=== PATIENT | female | born 1995 | race Caucasian/White ===

== ENCOUNTER 2023-01-20 20:14 | Outpatient (REF) | payer OTHER, SELFPAY ==
[2023-01-24 09:09] LABS: Age Gdln ACOG Testing Note (.); IGP, rfx Aptima HPV ASCU Note (.)
== END 2023-01-20 20:15 | disposition home or self-care (01) ==
LOC: LAB 20:14
PROVIDERS: PCP Family Medicine; Visit Provider Obstetrics & Gynecology
DX: Z12.4 Encounter for screening for malignant neoplasm of cervix (principal); Z11.51 Encounter for screening for human papillomavirus (HPV)
CPT/HCPCS: G0145

== ENCOUNTER 2023-02-04 13:58 | Outpatient (OUT) | payer OTHER, SELFPAY ==
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
--- NOTE | 2023-02-04 14:04 | US_ITS ---
The [address] [address] Patient Name: KISHAN RAMSEY MRN: [id number] date: 1995 Sex: F Assigned Patient Location: [place] Current Patient Location: [place] Accession/Order Number: [id number] Exam Date: 02/04/2023 14:05 Report Date: 02/04/2023 15:32 At the request of: CLAUDE KHAN Procedure: US abdomen limited EXAM: US abdomen limited HISTORY: Low back pain M54.50, right side lump COMPARISON: None. TECHNIQUE: Real-time right lower back ultrasound. Findings: Within the subcutaneous fat of the right lower back there is a 3.3 x 0.5 x 3.0 cm echogenic and heterogeneous lesion with similar architecture to the adjacent subcutaneous fat. No significant interval blood flow. US/US abdomen limited IMPRESSION: 1. Sonographic findings suggest a possible lipoma. If clinical findings are not consistent with a lipoma or there has been rapid increase in size or new pain in this area, recommend further characterization with MR without and with intravenous contrast. Electronically authenticated by: MANISH LUJAN Date: 02/04/2023 15:32
== END 2023-02-04 13:59 | disposition home or self-care (01) ==
LOC: US 13:58
PROVIDERS: PCP Family Medicine; Visit Provider Nurse Practitioner Family
DX: M54.2 Cervicalgia (principal); M54.50 Low back pain, unspecified
CPT/HCPCS: 72040; 76705

== ENCOUNTER 2023-02-16 12:42 | Outpatient (RCR) | payer OTHER, SELFPAY | END 2023-03-12 15:37 | disposition home or self-care (01) | LOC: PT 12:42 | PROVIDERS: PCP Family Medicine; Visit Provider Nurse Practitioner Family | DX: M54.2 Cervicalgia (principal) | CPT/HCPCS: 97110; 97140; 97161 ==

== ENCOUNTER 2023-12-13 10:41 | Emergency (ER) | payer OTHER, SELFPAY ==
[2023-12-13 10:49] VITALS: BP 118/71; PULSE 90; TEMP 36.8; O2SAT 99; BMI 25.8
--- OUTSIDE RECORDS SUMMARY | 2023-12-13 10:53 | XMS_ITS | CCD ---
Author Organization [facility] Care Team Providers Care Housing Installer Name Role Phone KIM SUTHERLAND Unavailable Unavailable WILLY CONKLIN Unavailable Unavailable HOMAR LEWIS Unavailable Unavailable HOMAR LEWIS Unavailable Unavailable No, Physician Primary Care Provider Unavailabl e FINN, PHYSICIAN Primary Care Unavailable JAMES ALCAZAR Attending Unavailable Unavailable Primary Care Provider Unavailabl e Queta Osorio DO Primary Care Provider Bret Long Unavailable RICE RICE, QUETA QUETA M~[id number] Attending Unavailable RICE RICE, QUETA QUETA M~[id number] Primary Ca re Unavailable RICE RICE, QUETA QUETA M~[id number] Attending Unavailable RICE RICE, QUETA QUETA M~[id number] Primary Ca re Unavailable RICE RICE, QUETA QUETA M~[id number] Attending Unavailable RICE RICE, QUETA QUETA M~[id number] Primary Ca re Unavailable RICE RICE, QUETA QUETA M~[id number] Attending Unavailable RICE RICE, QUETA QUETA M~[id number] Primary Ca re Unavailable RICE RICE, QUETA QUETA M~[id number] Referring Unavailable RICE RICE, QUETA QUETA M~[id number] Primary Ca re Unavailable ITA REYES Admitting Unavailable Marco Campos Consulting Unavailable ITA REYES Attending Unavailable HOY ., DR GRAF Primary Care Unavailable ITA REYES Consulting Unavailable HOY ., DR GRAF Primary Care Unavailable HOY ., DR GARF Admitting Unavailable HOY ., DR GRAF Attending Unavailable HOY ., DR GRAF Primary Care Unavailable HOY ., DR GRAF Admitting Unavailable HOY ., DR GRAF Attending Unavailable HOY ., DR GRAF Consulting Unavailable HOY ., DR GRAF Primary Care Unavailable HOY ., DR GRAF Consulting Unavailable HOY ., DR GRAF Admitting Unavailable HOY ., DR GRAF Attending Unavailable HOY ., DR GRAF Primary Care Unavailable HOY ., DR GRAF Consulting Unavailable HOY ., DR GRAF Admitting Unavailable HOY ., DR GRAF Attending Unavailable HOY ., DR GRAF Primary Care Unavailable HOY ., DR GRAF Admitting Unavailable HOY ., DR GRAF Attending Unavailable HOY ., DR GRAF Consulting Unavailable HOY ., DR GRAF Admitting Unavailable HOY ., DR GRAF Attending Unavailable HOY ., DR GRAF Consulting Unavailable HOY ., DR GRAF Primary Care Unavailable CLAUDE KHAN Primary Care Physician Gary MORRIS Attending Unavailable Alexandr Bourgeois Attending Unavailab Alexandr Ventura Admitting Unavailab Homar Mcgowan Primary Care Unavailable Allergies Allergy Classification Reported Allergen(s) Allergy Type Date of Onset Reaction(s) Facility (1 source) No Known Medication Allergies; Translations: [No Known Medication Allergies] Propensity to adverse reactions (disorder) [facility] Medications Current Medications Medication Drug Class(es) Dates Sig (Normalized) Sig (Original) busPIRone hydrochloride 10 mg oral tablet (5 sources) Start: 12-11-2021 End: 02-09-2022 take 1 tablet by mouth three times daily busPIRone (BUSPAR) 10 mg tablet Indications: Anxiety Take 1 tablet (10 mg total) by mouth 3 (three) times a day. 90 each 1 12/11/2021 Active Start: 11-27-2021 End: 01-26-2022 take 1 tablet by mouth twice daily busPIRone (BUSPAR) 10 mg tablet Indications: Anxiety Take 1 tablet (10 mg total) by mouth 2 (two) times a day. 60 each 1 11/27/2021 01/26/2022 Active dicyclomine hydrochloride 10 mg oral capsule (5 sources) Anticholinergic Start: 02-27-2023 Bentyl 10 mg C ap Refills(s) 0 Start Date: 02/27/23 Status: Ordered Start: 08-10-2021 take 1 tablet by peter th three times daily, then take 1 tablet by mouth three times daily dicyclomine (BENTYL) 20 mg tablet Take 1 tablet by mouth 3 (three) times a day. Take 1 Tablet three times a day for cramping 0 08/10/2021 Active hyoscyamine sulfate 0.125 mg oral tablet (5 sources) Start: 02-27-2023 Levsin 0.125 m g SL Tab Refills(s) 0 Start Date: 02/27/23 Status: Ordered Start: 02-02-2021 hyoscyamine (L EVSIN) 0.[address] 1 tablet under the tongue 4 (four) times a day. 0 02/02/2021 Active take 1 tablet under the tongue four times daily as needed Hyoscyamine Sulfate SL 0.125 MG 1 tablet under the tongue and allow to dissolve as needed Sublingual qid Active ibuprofen 800 mg oral tablet (4 sources) Nonsteroidal Anti-inflammatory Drug Start: 02-19-2017 take 1 tablet by mouth every eight hours ibuprofen (ADVIL,MOTRIN) 800 mg tablet Take 1 tablet by mouth every 8 (eight) hours if needed. 0 02/19/2017 Active Norethindrone (1 source) Start: 11-16-2020 norethindrone (MICRONOR) 0.35 mg tablet ondansetron 4 mg oral tablet (6 sources) Serotonin-3 Receptor Antagonist Start: 02-27-2023 Zofran 4 mg Tab Refills(s) 0 Start Date: 02/27/23 Status: Ordered Start: 12-05-2021 End: 01-19-2022 take 2 tablets by mouth every eight hours for nausea ondansetron ODT (ZOFRAN-ODT) 4 mg dispersible tablet Take 2 tablets (8 mg total) by mouth every 8 (eight) hours if needed for nausea. 20 tablet 0 01/20/2022 Active take 1 tablet by peter th every eight hours as needed Ondansetron 8 MG 1 tablet on the tongue and allow to dissolve Orally q8h prn Active sertraline 25 mg oral tablet (3 sources) Serotonin Reuptake Inhibitor Start: 01-08-2022 End: 03-09-2022 take 1 tablet by mouth once daily sertraline (ZOLOFT) 25 mg tablet Indications: Anxiety Take 1 tablet (25 mg total) by mouth 1 (one) time each day. 30 each 1 01/08/2022 03/09/2022 Active valACYclovir 1000 mg oral tablet (1 source) Herpesvirus Nucleoside Analog DNA Polymerase Inhibitor, Herpes Simplex Virus Nucleoside Analog DNA Polymerase Inhibitor, Herpes Zoster Virus Nucleoside Analog DNA Polymerase Inhibitor Start: 12-05-2020 End: 12-15-2020 take 1 tablet by mouth twice daily valACYclovir (Valtrex) 1000 MG tablet Take 1 (one) tablet (1,000 mg total) by mouth 2 (two) times a day for 10 days . 20 tablet 0 12/05/2020 12/15/2020 Active Problems Active Problems Problem Classification Problem Date Documented Da te Episodic/Chronic Anxiety disorders (5 sources) Anxiety; Translations: [Anxiety disorder, unspecified] Onset: 11-13-2022 Chronic Deficiency and other anemia (1 source) Anemia, unspecified; Translations: [ANEMIA UNSPECIFIED] Onset: 11-13-2022 Episodic Diabetes mellitus without complication (1 source) Other abnormal glucose; Translations: [OTHER ABNORMAL GLUCOSE] Onset: 11-13-2022 Episodic Headache; including migraine (2 sources) Migraine, unspecified, not intractable, without status migrainosus; Translations: [Migraine] Onset: 11-13-2022 02-23-2023 Chronic Malaise and fatigue (1 source) Other fatigue; Translations: [OTHER FATIGUE] Onset: 11-13-2022 Episodic Other and unspecified benign neoplasm (1 source) Lipoma of skin and subcutaneous tissue of trunk; Translations: [Benign lipomatous neoplasm of skin and subcutaneous tissue of trunk] Onset: 02-27-2023 Episodic Other and unspecified benign neoplasm (1 source) Lipoma of lower back 02-27-2023 Episodic Other circulatory disease (1 source) Low blood pressure; Translations: [Hypotension, unspecified] Episodic Other female genital disorders (1 source) Vaginal lesion; Translations: [Other specified noninflammatory disorders of vagina] Episodic Other gastrointestinal disorders (1 source) Irritable bowel syndrome with diarrhea; Translations: [Irritable bowel syndrome with diarrhea] Chronic Other gastrointestinal disorders (1 source) Irritable bowel syndrome with diarrhea Onset: 12-10-2021 Resolved: 12-10-2021 Chronic Other nutritional; endocrine; and metabolic disorders (1 source) Overweight 02-23-2023 Episodic Other nutritional; endocrine; and metabolic disorders (1 source) Overweight in adulthood with body mass index of 25 or more but less than 30 02-27-2023 Episodic Other upper respiratory infections (5 sources) Acute recurrent frontal sinusitis; Translations: [ACUTE RECURRENT FRONTAL SINUSITIS] Onset: 05-28-2022 Episodic Residual codes; unclassified (1 source) Chronic pain 02-23-2023 Episodic Residual codes; unclassified (1 source) Insomnia 02-23-2023 Episodic Spondylosis; intervertebral disc disorders; other back problems (1 source) Neck pain 02-23-2023 Episodic Unclassified (4 sources) CONTACT W/AND (SUSP) EXPOS COVID-19; Translations: [CONTACT W/AND (SUSP) EXPOS COVID-19] Onset: 08-12-2022 Unclassified (3 sources) LOW BACK PAIN, UNSPECIFIED; Translations: [LOW BACK PAIN, UNSPECIFIED] Onset: 05-26-2022 Past or Other Problems Problem Classification Problem Date Documented Da te Episodic/Chronic Abdominal pain (1 source) Epigastric pain Onset: 12-10-2021 Resolved: 12-10-2021 Episodic Nausea and vomiting (1 source) Nausea Onset: 12-10-2021 Resolved: 12-10-2021 Episodic Nonspecific chest pain (1 source) Other chest pain; Translations: [Other chest pain] Onset: 02-19-2017 Episodic Other non-traumatic joint disorders (4 sources) Pain in left knee; Translations: [PAIN IN LEFT KNEE] Onset: 04-24-2022 Episodic Residual codes; unclassified (1 source) Family history of other specified conditions Onset: 12-10-2021 Resolved: 12-10-2021 Episodic Residual codes; unclassified (1 source) Insomnia, unspecified; Translations: [INSOMNIA UNSPECIFIED] Onset: 04-27-2022 Episodic Residual codes; unclassified (1 source) Carrier of cystic fibrosis gene mutation Onset: 12-31-2016 02-23-2023 Episodic Residual codes; unclassified (1 source) History of pre-eclampsia Onset: 08-31-2019 02-23-2023 Episodic Unclassified (1 source) CONTACT W/AND (SUSP) EXPOS COVID-19; Translations: [CONTACT W/AND (SUSP) EXPOS COVID-19] Onset: 08-14-2022 Unclassified (1 source) LOW BACK PAIN, UNSPECIFIED; Translations: [LOW BACK PAIN, UNSPECIFIED] Onset: 05-22-2022 Results Test Name Value Interpretation Reference Range Facility Facesheeton 03-02-2023 Facesheet [id number] CD:127 Normal [facility] Ambulatory Visit Summaryon 0 02-27-2023 Ambulatory Visit Summary LESLIE FORD :1995 Visit Date:02/27/2023 Ambulatory Visit Instructions Your Care Team Attending Physician - ALEXANDRA RANGEL, Gary Howell Primary Care Physician - CLAUDE KHAN CNP This Is Your Medications List Contact prescribing physician if questions or concerns dicyclomine (Bentyl 10 mg Cap) hyoscyamine (Levsin 0.125 mg SL Tab) ondansetron (Zofran 4 mg Tab) Procedures Performed None. Discharge Vitals Heart Rate (Peripheral) 70 Respiratory Rate 16 Blood Pressure 106/66 Height 165.1 cm Height 65 in Weight 75.1 kg Weight 165.22 lb BMI 27.55 Medications What When Instructions Unchanged dicyclomine (Bentyl 10 mg Cap) Contact prescribing physician if questions or concerns Unchanged hyoscyamine (Levsin 0.125 mg SL Tab) Contact prescribing physician if questions or concerns Unchanged ondansetron (Zofran 4 mg Tab) Contact prescribing physician if questions or concerns Allergies No Known Allergies No Known Medication Allergies Problems Ongoing - Any problem that you are currently receiving treatment for. Anxiety BMI 27.0-27.9,adult Carrier of cystic fibrosis gene mutation Cervicalgia Chronic pain History of pre-eclampsia Insomnia Migraines Overweight Normal [facility] RAD - Ultrasound Reporton RAD - Ultrasound Report [id number] D:127 Normal [facility] Physician Referralon 023 Physician Referral [id number] D:127 Normal [facility] INSULINon 11-08-2022 Insulin 7.7 uIU/mL Normal 2.6-24.9 [facility] Comment on above: Performed By: #### V ITAD, IRON #### [facility] [address] [place] [address] Dr. Chucho Jesus CBC AUTO DIFFon 11-07-2022 BASO # 0.0 103/ul Normal 0.0-0.1 [facility] Comment on above: Performed By: #### V ITAD, IRON #### [facility] [address] [place] [address] Dr. Chucho Jesus Basophils/100 WBC (Bld) 0.6 % Normal 0.2-2.0 [facility] Comment on above: Performed By: #### V ITAD, IRON #### [facility] [address] [place] [address] Dr. Chucho Jesus EO # 0.1 103/ul Normal 0.0-0.7 [facility] Comment on above: Performed By: #### V ITAD, IRON #### [facility] [address] [place] [address] Dr. Chucho Jesus Eosinophils/100 WBC (Bld) 1.4 % Normal 0.9-7.0 [facility] Comment on above: Performed By: #### V ITAD, IRON #### [facility] [address] [place] [address] Dr. Chucho Jesus Erythrocyte distribution width (RBC) [Ratio] 13.9 % Normal 11.0-15.0 [facility] Comment on above: Performed By: #### V ITAD, IRON #### [facility] [address] [place] [address] Dr. Chucho Jesus Hematocrit (Bld) [Volume fraction] 45.6 % Normal 36.0-48.0 [facility] Comment on above: Performed By: #### V ITAD, IRON #### [facility] [address] [place] [address] Dr. Chucho Jesus Hemoglobin (Bld) [Mass/Vol] 15.1 g/dL Normal 12.0-16.0 [facility] Comment on above: Performed By: #### V ITAD, IRON #### [facility] [address] [place] [address] Dr. Chucho Jesus IG # 0.01 10e3/ul Normal 0.00-0.03 [facility] Comment on above: Performed By: #### V ITAD, IRON #### [facility] [address] [place] [address] Dr. Chucho Jesus IG % 0.1 % Normal 0.0-0.5 [facility] Comment on above: Performed By: #### V ITAD, IRON #### [facility] [address] [place] [address] Dr. Chucho Jesus LYMPH # 1.9 103/ul Normal 1.2-3.8 [facility] Comment on above: Performed By: #### V ITAD, IRON #### [facility] [address] [place] [address] Dr. Chucho Jesus Lymphocytes/100 WBC (Bld) 26.3 % Normal 20.5-60.0 [facility] Comment on above: Performed By: #### V ITAD, IRON #### [facility] [address] [place] [address] Dr. Chucho Jesus MANUAL DIFF REQ NO Normal [facility] Comment on above: Performed By: #### V ITAD, IRON #### [facility] [address] [place] [address] Dr. Chucho Jesus MCH (RBC) [Entitic mass] 27.9 pg Normal 26.7-34.0 [facility] Comment on above: Performed By: #### V ITAD, IRON #### [facility] [address] [place] [address] Dr. Chucho Jesus MCHC (RBC) [Mass/Vol] 33.1 g/dL Normal 29.9-35.2 [facility] Comment on above: Performed By: #### V ITAD, IRON #### [facility] [address] [place] [address] Dr. Chucho Jesus MCV (RBC) [Entitic vol] 84.1 fL Normal 81.0-99.0 [facility] Comment on above: Performed By: #### V ITAD, IRON #### [facility] [address] [place] [address] Dr. Chucho Jesus MONO # 0.5 103/ul Normal 0.3-0.8 [facility] Comment on above: Performed By: #### V ITAD, IRON #### [facility] [address] [place] [address] Dr. Chucho Jesus Monocytes/100 WBC (Bld) 7.3 % Normal 1.7-12.0 [facility] Comment on above: Performed By: #### V ITAD, IRON #### [facility] [address] [place] [address] Dr. Chucho Jesus NEUT # 4.6 103/ul Normal 1.4-6.5 [facility] Comment on above: Performed By: #### V ITAD, IRON #### [facility] [address] [place] [address] Dr. Chucho Jesus Neutrophils/100 WBC (Bld) 64.3 % Normal 43.0-75.0 [facility] Comment on above: Performed By: #### V ITAD, IRON #### [facility] [address] [place] [address] Dr. Chucho Jesus Platelet mean volume (Bld) [Entitic vol] 10.9 fL Normal 9.5-13.5 [facility] Comment on above: Performed By: #### V ITAD, IRON #### [facility] [address] [place] [address] Dr. Chucho Jesus PLT 226 103/ul Normal 150-450 [facility] Comment on above: Performed By: #### V ITAD, IRON #### [facility] [address] [place] [address] Dr. Chucho Jesus RBC 5.42 106/ul Critically high 4.20-5.40 [facility] Comment on above: Performed By: #### V ITAD, IRON #### [facility] [address] [place] [address] Dr. Chucho eJsus WBC 7.2 103/ul Normal 4.0-11.0 [facility] Comment on above: Performed By: #### V ITAD, IRON #### [facility] [address] [place] [address] Dr. Chucho Jesus FREE THYROXINE INDEX T7on FTI 3.29 Normal 1.30-4.50 [facility] Comment on above: Performed By: #### V ITAD, IRON #### [facility] [address] [address] [address] Chucho Jesus T3U 35.0 % Normal 30.0-39.0 [facility] Comment on above: Performed By: #### V ITAD, IRON #### [facility] [address] [address] [address] Chucho Jesus T4 [Mass/Vol] 9.40 ug/dL Normal 4.80-13.90 [facility] Comment on above: Performed By: #### V ITAD, IRON #### [facility] [address] [address] [address] Chucho Jesus GLYCOHEMOGLOBIN A1Con 2022 ADA RECOMMENDATION SEE BELOW Normal [facility] Comment on above: Result Comment: ADA RECOMMENDED LIMIT 4.0 - 6.0 ADA THERAPEUTIC TARGET < 7.0 ACTION SUGGESTED > 7.0 Performed By: #### A 1C #### [facility] [address] [address] [address] Chucho Jesus Glucose [Mass/Vol] 94 mg/dL Normal [facility] Comment on above: Performed By: #### A 1C #### [facility] [address] [address] [address] Chucho Jesus HbA1c (Bld) [Mass fraction] 4.9 % Normal 4.5-6.2 [facility] Comment on above: Performed By: #### A 1C #### [facility] [address] [address] [address] Chucho Jesus IRONon 11-07-2022 Iron [Mass/Vol] 81.0 ug/dL Normal 50.0-170.0 [facility] Comment on above: Performed By: #### V ITAD, IRON #### [facility] [address] [address] [address] Chucho Jesus LIPID PROFILEon 11-07-2022 CHOL-HDL RATIO NORM SEE BELOW Normal [facility] Comment on above: Result Comment: 3.3 - 4.4 LOW RISK 4.4 - 7.1 AVERAGE RISK 7.1 - 11.0 MODERATE RISK >11.0 HIGH RISK Performed By: #### V ITAD, IRON #### [facility] [address] [address] [address] Chucho Jesus Cholesterol [Mass/Vol] 126 mg/dL Normal <=200 [facility] Comment on above: Performed By: #### V ITAD, IRON #### [facility] [address] [address] [address] Chucho Jesus Cholesterol in HDL [Mass/Vol] 38 mg/dL Critically low 40-60 [facility] Comment on above: Performed By: #### V ITAD, IRON #### [facility] [address] [address] [address] Chucho Jesus Cholesterol in LDL [Mass/Vol] 79.4 mg/dL Normal [facility] Comment on above: Performed By: #### V ITAD, IRON #### [facility] [address] [address] [address] Chucho Jesus Cholesterol.total/C holesterol in HDL [Mass ratio] 3.3 {ratio} Normal [facility] Comment on above: Performed By: #### V ITAD, IRON #### [facility] [address] [address] [address] Chucho Jesus HDL NORMAL > or = 60 mg/dl - LO W CARDIOVASCULAR RISK <40 mg/dl - HIGH CARDIOVASCULAR RISK Normal [facility] Comment on above: Performed By: #### V ITAD, IRON #### [facility] [address] [address] [address] Chucho Jesus LDL CALC NORMAL SEE BELOW Normal [facility] Comment on above: Result Comment: <100 mg/dl OPTIMAL 100 - 129 mg/dl NEAR OR ABOVE OPTIMAL 130 - 159 mg/dl BORDERLINE HIGH 160 - 189 mg/dl HIGH >190 mg/dl VERY HIGH Performed By: #### V ITAD, IRON #### [facility] [address] [address] [address] Chucho Jesus Triglyceride [Mass/Vol] 43 mg/dL Normal <=150 [facility] Comment on above: Performed By: #### V ITAD, IRON #### [facility] [address] [place] [address] Dr. Chucho Jesus VLDL CALC 8.6 mg/dL Normal [facility] Comment on above: Performed By: #### V ITAD, IRON #### [facility] [address] [place] [address] Dr. Chucho Jesus PROF 14(COMP METB)on 023 Albumin [Mass/Vol] 4.2 g/dL Normal 3.4-5.0 [facility] Comment on above: Performed By: #### V ITAD, IRON #### [facility] [address] [place] [address] Dr. Chucho Jesus Albumin/Globulin [Mass ratio] 1.1 {ratio} Normal [facility] Comment on above: Performed By: #### V ITAD, IRON #### [facility] [address] [place] [address] Dr. Chucho Jesus ALP [Catalytic activity/Vol] 93 U/L Normal 46-116 [facility] Comment on above: Performed By: #### V ITAD, IRON #### [facility] [address] [place] [address] Dr. Chucho Jesus ALT [Catalytic activity/Vol] 16 U/L Normal 14-59 [facility] Comment on above: Performed By: #### V ITAD, IRON #### [facility] [address] [place] [address] Dr. Chucho Jesus Anion gap [Moles/Vol] 14.3 mmol/L Normal [facility] Comment on above: Performed By: #### V ITAD, IRON #### [facility] [address] [place] [address] Dr. Chucho Jesus AST [Catalytic activity/Vol] 16 U/L Normal 15-37 [facility] Comment on above: Performed By: #### V ITAD, IRON #### [facility] [address] [place] [address] Dr. Chucho Jesus Bilirubin [Mass/Vol] 1.0 mg/dL Normal 0.2-1.0 [facility] Comment on above: Performed By: #### V ITAD, IRON #### [facility] [address] [place] [address] Dr. Chucho Jesus Calcium [Mass/Vol] 9.4 mg/dL Normal 8.5-10.1 [facility] Comment on above: Performed By: #### V ITAD, IRON #### [facility] [address] [place] [address] Dr. Chucho Jesus Chloride [Moles/Vol] 103 mmol/L Normal 98-107 [facility] Comment on above: Performed By: #### V ITAD, IRON #### [facility] [address] [place] [address] Dr. Chucho Jesus CO2 [Moles/Vol] 24.9 mmol/L Normal 21.0-32.0 [facility] Comment on above: Performed By: #### V ITAD, IRON #### [facility] [address] [place] [address] Dr. Chucho Jesus Creatinine [Mass/Vol] 0.68 mg/dL Normal 0.55-1.02 [facility] Comment on above: Performed By: #### V ITAD, IRON #### [facility] [address] [place] [address] Dr. Chucho Jesus EGFR-AF LIBYAN >60 Normal >=60 [facility] Comment on above: Performed By: #### V ITAD, IRON #### [facility] [address] [place] [address] Dr. Chucho Jesus EGFR-NON AF LIBYAN >60 Normal >=60 [facility] Comment on above: Performed By: #### V ITAD, IRON #### [facility] [address] [place] [address] Dr. Chucho Jesus Globulin (S) [Mass/Vol] 3.9 g/dL Normal [facility] Comment on above: Performed By: #### V ITAD, IRON #### [facility] [address] [place] [address] Dr. Chucho Jesus Glucose [Mass/Vol] 89 mg/dL Normal 74-106 [facility] Comment on above: Performed By: #### V AMAURY, IRON #### [facility] [address] [place] [address] Dr. Chucho Jesus Potassium [Moles/Vol] 4.2 mmol/L Normal 3.5-5.1 [facility] Comment on above: Performed By: #### V ITAD, IRON #### [facility] [address] [place] [address] Dr. Chucho Jesus Protein [Mass/Vol] 8.1 g/dL Normal 6.4-8.2 [facility] Comment on above: Performed By: #### V AMAURY, IRON #### [facility] [address] [place] [address] Dr. Chucho Jesus Sodium [Moles/Vol] 138 mmol/L Normal 136-145 [facility] Comment on above: Performed By: #### V AMAURY, IRON #### [facility] [address] [place] [address] Dr. Chucho Jesus Urea nitrogen [Mass/Vol] 9.0 mg/dL Normal 7.0-18.0 [facility] Comment on above: Performed By: #### V AMAURY, IRON #### [facility] [address] [place] [address] Dr. Chucho Jesus Urea nitrogen/Creatinine [Mass ratio] 13.2 mg/mg Normal [facility] Comment on above: Performed By: #### V AMAURY, IRON #### [facility] [address] [place] [address] Dr. Chucho Jesus TSHon 11-07-2022 TSH 1.668 uIU/mL Normal 0.358-3.740 [facility] Comment on above: Performed By: #### V ITSONIYA, IRON #### [facility] [address] [place] [address] Dr. Chucho Jesus [facility]19 [facility]on SARS-CoV-2 (COVID-19) RNA DMITRY+probe Ql (Unsp spec) Not detected Normal NOT DETECTED [facility] Comment on above: Result Comment: When diagnostic testing is negative, the possibility of a false negative should be considered in the context of a patient's recent exposures and the presence of clinical signs and symptoms consistent with SARS-CoV-2. This test is not yet approved or cleared by the [place] FDA. When there are no FDA-approved or cleared tests available, and other criteria are met, FDA can make tests available under an emergency access mechanism called an Emergency Use Authorization (EUA). The EUA for this test is supported by the [place] of Health and Human Service's declaration that circumstances exist to justify the emergency use of in vitro diagnostics for the detection and/or diagnosis of the virus that causes COVID-19. This EUA will remain in effect for the duration of the COVID-19 declaration justifying emergency of IVDs, unless it is terminated or revoked by the FDA (after which the test may no longer be used). Performed By: #### V ITAD, IRON #### [facility] [address] [place] [address] Dr. Chucho Jesus Covid-19 PCR ([facility])on SARS-CoV-2 (COVID-19) RNA DMITRY+probe Ql (Unsp spec) Not detected Normal NOT DETECTED [facility] Comment on above: Result Comment: When diagnostic testing is negative, the possibility of a false negative should be considered in the context of a patient's recent exposures and the presence of clinical signs and symptoms consistent with SARS-CoV-2. This test is not yet approved or cleared by the [place] FDA. When there are no FDA-approved or cleared tests available, and other criteria are met, FDA can make tests available under an emergency access mechanism called an Emergency Use Authorization (EUA). The EUA for this test is supported by the [place] of Health and Human Service's declaration that circumstances exist to justify the emergency use of in vitro diagnostics for the detection and/or diagnosis of the virus that causes COVID-19. This EUA will remain in effect for the duration of the COVID-19 declaration justifying emergency of IVDs, unless it is terminated or revoked by the FDA (after which the test may no longer be used). Performed By: #### C VDTBH #### [facility] [address] [place] [address] Dr. Chucho Jesus INFLUENZA A AND B AGon 08-11 [facility] SEE BELOW Normal [facility] Comment on above: Result Comment: Nega tive for Flu A protein angiten. Infection due to Flu A cannot be ruled out. Flu A angiten in the sample may be below the detection limit of the test. Performed By: #### I NFLUAB #### [facility] [address] [place] [address] Dr. Chucho Jesus INFLUBNEG SEE BELOW Normal [facility] Comment on above: Result Comment: Nega tive for Flu B protein antigen. Infection due to Flu B cannot be ruled out. Flu B antigen in the sample may be below the detection limit of the test. Performed By: #### I NFLUAB #### [facility] [address] [place] [address] Dr. Chucho Jesus INFLUENZA A AG Negative Normal NEGATIVE SEE COMMENT [facility] Comment on above: Performed By: #### I NFLUAB #### [facility] [address] [place] [address] Dr. Chucho Jesus INFLUENZA B AG Negative Normal NEGATIVE SEE COMMENT [facility] Comment on above: Performed By: #### I NFLUAB #### [facility] [address] [place] [address] Dr. Chucho Jesus Covid-19 PCR ([facility])on 05-07 SARS-CoV-2 (COVID-19) RNA DMITRY+probe Ql (Unsp spec) Not detected Normal NOT DETECTED [facility] Comment on above: Result Comment: When diagnostic testing is negative, the possibility of a false negative should be considered in the context of a patient's recent exposures and the presence of clinical signs and symptoms consistent with SARS-CoV-2. This test is not yet approved or cleared by the [place] FDA. When there are no FDA-approved or cleared tests available, and other criteria are met, FDA can make tests available under an emergency access mechanism called an Emergency Use Authorization (EUA). The EUA for this test is supported by the [employer] of Health and Human Service's declaration that circumstances exist to justify the emergency use of in vitro diagnostics for the detection and/or diagnosis of the virus that causes COVID-19. This EUA will remain in effect for the duration of the COVID-19 declaration justifying emergency of IVDs, unless it is terminated or revoked by the FDA (after which the test may no longer be used). Performed By: #### V ITAD, IRON #### [facility] [address] [place] [address] Dr. Chucho Jesus INFLUENZA A AND B AGon 05-26 INFLUANEGH SEE BELOW Normal [facility] Comment on above: Result Comment: Nega tive for Flu A protein angiten. Infection due to Flu A cannot be ruled out. Flu A angiten in the sample may be below the detection limit of the test. Performed By: #### V ITAD, IRON #### [facility] [address] [place] [address] Dr. Chucho Jesus INFLUBNEGH SEE BELOW Normal [facility] Comment on above: Result Comment: Nega tive for Flu B protein antigen. Infection due to Flu B cannot be ruled out. Flu B antigen in the sample may be below the detection limit of the test. Performed By: #### V ITAD, IRON #### [facility] [address] [place] [address] Dr. Chucho Jesus INFLUENZA A AG Negative Normal NEGATIVE SEE COMMENT [facility] Comment on above: Performed By: #### V ITAD, IRON #### [facility] [address] [place] [address] Dr. Chucho Jesus INFLUENZA B AG Negative Normal NEGATIVE SEE COMMENT [facility] Comment on above: Performed By: #### V ITAD, IRON #### [facility] [address] [place] [address] Dr. Chucho Jesus INTERNAL CONTROLS Within Normal Limits Normal Wi thin Normal Limits [facility] Comment on above: Performed By: #### V ITAD, IRON #### [facility] [address] [place] [address] Dr. Chucho Jesus ER URINE PROFILEon 2 Bilirubin Ql (U) Negative Normal NEGATIVE [facility] Comment on above: Performed By: #### V ITAD, IRON #### [facility] [address] [address] [address] Chucho Jesus Clarity (U) CLEAR Normal CLEAR [facility] Comment on above: Performed By: #### V ITAD, IRON #### [facility] [address] [place] [address] Dr. Chucho Jesus Color (U) YELLOW Normal YELLOW [facility] Comment on above: Performed By: #### V ITAD, IRON #### [facility] [address] [place] [address] Dr. Chucho BAHENA A micrscopic examination will be performed if indicated. Normal [facility] Comment on above: Performed By: #### V ITAD, IRON #### [facility] [address] [place] [address] Dr. Chucho Jesus Glucose Ql (U) Negative Normal NEGATIVE The [facility] Comment on above: Performed By: #### V ITAD, IRON #### [facility] [address] [place] [address] Dr. Chucho Jesus Hemoglobin Ql (U) Negative Normal NEGATIVE [facility] Comment on above: Performed By: #### V ITAD, IRON #### [facility] [address] [place] [address] Dr. Chucho Jesus Ketones Ql (U) >=80 Abnormal NEGATIVE The [facility] Comment on above: Performed By: #### V ITAD, IRON #### [facility] [address] [place] [address] Dr. Chucho Jesus LEUKOCYTES Negative Normal NEGATIVE [facility] Comment on above: Performed By: #### V ITAD, IRON #### [facility] [address] [place] [address] Dr. Chucho Jesus Nitrite Ql (U) Negative Normal NEGATIVE [facility] Comment on above: Performed By: #### V ITAD, IRON #### [facility] [address] [place] [address] Dr. Chucho Jesus pH (U) 6.0 [pH] Normal 5-9 [facility] Comment on above: Performed By: #### V ITAD, IRON #### [facility] [address] [address] [address] Chucho Jesus Protein (U) [Mass/Vol] 100 mg/dL Abnormal NEGATIVE/ TRACE [facility] Comment on above: Performed By: #### V ITAD, IRON #### [facility] [address] [place] [address] Dr. Chucho Jesus SPEC GRAVITY >=1.030 Abnormal 1.005-<=1.025 [facility] Comment on above: Performed By: #### V ITAD, IRON #### [facility] [address] [place] [address] Dr. Chucho Jesus UR MICRO IND INDICATED Normal [facility] Comment on above: Performed By: #### V ITAD, IRON #### [facility] [address] [place] [address] Dr. Chucho Jesus Urobilinogen Qn (U) 0.2 {[place]'U}/dL Normal 0.2 - 1. 0 [facility] Comment on above: Performed By: #### V ITAD, IRON #### [facility] [address] [place] [address] Dr. Chucho Jesus URon 05-22-2022 , QUAL Negative Normal NEGATIVE [facility] Comment on above: Performed By: #### V ITAD, IRON #### [facility] [address] [place] [address] Dr. Chucho Jesus URINE MICROSCOPIC ONLYon BACTERIA NONE SEEN Normal NONE SEEN [facility] Comment on above: Performed By: #### V ITAD, IRON #### [facility] [address] [place] [address] Dr. Chucho Jesus Bacteria identified Cx Nom (U) NOT INDICATED Normal [facility] Comment on above: Performed By: #### V ITAD, IRON #### [facility] [address] [place] [address] Dr. Chucho Jesus CAST NONE SEEN Normal NONE SEEN [facility] Comment on above: Performed By: #### V ITAD, IRON #### [facility] [address] [place] [address] Dr. Chucho Jesus Crystals LM Nom (Urine sed) NONE SEEN Normal NONE SEEN [facility] Comment on above: Performed By: #### V ITAD, IRON #### [facility] [address] [address] [address] Chucho Jesus Epithelial cells LM Ql (Urine sed) FEW Abnormal NONE SEEN /RARE [facility] Comment on above: Performed By: #### V ITAD, IRON #### [facility] [address] [address] [address] Chucho Jesus MUCOUS MODERATE Abnormal NONE SEEN [facility] Comment on above: Performed By: #### V ITAD, IRON #### [facility] [address] [place] [address] Dr. Chucho Jesus RBC NONE SEEN Abnormal 0-2 [facility] Comment on above: Performed By: #### V ITAD, IRON #### [facility] [address] [place] [address] Dr. Chucho Jesus WBC NONE SEEN Normal NONE SEEN [facility] Comment on above: Performed By: #### V ITAD, IRON #### [facility] [address] [place] [address] Dr. Chucho Jesus XR LSPINE 2_3 VIEWSon 2021 XR LSPINE 2_3 VIEWS EXAMINATION: XR LSPI NE 2_3 VIEWS HISTORY: Pain ; acute lumbar spine pain COMPARISON: CT abdomen pelvis 08/05/2021 FINDINGS: BONES: Mild left convex curvature of lumbar spine. No fracture, spondylolisthesis, bone lesion. DISC SPACES: No significant disc height narrowing, subluxation, or endplate abnormality. PARASPINOUS: Negative. No paraspinous abnormality is seen. OTHER: Negative. IMPRESSION: 1. No acute bone abnormality or significant degenerative disc disease. 2. Mild levocurvature of the lumbar spine; similar to prior CT study. Electronically authenticated by: MARCO CAMPOS Date: 2022-05-22 12:28 Normal [facility] INSULINon 04-25-2022 Insulin 10.4 uIU/mL Normal 2.6-24.9 [facility] Comment on above: Performed By: #### V ITAD, IRON #### [facility] [address] [address] [address] Chucho Jesus CBC AUTO DIFFon 04-24-2022 BASO # 0.0 103/ul Normal 0.0-0.1 [facility] Comment on above: Performed By: #### C BC #### [facility] [address] [place] [address] Dr. Chucho Jesus Basophils/100 WBC (Bld) 0.6 % Normal 0.2-2.0 [facility] Comment on above: Performed By: #### C BC #### [facility] [address] [place] [address] Dr. Chucho Jesus EO # 0.1 103/ul Normal 0.0-0.7 [facility] Comment on above: Performed By: #### C BC #### [facility] [address] [place] [address] Dr. Chucho Jesus Eosinophils/100 WBC (Bld) 1.8 % Normal 0.9-7.0 [facility] Comment on above: Performed By: #### C BC #### [facility] [address] [place] [address] Dr. Chucho Jesus Erythrocyte distribution width (RBC) [Ratio] 12.9 % Normal 11.0-15.0 [facility] Comment on above: Performed By: #### C BC #### [facility] [address] [place] [address] Dr. Chucho Jesus Hematocrit (Bld) [Volume fraction] 45.6 % Normal 36.0-48.0 [facility] Comment on above: Performed By: #### C BC #### [facility] [address] [place] [address] Dr. Chucho Jesus Hemoglobin (Bld) [Mass/Vol] 14.7 g/dL Normal 12.0-16.0 [facility] Comment on above: Performed By: #### C BC #### [facility] [address] [place] [address] Dr. Chucho Jesus IG # 0.02 10e3/ul Normal 0.00-0.03 [facility] Comment on above: Performed By: #### C BC #### [facility] [address] [place] [address] Dr. Chucho Jesus IG % 0.3 % Normal 0.0-0.5 [facility] Comment on above: Performed By: #### C BC #### [facility] [address] [place] [address] Dr. Chucho Jesus LYMPH # 1.6 103/ul Normal 1.2-3.8 [facility] Comment on above: Performed By: #### C BC #### [facility] [address] [place] [address] Dr. Chucho Jesus Lymphocytes/100 WBC (Bld) 24.5 % Normal 20.5-60.0 [facility] Comment on above: Performed By: #### C BC #### [facility] [address] [place] [address] Dr. Chucho Jesus MANUAL DIFF REQ NO Normal [facility] Comment on above: Performed By: #### C BC #### [facility] [address] [place] [address] Dr. Chucho Jesus MCH (RBC) [Entitic mass] 28.4 pg Normal 26.7-34.0 [facility] Comment on above: Performed By: #### C BC #### [facility] [address] [place] [address] Dr. Chucho Jesus MCHC (RBC) [Mass/Vol] 32.2 g/dL Normal 29.9-35.2 [facility] Comment on above: Performed By: #### C BC #### [facility] [address] [place] [address] Dr. Chucho Jessu MCV (RBC) [Entitic vol] 88.2 fL Normal 81.0-99.0 [facility] Comment on above: Performed By: #### C BC #### [facility] [address] [place] [address] Dr. Chucho Jesus MONO # 0.5 103/ul Normal 0.3-0.8 [facility] Comment on above: Performed By: #### C BC #### [facility] [address] [place] [address] Dr. Chucho Jesus Monocytes/100 WBC (Bld) 7.4 % Normal 1.7-12.0 [facility] Comment on above: Performed By: #### C BC #### [facility] [address] [place] [address] Dr. Chucho Jesus NEUT # 4.4 103/ul Normal 1.4-6.5 [facility] Comment on above: Performed By: #### C BC #### [facility] [address] [place] [address] Dr. Chucho Jesus Neutrophils/100 WBC (Bld) 65.4 % Normal 43.0-75.0 [facility] Comment on above: Performed By: #### C BC #### [facility] [address] [place] [address] Dr. Chucho Jesus Platelet mean volume (Bld) [Entitic vol] 9.9 fL Normal 9.5-13.5 [facility] Comment on above: Performed By: #### C BC #### [facility] [address] [place] [address] Dr. Chucho Jesus PLT 225 103/ul Normal 150-450 [facility] Comment on above: Performed By: #### C BC #### [facility] [address] [place] [address] Dr. Chucho Jesus RBC 5.17 106/ul Normal 4.20-5.40 [facility] Comment on above: Performed By: #### C BC #### [facility] [address] [place] [address] Dr. Chucho Jesus WBC 6.7 103/ul Normal 4.0-11.0 [facility] Comment on above: Performed By: #### C BC #### [facility] [address] [place] [address] Dr. Chucho Jesus FREE THYROXINE INDEX T7on FTI 3.29 Normal 1.30-4.50 [facility] Comment on above: Performed By: #### T 7, TSH, LIPID, CMP #### [facility] [address] [place] [address] Dr. Chucho Jesus T3U 27.0 % Critically low 30.0-39.0 [facility] Comment on above: Performed By: #### T 7, TSH, LIPID, CMP #### [facility] [address] [address] [address] Chucho Jesus T4 [Mass/Vol] 12.20 ug/dL Normal 4.80-13.90 [facility] Comment on above: Performed By: #### T 7, TSH, LIPID, CMP #### [facility] [address] [address] [address] Chucho Jesus GLYCOHEMOGLOBIN A1Con 2021 ADA RECOMMENDATION SEE BELOW Normal [facility] Comment on above: Result Comment: ADA RECOMMENDED LIMIT 4.0 - 6.0 ADA THERAPEUTIC TARGET < 7.0 ACTION SUGGESTED > 7.0 Performed By: #### A 1C #### [facility] [address] [address] [address] Chucho Jesus Glucose [Mass/Vol] 105 mg/dL Normal [facility] Comment on above: Performed By: #### A 1C #### [facility] [address] [address] [address] Chucho Jesus HbA1c (Bld) [Mass fraction] 5.3 % Normal 4.5-6.2 [facility] Comment on above: Performed By: #### A 1C #### [facility] [address] [address] [address] Chucho Jesus IRONon 04-24-2022 Iron [Mass/Vol] 48.0 ug/dL Critically low 50.0-170.0 [facility] Comment on above: Performed By: #### V ITAD, IRON #### [facility] [address] [address] [address] Chucho Jesus LIPID PROFILEon 04-24-2022 CHOL-HDL RATIO NORM SEE BELOW Normal [facility] Comment on above: Result Comment: 3.3 - 4.4 LOW RISK 4.4 - 7.1 AVERAGE RISK 7.1 - 11.0 MODERATE RISK >11.0 HIGH RISK Performed By: #### V ITAD, IRON #### [facility] [address] [address] [address] Chucho Jesus Cholesterol [Mass/Vol] 184 mg/dL Normal <=200 [facility] Comment on above: Performed By: #### V ITAD, IRON #### [facility] [address] [address] [address] Chucho Jesus Cholesterol in HDL [Mass/Vol] 55 mg/dL Normal 40-60 [facility] Comment on above: Performed By: #### V ITAD, IRON #### [facility] [address] [address] [address] Chucho Jesus Cholesterol in LDL [Mass/Vol] 116.6 mg/dL Normal [facility] Comment on above: Performed By: #### V ITAD, IRON #### [facility] [address] [address] [address] Chucho Jesus Cholesterol.total/C holesterol in HDL [Mass ratio] 3.3 {ratio} Normal [facility] Comment on above: Performed By: #### V ITAD, IRON #### [facility] [address] [address] [address] Chucho Jesus HDL NORMAL > or = 60 mg/dl - LO W CARDIOVASCULAR RISK <40 mg/dl - HIGH CARDIOVASCULAR RISK Normal [facility] Comment on above: Performed By: #### V ITAD, IRON #### [facility] [address] [address] [address] Chucho Jesus LDL CALC NORMAL SEE BELOW Normal [facility] Comment on above: Result Comment: <100 mg/dl OPTIMAL 100 - 129 mg/dl NEAR OR ABOVE OPTIMAL 130 - 159 mg/dl BORDERLINE HIGH 160 - 189 mg/dl HIGH >190 mg/dl VERY HIGH Performed By: #### V ITAD, IRON #### [facility] [address] [address] [address] Chucho Jesus Triglyceride [Mass/Vol] 62 mg/dL Normal <=150 [facility] Comment on above: Performed By: #### V ITAD, IRON #### [facility] [address] [address] [address] Chucho Jesus VLDL CALC 12.4 mg/dL Normal [facility] Comment on above: Performed By: #### V ITAD, IRON #### [facility] [address] [place] [address] Dr. Chucho Jesus PROF 14(COMP METB)on 022 Albumin [Mass/Vol] 3.7 g/dL Normal 3.4-5.0 [facility] Comment on above: Performed By: #### T 7, TSH, LIPID, CMP #### [facility] [address] [place] [address] Dr. Chucho Jesus Albumin/Globulin [Mass ratio] 0.9 {ratio} Normal [facility] Comment on above: Performed By: #### T 7, TSH, LIPID, CMP #### [facility] [address] [place] [address] Dr. Chucho Jesus ALP [Catalytic activity/Vol] 74 U/L Normal 46-116 [facility] Comment on above: Performed By: #### T 7, TSH, LIPID, CMP #### [facility] [address] [place] [address] Dr. Chucho Jesus ALT [Catalytic activity/Vol] 16 U/L Normal 14-59 [facility] Comment on above: Performed By: #### T 7, TSH, LIPID, CMP #### [facility] [address] [place] [address] Dr. Chucho Jseus Anion gap [Moles/Vol] 12.3 mmol/L Normal [facility] Comment on above: Performed By: #### T 7, TSH, LIPID, CMP #### [facility] [address] [place] [address] Dr. Chucho Jesus AST [Catalytic activity/Vol] 13 U/L Critically low 15-37 [facility] Comment on above: Performed By: #### T 7, TSH, LIPID, CMP #### [facility] [address] [place] [address] Dr. Chucho Jesus Bilirubin [Mass/Vol] 0.4 mg/dL Normal 0.2-1.0 [facility] Comment on above: Performed By: #### T 7, TSH, LIPID, CMP #### [facility] [address] [address] [address] Chucho Jesus Calcium [Mass/Vol] 8.9 mg/dL Normal 8.5-10.1 [facility] Comment on above: Performed By: #### T 7, TSH, LIPID, CMP #### [facility] [address] [address] [address] Chucho Jesus Chloride [Moles/Vol] 105 mmol/L Normal 98-107 [facility] Comment on above: Performed By: #### T 7, TSH, LIPID, CMP #### [facility] [address] [address] [address] Chucho Jesus CO2 [Moles/Vol] 26.6 mmol/L Normal 21.0-32.0 [facility] Comment on above: Performed By: #### T 7, TSH, LIPID, CMP #### [facility] [address] [address] [address] Chucho Jesus Creatinine [Mass/Vol] 0.68 mg/dL Normal 0.55-1.02 [facility] Comment on above: Performed By: #### T 7, TSH, LIPID, CMP #### [facility] [address] [place] [address] Dr. Chucho Jesus EGFR-AF LIBYAN >60 Normal >=60 [facility] Comment on above: Performed By: #### T 7, TSH, LIPID, CMP #### [facility] [address] [place] [address] Dr. Chucho Jesus EGFR-NON AF LIBYAN >60 Normal >=60 [facility] Comment on above: Performed By: #### T 7, TSH, LIPID, CMP #### [facility] [address] [address] [address] Chucho Jesus Globulin (S) [Mass/Vol] 4.3 g/dL Normal [facility] Comment on above: Performed By: #### T 7, TSH, LIPID, CMP #### [facility] [address] [place] [address] Dr. Chucho Jesus Glucose [Mass/Vol] 87 mg/dL Normal 74-106 [facility] Comment on above: Performed By: #### T 7, TSH, LIPID, CMP #### [facility] [address] [place] [address] Dr. Chucho Jesus Potassium [Moles/Vol] 3.9 mmol/L Normal 3.5-5.1 [facility] Comment on above: Performed By: #### T 7, TSH, LIPID, CMP #### [facility] [address] [place] [address] Dr. Chucho Jesus Protein [Mass/Vol] 8.0 g/dL Normal 6.4-8.2 [facility] Comment on above: Performed By: #### T 7, TSH, LIPID, CMP #### [facility] [address] [place] [address] Dr. Chucho Jesus Sodium [Moles/Vol] 140 mmol/L Normal 136-145 [facility] Comment on above: Performed By: #### T 7, TSH, LIPID, CMP #### [facility] [address] [place] [address] Dr. Chucho Jesus Urea nitrogen [Mass/Vol] 9.0 mg/dL Normal 7.0-18.0 [facility] Comment on above: Performed By: #### T 7, TSH, LIPID, CMP #### [facility] [address] [place] [address] Dr. Chucho Jesus Urea nitrogen/Creatinine [Mass ratio] 13.2 mg/mg Normal [facility] Comment on above: Performed By: #### T 7, TSH, LIPID, CMP #### [facility] [address] [place] [address] Dr. Chucho Jesus TSHon 04-24-2022 TSH 1.127 uIU/mL Normal 0.358-3.740 [facility] Comment on above: Performed By: #### T 7, TSH, LIPID, CMP #### [facility] [facility] [address] [place] [address] Dr. Chucho Jesus VITAMIN D 25 OHon 04-24-2022 VIT D 25-OH 35.2 ng/mL Normal [facility] Comment on above: Performed By: #### V ITAD, IRON #### [facility] [address] [place], [place] [address] Dr. Chucho Jesus VIT D RANGES SEE BELOW Normal [facility] Comment on above: Result Comment: <20 ng/mL Vit D deficient 20 - <30 ng/mL Vit D insufficient 30 - 100 ng/mL Vit D sufficient >100 ng/mL Potential Toxicity Performed By: #### V ITAD, IRON #### [facility] [address] [place] [address] [address] Chucho Jesus HCG ( test) Ql (U)O rdered By: James Churchill on 12-05-2020 Internal Control Pass [facility] Interpretation and review of laboratory results Normal [facility] POC , UrineOrdered By: James Churchill on 12-05-2020 HCG ( test) Ql (U) Negative Negative [facility] CTA CHEST WITH CONTRASTon CTA CHEST WITH CONTRAST FINAL REPORTEXAM: CTA CHEST WITH CONTRASTHISTORY: Chest pain/pleuritic TECHNIQUE: Spiral multi slice acquisition through the chest during arterial phase of contrast administration. Axial, coronal and sagittal images were reconstructed. Three-dimensional CT angiography images were generated. PRIORS: None.FINDINGS: There is no evidence of pulmonary embolism. The aorta and pulmonary arteries are normal in size. The cardiac chambers are not dilated. There are no signs of aortic aneurysm or dissection.There are no pulmonary masses or infiltrates. There is a 2.8 centimeter diameter emphysematous bulla seen in the right lower lobe. There are no other significant emphysematous changes. Scattered small areas ground-glass appearing density is seen in both lungs which probably relate to hypo inflation and mild atelectasis. There is no pleural thickening or pleural effusion seen. There is no mediastinal adenopathy other mediastinal masses. The visualized upper abdominal contents are unremarkable. IMPRESSION: Impression: Negative study for pulmonary embolism. 2.8 centimeter diameter emphysematous bulla in the right lower lobe. Scattered subsegmental, small areas of interstitial ground-glass appearing infiltrate which probably relate to hypo inflation and atelectasis. Interpreted by:ALLEN Andersonigned by:Ady Tran MD03/25/17Edited Result - FINAL Normal [facility] Basic Metabolic Profon 02-19 (cont.) Normal [facility] Comment on above: Result Comment: Aver age GFR for 20-29 years old: 116 mL/min/1.73sq mChronic Kidney Disease: <60 mL/min/1.73sq mKidney failure: <15 mL/min/1.73sq meGFR calculated using average adult body mass. Additional eGFR calculator available at:http://[email or web address]/multiple_crcl_2012.htm Performed By: #### C DP, BMP, TROPI ####[address] [place] [address] Anion gap 14 mmol/L Normal - [facility] Comment on above: Performed By: #### C DP, BMP, TROPI ####[address] [place] [address] BUN/CRE Ratio 13 Normal - [facility] Comment on above: Performed By: #### C DP, BMP, TROPI ####[address] [place] [address] Calcium 9.2 mg/dL Normal 8.6-10.4 [facility] Comment on above: Performed By: #### C DP, BMP, TROPI ####[address] [place] [address] Chloride 105 mmol/L Normal 98-107 [facility] Comment on above: Performed By: #### C DP, BMP, TROPI ####[address] [place] [address] CO2 23 mmol/L Normal 20-31 [facility] Comment on above: Performed By: #### C DP, BMP, TROPI ####[address] [place] [address] Creatinine 0.55 mg/dL Normal 0.50-0.90 [facility] Comment on above: Performed By: #### C DP, BMP, TROPI ####[address] [place] [address] eGFR (non-black) mL/min/{1.73_m2} Normal >60 [facility] Comment on above: Performed By: #### C DP, BMP, TROPI ####[address] [place] [address] Glucose mass conc 96 mg/dL Normal 70-99 [facility] Comment on above: Performed By: #### C DP, BMP, TROPI ####[address] [place] [address] Potassium molar conc 3.6 mmol/L Low 3.7-5.3 [facility] Comment on above: Performed By: #### C DP, BMP, TROPI ####[address] [place] [address] Sodium 142 mmol/L Normal 135-144 [facility] Comment on above: Performed By: #### C DP, BMP, TROPI ####[address] [place] [address] Staging: Normal [facility] Comment on above: Result Comment: Stag e 1: Some kidney damage normal GFRStage 2: Mild kidney damage GFR 60-89Stage 3: Moderate kidney damage GFR 30-59Stage 4: Severe kidney damage GFR 15-29Stage 5: Severe kidney damage GFR <15ESRD - chronic treatment by dialysis or transplantPerformed at [address] [place] [address] Performed By: #### C DP, BMP, TROPI ####[address] [place] [address] Urea nitrogen 7 mg/dL Normal 6-20 [facility] Comment on above: Performed By: #### C DP, BMP, TROPI ####[address] [place] [address] CBC with Diffon 08-17-2017 Abs. Basophil 0.00 k/uL Normal 0.0-0.2 [facility] Comment on above: Result Comment: Perf ormed at [address] [place] [address] Performed By: #### C DP, BMP, TROPI ####[address] [place] [address] Abs.Neutrophil (Seg) 7.10 k/uL Normal 1.8-8.0 [facility] Comment on above: Performed By: #### C DP, BMP, TROPI ####[address] [place] [address] Basophils/100 WBC Auto (Bld) 0 % Normal [facility] Comment on above: Performed By: #### C DP, BMP, TROPI ####[address] [place] [address] Eosinophils 0.30 10*3/uL Normal 0.0-0.4 [facility] Comment on above: Performed By: #### C DP, BMP, TROPI ####[address] [place] [address] Eosinophils/100 leukocytes 3 % Normal [facility] Comment on above: Performed By: #### C DP, BMP, TROPI ####[address] [place] [address] Erythrocyte distribution width Auto Ratio (RBC) 13.6 % Normal 12.1-15.2 [facility] Comment on above: Performed By: #### C DP, BMP, TROPI ####[address] [place] [address] Erythrocytes (RBC) 5.03 10*6/uL Normal 4.0-5.2 [facility] Comment on above: Performed By: #### C DP, BMP, TROPI ####[address] [place] [address] Hematocrit (HCT) 40.2 % Normal 36-46 [facility] Comment on above: Performed By: #### C DP, BMP, TROPI ####[address] [place] [address] Hemoglobin mass conc (Bld) 13.2 g/dL Normal 12.0-16.0 [facility] Comment on above: Performed By: #### C DP, BMP, TROPI ####[address] [place] [address] Lymphocytes 2.90 10*3/uL Normal 1.2-5.2 [facility] Comment on above: Performed By: #### C DP, BMP, TROPI ####[address] , [facility]83 Lymphocytes/100 leukocytes 27 % Normal [facility] Comment on above: Performed By: #### C DP, BMP, TROPI ####[address] , [place] [address] MCH 26.2 pg Normal 26-34 [facility] Comment on above: Performed By: #### C DP, BMP, TROPI ####[address] [place] [address] MCHC mass conc (RBC) 32.8 g/dL Normal 31-37 [facility] Comment on above: Performed By: #### C DP, BMP, TROPI ####[address] , [facility]83 MCV 79.9 fL Low 80-100 [facility] Comment on above: Performed By: #### C DP, BMP, TROPI ####[address] [place] [address] Monocytes 0.60 10*3/uL Normal 0.0-1.0 [facility] Comment on above: Performed By: #### C DP, BMP, TROPI ####[address] [place] [address] Monocytes/100 leukocytes 5 % Normal [facility] Comment on above: Performed By: #### C DP, BMP, TROPI ####[address] [place] [address] Neutrophil (Seg) 65 % Normal [facility] Comment on above: Performed By: #### C DP, BMP, TROPI ####[address] [place] [address] Platelet mean volume (PMV) 9.6 fL Normal 6.0-12.0 [facility] Comment on above: Performed By: #### C DP, BMP, TROPI ####[address] [place] [address] Platelets 278 10*3/uL Normal 140-450 [facility] Comment on above: Performed By: #### C DP, BMP, TROPI ####[address] [place] [address] WBC (Leukocytes) 10.8 10*3/uL Normal 4.5-13.5 [facility] Comment on above: Performed By: #### C DP, BMP, TROPI ####[address] [place] [address] Auto Diff Performed NOT REPORTED Normal [facility] Comment on above: Performed By: #### C DP, BMP, TROPI ####[address] [place] [address] Erythrocyte morphology NOT REPORTED Normal [facility] Comment on above: Performed By: #### C DP, BMP, TROPI ####[address] [place] [address] Platelets NOT REPORTED Normal [facility] Comment on above: Performed By: #### C DP, BMP, TROPI ####[address] [place] [address] WBC Morphology NOT REPORTED Normal [facility] Comment on above: Performed By: #### C DP, BMP, TROPI ####[address] [place] [address] ED Noteon 02-19-2017 HIM IP Note OR Field Clerk Normal [facility] ED Provider Noteon 7 HIM IP Note OR Field Clerk Normal [facility] Troponinon 02-19-2017 Troponin T.cardiac mass conc ug/L Normal <0.03 [facility] Comment on above: Result Comment: Trop onin T results cannot be compared to Troponin-I results. Performed By: #### C DP, BMP, TROPI ####[address] [place] [address] Troponin I.cardiac mass conc Normal [facility] Comment on above: Result Comment: Refe rence Range: <0.03 Within reference range. 0.03-0.09 Possible myocardial damage.Repeat at appropriate intervals to rule out chronic elevation. >= 0.10 Indicative of myocardial damage.Performed at [address] [place] [address] [phone] Performed By: #### C DP, BMP, TROPI ####[address] [place] [address] Vital Signs Date Time Vital Sign Value Performing Clinician Facility 02-27-2023 14:39-0400 Blood Pressure Location Gary MORRIS [facility] 02-27-2023 14:39-0400 Diastolic blood pressure 66 mm[Hg] Gary MORRIS [facility] 02-27-2023 14:39-0400 Heart rate 70 /min Gary MORRIS [facility] 02-27-2023 14:39-0400 Respiratory rate 16 /min Gary MORRIS [facility] 02-27-2023 14:39-0400 Systolic blood pressure 106 mm[Hg] Gary DANGELOL [facility] [place] 01-08-2022 08:09-0400 Body temperature 98.01 [degF] Queta Rice DO Work Phone: [employer] 01-08-2022 08:09-0400 Body weight 75.75 kg Queta Rice DO Work Phone: [employer] 01-08-2022 08:09-0400 Diastolic blood pressure 71 mm[Hg] Queta Rice DO Work Phone: [employer] 01-08-2022 08:09-0400 Heart rate 98 /min Queta Rice DO Work Phone: [employer] 01-08-2022 08:09-0400 Systolic blood pressure 112 mm[Hg] Queta Rice DO Work Phone: [employer] 12-10-2021 14:45-0400 Body height 166.37 cm Bret Long Other [employer] Other 12-10-2021 14:45-0400 Body mass index (BMI) [Ratio] 26.55 kg/m2 Bret Long Other [employer] Other 12-10-2021 14:45-0400 Body weight 73.48 kg Bret Long Other [employer] Other 12-10-2021 14:45-0400 Diastolic blood pressure 72 mm[Hg] Bret Long Other [employer] Other 12-10-2021 14:45-0400 Systolic blood pressure 103 mm[Hg] Bret Long Other [employer] Other 11-27-2021 14:01-0400 Body temperature 98.4 [degF] Queta Rice DO Work Phone: [facility] 11-27-2021 14:01-0400 Body weight 74.84 kg Queta Rice DO Work Phone: [facility] 11-27-2021 14:01-0400 Diastolic blood pressure 64 mm[Hg] Queta Rice DO Work Phone: [facility] 11-27-2021 14:01-0400 Heart rate 98 /min Queta Rice DO Work Phone: [facility] 11-27-2021 14:01-0400 Systolic blood pressure 121 mm[Hg] Queta Rice DO Work Phone: [facility] 12-05-2020 19:26-0400 Heart rate 106 /min James Breece PA-C Work Phone: [facility] 12-05-2020 19:25-0400 Body temperature 98.29 [degF] James Breece PA-C Work Phone: [facility] 12-05-2020 19:25-0400 Body weight 97.98 kg James Breece PA-C Work Phone: [facility] 12-05-2020 19:25-0400 Diastolic blood pressure 86 mm[Hg] James Breece PA-C Work Phone: [facility] 12-05-2020 19:25-0400 Respiratory rate 16 /min James Breece PA-C Work Phone: [facility] 12-05-2020 19:25-0400 SaO2% (BldA) [Mass fraction] 97 % James Breece PA-C Work Phone: [facility] 12-05-2020 19:25-0400 Systolic blood pressure 126 mm[Hg] James Breece PA-C Work Phone: [facility] Encounters Encounter Date Encounter Type Care Provider Facility Start: 02-27-2023 End: 02-28-2023 ambulatory Gary Howell ALEXANDRA Facility:[facility] Start: 02-27-2023 End: 02-27-2023 Patient encounter procedure Gary Howell ALEXANDRA [facility] Start: 02-23-2023 ambulatory Alexandr Bourgeois Facility:[facility] Start: 02-05-2023 ambulatory Gary MORRIS Facility:[facility] Start: 11-07-2022 End: 11-08-[address] HOMAR LEWIS . Facility:[facility] Start: 08-14-2022 End: 08-14-[address] HOMAR LEWIS . Facility:[facility] Start: 08-11-2022 End: 08-11-[address] HOMAR LEWIS . Facility:[facility] Start: 07-16-[address] HOMAR LEWIS . Facili ty:[facility] Start: 05-26-2022 End: 05-26-[address] HOMAR LEWIS . Facility:[facility] Start: 05-22-2022 End: 05-22-2022 ambulatory ITA REYES Facility:[facility] Start: 04-24-2022 End: 04-25-[address] HOMAR LEWIS . Facility:[facility] Start: 02-18-2022 ambulatory QUETA Huffman~[id number] YVONNE [facility] Start: 02-12-2022 ambulatory QUETA Huffman~[id number] [facility] Start: 02-12-2022 End: 02-12-2022 Telemedicine consultation with patient Queta Huffman Rice DO Work Phone: [facility] Comment on above: Anxiety (Primary Dx) Start: 01-19-2022 Refill Luis Dipalma D O Work Phone: [facility] Start: 01-19-2022 Refill Luis Dipalma D O Work Phone: [facility] Start: 01-08-2022 End: 01-08-2022 ambulatory QUETA Huffman~[id number] [facility] Start: 01-08-2022 End: 01-08-2022 Office outpatient visit 25 minutes Queta Huffman Rice DO Work Phone: [facility] Comment on above: Anxiety (Primary Dx) ; Hypotension, unspecified hypotension type Start: 01-08-2022 End: 01-08-2022 Patient encounter procedure Queta Huffman Rice DO Work Phone: [facility] Start: 12-11-2021 End: 12-11-2021 ambulatory QUETA Huffman~[id number] FRESNO YVONNE [facility] Start: 12-10-2021 End: 12-10-2021 ambulatory Bret Long Other [employer] Other Start: 12-10-2021 Office outpatient ne w 45 minutes Bret Long [facility] Start: 11-27-2021 End: 11-27-2021 ambulatory QUETA JMAA M~[id number] [facility] Start: 11-27-2021 End: 11-27-2021 Office outpatient new 30 minutes Queta Huffman Rice DO Work Phone: [facility] Comment on above: Anxiety (Primary Dx) Start: 11-27-2021 End: 11-27-2021 Patient encounter procedure Queta Huffman Rice DO Work Phone: [facility] Start: 11-25-2021 Telephone encounter Dana Kinsey [facility] Start: 12-05-2020 End: 12-05-2020 ambulatory PHYSICIAN NO [facility] Start: 12-05-2020 End: 12-05-2020 Office outpatient new 20 minutes James Churchill PA-C Work Phone: [facility] [place] Comment on above: Vaginal sore (Primar y Dx) Start: 02-19-2017 End: 02-19-2017 Emergency department patient visit KIM [facility] Procedures Date Procedure Procedure Detail Performing Clinician Start: 11-27-2021 Adult depression scr eening assessment Queta Rice DO Work Phone: Start: 12-05-2020 Urine test visual color cmprsn meths James Meliza Churchill PA-C Work Phone: Start: 02-19-2017 Ct angiography chest w/contrast/noncontrast KIM SUTHERLAND Start: 02-19-2017 SALINE LOCK IV KIM SIBLEY Start: 02-19-2017 TELEMETRY MONITORING MA ZAK SUTHERLAND Start: 02-19-2017 BASIC METABOLIC PANEL M ARK ENA Start: 02-19-2017 CBC WITH AUTO DIFFERENTIAL KIM ENA Start: 02-19-2017 TROPONIN KIM Howell Start: 02-19-2017 EKG 12-LEAD KIM Howell None (qualifier value) Henrik zev MORRIS Plan of Treatment Date Care Activity Detail Author Start: 11-27-2022 Adolescent depressio n screening assessment Depression Screening [facility] Start: 03-06-2022 Influenza vaccination T [facility] Start: 02-07-2022 End: 02-07-2022 Patient encounter procedure 02/07/2022 Office Visit Family Medicine Queta Osorio DO [address] [place] [id number] [facility] Start: 12-19-2021 End: 12-19-2021 Patient encounter procedure 12/19/2021 Office Visit [facility] Medicine Queta Osorio DO [address] [place] [id number] [facility] Start: 12-07-2021 COVID-19 Vaccine (3 - Booster for Moderna series) COVID-19 Vaccine (3 - Booster for Moderna series) [facility] Start: 11-27-2021 End: 11-27-2021 Patient encounter procedure 11/27/2021 Office Visit Family Medicine Queta Osorio, DO [address] [place] [id number] [facility] Start: 11-24-2021 Adolescent depressio n screening assessment Depression Screening [facility] Start: 11-24-2021 Hepatitis C screening Hepatitis C Sc reening [facility] Start: 11-24-2021 HIV screening HIV Screening [facility] Start: 11-24-2021 Social Influencers o f Health Screening Social Influencers of Health Screening [facility] Start: 03-06-2021 Influenza vaccination Sequenti al Influenza Vaccine (Season Ended) [facility] Start: 2017 Screening for malign ant neoplasm of cervix Cervical Cancer Screening: Pap Smear [facility] Start: 2015 DTaP,Tdap,and Td Vac cines (1 - Tdap) DTaP,Tdap,and Td Vaccines (1 - Tdap) [facility] Start: 2014 Hepatitis C screening Hepatitis C Sc [facility] Start: 2011 HIV screening HIV Screening [facility] Start: 2008 COVID-19 Vaccine (1) COVID-19 Vaccin e (1) [facility] Start: 2008 Depression screening using PHQ-9 (Patient Health Questionnaire 9) score Depression Screening (PHQ9) [facility] Start: 2007 HPV Vaccines (1 - 2- dose series) HPV Vaccines (1 - 2-dose series) [facility] Start: 2007 Vaccination for april n papillomavirus HPV Vaccines (1 - 2-dose series) [facility] Start: 2001 COVID-19 Vaccine (1) COVID-19 Vaccin e (1) [facility] Start: 1999 History and physical examination, annual for health maintenance Wellness Visit [facility] Start: 1996 Screening for Chlamy marilee trachomatis Chlamydia Screening [facility] Start: 1996 Screening for malign ant neoplasm of cervix Pap Smear [facility] Start: 1996 Tetanus vaccination Tetanus: Every 1 0yrs [facility] Chlamydia trachomati s rRNA assay Chlamydia/GC/Trichomonas Amplified RNA Microbiology Routine Vaginal sore Ordered: 12/05/2020 [facility] Comment on above: Ordered: 12/05/2020 HSV by PCR Superficial Site HSV by PCR Superficial Site Lab Routine Vaginal sore Ordered: 12/05/2020 [facility] Comment on above: Ordered: 12/05/2020 Neisseria gonorrhoea e nucleic acid detection Chlamydia/Gonorrhoeae Amplified RNA Microbiology Routine Vaginal sore Ordered: 12/05/2020 [facility] Comment on above: Ordered: 12/05/2020 Trichomonas vaginali s Amplified RNA Trichomonas vaginalis Amplified RNA Microbiology Routine Vaginal sore Ordered: 12/05/2020 [facility] Comment on above: Ordered: 12/05/2020 Immunizations Immunization Date Immunization Notes Care Provider Fa cility 07-09-2021 SARS-CoV-2 (COVID-19 ) mRNA-1273 vaccine Gary DANGELOJosafat [facility] [place] 06-08-2021 SARS-CoV-2 (COVID-19 ) mRNA-1273 vaccine Gary MORRIS [facility] [place] Payers Date Payer Category Payer Medicaid [employer] [place] [place] [employer] [place] [id number] 2021-Present [address] [address] [place] [address] [id number] 2020 Medicaid [id number] 2016 Unknown [id number] 2013 Unknown [id number] 1996 Unknown [id number] [id number] 1996 Unknown [id number] 2.16.840.1.794570.3.579.2.114 1996 Unknown [id number] 2.16.840.1.500198.3.579.2.114 1996 Unknown [id number] 2.16.840.1.827925.3.579.2.114 1996 Unknown [id number] 2.16.840.1.920184.3.579.2.1142 1996 Unknown [id number] 2.16.840.1.642704.3.579.2.114 1996 Unknown [id number] 2.16.840.1.338230.3.579.2.593 1996 Unknown [id number] 2.16.840.1.400778.3.579.2.593 1996 Unknown [id number] 2.16.840.1.650693.3.579.2.593 1996 Unknown [id number] 2.16.840.1.495936.3.579.2.593 1996 Unknown [id number] 2.16.840.1.810462.3.579.2.593 1996 Unknown [id number] 2.16.840.1.009543.3.579.2.593 1996 Unknown [id number] 2.16.840.1.606604.3.579.2.593 1996 Unknown [id number] 2.16.840.1.719970.3.579.2.727 1960 Unknown [id number] 2.16.840.1.905037.3.579.2.727 1959 Medicaid [id number] 1959 Self-pay 1959 Unknown [id number] 1959 Unknown [id number] 1959 Unknown [id number] Unknown [id number] [id number] Social History Date Type Detail Facility Start: 12-05-2020 End: 02-27-2023 Tobacco smoking status NHIS Never smoker [facility] Start: 12-05-2020 End: 11-27-2021 Tobacco use and exposure Never used [facility] Start: 12-05-2020 Alcohol intake Current drinke r of alcohol (finding) [facility] Start: 12-05-2020 End: 11-27-2021 History SDOH Alcohol Frequency 1 [facility] Start: 12-05-2020 Alcohol Comment occ [facility] Start: 1996 Sex Assigned At Not on file [facility] Start: 11-17-2021 End: 02-12-2022 Exposure to SARS-CoV-2 (event) Not sure [facility] Tobacco smoking stat [facility] Tobacco smoking consumption unknown [facility] Start: 11-27-2021 End: 02-12-2022 Alcohol intake Lifetime non-drinker (finding) [facility] Start: 1996 Sex Assigned At Female T [facility] Sex Assigned At [facility] Tobacco smoking status Never [facility] [place] Functional Status Date Assessment Result Facility 02-27-2023 Functional Status N/A [facility] Clinical Notes 12-05-2020 to 02-27-2023 Queta Osorio, DO - 02/12/2022 7:30 AM EDTDabrittany Rosario MA - 01/08/2022 8:00 AM Chema Osorio DO - 01/08/2022 8:00 AM EDT Note Date & Type Note Facility 02-27-2023 Note Chief Complaint consultation for back mass HPI Staff 27 year old female presents on consultation from Sabrina Khan for right back mass. Reports she noted nodule several months ago after rubbing over lower back. Believes this may have slightly increased in size since first noted. Reports some discomfort. ABD US completed 02/04 with lipoma favored. History of Present Illness 27 yo female referred for lipoma of right lower back; patient was having some lower back/leg pain and felt this small nodule; US was consistent with lipoma; no skin changes or injury to area; no asa or NSAID use. Review of Systems PHQ Score Initial Depression Screen Score: 0 ROS - Provider Constitutional: no fever, no sweats, no weight loss. Eyes: no glasses, no blurred vision, no visual loss. ENMT: no dentures, no hoarseness, no swallowing difficulties, no hearing loss, no ear infection(s), no nose bleeds. Cardiovascular: normal blood pressure, no chest pain, regular heartbeat, no heart murmur. Respiratory: no shortness of breath, no cough, no asthma, no wheezing. Gastrointestinal: no nausea, no vomiting, no diarrhea, no constipation, no blood in stool, no change in bowel habits, no abdominal pain, no hepatitis. Genitourinary: no kidney stones, no urine infection, no dysuria. Musculoskeletal: no pain, no weakness. Skin: no changing moles, no rash, yes skin lumps. Neurologic: no seizures, no epilepsy, no headache. Psychiatric: no emotional or psychiatric problem. Heme/Lymph: no bleeding problems, no anemia, no blood clots, no transfusions. Allergy/Immunologic: no swollen lymph nodes/glands, no IV drug abuse. Other: Additional ROS info: Except as noted in the above Review of Systems and in the History of Present Illness, all other systems have been reviewed and are negative or noncontributory. Physical Exam Vitals & Measurements HR: 70(Peripheral) RR: 16 BP: 106/66 HT: 65 in HT: 165.1 cm WT: 75.1 kg WT: 165.22 lb BMI: 27.55 skin: right lower back with 1 x 3 cm mobile, soft, subcutaneous nodule, nontender, no skin changes Assessment/Plan 1. Lipoma of lower back (D17.1: Benign lipomatous neoplasm of skin and subcutaneous tissue of trunk) small, asymptomatic; recommend observation for now; if it would increase in size or cause discomfort; or if patient is worried about it, can proceed with excisional biopsy under local anesthesia at [facility]; call with problems/questions. Follow-up No qualifying data available Problem List/Past Medical History Ongoing Anxiety BMI 27.0-27.9,adult Carrier of cystic fibrosis gene mutation Cervicalgia Chronic pain History of pre-eclampsia Insomnia Lipoma of lower back Migraines Overweight Historical No qualifying data Procedure/Surgical History None. Medications Bentyl 10 mg Cap Levsin 0.125 mg SL Tab Zofran 4 mg Tab Allergies No Known Allergies No Known Medication Allergies Social History Alcohol - Denies Alcohol Use, 02/27/2023 Substance Abuse Current, Marijuana, Daily, 02/27/2023 Tobacco Never (less than 100 in lifetime) Tobacco Use:. Never Smokeless Tobacco Use:., 02/27/2023 Family History Diabetes mellitus type 2: Mother. Heart disease: Father. Immunizations Vaccine Date Status SARS-CoV-2 (COVID-19) mRNA-1273 vaccine 07/09/2021 Recorded SARS-CoV-2 (COVID-19) mRNA-1273 vaccine 06/08/2021 [address] [facility] Comment on above: Result Comment: Elec tronically Signed By: ALEXANDRA RANGEL, Gary Jackson\Date and Time Signed: 02/27/23 16:20 EDT 02-12-2022 History of Present illness Narrative Attempted to complete Mchart and patient was not online despite speaking to SEBASTIAN prior to appointment. Attempted to call on phone 3 separate times before noon with no answer. May reschedule at later date. documented in this encounter [facility] 01-08-2022 History of Present illness Narrative bp's have been 94/56 88/52 97/58 86/52 87/49 Subjective Patient ID: Leslie Ford is a 26 y.o. female. Chief Complaint Patient presents with Follow-up Bp is low now, 26 year old female presents for follow up of anxiety. At last visit we increased buspirone to 10mg three times daily. She keeps forgetting the afternoon and evening doses. Feels like it has helped some. BP has been dropping very low. The following portions of the patient's chart were reviewed in this encounter and updated as appropriate: Tobacco Allergies Meds Problems Med Hx Surg Hx Fam Hx Soc Hx Review of Systems Constitutional: Negative for activity change, appetite change, fatigue and fever. HENT: Negative for hearing loss, sore throat and trouble swallowing. Eyes: Negative for visual disturbance. Respiratory: Negative for cough, shortness of breath and wheezing. Cardiovascular: Negative for chest pain, palpitations and leg swelling. Gastrointestinal: Negative for abdominal pain, constipation, diarrhea and nausea. Endocrine: Negative for polydipsia, polyphagia and polyuria. Genitourinary: Negative for difficulty urinating and dysuria. Musculoskeletal: Negative for arthralgias, back pain, joint swelling and neck pain. Skin: Negative for rash and wound. Neurological: Negative for weakness, light-headedness, numbness and headaches. Psychiatric/Behavioral: Negative for dysphoric mood. The patient is nervous/anxious. Objective Physical Exam Vitals and nursing note reviewed. Constitutional: Appearance: Normal appearance. HENT: Head: Normocephalic and atraumatic. Mouth/Throat: Mouth: Mucous membranes are moist. Pharynx: Oropharynx is clear. Eyes: Extraocular Movements: Extraocular movements intact. Conjunctiva/sclera: Conjunctivae normal. Pupils: Pupils are equal, round, and reactive to light. Musculoskeletal: General: Normal range of motion. Cervical back: Normal range of motion. Skin: General: Skin is warm and dry. Neurological: General: No focal deficit present. Mental Status: She is alert and oriented to person, place, and time. Mental status is at baseline. Psychiatric: Mood and Affect: Mood normal. Behavior: Behavior normal. Thought Content: Thought content normal. Judgment: Judgment normal. Assessment/Plan Anxiety (Primary) Comments: Switch from buspirone to sertraline. Follow up in 1 month. Orders: - sertraline (ZOLOFT) 25 mg tablet; Take 1 tablet (25 mg total) by mouth 1 (one) time each day. Dispense: 30 each; Refill: 1 Hypotension, unspecified hypotension type Comments: Will continue to monitor. May be due to buspirone. documented in this encounter [facility] 12-10-2021 Evaluation note Encounter Date Diagnosis Assessment Notes Dec, Irritable bowel syndrome with diarrhea (ICD-10 - K58.0) Continue medications without change Dec, Epigastric pain (ICD-10 - R10.13) Dec, Chronic nausea (ICD-10 - R11.0) Dec, Family history of carcinoma in situ of anal canal (ICD-10 - Z84.89) Dec, Other Continue Zofran prn Pt to call if symptoms worsen [facility] Other 05-25-2022 History of Present illness Narrative* Queta Osorio DO - 11/27/2021 2:00 PM EDT Subjective Patient ID: Leslie Ford is a 26 y.o. female. Chief Complaint Patient presents with [facility] 26 y.o. female presents to [facility]. History of anxiety and depression. Has been a lot worse here lately. Did have trouble with several medicines in the past either with side effects or just did not help with the anxiety. Has tried several SSRIs including citalopram. The following portions of the patient's chart were reviewed in this encounter and updated as appropriate: Tobacco Allergies Meds Problems Med Hx Surg Hx Fam Hx Review of Systems Constitutional: Negative for activity change, appetite change, fatigue and fever. HENT: Negative for hearing loss, sore throat and trouble swallowing. Eyes: Negative for visual disturbance. Respiratory: Negative for cough, shortness of breath and wheezing. Cardiovascular: Negative for chest pain, palpitations and leg swelling. Gastrointestinal: Negative for abdominal pain, constipation, diarrhea and nausea. Endocrine: Negative for polydipsia, polyphagia and polyuria. Genitourinary: Negative for difficulty urinating and dysuria. Musculoskeletal: Negative for arthralgias, back pain, joint swelling and neck pain. Skin: Negative for rash and wound. Neurological: Negative for weakness, light-headedness, numbness and headaches. Psychiatric/Behavioral: Negative for dysphoric mood. The patient is nervous/anxious. Objective Physical Exam Vitals and nursing note reviewed. Constitutional: Appearance: Normal appearance. HENT: Head: Normocephalic and atraumatic. Eyes: Extraocular Movements: Extraocular movements intact. Conjunctiva/sclera: Conjunctivae normal. Cardiovascular: Rate and Rhythm: Normal rate and regular rhythm. Pulmonary: Effort: Pulmonary effort is normal. Breath sounds: Normal breath sounds. Musculoskeletal: General: Normal range of motion. Cervical back: Normal range of motion. Skin: General: Skin is warm and dry. Neurological: General: No focal deficit present. Mental Status: She is alert and oriented to person, place, and time. Mental status is at baseline. Psychiatric: Mood and Affect: Mood normal. Behavior: Behavior normal. Thought Content: Thought content normal. Judgment: Judgment normal. Assessment/Plan Anxiety (Primary) Comments: GeneSight collected today. Trial of buspirone 10 mg twice daily. Orders: - busPIRone (BUSPAR) 10 mg tablet; Take 1 tablet (10 mg total) by mouth 2 (two) times a day. Dispense: 60 each; Refill: 1 * Dana Rosario MA - 11/27/2021 2:00 PM EDT Started when she was in High School Lost her daughter at 24 weeks. Took xanax and than just quit taking it ( July 2017) documented in this [facility]05-23-2022 History of Present illness Narrative* Dana Rosario MA - 11/25/2021 12:19 PM EDT Lvm for pt to come in and be seen * Dana Rosario MA - 11/25/2021 10:02 AM EDT She was supposed to start a new job today and she couldn't get out of her car as her anxity was so bad. She cant get a new pt appointment with us until December 19. [facility] said that she needs a Dr and got her an appointment with another provider but told her that if she saw someone else than she cant see you anymore. What would you like me to do? documented in this [facility]06-02-2021 History of Present illness Narrative* James Churchill PA-C - 12/05/2020 8:22 PM EDT Images from the original note were not included. Patient Name: [facility] Location: [address] [facility] [id number] Date Of : Date Of Visit: 1995 12/05/2020 MRN# Provider: [id number] James Churchill PA-C Chief Complaint Patient presents with Vaginal Pain around vagina, open sores, sometimes painful. x3 days. pt is breastsfeeding Assessment & Plan 1. Vaginal sore POC , Urine HSV by PCR Superficial Site Chlamydia/GC/Trichomonas Amplified RNA No follow-ups on file. Medical Decision Making Lesions highly concerning for genital herpes. HSV culture pending, will tx with Vlatrex in interim. Pt did also recently shave area, however appears more herpetic in nature. Education provided. Partner with h/o oral herpes. Pt to avoid shaving and intercourse until tests resulted. Additional Clinical Comments Discussed over the counter medications for symptomatic management and side effects of medications. Recommended taking all medications with food and to stop medications if they develop any signs of anallergic reaction. Educated patient and/or guardian about signs and symptoms that would warrant further immediate evaluation. Recommended that they should return to urgent care, make an appointment with their family physician, or go to the emergency room if symptoms persist or get acutely worse. Recommended follow upwithin the next week with their PCP or to get established with a PCP soon in order to follow up appropriately. Subjective 25 y.o. female presents with Vaginal Pain (around vagina, open sores, sometimes painful. x3 days. pt is breastsfeeding) Vaginal Pain The patient's primary symptoms include genital lesions and vaginal discharge. The patient's pertinent negatives include no genital itching, genital odor or vaginal bleeding. This is a new problem. The current episode started in the past 7 days. She is not . Pertinent negatives include no abdominal pain, back pain, chills, dysuria, fever, frequency or urgency. She is sexually active. No (partner with h/o oral herpes, no recent outbreaks, does perform oral sex to patient), her partner does not have an STD. She uses oral contraceptives for contraception. There is no history of herpes simplex or an STD. Review Of Systems Review of Systems Constitutional: Negative for chills and fever. Gastrointestinal: Negative for abdominal pain. Genitourinary: Positive for genital sores, vaginal discharge and vaginal pain. Negative for difficulty urinating, dysuria, frequency and urgency. Musculoskeletal: Negative for back pain. Medical History History reviewed. No pertinent past medical history. History reviewed. No pertinent surgical history. There is no problem list on file for this patient. Social History Social History Tobacco Use Smoking status: Never Smoker Smokeless tobacco: Never Used Vaping Use Vaping Use: Never used Substance Use Topics Alcohol use: Yes Comment: occ Drug use: Never Family History Family History Problem Relation Age of Onset Diabetes Mother No Known Problems Father Objective Physical Exam BP 126/86 Pulse (!) 106 Temp 98.3 F (36.8 C) (Infrared) Resp 16 Wt 98 kg (216 lb) SpO2 97% Yes Vision/Hearing Exam:No exam data present Physical Exam Vitals and nursing note reviewed. Constitutional: General: She is not in acute distress. Appearance: Normal appearance. She is not ill-appearing, toxic-appearing or diaphoretic. HENT: Head: Normocephalic and atraumatic. Abdominal: Palpations: Abdomen is soft. Tenderness: There is no abdominal tenderness. Genitourinary: Vagina: Vaginal discharge present. Comments: Female MA present for exam. Thin, white vaginal discharge noted. No FBs, cervical motion,or adnexal tenderness. Few superficial ulcerations along introitus and inner labia minora. Neurological: Mental Status: She is alert. Psychiatric: Mood and Affect: Mood normal. Procedure Notes Procedures Results Recent Results (from the past 168 hour(s)) POC , Urine Collection Time: 12/05/20 7:43 PM Result Value Ref Range POC Preg Test, Ur Negative Negative Internal Control Pass No orders to display Orders Placed This Visit Orders Placed This Encounter Procedures Chlamydia/GC/Trichomonas Amplified RNA Chlamydia/Gonorrhoeae Amplified RNA Trichomonas vaginalis Amplified RNA HSV by PCR Superficial Site POC , Urine Medication List At End Of Visit Current Outpatient Medications Medication Sig Dispense Refill norethindrone (MICRONOR) 0.35 mg tablet valACYclovir (Valtrex) 1000 MG tablet Take 1 (one) tablet (1,000 mg total) by mouth 2 (two) times aday for 10 days . 20 tablet 0 No current facility-administered medications for this visit. Patient Instructions We will call with lab results in ~2-3 days. No shaving or intercourse until tests resulted. Genital Herpes: Care Instructions Your Care Instructions Genital herpes is a sexually transmitted infection (STI). The most common way to get it is through sexual or other physical contact with someone who has herpes. Genital herpes is caused by a virus called herpes simplex. There are two types of this virus. Type 2 is the type that usually causes genital herpes. But type 1 can also cause it. Type 1 is the type that causes cold sores. Some people are surprised to find out that they have herpes or that they gave it to someone else. This is because a lot of people who have it don't know that they have it. They may not get sores or they may have sores that they can't see. There is no cure for herpes. But antiviral medicine can help you feel better and help prevent more outbreaks. This medicine may also lower the chance of spreading the virus. Follow-up care is a watson part of your treatment and safety. Be sure to make and go to all appointments, and call your doctor if you are having problems. It's also a good idea to know your test resultsand keep a list of the medicines you take. How can you care for yourself at home? Be safe with medicines. Take your medicines exactly as directed. Call your doctor if you think you're having a problem with your medicine. You'll get more details on the specific medicines your doctor prescribes. To reduce the pain and itching from herpes sores: ? Take warm sitz baths. ? Keep the sores clean and dry in between baths or showers. You can let the sores air-dry. This mayfeel better than using a towel. ? Wear cotton underwear. Cotton absorbs moisture well. ? Try pouring warm water over the area while urinating. This can help prevent urine from irritatingthe sores. ? Take an jytz-fjy-jvadnbl pain medicine, such as acetaminophen (Tylenol), ibuprofen (Advil, Motrin), or naproxen (Aleve). Read and follow all instructions on the label. Do not take two or more pain medicines at the same time unless the doctor told you to. Many pain medicines have acetaminophen, which is Tylenol. Too much acetaminophen (Tylenol) can be harmful. How can you prevent it? It's easier to prevent an STI than it is to treat one: Limit your sex partners. The safest sex is with one partner who has sex only with you. Talk with your partner or partners about STIs before you have sex. Find out if they are at risk santos STI. Remember that it's possible to have an STI and not know it. Wait to have sex with new partners until you've each been tested. Don't have sex if you have symptoms of an infection or if you are being treated for an STI. Use a condom (a male or female condom) every time you have sex. Condoms are the only form of control that also helps prevent STIs. If you're , be extra careful. Some STIs can be passed to your baby during delivery. Vaccines are available for some STIs, such as HPV. Ask your doctor for more information. When should you call for help? Call your doctor now or seek immediate medical care if: You have a new fever. There is increasing redness or red streaks around herpes sores. Watch closely for changes in your health, and be sure to contact your doctor if: You have herpes and you think you might be . You have an outbreak of herpes sores, and the sores are not healing. You have frequent outbreaks of genital herpes sores. You are unable to pass urine or are constipated. You want to start antiviral medicine. You do not get better as expected. Where can you learn more? Log into your personal health record on [email or web address] and enter E579 in the Education box to learn more about Genital Herpes: Care Instructions. Current as of: August 31, 2019 Content Version: 12.8 [employer]. Care instructions adapted under license by your healthcare professional. If you have questions about a medical condition or this instruction, always ask your healthcare professional. [employer] disclaims any warranty or liability for your use of this information. documented in this [id number] Instructions* Patient Instructions* James Churchill PA-C - 12/05/2020 7:52 PM EDT Images from the original note were not included. We will call with lab results in ~2-3 days. No shaving or intercourse until tests resulted. Genital Herpes: Care Instructions Your Care Instructions Genital herpes is a sexually transmitted infection (STI). The most common way to get it is through sexual or other physical contact with someone who has herpes. Genital herpes is caused by a virus called herpes simplex. There are two types of this virus. Type 2 is the type that usually causes genital herpes. But type 1 can also cause it. Type 1 is the type that causes cold sores. Some people are surprised to find out that they have herpes or that they gave it to someone else. This is because a lot of people who have it don't know that they have it. They may not get sores or they may have sores that they can't see. There is no cure for herpes. But antiviral medicine can help you feel better and help prevent more outbreaks. This medicine may also lower the chance of spreading the virus. Follow-up care is a watson part of your treatment and safety. Be sure to make and go to all appointments, and call your doctor if you are having problems. It's also a good idea to know your test resultsand keep a list of the medicines you take. How can you care for yourself at home? Be safe with medicines. Take your medicines exactly as directed. Call your doctor if you think you're having a problem with your medicine. You'll get more details on the specific medicines your doctor prescribes. To reduce the pain and itching from herpes sores: ? Take warm sitz baths. ? Keep the sores clean and dry in between baths or showers. You can let the sores air-dry. This mayfeel better than using a towel. ? Wear cotton underwear. Cotton absorbs moisture well. ? Try pouring warm water over the area while urinating. This can help prevent urine from irritatingthe sores. ? Take an ghrq-glr-azykwip pain medicine, such as acetaminophen (Tylenol), ibuprofen (Advil, Motrin), or naproxen (Aleve). Read and follow all instructions on the label. Do not take two or more pain medicines at the same time unless the doctor told you to. Many pain medicines have acetaminophen, which is Tylenol. Too much acetaminophen (Tylenol) can be harmful. How can you prevent it? It's easier to prevent an STI than it is to treat one: Limit your sex partners. The safest sex is with one partner who has sex only with you. Talk with your partner or partners about STIs before you have sex. Find out if they are at risk santos STI. Remember that it's possible to have an STI and not know it. Wait to have sex with new partners until you've each been tested. Don't have sex if you have symptoms of an infection or if you are being treated for an STI. Use a condom (a male or female condom) every time you have sex. Condoms are the only form of control that also helps prevent STIs. If you're , be extra careful. Some STIs can be passed to your baby during delivery. Vaccines are available for some STIs, such as HPV. Ask your doctor for more information. When should you call for help? Call your doctor now or seek immediate medical care if: You have a new fever. There is increasing redness or red streaks around herpes sores. Watch closely for changes in your health, and be sure to contact your doctor if: You have herpes and you think you might be . You have an outbreak of herpes sores, and the sores are not healing. You have frequent outbreaks of genital herpes sores. You are unable to pass urine or are constipated. You want to start antiviral medicine. You do not get better as expected. Where can you learn more? Log into your personal health record on [email or web address] and enter E579 in the Education box to learn more about Genital Herpes: Care Instructions. Current as of: August 31, 2019 Content Version: 12.8 [employer]. Care instructions adapted under license by your healthcare professional. If you have questions about a medical condition or this instruction, always ask your healthcare professional. [employer] disclaims any warranty or liability for your use of this information. [facility] No data available for this section General Surgery [place] Evaluation note* Diagnosis Vaginal sore- Primary documented in this encounter [facility] note* Diagnosis Anxiety- Primary Anxiety state, unspecified documented in this encounter [facility] note* Diagnosis Anxiety- Primary Anxiety state, unspecified Hypotension, unspecified hypotension type documented in this encounter [facility] note* Diagnosis Anxiety- Primary Anxiety state, unspecified documented in this encounter [facility] general Narrative - Reported* Type Description Date Medical History IBS [facility] Other Hospital Discharge instructions No data available for this section General Surgery [place] note No data available for this section General Surgery [place] Summary Purpose Family History No Family History Records FoundNo Family History Records FoundNo Family History Records FoundNo Family History Records FoundNo Family History Records FoundNo Family History Records FoundNo Family History Records Found Advance Directives No Advanced Directives Records FoundDocuments on File Type Date Recorded Patient Physician/Ophthalmologist Expl anation Advance Directives and Living Will Documents on File Type Date Recorded Patient Physician/Ophthalmologist Expl anation 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 Additional Source Comments INFORMATION SOURCE (unrecogn ized section and content) DATE CREATED AUTHOR 12/30/2017 [facility] DATE CREATED AUTHOR AUTHOR'S ORGANIZ ATION 12/06/2020 [facility] DATE CREATED AUTHOR AUTHOR'S ORGANIZ ATION 02/16/2022 [facility] DATE CREATED AUTHOR AUTHOR'S ORGANIZ ATION [facility]20[facility] DATE CREATED AUTHOR AUTHOR'S ORGANIZ ATION 11/14/2022 [facility] DATE CREATED AUTHOR AUTHOR'S ORGANIZ ATION 03/02/2023 [facility] DATE CREATED AUTHOR AUTHOR'S ORGANIZ ATION 07/05/2023 [facility] Reason for Visit (unrecogniz ed section and content) Reason Comments Vaginal Pain around vagina, open sores, sometimes painful. x3 days. pt is breastsfeeding Reason Comments Establish Care Reason Comments Follow-up Bp is low now, Reason Onset Date Comments Med Refill 01/19/2022 Reason Comments Follow-up Ordered Prescriptions (unrec ognized section and content) Prescription Sig Dispensed Refills Start Date End Da te busPIRone (BUSPAR) 10 mg tabletIndications:Anxiety Take 1 tablet (10 mg total) by mouth 2 (two) times a day. 60 each 11/27/2021 01/26/2022 Prescription Sig Dispensed Refills Start Date End Da te sertraline (ZOLOFT) 25 mg tabletIndications:Anxiety Take 1 tablet (25 mg total) by mouth 1 (one) time each day. 30 each 1 01/08/2022 03/09/2022 Prescription Sig Dispensed Refills Start Date End Da te ondansetron ODT (ZOFRAN-ODT) 4 mg dispersible tablet Take 2 tablets (8 mg total) by mouth every 8 (eight) hours if needed for nausea. 20 tablet 0 01/20/2022 Care Teams (unrecognized sec tion and content) Housing Installer Relationship Specialty Start Date End Date Queta Osorio, DO [address] [place] [address] [phone] PCP - General Family Medicine 11/27/21 Housing Installer Relationship Specialty Start Date End Date Queta Osorio, DO [address] [place] [address] [phone] PCP - General Family Medicine 11/27/21 Housing Installer Relationship Specialty Start Date End Date Queta Osorio, DO [address] [place] [phone] PCP - General Family Medicine 11/27/21 FOR RECORDS PERTAINING TO PATIENTS WHO ARE OR HAVE BEEN ENROLLED IN A CHEMICAL DEPENDENCY/SUBSTANCEABUSE PROGRAM, SOME INFORMATION MAY BE OMITTED. This clinical summary was aggregated from multiple sources. Caution should be exercised in using it in the provision of clinical care. This summary normalizes information from multiple sources, and as a consequence, information in this document may materially change the coding, format and clinical context of patient data. In addition, data may be omitted in some cases. CLINICAL DECISIONS SHOULD BE BASED ON THE PRIMARY CLINICAL RECORDS. [facility]. provides no warranty or guarantee of the accuracy or completeness of information in this document.
--- NOTE | 2023-12-13 11:22 | ECG_ITS ---
[facility] Test Date: 2023-12-13 Pat Name: KISHAN RAMSEY Department: Room: - Gender: Female Sole Molder: : 1995 Requested By: HOMAR LEWIS Order Number: [id number] Reading MD: HOMAR LEWIS Measurements Intervals [place] Rate: 72 P: 46 ID: [id number] QRS: 56 QRSD: 82 T: 40 QT: 374 QTc: 399 Interpretive Statements 1100 Sinus rhythm 1102 Sinus arrhythmia 8102 Low QRS voltage in chest leads 9120 atypical ECG No previous ECG available for comparison Electronically Signed On 12-14-2023 6:42:56 EDT by HOMAR LEWIS
[2023-12-13 11:30] LABS: Basophils Absolute Auto 0.1 10^3/uL (0.0-0.1); Basophils Percent Auto 0.6 % (0.2-2.0); Eosinophils Absolute Auto 0.3 10^3/uL (0.0-0.7); Eosinophils Percent Auto 4.3 % (0.9-7.0); Hematocrit 37.9 % (36.0-48.0); Hemoglobin 12.2 g/dL (12.0-16.0); Immature Granulocytes Abs Auto 0.02 10^3/uL (0.00-0.03); Immature Granulocytes Pct Auto 0.3 % (0.0-0.5); Lymphocytes Absolute Auto 2.2 10^3/uL (1.2-3.8); Lymphocytes Percent Auto 28.4 % (20.5-60.0); Mean Corpuscular HGB Conc 32.2 g/dL (29.9-35.2); Mean Corpuscular Hemoglobin 27.7 pg (26.7-34.0); Mean Corpuscular Volume 86.1 fL (81.0-99.0); Mean Platelet Volume 10.9 fL (9.5-13.5); Monocytes Absolute Auto 0.7 10^3/uL (0.3-0.8); Monocytes Percent Auto 8.8 % (1.7-12.0); Neutrophils Absolute Auto 4.4 10^3/uL (1.4-6.5); Neutrophils Percent Auto 57.6 % (43.0-75.0); Platelet Count 224 10^3/uL (150-450); Red Cell Distribution Width 14.3 % (11.0-15.0); White Blood Count 7.7 10^3/uL (4.0-11.0)
[2023-12-13 12:07] LABS: Alanine Aminotransferase 20 U/L (14-59); Albumin Globulin Ratio 0.9; Alkaline Phosphatase 82 U/L (46-116); Anion Gap 13.7; Aspartate Amino Transferase 16 U/L (15-37); BUN Creatinine Ratio 10.7; Bilirubin Total 0.4 mg/dL (0.2-1.0); Chloride 107 mmol/L (98-107); Estimated GFR (African America >60 (>=60); Estimated GFR (Non-African Ame >60 (>=60); Globulin 3.5 g/dL; Glucose 87 mg/dL (74-106); HCG Quantitative 10726 mIU/mL; Potassium 3.7 mmol/L (3.5-5.1); Sodium 141 mmol/L (136-145); Total Protein 6.5 g/dL (6.4-8.2)
[2023-12-13] MEDS: 0.9 % SODIUM CHLORIDE 1,000 ML 999 ML IV (12:13)
--- NOTE | 2023-12-13 12:30 | ED.GENADUL1 ---
HPI HPI - General Adult General Chief complaint: Seizure Stated complaint: WEAKNESS POSSIBLE SEIZURE Time Seen by Provider: 12/13/23 10:50 Source: patient Mode of arrival: walk-in Limitations: no limitations History of Present Illness HPI narrative: Patient presents to ED after a possible syncopal versus seizure episode yesterday. Patient was at [place] yesterday and they had just gotten there and she felt like she was going to pass out. She said she did eat and drink that morning and was feeling okay but when they got to the park she was walking around and she felt like she was going to pass out. She was standing in a line and told her significant other that she felt like she was going to pass out so he grabbed her and she did pass out. He laid her to the ground and said her arms were very stiff but once he laid her down she started to come to pretty quickly. She said she had a mild headache yesterday and was tired but no other concerns. She did not have confusion throughout the day or any neurological deficit. She did have a home test that was positive. No lower abdominal pain no back pain no abnormal vaginal bleeding or spotting. This is her fourth she has 2 children at home and had 1 stillborn at 27 weeks. At this time she is alert and oriented in no acute distress no vomiting no chest pain no abdominal pain. Neurologically intact. Vital signs stable. No hypertension. Related Data Allergies Allergy/AdvReac Type Severity Reaction Status Date / Time No Known Drug Allergies Allergy Verified 12/13/23 10:47 Opioid HPI Opioid Management Most Recent Opioid Data: No Data to Display Review of Systems ROS Status of ROS 10 or more systems reviewed and unremarkable except as noted in history and below Exam Narrative Exam Narrative: Time Seen: [] Vital Signs: [Per nurse's notes.] General: [Alert] Skin: [Warm, dry, no rash.] Head: [Normocephalic, atraumatic.] Neck: [Supple, trachea midline.] Eye: [Pupils are equal, round and reactive to light, extraocular movements are intact, normal conjunctiva.] Ears, nose, mouth and throat: oral mucosa moist. Cardiovascular: [Regular rate and rhythm, no murmur.] Respiratory: [Lungs are clear to auscultation, respirations are non-labored, breath sounds are equal.] Chest wall: [No tenderness, no deformity.] Gastrointestinal: [Soft, nontender, non distended, normal bowel sounds.] MSK: 5 out of 5 muscle strength x 4 extremities no calf pain or edema Lymphatics: [No lymphadenopathy.] Psychiatric: [Cooperative, appropriate mood & affect.] Neurological: [Alert and oriented to person, place, time, and situation, no focal neurological deficit observed.] Constitutional Vital Signs, click to edit/add: Last Vital Signs Temp 98.2 F 12/13/23 10:49 Pulse 90 12/13/23 10:49 Resp 18 12/13/23 10:49 BP 118/71 12/13/23 10:49 Pulse Ox 99 12/13/23 10:49 O2 Del Method Room Air 12/13/23 10:49 Course Vital Signs Vital signs: Vital Signs Temperature 98.2 F 12/13/23 10:49 Pulse Rate 90 12/13/23 10:49 Respiratory Rate 18 12/13/23 10:49 Blood Pressure 118/71 12/13/23 10:49 Pulse Oximetry 99 12/13/23 10:49 Oxygen Delivery Method Room Air 12/13/23 10:49 Temperature 98.2 F 12/13/23 10:49 Pulse Rate 90 12/13/23 10:49 Respiratory Rate 18 12/13/23 10:49 Blood Pressure 118/71 12/13/23 10:49 Pulse Oximetry 99 12/13/23 10:49 Oxygen Delivery Method Room Air 12/13/23 10:49 Medical Decision Making MDM Narrative Medical decision making narrative: Patient's labs are nonacute. We did forego CT scan at this time. She has no neurological deficits and no headache. She is and did not want the exposure of radiation. We also did not do a chest x-ray due to . Beta quant came back elevated so she should be about 4 5 weeks which is consistent with her last menstrual period being around November 03. I told patient to please call her doctor on Thursday to make a follow-up appointment. 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 Please refrain from driving or operating machinery until we are sure that she is in the clear from her further outpatient workup. Patient expresses understanding and is comfortable with care plan for home. Please return to the ER if you have an additional episode. Differential Diagnosis Differential Diagnosis: Seizure, syncope, electrolyte abnormality, Medical Records Medical records reviewed: Yes I reviewed the patient's medical records Lab Data Lab results reviewed: Yes I reviewed the patient's lab results Labs: Lab Results 12/13/23 Range/Units 11:00 WBC 7.7 (4.0-11.0) 10^3/uL RBC 4.40 (4.20-5.40) 10^6/uL Hgb 12.2 (12.0-16.0) g/dL Hct 37.9 (36.0-48.0) % MCV 86.1 (81.0-99.0) fL MCH 27.7 (26.7-34.0) pg MCHC 32.2 (29.9-35.2) g/dL RDW 14.3 (11.0-15.0) % Plt Count 224 (150-450) 10^3/uL MPV 10.9 (9.5-13.5) fL Neut % (Auto) 57.6 (43.0-75.0) % Lymph % (Auto) 28.4 (20.5-60.0) % [place] % (Auto) 8.8 (1.7-12.0) % Eos % (Auto) 4.3 (0.9-7.0) % Baso % (Auto) 0.6 (0.2-2.0) % Neut # (Auto) 4.4 (1.4-6.5) 10^3/uL Lymph # (Auto) 2.2 (1.2-3.8) 10^3/uL [place] # (Auto) 0.7 (0.3-0.8) 10^3/uL Eos # (Auto) 0.3 (0.0-0.7) 10^3/uL Baso # (Auto) 0.1 (0.0-0.1) 10^3/uL Abs Immat Gran (auto) 0.02 (0.00-0.03) 10^3/uL Imm/Tot Granulo (auto) 0.3 (0.0-0.5) % Sodium 141 (136-145) mmol/L Potassium 3.7 (3.5-5.1) mmol/L Chloride 107 (98-107) mmol/L Carbon Dioxide 24.0 (21.0-32.0) mmol/L Anion Gap 13.7 BUN 6.0 L (7.0-18.0) mg/dL Creatinine 0.56 (0.55-1.02) mg/dL Est GFR ( Amer) >60 (>=60) Est GFR (Non-Af Amer) >60 (>=60) BUN/Creatinine Ratio 10.7 Glucose 87 (74-106) mg/dL Calcium 8.0 L (8.5-10.1) mg/dL Magnesium 2.0 (1.8-2.4) mg/dL Total Bilirubin 0.4 (0.2-1.0) mg/dL AST 16 (15-37) U/L ALT 20 (14-59) U/L Alkaline Phosphatase 82 (46-116) U/L Total Protein 6.5 (6.4-8.2) g/dL Albumin 3.0 L (3.4-5.0) g/dL Globulin 3.5 g/dL Albumin/Globulin Ratio 0.9 HCG, Quant 18816 mIU/mL ECG Data Interpretation: EKG INTERPRETATION Time: []1219 Rate: []72 Rhythm: _ []Normal sinus rhythm ST segments: _ [] T waves: _ [] Ectopy: _ [] P wave/HI interval: _ [] QRS interval: _ [] QT interval: _ [] Comparison: _ [] Comparison EKG date: [] Performed by: [self]No acute ST elevation or depression Discharge Plan Discharge Stand Alone Forms: Portal Instructions Chief Complaint: Seizure Clinical Impression: Syncope Patient Disposition: Home, Self-Care Time of Disposition Decision: 12:37 Condition: Good Mode of Transportation: Private Vehicle Print Language: Icelandic Instructions: Syncope (ED) Referrals: Tong Beltran MD [Primary Care Provider] - 1 week
== END 2023-12-13 13:16 | disposition home or self-care (01) ==
PROVIDERS: Emergency Provider Emergency Medicine; PCP Family Medicine
DX: O26.891 Other specified pregnancy related conditions, first trimester (principal); R55 Syncope and collapse; Z3A.01 Less than 8 weeks gestation of pregnancy
CPT/HCPCS: 36415; 80053; 80307; 83735; 84702; 85025; 93005; 99284

== ENCOUNTER 2024-01-01 08:58 | Outpatient (OUT) | payer OTHER, SELFPAY ==
--- NOTE | 2024-01-01 09:01 | US_ITS ---
[address] [address] Patient Name: KISHAN RAMSEY MRN: [id number] date: 1995 Sex: F Assigned Patient Location: [facility] Current Patient Location: [facility] Accession/Order Number: [id number] Exam Date: 01/01/2024 09:01 Report Date: 01/01/2024 09:34 At the request of: KATELYN DUVALL Procedure: US OB transvaginal EXAMINATION: US OB transvaginal HISTORY: MISSED MENSES COMPARISON: No relevant comparison available. FINDINGS: Love intrauterine gestation Gestational sac: 3.01 cm, 7 weeks 6 days CRL: 1.7 cm, 20 weeks 3 days Yolk sac: 3.8 mm Heart rate: 174 beats minute Cervix: Closed, 4.5 cm The uterus is normal, anteverted, anteflexed The ovaries are normal Clinical age: 8 weeks 3 days Clinical SANCHO: 08/09/2024 Ultrasound age: 8 weeks 3 days Ultrasound SANCHO: 08/09/2024 US/US OB transvaginal IMPRESSION: Viable love intrauterine gestation measuring 8 weeks 3 days Electronically authenticated by: AKUA MELENDEZ Date: 01/01/2024 09:34
--- OUTSIDE RECORDS SUMMARY | 2024-01-01 09:07 | XMS_ITS | CCD ---
Author Organization [facility] ion [facility] Care Team Providers Care Tube Bender Hand Name Role Phone KIM SUTHERLAND Unavailable Unavailable WILLY CONKLIN Unavailable Unavailable HOMAR LEWIS Unavailable Unavailable HOMAR LEWIS Unavailable Unavailable No, Physician Primary Care Provider Unavailabl e NO, PHYSICIAN Primary Care Unavailable JAMES ALCAZAR Attending Unavailable Unavailable Primary Care Provider Unavailabl e Devon DOQueta Primary Care Provider [phone] Bret Long Unavailable RICE RICE, QUETA QUETA M~[id number] Attending Unavailable RICE RICE, QUETA QUETA M~[id number] Primary Ca re Unavailable RICE RICE, QUETA QUETA M~[id number] Attending Unavailable RICE RICE, QUETA QUETA M~[id number] Primary Ca re Unavailable RICE RICE, QUETA QUETA M~[id number] Attending Unavailable RICE RICE, QUETA QUETA M~[id number] Primary Ca re Unavailable RICE RICE, QUETA QUETA M~[id number] Attending Unavailable RICE RICE, QUETA QUETA M~[id number] Primary Ca re Unavailable RICE RICE, QUETA QUETA M~[id number] Referring Unavailable RICE RICE, QUETA QUETA M~[id number] Primary Ca re Unavailable ITA REYES Admitting Unavailable Marco Campos Consulting Unavailable ITA REYES Attending Unavailable FARAZY ., DR GRAF Primary Care Unavailable ITA REYES Consulting Unavailable FARAZY ., DR GRAF Primary Care Unavailable HOY [...] Admitting Unavailab Homar Mcgowan Primary Care Unavailable LOURDES CHRISTIE Attending Unavailable Allergies Allergy Classification Reported Allergen(s) Allergy Type Date of Onset Reaction(s) Facility (1 source) No Known Medication Allergies; Translations: [No Known Medication Allergies] Propensity to adverse reactions (disorder) [facility] Repository Medications Current Medications Medication Drug [...] Interpretation Reference Range Facility Facesheeton 03-02-2023 Facesheet [id number] CD:127 Normal [facility] Ambulatory Visit Summaryon 0 02-27-2023 Ambulatory [...] History of pre-eclampsia Insomnia Migraines Overweight Normal [facility] RAD - Ultrasound Reporton RAD - Ultrasound Report [id number] D:127 Normal [facility] Physician Referralon 023 Physician Referral [id number] D:127 Normal [facility] INSULINon 11-08-2022 Insulin 7.7 uIU/mL Normal 2.6-24.9 [facility] Comment on above: Performed By: #### V AMAURY IRON #### [facility] [address] [place] [address] Dr. Chucho Jesus CBC AUTO DIFFon 11-07-2022 BASO # 0.0 103/ul Normal 0.0-0.1 [facility] Comment on above: Performed By: #### V ITAD, IRON #### [facility] [address] [place] [address] Dr. Chucho Jesus Basophils/100 WBC (Bld) 0.6 % Normal 0.2-2.0 [facility] Comment on above: Performed By: #### V ITAD, IRON #### [facility] [address] [place] [address] Dr. Chucho Jesus EO # 0.1 103/ul Normal 0.0-0.7 [facility] Comment on above: Performed By: #### V ITAD, IRON #### [facility] [address] [place] [address] Dr. Chucho Jesus Eosinophils/100 WBC (Bld) 1.4 % Normal 0.9-7.0 [facility] Comment on above: Performed By: #### V ITAD, IRON #### [facility] [address] [place] [address] Dr. Chucho Jesus Erythrocyte distribution width (RBC) [Ratio] 13.9 % Normal 11.0-15.0 [facility] Comment on above: Performed By: #### V ITAD, IRON #### [facility] [address] [place] [address] Dr. Chucho Jesus Hematocrit (Bld) [Volume fraction] 45.6 % Normal 36.0-48.0 [facility] Comment on above: Performed By: #### V ITAD, IRON #### [facility] [address] [place] [address] Dr. Chucho Jesus Hemoglobin (Bld) [Mass/Vol] 15.1 g/dL Normal 12.0-16.0 [facility] Comment on above: Performed By: #### V ITAD, IRON #### [facility] [address] [place] [address] Dr. Chucho Jesus IG # 0.01 10e3/ul Normal 0.00-0.03 [facility] Comment on above: Performed By: #### V ITAD, IRON #### [facility] [address] [place] [address] Dr. Chucho Jesus IG % 0.1 % Normal 0.0-0.5 [facility] Comment on above: Performed By: #### V ITAD, IRON #### [facility] [address] [place] [address] Dr. Chucho Jesus LYMPH # 1.9 103/ul Normal 1.2-3.8 [facility] Comment on above: Performed By: #### V ITAD, IRON #### [facility] [address] [place] [address] Dr. Chucho Jesus Lymphocytes/100 WBC (Bld) 26.3 % Normal 20.5-60.0 [facility] Comment on above: Performed By: #### V ITAD, IRON #### [facility] [address] [place] [address] Dr. Chucho Jesus MANUAL DIFF REQ NO Normal [facility] Comment on above: Performed By: #### V ITAD, IRON #### [facility] [address] [place] [address] Dr. Chucho Jesus MCH (RBC) [Entitic mass] 27.9 pg Normal 26.7-34.0 [facility] Comment on above: Performed By: #### V ITAD, IRON #### [facility] [address] [place] [address] Dr. Chucho Jesus MCHC (RBC) [Mass/Vol] 33.1 g/dL Normal 29.9-35.2 [facility] Comment on above: Performed By: #### V ITAD, IRON #### [facility] [address] [place] [address] Dr. Chucho Jesus MCV (RBC) [Entitic vol] 84.1 fL Normal 81.0-99.0 [facility] Comment on above: Performed By: #### V ITAD, IRON #### [facility] [address] [place] [address] Dr. Chucho Jesus MONO # 0.5 103/ul Normal 0.3-0.8 [facility] Comment on above: Performed By: #### V ITAD, IRON #### [facility] [address] [place] [address] Dr. Chucho Jesus Monocytes/100 WBC (Bld) 7.3 % Normal 1.7-12.0 [facility] Comment on above: Performed By: #### V ITAD, IRON #### [facility] [address] [place] [address] Dr. Chucho Jesus NEUT # 4.6 103/ul Normal 1.4-6.5 [facility] Comment on above: Performed By: #### V ITAD, IRON #### [facility] [address] [place] [address] Dr. Chucho Jesus Neutrophils/100 WBC (Bld) 64.3 % Normal 43.0-75.0 [facility] Comment on above: Performed By: #### V ITAD, IRON #### [facility] [address] [place] [address] Dr. Chucho Jesus Platelet mean volume (Bld) [Entitic vol] 10.9 fL Normal 9.5-13.5 [facility] Comment on above: Performed By: #### V ITAD, IRON #### [facility] [address] [place] [address] Dr. Chucho Jesus PLT 226 103/ul Normal 150-450 [facility] Comment on above: Performed By: #### V ITAD, IRON #### [facility] [address] [place] [address] Dr. Chucho Jesus RBC 5.42 106/ul Critically high 4.20-5.40 [facility] Comment on above: Performed By: #### V ITAD, IRON #### [facility] [address] [place] [address] Dr. Chucho Jesus WBC 7.2 103/ul Normal 4.0-11.0 [facility] Comment on above: Performed By: #### V ITAD, IRON #### [facility] [address] [address] [address] Chucho Jesus FREE THYROXINE INDEX T7on FTI 3.29 Normal 1.30-4.50 [facility] Comment on above: Performed By: #### V ITAD, IRON #### [facility] [address] [address] [address] Chucho Jesus T3U 35.0 % Normal 30.0-39.0 [facility] Comment on above: Performed By: #### V ITAD, IRON #### [facility] [address] [address] [address] Chucho Jesus T4 [Mass/Vol] 9.40 ug/dL Normal 4.80-13.90 [facility] Comment on above: Performed By: #### V ITSONIYA, IRON #### [facility] [address] [address] [address] Chucho Jesus GLYCOHEMOGLOBIN A1Con 2022 ADA RECOMMENDATION SEE BELOW Normal [facility] Comment on above: Result Comment: ADA RECOMMENDED LIMIT 4.0 - 6.0 ADA THERAPEUTIC TARGET < 7.0 ACTION SUGGESTED > 7.0 Performed By: #### A 1C #### [facility] [address] [address] [address] Chucho Jesus Glucose [Mass/Vol] 94 mg/dL Normal [facility] Comment on above: Performed By: #### A 1C #### [facility] [address] [address] [address] Chucho Jesus HbA1c (Bld) [Mass fraction] 4.9 % Normal 4.5-6.2 [facility] Comment on above: Performed By: #### A 1C #### [facility] [address] [address] [address] Chucho Jesus IRONon 11-07-2022 Iron [Mass/Vol] 81.0 ug/dL Normal 50.0-170.0 [facility] Comment on above: Performed By: #### V ITAD, IRON #### [facility] [address] [address] [address] Chucho Jesus LIPID PROFILEon 11-07-2022 CHOL-HDL RATIO NORM SEE BELOW Normal [facility] Comment on above: Result Comment: 3.3 - 4.4 LOW RISK 4.4 - 7.1 AVERAGE RISK 7.1 - 11.0 MODERATE RISK >11.0 HIGH RISK Performed By: #### V ITAD, IRON #### [facility] [address] [address] [address] Chucho Jesus Cholesterol [Mass/Vol] 126 mg/dL Normal <=200 [facility] Comment on above: Performed By: #### V ITAD, IRON #### [facility] [address] [address] [address] Chucho Jesus Cholesterol in HDL [Mass/Vol] 38 mg/dL Critically low 40-60 [facility] Comment on above: Performed By: #### V ITAD, IRON #### [facility] [address] [address] [address] Chucho Jesus Cholesterol in LDL [Mass/Vol] 79.4 mg/dL Normal [facility] Comment on above: Performed By: #### V ITAD, IRON #### [facility] [address] [address] [address] Chucho Jesus Cholesterol.total/C holesterol in HDL [Mass ratio] 3.3 {ratio} Normal [facility] Comment on above: Performed By: #### V ITAD, IRON #### [facility] [address] [address] [address] Chucho Jesus HDL NORMAL > or = 60 mg/dl - LO W CARDIOVASCULAR RISK <40 mg/dl - HIGH CARDIOVASCULAR RISK Normal [facility] Comment on above: Performed By: #### V ITAD, IRON #### [facility] [address] [address] [address] Chucho Jesus LDL CALC NORMAL SEE BELOW Normal [facility] Comment on above: Result Comment: <100 mg/dl OPTIMAL 100 - 129 mg/dl NEAR OR ABOVE OPTIMAL 130 - 159 mg/dl BORDERLINE HIGH 160 - 189 mg/dl HIGH >190 mg/dl VERY HIGH Performed By: #### V ITAD, IRON #### [facility] [address] [address] [address] Chucho Jesus Triglyceride [Mass/Vol] 43 mg/dL Normal <=150 [facility] Comment on above: Performed By: #### V ITAD, IRON #### [facility] [address] [place] [address] Dr. Chucho Jesus VLDL CALC 8.6 mg/dL Normal [facility] Comment on above: Performed By: #### V ITAD, IRON #### [facility] [address] [place] [address] Dr. Chucho Jesus PROF 14(COMP METB)on 023 Albumin [Mass/Vol] 4.2 g/dL Normal 3.4-5.0 [facility] Comment on above: Performed By: #### V ITAD, IRON #### [facility] [address] [place] [address] Dr. Chucho Jesus Albumin/Globulin [Mass ratio] 1.1 {ratio} Normal [facility] Comment on above: Performed By: #### V ITAD, IRON #### [facility] [address] [place] [address] Dr. Chucho Jesus ALP [Catalytic activity/Vol] 93 U/L Normal 46-116 [facility] Comment on above: Performed By: #### V ITAD, IRON #### [facility] [address] [place] [address] Dr. Chucho Jesus ALT [Catalytic activity/Vol] 16 U/L Normal 14-59 [facility] Comment on above: Performed By: #### V ITAD, IRON #### [facility] [address] [place] [address] Dr. Chucho Jesus Anion gap [Moles/Vol] 14.3 mmol/L Normal [facility] Comment on above: Performed By: #### V ITAD, IRON #### [facility] [address] [place] [address] Dr. Chucho Jesus AST [Catalytic activity/Vol] 16 U/L Normal 15-37 [facility] Comment on above: Performed By: #### V ITAD, IRON #### [facility] [address] [place] [address] Dr. Chucho Jesus Bilirubin [Mass/Vol] 1.0 mg/dL Normal 0.2-1.0 [facility] Comment on above: Performed By: #### V ITAD, IRON #### [facility] [address] [place] [address] Dr. Chucho Jesus Calcium [Mass/Vol] 9.4 mg/dL Normal 8.5-10.1 [facility] Comment on above: Performed By: #### V ITAD, IRON #### [facility] [address] [place] [address] Dr. Chucho Jesus Chloride [Moles/Vol] 103 mmol/L Normal 98-107 [facility] Comment on above: Performed By: #### V ITAD, IRON #### [facility] [address] [place] [address] Dr. Chucho Jesus CO2 [Moles/Vol] 24.9 mmol/L Normal 21.0-32.0 [facility] Comment on above: Performed By: #### V ITAD, IRON #### [facility] [address] [place] [address] Dr. Chucho Jesus Creatinine [Mass/Vol] 0.68 mg/dL Normal 0.55-1.02 [facility] Comment on above: Performed By: #### V ITAD, IRON #### [facility] [address] [place] [address] Dr. Chucho Jesus EGFR-AF KAZAKH >60 Normal >=60 [facility] Comment on above: Performed By: #### V ITAD, IRON #### [facility] [address] [place] [address] Dr. Chucho Jesus EGFR-NON AF KAZAKH >60 Normal >=60 [facility] Comment on above: Performed By: #### V ITAD, IRON #### [facility] [address] [place] [address] Dr. Chucho Jesus Globulin (S) [Mass/Vol] 3.9 g/dL Normal [facility] Comment on above: Performed By: #### V ITAD, IRON #### [facility] [address] [place] [address] Dr. Chucho Jesus Glucose [Mass/Vol] 89 mg/dL Normal 74-106 [facility] Comment on above: Performed By: #### V AMAURY, IRON #### [facility] [address] [place] [address] Dr. Chucho Jesus Potassium [Moles/Vol] 4.2 mmol/L Normal 3.5-5.1 [facility] Comment on above: Performed By: #### V AMAURY, IRON #### [facility] [address] [place] [address] Dr. Chucho Jesus Protein [Mass/Vol] 8.1 g/dL Normal 6.4-8.2 [facility] Comment on above: Performed By: #### V AMAURY, IRON #### [facility] [address] [place] [address] Dr. Chucho Jesus Sodium [Moles/Vol] 138 mmol/L Normal 136-145 [facility] Comment on above: Performed By: #### V AMAURY, IRON #### [facility] [address] [place] [address] Dr. Chucho Jesus Urea nitrogen [Mass/Vol] 9.0 mg/dL Normal 7.0-18.0 [facility] Comment on above: Performed By: #### V AMAURY, IRON #### [facility] [address] [place] [address] Dr. Chucho Jesus Urea nitrogen/Creatinine [Mass ratio] 13.2 mg/mg Normal [facility] Comment on above: Performed By: #### V AMAURY, IRON #### [facility] [address] [place] [address] Dr. Chucho Jesus TSHon 11-07-2022 TSH 1.668 uIU/mL Normal 0.358-3.740 [facility] Comment on above: Performed By: #### V AMAURY, IRON #### [facility] [address] [place] [address] Dr. Chucho Jesus [facility]on SARS-CoV-2 (COVID-19) RNA DMITRY+probe Ql (Unsp spec) Not detected Normal NOT DETECTED [facility] Comment on above: Result Comment: When diagnostic [...] for this test is supported by the [employer] of Health and Human Service's declaration that [...] longer be used). Performed By: #### V ITSONIYA, IRON #### [facility] [address] [place] [address] Dr. Chucho Jesus Covid-19 PCR ([facility])on SARS-CoV-2 (COVID-19) RNA DMITRY+probe Ql (Unsp spec) Not detected Normal NOT DETECTED [facility] Comment on above: Result Comment: When diagnostic [...] for this test is supported by the [employer] of Health and Human Service's declaration that [...] used). Performed By: #### C VDTBH #### [facility] [address] [place] [address] Dr. Chucho Jesus INFLUENZA A [facility] B AGon 08[facility] SEE BELOW Normal [facility] Comment on above: Result Comment: Nega tive for Flu A protein angiten. Infection due to Flu A cannot be ruled out. Flu A angiten in the sample may be below the detection limit of the test. Performed By: #### I NFLUAB #### [facility] [address] [place] [address] Dr. Chucho Jesus INFLUBNEG SEE BELOW Normal [facility] Comment on above: Result Comment: Nega tive for Flu B protein antigen. Infection due to Flu B cannot be ruled out. Flu B antigen in the sample may be below the detection limit of the test. Performed By: #### I NFLUAB #### [facility] [address] [place] [address] Dr. Chucho Jesus INFLUENZA A AG Negative Normal NEGATIVE SEE COMMENT [facility] Comment on above: Performed By: #### I NFLUAB #### [facility] [address] [place] [address] Dr. Chucho Jesus INFLUENZA B AG Negative Normal NEGATIVE SEE COMMENT [facility] Comment on above: Performed By: #### I NFLUAB #### [facility] [address] [place] [address] Dr. Chucho Jesus Covid-19 PCR ([facility])on 05-07 SARS-CoV-2 (COVID-19) RNA DMITRY+probe Ql (Unsp spec) Not detected Normal NOT DETECTED [facility] Comment on above: Result Comment: When diagnostic [...] for this test is supported by the [place] of Health and Human Service's declaration that [...] Performed By: #### V ITAD, IRON #### [facility] [address] [place] [address] Dr. Chucho Jesus INFLUENZA A AND B AGon 05-26 INFLUANEGH SEE BELOW Normal [facility] Comment on above: Result Comment: Nega tive for Flu A protein angiten. Infection due to Flu A cannot be ruled out. Flu A angiten in the sample may be below the detection limit of the test. Performed By: #### V ITAD, IRON #### [facility] [address] [place] [address] Dr. Chucho Jesus INFLUBNEGH SEE BELOW Normal [facility] Comment on above: Result Comment: Nega tive for Flu B protein antigen. Infection due to Flu B cannot be ruled out. Flu B antigen in the sample may be below the detection limit of the test. Performed By: #### V ITAD, IRON #### [facility] [address] [place] [address] Dr. Chucho Jesus INFLUENZA A AG Negative Normal NEGATIVE SEE COMMENT [facility] Comment on above: Performed By: #### V ITAD, IRON #### [facility] [address] [place] [address] Dr. Chucho Jesus INFLUENZA B AG Negative Normal NEGATIVE SEE COMMENT [facility] Comment on above: Performed By: #### V ITAD, IRON #### [facility] [address] [place] [address] Dr. Chucho Jesus INTERNAL CONTROLS Within Normal Limits Normal Wi thin Normal Limits [facility] Comment on above: Performed By: #### V ITAD, IRON #### [facility] [address] [place] [address] Dr. Chucho Jesus ER URINE PROFILEon 2 Bilirubin Ql (U) Negative Normal NEGATIVE [facility] Comment on above: Performed By: #### V ITAD, IRON #### [facility] [address] [place] [address] Dr. Chucho Jesus Clarity (U) CLEAR Normal CLEAR [facility] Comment on above: Performed By: #### V ITAD, IRON #### [facility] [address] [place] [address] Dr. Chucho Jesus Color (U) YELLOW Normal YELLOW [facility] Comment on above: Performed By: #### V ITAD, IRON #### [facility] [address] [place] [address] Dr. Chucho BAHENA A micrscopic examination will be performed if indicated. Normal [facility] Comment on above: Performed By: #### V ITAD, IRON #### [facility] [address] [place] [address] Dr. Chucho Jesus Glucose Ql (U) Negative Normal NEGATIVE [facility] Comment on above: Performed By: #### V ITAD, IRON #### [facility] [address] [place] [address] Dr. Chucho Jesus Hemoglobin Ql (U) Negative Normal NEGATIVE [facility] Comment on above: Performed By: #### V ITAD, IRON #### [facility] [address] [place] [address] Dr. Chucho Jesus Ketones Ql (U) >=80 Abnormal NEGATIVE [facility] Comment on above: Performed By: #### V ITAD, IRON #### [facility] [address] [place] [address] Dr. Chucho Jesus LEUKOCYTES Negative Normal NEGATIVE [facility] Comment on above: Performed By: #### V ITAD, IRON #### [facility] [address] [place] [address] Dr. Chucho Jesus Nitrite Ql (U) Negative Normal NEGATIVE [facility] Comment on above: Performed By: #### V ITAD, IRON #### [facility] [address] [place] [address] Dr. Chucho Jesus pH (U) 6.0 [pH] Normal 5-9 [facility] Comment on above: Performed By: #### V ITAD, IRON #### [facility] [address] [address] [address] Chucho Jesus Protein (U) [Mass/Vol] 100 mg/dL Abnormal NEGATIVE/ TRACE [facility] Comment on above: Performed By: #### V ITAD, IRON #### [facility] [address] [address] [address] Chucho Jesus SPEC GRAVITY >=1.030 Abnormal 1.005-<=1.025 [facility] Comment on above: Performed By: #### V ITAD, IRON #### [facility] [address] [address] [address] Chucho Jesus UR MICRO IND INDICATED Normal [facility] Comment on above: Performed By: #### V ITAD, IRON #### [facility] [address] [place] [address] Dr. Chucho Jesus Urobilinogen Qn (U) 0.2 {Chelsea'U}/dL Normal 0.2 - 1. 0 [facility] Comment on above: Performed By: #### V ITAD, IRON #### [facility] [address] [place] [address] Dr. Chucho Jesus URon 05-22-2022 , QUAL Negative Normal NEGATIVE [facility] Comment on above: Performed By: #### V ITAD, IRON #### [facility] [address] [place] [address] Dr. Chucho Jesus URINE MICROSCOPIC ONLYon BACTERIA NONE SEEN Normal NONE SEEN [facility] Comment on above: Performed By: #### V ITAD, IRON #### [facility] [address] [place] [address] Dr. Chucho Jesus Bacteria identified Cx Nom (U) NOT INDICATED Normal [facility] Comment on above: Performed By: #### V ITAD, IRON #### [facility] [address] [address] [address] Chucho Jesus CAST NONE SEEN Normal NONE SEEN [facility] Comment on above: Performed By: #### V ITAD, IRON #### [facility] [address] [address] [address] Chucho Jesus Crystals LM Nom (Urine sed) NONE SEEN Normal NONE SEEN [facility] Comment on above: Performed By: #### V ITAD, IRON #### [facility] [address] [address] [address] Chucho Jesus Epithelial cells LM Ql (Urine sed) FEW Abnormal NONE SEEN /RARE [facility] Comment on above: Performed By: #### V ITAD, IRON #### [facility] [address] [address] [address] Chucho Jesus MUCOUS MODERATE Abnormal NONE SEEN [facility] Comment on above: Performed By: #### V ITAD, IRON #### [facility] [address] [place] [address] Dr. Chucho Jesus RBC NONE SEEN Abnormal 0-2 [facility] Comment on above: Performed By: #### V ITAD, IRON #### [facility] [address] [place] [address] Dr. Chucoh Jesus WBC NONE SEEN Normal NONE SEEN [facility] Comment on above: Performed By: #### V ITAD, IRON #### [facility] [address] [place] [address] Dr. Chucho Jesus XR LSPINE 2_3 VIEWSon [...] MARCO CAMPOS Date: 2022-05-22 12:28 Normal [facility] INSULINon 04-25-2022 Insulin 10.4 uIU/mL Normal 2.6-24.9 [facility] Comment on above: Performed By: #### V ITAD, IRON #### [facility] [address] [address] [address] Chucho Jesus CBC AUTO DIFFon 04-24-2022 BASO # 0.0 103/ul Normal 0.0-0.1 [facility] Comment on above: Performed By: #### C BC #### [facility] [address] [address] [address] Chucho Jesus Basophils/100 WBC (Bld) 0.6 % Normal 0.2-2.0 [facility] Comment on above: Performed By: #### C BC #### [facility] [address] [place] [address] Dr. Chucho Jesus EO # 0.1 103/ul Normal 0.0-0.7 [facility] Comment on above: Performed By: #### C BC #### [facility] [address] [place] [address] Dr. Chucho Jesus Eosinophils/100 WBC (Bld) 1.8 % Normal 0.9-7.0 [facility] Comment on above: Performed By: #### C BC #### [facility] [address] [place] [address] Dr. Chucho Jesus Erythrocyte distribution width (RBC) [Ratio] 12.9 % Normal 11.0-15.0 [facility] Comment on above: Performed By: #### C BC #### [facility] [address] [place] [address] Dr. Chucho Jesus Hematocrit (Bld) [Volume fraction] 45.6 % Normal 36.0-48.0 [facility] Comment on above: Performed By: #### C BC #### [facility] [address] [place] [address] Dr. Chucho Jesus Hemoglobin (Bld) [Mass/Vol] 14.7 g/dL Normal 12.0-16.0 [facility] Comment on above: Performed By: #### C BC #### [facility] [address] [place] [address] Dr. Chucho Jesus IG # 0.02 10e3/ul Normal 0.00-0.03 [facility] Comment on above: Performed By: #### C BC #### [facility] [address] [place] [address] Dr. Chucho Jesus IG % 0.3 % Normal 0.0-0.5 [facility] Comment on above: Performed By: #### C BC #### [facility] [address] [place] [address] Dr. Chuhco Jesus LYMPH # 1.6 103/ul Normal 1.2-3.8 [facility] Comment on above: Performed By: #### C BC #### [facility] [address] [place] [address] Dr. Chucho Jesus Lymphocytes/100 WBC (Bld) 24.5 % Normal 20.5-60.0 [facility] Comment on above: Performed By: #### C BC #### [facility] [address] [place] [address] Dr. Chucho Jesus MANUAL DIFF REQ NO Normal [facility] Comment on above: Performed By: #### C BC #### [facility] [address] [place] [address] Dr. Chucho Jesus MCH (RBC) [Entitic mass] 28.4 pg Normal 26.7-34.0 [facility] Comment on above: Performed By: #### C BC #### [facility] [address] [place] [address] Dr. Chucho Jesus MCHC (RBC) [Mass/Vol] 32.2 g/dL Normal 29.9-35.2 [facility] Comment on above: Performed By: #### C BC #### [facility] [address] [place] [address] Dr. Chucho Jesus MCV (RBC) [Entitic vol] 88.2 fL Normal 81.0-99.0 [facility] Comment on above: Performed By: #### C BC #### [facility] [address] [place] [address] Dr. Chucho Jesus MONO # 0.5 103/ul Normal 0.3-0.8 [facility] Comment on above: Performed By: #### C BC #### [facility] [address] [place] [address] Dr. Chucho Jesus Monocytes/100 WBC (Bld) 7.4 % Normal 1.7-12.0 [facility] Comment on above: Performed By: #### C BC #### [facility] [address] [address] [address] Chucho Jesus NEUT # 4.4 103/ul Normal 1.4-6.5 [facility] Comment on above: Performed By: #### C BC #### [facility] [address] [place] [address] Dr. Chucho Jesus Neutrophils/100 WBC (Bld) 65.4 % Normal 43.0-75.0 [facility] Comment on above: Performed By: #### C BC #### [facility] [address] [place] [address] Dr. Chucho Jesus Platelet mean volume (Bld) [Entitic vol] 9.9 fL Normal 9.5-13.5 [facility] Comment on above: Performed By: #### C BC #### [facility] [address] [place] [address] Dr. Chucho Jesus PLT 225 103/ul Normal 150-450 [facility] Comment on above: Performed By: #### C BC #### [facility] [address] [place] [address] Dr. Chucho Jesus RBC 5.17 106/ul Normal 4.20-5.40 [facility] Comment on above: Performed By: #### C BC #### [facility] [address] [place] [address] Dr. Chucho Jesus WBC 6.7 103/ul Normal 4.0-11.0 [facility] Comment on above: Performed By: #### C BC #### [facility] [address] [place] [address] Dr. Chucho Jesus FREE THYROXINE INDEX T7on FTI 3.29 Normal 1.30-4.50 [facility] Comment on above: Performed By: #### T 7, TSH, LIPID, CMP #### [facility] [address] [address] [address] Chucho Jesus T3U 27.0 % Critically low 30.0-39.0 [facility] Comment on above: Performed By: #### T 7, TSH, LIPID, CMP #### [facility] [address] [address] [address] Chucho Jesus T4 [Mass/Vol] 12.20 ug/dL Normal 4.80-13.90 [facility] Comment on above: Performed By: #### T 7, TSH, LIPID, CMP #### [facility] [address] [address] [address] Chucho Jesus GLYCOHEMOGLOBIN A1Con 2021 ADA RECOMMENDATION SEE BELOW Normal [facility] Comment on above: Result Comment: ADA RECOMMENDED LIMIT 4.0 - 6.0 ADA THERAPEUTIC TARGET < 7.0 ACTION SUGGESTED > 7.0 Performed By: #### A 1C #### [facility] [address] [address] [address] Chucho Jesus Glucose [Mass/Vol] 105 mg/dL Normal [facility] Comment on above: Performed By: #### A 1C #### [facility] [address] [address] [address] Chucho Jesus HbA1c (Bld) [Mass fraction] 5.3 % Normal 4.5-6.2 [facility] Comment on above: Performed By: #### A 1C #### [facility] [address] [place] [address] Dr. Chucho Jesus IRONon 04-24-2022 Iron [Mass/Vol] 48.0 ug/dL Critically low 50.0-170.0 [facility] Comment on above: Performed By: #### V ITAD, IRON #### [facility] [address] [place] [address] Dr. Chucho Jesus LIPID PROFILEon 04-24-2022 CHOL-HDL RATIO NORM SEE BELOW Normal [facility] Comment on above: Result Comment: 3.3 - 4.4 LOW RISK 4.4 - 7.1 AVERAGE RISK 7.1 - 11.0 MODERATE RISK >11.0 HIGH RISK Performed By: #### V ITAD, IRON #### [facility] [address] [address] [address] Chucho Jesus Cholesterol [Mass/Vol] 184 mg/dL Normal <=200 [facility] Comment on above: Performed By: #### V ITAD, IRON #### [facility] [address] [address] [address] Chucho Jesus Cholesterol in HDL [Mass/Vol] 55 mg/dL Normal 40-60 [facility] Comment on above: Performed By: #### V ITAD, IRON #### [facility] [address] [address] [address] Chucho Jesus Cholesterol in LDL [Mass/Vol] 116.6 mg/dL Normal [facility] Comment on above: Performed By: #### V ITAD, IRON #### [facility] [address] [place] [address] Dr. Chucho Jesus Cholesterol.total/C holesterol in HDL [Mass ratio] 3.3 {ratio} Normal [facility] Comment on above: Performed By: #### V ITAD, IRON #### [facility] [address] [address] [address] Chucho Jesus HDL NORMAL > or = 60 mg/dl - LO W CARDIOVASCULAR RISK <40 mg/dl - HIGH CARDIOVASCULAR RISK Normal [facility] Comment on above: Performed By: #### V ITAD, IRON #### [facility] [address] [address] [address] Chucho Jesus LDL CALC NORMAL SEE BELOW Normal [facility] Comment on above: Result Comment: <100 mg/dl OPTIMAL 100 - 129 mg/dl NEAR OR ABOVE OPTIMAL 130 - 159 mg/dl BORDERLINE HIGH 160 - 189 mg/dl HIGH >190 mg/dl VERY HIGH Performed By: #### V ITAD, IRON #### [facility] [address] [address] [address] Chucho Jesus Triglyceride [Mass/Vol] 62 mg/dL Normal <=150 [facility] Comment on above: Performed By: #### V ITAD, IRON #### [facility] [address] [address] [address] Chucho Jesus VLDL CALC 12.4 mg/dL Normal [facility] Comment on above: Performed By: #### V ITAD, IRON #### [facility] [address] [address] [address] Chucho Jesus PROF 14(COMP METB)on 022 Albumin [Mass/Vol] 3.7 g/dL Normal 3.4-5.0 [facility] Comment on above: Performed By: #### T 7, TSH, LIPID, CMP #### [facility] [address] [address] [address] Chucho Jesus Albumin/Globulin [Mass ratio] 0.9 {ratio} Normal [facility] Comment on above: Performed By: #### T 7, TSH, LIPID, CMP #### [facility] [address] [place] [address] Dr. Chucho Jesus ALP [Catalytic activity/Vol] 74 U/L Normal 46-116 [facility] Comment on above: Performed By: #### T 7, TSH, LIPID, CMP #### [facility] [address] [address] [address] Chucho Jesus ALT [Catalytic activity/Vol] 16 U/L Normal 14-59 [facility] Comment on above: Performed By: #### T 7, TSH, LIPID, CMP #### [facility] [address] [address] [address] Chucho Jesus Anion gap [Moles/Vol] 12.3 mmol/L Normal [facility] Comment on above: Performed By: #### T 7, TSH, LIPID, CMP #### [facility] [address] [address] [address] Chucho Jesus AST [Catalytic activity/Vol] 13 U/L Critically low 15-37 [facility] Comment on above: Performed By: #### T 7, TSH, LIPID, CMP #### [facility] [address] [address] [address] Chucho Jesus Bilirubin [Mass/Vol] 0.4 mg/dL Normal 0.2-1.0 [facility] Comment on above: Performed By: #### T 7, TSH, LIPID, CMP #### [facility] [address] [address] [address] Chucho Jesus Calcium [Mass/Vol] 8.9 mg/dL Normal 8.5-10.1 [facility] Comment on above: Performed By: #### T 7, TSH, LIPID, CMP #### [facility] [address] [place] [address] Dr. Chucho Jesus Chloride [Moles/Vol] 105 mmol/L Normal 98-107 [facility] Comment on above: Performed By: #### T 7, TSH, LIPID, CMP #### [facility] [address] [place] [address] Dr. Chucho Jesus CO2 [Moles/Vol] 26.6 mmol/L Normal 21.0-32.0 [facility] Comment on above: Performed By: #### T 7, TSH, LIPID, CMP #### [facility] [address] [place] [address] Dr. Chucho Jesus Creatinine [Mass/Vol] 0.68 mg/dL Normal 0.55-1.02 [facility] Comment on above: Performed By: #### T 7, TSH, LIPID, CMP #### [facility] [address] [place] [address] Dr. Chucho Jesus EGFR-AF KAZAKH >60 Normal >=60 [facility] Comment on above: Performed By: #### T 7, TSH, LIPID, CMP #### [facility] [address] [place] [address] Dr. Chucho Jesus EGFR-NON AF KAZAKH >60 Normal >=60 [facility] Comment on above: Performed By: #### T 7, TSH, LIPID, CMP #### [facility] [address] [place] [address] Dr. Chucho Jesus Globulin (S) [Mass/Vol] 4.3 g/dL Normal [facility] Comment on above: Performed By: #### T 7, TSH, LIPID, CMP #### [facility] [address] [place] [address] Dr. Chucho Jesus Glucose [Mass/Vol] 87 mg/dL Normal 74-106 [facility] Comment on above: Performed By: #### T 7, TSH, LIPID, CMP #### [facility] [address] [place] [address] Dr. Chucho Jesus Potassium [Moles/Vol] 3.9 mmol/L Normal 3.5-5.1 [facility] Comment on above: Performed By: #### T 7, TSH, LIPID, CMP #### [facility] [address] [place] [address] Dr. Chucho Jesus Protein [Mass/Vol] 8.0 g/dL Normal 6.4-8.2 [facility] Comment on above: Performed By: #### T 7, TSH, LIPID, CMP #### [facility] [address] [place] [address] Dr. Chucho Jesus Sodium [Moles/Vol] 140 mmol/L Normal 136-145 [facility] Comment on above: Performed By: #### T 7, TSH, LIPID, CMP #### [facility] [address] [place] [address] Dr. Chucho Jesus Urea nitrogen [Mass/Vol] 9.0 mg/dL Normal 7.0-18.0 [facility] Comment on above: Performed By: #### T 7, TSH, LIPID, CMP #### [facility] [address] [place] [address] Dr. Chucho Jesus Urea nitrogen/Creatinine [Mass ratio] 13.2 mg/mg Normal [facility] Comment on above: Performed By: #### T 7, TSH, LIPID, CMP #### [facility] [address] [place] [address] Dr. Chucho Jesus TSHon 04-24-2022 TSH 1.127 uIU/mL Normal 0.358-3.740 [facility] Comment on above: Performed By: #### T 7, TSH, LIPID, CMP #### [facility] [address] [place] [address] Dr. Chucho Jesus VITAMIN D 25 OHon 04-24-2022 VIT D 25-OH 35.2 ng/mL Normal [facility] Comment on above: Performed By: #### V ITAD, IRON #### [facility] [address], [place] [address] Dr. Chucho Jesus VIT D RANGES SEE BELOW Normal [facility] Comment on above: Result Comment: <20 ng/mL Vit D deficient 20 - <30 ng/mL Vit D insufficient 30 - 100 ng/mL Vit D sufficient >100 ng/mL Potential Toxicity Performed By: #### V ITAD, IRON #### [facility] [address], [place] [address] Dr. Chucho Jesus HCG ( test) Ql (U)O rdered By: James Churchill on 12-05-2020 Internal Control Pass [facility] Interpretation and review of laboratory results Normal [facility] POC , UrineOrdered By: James Churchill on 12-05-2020 HCG ( test) Ql (U) Negative Negative [facility] CTA CHEST WITH CONTRASTon CTA CHEST WITH [...] by:Ady Tran MD03/25/17Edited Result - FINAL Normal [facility] Basic Metabolic Profon 02-19 (cont.) Normal [facility] Comment on above: Result Comment: Aver age GFR for 20-29 years old: 116 mL/min/1.73sq mChronic Kidney Disease: <60 mL/min/1.73sq mKidney failure: <15 mL/min/1.73sq meGFR calculated using average adult body mass. Additional eGFR calculator available at:http://[email or web address]/multiple_crcl_2012.htm Performed By: #### C DP, BMP, TROPI ####[address] [place] [address] Anion gap 14 mmol/L Normal 03-[address] [facility] Comment on above: Performed By: #### C DP, BMP, TROPI ####[address] [place] [address] BUN/CRE Ratio 13 Normal - [facility] Comment on above: Performed By: #### C DP, BMP, TROPI ####[address] [place] [address] Calcium 9.2 mg/dL Normal 8.6-10.[address] [facility] Comment on above: Performed By: #### C DP, BMP, TROPI ####[address] [place] [address] Chloride 105 mmol/L Normal 98-[address] [facility] Comment on above: Performed By: #### C DP, BMP, TROPI ####[address] [place] [address] CO2 23 mmol/L Normal 20-[address] [facility] Comment on above: Performed By: #### C DP, BMP, TROPI ####[address] [place] [address] Creatinine 0.55 mg/dL Normal 0.50-0.[address] [facility] Comment on above: Performed By: #### C DP, BMP, TROPI ####[address] [place] [address] eGFR (non-black) mL/min/{1.73_m2} Normal >60 [facility] Comment on above: Performed By: #### C DP, BMP, TROPI ####[address] [place] [address] Glucose mass conc 96 mg/dL Normal 70-99 [facility] Comment on above: Performed By: #### C DP, BMP, TROPI ####[address] [place] [address] Potassium molar conc 3.6 mmol/L Low 3.7-5.[address] [facility] Comment on above: Performed By: #### C DP, BMP, TROPI ####[address] [place] [address] Sodium 142 mmol/L Normal 135-[address] [facility] Comment on above: Performed By: #### C DP, BMP, TROPI ####[address] [place] [address] Staging: Normal [facility] Comment on above: Result Comment: Stag e 1: Some kidney damage normal GFRStage 2: Mild kidney damage GFR 60-89Stage 3: Moderate kidney damage GFR 30-59Stage 4: Severe kidney damage GFR 15-29Stage 5: Severe kidney damage GFR <15ESRD - chronic treatment by dialysis or transplantPerformed at [address] [place] [address] Performed By: #### C DP, BMP, TROPI ####[address] [place] [address] Urea nitrogen 7 mg/dL Normal 6-20 [facility] Comment on above: Performed By: #### C DP, BMP, TROPI ####[address] , [place] [address] CBC with Diffon 02-19-2017 Abs. Basophil 0.00 k/uL Normal 0.0-0.2 [facility] Comment on above: Result Comment: Perf ormed at [address] [place] [address] Performed By: #### C DP, BMP, TROPI ####[address] , [place] [address] Abs.Neutrophil (Seg) 7.10 k/uL Normal 1.8-8.[address] [facility] Comment on above: Performed By: #### C DP, BMP, TROPI ####[address] , [place] [address] Basophils/100 WBC Auto (Bld) 0 % Normal [facility] Comment on above: Performed By: #### C DP, BMP, TROPI ####[address] , [place] [address] Eosinophils 0.30 10*3/uL Normal 0.0-0.4 [facility] Comment on above: Performed By: #### C DP, BMP, TROPI ####[address] [place] [address] Eosinophils/100 leukocytes 3 % Normal [facility] Comment on above: Performed By: #### C DP, BMP, TROPI ####[address] [place] [address] Erythrocyte distribution width Auto Ratio (RBC) 13.6 % Normal 12.1-15.[address] [facility] Comment on above: Performed By: #### C DP, BMP, TROPI ####[address] [place] [address] Erythrocytes (RBC) 5.03 10*6/uL Normal 4.0-5.2 [facility] Comment on above: Performed By: #### C DP, BMP, TROPI ####[address] [place] [address] Hematocrit (HCT) 40.2 % Normal 36-46 [facility] Comment on above: Performed By: #### C DP, BMP, TROPI ####[address] [place] [address] Hemoglobin mass conc (Bld) 13.2 g/dL Normal 12.0-16.[address] [facility] Comment on above: Performed By: #### C DP, BMP, TROPI ####[address] [place] [address] Lymphocytes 2.90 10*3/uL Normal 1.2-5.2 [facility] Comment on above: Performed By: #### C DP, BMP, TROPI ####[address] [place] [address] Lymphocytes/100 leukocytes 27 % Normal [facility] Comment on above: Performed By: #### C DP, BMP, TROPI ####[address] [place] [address] MCH 26.2 pg Normal 26-[address] [facility] Comment on above: Performed By: #### C DP, BMP, TROPI ####[address] [place] [address] MCHC mass conc (RBC) 32.8 g/dL Normal 31-[address] [facility] Comment on above: Performed By: #### C DP, BMP, TROPI ####[address] [place] [address] MCV 79.9 fL Low 80-[address] [facility] Comment on above: Performed By: #### C DP, BMP, TROPI ####[address] [place] [address] Monocytes 0.60 10*3/uL Normal 0.0-1.[address] [facility] Comment on above: Performed By: #### C DP, BMP, TROPI ####[address] [place] [address] Monocytes/100 leukocytes 5 % Normal [facility] Comment on above: Performed By: #### C DP, BMP, TROPI ####[address] [place] [address] Neutrophil (Seg) 65 % Normal [facility] Comment on above: Performed By: #### C DP, BMP, TROPI ####[address] [place] [address] Platelet mean volume (PMV) 9.6 fL Normal 6.0-12.[address] [facility] Comment on above: Performed By: #### C DP, BMP, TROPI ####[address] [place] [address] Platelets 278 10*3/uL Normal 140-[address] [facility] Comment on above: Performed By: #### C DP, BMP, TROPI ####[address] [place] [address] WBC (Leukocytes) 10.8 10*3/uL Normal 4.5-13.[address] [facility] Comment on above: Performed By: #### C DP, BMP, TROPI ####[address] [place] [address] Auto Diff Performed NOT REPORTED Normal [facility] Comment on above: Performed By: #### C DP, BMP, TROPI ####[address] [place] [address] Erythrocyte morphology NOT REPORTED Normal [facility] Comment on above: Performed By: #### C DP, BMP, TROPI ####[address] [place] [address] Platelets NOT REPORTED Normal [facility] Comment on above: Performed By: #### C DP, BMP, TROPI ####[address] [place] [address] WBC Morphology NOT REPORTED Normal [facility] Comment on above: Performed By: #### C DP, BMP, TROPI ####[address] [place] [address] ED Noteon 02-19-2017 HIM IP Note OR Stepdown Nurse Normal [facility] ED Provider Noteon 7 HIM IP Note OR Stepdown Nurse Normal [facility] Troponinon 02-19-2017 Troponin T.cardiac mass conc ug/L Normal <0.[address] [facility] Comment on above: Result Comment: Trop onin T results cannot be compared to Troponin-I results. Performed By: #### C DP, BMP, TROPI ####[address] [place] [address] Troponin I.cardiac mass conc Normal [facility] Comment on above: Result Comment: Refe rence Range: <0.03 Within reference range. 0.03-0.09 Possible myocardial damage.Repeat at appropriate intervals to rule out chronic elevation. >= 0.10 Indicative of myocardial damage.Performed at [address] [place] [address] [phone] Performed By: #### C DP, BMP, TROPI ####[address] [place] [address] Vital Signs Date Time Vital Sign Value Performing Clinician Facility 02-27-2023 14:39-0400 Blood Pressure Location Gary MORRIS [facility] 02-27-2023 14:39-0400 Diastolic blood pressure 66 mm[Hg] Gary MORRIS [facility] 02-27-2023 14:39-0400 Heart rate 70 /min Gary MORRIS [facility] 02-27-2023 14:39-0400 Respiratory rate 16 /min Gary MORRIS [facility] 02-27-2023 14:39-0400 Systolic blood pressure 106 mm[Hg] Gary DANGELOL [facility] [place] 01-08-2022 08:09-0400 Body temperature 98.01 [degF] Queta Rice DO Work Phone: [facility] 01-08-2022 08:09-0400 Body weight 75.75 kg Queta Rice DO Work Phone: [facility] 01-08-2022 08:09-0400 Diastolic blood pressure 71 mm[Hg] Queta Rice DO Work Phone: [facility] 01-08-2022 08:09-0400 Heart rate 98 /min Queta Rice DO Work Phone: [facility] 01-08-2022 08:09-0400 Systolic blood pressure 112 mm[Hg] Queta Rice DO Work Phone: [facility] 12-10-2021 14:45-0400 Body height 166.37 cm Bret Vitalyeverardo Other [facility] Other 12-10-2021 14:45-0400 Body mass index (BMI) [Ratio] 26.55 kg/m2 Bret Long Other [facility] Other 12-10-2021 14:45-0400 Body weight 73.48 kg Bret Long Other [facility] Other 12-10-2021 14:45-0400 Diastolic blood pressure 72 mm[Hg] Bret Long Other [facility] Other 12-10-2021 14:45-0400 Systolic blood pressure 103 mm[Hg] Bret Long Other [facility] Other 11-27-2021 14:01-0400 Body temperature 98.4 [degF] Queta Rice DO Work Phone: [facility] 11-27-2021 14:01-0400 Body weight 74.84 kg Queta Rice DO Work Phone: [facility] 11-27-2021 14:01-0400 Diastolic blood pressure 64 mm[Hg] Queta Rice DO Work Phone: [facility] 11-27-2021 14:01-0400 Heart rate 98 /min Queta Rice DO Work Phone: [facility] 11-27-2021 14:01-0400 Systolic blood pressure 121 mm[Hg] Queta Rice DO Work Phone: [facility] 12-05-2020 19:26-0400 Heart rate 106 /min James Breece PA-C Work Phone: [facility] 12-05-2020 19:25-0400 Body temperature 98.29 [degF] James Breece PA-C Work Phone: [facility] 12-05-2020 19:25-0400 Body weight 97.98 kg James Breece PA-C Work Phone: [facility] 12-05-2020 19:25-0400 Diastolic blood pressure 86 mm[Hg] James Breece PA-C Work Phone: [facility] 12-05-2020 19:25-0400 Respiratory rate 16 /min James Breece PA-C Work Phone: [facility] 12-05-2020 19:25-0400 SaO2% (BldA) [Mass fraction] 97 % James Breece PA-C Work Phone: [facility] 12-05-2020 19:25-0400 Systolic blood pressure 126 mm[Hg] James Breece PA-C Work Phone: [facility] Encounters Encounter Date Encounter Type Care Provider Facility Start: 12-17-2023 End: 12-17-2023 ambulatory LOURDES CHRISTIE Not Available Start: 02-27-2023 End: 02-28-2023 ambulatory Gary MORRIS Facility:[facility] Start: 02-27-2023 End: 02-27-2023 Patient encounter procedure Gary MORRIS [facility] Start: 02-23-2023 ambulatory Alexandr Bourgeois Facility:[facility] Start: 02-05-2023 ambulatory Gary MORRIS Facility:[facility] Start: 11-07-2022 End: 11-08-[address] HOMAR LEWIS . Facility: Start: 08-14-2022 End: 08-14-[address] HOMAR LEWIS . Facility:[facility] Start: 08-11-2022 End: 08-11-[address] HOMAR LEWIS . Facility:[facility] Start: 07-16-[address] HOMAR LEWIS . Facili ty:[facility] Start: 05-26-2022 End: 05-26-[address] HOMAR LEWIS . Facility:[facility] Start: 05-22-2022 End: 05-22-2022 ambulatory ITA REYES Facility: Start: 04-24-2022 End: 04-25-[address] HOMAR LEWIS . Facility: Start: 02-18-2022 ambulatory QUETA Huffman~[id number] DEVON OSORIO [facility] Start: 02-12-2022 ambulatory QUETA Huffman~[id number] DEVON OSORIO [facility] Start: 02-12-2022 End: 02-12-2022 Telemedicine consultation with patient Queta Osorio DO Work Phone: [facility] Comment on above: Anxiety (Primary Dx) Start: 01-19-2022 Refill Luis Dipalma D O Work Phone: [facility] Start: 01-19-2022 Refill Luis Dipalma D O Work Phone: [facility] Start: 01-08-2022 End: 01-08-2022 ambulatory QUETA Huffman~[id number] DEVON OSORIO [facility] Start: 01-08-2022 End: 01-08-2022 Office outpatient visit 25 minutes Queta Huffman Rice DO Work Phone: [facility] Comment on above: Anxiety (Primary Dx) ; Hypotension, unspecified hypotension type Start: 01-08-2022 End: 01-08-2022 Patient encounter procedure Queta Huffman Rice DO Work Phone: [facility] Start: 12-11-2021 End: 12-11-2021 ambulatory QUETA Huffman~[id number] DEVON OSORIO [facility] Start: 12-10-2021 End: 12-10-2021 ambulatory Bret Long Other [facility] Other Start: 12-10-2021 Office outpatient ne w 45 minutes Bret Long [facility] Gastro[facility] Start: 11-27-2021 End: 11-27-2021 ambulatory QUETA Huffman~[id number] DEVON OSORIO [facility] Start: 11-27-2021 End: 11-27-2021 Office outpatient new 30 minutes Queta Huffman Rice DO Work Phone: [facility] Comment on above: Anxiety (Primary Dx) Start: 11-27-2021 End: 11-27-2021 Patient encounter procedure Queta Huffman Rice DO Work Phone: [facility] Start: 11-25-2021 Telephone encounter Dana Kinsey [facility] Start: 12-05-2020 End: 12-05-2020 ambulatory PHYSICIAN NO [facility] Start: 12-05-2020 End: 12-05-2020 Office outpatient new 20 minutes James Churchill PA-C Work Phone: [facility] [place] Comment on above: Vaginal sore (Primar y Dx) Start: 02-19-2017 End: 02-19-2017 Emergency department [facility] Procedures Date Procedure Procedure Detail Performing Clinician Start: 11-27-2021 Adult depression scr eening assessment Queta Osorio DO Work Phone: Start: 12-05-2020 Urine test visual color cmprsn lina Haider Kerline HOYT Work Phone: Start: 02-19-2017 Ct angiography chest w/contrast/noncontrast [facility] SUTHERLAND Start: 02-19-2017 SALINE LOCK IV KIM SIBLEY Start: 02-19-2017 TELEMETRY MONITORING SEBASTIAN SUTHERLAND Start: 02-19-2017 BASIC METABOLIC PANEL M ARK ENA Start: 02-19-2017 CBC WITH AUTO DIFFERENTIAL K[facility] SUTHERLAND Start: 02-19-2017 TROPONIN KIM Howell Start: 02-19-2017 EKG 12-LEAD K[facility] Howell None (qualifier value) Henrik MORRIS Plan of Treatment Date Care Activity Detail Author Start: 11-27-2022 Adolescent depressio n screening assessment Depression Screening [facility] Start: 03-06-2022 Influenza vaccination T [facility] Start: 02-07-2022 End: 02-07-2022 Patient encounter procedure 02/07/2022 Office Visit Family Queta Benton DO [address] [place] [phone] [facility] Start: 12-19-2021 End: 12-19-2021 Patient encounter procedure 12/19/2021 Office Visit Family Queta Benton DO [address] [place] [phone] [facility] Start: 12-07-2021 COVID-19 Vaccine (3 - Booster for Moderna series) COVID-19 Vaccine (3 - Booster for Moderna series) [facility] Start: 11-27-2021 End: 11-27-2021 Patient encounter procedure 11/27/2021 Office Visit Family Queta Benton DO [address] [place] [address] [place] [phone] [facility] Start: 11-24-2021 Adolescent depressio n screening assessment Depression Screening [facility] Start: 11-24-2021 Hepatitis C screening Hepatitis C Sc reening [facility] Start: 11-24-2021 HIV screening HIV Screening [facility] Start: 11-24-2021 Social Influencers o f Health Screening Social Influencers of Health Screening [facility] Start: 03-06-2021 Influenza vaccination Sequenti al Influenza Vaccine (Season Ended) [facility] Start: 2017 Screening for malign ant neoplasm of cervix Cervical Cancer Screening: Pap Smear [facility] Start: 2015 DTaP,Tdap,and Td Vac cines (1 - Tdap) DTaP,Tdap,and Td Vaccines (1 - Tdap) [facility] Start: 2014 Hepatitis C screening Hepatitis C Sc reening [facility] Start: 2011 HIV screening HIV Screening [facility] Start: 2008 COVID-19 Vaccine (1) COVID-19 Vaccin e (1) [facility] Start: 2008 Depression screening using PHQ-9 (Patient Health Questionnaire 9) score Depression Screening (PHQ9) [facility] Start: 2007 HPV Vaccines (1 - 2- dose series) HPV Vaccines (1 - 2-dose series) [facility] Start: 2007 Vaccination for april n papillomavirus HPV Vaccines (1 - 2-dose series) [facility] Start: 2001 COVID-19 Vaccine (1) COVID-19 Vaccin e (1) [facility] Start: 1999 History and physical examination, annual for health maintenance Wellness Visit [facility] Start: 1996 Screening for Chlamy marilee trachomatis Chlamydia Screening [facility] Start: 1996 Screening for malign ant neoplasm of cervix Pap Smear [facility] Start: 1996 Tetanus vaccination Tetanus: Every 1 0yrs [facility] Chlamydia trachomati s rRNA assay Chlamydia/GC/Trichomonas Amplified RNA Microbiology Routine Vaginal sore Ordered: 12/05/2020 [facility] Comment on above: Ordered: 12/05/2020 HSV by PCR Superficial Site HSV by PCR Superficial Site Lab Routine Vaginal sore Ordered: 12/05/2020 [facility] Comment on above: Ordered: 12/05/2020 Neisseria gonorrhoea e nucleic acid detection Chlamydia/Gonorrhoeae Amplified RNA Microbiology Routine Vaginal sore Ordered: 12/05/2020 [facility] Comment on above: Ordered: 12/05/2020 Trichomonas vaginali s Amplified RNA Trichomonas vaginalis Amplified RNA Microbiology Routine Vaginal sore Ordered: 12/05/2020 [facility] Comment on above: Ordered: 12/05/2020 Immunizations Immunization Date Immunization Notes Care Provider Fa cility 07-09-2021 SARS-CoV-2 (COVID-19 ) mRNA-1273 vaccine Gary ALEXANDRA [facility] [place] 06-08-2021 SARS-CoV-2 (COVID-19 ) mRNA-1273 vaccine Gary ALEXANDRA [facility] [place] Payers Date Payer Category Payer Medicaid [employer] [place] [id number] 2021-Present [address] [address] [place] [address] [id number] 2020 Medicaid [id number] 2016 Unknown [id number] 2013 Unknown [id number] 1996 Unknown [id number] 2.16.840.1.151769.3.579.2.903 1996 Unknown [id number] 2.16.840.1.117141.3.579.2.114 1996 Unknown [id number] 2.16.840.1.618855.3.579.2.114 1996 Unknown [id number] 2.16.840.1.194639.3.579.2.114 1996 Unknown [id number] 2.16.840.1.092286.3.579.2.114 1996 Unknown [id number] 2.16.840.1.044295.3.579.2.1143 1996 Unknown [id number] 2.16.840.1.484099.3.579.2.593 1996 Unknown [id number] 2.16.840.1.696448.3.579.2.593 1996 Unknown [id number] 2.16.840.1.465668.3.579.2.593 1996 Unknown [id number] 2.16.840.1.608581.3.579.2.593 1996 Unknown [id number] 2.16.840.1.309855.3.579.2.593 1996 Unknown [id number] 2.16.840.1.429350.3.579.2.593 1996 Unknown [id number] 2.16.840.1.271427.3.579.2.593 1996 Unknown [id number] 2.16.840.1.139875.3.579.2.727 1996 Unknown [id number] 2.16.840.1.342220.3.579.2.1259 1960 Unknown [id number] 2.16.840.1.480486.3.579.2.727 1959 Medicaid [id number] 1959 Self-pay 1959 Unknown [id number] 1959 Unknown [id number] 1959 Unknown [id number] Unknown [id number] 2.16.840.1.274381.3.579.2.531 Social History Date Type Detail Facility Start: 12-05-2020 End: 02-27-2023 Tobacco smoking status RIIS Never smoker [facility] Start: 12-05-2020 End: 11-27-2021 Tobacco use and exposure Never used [facility] Start: 12-05-2020 Alcohol intake Current drinke r of alcohol (finding) [facility] Start: 12-05-2020 End: 11-27-2021 History SDOH Alcohol Frequency 1 [facility] Start: 12-05-2020 Alcohol Comment occ [facility] Start: 1996 Sex Assigned At Not on file [facility] Start: 11-17-2021 End: 02-12-2022 Exposure to SARS-CoV-2 (event) Not sure [facility] Tobacco smoking stat [facility] Tobacco smoking consumption unknown [facility] Start: 11-27-2021 End: 02-12-2022 Alcohol intake Lifetime non-drinker (finding) [facility] Start: 1995 Sex Assigned At Female T [facility] Sex Assigned At [facility] Tobacco smoking status Never [facility] [place] Functional Status Date Assessment Result Facility 02-27-2023 Functional Status N/A [facility] fannie [facility] Clinical Notes 12-05-2020 to 02-27-2023 Queta Osorio DO - 02/12/2022 7:30 AM EDTDana Rosario, SEBASTIAN - 01/08/2022 8:00 AM Chema Osorio DO [...] with excisional biopsy under local anesthesia at [facility]; call with problems/questions. Follow-up No qualifying data [...] Recorded SARS-CoV-2 (COVID-19) mRNA-1273 vaccine 06/08/2021 Recorded [facility] Comment on above: Result Comment: Elec tronically Signed By: ALEXANDRA RANGEL, Gary Jackson\Date and Time Signed: 02/27/23 16:20 EDT 02-12-2022 History of Present illness Narrative Attempted to complete Mchart and patient was not online despite speaking to MA prior to appointment. Attempted to call on phone 3 separate times before noon with no answer. May reschedule at later date. documented in this encounter [facility] 01-08-2022 History of Present illness Narrative bp's [...] due to buspirone. documented in this encounter [facility] 12-10-2021 Evaluation note Encounter Date Diagnosis Assessment Notes Dec, Irritable bowel syndrome with diarrhea (ICD-10 - K58.0) Continue medications without change Dec, Epigastric pain (ICD-10 - R10.13) Dec, Chronic nausea (ICD-10 - R11.0) Dec, Family history of carcinoma in situ of anal canal (ICD-10 - Z84.89) Dec, Other Continue Zofran prn Pt to call if symptoms worsen [facility] Other 05-25-2022 History of Present illness Narrative* Queta Osoroi DO - 11/27/2021 2:00 PM EDT Subjective Patient ID: Leslie Ford is a 26 y.o. female. Chief Complaint Patient presents with [facility] Care 26 y.o. female presents to [facility]. History of anxiety and depression. Has been [...] it ( July 2017) [id number] History of Present illness Narrative* Dana Rosario [...] like me to do? documented in this [facility]06-02-2021 History of Present illness Narrative* James Churchill PA-C - 12/05/2020 8:22 PM EDT Images from the original note were not included. Patient Name: [facility] Location: Leslie Briceño [facility] [address] Date Of : Date Of Visit: 1995 12/05/2020 MRN# Provider: [id number] James Churchill PA-C Chief Complaint Patient presents [...] urine from irritatingthe sores. ? Take an womf-yvr-sxcgaru pain medicine, such as acetaminophen (Tylenol), ibuprofen [...] Log into your personal health record on https://[employer]Vidimax and enter E579 in the Education box to learn more about Genital Herpes: Care Instructions. Current as of: August 31, 2019 Content Version: 12.8 [employer]. Care instructions adapted under license by your healthcare professional. If you have questions about a medical condition or this instruction, always ask your healthcare professional. [employer] disclaims any warranty or liability for your use of this information. documented in this [id number] Instructions* Patient Instructions* James Churchill PA-C - [...] urine from irritatingthe sores. ? Take an jnjj-xrb-gvzqilv pain medicine, such as acetaminophen (Tylenol), ibuprofen [...] Log into your personal health record on https://[employer]im[employer] and enter E579 in the Education box to learn more about Genital Herpes: Care Instructions. Current as of: August 31, 2019 Content Version: 12.8 [employer]. Care instructions adapted under license by your healthcare professional. If you have questions about a medical condition or this instruction, always ask your healthcare professional. [employer] disclaims any warranty or liability for your use of this information. documented in this encounterCaliforniaHealthEvaluation + Plan note No data available for this section [facility] [place] Evaluation note* Diagnosis Vaginal sore- Primary documented in this encounter [facility] note* Diagnosis Anxiety- Primary Anxiety state, unspecified [facility] Diagnosis Anxiety- Primary Anxiety state, unspecified Hypotension, unspecified hypotension type [facility]* Diagnosis Anxiety- Primary Anxiety state, unspecified documented in this encounter [facility] general Narrative - Reported* Type Description Date Medical History [employer] Other Hospital Discharge instructions No data available for this section [facility] [place] Progress note No data available for this section [facility] [place] Summary Purpose Family History No Family History Records FoundNo Family History Records FoundNo Family History Records FoundNo Family History Records FoundNo Family History Records FoundNo Family History Records FoundNo Family History Records FoundNo Family History Records Found Advance Directives No Advanced Directives Records FoundDocuments on File Type Date Recorded Patient Bellman Driver Expl anation Advance Directives and Living Will Documents on File Type Date Recorded Patient Bellman Driver Expl 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 Additional Source Comments INFORMATION SOURCE (unrecogn ized section and content) DATE CREATED AUTHOR 12/30/2017 [facility] DATE CREATED AUTHOR AUTHOR'S ORGANIZ ATION 12/06/2020 [facility] DATE CREATED AUTHOR AUTHOR'S ORGANIZ ATION 02/16/2022 [facility] DATE CREATED AUTHOR AUTHOR'S ORGANIZ ATION 02/27/2022 [facility] DATE CREATED AUTHOR AUTHOR'S ORGANIZ ATION 11/14/2022 [facility] DATE CREATED AUTHOR AUTHOR'S ORGANIZ ATION 03/02/2023 [facility] DATE CREATED AUTHOR AUTHOR'S ORGANIZ ATION 07/05/2023 [facility] DATE CREATED AUTHOR AUTHOR'S ORGANIZ ATION 12/18/2023 [facility] EPIC Reason for Visit (unrecogniz ed section and [...] Care Teams (unrecognized sec tion and content) Tube Bender Hand Relationship Specialty Start Date End Date Queta Osorio, [address] [place] [phone] PCP - General Family Medicine 11/27/21 Tube Bender Hand Relationship Specialty Start Date End Date Queta Osorio, [address] [place] [phone] PCP - General Family Medicine 11/27/21 Tube Bender Hand Relationship Specialty Start Date End Date Queta Osorio DO [address] [place] [phone] PCP - General Family Medicine 11/27/21 FOR [...] BE BASED ON THE PRIMARY CLINICAL RECORDS. [facility] [employer] [facility]. provides no warranty or guarantee of the accuracy or completeness of information in this document.
== END 2024-01-01 08:59 | disposition home or self-care (01) ==
LOC: NOMS 08:58
PROVIDERS: PCP Family Medicine; Visit Provider Obstetrics & Gynecology
DX: Z34.91 Encounter for supervision of normal pregnancy, unspecified, first trimester (principal); Z3A.08 8 weeks gestation of pregnancy; N92.6 Irregular menstruation, unspecified
CPT/HCPCS: 76817

== ENCOUNTER 2024-01-12 08:49 | Outpatient (OUT) | payer OTHER, SELFPAY ==
[2024-01-12 09:18] LABS: Basophils Absolute Auto 0.1 10^3/uL (0.0-0.1); Basophils Percent Auto 0.9 % (0.2-2.0); Eosinophils Absolute Auto 0.2 10^3/uL (0.0-0.7); Eosinophils Percent Auto 2.1 % (0.9-7.0); Hematocrit 38.2 % (36.0-48.0); Immature Granulocytes Abs Auto 0.02 10^3/uL (0.00-0.03); Immature Granulocytes Pct Auto 0.3 % (0.0-0.5); Lymphocytes Absolute Auto 1.7 10^3/uL (1.2-3.8); Lymphocytes Percent Auto 22.3 % (20.5-60.0); Mean Corpuscular Hemoglobin 29.3 pg (26.7-34.0); Mean Corpuscular Volume 86.2 fL (81.0-99.0); Mean Platelet Volume 10.1 fL (9.5-13.5); Monocytes Absolute Auto 0.5 10^3/uL (0.3-0.8); Neutrophils Absolute Auto 5.1 10^3/uL (1.4-6.5); Neutrophils Percent Auto 67.4 % (43.0-75.0); Platelet Count 254 10^3/uL (150-450); Red Blood Count 4.43 10^6/uL (4.20-5.40); Red Cell Distribution Width 13.5 % (11.0-15.0); White Blood Count 7.5 10^3/uL (4.0-11.0)
[2024-01-12 10:02] LABS: Estimated Average Glucose 91 mg/dL; Glycohemoglobin A1C 4.8 % (4.5-6.2)
[2024-01-13 06:09] LABS: HBsAg Screen Negative (Negative); HCV Ab Non Reactive (Non Reactive); HIV Ab/p24 Ag Screen Non Reactive (Non Reactive)
[2024-01-13 13:13] LABS: Rapid Plasma Reagin, Quant Non Reactive titer (NonRea<1:1)
[2024-01-13 15:08] LABS: Rubella Antibodies, IgG <0.90 index (Immune >0.99)
== END 2024-01-12 08:50 | disposition home or self-care (01) ==
LOC: LAB 08:51
PROVIDERS: PCP Family Medicine; Visit Provider Obstetrics & Gynecology
DX: N92.6 Irregular menstruation, unspecified (principal); Z36.0 Encounter for antenatal screening for chromosomal anomalies
CPT/HCPCS: 36415; 83036; 85025; 86592; 86762; 86803; 86850; 86900; 86901; 87086; 87340; 87389

== ENCOUNTER 2024-02-02 19:08 | Emergency (ER) | payer OTHER, SELFPAY ==
[2024-02-02 19:14] VITALS: BP 119/81; PULSE 72; TEMP 36.6; O2SAT 99; BMI 26.6
--- OUTSIDE RECORDS SUMMARY | 2024-02-02 19:18 | XMS_ITS | CCD ---
Author Organization [facility] Care Team Providers Care Table Keeper Name Role Phone KIM SUTHERLAND Unavailable Unavailable WILLY CONKLIN Unavailable Unavailable HOMAR LEWIS Unavailable Unavailable HOMAR LEWIS Unavailable Unavailable No, Physician Primary Care Provider Unavailabl e FINN, PHYSICIAN Primary Care Unavailable JAMES ALCAZAR Attending Unavailable Unavailable Primary Care Provider Unavailabl e Queta Osorio DO Primary Care Provider Bret Long Unavailable RICE RICE, QUETA QUETA M~[id number] Attending Unavailable RICE RICE, QUETA QUETA M~[id number] Primary Ca re Unavailable RICE RICE, QUETA QUETA M~[id number] Attending Unavailable RICE RICE, QUETA QUETA M~[id number] Primary Ca re Unavailable RICE RICE, QUETA QUETA M~[id number] Attending Unavailable RICE RICE, QUETA QUETA M~[id number] Primary Ca re Unavailable RICE RICE, QUETA QUETA M~[id number] Attending Unavailable RICE RICE, QUETA QUETA M~[id number] Primary Ca re Unavailable RICE RICE, QUETA QUETA M~[id number] Referring Unavailable RICE RICE, QUETA QUETA M~[id number] Primary Ca re Unavailable ITA REYES Admitting [...] Primary Care Unavailable LOURDES CHRISTIE Attending Unavailable KATELYN DUVALL Attending Unavailable Allergies Allergy Classification Reported Allergen(s) Allergy Type Date of Onset Reaction(s) Facility (1 source) No Known Medication Allergies; Translations: [No Known Medication Allergies] Propensity to adverse reactions (disorder) [facility] Repository Medications Current Medications Medication Drug [...] mg C ap Refills(s) 0 Start Date: 8/25/23 Status: Ordered Start: 08-10-2021 take 1 tablet [...] Translations: [CONTACT W/AND (SUSP) EXPOS COVID-19] Onset: 02-09-2023 Unclassified (1 source) LOW BACK PAIN, UNSPECIFIED; Translations: [LOW BACK PAIN, UNSPECIFIED] Onset: 05-22-2022 Results Test Name Value Interpretation Reference Range Facility Facesheeton 03-02-2023 Facesheet [id number] CD:127 Normal [facility] Ambulatory Visit Summaryon 0 02-27-2023 Ambulatory [...] History of pre-eclampsia Insomnia Migraines Overweight Normal [facility] RAD - Ultrasound Reporton RAD - Ultrasound Report [id number] D:127 Normal [facility] Physician Referralon 023 Physician Referral [id number] D:127 Normal [facility] INSULINon 11-08-2022 Insulin 7.7 uIU/mL Normal 2.6-24.9 [facility] Comment on above: Performed By: #### V ITAD, IRON #### [facility] [address] [place] [address] Dr. Chucho Jesus CBC AUTO DIFFon 11-07-2022 BASO # 0.0 103/ul Normal 0.0-0.1 [facility] Comment on above: Performed By: #### V ITAD, IRON #### [facility] [address] [place] [address] Dr. Chucho Jesus Basophils/100 WBC (Bld) 0.6 % Normal 0.2-2.0 [facility] Comment on above: Performed By: #### V ITAD, IRON #### [facility] [address] [place] [address] Dr. Chucho Jesus EO # 0.1 103/ul Normal 0.0-0.7 [facility] Comment on above: Performed By: #### V ITAD, IRON #### [facility] [address] [place] [address] Dr. Chucho Jesus Eosinophils/100 WBC (Bld) 1.4 % Normal 0.9-7.0 [facility] Comment on above: Performed By: #### V ITAD, IRON #### [facility] [address] [place] [address] Dr. Chucho Jesus Erythrocyte distribution width (RBC) [Ratio] 13.9 % Normal 11.0-15.0 [facility] Comment on above: Performed By: #### V ITAD, IRON #### [facility] [address] [place] [address] Dr. Chucho Jesus Hematocrit (Bld) [Volume fraction] 45.6 % Normal 36.0-48.0 [facility] Comment on above: Performed By: #### V ITAD, IRON #### [facility] [address] [place] [address] Dr. Chucho Jesus Hemoglobin (Bld) [Mass/Vol] 15.1 g/dL Normal 12.0-16.0 [facility] Comment on above: Performed By: #### V ITAD, IRON #### [facility] [address] [place] [address] Dr. Chucho Jesus IG # 0.01 10e3/ul Normal 0.00-0.03 [facility] Comment on above: Performed By: #### V ITAD, IRON #### [facility] [address] [place] [address] Dr. Chucho Jesus IG % 0.1 % Normal 0.0-0.5 [facility] Comment on above: Performed By: #### V ITAD, IRON #### [facility] [address] [address] [address] Chucho Jesus LYMPH # 1.9 103/ul Normal 1.2-3.8 [facility] Comment on above: Performed By: #### V ITAD, IRON #### [facility] [address] [place] [address] Dr. Chucho Jesus Lymphocytes/100 WBC (Bld) 26.3 % Normal 20.5-60.0 [facility] Comment on above: Performed By: #### V ITAD, IRON #### [facility] [address] [place] [address] Dr. Chucho Jesus MANUAL DIFF REQ NO Normal [facility] Comment on above: Performed By: #### V ITAD, IRON #### [facility] [address] [place] [address] Dr. Chucho Jesus MCH (RBC) [Entitic mass] 27.9 pg Normal 26.7-34.0 [facility] Comment on above: Performed By: #### V ITAD, IRON #### [facility] [address] [place] [address] Dr. Chucho Jesus MCHC (RBC) [Mass/Vol] 33.1 g/dL Normal 29.9-35.2 [facility] Comment on above: Performed By: #### V ITAD, IRON #### [facility] [address] [place] [address] Dr. Chucho Jesus MCV (RBC) [Entitic vol] 84.1 fL Normal 81.0-99.0 [facility] Comment on above: Performed By: #### V ITAD, IRON #### [facility] [address] [address] [address] Chucho Jesus MONO # 0.5 103/ul Normal 0.3-0.[address] [facility] Comment on above: Performed By: #### V ITAD, IRON #### [facility] [address] [place] [address] Dr. Chucho Jesus Monocytes/100 WBC (Bld) 7.3 % Normal 1.7-12.[address] [facility] Comment on above: Performed By: #### V ITAD, IRON #### [facility] [address] [place] [address] Dr. Chucho Jesus NEUT # 4.6 103/ul Normal 1.4-6.[address] [facility] Comment on above: Performed By: #### V ITAD, IRON #### [facility] [address] [place] [address] Dr. Chucho Jesus Neutrophils/100 WBC (Bld) 64.3 % Normal 43.0-75.[address] [facility] Comment on above: Performed By: #### V ITAD, IRON #### [facility] [address] [place] [address] Dr. Chucho Jesus Platelet mean volume (Bld) [Entitic vol] 10.9 fL Normal 9.5-13.[address] [facility] Comment on above: Performed By: #### V ITAD, IRON #### [facility] [address] [place] [address] Dr. Chucho Jesus PLT 226 103/ul Normal 150-[address] [facility] Comment on above: Performed By: #### V ITAD, IRON #### [facility] [address] [place] [address] Dr. Chucho Jesus RBC 5.42 106/ul Critically high 4.20-5.40 [facility] Comment on above: Performed By: #### V ITAD, IRON #### [facility] [address] [place] [address] Dr. Chucho Jesus WBC 7.2 103/ul Normal 4.0-11.[address] [facility] Comment on above: Performed By: #### V ITAD, IRON #### [facility] [address] [address] [address] Chucho Jesus FREE THYROXINE INDEX T7on FTI 3.29 Normal 1.30-4.50 [facility] Comment on above: Performed By: #### V ITAD, IRON #### [facility] [address] [address] [address] Chucho Jesus T3U 35.0 % Normal 30.0-39.0 [facility] Comment on above: Performed By: #### V ITAD, IRON #### [facility] [address] [address] [address] Chucho Jesus T4 [Mass/Vol] 9.40 ug/dL Normal 4.80-13.90 [facility] Comment on above: Performed By: #### V ITAD, IRON #### [facility] [address] [address] [address] Chucho Jesus GLYCOHEMOGLOBIN A1Con 2022 ADA RECOMMENDATION SEE BELOW Normal [facility] Comment on above: Result Comment: ADA RECOMMENDED LIMIT 4.0 - 6.0 ADA THERAPEUTIC TARGET < 7.0 ACTION SUGGESTED > 7.0 Performed By: #### A 1C #### [facility] [address] [address] [address] Chucho Jesus Glucose [Mass/Vol] 94 mg/dL Normal [facility] Comment on above: Performed By: #### A 1C #### [facility] [address] [address] [address] Chucho Jesus HbA1c (Bld) [Mass fraction] 4.9 % Normal 4.5-6.2 [facility] Comment on above: Performed By: #### A 1C #### [facility] [address] [address] [address] Chucho Jesus IRONon 11-07-2022 Iron [Mass/Vol] 81.0 ug/dL Normal 50.0-170.[address] [facility] Comment on above: Performed By: #### V ITAD, IRON #### [facility] [address] [address] [address] Chucho Jesus LIPID PROFILEon 11-07-2022 CHOL-HDL RATIO NORM SEE BELOW Normal [facility] Comment on above: Result Comment: 3.3 - 4.4 LOW RISK 4.4 - 7.1 AVERAGE RISK 7.1 - 11.0 MODERATE RISK >11.0 HIGH RISK Performed By: #### V ITAD, IRON #### [facility] [address] [address] [address] Chucho Jesus Cholesterol [Mass/Vol] 126 mg/dL Normal <=200 [facility] Comment on above: Performed By: #### V ITAD, IRON #### [facility] [address] [address] [address] Chucho Jesus Cholesterol in HDL [Mass/Vol] 38 mg/dL Critically low 40-60 [facility] Comment on above: Performed By: #### V ITAD, IRON #### [facility] [address] [address] [address] Chucho Jesus Cholesterol in LDL [Mass/Vol] 79.4 mg/dL Normal [facility] Comment on above: Performed By: #### V ITAD, IRON #### [facility] [address] [address] [address] Chucho Jesus Cholesterol.total/C holesterol in HDL [Mass ratio] 3.3 {ratio} Normal [facility] Comment on above: Performed By: #### V ITAD, IRON #### [facility] [address] [address] [address] Chucho Jesus HDL NORMAL > or = 60 mg/dl - LO W CARDIOVASCULAR RISK <40 mg/dl - HIGH CARDIOVASCULAR RISK Normal [facility] Comment on above: Performed By: #### V ITAD, IRON #### [facility] [address] [address] [address] Chucho Jesus LDL CALC NORMAL SEE BELOW Normal [facility] Comment on above: Result Comment: <100 mg/dl OPTIMAL 100 - 129 mg/dl NEAR OR ABOVE OPTIMAL 130 - 159 mg/dl BORDERLINE HIGH 160 - 189 mg/dl HIGH >190 mg/dl VERY HIGH Performed By: #### V ITAD, IRON #### [facility] [address] [address] [address] Chucho Jesus Triglyceride [Mass/Vol] 43 mg/dL Normal <=150 [facility] Comment on above: Performed By: #### V ITAD, IRON #### [facility] [address] [place] [address] Dr. Chucho Jesus VLDL CALC 8.6 mg/dL Normal [facility] Comment on above: Performed By: #### V ITAD, IRON #### [facility] [address] [place] [address] Dr. Chucho Jesus PROF 14(COMP METB)on 023 Albumin [Mass/Vol] 4.2 g/dL Normal 3.4-5.0 [facility] Comment on above: Performed By: #### V ITSONIYA, IRON #### [facility] [address] [place] [address] Dr. Chucho Jesus Albumin/Globulin [Mass ratio] 1.1 {ratio} Normal [facility] Comment on above: Performed By: #### V ITAD, IRON #### [facility] [address] [place] [address] Dr. Chucho Jesus ALP [Catalytic activity/Vol] 93 U/L Normal 46-116 [facility] Comment on above: Performed By: #### V ITAD, IRON #### [facility] [address] [place] [address] Dr. Chucho Jesus ALT [Catalytic activity/Vol] 16 U/L Normal 14-59 [facility] Comment on above: Performed By: #### V ITAD, IRON #### [facility] [address] [place] [address] Dr. Chucho Jesus Anion gap [Moles/Vol] 14.3 mmol/L Normal [facility] Comment on above: Performed By: #### V ITAD, IRON #### [facility] [address] [place] [address] Dr. Chucho Jesus AST [Catalytic activity/Vol] 16 U/L Normal 15-37 [facility] Comment on above: Performed By: #### V ITAD, IRON #### [facility] [address] [place] [address] Dr. Chucho Jesus Bilirubin [Mass/Vol] 1.0 mg/dL Normal 0.2-1.0 [facility] Comment on above: Performed By: #### V ITAD, IRON #### [facility] [address] [place] [address] Dr. Chucho Jesus Calcium [Mass/Vol] 9.4 mg/dL Normal 8.5-10.1 [facility] Comment on above: Performed By: #### V ITAD, IRON #### [facility] [address] [place] [address] Dr. Chucho Jesus Chloride [Moles/Vol] 103 mmol/L Normal 98-107 [facility] Comment on above: Performed By: #### V ITAD, IRON #### [facility] [address] [place] [address] Dr. Chucho Jesus CO2 [Moles/Vol] 24.9 mmol/L Normal 21.0-32.0 [facility] Comment on above: Performed By: #### V ITAD, IRON #### [facility] [address] [place] [address] Dr. Chucho Jesus Creatinine [Mass/Vol] 0.68 mg/dL Normal 0.55-1.02 [facility] Comment on above: Performed By: #### V ITAD, IRON #### [facility] [address] [place] [address] Dr. Chucho Jesus EGFR-AF BURUNDIAN >60 Normal >=60 [facility] Comment on above: Performed By: #### V ITAD, IRON #### [facility] [address] [place] [address] Dr. Chucho Jesus EGFR-NON AF BURUNDIAN >60 Normal >=60 [facility] Comment on above: Performed By: #### V ITAD, IRON #### [facility] [address] [place] [address] Dr. Chucho Jesus Globulin (S) [Mass/Vol] 3.9 g/dL Normal [facility] Comment on above: Performed By: #### V ITAD, IRON #### [facility] [address] [place] [address] Dr. Chucho Jesus Glucose [Mass/Vol] 89 mg/dL Normal 74-106 [facility] Comment on above: Performed By: #### V ITSONIYA, IRON #### [facility] [address] [address] [address] Chucho Jesus Potassium [Moles/Vol] 4.2 mmol/L Normal 3.5-5.1 [facility] Comment on above: Performed By: #### V ITAD, IRON #### [facility] [address] [place] [address] Dr. Chucho Jesus Protein [Mass/Vol] 8.1 g/dL Normal 6.4-8.2 [facility] Comment on above: Performed By: #### V AMAURY, IRON #### [facility] [address] [place] [address] Dr. Chucho Jesus Sodium [Moles/Vol] 138 mmol/L Normal 136-145 [facility] Comment on above: Performed By: #### V AMAURY, IRON #### [facility] [address] [place] [address] Dr. Chucho Jesus Urea nitrogen [Mass/Vol] 9.0 mg/dL Normal 7.0-18.0 [facility] Comment on above: Performed By: #### V AMAURY, IRON #### [facility] [address] [place] [address] Dr. Chucho Jesus Urea nitrogen/Creatinine [Mass ratio] 13.2 mg/mg Normal [facility] Comment on above: Performed By: #### V AMAURY, IRON #### [facility] [address] [place] [address] Dr. Chucho Jesus TSHon 11-07-2022 TSH 1.668 uIU/mL Normal 0.358-3.740 [facility] Comment on above: Performed By: #### V ITSONIYA, IRON #### [facility] [address] [place] [address] Dr. Chucho Jesus Covid-19 PCR (CVDTB)on SARS-CoV-2 (COVID-19) RNA DMITRY+probe Ql (Unsp spec) Not detected Normal NOT DETECTED [facility] Comment on above: Result Comment: When diagnostic [...] for this test is supported by the [place] of Health and Human Service's declaration that [...] Performed By: #### V ITAD, IRON #### [facility] [address] [place] [address] Dr. Chucho Jesus Covid-19 PCR (CVDTB)on SARS-CoV-2 (COVID-19) RNA DMITRY+probe Ql (Unsp spec) Not detected Normal NOT DETECTED [facility] Comment on above: Result Comment: When diagnostic [...] for this test is supported by the [employer] [place] of Health and Human Service's declaration that [...] used). Performed By: #### C VDTBH #### [facility] [address] [place] [address] Dr. Chucho Jesus INFLUENZA A AND B AGon 08-11 [facility] SEE BELOW Normal [facility] Comment on above: Result Comment: Nega tive for Flu A protein angiten. Infection due to Flu A cannot be ruled out. Flu A angiten in the sample may be below the detection limit of the test. Performed By: #### I NFLUAB #### [facility] [address] [place] [address] Dr. Chucho Jesus INFLUBNEG SEE BELOW Normal [facility] Comment on above: Result Comment: Nega tive for Flu B protein antigen. Infection due to Flu B cannot be ruled out. Flu B antigen in the sample may be below the detection limit of the test. Performed By: #### I NFLUAB #### [facility] [address] [place] [address] Dr. Chucho Jesus INFLUENZA A AG Negative Normal NEGATIVE SEE COMMENT [facility] Comment on above: Performed By: #### I NFLUAB #### [facility] [address] [place] [address] Dr. Chucho Jesus INFLUENZA B AG Negative Normal NEGATIVE SEE COMMENT [facility] Comment on above: Performed By: #### I NFLUAB #### [facility] [address] [place] [address] Dr. Chucho Jesus [facility]07 SARS-CoV-2 (COVID-19) RNA DMITRY+probe Ql (Unsp spec) Not detected Normal NOT DETECTED [facility] Comment on above: Result Comment: When diagnostic [...] for this test is supported by the [place] of Health and Human Service's declaration that [...] Performed By: #### V ITAD, IRON #### [facility] [address] [place] [address] Dr. Chucho Jesus INFLUENZA A AND B AGon 05-26 [facility] SEE BELOW Normal [facility] Comment on above: Result Comment: Nega tive for Flu A protein angiten. Infection due to Flu A cannot be ruled out. Flu A angiten in the sample may be below the detection limit of the test. Performed By: #### V ITAD, IRON #### [facility] [address] [place] [address] Dr. Chucho Jesus INFLUBNEGH SEE BELOW Normal [facility] Comment on above: Result Comment: Nega tive for Flu B protein antigen. Infection due to Flu B cannot be ruled out. Flu B antigen in the sample may be below the detection limit of the test. Performed By: #### V ITAD, IRON #### [facility] [address] [place] [address] Dr. Chucho Jesus INFLUENZA A AG Negative Normal NEGATIVE SEE COMMENT [facility] Comment on above: Performed By: #### V ITAD, IRON #### [facility] [address] [place] [address] Dr. Chucho Jesus INFLUENZA B AG Negative Normal NEGATIVE SEE COMMENT [facility] Comment on above: Performed By: #### V ITAD, IRON #### [facility] [address] [place] [address] Dr. Chucho Jesus INTERNAL CONTROLS Within Normal Limits Normal Wi thin Normal Limits [facility] Comment on above: Performed By: #### V ITAD, IRON #### [facility] [address] [place] [address] Dr. Chucho Jesus ER URINE PROFILEon 2 Bilirubin Ql (U) Negative Normal NEGATIVE [facility] Comment on above: Performed By: #### V ITAD, IRON #### [facility] [address] [address] [address] Chucho Jesus Clarity (U) CLEAR Normal CLEAR [facility] Comment on above: Performed By: #### V ITAD, IRON #### [facility] [address] [place] [address] Dr. Chucho Jesus Color (U) YELLOW Normal YELLOW [facility] Comment on above: Performed By: #### V ITAD, IRON #### [facility] [address] [place] [address] Dr. Chucho BAHENA A micrscopic examination will be performed if indicated. Normal [facility] Comment on above: Performed By: #### V ITAD, IRON #### [facility] [address] [place] [address] Dr. Chucho Jesus Glucose Ql (U) Negative Normal NEGATIVE [facility] Comment on above: Performed By: #### V ITAD, IRON #### [facility] [address] [place] [address] Dr. Chucho Jesus Hemoglobin Ql (U) Negative Normal NEGATIVE [facility] Comment on above: Performed By: #### V ITAD, IRON #### [facility] [address] [place] [address] Dr. Chucho Jesus Ketones Ql (U) >=80 Abnormal NEGATIVE [facility] Comment on above: Performed By: #### V ITAD, IRON #### [facility] [address] [place] [address] Dr. Chucho Jesus LEUKOCYTES Negative Normal NEGATIVE [facility] Comment on above: Performed By: #### V ITAD, IRON #### [facility] [address] [place] [address] Dr. Chucho Jesus Nitrite Ql (U) Negative Normal NEGATIVE [facility] Comment on above: Performed By: #### V ITAD, IRON #### [facility] [address] [place] [address] Dr. Chucho Jesus pH (U) 6.0 [pH] Normal 5-9 [facility] Comment on above: Performed By: #### V ITAD, IRON #### [facility] [address] [address] [address] Chucho Jesus Protein (U) [Mass/Vol] 100 mg/dL Abnormal NEGATIVE/ TRACE [facility] Comment on above: Performed By: #### V ITAD, IRON #### [facility] [address] [address] [address] Chucho Jesus SPEC GRAVITY >=1.030 Abnormal 1.005-<=1.025 [facility] Comment on above: Performed By: #### V ITAD, IRON #### [facility] [address] [address] [address] Chucho Jesus UR MICRO IND INDICATED Normal [facility] Comment on above: Performed By: #### V ITAD, IRON #### [facility] [address] [address] [address] Chucho Jesus Urobilinogen Qn (U) 0.2 {[place]helsea'U}/dL Normal 0.2 - 1. [address] [facility] Comment on above: Performed By: #### V ITAD, IRON #### [facility] [address] [address] [address] Chucho Jesus URon 05-22-2022 , QUAL Negative Normal NEGATIVE [facility] Comment on above: Performed By: #### V ITAD, IRON #### [facility] [address] [address] [address] Chucho Jesus URINE MICROSCOPIC ONLYon BACTERIA NONE SEEN Normal NONE SEEN [facility] Comment on above: Performed By: #### V ITAD, IRON #### [facility] [address] [address] [address] Chucho Jesus Bacteria identified Cx Nom (U) NOT INDICATED Normal [facility] Comment on above: Performed By: #### V ITAD, IRON #### [facility] [address] [address] [address] Chucho Jesus CAST NONE SEEN Normal NONE SEEN [facility] Comment on above: Performed By: #### V ITAD, IRON #### [facility] [address] [address] [address] Chucho Jesus Crystals LM Nom (Urine sed) NONE SEEN Normal NONE SEEN [facility] Comment on above: Performed By: #### V ITAD, IRON #### [facility] [address] [place] [address] Dr. Cuhcho Jesus Epithelial cells LM Ql (Urine sed) FEW Abnormal NONE SEEN /RARE [facility] Comment on above: Performed By: #### V ITAD, IRON #### [facility] [address] [place] [address] Dr. Chucho Jesus MUCOUS MODERATE Abnormal NONE SEEN [facility] Comment on above: Performed By: #### V ITAD, IRON #### [facility] [address] [place] [address] Dr. Chucho Jesus RBC NONE SEEN Abnormal 0-2 [facility] Comment on above: Performed By: #### V ITAD, IRON #### [facility] [address] [place] [address] Dr. Chucho Jesus WBC NONE SEEN Normal NONE SEEN [facility] [facility] Comment on above: Performed By: #### V ITAD, IRON #### [facility] [address] [place] [address] Dr. Chucho Jesus XR LSPINE 2_3 VIEWSon [...] MARCO CAMPOS Date: 2022-05-22 12:[address] [facility] INSULINon 04-25-2022 Insulin 10.4 uIU/mL Normal 2.6-24.[address] [facility] Comment on above: Performed By: #### V ITAD, IRON #### [facility] [address] [address] [address] Chucho Jesus CBC AUTO DIFFon 04-24-2022 BASO # 0.0 103/ul Normal 0.0-0.1 [facility] Comment on above: Performed By: #### C BC #### [facility] [address] [address] [address] Chucho Jesus Basophils/100 WBC (Bld) 0.6 % Normal 0.2-2.0 [facility] Comment on above: Performed By: #### C BC #### [facility] [address] [address] [address] Chucho Jesus EO # 0.1 103/ul Normal 0.0-0.7 [facility] Comment on above: Performed By: #### C BC #### [facility] [address] [place] [address] Dr. Chucho Jesus Eosinophils/100 WBC (Bld) 1.8 % Normal 0.9-7.0 [facility] Comment on above: Performed By: #### C BC #### [facility] [address] [address] [address] Chucho Jesus Erythrocyte distribution width (RBC) [Ratio] 12.9 % Normal 11.0-15.0 [facility] Comment on above: Performed By: #### C BC #### [facility] [address] [place] [address] Dr. Chucho Jesus Hematocrit (Bld) [Volume fraction] 45.6 % Normal 36.0-48.0 [facility] Comment on above: Performed By: #### C BC #### [facility] [address] [address] [address] Chucho Jesus Hemoglobin (Bld) [Mass/Vol] 14.7 g/dL Normal 12.0-16.0 [facility] Comment on above: Performed By: #### C BC #### [facility] [address] [address] [address] Chucho Jesus IG # 0.02 10e3/ul Normal 0.00-0.[address] [facility] Comment on above: Performed By: #### C BC #### [facility] [address] [place] [address] Dr. Chucho Jesus IG % 0.3 % Normal 0.0-0.5 [facility] Comment on above: Performed By: #### C BC #### [facility] [address] [place] [address] Dr. Chucho Jesus LYMPH # 1.6 103/ul Normal 1.2-3.8 [facility] Comment on above: Performed By: #### C BC #### [facility] [address] [place] [address] Dr. Chucho Jesus Lymphocytes/100 WBC (Bld) 24.5 % Normal 20.5-60.0 [facility] Comment on above: Performed By: #### C BC #### [facility] [address] [place] [address] Dr. Chucho Jesus MANUAL DIFF REQ NO Normal [facility] Comment on above: Performed By: #### C BC #### [facility] [address] [place] [address] Dr. Chucho Jesus MCH (RBC) [Entitic mass] 28.4 pg Normal 26.7-34.0 [facility] Comment on above: Performed By: #### C BC #### [facility] [address] [place] [address] Dr. Chucho Jesus MCHC (RBC) [Mass/Vol] 32.2 g/dL Normal 29.9-35.2 [facility] Comment on above: Performed By: #### C BC #### [facility] [address] [place] [address] Dr. Chucho Jesus MCV (RBC) [Entitic vol] 88.2 fL Normal 81.0-99.[address] [facility] Comment on above: Performed By: #### C BC #### [facility] [address] [place] [address] Dr. Chucho Jesus MONO # 0.5 103/ul Normal 0.3-0.8 [facility] Comment on above: Performed By: #### C BC #### [facility] [address] [place] [address] Dr. Chucho Jesus Monocytes/100 WBC (Bld) 7.4 % Normal 1.7-12.0 [facility] Comment on above: Performed By: #### C BC #### [facility] [address] [place] [address] Dr. Chucho Jesus NEUT # 4.4 103/ul Normal 1.4-6.[address] [facility] Comment on above: Performed By: #### C BC #### [facility] [address] [place] [address] Dr. Chucho Jesus Neutrophils/100 WBC (Bld) 65.4 % Normal 43.0-75.[address] [facility] Comment on above: Performed By: #### C BC #### [facility] [address] [place] [address] Dr. Chucho Jesus Platelet mean volume (Bld) [Entitic vol] 9.9 fL Normal 9.5-13.5 [facility] Comment on above: Performed By: #### C BC #### [facility] [address] [place] [address] Dr. Chucho Jesus PLT 225 103/ul Normal 150-[address] [facility] Comment on above: Performed By: #### C BC #### [facility] [address] [place] [address] Dr. Chucho Jesus RBC 5.17 106/ul Normal 4.20-5.[address] [facility] Comment on above: Performed By: #### C BC #### [facility] [address] [place] [address] Dr. Chucho Jesus WBC 6.7 103/ul Normal 4.0-11.[address] [facility] Comment on above: Performed By: #### C BC #### [facility] [address] [place] [address] Dr. Chucho Jesus FREE THYROXINE INDEX T7on FTI 3.29 Normal 1.30-4.50 [facility] Comment on above: Performed By: #### T 7, TSH, LIPID, CMP #### [facility] [address] [address] [address] Chucho Jesus T3U 27.0 % Critically low 30.0-39.0 [facility] Comment on above: Performed By: #### T 7, TSH, LIPID, CMP #### [facility] [address] [address] [address] Chucho Jesus T4 [Mass/Vol] 12.20 ug/dL Normal 4.80-13.90 [facility] Comment on above: Performed By: #### T 7, TSH, LIPID, CMP #### [facility] [address] [address] [address] Chucho Jesus GLYCOHEMOGLOBIN A1Con 2021 ADA RECOMMENDATION SEE BELOW Normal [facility] Comment on above: Result Comment: ADA RECOMMENDED LIMIT 4.0 - 6.0 ADA THERAPEUTIC TARGET < 7.0 ACTION SUGGESTED > 7.0 Performed By: #### A 1C #### [facility] [address] [place] [address] Dr. Chucho Jesus Glucose [Mass/Vol] 105 mg/dL Normal [facility] Comment on above: Performed By: #### A 1C #### [facility] [address] [address] [address] Chucho Jesus HbA1c (Bld) [Mass fraction] 5.3 % Normal 4.5-6.2 [facility] Comment on above: Performed By: #### A 1C #### [facility] [address] [place] [address] Dr. Chucho Jesus IRONon 04-24-2022 Iron [Mass/Vol] 48.0 ug/dL Critically low 50.0-170.0 [facility] Comment on above: Performed By: #### V ITAD, IRON #### [facility] [address] [place] [address] Dr. Chucho Jesus LIPID PROFILEon 04-24-2022 CHOL-HDL RATIO NORM SEE BELOW Normal [facility] Comment on above: Result Comment: 3.3 - 4.4 LOW RISK 4.4 - 7.1 AVERAGE RISK 7.1 - 11.0 MODERATE RISK >11.0 HIGH RISK Performed By: #### V ITAD, IRON #### [facility] [address] [address] [address] Chucho Jesus Cholesterol [Mass/Vol] 184 mg/dL Normal <=200 [facility] Comment on above: Performed By: #### V ITAD, IRON #### [facility] [address] [address] [address] Chucho Jesus Cholesterol in HDL [Mass/Vol] 55 mg/dL Normal 40-60 [facility] Comment on above: Performed By: #### V ITAD, IRON #### [facility] [address] [address] [address] Chucho Jesus Cholesterol in LDL [Mass/Vol] 116.6 mg/dL Normal [facility] Comment on above: Performed By: #### V ITAD, IRON #### [facility] [address] [place] [address] Dr. Chucho Jesus Cholesterol.total/C holesterol in HDL [Mass ratio] 3.3 {ratio} Normal [facility] Comment on above: Performed By: #### V ITAD, IRON #### [facility] [address] [address] [address] Chucho Jesus HDL NORMAL > or = 60 mg/dl - LO W CARDIOVASCULAR RISK <40 mg/dl - HIGH CARDIOVASCULAR RISK Normal [facility] Comment on above: Performed By: #### V ITAD, IRON #### [facility] [address] [address] [address] Chucho Jesus LDL CALC NORMAL SEE BELOW Normal [facility] Comment on above: Result Comment: <100 mg/dl OPTIMAL 100 - 129 mg/dl NEAR OR ABOVE OPTIMAL 130 - 159 mg/dl BORDERLINE HIGH 160 - 189 mg/dl HIGH >190 mg/dl VERY HIGH Performed By: #### V ITAD, IRON #### [facility] [address] [address] [address] Chucho Jesus Triglyceride [Mass/Vol] 62 mg/dL Normal <=150 [facility] Comment on above: Performed By: #### V ITAD, IRON #### [facility] [address] [address] [address] Chucho Jesus VLDL CALC 12.4 mg/dL Normal [facility] Comment on above: Performed By: #### V ITAD, IRON #### [facility] [address] [address] [address] Chucho Jesus PROF 14(COMP METB)on 04-24- 022 Albumin [Mass/Vol] 3.7 g/dL Normal 3.4-5.0 [facility] Comment on above: Performed By: #### T 7, TSH, LIPID, CMP #### [facility] [address] [address] [address] Chucho Jesus Albumin/Globulin [Mass ratio] 0.9 {ratio} Normal [facility] Comment on above: Performed By: #### T 7, TSH, LIPID, CMP #### [facility] [address] [place] [address] Dr. Chucho Jesus ALP [Catalytic activity/Vol] 74 U/L Normal 46-116 [facility] Comment on above: Performed By: #### T 7, TSH, LIPID, CMP #### [facility] [address] [address] [address] Chucho Jesus ALT [Catalytic activity/Vol] 16 U/L Normal 14-59 [facility] Comment on above: Performed By: #### T 7, TSH, LIPID, CMP #### [facility] [address] [address] [address] Chucho Jesus Anion gap [Moles/Vol] 12.3 mmol/L Normal [facility] Comment on above: Performed By: #### T 7, TSH, LIPID, CMP #### [facility] [address] [address] [address] Chucho Jesus AST [Catalytic activity/Vol] 13 U/L Critically low 15-37 [facility] Comment on above: Performed By: #### T 7, TSH, LIPID, CMP #### [facility] [address] [address] [address] Chucho Jesus Bilirubin [Mass/Vol] 0.4 mg/dL Normal 0.2-1.0 [facility] Comment on above: Performed By: #### T 7, TSH, LIPID, CMP #### [facility] [address] [address] [address] Chucho Jesus Calcium [Mass/Vol] 8.9 mg/dL Normal 8.5-10.1 [facility] Comment on above: Performed By: #### T 7, TSH, LIPID, CMP #### [facility] [address] [place] [address] Dr. Chucho Jesus Chloride [Moles/Vol] 105 mmol/L Normal 98-107 [facility] Comment on above: Performed By: #### T 7, TSH, LIPID, CMP #### [facility] [address] [place] [address] Dr. Chucho Jesus CO2 [Moles/Vol] 26.6 mmol/L Normal 21.0-32.0 [facility] Comment on above: Performed By: #### T 7, TSH, LIPID, CMP #### [facility] [address] [place] [address] Dr. Chucho Jesus Creatinine [Mass/Vol] 0.68 mg/dL Normal 0.55-1.02 [facility] Comment on above: Performed By: #### T 7, TSH, LIPID, CMP #### [facility] [address] [place] [address] Dr. Chucho Jesus EGFR-AF BURUNDIAN >60 Normal >=60 [facility] Comment on above: Performed By: #### T 7, TSH, LIPID, CMP #### [facility] [address] [place] [address] Dr. Chucho Jesus EGFR-NON AF BURUNDIAN >60 Normal >=60 [facility] Comment on above: Performed By: #### T 7, TSH, LIPID, CMP #### [facility] [address] [place] [address] Dr. Chucho Jesus Globulin (S) [Mass/Vol] 4.3 g/dL Normal [facility] Comment on above: Performed By: #### T 7, TSH, LIPID, CMP #### [facility] [address] [place] [address] Dr. Chucho Jesus Glucose [Mass/Vol] 87 mg/dL Normal 74-106 [facility] Comment on above: Performed By: #### T 7, TSH, LIPID, CMP #### [facility] [address] [place] [address] Dr. Chucho Jesus Potassium [Moles/Vol] 3.9 mmol/L Normal 3.5-5.1 [facility] Comment on above: Performed By: #### T 7, TSH, LIPID, CMP #### [facility] [address] [place] [address] Dr. Chucho Jesus Protein [Mass/Vol] 8.0 g/dL Normal 6.4-8.2 [facility] Comment on above: Performed By: #### T 7, TSH, LIPID, CMP #### [facility] [address] [place] [address] Dr. Chucho Jesus Sodium [Moles/Vol] 140 mmol/L Normal 136-145 [facility] Comment on above: Performed By: #### T 7, TSH, LIPID, CMP #### [facility] [address] [place] [address] Dr. Chucho Jesus Urea nitrogen [Mass/Vol] 9.0 mg/dL Normal 7.0-18.0 [facility] Comment on above: Performed By: #### T 7, TSH, LIPID, CMP #### [facility] [address] [place] [address] Dr. Chucho Jesus Urea nitrogen/Creatinine [Mass ratio] 13.2 mg/mg Normal [facility] Comment on above: Performed By: #### T 7, TSH, LIPID, CMP #### [facility] [address] [place] [address] Dr. Chucho Jesus TSHon 04-24-2022 TSH 1.127 uIU/mL Normal 0.358-3.740 [facility] Comment on above: Performed By: #### T 7, TSH, LIPID, CMP #### [facility] [address] [place] [address] Dr. Chucho Jesus VITAMIN D 25 OHon 04-24-2022 VIT D 25-OH 35.2 ng/mL Normal [facility] Comment on above: Performed By: #### V ITAD, IRON #### [facility] [address], [place] [address] Dr. Chucho Jesus VIT D RANGES SEE BELOW Normal [facility] Comment on above: Result Comment: <20 ng/mL Vit D deficient 20 - <30 ng/mL Vit D insufficient 30 - 100 ng/mL Vit D sufficient >100 ng/mL Potential Toxicity Performed By: #### V ITAD, IRON #### [facility] [address], [place] [address] Dr. Chucho Jesus HCG ( test) Ql (U)O rdered By: James Churchill on 12-05-2020 Internal Control Pass [facility] Interpretation and review of laboratory results Normal [facility] POC , UrineOrdered By: James Churchill on 12-05-2020 HCG ( test) Ql (U) Negative Negative [facility] CTA CHEST WITH CONTRASTon CTA CHEST [...] by:Ady Tran MD03/25/17Edited Result - FINAL Normal [facility] Basic Metabolic Profon 02-19 (cont.) Normal [facility] Comment on above: Result Comment: Aver age GFR for 20-29 years old: 116 mL/min/1.73sq mChronic Kidney Disease: <60 mL/min/1.73sq mKidney failure: <15 mL/min/1.73sq meGFR calculated using average adult body mass. Additional eGFR calculator available at:[email or web address] [email or web address]_[email or web address].htm Performed By: #### C DP, BMP, TROPI ####[address] [place] [address] Anion gap 14 mmol/L Normal 03-22 [facility] Comment on above: Performed By: #### C DP, BMP, TROPI ####[address] [place] [address] BUN/CRE Ratio 13 Normal - [facility] Comment on above: Performed By: #### C DP, BMP, TROPI ####[address] [place] [address] Calcium 9.2 mg/dL Normal 8.6-10.4 [facility] Comment on above: Performed By: #### C DP, BMP, TROPI ####[address] [place] [address] Chloride 105 mmol/L Normal 98-107 [facility] Comment on above: Performed By: #### C DP, BMP, TROPI ####[address] [place] [address] CO2 23 mmol/L Normal 20- [facility] Comment on above: Performed By: #### C DP, BMP, TROPI ####[address] [place] [address] Creatinine 0.55 mg/dL Normal 0.50-0.90 [facility] Comment on above: Performed By: #### C DP, BMP, TROPI ####[address] [place] [address] eGFR (non-black) mL/min/{1.73_m2} Normal >60 [facility] Comment on above: Performed By: #### C DP, BMP, TROPI ####[address] [place] [address] Glucose mass conc 96 mg/dL Normal 70-99 [facility] Comment on above: Performed By: #### C DP, BMP, TROPI ####[address] [place] [address] Potassium molar conc 3.6 mmol/L Low 3.7-5.3 [facility] Comment on above: Performed By: #### C DP, BMP, TROPI ####[address] [place] [address] Sodium 142 mmol/L Normal 135-144 [facility] Comment on above: Performed By: #### C DP, BMP, TROPI ####[address] [place] [address] Staging: Normal [facility] Comment on above: Result Comment: Stag e 1: Some kidney damage normal GFRStage 2: Mild kidney damage GFR 60-89Stage 3: Moderate kidney damage GFR 30-59Stage 4: Severe kidney damage GFR 15-29Stage 5: Severe kidney damage GFR <15ESRD - chronic treatment by dialysis or transplantPerformed at [address] [place] [address] Performed By: #### C DP, BMP, TROPI ####[address] [place] [address] Urea nitrogen 7 mg/dL Normal 6-20 [facility] Comment on above: Performed By: #### C DP, BMP, TROPI ####[address] [place] [address] CBC with Diffon 02-19-2017 Abs. Basophil 0.00 k/uL Normal 0.0-0.2 [facility] Comment on above: Result Comment: Perf ormed at [address] [place] [address] Performed By: #### C DP, BMP, TROPI ####[address] [place] [address] Abs.Neutrophil (Seg) 7.10 k/uL Normal 1.8-8.0 [facility] Comment on above: Performed By: #### C DP, BMP, TROPI ####[address] [place] [address] Basophils/100 WBC Auto (Bld) 0 % Normal [facility] Comment on above: Performed By: #### C DP, BMP, TROPI ####[address] [place] [address] Eosinophils 0.30 10*3/uL Normal 0.0-0.4 [facility] Comment on above: Performed By: #### C DP, BMP, TROPI ####[address] [place] [address] Eosinophils/100 leukocytes 3 % Normal [facility] Comment on above: Performed By: #### C DP, BMP, TROPI ####[address] [place] [address] Erythrocyte distribution width Auto Ratio (RBC) 13.6 % Normal 12.1-15.2 [facility] Comment on above: Performed By: #### C DP, BMP, TROPI ####[address] [place] [address] Erythrocytes (RBC) 5.03 10*6/uL Normal 4.0-5.2 [facility] Comment on above: Performed By: #### C DP, BMP, TROPI ####[address] [place] [address] Hematocrit (HCT) 40.2 % Normal 36-46 [facility] Comment on above: Performed By: #### C DP, BMP, TROPI ####[address] [place] [address] Hemoglobin mass conc (Bld) 13.2 g/dL Normal 12.0-16.0 [facility] Comment on above: Performed By: #### C DP, BMP, TROPI ####[address] [place] [address] Lymphocytes 2.90 10*3/uL Normal 1.2-5.2 [facility] Comment on above: Performed By: #### C DP, BMP, TROPI ####[address] [place] [address] Lymphocytes/100 leukocytes 27 % Normal [facility] Comment on above: Performed By: #### C DP, BMP, TROPI ####[address] [place] [address] MCH 26.2 pg Normal 26-34 [facility] Comment on above: Performed By: #### C DP, BMP, TROPI ####[address] [place] [address] MCHC mass conc (RBC) 32.8 g/dL Normal 31-37 [facility] Comment on above: Performed By: #### C DP, BMP, TROPI ####[address] [place] [address] MCV 79.9 fL Low 80-100 [facility] Comment on above: Performed By: #### C DP, BMP, TROPI ####[address] [place] [address] Monocytes 0.60 10*3/uL Normal 0.0-1.0 [facility] Comment on above: Performed By: #### C DP, BMP, TROPI ####[address] [place] [address] Monocytes/100 leukocytes 5 % Normal [facility] Comment on above: Performed By: #### C DP, BMP, TROPI ####[address] [place] [address] Neutrophil (Seg) 65 % Normal [facility] Comment on above: Performed By: #### C DP, BMP, TROPI ####[address] [place] [address] Platelet mean volume (PMV) 9.6 fL Normal 6.0-12.0 [facility] Comment on above: Performed By: #### C DP, BMP, TROPI ####[address] [place] [address] Platelets 278 10*3/uL Normal 140-450 [facility] Comment on above: Performed By: #### C DP, BMP, TROPI ####[address] [place] [address] WBC (Leukocytes) 10.8 10*3/uL Normal 4.5-13.5 [facility] Comment on above: Performed By: #### C DP, BMP, TROPI ####[address] [place] [address] Auto Diff Performed NOT REPORTED Normal [facility] Comment on above: Performed By: #### C DP, BMP, TROPI ####[address] [place] [address] Erythrocyte morphology NOT REPORTED Normal [facility] Comment on above: Performed By: #### C DP, BMP, TROPI ####[address] [place] [address] Platelets NOT REPORTED Normal [facility] Comment on above: Performed By: #### C DP, BMP, TROPI ####[address] , [place] [id number] WBC Morphology NOT REPORTED Normal [facility] Comment on above: Performed By: #### C DP, BMP, TROPI ####[address] [place] [address] ED Noteon 02-19-2017 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 Performed By: #### C DP, BMP, TROPI ####[address] [place] [address] Troponin I.cardiac mass conc Normal [facility] Comment on above: Result Comment: Refe rence Range: <0.03 Within reference range. 0.03-0.09 Possible myocardial damage.Repeat at appropriate intervals to rule out chronic elevation. >= 0.10 Indicative of myocardial damage.Performed at [address] [place] [address] [phone] Performed By: #### C DP, BMP, TROPI ####[address] [place] [address] Vital Signs Date Time Vital Sign Value Performing Clinician Facility 02-27-2023 14:39-0400 Blood Pressure Location Gary [facility] 02-27-2023 14:39-0400 Diastolic blood pressure 66 mm[Hg] Gary MORRIS [facility] 02-27-2023 14:39-0400 Heart rate 70 /min Gary MORR[facility] 02-27-2023 14:39-0400 Respiratory rate 16 /min [facility] 02-27-2023 14:39-0400 Systolic blood pressure 106 mm[Hg] Gary NILL [facility] [place] 01-08-2022 08:09-0400 Body temperature 98.01 [degF] Queta Rice DO Work Phone: [employer] 01-08-2022 08:09-0400 Body weight 75.75 kg Queta Rice DO Work Phone: [facility] 01-08-2022 08:09-0400 Diastolic blood pressure 71 mm[Hg] Queta Rice DO Work Phone: [facility] [employer] 01-08-2022 08:09-0400 Heart rate 98 /min Queta Rice DO Work Phone: [employer] 01-08-2022 08:09-0400 Systolic blood pressure 112 mm[Hg] Queta Rice DO Work Phone: [facility] [employer] 12-10-2021 14:45-0400 Body height 166.37 cm Bret Vitalyeverardo Other [employer] Other 12-10-2021 14:45-0400 Body mass index (BMI) [Ratio] 26.55 kg/m2 Bret Vitalyeverardo Other [employer] Other 12-10-2021 14:45-0400 Body weight 73.48 kg Bret Long Other [employer] Other 12-10-2021 14:45-0400 Diastolic blood pressure 72 mm[Hg] Bret Long Other [employer] Other 12-10-2021 14:45-0400 Systolic blood pressure 103 mm[Hg] Bret Long Other [employer] Other 11-27-2021 14:01-0400 Body temperature 98.4 [degF] Queta Rice DO Work Phone: [facility] 11-27-2021 14:01-0400 Body weight 74.84 kg Queta Rice DO Work Phone: [facility] 11-27-2021 14:01-0400 Diastolic blood pressure 64 mm[Hg] Queta Rice DO Work Phone: [facility] 11-27-2021 14:01-0400 Heart rate 98 /min Queta Rice DO Work Phone: [facility] 11-27-2021 14:01-0400 Systolic blood pressure 121 mm[Hg] Queta Rice DO Work Phone: [facility] 12-05-2020 19:26-0400 Heart rate 106 /min James Breece PA-C Work Phone: [facility] 12-05-2020 19:25-0400 Body temperature 98.29 [degF] James Breece PA-C Work Phone: [facility] 12-05-2020 19:25-0400 Body weight 97.98 kg James Breece PA-C Work Phone: [facility] 12-05-2020 19:25-0400 Diastolic blood pressure 86 mm[Hg] James Breece PA-C Work Phone: [facility] 12-05-2020 19:25-0400 Respiratory rate 16 /min James Breece PA-C Work Phone: [facility] 12-05-2020 19:25-0400 SaO2% (BldA) [Mass fraction] 97 % James Breece PA-C Work Phone: [facility] 12-05-2020 19:25-0400 Systolic blood pressure 126 mm[Hg] James Breece PA-C Work Phone: [facility] Encounters Encounter Date Encounter Type Care Provider Facility Start: 01-20-2024 End: 01-20-2024 ambulatory KATELYN DUVALL Not Available Start: 01-01-2024 End: 01-01-2024 ambulatory LOURDES CHRISTIE Not Available Start: 12-17-2023 End: 12-17-2023 ambulatory LOURDES CHRISTIE Not Available Start: 02-27-2023 End: 02-28-2023 ambulatory Gary Howell LORETOJosafat Facility:[facility] Start: 02-27-2023 End: 02-27-2023 Patient encounter procedure Gary Howell LORETOJosafat General Surgery Nill/Said Pearl Start: 02-23-2023 ambulatory Alexandr Bourgeois Facility:[facility] Start: 02-05-2023 ambulatory Gary MORRIS Facility:[facility] Start: 11-07-2022 End: 11-08-[address] HOMAR [...] LEWIS . Facility:H1 Start: 02-18-2022 ambulatory QUETA Huffman~[id number] [facility] Start: 02-12-2022 ambulatory QUETA JAMA M~[id number] formerly [facility] Start: 02-12-2022 End: 02-12-2022 Telemedicine consultation with patient Queta Osorio DO Work Phone: [facility] Comment on above: Anxiety (Primary Dx) Start: 01-19-2022 Refill Luis Warren O Work Phone: [facility] Start: 01-19-2022 Refill Luis Warren O Work Phone: [facility] Start: 01-08-2022 End: 01-08-2022 ambulatory QUETA Huffman~[id number] DEVON OSORIO [facility] Start: 01-08-2022 End: 01-08-2022 Office outpatient visit 25 minutes Queta Huffman Rice DO Work Phone: [facility] Comment on above: Anxiety (Primary Dx) ; Hypotension, unspecified hypotension type Start: 01-08-2022 End: 01-08-2022 Patient encounter procedure Queta Huffman Rice DO Work Phone: [facility] Start: 12-11-2021 End: 12-11-2021 ambulatory QUETA Huffman~[id number] formerly [facility] Start: 12-10-2021 End: 12-10-2021 ambulatory Bret Long Other [facility] Other Start: 12-10-2021 Office outpatient ne w 45 minutes Bret Long [facility] Start: 11-27-2021 End: 11-27-2021 ambulatory QUETA Huffman~[id number] DEVON OSORIO [facility] Start: 11-27-2021 End: 11-27-2021 Office outpatient new 30 minutes Queta Huffman Rice DO Work Phone: [facility] Comment on above: Anxiety (Primary Dx) Start: 11-27-2021 End: 11-27-2021 Patient encounter procedure Queta Huffman Rice DO Work Phone: [facility] Start: 11-25-2021 Telephone encounter Dana Kinsey [facility] Start: 12-05-2020 End: 12-05-2020 ambulatory PHYSICIAN NO [facility] Start: 12-05-2020 End: 12-05-2020 Office outpatient new 20 minutes James Churchill PA-C Work Phone: [facility] Comment on above: Vaginal sore (Primar y Dx) Start: 02-19-2017 End: 02-19-2017 Emergency department patient visit KIM Hamilton [facility] Procedures Date Procedure Procedure Detail Performing Clinician Start: 11-27-2021 Adult depression scr eening assessment Queta Osorio DO Work Phone: Start: 12-05-2020 Urine test visual color cmprsn meths James Meliza Churchill PA-C Work Phone: Start: 02-19-2017 Ct angiography chest w/contrast/noncontrast KIM SUTHERLAND Start: 02-19-2017 SALINE LOCK IV KIM SIBLEY Start: 02-19-2017 TELEMETRY MONITORING SEBASTIAN SUTHERLAND Start: 02-19-2017 BASIC METABOLIC PANEL Nathanael MURRAYRadha ENA Start: 02-19-2017 CBC WITH AUTO DIFFERENTIAL KIM SUTHERLAND Start: 02-19-2017 TROPONIN KIM Howell Start: 02-19-2017 EKG 12-LEAD KIM Howell None (qualifier value) Henrik MORRIS Plan of Treatment Date Care Activity Detail Author Start: 11-27-2022 Adolescent depressio n screening assessment Depression Screening [facility] Start: 03-06-2022 Influenza vaccination T [facility] Start: 02-07-2022 End: 02-07-2022 Patient encounter procedure 02/07/2022 Office Visit Family Medicine Queta Osorio DO [address] [place] [phone] [facility] Start: 12-19-2021 End: 12-19-2021 Patient encounter procedure 12/19/2021 Office Visit Family Queta Benton DO [address] [place] [phone] [facility] Start: 12-07-2021 COVID-19 Vaccine (3 - Booster for Moderna series) COVID-19 Vaccine (3 - Booster for Moderna series) [facility] Start: 11-27-2021 End: 11-27-2021 Patient encounter procedure 11/27/2021 Office Visit Family Medicine Queta Osorio, DO [address] [place] [address] [facility] Start: 11-24-2021 Adolescent depressio n screening assessment Depression Screening [facility] Start: 11-24-2021 Hepatitis C screening Hepatitis C Sc reening [facility] Start: 11-24-2021 HIV screening HIV Screening [facility] Start: 11-24-2021 Social Influencers o f Health Screening Social Influencers of Health Screening [facility] Start: 03-06-2021 Influenza vaccination Sequenti al Influenza Vaccine (Season Ended) [facility] Start: 2017 Screening for malign ant neoplasm of cervix Cervical Cancer Screening: Pap Smear [facility] Start: 2015 DTaP,Tdap,and Td Vac cines (1 - Tdap) DTaP,Tdap,and Td Vaccines (1 - Tdap) [facility] Start: 2014 Hepatitis C screening Hepatitis C Sc reening [facility] Start: 2011 HIV screening HIV Screening [facility] Start: 2008 COVID-19 Vaccine (1) COVID-19 Vaccin e (1) [facility] Start: 2008 Depression screening using PHQ-9 (Patient Health Questionnaire 9) score Depression Screening (PHQ9) [facility] Start: 2007 HPV Vaccines (1 - 2- dose series) HPV Vaccines (1 - 2-dose series) [facility] Start: 2007 Vaccination for april n papillomavirus HPV Vaccines (1 - 2-dose series) [facility] Start: 2001 COVID-19 Vaccine (1) COVID-19 Vaccin e (1) [facility] Start: 1999 History and physical examination, annual for health maintenance Wellness Visit [facility] Start: 1996 Screening for Chlamy marilee trachomatis Chlamydia Screening [facility] Start: 1996 Screening for malign ant neoplasm of cervix Pap Smear [facility] Start: 1996 Tetanus vaccination Tetanus: Every 1 0yrs [facility] Chlamydia trachomati s rRNA assay Chlamydia/GC/Trichomonas Amplified RNA Microbiology Routine Vaginal sore Ordered: 12/05/2020 [facility] Comment on above: Ordered: 12/05/2020 HSV by PCR Superficial Site HSV by PCR Superficial Site Lab Routine Vaginal sore Ordered: 12/05/2020 [facility] Comment on above: Ordered: 12/05/2020 Neisseria gonorrhoea e nucleic acid detection Chlamydia/Gonorrhoeae Amplified RNA Microbiology Routine Vaginal sore Ordered: 12/05/2020 [facility] Comment on above: Ordered: 12/05/2020 Trichomonas vaginali s Amplified RNA Trichomonas vaginalis Amplified RNA Microbiology Routine Vaginal sore Ordered: 12/05/2020 [facility] Comment on above: Ordered: 12/05/2020 Immunizations Immunization Date Immunization Notes Care Provider Bj mcintosh 07-09-2021 SARS-CoV-2 (COVID-19 ) mRNA-1273 vaccine Gary MORRIS [facility] [place] 06-08-2021 SARS-CoV-2 (COVID-19 ) mRNA-1273 vaccine Gary MORRIS [facility] [place] Payers Date Payer Category Payer Medicaid [employer] [place] [id number] 2021-Present [address] [address] [place] [address] [id number] 2020 Medicaid [id number] 2016 Unknown [id number] 2013 Unknown [id number] 1996 Unknown [id number] 2.16.840.1.333074.3.579.2.903 1996 Unknown [id number] 2.16.840.1.976938.3.579.2.114 1996 Unknown [id number] 2.16.840.1.905160.3.579.2.1142 1996 Unknown [id number] 2.16.840.1.042922.3.579.2.1143 1996 Unknown [id number] 2.16.840.1.866088.3.579.2.1143 1996 Unknown [id number] 2.16.840.1.190309.3.579.2.1143 1996 Unknown [id number] 2.16.840.1.061641.3.579.2.593 1996 Unknown [id number] 2.16.840.1.181908.3.579.2.593 1996 Unknown [id number] 2.16.840.1.739196.3.579.2.593 1996 Unknown [id number] 2.16.840.1.716084.3.579.2.593 1996 Unknown [id number] 2.16.840.1.115450.3.579.2.593 1996 Unknown [id number] 2.16.840.1.532139.3.579.2.593 1996 Unknown [id number] 2.16.840.1.799285.3.579.2.593 1996 Unknown [id number] 2.16.840.1.093586.3.579.2.727 1996 Unknown [id number] 2.16.840.1.403248.3.579.2.1259 1996 Unknown [id number] 2.16.840.1.234919.3.579.2.1259 1996 Unknown [id number] 2.16.840.1.891282.3.579.2.1259 1960 Unknown [id number] 2.16.840.1.177475.3.579.2.727 1959 Medicaid [id number] 1959 Self-pay 1959 Unknown [id number] 1959 Unknown [id number] 1959 Unknown [id number] Unknown [id number] 2.16.840.1.652851.3.579.2.531 Social History Date Type Detail Facility Start: 12-05-2020 End: 02-27-2023 Tobacco smoking status NHIS Never smoker [facility] Start: 12-05-2020 End: 11-27-2021 Tobacco use and exposure Never used [facility] Start: 12-05-2020 Alcohol intake Current drinke r of alcohol (finding) [facility] Start: 12-05-2020 End: 11-27-2021 History SDOH Alcohol Frequency 1 [facility] Start: 12-05-2020 Alcohol Comment occ [facility] Start: [facility] Start: 11-17-2021 End: 02-12-2022 Exposure to SARS-CoV-2 (event) Not sure [facility] Tobacco smoking stat [facility] Tobacco smoking consumption unknown [facility] Start: 11-27-2021 End: 02-12-2022 Alcohol intake Lifetime non-drinker (finding) [facility] Start: 1996 Sex Assigned At Female T [facility] Sex Assigned At [facility] Tobacco smoking status Never [facility] [place] Functional Status Date Assessment Result Facility 02-27-2023 Functional Status N/A [facility] [place] Clinical Notes 12-05-2020 to 02-27-2023 Queta Osorio, - 02/12/2022 7:30 AM EDTDana Rosario MA - 01/08/2022 8:00 AM Chema [...] with excisional biopsy under local anesthesia at [facility]; call with problems/questions. Follow-up No qualifying [...] Recorded SARS-CoV-2 (COVID-19) mRNA-1273 vaccine 06/08/2021 Recorded [facility] Comment on above: Result Comment: Elec [...] at later date. documented in this encounter [facility] 01-08-2022 History of Present illness Narrative bp's [...] due to buspirone. documented in this encounter [facility] 12-10-2021 Evaluation note Encounter Date Diagnosis Assessment Notes Dec, Irritable bowel syndrome with diarrhea (ICD-10 - K58.0) Continue medications without change Dec, Epigastric pain (ICD-10 - R10.13) Dec, Chronic nausea (ICD-10 - R11.0) Dec, Family history of carcinoma in situ of anal canal (ICD-10 - Z84.89) Dec, Other Continue Cari kauffman Pt to call if symptoms worsen [facility] Other 05-25-2022 History of Present illness Narrative* Queta Huffman Devon, DO - 11/27/2021 2:00 PM EDT Subjective Patient ID: Leslie Ford is a 26 y.o. female. Chief Complaint Patient presents with [facility] 26 y.o. female [facility]. History of anxiety and depression. Has been [...] it ( July 2017) documented in [facility] [id number] History of Present illness Narrative* Dana Rosario [...] like me to do? documented in this [facility]06-02-2021 History of Present illness Narrative* James Churchill PA-C - 12/05/2020 8:22 PM EDT Images from the original note were not included. Patient Name: [facility] [id number] Date Of : Date Of Visit: 1995 12/05/2020 MRN# Provider: [id number] James Churchill PA-C Chief Complaint Patient presents [...] urine from irritatingthe sores. ? Take an sdma-pud-fgmajme pain medicine, such as acetaminophen (Tylenol), ibuprofen [...] Log into your personal health record on https://CodeEvalt.Wyst and enter E579 in the Education box to learn more about Genital Herpes: Care Instructions. Current as of: August 31, 2019 Content Version: 12.8 [employer]. Care instructions adapted under license by your healthcare professional. If you have questions about a medical condition or this instruction, always ask your healthcare professional. [employer] disclaims any warranty or liability for your use of this information. documented in this [id number] Instructions* Patient Instructions* James Churchill PA-C - [...] urine from irritatingthe sores. ? Take an sftt-jqk-rlnyixz pain medicine, such as acetaminophen (Tylenol), ibuprofen [...] Log into your personal health record on https://CodeEvalt.Wyst and enter E579 in the Education box to learn more about Genital Herpes: Care Instructions. Current as of: August 31, 2019 Content Version: 12.8 [id number] [employer]. Care instructions adapted under license by your healthcare professional. If you have questions about a medical condition or this instruction, always ask your healthcare professional. [employer] disclaims any warranty or liability for your use of this information. documented in [facility]Health[facility] + Plan note No data available for this section [facility] [place] Evaluation note* Diagnosis Vaginal sore- Primary [facility] Diagnosis Anxiety- Primary Anxiety state, unspecified documented in this encounter [facility] note* Diagnosis Anxiety- Primary Anxiety state, unspecified Hypotension, unspecified hypotension type documented in this encounter [facility] note* Diagnosis Anxiety- Primary Anxiety state, unspecified documented in this encounter [facility] general Narrative - Reported* Type Description Date Medical History IBS [facility] Other Hospital Discharge instructions No data available for this section [facility] [place] Progress note No data available for this section General Surgery [place] Summary Purpose Family History No Family History Records FoundNo Family History Records FoundNo Family History Records FoundNo Family History Records FoundNo Family History Records FoundNo Family History Records FoundNo Family History Records FoundNo Family History Records Found Advance Directives No Advanced Directives Records FoundDocuments on File Type Date Recorded 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 Advance Directives and Living Will Documents on File Type Date 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 Additional Source Comments INFORMATION SOURCE (unrecogn ized section and content) DATE CREATED AUTHOR 12/30/2017 [facility] DATE CREATED AUTHOR AUTHOR'S ORGANIZ ATION 12/06/2020 [facility] DATE CREATED AUTHOR AUTHOR'S ORGANIZ ATION 02/16/2022 [facility] DATE CREATED AUTHOR AUTHOR'S ORGANIZ ATION 02/27/2022 [facility] DATE CREATED AUTHOR AUTHOR'S ORGANIZ ATION 11/14/2022 [facility] DATE CREATED AUTHOR AUTHOR'S ORGANIZ ATION 03/02/2023 [facility] DATE CREATED AUTHOR AUTHOR'S ORGANIZ ATION 07/05/2023 [facility] DATE CREATED AUTHOR AUTHOR'S ORGANIZ ATION 01/24/2024 [facility] EPIC Reason for Visit (unrecogniz ed [...] a day. 60 each 1 11/27/2021 01/26/2022 Prescription Sig Dispensed Refills Start [...] Care Teams (unrecognized sec tion and content) Table Keeper Relationship Specialty Start Date End Date Queta Osorio, [address] [place] [phone] PCP - General Family Medicine 11/27/21 Table Keeper Relationship Specialty Start Date End Date Queta Osorio, [address] [place] [phone] PCP - General Family Medicine 11/27/21 Table Keeper Relationship Specialty Start Date End Date Queta Osorio, [address] [place] [phone] PCP - General Family Medicine 11/27/21 [...] BE BASED ON THE PRIMARY CLINICAL RECORDS. [facility]. provides no warranty or guarantee of the accuracy or completeness of information in this document.
--- NOTE | 2024-02-02 19:30 | ED.GENADUL1 ---
HPI HPI - General Adult General Chief complaint: Nausea/Vomiting/Diarrhea Stated complaint: not eating or drinking 13 weeks Time Seen by Provider: 02/02/24 19:09 Source: patient Mode of arrival: walk-in Limitations: no limitations History of Present Illness HPI narrative: 28-year-old female who is 13 weeks presents for poor appetite. She has not been eating or drinking much. No abdominal pain or vaginal bleeding. No dysuria or fever. She has a Zofran pump which she has had for 2 weeks. Related Data Allergies Allergy/AdvReac Type Severity Reaction Status Date / Time No Known Drug Allergies Allergy Verified 02/02/24 19:17 Opioid HPI Opioid Management Most Recent Opioid Data: No Data to Display Review of Systems ROS Narrative A ten point review of systems is negative except as noted above. Exam Narrative Exam Narrative: Nurses note and vital signs reviewed and patient is not hypoxic. General: The patient appears well and in no apparent distress. Patient is resting comfortably on cart. Skin: Warm, dry, no pallor noted. There is no rash noted. Head: Normocephalic, atraumatic Eye: Normal conjunctiva, no drainage Ears, Nose, Mouth, and Throat: oral mucosa is moist. Nares patent. Cardiovascular: Regular Rate and Rhythm Respiratory: Patient is in no distress, no accessory muscle use, lungs are clear to auscultation, no wheezing, rales or rhonchi Back: non-tender GI: Soft and nontender Musculoskeletal: The patient has no evidence of calf tenderness, no pitting edema, symmetrical pulses noted bilaterally Neurological: A&O, normal speech Psychiatric: Cooperative Constitutional Vital Signs, click to edit/add: Last Vital Signs Temp 97.9 F 02/02/24 19:14 Pulse 72 02/02/24 19:14 Resp 18 02/02/24 19:14 BP 119/81 02/02/24 19:14 Pulse Ox 99 02/02/24 19:14 O2 Del Method Room Air 02/02/24 19:14 Course Vital Signs Vital signs: Vital Signs Temperature 97.9 F 02/02/24 19:14 Pulse Rate 72 02/02/24 19:14 Respiratory Rate 18 02/02/24 19:14 Blood Pressure 119/81 02/02/24 19:14 Pulse Oximetry 99 02/02/24 19:14 Oxygen Delivery Method Room Air 02/02/24 19:14 Temperature 97.9 F 02/02/24 19:14 Pulse Rate 72 02/02/24 19:14 Respiratory Rate 18 02/02/24 19:14 Blood Pressure 119/81 02/02/24 19:14 Pulse Oximetry 99 02/02/24 19:14 Oxygen Delivery Method Room Air 02/02/24 19:14 Medical Decision Making MDM Narrative Medical decision making narrative: Blood work is nonspecific. Greater than 80 ketones in her urine and she was given IV fluids. 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 heart tones were normal. Treatment diagnosis and follow-up were discussed with the patient. Differential Diagnosis Differential Diagnosis: Nausea and vomiting, dehydration Lab Data Lab results reviewed: Yes I reviewed the patient's lab results Labs: Lab Results 02/02/24 02/02/24 Range/Units 19:20 19:21 WBC 10.9 (4.0-11.0) 10^3/uL RBC 4.72 (4.20-5.40) 10^6/uL Hgb 13.5 (12.0-16.0) g/dL Hct 39.8 (36.0-48.0) % MCV 84.3 (81.0-99.0) fL MCH 28.6 (26.7-34.0) pg MCHC 33.9 (29.9-35.2) g/dL RDW 12.6 (11.0-15.0) % Plt Count 261 (150-450) 10^3/uL MPV 9.8 (9.5-13.5) fL Neut % (Auto) 69.7 (43.0-75.0) % Lymph % (Auto) 21.4 (20.5-60.0) % [place] % (Auto) 6.9 (1.7-12.0) % Eos % (Auto) 1.1 (0.9-7.0) % Baso % (Auto) 0.5 (0.2-2.0) % Neut # (Auto) 7.6 H (1.4-6.5) 10^3/uL Lymph # (Auto) 2.3 (1.2-3.8) 10^3/uL [place] # (Auto) 0.8 (0.3-0.8) 10^3/uL Eos # (Auto) 0.1 (0.0-0.7) 10^3/uL Baso # (Auto) 0.1 (0.0-0.1) 10^3/uL Abs Immat Gran (auto) 0.04 H (0.00-0.03) 10^3/uL Imm/Tot Granulo (auto) 0.4 (0.0-0.5) % Sodium 132 L (136-145) mmol/L Potassium 3.6 (3.5-5.1) mmol/L Chloride 100 (98-107) mmol/L Carbon Dioxide 22.4 (21.0-32.0) mmol/L Anion Gap 13.2 BUN 8.0 (7.0-18.0) mg/dL Creatinine 0.53 L (0.55-1.02) mg/dL Est GFR ( Amer) >60 (>=60) Est GFR (Non-Af Amer) >60 (>=60) BUN/Creatinine Ratio 15.1 Glucose 76 (74-106) mg/dL Calcium 9.0 (8.5-10.1) mg/dL Urine Color Yellow (YELLOW) Urine Clarity Clear (CLEAR) Urine pH 6.0 (5.0-9.0) Ur Specific [place] 1.025 (1.005-1.025) Urine Protein Negative (NEG/TRACE) mg/dL Urine Glucose (UA) Negative (NEGATIVE) mg/dL Urine Ketones >=80 A (NEGATIVE) mg/dL Urine Occult Blood Negative (NEGATIVE) Urine Nitrite Negative (NEGATIVE) Urine Bilirubin Negative (NEGATIVE) Urine Urobilinogen 1.0 (0.2-1.0) EU/dL Ur Leukocyte Esterase Negative (NEGATIVE) Urine RBC None seen (0-2) #/HPF Urine WBC 0-2 A (NONE SEEN) #/HPF Ur Squamous Epith Cells Moderate A (NONE/RARE) #/LPF Urine Crystals None seen (None Seen) #/HPF Urine Bacteria None seen (NONE SEEN) #/HPF Urine Casts None seen (NONE SEEN) #/LPF Urine Mucus Moderate A (NONE SEEN) Ur Culture Indicated? No Discharge Plan Discharge Stand Alone Forms: Portal Instructions Chief Complaint: Nausea/Vomiting/Diarrhea Clinical Impression: Nausea Patient Disposition: Home, Self-Care Time of Disposition Decision: 20:57 Condition: Good Mode of Transportation: Private Vehicle Print Language: Mohawk Instructions: Acute Nausea and Vomiting (ED) Referrals: Tong Beltran MD [Primary Care Provider] - 1 week
[2024-02-02 19:36] LABS: Basophils Absolute Auto 0.1 10^3/uL (0.0-0.1); Basophils Percent Auto 0.5 % (0.2-2.0); Eosinophils Absolute Auto 0.1 10^3/uL (0.0-0.7); Eosinophils Percent Auto 1.1 % (0.9-7.0); Hematocrit 39.8 % (36.0-48.0); Hemoglobin 13.5 g/dL (12.0-16.0); Immature Granulocytes Abs Auto 0.04 10^3/uL (0.00-0.03); Immature Granulocytes Pct Auto 0.4 % (0.0-0.5); Lymphocytes Absolute Auto 2.3 10^3/uL (1.2-3.8); Lymphocytes Percent Auto 21.4 % (20.5-60.0); Mean Corpuscular HGB Conc 33.9 g/dL (29.9-35.2); Mean Corpuscular Hemoglobin 28.6 pg (26.7-34.0); Mean Corpuscular Volume 84.3 fL (81.0-99.0); Mean Platelet Volume 9.8 fL (9.5-13.5); Monocytes Absolute Auto 0.8 10^3/uL (0.3-0.8); Monocytes Percent Auto 6.9 % (1.7-12.0); Neutrophils Absolute Auto 7.6 10^3/uL (1.4-6.5); Neutrophils Percent Auto 69.7 % (43.0-75.0); Platelet Count 261 10^3/uL (150-450); Red Blood Count 4.72 10^6/uL (4.20-5.40); Red Cell Distribution Width 12.6 % (11.0-15.0); White Blood Count 10.9 10^3/uL (4.0-11.0)
[2024-02-02 19:37] LABS: Bilirubin Urine NEGATIVE (NEGATIVE); Blood Urine NEGATIVE (NEGATIVE); Clarity Urine CLEAR (CLEAR); Color Urine YELLOW (YELLOW); Glucose Urine UA NEGATIVE (NEGATIVE); Ketones Urine >=80 mg/dL (NEGATIVE); Leukocyte Esterase Urine NEGATIVE (NEGATIVE); Nitrite Urine NEGATIVE (NEGATIVE); Protein Urine NEGATIVE (NEG/TRACE); Specific Gravity Urine 1.025 (1.005-1.025)
[2024-02-02] MEDS: 0.9 % SODIUM CHLORIDE 1,000 ML 1000 ML IV (19:39)
[2024-02-02 19:44] LABS: Bacteria Urine NONE SEEN #/HPF (NONE SEEN); Cast Seen? NONE SEEN #/LPF (NONE SEEN); Crystals Seen? None Seen #/HPF (None Seen); Mucus Urine MODERATE (NONE SEEN); RBC Urine NONE SEEN #/HPF (0-2); Squamous Epithelial Cell Urine MODERATE #/LPF (NONE/RARE); Urine Culture Indicated NO; WBC Urine 0-2 #/HPF (NONE SEEN)
[2024-02-02 19:47] LABS: Anion Gap 13.2; BUN Creatinine Ratio 15.1; Carbon Dioxide 22.4 mmol/L (21.0-32.0); Chloride 100 mmol/L (98-107); Estimated GFR (African America >60 (>=60); Estimated GFR (Non-African Ame >60 (>=60); Glucose 76 mg/dL (74-106); Potassium 3.6 mmol/L (3.5-5.1); Sodium 132 mmol/L (136-145)
[2024-02-02 21:33] VITALS: BP 124/75; PULSE 72; O2SAT 99
== END 2024-02-02 21:33 | disposition home or self-care (01) ==
PROVIDERS: Emergency Provider Emergency Medicine; PCP Family Medicine
DX: O26.891 Other specified pregnancy related conditions, first trimester (principal); R11.0 Nausea; Z3A.13 13 weeks gestation of pregnancy
CPT/HCPCS: 36415; 80048; 81001; 85025; 99284

== ENCOUNTER 2024-02-15 20:44 | Outpatient (REF) | payer OTHER, SELFPAY ==
--- OUTSIDE RECORDS SUMMARY | 2024-02-15 20:48 | XMS_ITS | CCD ---
Author Organization [facility] Care Team Providers Care Major Assembly Inspector Name Role Phone KIM SUTHERLAND Unavailable Unavailable WILLY CONKLIN Unavailable Unavailable HOMAR LEWIS Unavailable Unavailable HOMAR LEWIS Unavailable Unavailable No, Physician Primary Care Provider Unavailabl e FINN, PHYSICIAN Primary Care Unavailable JAMES ALCAZAR Attending Unavailable Unavailable Primary Care Provider Unavailabl e Queta Osorio DO Primary Care Provider Bret Long Unavailable RICE RICE, QUETA QUETA M~[phone] Attending Unavailable RICE RICE, QUETA QUETA M~[phone] Primary Ca re Unavailable RICE RICE, QUETA QUETA M~[id number] Attending Unavailable RICE RICE, QUETA QUETA M~[id number] Primary Ca re Unavailable RICE RICE, QUETA QUETA M~[id number] Attending Unavailable RICE RICE, QUETA QUETA M~[id number] Primary Ca re Unavailable RICE RICE, QUETA QUETA M~[id number] Attending Unavailable RICE RICE, QUETA QUETA M~[id number] Primary Ca re Unavailable RICE RICE, QUETA QUETA M~[id number] Referring Unavailable RICE RICE, QUETA QUETA M~[id number] Primary Ca re Unavailable ITA REYES Admitting [...] Care Unavailable CLAUDE KHAN Primary Care Physician [phone] Gary MORRIS Attending Unavailable Alexandr Bourgeois Attending Unavailab Alexandr Ventura Admitting Unavailab Homar Mcgowan Primary Care Unavailable LOURDES CHRISTIE Attending Unavailable KATELYN DUVALL Attending Unavailable Allergies Allergy Classification Reported Allergen(s) Allergy Type Date of Onset Reaction(s) Facility (1 source) No Known Medication Allergies; Translations: [No Known Medication Allergies] Propensity to adverse reactions (disorder) [facility] Repository Medications Current Medications Medication Drug [...] Interpretation Reference Range Facility Facesheeton 03-02-2023 Facesheet [id number] CD:127 Normal [facility] Ambulatory Visit Summaryon 0 02-27-2023 Ambulatory [...] History of pre-eclampsia Insomnia Migraines Overweight Normal [facility] RAD - Ultrasound Reporton RAD - Ultrasound Report [id number] D:127 Normal [facility] Physician Referralon 023 Physician Referral [id number] D:127 Normal [facility] INSULINon 11-08-2022 Insulin 7.7 uIU/mL Normal 2.6-24.9 [facility] Comment on above: Performed By: #### V ITAD, IRON #### [facility] [address] [place] [address] Dr. Chucho Jesus CBC AUTO DIFFon 11-07-2022 BASO # 0.0 103/ul Normal 0.0-0.1 [facility] Comment on above: Performed By: #### V ITAD, IRON #### [facility] [address] [place] [address] Dr. Chucho Jesus Basophils/100 WBC (Bld) 0.6 % Normal 0.2-2.0 [facility] Comment on above: Performed By: #### V ITAD, IRON #### [facility] [address] [place] [address] Dr. Chucho Jesus EO # 0.1 103/ul Normal 0.0-0.7 [facility] Comment on above: Performed By: #### V ITAD, IRON #### [facility] [address] [place] [address] Dr. Chucho Jesus Eosinophils/100 WBC (Bld) 1.4 % Normal 0.9-7.0 [facility] Comment on above: Performed By: #### V ITAD, IRON #### [facility] [address] [place] [address] Dr. Chucho Jesus Erythrocyte distribution width (RBC) [Ratio] 13.9 % Normal 11.0-15.0 [facility] Comment on above: Performed By: #### V ITAD, IRON #### [facility] [address] [place] [address] Dr. Chucho Jesus Hematocrit (Bld) [Volume fraction] 45.6 % Normal 36.0-48.0 [facility] Comment on above: Performed By: #### V ITAD, IRON #### [facility] [address] [place] [address] Dr. Chucho Jesus Hemoglobin (Bld) [Mass/Vol] 15.1 g/dL Normal 12.0-16.0 [facility] Comment on above: Performed By: #### V ITAD, IRON #### [facility] [address] [place] [address] Dr. Chucho Jesus IG # 0.01 10e3/ul Normal 0.00-0.03 [facility] Comment on above: Performed By: #### V ITAD, IRON #### [facility] [address] [place] [address] Dr. Chucho Jesus IG % 0.1 % Normal 0.0-0.5 [facility] Comment on above: Performed By: #### V ITAD, IRON #### [facility] [address] [address] [address] Chucho Jesus LYMPH # 1.9 103/ul Normal 1.2-3.8 [facility] Comment on above: Performed By: #### V ITAD, IRON #### [facility] [address] [place] [address] Dr. Chucho Jesus Lymphocytes/100 WBC (Bld) 26.3 % Normal 20.5-60.0 [facility] Comment on above: Performed By: #### V ITAD, IRON #### [facility] [address] [place] [address] Dr. Chucho Jesus MANUAL DIFF REQ NO Normal [facility] Comment on above: Performed By: #### V ITAD, IRON #### [facility] [address] [place] [address] Dr. Chucho Jesus MCH (RBC) [Entitic mass] 27.9 pg Normal 26.7-34.0 [facility] Comment on above: Performed By: #### V ITAD, IRON #### [facility] [address] [place] [address] Dr. Chucho Jesus MCHC (RBC) [Mass/Vol] 33.1 g/dL Normal 29.9-35.2 [facility] Comment on above: Performed By: #### V ITAD, IRON #### [facility] [address] [place] [address] Dr. Chucho Jesus MCV (RBC) [Entitic vol] 84.1 fL Normal 81.0-99.0 [facility] Comment on above: Performed By: #### V ITAD, IRON #### [facility] [address] [address] [address] Chucho Jesus MONO # 0.5 103/ul Normal 0.3-0.8 [facility] Comment on above: Performed By: #### V ITAD, IRON #### [facility] [address] [place] [address] Dr. Chucho Jesus Monocytes/100 WBC (Bld) 7.3 % Normal 1.7-12.0 [facility] Comment on above: Performed By: #### V ITAD, IRON #### [facility] [address] [place] [address] Dr. Chucho Jesus NEUT # 4.6 103/ul Normal 1.4-6.5 [facility] Comment on above: Performed By: #### V ITAD, IRON #### [facility] [address] [place] [address] Dr. Chucho Jesus Neutrophils/100 WBC (Bld) 64.3 % Normal 43.0-75.0 [facility] Comment on above: Performed By: #### V ITAD, IRON #### [facility] [address] [place] [address] Dr. Chucho Jesus Platelet mean volume (Bld) [Entitic vol] 10.9 fL Normal 9.5-13.5 [facility] Comment on above: Performed By: #### V ITAD, IRON #### [facility] [address] [place] [address] Dr. Chucho Jesus PLT 226 103/ul Normal 150-450 [facility] Comment on above: Performed By: #### V ITAD, IRON #### [facility] [address] [place] [address] Dr. Chucho Jesus RBC 5.42 106/ul Critically high 4.20-5.40 [facility] Comment on above: Performed By: #### V ITAD, IRON #### [facility] [address] [place] [address] Dr. Chucho Jesus WBC 7.2 103/ul Normal 4.0-11.0 [facility] Comment on above: Performed By: #### V ITAD, IRON #### [facility] [address] [address] [address] Chucho Jesus FREE THYROXINE INDEX T7on FTI 3.29 Normal 1.30-4.50 [facility] Comment on above: Performed By: #### V ITAD, IRON #### [facility] [address] [address] [address] Chucho Jesus T3U 35.0 % Normal 30.0-39.0 [facility] Comment on above: Performed By: #### V ITAD, IRON #### [facility] [address] [address] [address] Chucho Jesus T4 [Mass/Vol] 9.40 ug/dL Normal 4.80-13.90 [facility] Comment on above: Performed By: #### V ITAD, IRON #### [facility] [address] [address] [address] Chucho Jesus GLYCOHEMOGLOBIN A1Con 2022 ADA RECOMMENDATION SEE BELOW Normal [facility] Comment on above: Result Comment: ADA RECOMMENDED LIMIT 4.0 - 6.0 ADA THERAPEUTIC TARGET < 7.0 ACTION SUGGESTED > 7.0 Performed By: #### A 1C #### [facility] [address] [address] [address] Chucho Jesus Glucose [Mass/Vol] 94 mg/dL Normal [facility] Comment on above: Performed By: #### A 1C #### [facility] [address] [address] [address] Chucho Jesus HbA1c (Bld) [Mass fraction] 4.9 % Normal 4.5-6.2 [facility] Comment on above: Performed By: #### A 1C #### [facility] [address] [address] [address] Chucho Jesus IRONon 11-07-2022 Iron [Mass/Vol] 81.0 ug/dL Normal 50.0-170.0 [facility] Comment on above: Performed By: #### V ITAD, IRON #### [facility] [address] [address] [address] Chucho Jesus LIPID PROFILEon 11-07-2022 CHOL-HDL RATIO NORM SEE BELOW Normal [facility] Comment on above: Result Comment: 3.3 - 4.4 LOW RISK 4.4 - 7.1 AVERAGE RISK 7.1 - 11.0 MODERATE RISK >11.0 HIGH RISK Performed By: #### V ITAD, IRON #### [facility] [address] [address] [address] Chucho Jesus Cholesterol [Mass/Vol] 126 mg/dL Normal <=200 [facility] Comment on above: Performed By: #### V ITAD, IRON #### [facility] [address] [address] [address] Chucho Jesus Cholesterol in HDL [Mass/Vol] 38 mg/dL Critically low 40-60 [facility] Comment on above: Performed By: #### V ITAD, IRON #### [facility] [address] [address] [address] Chucho Jesus Cholesterol in LDL [Mass/Vol] 79.4 mg/dL Normal [facility] Comment on above: Performed By: #### V ITAD, IRON #### [facility] [address] [address] [address] Chucho Jesus Cholesterol.total/C holesterol in HDL [Mass ratio] 3.3 {ratio} Normal [facility] Comment on above: Performed By: #### V ITAD, IRON #### [facility] [address] [address] [address] Chucho Jesus HDL NORMAL > or = 60 mg/dl - LO W CARDIOVASCULAR RISK <40 mg/dl - HIGH CARDIOVASCULAR RISK Normal [facility] Comment on above: Performed By: #### V ITAD, IRON #### [facility] [address] [address] [address] Chucho Jesus LDL CALC NORMAL SEE BELOW Normal [facility] Comment on above: Result Comment: <100 mg/dl OPTIMAL 100 - 129 mg/dl NEAR OR ABOVE OPTIMAL 130 - 159 mg/dl BORDERLINE HIGH 160 - 189 mg/dl HIGH >190 mg/dl VERY HIGH Performed By: #### V ITAD, IRON #### [facility] [address] [address] [address] Chucho Jesus Triglyceride [Mass/Vol] 43 mg/dL Normal <=150 [facility] Comment on above: Performed By: #### V ITAD, IRON #### [facility] [address] [place] [address] Dr. Chucho Jesus VLDL CALC 8.6 mg/dL Normal [facility] Comment on above: Performed By: #### V ITAD, IRON #### [facility] [address] [place] [address] Dr. Chucho Jesus PROF 14(COMP METB)on 023 Albumin [Mass/Vol] 4.2 g/dL Normal 3.4-5.0 [facility] Comment on above: Performed By: #### V ITSONIYA, IRON #### [facility] [address] [place] [address] Dr. Chucho Jesus Albumin/Globulin [Mass ratio] 1.1 {ratio} Normal [facility] Comment on above: Performed By: #### V ITAD, IRON #### [facility] [address] [place] [address] Dr. Chucho Jesus ALP [Catalytic activity/Vol] 93 U/L Normal 46-116 [facility] Comment on above: Performed By: #### V ITAD, IRON #### [facility] [address] [place] [address] Dr. Chucho Jesus ALT [Catalytic activity/Vol] 16 U/L Normal 14-59 [facility] Comment on above: Performed By: #### V ITAD, IRON #### [facility] [address] [place] [address] Dr. Chucho Jesus Anion gap [Moles/Vol] 14.3 mmol/L Normal [facility] Comment on above: Performed By: #### V ITAD, IRON #### [facility] [address] [place] [address] Dr. Chucho Jesus AST [Catalytic activity/Vol] 16 U/L Normal 15-37 [facility] Comment on above: Performed By: #### V ITAD, IRON #### [facility] [address] [place] [address] Dr. Chucho Jesus Bilirubin [Mass/Vol] 1.0 mg/dL Normal 0.2-1.0 [facility] Comment on above: Performed By: #### V ITAD, IRON #### [facility] [address] [place] [address] Dr. Chucho Jesus Calcium [Mass/Vol] 9.4 mg/dL Normal 8.5-10.1 [facility] Comment on above: Performed By: #### V ITAD, IRON #### [facility] [address] [place] [address] Dr. Chucho Jesus Chloride [Moles/Vol] 103 mmol/L Normal 98-107 [facility] Comment on above: Performed By: #### V ITAD, IRON #### [facility] [address] [place] [address] Dr. Chucho Jesus CO2 [Moles/Vol] 24.9 mmol/L Normal 21.0-32.0 [facility] Comment on above: Performed By: #### V ITAD, IRON #### [facility] [address] [place] [address] Dr. Chucho Jesus Creatinine [Mass/Vol] 0.68 mg/dL Normal 0.55-1.02 [facility] Comment on above: Performed By: #### V ITAD, IRON #### [facility] [address] [place] [address] Dr. Chucho Jesus EGFR-AF CYPRIOT >60 Normal >=60 [facility] Comment on above: Performed By: #### V ITAD, IRON #### [facility] [address] [place] [address] Dr. Chucho Jesus EGFR-NON AF CYPRIOT >60 Normal >=60 [facility] Comment on above: Performed By: #### V ITAD, IRON #### [facility] [address] [place] [address] Dr. Chucho Jesus Globulin (S) [Mass/Vol] 3.9 g/dL Normal [facility] Comment on above: Performed By: #### V ITAD, IRON #### [facility] [address] [place] [address] Dr. Chucho Jesus Glucose [Mass/Vol] 89 mg/dL Normal 74-106 [facility] Comment on above: Performed By: #### V ITSONIYA, IRON #### [facility] [address] [address] [address] Chucho Jesus Potassium [Moles/Vol] 4.2 mmol/L Normal 3.5-5.1 [facility] Comment on above: Performed By: #### V ITAD, IRON #### [facility] [address] [place] [address] Dr. Chucho Jesus Protein [Mass/Vol] 8.1 g/dL Normal 6.4-8.2 [facility] Comment on above: Performed By: #### V AMAURY, IRON #### [facility] [address] [place] [address] Dr. Chucho Jesus Sodium [Moles/Vol] 138 mmol/L Normal 136-145 [facility] Comment on above: Performed By: #### V AMAURY, IRON #### [facility] [address] [place] [address] Dr. Chucho Jesus Urea nitrogen [Mass/Vol] 9.0 mg/dL Normal 7.0-18.0 [facility] Comment on above: Performed By: #### V AMAURY, IRON #### [facility] [address] [place] [address] Dr. Chucho Jesus Urea nitrogen/Creatinine [Mass ratio] 13.2 mg/mg Normal [facility] Comment on above: Performed By: #### V AMAURY, IRON #### [facility] [address] [place] [address] Dr. Chucho Jesus TSHon 11-07-2022 TSH 1.668 uIU/mL Normal 0.358-3.740 [facility] Comment on above: Performed By: #### V ITSONIYA, IRON #### [facility] [address] [place] [address] Dr. Chucho Jesus Covid-19 PCR (CVDTB)on SARS-CoV-2 (COVID-19) RNA DMITRY+probe Ql (Unsp spec) Not detected Normal NOT DETECTED [facility] Comment on above: Result Comment: When [...] for this test is supported by the [place] of Health and Human Service's declaration that [...] Performed By: #### V ITAD, IRON #### [facility] [address] [place] [address] Dr. Chucho Jesus Covid-19 PCR (CVDTB)on SARS-CoV-2 (COVID-19) RNA DMITRY+probe Ql (Unsp spec) Not detected Normal NOT DETECTED [facility] Comment on above: Result Comment: When [...] for this test is supported by the [place] of Health and Human Service's declaration that [...] used). Performed By: #### C VDTBH #### [facility] [address] [place] [address] Dr. Chucho Jesus INFLUENZA A AND B AGon 08-11 [facility] SEE BELOW Normal [facility] Comment on above: Result Comment: Nega tive for Flu A protein angiten. Infection due to Flu A cannot be ruled out. Flu A angiten in the sample may be below the detection limit of the test. Performed By: #### I NFLUAB #### [facility] [address] [place] [address] Dr. Chucho Jesus INFLUBNEG SEE BELOW Normal [facility] Comment on above: Result Comment: Nega tive for Flu B protein antigen. Infection due to Flu B cannot be ruled out. Flu B antigen in the sample may be below the detection limit of the test. Performed By: #### I NFLUAB #### [facility] [address] [place] [address] Dr. Chucho Jesus INFLUENZA A AG Negative Normal NEGATIVE SEE COMMENT [facility] Comment on above: Performed By: #### I NFLUAB #### [facility] [address] [place] [address] Dr. Chucho Jesus INFLUENZA B AG Negative Normal NEGATIVE SEE COMMENT [facility] Comment on above: Performed By: #### I NFLUAB #### [facility] [address] [place] [address] Dr. Chucho Jesus [facility]07 SARS-CoV-2 (COVID-19) RNA DMITRY+probe Ql (Unsp spec) Not detected Normal NOT DETECTED [facility] Comment on above: Result Comment: When [...] for this test is supported by the [place] of [employer] and Human Service's declaration that [...] Performed By: #### V ITAD, IRON #### [facility] [address] [place] [address] Dr. Chucho Jesus INFLUENZA A AND B AGon 05-26 [facility] SEE BELOW Normal [facility] Comment on above: Result Comment: Nega tive for Flu A protein angiten. Infection due to Flu A cannot be ruled out. Flu A angiten in the sample may be below the detection limit of the test. Performed By: #### V ITAD, IRON #### [facility] [address] [place] [address] Dr. Chucho Jesus INFLUBNEGH SEE BELOW Normal [facility] Comment on above: Result Comment: Nega tive for Flu B protein antigen. Infection due to Flu B cannot be ruled out. Flu B antigen in the sample may be below the detection limit of the test. Performed By: #### V ITAD, IRON #### [facility] [address] [place] [address] Dr. Chucho Jesus INFLUENZA A AG Negative Normal NEGATIVE SEE COMMENT [facility] Comment on above: Performed By: #### V ITAD, IRON #### [facility] [address] [place] [address] Dr. Chucho Jesus INFLUENZA B AG Negative Normal NEGATIVE SEE COMMENT [facility] Comment on above: Performed By: #### V ITAD, IRON #### [facility] [address] [place] [address] Dr. Chucho Jesus INTERNAL CONTROLS Within Normal Limits Normal Wi thin Normal Limits [facility] Comment on above: Performed By: #### V ITAD, IRON #### [facility] [address] [place] [address] Dr. Chucho Jesus ER URINE PROFILEon 2 Bilirubin Ql (U) Negative Normal NEGATIVE [facility] Comment on above: Performed By: #### V ITAD, IRON #### [facility] [address] [address] [address] Chucho Jesus Clarity (U) CLEAR Normal CLEAR [facility] Comment on above: Performed By: #### V ITAD, IRON #### [facility] [address] [place] [address] Dr. Chucho Jesus Color (U) YELLOW Normal YELLOW [facility] Comment on above: Performed By: #### V ITAD, IRON #### [facility] [address] [place] [address] Dr. Chucho BAHENA A micrscopic examination will be performed if indicated. Normal [facility] Comment on above: Performed By: #### V ITAD, IRON #### [facility] [address] [place] [address] Dr. Chucho Jesus Glucose Ql (U) Negative Normal NEGATIVE [facility] Comment on above: Performed By: #### V ITAD, IRON #### [facility] [address] [place] [address] Dr. Chucho Jesus Hemoglobin Ql (U) Negative Normal NEGATIVE [facility] Comment on above: Performed By: #### V ITAD, IRON #### [facility] [address] [place] [address] Dr. Chucho Jesus Ketones Ql (U) >=80 Abnormal NEGATIVE [facility] Comment on above: Performed By: #### V ITAD, IRON #### [facility] [address] [place] [address] Dr. Chucho Jesus LEUKOCYTES Negative Normal NEGATIVE [facility] Comment on above: Performed By: #### V ITAD, IRON #### [facility] [address] [place] [address] Dr. Chucho Jesus Nitrite Ql (U) Negative Normal NEGATIVE [facility] Comment on above: Performed By: #### V ITAD, IRON #### [facility] [address] [place] [address] Dr. Chucho Jesus pH (U) 6.0 [pH] Normal 5-9 [facility] Comment on above: Performed By: #### V ITAD, IRON #### [facility] [address] [address] [address] Chucho Jesus Protein (U) [Mass/Vol] 100 mg/dL Abnormal NEGATIVE/ TRACE [facility] Comment on above: Performed By: #### V ITAD, IRON #### [facility] [address] [address] [address] Chucho Jesus SPEC GRAVITY >=1.030 Abnormal 1.005-<=1.025 [facility] Comment on above: Performed By: #### V ITAD, IRON #### [facility] [address] [address] [address] Chucho Jesus UR MICRO IND INDICATED Normal [facility] Comment on above: Performed By: #### V ITAD, IRON #### [facility] [address] [address] [address] Chucho Jesus Urobilinogen Qn (U) 0.2 {Chelsea'U}/dL Normal 0.2 - 1. 0 [facility] Comment on above: Performed By: #### V ITAD, IRON #### [facility] [address] [address] [address] Chucho Jesus URon 05-22-2022 , QUAL Negative Normal NEGATIVE [facility] Comment on above: Performed By: #### V ITAD, IRON #### [facility] [address] [address] [address] Chucho Jesus URINE MICROSCOPIC ONLYon BACTERIA NONE SEEN Normal NONE SEEN [facility] Comment on above: Performed By: #### V ITAD, IRON #### [facility] [address] [address] [address] Chucho Jesus Bacteria identified Cx Nom (U) NOT INDICATED Normal [facility] Comment on above: Performed By: #### V ITAD, IRON #### [facility] [address] [address] [address] Chucho Jesus CAST NONE SEEN Normal NONE SEEN [facility] Comment on above: Performed By: #### V ITAD, IRON #### [facility] [address] [address] [address] Chucho Jesus Crystals LM Nom (Urine sed) NONE SEEN Normal NONE SEEN [facility] Comment on above: Performed By: #### V ITAD, IRON #### [facility] [address] [place] [address] Dr. Chucho Jesus Epithelial cells LM Ql (Urine sed) FEW Abnormal NONE SEEN /RARE [facility] Comment on above: Performed By: #### V ITAD, IRON #### [facility] [address] [place] [address] Dr. Chucho Jesus MUCOUS MODERATE Abnormal NONE SEEN [facility] Comment on above: Performed By: #### V ITAD, IRON #### [facility] [address] [place] [address] Dr. Chucho Jesus RBC NONE SEEN Abnormal 0-2 [facility] Comment on above: Performed By: #### V ITAD, IRON #### [facility] [address] [place] [address] Dr. Chucho Jesus WBC NONE SEEN Normal NONE SEEN [facility] Comment on above: Performed By: #### V ITAD, IRON #### [facility] [address] [place] [address] Dr. Chucho Jesus XR LSPINE 2_3 VIEWSon [...] MARCO CAMPOS Date: 2022-05-22 12:28 Normal [facility] INSULINon 04-25-2022 Insulin 10.4 uIU/mL Normal 2.6-24.9 [facility] Comment on above: Performed By: #### V ITAD, IRON #### [facility] [address] [address] [address] Chucho Jesus CBC AUTO DIFFon 04-24-2022 BASO # 0.0 103/ul Normal 0.0-0.1 [facility] Comment on above: Performed By: #### C BC #### [facility] [address] [address] [address] Chucho Jesus Basophils/100 WBC (Bld) 0.6 % Normal 0.2-2.0 [facility] Comment on above: Performed By: #### C BC #### [facility] [address] [address] [address] Chucho Jesus EO # 0.1 103/ul Normal 0.0-0.7 [facility] Comment on above: Performed By: #### C BC #### [facility] [address] [place] [address] Dr. Chucho Jesus Eosinophils/100 WBC (Bld) 1.8 % Normal 0.9-7.0 [facility] Comment on above: Performed By: #### C BC #### [facility] [address] [address] [address] Chucho Jesus Erythrocyte distribution width (RBC) [Ratio] 12.9 % Normal 11.0-15.0 [facility] Comment on above: Performed By: #### C BC #### [facility] [address] [place] [address] Dr. Chucho Jesus Hematocrit (Bld) [Volume fraction] 45.6 % Normal 36.0-48.0 [facility] Comment on above: Performed By: #### C BC #### [facility] [address] [address] [address] Chucho Jesus Hemoglobin (Bld) [Mass/Vol] 14.7 g/dL Normal 12.0-16.0 [facility] Comment on above: Performed By: #### C BC #### [facility] [address] [address] [address] Chucho Jesus IG # 0.02 10e3/ul Normal 0.00-0.03 [facility] Comment on above: Performed By: #### C BC #### [facility] [address] [place] [address] Dr. Chucho Jesus IG % 0.3 % Normal 0.0-0.5 [facility] Comment on above: Performed By: #### C BC #### [facility] [address] [place] [address] Dr. Chucho Jesus LYMPH # 1.6 103/ul Normal 1.2-3.8 [facility] Comment on above: Performed By: #### C BC #### [facility] [address] [place] [address] Dr. Chucho Jesus Lymphocytes/100 WBC (Bld) 24.5 % Normal 20.5-60.0 [facility] Comment on above: Performed By: #### C BC #### [facility] [address] [place] [address] Dr. Chucho Jesus MANUAL DIFF REQ NO Normal [facility] Comment on above: Performed By: #### C BC #### [facility] [address] [place] [address] Dr. Chucho Jesus MCH (RBC) [Entitic mass] 28.4 pg Normal 26.7-34.0 [facility] Comment on above: Performed By: #### C BC #### [facility] [address] [place] [address] Dr. Chucho Jesus MCHC (RBC) [Mass/Vol] 32.2 g/dL Normal 29.9-35.2 [facility] Comment on above: Performed By: #### C BC #### [facility] [address] [place] [address] Dr. Chucho Jesus MCV (RBC) [Entitic vol] 88.2 fL Normal 81.0-99.0 [facility] Comment on above: Performed By: #### C BC #### [facility] [address] [place] [address] Dr. Chucho Jesus MONO # 0.5 103/ul Normal 0.3-0.8 [facility] Comment on above: Performed By: #### C BC #### [facility] [address] [place] [address] Dr. Chucho Jesus Monocytes/100 WBC (Bld) 7.4 % Normal 1.7-12.0 [facility] Comment on above: Performed By: #### C BC #### [facility] [address] [place] [address] Dr. Chucho Jesus NEUT # 4.4 103/ul Normal 1.4-6.5 [facility] Comment on above: Performed By: #### C BC #### [facility] [address] [place] [address] Dr. Chucho Jesus Neutrophils/100 WBC (Bld) 65.4 % Normal 43.0-75.0 [facility] Comment on above: Performed By: #### C BC #### [facility] [address] [place] [address] Dr. Chucho Jesus Platelet mean volume (Bld) [Entitic vol] 9.9 fL Normal 9.5-13.5 [facility] Comment on above: Performed By: #### C BC #### [facility] [address] [place] [address] Dr. Chucho Jesus PLT 225 103/ul Normal 150-450 [facility] Comment on above: Performed By: #### C BC #### [facility] [address] [place] [address] Dr. Chucho Jesus RBC 5.17 106/ul Normal 4.20-5.40 [facility] Comment on above: Performed By: #### C BC #### [facility] [address] [place] [address] Dr. Chucho Jesus WBC 6.7 103/ul Normal 4.0-11.0 [facility] Comment on above: Performed By: #### C BC #### [facility] [address] [place] [address] Dr. Chucho Jesus FREE THYROXINE INDEX T7on FTI 3.29 Normal 1.30-4.50 [facility] Comment on above: Performed By: #### T 7, TSH, LIPID, CMP #### [facility] [address] [address] [address] Chucho Jesus T3U 27.0 % Critically low 30.0-39.0 [facility] Comment on above: Performed By: #### T 7, TSH, LIPID, CMP #### [facility] [address] [address] [address] Chucho Jesus T4 [Mass/Vol] 12.20 ug/dL Normal 4.80-13.90 [facility] Comment on above: Performed By: #### T 7, TSH, LIPID, CMP #### [facility] [address] [address] [address] Chucho Jesus GLYCOHEMOGLOBIN A1Con 2021 ADA RECOMMENDATION SEE BELOW Normal [facility] Comment on above: Result Comment: ADA RECOMMENDED LIMIT 4.0 - 6.0 ADA THERAPEUTIC TARGET < 7.0 ACTION SUGGESTED > 7.0 Performed By: #### A 1C #### [facility] [address] [place] [address] Dr. Chucho Jesus Glucose [Mass/Vol] 105 mg/dL Normal [facility] Comment on above: Performed By: #### A 1C #### [facility] [address] [address] [address] Chucho Jesus HbA1c (Bld) [Mass fraction] 5.3 % Normal 4.5-6.2 [facility] Comment on above: Performed By: #### A 1C #### [facility] [address] [place] [address] Dr. Chucho Jesus IRONon 04-24-2022 Iron [Mass/Vol] 48.0 ug/dL Critically low 50.0-170.0 [facility] Comment on above: Performed By: #### V ITAD, IRON #### [facility] [address] [place] [address] Dr. Chucho Jesus LIPID PROFILEon 04-24-2022 CHOL-HDL RATIO NORM SEE BELOW Normal [facility] Comment on above: Result Comment: 3.3 - 4.4 LOW RISK 4.4 - 7.1 AVERAGE RISK 7.1 - 11.0 MODERATE RISK >11.0 HIGH RISK Performed By: #### V ITAD, IRON #### [facility] [address] [address] [address] Chucho Jesus Cholesterol [Mass/Vol] 184 mg/dL Normal <=200 [facility] Comment on above: Performed By: #### V ITAD, IRON #### [facility] [address] [address] [address] Chucho Jesus Cholesterol in HDL [Mass/Vol] 55 mg/dL Normal 40-60 [facility] Comment on above: Performed By: #### V ITAD, IRON #### [facility] [address] [address] [address] Chucho Jesus Cholesterol in LDL [Mass/Vol] 116.6 mg/dL Normal [facility] Comment on above: Performed By: #### V ITAD, IRON #### [facility] [address] [place] [address] Dr. Chucho Jesus Cholesterol.total/C holesterol in HDL [Mass ratio] 3.3 {ratio} Normal [facility] Comment on above: Performed By: #### V ITAD, IRON #### [facility] [address] [address] [address] Chucho Jesus HDL NORMAL > or = 60 mg/dl - LO W CARDIOVASCULAR RISK <40 mg/dl - HIGH CARDIOVASCULAR RISK Normal [facility] Comment on above: Performed By: #### V ITAD, IRON #### [facility] [address] [address] [address] Chucho Jesus LDL CALC NORMAL SEE BELOW Normal [facility] Comment on above: Result Comment: <100 mg/dl OPTIMAL 100 - 129 mg/dl NEAR OR ABOVE OPTIMAL 130 - 159 mg/dl BORDERLINE HIGH 160 - 189 mg/dl HIGH >190 mg/dl VERY HIGH Performed By: #### V ITAD, IRON #### [facility] [address] [address] [address] Chucho Jesus Triglyceride [Mass/Vol] 62 mg/dL Normal <=150 [facility] Comment on above: Performed By: #### V ITAD, IRON #### [facility] [address] [address] [address] Chucho Jesus VLDL CALC 12.4 mg/dL Normal [facility] Comment on above: Performed By: #### V ITAD, IRON #### [facility] [address] [address] [address] Chucho Jesus PROF 14(COMP METB)on 04-24- 022 Albumin [Mass/Vol] 3.7 g/dL Normal 3.4-5.0 [facility] Comment on above: Performed By: #### T 7, TSH, LIPID, CMP #### [facility] [address] [address] [address] Chucho Jesus Albumin/Globulin [Mass ratio] 0.9 {ratio} Normal [facility] Comment on above: Performed By: #### T 7, TSH, LIPID, CMP #### [facility] [address] [place] [address] Dr. Chucho Jesus ALP [Catalytic activity/Vol] 74 U/L Normal 46-116 [facility] Comment on above: Performed By: #### T 7, TSH, LIPID, CMP #### [facility] [address] [address] [address] Cuhcho Jesus ALT [Catalytic activity/Vol] 16 U/L Normal 14-59 [facility] Comment on above: Performed By: #### T 7, TSH, LIPID, CMP #### [facility] [address] [address] [address] Chucho Jesus Anion gap [Moles/Vol] 12.3 mmol/L Normal [facility] Comment on above: Performed By: #### T 7, TSH, LIPID, CMP #### [facility] [address] [address] [address] Chucho Jesus AST [Catalytic activity/Vol] 13 U/L Critically low 15-37 [facility] Comment on above: Performed By: #### T 7, TSH, LIPID, CMP #### [facility] [address] [address] [address] Chucho Jesus Bilirubin [Mass/Vol] 0.4 mg/dL Normal 0.2-1.0 [facility] Comment on above: Performed By: #### T 7, TSH, LIPID, CMP #### [facility] [address] [address] [address] Chucho Jesus Calcium [Mass/Vol] 8.9 mg/dL Normal 8.5-10.1 [facility] Comment on above: Performed By: #### T 7, TSH, LIPID, CMP #### [facility] [address] [place] [address] Dr. Chucho Jesus Chloride [Moles/Vol] 105 mmol/L Normal 98-107 [facility] Comment on above: Performed By: #### T 7, TSH, LIPID, CMP #### [facility] [address] [place] [address] Dr. Chucho Jesus CO2 [Moles/Vol] 26.6 mmol/L Normal 21.0-32.0 [facility] Comment on above: Performed By: #### T 7, TSH, LIPID, CMP #### [facility] [address] [place] [address] Dr. Chucho Jesus Creatinine [Mass/Vol] 0.68 mg/dL Normal 0.55-1.02 [facility] Comment on above: Performed By: #### T 7, TSH, LIPID, CMP #### [facility] [address] [place] [address] Dr. Chucho Jesus EGFR-AF CYPRIOT >60 Normal >=60 [facility] Comment on above: Performed By: #### T 7, TSH, LIPID, CMP #### [facility] [address] [place] [address] Dr. Chucho Jesus EGFR-NON AF CYPRIOT >60 Normal >=60 [facility] Comment on above: Performed By: #### T 7, TSH, LIPID, CMP #### [facility] [address] [place] [address] Dr. Chucho Jesus Globulin (S) [Mass/Vol] 4.3 g/dL Normal [facility] Comment on above: Performed By: #### T 7, TSH, LIPID, CMP #### [facility] [address] [place] [address] Dr. Chucho Jesus Glucose [Mass/Vol] 87 mg/dL Normal 74-106 [facility] Comment on above: Performed By: #### T 7, TSH, LIPID, CMP #### [facility] [address] [place] [address] Dr. Chucho Jesus Potassium [Moles/Vol] 3.9 mmol/L Normal 3.5-5.1 [facility] Comment on above: Performed By: #### T 7, TSH, LIPID, CMP #### [facility] [address] [place] [address] Dr. Chucho Jesus Protein [Mass/Vol] 8.0 g/dL Normal 6.4-8.2 [facility] Comment on above: Performed By: #### T 7, TSH, LIPID, CMP #### [facility] [address] [place] [address] Dr. Chucho Jesus Sodium [Moles/Vol] 140 mmol/L Normal 136-145 [facility] Comment on above: Performed By: #### T 7, TSH, LIPID, CMP #### [facility] [address] [place] [address] Dr. Chucho Jesus Urea nitrogen [Mass/Vol] 9.0 mg/dL Normal 7.0-18.0 [facility] Comment on above: Performed By: #### T 7, TSH, LIPID, CMP #### [facility] [address] [place] [address] Dr. Chucho Jesus Urea nitrogen/Creatinine [Mass ratio] 13.2 mg/mg Normal [facility] Comment on above: Performed By: #### T 7, TSH, LIPID, CMP #### [facility] [address] [place] [address] Dr. Chucho Jesus TSHon 04-24-2022 TSH 1.127 uIU/mL Normal 0.358-3.740 [facility] Comment on above: Performed By: #### T 7, TSH, LIPID, CMP #### [facility] [address] [place] [address] Dr. Chucho Jesus VITAMIN D 25 OHon 04-24-2022 VIT D 25-OH 35.2 ng/mL Normal [facility] Comment on above: Performed By: #### V ITAD, IRON #### [facility] [address] [place], [place] [address] Dr. Chucho Jesus VIT D RANGES SEE BELOW Normal [facility] Comment on above: Result Comment: <20 ng/mL Vit D deficient 20 - <30 ng/mL Vit D insufficient 30 - 100 ng/mL Vit D sufficient >100 ng/mL Potential Toxicity Performed By: #### V ITAD, IRON #### [facility] [address] [place], [place] [address] Dr. Chucho Jesus HCG ( test) Ql (U)O rdered By: James Churchill on 12-05-2020 Internal Control Pass [facility] Interpretation and review of laboratory results Normal [facility] POC , UrineOrdered By: James Churchill on 12-05-2020 HCG ( test) Ql (U) Negative Negative [facility] CTA CHEST WITH CONTRASTon CTA CHEST [...] by:Ady Tran MD03/25/17Edited Result - FINAL Normal [facility] Basic Metabolic Profon 02-19 (cont.) Normal [facility] Comment on above: Result Comment: Aver age GFR for 20-29 years old: 116 mL/min/1.73sq mChronic Kidney Disease: <60 mL/min/1.73sq mKidney failure: <15 mL/min/1.73sq meGFR calculated using average adult body mass. Additional eGFR calculator available at:http://www.[employer]/multiple_crcl_2012.htm Performed By: #### C DP, BMP, TROPI ####[address] [place] [address] Anion gap 14 mmol/L Normal 03-22 [facility] Comment on above: Performed By: #### C DP, BMP, TROPI ####[address] [place] [address] BUN/CRE Ratio 13 Normal - [facility] Comment on above: Performed By: #### C DP, BMP, TROPI ####[address] [place] [address] Calcium 9.2 mg/dL Normal 8.6-10.4 [facility] Comment on above: Performed By: #### C DP, BMP, TROPI ####[address] [place] [address] Chloride 105 mmol/L Normal 98-107 [facility] Comment on above: Performed By: #### C DP, BMP, TROPI ####[address] [place] [address] CO2 23 mmol/L Normal 20- [facility] Comment on above: Performed By: #### C DP, BMP, TROPI ####[address] [place] [address] Creatinine 0.55 mg/dL Normal 0.50-0.90 [facility] Comment on above: Performed By: #### C DP, BMP, TROPI ####[address] [place] [address] eGFR (non-black) mL/min/{1.73_m2} Normal >60 [facility] Comment on above: Performed By: #### C DP, BMP, TROPI ####[address] [place] [address] Glucose mass conc 96 mg/dL Normal 70-99 [facility] Comment on above: Performed By: #### C DP, BMP, TROPI ####[address] [place] [address] Potassium molar conc 3.6 mmol/L Low 3.7-5.3 [facility] Comment on above: Performed By: #### C DP, BMP, TROPI ####[address] [place] [address] Sodium 142 mmol/L Normal 135-144 [facility] Comment on above: Performed By: #### C DP, BMP, TROPI ####[address] [place] [address] Staging: Normal [facility] Comment on above: Result Comment: Stag e 1: Some kidney damage normal GFRStage 2: Mild kidney damage GFR 60-89Stage 3: Moderate kidney damage GFR 30-59Stage 4: Severe kidney damage GFR 15-29Stage 5: Severe kidney damage GFR <15ESRD - chronic treatment by dialysis or transplantPerformed at [address] [place] [address] Performed By: #### C DP, BMP, TROPI ####[address] [place] [address] Urea nitrogen 7 mg/dL Normal 6-20 [facility] Comment on above: Performed By: #### C DP, BMP, TROPI ####[address] [place] [address] CBC with Diffon 02-19-2017 Abs. Basophil 0.00 k/uL Normal 0.0-0.2 [facility] Comment on above: Result Comment: Perf ormed at [address] [place] [address] Performed By: #### C DP, BMP, TROPI ####[address] [place] [address] Abs.Neutrophil (Seg) 7.10 k/uL Normal 1.8-8.0 [facility] Comment on above: Performed By: #### C DP, BMP, TROPI ####[address] [place] [address] Basophils/100 WBC Auto (Bld) 0 % Normal [facility] Comment on above: Performed By: #### C DP, BMP, TROPI ####[address] [place] [address] Eosinophils 0.30 10*3/uL Normal 0.0-0.4 [facility] Comment on above: Performed By: #### C DP, BMP, TROPI ####[address] [place] [address] Eosinophils/100 leukocytes 3 % Normal [facility] Comment on above: Performed By: #### C DP, BMP, TROPI ####[address] [place] [address] Erythrocyte distribution width Auto Ratio (RBC) 13.6 % Normal 12.1-15.2 [facility] Comment on above: Performed By: #### C DP, BMP, TROPI ####[address] [place] [address] Erythrocytes (RBC) 5.03 10*6/uL Normal 4.0-5.2 [facility] Comment on above: Performed By: #### C DP, BMP, TROPI ####[address] [place] [address] Hematocrit (HCT) 40.2 % Normal 36-46 [facility] Comment on above: Performed By: #### C DP, BMP, TROPI ####[address] [place] [address] Hemoglobin mass conc (Bld) 13.2 g/dL Normal 12.0-16.0 [facility] Comment on above: Performed By: #### C DP, BMP, TROPI ####[address] [place] [address] Lymphocytes 2.90 10*3/uL Normal 1.2-5.2 [facility] Comment on above: Performed By: #### C DP, BMP, TROPI ####[address] [place] [address] Lymphocytes/100 leukocytes 27 % Normal [facility] Comment on above: Performed By: #### C DP, BMP, TROPI ####[address] [place] [address] MCH 26.2 pg Normal 26-34 [facility] Comment on above: Performed By: #### C DP, BMP, TROPI ####[address] [place] [address] MCHC mass conc (RBC) 32.8 g/dL Normal 31-37 [facility] Comment on above: Performed By: #### C DP, BMP, TROPI ####[address] [place] [address] MCV 79.9 fL Low 80-100 [facility] Comment on above: Performed By: #### C DP, BMP, TROPI ####[address] [place] [address] Monocytes 0.60 10*3/uL Normal 0.0-1.0 [facility] Comment on above: Performed By: #### C DP, BMP, TROPI ####[address] [place] [address] Monocytes/100 leukocytes 5 % Normal [facility] Comment on above: Performed By: #### C DP, BMP, TROPI ####[address] [place] [address] Neutrophil (Seg) 65 % Normal [facility] Comment on above: Performed By: #### C DP, BMP, TROPI ####[address] [place] [address] Platelet mean volume (PMV) 9.6 fL Normal 6.0-12.0 [facility] Comment on above: Performed By: #### C DP, BMP, TROPI ####[address] [place] [address] Platelets 278 10*3/uL Normal 140-450 [facility] Comment on above: Performed By: #### C DP, BMP, TROPI ####[address] [place] [address] WBC (Leukocytes) 10.8 10*3/uL Normal 4.5-13.5 [facility] Comment on above: Performed By: #### C DP, BMP, TROPI ####[address] [place] [address] Auto Diff Performed NOT REPORTED Normal [facility] Comment on above: Performed By: #### C DP, BMP, TROPI ####[address] [place] [address] Erythrocyte morphology NOT REPORTED Normal [facility] Comment on above: Performed By: #### C DP, BMP, TROPI ####[address] [place] [address] Platelets NOT REPORTED Normal [facility] Comment on above: Performed By: #### C DP, BMP, TROPI ####[address] , [place] [id number] WBC Morphology NOT REPORTED Normal [facility] Comment on above: Performed By: #### C DP, BMP, TROPI ####[address] [place] [address] ED Noteon 02-19-2017 HIM IP Note OR Voltage Regulator Assembler Normal [facility] ED Provider Noteon 7 HIM IP Note OR Voltage Regulator Assembler Normal [facility] Troponinon 02-19-2017 Troponin T.cardiac mass conc ug/L Normal <0.03 [facility] Comment on above: Result Comment: Trop onin T results cannot be compared to Troponin-I results. Performed By: #### C DP, BMP, TROPI ####[address] [place] [address] Troponin I.cardiac mass conc Normal [facility] Comment on above: Result Comment: Refe rence Range: <0.03 Within reference range. 0.03-0.09 Possible myocardial damage.Repeat at appropriate intervals to rule out chronic elevation. >= 0.10 Indicative of myocardial damage.Performed at [address] [place] [address] [phone] Performed By: #### C DP, BMP, TROPI ####[address] [place] [address] Vital Signs Date Time Vital Sign Value Performing Clinician Facility 02-27-2023 14:39-0400 Blood Pressure Location Gary [facility] 02-27-2023 14:39-0400 Diastolic blood pressure 66 mm[Hg] Gary MORR[facility] 02-27-2023 14:39-0400 Heart rate 70 /min Gary [facility]ORR[facility] 02-27-2023 14:39-0400 Respiratory rate 16 /min [facility]-27-2023 14:39-0400 Systolic blood pressure 106 mm[Hg] Gary N[facility] [place] 01-08-2022 08:09-0400 Body temperature 98.01 [degF] Queta Rice DO Work Phone: [employer] 01-08-2022 08:09-0400 Body weight 75.75 kg Queta Rice DO Work Phone: [facility] [employer] 01-08-2022 08:09-0400 Diastolic blood pressure 71 mm[Hg] Queta Rice DO Work Phone: [facility] [employer] 01-08-2022 08:09-0400 Heart rate 98 /min Queta Rice DO Work Phone: [employer] 01-08-2022 08:09-0400 Systolic blood pressure 112 mm[Hg] Queta Rice DO Work Phone: [employer] [employer] 12-10-2021 14:45-0400 Body height 166.37 cm Bret Vitalyeverardo Other [employer] Other 12-10-2021 14:45-0400 Body mass index (BMI) [Ratio] 26.55 kg/m2 Bret Vitalyeverardo Other [employer] Other 12-10-2021 14:45-0400 Body weight 73.48 kg Bret Long Other [employer] Other 12-10-2021 14:45-0400 Diastolic blood pressure 72 mm[Hg] Bret Long Other [employer] Other 12-10-2021 14:45-0400 Systolic blood pressure 103 mm[Hg] Bret Long Other [employer] Other 11-27-2021 14:01-0400 Body temperature 98.4 [degF] Queta Rice DO Work Phone: [facility] 11-27-2021 14:01-0400 Body weight 74.84 kg Queta Rice DO Work Phone: [facility] 11-27-2021 14:01-0400 Diastolic blood pressure 64 mm[Hg] Queta Rice DO Work Phone: [facility] 11-27-2021 14:01-0400 Heart rate 98 /min Queta Rice DO Work Phone: [facility] [facility] 11-27-2021 14:01-0400 Systolic blood pressure 121 mm[Hg] Queta Rice DO Work Phone: [facility] 12-05-2020 19:26-0400 Heart rate 106 /min James Breece PA-C Work Phone: [facility] 12-05-2020 19:25-0400 Body temperature 98.29 [degF] James Breece PA-C Work Phone: [facility] 12-05-2020 19:25-0400 Body weight 97.98 kg James Breece PA-C Work Phone: [facility] 12-05-2020 19:25-0400 Diastolic blood pressure 86 mm[Hg] James Breece PA-C Work Phone: [facility] 12-05-2020 19:25-0400 Respiratory rate 16 /min James Breece PA-C Work Phone: [facility] 12-05-2020 19:25-0400 SaO2% (BldA) [Mass fraction] 97 % James Breece PA-C Work Phone: [facility] 12-05-2020 19:25-0400 Systolic blood pressure 126 mm[Hg] James Breece PA-C Work Phone: [facility] Encounters Encounter Date Encounter Type Care [...] Nill/Said Pearl Start: 02-23-2023 ambulatory Alexandr Bourgeois Facility:[facility] Start: 02-05-2023 ambulatory Gary MORRIS Facility:[facility] [...] LEWIS . Facility:[facility]1 Start: 02-18-2022 ambulatory QUETA Huffman~[id number] [facility] Start: 02-12-2022 ambulatory QUETA JAMA M~[id number] [facility] Start: 02-12-2022 End: 02-12-2022 Telemedicine consultation with patient Queta Osorio DO Work Phone: [facility] Comment on above: Anxiety (Primary Dx) Start: 01-19-2022 Refill Luis Warren O Work Phone: [facility] Start: 01-19-2022 Refill Luis Warren O Work Phone: [facility] Start: 01-08-2022 End: 01-08-2022 ambulatory QUETA Huffman~[id number] DEVON OSORIO [facility] Start: 01-08-2022 End: 01-08-2022 Office outpatient visit 25 minutes uQeta Huffman Rice DO Work Phone: [facility] Comment on above: Anxiety (Primary Dx) ; Hypotension, unspecified hypotension type Start: 01-08-2022 End: 01-08-2022 Patient encounter procedure Queta Huffman Rice DO Work Phone: [facility] Start: 12-11-2021 End: 12-11-2021 ambulatory QUETA Huffman~[id number] [facility] Start: 12-10-2021 End: 12-10-2021 ambulatory Bret Long Other [employer] Other Start: 12-10-2021 Office outpatient ne w 45 minutes Bret Long [facility] Start: 11-27-2021 End: 11-27-2021 ambulatory QUETA Huffman~[id number] DEVON OSORIO [facility] Start: 11-27-2021 End: 11-27-2021 Office outpatient new 30 minutes Queta Huffman Rice DO Work Phone: [facility] Comment on above: Anxiety (Primary Dx) Start: 11-27-2021 End: 11-27-2021 Patient encounter procedure Queta Huffman Rice DO Work Phone: [facility] Start: 11-25-2021 Telephone encounter Dana Kinsey [facility] Start: 12-05-2020 End: 12-05-[address] [facility] Start: 12-05-2020 End: 12-05-2020 Office outpatient new 20 minutes James Churchill PA-C Work Phone: [facility] [place] Comment on above: Vaginal sore (Primar y Dx) Start: 02-19-2017 End: 02-19-2017 Emergency department patient visit [facility] Procedures Date Procedure Procedure Detail Performing [...] Adolescent depressio n screening assessment Depression Screening [facility] Start: 03-06-2022 Influenza vaccination T [facility] [address] Start: 02-07-2022 End: 02-07-2022 Patient encounter procedure 02/07/2022 Office Visit Family Medicine Queta Osorio DO [address] [place] [id number] [facility] Start: 12-19-2021 End: 12-19-2021 Patient encounter procedure 12/19/2021 Office Visit Family Queta Benton DO [address] [place] [id number] [facility] Start: 12-07-2021 COVID-19 Vaccine (3 - Booster for Moderna series) COVID-19 Vaccine (3 - Booster for Moderna series) [facility] Start: 11-27-2021 End: 11-27-2021 Patient encounter procedure 11/27/2021 Office Visit Family Medicine Queta Osorio, DO [address] [place] [address] [facility] [place] [facility] Start: 11-24-2021 Adolescent depressio n screening assessment Depression Screening [facility] Start: 11-24-2021 Hepatitis C screening Hepatitis C Sc reening [facility] Start: 11-24-2021 HIV screening HIV Screening [facility] Start: 11-24-2021 Social Influencers o f Health Screening Social Influencers of Health Screening [facility] Start: 03-06-2021 Influenza vaccination Sequenti al Influenza Vaccine (Season Ended) [facility] Start: 2017 Screening for malign ant neoplasm of cervix Cervical Cancer Screening: Pap Smear [facility] Start: 2015 DTaP,Tdap,and Td Vac cines (1 - Tdap) DTaP,Tdap,and Td Vaccines (1 - Tdap) [facility] Start: 2014 Hepatitis C screening Hepatitis C Sc reening [facility] Start: 2011 HIV screening HIV Screening [facility] Start: 2008 COVID-19 Vaccine (1) COVID-19 Vaccin e (1) [facility] Start: 2008 Depression screening using PHQ-9 (Patient Health Questionnaire 9) score Depression Screening (PHQ9) [facility] Start: 2007 HPV Vaccines (1 - 2- dose series) HPV Vaccines (1 - 2-dose series) [facility] Start: 2007 Vaccination for april n papillomavirus HPV Vaccines (1 - 2-dose series) [facility] Start: 2001 COVID-19 Vaccine (1) COVID-19 Vaccin e (1) [facility] Start: 1999 History and physical examination, annual for health maintenance Wellness Visit [facility] Start: 1996 Screening for Chlamy marilee trachomatis Chlamydia Screening [facility] Start: 1996 Screening for malign ant neoplasm of cervix Pap Smear [facility] Start: 1996 Tetanus vaccination Tetanus: Every 1 0yrs [facility] Chlamydia trachomati s rRNA assay Chlamydia/GC/Trichomonas Amplified RNA Microbiology Routine Vaginal sore Ordered: 12/05/2020 [facility] Comment on above: Ordered: 12/05/2020 HSV by PCR Superficial Site HSV by PCR Superficial Site Lab Routine Vaginal sore Ordered: 12/05/2020 [facility] Comment on above: Ordered: 12/05/2020 Neisseria gonorrhoea e nucleic acid detection Chlamydia/Gonorrhoeae Amplified RNA Microbiology Routine Vaginal sore Ordered: 12/05/2020 [facility] Comment on above: Ordered: 12/05/2020 Trichomonas vaginali s Amplified RNA Trichomonas vaginalis Amplified RNA Microbiology Routine Vaginal sore Ordered: 12/05/2020 [facility] Comment on above: Ordered: 12/05/2020 Immunizations Immunization Date Immunization Notes Care Provider Bj mcintosh 07-09-2021 SARS-CoV-2 (COVID-19 ) mRNA-1273 vaccine Gary MORRIS [facility] 06-08-2021 SARS-CoV-2 (COVID-19 ) mRNA-1273 vaccine Gary MORRIS [facility] Payers Date Payer Category Payer Medicaid [employer] [place] [id number] 2021-Present [address] [address] [place] [address] [id number] 2020 Medicaid [id number] 2016 Unknown [id number] 2013 Unknown [id number] 1996 Unknown [id number] 2.16.840.1.425742.3.579.2.903 1996 Unknown [id number] 2.16.840.1.541610.3.579.2.114 1996 Unknown [id number] 2.16.840.1.722817.3.579.2.1142 1996 Unknown [id number] 2.16.840.1.783842.3.579.2.1143 1996 Unknown [id number] 2.16.840.1.790198.3.579.2.1143 1996 Unknown [id number] 2.16.840.1.281520.3.579.2.1143 1996 Unknown [id number] 2.16.840.1.476456.3.579.2.593 1996 Unknown [id number] 2.16.840.1.807172.3.579.2.593 1996 Unknown [id number] 2.16.840.1.492140.3.579.2.593 1996 Unknown [id number] 2.16.840.1.205640.3.579.2.593 1996 Unknown [id number] 2.16.840.1.054487.3.579.2.593 1996 Unknown [id number] 2.16.840.1.538449.3.579.2.593 1996 Unknown [id number] 2.16.840.1.239837.3.579.2.593 1996 Unknown [id number] 2.16.840.1.152401.3.579.2.727 1996 Unknown [id number] 2.16.840.1.357375.3.579.2.1259 1996 Unknown [id number] 2.16.840.1.584996.3.579.2.1259 1996 Unknown [id number] 2.16.840.1.148521.3.579.2.1259 1960 Unknown [id number] 2.16.840.1.616797.3.579.2.727 1959 Medicaid [id number] 1959 Self-pay 1959 Unknown [id number] 1959 Unknown [id number] 1959 Unknown [id number] Unknown [id number] 2.16.840.1.406084.3.579.2.531 Social History Date Type Detail Facility Start: 12-05-2020 End: 02-27-2023 Tobacco smoking status NHIS Never smoker [facility] Start: 12-05-2020 End: 11-27-2021 Tobacco use and exposure Never used [facility] Start: 12-05-2020 Alcohol intake Current drinke r of alcohol (finding) [facility] Start: 12-05-2020 End: 11-27-2021 History SDOH Alcohol Frequency 1 [facility] Start: 12-05-2020 Alcohol Comment occ [facility] Start: 1996 [facility] Start: 11-17-2021 End: 02-12-2022 Exposure to SARS-CoV-2 (event) Not sure [facility] Tobacco smoking stat [facility] Tobacco smoking consumption unknown [facility] Start: 11-27-2021 End: 02-12-2022 Alcohol intake Lifetime non-drinker (finding) [facility] Start: 1996 Sex Assigned At Female T [facility] [address] Sex Assigned At [facility] Tobacco smoking status Never [facility] [place] Functional Status Date Assessment Result Facility 02-27-2023 Functional Status N/A [facility] [place] Clinical Notes 12-05-2020 to 02-27-2023 Queta Osorio, [...] with excisional biopsy under local anesthesia at [facility]; call with problems/questions. Follow-up No qualifying [...] Recorded SARS-CoV-2 (COVID-19) mRNA-1273 vaccine 06/08/2021 Recorded [facility] Comment on above: Result Comment: Elec [...] at later date. documented in this encounter [facility] 01-08-2022 History of Present illness [...] due to buspirone. documented in this encounter [facility] 12-10-2021 Evaluation note Encounter Date Diagnosis Assessment Notes Dec, Irritable bowel syndrome with diarrhea (ICD-10 - K58.0) Continue medications without change Dec, Epigastric pain (ICD-10 - R10.13) Dec, Chronic nausea (ICD-10 - R11.0) Dec, Family history of carcinoma in situ of anal canal (ICD-10 - Z84.89) Dec, Other Continue Cari kauffman Pt to call if symptoms worsen [employer] Other 05-25-2022 History of Present illness Narrative* Queta Huffman Devon, DO - 11/27/2021 2:00 PM EDT Subjective Patient ID: Leslie Ford is a 26 y.o. female. Chief Complaint Patient presents with [facility] 26 y.o. female presents to [facility]. History of anxiety and depression. Has been [...] it ( July 2017) [id number] History of Present illness Narrative* Dana Rosario [...] like me to do? documented in this [facility]06-02-2021 History of Present illness Narrative* James Churchill PA-C - 12/05/2020 8:22 PM EDT Images from the original note were not included. Patient Name: [facility] [address] Date Of : Date Of Visit: 1995 12/05/2020 MRN# Provider: [id number] James Churchill PA-C Chief Complaint Patient presents [...] urine from irritatingthe sores. ? Take an lloy-vrr-zpugxfo pain medicine, such as acetaminophen (Tylenol), ibuprofen [...] Log into your personal health record on [email or web address] and enter E579 in the Education box to learn more about Genital Herpes: Care Instructions. Current as of: August 31, 2019 Content Version: 12.8 [employer]. Care instructions adapted under license by your healthcare professional. If you have questions about a medical condition or this instruction, always ask your healthcare professional. [employer] disclaims any warranty or liability for your use of this information. documented in this [id number] Instructions* Patient Instructions* James Churchill PA-C - [...] urine from irritatingthe sores. ? Take an fkyr-osi-iieesux pain medicine, such as acetaminophen (Tylenol), ibuprofen [...] Log into your personal health record on [email or web address] and enter E579 in the Education box to learn more about Genital Herpes: Care Instructions. Current as of: August 31, 2019 Content Version: 12.8 [id number] [employer]. Care instructions adapted under license by your healthcare professional. If you have questions about a medical condition or this instruction, always ask your healthcare professional. [employer] disclaims any warranty or liability for your use of this information. documented in this [facility] + [facility] note No data available for this section [facility] [place] Evaluation note* Diagnosis Vaginal sore- Primary [facility] Diagnosis Anxiety- Primary Anxiety state, unspecified documented in this encounter [facility] note* Diagnosis Anxiety- Primary Anxiety state, unspecified Hypotension, unspecified hypotension type documented in this encounter [facility] note* Diagnosis Anxiety- Primary Anxiety state, unspecified documented in this encounter [facility] general Narrative - Reported* Type Description Date Medical History IBS [employer] Other Hospital Discharge instructions No data [...] FoundDocuments on File Type Date Recorded Patient Transcriptionist Expl anation Advance Directives and Living Will Documents on File Type Date Recorded Patient Transcriptionist Expl anation Power of Finishing Supervisor Additional Source Comments INFORMATION SOURCE (unrecogn ized section and content) DATE CREATED AUTHOR 12/30/2017 [facility] DATE CREATED AUTHOR AUTHOR'S ORGANIZ ATION 12/06/2020 [facility] DATE CREATED AUTHOR AUTHOR'S ORGANIZ ATION 02/16/2022 [facility] DATE CREATED AUTHOR AUTHOR'S ORGANIZ ATION 02/27/2022 [facility] DATE CREATED AUTHOR AUTHOR'S ORGANIZ ATION 11/14/2022 [facility] DATE CREATED AUTHOR AUTHOR'S ORGANIZ ATION 03/02/[address] [facility] DATE CREATED AUTHOR AUTHOR'S ORGANIZ ATION 07/05/2023 [facility] DATE CREATED AUTHOR AUTHOR'S ORGANIZ ATION 01/24/2024 [facility] dical Specialists EPIC Reason for Visit (unrecogniz [...] Care Teams (unrecognized sec tion and content) Major Assembly Inspector Relationship Specialty Start Date End Date Queta Osorio, [address] [place] [id number] PCP - General Family Medicine 11/27/21 Major Assembly Inspector Relationship Specialty Start Date End Date Queta Osorio, [address] [place] [id number] PCP - General Family Medicine 11/27/21 Major Assembly Inspector Relationship Specialty Start Date End Date Queta Osorio, [address] [place] [id number] PCP - General Family Medicine 11/27/21 [...] PRIMARY CLINICAL RECORDS. [facility] [employer] [facility]. provides no warranty or guarantee of the accuracy or completeness of information in this document.
== END 2024-02-15 20:45 | disposition home or self-care (01) ==
LOC: LAB 20:44
PROVIDERS: PCP Family Medicine; Visit Provider Physician Assistant
DX: Z01.419 Encounter for gynecological examination (general) (routine) without abnormal findings (principal)
CPT/HCPCS: 88175

== ENCOUNTER 2024-03-10 17:43 | Emergency (ER) | payer OTHER, SELFPAY ==
[2024-03-10 17:52] VITALS: BP 134/81; PULSE 107; TEMP 36.9; O2SAT 99; BMI 26.6
--- NOTE | 2024-03-10 17:56 | US_ITS ---
[address] [address] Patient Name: KISHAN RAMSEY MRN: [id number] date: 1995 Sex: F Assigned Patient Location: ER Current Patient Location: Accession/Order Number: [id number] Exam Date: 03/10/2024 19:10 Report Date: 03/10/2024 21:07 At the request of: RUBEN PRADO Procedure: US OB placenta Limited transabdominal OB AND TRANSVAGINAL CERVICAL ULTRASOUND, 03/10/2024 7:10 PM EDT COMPARISON: OB ultrasound, 01/01/2024 History:vaginal bleeding, 18 weeks Transabdominal OB FINDINGS: There is a single fetus in a cephalic presentation with longitudinal lie with cardiac activity on real-time sonography with a heart rate of 148 beats per minute. The placenta is located anterior with no placenta previa. Heterogeneous hypoechoic area within the placenta abutting the uterine wall measuring 5.1 x 3.5 x 4.9 cm with some internal color Doppler. The amniotic fluid grossly appears normal. Transvaginal cervical findings: The cervix is closed with a length of 3.9 cm. US/US OB placenta IMPRESSION: 1. Single live intrauterine in a cephalic presentation with longitudinal lie. 2. Placenta is located anteriorly with no placenta previa. There is a heterogeneous hypoechogenic area within the placenta abutting the uterine wall measuring 5.1 x 3.5 x 4.9 cm with some internal color Doppler raising possibility of a early placental hemorrhage/hematoma although unclear. Short interval follow-up ultrasound recommended. 3. The cervix is closed with a length of 3.9 cm. Electronically authenticated by: Susanne NEWTON Date: 03/10/2024 21:07
--- NOTE | 2024-03-10 17:56 | US_ITS ---
[address] [address] Patient Name: KISHAN RAMSEY MRN: [id number] date: 1995 Sex: F Assigned Patient Location: ER Current Patient Location: Accession/Order Number: [id number] Exam Date: 03/10/2024 19:10 Report Date: 03/10/2024 21:07 At the request of: RUBEN PRADO Procedure: US OB cervical length Limited transabdominal OB AND TRANSVAGINAL CERVICAL ULTRASOUND, 03/10/2024 7:10 PM EDT COMPARISON: OB ultrasound, 01/01/2024 History:vaginal bleeding, 18 weeks Transabdominal OB FINDINGS: There is a single fetus in a cephalic presentation with longitudinal lie with cardiac activity on real-time sonography with a heart rate of 148 beats per minute. The placenta is located anterior with no placenta previa. Heterogeneous hypoechoic area within the placenta abutting the uterine wall measuring 5.1 x 3.5 x 4.9 cm with some internal color Doppler. The amniotic fluid grossly appears normal. Transvaginal cervical findings: The cervix is closed with a length of 3.9 cm. US/US OB cervical length IMPRESSION: 1. Single live intrauterine in a cephalic presentation with longitudinal lie. 2. Placenta is located anteriorly with no placenta previa. There is a heterogeneous hypoechogenic area within the placenta abutting the uterine wall measuring 5.1 x 3.5 x 4.9 cm with some internal color Doppler raising possibility of a early placental hemorrhage/hematoma although unclear. Short interval follow-up ultrasound recommended. 3. The cervix is closed with a length of 3.9 cm. Electronically authenticated by: Susanne NEWTON Date: 03/10/2024 21:07
--- NOTE | 2024-03-10 17:56 | ED.GENADUL1 ---
HPI HPI - General Adult General Chief complaint: Abdominal Pain Stated complaint: VAGINAL BLEEDING 18 WKS Time Seen by Provider: 03/10/24 17:44 Source: patient and family Mode of arrival: walk-in Limitations: no limitations History of Present Illness HPI narrative: Patient is a 28-year-old female who presents to the emergency department for the evaluation of vaginal bleeding that she noticed with wiping only today. She is 18 weeks . She states she had intercourse with her significant other this morning. She is a A3. She has had no fevers, chills, nausea, vomiting. She has no abdominal pain or fluid leakage. No flank or back pain. No urinary symptoms. heart tones obtained at bedside by nursing on my evaluation initially Related Data Allergies Allergy/AdvReac Type Severity Reaction Status Date / Time No Known Drug Allergies Allergy Verified 03/10/24 18:00 Opioid HPI Opioid Management Most Recent Opioid Data: No Data to Display Review of Systems ROS Constitutional Denies: fever or chills Ears, nose, mouth, and throat Denies: throat pain or nasal congestion Cardiovascular Denies: chest pain Respiratory Denies: shortness of breath Gastrointestinal Denies: abdominal pain, nausea or vomiting Genitourinary Reports: vaginal bleeding; Denies: painful urination, pelvic pain or vaginal discharge Musculoskeletal Denies: back pain Hematologic/Lymphatic Denies: easy bruising or easy bleeding Exam Narrative Exam Narrative: Gen.: Awake, alert, in no distress Head: Normocephalic, atraumatic ENT: Moist mucous membranes Respiratory: No respiratory distress Gastrointestinal: Abdomen is soft, nondistended and nontender to palpation Extremities: Moves extremities equally Psych: Normal mood and affect Neuro: No focal neuro deficit Skin: Warm, dry, intact Constitutional Vital Signs, click to edit/add: Last Vital Signs Temp 98.5 F 03/10/24 17:52 Pulse 107 H 03/10/24 17:52 Resp 18 03/10/24 17:52 BP 134/81 03/10/24 17:52 Pulse Ox 99 03/10/24 17:52 O2 Del Method Room Air 03/10/24 17:52 Course Vital Signs Vital signs: Vital Signs Temperature 98.5 F 03/10/24 17:52 Pulse Rate 107 H 03/10/24 17:52 Respiratory Rate 18 03/10/24 17:52 Blood Pressure 134/81 03/10/24 17:52 Pulse Oximetry 99 03/10/24 17:52 Oxygen Delivery Method Room Air 03/10/24 17:52 Temperature 98.5 F 03/10/24 17:52 Pulse Rate 107 H 03/10/24 17:52 Respiratory Rate 18 03/10/24 17:52 Blood Pressure 134/81 03/10/24 17:52 Pulse Oximetry 99 03/10/24 17:52 Oxygen Delivery Method Room Air 03/10/24 17:52 Medical Decision Making MDM Narrative Medical decision making narrative: Urine specimen is unremarkable, ultrasound of the placenta and cervix shows that cervix is closed, heart rate is 148 and the patient has a 5 cm subchorionic hemorrhage. I discussed this with Dr. Smith and he will follow the patient up next week to discuss further maintenance of the area. Pelvic rest encouraged. Follow-up with BAND INSTRUMENT MAKER and return to the ER if symptoms change or worsen. Patient given education and reassurance. SUPERVISED APC VISIT, PHYSICIAN ATTESTATION: Based on the medical record the care appears appropriate. ? Medical Records Medical records reviewed: Yes I reviewed the patient's medical records Lab Data Labs: Lab Results 03/10/24 Range/Units 18:20 Urine Color Lt. yellow (YELLOW) Urine Clarity Clear (CLEAR) Urine pH 7.0 (5.0-9.0) Ur Specific [place] 1.015 (1.005-1.025) Urine Protein Negative (NEG/TRACE) mg/dL Urine Glucose (UA) Negative (NEGATIVE) mg/dL Urine Ketones Negative (NEGATIVE) mg/dL Urine Occult Blood Negative (NEGATIVE) Urine Nitrite Negative (NEGATIVE) Urine Bilirubin Negative (NEGATIVE) Urine Urobilinogen 0.2 (0.2-1.0) EU/dL Ur Leukocyte Esterase Negative (NEGATIVE) Discharge Plan Discharge Stand Alone Forms: Work/School Release, Portal Instructions Chief Complaint: Abdominal Pain Clinical Impression: Vaginal bleeding in , Subchorionic hemorrhage Patient Disposition: Home, Self-Care Time of Disposition Decision: 20:37 Condition: Good Print Language: Bahamian Instructions: Subchorionic Hemorrhage (ED) Referrals: Berto Smith DO [Physician] - As soon as possible Tong Beltran MD [Primary Care Provider] - 1 week
--- NOTE | 2024-03-10 18:25 | PC.NURSE ---
pt wiped around 1700 and had bright red blood on tissue. has h/o 4 miscarriages and 2 living children. heart tones obtained, 143.
--- OUTSIDE RECORDS SUMMARY | 2024-03-10 18:30 | XMS_ITS | CCD ---
Author Organization [facility] Care Team Providers Care Rock Crusher Name Role Phone KIM SUTHERLAND Unavailable Unavailable WILLY CONKLIN Unavailable Unavailable HOMAR LEWIS Unavailable Unavailable HOMAR LEWIS Unavailable Unavailable No, Physician Primary Care Provider Unavailabl e FINN, PHYSICIAN Primary Care Unavailable JAMES ALCAZAR Attending Unavailable Unavailable Primary Care Provider Unavailabl e Queta Osorio DO Primary Care Provider [phone] Bret Long Unavailable RICE RICE, QUETA QUETA M~[id number] Attending Unavailable RICE RICE, QUETA QUETA M~[id number] Primary Ca re Unavailable RICE RICE, QUETA QUETA M~[id number] Attending Unavailable RICE RICE, QUETA QUETA M~[id number] Primary Ca re Unavailable RICE RICE, QUETA QUETA M~[id number] Attending Unavailable RICE RICE, QUETA QUETA M~[id number] Primary Ca re Unavailable RICE RICE, QUETA QUETA M~[id number] Attending Unavailable RICE RICE, QUETA QUETA M~[id number] Primary Ca re Unavailable RICE RICE, QUETA QUETA M~[id number] Referring Unavailable RICE RICE, QUETA QUETA M~[id number] Primary Ca re Unavailable ITA REYES Admitting [...] CHRISTIE Attending Unavailable KATELYN DUVALL Attending Unavailable LOURDES CHRISTIE Attending Unavailable Allergies Allergy Classification Reported Allergen(s) Allergy Type Date of Onset Reaction(s) Facility (1 source) No Known Medication Allergies; Translations: [No Known Medication Allergies] Propensity to adverse reactions (disorder) [facility] Repository Medications Current Medications Medication Drug Class(es) [...] Interpretation Reference Range Facility Facesheeton 03-02-2023 Facesheet [id number]#1.00 CD:127 Normal [facility] Ambulatory Visit Summaryon 0 02-27-2023 Ambulatory Visit Summary LESLIE FORD :1995 Visit Date:02/27/2023 Ambulatory Visit Instructions Your Care Team Attending Physician - DOMINGO RANGEL, Gary Howell Primary Care Physician - BILL RIGGS, CLAUDE Mar This Is Your Medications List Contact prescribing [...] History of pre-eclampsia Insomnia Migraines Overweight Normal [facility] RAD - Ultrasound Reporton RAD - Ultrasound Report [id number]#[id number] D:127 Normal [facility] Physician Referralon 023 Physician Referral [id number] D:127 Normal [facility] INSULINon 11-08-2022 Insulin 7.7 uIU/mL Normal 2.6-24.9 [facility] Comment on above: Performed By: #### V ITAD, IRON #### [facility] [address] [place] [address] Dr. Chucho Jesus CBC AUTO DIFFon 11-07-2022 BASO # 0.0 103/ul Normal 0.0-0.1 [facility] Comment on above: Performed By: #### V ITAD, IRON #### [facility] [address] [place] [address] Dr. Chucho Jesus Basophils/100 WBC (Bld) 0.6 % Normal 0.2-2.0 [facility] Comment on above: Performed By: #### V ITAD, IRON #### [facility] [address] [place] [address] Dr. Chucho Jesus EO # 0.1 103/ul Normal 0.0-0.7 [facility] Comment on above: Performed By: #### V ITAD, IRON #### [facility] [address] [place] [address] Dr. Chucho Jesus Eosinophils/100 WBC (Bld) 1.4 % Normal 0.9-7.0 [facility] Comment on above: Performed By: #### V ITAD, IRON #### [facility] [address] [place] [address] Dr. Chucho Jesus Erythrocyte distribution width (RBC) [Ratio] 13.9 % Normal 11.0-15.0 [facility] Comment on above: Performed By: #### V ITAD, IRON #### [facility] [address] [place] [address] Dr. Chucho Jesus Hematocrit (Bld) [Volume fraction] 45.6 % Normal 36.0-48.0 [facility] Comment on above: Performed By: #### V ITAD, IRON #### [facility] [address] [place] [address] Dr. Chucho Jesus Hemoglobin (Bld) [Mass/Vol] 15.1 g/dL Normal 12.0-16.0 [facility] Comment on above: Performed By: #### V ITAD, IRON #### [facility] [address] [place] [address] Dr. Chucho Jesus IG # 0.01 10e3/ul Normal 0.00-0.03 [facility] Comment on above: Performed By: #### V ITAD, IRON #### [facility] [address] [place] [address] Dr. Chucho Jesus IG % 0.1 % Normal 0.0-0.5 [facility] Comment on above: Performed By: #### V ITAD, IRON #### [facility] [address] [address] [address] Chucho Jesus LYMPH # 1.9 103/ul Normal 1.2-3.8 [facility] Comment on above: Performed By: #### V ITAD, IRON #### [facility] [address] [place] [address] Dr. Chucho Jesus Lymphocytes/100 WBC (Bld) 26.3 % Normal 20.5-60.0 [facility] Comment on above: Performed By: #### V ITAD, IRON #### [facility] [address] [place] [address] Dr. Chucho Jesus MANUAL DIFF REQ NO Normal [facility] Comment on above: Performed By: #### V ITAD, IRON #### [facility] [address] [place] [address] Dr. Chucho Jesus MCH (RBC) [Entitic mass] 27.9 pg Normal 26.7-34.0 [facility] Comment on above: Performed By: #### V ITAD, IRON #### [facility] [address] [place] [address] Dr. Chucho Jesus MCHC (RBC) [Mass/Vol] 33.1 g/dL Normal 29.9-35.2 [facility] Comment on above: Performed By: #### V ITAD, IRON #### [facility] [address] [place] [address] Dr. Chucho Jesus MCV (RBC) [Entitic vol] 84.1 fL Normal 81.0-99.0 [facility] Comment on above: Performed By: #### V ITAD, IRON #### [facility] [address] [address] [address] Chucho Jesus MONO # 0.5 103/ul Normal 0.3-0.8 [facility] Comment on above: Performed By: #### V ITAD, IRON #### [facility] [address] [place] [address] Dr. Chucho Jesus Monocytes/100 WBC (Bld) 7.3 % Normal 1.7-12.0 [facility] Comment on above: Performed By: #### V ITAD, IRON #### [facility] [address] [place] [address] Dr. Chucho Jesus NEUT # 4.6 103/ul Normal 1.4-6.5 [facility] Comment on above: Performed By: #### V ITAD, IRON #### [facility] [address] [place] [address] Dr. Chucho Jesus Neutrophils/100 WBC (Bld) 64.3 % Normal 43.0-75.0 [facility] Comment on above: Performed By: #### V ITAD, IRON #### [facility] [address] [place] [address] Dr. Chucho Jesus Platelet mean volume (Bld) [Entitic vol] 10.9 fL Normal 9.5-13.5 [facility] Comment on above: Performed By: #### V ITAD, IRON #### [facility] [address] [place] [address] Dr. Chucho Jesus PLT 226 103/ul Normal 150-450 [facility] Comment on above: Performed By: #### V ITAD, IRON #### [facility] [address] [place] [address] Dr. Chucho Jesus RBC 5.42 106/ul Critically high 4.20-5.40 [facility] Comment on above: Performed By: #### V ITAD, IRON #### [facility] [address] [place] [address] Dr. Chucho Jesus WBC 7.2 103/ul Normal 4.0-11.0 [facility] Comment on above: Performed By: #### V ITAD, IRON #### [facility] [address] [place] [address] Dr. Chucho Jesus FREE THYROXINE INDEX T7on FTI 3.29 Normal 1.30-4.50 [facility] Comment on above: Performed By: #### V ITAD, IRON #### [facility] [address] [place] [address] Dr. Chucho Jesus T3U 35.0 % Normal 30.0-39.0 [facility] Comment on above: Performed By: #### V ITAD, IRON #### [facility] [address] [address] [address] Chucho Jesus T4 [Mass/Vol] 9.40 ug/dL Normal 4.80-13.90 [facility] Comment on above: Performed By: #### V ITAD, IRON #### [facility] [address] [place] [address] Dr. Chucho Jesus GLYCOHEMOGLOBIN A1Con 2022 ADA RECOMMENDATION SEE BELOW Normal [facility] Comment on above: Result Comment: ADA RECOMMENDED LIMIT 4.0 - 6.0 ADA THERAPEUTIC TARGET < 7.0 ACTION SUGGESTED > 7.0 Performed By: #### A 1C #### [facility] [address] [place] [address] Dr. Chucho Jesus Glucose [Mass/Vol] 94 mg/dL Normal [facility] Comment on above: Performed By: #### A 1C #### [facility] [address] [place] [address] Dr. Chucho Jesus HbA1c (Bld) [Mass fraction] 4.9 % Normal 4.5-6.2 [facility] Comment on above: Performed By: #### A 1C #### [facility] [address] [place] [address] Dr. Chucho Jesus IRONon 11-07-2022 Iron [Mass/Vol] 81.0 ug/dL Normal 50.0-170.0 [facility] Comment on above: Performed By: #### V ITAD, IRON #### [facility] [address] [place] [address] Dr. Chucho Jesus LIPID PROFILEon 11-07-2022 CHOL-HDL RATIO NORM SEE BELOW Normal [facility] Comment on above: Result Comment: 3.3 - 4.4 LOW RISK 4.4 - 7.1 AVERAGE RISK 7.1 - 11.0 MODERATE RISK >11.0 HIGH RISK Performed By: #### V ITAD, IRON #### [facility] [address] [address] [address] Chucho Jesus Cholesterol [Mass/Vol] 126 mg/dL Normal <=200 [facility] Comment on above: Performed By: #### V ITAD, IRON #### [facility] [address] [address] [address] Chucho Jesus Cholesterol in HDL [Mass/Vol] 38 mg/dL Critically low 40-60 [facility] Comment on above: Performed By: #### V ITAD, IRON #### [facility] [address] [address] [address] Chucho Jesus Cholesterol in LDL [Mass/Vol] 79.4 mg/dL Normal [facility] Comment on above: Performed By: #### V ITAD, IRON #### [facility] [address] [address] [address] Chucho Jesus Cholesterol.total/C holesterol in HDL [Mass ratio] 3.3 {ratio} Normal [facility] Comment on above: Performed By: #### V ITAD, IRON #### [facility] [address] [address] [address] Chucho Jesus HDL NORMAL > or = 60 mg/dl - LO W CARDIOVASCULAR RISK <40 mg/dl - HIGH CARDIOVASCULAR RISK Normal [facility] Comment on above: Performed By: #### V ITAD, IRON #### [facility] [address] [address] [address] Chucho Jesus LDL CALC NORMAL SEE BELOW Normal [facility] Comment on above: Result Comment: <100 mg/dl OPTIMAL 100 - 129 mg/dl NEAR OR ABOVE OPTIMAL 130 - 159 mg/dl BORDERLINE HIGH 160 - 189 mg/dl HIGH >190 mg/dl VERY HIGH Performed By: #### V ITAD, IRON #### [facility] [address] [place] [address] Dr. Chucho Jesus Triglyceride [Mass/Vol] 43 mg/dL Normal <=150 [facility] Comment on above: Performed By: #### V ITAD, IRON #### [facility] [address] [place] [address] Dr. Chucho Jesus VLDL CALC 8.6 mg/dL Normal [facility] Comment on above: Performed By: #### V ITAD, IRON #### [facility] [address] [place] [address] Dr. Chucho Jesus PROF 14(COMP METB)on 023 Albumin [Mass/Vol] 4.2 g/dL Normal 3.4-5.0 [facility] Comment on above: Performed By: #### V ITAD, IRON #### [facility] [address] [place] [address] Dr. Chucho Jesus Albumin/Globulin [Mass ratio] 1.1 {ratio} Normal [facility] Comment on above: Performed By: #### V ITAD, IRON #### [facility] [address] [place] [address] Dr. Chucho Jesus ALP [Catalytic activity/Vol] 93 U/L Normal 46-116 [facility] Comment on above: Performed By: #### V ITAD, IRON #### [facility] [address] [place] [address] Dr. Chucho Jesus ALT [Catalytic activity/Vol] 16 U/L Normal 14-59 [facility] Comment on above: Performed By: #### V ITAD, IRON #### [facility] [address] [place] [address] Dr. Chucho Jesus Anion gap [Moles/Vol] 14.3 mmol/L Normal [facility] Comment on above: Performed By: #### V ITAD, IRON #### [facility] [address] [place] [address] Dr. Chucho Jesus AST [Catalytic activity/Vol] 16 U/L Normal 15-37 [facility] Comment on above: Performed By: #### V ITAD, IRON #### [facility] [address] [address] [address] Chucho Jesus Bilirubin [Mass/Vol] 1.0 mg/dL Normal 0.2-1.0 [facility] Comment on above: Performed By: #### V ITAD, IRON #### [facility] [address] [place] [address] Dr. Chucho Jesus Calcium [Mass/Vol] 9.4 mg/dL Normal 8.5-10.1 [facility] Comment on above: Performed By: #### V ITAD, IRON #### [facility] [address] [place] [address] Dr. Chucho Jesus Chloride [Moles/Vol] 103 mmol/L Normal 98-107 [facility] Comment on above: Performed By: #### V ITAD, IRON #### [facility] [address] [place] [address] Dr. Chucho Jesus CO2 [Moles/Vol] 24.9 mmol/L Normal 21.0-32.0 [facility] Comment on above: Performed By: #### V ITAD, IRON #### [facility] [address] [place] [address] Dr. Chucho Jesus Creatinine [Mass/Vol] 0.68 mg/dL Normal 0.55-1.02 [facility] Comment on above: Performed By: #### V ITAD, IRON #### [facility] [address] [place] [address] Dr. Chucho Jesus EGFR-AF TANZANIAN >60 Normal >=60 [facility] Comment on above: Performed By: #### V ITAD, IRON #### [facility] [address] [place] [address] Dr. Chucho Jesus EGFR-NON AF TANZANIAN >60 Normal >=60 [facility] Comment on above: Performed By: #### V ITAD, IRON #### [facility] [address] [place] [address] Dr. Chucho Jesus Globulin (S) [Mass/Vol] 3.9 g/dL Normal [facility] Comment on above: Performed By: #### V ITAD, IRON #### [facility] [address] [address] [address] Chucho Jesus Glucose [Mass/Vol] 89 mg/dL Normal 74-106 [facility] Comment on above: Performed By: #### V ITAD, IRON #### [facility] [address] [place] [address] Dr. Chucho Jesus Potassium [Moles/Vol] 4.2 mmol/L Normal 3.5-5.1 [facility] Comment on above: Performed By: #### V ITAD, IRON #### [facility] [address] [place] [address] Dr. Chucho Jesus Protein [Mass/Vol] 8.1 g/dL Normal 6.4-8.2 [facility] Comment on above: Performed By: #### V ITAD, IRON #### [facility] [address] [place] [address] Dr. Chucho Jesus Sodium [Moles/Vol] 138 mmol/L Normal 136-145 [facility] Comment on above: Performed By: #### V ITAD, IRON #### [facility] [address] [place] [address] Dr. Chucho Jesus Urea nitrogen [Mass/Vol] 9.0 mg/dL Normal 7.0-18.0 [facility] Comment on above: Performed By: #### V ITAD, IRON #### [facility] [address] [place] [address] Dr. Chucho Jesus Urea nitrogen/Creatinine [Mass ratio] 13.2 mg/mg Normal [facility] Comment on above: Performed By: #### V ITAD, IRON #### [facility] [address] [place] [address] Dr. Chucho Jesus TSHon 11-07-2022 TSH 1.668 uIU/mL Normal 0.358-3.740 [facility] Comment on above: Performed By: #### V ITAD, IRON #### [facility] [address] [place] [address] Dr. Chucho Jesus [facility]on SARS-CoV-2 (COVID-19) RNA DMITRY+probe Ql (Unsp spec) Not detected Normal NOT DETECTED [facility] Comment on above: Result Comment: When [...] for this test is supported by the [place] of Health and Human Service's declaration that [...] Performed By: #### V ITAD, IRON #### [facility] [address] [place] [address] Dr. Chucho Jesus Covid-19 PCR (C[facility])on SARS-CoV-2 (COVID-19) RNA DMITRY+probe Ql (Unsp spec) Not detected Normal NOT DETECTED [facility] Comment on above: Result Comment: When [...] for this test is supported by the [place] of Health and Human Service's declaration that [...] used). Performed By: #### C VDTBH #### [facility] [address] [place] [address] Dr. Chucho Jesus INFLUENZA A AND B AGon 08-11 INFLUANE SEE BELOW Normal [facility] Comment on above: Result Comment: Nega tive for Flu A protein angiten. Infection due to Flu A cannot be ruled out. Flu A angiten in the sample may be below the detection limit of the test. Performed By: #### I NFLUAB #### [facility] [address] [place] [address] Dr. Chucho Jesus INFLUBNEGH SEE BELOW Normal [facility] Comment on above: Result Comment: Nega tive for Flu B protein antigen. Infection due to Flu B cannot be ruled out. Flu B antigen in the sample may be below the detection limit of the test. Performed By: #### I NFLUAB #### [facility] [address] [place] [address] Dr. Chucho Jesus INFLUENZA A AG Negative Normal NEGATIVE SEE COMMENT [facility] Comment on above: Performed By: #### I NFLUAB #### [facility] [address] [place] [address] Dr. Chucho Jesus INFLUENZA B AG Negative Normal NEGATIVE SEE COMMENT [facility] Comment on above: Performed By: #### I NFLUAB #### [facility] [address] [place] [address] Dr. Chucho Jesus [facility]on 05-07 SARS-CoV-2 (COVID-19) RNA DMITRY+probe Ql (Unsp spec) Not detected Normal NOT DETECTED [facility] Comment on above: Result Comment: When [...] for this test is supported by the [place] of Health and Human Service's declaration that [...] Performed By: #### V ITAD, IRON #### [facility] [address] [place] [address] Dr. Chucho Jesus INFLUENZA A AND B [facility] 05-26 INFLUANEGH SEE BELOW Normal [facility] Comment on above: Result Comment: Nega tive for Flu A protein angiten. Infection due to Flu A cannot be ruled out. Flu A angiten in the sample may be below the detection limit of the test. Performed By: #### V ITAD, IRON #### [facility] [address] [place] [address] Dr. Chucho Jesus INFLUBNEGH SEE BELOW Normal [facility] Comment on above: Result Comment: Nega tive for Flu B protein antigen. Infection due to Flu B cannot be ruled out. Flu B antigen in the sample may be below the detection limit of the test. Performed By: #### V ITAD, IRON #### [facility] [address] [place] [address] Dr. Chucho Jesus INFLUENZA A AG Negative Normal NEGATIVE SEE COMMENT [facility] Comment on above: Performed By: #### V ITAD, IRON #### [facility] [address] [place] [address] Dr. Chucho Jesus INFLUENZA B AG Negative Normal NEGATIVE SEE COMMENT [facility] Comment on above: Performed By: #### V ITAD, IRON #### [facility] [address] [place] [address] Dr. Chucho Jesus INTERNAL CONTROLS Within Normal Limits Normal Wi thin Normal Limits [facility] Comment on above: Performed By: #### V ITAD, IRON #### [facility] [address] [place] [address] Dr. Chucho Jesus ER URINE PROFILEon 2 Bilirubin Ql (U) Negative Normal NEGATIVE [facility] Comment on above: Performed By: #### V ITAD, IRON #### [facility] [address] [address] [address] Chucho Jesus Clarity (U) CLEAR Normal CLEAR [facility] Comment on above: Performed By: #### V ITAD, IRON #### [facility] [address] [address] [address] Chucho Jesus Color (U) YELLOW Normal YELLOW [facility] Comment on above: Performed By: #### V ITAD, IRON #### [facility] [address] [address] [address] Chucho BAHENA A micrscopic examination will be performed if indicated. Normal [facility] Comment on above: Performed By: #### V ITAD, IRON #### [facility] [address] [place] [address] Dr. Chucho Jesus Glucose Ql (U) Negative Normal NEGATIVE [facility] Comment on above: Performed By: #### V ITAD, IRON #### [facility] [address] [place] [address] Dr. Chucho Jesus Hemoglobin Ql (U) Negative Normal NEGATIVE [facility] Comment on above: Performed By: #### V ITAD, IRON #### [facility] [address] [place] [address] Dr. Chucho Jesus Ketones Ql (U) >=80 Abnormal NEGATIVE [facility] Comment on above: Performed By: #### V ITAD, IRON #### [facility] [address] [address] [address] Chucho Jesus LEUKOCYTES Negative Normal NEGATIVE [facility] Comment on above: Performed By: #### V ITAD, IRON #### [facility] [address] [address] [address] Chucho Jesus Nitrite Ql (U) Negative Normal NEGATIVE [facility] Comment on above: Performed By: #### V ITAD, IRON #### [facility] [address] [place] [address] Dr. Chucho Jesus pH (U) 6.0 [pH] Normal 5-9 [facility] Comment on above: Performed By: #### V ITAD, IRON #### [facility] [address] [address] [address] Chucho Jesus Protein (U) [Mass/Vol] 100 mg/dL Abnormal NEGATIVE/ TRACE [facility] Comment on above: Performed By: #### V ITAD, IRON #### [facility] [address] [address] [address] Chucho Jesus SPEC GRAVITY >=1.030 Abnormal 1.005-<=1.025 [facility] Comment on above: Performed By: #### V ITAD, IRON #### [facility] [address] [address] [address] Chucho Jesus UR MICRO IND INDICATED Normal [facility] Comment on above: Performed By: #### V ITAD, IRON #### [facility] [address] [place] [address] Dr. Chucho Jesus Urobilinogen Qn (U) 0.2 {Chelsea'U}/dL Normal 0.2 - 1. 0 [facility] Comment on above: Performed By: #### V ITAD, IRON #### [facility] [address] [place] [address] Dr. Chucho Jesus URon 05-22-2022 , QUAL Negative Normal NEGATIVE [facility] Comment on above: Performed By: #### V ITAD, IRON #### [facility] [address] [place] [address] Dr. Chucho Jesus URINE MICROSCOPIC ONLYon BACTERIA NONE SEEN Normal NONE SEEN [facility] Comment on above: Performed By: #### V ITAD, IRON #### [facility] [address] [address] [address] Chucho Jesus Bacteria identified Cx Nom (U) NOT INDICATED Normal [facility] Comment on above: Performed By: #### V ITAD, IRON #### [facility] [address] [address] [address] Chucho Jesus CAST NONE SEEN Normal NONE SEEN [facility] Comment on above: Performed By: #### V ITAD, IRON #### [facility] [address] [address] [address] Chucho Jesus Crystals LM Nom (Urine sed) NONE SEEN Normal NONE SEEN [facility] Comment on above: Performed By: #### V ITAD, IRON #### [facility] [address] [address] [address] Chucho Jesus Epithelial cells LM Ql (Urine sed) FEW Abnormal NONE SEEN /RARE [facility] Comment on above: Performed By: #### V ITAD, IRON #### [facility] [address] [address] [address] Chucho Jesus MUCOUS MODERATE Abnormal NONE SEEN [facility] Comment on above: Performed By: #### V ITAD, IRON #### [facility] [address] [address] [address] Chucho Jesus RBC NONE SEEN Abnormal 0-2 [facility] Comment on above: Performed By: #### V ITAD, IRON #### [facility] [address] [address] [address] Chucho Jesus WBC NONE SEEN Normal NONE SEEN [facility] Comment on above: Performed By: #### V ITAD, IRON #### [facility] [address] [place] [address] Dr. Chucho Jesus XR LSPINE 2_3 VIEWSon [...] MARCO CAMPOS Date: 2022-05-22 12:28 Normal [facility] INSULINon 04-25-2022 Insulin 10.4 uIU/mL Normal 2.6-24.9 [facility] Comment on above: Performed By: #### V ITAD, IRON #### [facility] [address] [address] [address] Chucho Jesus CBC AUTO DIFFon 04-24-2022 BASO # 0.0 103/ul Normal 0.0-0.1 [facility] Comment on above: Performed By: #### C BC #### [facility] [address] [address] [address] Chucho Jesus Basophils/100 WBC (Bld) 0.6 % Normal 0.2-2.0 [facility] Comment on above: Performed By: #### C BC #### [facility] [address] [place] [address] Dr. Chucho Jesus EO # 0.1 103/ul Normal 0.0-0.7 [facility] Comment on above: Performed By: #### C BC #### [facility] [address] [place] [address] Dr. Chucho Jesus Eosinophils/100 WBC (Bld) 1.8 % Normal 0.9-7.0 [facility] Comment on above: Performed By: #### C BC #### [facility] [address] [place] [address] Dr. Chucho Jesus Erythrocyte distribution width (RBC) [Ratio] 12.9 % Normal 11.0-15.0 [facility] Comment on above: Performed By: #### C BC #### [facility] [address] [place] [address] Dr. Chucho Jesus Hematocrit (Bld) [Volume fraction] 45.6 % Normal 36.0-48.0 [facility] Comment on above: Performed By: #### C BC #### [facility] [address] [place] [address] Dr. Chucho Jesus Hemoglobin (Bld) [Mass/Vol] 14.7 g/dL Normal 12.0-16.0 [facility] Comment on above: Performed By: #### C BC #### [facility] [address] [place] [address] Dr. Chucho Jesus IG # 0.02 10e3/ul Normal 0.00-0.03 [facility] Comment on above: Performed By: #### C BC #### [facility] [address] [place] [address] Dr. Chucho Jesus IG % 0.3 % Normal 0.0-0.5 [facility] Comment on above: Performed By: #### C BC #### [facility] [address] [place] [address] Dr. Chucho Jesus LYMPH # 1.6 103/ul Normal 1.2-3.8 [facility] Comment on above: Performed By: #### C BC #### [facility] [address] [place] [address] Dr. Chucho Jesus Lymphocytes/100 WBC (Bld) 24.5 % Normal 20.5-60.0 [facility] Comment on above: Performed By: #### C BC #### [facility] [address] [place] [address] Dr. Chucho Jesus MANUAL DIFF REQ NO Normal [facility] Comment on above: Performed By: #### C BC #### [facility] [address] [place] [address] Dr. Chucho Jesus MCH (RBC) [Entitic mass] 28.4 pg Normal 26.7-34.0 [facility] Comment on above: Performed By: #### C BC #### [facility] [address] [place] [address] Dr. Chucho Jesus MCHC (RBC) [Mass/Vol] 32.2 g/dL Normal 29.9-35.2 [facility] Comment on above: Performed By: #### C BC #### [facility] [address] [place] [address] Dr. Chucho Jesus MCV (RBC) [Entitic vol] 88.2 fL Normal 81.0-99.0 [facility] Comment on above: Performed By: #### C BC #### [facility] [address] [place] [address] Dr. Chucho Jesus MONO # 0.5 103/ul Normal 0.3-0.8 [facility] Comment on above: Performed By: #### C BC #### [facility] [address] [place] [address] Dr. Chucho Jesus Monocytes/100 WBC (Bld) 7.4 % Normal 1.7-12.0 [facility] Comment on above: Performed By: #### C BC #### [facility] [address] [place] [address] Dr. Chucho Jesus NEUT # 4.4 103/ul Normal 1.4-6.5 [facility] Comment on above: Performed By: #### C BC #### [facility] [address] [place] [address] Dr. Chucho Jesus Neutrophils/100 WBC (Bld) 65.4 % Normal 43.0-75.0 [facility] Comment on above: Performed By: #### C BC #### [facility] [address] [place] [address] Dr. Chucho Jesus Platelet mean volume (Bld) [Entitic vol] 9.9 fL Normal 9.5-13.5 [facility] Comment on above: Performed By: #### C BC #### [facility] [address] [place] [address] Dr. Chucho Jesus PLT 225 103/ul Normal 150-450 [facility] Comment on above: Performed By: #### C BC #### [facility] [address] [place] [address] Dr. Chucho Jesus RBC 5.17 106/ul Normal 4.20-5.40 [facility] Comment on above: Performed By: #### C BC #### [facility] [address] [place] [address] Dr. Chucho Jesus WBC 6.7 103/ul Normal 4.0-11.0 [facility] Comment on above: Performed By: #### C BC #### [facility] [address] [place] [address] Dr. Chucho Jesus FREE THYROXINE INDEX T7on FTI 3.29 Normal 1.30-4.50 [facility] Comment on above: Performed By: #### T 7, TSH, LIPID, CMP #### [facility] [address] [address] [address] Chucho Jesus T3U 27.0 % Critically low 30.0-39.0 [facility] Comment on above: Performed By: #### T 7, TSH, LIPID, CMP #### [facility] [address] [address] [address] Chucho Jesus T4 [Mass/Vol] 12.20 ug/dL Normal 4.80-13.90 [facility] Comment on above: Performed By: #### T 7, TSH, LIPID, CMP #### [facility] [address] [address] [address] Chucho Jesus GLYCOHEMOGLOBIN A1Con 2021 ADA RECOMMENDATION SEE BELOW Normal [facility] Comment on above: Result Comment: ADA RECOMMENDED LIMIT 4.0 - 6.0 ADA THERAPEUTIC TARGET < 7.0 ACTION SUGGESTED > 7.0 Performed By: #### A 1C #### [facility] [address] [address] [address] Chucho Jesus Glucose [Mass/Vol] 105 mg/dL Normal [facility] Comment on above: Performed By: #### A 1C #### [facility] [address] [place] [address] Dr. Chucho Jesus HbA1c (Bld) [Mass fraction] 5.3 % Normal 4.5-6.2 [facility] Comment on above: Performed By: #### A 1C #### [facility] [address] [place] [address] Dr. Chucho Jesus IRONon 04-24-2022 Iron [Mass/Vol] 48.0 ug/dL Critically low 50.0-170.0 [facility] Comment on above: Performed By: #### V ITAD, IRON #### [facility] [address] [place] [address] Dr. Chucho Jesus LIPID PROFILEon 04-24-2022 CHOL-HDL RATIO NORM SEE BELOW Normal [facility] Comment on above: Result Comment: 3.3 - 4.4 LOW RISK 4.4 - 7.1 AVERAGE RISK 7.1 - 11.0 MODERATE RISK >11.0 HIGH RISK Performed By: #### V ITAD, IRON #### [facility] [address] [address] [address] Chucho Jesus Cholesterol [Mass/Vol] 184 mg/dL Normal <=200 [facility] Comment on above: Performed By: #### V ITAD, IRON #### [facility] [address] [address] [address] Chucho Jseus Cholesterol in HDL [Mass/Vol] 55 mg/dL Normal 40-60 [facility] Comment on above: Performed By: #### V ITAD, IRON #### [facility] [address] [address] [address] Chucho Jesus Cholesterol in LDL [Mass/Vol] 116.6 mg/dL Normal [facility] Comment on above: Performed By: #### V ITAD, IRON #### [facility] [address] [place] [address] Dr. Chucho Jesus Cholesterol.total/C holesterol in HDL [Mass ratio] 3.3 {ratio} Normal [facility] Comment on above: Performed By: #### V ITAD, IRON #### [facility] [address] [address] [address] Chucho Jesus HDL NORMAL > or = 60 mg/dl - LO W CARDIOVASCULAR RISK <40 mg/dl - HIGH CARDIOVASCULAR RISK Normal [facility] Comment on above: Performed By: #### V ITAD, IRON #### [facility] [address] [address] [address] Chucho Jesus LDL CALC NORMAL SEE BELOW Normal [facility] Comment on above: Result Comment: <100 mg/dl OPTIMAL 100 - 129 mg/dl NEAR OR ABOVE OPTIMAL 130 - 159 mg/dl BORDERLINE HIGH 160 - 189 mg/dl HIGH >190 mg/dl VERY HIGH Performed By: #### V ITAD, IRON #### [facility] [address] [place] [address] Dr. Chucho Jesus Triglyceride [Mass/Vol] 62 mg/dL Normal <=150 [facility] Comment on above: Performed By: #### V ITAD, IRON #### [facility] [address] [address] [address] Chucho Jesus VLDL CALC 12.4 mg/dL Normal [facility] Comment on above: Performed By: #### V ITAD, IRON #### [facility] [address] [address] [address] Chucho Jesus PROF 14(COMP METB)on 04-24- 022 Albumin [Mass/Vol] 3.7 g/dL Normal 3.4-5.0 [facility] Comment on above: Performed By: #### T 7, TSH, LIPID, CMP #### [facility] [address] [address] [address] Chucho Jesus Albumin/Globulin [Mass ratio] 0.9 {ratio} Normal [facility] Comment on above: Performed By: #### T 7, TSH, LIPID, CMP #### [facility] [address] [place] [address] Dr. Chucho Jesus ALP [Catalytic activity/Vol] 74 U/L Normal 46-116 [facility] Comment on above: Performed By: #### T 7, TSH, LIPID, CMP #### [facility] [address] [address] [address] Chucho Jesus ALT [Catalytic activity/Vol] 16 U/L Normal 14-59 [facility] Comment on above: Performed By: #### T 7, TSH, LIPID, CMP #### [facility] [address] [address] [address] Chucho Jesus Anion gap [Moles/Vol] 12.3 mmol/L Normal [facility] Comment on above: Performed By: #### T 7, TSH, LIPID, CMP #### [facility] [address] [place] [address] Dr. Chucho Jeuss AST [Catalytic activity/Vol] 13 U/L Critically low 15-37 [facility] Comment on above: Performed By: #### T 7, TSH, LIPID, CMP #### [facility] [address] [address] [address] Chucho Jesus Bilirubin [Mass/Vol] 0.4 mg/dL Normal 0.2-1.0 [facility] Comment on above: Performed By: #### T 7, TSH, LIPID, CMP #### [facility] [address] [address] [address] Chucho Jesus Calcium [Mass/Vol] 8.9 mg/dL Normal 8.5-10.1 [facility] Comment on above: Performed By: #### T 7, TSH, LIPID, CMP #### [facility] [address] [place] [address] Dr. Chucho Jesus Chloride [Moles/Vol] 105 mmol/L Normal 98-107 [facility] Comment on above: Performed By: #### T 7, TSH, LIPID, CMP #### [facility] [address] [place] [address] Dr. Chucho Jesus CO2 [Moles/Vol] 26.6 mmol/L Normal 21.0-32.0 [facility] Comment on above: Performed By: #### T 7, TSH, LIPID, CMP #### [facility] [address] [place] [address] Dr. Chucho Jesus Creatinine [Mass/Vol] 0.68 mg/dL Normal 0.55-1.02 [facility] Comment on above: Performed By: #### T 7, TSH, LIPID, CMP #### [facility] [address] [place] [address] Dr. Chucho Jesus EGFR-AF TANZANIAN >60 Normal >=60 [facility] Comment on above: Performed By: #### T 7, TSH, LIPID, CMP #### [facility] [address] [place] [address] Dr. Chucho Jesus EGFR-NON AF TANZANIAN >60 Normal >=60 [facility] Comment on above: Performed By: #### T 7, TSH, LIPID, CMP #### [facility] [address] [place] [address] Dr. Chucho Jesus Globulin (S) [Mass/Vol] 4.3 g/dL Normal [facility] Comment on above: Performed By: #### T 7, TSH, LIPID, CMP #### [facility] [address] [place] [address] Dr. Chucho Jesus Glucose [Mass/Vol] 87 mg/dL Normal 74-106 [facility] Comment on above: Performed By: #### T 7, TSH, LIPID, CMP #### [facility] [address] [address] [address] Chucho Jesus Potassium [Moles/Vol] 3.9 mmol/L Normal 3.5-5.1 [facility] Comment on above: Performed By: #### T 7, TSH, LIPID, CMP #### [facility] [address] [address] [address] Chucho Jesus Protein [Mass/Vol] 8.0 g/dL Normal 6.4-8.2 [facility] Comment on above: Performed By: #### T 7, TSH, LIPID, CMP #### [facility] [address] [place] [address] Dr. Chucho Jesus Sodium [Moles/Vol] 140 mmol/L Normal 136-145 [facility] Comment on above: Performed By: #### T 7, TSH, LIPID, CMP #### [facility] [address] [place] [address] Dr. Chucho Jesus Urea nitrogen [Mass/Vol] 9.0 mg/dL Normal 7.0-18.0 [facility] Comment on above: Performed By: #### T 7, TSH, LIPID, CMP #### [facility] [address] [place] [address] Dr. Chucho Jesus Urea nitrogen/Creatinine [Mass ratio] 13.2 mg/mg Normal [facility] Comment on above: Performed By: #### T 7, TSH, LIPID, CMP #### [facility] [address] [place] [address] Dr. Chucho Jesus TSHon 04-24-2022 TSH 1.127 uIU/mL Normal 0.358-3.740 [facility] Comment on above: Performed By: #### T 7, TSH, LIPID, CMP #### [facility] [address] [place] [address] Dr. Chucho Jesus VITAMIN D 25 OHon 04-24-2022 VIT D 25-OH 35.2 ng/mL Normal [facility] Comment on above: Performed By: #### V ITAD, IRON #### [facility] [address], [place] [address] Dr. Chucho Jesus VIT D RANGES SEE BELOW Normal [facility] Comment on above: Result Comment: <20 ng/mL Vit D deficient 20 - <30 ng/mL Vit D insufficient 30 - 100 ng/mL Vit D sufficient >100 ng/mL Potential Toxicity Performed By: #### V ITAD, IRON #### [facility] [address], [place] [address] Dr. Chucho Jesus HCG ( test) Ql (U)O rdered By: James Churchill on 12-05-2020 Internal Control Pass [facility] Interpretation and review of laboratory results Normal [facility] POC , UrineOrdered By: James Churchill on 12-05-2020 HCG ( test) Ql (U) Negative Negative [facility] CTA CHEST WITH CONTRASTon CTA CHEST WITH [...] hypo inflation and atelectasis. Interpreted by:ALLEN Andersonigned by:dAy Tran MD03/25/17Edited Result - FINAL Normal [facility] Basic Metabolic Profon 02-19 (cont.) Normal [facility] Comment on above: Result Comment: Aver age GFR for 20-29 years old: 116 mL/min/1.73sq mChronic Kidney Disease: <60 mL/min/1.73sq mKidney failure: <15 mL/min/1.73sq meGFR calculated using average adult body mass. Additional eGFR calculator available at:http://www.[employer]/multiple_crcl_2012.htm Performed By: #### C DP, BMP, TROPI ####[address] [place] [address] Anion gap 14 mmol/L Normal - [facility] Comment on above: Performed By: #### C DP, BMP, TROPI ####[address] [place] [address] BUN/CRE Ratio 13 Normal - [facility] Comment on above: Performed By: #### C DP, BMP, TROPI ####[address] [place] [address] Calcium 9.2 mg/dL Normal 8.6-10.4 [facility] Comment on above: Performed By: #### C DP, BMP, TROPI ####[address] [place] [address] Chloride 105 mmol/L Normal 98-107 [facility] Comment on above: Performed By: #### C DP, BMP, TROPI ####[address] [place] [address] CO2 23 mmol/L Normal 20-31 [facility] Comment on above: Performed By: #### C DP, BMP, TROPI ####[address] [place] [address] Creatinine 0.55 mg/dL Normal 0.50-0.90 [facility] Comment on above: Performed By: #### C DP, BMP, TROPI ####[address] [place] [address] eGFR (non-black) mL/min/{1.73_m2} Normal >60 [facility] Comment on above: Performed By: #### C DP, BMP, TROPI ####[address] [place] [address] Glucose mass conc 96 mg/dL Normal 70-99 [facility] Comment on above: Performed By: #### C DP, BMP, TROPI ####[address] [place] [address] Potassium molar conc 3.6 mmol/L Low 3.7-5.3 [facility] Comment on above: Performed By: #### C DP, BMP, TROPI ####[address] [place] [address] Sodium 142 mmol/L Normal 135-144 [facility] Comment on above: Performed By: #### C DP, BMP, TROPI ####[address] [place] [address] Staging: Normal [facility] Comment on above: Result Comment: Stag e 1: Some kidney damage normal GFRStage 2: Mild kidney damage GFR 60-89Stage 3: Moderate kidney damage GFR 30-59Stage 4: Severe kidney damage GFR 15-29Stage 5: Severe kidney damage GFR <15ESRD - chronic treatment by dialysis or transplantPerformed at [address] [place] [address] Performed By: #### C DP, BMP, TROPI ####[address] [place] [address] Urea nitrogen 7 mg/dL Normal 6-20 [facility] Comment on above: Performed By: #### C DP, BMP, TROPI ####[address] , [place] [address] CBC with Diffon 02-19-2017 Abs. Basophil 0.00 k/uL Normal 0.0-0.2 [facility] Comment on above: Result Comment: Perf ormed at [address] [place] [address] Performed By: #### C DP, BMP, TROPI ####[address] , [facility]83 Abs.Neutrophil (Seg) 7.10 k/uL Normal 1.8-8.0 [facility] Comment on above: Performed By: #### C DP, BMP, TROPI ####[address] , [facility]83 Basophils/100 WBC Auto (Bld) 0 % Normal [facility] Comment on above: Performed By: #### C DP, BMP, TROPI ####[address] [place] [address] Eosinophils 0.30 10*3/uL Normal 0.0-0.4 [facility] Comment on above: Performed By: #### C DP, BMP, TROPI ####[address] [place] [address] Eosinophils/100 leukocytes 3 % Normal [facility] Comment on above: Performed By: #### C DP, BMP, TROPI ####[address] [place] [address] Erythrocyte distribution width Auto Ratio (RBC) 13.6 % Normal 12.1-15.2 [facility] Comment on above: Performed By: #### C DP, BMP, TROPI ####[address] [place] [address] Erythrocytes (RBC) 5.03 10*6/uL Normal 4.0-5.2 [facility] Comment on above: Performed By: #### C DP, BMP, TROPI ####[address] [place] [address] Hematocrit (HCT) 40.2 % Normal 36-46 [facility] Comment on above: Performed By: #### C DP, BMP, TROPI ####[address] [place] [address] Hemoglobin mass conc (Bld) 13.2 g/dL Normal 12.0-16.0 [facility] Comment on above: Performed By: #### C DP, BMP, TROPI ####[address] [place] [address] Lymphocytes 2.90 10*3/uL Normal 1.2-5.2 [facility] Comment on above: Performed By: #### C DP, BMP, TROPI ####[address] [place] [address] Lymphocytes/100 leukocytes 27 % Normal [facility] Comment on above: Performed By: #### C DP, BMP, TROPI ####[address] [place] [address] MCH 26.2 pg Normal 26-34 [facility] Comment on above: Performed By: #### C DP, BMP, TROPI ####[address] [place] [address] MCHC mass conc (RBC) 32.8 g/dL Normal 31-37 [facility] Comment on above: Performed By: #### C DP, BMP, TROPI ####[address] [place] [address] MCV 79.9 fL Low 80-100 [facility] Comment on above: Performed By: #### C DP, BMP, TROPI ####[address] [place] [address] Monocytes 0.60 10*3/uL Normal 0.0-1.0 [facility] Comment on above: Performed By: #### C DP, BMP, TROPI ####[address] [place] [address] Monocytes/100 leukocytes 5 % Normal [facility] Comment on above: Performed By: #### C DP, BMP, TROPI ####[address] [place] [address] Neutrophil (Seg) 65 % Normal [facility] Comment on above: Performed By: #### C DP, BMP, TROPI ####[address] [place] [address] Platelet mean volume (PMV) 9.6 fL Normal 6.0-12.0 [facility] Comment on above: Performed By: #### C DP, BMP, TROPI ####[address] , [place] [address] Platelets 278 10*3/uL Normal 140-450 [facility] Comment on above: Performed By: #### C DP, BMP, TROPI ####[address] [place] [address] WBC (Leukocytes) 10.8 10*3/uL Normal 4.5-13.5 [facility] Comment on above: Performed By: #### C DP, BMP, TROPI ####[address] [place] [address] Auto Diff Performed NOT REPORTED Normal [facility] Comment on above: Performed By: #### C DP, BMP, TROPI ####[address] [place] [address] Erythrocyte morphology NOT REPORTED Normal [facility] Comment on above: Performed By: #### C DP, BMP, TROPI ####[address] [place] [address] Platelets NOT REPORTED Normal [facility] Comment on above: Performed By: #### C DP, BMP, TROPI ####[address] [place] [address] WBC Morphology NOT REPORTED Normal [facility] Comment on above: Performed By: #### C DP, BMP, TROPI ####[address] [place] [address] ED Noteon 02-19-2017 HIM IP Note OR [employer] Normal [facility] ED Provider Noteon 7 HIM IP Note OR [employer] Normal [facility] Troponinon 02-19-2017 Troponin T.cardiac mass conc ug/L Normal <0.03 [facility] Comment on above: Result Comment: Trop onin T results cannot be compared to Troponin-I results. Performed By: #### C DP, BMP, TROPI ####[address] [place] [address] Troponin I.cardiac mass conc Normal [facility] Comment on above: Result Comment: Refe rence Range: <0.03 Within reference range. 0.03-0.09 Possible myocardial damage.Repeat at appropriate intervals to rule out chronic elevation. >= 0.10 Indicative of myocardial damage.Performed at [address] [place] [address] [phone] Performed By: #### C DP, BMP, TROPI ####[address] [place] [address] Vital Signs Date Time Vital Sign Value Performing Clinician Facility 02-27-2023 14:39-0400 Blood Pressure Location Gary MORRIS [facility] 02-27-2023 14:39-0400 Diastolic blood pressure 66 mm[Hg] Gary MORRIS [facility] 02-27-2023 14:39-0400 Heart rate 70 /min Gary MORRIS [facility] 02-27-2023 14:39-0400 Respiratory rate 16 /min Gary NILL [facility] 02-27-2023 14:39-0400 Systolic blood pressure 106 mm[Hg] Gary MORRIS [facility] 01-08-2022 08:09-0400 Body temperature 98.01 [degF] Queta Rice DO Work Phone: [employer] 01-08-2022 08:09-0400 Body weight 75.75 kg Queta Rice DO Work Phone: [employer] 01-08-2022 08:09-0400 Diastolic blood pressure 71 mm[Hg] Queta Rice DO Work Phone: [employer] 01-08-2022 08:09-0400 Heart rate 98 /min Queta Rice DO Work Phone: [employer] 01-08-2022 08:09-0400 Systolic blood pressure 112 mm[Hg] Queta Rice DO Work Phone: [employer] 12-10-2021 14:45-0400 Body height 166.37 cm Bret Long Other [employer] Other 12-10-2021 14:45-0400 Body mass index (BMI) [Ratio] 26.55 kg/m2 Bret Long Other [employer] Other 12-10-2021 14:45-0400 Body weight 73.48 kg Bret Long Other [employer] Other 12-10-2021 14:45-0400 Diastolic blood pressure 72 mm[Hg] Bret Long Other [employer] Other 12-10-2021 14:45-0400 Systolic blood pressure 103 mm[Hg] Bret Long Other [employer] Other 11-27-2021 14:01-0400 Body temperature 98.4 [degF] Queta Rice DO Work Phone: [facility] 11-27-2021 14:01-0400 Body weight 74.84 kg Queta Rice DO Work Phone: [facility] 11-27-2021 14:01-0400 Diastolic blood pressure 64 mm[Hg] Queta Rice DO Work Phone: [facility] 11-27-2021 14:01-0400 Heart rate 98 /min Queta Rice DO Work Phone: [facility] 11-27-2021 14:01-0400 Systolic blood pressure 121 mm[Hg] Queta Rice DO Work Phone: [facility] 12-05-2020 19:26-0400 Heart rate 106 /min James Breece PA-C Work Phone: [facility] 12-05-2020 19:25-0400 Body temperature 98.29 [degF] James Breece PA-C Work Phone: [facility] 12-05-2020 19:25-0400 Body weight 97.98 kg James Breece PA-C Work Phone: [facility] 12-05-2020 19:25-0400 Diastolic blood pressure 86 mm[Hg] James Breece PA-C Work Phone: [facility] 12-05-2020 19:25-0400 Respiratory rate 16 /min James Breece PA-C Work Phone: [facility] 12-05-2020 19:25-0400 SaO2% (BldA) [Mass fraction] 97 % James Breece PA-C Work Phone: [facility] 12-05-2020 19:25-0400 Systolic blood pressure 126 mm[Hg] James Breece PA-C Work Phone: [facility] Encounters Encounter Date Encounter Type Care Provider Facility Start: 02-15-2024 End: 02-15-2024 ambulatory LOURDES CHRISTIE Not Available Start: 01-20-2024 End: 01-20-2024 ambulatory KATELYN DUVALL Not Available Start: 01-01-2024 End: 01-01-2024 ambulatory LOURDES CHRISTIE Not Available Start: 12-17-2023 End: 12-17-2023 ambulatory LOURDES CHRISTIE Not Available Start: 02-27-2023 End: 02-28-2023 ambulatory Gary MORRIS Facility:[facility] Start: 02-27-2023 End: 02-27-2023 Patient encounter procedure Gary Howell DOMINGO General Surgery Dom[facility] Start: 02-23-2023 ambulatory Alexandr Bourgeois Facility:[facility] Start: 02-05-2023 ambulatory Gary MORRIS Facility:[facility] Start: 11-07-2022 End: 11-08-[address] HOMAR [...] LEWIS . Facility:[facility] Start: 02-18-2022 ambulatory QUETA Huffman~[id number] [facility] Start: 02-12-2022 ambulatory QUETA Huffman~[id number] [facility] Start: 02-12-2022 End: 02-12-2022 Telemedicine consultation with patient Queta Osorio DO Work Phone: [facility] Comment on above: Anxiety (Primary Dx) Start: 01-19-2022 Refill Luis Dipalma D O Work Phone: [facility] Start: 01-19-2022 Refill Luis Dipalma D O Work Phone: [facility] Start: 01-08-2022 End: 01-08-2022 ambulatory QUETA JAMA M~[id number] RICE DEVON [facility] Start: 01-08-2022 End: 01-08-2022 Office outpatient visit 25 minutes Queta M Rice DO Work Phone: [facility] Comment on above: Anxiety (Primary Dx) ; Hypotension, unspecified hypotension type Start: 01-08-2022 End: 01-08-2022 Patient encounter procedure Queta Nathanael Rice DO Work Phone: [facility] Start: 12-11-2021 End: 12-11-2021 ambulatory QUETA JAMA M~[id number] [facility] Start: 12-10-2021 End: 12-10-2021 ambulatory Bret Long Other [employer] Other Start: 12-10-2021 Office outpatient ne w 45 minutes Bret Long [facility] G[facility] Start: 11-27-2021 End: 11-27-2021 ambulatory QUETA JAMA M~[id number] [facility] Start: 11-27-2021 End: 11-27-2021 Office outpatient new 30 minutes Queta Nathanael Rice DO Work Phone: [facility] Comment on above: Anxiety (Primary Dx) Start: 11-27-2021 End: 11-27-2021 Patient encounter procedure Queta M Rice DO Work Phone: [facility] Start: 11-25-2021 Telephone encounter Dana Kinsey [facility] Start: 12-05-2020 End: 12-05-2020 ambulatory PHYSICIAN [facility] Start: 12-05-2020 End: 12-05-2020 Office outpatient new 20 minutes James Churchill PA-C Work Phone: [facility] Comment on above: Vaginal sore (Primar y Dx) Start: 02-19-2017 End: 02-19-2017 Emergency department patient visit KIM SUTHERLAND [facility] Procedures Date Procedure Procedure Detail Performing Clinician Start: 11-27-2021 Adult depression scr eening assessment Queta Osorio DO Work Phone: Start: 12-05-2020 Urine test visual color cmprsn meths James Churchill PA-C Work Phone: Start: 02-19-2017 Ct angiography chest w/contrast/noncontrast KIM SUTHERLAND Start: 02-19-2017 SALINE LOCK IV KIM SIBLEY Start: 02-19-2017 TELEMETRY MONITORING SEBASTIAN SUTHERLAND Start: 02-19-2017 BASIC METABOLIC PANEL Nathanael SUTHERLAND Start: 02-19-2017 CBC WITH AUTO DIFFERENTIAL KIM SUTHERLAND Start: 02-19-2017 TROPONIN KIM Howell Start: 02-19-2017 EKG 12-LEAD KIM Howell None (qualifier value) Henrik brothers DOMINGO Plan of Treatment Date Care Activity Detail Author Start: 11-27-2022 Adolescent depressio n screening assessment Depression Screening [place] [employer] Start: 03-06-2022 Influenza vaccination T [facility] Start: 02-07-2022 End: 02-07-2022 Patient encounter procedure 02/07/2022 Office Visit Family Medicine Queta Osorio DO [address] [place] [phone] [facility] Start: 12-19-2021 End: 12-19-2021 Patient encounter procedure 12/19/2021 Office Visit Family Queta Benton DO [address] [place] [phone] [facility] Start: 12-07-2021 COVID-19 Vaccine (3 - Booster for Moderna series) COVID-19 Vaccine (3 - Booster for Moderna series) [facility] Start: 11-27-2021 End: 11-27-2021 Patient encounter procedure 11/27/2021 Office Visit Family Medicine Queta Osorio DO [address] [place] [address] [facility] Start: 11-24-2021 Adolescent depressio n screening assessment Depression Screening [facility] Start: 11-24-2021 Hepatitis C screening Hepatitis C Sc reening [facility] Start: 11-24-2021 HIV screening HIV Screening [facility] Start: 11-24-2021 Social Influencers o f Health Screening Social Influencers of Health Screening [facility] Start: 03-06-2021 Influenza vaccination Sequenti al Influenza Vaccine (Season Ended) [facility] Start: 2017 Screening for malign ant neoplasm of cervix Cervical Cancer Screening: Pap Smear [facility] Start: 2015 DTaP,Tdap,and Td Vac cines (1 - Tdap) DTaP,Tdap,and Td Vaccines (1 - Tdap) [facility] Start: 2014 Hepatitis C screening Hepatitis C Sc reening [facility] Start: 2011 HIV screening HIV Screening [facility] Start: 2008 COVID-19 Vaccine (1) COVID-19 Vaccin e (1) [facility] Start: 2008 Depression screening using PHQ-9 (Patient Health Questionnaire 9) score Depression Screening (PHQ9) [facility] Start: 2007 HPV Vaccines (1 - 2- dose series) HPV Vaccines (1 - 2-dose series) [facility] Start: 2007 Vaccination for april n papillomavirus HPV Vaccines (1 - 2-dose series) [facility] Start: 2001 COVID-19 Vaccine (1) COVID-19 Vaccin e (1) [facility] Start: 1999 History and physical examination, annual for health maintenance Wellness Visit [facility] Start: 1996 Screening for Chlamy marilee trachomatis Chlamydia Screening [facility] Start: 1996 Screening for malign ant neoplasm of cervix Pap Smear [facility] Start: 1996 Tetanus vaccination Tetanus: Every 1 0yrs [facility] Chlamydia trachomati s rRNA assay Chlamydia/GC/Trichomonas Amplified RNA Microbiology Routine Vaginal sore Ordered: 12/05/2020 [facility] Comment on above: Ordered: 12/05/2020 HSV by PCR Superficial Site HSV by PCR Superficial Site Lab Routine Vaginal sore Ordered: 12/05/2020 [facility] Comment on above: Ordered: 12/05/2020 Neisseria gonorrhoea e nucleic acid detection Chlamydia/Gonorrhoeae Amplified RNA Microbiology Routine Vaginal sore Ordered: 12/05/2020 [facility] Comment on above: Ordered: 12/05/2020 Trichomonas vaginali s Amplified RNA Trichomonas vaginalis Amplified RNA Microbiology Routine Vaginal sore Ordered: 12/05/2020 [facility] Comment on above: Ordered: 12/05/2020 Immunizations Immunization Date Immunization Notes Care Provider Bj kotharity 07-09-2021 SARS-CoV-2 (COVID-19 ) mRNA-1273 vaccine Gary MORRIS [facility] [place] 06-08-2021 SARS-CoV-2 (COVID-19 ) mRNA-1273 vaccine Gary MORRIS [facility] [place] Payers Date Payer Category Payer Medicaid [employer] [place] [id number] 2021-Present [address] [address] [place] [address] [id number] 2020 Medicaid [id number] 2016 Unknown [id number] 2013 Unknown [id number] 1996 Unknown [id number] 2.16.840.1.959695.3.579.2.903 1996 Unknown [id number] 2.16.840.1.865239.3.579.2.1143 1996 Unknown [id number] 2.16.840.1.183692.3.579.2.1143 1996 Unknown [id number] 2.16.840.1.911734.3.579.2.1143 1996 Unknown [id number] 2.16.840.1.441348.3.579.2.1143 1996 Unknown [id number] 2.16.840.1.225940.3.579.2.1143 1996 Unknown [id number] 2.16.840.1.655450.3.579.2.593 1996 Unknown [id number] 2.16.840.1.069589.3.579.2.593 1996 Unknown [id number] 2.16.840.1.450913.3.579.2.593 1996 Unknown [id number] 2.16.840.1.873183.3.579.2.593 1996 Unknown [id number] 2.16.840.1.470503.3.579.2.593 1996 Unknown [id number] 2.16.840.1.947249.3.579.2.593 1996 Unknown [id number] 2.16.840.1.318734.3.579.2.593 1996 Unknown [id number] 2.16.840.1.193893.3.579.2.727 1996 Unknown [id number] 2.16.840.1.430510.3.579.2.1259 1996 Unknown [id number] 2.16.840.1.213958.3.579.2.1259 1996 Unknown [id number] 2.16.840.1.109981.3.579.2.1259 1996 Unknown [id number] 2.16.840.1.644012.3.579.2.1259 1960 Unknown [id number] 2.16.840.1.145472.3.579.2.727 1959 Medicaid [id number] 1959 Self-pay 1959 Unknown [id number] 1959 Unknown [id number] 1959 Unknown [id number] Unknown [id number] 2.16.840.1.007732.3.579.2.531 Social History Date Type Detail Facility Start: 12-05-2020 End: 02-27-2023 Tobacco smoking status NHIS Never smoker [facility] Start: 12-05-2020 End: 11-27-2021 Tobacco use and exposure Never used [facility] Start: 12-05-2020 Alcohol intake Current drinke r of alcohol (finding) [facility] Start: 12-05-2020 End: 11-27-2021 History SDOH Alcohol Frequency 1 [facility] Start: 12-05-2020 Alcohol Comment occ [facility] Start: 1996 [facility] Start: 11-17-2021 End: 02-12-2022 Exposure to SARS-CoV-2 (event) Not sure [facility] Tobacco smoking stat [facility] Tobacco smoking consumption unknown [facility] Start: 11-27-2021 End: 02-12-2022 Alcohol intake Lifetime non-drinker (finding) [facility] Start: 1996 Sex Assigned At Female T [facility] Sex Assigned At [facility] Tobacco smoking status Never Gener al Surgery [place] Functional Status Date Assessment Result Facility 02-27-2023 Functional Status N/A [facility] Clinical Notes 12-05-2020 to 02-27-2023 Queta Osorio DO - 02/12/2022 7:30 AM EDTDana Rosario MA [...] size since first noted. Reports some discomfort. [facility] US completed 02/04 with lipoma favored. History [...] with excisional biopsy under local anesthesia at [facility]; call with problems/questions. Follow-up No qualifying [...] Recorded SARS-CoV-2 (COVID-19) mRNA-1273 vaccine 06/08/2021 Recorded [facility] Comment on above: Result Comment: Elec tronically Signed By: DOMINGO RANGEL, Gary Jackson\Date and Time Signed: 02/27/23 16:20 EDT 02-12-2022 History of Present illness Narrative Attempted to complete Mchart and patient was not online despite speaking to SEBASTIAN prior to appointment. Attempted to call on phone 3 separate times before noon with no answer. May reschedule at later date. documented in this encounter [facility] 01-08-2022 History of Present illness Narrative [...] due to buspirone. documented in this encounter [facility] 12-10-2021 Evaluation note Encounter Date Diagnosis Assessment Notes Dec, Irritable bowel syndrome with diarrhea (ICD-10 - K58.0) Continue medications without change Dec, Epigastric pain (ICD-10 - R10.13) Dec, Chronic nausea (ICD-10 - R11.0) Dec, Family history of carcinoma in situ of anal canal (ICD-10 - Z84.89) Dec, Other Continue Zofran prn Pt to call if symptoms worsen [employer] Other 05-25-2022 History of Present illness Narrative* Queta Nathanael Devon, DO - 11/27/2021 2:00 PM EDT Subjective Patient ID: Leslie Ford is a 26 y.o. female. Chief Complaint Patient presents with [facility] 26 y.o. female presents to [facility]. History of anxiety and depression. Has [...] it ( July 2017) documented in [facility] [id number] History of Present illness Narrative* Dana Rosario [...] like me to do? documented in this encounterEvangelical Community [id number] History of Present illness Narrative* James Churchill PA-C - 12/05/2020 8:22 PM EDT Images from the original note were not included. Patient Name: [facility] Location: [place] Briceño [facility] [id number] Date Of : Date Of Visit: 1995 12/05/2020 MRN# Provider: [id number] James Churchill PA-C Chief Complaint Patient presents [...] urine from irritatingthe sores. ? Take an dadq-fat-fuucyrp pain medicine, such as acetaminophen (Tylenol), ibuprofen [...] Log into your personal health record on [email or web address] and enter E579 in the Education box to learn more about Genital Herpes: Care Instructions. Current as of: August 31, 2019 Content Version: 12.8 [employer]. Care instructions adapted under license by your healthcare professional. If you have questions about a medical condition or this instruction, always ask your healthcare professional. [employer] disclaims any warranty or liability for your use of this information. documented in this [id number] Instructions* Patient Instructions* James Churchill PA-C - [...] urine from irritatingthe sores. ? Take an bajm-vtg-anuiale pain medicine, such as acetaminophen (Tylenol), ibuprofen [...] Log into your personal health record on [email or web address] and enter E579 in the Education box to learn more about Genital Herpes: Care Instructions. Current as of: August 31, 2019 Content Version: 12.8 [employer]. Care instructions adapted under license by your healthcare professional. If you have questions about a medical condition or this instruction, always ask your healthcare professional. [employer] disclaims any warranty or liability for your use of this information. documented in this encounterColoradoHealthEvaluation + Plan note No data available for this section General Surgery [facility] note* Diagnosis Vaginal sore- Primary documented in this encounter [facility] note* Diagnosis Anxiety- Primary Anxiety state, unspecified [facility] Diagnosis Anxiety- Primary Anxiety state, unspecified Hypotension, unspecified hypotension type documented in this encounter [facility] note* Diagnosis Anxiety- Primary Anxiety state, unspecified documented in this encounter [facility] general Narrative - Reported* Type Description Date Medical History IBS [employer] Other Hospital Discharge instructions No data available for this section General Surgery [place] Progress note No data available for this section General Surgery [place] Summary Purpose Family History No Family History Records FoundNo Family History Records FoundNo Family History Records FoundNo Family History Records FoundNo Family History Records FoundNo Family History Records FoundNo Family History Records FoundNo Family History Records Found Advance Directives No Advanced Directives Records FoundDocuments on File Type Date Recorded Patient Stapler Machine Expl anation Advance Directives and Living Will Documents on File Type Date Recorded Patient Stapler Machine Expl anation Power of It Systems Manager Additional Source Comments INFORMATION SOURCE (unrecogn ized section and content) DATE CREATED AUTHOR 12/30/2017 [facility] DATE CREATED AUTHOR AUTHOR'S ORGANIZ ATION 12/06/2020 [facility] DATE CREATED AUTHOR AUTHOR'S ORGANIZ ATION 02/16/2022 [facility] DATE CREATED AUTHOR AUTHOR'S ORGANIZ ATION 02/27/2022 [facility] DATE CREATED AUTHOR AUTHOR'S ORGANIZ ATION 11/14/2022 [facility] DATE CREATED AUTHOR AUTHOR'S ORGANIZ ATION 03/02/2023 [facility] DATE CREATED AUTHOR AUTHOR'S ORGANIZ ATION 07/05/2023 [facility] DATE CREATED AUTHOR AUTHOR'S ORGANIZ ATION 02/17/2024 [facility] dical Specialists EPIC Reason for Visit [...] Care Teams (unrecognized sec tion and content) 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 [address] [address] [place] [id number] PCP - General Family Medicine 11/27/21 [employer] Relationship Specialty Start Date End Date Queta Osorio, [address] [place] [phone] PCP - General Family Medicine 11/27/21 Rock [employer]her Relationship Specialty Start Date End Date Queta Osorio, [address] [place] [phone] PCP - General Family Medicine 11/27/21 FOR [...] BE BASED ON THE PRIMARY CLINICAL RECORDS. [facility] [employer] [facility]. provides no warranty or guarantee of the accuracy or completeness of information in this document.
[2024-03-10 19:06] LABS: Bilirubin Urine NEGATIVE (NEGATIVE); Blood Urine NEGATIVE (NEGATIVE); Clarity Urine CLEAR (CLEAR); Color Urine LT. YELLOW (YELLOW); Glucose Urine UA NEGATIVE (NEGATIVE); Ketones Urine NEGATIVE (NEGATIVE); Leukocyte Esterase Urine NEGATIVE (NEGATIVE); Nitrite Urine NEGATIVE (NEGATIVE); Protein Urine NEGATIVE (NEG/TRACE); Specific Gravity Urine 1.015 (1.005-1.025); Urobilinogen Urine 0.2 EU/dL (0.2-1.0)
[2024-03-10 19:07] LABS: Urine Microscopic Indicated NO
== END 2024-03-10 21:04 | disposition home or self-care (01) ==
PROVIDERS: Physician Assistant; Emergency Provider Student in an Organized Health Care Education/Training Program; PCP Family Medicine
DX: O46.92 Antepartum hemorrhage, unspecified, second trimester (principal); Z3A.18 18 weeks gestation of pregnancy
CPT/HCPCS: 76815; 76817; 81003; 99284

== ENCOUNTER 2024-05-26 11:12 | Outpatient (OUT) | payer OTHER, SELFPAY ==
--- NOTE | 2024-05-26 11:12 | US_ITS ---
[address] [address] Patient Name: KISHAN RAMSEY MRN: [id number] date: 1995 Sex: F Assigned Patient Location: US Current Patient Location: US Accession/Order Number: [id number] Exam Date: 05/26/2024 11:17 Report Date: 05/27/2024 04:58 At the request of: KATELYN DUVALL Procedure: US OB growth EXAMINATION: US OB growth HISTORY: HISTORY OF MISCARRIAGE Z87.59 COMPARISON: Ultrasound OB transvaginal 01/01/2024 FINDINGS: Heart Rate: 143.62 bpm Amniotic Fluid Volume: 18.2 cm; normal range Number: 1 Position: CEPHALIC BIOMETRY: BPD: 7.64 cm; 30 weeks 5 days; 79.70 % HC: 26.36 cm; 28 weeks 5 days; 7.50 % AC: 25.62 cm; 29 weeks 6 days; 59.60 % FL: 5.56 cm; 29 weeks 2 days; 34 % EFW: 1416.71 g; 47.30 % FL/AC: 21.69 FL/BPD: 72.67 HC/AC: 1.03 GESTATIONAL AGE: Age by EDC: 29 weeks 2 days SANCHO by EDC: 2024-08-09 Age by US: 29 weeks 5 days SANCHO by US: 2024-08-06 US/US OB growth IMPRESSION: 1. Single live intrauterine with growth detailed above. Electronically authenticated by: SHAINA SHOEMAKER Date: 05/27/2024 04:58
--- NOTE | 2024-05-26 11:12 | US_ITS ---
[address] [address] Patient Name: KISHAN RAMSEY MRN: [id number] date: 1995 Sex: F Assigned Patient Location: US Current Patient Location: Accession/Order Number: [id number] Exam Date: 05/26/2024 11:17 Report Date: 05/27/2024 04:56 At the request of: KATELYN DUVALL Procedure: US OB BPP w non-stress EXAMINATION: US OB BPP w non-stress HISTORY:HISTORY OF MISCARRIAGE Z87.59 COMPARISON: Ultrasound OB placenta 03/10/2024 TECHNIQUE: Ultrasound biophysical profile was performed in the radiology department. BREATHING MOVEMENTS: 2 GROSS BODY MOVEMENTS: 2 TONE: 2 QUALITATIVE AMNIOTIC FLUID VOLUME: 2 PRESENTATION: CEPHALIC HEART RATE: 143.62 bpm AMNIOTIC FLUID VOLUME: 18.15 cm GESTATIONAL AGE: 29 weeks 2 days US/US OB BPP w non-stress IMPRESSION: Total biophysical profile score: 8 Electronically authenticated by: SHAINA SHOEMAKER Date: 05/27/2024 04:56
--- OUTSIDE RECORDS SUMMARY | 2024-05-26 11:22 | XMS_ITS | CCD ---
Author Organization [facility] Care Team Providers Care Wet Silk Hanger Name Role Phone KIM SUTHERLAND Unavailable Unavailable WILLY CONKLIN Unavailable Unavailable HOMAR BELTRAN Unavailable Unavailable HOMAR BELTRAN Unavailable Unavailable No, Physician Primary Care Provider Unavailsuman e FINN, PHYSICIAN Primary Care Unavailable JAMES ALCAZAR Attending Unavailable Unavailable Primary Care Provider Unavailsuman e Wiley Osorio DO Primary Care Provider Bret Long Unavailable RICE RICE, WIELY WILEY M~[id number] Attending Unavailable RICE RICE, WILEY WILEY M~[id number] Primary Ca re Unavailable RICE RICE, WILEY WILEY M~[id number] Attending Unavailable RICE RICE, WILEY WILEY M~[id number] Primary Ca re Unavailable RICE RICE, WILEY WILEY M~[id number] Attending Unavailable RICE RICE, WILEY WILEY M~[id number] Primary Ca re Unavailable RICE RICE, WILEY WILEY M~[id number] Attending Unavailable RICE RICE, WILEY WILEY M~[id number] Primary Ca re Unavailable RICE RICE, WILEY WILEY M~[id number] Referring Unavailable RICE RICE, WILEY WILEY M~[id number] Primary Ca re Unavailable ITA REYES Admitting Unavailable Shaina Campos Consulting Unavailable ITA REYES Attending Unavailable [...] Admitting Unavailab Homar Mcgowan Primary Care Unavailable BERTO SMITH Referring Unavailable HOMAR BELTRAN Primary Care Unavailable SENAIT MARTIN Attending Unavailable BERTO SMITH Referring Unavailable HOMAR BELTRAN Primary Care Unavailable Homar Beltran MD Primary Care Provider [phone] LITTLE CHRISTIE Attending Unavailable BERTO SMITH Attending Unavailable LITLTE CHRISTIE Attending Unavailable BERTO SMITH Attending Unavailable LITTLE CHRISTIE Attending Unavailable BERTO SMITH Attending Unavailable Allergies Allergy Classification Reported Allergen(s) Allergy Type Date of Onset Reaction(s) Facility (1 source) No Known Medication Allergies; Translations: [No Known Medication Allergies] Propensity to adverse reactions (disorder) [facility] Repository Medications Current Medications Medication Drug Class(es) Dates Sig (Normalized) Sig (Original) aspirin 81 mg delayed release oral tablet (6 sources) Platelet Aggregation Inhibitor, Nonsteroidal Anti-inflammatory Drug Start: 03-23-2024 take 1 tablet by mouth in the morning aspirin 81 MG EC tablet Take 81 mg by mouth in the morning. 03/23/2024 Active busPIRone hydrochloride 10 mg oral tablet (5 [...] Start: 11-16-2020 norethindrone (MICRONOR) 0.35 mg tablet omeprazole 20 mg delayed release oral capsule (7 sources) Proton Pump Inhibitor Start: 12-31-2023 End: 04-29-2024 take 1 capsule by mouth before mealtime omeprazole (PriLOSEC) [address] capsule Indications: Gastroesophageal Reflux Disease , Heartburn Take 1 capsule (20 mg) by mouth in the morning. Take before meals. Do not crush or chew.. 30 capsule 3 12/31/2023 Active ondansetron 4 mg oral tablet (13 sources) Serotonin-3 Receptor Antagonist Start: 02-27-2023 Zofran 4 mg Tab Refills(s) 0 Start Date: 02/27/23 Status: Ordered Start: 01-02-2023 take 1 tablet by peter th every eight hours as needed ondansetron ODT (Zofran-ODT) 4 MG disintegrating tablet Take 4 mg by mouth every 8 (eight) hours if needed. 01/02/2023 Active Start: 12-05-2021 End: 01-19-2022 take 2 tablets [...] allow to dissolve Orally q8h prn Active Vit-Fe Fumarate-FA ( Plus/Iron) 27-1 MG tablet (7 sources) Start: 12-17-2023 End: 12-16-2024 take 1 tablet by mouth once daily Vit-Fe Fumarate-FA ( Plus/Iron) 27-1 MG tablet Indications: care, antepartum Take 1 tablet by mouth Daily 30 tablet 11 12/17/2023 12/16/2024 Active sertraline 25 mg oral tablet (3 [...] blood pressure; Translations: [Hypotension, unspecified] Episodic Other complications of (1 source) Supervision of with other poor reproductive or obstetric history, unspecified trimester; Translations: [Supervision of with other poor reproductive or obstetric history, unspecified trimester] Onset: 03-23-2024 Episodic Other complications of (1 source) Supervision of other high risk pregnancies, unspecified trimester; Translations: [Supervision of other high risk pregnancies, unspecified trimester] Onset: 03-23-2024 Episodic Other female genital disorders (1 source) [...] but less than 30 02-27-2023 Episodic Other and delivery including normal (4 sources) Second trimester ; Translations: [Encounter for supervision of normal , unspecified, second trimester] 04-11-2024 Episodic Other screening for suspected conditions (not mental disorders or infectious disease) (4 sources) Encounter for other specified screening; Translations: [Encounter for screening for cervical length] Onset: 03-23-2024 04-11-2024 Episodic Other upper respiratory infections (5 sources) Acute recurrent frontal sinusitis; Translations: [ACUTE RECURRENT FRONTAL SINUSITIS] Onset: 05-28-2022 Episodic Residual codes; unclassified (1 source) Chronic pain 02-23-2023 Episodic Residual codes; unclassified (1 source) Insomnia 02-23-2023 Episodic Residual codes; unclassified (1 source) 20 weeks gestation of ; Translations: [20 weeks gestation of ] Onset: 03-23-2024 Episodic Residual codes; unclassified (2 sources) Gestation period, 22 weeks; Translations: [22 weeks gestation of ] 04-11-2024 Episodic Residual codes; unclassified (5 sources) Gestation period, 26 weeks; Translations: [26 weeks gestation of ] Onset: 05-09-2024 05-09-2024 Episodic Residual codes; unclassified (5 sources) H/O: miscarriage; Translations: [Personal history of other complications of , childbirth and the puerperium] Onset: 05-09-2024 05-09-2024 Episodic Spondylosis; intervertebral disc disorders; other back problems (1 source) Neck pain 02-23-2023 Episodic Unclassified (4 sources) CONTACT W/AND (SUSP) EXPOS COVID-19; Translations: [CONTACT W/AND (SUSP) EXPOS COVID-19] Onset: 08-12-2022 Unclassified (3 sources) LOW BACK PAIN, UNSPECIFIED; Translations: [LOW BACK PAIN, UNSPECIFIED] Onset: 05-26-2022 Unclassified (1 source) history of stillbirth 27weeks Onset: 03-23-2024 Past or Other Problems Problem Classification Problem [...] Test Name Value Interpretation Reference Range Facility Urinalysis macro (dipstick) panel (U)on 05-09-2024 Bilirubin, UA Positive Negative - 4(70) +++ mg/dL [facility] Comment on above: small Blood, UA Negative Negative - 50 Angel Luis/mcL [facility] Clarity, UA Clear [facility] Color, UA Miryam [facility] Glucose, UA Negative Negative - 1999(110) ++++ mg/dL [facility] Interpretation and review of laboratory results Abnormal [facility] Ketones, UA Positive Negative - 160(16) ++++ mg/dL [facility] Comment on above: trace Leukocytes, UA Negative Negative - 500+++ Drew/mcL [facility] Nitrite, UA Negative Negative - Positive [facility] pH, UA 6 5 - 9 [facility] Protein, UA Positive Negative - 1999(20) ++++ mg/dL [facility] Comment on above: 30 mg Spec Grav, UA 1.03 1 - 1.03 [facility] Urobilinogen, UA 0.2 0.2 - 12 mg/dL [facility] Urinalysis macro (dipstick) panel (U)on 04-11-2024 Bilirubin, UA Negative Negative - 4(70) +++ mg/dL [facility] Blood, UA Negative Negative - 50 Angel Luis/mcL [facility] Clarity, UA Clear [facility] Color, UA Yellow [facility] Glucose, UA Negative Negative - 1999(110) ++++ mg/dL [facility] Interpretation and review of laboratory results Normal [facility] Ketones, UA Negative Negative - 160(16) ++++ mg/dL [facility] Leukocytes, UA Negative Negative - 500+++ Drew/mcL [facility] Nitrite, UA Negative Negative - Positive [facility] pH, UA 6.5 5 - 9 [facility] Protein, UA Negative Negative - 1999(20) ++++ mg/dL [facility] Spec Grav, UA 1.020 1 - 1.03 [facility] Urobilinogen, UA 0.2 0.2 - 12 mg/dL [facility] Facesheeton 03-02-2023 Facesheet [id number] CD:127 Normal [facility] Ambulatory Visit Summaryon 0 02-27-2023 Ambulatory Visit Summary LESLIE FORD :1995 Visit Date:02/27/2023 Ambulatory Visit Instructions Your Care Team Attending Physician - Gary MORRIS MD Primary Care Physician - BILL RIGGS, CLAUDE [...] History of pre-eclampsia Insomnia Migraines Overweight Normal [facility] RAD - Ultrasound Reporton RAD - Ultrasound Report [id number] D:127 Normal [facility] Physician Referralon 023 Physician Referral [id number] D:127 Normal [facility] INSULINon 11-08-2022 Insulin 7.7 uIU/mL Normal 2.6-24.9 [facility] Comment on above: Performed By: #### V ITAD, IRON #### [facility] [address] [place] [address] Dr. Chucho Jesus CBC AUTO DIFFon 11-07-2022 BASO # 0.0 103/ul Normal 0.0-0.1 [facility] Comment on above: Performed By: #### V ITAD, IRON #### [facility] [address] [place] [address] Dr. Chucho Jesus Basophils/100 WBC (Bld) 0.6 % Normal 0.2-2.0 [facility] Comment on above: Performed By: #### V ITAD, IRON #### [facility] [address] [address] [address] Chucho Jesus EO # 0.1 103/ul Normal 0.0-0.7 [facility] Comment on above: Performed By: #### V ITAD, IRON #### [facility] [address] [address] [address] Chucho Jesus Eosinophils/100 WBC (Bld) 1.4 % Normal 0.9-7.0 [facility] Comment on above: Performed By: #### V ITAD, IRON #### [facility] [address] [place] [address] Dr. Chucho Jesus Erythrocyte distribution width (RBC) [Ratio] 13.9 % Normal 11.0-15.0 [facility] Comment on above: Performed By: #### V ITAD, IRON #### [facility] [address] [place] [address] Dr. Chucho Jesus Hematocrit (Bld) [Volume fraction] 45.6 % Normal 36.0-48.0 [facility] Comment on above: Performed By: #### V ITAD, IRON #### [facility] [address] [place] [address] Dr. Chucho Jesus Hemoglobin (Bld) [Mass/Vol] 15.1 g/dL Normal 12.0-16.0 [facility] Comment on above: Performed By: #### V ITAD, IRON #### [facility] [address] [place] [address] Dr. Chucho Jesus IG # 0.01 10e3/ul Normal 0.00-0.03 [facility] Comment on above: Performed By: #### V ITAD, IRON #### [facility] [address] [place] [address] Dr. Chucho Jesus IG % 0.1 % Normal 0.0-0.5 [facility] Comment on above: Performed By: #### V ITAD, IRON #### [facility] [address] [place] [address] Dr. Chucho Jesus LYMPH # 1.9 103/ul Normal 1.2-3.8 [facility] Comment on above: Performed By: #### V ITAD, IRON #### [facility] [address] [place] [address] Dr. Chucho Jesus Lymphocytes/100 WBC (Bld) 26.3 % Normal 20.5-60.0 [facility] Comment on above: Performed By: #### V ITAD, IRON #### [facility] [address] [place] [address] Dr. Chucho Jesus MANUAL DIFF REQ NO Normal [facility] Comment on above: Performed By: #### V ITAD, IRON #### [facility] [address] [place] [address] Dr. Chucho Jesus MCH (RBC) [Entitic mass] 27.9 pg Normal 26.7-34.0 [facility] Comment on above: Performed By: #### V ITAD, IRON #### [facility] [address] [place] [address] Dr. Chucho Jesus MCHC (RBC) [Mass/Vol] 33.1 g/dL Normal 29.9-35.2 [facility] Comment on above: Performed By: #### V ITAD, IRON #### [facility] [address] [place] [address] Dr. Chucho Jesus MCV (RBC) [Entitic vol] 84.1 fL Normal 81.0-99.0 [facility] Comment on above: Performed By: #### V ITAD, IRON #### [facility] [address] [place] [address] Dr. Chucho Jesus MONO # 0.5 103/ul Normal 0.3-0.8 [facility] Comment on above: Performed By: #### V ITAD, IRON #### [facility] [address] [place] [address] Dr. Chucho Jesus Monocytes/100 WBC (Bld) 7.3 % Normal 1.7-12.0 [facility] Comment on above: Performed By: #### V ITAD, IRON #### [facility] [address] [place] [address] Dr. Chucho Jesus NEUT # 4.6 103/ul Normal 1.4-6.5 [facility] Comment on above: Performed By: #### V ITAD, IRON #### [facility] [address] [place] [address] Dr. Chucho Jesus Neutrophils/100 WBC (Bld) 64.3 % Normal 43.0-75.0 [facility] Comment on above: Performed By: #### V ITAD, IRON #### [facility] [address] [place] [address] Dr. Chucho Jesus Platelet mean volume (Bld) [Entitic vol] 10.9 fL Normal 9.5-13.5 [facility] Comment on above: Performed By: #### V ITAD, IRON #### [facility] [address] [address] [address] Chucho Jesus PLT 226 103/ul Normal 150-450 [facility] Comment on above: Performed By: #### V ITAD, IRON #### [facility] [address] [address] [address] Chucho Jesus RBC 5.42 106/ul Critically high 4.20-5.40 [facility] Comment on above: Performed By: #### V ITAD, IRON #### [facility] [address] [address] [address] Chucho Jesus WBC 7.2 103/ul Normal 4.0-11.0 [facility] Comment on above: Performed By: #### V ITAD, IRON #### [facility] [address] [place] [address] Dr. Chucho Jesus FREE THYROXINE INDEX T7on FTI 3.29 Normal 1.30-4.50 [facility] Comment on above: Performed By: #### V ITAD, IRON #### [facility] [address] [place] [address] Dr. Chucho Jesus T3U 35.0 % Normal 30.0-39.0 [facility] Comment on above: Performed By: #### V ITAD, IRON #### [facility] [address] [place] [address] Dr. Chucho Jesus T4 [Mass/Vol] 9.40 ug/dL Normal 4.80-13.90 [facility] Comment on above: Performed By: #### V ITAD, IRON #### [facility] [address] [place] [address] Dr. Chucho Jesus GLYCOHEMOGLOBIN A1Con 2022 ADA RECOMMENDATION SEE BELOW Normal [facility] Comment on above: Result Comment: ADA RECOMMENDED LIMIT 4.0 - 6.0 ADA THERAPEUTIC TARGET < 7.0 ACTION SUGGESTED > 7.0 Performed By: #### A 1C #### [facility] [address] [place] [address] Dr. Chucho Jesus Glucose [Mass/Vol] 94 mg/dL Normal [facility] Comment on above: Performed By: #### A 1C #### [facility] [address] [address] [address] Chucho Jesus HbA1c (Bld) [Mass fraction] 4.9 % Normal 4.5-6.2 [facility] Comment on above: Performed By: #### A 1C #### [facility] [address] [address] [address] Chucho Jesus IRONon 11-07-2022 Iron [Mass/Vol] 81.0 ug/dL Normal 50.0-170.[address] [facility] Comment on above: Performed By: #### V ITAD, IRON #### [facility] [address] [address] [address] Chucho Jesus LIPID PROFILEon 11-07-2022 CHOL-HDL RATIO NORM SEE BELOW Normal [facility] Comment on above: Result Comment: 3.3 - 4.4 LOW RISK 4.4 - 7.1 AVERAGE RISK 7.1 - 11.0 MODERATE RISK >11.0 HIGH RISK Performed By: #### V ITAD, IRON #### [facility] [address] [address] [address] Chucho Jesus Cholesterol [Mass/Vol] 126 mg/dL Normal <=200 [facility] Comment on above: Performed By: #### V ITAD, IRON #### [facility] [address] [address] [address] Chucho Jesus Cholesterol in HDL [Mass/Vol] 38 mg/dL Critically low 40-60 [facility] Comment on above: Performed By: #### V ITAD, IRON #### [facility] [address] [address] [address] Chucho Jesus Cholesterol in LDL [Mass/Vol] 79.4 mg/dL Normal [facility] Comment on above: Performed By: #### V ITAD, IRON #### [facility] [address] [address] [address] Chucho Jesus Cholesterol.total/C holesterol in HDL [Mass ratio] 3.3 {ratio} Normal [facility] Comment on above: Performed By: #### V ITAD, IRON #### [facility] [address] [address] [address] Chucho Jesus HDL NORMAL > or = 60 mg/dl - LO W CARDIOVASCULAR RISK <40 mg/dl - HIGH CARDIOVASCULAR RISK Normal [facility] Comment on above: Performed By: #### V ITAD, IRON #### [facility] [address] [address] [address] Chucho Jesus LDL CALC NORMAL SEE BELOW Normal [facility] Comment on above: Result Comment: <100 mg/dl OPTIMAL 100 - 129 mg/dl NEAR OR ABOVE OPTIMAL 130 - 159 mg/dl BORDERLINE HIGH 160 - 189 mg/dl HIGH >190 mg/dl VERY HIGH Performed By: #### V ITAD, IRON #### [facility] [address] [place] [address] Dr. Chucho Jesus Triglyceride [Mass/Vol] 43 mg/dL Normal <=150 [facility] Comment on above: Performed By: #### V ITAD, IRON #### [facility] [address] [place] [address] Dr. Chucho Jesus VLDL CALC 8.6 mg/dL Normal [facility] Comment on above: Performed By: #### V ITAD, IRON #### [facility] [address] [place] [address] Dr. Chucho Jesus PROF 14(COMP METB)on 023 Albumin [Mass/Vol] 4.2 g/dL Normal 3.4-5.0 [facility] Comment on above: Performed By: #### V ITAD, IRON #### [facility] [address] [place] [address] Dr. Chucho Jesus Albumin/Globulin [Mass ratio] 1.1 {ratio} Normal [facility] Comment on above: Performed By: #### V ITAD, IRON #### [facility] [address] [place] [address] Dr. Chucho Jesus ALP [Catalytic activity/Vol] 93 U/L Normal 46-116 [facility] Comment on above: Performed By: #### V ITAD, IRON #### [facility] [address] [place] [address] Dr. Chucho Jesus ALT [Catalytic activity/Vol] 16 U/L Normal 14-59 [facility] Comment on above: Performed By: #### V ITAD, IRON #### [facility] [address] [place] [address] Dr. Chucho Jesus Anion gap [Moles/Vol] 14.3 mmol/L Normal [facility] Comment on above: Performed By: #### V ITAD, IRON #### [facility] [address] [place] [address] Dr. Chucho Jesus AST [Catalytic activity/Vol] 16 U/L Normal 15-37 [facility] Comment on above: Performed By: #### V ITAD, IRON #### [facility] [address] [place] [address] Dr. Chucho Jesus Bilirubin [Mass/Vol] 1.0 mg/dL Normal 0.2-1.0 [facility] Comment on above: Performed By: #### V ITAD, IRON #### [facility] [address] [place] [address] Dr. Chucho Jesus Calcium [Mass/Vol] 9.4 mg/dL Normal 8.5-10.1 [facility] Comment on above: Performed By: #### V ITAD, IRON #### [facility] [address] [place] [address] Dr. Chucho Jesus Chloride [Moles/Vol] 103 mmol/L Normal 98-107 [facility] Comment on above: Performed By: #### V ITAD, IRON #### [facility] [address] [place] [address] Dr. Chucho Jesus CO2 [Moles/Vol] 24.9 mmol/L Normal 21.0-32.0 [facility] Comment on above: Performed By: #### V ITAD, IRON #### [facility] [address] [place] [address] Dr. Chucho Jesus Creatinine [Mass/Vol] 0.68 mg/dL Normal 0.55-1.02 [facility] Comment on above: Performed By: #### V ITAD, IRON #### [facility] [address] [address] [address] Chucho Jesus EGFR-AF VENEZUELAN >60 Normal >=60 [facility] Comment on above: Performed By: #### V ITAD, IRON #### [facility] [address] [address] [address] Chucho Jesus EGFR-NON AF VENEZUELAN >60 Normal >=60 [facility] Comment on above: Performed By: #### V ITAD, IRON #### [facility] [address] [address] [address] Chucho Jesus Globulin (S) [Mass/Vol] 3.9 g/dL Normal [facility] Comment on above: Performed By: #### V ITAD, IRON #### [facility] [address] [address] [address] Chucho Jesus Glucose [Mass/Vol] 89 mg/dL Normal 74-106 [facility] Comment on above: Performed By: #### V ITAD, IRON #### [facility] [address] [address] [address] Chucho Jesus Potassium [Moles/Vol] 4.2 mmol/L Normal 3.5-5.1 [facility] Comment on above: Performed By: #### V ITAD, IRON #### [facility] [address] [address] [address] Chucho Jesus Protein [Mass/Vol] 8.1 g/dL Normal 6.4-8.2 [facility] Comment on above: Performed By: #### V ITAD, IRON #### [facility] [address] [address] [address] Chucho Jesus Sodium [Moles/Vol] 138 mmol/L Normal 136-145 [facility] Comment on above: Performed By: #### V ITAD, IRON #### [facility] [address] [address] [address] Chucho Jesus Urea nitrogen [Mass/Vol] 9.0 mg/dL Normal 7.0-18.0 [facility] Comment on above: Performed By: #### V ITAD, IRON #### [facility] [address] [address] [address] Chucho Jesus Urea nitrogen/Creatinine [Mass ratio] 13.2 mg/mg Normal [facility] Comment on above: Performed By: #### V ITAD, IRON #### [facility] [address] [place], [place] [address] Dr. Chucho Jesus TSHon 11-07-2022 TSH 1.668 uIU/mL Normal 0.358-3.740 [facility] Comment on above: Performed By: #### V ITAD, IRON #### [facility] [address] [address] [address] Chucho Jesus Covid-19 PCR (CVDTBH)on SARS-CoV-2 (COVID-19) RNA DMITRY+probe Ql (Unsp spec) Not detected Normal NOT DETECTED [facility] Comment on above: Result Comment: When [...] for this test is supported by the Operations Plant Attendant of Health and Human Service's declaration that [...] Performed By: #### V ITAD, IRON #### [facility] [address] [place] [address] Dr. Chucho Jesus Covid-19 PCR (CVDTBH)on SARS-CoV-2 (COVID-19) RNA DMITRY+probe Ql (Unsp spec) Not detected Normal NOT DETECTED [facility] Comment on above: Result Comment: When [...] for this test is supported by the Operations Plant Attendant of Health and Human Service's declaration that [...] longer be used). Performed By: #### C VDTB #### [facility] [address] [place] [address] Dr. Chucho Jesus INFLUENZA A AND B AGon 08-11 [facility] SEE BELOW Normal [facility] Comment on above: Result Comment: Nega tive for Flu A protein angiten. Infection due to Flu A cannot be ruled out. Flu A angiten in the sample may be below the detection limit of the test. Performed By: #### I NFLUAB #### [facility] [address] [place] [address] Dr. Chucho Jesus [facility] SEE BELOW Normal [facility] Comment on above: Result Comment: Nega tive for Flu B protein antigen. Infection due to Flu B cannot be ruled out. Flu B antigen in the sample may be below the detection limit of the test. Performed By: #### I NFLUAB #### [facility] [address] [place] [address] Dr. Chucho Jesus INFLUENZA A AG Negative Normal NEGATIVE SEE COMMENT [facility] Comment on above: Performed By: #### I NFLUAB #### [facility] [address] [place] [address] Dr. Chucho Jesus INFLUENZA B AG Negative Normal NEGATIVE SEE COMMENT [facility] Comment on above: Performed By: #### I NFLUAB #### [facility] [address] [address] [address] Chucho Jesus [facility] SARS-CoV-2 (COVID-19) RNA DMITRY+probe Ql (Unsp spec) Not detected Normal NOT DETECTED [facility] Comment on above: Result Comment: When [...] for this test is supported by the Operations Plant Attendant of Health and Human Service's declaration that [...] Performed By: #### V ITAD, IRON #### [facility] [address] [place] [address] Dr. Chucho Jesus INFLUENZA A AND B AGon 05-26 INFLUANEGH SEE BELOW Normal [facility] Comment on above: Result Comment: Nega tive for Flu A protein angiten. Infection due to Flu A cannot be ruled out. Flu A angiten in the sample may be below the detection limit of the test. Performed By: #### V ITAD, IRON #### [facility] [address] [place] [address] Dr. Chucho Jesus INFLUBNEG SEE BELOW Normal [facility] Comment on above: Result Comment: Nega tive for Flu B protein antigen. Infection due to Flu B cannot be ruled out. Flu B antigen in the sample may be below the detection limit of the test. Performed By: #### V ITAD, IRON #### [facility] [address] [place] [address] Dr. Chucho Jesus INFLUENZA A AG Negative Normal NEGATIVE SEE COMMENT [facility] Comment on above: Performed By: #### V ITAD, IRON #### [facility] [address] [address] [address] Chucho Jesus INFLUENZA B AG Negative Normal NEGATIVE SEE COMMENT [facility] Comment on above: Performed By: #### V ITAD, IRON #### [facility] [address] [address] [address] Chucho Jesus INTERNAL CONTROLS Within Normal Limits Normal Wi thin Normal Limits [facility] Comment on above: Performed By: #### V ITAD, IRON #### [facility] [address] [address] [address] Chucho Jesus ER URINE PROFILEon 2 Bilirubin Ql (U) Negative Normal NEGATIVE [facility] Comment on above: Performed By: #### V ITAD, IRON #### [facility] [address] [place] [address] Dr. Chucho Jesus Clarity (U) CLEAR Normal CLEAR [facility] Comment on above: Performed By: #### V ITAD, IRON #### [facility] [address] [place] [address] Dr. Chucho Jesus Color (U) YELLOW Normal YELLOW [facility] Comment on above: Performed By: #### V ITAD, IRON #### [facility] [address] [place] [address] Dr. Chucho BAHENA A micrscopic examination will be performed if indicated. Normal [facility] Comment on above: Performed By: #### V ITAD, IRON #### [facility] [address] [place] [address] Dr. Chucho Jesus Glucose Ql (U) Negative Normal NEGATIVE [facility] Comment on above: Performed By: #### V ITAD, IRON #### [facility] [address] [place] [address] Dr. Chucho Jesus Hemoglobin Ql (U) Negative Normal NEGATIVE [facility] Comment on above: Performed By: #### V ITAD, IRON #### [facility] [address] [place] [address] Dr. Chucho Jesus Ketones Ql (U) >=80 Abnormal NEGATIVE [facility] Comment on above: Performed By: #### V ITAD, IRON #### [facility] [address] [address] [address] Chucho Jesus LEUKOCYTES Negative Normal NEGATIVE [facility] Comment on above: Performed By: #### V ITAD, IRON #### [facility] [address] [address] [address] Chucho Jesus Nitrite Ql (U) Negative Normal NEGATIVE [facility] Comment on above: Performed By: #### V ITAD, IRON #### [facility] [address] [address] [address] Chucho Jesus pH (U) 6.0 [pH] Normal 5-9 [facility] Comment on above: Performed By: #### V ITAD, IRON #### [facility] [address] [place] [address] Dr. Chucho Jesus Protein (U) [Mass/Vol] 100 mg/dL Abnormal NEGATIVE/ TRACE [facility] Comment on above: Performed By: #### V ITAD, IRON #### [facility] [address] [place] [address] Dr. Chucho Jesus SPEC GRAVITY >=1.030 Abnormal 1.005-<=1.[address] [facility] Comment on above: Performed By: #### V ITAD, IRON #### [facility] [address] [place] [address] Dr. Chucho Jesus UR MICRO IND INDICATED Normal [facility] Comment on above: Performed By: #### V ITAD, IRON #### [facility] [address] [address] [address] Chucho Jesus Urobilinogen Qn (U) 0.2 {Chelsea'U}/dL Normal 0.2 - 1. 0 [facility] Comment on above: Performed By: #### V ITAD, IRON #### [facility] [address] [place] [address] Dr. Chucho Jesus URon 05-22-2022 , QUAL Negative Normal NEGATIVE [facility] Comment on above: Performed By: #### V ITAD, IRON #### [facility] [address] [address] [address] Chucho Jesus URINE MICROSCOPIC ONLYon BACTERIA NONE SEEN Normal NONE SEEN [facility] Comment on above: Performed By: #### V ITAD, IRON #### [facility] [address] [place] [address] Dr. Chucho Jesus Bacteria identified Cx Nom (U) NOT INDICATED Normal [facility] Comment on above: Performed By: #### V ITAD, IRON #### [facility] [address] [place] [address] Dr. Chucho Jesus CAST NONE SEEN Normal NONE SEEN [facility] Comment on above: Performed By: #### V ITAD, IRON #### [facility] [address] [place] [address] Dr. Chucho Jesus Crystals LM Nom (Urine sed) NONE SEEN Normal NONE SEEN [facility] Comment on above: Performed By: #### V ITAD, IRON #### [facility] [address] [place] [address] Dr. Chucho Jesus Epithelial cells LM Ql (Urine sed) FEW Abnormal NONE SEEN /RARE [facility] Comment on above: Performed By: #### V ITAD, IRON #### [facility] [address] [place] [address] Dr. Chucho Jesus MUCOUS MODERATE Abnormal NONE SEEN [facility] Comment on above: Performed By: #### V ITAD, IRON #### [facility] [address] [place] [address] Dr. Chucho Jesus RBC NONE SEEN Abnormal 0-2 [facility] Comment on above: Performed By: #### V ITAD, IRON #### [facility] [address] [place] [address] Dr. Chucho Jesus WBC NONE SEEN Normal NONE SEEN [facility] Comment on above: Performed By: #### V ITAD, IRON #### [facility] [address] [place] [address] Dr. Chucho Jesus XR LSPINE 2_3 VIEWSon [...] to prior CT study. Electronically authenticated by: SHAINA CAMPOS Date: 2022-05-22 12:28 Normal [facility] INSULINon 04-25-2022 Insulin 10.4 uIU/mL Normal 2.6-24.9 [facility] Comment on above: Performed By: #### V ITAD, IRON #### [facility] [address] [place] [address] Dr. Chucho Jesus CBC AUTO DIFFon 04-24-2022 BASO # 0.0 103/ul Normal 0.0-0.1 [facility] Comment on above: Performed By: #### C BC #### [facility] [address] [address] [address] Chucho Jesus Basophils/100 WBC (Bld) 0.6 % Normal 0.2-2.0 [facility] Comment on above: Performed By: #### C BC #### [facility] [address] [address] [address] Chucho Jesus EO # 0.1 103/ul Normal 0.0-0.7 [facility] Comment on above: Performed By: #### C BC #### [facility] [address] [address] [address] Chucho Jesus Eosinophils/100 WBC (Bld) 1.8 % Normal 0.9-7.0 [facility] Comment on above: Performed By: #### C BC #### [facility] [address] [place] [address] Dr. Chucho Jesus Erythrocyte distribution width (RBC) [Ratio] 12.9 % Normal 11.0-15.0 [facility] Comment on above: Performed By: #### C BC #### [facility] [address] [place] [address] Dr. Chucho Jesus Hematocrit (Bld) [Volume fraction] 45.6 % Normal 36.0-48.0 [facility] Comment on above: Performed By: #### C BC #### [facility] [address] [place] [address] Dr. Chucho Jesus Hemoglobin (Bld) [Mass/Vol] 14.7 g/dL Normal 12.0-16.0 [facility] Comment on above: Performed By: #### C BC #### [facility] [address] [place] [address] Dr. Chucho Jesus IG # 0.02 10e3/ul Normal 0.00-0.03 [facility] Comment on above: Performed By: #### C BC #### [facility] [address] [place] [address] Dr. Chucho Jesus IG % 0.3 % Normal 0.0-0.5 [facility] Comment on above: Performed By: #### C BC #### [facility] [address] [place] [address] Dr. Chucho Jesus LYMPH # 1.6 103/ul Normal 1.2-3.8 [facility] Comment on above: Performed By: #### C BC #### [facility] [address] [place] [address] Dr. Chucho Jesus Lymphocytes/100 WBC (Bld) 24.5 % Normal 20.5-60.0 [facility] Comment on above: Performed By: #### C BC #### [facility] [address] [place] [address] Dr. Chucho Jesus MANUAL DIFF REQ NO Normal [facility] Comment on above: Performed By: #### C BC #### [facility] [address] [place] [address] Dr. Chucho Jesus MCH (RBC) [Entitic mass] 28.4 pg Normal 26.7-34.0 [facility] Comment on above: Performed By: #### C BC #### [facility] [address] [address] [address] Chucho Jesus MCHC (RBC) [Mass/Vol] 32.2 g/dL Normal 29.9-35.2 [facility] Comment on above: Performed By: #### C BC #### [facility] [address] [address] [address] Chucho Jesus MCV (RBC) [Entitic vol] 88.2 fL Normal 81.0-99.0 [facility] Comment on above: Performed By: #### C BC #### [facility] [address] [place] [address] Dr. Chucho Jesus MONO # 0.5 103/ul Normal 0.3-0.8 [facility] Comment on above: Performed By: #### C BC #### [facility] [address] [place] [address] Dr. Chucho Jesus Monocytes/100 WBC (Bld) 7.4 % Normal 1.7-12.0 [facility] Comment on above: Performed By: #### C BC #### [facility] [address] [place] [address] Dr. Chucho Jesus NEUT # 4.4 103/ul Normal 1.4-6.5 [facility] Comment on above: Performed By: #### C BC #### [facility] [address] [place] [address] Dr. Chucho Jesus Neutrophils/100 WBC (Bld) 65.4 % Normal 43.0-75.0 [facility] Comment on above: Performed By: #### C BC #### [facility] [address] [place] [address] Dr. Chucho Jesus Platelet mean volume (Bld) [Entitic vol] 9.9 fL Normal 9.5-13.5 [facility] Comment on above: Performed By: #### C BC #### [facility] [address] [place] [address] Dr. Chucho Jesus PLT 225 103/ul Normal 150-450 [facility] Comment on above: Performed By: #### C BC #### [facility] [address] [address] [address] Chucho Jesus RBC 5.17 106/ul Normal 4.20-5.40 [facility] Comment on above: Performed By: #### C BC #### [facility] [address] [place] [address] Dr. Chucho Jesus WBC 6.7 103/ul Normal 4.0-11.0 [facility] Comment on above: Performed By: #### C BC #### [facility] [address] [place] [address] Dr. Chucho Jesus FREE THYROXINE INDEX T7on FTI 3.29 Normal 1.30-4.50 [facility] Comment on above: Performed By: #### T 7, TSH, LIPID, CMP #### [facility] [address] [place] [address] Dr. Chucho Jesus T3U 27.0 % Critically low 30.0-39.0 [facility] Comment on above: Performed By: #### T 7, TSH, LIPID, CMP #### [facility] [address] [place] [address] Dr. Chucho Jesus T4 [Mass/Vol] 12.20 ug/dL Normal 4.80-13.90 [facility] Comment on above: Performed By: #### T 7, TSH, LIPID, CMP #### [facility] [address] [place] [address] Dr. Chucho Jesus GLYCOHEMOGLOBIN A1Con 2021 ADA RECOMMENDATION SEE BELOW Normal [facility] Comment on above: Result Comment: ADA RECOMMENDED LIMIT 4.0 - 6.0 ADA THERAPEUTIC TARGET < 7.0 ACTION SUGGESTED > 7.0 Performed By: #### A 1C #### [facility] [address] [place] [address] Dr. Chucho Jesus Glucose [Mass/Vol] 105 mg/dL Normal [facility] Comment on above: Performed By: #### A 1C #### [facility] [address] [place] [address] Dr. Chucho Jesus HbA1c (Bld) [Mass fraction] 5.3 % Normal 4.5-6.2 [facility] Comment on above: Performed By: #### A 1C #### [facility] [address] [address] [address] Chucho Jesus IRONon 04-24-2022 Iron [Mass/Vol] 48.0 ug/dL Critically low 50.0-170.0 [facility] Comment on above: Performed By: #### V ITAD, IRON #### [facility] [address] [address] [address] Chucho Jesus LIPID PROFILEon 04-24-2022 CHOL-HDL RATIO NORM SEE BELOW Normal [facility] Comment on above: Result Comment: 3.3 - 4.4 LOW RISK 4.4 - 7.1 AVERAGE RISK 7.1 - 11.0 MODERATE RISK >11.0 HIGH RISK Performed By: #### V ITAD, IRON #### [facility] [address] [address] [address] Chucho Jesus Cholesterol [Mass/Vol] 184 mg/dL Normal <=200 [facility] Comment on above: Performed By: #### V ITAD, IRON #### [facility] [address] [address] [address] Chucho Jesus Cholesterol in HDL [Mass/Vol] 55 mg/dL Normal 40-60 [facility] Comment on above: Performed By: #### V ITAD, IRON #### [facility] [address] [address] [address] Chucho Jesus Cholesterol in LDL [Mass/Vol] 116.6 mg/dL Normal [facility] Comment on above: Performed By: #### V ITAD, IRON #### [facility] [address] [address] [address] Chucho Jesus Cholesterol.total/C holesterol in HDL [Mass ratio] 3.3 {ratio} Normal [facility] Comment on above: Performed By: #### V ITAD, IRON #### [facility] [address] [address] [address] Chucho Jesus HDL NORMAL > or = 60 mg/dl - LO W CARDIOVASCULAR RISK <40 mg/dl - HIGH CARDIOVASCULAR RISK Normal [facility] Comment on above: Performed By: #### V ITAD, IRON #### [facility] [address] [address] [address] Chucho Jesus LDL CALC NORMAL SEE BELOW Normal [facility] Comment on above: Result Comment: <100 mg/dl OPTIMAL 100 - 129 mg/dl NEAR OR ABOVE OPTIMAL 130 - 159 mg/dl BORDERLINE HIGH 160 - 189 mg/dl HIGH >190 mg/dl VERY HIGH Performed By: #### V ITAD, IRON #### [facility] [address] [address] [address] Chucho Jesus Triglyceride [Mass/Vol] 62 mg/dL Normal <=150 [facility] Comment on above: Performed By: #### V ITSONIYA, IRON #### [facility] [address] [place] [address] Dr. Chucho Jesus VLDL CALC 12.4 mg/dL Normal [facility] Comment on above: Performed By: #### V ITSONIYA, IRON #### [facility] [address] [address] [address] Chucho Jesus PROF 14(COMP METB)on 04-24- 022 Albumin [Mass/Vol] 3.7 g/dL Normal 3.4-5.0 [facility] Comment on above: Performed By: #### T 7, TSH, LIPID, CMP #### [facility] [address] [place] [address] Dr. Chucho Jesus Albumin/Globulin [Mass ratio] 0.9 {ratio} Normal [facility] Comment on above: Performed By: #### T 7, TSH, LIPID, CMP #### [facility] [address] [address] [address] Chucho Jesus ALP [Catalytic activity/Vol] 74 U/L Normal 46-116 [facility] Comment on above: Performed By: #### T 7, TSH, LIPID, CMP #### [facility] [address] [address] [address] Chucho Jesus ALT [Catalytic activity/Vol] 16 U/L Normal 14-59 [facility] Comment on above: Performed By: #### T 7, TSH, LIPID, CMP #### [facility] [address] [address] [address] Chucho Jesus Anion gap [Moles/Vol] 12.3 mmol/L Normal [facility] Comment on above: Performed By: #### T 7, TSH, LIPID, CMP #### [facility] [address] [address] [address] Chucho Jesus AST [Catalytic activity/Vol] 13 U/L Critically low 15-37 [facility] Comment on above: Performed By: #### T 7, TSH, LIPID, CMP #### [facility] [address] [address] [address] Chucho Jesus Bilirubin [Mass/Vol] 0.4 mg/dL Normal 0.2-1.0 [facility] Comment on above: Performed By: #### T 7, TSH, LIPID, CMP #### [facility] [address] [place] [address] Dr. Chucho Jesus Calcium [Mass/Vol] 8.9 mg/dL Normal 8.5-10.1 [facility] Comment on above: Performed By: #### T 7, TSH, LIPID, CMP #### [facility] [address] [place] [address] Dr. Chucho Jesus Chloride [Moles/Vol] 105 mmol/L Normal 98-107 [facility] Comment on above: Performed By: #### T 7, TSH, LIPID, CMP #### [facility] [address] [address] [address] Chucho Jesus CO2 [Moles/Vol] 26.6 mmol/L Normal 21.0-32.0 [facility] Comment on above: Performed By: #### T 7, TSH, LIPID, CMP #### [facility] [address] [place] [address] Dr. Chucho Jesus Creatinine [Mass/Vol] 0.68 mg/dL Normal 0.55-1.02 [facility] Comment on above: Performed By: #### T 7, TSH, LIPID, CMP #### [facility] [address] [place] [address] Dr. Chucho Jesus EGFR-AF VENEZUELAN >60 Normal >=60 [facility] Comment on above: Performed By: #### T 7, TSH, LIPID, CMP #### [facility] [address] [place] [address] Dr. Chucho Jesus EGFR-NON AF VENEZUELAN >60 Normal >=60 [facility] Comment on above: Performed By: #### T 7, TSH, LIPID, CMP #### [facility] [address] [place] [address] Dr. Chucho Jesus Globulin (S) [Mass/Vol] 4.3 g/dL Normal [facility] Comment on above: Performed By: #### T 7, TSH, LIPID, CMP #### [facility] [address] [place] [address] Dr. Chucho Jesus Glucose [Mass/Vol] 87 mg/dL Normal 74-106 [facility] Comment on above: Performed By: #### T 7, TSH, LIPID, CMP #### [facility] [address] [place] [address] Dr. Chucho Jesus Potassium [Moles/Vol] 3.9 mmol/L Normal 3.5-5.1 [facility] Comment on above: Performed By: #### T 7, TSH, LIPID, CMP #### [facility] [address] [place] [address] Dr. Chucho Jesus Protein [Mass/Vol] 8.0 g/dL Normal 6.4-8.2 [facility] Comment on above: Performed By: #### T 7, TSH, LIPID, CMP #### [facility] [address] [place] [address] Dr. Chucho Jesus Sodium [Moles/Vol] 140 mmol/L Normal 136-145 [facility] Comment on above: Performed By: #### T 7, TSH, LIPID, CMP #### [facility] [address] [place] [address] Dr. Chucho Jesus Urea nitrogen [Mass/Vol] 9.0 mg/dL Normal 7.0-18.0 [facility] Comment on above: Performed By: #### T 7, TSH, LIPID, CMP #### [facility] [address] [address] [address] Chucho Jesus Urea nitrogen/Creatinine [Mass ratio] 13.2 mg/mg Normal [facility] Comment on above: Performed By: #### T 7, TSH, LIPID, CMP #### [facility] [address] [address] [address] Chucho Jesus TSHon 04-24-2022 TSH 1.127 uIU/mL Normal 0.358-3.740 [facility] Comment on above: Performed By: #### T 7, TSH, LIPID, CMP #### [facility] [address] [address] [address] Chucho Jesus VITAMIN D 25 OHon 04-24-2022 VIT D 25-OH 35.2 ng/mL Normal [facility] Comment on above: Performed By: #### V ITAD, IRON #### [facility] [address] [place] [address] Dr. Chucho Jesus VIT D RANGES SEE BELOW Normal [facility] Comment on above: Result Comment: <20 ng/mL Vit D deficient 20 - <30 ng/mL Vit D insufficient 30 - 100 ng/mL Vit D sufficient >100 ng/mL Potential Toxicity Performed By: #### V ITAD, IRON #### [facility] [address] [place] [address] Dr. Chucho Jesus HCG ( test) Ql (U)O rdered By: James Churchill on 12-05-2020 Internal Control Pass [facility] Interpretation and review of laboratory results Normal [facility] POC , UrineOrdered By: James Churchill on 12-05-2020 HCG ( test) Ql (U) Negative Negative [facility] CTA CHEST WITH CONTRASTon CTA CHEST [...] and atelectasis. Interpreted by:ALLEN Andersonigned by:Ady Tran MD/Edited Result - FINAL Normal [facility] Basic Metabolic Profon 02-19 (cont.) Normal [facility] Comment on above: Result Comment: Aver age GFR for 20-29 years old: 116 mL/min/1.73sq mChronic Kidney Disease: <60 mL/min/1.73sq mKidney failure: <15 mL/min/1.73sq meGFR calculated using average adult body mass. Additional eGFR calculator available at:http://[email or web address]_crcl_2012.htm Performed By: #### C DP, BMP, TROPI ####[address] [place] [address] Anion gap 14 mmol/L Normal 03-22 [facility] Comment on above: Performed By: #### C DP, BMP, TROPI ####[address] [place] [address] BUN/CRE Ratio 13 Normal - [facility] Comment on above: Performed By: #### C DP, BMP, TROPI ####[address] [place] [address] Calcium 9.2 mg/dL Normal 8.6-10.4 [facility] Comment on above: Performed By: #### C DP, BMP, TROPI ####[address] [place] [address] Chloride 105 mmol/L Normal 98-107 [facility] Comment on above: Performed By: #### C DP, BMP, TROPI ####[address] [place] [address] CO2 23 mmol/L Normal 20-31 [facility] Comment on above: Performed By: #### C DP, BMP, TROPI ####[address] [place] [address] Creatinine 0.55 mg/dL Normal 0.50-0.90 [facility] Comment on above: Performed By: #### C DP, BMP, TROPI ####[address] [place] [address] eGFR (non-black) mL/min/{1.73_m2} Normal >60 [facility] Comment on above: Performed By: #### C DP, BMP, TROPI ####[address] [place] [address] Glucose mass conc 96 mg/dL Normal 70-99 [facility] Comment on above: Performed By: #### C DP, BMP, TROPI ####[address] [place] [address] Potassium molar conc 3.6 mmol/L Low 3.7-5.3 [facility] Comment on above: Performed By: #### C DP, BMP, TROPI ####[address] [place] [address] Sodium 142 mmol/L Normal 135-144 [facility] Comment on above: Performed By: #### C DP, BMP, TROPI ####[address] [place] [address] Staging: Normal [facility] Comment on above: Result Comment: Stag e 1: Some kidney damage normal GFRStage 2: Mild kidney damage GFR 60-89Stage 3: Moderate kidney damage GFR 30-59Stage 4: Severe kidney damage GFR 15-29Stage 5: Severe kidney damage GFR <15ESRD - chronic treatment by dialysis or transplantPerformed at [address] [place] [address] Performed By: #### C DP, BMP, TROPI ####[address] [place] [address] Urea nitrogen 7 mg/dL Normal 6-20 [facility] Comment on above: Performed By: #### C DEION, BMP, TROPI ####[address] [place] [address] CBC with Diffon 02-19-2017 Abs. Basophil 0.00 k/uL Normal 0.0-0.2 [facility] Comment on above: Result Comment: Perf ormed at [address] [place] [address] Performed By: #### C DEION, BMP, TROPI ####[address] [place] [address] Abs.Neutrophil (Seg) 7.10 k/uL Normal 1.8-8.0 [facility] Comment on above: Performed By: #### C DP, BMP, TROPI ####[address] [place] [address] Basophils/100 WBC Auto (Bld) 0 % Normal [facility] Comment on above: Performed By: #### C DP, BMP, TROPI ####[address] [place] [address] Eosinophils 0.30 10*3/uL Normal 0.0-0.4 [facility] Comment on above: Performed By: #### C DP, BMP, TROPI ####[address] [place] [address] Eosinophils/100 leukocytes 3 % Normal [facility] Comment on above: Performed By: #### C DP, BMP, TROPI ####[address] [place] [address] Erythrocyte distribution width Auto Ratio (RBC) 13.6 % Normal 12.1-15.2 [facility] Comment on above: Performed By: #### C DP, BMP, TROPI ####[address] [place] [address] Erythrocytes (RBC) 5.03 10*6/uL Normal 4.0-5.2 [facility] Comment on above: Performed By: #### C DP, BMP, TROPI ####[address] [place] [address] Hematocrit (HCT) 40.2 % Normal 36-46 [facility] Comment on above: Performed By: #### C DP, BMP, TROPI ####[address] [place] [address] Hemoglobin mass conc (Bld) 13.2 g/dL Normal 12.0-16.0 [facility] Comment on above: Performed By: #### C DP, BMP, TROPI ####[address] [place] [address] Lymphocytes 2.90 10*3/uL Normal 1.2-5.2 [facility] Comment on above: Performed By: #### C DP, BMP, TROPI ####[address] [place] [address] Lymphocytes/100 leukocytes 27 % Normal [facility] Comment on above: Performed By: #### C DP, BMP, TROPI ####[address] [place] [address] MCH 26.2 pg Normal 26-34 [facility] Comment on above: Performed By: #### C DP, BMP, TROPI ####[address] [place] [address] MCHC mass conc (RBC) 32.8 g/dL Normal 31-37 [facility] Comment on above: Performed By: #### C DP, BMP, TROPI ####[address] [place] [address] MCV 79.9 fL Low 80-100 [facility] Comment on above: Performed By: #### C DP, BMP, TROPI ####[address] [place] [address] Monocytes 0.60 10*3/uL Normal 0.0-1.0 [facility] Comment on above: Performed By: #### C DP, BMP, TROPI ####[address] , [place] [address] Monocytes/100 leukocytes 5 % Normal [facility] Comment on above: Performed By: #### C DP, BMP, TROPI ####[address] [place] [address] Neutrophil (Seg) 65 % Normal [facility] Comment on above: Performed By: #### C DP, BMP, TROPI ####[address] [place] [address] Platelet mean volume (PMV) 9.6 fL Normal 6.0-12.0 [facility] Comment on above: Performed By: #### C DP, BMP, TROPI ####[address] [place] [address] Platelets 278 10*3/uL Normal 140-450 [facility] Comment on above: Performed By: #### C DP, BMP, TROPI ####[address] [place] [address] WBC (Leukocytes) 10.8 10*3/uL Normal 4.5-13.5 [facility] Comment on above: Performed By: #### C DP, BMP, TROPI ####[address] [place] [address] Auto Diff Performed NOT REPORTED Normal [facility] Comment on above: Performed By: #### C DP, BMP, TROPI ####[address] [place] [address] Erythrocyte morphology NOT REPORTED Normal [facility] Comment on above: Performed By: #### C DP, BMP, TROPI ####[address] [place] [address] Platelets NOT REPORTED Normal [facility] Comment on above: Performed By: #### C DP, BMP, TROPI ####[address] [place] [address] WBC Morphology NOT REPORTED Normal [facility] Comment on above: Performed By: #### C DP, BMP, TROPI ####[address] [place] [address] ED Noteon 02-19-2017 HIM IP Note OR Biomedical Instrument Technician Normal [facility] ED Provider Noteon 7 HIM IP Note OR Biomedical Instrument Technician Normal [facility] Troponinon 02-19-2017 Troponin T.cardiac mass conc ug/L Normal <0.03 [facility] Comment on above: Result Comment: Trop onin T results cannot be compared to Troponin-I results. Performed By: #### C DP, BMP, TROPI ####[address] [place] [address] Troponin I.cardiac mass conc Normal [facility] Comment on above: Result Comment: Refe rence Range: <0.03 Within reference range. 0.03-0.09 Possible myocardial damage.Repeat at appropriate intervals to rule out chronic elevation. >= 0.10 Indicative of myocardial damage.Performed at [address] [place] [address] Performed By: #### C DP, BMP, TROPI ####Brittani Ni [address] [place] [address] Vital Signs Date Time Vital Sign Value Performing Clinician Facility 05-09-2024 11:44-0500 Body mass index (BMI) [Ratio] 33.28 kg/m2 Berto Luis DO Work Phone: [facility] 05-09-2024 11:44-0500 Body weight 90.72 kg Berto Luis DO Work Phone: [facility] 05-09-2024 11:44-0500 Diastolic blood pressure 64 mm[Hg] Berto Luis DO Work Phone: [facility] 05-09-2024 11:44-0500 Systolic blood pressure 118 mm[Hg] Berto Luis DO Work Phone: [facility] 04-11-2024 10:37-0400 Body mass index (BMI) [Ratio] 31.12 kg/m2 Little Christie PA Work Phone: [facility] 04-11-2024 10:37-0400 Body weight 84.82 kg Little Ezra PA Work Phone: [facility] 04-11-2024 10:37-0400 Diastolic blood pressure 68 mm[Hg] Little Agness PA Work Phone: [facility] 04-11-2024 10:37-0400 Systolic blood pressure 116 mm[Hg] Little Christie PA Work Phone: [facility] 02-27-2023 14:39-0400 Blood Pressure Location Gary MORRIS [facility] 02-27-2023 14:39-0400 Diastolic blood pressure 66 mm[Hg] Gary MORRIS [facility] 02-27-2023 14:39-0400 Heart rate 70 /min Gary MORRIS [facility] 02-27-2023 14:39-0400 Respiratory rate 16 /min Gary MORRIS [facility] 02-27-2023 14:39-0400 Systolic blood pressure 106 mm[Hg] Gary MORRIS [facility] 01-08-2022 08:09-0400 Body temperature 98.01 [degF] Wiley Rice DO Work Phone: [facility] 01-08-2022 08:09-0400 Body weight 75.75 kg Wiley Rice DO Work Phone: [facility] 01-08-2022 08:09-0400 Diastolic blood pressure 71 mm[Hg] Wiley Rice DO Work Phone: [facility] 01-08-2022 08:09-0400 Heart rate 98 /min Wiley Rice DO Work Phone: [facility] 01-08-2022 08:09-0400 Systolic blood pressure 112 mm[Hg] Wiley Rice DO Work Phone: [facility] 12-10-2021 14:45-0400 Body height 166.37 cm Bret Long Other [facility] Other 12-10-2021 14:45-0400 Body mass index (BMI) [Ratio] 26.55 kg/m2 Bret Long Other [facility] Other 12-10-2021 14:45-0400 Body weight 73.48 kg Bret Long Other [facility] Other 12-10-2021 14:45-0400 Diastolic blood pressure 72 mm[Hg] Bret Long Other [facility] Other 12-10-2021 14:45-0400 Systolic blood pressure 103 mm[Hg] Bret Long Other [facility] Other 11-27-2021 14:01-0400 Body temperature 98.4 [degF] Wiley Rice DO Work Phone: [facility] 11-27-2021 14:01-0400 Body weight 74.84 kg Wiley Rice DO Work Phone: [facility] 11-27-2021 14:01-0400 Diastolic blood pressure 64 mm[Hg] Wiley Rice DO Work Phone: [facility] 11-27-2021 14:01-0400 Heart rate 98 /min Wiley Rice DO Work Phone: [facility] 11-27-2021 14:01-0400 Systolic blood pressure 121 mm[Hg] Wiley Rice DO Work Phone: [facility] 12-05-2020 19:26-0400 Heart rate 106 /min James Breece PA-C Work Phone: [facility] 12-05-2020 19:25-0400 Body temperature 98.29 [degF] James Breece PA-C Work Phone: [facility] 12-05-2020 19:25-0400 Body weight 97.98 kg James Breece PA-C Work Phone: [facility] 12-05-2020 19:25-0400 Diastolic blood pressure 86 mm[Hg] James Breece PA-C Work Phone: [facility] 12-05-2020 19:25-0400 Respiratory rate 16 /min James Breece PA-C Work Phone: [facility] 12-05-2020 19:25-0400 SaO2% (BldA) [Mass fraction] 97 % James Breece PA-C Work Phone: [facility] 12-05-2020 19:25-0400 Systolic blood pressure 126 mm[Hg] James Breece PA-C Work Phone: [facility] Encounters Encounter Date Encounter Type Care Provider Facility Start: 05-24-2024 End: 05-24-2024 Bamboo flowsheet Little LOWRY Work Phone: [facility] Start: 05-24-2024 End: 05-24-2024 Bamboo flowsheet Little LOWRY Work Phone: [facility] Start: 05-09-2024 End: 05-09-2024 Bamboo flowsheet Berto Luis DO Work Phone: [facility] Start: 05-09-2024 End: 05-09-2024 Bamboo flowsheet Berto Luis DO Work Phone: [facility] Start: 05-09-2024 End: 05-09-2024 Office outpatient visit 15 minutes Berto Luis DO Work Phone: [facility] Comment on above: Second trimester pre gnancy; 26 weeks gestation of ; History of miscarriage Start: 05-09-2024 End: 05-09-2024 ambulatory BERTO LUIS Not Available Start: 04-11-2024 End: 04-11-2024 Bamboo flowsheet Little LOWRY Work Phone: [facility] Start: 04-11-2024 End: 04-11-2024 Bamboo flowsheet Little LOWRY Work Phone: [facility] Start: 04-11-2024 End: 04-11-2024 Office outpatient visit 15 minutes Little LOWRY Work Phone: [facility] Comment on above: Second trimester pre gnancy; 22 weeks gestation of ; Diabetes mellitus screening Start: 04-11-2024 End: 04-11-2024 ambulatory LITTLE CHRISTIE Not Available Start: 03-23-2024 End: 03-23-2024 ambulatory BERTO R LUIS [facility] Start: 03-14-2024 End: 03-14-2024 ambulatory BERTO LUIS Not Available Start: 02-15-2024 End: 02-15-2024 ambulatory LITTLE CHRISTIE Not Available Start: 01-20-2024 End: 01-20-2024 ambulatory BERTO SMITH Not Available Start: 01-01-2024 End: 01-01-2024 ambulatory LITTLE CHRISTIE Not Available Start: 12-17-2023 End: 12-17-2023 ambulatory LITTLE CHRISTIE Not Available Start: 02-27-2023 End: 02-28-2023 ambulatory Gary Howell ALEXANDRA Facility:[facility] Start: 02-27-2023 End: 02-27-2023 Patient encounter procedure Gary Howell [facility] Start: 02-23-2023 ambulatory Alexandr Bourgeois Facility:[facility] Start: 02-05-2023 ambulatory Gary MORRIS Facility:[facility] Start: 11-07-2022 End: 11-08-[address] HOMAR BELTRAN . Facility:[facility] Start: 08-14-2022 End: 08-14-[address] HOMAR BELTRAN . Facility:[facility] Start: 08-11-2022 End: 08-11-[address] HOMAR BELTRAN . Facility:[facility] Start: 07-16-[address] HOMAR BELTRAN . Facili ty:[facility] Start: 05-26-2022 End: 05-26-[address] HOMAR BELTRAN . Facility:[facility] Start: 05-22-2022 End: 05-22-2022 ambulatory ITA REYES Facility:[facility] Start: 04-24-2022 End: 04-25-[address] HOMAR BELTRAN . Facility:[facility] Start: 02-18-2022 ambulatory WILEY Huffman~[id number] YVONNE RICE [facility] Start: 02-12-2022 ambulatory WILEY Huffman~[id number] [facility] Start: 02-12-2022 End: 02-12-2022 Telemedicine consultation with patient Wiley Osorio DO Work Phone: [facility] Comment on above: Anxiety (Primary Dx) Start: 01-19-2022 Refill Luis Sanabria D O Work Phone: [facility] Start: 01-19-2022 Refill Luis Elly D O Work Phone: [facility] Start: 01-08-2022 End: 01-08-2022 ambulatory WILEY Huffman~[id number] YVONNE OSORIO [facility] Start: 01-08-2022 End: 01-08-2022 Office outpatient visit 25 minutes Wiley Huffman Rice DO Work Phone: [facility] Comment on above: Anxiety (Primary Dx) ; Hypotension, unspecified hypotension type Start: 01-08-2022 End: 01-08-2022 Patient encounter procedure Wiley Huffman Rice DO Work Phone: [facility] Start: 12-11-2021 End: 12-11-2021 ambulatory WILEY Huffman~[id number] [facility] Start: 12-10-2021 End: 12-10-2021 ambulatory Bret Long Other [facility] Other Start: 12-10-2021 Office outpatient ne w 45 minutes Bret Long [facility] Start: 11-27-2021 End: 11-27-2021 ambulatory WILEY Huffman~[id number] YVONNE OSORIO [facility] Start: 11-27-2021 End: 11-27-2021 Office outpatient new 30 minutes Wiley Huffman Rice DO Work Phone: [facility] Comment on above: Anxiety (Primary Dx) Start: 11-27-2021 End: 11-27-2021 Patient encounter procedure Wiley Huffman Rice DO Work Phone: [facility] Start: 11-25-2021 Telephone encounter Dana Kinsey [facility] Start: 12-05-2020 End: 12-05-2020 ambulatory PHYSICIAN NO [facility] Start: 12-05-2020 End: 12-05-2020 Office outpatient new 20 minutes James Churchill PA-C Work Phone: [facility] Comment on above: Vaginal sore (Primar y Dx) Start: 02-19-2017 End: 02-19-2017 Emergency department patient visit KIM SUTHERLAND [facility] Procedures Date Procedure Procedure Detail Performing Clinician Start: 05-09-2024 Urnls dip stick/tabl et rgnt non-auto w/o micrscp Berto Smith DO Work Phone: Start: 04-11-2024 Urnls dip stick/tabl et rgnt non-auto w/o micrscp Little LWORY Work Phone: Start: 11-27-2021 Adult depression scr eening assessment Wileyjuana Osorio DO Work Phone: Start: 12-05-2020 Urine test visual color cmprsn meths James Melizapipe Churchill PA-C Work Phone: Start: 02-19-2017 Ct [...] Treatment Date Care Activity Detail Author Start: 05-24-2024 End: 05-24-2024 Patient encounter procedure 05/24/2024 2:10 PM EST Routine [facility] [address] [place] [place] [address] Little Christie PA [address] [place] [address] Arrived [facility] Comment on above: Arrived Start: 05-23-2024 End: 05-23-2024 Patient encounter procedure 05/23/2024 1:50 PM EST Routine [facility] [address] [place] [phone] Little Christie PA [address] [place] [address] [facility] Start: 05-09-2024 End: 05-09-2025 US biophysical profile w non stress test US biophysical profile w non stress test Imaging Routine Second trimester 26 weeks gestation of History of miscarriage Expected: 05/09/2024 (Approximate), Expires: 05/09/2025 [facility] Work Phone: Comment on above: Expected: 05/09/2024 (Approximate), Expires: 05/09/2025 Start: 05-09-2024 End: 05-09-2025 US for [facility] Comment on above: Expected: 05/09/2024 (Approximate), Expires: 05/09/2025 Start: 05-09-2024 End: 05-09-2024 Patient encounter procedure [facility] Comment on above: Arrived Start: 04-11-2024 End: 04-11-2025 CBC panel - Blood by Automated count CBC Lab Routine Diabetes mellitus screening Expected: 04/11/2024 (Approximate), Expires: 04/11/2025 [facility] Work Phone: Comment on above: Expected: 04/11/2024 (Approximate), Expires: 04/11/2025 Start: 04-11-2024 End: 04-11-2025 Measurement of glucose 1 hour after glucose challenge for glucose tolerance test Glucose tolerance, 1 hour Lab Routine Diabetes mellitus screening Expected: 04/11/2024 (Approximate), Expires: 04/11/2025 [facility] Comment on above: Expected: 04/11/2024 (Approximate), Expires: 04/11/2025 Start: 04-11-2024 End: 04-11-2024 Patient encounter procedure 04/11/2024 10:30 AM EDT Routine [facility] [address] [place] [phone] Little Christie PA [address] [place] [address] Arrived [facility] Comment on above: Arrived Start: 03-06-2024 Influenza vaccination Influenza Vacc ine (#1) [facility] Start: 11-27-2022 Adolescent depressio n screening assessment Depression Screening [facility] Start: 03-06-2022 Influenza vaccination T [facility] Start: 02-07-2022 End: 02-07-2022 Patient encounter procedure 02/07/2022 Office Visit Family Medicine Wiley Osorio, DO [address] [place] [phone] [facility] Start: 12-19-2021 End: 12-19-2021 Patient encounter procedure 12/19/[address] [facility] Wiley Osorio, [address] [place] [phone] [facility] Start: 12-07-2021 COVID-19 Vaccine (3 - Booster for Moderna series) COVID-19 Vaccine (3 - Booster for Moderna series) [facility] Start: 11-27-2021 End: 11-27-2021 Patient encounter procedure 11/27/[address] [facility] Wiley Osorio, DO [address] [place] [phone] [facility] Start: 11-24-2021 Adolescent depressio n screening assessment Depression Screening [facility] Start: 11-24-2021 Hepatitis C screening Hepatitis C Sc reening [facility] Start: 11-24-2021 HIV screening HIV Screening [facility] Start: 11-24-2021 Social Influencers o f Health Screening Social Influencers of Health Screening [facility] Start: 03-06-2021 Influenza vaccination Sequenti al Influenza Vaccine (Season Ended) [facility] Start: 2017 Screening for malign ant neoplasm of cervix Cervical Cancer Screening: Pap Smear [facility] Start: 2015 DTaP,Tdap,and Td Vac cines (1 - Tdap) DTaP,Tdap,and Td Vaccines (1 - Tdap) [facility] Start: 2014 Hepatitis C screening Hepatitis C Sc reening [facility] Start: 2011 HIV screening HIV Screening [facility] Start: 2008 COVID-19 Vaccine (1) COVID-19 Vaccin e (1) [facility] Start: 2008 Depression screening using PHQ-9 (Patient Health Questionnaire 9) score Depression Screening (PHQ9) [facility] Start: 2007 HPV Vaccines (1 - 2- dose series) HPV Vaccines (1 - 2-dose series) [facility] Start: 2007 Vaccination for april n papillomavirus HPV Vaccines (1 - 2-dose series) [facility] Start: 2001 COVID-19 Vaccine (1) COVID-19 Vaccin e (1) [facility] Start: 1999 History and physical examination, annual for health maintenance Wellness Visit [facility] Start: 1996 Screening for Chlamy marilee trachomatis Chlamydia Screening [facility] Start: 1996 Screening for malign ant neoplasm of cervix Pap Smear [facility] Start: 1996 Tetanus vaccination Tetanus: Every 1 0yrs [facility] Chlamydia trachomati s rRNA assay Chlamydia/GC/Trichomon as Amplified RNA Microbiology Routine Vaginal sore Ordered: 12/05/2020 [facility] Comment on above: Ordered: 12/05/2020 HSV by PCR Superfici al Site HSV by PCR Superficial Site Lab Routine Vaginal sore Ordered: 12/05/2020 [facility] Comment on above: Ordered: 12/05/2020 Neisseria gonorrhoea e nucleic acid detection Chlamydia/Gonorrhoeae Amplified RNA Microbiology Routine Vaginal sore Ordered: 12/05/2020 [facility] Comment on above: Ordered: 12/05/2020 Trichomonas vaginali s Amplified RNA Trichomonas vaginalis Amplified RNA Microbiology Routine Vaginal sore Ordered: 12/05/2020 [facility] Comment on above: Ordered: 12/05/2020 Immunizations Immunization Date Immunization Notes Care Provider Bj [email or web address] 07-09-2021 SARS-CoV-2 (COVID-19 ) [id number] vaccine Gary MORRIS [facility] 06-08-2021 SARS-CoV-2 (COVID-19 ) [id number] vaccine Gary MORRIS [facility] 04-10-2011 influenza virus vaccine, unspecified formulation Little LOWRY Work Phone: [facility] Payers Date Payer Category Payer Private Health Insurance [employer] [id number] 2021 Medicaid [id number] 2020 Medicaid [id number]. [id number] 2016 Unknown [id number] 2013 Unknown [id number] 1996 Unknown [id number] 2.16.840.1.328440.3.579.2. 903 1996 Unknown [id number] 2.16.840.1.927207.3.579.2. 1142 1996 Unknown [id number] 2.16.840.1.528017.3.579.2. 114 1996 Unknown [id number] 2.16.840.1.138118.3.579.2. 1142 1996 Unknown [id number] 2.16.840.1.696314.3.579.2. 1142 1996 Unknown [id number] 2.16.840.1.827123.3.579.2. 1143 1996 Unknown [id number] 2.16.840.1.913495.3.579.2. 593 1996 Unknown [id number] 2.16.840.1.978815.3.579.2. 593 1996 Unknown [id number] 2.16.840.1.078178.3.579.2. 593 1996 Unknown [id number] 2.16.840.1.564625.3.579.2. 593 1996 Unknown [id number] 2.16.840.1.060994.3.579.2. 593 1996 Unknown [id number] 2.16.840.1.158494.3.579.2. 593 1996 Unknown [id number] 2.16.840.1.839242.3.579.2. 593 1996 Unknown [id number] 2.16.840.1.963441.3.579.2. 727 1996 Unknown [id number] 2.16.840.1.780914.3.579.2. 1286 1996 Unknown [id number] 2.16.840.1.623102.3.579.2. 1286 1996 Unknown [id number] 2.16.840.1.569993.3.579.2. 1259 1996 Unknown [id number] 2.16.840.1.345673.3.579.2. 1259 1996 Unknown [id number] 2.16.840.1.849956.3.579.2. 1259 1996 Unknown [id number] 2.16.840.1.659633.3.579.2. 1259 1996 Unknown [id number] 2.16.840.1.890395.3.579.2. 1259 1996 Unknown [id number] 2.16.840.1.682966.3.579.2. 1259 1996 Unknown [id number] 2.16.840.1.278288.3.579.2. 1259 1960 Unknown [id number] 2.16.840.1.427327.3.579.2. 727 1959 Medicaid [id number] 1959 Self-pay 1959 Unknown [id number] 1959 Unknown [id number] 1959 Unknown [id number] Unknown [id number] 2.16.840.1.020964.3.579.2. 531 Social History Date Type Detail Facility Start: 12-05-2020 End: 02-27-2023 Tobacco smoking status NHIS Never smoker [facility] Start: 12-05-2020 End: 11-27-2021 Tobacco use and exposure Never used [facility] Start: 12-05-2020 Alcohol intake Current drinke r of alcohol (finding) [facility] Start: 12-05-2020 End: 11-27-2021 History SDOH Alcohol Frequency 1 [facility] Start: 12-05-2020 Alcohol Comment occ [facility] Start: 1996 [facility] Start: 11-17-2021 End: 02-12-2022 Exposure to SARS-CoV-2 (event) Not sure [facility] Tobacco smoking stat [facility] Tobacco smoking consumption unknown [facility] Start: 11-27-2021 End: 05-09-2024 Alcohol intake Lifetime non-drinker (finding) [facility] Start: 1995 Sex Assigned At Female T [facility] Start: 12-17-2023 Sex Assigned At F [facility] Tobacco smoking status Never [facility] Start: 03-28-2023 [facility] History of tobacco use Current smoker [facility] History of tobacco use Cigarette Smoker [facility] Start: 12-17-2023 History of Social function [facility] Start: 11-17-2023 [facility] Start: 01-19-2023 Gender identity Identifies as female gender (finding) [facility] Functional Status Date Assessment Result Facility 02-27-2023 Functional Status N/A General Greco fannie Kang Clinical Notes 12-05-2020 to 05-09-2024 Lucrecia Hein, SEBASTIAN - 05/09/2024 11:30 AM ESSENCE Mahan - 04/11/2024 10:30 AM Chema Osorio DO - 02/12/2022 7:30 AM EDTDana Rosario MA - 01/08/2022 8:00 AM EDT Note Date & Type Note Facility 05-09-2024 History of Present illness Narrative Reason for Appointment: Patient ID: Leslie Ford is a 29 y.o. female who presents for Routine Visit Patient presents today for Return OB appointment. MEDICATIONS Current Outpatient Medications Medication Instructions aspirin 81 mg, Oral, Daily RT omeprazole (PRILOSEC) 20 mg, Oral, Daily before breakfast, Do not crush or chew. ondansetron ODT (ZOFRAN-ODT) 4 mg, Oral, Every 8 hours PRN Vit-Fe Fumarate-FA ( Plus/Iron) 27-1 MG tablet 1 tablet, Oral, Daily ALLERGIES No Known Allergies PROBLEMS Active Ambulatory Problems Diagnosis Date Noted No Active Ambulatory Problems Resolved Ambulatory Problems Diagnosis Date Noted No Resolved Ambulatory Problems Past Medical History: Diagnosis Date Acne ADD (attention deficit disorder) Anxiety and depression (CMS/HCC) ASCUS of cervix with negative high risk HPV BMI 27.0-27.9,adult Cystic fibrosis carrier Dysmenorrhea Encounter for gynecological examination (general) (routine) without abnormal findings Herpes simplex type 1 infection Intrauterine device surveillance Irritable bowel syndrome LGSIL on Pap smear of cervix Menorrhagia HISTORY PAST MEDICAL HISTORY SOCIAL HISTORY Past Medical History: Diagnosis Date Acne ADD (attention deficit disorder) Anxiety and depression (CMS/HCC) ASCUS of cervix with negative high risk HPV BMI 27.0-27.9,adult Cystic fibrosis carrier Dysmenorrhea Encounter for gynecological examination (general) (routine) without abnormal findings Herpes simplex type 1 infection Intrauterine device surveillance Irritable bowel syndrome LGSIL on Pap smear of cervix Menorrhagia Social History Tobacco Use Smoking status: Former Types: Cigarettes Smokeless tobacco: Not on file Substance Use Topics Alcohol use: Never Drug use: Never FAMILY HISTORY Family History Problem Relation Name Age of Onset Hypothyroidism Mother Diabetes Sister Cancer Sister Thyroid Cancer Brother SURGICAL HISTORY History reviewed. No pertinent surgical history. REVIEW OF SYSTEMS Review of Systems: Review of Systems All other systems reviewed and are negative. OBJECTIVE Objective: Physical Exam Constitutional: Appearance: Normal appearance. She is well-developed. Cardiovascular: Rate and Rhythm: Normal rate and regular rhythm. Pulmonary: Effort: Pulmonary effort is normal. Breath sounds: Normal breath sounds. Abdominal: General: Bowel sounds are normal. There is no distension. Palpations: Abdomen is soft. Tenderness: There is no abdominal tenderness. There is no guarding or rebound. Musculoskeletal: General: No swelling. Normal range of motion. Right lower leg: No edema. Left lower leg: No edema. Neurological: Mental Status: She is alert and oriented to person, place, and time. Skin: General: Skin is warm and dry. Psychiatric: Mood and Affect: Mood normal. Behavior: Behavior normal. Vitals and nursing note reviewed. Exam conducted with a biological lab technician present. Vitals: Estimated body mass index is 33.28 kg/m as calculated from the following: Height as of 02/02/23: 5' 5 . Weight as of this encounter: 200 lb. BP: 118/64 Patient's last menstrual period was 11/03/2023. ASSESSMENT & PLAN ICD-10-CM 1. Second trimester Z34.92 POCT urinalysis dipstick manually resulted 2. 26 weeks gestation of Z3A.26 Return OB: Patient presents today for a routine obstetrics appointment. Patient is currently 26w6d . Patient states she is doing well but has complaints of being tired due to current . Patient has verbalizes frequent movement. labor precautions was discussed/given and patient was instructed to perform kick counts three times a day. Pt states she has not done the 1 hour glucose at this time. Order was given on 04/11/2024. Per MFM recommendations patient is to start growth scans every 4 weeks, NST/BILL weekly until 32 weeks, then NST bi-weekly. Orders Placed This Encounter Procedures POCT urinalysis dipstick manually resulted Follow Up: Patient is to return to office in 2 week for routine OB appointment. Documented by Lucrecia Hein MA on behalf of: Berto Smith DO documented in this encounter [facility] 04-11-2024 History of Present illness Narrative Reason for Appointment: Patient ID: Leslie Ford is a 29 y.o. female who presents for Routine Visit Patient presents today for Return OB appointment. MEDICATIONS Current Outpatient Medications Medication Instructions aspirin 81 mg, Oral, Daily RT omeprazole (PRILOSEC) 20 mg, Oral, Daily before breakfast, Do not crush or chew. ondansetron ODT (ZOFRAN-ODT) 4 mg, Oral, Every 8 hours PRN Vit-Fe Fumarate-FA ( Plus/Iron) 27-1 MG tablet 1 tablet, Oral, Daily ALLERGIES No Known Allergies PROBLEMS Active Ambulatory Problems Diagnosis Date Noted No Active Ambulatory Problems Resolved Ambulatory Problems Diagnosis Date Noted No Resolved Ambulatory Problems Past Medical History: Diagnosis Date Acne ADD (attention deficit disorder) Anxiety and depression (CMS/HCC) ASCUS of cervix with negative high risk HPV BMI 27.0-27.9,adult Cystic fibrosis carrier Dysmenorrhea Encounter for gynecological examination (general) (routine) without abnormal findings Herpes simplex type 1 infection Intrauterine device surveillance Irritable bowel syndrome LGSIL on Pap smear of cervix Menorrhagia HISTORY PAST MEDICAL HISTORY SOCIAL HISTORY Past Medical History: Diagnosis Date Acne ADD (attention deficit disorder) Anxiety and depression (CMS/HCC) ASCUS of cervix with negative high risk HPV BMI 27.0-27.9,adult Cystic fibrosis carrier Dysmenorrhea Encounter for gynecological examination (general) (routine) without abnormal findings Herpes simplex type 1 infection Intrauterine device surveillance Irritable bowel syndrome LGSIL on Pap smear of cervix Menorrhagia Social History Tobacco Use Smoking status: Former Types: Cigarettes Smokeless tobacco: Not on file Substance Use Topics Alcohol use: Never Drug use: Never FAMILY HISTORY Family History Problem Relation Name Age of Onset Hypothyroidism Mother Diabetes Sister Cancer Sister Thyroid Cancer Brother SURGICAL HISTORY History reviewed. No pertinent surgical history. REVIEW OF SYSTEMS Review of Systems: Review of Systems Constitutional: Negative. HENT: Negative. Eyes: Negative. Respiratory: Negative. Cardiovascular: Negative. Gastrointestinal: Negative. Genitourinary: Negative. Musculoskeletal: Negative. Skin: Negative. Neurological: Negative. All other systems reviewed and are negative. Hematological: Negative. Endocrine: Negative. Allergic/Immunologic: Negative. OBJECTIVE Objective: Physical Exam Constitutional: Appearance: Normal appearance. She is normal weight. HENT: Head: Normocephalic. Cardiovascular: Rate and Rhythm: Normal rate. Pulses: Normal pulses. Pulmonary: Effort: Pulmonary effort is normal. Breath sounds: Normal breath sounds. Abdominal: Palpations: Abdomen is soft. Musculoskeletal: General: Normal range of motion. Neurological: General: No focal deficit present. Mental Status: She is alert and oriented to person, place, and time. Psychiatric: Mood and Affect: Mood normal. Behavior: Behavior normal. Thought Content: Thought content normal. Judgment: Judgment normal. Vitals and nursing note reviewed. Vitals: Estimated body mass index is 28.62 kg/m as calculated from the following: Height as of 02/02/23: 5' 5 . Weight as of 03/14/24: 172 lb. BP: Patient's last menstrual period was 11/03/2023. ASSESSMENT & PLAN ICD-10-CM 1. Second trimester Z34.92 POCT urinalysis dipstick manually resulted 2. 22 weeks gestation of Z3A.22 POCT urinalysis dipstick manually resulted 3. Diabetes mellitus screening Z13.1 CBC Glucose tolerance, 1 hour Return OB: Patient presents today for a routine obstetrics appointment. Patient is currently 22w6d . Patient states she is doing well but has complaints of being tired due to current . Patient has verbalizes frequent movement. labor precautions was discussed/given and patient was instructed to perform kick counts three times a day. Orders Placed This Encounter Procedures CBC Glucose tolerance, 1 hour POCT urinalysis dipstick manually resulted Follow Up: Patient is to return to office in 2 week for routine OB appointment. Documented by Lucrecia Hein MA on behalf of: ESSENCE Haley documented in this encounter [facility] 02-27-2023 Note Chief Complaint consultation for back [...] with excisional biopsy under local anesthesia at [facility]; call with problems/questions. Follow-up No qualifying [...] Recorded SARS-CoV-2 (COVID-19) mRNA-1273 vaccine 06/08/2021 Recorded [facility] Comment on above: Result Comment: Elec [...] at later date. documented in this encounter [facility] 01-08-2022 History of Present illness Narrative [...] due to buspirone. documented in this encounter [facility] 12-10-2021 Evaluation note Encounter Date Diagnosis Assessment Notes Dec, Irritable bowel syndrome with diarrhea (ICD-10 - K58.0) Continue medications without change Dec, Epigastric pain (ICD-10 - R10.13) Dec, Chronic nausea (ICD-10 - R11.0) Dec, Family history of carcinoma in situ of anal canal (ICD-10 - Z84.89) Dec, Other Continue Cari moralesn Pt to call if symptoms worsen [facility] Other 05-25-2022 History of Present illness Narrative* Wiley M Yvonne, DO - 11/27/2021 2:00 PM EDT Subjective Patient ID: Leslie Ford is a 26 y.o. female. Chief Complaint Patient presents with [facility] 26 y.o. female presents to [...] it ( July 2017) [id number] History of Present illness Narrative* Dana Rosario [...] like me to do? documented in this [facility]06-02-2021 History of Present illness Narrative* James Churchill PA-C - 12/05/2020 8:22 PM EDT Images from the original note were not included. Patient Name: [facility] Location: [facility] [id number] Date Of : Date Of Visit: 1995 12/05/2020 MRN# Provider: [id number] James Churchill PA-C Chief Complaint Patient presents [...] urine from irritatingthe sores. ? Take an tdby-sud-tmfvayl pain medicine, such as acetaminophen (Tylenol), ibuprofen [...] Log into your personal health record on [email or web address] and enter E579 in the Education box to learn more about Genital Herpes: Care Instructions. Current as of: August 31, 2019 Content Version: 12.8 [employer]. Care instructions adapted under license by your healthcare professional. If you have questions about a medical condition or this instruction, always ask your healthcare professional. [employer] disclaims any warranty or liability for your use of this information. documented in this [id number] Instructions* Patient Instructions* James Churchill PA-C - [...] urine from irritatingthe sores. ? Take an xlmd-vff-qjckqzk pain medicine, such as acetaminophen (Tylenol), ibuprofen [...] Log into your personal health record on [email or web address] and enter E579 in the Education box to learn more about Genital Herpes: Care Instructions. Current as of: August 31, 2019 Content Version: 12.8 [employer]. Care instructions adapted under license by your healthcare professional. If you have questions about a medical condition or this instruction, always ask your healthcare professional. [employer] disclaims any warranty or liability for your use of this information. documented in this [facility] note No data available for this section General Surgery [place] Evaluation note* Diagnosis Vaginal sore- Primary [facility] Diagnosis Anxiety- Primary Anxiety state, unspecified [facility] Diagnosis Anxiety- Primary Anxiety state, unspecified Hypotension, unspecified hypotension type [facility] Diagnosis Anxiety- Primary Anxiety state, unspecified [facility]* Diagnosis Second trimester state, incidental 22 weeks gestation of Diabetes mellitus screening Screening for diabetes mellitus documented in this encounter [facility]* Diagnosis Second trimester state, incidental 26 weeks gestation of History of miscarriage Personal history of other genital system and obstetric disorders documented in this encounter [facility] Narrative - Reported* Type Description Date Medical History IBS [facility] Other Hospital Discharge instructions No data available for this section General Surgery [place] Progress note No data available for this section General Surgery [place] Summary Purpose Family History No Family History Records FoundNo Family History Records FoundNo Family History Records FoundNo Family History Records FoundNo Family History Records FoundNo Family History Records FoundNo Family History Records FoundNo Family History Records FoundNo Family History Records Found Advance Directives Documents on File Type Date Recorded Patient Identification Clerk Expl anation Advance Directives and Living Will Documents on File Type Date Recorded Patient Identification Clerk Expl anation Power of Bag Patcher Additional Source Comments INFORMATION SOURCE (unrecogn ized section and content) DATE CREATED AUTHOR 12/30/2017 [facility] DATE CREATED AUTHOR AUTHOR'S ORGANIZ ATION 12/06/2020 [facility] DATE CREATED AUTHOR AUTHOR'S ORGANIZ ATION 02/16/2022 [facility] DATE CREATED AUTHOR AUTHOR'S ORGANIZ ATION 02/27/2022 [facility] DATE CREATED AUTHOR AUTHOR'S ORGANIZ ATION 11/14/2022 [facility] DATE CREATED AUTHOR AUTHOR'S ORGANIZ ATION 03/02/2023 [facility] DATE CREATED AUTHOR AUTHOR'S ORGANIZ ATION 07/05/2023 [facility] DATE CREATED AUTHOR AUTHOR'S ORGANIZ ATION 03/25/2024 [facility] DATE CREATED AUTHOR AUTHOR'S ORGANIZ ATION 05/10/2024 [facility] EPIC Reason for Visit (unrecogniz ed section and content) Reason Comments Vaginal Pain around vagina, open sores, sometimes painful. x3 days. pt is breastsfeeding Reason Comments Establish Care Reason Comments Follow-up Bp is low now, Reason Onset Date Comments Med Refill 01/19/2022 Reason Comments Follow-up Reason Comments Routine Visit Ordered Prescriptions (unrec ognized section and content) [...] Care Teams (unrecognized sec tion and content) Wet Silk Hanger Relationship Specialty Start Date End Date Wiley Osorio DO [address] [place] [phone] PCP - General Family Medicine 11/27/21 Wet Silk Hanger Relationship Specialty Start Date End Date Wiley Osorio, DO [address] [place] [phone] PCP - General Family Medicine 11/27/21 Wet Silk Hanger Relationship Specialty Start Date End Date Wiley Osorio DO [address] [place] [phone] PCP - General Family Medicine 11/27/21 Wet Silk Hanger Relationship Specialty Start Date End Date Homar Beltran MD [address] [place] [phone] PCP - General Family Medicine 01/20/23 Wet Silk Hanger Relationship Specialty Start Date End Date Homar Beltran MD [address] [place] [phone] PCP - General [facility] Medicine 01/20/23 Wet Silk Hanger Relationship Specialty Start Date End Date Homar Beltran MD [address] [facility] [place] [phone] PCP - General [facility] 01/20/23 Wet Silk Hanger Relationship Specialty Start Date End Date Homar Beltran MD [address] [place] [facility] [phone] PCP - General Family Medicine 01/20/23 Wet Silk Hanger Relationship Specialty Start Date End Date Homar Beltran MD [address] [place] [facility] [phone] PCP - General Family Medicine 01/20/23 FOR RECORDS PERTAINING TO PATIENTS WHO ARE [...] BE BASED ON THE PRIMARY CLINICAL RECORDS. [facility] [employer] [facility]. provides no warranty or guarantee of the accuracy or completeness of information in this document.
[2024-05-26 12:14] VITALS: BP 114/71; PULSE 93
== END 2024-05-26 13:20 | disposition home or self-care (01) ==
LOC: US 11:16 → FBC 12:13
PROVIDERS: PCP Family Medicine; Visit Provider Obstetrics & Gynecology
DX: Z34.93 Encounter for supervision of normal pregnancy, unspecified, third trimester (principal); Z87.59 Personal history of other complications of pregnancy, childbirth and the puerperium; Z3A.29 29 weeks gestation of pregnancy
CPT/HCPCS: 76816; 76818

== ENCOUNTER 2024-06-04 07:31 | Outpatient (OUT) | payer OTHER, SELFPAY ==
--- OUTSIDE RECORDS SUMMARY | 2024-06-04 07:33 | XMS_ITS | CCD ---
Author Organization [facility] Care Team Providers Care Teacher Industrial Arts Name Role Phone KIM SUTHERLAND Unavailable Unavailable WILLY CONKLIN Unavailable Unavailable HOMAR BELTRAN Unavailable Unavailable HOMAR BELTRAN Unavailable Unavailable No, Physician Primary Care Provider Unavailabl e FINN, PHYSICIAN Primary Care Unavailable JAMES ALCAZAR Attending Unavailable Unavailable Primary Care Provider Unavailabl e Queta Osorio DO Primary Care Provider Bret Long Unavailable RICE RICE, QUETA QUETA M~[phone] Attending Unavailable RICE RICE, QUETA QUETA M~[id number] Primary Ca re Unavailable RICE RICE, QUETA QUETA M~[id number] Attending Unavailable RICE RICE, QUETA QUETA M~[id number] Primary Ca re Unavailable RICE RICE, QUETA QUETA M~[id number] Attending Unavailable RICE RICE, QUETA QUETA M~[id number] Primary Ca re Unavailable RICE RICE, QUETA QUETA M~[id number] Attending Unavailable RICE RICE, QUETA QUETA M~[id number] Primary Ca re Unavailable RICE RICE, QUETA QUETA M~[id number] Referring Unavailable RICE RICE, QUETA QUETA M~[id number] Primary Ca re Unavailable ITA REYES Admitting [...] Care Unavailable CLAUDE KHAN Primary Care Physician [phone] Gary MORRIS Attending Unavailable Alexandr Bourgeois Attending Unavailab Alexandr Ventura Admitting Unavailab Homar Mcgowan Primary Care Unavailable KATELYN SMITH Referring Unavailable HOMAR BELTRAN Primary Care Unavailable SENAIT MARTIN Attending Unavailable KATELYN SIMTH Referring Unavailable HOMAR BELTRAN Primary Care Unavailable Homar Beltran MD Primary Care Provider [phone] LITTLE CHRISTIE Attending Unavailable KATELYN SMITH Attending Unavailable LITTLE CHRISTIE Attending Unavailable LUIS, KATELYN Attending Unavailable LITTLE CHRISTIE Attending Unavailable KATELYN SMITH Attending Unavailable LITTLE CHRISTIE Attending Unavailable Allergies Allergy Classification Reported Allergen(s) Allergy Type Date of Onset Reaction(s) Facility (1 source) No Known Medication Allergies; Translations: [No Known Medication Allergies] Propensity to adverse reactions (disorder) [facility] Repository Medications Current Medications Medication [...] UA Positive Negative - 4(70) +++ mg/dL [facility] Comment on above: small Blood, UA Negative Negative - 50 Angel Luis/mcL [facility] Clarity, UA Clear [facility] Color, UA Miryam [facility] Glucose, UA Negative Negative - 1999(110) ++++ mg/dL [facility] Interpretation and review of laboratory results Abnormal [facility] Ketones, UA Positive Negative - 160(16) ++++ mg/dL [facility] Comment on above: trace Leukocytes, UA Negative Negative - 500+++ Drew/mcL [facility] Nitrite, UA Negative Negative - Positive [facility] pH, UA 6 5 - 9 [facility] Protein, UA Positive Negative - 1999(20) ++++ mg/dL [facility] Comment on above: 30 mg Spec Grav, UA 1.03 1 - 1.03 [facility] Urobilinogen, UA 0.2 0.2 - 12 mg/dL Critical access hospital Urinalysis macro (dipstick) panel (U)on 04-11-2024 Bilirubin, UA Negative Negative - 4(70) +++ mg/dL [facility] Blood, UA Negative Negative - 50 Angel Luis/mcL [facility] Clarity, UA Clear [facility] Color, UA Yellow [facility] Glucose, UA Negative Negative - 1999(110) ++++ mg/dL [facility] Interpretation and review of laboratory results Normal [facility] Ketones, UA Negative Negative - 160(16) ++++ mg/dL [facility] Leukocytes, UA Negative Negative - 500+++ Drew/mcL [facility] Nitrite, UA Negative Negative - Positive [facility] pH, UA 6.5 5 - 9 [facility] Protein, UA Negative Negative - 1999(20) ++++ mg/dL [facility] Spec Grav, UA 1.020 1 - 1.03 [facility] Urobilinogen, UA 0.2 0.2 - 12 mg/dL Critical [facility] hospital Facesheeton 03-02-2023 Facesheet [id number] CD:127 Normal [facility] Ambulatory Visit Summaryon 0 02-27-2023 Ambulatory Visit Summary LESLIE FORD :1995 Visit Date:02/27/2023 Ambulatory Visit Instructions Your Care Team Attending Physician - Gary MORRIS MD Primary Care Physician - CLAUDE KHAN CNP [...] History of pre-eclampsia Insomnia Migraines Overweight Normal [facility] RAD - Ultrasound Reporton RAD - Ultrasound Report [id number] D:127 Normal [facility] Physician Referralon 023 Physician Referral [id number] D:127 Normal [facility] INSULINon 11-08-2022 Insulin 7.7 uIU/mL Normal 2.6-24.9 [facility] Comment on above: Performed By: #### V ITAD, IRON #### [facility] [address] [place] [address] Dr. Chucho Jesus CBC AUTO DIFFon 11-07-2022 BASO # 0.0 103/ul Normal 0.0-0.1 [facility] Comment on above: Performed By: #### V ITAD, IRON #### [facility] [address] [place] [address] Dr. Chucho Jesus Basophils/100 WBC (Bld) 0.6 % Normal 0.2-2.0 [facility] Comment on above: Performed By: #### V ITAD, IRON #### [facility] [address] [place] [address] Dr. Chucho Jesus EO # 0.1 103/ul Normal 0.0-0.7 [facility] Comment on above: Performed By: #### V ITAD, IRON #### [facility] [address] [place] [address] Dr. Chucho Jesus Eosinophils/100 WBC (Bld) 1.4 % Normal 0.9-7.0 [facility] Comment on above: Performed By: #### V ITAD, IRON #### [facility] [address] [place] [address] Dr. Chucho Jesus Erythrocyte distribution width (RBC) [Ratio] 13.9 % Normal 11.0-15.0 [facility] Comment on above: Performed By: #### V ITAD, IRON #### [facility] [address] [place] [address] Dr. Chucho Jesus Hematocrit (Bld) [Volume fraction] 45.6 % Normal 36.0-48.0 [facility] Comment on above: Performed By: #### V ITAD, IRON #### [facility] [address] [place] [address] Dr. Chucho Jesus Hemoglobin (Bld) [Mass/Vol] 15.1 g/dL Normal 12.0-16.0 [facility] Comment on above: Performed By: #### V ITAD, IRON #### [facility] [address] [place] [address] Dr. Chucho Jesus IG # 0.01 10e3/ul Normal 0.00-0.03 [facility] Comment on above: Performed By: #### V ITAD, IRON #### [facility] [address] [place] [address] Dr. Chucho Jesus IG % 0.1 % Normal 0.0-0.5 [facility] Comment on above: Performed By: #### V ITAD, IRON #### [facility] [address] [place] [address] Dr. Chucho Jesus LYMPH # 1.9 103/ul Normal 1.2-3.8 [facility] Comment on above: Performed By: #### V ITAD, IRON #### [facility] [address] [place] [address] Dr. Chucho Jesus Lymphocytes/100 WBC (Bld) 26.3 % Normal 20.5-60.0 [facility] Comment on above: Performed By: #### V ITAD, IRON #### [facility] [address] [place] [address] Dr. Chucho Jesus MANUAL DIFF REQ NO Normal [facility] Comment on above: Performed By: #### V ITAD, IRON #### [facility] [address] [place] [address] Dr. Chucho Jesus MCH (RBC) [Entitic mass] 27.9 pg Normal 26.7-34.0 [facility] Comment on above: Performed By: #### V ITAD, IRON #### [facility] [address] [place] [address] Dr. Chucho Jesus MCHC (RBC) [Mass/Vol] 33.1 g/dL Normal 29.9-35.2 [facility] Comment on above: Performed By: #### V ITAD, IRON #### [facility] [address] [place] [address] Dr. Chucho Jesus MCV (RBC) [Entitic vol] 84.1 fL Normal 81.0-99.0 [facility] Comment on above: Performed By: #### V ITAD, IRON #### [facility] [address] [place] [address] Dr. Chucho Jesus MONO # 0.5 103/ul Normal 0.3-0.8 [facility] Comment on above: Performed By: #### V ITAD, IRON #### [facility] [address] [place] [address] Dr. Chucho Jesus Monocytes/100 WBC (Bld) 7.3 % Normal 1.7-12.0 [facility] Comment on above: Performed By: #### V ITAD, IRON #### [facility] [address] [place] [address] Dr. Chucho Jesus NEUT # 4.6 103/ul Normal 1.4-6.5 [facility] Comment on above: Performed By: #### V ITAD, IRON #### [facility] [address] [place] [address] Dr. Chucho Jesus Neutrophils/100 WBC (Bld) 64.3 % Normal 43.0-75.0 [facility] Comment on above: Performed By: #### V ITAD, IRON #### [facility] [address] [place] [address] Dr. Chucho Jesus Platelet mean volume (Bld) [Entitic vol] 10.9 fL Normal 9.5-13.5 [facility] Comment on above: Performed By: #### V ITAD, IRON #### [facility] [address] [address] [address] Chucho Jesus PLT 226 103/ul Normal 150-450 [facility] Comment on above: Performed By: #### V ITAD, IRON #### [facility] [address] [address] [address] Chucho Jesus RBC 5.42 106/ul Critically high 4.20-5.40 [facility] Comment on above: Performed By: #### V ITAD, IRON #### [facility] [address] [address] [address] Chucho Jesus WBC 7.2 103/ul Normal 4.0-11.0 [facility] Comment on above: Performed By: #### V ITAD, IRON #### [facility] [address] [place] [address] Dr. Chucho Jesus FREE THYROXINE INDEX T7on FTI 3.29 Normal 1.30-4.50 [facility] Comment on above: Performed By: #### V ITAD, IRON #### [facility] [address] [place] [address] Dr. Chucho Jesus T3U 35.0 % Normal 30.0-39.0 [facility] Comment on above: Performed By: #### V ITAD, IRON #### [facility] [address] [place] [address] Dr. Chucho Jesus T4 [Mass/Vol] 9.40 ug/dL Normal 4.80-13.90 [facility] Comment on above: Performed By: #### V ITAD, IRON #### [facility] [address] [place] [address] Dr. Chucho Jesus GLYCOHEMOGLOBIN A1Con 2022 ADA RECOMMENDATION SEE BELOW Normal [facility] Comment on above: Result Comment: ADA RECOMMENDED LIMIT 4.0 - 6.0 ADA THERAPEUTIC TARGET < 7.0 ACTION SUGGESTED > 7.0 Performed By: #### A 1C #### [facility] [address] [place] [address] Dr. Chucho Jesus Glucose [Mass/Vol] 94 mg/dL Normal [facility] Comment on above: Performed By: #### A 1C #### [facility] [address] [address] [address] Chucho Jesus HbA1c (Bld) [Mass fraction] 4.9 % Normal 4.5-6.2 [facility] Comment on above: Performed By: #### A 1C #### [facility] [address] [address] [address] Chucho Jesus IRONon 11-07-2022 Iron [Mass/Vol] 81.0 ug/dL Normal 50.0-170.0 [facility] Comment on above: Performed By: #### V ITAD, IRON #### [facility] [address] [place] [address] Dr. Chucho Jesus LIPID PROFILEon 11-07-2022 CHOL-HDL RATIO NORM SEE BELOW Normal [facility] Comment on above: Result Comment: 3.3 - 4.4 LOW RISK 4.4 - 7.1 AVERAGE RISK 7.1 - 11.0 MODERATE RISK >11.0 HIGH RISK Performed By: #### V ITAD, IRON #### [facility] [address] [address] [address] Chucho Jesus Cholesterol [Mass/Vol] 126 mg/dL Normal <=200 [facility] Comment on above: Performed By: #### V ITAD, IRON #### [facility] [address] [address] [address] Chucho Jesus Cholesterol in HDL [Mass/Vol] 38 mg/dL Critically low 40-60 [facility] Comment on above: Performed By: #### V ITAD, IRON #### [facility] [address] [address] [address] Chucho Jesus Cholesterol in LDL [Mass/Vol] 79.4 mg/dL Normal [facility] Comment on above: Performed By: #### V ITAD, IRON #### [facility] [address] [place] [address] Dr. Chucho Jesus Cholesterol.total/C holesterol in HDL [Mass ratio] 3.3 {ratio} Normal [facility] Comment on above: Performed By: #### V ITAD, IRON #### [facility] [address] [address] [address] Chucho Jesus HDL NORMAL > or = 60 mg/dl - LO W CARDIOVASCULAR RISK <40 mg/dl - HIGH CARDIOVASCULAR RISK Normal [facility] Comment on above: Performed By: #### V ITAD, IRON #### [facility] [address] [address] [address] Chucho Jesus LDL CALC NORMAL SEE BELOW Normal [facility] Comment on above: Result Comment: <100 mg/dl OPTIMAL 100 - 129 mg/dl NEAR OR ABOVE OPTIMAL 130 - 159 mg/dl BORDERLINE HIGH 160 - 189 mg/dl HIGH >190 mg/dl VERY HIGH Performed By: #### V ITAD, IRON #### [facility] [address] [address] [address] Chucho Jesus Triglyceride [Mass/Vol] 43 mg/dL Normal <=150 [facility] Comment on above: Performed By: #### V ITAD, IRON #### [facility] [address] [address] [address] Chucho Jesus VLDL CALC 8.6 mg/dL Normal [facility] Comment on above: Performed By: #### V ITAD, IRON #### [facility] [address] [address] [address] Chucho Jesus PROF 14(COMP METB)on 023 Albumin [Mass/Vol] 4.2 g/dL Normal 3.4-5.0 [facility] Comment on above: Performed By: #### V ITAD, IRON #### [facility] [address] [address] [address] Chucho Jesus Albumin/Globulin [Mass ratio] 1.1 {ratio} Normal [facility] Comment on above: Performed By: #### V ITAD, IRON #### [facility] [address] [address] [address] Chucho Jesus ALP [Catalytic activity/Vol] 93 U/L Normal 46-116 [facility] Comment on above: Performed By: #### V ITAD, IRON #### [facility] [address] [address] [address] Chucho Jesus ALT [Catalytic activity/Vol] 16 U/L Normal 14-59 [facility] Comment on above: Performed By: #### V ITAD, IRON #### [facility] [address] [address] [address] Chucho Jesus Anion gap [Moles/Vol] 14.3 mmol/L Normal [facility] Comment on above: Performed By: #### V ITAD, IRON #### [facility] [address] [address] [address] Chucho Jesus AST [Catalytic activity/Vol] 16 U/L Normal 15-37 [facility] Comment on above: Performed By: #### V ITAD, IRON #### [facility] [address] [place] [address] Dr. Cuhcho Jesus Bilirubin [Mass/Vol] 1.0 mg/dL Normal 0.2-1.0 [facility] Comment on above: Performed By: #### V ITAD, IRON #### [facility] [address] [place] [address] Dr. Chucho Jesus Calcium [Mass/Vol] 9.4 mg/dL Normal 8.5-10.1 [facility] Comment on above: Performed By: #### V ITAD, IRON #### [facility] [address] [place] [address] Dr. Chucho Jesus Chloride [Moles/Vol] 103 mmol/L Normal 98-107 [facility] Comment on above: Performed By: #### V ITAD, IRON #### [facility] [address] [address] [address] Chucho Jesus CO2 [Moles/Vol] 24.9 mmol/L Normal 21.0-32.0 [facility] Comment on above: Performed By: #### V ITAD, IRON #### [facility] [address] [place] [address] Dr. Chucho Jesus Creatinine [Mass/Vol] 0.68 mg/dL Normal 0.55-1.02 [facility] Comment on above: Performed By: #### V ITAD, IRON #### [facility] [address] [address] [address] Chucho Jesus EGFR-AF MONEGASQUE >60 Normal >=60 [facility] Comment on above: Performed By: #### V ITAD, IRON #### [facility] [address] [address] [address] Chucho Jesus EGFR-NON AF MONEGASQUE >60 Normal >=60 [facility] Comment on above: Performed By: #### V ITAD, IRON #### [facility] [address] [address] [address] Chucho Jesus Globulin (S) [Mass/Vol] 3.9 g/dL Normal [facility] Comment on above: Performed By: #### V ITAD, IRON #### [facility] [address] [address] [address] Chucho Jesus Glucose [Mass/Vol] 89 mg/dL Normal 74-106 [facility] Comment on above: Performed By: #### V ITAD, IRON #### [facility] [address] [address] [address] Chucho Jesus Potassium [Moles/Vol] 4.2 mmol/L Normal 3.5-5.1 [facility] Comment on above: Performed By: #### V ITAD, IRON #### [facility] [address] [address] [address] Chucho Jesus Protein [Mass/Vol] 8.1 g/dL Normal 6.4-8.2 [facility] Comment on above: Performed By: #### V ITAD, IRON #### [facility] [address] [address] [address] Chucho Jesus Sodium [Moles/Vol] 138 mmol/L Normal 136-145 [facility] Comment on above: Performed By: #### V ITAD, IRON #### [facility] [address] [address] [address] Chucho Jesus Urea nitrogen [Mass/Vol] 9.0 mg/dL Normal 7.0-18.0 [facility] Comment on above: Performed By: #### V ITAD, IRON #### [facility] [address] [address] [address] Chucho Jesus Urea nitrogen/Creatinine [Mass ratio] 13.2 mg/mg Normal [facility] Comment on above: Performed By: #### V ITAD, IRON #### [facility] [address] [address] [address] Chucoh Jesus TSHon 11-07-2022 TSH 1.668 uIU/mL Normal 0.358-3.740 [facility] Comment on above: Performed By: #### V ITAD, IRON #### [facility] [address] [address] [address] Chucho Jesus Covid-19 PCR (CVDTB[facility])on SARS-CoV-2 (COVID-19) RNA DMITRY+probe Ql (Unsp spec) Not detected Normal NOT DETECTED [facility] Comment on above: Result Comment: When [...] for this test is supported by the Counter [employer] of Health and Human Service's declaration that [...] Performed By: #### V ITAD, IRON #### [facility] [address] [address] [address] Chucho Jesus Covid-19 PCR (CVD[facility])on SARS-CoV-2 (COVID-19) RNA DMITRY+probe Ql (Unsp spec) Not detected Normal NOT DETECTED [facility] Comment on above: Result Comment: When [...] for this test is supported by the Counter [employer] of Health and Human Service's declaration that [...] used). Performed By: #### C VDTB #### [facility] [address] [place] [address] Dr. Chucho Jesus INFLUENZA A AND B AGon 08-11 [facility] SEE BELOW Normal [facility] Comment on above: Result Comment: Nega tive for Flu A protein angiten. Infection due to Flu A cannot be ruled out. Flu A angiten in the sample may be below the detection limit of the test. Performed By: #### I NFLUAB #### [facility] [address] [place] [address] Dr. Chucho Jesus [facility] Normal [facility] Comment on above: Result Comment: Nega tive for Flu B protein antigen. Infection due to Flu B cannot be ruled out. Flu B antigen in the sample may be below the detection limit of the test. Performed By: #### I NFLUAB #### [facility] [address] [place] [address] Dr. Chucho Jesus INFLUENZA A AG Negative Normal NEGATIVE SEE COMMENT [facility] Comment on above: Performed By: #### I NFLUAB #### [facility] [address] [place] [address] Dr. Chucho Jesus INFLUENZA B AG Negative Normal NEGATIVE SEE COMMENT [facility] Comment on above: Performed By: #### I NFLUAB #### [facility] [address] [address] [address] Chucho Jesus Covid-19 PCR ([facility])on 05-07 SARS-CoV-2 (COVID-19) RNA DMITRY+probe Ql (Unsp spec) Not detected Normal NOT DETECTED [facility] Comment on above: Result Comment: When [...] for this test is supported by the Counter [employer] of Health and Human Service's declaration that [...] Performed By: #### V ITAD, IRON #### [facility] [address] [place] [address] Dr. Chucho Jesus INFLUENZA A AND B AGon 05-26 [facility] SEE BEL[facility] Normal [facility] Comment on above: Result Comment: Nega tive for Flu A protein angiten. Infection due to Flu A cannot be ruled out. Flu A angiten in the sample may be below the detection limit of the test. Performed By: #### V ITAD, IRON #### [facility] [address] [place] [address] Dr. Chucho Jesus [facility] SEE BELOW Normal [facility] Comment on above: Result Comment: Nega tive for Flu B protein antigen. Infection due to Flu B cannot be ruled out. Flu B antigen in the sample may be below the detection limit of the test. Performed By: #### V ITAD, IRON #### [facility] [address] [address] [address] Chucho Jesus INFLUENZA A AG Negative Normal NEGATIVE SEE COMMENT [facility] Comment on above: Performed By: #### V ITAD, IRON #### [facility] [address] [place] [address] Dr. Chucho Jesus INFLUENZA B AG Negative Normal NEGATIVE SEE COMMENT [facility] Comment on above: Performed By: #### V ITAD, IRON #### [facility] [address] [place] [address] Dr. Chucho Jesus INTERNAL CONTROLS Within Normal Limits Normal Wi thin Normal Limits [facility] Comment on above: Performed By: #### V ITAD, IRON #### [facility] [address] [place] [address] Dr. Chucho Jesus ER URINE PROFILEon 2 Bilirubin Ql (U) Negative Normal NEGATIVE [facility] Comment on above: Performed By: #### V ITAD, IRON #### [facility] [address] [place] [address] Dr. Chucho Jesus Clarity (U) CLEAR Normal CLEAR [facility] Comment on above: Performed By: #### V ITAD, IRON #### [facility] [address] [place] [address] Dr. Chucho Jesus Color (U) YELLOW Normal YELLOW [facility] Comment on above: Performed By: #### V ITAD, IRON #### [facility] [address] [place] [address] Dr. Chucho Jesus ERUAHBriana A micrscopic examination will be performed if indicated. Normal [facility] Comment on above: Performed By: #### V ITAD, IRON #### [facility] [address] [place] [address] Dr. Chucho Jesus Glucose Ql (U) Negative Normal NEGATIVE [facility] Comment on above: Performed By: #### V ITAD, IRON #### [facility] [address] [place] [address] Dr. Chucho Jesus Hemoglobin Ql (U) Negative Normal NEGATIVE [facility] Comment on above: Performed By: #### V ITAD, IRON #### [facility] [address] [address] [address] Chucho Jesus Ketones Ql (U) >=80 Abnormal NEGATIVE [facility] Comment on above: Performed By: #### V ITAD, IRON #### [facility] [address] [place] [address] Dr. Chucho eJsus LEUKOCYTES Negative Normal NEGATIVE [facility] Comment on above: Performed By: #### V ITAD, IRON #### [facility] [address] [address] [address] Chucho Jesus Nitrite Ql (U) Negative Normal NEGATIVE [facility] Comment on above: Performed By: #### V ITAD, IRON #### [facility] [address] [place] [address] Dr. Chucho Jesus pH (U) 6.0 [pH] Normal 5-9 [facility] Comment on above: Performed By: #### V ITAD, IRON #### [facility] [address] [place] [address] Dr. Chucho Jesus Protein (U) [Mass/Vol] 100 mg/dL Abnormal NEGATIVE/ TRACE [facility] Comment on above: Performed By: #### V ITAD, IRON #### [facility] [address] [place] [address] Dr. Chucho Jesus SPEC GRAVITY >=1.030 Abnormal 1.005-<=1.025 [facility] Comment on above: Performed By: #### V ITAD, IRON #### [facility] [address] [place] [address] Dr. Chucho Jesus UR MICRO IND INDICATED Normal [facility] Comment on above: Performed By: #### V ITAD, IRON #### [facility] [address] [place] [address] Dr. Chucho Jesus Urobilinogen Qn (U) 0.2 {Chelsea'U}/dL Normal 0.2 - 1. 0 [facility] Comment on above: Performed By: #### V ITAD, IRON #### [facility] [address] [place] [address] Dr. Chucho Jesus URon 11-17-2022 , QUAL Negative Normal NEGATIVE [facility] Comment on above: Performed By: #### V ITAD, IRON #### [facility] [address] [address] [address] Chucho Jesus URINE MICROSCOPIC ONLYon BACTERIA NONE SEEN Normal NONE SEEN The [facility] Comment on above: Performed By: #### V ITAD, IRON #### [facility] [address] [place] [address] Dr. Chucho Jesus Bacteria identified Cx Nom (U) NOT INDICATED Normal [facility] Comment on above: Performed By: #### V ITAD, IRON #### [facility] [address] [place] [address] Dr. Chucho Jesus CAST NONE SEEN Normal NONE SEEN [facility] Comment on above: Performed By: #### V ITAD, IRON #### [facility] [address] [place] [address] Dr. Chucho Jesus Crystals LM Nom (Urine sed) NONE SEEN Normal NONE SEEN The [facility] Comment on above: Performed By: #### V ITAD, IRON #### [facility] [address] [place] [address] Dr. Chucho Jesus Epithelial cells LM Ql (Urine sed) FEW Abnormal NONE SEEN /RARE [facility] Comment on above: Performed By: #### V ITAD, IRON #### [facility] [address] [place] [address] Dr. Chucho Jesus MUCOUS MODERATE Abnormal NONE SEEN The [facility] Comment on above: Performed By: #### V ITAD, IRON #### [facility] [address] [place] [address] Dr. Chucho Jesus RBC NONE SEEN Abnormal 0-2 [facility] Comment on above: Performed By: #### V ITAD, IRON #### [facility] [address] [place] [address] Dr. Chucho Jesus WBC NONE SEEN Normal NONE SEEN The [facility] Comment on above: Performed By: #### V ITAD, IRON #### [facility] [address] [place] [address] Dr. Chucho Jesus XR LSPINE 2_3 VIEWSon [...] MARCO CAMPOS Date: 2022-05-22 12:28 Normal [facility] INSULINon 04-25-2022 Insulin 10.4 uIU/mL Normal 2.6-24.9 [facility] Comment on above: Performed By: #### V ITAD, IRON #### [facility] [address] [place] [address] Dr. Chucho Jesus CBC AUTO DIFFon 04-24-2022 BASO # 0.0 103/ul Normal 0.0-0.1 [facility] Comment on above: Performed By: #### C BC #### [facility] [address] [place] [address] Dr. Chucho Jesus Basophils/100 WBC (Bld) 0.6 % Normal 0.2-2.0 [facility] Comment on above: Performed By: #### C BC #### [facility] [address] [place] [address] Dr. Chucho Jesus EO # 0.1 103/ul Normal 0.0-0.7 [facility] Comment on above: Performed By: #### C BC #### [facility] [address] [address] [address] Chucho Jesus Eosinophils/100 WBC (Bld) 1.8 % Normal 0.9-7.0 [facility] Comment on above: Performed By: #### C BC #### [facility] [address] [place] [address] Dr. Chucho Jesus Erythrocyte distribution width (RBC) [Ratio] 12.9 % Normal 11.0-15.0 [facility] Comment on above: Performed By: #### C BC #### [facility] [address] [place] [address] Dr. Chucho Jesus Hematocrit (Bld) [Volume fraction] 45.6 % Normal 36.0-48.0 [facility] Comment on above: Performed By: #### C BC #### [facility] [address] [place] [address] Dr. Chucho Jesus Hemoglobin (Bld) [Mass/Vol] 14.7 g/dL Normal 12.0-16.0 [facility] Comment on above: Performed By: #### C BC #### [facility] [address] [place] [address] Dr. Chucho Jesus IG # 0.02 10e3/ul Normal 0.00-0.03 [facility] Comment on above: Performed By: #### C BC #### [facility] [address] [place] [address] Dr. Chucho Jesus IG % 0.3 % Normal 0.0-0.5 [facility] Comment on above: Performed By: #### C BC #### [facility] [address] [place] [address] Dr. Chucho Jesus LYMPH # 1.6 103/ul Normal 1.2-3.8 [facility] Comment on above: Performed By: #### C BC #### [facility] [address] [place] [address] Dr. Chucho Jesus Lymphocytes/100 WBC (Bld) 24.5 % Normal 20.5-60.0 [facility] Comment on above: Performed By: #### C BC #### [facility] [address] [place] [address] Dr. Chucho Jesus MANUAL DIFF REQ NO Normal [facility] Comment on above: Performed By: #### C BC #### [facility] [address] [place] [address] Dr. Chucho Jesus MCH (RBC) [Entitic mass] 28.4 pg Normal 26.7-34.0 [facility] Comment on above: Performed By: #### C BC #### [facility] [address] [address] [address] Chucho Jesus MCHC (RBC) [Mass/Vol] 32.2 g/dL Normal 29.9-35.2 [facility] Comment on above: Performed By: #### C BC #### [facility] [address] [address] [address] Chucho Jesus MCV (RBC) [Entitic vol] 88.2 fL Normal 81.0-99.0 [facility] Comment on above: Performed By: #### C BC #### [facility] [address] [place] [address] Dr. Chucho Jesus MONO # 0.5 103/ul Normal 0.3-0.8 [facility] Comment on above: Performed By: #### C BC #### [facility] [address] [place] [address] Dr. Chucho Jesus Monocytes/100 WBC (Bld) 7.4 % Normal 1.7-12.0 [facility] Comment on above: Performed By: #### C BC #### [facility] [address] [place] [address] Dr. Chucho Jesus NEUT # 4.4 103/ul Normal 1.4-6.5 [facility] Comment on above: Performed By: #### C BC #### [facility] [address] [place] [address] Dr. Chucho Jesus Neutrophils/100 WBC (Bld) 65.4 % Normal 43.0-75.0 [facility] Comment on above: Performed By: #### C BC #### [facility] [address] [place] [address] Dr. Chucho Jesus Platelet mean volume (Bld) [Entitic vol] 9.9 fL Normal 9.5-13.5 [facility] Comment on above: Performed By: #### C BC #### [facility] [address] [place] [address] Dr. Chucho Jesus PLT 225 103/ul Normal 150-450 [facility] Comment on above: Performed By: #### C BC #### [facility] [address] [place] [address] Dr. Chucho Jesus RBC 5.17 106/ul Normal 4.20-5.40 [facility] Comment on above: Performed By: #### C BC #### [facility] [address] [address] [address] Chucho Jesus WBC 6.7 103/ul Normal 4.0-11.0 [facility] Comment on above: Performed By: #### C BC #### [facility] [address] [place] [address] Dr. Chucho Jesus FREE THYROXINE INDEX T7on FTI 3.29 Normal 1.30-4.50 [facility] Comment on above: Performed By: #### T 7, TSH, LIPID, CMP #### [facility] [address] [place] [address] Dr. Chucho Jesus T3U 27.0 % Critically low 30.0-39.0 [facility] Comment on above: Performed By: #### T 7, TSH, LIPID, CMP #### [facility] [address] [place] [address] Dr. Chucho Jesus T4 [Mass/Vol] 12.20 ug/dL Normal 4.80-13.90 [facility] Comment on above: Performed By: #### T 7, TSH, LIPID, CMP #### [facility] [address] [place] [address] Dr. Chucho Jesus GLYCOHEMOGLOBIN A1Con 2021 ADA RECOMMENDATION SEE BELOW Normal [facility] Comment on above: Result Comment: ADA RECOMMENDED LIMIT 4.0 - 6.0 ADA THERAPEUTIC TARGET < 7.0 ACTION SUGGESTED > 7.0 Performed By: #### A 1C #### [facility] [address] [place] [address] Dr. Chucho Jesus Glucose [Mass/Vol] 105 mg/dL Normal [facility] Comment on above: Performed By: #### A 1C #### [facility] [address] [place] [address] Dr. Chucho Jesus HbA1c (Bld) [Mass fraction] 5.3 % Normal 4.5-6.2 [facility] Comment on above: Performed By: #### A 1C #### [facility] [address] [address] [address] Chucho Jesus IRONon 04-24-2022 Iron [Mass/Vol] 48.0 ug/dL Critically low 50.0-170.0 [facility] Comment on above: Performed By: #### V ITAD, IRON #### [facility] [address] [address] [address] Chucho Jesus LIPID PROFILEon 04-24-2022 CHOL-HDL RATIO NORM SEE BELOW Normal [facility] Comment on above: Result Comment: 3.3 - 4.4 LOW RISK 4.4 - 7.1 AVERAGE RISK 7.1 - 11.0 MODERATE RISK >11.0 HIGH RISK Performed By: #### V ITAD, IRON #### [facility] [address] [address] [address] Chucho Jesus Cholesterol [Mass/Vol] 184 mg/dL Normal <=200 [facility] Comment on above: Performed By: #### V ITAD, IRON #### [facility] [address] [address] [address] Chucho Jesus Cholesterol in HDL [Mass/Vol] 55 mg/dL Normal 40-60 [facility] Comment on above: Performed By: #### V ITAD, IRON #### [facility] [address] [address] [address] Chucho Jesus Cholesterol in LDL [Mass/Vol] 116.6 mg/dL Normal [facility] Comment on above: Performed By: #### V ITAD, IRON #### [facility] [address] [address] [address] Chucho Jesus Cholesterol.total/C holesterol in HDL [Mass ratio] 3.3 {ratio} Normal [facility] Comment on above: Performed By: #### V ITAD, IRON #### [facility] [address] [address] [address] Chucho Jesus HDL NORMAL > or = 60 mg/dl - LO W CARDIOVASCULAR RISK <40 mg/dl - HIGH CARDIOVASCULAR RISK Normal [facility] Comment on above: Performed By: #### V ITAD, IRON #### [facility] [address] [address] [address] Chucho Jesus LDL CALC NORMAL SEE BELOW Normal [facility] Comment on above: Result Comment: <100 mg/dl OPTIMAL 100 - 129 mg/dl NEAR OR ABOVE OPTIMAL 130 - 159 mg/dl BORDERLINE HIGH 160 - 189 mg/dl HIGH >190 mg/dl VERY HIGH Performed By: #### V ITAD, IRON #### [facility] [address] [address] [address] Chucho Jesus Triglyceride [Mass/Vol] 62 mg/dL Normal <=150 [facility] Comment on above: Performed By: #### V ITSONIYA, IRON #### [facility] [address] [place] [address] Dr. Chucho Jesus VLDL CALC 12.4 mg/dL Normal [facility] Comment on above: Performed By: #### V ITSONIYA, IRON #### [facility] [address] [place] [address] Dr. Chucho Jesus PROF 14(COMP METB)on 04-24- 022 Albumin [Mass/Vol] 3.7 g/dL Normal 3.4-5.0 [facility] Comment on above: Performed By: #### T 7, TSH, LIPID, CMP #### [facility] [address] [place] [address] Dr. Chucho Jesus Albumin/Globulin [Mass ratio] 0.9 {ratio} Normal [facility] Comment on above: Performed By: #### T 7, TSH, LIPID, CMP #### [facility] [address] [place] [address] Dr. Chucho Jesus ALP [Catalytic activity/Vol] 74 U/L Normal 46-116 [facility] Comment on above: Performed By: #### T 7, TSH, LIPID, CMP #### [facility] [address] [place] [address] Dr. Chucho Jesus ALT [Catalytic activity/Vol] 16 U/L Normal 14-59 [facility] Comment on above: Performed By: #### T 7, TSH, LIPID, CMP #### [facility] [address] [address] [address] Chucho Jesus Anion gap [Moles/Vol] 12.3 mmol/L Normal [facility] Comment on above: Performed By: #### T 7, TSH, LIPID, CMP #### [facility] [address] [address] [address] Chucho Jesus AST [Catalytic activity/Vol] 13 U/L Critically low 15-37 [facility] Comment on above: Performed By: #### T 7, TSH, LIPID, CMP #### [facility] [address] [address] [address] Chucho Jesus Bilirubin [Mass/Vol] 0.4 mg/dL Normal 0.2-1.0 [facility] Comment on above: Performed By: #### T 7, TSH, LIPID, CMP #### [facility] [address] [place] [address] Dr. Chucho Jesus Calcium [Mass/Vol] 8.9 mg/dL Normal 8.5-10.1 [facility] Comment on above: Performed By: #### T 7, TSH, LIPID, CMP #### [facility] [address] [place] [address] Dr. Chucho Jesus Chloride [Moles/Vol] 105 mmol/L Normal 98-107 [facility] Comment on above: Performed By: #### T 7, TSH, LIPID, CMP #### [facility] [address] [address] [address] Chucho Jesus CO2 [Moles/Vol] 26.6 mmol/L Normal 21.0-32.0 [facility] Comment on above: Performed By: #### T 7, TSH, LIPID, CMP #### [facility] [address] [place] [address] Dr. Chucho Jesus Creatinine [Mass/Vol] 0.68 mg/dL Normal 0.55-1.02 [facility] Comment on above: Performed By: #### T 7, TSH, LIPID, CMP #### [facility] [address] [place] [address] Dr. Chucho Jesus EGFR-AF MONEGASQUE >60 Normal >=60 [facility] Comment on above: Performed By: #### T 7, TSH, LIPID, CMP #### [facility] [address] [address] [address] Chucho Jesus EGFR-NON AF MONEGASQUE >60 Normal >=60 [facility] Comment on above: Performed By: #### T 7, TSH, LIPID, CMP #### [facility] [address] [address] [address] Chucho Jesus Globulin (S) [Mass/Vol] 4.3 g/dL Normal [facility] Comment on above: Performed By: #### T 7, TSH, LIPID, CMP #### [facility] [address] [place] [address] Dr. Chucho Jesus Glucose [Mass/Vol] 87 mg/dL Normal 74-106 [facility] Comment on above: Performed By: #### T 7, TSH, LIPID, CMP #### [facility] [address] [place] [address] Dr. Chucho Jesus Potassium [Moles/Vol] 3.9 mmol/L Normal 3.5-5.1 [facility] Comment on above: Performed By: #### T 7, TSH, LIPID, CMP #### [facility] [address] [place] [address] Dr. Chucho Jesus Protein [Mass/Vol] 8.0 g/dL Normal 6.4-8.2 [facility] Comment on above: Performed By: #### T 7, TSH, LIPID, CMP #### [facility] [address] [place] [address] Dr. Chucho Jesus Sodium [Moles/Vol] 140 mmol/L Normal 136-145 [facility] Comment on above: Performed By: #### T 7, TSH, LIPID, CMP #### [facility] [address] [place] [address] Dr. Chucho Jesus Urea nitrogen [Mass/Vol] 9.0 mg/dL Normal 7.0-18.0 [facility] Comment on above: Performed By: #### T 7, TSH, LIPID, CMP #### [facility] [address] [address] [address] Chucho Jesus Urea nitrogen/Creatinine [Mass ratio] 13.2 mg/mg Normal [facility] Comment on above: Performed By: #### T 7, TSH, LIPID, CMP #### [facility] [address] [address] [address] Chucho Jesus TSHon 04-24-2022 TSH 1.127 uIU/mL Normal 0.358-3.740 [facility] Comment on above: Performed By: #### T 7, TSH, LIPID, CMP #### [facility] [address] [address] [address] Chucho Jesus VITAMIN D 25 OHon 04-24-2022 VIT D 25-OH 35.2 ng/mL Normal [facility] Comment on above: Performed By: #### V ALDAAD, IRON #### [facility] [address] [place] [address] Dr. Chucho Jesus VIT D RANGES SEE BELOW Normal [facility] Comment on above: Result Comment: <20 ng/mL Vit D deficient 20 - <30 ng/mL Vit D insufficient 30 - 100 ng/mL Vit D sufficient >100 ng/mL Potential Toxicity Performed By: #### V ITAD, IRON #### [facility] [address] [place] [address] Dr. Chucho Jesus HCG ( test) Ql (U)O rdered By: James Churchill on 12-05-2020 Internal Control Pass [facility] Interpretation and review of laboratory results Normal [facility] POC , UrineOrdered By: James Churchill on 12-05-2020 HCG ( test) Ql (U) Negative Negative [facility] CTA CHEST WITH CONTRASTon CTA CHEST [...] by:Ady Tran MD/Edited Result - FINAL Normal [facility] Basic Metabolic Profon 02-19 (cont.) Normal [facility] Comment on above: Result Comment: Aver age GFR for 20-29 years old: 116 mL/min/1.73sq mChronic Kidney Disease: <60 mL/min/1.73sq mKidney failure: <15 mL/min/1.73sq meGFR calculated using average adult body mass. Additional eGFR calculator available at:http://[email or web address].RobArt/multiple_crcl_2012.htm Performed By: #### C DP, BMP, TROPI ####[address] [place] [address] Anion gap 14 mmol/L Normal 03-22 [facility] Comment on above: Performed By: #### C DP, BMP, TROPI ####[address] [place] [address] BUN/CRE Ratio 13 Normal - [facility] Comment on above: Performed By: #### C DP, BMP, TROPI ####[address] [place] [address] Calcium 9.2 mg/dL Normal 8.6-10.4 [facility] Comment on above: Performed By: #### C DP, BMP, TROPI ####[address] [place] [address] Chloride 105 mmol/L Normal 98-107 [facility] Comment on above: Performed By: #### C DP, BMP, TROPI ####[address] [place] [address] CO2 23 mmol/L Normal 20-31 [facility] Comment on above: Performed By: #### C DP, BMP, TROPI ####[address] [place] [address] Creatinine 0.55 mg/dL Normal 0.50-0.90 [facility] Comment on above: Performed By: #### C DP, BMP, TROPI ####[address] , [facility] eGFR (non-black) mL/min/{1.73_m2} Normal >60 [facility] Comment on above: Performed By: #### C DP, BMP, TROPI ####[address] [place] [address] Glucose mass conc 96 mg/dL Normal 70-99 [facility] Comment on above: Performed By: #### C DP, BMP, TROPI ####[address] [place] [address] Potassium molar conc 3.6 mmol/L Low 3.7-5.3 [facility] Comment on above: Performed By: #### C DP, BMP, TROPI ####[address] [place] [address] Sodium 142 mmol/L Normal 135-144 [facility] Comment on above: Performed By: #### C DP, BMP, TROPI ####[address] [place] [address] Staging: Normal [facility] Comment on above: Result Comment: Stag e 1: Some kidney damage normal GFRStage 2: Mild kidney damage GFR 60-89Stage 3: Moderate kidney damage GFR 30-59Stage 4: Severe kidney damage GFR 15-29Stage 5: Severe kidney damage GFR <15ESRD - chronic treatment by dialysis or transplantPerformed at 42 [place] [address] Performed By: #### C DP, BMP, TROPI ####[address] , [place] [address] Urea nitrogen 7 mg/dL Normal 6-20 [facility] Comment on above: Performed By: #### C DP, BMP, TROPI ####[address] [place] [address] CBC with Diffon 02-19-2017 Abs. Basophil 0.00 k/uL Normal 0.0-0.2 [facility] Comment on above: Result Comment: Perf ormed at [address] [place], [place] [address] Performed By: #### C DP, BMP, TROPI ####[address] , [place] [address] Abs.Neutrophil (Seg) 7.10 k/uL Normal 1.8-8.0 [facility] Comment on above: Performed By: #### C DP, BMP, TROPI ####[address] , [place] [address] Basophils/100 WBC Auto (Bld) 0 % Normal [facility] Comment on above: Performed By: #### C DP, BMP, TROPI ####[address] [place] [address] Eosinophils 0.30 10*3/uL Normal 0.0-0.4 [facility] Comment on above: Performed By: #### C DP, BMP, TROPI ####[address] [place] [address] Eosinophils/100 leukocytes 3 % Normal [facility] Comment on above: Performed By: #### C DP, BMP, TROPI ####[address] [place] [address] Erythrocyte distribution width Auto Ratio (RBC) 13.6 % Normal 12.1-15.2 [facility] Comment on above: Performed By: #### C DP, BMP, TROPI ####[address] [place] [address] Erythrocytes (RBC) 5.03 10*6/uL Normal 4.0-5.2 [facility] Comment on above: Performed By: #### C DP, BMP, TROPI ####[address] [place] [address] Hematocrit (HCT) 40.2 % Normal 36-46 [facility] Comment on above: Performed By: #### C DP, BMP, TROPI ####[address] [place] [address] Hemoglobin mass conc (Bld) 13.2 g/dL Normal 12.0-16.0 [facility] Comment on above: Performed By: #### C DP, BMP, TROPI ####[address] [place] [address] Lymphocytes 2.90 10*3/uL Normal 1.2-5.2 [facility] Comment on above: Performed By: #### C DP, BMP, TROPI ####[address] [place] [address] Lymphocytes/100 leukocytes 27 % Normal [facility] Comment on above: Performed By: #### C DP, BMP, TROPI ####[address] [place] [address] MCH 26.2 pg Normal 26-34 [facility] Comment on above: Performed By: #### C DP, BMP, TROPI ####[address] , [place] [address] MCHC mass conc (RBC) 32.8 g/dL Normal 31-37 [facility] Comment on above: Performed By: #### C DP, BMP, TROPI ####[address] , [facility] MCV 79.9 fL Low 80-100 [facility] Comment on above: Performed By: #### C DP, BMP, TROPI ####[address] [place] [address] Monocytes 0.60 10*3/uL Normal 0.0-1.0 [facility] Comment on above: Performed By: #### C DP, BMP, TROPI ####[address] , [place] [address] Monocytes/100 leukocytes 5 % Normal [facility] Comment on above: Performed By: #### C DP, BMP, TROPI ####[address] [place] [address] Neutrophil (Seg) 65 % Normal [facility] Comment on above: Performed By: #### C DP, BMP, TROPI ####[address] [place] [address] Platelet mean volume (PMV) 9.6 fL Normal 6.0-12.0 [facility] Comment on above: Performed By: #### C DP, BMP, TROPI ####[address] [place] [address] Platelets 278 10*3/uL Normal 140-450 [facility] Comment on above: Performed By: #### C DP, BMP, TROPI ####[address] [place] [id number] WBC (Leukocytes) 10.8 10*3/uL Normal 4.5-13.5 [facility] Comment on above: Performed By: #### C DP, BMP, TROPI ####[address] [place] [address] Auto Diff Performed NOT REPORTED Normal [facility] Comment on above: Performed By: #### C DP, BMP, TROPI ####[address] [place] [address] Erythrocyte morphology NOT REPORTED Normal [facility] Comment on above: Performed By: #### C DP, BMP, TROPI ####[address] [place] [address] Platelets NOT REPORTED Normal [facility] Comment on above: Performed By: #### C DP, BMP, TROPI ####[address] [place] [address] WBC Morphology NOT REPORTED Normal [facility] Comment on above: Performed By: #### C DP, BMP, TROPI ####[address] [place] [address] ED Noteon 02-19-2017 HIM IP Note OR Central Supply Clerk Normal [facility] ED Provider Noteon 7 HIM IP Note OR Central Supply Clerk Normal [facility] Troponinon 02-19-2017 Troponin T.cardiac mass conc ug/L Normal <0.03 [facility] Comment on above: Result Comment: Trop onin T results cannot be compared to Troponin-I results. Performed By: #### C DP, BMP, TROPI ####[address] [place] [address] Troponin I.cardiac mass conc Normal [facility] Comment on above: Result Comment: Refe rence Range: <0.03 Within reference range. 0.03-0.09 Possible myocardial damage.Repeat at appropriate intervals to rule out chronic elevation. >= 0.10 Indicative of myocardial damage.Performed at [address] [place] [address] [phone] Performed By: #### C DP, BMP, TROPI ####[address] [place] [address] Vital Signs Date Time Vital Sign Value Performing Clinician Facility 05-09-2024 11:44-0500 Body mass index (BMI) [Ratio] 33.28 kg/m2 Katelyn Luis DO Work Phone: [facility] 05-09-2024 11:44-0500 Body weight 90.72 kg Katelyn Luis DO Work Phone: [facility] 05-09-2024 11:44-0500 Diastolic blood pressure 64 mm[Hg] Katelyn Luis DO Work Phone: [facility] 05-09-2024 11:44-0500 Systolic blood pressure 118 mm[Hg] Katelyn Luis DO Work Phone: [facility] 04-11-2024 10:37-0400 Body mass index (BMI) [Ratio] 31.12 kg/m2 Little LOWRY Work Phone: [facility] 04-11-2024 10:37-0400 Body weight 84.82 kg Little Christie PA Work Phone: [facility] 04-11-2024 10:37-0400 Diastolic blood pressure 68 mm[Hg] Little Christie PA Work Phone: [facility] 04-11-2024 10:37-0400 Systolic blood pressure 116 mm[Hg] Little Christie PA Work Phone: [facility] 02-27-2023 14:39-0400 Blood Pressure Location Gary MORRIS [facility] 02-27-2023 14:39-0400 Diastolic blood pressure 66 mm[Hg] Gary MORRIS [facility] 02-27-2023 14:39-0400 Heart rate 70 /min Gary MORRIS [facility] 02-27-2023 14:39-0400 Respiratory rate 16 /min Gary MORRIS [facility] [place] 02-27-2023 14:39-0400 Systolic blood pressure 106 mm[Hg] Gary MORRIS [facility] [place] 01-08-2022 08:09-0400 Body temperature 98.01 [degF] Queta Rice DO Work Phone: [employer] 01-08-2022 08:09-0400 Body weight 75.75 kg Queta Rice DO Work Phone: [employer] 01-08-2022 08:09-0400 Diastolic blood pressure 71 mm[Hg] Queta Rice DO Work Phone: [employer] 01-08-2022 08:09-0400 Heart rate 98 /min Queta Rice DO Work Phone: [employer] 01-08-2022 08:09-0400 Systolic blood pressure 112 mm[Hg] Queta Rice DO Work Phone: [employer] 12-10-2021 14:45-0400 Body height 166.37 cm Bret Long Other [employer] Other 12-10-2021 14:45-0400 Body mass index (BMI) [Ratio] 26.55 kg/m2 Bret Long Other [employer] Other 12-10-2021 14:45-0400 Body weight 73.48 kg Bret Long Other [employer] Other 12-10-2021 14:45-0400 Diastolic blood pressure 72 mm[Hg] Bret Long Other [employer] Other 12-10-2021 14:45-0400 Systolic blood pressure 103 mm[Hg] Bret Long Other [employer] Other 11-27-2021 14:01-0400 Body temperature 98.4 [degF] Queta Rice DO Work Phone: [facility] 11-27-2021 14:01-0400 Body weight 74.84 kg Queta Rice DO Work Phone: [facility] 11-27-2021 14:01-0400 Diastolic blood pressure 64 mm[Hg] Queta Rice DO Work Phone: [facility] 11-27-2021 14:01-0400 Heart rate 98 /min Queta Rice DO Work Phone: [facility] 11-27-2021 14:01-0400 Systolic blood pressure 121 mm[Hg] Queta Rice DO Work Phone: [facility] 12-05-2020 19:26-0400 Heart rate 106 /min James Breece PA-C Work Phone: [facility] 12-05-2020 19:25-0400 Body temperature 98.29 [degF] James Breece PA-C Work Phone: [facility] 12-05-2020 19:25-0400 Body weight 97.98 kg James Breece PA-C Work Phone: [facility] 12-05-2020 19:25-0400 Diastolic blood pressure 86 mm[Hg] James Breece PA-C Work Phone: [facility] 12-05-2020 19:25-0400 Respiratory rate 16 /min James Breece PA-C Work Phone: [facility] 12-05-2020 19:25-0400 SaO2% (BldA) [Mass fraction] 97 % James Breece PA-C Work Phone: [facility] 12-05-2020 19:25-0400 Systolic blood pressure 126 mm[Hg] James Breece PA-C Work Phone: [facility] Encounters Encounter Date Encounter Type Care Provider Facility Start: 05-24-2024 End: 05-24-2024 ambulatory LITTLE CHRISTIE Not Available Start: 05-24-2024 End: 05-24-2024 Bamboo flowsheet Little LOWRY Work Phone: [facility] Start: 05-24-2024 End: 05-24-2024 Bamboo flowsheet Little LOWRY Work Phone: [facility] Start: 05-09-2024 End: 05-09-2024 Bamboo flowsheet Katelyn Luis DO Work Phone: [facility] Start: 05-09-2024 End: 05-09-2024 Bamboo flowsheet Katelyn Luis DO Work Phone: [facility] Start: 05-09-2024 End: 05-09-2024 Office outpatient visit 15 minutes Katelyn Luis DO Work Phone: [facility] Comment on above: Second trimester pre gnancy; 26 weeks gestation of ; History of miscarriage Start: 05-09-2024 End: 05-09-2024 ambulatory KATELYN LUIS Not Available Start: 04-11-2024 End: 04-11-2024 Bamboo flowsheet Little LOWRY Work Phone: [facility] Start: 04-11-2024 End: 04-11-2024 Bamboo flowsheet Little LOWRY Work Phone: [facility] Start: 04-11-2024 End: 04-11-2024 Office outpatient visit 15 minutes Little LOWRY Work Phone: [facility] Comment on above: Second trimester pre gnancy; 22 weeks gestation of ; Diabetes mellitus screening Start: 04-11-2024 End: 04-11-2024 ambulatory LITTLE CHRISTIE Not Available Start: 03-23-2024 End: 03-23-2024 ambulatory KATELYN R LUIS [facility] Start: 03-14-2024 End: 03-14-2024 ambulatory KATELYN LUIS Not Available Start: 02-15-2024 End: 02-15-2024 ambulatory LITTLE CHRISTIE Not Available Start: 01-20-2024 End: 01-20-2024 ambulatory KATELYN SEGOVIAO Not Available Start: 01-01-2024 End: 01-01-2024 ambulatory LITTLE CHRISTIE Not Available Start: 12-17-2023 End: 12-17-2023 ambulatory LITTLE CHRISTIE Not Available Start: 02-27-2023 End: 02-28-2023 ambulatory Gary MORRIS Facility:[facility] Start: 02-27-2023 End: 02-27-2023 Patient encounter procedure Gary MORRIS [facility] Start: 02-23-2023 ambulatory Alexandr Bourgeois Facility:[facility] Start: 02-05-2023 ambulatory Gary MORRIS Facility:[facility] [...] HOMAR BELTRAN . Facility:[facility] Start: 02-18-2022 ambulatory QUETA Huffman~[id number] [facility] Start: 02-12-2022 ambulatory QUETA Huffman~[id number] [facility] Start: 02-12-2022 End: 02-12-2022 Telemedicine consultation with patient Queta Osorio DO Work Phone: [facility] Comment on above: Anxiety (Primary Dx) Start: 01-19-2022 Refill Luis Dipalma D O Work Phone: [facility] Start: 01-19-2022 Refill Luis Dipalma D O Work Phone: [facility] Start: 01-08-2022 End: 01-08-2022 ambulatory QUETA Huffman~[id number] [facility] Start: 01-08-2022 End: 01-08-2022 Office outpatient visit 25 minutes Queta M Rice DO Work Phone: [facility] Comment on above: Anxiety (Primary Dx) ; Hypotension, unspecified hypotension type Start: 01-08-2022 End: 01-08-2022 Patient encounter procedure Queta Nathanael Rice DO Work Phone: [facility] Start: 12-11-2021 End: 12-11-2021 ambulatory QUETA JAMA M~[id number] [facility] Start: 12-10-2021 End: 12-10-2021 ambulatory Bret Long Other [employer] Other Start: 12-10-2021 Office outpatient ne w 45 minutes Bret Long [facility] Start: 11-27-2021 End: 11-27-2021 ambulatory QUETABETH JAMA M~[id number] [facility] Start: 11-27-2021 End: 11-27-2021 Office outpatient new 30 minutes Queta Nathanael Rice DO Work Phone: [facility] Comment on above: Anxiety (Primary Dx) Start: 11-27-2021 End: 11-27-2021 Patient encounter procedure Queta M Rice DO Work Phone: [facility] Start: 11-25-2021 Telephone encounter Dana Kinsey [facility] Start: 12-05-2020 End: 12-05-2020 ambulatory PHYSICIAN NO [facility] Start: 12-05-2020 End: 12-05-2020 Office outpatient new 20 minutes James Churchill PA-C Work Phone: [facility] [place] Comment on above: Vaginal sore (Primar y Dx) Start: 02-19-2017 End: 02-19-2017 Emergency department patient visit KIM SUTHERLAND [facility] Procedures Date Procedure Procedure Detail Performing Clinician Start: 05-09-2024 Urnls dip stick/tabl et rgnt non-auto w/o micrscp Katelyn Luis DO Work Phone: Start: 04-11-2024 Urnls dip stick/tabl et rgnt non-auto w/o micrscp Little LOWRY Work Phone: Start: 11-27-2021 Adult depression scr eening assessment Quetabeth Osorio DO Work Phone: Start: 12-05-2020 Urine test visual color cmprsn meths James Churchill PA-C Work Phone: Start: 02-19-2017 Ct angiography chest w/contrast/noncontrast KIM SUTHERLAND Start: 02-19-2017 SALINE LOCK IV KIM SIBLEY Start: 02-19-2017 TELEMETRY MONITORING SEBASTIAN SUTHERLAND Start: 02-19-2017 BASIC METABOLIC PANEL M TREVORRadha ENA Start: 02-19-2017 CBC WITH AUTO DIFFERENTIAL KIM ENA Start: 02-19-2017 TROPONIN KIM Howell Start: 02-19-2017 EKG 12-LEAD KIM Howell None (qualifier value) Henrik brothers DOMINGO Plan of Treatment Date Care Activity Detail Author Start: 05-24-2024 End: 05-24-2024 Patient encounter procedure 05/24/2024 2:10 PM EST Routine [facility] [address] [place] [id number] Little Christie PA [address] [place] [address] Arrived [facility] Comment on above: Arrived Start: 05-23-2024 End: 05-23-2024 Patient encounter procedure 05/23/2024 1:50 PM EST Routine [facility] [address] [place] [id number] Little Christie PA [address] [place] [address] [facility] Start: 05-09-2024 End: 05-09-2025 US biophysical profile w non stress test US biophysical profile w non stress test Imaging Routine Second trimester 26 weeks gestation of History of miscarriage Expected: 05/09/2024 (Approximate), Expires: 05/09/2025 [facility] Work Phone: Comment on above: Expected: 05/09/2024 (Approximate), Expires: 05/09/2025 Start: 05-09-2024 End: 05-09-2025 for [facility] Comment on above: Expected: 05/09/2024 (Approximate), Expires: 05/09/2025 Start: 05-09-2024 End: 05-09-2024 Patient encounter procedure [facility] Comment on above: Arrived Start: 04-11-2024 End: 04-11-2025 CBC panel - Blood by Automated count CBC Lab Routine Diabetes mellitus screening Expected: 04/11/2024 (Approximate), Expires: 04/11/2025 [facility] Work Phone: Comment on above: Expected: 04/11/2024 (Approximate), Expires: 04/11/2025 Start: 04-11-2024 End: 04-11-2025 Measurement of glucose 1 hour after glucose challenge for glucose tolerance test Glucose tolerance, 1 hour Lab Routine Diabetes mellitus screening Expected: 04/11/2024 (Approximate), Expires: 04/11/2025 [facility] Comment on above: Expected: 04/11/2024 (Approximate), Expires: 04/11/2025 Start: 04-11-2024 End: 04-11-2024 Patient encounter procedure 04/11/2024 10:30 AM EDT Routine [facility] [address] [place] [id number] Little Christie PA [address] [place] [address] [place] [address] Arrived [facility] Comment on above: Arrived Start: 03-06-2024 Influenza vaccination Influenza Vacc ine (#1) [facility] Start: 11-27-2022 Adolescent depressio n screening assessment Depression Screening [facility] Start: 03-06-2022 Influenza vaccination [facility] Start: 02-07-2022 End: 02-07-2022 Patient encounter procedure 02/07/2022 Office Visit Family Medicine Queta Osorio DO [address] [place] [phone] [facility] Start: 12-19-2021 End: 12-19-2021 Patient encounter procedure 12/19/2021 Office Visit Family Medicine Queta Osorio DO [address] [place] [phone] [facility] Start: 12-07-2021 COVID-19 Vaccine (3 - Booster for Moderna series) COVID-19 Vaccine (3 - Booster for Moderna series) [facility] Start: 11-27-2021 End: 11-27-2021 Patient encounter procedure 11/27/2021 Office Visit Family Medicine Queta Osorio DO [address] [place] [phone] [facility] Start: 11-24-2021 Adolescent depressio n screening assessment Depression Screening [facility] Start: 11-24-2021 Hepatitis C screening Hepatitis C Sc reening [facility] Start: 11-24-2021 HIV screening HIV Screening [facility] Start: 11-24-2021 Social Influencers o f Health Screening Social Influencers of Health Screening [facility] Start: 03-06-2021 Influenza vaccination Sequenti al Influenza Vaccine (Season Ended) [facility] Start: 2017 Screening for malign ant neoplasm of cervix Cervical Cancer Screening: Pap Smear [facility] Start: 2015 DTaP,Tdap,and Td Vac cines (1 - Tdap) DTaP,Tdap,and Td Vaccines (1 - Tdap) [facility] Start: 2014 Hepatitis C screening Hepatitis C Sc reening [facility] Start: 2011 HIV screening HIV Screening [facility] Start: 2008 COVID-19 Vaccine (1) COVID-19 Vaccin e (1) [facility] Start: 2008 Depression screening using PHQ-9 (Patient Health Questionnaire 9) score Depression Screening (PHQ9) [facility] Start: 2007 HPV Vaccines (1 - 2- dose series) HPV Vaccines (1 - 2-dose series) [facility] Start: 2007 Vaccination for april n papillomavirus HPV Vaccines (1 - 2-dose series) [facility] Start: 2001 COVID-19 Vaccine (1) COVID-19 Vaccin e (1) [facility] Start: 1999 History and physical examination, annual for health maintenance Wellness Visit [facility] Start: 1996 Screening for Chlamy marilee trachomatis Chlamydia Screening [facility] Start: 1996 Screening for malign ant neoplasm of cervix Pap Smear [facility] Start: 1996 Tetanus vaccination Tetanus: Every 1 0yrs [facility] Chlamydia trachomati s rRNA assay Chlamydia/GC/Trichomon as Amplified RNA Microbiology Routine Vaginal sore Ordered: 12/05/2020 [facility] Comment on above: Ordered: 12/05/2020 HSV by PCR Superfici al Site HSV by PCR Superficial Site Lab Routine Vaginal sore Ordered: 12/05/2020 [facility] Comment on above: Ordered: 12/05/2020 Neisseria gonorrhoea e nucleic acid detection Chlamydia/Gonorrhoeae Amplified RNA Microbiology Routine Vaginal sore Ordered: 12/05/2020 [facility] Comment on above: Ordered: 12/05/2020 Trichomonas vaginali s Amplified RNA Trichomonas vaginalis Amplified RNA Microbiology Routine Vaginal sore Ordered: 12/05/2020 [facility] Comment on above: Ordered: 12/05/2020 Immunizations Immunization Date Immunization Notes Care Provider Bj [email or web address] 07-09-2021 SARS-CoV-2 (COVID-19 ) mRNA-1273 vaccine Gary MORRIS [facility] [place] 06-08-2021 SARS-CoV-2 (COVID-19 ) mRNA-1273 vaccine Gary MORRIS [facility] [place] 04-10-2011 influenza virus vaccine, unspecified formulation Little Ezra ESSENCE Work Phone: [facility] Payers Date Payer Category Payer Private Health Insurance [employer] Member Subscriber Plan / Payer (Effective 2022-Present) Name: Leslie Ford Relation to Subscriber: Self Name: Leslie Ford Payer ID: Not on file Group ID: Not on file Type: Not on file Address: [place] [id number] 2021 Medicaid [id number] 2020 Medicaid [id number]. [id number] 2016 Unknown [id number] 2013 Unknown [id number] 1996 Unknown [id number] 2.16.840.1.728694.3.579.2. 903 1996 Unknown [id number] 2.16.840.1.831206.3.579.2. 114 1996 Unknown [id number] 2.16.840.1.764139.3.579.2. 1142 1996 Unknown [id number] 2.16.840.1.739453.3.579.2. 114 1996 Unknown [id number] 2.16.840.1.490174.3.579.2. 1143 1996 Unknown [id number] 2.16.840.1.038504.3.579.2. 1143 1996 Unknown [id number] 2.16.840.1.979163.3.579.2. 593 1996 Unknown [id number] 2.16.840.1.082600.3.579.2. 593 1996 Unknown [id number] 2.16.840.1.053297.3.579.2. 593 1996 Unknown [id number] 2.16.840.1.062119.3.579.2. 593 1996 Unknown [id number] 2.16.840.1.447894.3.579.2. 593 1996 Unknown [id number] 2.16.840.1.913732.3.579.2. 593 1996 Unknown [id number] 2.16.840.1.459469.3.579.2. 593 1996 Unknown [id number] 2.16.840.1.119224.3.579.2. 727 1996 Unknown [id number] 2.16.840.1.968121.3.579.2. 1286 1996 Unknown [id number] 2.16.840.1.997394.3.579.2. 1286 1996 Unknown [id number] 2.16.840.1.499954.3.579.2. 1259 1996 Unknown [id number] 2.16.840.1.296410.3.579.2. 1259 1996 Unknown [id number] 2.16.840.1.616144.3.579.2. 1259 1996 Unknown [id number] 2.16.840.1.829906.3.579.2. 1259 1996 Unknown [id number] 2.16.840.1.459922.3.579.2. 1259 1996 Unknown [id number] 2.16.840.1.408928.3.579.2. 1259 1996 Unknown [id number] 2.16.840.1.427184.3.579.2. 1259 1996 Unknown [id number] 2.16.840.1.668177.3.579.2. 1259 1960 Unknown [id number] 2.16.840.1.873153.3.579.2. 727 1959 Medicaid [id number] 1959 Self-pay 1959 Unknown [id number] 1959 Unknown [id number] 1959 Unknown [id number] Unknown [id number] 2.16.840.1.216303.3.579.2. 531 Social History Date Type Detail Facility Start: 12-05-2020 End: 02-27-2023 Tobacco smoking status NHIS Never smoker [facility] Start: 12-05-2020 End: 11-27-2021 Tobacco use and exposure Never used [facility] Start: 12-05-2020 Alcohol intake Current drinke r of alcohol (finding) [facility] Start: 12-05-2020 End: 11-27-2021 History SDOH Alcohol Frequency 1 [facility] Start: 12-05-2020 Alcohol Comment occ [facility] Start: 1996 [facility] Start: 11-17-2021 End: 02-12-2022 Exposure to SARS-CoV-2 (event) Not sure [facility] Tobacco smoking stat [facility] Tobacco smoking consumption unknown [facility] Start: 11-27-2021 End: 05-09-2024 Alcohol intake Lifetime non-drinker (finding) [facility] Start: 1995 Sex Assigned At Female [facility] Start: 12-17-2023 Sex Assigned At F [facility] Tobacco smoking status Never [facility] Start: 03-28-2023 Tobacco smoking stat [facility] Ex-smoker [facility] History of tobacco use Current smoker [facility] History of tobacco use Cigarette Smoker [facility] Start: 12-17-2023 History of Social function [facility] Start: 11-17-2023 [facility] Start: 01-19-2023 Gender identity Identifies as female gender (finding) [facility] Functional Status Date Assessment Result Facility 02-27-2023 Functional Status N/A General Greco fannie Kang Clinical Notes 12-05-2020 to 05-09-2024 Lucrecia Hein, MA - 05/09/2024 11:30 AM [facility] Mahan - 04/11/2024 10:30 AM Chema Osorio DO - 02/12/2022 7:30 AM KATELYNNTDana Rosario MA - 01/08/2022 8:00 AM EDT [...] nursing note reviewed. Exam conducted with a muffler installer present. Vitals: Estimated body mass index is [...] time. Order was given on 04/11/2024. Per [facility] recommendations patient is to start growth scans every 4 weeks, NST/BILL weekly until 32 weeks, then NST bi-weekly. Orders Placed This Encounter Procedures POCT urinalysis dipstick manually resulted Follow Up: Patient is to return to office in 2 week for routine OB appointment. Documented by Lucrecia Hein MA on behalf of: Katelyn Smith DO documented in this encounter [facility] 04-11-2024 History of Present illness Narrative Reason [...] of: ESSENCE Haley documented in this encounter [facility] 02-27-2023 Note Chief Complaint consultation for back [...] with excisional biopsy under local anesthesia at [facility]; call with problems/questions. Follow-up No qualifying data [...] Recorded SARS-CoV-2 (COVID-19) mRNA-1273 vaccine 06/08/2021 Recorded [facility] Comment on above: Result Comment: Elec tronically Signed By: DOMINGO RANGEL, Gary Jackson\Date and Time Signed: 02/27/23 16:20 EDT 02-12-2022 History of Present illness Narrative Attempted to complete ZAPart and patient was not online despite speaking to SEBASTIAN prior to appointment. Attempted to call on phone 3 separate times before noon with no answer. May reschedule at later date. documented in this encounter [facility] 01-08-2022 History of Present illness Narrative [...] due to buspirone. documented in this encounter [facility] 12-10-2021 Evaluation note Encounter Date Diagnosis Assessment Notes Dec, Irritable bowel syndrome with diarrhea (ICD-10 - K58.0) Continue medications without change Dec, Epigastric pain (ICD-10 - R10.13) Dec, Chronic nausea (ICD-10 - R11.0) Dec, Family history of carcinoma in situ of anal canal (ICD-10 - Z84.89) Dec, Other Continue Zofran prn Pt to call if symptoms worsen [facility] Other 05-25-2022 History of Present illness Narrative* Queta Nathanael Devon, DO - 11/27/2021 2:00 PM EDT Subjective Patient ID: Leslie Ford is a 26 y.o. female. Chief Complaint Patient presents with [facility] Care 26 y.o. female presents to [facility]. History of anxiety and depression. [...] it ( July 2017) [id number] History of Present illness Narrative* Dana Rosario [...] like me to do? documented in [facility]Ber[facility] [id number] History of Present illness Narrative* James Churchill PA-C - 12/05/2020 8:22 PM EDT Images from the original note were not included. Patient Name: [facility] Location: [place] Briceño [facility] [id number] Date Of : Date Of Visit: 1995 12/05/2020 MRN# Provider: [id number] James Churchill PA-C Chief Complaint Patient presents [...] urine from irritatingthe sores. ? Take an vnvv-zai-yfybhfk pain medicine, such as acetaminophen (Tylenol), ibuprofen [...] Log into your personal health record on [email or web address] and enter E579 in the Education box to learn more about Genital Herpes: Care Instructions. Current as of: August 31, 2019 Content Version: 12.8 [employer]. Care instructions adapted under license by your healthcare professional. If you have questions about a medical condition or this instruction, always ask your healthcare professional. [employer] disclaims any warranty or liability for your use of this information. documented in this [id number] Instructions* Patient Instructions* James Churchill PA-C - [...] urine from irritatingthe sores. ? Take an vsfo-cun-uldofol pain medicine, such as acetaminophen (Tylenol), ibuprofen [...] Log into your personal health record on [email or web address] and enter E579 in the Education box to learn more about Genital Herpes: Care Instructions. Current as of: August 31, 2019 Content Version: 12.8 [employer]. Care instructions adapted under license by your healthcare professional. If you have questions about a medical condition or this instruction, always ask your healthcare professional. [employer] disclaims any warranty or liability for your use of this information. [facility] No data available for this section General Surgery [facility] note* Diagnosis Vaginal sore- Primary documented in this encounter [facility] note* Diagnosis Anxiety- Primary Anxiety state, unspecified documented in this encounter [facility] note* Diagnosis Anxiety- Primary Anxiety state, unspecified Hypotension, unspecified hypotension type documented in this encounter [facility] note* Diagnosis Anxiety- Primary Anxiety state, unspecified documented in this encounter [facility] note* Diagnosis Second trimester state, incidental 22 weeks gestation of Diabetes mellitus screening Screening for diabetes mellitus documented in this encounter [facility]* Diagnosis Second trimester state, incidental 26 weeks gestation of History of miscarriage Personal history of other genital system and obstetric disorders documented in this encounter [facility] Narrative - Reported* Type Description Date Medical History IBS [facility] Other Hospital Discharge instructions No data available [...] FoundDocuments on File Type Date Recorded Patient Dental Therapist Expl anation Advance Directives and Living Will Documents on File Type Date Recorded Patient Dental Therapist Expl anation Power of Supervisor [employer] Additional Source Comments INFORMATION SOURCE (unrecogn ized section and content) DATE CREATED AUTHOR 12/30/2017 [facility] DATE CREATED AUTHOR AUTHOR'S ORGANIZ ATION 12/06/2020 [facility] DATE CREATED AUTHOR AUTHOR'S ORGANIZ ATION 02/16/2022 [facility] DATE CREATED AUTHOR AUTHOR'S ORGANIZ ATION 02/27/2022 [facility] DATE CREATED AUTHOR AUTHOR'S ORGANIZ ATION 11/14/2022 [facility] DATE CREATED AUTHOR AUTHOR'S ORGANIZ ATION 03/02/2023 Gregorio Champion [facility] DATE CREATED AUTHOR AUTHOR'S ORGANIZ ATION 07/05/2023 [facility] DATE CREATED AUTHOR AUTHOR'S ORGANIZ ATION 03/25/2024 [facility] DATE CREATED AUTHOR AUTHOR'S ORGANIZ ATION 05/27/2024 [facility] dical Specialists EPIC Reason for Visit [...] Care Teams (unrecognized sec tion and content) 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 Start Date End Date Queta Osorio DO [address] [place] [id number] PCP - General Family Medicine 11/27/21 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 Start Date End Date Queta Osorio DO [address] [place] [id number] PCP - General Family Medicine 11/27/21 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 Start Date End Date Queta Osorio DO [address] [place] [address] PCP - General Family Medicine 11/27/21 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 Start Date End Date Homar Beltran MD [address] [place] [address] PCP - General Family Medicine 01/20/23 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 Start Date End Date Homar Beltran MD [address] [place] [address] PCP - General Family Medicine 01/20/23 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 [facility]. provides no warranty or guarantee of the accuracy or completeness of information in this document.
--- NOTE | 2024-06-04 09:30 | US_ITS ---
[address] [address] Patient Name: KISHAN RAMSEY MRN: [id number] date: 1995 Sex: F Assigned Patient Location: [facility] Current Patient Location: [facility] Accession/Order Number: [id number] Exam Date: 06/04/2024 09:45 Report Date: 06/05/2024 06:12 At the request of: KATELYN DUVALL Procedure: US OB BPP w non-stress EXAMINATION: US OB BPP w non-stress HISTORY:History of miscarriage COMPARISON: No relevant comparison available. TECHNIQUE: Ultrasound biophysical profile was performed in the radiology department. BREATHING MOVEMENTS: 2 GROSS BODY MOVEMENTS: 2 TONE: 2 QUALITATIVE AMNIOTIC FLUID VOLUME: 2 PRESENTATION: CEPHALIC HEART RATE: 144.39 bpm AMNIOTIC FLUID VOLUME: 14.71 cm GESTATIONAL AGE: 30 weeks 4 days US/US OB BPP w non-stress IMPRESSION: Total biophysical profile score: 8 Electronically authenticated by: SHAINA SHOEMAKER Date: 06/05/2024 06:12
[2024-06-04 09:38] VITALS: BP 116/67; PULSE 89
== END 2024-06-04 10:08 | disposition home or self-care (01) ==
LOC: FBCO 07:31 → FBC 09:12
PROVIDERS: PCP Family Medicine; Visit Provider Obstetrics & Gynecology
DX: O26.893 Other specified pregnancy related conditions, third trimester (principal); Z3A.30 30 weeks gestation of pregnancy
CPT/HCPCS: 76818

== ENCOUNTER 2024-06-08 06:24 | Outpatient (OUT) | payer OTHER, SELFPAY ==
--- NOTE | 2024-06-08 | US_ITS ---
[address] [address] Patient Name: KISHAN RAMSEY MRN: [id number] date: 1995 Sex: F Assigned Patient Location: [facility] Current Patient Location: [facility] Accession/Order Number: [id number] Exam Date: 06/08/2024 09:01 Report Date: 06/08/2024 09:25 At the request of: KATELYN DUVALL Procedure: US OB BPP w non-stress EXAMINATION: US OB BPP w non-stress HISTORY: History of miscarriage Z87.59 COMPARISON: No relevant comparison available. TECHNIQUE: Ultrasound biophysical profile was performed in the radiology department. non-reactive stress testing was performed by nursing staff in the birthing center. FINDINGS: BREATHING MOVEMENTS: 2 GROSS BODY MOVEMENTS: 2 TONE: 2 QUALITATIVE AMNIOTIC FLUID VOLUME: 2 PRESENTATION: CEPHALIC HEART RATE: 126.76 bpm AMNIOTIC FLUID VOLUME: 15.9 cm GESTATIONAL AGE: 31 weeks 1 day US/US OB BPP w non-stress IMPRESSION: Total biophysical profile score: 8 Electronically authenticated by: AKUA MELENDEZ Date: 06/08/2024 09:25
--- OUTSIDE RECORDS SUMMARY | 2024-06-08 06:27 | XMS_ITS | CCD ---
Author Organization [facility] Care Team Providers Care Triage Nurse Name Role Phone KIM SUTHERLAND Unavailable Unavailable WILYL CONKLIN Unavailable Unavailable HOMAR BELTRAN Unavailable Unavailable HOMAR BELTRAN Unavailable Unavailable No, Physician Primary Care Provider Unavailsuman e FINN, PHYSICIAN Primary Care Unavailable JAMES ALCAZAR Attending Unavailable Unavailable Primary Care Provider Unavailsuman e Queta Osorio DO Primary Care Provider [phone] Bret Long Unavailable RICE RICE, QUETA QUETA M~[id number] Attending Unavailable RICE RICE, QUETA QUETA M~[id number] Primary Ca re Unavailable RICE RICE, QUETA QUETA M~[id number] Attending Unavailable RICE RICE, QUETA QUETA M~[id number] Primary Ca re Unavailable RICE RICE, QUETA QUETA M~[id number] Attending Unavailable RICE RICE, QUETA QUETA M~[id number] Primary Ca re Unavailable RICE RICE, QUETA QUETA M~[id number] Attending Unavailable RICE RICE, QUETA QUETA M~[id number] Primary Ca re Unavailable RICE RICE, QUETA QUETA M~[id number] Referring Unavailable RICE RICE, QUETA QUETA M~[id number] Primary Ca re Unavailable ITA REYES Admitting [...] Care Unavailable SENAIT MARTIN Attending Unavailable KATELYN SMITH Referring Unavailable HOMAR BELTRAN Primary Care Unavailable Homar Beltran MD Primary Care Provider [phone] LITTLE CHRISTIE Attending Unavailable KATELYN SMITH Attending Unavailable LITTLE CHRISTIE Attending Unavailable LUIS, KATELYN Attending Unavailable LITTLE CHRISTIE Attending Unavailable KATELYN SMITH Attending Unavailable LITTLE CHRISTIE Attending Unavailable Allergies Allergy Classification Reported Allergen(s) Allergy Type Date of Onset Reaction(s) Facility (1 source) No Known Medication Allergies; Translations: [No Known Medication Allergies] Propensity to adverse reactions (disorder) [facility] Repository Medications Current Medications Medication Drug Class(es) Dates Sig (Normalized) Sig (Original) aspirin 81 mg delayed release oral tablet (7 sources) Platelet Aggregation Inhibitor, Nonsteroidal Anti-inflammatory Drug Start: 03-23-2024 take 1 tablet by mouth in the morning aspirin 81 MG EC tablet Take 81 mg by mouth in the morning. 03/23/2024 Active azithromycin 250 mg oral tablet (1 source) Macrolide Antimicrobial Start: 05-24-2024 azithromycin (Zithromax Z-Milton) 250 MG tablet Indications: Upper respiratory tract infection, unspecified type As directed 6 tablet 05/24/2024 Active busPIRone hydrochloride 10 mg oral tablet [...] omeprazole 20 mg delayed release oral capsule (8 sources) Proton Pump Inhibitor Start: 12-31-2023 End: 04-29-2024 take 1 capsule by mouth before mealtime omeprazole (PriLOSEC) [address] capsule Indications: Gastroesophageal Reflux Disease , Heartburn Take 1 capsule (20 mg) by mouth in the morning. Take before meals. Do not crush or chew.. 30 capsule 3 12/31/2023 Active ondansetron 4 mg oral tablet (14 sources) Serotonin-3 Receptor Antagonist Start: 02-27-2023 Zofran [...] Vit-Fe Fumarate-FA ( Plus/Iron) 27-1 MG tablet (8 sources) Start: 12-17-2023 End: 12-16-2024 take 1 [...] of ] 04-11-2024 Episodic Residual codes; unclassified (6 sources) Gestation period, 26 weeks; Translations: [26 weeks gestation of ] Onset: 05-09-2024 05-09-2024 Episodic Residual codes; unclassified (6 sources) H/O: miscarriage; Translations: [Personal history of [...] UA Positive Negative - 4(70) +++ mg/dL [facility] Comment on above: small Blood, UA Negative Negative - 50 Angel Luis/mcL [facility] Clarity, UA Clear [facility] Color, UA Miryam [facility] Glucose, UA Negative Negative - 2000(110) ++++ mg/dL [facility] Interpretation and review of laboratory results Abnormal [facility] Ketones, UA Positive Negative - 160(16) ++++ mg/dL [facility] Comment on above: trace Leukocytes, UA Negative Negative - 500+++ Drew/mcL [facility] Nitrite, UA Negative Negative - Positive [facility] pH, UA 6 5 - 9 [facility] Protein, UA Positive Negative - 1999(20) ++++ mg/dL [facility] Comment on above: 30 mg Spec Grav, UA 1.03 1 - 1.03 [facility] Urobilinogen, UA 0.2 0.2 - 12 mg/dL [facility] Urinalysis macro (dipstick) panel (U)on 04-11-2024 Bilirubin, UA Negative Negative - 4(70) +++ mg/dL [facility] Blood, UA Negative Negative - 50 Angel Luis/mcL [facility] Clarity, UA Clear [facility] Color, UA Yellow [facility] Glucose, UA Negative Negative - 1999(110) ++++ mg/dL [facility] Interpretation and review of laboratory results Normal [facility] Ketones, UA Negative Negative - 160(16) ++++ mg/dL [facility] Leukocytes, UA Negative Negative - 500+++ Drew/mcL [facility] Nitrite, UA Negative Negative - Positive [facility] pH, UA 6.5 5 - 9 [facility] Protein, UA Negative Negative - 1999(20) ++++ mg/dL [facility] Spec Grav, UA 1.020 1 - 1.03 [facility] Urobilinogen, UA 0.2 0.2 - 12 mg/dL [facility] Facesheeton 03-02-2023 Facesheet [id number] CD:127 Normal [facility] Ambulatory Visit Summaryon 0 02-27-2023 Ambulatory Visit [...] History of pre-eclampsia Insomnia Migraines Overweight Normal [facility] RAD - Ultrasound Reporton RAD - Ultrasound Report [id number] D:127 Normal [facility] Physician Referralon 023 Physician Referral [id number] D:127 Normal [facility] INSULINon 11-08-2022 Insulin 7.7 uIU/mL Normal 2.6-24.9 [facility] Comment on above: Performed By: #### V ITAD, IRON #### [facility] [address] [address] [address] Chucho Jesus CBC AUTO DIFFon 11-07-2022 BASO # 0.0 103/ul Normal 0.0-0.1 [facility] Comment on above: Performed By: #### V ITAD, IRON #### [facility] [address] [address] [address] Chucho Jesus Basophils/100 WBC (Bld) 0.6 % Normal 0.2-2.0 [facility] Comment on above: Performed By: #### V ITAD, IRON #### [facility] [address] [address] [address] Chucho Jesus EO # 0.1 103/ul Normal 0.0-0.7 [facility] Comment on above: Performed By: #### V ITAD, IRON #### [facility] [address] [address] [address] Chucho Jesus Eosinophils/100 WBC (Bld) 1.4 % Normal 0.9-7.0 [facility] Comment on above: Performed By: #### V ITAD, IRON #### [facility] [address] [place] [address] Dr. Chucho Jesus Erythrocyte distribution width (RBC) [Ratio] 13.9 % Normal 11.0-15.0 [facility] Comment on above: Performed By: #### V ITAD, IRON #### [facility] [address] [place] [address] Dr. Chucho Jesus Hematocrit (Bld) [Volume fraction] 45.6 % Normal 36.0-48.0 [facility] Comment on above: Performed By: #### V ITAD, IRON #### [facility] [address] [place] [address] Dr. Chucho Jesus Hemoglobin (Bld) [Mass/Vol] 15.1 g/dL Normal 12.0-16.0 [facility] Comment on above: Performed By: #### V ITAD, IRON #### [facility] [address] [place] [address] Dr. Chucho Jesus IG # 0.01 10e3/ul Normal 0.00-0.03 [facility] Comment on above: Performed By: #### V ITAD, IRON #### [facility] [address] [place] [address] Dr. Chucho Jesus IG % 0.1 % Normal 0.0-0.5 [facility] Comment on above: Performed By: #### V ITAD, IRON #### [facility] [address] [place] [address] Dr. Chucho Jesus LYMPH # 1.9 103/ul Normal 1.2-3.8 [facility] Comment on above: Performed By: #### V ITAD, IRON #### [facility] [address] [place] [address] Dr. Chucho Jseus Lymphocytes/100 WBC (Bld) 26.3 % Normal 20.5-60.0 [facility] Comment on above: Performed By: #### V ITAD, IRON #### [facility] [address] [place] [address] Dr. Chucho Jesus MANUAL DIFF REQ NO Normal [facility] Comment on above: Performed By: #### V ITAD, IRON #### [facility] [address] [place] [address] Dr. Chucho Jesus MCH (RBC) [Entitic mass] 27.9 pg Normal 26.7-34.0 [facility] Comment on above: Performed By: #### V ITAD, IRON #### [facility] [address] [place] [address] Dr. Chucho Jesus MCHC (RBC) [Mass/Vol] 33.1 g/dL Normal 29.9-35.2 [facility] Comment on above: Performed By: #### V ITAD, IRON #### [facility] [address] [place] [address] Dr. Chucho Jesus MCV (RBC) [Entitic vol] 84.1 fL Normal 81.0-99.0 [facility] Comment on above: Performed By: #### V ITAD, IRON #### [facility] [address] [place] [address] Dr. Chucho Jesus MONO # 0.5 103/ul Normal 0.3-0.8 [facility] Comment on above: Performed By: #### V ITAD, IRON #### [facility] [address] [place] [address] Dr. Chucho Jesus Monocytes/100 WBC (Bld) 7.3 % Normal 1.7-12.0 [facility] Comment on above: Performed By: #### V ITAD, IRON #### [facility] [address] [place] [address] Dr. Chucho Jesus NEUT # 4.6 103/ul Normal 1.4-6.5 [facility] Comment on above: Performed By: #### V ITAD, IRON #### [facility] [address] [place] [address] Dr. Chucho Jesus Neutrophils/100 WBC (Bld) 64.3 % Normal 43.0-75.0 [facility] Comment on above: Performed By: #### V ITAD, IRON #### [facility] [address] [address] [address] Chucho Jesus Platelet mean volume (Bld) [Entitic vol] 10.9 fL Normal 9.5-13.5 [facility] Comment on above: Performed By: #### V ITAD, IRON #### [facility] [address], [place] [address] Dr. Chucho Jesus PLT 226 103/ul Normal 150-450 [facility] Comment on above: Performed By: #### V ITAD, IRON #### [facility] [address] [address] [address] Chucho Jesus RBC 5.42 106/ul Critically high 4.20-5.40 [facility] Comment on above: Performed By: #### V ITSONIYA, IRON #### [facility] [address] [address] [address] Chucho Jesus WBC 7.2 103/ul Normal 4.0-11.0 [facility] Comment on above: Performed By: #### V ITSONIYA, IRON #### [facility] [address] [address] [address] Chucho Jesus FREE THYROXINE INDEX T7on FTI 3.29 Normal 1.30-4.50 [facility] Comment on above: Performed By: #### V ITSONIYA, IRON #### [facility] [address] [address] [address] Chucho Jesus T3U 35.0 % Normal 30.0-39.0 [facility] Comment on above: Performed By: #### V ITAD, IRON #### [facility] [address] [address] [address] Chucho Jesus T4 [Mass/Vol] 9.40 ug/dL Normal 4.80-13.90 [facility] Comment on above: Performed By: #### V ITAD, IRON #### [facility] [address] [address] [address] Chucho Jesus GLYCOHEMOGLOBIN A1Con 2022 ADA RECOMMENDATION SEE BELOW Normal [facility] Comment on above: Result Comment: ADA RECOMMENDED LIMIT 4.0 - 6.0 ADA THERAPEUTIC TARGET < 7.0 ACTION SUGGESTED > 7.0 Performed By: #### A 1C #### [facility] [address] [address] [address] Chucho Jesus Glucose [Mass/Vol] 94 mg/dL Normal [facility] Comment on above: Performed By: #### A 1C #### [facility] [address] [address] [address] Chucho Jesus HbA1c (Bld) [Mass fraction] 4.9 % Normal 4.5-6.2 [facility] Comment on above: Performed By: #### A 1C #### [facility] [address] [address] [address] Chucho Jesus IRONon 11-07-2022 Iron [Mass/Vol] 81.0 ug/dL Normal 50.0-170.0 [facility] Comment on above: Performed By: #### V ITAD, IRON #### [facility] [address] [place] [address] Dr. Chucho Jesus LIPID PROFILEon 11-07-2022 CHOL-HDL RATIO NORM SEE BELOW Normal [facility] Comment on above: Result Comment: 3.3 - 4.4 LOW RISK 4.4 - 7.1 AVERAGE RISK 7.1 - 11.0 MODERATE RISK >11.0 HIGH RISK Performed By: #### V ITAD, IRON #### [facility] [address] [place] [address] Dr. Chucho Jesus Cholesterol [Mass/Vol] 126 mg/dL Normal <=200 [facility] Comment on above: Performed By: #### V ITAD, IRON #### [facility] [address] [place] [address] Dr. Chucho Jesus Cholesterol in HDL [Mass/Vol] 38 mg/dL Critically low 40-60 [facility] Comment on above: Performed By: #### V ITAD, IRON #### [facility] [address] [place] [address] Dr. Chucho Jesus Cholesterol in LDL [Mass/Vol] 79.4 mg/dL Normal [facility] Comment on above: Performed By: #### V ITAD, IRON #### [facility] [address] [address] [address] Chucho Jesus Cholesterol.total/C holesterol in HDL [Mass ratio] 3.3 {ratio} Normal [facility] Comment on above: Performed By: #### V ITAD, IRON #### [facility] [address] [address] [address] Chucho Jesus HDL NORMAL > or = 60 mg/dl - LO W CARDIOVASCULAR RISK <40 mg/dl - HIGH CARDIOVASCULAR RISK Normal [facility] Comment on above: Performed By: #### V ITAD, IRON #### [facility] [address] [address] [address] Chucho Jesus LDL CALC NORMAL SEE BELOW Normal [facility] Comment on above: Result Comment: <100 mg/dl OPTIMAL 100 - 129 mg/dl NEAR OR ABOVE OPTIMAL 130 - 159 mg/dl BORDERLINE HIGH 160 - 189 mg/dl HIGH >190 mg/dl VERY HIGH Performed By: #### V ITAD, IRON #### [facility] [address] [place] [address] Dr. Chucho Jesus Triglyceride [Mass/Vol] 43 mg/dL Normal <=150 [facility] Comment on above: Performed By: #### V ITAD, IRON #### [facility] [address] [place] [address] Dr. Chucho Jesus VLDL CALC 8.6 mg/dL Normal [facility] Comment on above: Performed By: #### V ITAD, IRON #### [facility] [address] [address] [address] Chucho Jesus PROF 14(COMP METB)on 023 Albumin [Mass/Vol] 4.2 g/dL Normal 3.4-5.0 [facility] Comment on above: Performed By: #### V ITAD, IRON #### [facility] [address] [place] [address] Dr. Chucho Jesus Albumin/Globulin [Mass ratio] 1.1 {ratio} Normal [facility] Comment on above: Performed By: #### V ITAD, IRON #### [facility] [address] [address] [address] Chucho Jesus ALP [Catalytic activity/Vol] 93 U/L Normal 46-116 [facility] Comment on above: Performed By: #### V ITAD, IRON #### [facility] [address] [address] [address] Chucho Jesus ALT [Catalytic activity/Vol] 16 U/L Normal 14-59 [facility] Comment on above: Performed By: #### V ITAD, IRON #### [facility] [address] [address] [address] Chucho Jesus Anion gap [Moles/Vol] 14.3 mmol/L Normal [facility] Comment on above: Performed By: #### V ITAD, IRON #### [facility] [address] [place] [address] Dr. Chucho Jesus AST [Catalytic activity/Vol] 16 U/L Normal 15-37 [facility] Comment on above: Performed By: #### V ITAD, IRON #### [facility] [address] [place] [address] Dr. Chucho Jesus Bilirubin [Mass/Vol] 1.0 mg/dL Normal 0.2-1.0 [facility] Comment on above: Performed By: #### V ITAD, IRON #### [facility] [address] [place] [address] Dr. Chucho Jesus Calcium [Mass/Vol] 9.4 mg/dL Normal 8.5-10.1 [facility] Comment on above: Performed By: #### V ITAD, IRON #### [facility] [address] [place] [address] Dr. Chucho Jesus Chloride [Moles/Vol] 103 mmol/L Normal 98-107 [facility] Comment on above: Performed By: #### V ITAD, IRON #### [facility] [address] [address] [address] Chucho Jesus CO2 [Moles/Vol] 24.9 mmol/L Normal 21.0-32.0 [facility] Comment on above: Performed By: #### V ITAD, IRON #### [facility] [address] [address] [address] Chucho Jesus Creatinine [Mass/Vol] 0.68 mg/dL Normal 0.55-1.02 [facility] Comment on above: Performed By: #### V ITAD, IRON #### [facility] [address] [address] [address] Chucho Jesus EGFR-AF AZERBAIJANI >60 Normal >=60 [facility] Comment on above: Performed By: #### V ITAD, IRON #### [facility] [address] [address] [address] Chucho Jesus EGFR-NON AF AZERBAIJANI >60 Normal >=60 [facility] Comment on above: Performed By: #### V ITAD, IRON #### [facility] [address] [place] [address] Dr. Chucho Jesus Globulin (S) [Mass/Vol] 3.9 g/dL Normal [facility] Comment on above: Performed By: #### V ITAD, IRON #### [facility] [address] [place] [address] Dr. Chucho Jesus Glucose [Mass/Vol] 89 mg/dL Normal 74-106 [facility] Comment on above: Performed By: #### V ITAD, IRON #### [facility] [address] [place] [address] Dr. Chucho Jesus Potassium [Moles/Vol] 4.2 mmol/L Normal 3.5-5.1 [facility] Comment on above: Performed By: #### V ITAD, IRON #### [facility] [address] [place] [address] Dr. Chucho Jesus Protein [Mass/Vol] 8.1 g/dL Normal 6.4-8.2 [facility] Comment on above: Performed By: #### V ITAD, IRON #### [facility] [address] [place] [address] Dr. Chucho Jesus Sodium [Moles/Vol] 138 mmol/L Normal 136-145 [facility] Comment on above: Performed By: #### V ITAD, IRON #### [facility] [address] [address] [address] Chucho Jesus Urea nitrogen [Mass/Vol] 9.0 mg/dL Normal 7.0-18.0 [facility] Comment on above: Performed By: #### V ITAD, IRON #### [facility] [address] [address] [address] Chucho Jesus Urea nitrogen/Creatinine [Mass ratio] 13.2 mg/mg Normal [facility] Comment on above: Performed By: #### V ITAD, IRON #### [facility] [address] [address] [address] Chucho Jesus TSHon 11-07-2022 TSH 1.668 uIU/mL Normal 0.358-3.740 [facility] Comment on above: Performed By: #### V ITAD, IRON #### [facility] [address] [place] [address] Dr. Chucho Jesus Covid-19 PCR ([facility])on SARS-CoV-2 (COVID-19) RNA DMITRY+probe Ql (Unsp spec) Not detected Normal NOT DETECTED [facility] Comment on above: Result Comment: When [...] for this test is supported by the [employer] of Health and Human Service's declaration that [...] Performed By: #### V ITAD, IRON #### [facility] [address] [place] [address] Dr. Chucho Jesus Covid-19 PCR ([facility])on SARS-CoV-2 (COVID-19) RNA DMITRY+probe Ql (Unsp spec) Not detected Normal NOT DETECTED [facility] Comment on above: Result Comment: When [...] for this test is supported by the [place] of Health and Human Service's declaration that [...] used). Performed By: #### C VDTBH #### [facility] [address] [place] [address] Dr. Chucho Jesus INFLUENZA A AND B AGon 08-11 INFLUANEGH SEE BELOW Normal [facility] Comment on above: Result Comment: Nega tive for Flu A protein angiten. Infection due to Flu A cannot be ruled out. Flu A angiten in the sample may be below the detection limit of the test. Performed By: #### I NFLUAB #### [facility] [address] [place] [address] Dr. Chucho Jesus INFLUBNEG SEE BELOW Normal [facility] Comment on above: Result Comment: Nega tive for Flu B protein antigen. Infection due to Flu B cannot be ruled out. Flu B antigen in the sample may be below the detection limit of the test. Performed By: #### I NFLUAB #### [facility] [address] [place] [address] Dr. Chucho Jesus INFLUENZA A AG Negative Normal NEGATIVE SEE COMMENT [facility] Comment on above: Performed By: #### I NFLUAB #### [facility] [address] [place] [address] Dr. Chucho Jesus INFLUENZA B AG Negative Normal NEGATIVE SEE COMMENT [facility] Comment on above: Performed By: #### I NFLUAB #### [facility] [address] [place] [address] Dr. Chucho Jesus Covid-19 PCR ([facility])on 05-07 SARS-CoV-2 (COVID-19) RNA DMITRY+probe Ql (Unsp spec) Not detected Normal NOT DETECTED [facility] Comment on above: Result Comment: When [...] for this test is supported by the [place] of Health and Human Service's declaration that [...] be used). Performed By: #### V ITAD, IVELISSE #### [facility] [address] [place] [address] Dr. Chucho Jesus INFLUENZA A AND B AGon 05-26 INFLUANEGH SEE BELOW Normal [facility] Comment on above: Result Comment: Nega tive for Flu A protein angiten. Infection due to Flu A cannot be ruled out. Flu A angiten in the sample may be below the detection limit of the test. Performed By: #### V ITAD, IRON #### [facility] [address] [place] [address] Dr. Chucho Jesus INFLUBNEGH SEE BELOW Normal [facility] Comment on above: Result Comment: Nega tive for Flu B protein antigen. Infection due to Flu B cannot be ruled out. Flu B antigen in the sample may be below the detection limit of the test. Performed By: #### V ITAD, IRON #### [facility] [address] [place] [address] Dr. Chucho Jesus INFLUENZA A AG Negative Normal NEGATIVE SEE COMMENT [facility] Comment on above: Performed By: #### V ITAD, IRON #### [facility] [address] [place] [address] Dr. Chucho Jesus INFLUENZA B AG Negative Normal NEGATIVE SEE COMMENT [facility] Comment on above: Performed By: #### V ITAD, IRON #### [facility] [address] [place] [address] Dr. Chucho Jesus INTERNAL CONTROLS Within Normal Limits Normal Wi thin Normal Limits [facility] Comment on above: Performed By: #### V ITAD, IRON #### [facility] [address] [place] [address] Dr. Chucho Jesus ER URINE PROFILEon 2 Bilirubin Ql (U) Negative Normal NEGATIVE [facility] Comment on above: Performed By: #### V ITAD, IRON #### [facility] [address] [place] [address] Dr. Chucho Jesus Clarity (U) CLEAR Normal CLEAR [facility] Comment on above: Performed By: #### V ITAD, IRON #### [facility] [address] [place] [address] Dr. Chucho Jesus Color (U) YELLOW Normal YELLOW [facility] Comment on above: Performed By: #### V ITAD, IRON #### [facility] [address] [place] [address] Dr. Chucho Jesus ERUAHD A micrscopic examination will be performed if indicated. Normal [facility] Comment on above: Performed By: #### V ITAD, IRON #### [facility] [address] [place] [address] Dr. Chucho Jesus Glucose Ql (U) Negative Normal NEGATIVE [facility] Comment on above: Performed By: #### V ITAD, IRON #### [facility] [address] [place] [address] Dr. Chucho Jesus Hemoglobin Ql (U) Negative Normal NEGATIVE [facility] Comment on above: Performed By: #### V ITAD, IRON #### [facility] [address] [address] [address] Chucho Jesus Ketones Ql (U) >=80 Abnormal NEGATIVE [facility] Comment on above: Performed By: #### V ITAD, IRON #### [facility] [address] [address] [address] Chucho Jesus LEUKOCYTES Negative Normal NEGATIVE [facility] Comment on above: Performed By: #### V ITAD, IRON #### [facility] [address] [address] [address] Chucho Jesus Nitrite Ql (U) Negative Normal NEGATIVE [facility] Comment on above: Performed By: #### V ITAD, IRON #### [facility] [address] [address] [address] Chucho Jesus pH (U) 6.0 [pH] Normal 5-9 [facility] Comment on above: Performed By: #### V ITAD, IRON #### [facility] [address] [address] [address] Chucho Jesus Protein (U) [Mass/Vol] 100 mg/dL Abnormal NEGATIVE/ TRACE [facility] Comment on above: Performed By: #### V ITAD, IRON #### [facility] [address] [address] [address] Chucho Jesus SPEC GRAVITY >=1.030 Abnormal 1.005-<=1.025 [facility] Comment on above: Performed By: #### V ITAD, IRON #### [facility] [address] [address] [address] Chucho Jesus UR MICRO IND INDICATED Normal [facility] Comment on above: Performed By: #### V ITAD, IRON #### [facility] [address] [address] [address] Chucho Jesus Urobilinogen Qn (U) 0.2 {Chelsea'U}/dL Normal 0.2 - 1. 0 [facility] Comment on above: Performed By: #### V ITAD, IRON #### [facility] [address] [address] [address] Chucho Jesus URon 05-22-2022 , QUAL Negative Normal NEGATIVE [facility] Comment on above: Performed By: #### V ITAD, IRON #### [facility] [address] [address] [address] Chucho Jesus URINE MICROSCOPIC ONLYon BACTERIA NONE SEEN Normal NONE SEEN [facility] Comment on above: Performed By: #### V ITAD, IRON #### [facility] [address] [address] [address] Chucho Jesus Bacteria identified Cx Nom (U) NOT INDICATED Normal [facility] Comment on above: Performed By: #### V ITAD, IRON #### [facility] [address] [place] [address] Dr. Chucho Jesus CAST NONE SEEN Normal NONE SEEN [facility] Comment on above: Performed By: #### V ITAD, IRON #### [facility] [address] [address] [address] Chucho Jesus Crystals LM Nom (Urine sed) NONE SEEN Normal NONE SEEN [facility] Comment on above: Performed By: #### V ITAD, IRON #### [facility] [address] [place] [address] Dr. Chucho Jesus Epithelial cells LM Ql (Urine sed) FEW Abnormal NONE SEEN /RARE [facility] Comment on above: Performed By: #### V ITAD, IRON #### [facility] [address] [address] [address] Chucho Jesus MUCOUS MODERATE Abnormal NONE SEEN [facility] Comment on above: Performed By: #### V ITAD, IRON #### [facility] [address] [address] [address] Chucho Jesus RBC NONE SEEN Abnormal 0-2 [facility] Comment on above: Performed By: #### V ITAD, IRON #### [facility] [address] [address] [address] Chucho Jesus WBC NONE SEEN Normal NONE SEEN [facility] Comment on above: Performed By: #### V AMAURY, IRON #### [facility] [address] [address] [address] Chucho Jesus XR LSPINE 2_3 VIEWSon [...] MARCO CAMPOS Date: 2022-05-22 12:28 Normal [facility] INSULINon 04-25-2022 Insulin 10.4 uIU/mL Normal 2.6-24.9 [facility] Comment on above: Performed By: #### V AMAURY IRON #### [facility] [address] [address] [address] Chucho Jesus CBC AUTO DIFFon 04-24-2022 BASO # 0.0 103/ul Normal 0.0-0.1 [facility] Comment on above: Performed By: #### C BC #### [facility] [address] [address] [address] Chucho Jesus Basophils/100 WBC (Bld) 0.6 % Normal 0.2-2.0 [facility] Comment on above: Performed By: #### C BC #### [facility] [address] [address] [address] Chucho Jesus EO # 0.1 103/ul Normal 0.0-0.7 [facility] Comment on above: Performed By: #### C BC #### [facility] [address] [place] [address] Dr. Chucho Jesus Eosinophils/100 WBC (Bld) 1.8 % Normal 0.9-7.0 [facility] Comment on above: Performed By: #### C BC #### [facility] [address] [place] [address] Dr. Chucho Jesus Erythrocyte distribution width (RBC) [Ratio] 12.9 % Normal 11.0-15.0 [facility] Comment on above: Performed By: #### C BC #### [facility] [address] [place] [address] Dr. Chucho Jesus Hematocrit (Bld) [Volume fraction] 45.6 % Normal 36.0-48.0 [facility] Comment on above: Performed By: #### C BC #### [facility] [address] [place] [address] Dr. Chucho Jesus Hemoglobin (Bld) [Mass/Vol] 14.7 g/dL Normal 12.0-16.0 [facility] Comment on above: Performed By: #### C BC #### [facility] [address] [place] [address] Dr. Chucho Jesus IG # 0.02 10e3/ul Normal 0.00-0.03 [facility] Comment on above: Performed By: #### C BC #### [facility] [address] [place] [address] Dr. Chucho Jesus IG % 0.3 % Normal 0.0-0.5 [facility] Comment on above: Performed By: #### C BC #### [facility] [address] [place] [address] Dr. Chucho Jesus LYMPH # 1.6 103/ul Normal 1.2-3.8 [facility] Comment on above: Performed By: #### C BC #### [facility] [address] [place] [address] Dr. Chucho Jesus Lymphocytes/100 WBC (Bld) 24.5 % Normal 20.5-60.0 [facility] Comment on above: Performed By: #### C BC #### [facility] [address] [place] [address] Dr. Chucho Jesus MANUAL DIFF REQ NO Normal [facility] Comment on above: Performed By: #### C BC #### [facility] [address] [place] [address] Dr. Chucho Jesus MCH (RBC) [Entitic mass] 28.4 pg Normal 26.7-34.0 [facility] Comment on above: Performed By: #### C BC #### [facility] [address] [place] [address] Dr. Chucho Jesus MCHC (RBC) [Mass/Vol] 32.2 g/dL Normal 29.9-35.2 [facility] Comment on above: Performed By: #### C BC #### [facility] [address] [place] [address] Dr. Chucho Jesus MCV (RBC) [Entitic vol] 88.2 fL Normal 81.0-99.0 [facility] Comment on above: Performed By: #### C BC #### [facility] [address] [place] [address] Dr. Chucho Jesus MONO # 0.5 103/ul Normal 0.3-0.8 [facility] Comment on above: Performed By: #### C BC #### [facility] [address] [place] [address] Dr. Chucho Jesus Monocytes/100 WBC (Bld) 7.4 % Normal 1.7-12.0 [facility] Comment on above: Performed By: #### C BC #### [facility] [address] [place] [address] Dr. Chucho Jesus NEUT # 4.4 103/ul Normal 1.4-6.5 [facility] Comment on above: Performed By: #### C BC #### [facility] [address] [place] [address] Dr. Chucho Jesus Neutrophils/100 WBC (Bld) 65.4 % Normal 43.0-75.0 [facility] Comment on above: Performed By: #### C BC #### [facility] [address] [place] [address] Dr. Chucho Jesus Platelet mean volume (Bld) [Entitic vol] 9.9 fL Normal 9.5-13.5 [facility] Comment on above: Performed By: #### C BC #### [facility] [address] [address] [address] Chucho Jesus PLT 225 103/ul Normal 150-450 [facility] Comment on above: Performed By: #### C BC #### [facility] [address] [address] [address] Chucho Jesus RBC 5.17 106/ul Normal 4.20-5.40 [facility] Comment on above: Performed By: #### C BC #### [facility] [address] [address] [address] Chucho Jesus WBC 6.7 103/ul Normal 4.0-11.0 [facility] Comment on above: Performed By: #### C BC #### [facility] [address] [place] [address] Dr. Chucho Jesus FREE THYROXINE INDEX T7on FTI 3.29 Normal 1.30-4.50 [facility] Comment on above: Performed By: #### T 7, TSH, LIPID, CMP #### [facility] [address] [place] [address] Dr. Chucho Jesus T3U 27.0 % Critically low 30.0-39.0 [facility] Comment on above: Performed By: #### T 7, TSH, LIPID, CMP #### [facility] [address] [place] [address] Dr. Chucho Jesus T4 [Mass/Vol] 12.20 ug/dL Normal 4.80-13.90 [facility] Comment on above: Performed By: #### T 7, TSH, LIPID, CMP #### [facility] [address] [place] [address] Dr. Chucho Jesus GLYCOHEMOGLOBIN A1Con 2021 ADA RECOMMENDATION SEE BELOW Normal [facility] Comment on above: Result Comment: ADA RECOMMENDED LIMIT 4.0 - 6.0 ADA THERAPEUTIC TARGET < 7.0 ACTION SUGGESTED > 7.0 Performed By: #### A 1C #### [facility] [address] [place] [address] Dr. Chucho Jesus Glucose [Mass/Vol] 105 mg/dL Normal [facility] Comment on above: Performed By: #### A 1C #### [facility] [address] [address] [address] Chucho Jesus HbA1c (Bld) [Mass fraction] 5.3 % Normal 4.5-6.2 [facility] Comment on above: Performed By: #### A 1C #### [facility] [address] [address] [address] Chucho Jesus IRONon 04-24-2022 Iron [Mass/Vol] 48.0 ug/dL Critically low 50.0-170.0 [facility] Comment on above: Performed By: #### V ITAD, IRON #### [facility] [address] [place] [address] Dr. Chucho Jesus LIPID PROFILEon 04-24-2022 CHOL-HDL RATIO NORM SEE BELOW Normal [facility] Comment on above: Result Comment: 3.3 - 4.4 LOW RISK 4.4 - 7.1 AVERAGE RISK 7.1 - 11.0 MODERATE RISK >11.0 HIGH RISK Performed By: #### V ITAD, IRON #### [facility] [address] [address] [address] Chucho Jesus Cholesterol [Mass/Vol] 184 mg/dL Normal <=200 [facility] Comment on above: Performed By: #### V ITAD, IRON #### [facility] [address] [address] [address] Chucho Jesus Cholesterol in HDL [Mass/Vol] 55 mg/dL Normal 40-60 [facility] Comment on above: Performed By: #### V ITAD, IRON #### [facility] [address] [address] [address] Chucho Jesus Cholesterol in LDL [Mass/Vol] 116.6 mg/dL Normal [facility] Comment on above: Performed By: #### V ITAD, IRON #### [facility] [address] [address] [address] Chucho Jesus Cholesterol.total/C holesterol in HDL [Mass ratio] 3.3 {ratio} Normal [facility] Comment on above: Performed By: #### V ITAD, IRON #### [facility] [address] [address] [address] Chucho Jesus HDL NORMAL > or = 60 mg/dl - LO W CARDIOVASCULAR RISK <40 mg/dl - HIGH CARDIOVASCULAR RISK Normal [facility] Comment on above: Performed By: #### V ITAD, IRON #### [facility] [address] [address] [address] Chucho Jesus LDL CALC NORMAL SEE BELOW Normal [facility] Comment on above: Result Comment: <100 mg/dl OPTIMAL 100 - 129 mg/dl NEAR OR ABOVE OPTIMAL 130 - 159 mg/dl BORDERLINE HIGH 160 - 189 mg/dl HIGH >190 mg/dl VERY HIGH Performed By: #### V ITAD, IRON #### [facility] [address] [place] [address] Dr. Chucho Jesus Triglyceride [Mass/Vol] 62 mg/dL Normal <=150 [facility] Comment on above: Performed By: #### V ITAD, IRON #### [facility] [address] [address] [address] Chucho Jesus VLDL CALC 12.4 mg/dL Normal [facility] Comment on above: Performed By: #### V ITSONIYA, IRON #### [facility] [address] [address] [address] Chucho Jesus PROF 14(COMP METB)on 022 Albumin [Mass/Vol] 3.7 g/dL Normal 3.4-5.0 [facility] Comment on above: Performed By: #### T 7, TSH, LIPID, CMP #### [facility] [address] [place] [address] Dr. Chucho Jesus Albumin/Globulin [Mass ratio] 0.9 {ratio} Normal [facility] Comment on above: Performed By: #### T 7, TSH, LIPID, CMP #### [facility] [address] [place] [address] Dr. Chucho Jesus ALP [Catalytic activity/Vol] 74 U/L Normal 46-116 [facility] Comment on above: Performed By: #### T 7, TSH, LIPID, CMP #### [facility] [address] [address] [address] Chucho Jesus ALT [Catalytic activity/Vol] 16 U/L Normal 14-59 [facility] Comment on above: Performed By: #### T 7, TSH, LIPID, CMP #### [facility] [address] [address] [address] Chucho Jesus Anion gap [Moles/Vol] 12.3 mmol/L Normal [facility] Comment on above: Performed By: #### T 7, TSH, LIPID, CMP #### [facility] [address] [address] [address] Chucho Jesus AST [Catalytic activity/Vol] 13 U/L Critically low 15-37 [facility] Comment on above: Performed By: #### T 7, TSH, LIPID, CMP #### [facility] [address] [place] [address] Dr. Chucho Jesus Bilirubin [Mass/Vol] 0.4 mg/dL Normal 0.2-1.0 [facility] Comment on above: Performed By: #### T 7, TSH, LIPID, CMP #### [facility] [address] [address] [address] Chucho Jesus Calcium [Mass/Vol] 8.9 mg/dL Normal 8.5-10.1 [facility] Comment on above: Performed By: #### T 7, TSH, LIPID, CMP #### [facility] [address] [address] [address] Chucho Jesus Chloride [Moles/Vol] 105 mmol/L Normal 98-107 [facility] Comment on above: Performed By: #### T 7, TSH, LIPID, CMP #### [facility] [address] [address] [address] Chucho Jesus CO2 [Moles/Vol] 26.6 mmol/L Normal 21.0-32.0 [facility] Comment on above: Performed By: #### T 7, TSH, LIPID, CMP #### [facility] [address] [address] [address] Chucho Jesus Creatinine [Mass/Vol] 0.68 mg/dL Normal 0.55-1.02 [facility] Comment on above: Performed By: #### T 7, TSH, LIPID, CMP #### [facility] [address] [place] [address] Dr. Chucho Jesus EGFR-AF AZERBAIJANI >60 Normal >=60 [facility] Comment on above: Performed By: #### T 7, TSH, LIPID, CMP #### [facility] [address] [place] [address] Dr. Chucho Jesus EGFR-NON AF AZERBAIJANI >60 Normal >=60 [facility] Comment on above: Performed By: #### T 7, TSH, LIPID, CMP #### [facility] [address] [place] [address] Dr. Chucho Jesus Globulin (S) [Mass/Vol] 4.3 g/dL Normal [facility] Comment on above: Performed By: #### T 7, TSH, LIPID, CMP #### [facility] [address] [place] [address] Dr. Chucho Jesus Glucose [Mass/Vol] 87 mg/dL Normal 74-106 [facility] Comment on above: Performed By: #### T 7, TSH, LIPID, CMP #### [facility] [address] [place] [address] Dr. Chucho Jesus Potassium [Moles/Vol] 3.9 mmol/L Normal 3.5-5.1 [facility] Comment on above: Performed By: #### T 7, TSH, LIPID, CMP #### [facility] [address] [place] [address] Dr. Chucho Jesus Protein [Mass/Vol] 8.0 g/dL Normal 6.4-8.2 [facility] Comment on above: Performed By: #### T 7, TSH, LIPID, CMP #### [facility] [address] [place] [address] Dr. Chucho Jesus Sodium [Moles/Vol] 140 mmol/L Normal 136-145 [facility] Comment on above: Performed By: #### T 7, TSH, LIPID, CMP #### [facility] [address] [address] [address] Chucho Jesus Urea nitrogen [Mass/Vol] 9.0 mg/dL Normal 7.0-18.0 [facility] Comment on above: Performed By: #### T 7, TSH, LIPID, CMP #### [facility] [address] [address] [address] Chucho Jesus Urea nitrogen/Creatinine [Mass ratio] 13.2 mg/mg Normal [facility] Comment on above: Performed By: #### T 7, TSH, LIPID, CMP #### [facility] [address] [address] [address] Chucho Jesus TSHon 04-24-2022 TSH 1.127 uIU/mL Normal 0.358-3.740 [facility] Comment on above: Performed By: #### T 7, TSH, LIPID, CMP #### [facility] [address] [place] [address] Dr. Chucho Jesus VITAMIN D 25 OHon 04-24-2022 VIT D 25-OH 35.2 ng/mL Normal [facility] Comment on above: Performed By: #### V ITAD, IRON #### [facility] [address] [place] [address] Dr. Chucho Jesus VIT D RANGES SEE BELOW Normal [facility] Comment on above: Result Comment: <20 ng/mL Vit D deficient 20 - <30 ng/mL Vit D insufficient 30 - 100 ng/mL Vit D sufficient >100 ng/mL Potential Toxicity Performed By: #### V ALDAAD, IRON #### [facility] [address] [place] [address] Dr. Chucho Jesus HCG ( test) Ql (U)O rdered By: James Churchill on 12-05-2020 Internal Control Pass [facility] Interpretation and review of laboratory results Normal [facility] POC , UrineOrdered By: James Churchill on 12-05-2020 HCG ( test) Ql (U) Negative Negative [facility] CTA CHEST WITH CONTRASTon CTA CHEST [...] by:Ady Tran MD03/25/17Edited Result - FINAL Normal [facility] Basic Metabolic Profon 02-19 (cont.) Normal [facility] Comment on above: Result Comment: Aver age GFR for 20-29 years old: 116 mL/min/1.73sq mChronic Kidney Disease: <60 mL/min/1.73sq mKidney failure: <15 mL/min/1.73sq meGFR calculated using average adult body mass. Additional eGFR calculator available at:http://www.Skyl[employer].Avantha/multiple_crcl_2011.htm Performed By: #### C DP, BMP, TROPI ####[address] [place] [address]([id number]) Anion gap 14 mmol/L Normal 03-22 [facility] Comment on above: Performed By: #### C DP, BMP, TROPI ####[address] [place] [address](052) BUN/CRE Ratio 13 Normal - [facility] Comment on above: Performed By: #### C DP, BMP, TROPI ####[address] [place] [address] Calcium 9.2 mg/dL Normal 8.6-10.4 [facility] Comment on above: Performed By: #### C DP, BMP, TROPI ####[address] [place] [address] Chloride 105 mmol/L Normal 98-107 [facility] Comment on above: Performed By: #### C DP, BMP, TROPI ####[address] [place] [address] CO2 23 mmol/L Normal 20-31 [facility] Comment on above: Performed By: #### C DP, BMP, TROPI ####[address] [place] [address] Creatinine 0.55 mg/dL Normal 0.50-0.90 [facility] Comment on above: Performed By: #### C DP, BMP, TROPI ####[address] [place] [address] eGFR (non-black) mL/min/{1.73_m2} Normal >60 [facility] Comment on above: Performed By: #### C DP, BMP, TROPI ####[address] [place] [address] Glucose mass conc 96 mg/dL Normal 70-99 [facility] Comment on above: Performed By: #### C DP, BMP, TROPI ####[address] [place] [address] Potassium molar conc 3.6 mmol/L Low 3.7-5.3 [facility] Comment on above: Performed By: #### C DP, BMP, TROPI ####[address] [place] [address] Sodium 142 mmol/L Normal 135-144 [facility] Comment on above: Performed By: #### C DP, BMP, TROPI ####[address] [place] [address] Staging: Normal [facility] Comment on above: Result Comment: Stag e 1: Some kidney damage normal GFRStage 2: Mild kidney damage GFR 60-89Stage 3: Moderate kidney damage GFR 30-59Stage 4: Severe kidney damage GFR 15-29Stage 5: Severe kidney damage GFR <15ESRD - chronic treatment by dialysis or transplantPerformed at [address] [place] [address] Performed By: #### C DEION BMP, TROPI ####[address] [place] [address] Urea nitrogen 7 mg/dL Normal 6-20 [facility] Comment on above: Performed By: #### C DP, BMP, TROPI ####[address] [place] [address] CBC with Diffon 02-19-2017 Abs. Basophil 0.00 k/uL Normal 0.0-0.2 [facility] Comment on above: Result Comment: Perf ormed at [address] [place] [address] Performed By: #### C DP, BMP, TROPI ####[address] [place] [address] Abs.Neutrophil (Seg) 7.10 k/uL Normal 1.8-8.0 [facility] Comment on above: Performed By: #### C DP, BMP, TROPI ####[address] [place] [address] Basophils/100 WBC Auto (Bld) 0 % Normal [facility] Comment on above: Performed By: #### C DP, BMP, TROPI ####[address] [place] [address] Eosinophils 0.30 10*3/uL Normal 0.0-0.4 [facility] Comment on above: Performed By: #### C DP, BMP, TROPI ####[address] [place] [address] Eosinophils/100 leukocytes 3 % Normal [facility] Comment on above: Performed By: #### C DP, BMP, TROPI ####[address] [place] [address] Erythrocyte distribution width Auto Ratio (RBC) 13.6 % Normal 12.1-15.2 [facility] Comment on above: Performed By: #### C DP, BMP, TROPI ####[address] [place] [address] Erythrocytes (RBC) 5.03 10*6/uL Normal 4.0-5.2 [facility] Comment on above: Performed By: #### C DP, BMP, TROPI ####[address] [place] [address] Hematocrit (HCT) 40.2 % Normal 36-46 [facility] Comment on above: Performed By: #### C DP, BMP, TROPI ####[address] [place] [address] Hemoglobin mass conc (Bld) 13.2 g/dL Normal 12.0-16.0 [facility] Comment on above: Performed By: #### C DP, BMP, TROPI ####[address] [place] [address] Lymphocytes 2.90 10*3/uL Normal 1.2-5.2 [facility] Comment on above: Performed By: #### C DP, BMP, TROPI ####[address] [place] [address] Lymphocytes/100 leukocytes 27 % Normal [facility] Comment on above: Performed By: #### C DP, BMP, TROPI ####[address] [place] [address] MCH 26.2 pg Normal 26-34 [facility] Comment on above: Performed By: #### C DP, BMP, TROPI ####[address] [place] [address] MCHC mass conc (RBC) 32.8 g/dL Normal 31-37 [facility] Comment on above: Performed By: #### C DP, BMP, TROPI ####[address] [place] [address] MCV 79.9 fL Low 80-100 [facility] Comment on above: Performed By: #### C DP, BMP, TROPI ####[address] [place] [address] Monocytes 0.60 10*3/uL Normal 0.0-1.0 [facility] Comment on above: Performed By: #### C DP, BMP, TROPI ####[address] [place] [address] Monocytes/100 leukocytes 5 % Normal [facility] Comment on above: Performed By: #### C DP, BMP, TROPI ####[address] [place] [address] Neutrophil (Seg) 65 % Normal [facility] Comment on above: Performed By: #### C DP, BMP, TROPI ####[address] [place] [address] Platelet mean volume (PMV) 9.6 fL Normal 6.0-12.0 [facility] Comment on above: Performed By: #### C DP, BMP, TROPI ####[address] [place] [address] Platelets 278 10*3/uL Normal 140-450 [facility] Comment on above: Performed By: #### C DP, BMP, TROPI ####[address] [place] [address] WBC (Leukocytes) 10.8 10*3/uL Normal 4.5-13.5 [facility] Comment on above: Performed By: #### C DP, BMP, TROPI ####[address] [place] [address] Auto Diff Performed NOT REPORTED Normal [facility] Comment on above: Performed By: #### C DP, BMP, TROPI ####[address] [place] [address] Erythrocyte morphology NOT REPORTED Normal [facility] Comment on above: Performed By: #### C DP, BMP, TROPI ####[address] [place] [address] Platelets NOT REPORTED Normal [facility] Comment on above: Performed By: #### C DP, BMP, TROPI ####[address] [place] [address] WBC Morphology NOT REPORTED Normal [facility] Comment on above: Performed By: #### C DP, BMP, TROPI ####[address] [place] [address] ED Noteon 02-19-2017 HIM IP Note OR Powder Worker Normal [facility] ED Provider Noteon 7 HIM IP Note OR Powder Worker Normal [facility] Troponinon 02-19-2017 Troponin T.cardiac mass conc ug/L Normal <0.03 [facility] Comment on above: Result Comment: Trop onin T results cannot be compared to Troponin-I results. Performed By: #### C DP, BMP, TROPI ####[address] [place] [address] Troponin I.cardiac mass conc Normal [facility] Comment on above: Result Comment: Refe rence Range: <0.03 Within reference range. 0.03-0.09 Possible myocardial damage.Repeat at appropriate intervals to rule out chronic elevation. >= 0.10 Indicative of myocardial damage.Performed at [address] [place] [address] ([phone] Performed By: #### C DP, BMP, TROPI ####[address] [place] [address] Vital Signs Date Time Vital Sign Value Performing Clinician Facility 05-09-2024 11:44-0500 Body mass index (BMI) [Ratio] 33.28 kg/m2 Katelyn Luis DO Work Phone: [facility] 05-09-2024 11:44-0500 Body weight 90.72 kg Katelyn Luis DO Work Phone: [facility] 05-09-2024 11:44-0500 Diastolic blood pressure 64 mm[Hg] Katelyn Luis DO Work Phone: [facility] 05-09-2024 11:44-0500 Systolic blood pressure 118 mm[Hg] Katelyn Luis DO Work Phone: [facility] 04-11-2024 10:37-0400 Body mass index (BMI) [Ratio] 31.12 kg/m2 Little LOWRY Work Phone: [facility] 04-11-2024 10:37-0400 Body weight 84.82 kg Little LOWRY Work Phone: [facility] 04-11-2024 10:37-0400 Diastolic blood pressure 68 mm[Hg] Little LOWRY Work Phone: [facility] 04-11-2024 10:37-0400 Systolic blood pressure 116 mm[Hg] Little LOWRY Work Phone: [facility] 02-27-2023 14:39-0400 Blood Pressure Location Gary MORRIS General [facility] 02-27-2023 14:39-0400 Diastolic blood pressure 66 mm[Hg] Gary MORRIS [facility] [place] 02-27-2023 14:39-0400 Heart rate 70 /min Gary MORRIS [facility] [place] 02-27-2023 14:39-0400 Respiratory rate 16 /min Gary MORRIS [facility] [place] 02-27-2023 14:39-0400 Systolic blood pressure 106 mm[Hg] Gary MORRIS [facility] [place] 01-08-2022 08:09-0400 Body temperature 98.01 [degF] Queta Rice DO Work Phone: [facility] 01-08-2022 08:09-0400 Body weight 75.75 kg Queta Rice DO Work Phone: [facility] 01-08-2022 08:09-0400 Diastolic blood pressure 71 mm[Hg] Queta Rice DO Work Phone: [facility] 01-08-2022 08:09-0400 Heart rate 98 /min Queta Rice DO Work Phone: [facility] 01-08-2022 08:09-0400 Systolic blood pressure 112 mm[Hg] Queta Rice DO Work Phone: [facility] 12-10-2021 14:45-0400 Body height 166.37 cm Bret Long Other [facility] Other 12-10-2021 14:45-0400 Body mass index (BMI) [Ratio] 26.55 kg/m2 Bret Long Other [facility] Other 12-10-2021 14:45-0400 Body weight 73.48 kg Bret Long Other [facility] Other 12-10-2021 14:45-0400 Diastolic blood pressure 72 mm[Hg] Bret Long Other [facility] Other 12-10-2021 14:45-0400 Systolic blood pressure 103 mm[Hg] Bret Long Other [facility] Other 11-27-2021 14:01-0400 Body temperature 98.4 [degF] Queta Rice DO Work Phone: [facility] 11-27-2021 14:01-0400 Body weight 74.84 kg Queta Rice DO Work Phone: [facility] 11-27-2021 14:01-0400 Diastolic blood pressure 64 mm[Hg] Queta Rice DO Work Phone: [facility] 11-27-2021 14:01-0400 Heart rate 98 /min Queta Rice DO Work Phone: [facility] 11-27-2021 14:01-0400 Systolic blood pressure 121 mm[Hg] Queta Rice DO Work Phone: [facility] 12-05-2020 19:26-0400 Heart rate 106 /min James Breece PA-C Work Phone: [facility] 12-05-2020 19:25-0400 Body temperature 98.29 [degF] James Breece PA-C Work Phone: [facility] 12-05-2020 19:25-0400 Body weight 97.98 kg James Breece PA-C Work Phone: [facility] 12-05-2020 19:25-0400 Diastolic blood pressure 86 mm[Hg] James Breece PA-C Work Phone: [facility] 12-05-2020 19:25-0400 Respiratory rate 16 /min James Breece PA-C Work Phone: [facility] 12-05-2020 19:25-0400 SaO2% (BldA) [Mass fraction] 97 % James Breece PA-C Work Phone: [facility] 12-05-2020 19:25-0400 Systolic blood pressure 126 mm[Hg] James Churchill PA-C Work Phone: [facility] Encounters Encounter Date Encounter Type Care Provider Facility Start: 06-07-2024 End: 06-07-2024 Bamboo flowsheet Katelyn Luis DO Work Phone: [facility] Start: 06-07-2024 End: 06-07-2024 Bamboo flowsheet Katelyn Luis DO Work Phone: [facility] Start: 05-24-2024 End: 05-24-2024 ambulatory LITTLE CHRISTIE Not Available Start: 05-24-2024 End: 05-24-2024 Bamboo flowsheet Little LOWRY Work Phone: [facility] Start: 05-24-2024 End: 05-24-2024 Bamboo flowsheet Little LOWRY Work Phone: [facility] Start: 05-09-2024 End: 05-09-2024 Bamboo flowsheet Katelyn Luis DO Work Phone: [facility] Start: 05-09-2024 End: 05-09-2024 Bamboo flowsheet Katelyn Luis DO Work Phone: [facility] Start: 05-09-2024 End: 05-09-2024 Office outpatient visit 15 minutes Katelyn Luis DO Work Phone: [facility] Comment on above: Second trimester pre gnancy; 26 weeks gestation of ; History of miscarriage Start: 05-09-2024 End: 05-09-2024 ambulatory KATELYN LUIS Not Available Start: 04-11-2024 End: 04-11-2024 Bamboo flowsheet Little LOWRY Work Phone: [facility] Start: 04-11-2024 End: 04-11-2024 Bamboo flowsheet Little LOWRY Work Phone: [facility] Start: 04-11-2024 End: 04-11-2024 Office outpatient visit 15 minutes Little LOWRY Work Phone: [facility] Comment on above: Second trimester pre gnancy; 22 weeks gestation of ; Diabetes mellitus screening Start: 04-11-2024 End: 04-11-2024 ambulatory LITTLE ADLEREY Not Available Start: 03-23-2024 End: 03-23-2024 ambulatory KATELYN R LUIS [facility] Start: 03-14-2024 End: 03-14-2024 ambulatory KATELYN LUIS Not Available Start: 02-15-2024 End: 02-15-2024 ambulatory LITTLE ADLEREY Not Available Start: 01-20-2024 End: 01-20-2024 ambulatory KATELYN LUIS Not Available Start: 01-01-2024 End: 01-01-2024 ambulatory LITTLE SHAHNAZ Not Available Start: 12-17-2023 End: 12-17-2023 ambulatory LITTLE SHAHNAZ Not Available Start: 02-27-2023 End: 02-28-2023 ambulatory Gary MORRIS Facility:[facility] Start: 02-27-2023 End: 02-27-2023 Patient encounter procedure Gary MORRIS [facility] Start: 02-23-2023 ambulatory Alexandr Bourgeois Facility:[facility] Start: 02-05-2023 ambulatory Gary MORRIS Facility:[facility] [...] HOMAR BELTRAN . Facility:[facility] Start: 02-18-2022 ambulatory QUETANigel HARPERE M~[id number] [facility] Start: 02-12-2022 ambulatory QUETANigel HARPERE M~[id number] Located within [facility] Start: 02-12-2022 End: 02-12-2022 Telemedicine consultation with patient Queta Huffman Rice DO Work Phone: [facility] Comment on above: Anxiety (Primary Dx) Start: 01-19-2022 Refill Luis Dipalma D O Work Phone: [facility] Start: 01-19-2022 Refill Luis Dipalma D O Work Phone: [facility] Start: 01-08-2022 End: 01-08-2022 ambulatory QUETANigel HARPERE M~[id number] Located within [facility] Start: 01-08-2022 End: 01-08-2022 Office outpatient visit 25 minutes Queta Huffman Rice DO Work Phone: [facility] Comment on above: Anxiety (Primary Dx) ; Hypotension, unspecified hypotension type Start: 01-08-2022 End: 01-08-2022 Patient encounter procedure Queta M Rice DO Work Phone: [facility] Start: 12-11-2021 End: 12-11-2021 ambulatory QUETA QUETA M~[id number] Located within [facility] Start: 12-10-2021 End: 12-10-2021 ambulatory Bret Long Other [facility] Other Start: 12-10-2021 Office outpatient ne w 45 minutes Bret Long [facility] Start: 11-27-2021 End: 11-27-2021 ambulatory QUETA QUETA M~[id number] Located within [facility] Start: 11-27-2021 End: 11-27-2021 Office outpatient new 30 minutes Queta Osorio DO Work Phone: [facility] Comment on above: Anxiety (Primary Dx) Start: 11-27-2021 End: 11-27-2021 Patient encounter procedure Queta Osorio DO Work Phone: [facility] Start: 11-25-2021 Telephone encounter Dana Kinsey [facility] Start: 12-05-2020 End: 12-05-2020 ambulatory PHYSICIAN NO [facility] Start: 12-05-2020 End: 12-05-2020 Office outpatient new 20 minutes James Churchill PA-C Work Phone: [facility] [place] Comment on above: Vaginal sore (Primar y Dx) Start: 02-19-2017 End: 02-19-2017 Emergency department patient visit KIM SUTHERLAND [facility] Procedures Date Procedure Procedure Detail Performing Clinician Start: 05-09-2024 Urnls dip stick/tabl et rgnt non-auto w/o micrscp Katelynkatrin Shaho DO Work Phone: Start: 04-11-2024 Urnls dip stick/tabl et rgnt non-auto w/o micrscp Little Christie PA Work Phone: Start: 11-27-2021 Adult depression scr eening assessment Queta Osorio DO Work Phone: Start: 12-05-2020 Urine test visual color cmprsn meths James DENNYC Work Phone: Start: 02-19-2017 Ct angiography chest w/contrast/noncontrast KIM SUTHERLAND Start: 02-19-2017 SALINE LOCK IV KIM SIBLEY Start: 02-19-2017 TELEMETRY MONITORING SEBASTIAN SUTHERLAND Start: 02-19-2017 BASIC METABOLIC PANEL M DAT SUTHERLAND Start: 02-19-2017 CBC WITH AUTO DIFFERENTIAL KIM SUTHERLAND Start: 02-19-2017 TROPONIN KIM Howell Start: 02-19-2017 EKG 12-LEAD KIM Howell None (qualifier value) Henrik MORRIS Plan of Treatment Date Care Activity Detail Author Start: 05-24-2024 End: 05-24-2024 Patient encounter procedure 05/24/2024 2:10 PM EST Routine [facility] [address] [place] [id number] Little Christie, PA [address] [place], [place] [id number] Arrived [facility] Comment on above: Arrived Start: 05-23-2024 End: 05-23-2024 Patient encounter procedure 05/23/2024 1:50 PM EST Routine [facility] [address] [place] [address] Little Christie, PA [address] [place], [place] [id number] [facility] Start: 05-09-2024 End: 05-09-2025 US biophysical profile w non stress test US biophysical profile w non stress test Imaging Routine Second trimester 26 weeks gestation of History of miscarriage Expected: 05/09/2024 (Approximate), Expires: 05/09/2025 [facility] Work Phone: Comment on above: Expected: 05/09/2024 (Approximate), Expires: 05/09/2025 Start: 05-09-2024 End: 05-09-2025 for [facility] Comment on above: Expected: 05/09/2024 (Approximate), Expires: 05/09/2025 Start: 05-09-2024 End: 05-09-2024 Patient encounter procedure [facility] Comment on above: Arrived Start: 04-11-2024 End: 04-11-2025 CBC panel - Blood by Automated count CBC Lab Routine Diabetes mellitus screening Expected: 04/11/2024 (Approximate), Expires: 04/11/2025 [facility] Work Phone: Comment on above: Expected: 04/11/2024 (Approximate), Expires: 04/11/2025 Start: 04-11-2024 End: 04-11-2025 Measurement of glucose 1 hour after glucose challenge for glucose tolerance test Glucose tolerance, 1 hour Lab Routine Diabetes mellitus screening Expected: 04/11/2024 (Approximate), Expires: 04/11/2025 [facility] Comment on above: Expected: 04/11/2024 (Approximate), Expires: 04/11/2025 Start: 04-11-2024 End: 04-11-2024 Patient encounter procedure 04/11/2024 10:30 AM EDT Routine [facility] [address] [place] [address] Little Christie PA [address] [place] [address] Arrived [facility] Comment on above: Arrived Start: 03-06-2024 Influenza vaccination Influenza Vacc ine (#1) [facility] Start: 11-27-2022 Adolescent depressio n screening assessment Depression Screening Start: 03-06-2022 Influenza vaccination T [facility] Start: 02-07-2022 End: 02-07-2022 Patient encounter procedure 02/07/2022 Office Visit Family Medicine Queta Osorio DO [address] [place] [phone] [facility] Start: 12-19-2021 End: 12-19-2021 Patient encounter procedure 12/19/2021 Office Visit Family Queta Benton DO [address] [place] [phone] [facility] Start: 12-07-2021 COVID-19 Vaccine (3 - Booster for Moderna series) COVID-19 Vaccine (3 - Booster for Moderna series) Start: 11-27-2021 End: 11-27-2021 Patient encounter procedure 11/27/2021 Office Visit [facility] Queta Benton DO [address] [place] [address], [place] [address] [facility] [place] Start: 11-24-2021 Adolescent depressio n screening assessment Depression Screening Start: 11-24-2021 Hepatitis C screening Hepatitis C Sc reening Start: 11-24-2021 HIV screening HIV Screening Start: 11-24-2021 Social Influencers o f Health Screening Social Influencers of Health Screening Start: 03-06-2021 Influenza vaccination Sequenti al Influenza Vaccine (Season Ended) [facility] Start: 2017 Screening for malign ant neoplasm of cervix Cervical Cancer Screening: Pap Smear Start: 2015 DTaP,Tdap,and Td Vac cines (1 - Tdap) DTaP,Tdap,and Td Vaccines (1 - Tdap) Start: 2014 Hepatitis C screening Hepatitis C Sc reening [facility] Start: 2011 HIV screening HIV Screening [facility] Start: 2008 COVID-19 Vaccine (1) COVID-19 Vaccin e (1) [facility] Start: 2008 Depression screening using PHQ-9 (Patient Health Questionnaire 9) score Depression Screening (PHQ9) [facility] Start: 2007 HPV Vaccines (1 - 2- dose series) HPV Vaccines (1 - 2-dose series) Start: 2007 Vaccination for april n papillomavirus HPV Vaccines (1 - 2-dose series) [facility] Start: 2001 COVID-19 Vaccine (1) COVID-19 Vaccin e (1) Start: 1999 History and physical examination, annual for health maintenance Wellness Visit [facility] Start: 1996 Screening for Chlamy marilee trachomatis Chlamydia Screening [facility] Start: 1996 Screening for malign ant neoplasm of cervix Pap Smear [facility] Start: 1996 Tetanus vaccination Tetanus: Every 1 0yrs [facility] Chlamydia trachomati s rRNA assay Chlamydia/GC/Trichomon as Amplified RNA Microbiology Routine Vaginal sore Ordered: 12/05/2020 [facility] Comment on above: Ordered: 12/05/2020 HSV by PCR Superfici al Site HSV by PCR Superficial Site Lab Routine Vaginal sore Ordered: 12/05/2020 [facility] Comment on above: Ordered: 12/05/2020 Neisseria gonorrhoea e nucleic acid detection Chlamydia/Gonorrhoeae Amplified RNA Microbiology Routine Vaginal sore Ordered: 12/05/2020 [facility] Comment on above: Ordered: 12/05/2020 Trichomonas vaginali s Amplified RNA Trichomonas vaginalis Amplified RNA Microbiology Routine Vaginal sore Ordered: 12/05/2020 [facility] Comment on above: Ordered: 12/05/2020 Immunizations Immunization Date Immunization Notes Care Provider Fa cility 07-09-2021 SARS-CoV-2 (COVID-19 ) mRNA-1273 vaccine Gary MORRIS [facility] [place] 06-08-2021 SARS-CoV-2 (COVID-19 ) mRNA-1273 vaccine Gary MORRIS [facility] [place] 04-10-2011 influenza virus vaccine, unspecified formulation Little LOWRY Work Phone: [facility] Healthcare Payers Date Payer Category Payer Private Health Insurance [facility] MEDICAID [id number] 2021 Medicaid [id number] 2020 Medicaid [id number]. [id number] 2016 Unknown [id number] 2013 Unknown [id number] 1996 Unknown [id number] 2.16.840.1.674838.3.579.2. 903 1996 Unknown [id number] 2.16.840.1.851449.3.579.2. 1143 1996 Unknown [id number] 2.16.840.1.219814.3.579.2. 1143 1996 Unknown [id number] 2.16.840.1.088506.3.579.2. 1143 1996 Unknown [id number] 2.16.840.1.243828.3.579.2. 1143 1996 Unknown [id number] 2.16.840.1.629366.3.579.2. 1143 1996 Unknown [id number] 2.16.840.1.747810.3.579.2. 593 1996 Unknown [id number] 2.16.840.1.887435.3.579.2. 593 1996 Unknown [id number] 2.16.840.1.793214.3.579.2. 593 1996 Unknown [id number] 2.16.840.1.413006.3.579.2. 593 1996 Unknown [id number] 2.16.840.1.912752.3.579.2. 593 1996 Unknown [id number] 2.16.840.1.575810.3.579.2. 593 1996 Unknown [id number] 2.16.840.1.758177.3.579.2. 593 1996 Unknown [id number] 2.16.840.1.997123.3.579.2. 727 1996 Unknown [id number] 2.16.840.1.388998.3.579.2. 1286 1996 Unknown [id number] 2.16.840.1.722798.3.579.2. 1286 1996 Unknown [id number] 2.16.840.1.448616.3.579.2. 1259 1996 Unknown [id number] 2.16.840.1.578159.3.579.2. 9 1996 Unknown [id number] 2.16.840.1.681126.3.579.2. 1259 1996 Unknown [id number] 2.16.840.1.434642.3.579.2. 1258 1996 Unknown [id number] 2.16.840.1.051825.3.579.2. 1259 1996 Unknown [id number] 2.16.840.1.773914.3.579.2. 1259 1996 Unknown [id number] 2.16.840.1.436712.3.579.2. 9 1996 Unknown [id number] 2.16.840.1.145897.3.579.2. 1259 1960 Unknown [id number] 2.16.840.1.713065.3.579.2. 727 1959 Medicaid [id number] 1959 Self-pay 1959 Unknown [id number] 1959 Unknown [id number] 1959 Unknown [id number] Unknown [id number] 2.16.840.1.439703.3.579.2. 531 Social History Date Type Detail Facility Start: 12-05-2020 End: 02-27-2023 Tobacco smoking status GAIS Never smoker [facility] Start: 12-05-2020 End: 11-27-2021 Tobacco use and exposure Never used [facility] Start: 12-05-2020 Alcohol intake Current drinke r of alcohol (finding) [facility] Start: 12-05-2020 End: 11-27-2021 History SDOH Alcohol Frequency 1 [facility] Start: 12-05-2020 Alcohol Comment occ [facility] Start: 1996 Sex Assigned At Not on file [facility] Start: 11-17-2021 End: 08-10-2022 Exposure to SARS-CoV-2 (event) Not sure [facility] Tobacco smoking stat [facility] Tobacco smoking consumption unknown Start: 11-27-2021 End: 05-24-2024 Alcohol intake Lifetime non-drinker (finding) Start: 1995 Sex Assigned At Female T [facility] Start: 12-17-2023 Sex Assigned At F [facility] Tobacco smoking status Never [facility] Start: 03-28-2023 Tobacco smoking stat [facility] Ex-smoker [facility] History of tobacco use Current smoker [facility] History of tobacco use Cigarette Smoker [facility] Start: 12-17-2023 History of Social function [facility] Start: 11-17-2023 [facility] Start: 01-19-2023 Gender identity Identifies as female gender (finding) [facility] Healthcare Functional Status Date Assessment Result Facility 02-27-2023 Functional Status N/A [facility] Clinical Notes 12-05-2020 to 05-09-2024 Lucrecia Hein MA - 05/09/2024 11:30 AM ESSENCE Mahan - 04/11/2024 10:30 AM Chema Osorio DO - 02/12/2022 7:30 AM Cindy Rosario MA - 01/08/2022 8:00 AM EDT [...] nursing note reviewed. Exam conducted with a senior tableau developer present. Vitals: Estimated body mass index is [...] time. Order was given on 04/11/2024. Per [facility] recommendations patient is to start growth scans every 4 weeks, NST/BILL weekly until 32 weeks, then NST bi-weekly. Orders Placed This Encounter Procedures POCT urinalysis dipstick manually resulted Follow Up: Patient is to return to office in 2 week for routine OB appointment. Documented by Lucrecia Hein MA on behalf of: Katelyn Smith DO documented in this encounter [facility] 04-11-2024 History of Present illness Narrative Reason [...] of: ESSENCE Haley documented in this encounter [facility] 02-27-2023 Note Chief Complaint consultation for back [...] with excisional biopsy under local anesthesia at [facility]; call with problems/questions. Follow-up No qualifying [...] Recorded SARS-CoV-2 (COVID-19) mRNA-1273 vaccine 06/08/2021 Recorded [facility] Comment on above: Result Comment: Elec tronically Signed By: DOMINGO RANGEL, Gary Jackson\Date and Time Signed: 02/27/23 16:20 EDT 02-12-2022 History of Present illness Narrative Attempted to complete Mchart and patient was not online despite speaking to DC prior to appointment. Attempted to call on phone 3 separate times before noon with no answer. May reschedule at later date. documented in this encounter 01-08-2022 History of Present illness Narrative bp's [...] due to buspirone. documented in this encounter 12-10-2021 Evaluation note Encounter Date Diagnosis Assessment Notes Dec, Irritable bowel syndrome with diarrhea (ICD-10 - K58.0) Continue medications without change Dec, Epigastric pain (ICD-10 - R10.13) Dec, Chronic nausea (ICD-10 - R11.0) Dec, Family history of carcinoma in situ of anal canal (ICD-10 - Z84.89) Dec, Other Continue Zofran prn Pt to call if symptoms worsen [facility] Other 05-25-2022 History of Present illness Narrative* Queta Osorio DO - 11/27/2021 2:00 PM EDT Subjective Patient ID: Leslie Ford is a 26 y.o. female. Chief Complaint Patient presents with [facility] Care 26 y.o. female presents to [facility]. History of anxiety and depression. Has [...] it ( July 2017) documented in this [id number] History of Present illness Narrative* Dana Rosario MA - 11/25/2021 12:19 PM EDT Lvm for pt to come in and be seen 2 * Dana Rosario MA - 11/25/2021 10:02 [...] like me to do? documented in this [id number] History of Present illness Narrative* James Churchill PA-C - 12/05/2020 8:22 PM EDT Images from the original note were not included. Patient Name: [facility] Location: Leslie [place] [address] [place] [phone] Date Of : Date Of Visit: 1995 12/05/2020 MRN# Provider: [id number] James Churchill PA-C Chief Complaint Patient presents [...] urine from irritatingthe sores. ? Take an supd-xtg-iqipfgm pain medicine, such as acetaminophen (Tylenol), ibuprofen [...] Log into your personal health record on [email or web address] and enter E579 in the Education box to learn more about Genital Herpes: Care Instructions. Current as of: August 31, 2019 Content Version: 12.8 [employer]. Care instructions adapted under license by your healthcare professional. If you have questions about a medical condition or this instruction, always ask your healthcare professional. [employer] disclaims any warranty or liability for your use of this information. documented in this [id number] Instructions* Patient Instructions* James Churchill PA-C - [...] urine from irritatingthe sores. ? Take an gqxg-mey-zjazxek pain medicine, such as acetaminophen (Tylenol), ibuprofen [...] Log into your personal health record on [email or web address] and enter E579 in the Education box to learn more about Genital Herpes: Care Instructions. Current as of: August 31, 2019 Content Version: 12.8 [employer]. Care instructions adapted under license by your healthcare professional. If you have questions about a medical condition or this instruction, always ask your healthcare professional. [employer] disclaims any warranty or liability for your use of this information. [facility] note No data available for this section [facility] Evaluation note* Diagnosis Vaginal sore- Primary documented in this encounter [facility] note* Diagnosis Anxiety- Primary Anxiety state, unspecified documented in this encounter [facility] [facility] note* Diagnosis Anxiety- Primary Anxiety state, unspecified Hypotension, unspecified hypotension type documented in this encounter [facility] note* Diagnosis Anxiety- Primary Anxiety state, unspecified documented in this encounter [facility] note* Diagnosis Second trimester state, incidental 22 weeks gestation of Diabetes mellitus screening Screening for diabetes mellitus [facility] Diagnosis Second trimester state, incidental 26 weeks gestation of History of miscarriage Personal history of other genital system and obstetric disorders documented in this encounter [facility] N[facility] - Reported* Type Description Date Medical History [facility] Conjectur Other Hospital Discharge instructions No data available for this section General Surgery [place] [facility] note No data available for this section General Surgery [place] Summary Purpose Family History No Family History Records FoundNo Family History Records FoundNo Family History Records FoundNo Family History Records FoundNo Family History Records FoundNo Family History Records FoundNo Family History Records FoundNo Family History Records FoundNo Family History Records Found Advance Directives Documents on File Type Date Recorded 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 Advance Directives and Living Will Documents on File Type Date Recorded 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 Additional Source Comments INFORMATION SOURCE (unrecogn ized section and content) DATE CREATED AUTHOR 12/30/2017 [facility] DATE CREATED AUTHOR AUTHOR'S ORGANIZ ATION 12/06/2020 [facility] DATE CREATED AUTHOR AUTHOR'S ORGANIZ ATION 02/16/2022 [facility] [place] DATE CREATED AUTHOR AUTHOR'S ORGANIZ ATION [facility]20[facility] DATE CREATED AUTHOR AUTHOR'S ORGANIZ ATION 11/14/2022 [facility] DATE CREATED AUTHOR AUTHOR'S ORGANIZ ATION 03/02/2023 [facility] DATE CREATED AUTHOR AUTHOR'S ORGANIZ ATION 07/05/2023 [facility] DATE CREATED AUTHOR AUTHOR'S ORGANIZ ATION 03/25/2024 [facility] DATE CREATED AUTHOR AUTHOR'S ORGANIZ ATION 05/27/2024 [facility] Special[facility] EPIC Reason for Visit [...] Care Teams (unrecognized sec tion and content) Triage Nurse Relationship Specialty Start Date End Date Rice, Queta M, DO [address] [place] [address] PCP - General Family Medicine 11/27/21 Triage Nurse Relationship Specialty Start Date End Date Queta Osorio, DO [address] [place] [address], [place] [address] PCP - General Family Medicine 11/27/21 Triage Nurse Relationship Specialty Start Date End Date Queta Osorio, DO [address] [place] [address], [place] [address] PCP - General Family Medicine 11/27/21 Triage Nurse Relationship Specialty Start Date End Date Homar Beltran MD [address] [place] [address] PCP - General Family Medicine 01/20/23 Triage Nurse Relationship Specialty Start Date End Date Homar Beltran MD [address] [place] [address] PCP - General Family Medicine 01/20/23 Triage Nurse Relationship Specialty Start Date End Date Homar Beltran MD [address] [place] [address] PCP - General Family Medicine 01/20/23 Triage Nurse Relationship Specialty Start Date End Date Homar Beltran MD [address] [place] [address] PCP - General Family Medicine 01/20/23 Triage Nurse Relationship Specialty Start Date End Date Homar Beltran MD [address] [place] [address] PCP - General Family Medicine 01/20/23 Triage Nurse Relationship Specialty Start Date End Date Homar Beltrna MD [address] [place] [phone] PCP - General Family Medicine 01/20/23 FOR [...] BE BASED ON THE PRIMARY CLINICAL RECORDS. [facility]. provides no warranty or guarantee of the accuracy or completeness of information in this document.
[2024-06-08 09:20] VITALS: BP 107/71; PULSE 88
== END 2024-06-08 09:40 | disposition home or self-care (01) ==
LOC: US 06:24 → FBCO 06:35 → FBC 08:53
PROVIDERS: PCP Family Medicine; Visit Provider Obstetrics & Gynecology
DX: Z87.59 Personal history of other complications of pregnancy, childbirth and the puerperium (principal); Z3A.31 31 weeks gestation of pregnancy
CPT/HCPCS: 76818

== ENCOUNTER 2024-06-11 06:37 | Outpatient (OUT) | payer OTHER, SELFPAY ==
[2024-06-11 09:20] VITALS: BP 121/67; PULSE 81; TEMP 35.9
== END 2024-06-11 10:05 | disposition home or self-care (01) ==
LOC: FBCO 06:38 → FBC 09:13
PROVIDERS: PCP Family Medicine; Visit Provider Obstetrics & Gynecology
DX: O26.893 Other specified pregnancy related conditions, third trimester (principal); Z3A.31 31 weeks gestation of pregnancy
CPT/HCPCS: 59025

== ENCOUNTER 2024-06-13 06:05 | Outpatient (OUT) | payer OTHER, SELFPAY ==
[2024-06-13 08:55] VITALS: BP 120/76; PULSE 96
== END 2024-06-13 09:20 | disposition home or self-care (01) ==
LOC: FBCO 06:05 → FBC 08:47
PROVIDERS: PCP Family Medicine; Visit Provider Obstetrics & Gynecology
DX: O26.893 Other specified pregnancy related conditions, third trimester (principal); Z3A.31 31 weeks gestation of pregnancy
CPT/HCPCS: 59025

== ENCOUNTER 2024-06-16 06:22 | Outpatient (OUT) | payer OTHER, SELFPAY ==
--- OUTSIDE RECORDS SUMMARY | 2024-06-16 06:25 | XMS_ITS | CCD ---
Author Organization [facility] Care Team Providers Care Rehabilitation Worker Name Role Phone KIM SUTHERLAND Unavailable Unavailable WILLY CONKLIN Unavailable Unavailable HOMAR BELTRAN Unavailable Unavailable HOMAR BELTRAN Unavailable Unavailable No, Physician Primary Care Provider Unavailsuman e FINN, PHYSICIAN Primary Care Unavailable JAMES ALCAZAR Attending Unavailable Unavailable Primary Care Provider Unavailsuman e Queta Osorio DO Primary Care Provider Bret Long Unavailable RICE RICE, QUETA QUETA M~[phone] Attending Unavailable RICE RICE, QUETA QUETA M~[phone] Primary Ca re Unavailable RICE RICE, QUETA QUETA M~[phone] Attending Unavailable RICE RICE, QUETA QUETA M~[id number] Primary Ca re Unavailable RICE RICE, QUETA QUETA M~[id number] Attending Unavailable RICE RICE, QUETA QUETA M~[id number] Primary Ca re Unavailable RICE RICE, QUETA QUETA M~[phone] Attending Unavailable RICE RICE, QUETA QUETA M~[id number] Primary Ca re Unavailable RICE RICE, QUETA QUETA M~[phone] Referring Unavailable RICE RICE, QUETA QUETA M~[id number] Primary Ca re Unavailable ITA REYES Admitting [...] Care Unavailable CLAUDE KHAN Primary Care Physician [phone] Gary MORRIS Attending Unavailable Alexandr Bourgeois Attending Unavailab Alexandr Ventura Admitting Unavailab Homar Mcgowan Primary Care Unavailable KATELYN SMITH Referring Unavailable HOMAR BELTRAN Primary Care Unavailable SENAIT MARTIN Attending Unavailable LUIS, KATELYN Dante Referring Unavailable HOMAR BELTRAN Primary Care Unavailable Homar Beltran MD Primary Care Provider [phone] LITTLE CHRISTIE Attending Unavailable LUIS, KATELYN Attending Unavailable SHAHNAZ, LITTLE Attending Unavailable LUIS, KATELYN Attending Unavailable SHAHNAZ, LITTLE Attending Unavailable LUIS, KATELYN Attending Unavailable SHAHNAZ LITTLE Attending Unavailable KELIN SMITHY Attending Unavailable Allergies Allergy Classification Reported Allergen(s) Allergy Type Date of Onset Reaction(s) Facility (1 source) No Known Medication Allergies; Translations: [No Known Medication Allergies] Propensity to adverse reactions (disorder) [facility] Repository Medications Current Medications Medication Drug Class(es) Dates Sig (Normalized) Sig (Original) aspirin 81 mg delayed release oral tablet (9 sources) Platelet Aggregation Inhibitor, Nonsteroidal Anti-inflammatory Drug [...] omeprazole 20 mg delayed release oral capsule (12 sources) Proton Pump Inhibitor Start: 12-31-2023 End: 10-05-2024 take 1 capsule by mouth before mealtime omeprazole (PriLOSEC) [address] capsule Indications: Gastroesophageal Reflux Disease , Heartburn Take 1 capsule (20 mg) by mouth in the morning. Take before meals. Do not crush or chew.. 30 capsule 3 06/07/2024 10/05/2024 Active ondansetron 4 mg oral tablet (16 sources) Serotonin-3 Receptor Antagonist Start: 02-27-2023 Zofran [...] Vit-Fe Fumarate-FA ( Plus/Iron) 27-1 MG tablet (10 sources) Start: 12-17-2023 End: 12-16-2024 take 1 [...] Analog DNA Polymerase Inhibitor Start: 12-05-2020 End: 06-12-2021 take 1 tablet by mouth twice daily valACYclovir (Valtrex) 1000 MG tablet Take 1 (one) tablet (1,000 mg total) by mouth 2 (two) times a day for 10 days . 20 tablet 0 12/05/2020 12/15/2020 Active Completed/Discontinued Medications Medication Drug Class(es) Dates Sig (Normalized) Sig (Original) azithromycin 250 mg oral tablet (3 sources) Macrolide Antimicrobial Start: 05-24-2024 End: 06-07-2024 azithromycin (Zithromax Z-Milton) 250 MG tablet Indications: Upper respiratory tract infection, unspecified type As directed 6 tablet 05/24/2024 06/07/2024 Discontinued Problems Active Problems Problem Classification Problem Date Documented Da te Episodic/Chronic Anxiety disorders (5 sources) Anxiety; Translations: [Anxiety disorder, unspecified] Onset: 3 Chronic Deficiency and other anemia (1 source) Anemia, unspecified; Translations: [ANEMIA UNSPECIFIED] Onset: 3 Episodic Diabetes mellitus without complication (1 source) Other abnormal glucose; Translations: [OTHER ABNORMAL GLUCOSE] Onset: 3 Episodic Headache; including migraine (2 sources) Migraine, unspecified, not intractable, without status migrainosus; Translations: [Migraine] Onset: 3 02-23-2023 Chronic Malaise and fatigue (1 source) Other fatigue; Translations: [OTHER FATIGUE] Onset: 3 Episodic Other and unspecified benign neoplasm (1 source) Lipoma of skin and subcutaneous tissue of trunk; Translations: [Benign lipomatous neoplasm of skin and subcutaneous tissue of trunk] Onset: 3 Episodic Other and unspecified benign neoplasm (1 source) Lipoma of lower back 02-27-2023 Episodic Other circulatory disease (1 source) Low blood pressure; Translations: [Hypotension, unspecified] Episodic Other complications of (1 source) Supervision of with other poor reproductive or obstetric history, unspecified trimester; Translations: [Supervision of with other poor reproductive or obstetric history, unspecified trimester] Onset: 4 Episodic Other complications of (1 source) Supervision of other high risk pregnancies, unspecified trimester; Translations: [Supervision of other high risk pregnancies, unspecified trimester] Onset: 4 Episodic Other complications of (2 sources) Gastroesophageal reflux disease in ; Translations: [Diseases of the digestive system complicating , unspecified trimester] 06-07-2024 Episodic Other female genital disorders (1 source) Vaginal lesion; Translations: [Other specified noninflammatory disorders of vagina] Episodic Other gastrointestinal disorders (1 source) Irritable bowel syndrome with diarrhea; Translations: [Irritable bowel syndrome with diarrhea] Chronic Other gastrointestinal disorders (1 source) Irritable bowel syndrome with diarrhea Onset: 2 Resolved: 2 Chronic Other nutritional; endocrine; and metabolic disorders (1 source) Overweight 02-23-2023 Episodic Other nutritional; endocrine; and metabolic disorders (1 source) Overweight in adulthood with body mass index of 25 or more but less than 30 02-27-2023 Episodic Other and delivery including normal (6 sources) Second trimester ; Translations: [Encounter for supervision of normal , unspecified, second trimester] 04-11-2024 Episodic Other screening for suspected conditions (not mental disorders or infectious disease) (4 sources) Encounter for other specified screening; Translations: [Encounter for screening for cervical length] Onset: 4 04-11-2024 Episodic Other upper respiratory infections (5 sources) Acute recurrent frontal sinusitis; Translations: [ACUTE RECURRENT FRONTAL SINUSITIS] Onset: 2 Episodic Residual codes; unclassified (1 source) Chronic pain 02-23-2023 Episodic Residual codes; unclassified (1 source) Insomnia 02-23-2023 Episodic Residual codes; unclassified (1 source) 20 weeks gestation of ; Translations: [20 weeks gestation of ] Onset: 4 Episodic Residual codes; unclassified (2 sources) Gestation period, 22 weeks; Translations: [22 weeks gestation of ] 04-11-2024 Episodic Residual codes; unclassified (8 sources) Gestation period, 26 weeks; Translations: [26 weeks gestation of ] Onset: 4 05-09-2024 Episodic Residual codes; unclassified (8 sources) H/O: miscarriage; Translations: [Personal history of other complications of , childbirth and the puerperium] Onset: 4 05-09-2024 Episodic Residual codes; unclassified (2 sources) Gestation period, 31 weeks; Translations: [31 weeks gestation of ] 06-07-2024 Episodic Spondylosis; intervertebral disc disorders; other back problems (1 source) Neck pain 02-23-2023 Episodic Unclassified (4 sources) CONTACT W/AND (SUSP) EXPOS COVID-19; Translations: [CONTACT W/AND (SUSP) EXPOS COVID-19] Onset: 3 Unclassified (3 sources) LOW BACK PAIN, UNSPECIFIED; Translations: [LOW BACK PAIN, UNSPECIFIED] Onset: 2 Unclassified (1 source) history of stillbirth 27weeks Onset: 4 Past or Other Problems Problem Classification Problem [...] Range Facility Urinalysis macro (dipstick) panel (U)on 06-07-2024 Bilirubin, UA Negative Negative - 4(70) +++ mg/dL [facility] Blood, UA Negative Negative - 50 Angel Luis/mcL [facility] Clarity, UA Clear [facility] Color, UA Yellow [facility] Glucose, UA Negative Negative - 1999(110) ++++ mg/dL [facility] Interpretation and review of laboratory results Normal [facility] Ketones, UA Negative Negative - 160(16) ++++ mg/dL [facility] Leukocytes, UA Negative Negative - 500+++ Drew/mcL [facility] Nitrite, UA Negative Negative - Positive [facility] pH, UA 7 5 - 9 [facility] Protein, UA Negative Negative - 1999(20) ++++ mg/dL [facility] Spec Grav, UA 1.02 1 - 1.03 [facility] Urobilinogen, UA 0.2 0.2 - 12 mg/dL [facility] Urinalysis macro (dipstick) panel (U)on 05-09-2024 Bilirubin, UA Positive Negative - 4(70) +++ mg/dL [facility] Comment on above: small Blood, UA Negative Negative - 50 Angel Luis/mcL [facility] Clarity, UA Clear [facility] Color, UA Miryam [facility] Glucose, UA Negative Negative - 1999(110) ++++ mg/dL [facility] Interpretation and review of laboratory results Abnormal [facility] Ketones, UA Positive Negative - 160(16) ++++ mg/dL [facility] Comment on above: trace Leukocytes, UA Negative Negative - 500+++ Drew/mcL [facility] Nitrite, UA Negative Negative - Positive [facility] pH, UA 6 5 - 9 [facility] Protein, UA Positive Negative - 1999(20) ++++ mg/dL [facility] Comment on above: 30 mg Spec Grav, UA 1.03 1 - 1.03 [facility] Urobilinogen, UA 0.2 0.2 - 12 mg/dL [facility] Urinalysis macro (dipstick) panel (U)on 04-11-2024 Bilirubin, UA Negative Negative - 4(70) +++ mg/dL [facility] Blood, UA Negative Negative - 50 Angel Luis/mcL [facility] Clarity, UA Clear [facility] Color, UA Yellow [facility] Glucose, UA Negative Negative - 1999(110) ++++ mg/dL [facility] Interpretation and review of laboratory results Normal [facility] Ketones, UA Negative Negative - 160(16) ++++ mg/dL [facility] Leukocytes, UA Negative Negative - 500+++ Drew/mcL [facility] Nitrite, UA Negative Negative - Positive [facility] pH, UA 6.5 5 - 9 [facility] Protein, UA Negative Negative - 2000(20) ++++ mg/dL [facility] Spec Grav, UA 1.020 1 - 1.03 [facility] Urobilinogen, UA 0.2 0.2 - 12 mg/dL [facility] Facesheeton 03-02-2023 Facesheet [id number] CD:127 Normal [facility] Ambulatory Visit Summaryon 0 02-27-2023 Ambulatory Visit [...] History of pre-eclampsia Insomnia Migraines Overweight Normal [facility] RAD - Ultrasound Reporton RAD - Ultrasound Report [id number] D:127 Normal [facility] Physician Referralon 023 Physician Referral [id number] D:127 Normal [facility] INSULINon 11-08-2022 Insulin 7.7 uIU/mL Normal 2.6-24.9 [facility] Comment on above: Performed By: #### V ITAD, IRON #### [facility] [address] [place] [address] Dr. Chucho Jesus CBC AUTO DIFFon 11-07-2022 BASO # 0.0 103/ul Normal 0.0-0.1 [facility] Comment on above: Performed By: #### V ITAD, IRON #### [facility] [address] [place] [address] Dr. Chucho eJsus Basophils/100 WBC (Bld) 0.6 % Normal 0.2-2.0 [facility] Comment on above: Performed By: #### V ITAD, IRON #### [facility] [address] [place] [address] Dr. Chucho Jesus EO # 0.1 103/ul Normal 0.0-0.7 [facility] Comment on above: Performed By: #### V ITAD, IRON #### [facility] [address] [place] [address] Dr. Chucho Jesus Eosinophils/100 WBC (Bld) 1.4 % Normal 0.9-7.0 [facility] Comment on above: Performed By: #### V ITAD, IRON #### [facility] [address] [place] [address] Dr. Chucho Jesus Erythrocyte distribution width (RBC) [Ratio] 13.9 % Normal 11.0-15.0 [facility] Comment on above: Performed By: #### V ITAD, IRON #### [facility] [address] [place] [address] Dr. Chucho Jesus Hematocrit (Bld) [Volume fraction] 45.6 % Normal 36.0-48.0 [facility] Comment on above: Performed By: #### V ITAD, IRON #### [facility] [address] [place] [address] Dr. Chucho Jesus Hemoglobin (Bld) [Mass/Vol] 15.1 g/dL Normal 12.0-16.0 [facility] Comment on above: Performed By: #### V ITAD, IRON #### [facility] [address] [place] [address] Dr. Chucho Jesus IG # 0.01 10e3/ul Normal 0.00-0.03 [facility] Comment on above: Performed By: #### V ITAD, IRON #### [facility] [address] [place] [address] Dr. Chucho Jesus IG % 0.1 % Normal 0.0-0.5 [facility] Comment on above: Performed By: #### V ITAD, IRON #### [facility] [address] [place] [address] Dr. Chucho Jesus LYMPH # 1.9 103/ul Normal 1.2-3.8 [facility] Comment on above: Performed By: #### V ITAD, IRON #### [facility] [address] [place] [address] Dr. Chucho Jesus Lymphocytes/100 WBC (Bld) 26.3 % Normal 20.5-60.0 [facility] Comment on above: Performed By: #### V ITAD, IRON #### [facility] [address] [place] [address] Dr. Chucho Jesus MANUAL DIFF REQ NO Normal [facility] Comment on above: Performed By: #### V ITAD, IRON #### [facility] [address] [place] [address] Dr. Chucho Jesus MCH (RBC) [Entitic mass] 27.9 pg Normal 26.7-34.0 [facility] Comment on above: Performed By: #### V ITAD, IRON #### [facility] [address] [place] [address] Dr. Chucho Jesus MCHC (RBC) [Mass/Vol] 33.1 g/dL Normal 29.9-35.2 [facility] Comment on above: Performed By: #### V ITAD, IRON #### [facility] [address] [place] [address] Dr. Chucho Jesus MCV (RBC) [Entitic vol] 84.1 fL Normal 81.0-99.0 [facility] Comment on above: Performed By: #### V ITAD, IRON #### [facility] [address] [place] [address] Dr. Chucho Jesus MONO # 0.5 103/ul Normal 0.3-0.8 [facility] Comment on above: Performed By: #### V ITAD, IRON #### [facility] [address] [place] [address] Dr. Chucho Jesus Monocytes/100 WBC (Bld) 7.3 % Normal 1.7-12.0 [facility] Comment on above: Performed By: #### V ITAD, IRON #### [facility] [address] [place] [address] Dr. Chucho Jesus NEUT # 4.6 103/ul Normal 1.4-6.5 [facility] Comment on above: Performed By: #### V ITAD, IRON #### [facility] [address] [place] [address] Dr. Chucho Jesus Neutrophils/100 WBC (Bld) 64.3 % Normal 43.0-75.0 [facility] Comment on above: Performed By: #### V ITAD, IRON #### [facility] [address] [place] [address] Dr. Chucho Jesus Platelet mean volume (Bld) [Entitic vol] 10.9 fL Normal 9.5-13.5 [facility] Comment on above: Performed By: #### V ITAD, IRON #### [facility] [address] [place] [address] Dr. Chucho Jesus PLT 226 103/ul Normal 150-450 [facility] Comment on above: Performed By: #### V ITAD, IRON #### [facility] [address] [place] [address] Dr. Chucho Jesus RBC 5.42 106/ul Critically high 4.20-5.40 [facility] Comment on above: Performed By: #### V ITAD, IRON #### [facility] [address] [address] [address] Chucho Jesus WBC 7.2 103/ul Normal 4.0-11.0 [facility] Comment on above: Performed By: #### V ITAD, IRON #### [facility] [address] [place] [address] Dr. Chucho Jesus FREE THYROXINE INDEX T7on FTI 3.29 Normal 1.30-4.50 [facility] Comment on above: Performed By: #### V ITAD, IRON #### [facility] [address] [place] [address] Dr. Chucho Jesus T3U 35.0 % Normal 30.0-39.0 [facility] Comment on above: Performed By: #### V ITAD, IRON #### [facility] [address] [place] [address] Dr. Chucho Jesus T4 [Mass/Vol] 9.40 ug/dL Normal 4.80-13.90 [facility] Comment on above: Performed By: #### V ITAD, IRON #### [facility] [address] [place] [address] Dr. Cuhcho Jesus GLYCOHEMOGLOBIN A1Con 2022 ADA RECOMMENDATION SEE BELOW Normal [facility] Comment on above: Result Comment: ADA RECOMMENDED LIMIT 4.0 - 6.0 ADA THERAPEUTIC TARGET < 7.0 ACTION SUGGESTED > 7.0 Performed By: #### A 1C #### [facility] [address] [place] [address] Dr. Chucho Jesus Glucose [Mass/Vol] 94 mg/dL Normal [facility] Comment on above: Performed By: #### A 1C #### [facility] [address] [place] [address] Dr. Chucho Jesus HbA1c (Bld) [Mass fraction] 4.9 % Normal 4.5-6.2 [facility] Comment on above: Performed By: #### A 1C #### [facility] [address] [place] [address] Dr. Chucho Jesus IRONon 11-07-2022 Iron [Mass/Vol] 81.0 ug/dL Normal 50.0-170.0 [facility] Comment on above: Performed By: #### V ITAD, IRON #### [facility] [address] [address] [address] Chucho Jesus LIPID PROFILEon 11-07-2022 CHOL-HDL RATIO NORM SEE BELOW Normal [facility] Comment on above: Result Comment: 3.3 - 4.4 LOW RISK 4.4 - 7.1 AVERAGE RISK 7.1 - 11.0 MODERATE RISK >11.0 HIGH RISK Performed By: #### V ITAD, IRON #### [facility] [address] [address] [address] Chucho Jesus Cholesterol [Mass/Vol] 126 mg/dL Normal <=200 [facility] Comment on above: Performed By: #### V ITAD, IRON #### [facility] [address] [address] [address] Chucho Jesus Cholesterol in HDL [Mass/Vol] 38 mg/dL Critically low 40-60 [facility] Comment on above: Performed By: #### V ITAD, IRON #### [facility] [address] [address] [address] Chucho Jesus Cholesterol in LDL [Mass/Vol] 79.4 mg/dL Normal [facility] Comment on above: Performed By: #### V ITAD, IRON #### [facility] [address] [address] [address] Chucho Jesus Cholesterol.total/C holesterol in HDL [Mass ratio] 3.3 {ratio} Normal [facility] Comment on above: Performed By: #### V ITAD, IRON #### [facility] [address] [address] [address] Chucho Jesus HDL NORMAL > or = 60 mg/dl - LO W CARDIOVASCULAR RISK <40 mg/dl - HIGH CARDIOVASCULAR RISK Normal [facility] Comment on above: Performed By: #### V ITAD, IRON #### [facility] [address] [address] [address] Chucho Jesus LDL CALC NORMAL SEE BELOW Normal [facility] Comment on above: Result Comment: <100 mg/dl OPTIMAL 100 - 129 mg/dl NEAR OR ABOVE OPTIMAL 130 - 159 mg/dl BORDERLINE HIGH 160 - 189 mg/dl HIGH >190 mg/dl VERY HIGH Performed By: #### V ITAD, IRON #### [facility] [address] [address] [address] Chucho Jesus Triglyceride [Mass/Vol] 43 mg/dL Normal <=150 [facility] Comment on above: Performed By: #### V ITAD, IRON #### [facility] [address] [address] [address] Chucho Jesus VLDL CALC 8.6 mg/dL Normal [facility] Comment on above: Performed By: #### V ITAD, IRON #### [facility] [address] [place] [address] Dr. Chucho Jesus PROF 14(COMP METB)on 023 Albumin [Mass/Vol] 4.2 g/dL Normal 3.4-5.0 [facility] Comment on above: Performed By: #### V ITAD, IRON #### [facility] [address] [place] [address] Dr. Chucho Jesus Albumin/Globulin [Mass ratio] 1.1 {ratio} Normal [facility] Comment on above: Performed By: #### V ITAD, IRON #### [facility] [address] [place] [address] Dr. Chucho Jesus ALP [Catalytic activity/Vol] 93 U/L Normal 46-116 [facility] Comment on above: Performed By: #### V ITAD, IRON #### [facility] [address] [address] [address] Chucho Jesus ALT [Catalytic activity/Vol] 16 U/L Normal 14-59 [facility] Comment on above: Performed By: #### V ITAD, IRON #### [facility] [address] [address] [address] Chucho Jesus Anion gap [Moles/Vol] 14.3 mmol/L Normal [facility] Comment on above: Performed By: #### V ITAD, IRON #### [facility] [address] [address] [address] Chucho Jesus AST [Catalytic activity/Vol] 16 U/L Normal 15-37 [facility] Comment on above: Performed By: #### V ITAD, IRON #### [facility] [address] [address] [address] Chucho Jesus Bilirubin [Mass/Vol] 1.0 mg/dL Normal 0.2-1.0 [facility] Comment on above: Performed By: #### V ITAD, IRON #### [facility] [address] [address] [address] Chucho Jesus Calcium [Mass/Vol] 9.4 mg/dL Normal 8.5-10.1 [facility] Comment on above: Performed By: #### V ITAD, IRON #### [facility] [address] [place] [address] Dr. Chucho Jesus Chloride [Moles/Vol] 103 mmol/L Normal 98-107 [facility] Comment on above: Performed By: #### V ITAD, IRON #### [facility] [address] [address] [address] Chucho Jesus CO2 [Moles/Vol] 24.9 mmol/L Normal 21.0-32.0 [facility] Comment on above: Performed By: #### V ITAD, IRON #### [facility] [address] [place] [address] Dr. Chucho Jesus Creatinine [Mass/Vol] 0.68 mg/dL Normal 0.55-1.02 [facility] Comment on above: Performed By: #### V ITAD, IRON #### [facility] [address] [address] [address] Chucho Jesus EGFR-AF SYRIAN >60 Normal >=60 [facility] Comment on above: Performed By: #### V ITAD, IRON #### [facility] [address] [address] [address] Chucho Jesus EGFR-NON AF SYRIAN >60 Normal >=60 [facility] Comment on above: Performed By: #### V ITAD, IRON #### [facility] [address] [address] [address] Chucho Jesus Globulin (S) [Mass/Vol] 3.9 g/dL Normal [facility] Comment on above: Performed By: #### V ITAD, IRON #### [facility] [address] [address] [address] Chucho Jesus Glucose [Mass/Vol] 89 mg/dL Normal 74-[address] [facility] Comment on above: Performed By: #### V ITAD, IRON #### [facility] [address] [address] [address] Chucho Jesus Potassium [Moles/Vol] 4.2 mmol/L Normal 3.5-5.1 [facility] Comment on above: Performed By: #### V ITAD, IRON #### [facility] [address] [place] [address] Dr. Chucho Jesus Protein [Mass/Vol] 8.1 g/dL Normal 6.4-8.[address] [facility] Comment on above: Performed By: #### V ITAD, IRON #### [facility] [address] [place] [address] Dr. Chucho Jesus Sodium [Moles/Vol] 138 mmol/L Normal 136-145 [facility] Comment on above: Performed By: #### V ITAD, IRON #### [facility] [address] [place] [address] Dr. Chucho Jesus Urea nitrogen [Mass/Vol] 9.0 mg/dL Normal 7.0-18.0 [facility] Comment on above: Performed By: #### V ITAD, IRON #### [facility] [address] [place] [address] Dr. Chucho Jesus Urea nitrogen/Creatinine [Mass ratio] 13.2 mg/mg Normal [facility] Comment on above: Performed By: #### V ITAD, IRON #### [facility] [address] [place] [address] Dr. Chucho Jesus TSHon 11-07-2022 TSH 1.668 uIU/mL Normal 0.358-3.740 [facility] Comment on above: Performed By: #### V AMAURY, IVELISSE #### [facility] [address], [place] [address] Dr. Chucho Jesus Covid-19 PCR (CVDTB)on SARS-CoV-2 (COVID-19) RNA DMITRY+probe Ql (Unsp spec) Not detected Normal NOT DETECTED [facility] Comment on above: Result Comment: [...] for this test is supported by the [place] of Health and Human Service's declaration that [...] longer be used). Performed By: #### V AMAURY, IVELISSE #### [facility] [address] [place], [place] [address] Dr. Chucho Jesus Covid-19 PCR (CVDTB)on SARS-CoV-2 (COVID-19) RNA DMITRY+probe Ql (Unsp spec) Not detected Normal NOT DETECTED [facility] Comment on above: Result Comment: [...] for this test is supported by the [place] of Health and Human Service's declaration that [...] #### C VDTB #### [facility] [address] [place] [address] Dr. Chucho Jesus INFLUENZA A AND B AGon 08-11 [facility] SEE BELOW Normal [facility] Comment on above: Result Comment: Nega tive for Flu A protein angiten. Infection due to Flu A cannot be ruled out. Flu A angiten in the sample may be below the detection limit of the test. Performed By: #### I NFLUAB #### [facility] [address] [place] [address] Dr. Chucho [facility] Normal [facility] Comment on above: Result Comment: Nega tive for Flu B protein antigen. Infection due to Flu B cannot be ruled out. Flu B antigen in the sample may be below the detection limit of the test. Performed By: #### I NFLUAB #### [facility] [address] [place] [address] Dr. Chucho Jesus INFLUENZA A AG Negative Normal NEGATIVE SEE COMMENT [facility] Comment on above: Performed By: #### I NFLUAB #### [facility] [address] [place] [address] Dr. Chucho Jesus INFLUENZA B AG Negative Normal NEGATIVE SEE COMMENT [facility] Comment on above: Performed By: #### I NFLUAB #### [facility] [address] [place] [address] Dr. Chucho Jesus Covid-19 PCR ([facility])on 05-07 SARS-CoV-2 (COVID-19) RNA DMITRY+probe Ql (Unsp spec) Not detected Normal NOT DETECTED [facility] Comment on above: Result Comment: [...] for this test is supported by the [place] of [employer] and Human Service's declaration that [...] V ITAD, IRON #### [facility] [address] [place] [address] Dr. Chucho Jesus INFLUENZA A AND B [facility] [place] 05-26 [facility] SEE BELOW Normal [facility] Comment on above: Result Comment: Nega tive for Flu A protein angiten. Infection due to Flu A cannot be ruled out. Flu A angiten in the sample may be below the detection limit of the test. Performed By: #### V ITAD, IRON #### [facility] [address] [place] [address] Dr. Chucho Jesus [facility] SEE BELOW Normal [facility] Comment on above: Result Comment: Nega tive for Flu B protein antigen. Infection due to Flu B cannot be ruled out. Flu B antigen in the sample may be below the detection limit of the test. Performed By: #### V ITAD, IRON #### [facility] [address] [place] [address] Dr. Chucho Jesus INFLUENZA A AG Negative Normal NEGATIVE SEE COMMENT [facility] Comment on above: Performed By: #### V ITAD, IRON #### [facility] [address] [place] [address] Dr. Chucho Jesus INFLUENZA B AG Negative Normal NEGATIVE SEE COMMENT [facility] Comment on above: Performed By: #### V ITAD, IRON #### [facility] [address] [place] [address] Dr. Chucho Jesus INTERNAL CONTROLS Within Normal Limits Normal Wi thin Normal Limits The [facility] Comment on above: Performed By: #### V ITAD, IRON #### [facility] [address] [address] [address] Chucho CARMEN URINE PROFILEon 2 Bilirubin Ql (U) Negative Normal NEGATIVE [facility] Comment on above: Performed By: #### V ITAD, IRON #### [facility] [address] [address] [address] Chucho Jesus Clarity (U) CLEAR Normal CLEAR [facility] Comment on above: Performed By: #### V ITAD, IRON #### [facility] [address] [address] [address] Chucho Jesus Color (U) YELLOW Normal YELLOW [facility] Comment on above: Performed By: #### V ITAD, IRON #### [facility] [address] [place] [address] Dr. Chucho BAHENA A micrscopic examination will be performed if indicated. Normal [facility] Comment on above: Performed By: #### V ITAD, IRON #### [facility] [address] [place] [address] Dr. Chucho Jesus Glucose Ql (U) Negative Normal NEGATIVE [facility] Comment on above: Performed By: #### V ITAD, IRON #### [facility] [address] [place] [address] Dr. Chucho Jesus Hemoglobin Ql (U) Negative Normal NEGATIVE [facility] Comment on above: Performed By: #### V ITAD, IRON #### [facility] [address] [place] [address] Dr. Chucho Jesus Ketones Ql (U) >=80 Abnormal NEGATIVE [facility] Comment on above: Performed By: #### V ITAD, IRON #### [facility] [address] [place] [address] Dr. Chucho Jesus LEUKOCYTES Negative Normal NEGATIVE [facility] Comment on above: Performed By: #### V ITAD, IRON #### [facility] [address] [place] [address] Dr. Chucho Jesus Nitrite Ql (U) Negative Normal NEGATIVE [facility] Comment on above: Performed By: #### V ITAD, IRON #### [facility] [address] [place] [address] Dr. Chucho Jesus pH (U) 6.0 [pH] Normal 5-9 [facility] Comment on above: Performed By: #### V ITAD, IRON #### [facility] [address] [place] [address] Dr. Chucho Jesus Protein (U) [Mass/Vol] 100 mg/dL Abnormal NEGATIVE/ TRACE [facility] Comment on above: Performed By: #### V ITAD, IRON #### [facility] [address] [place] [address] Dr. Chucho Jesus SPEC GRAVITY >=1.030 Abnormal 1.005-<=1.025 [facility] Comment on above: Performed By: #### V ITAD, IRON #### [facility] [address] [place] [address] Dr. Chucho Jesus UR MICRO IND INDICATED Normal [facility] Comment on above: Performed By: #### V ITAD, IRON #### [facility] [address] [place] [address] Dr. Chucho Jesus Urobilinogen Qn (U) 0.2 {Chelsea'U}/dL Normal 0.2 - 1. 0 [facility] Comment on above: Performed By: #### V ITAD, IRON #### [facility] [address] [place] [address] Dr. Chucho Jesus URon 05-22-2022 , QUAL Negative Normal NEGATIVE [facility] Comment on above: Performed By: #### V ITAD, IRON #### [facility] [address] [place] [address] Dr. Chucho Jesus URINE MICROSCOPIC ONLYon BACTERIA NONE SEEN Normal NONE SEEN [facility] Comment on above: Performed By: #### V ITAD, IRON #### [facility] [address] [place] [address] Dr. Chucho Jesus Bacteria identified Cx Nom (U) NOT INDICATED Normal [facility] Comment on above: Performed By: #### V ITAD, IRON #### [facility] [address] [place] [address] Dr. Chucho Jesus CAST NONE SEEN Normal NONE SEEN [facility] Comment on above: Performed By: #### V ITAD, IRON #### [facility] [address] [place] [address] Dr. Chucho Jesus Crystals LM Nom (Urine sed) NONE SEEN Normal NONE SEEN [facility] Comment on above: Performed By: #### V ITAD, IRON #### [facility] [address] [place] [address] Dr. Chucho Jesus Epithelial cells LM Ql (Urine sed) FEW Abnormal NONE SEEN /RARE [facility] Comment on above: Performed By: #### V ITAD, IRON #### [facility] [address] [place] [address] Dr. Chucho Jesus MUCOUS MODERATE Abnormal NONE SEEN The [facility] Comment on above: Performed By: #### V ITAD, IRON #### [facility] [address] [place] [address] Dr. Chucho Jesus RBC NONE SEEN Abnormal 0-2 [facility] Comment on above: Performed By: #### V ITAD, IRON #### [facility] [address] [place] [address] Dr. Chucho Jesus WBC NONE SEEN Normal NONE SEEN The [facility] Comment on above: Performed By: #### V ITAD, IRON #### [facility] [address] [place] [address] Dr. Chucho Jesus XR LSPINE 2_3 VIEWSon [...] 2022-05-22 12:28 Normal [facility] INSULINon 04-25-2022 Insulin 10.4 uIU/mL Normal 2.6-24.9 [facility] Comment on above: Performed By: #### V ITAD, IRON #### [facility] [address] [place] [address] Dr. Chucho Jesus CBC AUTO DIFFon 04-24-2022 BASO # 0.0 103/ul Normal 0.0-0.1 [facility] Comment on above: Performed By: #### C BC #### [facility] [address] [place] [address] Dr. Chucho Jesus Basophils/100 WBC (Bld) 0.6 % Normal 0.2-2.0 [facility] Comment on above: Performed By: #### C BC #### [facility] [address] [place] [address] Dr. Chucho Jesus EO # 0.1 103/ul Normal 0.0-0.7 [facility] Comment on above: Performed By: #### C BC #### [facility] [address] [place] [address] Dr. Chucho Jesus Eosinophils/100 WBC (Bld) 1.8 % Normal 0.9-7.0 [facility] Comment on above: Performed By: #### C BC #### [facility] [address] [place] [address] Dr. Chucho Jesus Erythrocyte distribution width (RBC) [Ratio] 12.9 % Normal 11.0-15.0 [facility] Comment on above: Performed By: #### C BC #### [facility] [address] [place] [address] Dr. Chucho Jesus Hematocrit (Bld) [Volume fraction] 45.6 % Normal 36.0-48.0 [facility] Comment on above: Performed By: #### C BC #### [facility] [address] [place] [address] Dr. Chucho Jesus Hemoglobin (Bld) [Mass/Vol] 14.7 g/dL Normal 12.0-16.0 [facility] Comment on above: Performed By: #### C BC #### [facility] [address] [place] [address] Dr. Chucho Jesus IG # 0.02 10e3/ul Normal 0.00-0.03 [facility] Comment on above: Performed By: #### C BC #### [facility] [address] [place] [address] Dr. Chucho Jesus IG % 0.3 % Normal 0.0-0.5 [facility] Comment on above: Performed By: #### C BC #### [facility] [address] [place] [address] Dr. Chucho Jesus LYMPH # 1.6 103/ul Normal 1.2-3.8 [facility] Comment on above: Performed By: #### C BC #### [facility] [address] [place] [address] Dr. Chucho Jesus Lymphocytes/100 WBC (Bld) 24.5 % Normal 20.5-60.0 [facility] Comment on above: Performed By: #### C BC #### [facility] [address] [place] [address] Dr. Chucho Jesus MANUAL DIFF REQ NO Normal [facility] Comment on above: Performed By: #### C BC #### [facility] [address] [place] [address] Dr. Chucho Jesus MCH (RBC) [Entitic mass] 28.4 pg Normal 26.7-34.0 [facility] Comment on above: Performed By: #### C BC #### [facility] [address] [place] [address] Dr. Chucho Jesus MCHC (RBC) [Mass/Vol] 32.2 g/dL Normal 29.9-35.2 [facility] Comment on above: Performed By: #### C BC #### [facility] [address] [place] [address] Dr. Chucho Jesus MCV (RBC) [Entitic vol] 88.2 fL Normal 81.0-99.0 [facility] Comment on above: Performed By: #### C BC #### [facility] [address] [place] [address] Dr. Chucho Jesus MONO # 0.5 103/ul Normal 0.3-0.8 [facility] Comment on above: Performed By: #### C BC #### [facility] [address] [place] [address] Dr. Chucho Jesus Monocytes/100 WBC (Bld) 7.4 % Normal 1.7-12.0 [facility] Comment on above: Performed By: #### C BC #### [facility] [address] [place] [address] Dr. Chucho Jesus NEUT # 4.4 103/ul Normal 1.4-6.5 [facility] Comment on above: Performed By: #### C BC #### [facility] [address] [place] [address] Dr. Chucho Jesus Neutrophils/100 WBC (Bld) 65.4 % Normal 43.0-75.0 [facility] Comment on above: Performed By: #### C BC #### [facility] [address] [place] [address] Dr. Chucho Jesus Platelet mean volume (Bld) [Entitic vol] 9.9 fL Normal 9.5-13.5 [facility] Comment on above: Performed By: #### C BC #### [facility] [address] [place] [address] Dr. Chucho Jesus PLT 225 103/ul Normal 150-450 [facility] Comment on above: Performed By: #### C BC #### [facility] [address] [place] [address] Dr. Chucho Jesus RBC 5.17 106/ul Normal 4.20-5.40 [facility] Comment on above: Performed By: #### C BC #### [facility] [address] [place] [address] Dr. Chucho Jesus WBC 6.7 103/ul Normal 4.0-11.0 [facility] Comment on above: Performed By: #### C BC #### [facility] [address] [place] [address] Dr. Chucho Jesus FREE THYROXINE INDEX T7on FTI 3.29 Normal 1.30-4.50 [facility] Comment on above: Performed By: #### T 7, TSH, LIPID, CMP #### [facility] [address] [place] [address] Dr. Chucho Jesus T3U 27.0 % Critically low 30.0-39.0 [facility] Comment on above: Performed By: #### T 7, TSH, LIPID, CMP #### [facility] [address] [place] [address] Dr. Chucho Jesus T4 [Mass/Vol] 12.20 ug/dL Normal 4.80-13.90 [facility] Comment on above: Performed By: #### T 7, TSH, LIPID, CMP #### [facility] [address] [place] [address] Dr. Chucho Jesus GLYCOHEMOGLOBIN A1Con 2021 ADA RECOMMENDATION SEE BELOW Normal [facility] Comment on above: Result Comment: ADA RECOMMENDED LIMIT 4.0 - 6.0 ADA THERAPEUTIC TARGET < 7.0 ACTION SUGGESTED > 7.0 Performed By: #### A 1C #### [facility] [address] [place] [address] Dr. Chucho Jesus Glucose [Mass/Vol] 105 mg/dL Normal [facility] Comment on above: Performed By: #### A 1C #### [facility] [address] [place] [address] Dr. Chucho Jesus HbA1c (Bld) [Mass fraction] 5.3 % Normal 4.5-6.2 [facility] Comment on above: Performed By: #### A 1C #### [facility] [address] [place] [address] Dr. Chucho Jesus IRONon 04-24-2022 Iron [Mass/Vol] 48.0 ug/dL Critically low 50.0-170.0 [facility] Comment on above: Performed By: #### V ITAD, IRON #### [facility] [address] [address] [address] Chucho Jesus LIPID PROFILEon 04-24-2022 CHOL-HDL RATIO NORM SEE BELOW Normal [facility] Comment on above: Result Comment: 3.3 - 4.4 LOW RISK 4.4 - 7.1 AVERAGE RISK 7.1 - 11.0 MODERATE RISK >11.0 HIGH RISK Performed By: #### V ITAD, IRON #### [facility] [address] [address] [address] Chucho Jesus Cholesterol [Mass/Vol] 184 mg/dL Normal <=200 [facility] Comment on above: Performed By: #### V ITAD, IRON #### [facility] [address] [address] [address] Chucho Jesus Cholesterol in HDL [Mass/Vol] 55 mg/dL Normal 40-60 [facility] Comment on above: Performed By: #### V ITAD, IRON #### [facility] [address] [address] [address] Chucho Jesus Cholesterol in LDL [Mass/Vol] 116.6 mg/dL Normal [facility] Comment on above: Performed By: #### V ITAD, IRON #### [facility] [address] [address] [address] Chucho Jesus Cholesterol.total/C holesterol in HDL [Mass ratio] 3.3 {ratio} Normal [facility] Comment on above: Performed By: #### V ITAD, IRON #### [facility] [address] [address] [address] Chucho Jesus HDL NORMAL > or = 60 mg/dl - LO W CARDIOVASCULAR RISK <40 mg/dl - HIGH CARDIOVASCULAR RISK Normal [facility] Comment on above: Performed By: #### V ITAD, IRON #### [facility] [address] [id number] Chucho Jesus LDL CALC NORMAL SEE BELOW Normal [facility] Comment on above: Result Comment: <100 mg/dl OPTIMAL 100 - 129 mg/dl NEAR OR ABOVE OPTIMAL 130 - 159 mg/dl BORDERLINE HIGH 160 - 189 mg/dl HIGH >190 mg/dl VERY HIGH Performed By: #### V ITAD, IRON #### [facility] [address] [address] [address] Chucho Jesus Triglyceride [Mass/Vol] 62 mg/dL Normal <=150 [facility] Comment on above: Performed By: #### V ITAD, IRON #### [facility] [address] [address] [address] Chucho Jesus VLDL CALC 12.4 mg/dL Normal [facility] Comment on above: Performed By: #### V ITAD, IRON #### [facility] [address] [address] [address] Chucho Jesus PROF 14(COMP METB)on 022 Albumin [Mass/Vol] 3.7 g/dL Normal 3.4-5.[address] [facility] Comment on above: Performed By: #### T 7, TSH, LIPID, CMP #### [facility] [address] [address] [address] Chucho Jesus Albumin/Globulin [Mass ratio] 0.9 {ratio} Normal [facility] Comment on above: Performed By: #### T 7, TSH, LIPID, CMP #### [facility] [address] [address] [address] Chucho Jesus ALP [Catalytic activity/Vol] 74 U/L Normal 46-116 [facility] Comment on above: Performed By: #### T 7, TSH, LIPID, CMP #### [facility] [address] [address] [address] Chucho Jesus ALT [Catalytic activity/Vol] 16 U/L Normal 14-59 [facility] Comment on above: Performed By: #### T 7, TSH, LIPID, CMP #### [facility] [address] [address] [address] Chucho Jesus Anion gap [Moles/Vol] 12.3 mmol/L Normal [facility] Comment on above: Performed By: #### T 7, TSH, LIPID, CMP #### [facility] [facility] [address] [address] [address] Chucho Jesus AST [Catalytic activity/Vol] 13 U/L Critically low 15-37 [facility] Comment on above: Performed By: #### T 7, TSH, LIPID, CMP #### [facility] [address] [address] [address] Chucho Jesus Bilirubin [Mass/Vol] 0.4 mg/dL Normal 0.2-1.0 [facility] Comment on above: Performed By: #### T 7, TSH, LIPID, CMP #### [facility] [address] [place] [address] Dr. Chucho Jesus Calcium [Mass/Vol] 8.9 mg/dL Normal 8.5-10.1 [facility] Comment on above: Performed By: #### T 7, TSH, LIPID, CMP #### [facility] [address] [place] [address] Dr. Chucho Jesus Chloride [Moles/Vol] 105 mmol/L Normal 98-107 [facility] Comment on above: Performed By: #### T 7, TSH, LIPID, CMP #### [facility] [address] [place] [address] Dr. Chucho Jesus CO2 [Moles/Vol] 26.6 mmol/L Normal 21.0-32.0 [facility] Comment on above: Performed By: #### T 7, TSH, LIPID, CMP #### [facility] [address] [place] [address] Dr. Chucho Jesus Creatinine [Mass/Vol] 0.68 mg/dL Normal 0.55-1.02 [facility] Comment on above: Performed By: #### T 7, TSH, LIPID, CMP #### [facility] [address] [place] [address] Dr. Chucho Jesus EGFR-AF SYRIAN >60 Normal >=60 [facility] Comment on above: Performed By: #### T 7, TSH, LIPID, CMP #### [facility] [address] [place] [address] Dr. Chucho Jesus EGFR-NON AF SYRIAN >60 Normal >=60 [facility] Comment on above: Performed By: #### T 7, TSH, LIPID, CMP #### [facility] [address] [place] [address] Dr. Chucho Jesus Globulin (S) [Mass/Vol] 4.3 g/dL Normal [facility] Comment on above: Performed By: #### T 7, TSH, LIPID, CMP #### [facility] [address] [address] [address] Chucho Jesus Glucose [Mass/Vol] 87 mg/dL Normal 74-[address] [facility] Comment on above: Performed By: #### T 7, TSH, LIPID, CMP #### [facility] [address] [address] [address] Chucho Jesus Potassium [Moles/Vol] 3.9 mmol/L Normal 3.5-5.1 [facility] Comment on above: Performed By: #### T 7, TSH, LIPID, CMP #### [facility] [address] [address] [address] Chucho Jesus Protein [Mass/Vol] 8.0 g/dL Normal 6.4-8.[address] [facility] Comment on above: Performed By: #### T 7, TSH, LIPID, CMP #### [facility] [address] [address] [address] Chucho Jesus Sodium [Moles/Vol] 140 mmol/L Normal 136-[address] [facility] Comment on above: Performed By: #### T 7, TSH, LIPID, CMP #### [facility] [address] [address] [address] Chucho Jesus Urea nitrogen [Mass/Vol] 9.0 mg/dL Normal 7.0-18.0 [facility] Comment on above: Performed By: #### T 7, TSH, LIPID, CMP #### [facility] [address] [address] [address] Chucho Jesus Urea nitrogen/Creatinine [Mass ratio] 13.2 mg/mg Normal [facility] Comment on above: Performed By: #### T 7, TSH, LIPID, CMP #### [facility] [address] [address] [address] Chucho Jesus TSHon 04-24-2022 TSH 1.127 uIU/mL Normal 0.358-3.740 [facility] Comment on above: Performed By: #### T 7, TSH, LIPID, CMP #### [facility] [address] [address] [address] Chucho Jesus VITAMIN D 25 OHon 04-24-2022 VIT D 25-OH 35.2 ng/mL Normal [facility] Comment on above: Performed By: #### V ITAD, IRON #### [facility] [address] [address] [address] Chucho Jesus VIT D RANGES SEE BELOW Normal [facility] Comment on above: Result Comment: <20 ng/mL Vit D deficient 20 - <30 ng/mL Vit D insufficient 30 - 100 ng/mL Vit D sufficient >100 ng/mL Potential Toxicity Performed By: #### V ITAD, IRON #### [facility] [address] [address] [address] Chucho Jesus HCG ( test) Ql (U)O rdered By: James Churchill on 12-05-2020 Internal Control Pass [facility] Interpretation and review of laboratory results Normal [facility] POC , UrineOrdered By: James Churchill on 12-05-2020 HCG ( test) Ql (U) Negative Negative [facility] CTA CHEST WITH CONTRASTon CTA CHEST [...] by:Ady Tran MD/Edited Result - FINAL [facility] Basic Metabolic Profon 02-19 (cont.) [facility] Comment on above: Result Comment: Aver age GFR for 20-29 years old: 116 mL/min/1.73sq mChronic Kidney Disease: <60 mL/min/1.73sq mKidney failure: <15 mL/min/1.73sq meGFR calculated using average adult body mass. Additional eGFR calculator available at:http://www.Ruxter/multiple_crcl_2012.htm Performed By: #### C DP, BMP, TROPI ####[address] [place] [address] Anion gap 14 mmol/L Normal - [facility] Comment on above: Performed By: #### C DP, BMP, TROPI ####[address] [place] [address] BUN/CRE Ratio 13 Normal - [facility] Comment on above: Performed By: #### C DP, BMP, TROPI ####[address] [place] [address] Calcium 9.2 mg/dL Normal 8.6-10.4 [facility] Comment on above: Performed By: #### C DP, BMP, TROPI ####[address] [place] [address] Chloride 105 mmol/L Normal 98-107 [facility] Comment on above: Performed By: #### C DP, BMP, TROPI ####[address] [place] [address] CO2 23 mmol/L Normal 20-31 [facility] Comment on above: Performed By: #### C DP, BMP, TROPI ####[address] [place] [address] Creatinine 0.55 mg/dL Normal 0.50-0.90 [facility] Comment on above: Performed By: #### C DP, BMP, TROPI ####[address] [place] [address] eGFR (non-black) mL/min/{1.73_m2} Normal >60 [facility] Comment on above: Performed By: #### C DP, BMP, TROPI ####[address] [place] [address] Glucose mass conc 96 mg/dL Normal 70-99 [facility] Comment on above: Performed By: #### C DP, BMP, TROPI ####[address] [place] [address] Potassium molar conc 3.6 mmol/L Low 3.7-5.3 [facility] Comment on above: Performed By: #### C DP, BMP, TROPI ####[address] [place] [address] Sodium 142 mmol/L Normal 135-144 [facility] Comment on above: Performed By: #### C DP, BMP, TROPI ####[address] [place] [address] Staging: Normal [facility] Comment on above: Result Comment: Stag e 1: Some kidney damage normal GFRStage 2: Mild kidney damage GFR 60-89Stage 3: Moderate kidney damage GFR 30-59Stage 4: Severe kidney damage GFR 15-29Stage 5: Severe kidney damage GFR <15ESRD - chronic treatment by dialysis or transplantPerformed at [address] [place] [address] Performed By: #### C DP, BMP, TROPI ####[address] [place] [address] Urea nitrogen 7 mg/dL Normal 6-20 [facility] Comment on above: Performed By: #### C DP, BMP, TROPI ####[address] [place] [address] CBC with Diffon 02-19-2017 Abs. Basophil 0.00 k/uL Normal 0.0-0.2 [facility] Comment on above: Result Comment: Perf ormed at [address] [place] [address] Performed By: #### C DP, BMP, TROPI ####[address] , [facility] Abs.Neutrophil (Seg) 7.10 k/uL Normal 1.8-8.0 [facility] Comment on above: Performed By: #### C DP, BMP, TROPI ####[address] [place] [address] Basophils/100 WBC Auto (Bld) 0 % [facility] Comment on above: Performed By: #### C DP, BMP, TROPI ####[address] [place] [address] Eosinophils 0.30 10*3/uL Normal 0.0-0.4 [facility] Comment on above: Performed By: #### C DP, BMP, TROPI ####[address] , [facility] Eosinophils/100 leukocytes 3 % [facility] Comment on above: Performed By: #### C DP, BMP, TROPI ####[address] [place] [address] Erythrocyte distribution width Auto Ratio (RBC) 13.6 % Normal 12.1-15.2 [facility] Comment on above: Performed By: #### C DP, BMP, TROPI ####[address] [place] [address] Erythrocytes (RBC) 5.03 10*6/uL Normal 4.0-5.2 [facility] Comment on above: Performed By: #### C DP, BMP, TROPI ####[address] [place] [address] Hematocrit (HCT) 40.2 % Normal 36-46 [facility] Comment on above: Performed By: #### C DP, BMP, TROPI ####[address] [place] [address] Hemoglobin mass conc (Bld) 13.2 g/dL Normal 12.0-16.0 [facility] Comment on above: Performed By: #### C DP, BMP, TROPI ####[address] [place] [address] Lymphocytes 2.90 10*3/uL Normal 1.2-5.2 [facility] Comment on above: Performed By: #### C DP, BMP, TROPI ####[address] [place] [address] Lymphocytes/100 leukocytes 27 % Normal [facility] Comment on above: Performed By: #### C DP, BMP, TROPI ####[address] [place] [address] MCH 26.2 pg Normal 26-34 [facility] Comment on above: Performed By: #### C DP, BMP, TROPI ####[address] [place] [address] MCHC mass conc (RBC) 32.8 g/dL Normal 31-37 [facility] Comment on above: Performed By: #### C DP, BMP, TROPI ####[address] [place] [address] MCV 79.9 fL Low 80-100 [facility] Comment on above: Performed By: #### C DP, BMP, TROPI ####[address] [place] [address] Monocytes 0.60 10*3/uL Normal 0.0-1.0 [facility] Comment on above: Performed By: #### C DP, BMP, TROPI ####[address] [place] [address] Monocytes/100 leukocytes 5 % Normal [facility] Comment on above: Performed By: #### C DP, BMP, TROPI ####[address] [place] [address] Neutrophil (Seg) 65 % Normal [facility] Comment on above: Performed By: #### C DP, BMP, TROPI ####[address] [place] [id number] Platelet mean volume (PMV) 9.6 fL Normal 6.0-12.0 [facility] Comment on above: Performed By: #### C DP, BMP, TROPI ####[address] [place] [address] Platelets 278 10*3/uL Normal 140-450 [facility] Comment on above: Performed By: #### C DP, BMP, TROPI ####[address] [place] [address] WBC (Leukocytes) 10.8 10*3/uL Normal 4.5-13.5 [facility] Comment on above: Performed By: #### C DP, BMP, TROPI ####[address] [place] [address] Auto Diff Performed NOT REPORTED Normal [facility] Comment on above: Performed By: #### C DP, BMP, TROPI ####[address] [place] [id number] Erythrocyte morphology NOT REPORTED [facility] Comment on above: Performed By: #### C DP, BMP, TROPI ####[address] [place] [address] Platelets NOT REPORTED Normal [facility] Comment on above: Performed By: #### C DP, BMP, TROPI ####[address] [place] [address] WBC Morphology NOT REPORTED Normal [facility] Comment on above: Performed By: #### C DP, BMP, TROPI ####[address] [place] [address] ED Noteon 02-19-2017 HIM IP Note OR Computer Systems Designer [facility] ED Provider Noteon 7 HIM IP Note OR Computer Systems Designer [facility] Troponinon 02-19-2017 Troponin T.cardiac mass conc ug/L Normal <0.03 [facility] Comment on above: Result Comment: Trop onin T results cannot be compared to Troponin-I results. Performed By: #### C DP, BMP, TROPI ####[address] [place] [address] Troponin I.cardiac mass conc [facility] Comment on above: Result Comment: Refe rence Range: <0.03 Within reference range. 0.03-0.09 Possible myocardial damage.Repeat at appropriate intervals to rule out chronic elevation. >= 0.10 Indicative of myocardial damage.Performed at [address] [place] [address] Performed By: #### C DP, BMP, TROPI ####[address] [place] [address] Vital Signs Date Time Vital Sign Value Performing Clinician Facility 06-07-2024 13:49-0500 Body mass index (BMI) [Ratio] 34.61 kg/m2 Katelyn LuisCytodyn Phone: [facility] 06-07-2024 13:49-0500 Body weight 94.35 kg Katelyn Luis DO Work Phone: [facility] 06-07-2024 13:49-0500 Diastolic blood pressure 70 mm[Hg] Katelyn Luis DO Work Phone: [facility] 06-07-2024 13:49-0500 Systolic blood pressure 120 mm[Hg] Katelyn Luis DO Work Phone: [facility] 05-09-2024 11:44-0500 Body mass index (BMI) [Ratio] 33.28 kg/m2 Katelyn Luis DO Work Phone: [facility] 05-09-2024 11:44-0500 Body weight 90.72 kg Katelyn Luis DO Work Phone: [facility] 05-09-2024 11:44-0500 Diastolic blood pressure 64 mm[Hg] Katelyn Luis DO Work Phone: [facility] 05-09-2024 11:44-0500 Systolic blood pressure 118 mm[Hg] Katelyn Luis DO Work Phone: [facility] 04-11-2024 10:37-0400 Body mass index (BMI) [Ratio] 31.12 kg/m2 Little LOWRY Work Phone: [facility] 04-11-2024 10:37-0400 Body weight 84.82 kg Little LOWRY Work Phone: [facility] 04-11-2024 10:37-0400 Diastolic blood pressure 68 mm[Hg] Little LOWRY Work Phone: [facility] 04-11-2024 10:37-0400 Systolic blood pressure 116 mm[Hg] Little LOWRY Work Phone: [facility] 02-27-2023 14:39-0400 Blood Pressure Location Gary MORRIS [facility] 02-27-2023 14:39-0400 Diastolic blood pressure 66 mm[Hg] Gary MORRIS [facility] 02-27-2023 14:39-0400 Heart rate 70 /min Gary MORRIS [facility] [place] 02-27-2023 14:39-0400 Respiratory rate 16 /min Gary DANGELOL [facility] [place] 02-27-2023 14:39-0400 Systolic blood pressure 106 mm[Hg] Gary MORRIS [facility] [place] 01-08-2022 08:09-0400 Body temperature 98.01 [degF] Queta Rice DO Work Phone: [employer] 01-08-2022 08:09-0400 Body weight 75.75 kg Queta Rice DO Work Phone: [facility] 01-08-2022 08:09-0400 Diastolic blood pressure 71 mm[Hg] Queta Rice DO Work Phone: [facility] 01-08-2022 08:09-0400 Heart rate 98 /min Queta Rice DO Work Phone: [employer] 01-08-2022 08:09-0400 Systolic blood pressure 112 mm[Hg] Queta Rice DO Work Phone: [facility] 12-10-2021 14:45-0400 Body height 166.37 cm Bret Long Other [employer] Other 12-10-2021 14:45-0400 Body mass index (BMI) [Ratio] 26.55 kg/m2 Bret Long Other [employer] Other 12-10-2021 14:45-0400 Body weight 73.48 kg Bret Long Other [employer] Other 12-10-2021 14:45-0400 Diastolic blood pressure 72 mm[Hg] Bret Long Other [employer] Other 12-10-2021 14:45-0400 Systolic blood pressure 103 mm[Hg] Bret Long Other [employer] Other 11-27-2021 14:01-0400 Body temperature 98.4 [degF] Queta Rice DO Work Phone: [facility] 11-27-2021 14:01-0400 Body weight 74.84 kg Queta Rice DO Work Phone: [place] [facility] 11-27-2021 14:01-0400 Diastolic blood pressure 64 mm[Hg] Queta Rice DO Work Phone: [facility] 11-27-2021 14:01-0400 Heart rate 98 /min Queta Rice DO Work Phone: [facility] 11-27-2021 14:01-0400 Systolic blood pressure 121 mm[Hg] Queta Rice DO Work Phone: [facility] 12-05-2020 19:26-0400 Heart rate 106 /min James Breece PA-C Work Phone: [facility] 12-05-2020 19:25-0400 Body temperature 98.29 [degF] James Breece PA-C Work Phone: [facility] 12-05-2020 19:25-0400 Body weight 97.98 kg James Breece PA-C Work Phone: [facility] 12-05-2020 19:25-0400 Diastolic blood pressure 86 mm[Hg] James Breece PA-C Work Phone: [facility] 12-05-2020 19:25-0400 Respiratory rate 16 /min James Breece PA-C Work Phone: [facility] 12-05-2020 19:25-0400 SaO2% (BldA) [Mass fraction] 97 % James Breece PA-C Work Phone: [facility] 12-05-2020 19:25-0400 Systolic blood pressure 126 mm[Hg] James Churchill PA-C Work Phone: [facility] Encounters Encounter Date Encounter Type Care Provider Facility Start: 06-07-2024 End: 06-07-2024 Bamboo flowsheet Katelyn Luis DO Work Phone: [facility] Start: 06-07-2024 End: 06-07-2024 Bamboo flowsheet Katelyn Luis DO Work Phone: [facility] Start: 06-07-2024 End: 06-07-2024 ambulatory KATELYN LUIS Not Available Start: 06-07-2024 End: 06-07-2024 Office outpatient visit 15 minutes Katelyn Luis DO Work Phone: [facility] Comment on above: 31 weeks gestation o f ; Third trimester ; Gastroesophageal reflux in Start: 05-24-2024 End: 05-24-2024 ambulatory LITTLE CHRISTIE [...] 04-11-2024 Bamboo flowsheet Little LOWRY Work Phone: [facility] Start: 04-11-2024 End: 04-11-2024 Bamboo flowsheet Ltitle LOWRY Work Phone: [facility] Start: 04-11-2024 End: 04-11-2024 Office outpatient visit 15 minutes Little LOWRY Work Phone: [facility] Comment on above: Second trimester pre gnancy; 22 weeks gestation of ; Diabetes mellitus screening Start: 04-11-2024 End: 04-11-2024 ambulatory LITTLE SHAHNAZ Not Available Start: 03-23-2024 End: 03-23-2024 ambulatory KATELYN R LUIS [facility] Start: 03-14-2024 End: 03-14-2024 ambulatory KATELYN LUIS Not Available Start: 02-15-2024 End: 02-15-2024 ambulatory LITTLE SHAHNAZ Not Available Start: 01-20-2024 End: 01-20-2024 ambulatory KATELYN LUIS Not Available Start: 01-01-2024 End: 01-01-2024 ambulatory LITTLE SHAHNAZ Not Available Start: 12-17-2023 End: 12-17-2023 ambulatory LITTLE SHAHNAZ Not Available Start: 02-27-2023 End: 02-28-2023 ambulatory Gary MORRIS Facility:[facility] Start: 02-27-2023 End: 02-27-2023 Patient encounter procedure Gary MORRIS [facility] Start: 02-23-2023 ambulatory Alexandr Bourgeois Facility:[facility] Start: 02-05-2023 ambulatory Gary MORRIS Facility:[facility] [...] BELTRAN . Facility:[facility] Start: 02-18-2022 ambulatory QUETA QUETA M~[id number] [facility] Start: 02-12-2022 ambulatory QUETA QUETA M~[id number] [facility] Start: 02-12-2022 End: 02-12-2022 Telemedicine consultation with patient Queta M Rice DO Work Phone: [facility] Comment on above: Anxiety (Primary Dx) Start: 01-19-2022 Refill Luis Dipalma D O Work Phone: [facility] Start: 01-19-2022 Refill Luis Dipalma D O Work Phone: [facility] Start: 01-08-2022 End: 01-08-2022 ambulatory QUETANigel HARPERE M~[id number] [facility] Start: 01-08-2022 End: 01-08-2022 Office outpatient visit 25 minutes Queta M Rice DO Work Phone: [facility] Comment on above: Anxiety (Primary Dx) ; Hypotension, unspecified hypotension type Start: 01-08-2022 End: 01-08-2022 Patient encounter procedure Queta M Rice DO Work Phone: [facility] Start: 12-11-2021 End: 12-11-2021 ambulatory QUETANigel HARPERE M~[id number] [facility] Start: 12-10-2021 End: 12-10-2021 ambulatory Bret Long Other [facility] Other Start: 12-10-2021 Office outpatient ne w 45 minutes Bret [facility] Start: 11-27-2021 End: 11-27-2021 ambulatory QUETA Huffman~[id number] [facility] R[facility] Start: 11-27-2021 End: 11-27-2021 Office outpatient new 30 minutes Queta Osorio DO Work Phone: [facility] Comment on above: Anxiety (Primary Dx) Start: 11-27-2021 End: 11-27-2021 Patient encounter procedure Queta Osorio DO Work Phone: [facility] Start: 11-25-2021 Telephone encounter Dana Kinsey [facility] Start: 12-05-2020 End: 12-05-2020 ambulatory PHYSICIAN NO [facility] Start: 12-05-2020 End: 12-05-2020 Office outpatient new 20 minutes James Churchill PA-C Work Phone: [facility] [place] Comment on above: Vaginal sore (Primar y Dx) Start: 02-19-2017 End: 02-19-2017 Emergency department patient visit [facility] Procedures Date Procedure Procedure Detail Performing Clinician Start: 06-07-2024 Urnls dip stick/tabl et rgnt non-auto w/o micrscp Katelyn Luis DO Work Phone: Start: 05-09-2024 Urnls dip stick/tabl et rgnt non-auto w/o micrscp Katelyn Luis DO Work Phone: Start: 04-11-2024 Urnls dip stick/tabl et rgnt non-auto w/o micrscp Little LOWRY Work Phone: Start: 11-27-2021 Adult depression scr eening assessment Queta Rice DO Work Phone: Start: 12-05-2020 Urine test visual color cmprsn meths James Churchill PA-C Work Phone: Start: 02-19-2017 Ct angiography chest w/contrast/noncontrast KIM ENA Start: 02-19-2017 SALINE LOCK IV KIM SIBLEY Start: 02-19-2017 TELEMETRY MONITORING SEBASTIAN CRESPO S[place]HERLAND Start: 02-19-2017 BASIC METABOLIC PANEL Nathanael SUTHERLAND Start: 02-19-2017 CBC WITH AUTO DIFFERENTIAL KIM ENA Start: 02-19-2017 TROPONIN KIM Howell Start: 02-19-2017 EKG 12-LEAD KIM Howell None (qualifier value) Henrik MORRIS Plan of Treatment Date Care Activity Detail Author Start: 06-21-2024 End: 06-21-2024 Patient encounter procedure 06/21/2024 1:20 PM EST Routine [facility] [address] [place] [phone] Little Christie PA [address] [place] [address] [facility] Start: 05-24-2024 End: 05-24-2024 Patient encounter procedure 05/24/2024 2:10 PM EST Routine [facility] [address] [place] [phone] Little Christie PA [address] [place] [address] Arrived [facility] Comment on above: Arrived Start: 05-23-2024 End: 05-23-2024 Patient encounter procedure 05/23/2024 1:50 PM EST Routine [facility] [address] [place] [phone] Little Christie PA [address] [place] [address] [facility] Start: 05-09-2024 End: 05-09-2025 US biophysical profile w non stress test US biophysical profile w non stress test Imaging Routine Second trimester 26 weeks gestation of History of miscarriage Expected: 05/09/2024 (Approximate), Expires: 05/09/2025 [facility] Work Phone: Comment on above: Expected: 05/09/2024 (Approximate), Expires: 05/09/2025 Start: 05-09-2024 End: 05-09-2025 US for [facility] Comment on above: Expected: 05/09/2024 (Approximate), Expires: 05/09/2025 Start: 05-09-2024 End: 05-09-2024 Patient encounter procedure [facility] Comment on above: Arrived Start: 04-11-2024 End: 04-11-2025 CBC panel - Blood by Automated count CBC Lab Routine Diabetes mellitus screening Expected: 04/11/2024 (Approximate), Expires: 04/11/2025 [facility] Work Phone: Comment on above: Expected: 04/11/2024 (Approximate), Expires: 04/11/2025 Start: 04-11-2024 End: 04-11-2025 Measurement of glucose 1 hour after glucose challenge for glucose tolerance test Glucose tolerance, 1 hour Lab Routine Diabetes mellitus screening Expected: 04/11/2024 (Approximate), Expires: 04/11/2025 [facility] Healthcare Comment on above: Expected: 04/11/2024 (Approximate), Expires: 04/11/2025 Start: 04-11-2024 End: 04-11-2024 Patient encounter procedure 04/11/2024 10:30 AM EDT Routine [facility] [address] [place] [phone] Little Christie PA [address] [place] [address] Arrived [facility] Comment on above: Arrived Start: 03-06-2024 Influenza vaccination Influenza Vacc ine (#1) [facility] Start: 11-27-2022 Adolescent depressio n screening assessment Depression Screening [facility] Start: 03-06-2022 Influenza vaccination [facility] Start: 02-07-2022 End: 02-07-2022 Patient encounter procedure 02/07/2022 Office Visit Family Medicine Queta Osorio, [address] [phone] [facility] Start: 12-19-2021 End: 12-19-2021 Patient encounter procedure 12/19/2021 Office Visit Family Medicine Queta Osorio DO [address] [phone] [facility] Start: 12-07-2021 COVID-19 Vaccine (3 - Booster for Moderna series) COVID-19 Vaccine (3 - Booster for Moderna series) [facility] Start: 11-27-2021 End: 11-27-2021 Patient encounter procedure 11/27/2021 Office Visit Family Medicine Queta Osorio DO [address] [phone] [facility] Start: 11-24-2021 Adolescent depressio n screening assessment Depression Screening [facility] Start: 11-24-2021 Hepatitis C screening [facility] Start: 11-24-2021 HIV screening HIV Screening [facility] Start: 11-24-2021 Social Influencers o f Health Screening Social Influencers of Health Screening [facility] Start: 03-06-2021 Influenza vaccination Sequenti al Influenza Vaccine (Season Ended) [facility] Start: 2017 Screening for malign ant neoplasm of cervix Cervical Cancer Screening: Pap Smear [facility] Start: 2015 DTaP,Tdap,and Td Vac cines (1 - Tdap) DTaP,Tdap,and Td Vaccines (1 - Tdap) [facility] Start: 2014 Hepatitis C screening Hepatitis C Sc reening [facility] Start: 2011 HIV screening HIV Screening [facility] Start: 2008 COVID-19 Vaccine (1) COVID-19 Vaccin e (1) [facility] Start: 2008 Depression screening using PHQ-9 (Patient Health Questionnaire 9) score Depression Screening (PHQ9) [facility] Start: 2007 HPV Vaccines (1 - 2- dose series) HPV Vaccines (1 - 2-dose series) [facility] Start: 2007 Vaccination for april n papillomavirus HPV Vaccines (1 - 2-dose series) [facility] Start: 2001 COVID-19 Vaccine (1) COVID-19 Vaccin e (1) [facility] Start: 1999 History and physical examination, annual for health maintenance Wellness Visit [facility] Start: 1996 Screening for Chlamy marilee trachomatis Chlamydia Screening [facility] Start: 1996 Screening for malign ant neoplasm of cervix Pap Smear [facility] Start: 1996 Tetanus vaccination Tetanus: Every 1 0yrs [facility] Chlamydia trachomati s rRNA assay Chlamydia/GC/Trichomon as Amplified RNA Microbiology Routine Vaginal sore Ordered: 12/05/2020 [facility] Comment on above: Ordered: 12/05/2020 HSV by PCR Superfici al Site HSV by PCR Superficial Site Lab Routine Vaginal sore Ordered: 12/05/2020 [facility] Comment on above: Ordered: 12/05/2020 Neisseria gonorrhoea e nucleic acid detection Chlamydia/Gonorrhoeae Amplified RNA Microbiology Routine Vaginal sore Ordered: 12/05/2020 [facility] Comment on above: Ordered: 12/05/2020 Trichomonas vaginali s Amplified RNA Trichomonas vaginalis Amplified RNA Microbiology Routine Vaginal sore Ordered: 12/05/2020 [facility] Comment on above: Ordered: 12/05/2020 Immunizations Immunization Date Immunization Notes Care Provider Bj mcintosh 07-09-2021 SARS-CoV-2 (COVID-19 ) mRNA-1273 vaccine Gary MORRIS [facility] [place] 06-08-2021 SARS-CoV-2 (COVID-19 ) mRNA-1273 vaccine Gary MORRIS [facility] [place] 04-10-2011 influenza virus vaccine, unspecified formulation [facility] Work Phone: [facility] Payers Date Payer Category Payer Private Health Insurance [facility] MEDICA[facility] [id number] 2021 Medicaid [id number] 2020 Medicaid [id number]. [id number] 2016 Unknown [id number] 2013 Unknown [id number] 1996 Unknown [id number] 2.16.840.1.115210.3.579.2. 903 1996 Unknown [id number] 2.16.840.1.310604.3.579.2. 1143 1996 Unknown [id number] 2.16.840.1.519068.3.579.2. 114 1996 Unknown [id number] 2.16.840.1.394428.3.579.2. 1143 1996 Unknown [id number] 2.16.840.1.678044.3.579.2. 114 1996 Unknown [id number] 2.16.840.1.968305.3.579.2. 114 1996 Unknown [id number] 2.16.840.1.550160.3.579.2. 593 1996 Unknown [id number] 2.16.840.1.472908.3.579.2. 593 1996 Unknown [id number] 2.16.840.1.216869.3.579.2. 593 1996 Unknown [id number] 2.16.840.1.626950.3.579.2. 593 1996 Unknown [id number] 2.16.840.1.166026.3.579.2. 593 1996 Unknown [id number] 2.16.840.1.062462.3.579.2. 593 1996 Unknown [id number] 2.16.840.1.957745.3.579.2. 593 1996 Unknown [id number] 2.16.840.1.400824.3.579.2. 727 1996 Unknown [id number] 2.16.840.1.671528.3.579.2. 128 1996 Unknown [id number] 2.16.840.1.240699.3.579.2. 128 1996 Unknown [id number] 2.16.840.1.180133.3.579.2. 1258 1996 Unknown [id number] 2.16.840.1.780504.3.579.2. 1258 1996 Unknown [id number] 2.16.840.1.253160.3.579.2. 1258 1996 Unknown [id number] 2.16.840.1.552721.3.579.2. 125 1996 Unknown [id number] 2.16.840.1.486654.3.579.2. 1258 1996 Unknown [id number] 2.16.840.1.511735.3.579.2. 1258 1996 Unknown [id number] 2.16.840.1.328893.3.579.2. 1258 1996 Unknown [id number] 2.16.840.1.341835.3.579.2. 1258 1996 Unknown [id number] 2.16.840.1.091709.3.579.2. 1258 1960 Unknown [id number] 2.16.840.1.730253.3.579.2. 727 1959 Medicaid [id number] 1959 Self-pay 1959 Unknown [id number] 1959 Unknown [id number] 1959 Unknown [id number] Unknown [id number] 2.16.840.1.062759.3.579.2. 531 Social History Date Type Detail Facility Start: 12-05-2020 End: 02-27-2023 Tobacco smoking status NHIS Never smoker [facility] Start: 12-05-2020 End: 11-27-2021 Tobacco use and exposure Never used [facility] Start: 12-05-2020 Alcohol intake Current drinke r of alcohol (finding) [facility] Start: 12-05-2020 End: 11-27-2021 History SDOH Alcohol Frequency 1 [facility] Start: 12-05-2020 Alcohol Comment occ [facility] Start: 1996 [facility] Start: 11-17-2021 End: 02-12-2022 Exposure to SARS-CoV-2 (event) Not sure [facility] Tobacco smoking stat [facility] Tobacco smoking consumption unknown [facility] Start: 11-27-2021 End: 05-24-2024 Alcohol intake Lifetime non-drinker (finding) [facility] Start: 1995 Sex Assigned At Female T [facility] Start: 12-17-2023 Sex Assigned At F [facility] Tobacco smoking status Never [facility] Start: 03-28-2023 Tobacco smoking stat [facility] Ex-smoker [facility] History of tobacco use Current smoker [facility] History of tobacco use Cigarette Smoker [facility] Start: 12-17-2023 History of Social function [facility] Start: 11-17-2023 [facility] Start: 01-19-2023 Gender identity Identifies as female gender (finding) [facility] Functional Status Date Assessment Result Facility 02-27-2023 Functional Status N/A [facility] Clinical Notes 12-05-2020 to 06-07-2024 Mae Bradley LPN - 06/07/2024 1:20 PM Maria Eugenia Hein MA - 05/09/2024 11:30 AM ESSENCE Mahan - 04/11/2024 10:30 AM Chema Osorio DO - 02/12/2022 7:30 AM EDT Note Date & Type Note Facility 06-07-2024 History of Present illness Narrative Reason for Appointment: Patient ID: Leslie Ford is a 29 y.o. female who presents for Routine Visit Patient presents today for Return OB appointment. MEDICATIONS Current Outpatient Medications Medication Instructions aspirin 81 mg, Daily RT omeprazole (PRILOSEC) 20 mg, Oral, Daily before breakfast, Do not crush or chew. ondansetron ODT (ZOFRAN-ODT) 4 mg, Every 8 hours PRN Vit-Fe Fumarate-FA ( Plus/Iron) 27-1 MG tablet 1 tablet, Oral, Daily ALLERGIES No Known Allergies PROBLEMS Active Ambulatory Problems Diagnosis Date Noted History of miscarriage 05/09/2024 26 weeks gestation of 05/09/2024 Resolved Ambulatory Problems Diagnosis Date Noted No [...] Cancer Sister Thyroid Cancer Brother SURGICAL HISTORY No past surgical history on file. REVIEW OF SYSTEMS Review of Systems: Review [...] nursing note reviewed. Exam conducted with a breast splitter present. Vitals: Estimated body mass index is 34.61 kg/m as calculated from the following: Height as of 02/02/23: 5' 5 . Weight as of this encounter: 208 lb. BP: 120/70 Patient's last menstrual period was 11/03/2023. ASSESSMENT & PLAN ICD-10-CM 1. 31 weeks gestation of Z3A.31 POCT urinalysis dipstick manually resulted 2. Third trimester Z34.93 POCT urinalysis dipstick manually resulted 3. Gastroesophageal reflux in O99.619 omeprazole (PriLOSEC) [address] capsule K21.9 Return OB: Patient presents today for a routine obstetrics appointment. Patient is currently 31w0d . Patient states she is doing well but has complaints of being tired due to current . Patient has verbalizes frequent movement. labor precautions was discussed/given and patient was instructed to perform kick counts three times a day. Orders Placed This Encounter Procedures POCT urinalysis dipstick manually resulted Follow Up: Patient is to return to office in 2 week for routine OB appointment. Documented by Mae Bradley LPN on behalf of: Katelyn Smith DO documented in this encounter [facility] 05-09-2024 History of Present illness Narrative Reason [...] nursing note reviewed. Exam conducted with a breast splitter present. Vitals: Estimated body mass index is [...] Katelyn Smith DO documented in this encounter [facility] 04-11-2024 History of Present illness Narrative [...] of: ESSENCE Haley documented in this encounter [facility] 02-27-2023 Note Chief Complaint consultation for [...] with excisional biopsy under local anesthesia at [facility]; call with problems/questions. Follow-up No qualifying data [...] Recorded SARS-CoV-2 (COVID-19) mRNA-1273 vaccine 06/08/2021 Recorded [facility] Comment on above: Result Comment: Elec tronically Signed By: ALEXANDRA RANGEL, Gary Jackson\Date and Time Signed: 02/27/23 16:20 EDT 02-12-2022 History of Present illness Narrative Attempted to complete Mchart and patient was not online despite speaking to SEBASTIAN prior to appointment. Attempted to call on phone 3 separate times before noon with no answer. May reschedule at later date. documented in this encounter [facility] 01-08-2022 History of Present illness Narrative bp's [...] due to buspirone. documented in this encounter [facility] 12-10-2021 Evaluation note Encounter Date Diagnosis Assessment Notes Dec, Irritable bowel syndrome with diarrhea (ICD-10 - K58.0) Continue medications without change Dec, Epigastric pain (ICD-10 - R10.13) Dec, Chronic nausea (ICD-10 - R11.0) Dec, Family history of carcinoma in situ of anal canal (ICD-10 - Z84.89) Dec, Other Continue Zofran prn Pt to call if symptoms worsen [facility] 05-25-2022 History of Present illness Narrative* Queta Osorio DO - 11/27/2021 2:00 PM EDT Subjective Patient ID: Leslie Ford is a 26 y.o. female. Chief Complaint Patient presents with [facility] 26 y.o. female presents to [facility]. History of anxiety and depression. Has [...] it ( July 2017) documented in [facility] encounter[facility] [id number] History of Present illness Narrative* Dana Rosario [...] like me to do? documented in this encounterC[facility] [id number] History of Present illness Narrative* James Churchill PA-C - 12/05/2020 8:22 PM EDT Images from the original note were not included. Patient Name: [facility] Location: [address] [facility] [id number] Date Of : Date Of Visit: 1995 12/05/2020 MRN# Provider: [id number] James Churchill PA-C Chief Complaint Patient presents [...] urine from irritatingthe sores. ? Take an cdaf-rfp-noohodh pain medicine, such as acetaminophen (Tylenol), ibuprofen [...] Log into your personal health record on [email or web address] and enter E579 in the Education box to learn more about Genital Herpes: Care Instructions. Current as of: August 31, 2019 Content Version: 12.8 [employer]. Care instructions adapted under license by your healthcare professional. If you have questions about a medical condition or this instruction, always ask your healthcare professional. [employer] disclaims any warranty or liability for your use of this information. documented in this [id number] Instructions* Patient Instructions* James Churchill PA-C - [...] urine from irritatingthe sores. ? Take an chks-uve-utjqrey pain medicine, such as acetaminophen (Tylenol), ibuprofen [...] Log into your personal health record on [email or web address] and enter E579 in the Education box to learn more about Genital Herpes: Care Instructions. Current as of: August 31, 2019 Content Version: 12.8 [employer]. Care instructions adapted under license by your healthcare professional. If you have questions about a medical condition or this instruction, always ask your healthcare professional. [employer] disclaims any warranty or liability for your use of this information. documented in [facility] encounter[facility] Hospital[facility] + Plan note No data available for this section [facility] [place] Evaluation note* Diagnosis Vaginal sore- Primary documented in this encounter [facility] note* Diagnosis Anxiety- Primary Anxiety state, unspecified [facility] Diagnosis Anxiety- Primary Anxiety state, unspecified Hypotension, unspecified hypotension type documented in this encounter [facility] note* Diagnosis Anxiety- Primary Anxiety state, unspecified documented in this encounter [facility] note* Diagnosis Second trimester state, incidental 22 weeks gestation of Diabetes mellitus screening Screening for diabetes mellitus [facility]* Diagnosis Second trimester state, incidental 26 weeks gestation of History of miscarriage Personal history of other genital system and obstetric disorders [facility]* Diagnosis 31 weeks gestation of Third trimester state, incidental Gastroesophageal reflux in [facility] Narrative - Reported* Type Description Date Medical History IBS [facility] Other Hospital Discharge instructions No data available for this section [facility] [place] Progress note No data available for this section [facility] Summary Purpose Family History No Family History Records FoundNo Family History Records FoundNo Family History Records FoundNo Family History Records FoundNo Family History Records FoundNo Family History Records FoundNo Family History Records FoundNo Family History Records FoundNo Family History Records Found Advance Directives Documents on File Type Date Recorded Patient [employer] anation Advance Directives and Living Will Documents on File Type Date Recorded Patient [employer] anation Power of Manager Medical Affairs Additional Source Comments INFORMATION SOURCE (unrecogn ized section and content) DATE CREATED AUTHOR 12/30/2017 [facility] DATE CREATED AUTHOR AUTHOR'S ORGANIZ ATION 12/06/2020 [facility] DATE CREATED AUTHOR AUTHOR'S ORGANIZ ATION 02/16/2022 [facility] DATE CREATED AUTHOR AUTHOR'S ORGANIZ ATION 02/27/2022 [facility] DATE CREATED AUTHOR AUTHOR'S ORGANIZ ATION 11/14/2022 [facility] DATE CREATED AUTHOR AUTHOR'S ORGANIZ ATION 03/02/2023 [facility] DATE CREATED AUTHOR AUTHOR'S ORGANIZ ATION 07/05/2023 [facility] DATE CREATED AUTHOR AUTHOR'S ORGANIZ ATION 03/25/2024 [facility] DATE CREATED AUTHOR AUTHOR'S ORGANIZ ATION 06/09/2024 [facility] EPIC Reason for Visit (unrecogniz [...] Care Teams (unrecognized sec tion and content) Rehabilitation Worker Relationship Specialty Start Date End Date Lalito Osoriojuana Huffman DO [address] [place] [phone] PCP - General Family Medicine 11/27/21 Rehabilitation Worker Relationship Specialty Start Date End Date DevonLalitoQueta DO Nathanael [address] [place] [phone] PCP - General Family Medicine 11/27/21 Rehabilitation Worker Relationship Specialty Start Date End Date Queta Osorio [address] [phone] PCP - General Family Medicine 11/27/21 Rehabilitation Worker Relationship Specialty Start Date End Date Homar Beltran MD [address] [place] [phone] PCP - General Family Medicine 01/20/23 Rehabilitation Worker Relationship Specialty Start Date End Date Homar Beltran MD [address] [facility] [place] [phone] PCP - General Family Medicine 01/20/23 Rehabilitation Worker Relationship Specialty Start Date End Date Homar Beltran MD [address] [facility] [place] [phone] PCP - General Family Medicine 01/20/23 Rehabilitation Worker Relationship Specialty Start Date End Date Homar Beltran MD [address] [facility] [place] [address] PCP - General Family Medicine 01/20/23 Rehabilitation Worker Relationship Specialty Start Date End Date Homar Beltran MD [address] [facility] [place] [phone] PCP - General Family Medicine 01/20/23 Rehabilitation Worker Relationship Specialty Start Date End Date Homar Beltran MD [address] [facility] [place] [phone] PCP - General Family Medicine 01/20/23 Rehabilitation Worker Relationship Specialty Start Date End Date Homar Beltran MD [address] [facility] [place] [phone] PCP - General Family Medicine 01/20/23 FOR [...] BE BASED ON THE PRIMARY CLINICAL RECORDS. [facility] provides no warranty or guarantee of the accuracy or completeness of information in this document.
--- NOTE | 2024-06-16 11:12 | US_ITS ---
[address] [address] Patient Name: KISHAN RAMSEY MRN: [id number] date: 1995 Sex: F Assigned Patient Location: [facility] Current Patient Location: [facility] Accession/Order Number: [id number] Exam Date: 06/16/2024 11:15 Report Date: 06/16/2024 11:46 At the request of: KATELYN DUVALL Procedure: US OB BPP w non-stress EXAMINATION: US OB BPP w non-stress HISTORY: History of miscarriage COMPARISON: No relevant comparison available. TECHNIQUE: Ultrasound biophysical profile was performed in the radiology department. non-reactive stress testing was performed by nursing staff in the birthing center. FINDINGS: BREATHING MOVEMENTS: 2 GROSS BODY MOVEMENTS: 2 TONE: 2 QUALITATIVE AMNIOTIC FLUID VOLUME: 2 PRESENTATION: CEPHALIC HEART RATE: 140.63 bpm AMNIOTIC FLUID VOLUME: 15.8 cm GESTATIONAL AGE: 32 weeks 2 days US/US OB BPP w non-stress IMPRESSION: Total biophysical profile score: 8 Electronically authenticated by: AKUA MELENDEZ Date: 06/16/2024 11:46
[2024-06-16 11:35] VITALS: BP 107/64; PULSE 86
== END 2024-06-16 12:00 | disposition home or self-care (01) ==
LOC: US 06:22 → FBC 11:07
PROVIDERS: PCP Family Medicine; Visit Provider Obstetrics & Gynecology
DX: O26.893 Other specified pregnancy related conditions, third trimester (principal); Z3A.32 32 weeks gestation of pregnancy
CPT/HCPCS: 76818

== ENCOUNTER 2024-06-20 06:09 | Outpatient (OUT) | payer OTHER, SELFPAY ==
--- OUTSIDE RECORDS SUMMARY | 2024-06-20 06:12 | XMS_ITS | CCD ---
Author Organization [facility] Care Team Providers Care Tobacco Roller Name Role Phone KIM SUTHERLAND Unavailable Unavailable WILLY CONKLIN Unavailable Unavailable HOMAR BELTRAN Unavailable Unavailable HOMAR BELTRAN Unavailable Unavailable No, Physician Primary Care Provider Unavailsuman e FINN, PHYSICIAN Primary Care Unavailable JAMES ALCAZAR Attending Unavailable Unavailable Primary Care Provider Unavailsuman e Queta Osorio DO Primary Care Provider Bret Long Unavailable RICE RICE, QUETA QUETA M~[id number] Attending Unavailable RICE RICE, QUETA QUETA M~[id number] Primary Ca re Unavailable RICE RICE, QUETA QUETA M~[id number] Attending Unavailable RICE RICE, QUETA QUETA M~[id number] Primary Ca re Unavailable RICE RICE, QUETA QUETA M~[id number] Attending Unavailable RICE RICE, QUETA QUETA M~[id number] Primary Ca re Unavailable RICE RICE, QUETA QUETA M~[id number] Attending Unavailable RICE RICE, QUETA QUETA M~[id number] Primary Ca re Unavailable RICE RICE, QUETA QUETA M~[id number] Referring Unavailable RICE RICE, QUETA QUETA M~[id number] Primary Ca re Unavailable ITA REYES Admitting [...] Unavailable Homar Beltran MD Primary Care Provider [phone] LITTLE CHRISTIE Attending Unavailable LUIS, KATELYN Attending Unavailable SHAHNAZ, LITTLE Attending Unavailable LUIS, KATELYN Attending Unavailable SHAHNAZ, LITTLE Attending Unavailable LUIS, KATELYN Attending Unavailable SHAHNAZ LITTLE Attending Unavailable KELIN SMITHY Attending Unavailable Allergies Allergy Classification Reported Allergen(s) Allergy Type Date of Onset Reaction(s) Facility (1 source) No Known Medication Allergies; Translations: [No Known Medication Allergies] Propensity to adverse reactions (disorder) [facility] Repository Medications Current Medications Medication Drug [...] UA Negative Negative - 4(70) +++ mg/dL [facility] Blood, UA Negative Negative - 50 Angel Luis/mcL [facility] Clarity, UA Clear [facility] Color, UA Yellow [facility] Glucose, UA Negative Negative - 1999(110) ++++ mg/dL [facility] Interpretation and review of laboratory results Normal [facility] Ketones, UA Negative Negative - 160(16) ++++ mg/dL [facility] Leukocytes, UA Negative Negative - 500+++ Drew/mcL [facility] Nitrite, UA Negative Negative - Positive [facility] pH, UA 7 5 - 9 [facility] Protein, UA Negative Negative - 1999(20) ++++ mg/dL [facility] Spec Grav, UA 1.02 1 - 1.03 [facility] Urobilinogen, UA 0.2 0.2 - 12 mg/dL [facility] Urinalysis macro (dipstick) panel (U)on 05-09-2024 Bilirubin, UA Positive Negative - 4(70) +++ mg/dL [facility] Comment on above: small Blood, UA Negative Negative - 50 Angel Luis/mcL [facility] Clarity, UA Clear [facility] Color, UA Miryam [facility] Glucose, UA Negative Negative - 1999(110) ++++ mg/dL [facility] Interpretation and review of laboratory results Abnormal [facility] Ketones, UA Positive Negative - 160(16) ++++ mg/dL [facility] Comment on above: trace Leukocytes, UA Negative Negative - 500+++ Drew/mcL [facility] Nitrite, UA Negative Negative - Positive [facility] pH, UA 6 5 - 9 [facility] Protein, UA Positive Negative - 1999(20) ++++ mg/dL [facility] Comment on above: 30 mg Spec Grav, UA 1.03 1 - 1.03 [facility] Urobilinogen, UA 0.2 0.2 - 12 mg/dL [facility] Urinalysis macro (dipstick) panel (U)on 04-11-2024 Bilirubin, UA Negative Negative - 4(70) +++ mg/dL [facility] Blood, UA Negative Negative - 50 Angel Luis/mcL [facility] Clarity, UA Clear [facility] Color, UA Yellow [facility] Glucose, UA Negative Negative - 1999(110) ++++ mg/dL [facility] Interpretation and review of laboratory results Normal [facility] Ketones, UA Negative Negative - 160(16) ++++ mg/dL [facility] Leukocytes, UA Negative Negative - 500+++ Drew/mcL [facility] Nitrite, UA Negative Negative - Positive [facility] pH, UA 6.5 5 - 9 [facility] Protein, UA Negative Negative - 2000(20) ++++ mg/dL [facility] Spec Grav, UA 1.020 1 - 1.03 [facility] Urobilinogen, UA 0.2 0.2 - 12 mg/dL [facility] Facesheeton 03-02-2023 Facesheet [id number] CD:127 Normal [facility] Ambulatory Visit Summaryon 0 02-27-2023 Ambulatory [...] History of pre-eclampsia Insomnia Migraines Overweight Normal [facility] RAD - Ultrasound Reporton RAD - Ultrasound Report [id number] D:127 Normal [facility] Physician Referralon 023 Physician Referral [id number] D:127 Normal [facility] INSULINon 11-08-2022 Insulin 7.7 uIU/mL Normal 2.6-24.9 [facility] Comment on above: Performed By: #### V ITAD, IRON #### [facility] [address] [place] [address] Dr. Chucho Jesus CBC AUTO DIFFon 11-07-2022 BASO # 0.0 103/ul Normal 0.0-0.1 [facility] Comment on above: Performed By: #### V ITAD, IRON #### [facility] [address] [place] [address] Dr. Chucho Jesus Basophils/100 WBC (Bld) 0.6 % Normal 0.2-2.0 [facility] Comment on above: Performed By: #### V ITAD, IRON #### [facility] [address] [place] [address] Dr. Chucho Jesus EO # 0.1 103/ul Normal 0.0-0.7 [facility] Comment on above: Performed By: #### V ITAD, IRON #### [facility] [address] [place] [address] Dr. Chucho Jesus Eosinophils/100 WBC (Bld) 1.4 % Normal 0.9-7.0 [facility] Comment on above: Performed By: #### V ITAD, IRON #### [facility] [address] [place] [address] Dr. Chucho Jesus Erythrocyte distribution width (RBC) [Ratio] 13.9 % Normal 11.0-15.0 [facility] Comment on above: Performed By: #### V ITAD, IRON #### [facility] [address] [place] [address] Dr. Chucho Jesus Hematocrit (Bld) [Volume fraction] 45.6 % Normal 36.0-48.0 [facility] Comment on above: Performed By: #### V ITAD, IRON #### [facility] [address] [place] [address] Dr. Chucho Jesus Hemoglobin (Bld) [Mass/Vol] 15.1 g/dL Normal 12.0-16.0 [facility] Comment on above: Performed By: #### V ITAD, IRON #### [facility] [address] [place] [address] Dr. Chucho Jesus IG # 0.01 10e3/ul Normal 0.00-0.03 [facility] Comment on above: Performed By: #### V ITAD, IRON #### [facility] [address] [place] [address] Dr. Chucho Jesus IG % 0.1 % Normal 0.0-0.5 [facility] Comment on above: Performed By: #### V ITAD, IRON #### [facility] [address] [place] [address] Dr. Chucho Jesus LYMPH # 1.9 103/ul Normal 1.2-3.8 [facility] Comment on above: Performed By: #### V ITAD, IRON #### [facility] [address] [place] [address] Dr. Chucho Jesus Lymphocytes/100 WBC (Bld) 26.3 % Normal 20.5-60.0 [facility] Comment on above: Performed By: #### V ITAD, IRON #### [facility] [address] [place] [address] Dr. Chucho Jesus MANUAL DIFF REQ NO Normal [facility] Comment on above: Performed By: #### V ITAD, IRON #### [facility] [address] [place] [address] Dr. Chucho Jesus MCH (RBC) [Entitic mass] 27.9 pg Normal 26.7-34.0 [facility] Comment on above: Performed By: #### V ITAD, IRON #### [facility] [address] [place] [address] Dr. Chucho Jesus MCHC (RBC) [Mass/Vol] 33.1 g/dL Normal 29.9-35.2 [facility] Comment on above: Performed By: #### V ITAD, IRON #### [facility] [address] [place] [address] Dr. Chucho Jesus MCV (RBC) [Entitic vol] 84.1 fL Normal 81.0-99.0 [facility] Comment on above: Performed By: #### V ITAD, IRON #### [facility] [address] [place] [address] Dr. Chucho Jesus MONO # 0.5 103/ul Normal 0.3-0.8 [facility] Comment on above: Performed By: #### V ITAD, IRON #### [facility] [address] [place] [address] Dr. Chucho Jesus Monocytes/100 WBC (Bld) 7.3 % Normal 1.7-12.0 [facility] Comment on above: Performed By: #### V ITAD, IRON #### [facility] [address] [place] [address] Dr. Chucho Jesus NEUT # 4.6 103/ul Normal 1.4-6.5 [facility] Comment on above: Performed By: #### V ITAD, IRON #### [facility] [address] [place] [address] Dr. Chucho Jesus Neutrophils/100 WBC (Bld) 64.3 % Normal 43.0-75.0 [facility] Comment on above: Performed By: #### V ITAD, IRON #### [facility] [address] [place] [address] Dr. Chucho Jesus Platelet mean volume (Bld) [Entitic vol] 10.9 fL Normal 9.5-13.5 [facility] Comment on above: Performed By: #### V ITAD, IRON #### [facility] [address] [place] [address] Dr. Chucho Jesus PLT 226 103/ul Normal 150-450 [facility] Comment on above: Performed By: #### V ITAD, IRON #### [facility] [address] [place] [address] Dr. Chucho Jesus RBC 5.42 106/ul Critically high 4.20-5.40 [facility] Comment on above: Performed By: #### V ITAD, IRON #### [facility] [address] [address] [address] Chucho Jesus WBC 7.2 103/ul Normal 4.0-11.0 [facility] Comment on above: Performed By: #### V ITAD, IRON #### [facility] [address] [place] [address] Dr. Chucho Jesus FREE THYROXINE INDEX T7on FTI 3.29 Normal 1.30-4.50 [facility] Comment on above: Performed By: #### V ITAD, IRON #### [facility] [address] [place] [address] Dr. Chucho Jesus T3U 35.0 % Normal 30.0-39.0 [facility] Comment on above: Performed By: #### V ITAD, IRON #### [facility] [address] [place] [address] Dr. Chucho Jesus T4 [Mass/Vol] 9.40 ug/dL Normal 4.80-13.90 [facility] Comment on above: Performed By: #### V ITAD, IRON #### [facility] [address] [place] [address] Dr. Chucho Jesus GLYCOHEMOGLOBIN A1Con 2022 ADA RECOMMENDATION SEE BELOW Normal [facility] Comment on above: Result Comment: ADA RECOMMENDED LIMIT 4.0 - 6.0 ADA THERAPEUTIC TARGET < 7.0 ACTION SUGGESTED > 7.0 Performed By: #### A 1C #### [facility] [address] [place] [address] Dr. Chucho Jesus Glucose [Mass/Vol] 94 mg/dL Normal [facility] Comment on above: Performed By: #### A 1C #### [facility] [address] [place] [address] Dr. Chucho Jesus HbA1c (Bld) [Mass fraction] 4.9 % Normal 4.5-6.2 [facility] Comment on above: Performed By: #### A 1C #### [facility] [address] [place] [address] Dr. Chucho Jesus IRONon 11-07-2022 Iron [Mass/Vol] 81.0 ug/dL Normal 50.0-170.0 [facility] Comment on above: Performed By: #### V ITAD, IRON #### [facility] [address] [address] [address] Chucho Jesus LIPID PROFILEon 11-07-2022 CHOL-HDL RATIO NORM SEE BELOW Normal [facility] Comment on above: Result Comment: 3.3 - 4.4 LOW RISK 4.4 - 7.1 AVERAGE RISK 7.1 - 11.0 MODERATE RISK >11.0 HIGH RISK Performed By: #### V ITAD, IRON #### [facility] [address] [address] [address] Chucho Jesus Cholesterol [Mass/Vol] 126 mg/dL Normal <=200 [facility] Comment on above: Performed By: #### V ITAD, IRON #### [facility] [address] [address] [address] Chucho Jesus Cholesterol in HDL [Mass/Vol] 38 mg/dL Critically low 40-60 [facility] Comment on above: Performed By: #### V ITAD, IRON #### [facility] [address] [address] [address] Chucho Jesus Cholesterol in LDL [Mass/Vol] 79.4 mg/dL Normal [facility] Comment on above: Performed By: #### V ITAD, IRON #### [facility] [address] [address] [address] Chucho Jesus Cholesterol.total/C holesterol in HDL [Mass ratio] 3.3 {ratio} Normal [facility] Comment on above: Performed By: #### V ITAD, IRON #### [facility] [address] [address] [address] Chucho Jesus HDL NORMAL > or = 60 mg/dl - LO W CARDIOVASCULAR RISK <40 mg/dl - HIGH CARDIOVASCULAR RISK Normal [facility] Comment on above: Performed By: #### V ITAD, IRON #### [facility] [address] [address] [address] Chucho Jesus LDL CALC NORMAL SEE BELOW Normal [facility] Comment on above: Result Comment: <100 mg/dl OPTIMAL 100 - 129 mg/dl NEAR OR ABOVE OPTIMAL 130 - 159 mg/dl BORDERLINE HIGH 160 - 189 mg/dl HIGH >190 mg/dl VERY HIGH Performed By: #### V ITAD, IRON #### [facility] [address] [address] [address] Chucho Jesus Triglyceride [Mass/Vol] 43 mg/dL Normal <=150 [facility] Comment on above: Performed By: #### V ITAD, IRON #### [facility] [address] [address] [address] Chucho Jesus VLDL CALC 8.6 mg/dL Normal [facility] Comment on above: Performed By: #### V ITAD, IRON #### [facility] [address] [place] [address] Dr. Chucho Jesus PROF 14(COMP METB)on 023 Albumin [Mass/Vol] 4.2 g/dL Normal 3.4-5.[address] [facility] Comment on above: Performed By: #### V ITAD, IRON #### [facility] [address] [place] [address] Dr. Chucho Jesus Albumin/Globulin [Mass ratio] 1.1 {ratio} Normal [facility] Comment on above: Performed By: #### V ITAD, IRON #### [facility] [address] [place] [address] Dr. Chucho Jesus ALP [Catalytic activity/Vol] 93 U/L Normal 46-116 [facility] Comment on above: Performed By: #### V ITAD, IRON #### [facility] [address] [address] [address] Chucho Jesus ALT [Catalytic activity/Vol] 16 U/L Normal 14-59 [facility] Comment on above: Performed By: #### V ITAD, IRON #### [facility] [address] [address] [address] Chucho Jesus Anion gap [Moles/Vol] 14.3 mmol/L Normal [facility] Comment on above: Performed By: #### V ITAD, IRON #### [facility] [address] [address] [address] Chucho Jesus AST [Catalytic activity/Vol] 16 U/L Normal 15-37 [facility] Comment on above: Performed By: #### V ITAD, IRON #### [facility] [address] [address] [address] Chucho Jesus Bilirubin [Mass/Vol] 1.0 mg/dL Normal 0.2-1.0 [facility] Comment on above: Performed By: #### V ITAD, IRON #### [facility] [address] [address] [address] Chucho Jesus Calcium [Mass/Vol] 9.4 mg/dL Normal 8.5-10.[address] [facility] Comment on above: Performed By: #### V ITAD, IRON #### [facility] [address] [place] [address] Dr. Chucho Jesus Chloride [Moles/Vol] 103 mmol/L Normal 98-107 [facility] Comment on above: Performed By: #### V ITAD, IRON #### [facility] [address] [address] [address] Chucho Jesus CO2 [Moles/Vol] 24.9 mmol/L Normal 21.0-32.0 [facility] Comment on above: Performed By: #### V ITAD, IRON #### [facility] [address] [place] [address] Dr. Chucho Jesus Creatinine [Mass/Vol] 0.68 mg/dL Normal 0.55-1.02 [facility] Comment on above: Performed By: #### V ITAD, IRON #### [facility] [address] [address] [address] Chucho Jesus EGFR-AF FILIPINO >60 Normal >=60 [facility] Comment on above: Performed By: #### V ITAD, IRON #### [facility] [address] [address] [address] Chucho Jesus EGFR-NON AF FILIPINO >60 Normal >=60 [facility] Comment on above: Performed By: #### V ITAD, IRON #### [facility] [address] [address] [address] Chucho Jesus Globulin (S) [Mass/Vol] 3.9 g/dL Normal [facility] Comment on above: Performed By: #### V ITAD, IRON #### [facility] [address] [address] [address] Chucho Jesus Glucose [Mass/Vol] 89 mg/dL Normal 74-106 [facility] Comment on above: Performed By: #### V ITAD, IRON #### [facility] [address] [address] [address] Chucho Jesus Potassium [Moles/Vol] 4.2 mmol/L Normal 3.5-5.1 [facility] Comment on above: Performed By: #### V ITAD, IRON #### [facility] [address] [place] [address] Dr. Chucho Jesus Protein [Mass/Vol] 8.1 g/dL Normal 6.4-8.2 [facility] Comment on above: Performed By: #### V ITAD, IRON #### [facility] [address] [place] [address] Dr. Chucho Jesus Sodium [Moles/Vol] 138 mmol/L Normal 136-[address] [facility] Comment on above: Performed By: #### V ITAD, IRON #### [facility] [address] [place] [address] Dr. Chucho Jesus Urea nitrogen [Mass/Vol] 9.0 mg/dL Normal 7.0-18.0 [facility] Comment on above: Performed By: #### V ITAD, IRON #### [facility] [address] [place] [address] Dr. Chucho Jesus Urea nitrogen/Creatinine [Mass ratio] 13.2 mg/mg Normal [facility] Comment on above: Performed By: #### V ITAD, IRON #### [facility] [address] [place] [address] Dr. Chucho Jesus TSHon 11-07-2022 TSH 1.668 uIU/mL Normal 0.358-3.740 [facility] Comment on above: Performed By: #### V AMAURY, IVELISSE #### [facility] [address] [place], [place] [address] Dr. Chucho Jesus Covid-19 PCR (CVDTB)on SARS-CoV-2 (COVID-19) RNA DMITRY+probe Ql (Unsp spec) Not detected Normal NOT DETECTED [facility] Comment on above: Result Comment: When diagnostic [...] for this test is supported by the [place] of Health and Human Service's declaration that [...] Performed By: #### V AMAURY, IVELISSE #### [facility] [address] [place], [place] [address] Dr. Chucho Jesus Covid-19 PCR (CVDTB)on SARS-CoV-2 (COVID-19) RNA DMITRY+probe Ql (Unsp spec) Not detected Normal NOT DETECTED [facility] Comment on above: Result Comment: When [...] for this test is supported by the [place] of Health and Human Service's declaration that [...] used). Performed By: #### C VDTB #### [facility] [address] [place] [address] Dr. Chucho Jesus INFLUENZA A AND B AGon 08-11 [facility] SEE BELOW Normal [facility] Comment on above: Result Comment: Nega tive for Flu A protein angiten. Infection due to Flu A cannot be ruled out. Flu A angiten in the sample may be below the detection limit of the test. Performed By: #### I NFLUAB #### [facility] [address] [place] [address] Dr. Chucho [facility] Normal [facility] Comment on above: Result Comment: Nega tive for Flu B protein antigen. Infection due to Flu B cannot be ruled out. Flu B antigen in the sample may be below the detection limit of the test. Performed By: #### I NFLUAB #### [facility] [address] [place] [address] Dr. Chucho Jesus INFLUENZA A AG Negative Normal NEGATIVE SEE COMMENT [facility] Comment on above: Performed By: #### I NFLUAB #### [facility] [address] [place] [address] Dr. Chucho Jesus INFLUENZA B AG Negative Normal NEGATIVE SEE COMMENT [facility] Comment on above: Performed By: #### I NFLUAB #### [facility] [address] [place] [address] Dr. Chucho Jesus Covid-19 PCR ([facility])on 05-07 SARS-CoV-2 (COVID-19) RNA DMITRY+probe Ql (Unsp spec) Not detected Normal NOT DETECTED [facility] Comment on above: Result Comment: When [...] for this test is supported by the [place] of [employer] and Human Service's declaration that [...] Performed By: #### V ITAD, IRON #### [facility] [address] [place] [address] Dr. Chucho Jesus INFLUENZA A AND B [facility] 05-26 [facility] SEE BELOW Normal [facility] Comment on above: Result Comment: Nega tive for Flu A protein angiten. Infection due to Flu A cannot be ruled out. Flu A angiten in the sample may be below the detection limit of the test. Performed By: #### V ITAD, IRON #### [facility] [address] [place] [address] Dr. Chucho Jesus [facility] SEE BELOW Normal [facility] Comment on above: Result Comment: Nega tive for Flu B protein antigen. Infection due to Flu B cannot be ruled out. Flu B antigen in the sample may be below the detection limit of the test. Performed By: #### V ITAD, IRON #### [facility] [address] [place] [address] Dr. Chucho Jesus INFLUENZA A AG Negative Normal NEGATIVE SEE COMMENT [facility] Comment on above: Performed By: #### V ITAD, IRON #### [facility] [address] [place] [address] Dr. Chucho Jesus INFLUENZA B AG Negative Normal NEGATIVE SEE COMMENT [facility] Comment on above: Performed By: #### V ITAD, IRON #### [facility] [address] [place] [address] Dr. Chucho Jesus INTERNAL CONTROLS Within Normal Limits Normal Wi thin Normal Limits [facility] Comment on above: Performed By: #### V ITAD, IRON #### [facility] [address] [address] [address] Chucho CARMEN URINE PROFILEon 2 Bilirubin Ql (U) Negative Normal NEGATIVE [facility] Comment on above: Performed By: #### V ITAD, IRON #### [facility] [address] [address] [address] Chucho Jesus Clarity (U) CLEAR Normal CLEAR [facility] Comment on above: Performed By: #### V ITAD, IRON #### [facility] [address] [address] [address] Chucho Jesus Color (U) YELLOW Normal YELLOW [facility] Comment on above: Performed By: #### V ITAD, IRON #### [facility] [address] [place] [address] Dr. Chucho BAHENA A micrscopic examination will be performed if indicated. Normal [facility] Comment on above: Performed By: #### V ITAD, IRON #### [facility] [address] [place] [address] Dr. Chucho Jesus Glucose Ql (U) Negative Normal NEGATIVE [facility] Comment on above: Performed By: #### V ITAD, IRON #### [facility] [address] [place] [address] Dr. Chucho Jesus Hemoglobin Ql (U) Negative Normal NEGATIVE [facility] Comment on above: Performed By: #### V ITAD, IRON #### [facility] [address] [place] [address] Dr. Chucho Jesus Ketones Ql (U) >=80 Abnormal NEGATIVE [facility] Comment on above: Performed By: #### V ITAD, IRON #### [facility] [address] [place] [address] Dr. Chucho Jesus LEUKOCYTES Negative Normal NEGATIVE [facility] Comment on above: Performed By: #### V ITAD, IRON #### [facility] [address] [place] [address] Dr. Chucho Jesus Nitrite Ql (U) Negative Normal NEGATIVE [facility] Comment on above: Performed By: #### V ITAD, IRON #### [facility] [address] [place] [address] Dr. Chucho Jesus pH (U) 6.0 [pH] Normal 5-9 [facility] Comment on above: Performed By: #### V ITAD, IRON #### [facility] [address] [place] [address] Dr. Chucho Jesus Protein (U) [Mass/Vol] 100 mg/dL Abnormal NEGATIVE/ TRACE [facility] Comment on above: Performed By: #### V ITAD, IRON #### [facility] [address] [place] [address] Dr. Chucho Jesus SPEC GRAVITY >=1.030 Abnormal 1.005-<=1.025 [facility] Comment on above: Performed By: #### V ITAD, IRON #### [facility] [address] [place] [address] Dr. Chucho Jesus UR MICRO IND INDICATED Normal [facility] Comment on above: Performed By: #### V ITAD, IRON #### [facility] [address] [place] [address] Dr. Chucho Jesus Urobilinogen Qn (U) 0.2 {Chelsea'U}/dL Normal 0.2 - 1. 0 [facility] Comment on above: Performed By: #### V ITAD, IRON #### [facility] [address] [place] [address] Dr. Chucho Jesus URon 05-22-2022 , QUAL Negative Normal NEGATIVE [facility] Comment on above: Performed By: #### V ITAD, IRON #### [facility] [address] [place] [address] Dr. Chucho Jesus URINE MICROSCOPIC ONLYon BACTERIA NONE SEEN Normal NONE SEEN [facility] Comment on above: Performed By: #### V ITAD, IRON #### [facility] [address] [place] [address] Dr. Chucho Jesus Bacteria identified Cx Nom (U) NOT INDICATED Normal [facility] Comment on above: Performed By: #### V ITAD, IRON #### [facility] [address] [place] [address] Dr. Chucho Jesus CAST NONE SEEN Normal NONE SEEN [facility] Comment on above: Performed By: #### V ITAD, IRON #### [facility] [address] [place] [address] Dr. Chucho Jesus Crystals LM Nom (Urine sed) NONE SEEN Normal NONE SEEN [facility] Comment on above: Performed By: #### V ITAD, IRON #### [facility] [address] [place] [address] Dr. Chucho Jesus Epithelial cells LM Ql (Urine sed) FEW Abnormal NONE SEEN /RARE [facility] Comment on above: Performed By: #### V ITAD, IRON #### [facility] [address] [place] [address] Dr. Chucho Jesus MUCOUS MODERATE Abnormal NONE SEEN [facility] Comment on above: Performed By: #### V ITAD, IRON #### [facility] [address] [place] [address] Dr. Chucho Jesus RBC NONE SEEN Abnormal 0-2 [facility] Comment on above: Performed By: #### V ITAD, IRON #### [facility] [address] [place] [address] Dr. Chucho Jesus WBC NONE SEEN Normal NONE SEEN [facility] Comment on above: Performed By: #### V ITAD, IRON #### [facility] [address] [place] [address] Dr. Chucho Jesus XR LSPINE 2_3 VIEWSon [...] MARCO CAMPOS Date: 2022-05-22 12:28 Normal [facility] INSULINon 04-25-2022 Insulin 10.4 uIU/mL Normal 2.6-24.9 [facility] Comment on above: Performed By: #### V ITAD, IRON #### [facility] [address] [place] [address] Dr. Chucho Jesus CBC AUTO DIFFon 04-24-2022 BASO # 0.0 103/ul Normal 0.0-0.1 [facility] Comment on above: Performed By: #### C BC #### [facility] [address] [place] [address] Dr. Chucho Jesus Basophils/100 WBC (Bld) 0.6 % Normal 0.2-2.0 [facility] Comment on above: Performed By: #### C BC #### [facility] [address] [place] [address] Dr. Chucho Jesus EO # 0.1 103/ul Normal 0.0-0.7 [facility] Comment on above: Performed By: #### C BC #### [facility] [address] [place] [address] Dr. Chucho Jesus Eosinophils/100 WBC (Bld) 1.8 % Normal 0.9-7.0 [facility] Comment on above: Performed By: #### C BC #### [facility] [address] [place] [address] Dr. Chucho Jesus Erythrocyte distribution width (RBC) [Ratio] 12.9 % Normal 11.0-15.0 [facility] Comment on above: Performed By: #### C BC #### [facility] [address] [place] [address] Dr. Chucho Jesus Hematocrit (Bld) [Volume fraction] 45.6 % Normal 36.0-48.0 [facility] Comment on above: Performed By: #### C BC #### [facility] [address] [place] [address] Dr. Chucho Jesus Hemoglobin (Bld) [Mass/Vol] 14.7 g/dL Normal 12.0-16.0 [facility] Comment on above: Performed By: #### C BC #### [facility] [address] [place] [address] Dr. Chucho Jesus IG # 0.02 10e3/ul Normal 0.00-0.03 [facility] Comment on above: Performed By: #### C BC #### [facility] [address] [place] [address] Dr. Chucho Jesus IG % 0.3 % Normal 0.0-0.5 [facility] Comment on above: Performed By: #### C BC #### [facility] [address] [place] [address] Dr. Chucho Jesus LYMPH # 1.6 103/ul Normal 1.2-3.8 [facility] Comment on above: Performed By: #### C BC #### [facility] [address] [place] [address] Dr. Chucho Jesus Lymphocytes/100 WBC (Bld) 24.5 % Normal 20.5-60.0 [facility] Comment on above: Performed By: #### C BC #### [facility] [address] [place] [address] Dr. Chucho Jesus MANUAL DIFF REQ NO Normal [facility] Comment on above: Performed By: #### C BC #### [facility] [address] [place] [address] Dr. Chucho Jesus MCH (RBC) [Entitic mass] 28.4 pg Normal 26.7-34.0 [facility] Comment on above: Performed By: #### C BC #### [facility] [address] [place] [address] Dr. Chucho Jesus MCHC (RBC) [Mass/Vol] 32.2 g/dL Normal 29.9-35.2 [facility] Comment on above: Performed By: #### C BC #### [facility] [address] [place] [address] Dr. Chucho Jesus MCV (RBC) [Entitic vol] 88.2 fL Normal 81.0-99.0 [facility] Comment on above: Performed By: #### C BC #### [facility] [address] [place] [address] Dr. Chucho Jesus MONO # 0.5 103/ul Normal 0.3-0.8 [facility] Comment on above: Performed By: #### C BC #### [facility] [address] [place] [address] Dr. Chucho Jesus Monocytes/100 WBC (Bld) 7.4 % Normal 1.7-12.0 [facility] Comment on above: Performed By: #### C BC #### [facility] [address] [place] [address] Dr. Chucho Jesus NEUT # 4.4 103/ul Normal 1.4-6.5 [facility] Comment on above: Performed By: #### C BC #### [facility] [address] [place] [address] Dr. Chucho Jesus Neutrophils/100 WBC (Bld) 65.4 % Normal 43.0-75.0 [facility] Comment on above: Performed By: #### C BC #### [facility] [address] [place] [address] Dr. Chucho Jesus Platelet mean volume (Bld) [Entitic vol] 9.9 fL Normal 9.5-13.5 [facility] Comment on above: Performed By: #### C BC #### [facility] [address] [place] [address] Dr. Chucho Jesus PLT 225 103/ul Normal 150-450 [facility] Comment on above: Performed By: #### C BC #### [facility] [address] [place] [address] Dr. Chucho Jesus RBC 5.17 106/ul Normal 4.20-5.40 [facility] Comment on above: Performed By: #### C BC #### [facility] [address] [place] [address] Dr. Chucho Jesus WBC 6.7 103/ul Normal 4.0-11.0 [facility] Comment on above: Performed By: #### C BC #### [facility] [address] [place] [address] Dr. Chucho Jesus FREE THYROXINE INDEX T7on FTI 3.29 Normal 1.30-4.50 [facility] Comment on above: Performed By: #### T 7, TSH, LIPID, CMP #### [facility] [address] [place] [address] Dr. Chucho Jesus T3U 27.0 % Critically low 30.0-39.0 [facility] Comment on above: Performed By: #### T 7, TSH, LIPID, CMP #### [facility] [address] [place] [address] Dr. Chucho Jesus T4 [Mass/Vol] 12.20 ug/dL Normal 4.80-13.90 [facility] Comment on above: Performed By: #### T 7, TSH, LIPID, CMP #### [facility] [address] [place] [address] Dr. Chucho Jesus GLYCOHEMOGLOBIN A1Con 2021 ADA RECOMMENDATION SEE BELOW Normal [facility] Comment on above: Result Comment: ADA RECOMMENDED LIMIT 4.0 - 6.0 ADA THERAPEUTIC TARGET < 7.0 ACTION SUGGESTED > 7.0 Performed By: #### A 1C #### [facility] [address] [place] [address] Dr. Chucho Jesus Glucose [Mass/Vol] 105 mg/dL Normal [facility] Comment on above: Performed By: #### A 1C #### [facility] [address] [place] [address] Dr. Chucho Jesus HbA1c (Bld) [Mass fraction] 5.3 % Normal 4.5-6.2 [facility] Comment on above: Performed By: #### A 1C #### [facility] [address] [place] [address] Dr. Chucho Jesus IRONon 04-24-2022 Iron [Mass/Vol] 48.0 ug/dL Critically low 50.0-170.[address] [facility] Comment on above: Performed By: #### V ITAD, IRON #### [facility] [address] [address] [address] Chucho Jesus LIPID PROFILEon 04-24-2022 CHOL-HDL RATIO NORM SEE BELOW Normal [facility] Comment on above: Result Comment: 3.3 - 4.4 LOW RISK 4.4 - 7.1 AVERAGE RISK 7.1 - 11.0 MODERATE RISK >11.0 HIGH RISK Performed By: #### V ITAD, IRON #### [facility] [address] [address] [address] Chucho Jesus Cholesterol [Mass/Vol] 184 mg/dL Normal <=200 [facility] Comment on above: Performed By: #### V ITAD, IRON #### [facility] [address] [address] [address] Chucho Jesus Cholesterol in HDL [Mass/Vol] 55 mg/dL Normal 40-60 [facility] Comment on above: Performed By: #### V ITAD, IRON #### [facility] [address] [address] [address] Chucho Jesus Cholesterol in LDL [Mass/Vol] 116.6 mg/dL Normal [facility] Comment on above: Performed By: #### V ITAD, IRON #### [facility] [address] [address] [address] Chucho Jesus Cholesterol.total/C holesterol in HDL [Mass ratio] 3.3 {ratio} Normal [facility] Comment on above: Performed By: #### V ITAD, IRON #### [facility] [address] [address] [address] Chucho Jesus HDL NORMAL > or = 60 mg/dl - LO W CARDIOVASCULAR RISK <40 mg/dl - HIGH CARDIOVASCULAR RISK Normal [facility] Comment on above: Performed By: #### V ITAD, IRON #### [facility] [address] [id number] Chucho Jesus LDL CALC NORMAL SEE BELOW Normal [facility] Comment on above: Result Comment: <100 mg/dl OPTIMAL 100 - 129 mg/dl NEAR OR ABOVE OPTIMAL 130 - 159 mg/dl BORDERLINE HIGH 160 - 189 mg/dl HIGH >190 mg/dl VERY HIGH Performed By: #### V ITAD, IRON #### [facility] [address] [address] [address] Chucho Jesus Triglyceride [Mass/Vol] 62 mg/dL Normal <=150 [facility] Comment on above: Performed By: #### V ITAD, IRON #### [facility] [address] [address] [address] Chucho Jesus VLDL CALC 12.4 mg/dL Normal [facility] Comment on above: Performed By: #### V ITAD, IRON #### [facility] [address] [address] [address] Chucho Jesus PROF 14(COMP METB)on 022 Albumin [Mass/Vol] 3.7 g/dL Normal 3.4-5.0 [facility] Comment on above: Performed By: #### T 7, TSH, LIPID, CMP #### [facility] [address] [address] [address] Chucho Jesus Albumin/Globulin [Mass ratio] 0.9 {ratio} Normal [facility] Comment on above: Performed By: #### T 7, TSH, LIPID, CMP #### [facility] [address] [address] [address] Chucho Jesus ALP [Catalytic activity/Vol] 74 U/L Normal 46-116 [facility] Comment on above: Performed By: #### T 7, TSH, LIPID, CMP #### [facility] [address] [address] [address] Chucho Jesus ALT [Catalytic activity/Vol] 16 U/L Normal 14-59 [facility] Comment on above: Performed By: #### T 7, TSH, LIPID, CMP #### [facility] [address] [address] [address] Chucho Jesus Anion gap [Moles/Vol] 12.3 mmol/L Normal [facility] Comment on above: Performed By: #### T 7, TSH, LIPID, CMP #### [facility] [address] [address] [address] Chucho Jesus AST [Catalytic activity/Vol] 13 U/L Critically low 15-37 [facility] Comment on above: Performed By: #### T 7, TSH, LIPID, CMP #### [facility] [address] [address] [address] Chucho Jesus Bilirubin [Mass/Vol] 0.4 mg/dL Normal 0.2-1.0 [facility] Comment on above: Performed By: #### T 7, TSH, LIPID, CMP #### [facility] [address] [place] [address] Dr. Chucho Jesus Calcium [Mass/Vol] 8.9 mg/dL Normal 8.5-10.[address] [facility] Comment on above: Performed By: #### T 7, TSH, LIPID, CMP #### [facility] [address] [place] [address] Dr. Chucho Jesus Chloride [Moles/Vol] 105 mmol/L Normal 98-107 [facility] Comment on above: Performed By: #### T 7, TSH, LIPID, CMP #### [facility] [address] [place] [address] Dr. Chucho Jesus CO2 [Moles/Vol] 26.6 mmol/L Normal 21.0-32.0 [facility] Comment on above: Performed By: #### T 7, TSH, LIPID, CMP #### [facility] [address] [place] [address] Dr. Chucho Jesus Creatinine [Mass/Vol] 0.68 mg/dL Normal 0.55-1.02 [facility] Comment on above: Performed By: #### T 7, TSH, LIPID, CMP #### [facility] [address] [place] [address] Dr. Chucho Jesus EGFR-AF FILIPINO >60 Normal >=60 [facility] Comment on above: Performed By: #### T 7, TSH, LIPID, CMP #### [facility] [address] [place] [address] Dr. Chucho Jesus EGFR-NON AF FILIPINO >60 Normal >=60 [facility] Comment on above: Performed By: #### T 7, TSH, LIPID, CMP #### [facility] [address] [place] [address] Dr. Chucho Jesus Globulin (S) [Mass/Vol] 4.3 g/dL Normal [facility] Comment on above: Performed By: #### T 7, TSH, LIPID, CMP #### [facility] [address] [address] [address] Chucho Jesus Glucose [Mass/Vol] 87 mg/dL Normal 74-106 [facility] Comment on above: Performed By: #### T 7, TSH, LIPID, CMP #### [facility] [address] [address] [address] Chucho Jesus Potassium [Moles/Vol] 3.9 mmol/L Normal 3.5-5.1 [facility] Comment on above: Performed By: #### T 7, TSH, LIPID, CMP #### [facility] [address] [address] [address] Chucho Jesus Protein [Mass/Vol] 8.0 g/dL Normal 6.4-8.2 [facility] Comment on above: Performed By: #### T 7, TSH, LIPID, CMP #### [facility] [address] [address] [address] Chucho Jesus Sodium [Moles/Vol] 140 mmol/L Normal 136-145 [facility] Comment on above: Performed By: #### T 7, TSH, LIPID, CMP #### [facility] [address] [address] [address] Chucho Jesus Urea nitrogen [Mass/Vol] 9.0 mg/dL Normal 7.0-18.0 [facility] Comment on above: Performed By: #### T 7, TSH, LIPID, CMP #### [facility] [address] [address] [address] Chucho Jesus Urea nitrogen/Creatinine [Mass ratio] 13.2 mg/mg Normal [facility] Comment on above: Performed By: #### T 7, TSH, LIPID, CMP #### [facility] [address] [address] [address] Chucho Jesus TSHon 04-24-2022 TSH 1.127 uIU/mL Normal 0.358-3.740 [facility] Comment on above: Performed By: #### T 7, TSH, LIPID, CMP #### [facility] [address] [address] [address] Chucho Jesus VITAMIN D 25 OHon 04-24-2022 VIT D 25-OH 35.2 ng/mL Normal [facility] Comment on above: Performed By: #### V ITAD, IRON #### [facility] [address] [address] [address] Chucho Jesus VIT D RANGES SEE BELOW Normal [facility] Comment on above: Result Comment: <20 ng/mL Vit D deficient 20 - <30 ng/mL Vit D insufficient 30 - 100 ng/mL Vit D sufficient >100 ng/mL Potential Toxicity Performed By: #### V ITAD, IRON #### [facility] [address] [address] [address] Chucho Jesus HCG ( test) Ql (U)O rdered By: James Churchill on 12-05-2020 Internal Control Pass [facility] Interpretation and review of laboratory results Normal [facility] POC , UrineOrdered By: James Churchill on 12-05-2020 HCG ( test) Ql (U) Negative Negative [facility] CTA CHEST WITH CONTRASTon CTA CHEST [...] by:Ady Tran MD/Edited Result - FINAL Normal [facility] Basic Metabolic Profon 02-19 (cont.) Normal [facility] Comment on above: Result Comment: Aver age GFR for 20-29 years old: 116 mL/min/1.73sq mChronic Kidney Disease: <60 mL/min/1.73sq mKidney failure: <15 mL/min/1.73sq meGFR calculated using average adult body mass. Additional eGFR calculator available at:http://[email or web address]_crcl_2012.htm Performed By: #### C DP, BMP, TROPI ####[address] [place] [address] Anion gap 14 mmol/L Normal - [facility] Comment on above: Performed By: #### C DP, BMP, TROPI ####[address] [place] [address] BUN/CRE Ratio 13 Normal - [facility] Comment on above: Performed By: #### C DP, BMP, TROPI ####[address] [place] [address] Calcium 9.2 mg/dL Normal 8.6-10.4 [facility] Comment on above: Performed By: #### C DP, BMP, TROPI ####[address] [place] [address] Chloride 105 mmol/L Normal 98-107 [facility] Comment on above: Performed By: #### C DP, BMP, TROPI ####[address] [place] [address] CO2 23 mmol/L Normal 20-31 [facility] Comment on above: Performed By: #### C DP, BMP, TROPI ####[address] [place] [address] Creatinine 0.55 mg/dL Normal 0.50-0.90 [facility] Comment on above: Performed By: #### C DP, BMP, TROPI ####[address] [place] [address] eGFR (non-black) mL/min/{1.73_m2} Normal >60 [facility] Comment on above: Performed By: #### C DP, BMP, TROPI ####[address] [place] [address] Glucose mass conc 96 mg/dL Normal 70-99 [facility] Comment on above: Performed By: #### C DP, BMP, TROPI ####[address] [place] [address] Potassium molar conc 3.6 mmol/L Low 3.7-5.3 [facility] Comment on above: Performed By: #### C DP, BMP, TROPI ####[address] [place] [address] Sodium 142 mmol/L Normal 135-144 [facility] Comment on above: Performed By: #### C DP, BMP, TROPI ####[address] [place] [address] Staging: Normal [facility] Comment on above: Result Comment: Stag e 1: Some kidney damage normal GFRStage 2: Mild kidney damage GFR 60-89Stage 3: Moderate kidney damage GFR 30-59Stage 4: Severe kidney damage GFR 15-29Stage 5: Severe kidney damage GFR <15ESRD - chronic treatment by dialysis or transplantPerformed at [address] [place] [address] Performed By: #### C DP, BMP, TROPI ####[address] [place] [address] Urea nitrogen 7 mg/dL Normal 6-20 [facility] Comment on above: Performed By: #### C DP, BMP, TROPI ####[address] [place] [address] CBC with Diffon 02-19-2017 Abs. Basophil 0.00 k/uL Normal 0.0-0.2 [facility] Comment on above: Result Comment: Perf ormed at [address] [place] [address] Performed By: #### C DP, BMP, TROPI ####[address] , [facility]83 Abs.Neutrophil (Seg) 7.10 k/uL Normal 1.8-8.0 [facility] Comment on above: Performed By: #### C DP, BMP, TROPI ####[address] [place] [address] Basophils/100 WBC Auto (Bld) 0 % Normal [facility] Comment on above: Performed By: #### C DP, BMP, TROPI ####[address] [place] [address] Eosinophils 0.30 10*3/uL Normal 0.0-0.4 [facility] Comment on above: Performed By: #### C DP, BMP, TROPI ####[address] , [facility]83 Eosinophils/100 leukocytes 3 % Normal [facility] Comment on above: Performed By: #### C DP, BMP, TROPI ####[address] [place] [address] Erythrocyte distribution width Auto Ratio (RBC) 13.6 % Normal 12.1-15.2 [facility] Comment on above: Performed By: #### C DP, BMP, TROPI ####[address] [place] [address] Erythrocytes (RBC) 5.03 10*6/uL Normal 4.0-5.2 [facility] Comment on above: Performed By: #### C DP, BMP, TROPI ####[address] [place] [address] Hematocrit (HCT) 40.2 % Normal 36-46 [facility] Comment on above: Performed By: #### C DP, BMP, TROPI ####[address] [place] [address] Hemoglobin mass conc (Bld) 13.2 g/dL Normal 12.0-16.0 [facility] Comment on above: Performed By: #### C DP, BMP, TROPI ####[address] [place] [address] Lymphocytes 2.90 10*3/uL Normal 1.2-5.2 [facility] Comment on above: Performed By: #### C DP, BMP, TROPI ####[address] [place] [address] Lymphocytes/100 leukocytes 27 % Normal [facility] Comment on above: Performed By: #### C DP, BMP, TROPI ####[address] [place] [address] MCH 26.2 pg Normal 26-34 [facility] Comment on above: Performed By: #### C DP, BMP, TROPI ####[address] [place] [address] MCHC mass conc (RBC) 32.8 g/dL Normal 31-37 [facility] Comment on above: Performed By: #### C DP, BMP, TROPI ####[address] [place] [address] MCV 79.9 fL Low 80-100 [facility] Comment on above: Performed By: #### C DP, BMP, TROPI ####[address] [place] [address] Monocytes 0.60 10*3/uL Normal 0.0-1.0 [facility] Comment on above: Performed By: #### C DP, BMP, TROPI ####[address] [place] [address] Monocytes/100 leukocytes 5 % Normal [facility] Comment on above: Performed By: #### C DP, BMP, TROPI ####[address] [place] [address] Neutrophil (Seg) 65 % Normal [facility] Comment on above: Performed By: #### C DP, BMP, TROPI ####[address] [place] [id number] Platelet mean volume (PMV) 9.6 fL Normal 6.0-12.0 [facility] Comment on above: Performed By: #### C DP, BMP, TROPI ####[address] [place] [address] Platelets 278 10*3/uL Normal 140-450 [facility] Comment on above: Performed By: #### C DP, BMP, TROPI ####[address] [place] [address] WBC (Leukocytes) 10.8 10*3/uL Normal 4.5-13.5 [facility] Comment on above: Performed By: #### C DP, BMP, TROPI ####[address] [place] [address] Auto Diff Performed NOT REPORTED Normal [facility] Comment on above: Performed By: #### C DP, BMP, TROPI ####[address] [place] [id number] Erythrocyte morphology NOT REPORTED Normal [facility] Comment on above: Performed By: #### C DP, BMP, TROPI ####[address] [place] [address] Platelets NOT REPORTED Normal [facility] Comment on above: Performed By: #### C DP, BMP, TROPI ####[address] [place] [address] WBC Morphology NOT REPORTED Normal [facility] Comment on above: Performed By: #### C DP, BMP, TROPI ####[address] [place] [address] ED Noteon 02-19-2017 HIM IP Note OR [employer] Sales Person Normal [facility] ED Provider Noteon 7 HIM IP Note OR [employer] Counter Sales Person Normal [facility] Troponinon 02-19-2017 Troponin T.cardiac mass conc ug/L Normal <0.03 [facility] Comment on above: Result Comment: Trop onin T results cannot be compared to Troponin-I results. Performed By: #### C DP, BMP, TROPI ####[address] [place] [address] Troponin I.cardiac mass conc Normal [facility] Comment on above: Result Comment: Refe rence Range: <0.03 Within reference range. 0.03-0.09 Possible myocardial damage.Repeat at appropriate intervals to rule out chronic elevation. >= 0.10 Indicative of myocardial damage.Performed at [address] [place] [address] Performed By: #### C DP, BMP, TROPI ####[address] [place] [address] Vital Signs Date Time Vital Sign Value Performing Clinician Facility 06-07-2024 13:49-0500 Body mass index (BMI) [Ratio] 34.61 kg/m2 Katelyn LuisUni-Control Phone: [facility] 06-07-2024 13:49-0500 Body weight 94.35 kg Katelyn Luis DO Work Phone: [facility] 06-07-2024 13:49-0500 Diastolic blood pressure 70 mm[Hg] Katelyn Luis DO Work Phone: [facility] 06-07-2024 13:49-0500 Systolic blood pressure 120 mm[Hg] Katelyn Luis DO Work Phone: [facility] 05-09-2024 11:44-0500 Body mass index (BMI) [Ratio] 33.28 kg/m2 Katelyn Luis DO Work Phone: [facility] 05-09-2024 11:44-0500 Body weight 90.72 kg Katelyn Luis DO Work Phone: [facility] 05-09-2024 11:44-0500 Diastolic blood pressure 64 mm[Hg] Katelyn Luis DO Work Phone: [facility] 05-09-2024 11:44-0500 Systolic blood pressure 118 mm[Hg] Katelyn Luis DO Work Phone: [facility] 04-11-2024 10:37-0400 Body mass index (BMI) [Ratio] 31.12 kg/m2 Little LOWRY Work Phone: [facility] 04-11-2024 10:37-0400 Body weight 84.82 kg Little LOWRY Work Phone: [facility] 04-11-2024 10:37-0400 Diastolic blood pressure 68 mm[Hg] Little LOWRY Work Phone: [facility] 04-11-2024 10:37-0400 Systolic blood pressure 116 mm[Hg] Little LOWRY Work Phone: [facility] 02-27-2023 14:39-0400 Blood Pressure Location Gary MORRIS [facility] 02-27-2023 14:39-0400 Diastolic blood pressure 66 mm[Hg] Gary MORRIS [facility] 02-27-2023 14:39-0400 Heart rate 70 /min Gary MORRIS [facility] 02-27-2023 14:39-0400 Respiratory rate 16 /min Gary DANGELOL [facility] 02-27-2023 14:39-0400 Systolic blood pressure 106 mm[Hg] Gary MORRIS [facility] 01-08-2022 08:09-0400 Body temperature 98.01 [degF] Queta Rice DO Work Phone: [employer] 01-08-2022 08:09-0400 Body weight 75.75 kg Queta Rice DO Work Phone: [employer] 01-08-2022 08:09-0400 Diastolic blood pressure 71 mm[Hg] Queta Rice DO Work Phone: [employer] 01-08-2022 08:09-0400 Heart rate 98 /min Queta Rice DO Work Phone: [employer] 01-08-2022 08:09-0400 Systolic blood pressure 112 mm[Hg] Queta Rice DO Work Phone: [employer] 12-10-2021 14:45-0400 Body height 166.37 cm Bret Long Other [employer] Other 12-10-2021 14:45-0400 Body mass index (BMI) [Ratio] 26.55 kg/m2 Bret Long Other [employer] Other 12-10-2021 14:45-0400 Body weight 73.48 kg Bret Long Other [employer] Other 12-10-2021 14:45-0400 Diastolic blood pressure 72 mm[Hg] Bret Long Other [employer] Other 12-10-2021 14:45-0400 Systolic blood pressure 103 mm[Hg] Bret Long Other [employer] Other 11-27-2021 14:01-0400 Body temperature 98.4 [degF] Queta Rice DO Work Phone: [employer] 11-27-2021 14:01-0400 Body weight 74.84 kg Queta Rice DO Work Phone: [employer] 11-27-2021 14:01-0400 Diastolic blood pressure 64 mm[Hg] Queta Rice DO Work Phone: [employer] 11-27-2021 14:01-0400 Heart rate 98 /min Queta Rice DO Work Phone: [employer] 11-27-2021 14:01-0400 Systolic blood pressure 121 mm[Hg] Queta Rice DO Work Phone: [facility] 12-05-2020 19:26-0400 Heart rate 106 /min James Breece PA-C Work Phone: [facility] 12-05-2020 19:25-0400 Body temperature 98.29 [degF] James Breece PA-C Work Phone: [facility] 12-05-2020 19:25-0400 Body weight 97.98 kg James Breece PA-C Work Phone: [facility] 12-05-2020 19:25-0400 Diastolic blood pressure 86 mm[Hg] James Breece PA-C Work Phone: [facility] 12-05-2020 19:25-0400 Respiratory rate 16 /min James Breece PA-C Work Phone: [facility] 12-05-2020 19:25-0400 SaO2% (BldA) [Mass fraction] 97 % James Breece PA-C Work Phone: [facility] 12-05-2020 19:25-0400 Systolic blood pressure 126 mm[Hg] James Churchill PA-C Work Phone: [facility] Encounters Encounter Date Encounter Type Care [...] 04-11-2024 Bamboo flowsheet Little LOWRY Work Phone: [facility] Start: 04-11-2024 End: 04-11-2024 Bamboo flowsheet Little LOWRY Work Phone: [facility] Start: 04-11-2024 End: 04-11-2024 Office outpatient visit 15 minutes Little LOWRY Work Phone: [facility] Comment on above: Second trimester [...] Nill/Chris Kang Start: 02-23-2023 ambulatory Alexandr Bourgeois Facility:[facility] Start: 02-05-2023 ambulatory Gary MORRIS Facility:[facility] [...] . Facility:[facility] Start: 02-18-2022 ambulatory QUETA QUETA M~[id number] [facility] Start: 02-12-2022 ambulatory QUETA QUETA M~[id number] [facility] Start: 02-12-2022 End: 02-12-2022 Telemedicine consultation with patient Queta M Rice DO Work Phone: [facility] Comment on above: Anxiety (Primary Dx) Start: 01-19-2022 Refill Luis Dipalma D O Work Phone: [facility] Start: 01-19-2022 Refill Luis Dipalma D O Work Phone: [facility] Start: 01-08-2022 End: 01-08-2022 ambulatory QUETANigel HARPERE M~[id number] [facility] Start: 01-08-2022 End: 01-08-2022 Office outpatient visit 25 minutes Queta M Rice DO Work Phone: [facility] Comment on above: Anxiety (Primary Dx) ; Hypotension, unspecified hypotension type Start: 01-08-2022 End: 01-08-2022 Patient encounter procedure Queta M Rice DO Work Phone: [facility] Start: 12-11-2021 End: 12-11-2021 ambulatory QUETANigel HARPERE M~[id number] [facility] Start: 12-10-2021 End: 12-10-2021 ambulatory Bret Long Other [facility] [employer] Other Start: 12-10-2021 Office outpatient ne w 45 minutes Bret [facility] Start: 11-27-2021 End: 11-27-2021 ambulatory QUETA Huffman~[id number] RICE RICE [facility] Start: 11-27-2021 End: 11-27-2021 Office outpatient new 30 minutes Queta Osorio DO Work Phone: [facility] Comment on above: Anxiety (Primary Dx) Start: 11-27-2021 End: 11-27-2021 Patient encounter procedure Queta Osorio DO Work Phone: [facility] Start: 11-25-2021 Telephone encounter Dana Kinsey [facility] Start: 12-05-2020 End: 12-05-2020 ambulatory PHYSICIAN NO [facility] Start: 12-05-2020 End: 12-05-2020 Office outpatient new 20 minutes James Churchill PA-C Work Phone: [facility] [place] Comment on above: Vaginal sore (Primar y Dx) Start: 02-19-2017 End: 02-19-2017 Emergency department patient visit [facility] Procedures Date Procedure Procedure Detail Performing [...] [facility] [address] [place] [phone] Little Christie PA [address] [place] [address] [facility] Start: 05-24-2024 End: 05-24-2024 Patient encounter procedure 05/24/2024 2:10 PM EST Routine [facility] [address] [place] [phone] Little Christie PA [address] [place] [address] Arrived [facility] Comment on above: Arrived Start: 05-23-2024 End: 05-23-2024 Patient encounter procedure 05/23/2024 1:50 PM EST Routine [facility] [address] [place] [phone] Little Christie PA [address] [place] [address] [facility] Start: 05-09-2024 End: 05-09-2025 US biophysical profile w non stress test US biophysical profile w non stress test Imaging Routine Second trimester 26 weeks gestation of History of miscarriage Expected: 05/09/2024 (Approximate), Expires: 05/09/2025 [facility] Work Phone: Comment on above: Expected: 05/09/2024 (Approximate), Expires: 05/09/2025 Start: 05-09-2024 End: 05-09-2025 US for [facility] Comment on above: Expected: 05/09/2024 (Approximate), Expires: 05/09/2025 Start: 05-09-2024 End: 05-09-2024 Patient encounter procedure [facility] Comment on above: Arrived Start: 04-11-2024 End: 04-11-2025 CBC panel - Blood by Automated count CBC Lab Routine Diabetes mellitus screening Expected: 04/11/2024 (Approximate), Expires: 04/11/2025 [facility] Work Phone: Comment on above: Expected: 04/11/2024 (Approximate), Expires: 04/11/2025 Start: 04-11-2024 End: 04-11-2025 Measurement of glucose 1 hour after glucose challenge for glucose tolerance test Glucose tolerance, 1 hour Lab Routine Diabetes mellitus screening Expected: 04/11/2024 (Approximate), Expires: 04/11/2025 [facility] Comment on above: Expected: 04/11/2024 (Approximate), Expires: 04/11/2025 Start: 04-11-2024 End: 04-11-2024 Patient encounter procedure 04/11/2024 10:30 AM EDT Routine [facility] [address] [place] [phone] Little Christie PA [address] [facility] [address] Arrived [facility] Comment on above: Arrived Start: 03-06-2024 Influenza vaccination Influenza Vacc ine (#1) [facility] Start: 11-27-2022 Adolescent depressio n screening assessment Depression Screening [facility] Start: 03-06-2022 Influenza vaccination T [facility] Start: 02-07-2022 End: 02-07-2022 Patient encounter procedure 02/07/2022 Office Visit Family Medicine Queta Osorio, [address] [place] [phone] [facility] Start: 12-19-2021 End: 12-19-2021 Patient encounter procedure 12/19/2021 Office Visit Family Medicine Queta Osorio DO [address] [place] [phone] [facility] Start: 12-07-2021 COVID-19 Vaccine (3 - Booster for Moderna series) COVID-19 Vaccine (3 - Booster for Moderna series) [facility] Start: 11-27-2021 End: 11-27-2021 Patient encounter procedure 11/27/2021 Office Visit Family Medicine Queta Osorio DO [address] [place] [phone] [facility] Start: 11-24-2021 Adolescent depressio n screening assessment Depression Screening [facility] Start: 11-24-2021 Hepatitis C screening Hepatitis C Sc [facility] Start: 11-24-2021 HIV screening HIV Screening [facility] Start: 11-24-2021 Social Influencers o f Health Screening Social Influencers of Health Screening [facility] Start: 03-06-2021 Influenza vaccination Sequenti al Influenza Vaccine (Season Ended) [facility] Start: 2017 Screening for malign ant neoplasm of cervix Cervical Cancer Screening: Pap Smear [facility] Start: 2015 DTaP,Tdap,and Td Vac cines (1 - Tdap) DTaP,Tdap,and Td Vaccines (1 - Tdap) [facility] Start: 2014 Hepatitis C screening Hepatitis C Sc reening [facility] Start: 2011 HIV screening HIV Screening [facility] Start: 2008 COVID-19 Vaccine (1) COVID-19 Vaccin e (1) [facility] Start: 2008 Depression screening using PHQ-9 (Patient Health Questionnaire 9) score Depression Screening (PHQ9) [facility] Start: 2007 HPV Vaccines (1 - 2- dose series) HPV Vaccines (1 - 2-dose series) [facility] Start: 2007 Vaccination for april n papillomavirus HPV Vaccines (1 - 2-dose series) [facility] Start: 2001 COVID-19 Vaccine (1) COVID-19 Vaccin e (1) [facility] Start: 1999 History and physical examination, annual for health maintenance Wellness Visit [facility] Start: 1996 Screening for Chlamy marilee trachomatis Chlamydia Screening [facility] Start: 1996 Screening for malign ant neoplasm of cervix Pap Smear [facility] Start: 1996 Tetanus vaccination Tetanus: Every 1 0yrs [facility] Chlamydia trachomati s rRNA assay Chlamydia/GC/Trichomon as Amplified RNA Microbiology Routine Vaginal sore Ordered: 12/05/2020 [facility] Comment on above: Ordered: 12/05/2020 HSV by PCR Superfici al Site HSV by PCR Superficial Site Lab Routine Vaginal sore Ordered: 12/05/2020 [facility] Comment on above: Ordered: 12/05/2020 Neisseria gonorrhoea e nucleic acid detection Chlamydia/Gonorrhoeae Amplified RNA Microbiology Routine Vaginal sore Ordered: 12/05/2020 [facility] Comment on above: Ordered: 12/05/2020 Trichomonas vaginali s Amplified RNA Trichomonas vaginalis Amplified RNA Microbiology Routine Vaginal sore Ordered: 12/05/2020 [facility] Comment on above: Ordered: 12/05/2020 Immunizations Immunization Date Immunization Notes Care Provider Bj mcintosh 07-09-2021 SARS-CoV-2 (COVID-19 ) mRNA-1273 vaccine Gary MORRIS [facility] 06-08-2021 SARS-CoV-2 (COVID-19 ) mRNA-1273 vaccine Gary MORRIS [facility] 04-10-2011 influenza virus vaccine, unspecified formulation Little LOWRY Work Phone: [facility] Payers Date Payer Category Payer Private Health Insurance [facility]ICA[facility] [id number] 2021 Medicaid [id number] 2020 Medicaid [id number]. [id number] 2016 Unknown [id number] 2013 Unknown [id number] 1996 Unknown [id number] 2.16.840.1.533073.3.579.2. 903 1996 Unknown [id number] 2.16.840.1.377853.3.579.2. 1143 1996 Unknown [id number] 2.16.840.1.624698.3.579.2. 114 1996 Unknown [id number] 2.16.840.1.971560.3.579.2. 1143 1996 Unknown [id number] 2.16.840.1.825460.3.579.2. 114 1996 Unknown [id number] 2.16.840.1.620965.3.579.2. 114 1996 Unknown [id number] 2.16.840.1.562778.3.579.2. 593 1996 Unknown [id number] 2.16.840.1.288705.3.579.2. 593 1996 Unknown [id number] 2.16.840.1.124578.3.579.2. 593 1996 Unknown [id number] 2.16.840.1.075230.3.579.2. 593 1996 Unknown [id number] 2.16.840.1.050313.3.579.2. 593 1996 Unknown [id number] 2.16.840.1.345498.3.579.2. 593 1996 Unknown [id number] 2.16.840.1.863351.3.579.2. 593 1996 Unknown [id number] 2.16.840.1.779243.3.579.2. 727 1996 Unknown [id number] 2.16.840.1.169503.3.579.2. 128 1996 Unknown [id number] 2.16.840.1.268987.3.579.2. 128 1996 Unknown [id number] 2.16.840.1.137689.3.579.2. 1258 1996 Unknown [id number] 2.16.840.1.095702.3.579.2. 1258 1996 Unknown [id number] 2.16.840.1.006475.3.579.2. 1258 1996 Unknown [id number] 2.16.840.1.592937.3.579.2. 125 1996 Unknown [id number] 2.16.840.1.006426.3.579.2. 1258 1996 Unknown [id number] 2.16.840.1.141445.3.579.2. 1258 1996 Unknown [id number] 2.16.840.1.777114.3.579.2. 1258 1996 Unknown [id number] 2.16.840.1.805033.3.579.2. 1258 1996 Unknown [id number] 2.16.840.1.536000.3.579.2. 1258 1960 Unknown [id number] 2.16.840.1.172447.3.579.2. 727 1959 Medicaid [id number] 1959 Self-pay 1959 Unknown [id number] 1959 Unknown [id number] 1959 Unknown [id number] Unknown [id number] 2.16.840.1.956595.3.579.2. 531 Social History Date Type Detail Facility Start: 12-05-2020 End: 02-27-2023 Tobacco smoking status NHIS Never smoker [facility] Start: 12-05-2020 End: 11-27-2021 Tobacco use and exposure Never used [facility] Start: 12-05-2020 Alcohol intake Current drinke r of alcohol (finding) [facility] Start: 12-05-2020 End: 11-27-2021 History SDOH Alcohol Frequency 1 [facility] Start: 12-05-2020 Alcohol Comment occ [facility] Start: 1996 [facility] Start: 11-17-2021 End: 02-12-2022 Exposure to SARS-CoV-2 (event) Not sure [facility] Tobacco smoking stat [facility] Tobacco smoking consumption unknown [facility] Start: 11-27-2021 End: 05-24-2024 Alcohol intake Lifetime non-drinker (finding) [facility] Start: 1995 Sex Assigned At Female [facility] Start: 12-17-2023 Sex Assigned At F [facility] Tobacco smoking status Never [facility] Start: 03-28-2023 Tobacco smoking stat [facility] Ex-smoker [facility] History of tobacco use Current smoker [facility] History of tobacco use Cigarette Smoker [facility] Start: 12-17-2023 History of Social function [facility] Start: 11-17-2023 [facility] Start: 01-19-2023 Gender identity Identifies as female gender (finding) [facility] Functional Status Date Assessment Result Facility 02-27-2023 Functional Status N/A [facility] [place] [facility] Clinical Notes 12-05-2020 to 06-07-2024 Mae [...] nursing note reviewed. Exam conducted with a hand stripper present. Vitals: Estimated body mass index is [...] nursing note reviewed. Exam conducted with a hand stripper present. Vitals: Estimated body mass index is [...] Katelyn Smith DO documented in this encounter [facility] 04-11-2024 History of Present illness Narrative [...] of: ESSENCE Haley documented in this encounter [facility] 02-27-2023 Note Chief Complaint consultation for [...] with excisional biopsy under local anesthesia at [facility]; call with problems/questions. Follow-up No qualifying [...] Recorded SARS-CoV-2 (COVID-19) mRNA-1273 vaccine 06/08/2021 Recorded [facility] Comment on above: Result Comment: Elec [...] at later date. documented in this encounter [facility] 01-08-2022 History of Present illness Narrative [...] due to buspirone. documented in this encounter [facility] 12-10-2021 Evaluation note Encounter Date Diagnosis Assessment Notes Dec, Irritable bowel syndrome with diarrhea (ICD-10 - K58.0) Continue medications without change Dec, Epigastric pain (ICD-10 - R10.13) Dec, Chronic nausea (ICD-10 - R11.0) Dec, Family history of carcinoma in situ of anal canal (ICD-10 - Z84.89) Dec, Other Continue Zofran prn Pt to call if symptoms worsen [employer] Other 05-25-2022 History of Present illness Narrative* Queta Osorio DO - 11/27/2021 2:00 PM EDT Subjective Patient ID: Leslie Ford is a 26 y.o. female. Chief Complaint Patient presents with [facility] 26 y.o. female presents to [facility]. History of anxiety and [...] it ( July 2017) documented [facility] [id number] History of Present illness Narrative* Dana Rosario [...] like me to do? documented in this encounterSaint [facility] [id number] History of Present illness Narrative* James Churchill PA-C - 12/05/2020 8:22 PM EDT Images from the original note were not included. Patient Name: [facility] Location: [place] [facility] [phone] Date Of : Date Of Visit: 1995 12/05/2020 MRN# Provider: [id number] James Churchill PA-C Chief Complaint Patient presents [...] urine from irritatingthe sores. ? Take an vift-vtu-pdixpfi pain medicine, such as acetaminophen (Tylenol), ibuprofen [...] Log into your personal health record on [email or web address] and enter [email or web address] in the Education box to learn more about Genital Herpes: Care Instructions. Current as of: August 31, 2019 Content Version: 12.8 [employer]. Care instructions adapted under license by your healthcare professional. If you have questions about a medical condition or this instruction, always ask your healthcare professional. [employer] disclaims any warranty or liability for your use of this information. documented in this [id number] Instructions* Patient Instructions* James Churchill PA-C - [...] urine from irritatingthe sores. ? Take an ukpg-ewd-fjwbdhy pain medicine, such as acetaminophen (Tylenol), ibuprofen [...] Log into your personal health record on [email or web address] and enter [email or web address] in the Education box to learn more about Genital Herpes: Care Instructions. Current as of: August 31, 2019 Content Version: 12.8 [employer]. Care instructions adapted under license by your healthcare professional. If you have questions about a medical condition or this instruction, always ask your healthcare professional. [employer] disclaims any warranty or liability for your use of this information. [facility] No data available for this section [facility] Evaluation note* Diagnosis Vaginal sore- Primary documented in this encounter [facility] note* Diagnosis Anxiety- Primary Anxiety state, unspecified [facility] Diagnosis Anxiety- Primary Anxiety state, unspecified Hypotension, unspecified hypotension type documented in this encounter [facility] note* Diagnosis Anxiety- Primary Anxiety state, unspecified documented in this encounter [facility] note* Diagnosis Second trimester state, incidental [...] Reported* Type Description Date Medical History IBS [employer] Other Hospital Discharge instructions No data available for this section [facility] Progress note No data available for this section [facility] Summary Purpose Family History No Family History Records FoundNo Family History Records FoundNo Family History Records FoundNo Family History Records FoundNo Family History Records FoundNo Family History Records FoundNo Family History Records FoundNo Family History Records FoundNo Family History Records Found Advance Directives Documents on File Type Date Recorded Patient [employer]er Expl anation Advance Directives and Living Will Documents on File Type Date Recorded Patient [employer]er Expl anation Power of Emotional Support Teacher Additional Source Comments INFORMATION SOURCE (unrecogn ized section and content) DATE CREATED AUTHOR 12/30/2017 [facility] DATE CREATED AUTHOR AUTHOR'S ORGANIZ ATION 12/06/2020 [facility] DATE CREATED AUTHOR AUTHOR'S ORGANIZ ATION 02/16/2022 [facility] DATE CREATED AUTHOR AUTHOR'S ORGANIZ ATION 02/27/2022 [facility] DATE CREATED AUTHOR AUTHOR'S ORGANIZ ATION 11/14/2022 [facility] DATE CREATED AUTHOR AUTHOR'S ORGANIZ ATION 03/02/2023 [facility] DATE CREATED AUTHOR AUTHOR'S ORGANIZ ATION 07/05/2023 [facility] DATE CREATED AUTHOR AUTHOR'S ORGANIZ ATION 03/25/2024 [facility] DATE CREATED AUTHOR AUTHOR'S ORGANIZ ATION 06/09/2024 [facility] dical Specialists EPIC Reason for Visit [...] Care Teams (unrecognized sec tion and content) Tobacco Roller Relationship Specialty Start Date End Date Lalito Osoriojuana Huffman DO [address] [place] [phone] PCP - General Family Medicine 11/27/21 Tobacco Roller Relationship Specialty Start Date End Date DevonLalitoQueta DO Nathanael [address] [place] [phone] PCP - General Family Medicine 11/27/21 Tobacco Roller Relationship Specialty Start Date End Date Queta Osorio [address] [place] [phone] PCP - General Family Medicine 11/27/21 Tobacco Roller Relationship Specialty Start Date End Date Homar Beltran MD [address] [place] [phone] PCP - General Family Medicine 01/20/23 Tobacco Roller Relationship Specialty Start Date End Date Homar Beltran MD [address] [facility] [place] [address] PCP - General Family Medicine 01/20/23 Tobacco Roller Relationship Specialty Start Date End Date Homar Beltran MD [address] [place] [address] PCP - General Family Medicine 01/20/23 Tobacco Roller Relationship Specialty Start Date End Date Homar Beltran MD [address] [place] [facility] [address] PCP - General Family Medicine 01/20/23 Tobacco Roller Relationship Specialty Start Date End Date Homar Beltran MD [address] [place] [facility] [address] PCP - General Family Medicine 01/20/23 Tobacco Roller Relationship Specialty Start Date End Date Homar Beltran MD [address] [place] [facility] [address] PCP - General Family Medicine 01/20/23 Tobacco Roller Relationship Specialty Start Date End Date Homar Beltran MD [address] [place] [facility] [address] PCP - General Family Medicine 01/20/23 FOR [...] BE BASED ON THE PRIMARY CLINICAL RECORDS. [facility] provides no warranty or guarantee of the accuracy or completeness of information in this document.
[2024-06-20 09:03] VITALS: BP 126/75; PULSE 103
== END 2024-06-20 09:25 | disposition home or self-care (01) ==
LOC: FBCO 06:09 → FBC 08:58
PROVIDERS: PCP Family Medicine; Visit Provider Obstetrics & Gynecology
DX: O26.893 Other specified pregnancy related conditions, third trimester (principal)
CPT/HCPCS: 59025

== ENCOUNTER 2024-06-24 05:00 | Outpatient (OUT) | payer OTHER, SELFPAY ==
--- NOTE | 2024-06-24 | US_ITS ---
[address] [address] Patient Name: KISHAN RAMSEY MRN: [id number] date: 1995 Sex: F Assigned Patient Location: [facility] [place] [facility] [place]Order Number: [id number] Exam Date: 06/24/2024 07:20 Report Date: 06/24/2024 08:18 At the request of: KATELYN DUVALL Procedure: US OB amniotic fluid vol EXAMINATION: US OB amniotic fluid vol HISTORY: History of miscarriage Z87.59 COMPARISON: No relevant comparison available. FINDINGS: Amniotic fluid index: 15.0 cm Heart rate: 131 beats minute Cephalic presentation Clinical age: 33 weeks 3 days Clinical SANCHO: 08/09/2024 US/US OB amniotic fluid vol IMPRESSION: Normal amniotic fluid index Electronically authenticated by: AKUA MELENDEZ Date: 06/24/2024 08:18
--- NOTE | 2024-06-24 | US_ITS ---
[address] [address] Patient Name: KISHAN RAMSEY MRN: [id number] date: 1995 Sex: F Assigned Patient Location: [facility] Current Patient Location: [facility] [place] Accession/Order Number: [id number] Exam Date: 06/24/2024 07:20 Report Date: 06/24/2024 08:17 At the request of: KATELYN DUVALL Procedure: US OB BPP w non-stress EXAMINATION: US OB BPP w non-stress HISTORY: History of miscarriage Z87.59 COMPARISON: No relevant comparison available. TECHNIQUE: Ultrasound biophysical profile was performed in the radiology department. non-reactive stress testing was performed by nursing staff in the birthing center. FINDINGS: BREATHING MOVEMENTS: 2 GROSS BODY MOVEMENTS: 2 TONE: 2 QUALITATIVE AMNIOTIC FLUID VOLUME: 2 PRESENTATION: CEPHALIC HEART RATE: 131.07 bpm AMNIOTIC FLUID VOLUME: 15.0 cm GESTATIONAL AGE: 33 weeks 3 days US/US OB BPP w non-stress IMPRESSION: Total biophysical profile score: 8 Electronically authenticated by: AKUA MELENDEZ Date: 06/24/2024 08:17
--- OUTSIDE RECORDS SUMMARY | 2024-06-24 05:03 | XMS_ITS | CCD ---
Author Organization [facility] Care Team Providers Care Color Making Supervisor Name Role Phone KIM SUTHERLAND Unavailable Unavailable WILLY CONKLIN Unavailable Unavailable HOMAR BELTRAN Unavailable Unavailable HOMAR BELTRAN Unavailable Unavailable No, Physician Primary Care Provider Unavailsuman e FINN, PHYSICIAN Primary Care Unavailable JAMES ALCAZAR Attending Unavailable Unavailable Primary Care Provider Unavailsuman e Wiley Osorio DO Primary Care Provider [phone] Bret Long Unavailable RICE RICE, WILEY WILEY M~[id number] Attending Unavailable RICE RICE, IWLEY WILEY M~[id number] Primary Ca re Unavailable RICE RICE, WILEY WILEY M~[id number] Attending Unavailable RICE RICE, WILEY WILEY M~[id number] Primary Ca re Unavailable RICE RICE, WILEY WILEY M~[id number] Attending Unavailable RICE RICE, WILEY WILEY M~[id number] Primary Ca re Unavailable RICE RICE, WILEY WILEY M~[id number] Attending Unavailable RICE RICE, WILEY WILEY M~[id number] Primary Ca re Unavailable RICE RICE, WILEY WILEY M~[id number] Referring Unavailable RICE RICE, WILEY WILEY M~[id number] Primary Ca re Unavailable ITA REYES Admitting [...] Care Unavailable SENAIT MARTIN Attending Unavailable LUIS, BERTO Dante Referring Unavailable HOMAR BELTRAN Primary Care Unavailable Homar Beltran MD Primary Care Provider [phone] LITTLE CHRISTIE Attending Unavailable LUIS, BERTO Attending Unavailable SHAHNAZ, LITTLE Attending Unavailable LUIS, BERTO Attending Unavailable SHAHNAZ, LITTLE Attending Unavailable LUIS, BERTO Attending Unavailable SHAHNAZ LITTLE Attending Unavailable KELIN SMITHY Attending Unavailable Allergies Allergy Classification Reported Allergen(s) Allergy Type Date of Onset Reaction(s) Facility (1 source) No Known Medication Allergies; Translations: [No Known Medication Allergies] Propensity to adverse reactions (disorder) [facility] Repository Medications Current Medications Medication Drug Class(es) Dates Sig (Normalized) Sig (Original) aspirin 81 mg delayed release oral tablet (14 sources) Platelet Aggregation Inhibitor, Nonsteroidal Anti-inflammatory Drug [...] omeprazole 20 mg delayed release oral capsule (20 sources) Proton Pump Inhibitor Start: 12-31-2023 End: 10-05-2024 take 1 capsule by mouth before mealtime omeprazole (PriLOSEC) [address] capsule Indications: Gastroesophageal Reflux Disease , Heartburn Take 1 capsule (20 mg) by mouth in the morning. Take before meals. Do not crush or chew.. 30 capsule 3 06/07/2024 10/05/2024 Active ondansetron 4 mg oral tablet (20 sources) Serotonin-3 Receptor Antagonist Start: 02-27-2023 Zofran [...] Vit-Fe Fumarate-FA ( Plus/Iron) 27-1 MG tablet (18 sources) Start: 12-17-2023 End: 12-16-2024 take 1 tablet by mouth once daily Vit-Fe Fumarate-FA ( Plus/Iron) 27-1 MG tablet Indications: care, antepartum Take 1 tablet by mouth Daily 30 tablet 11 12/17/2023 12/16/2024 Active promethazine hydrochloride 12.5 mg oral tablet (3 sources) Phenothiazine Start: 12-29-2023 End: 03-28-2024 take 1 tablet by mouth every six hours as needed for nausea and nausea, then take 1 tablet by mouth every six hours as needed for nausea and nausea promethazine (Phenergan) 12.5 MG tablet Indications: Nausea and vomiting in Take 1 tablet (12.5 mg) by mouth every 6 (six) hours if needed for nausea or vomiting Take 1 tablet by mouth every 6 hours as needed for nausea. 30 tablet 2 12/29/2023 03/28/2024 Active sertraline 25 mg oral tablet (3 [...] Sig (Original) azithromycin 250 mg oral tablet (5 sources) Macrolide Antimicrobial Start: 05-24-2024 End: 06-07-2024 [...] 02-27-2023 Episodic Other and delivery including normal (12 sources) Second trimester ; Translations: [Encounter for supervision of normal , unspecified, second trimester] 04-11-2024 Episodic Other screening for suspected conditions (not mental disorders or infectious disease) (4 sources) Encounter for other specified screening; Translations: [Encounter for screening for cervical length] Onset: 4 04-11-2024 Episodic Other upper respiratory infections (7 sources) Acute recurrent frontal sinusitis; Translations: [Upper respiratory infection] Onset: 2 Episodic Residual codes; unclassified (1 source) Chronic pain 02-23-2023 Episodic Residual codes; unclassified (1 source) Insomnia 02-23-2023 Episodic Residual codes; unclassified (1 source) 20 weeks gestation of ; Translations: [20 weeks gestation of ] Onset: 4 Episodic Residual codes; unclassified (2 sources) Gestation period, 22 weeks; Translations: [22 weeks gestation of ] 04-11-2024 Episodic Residual codes; unclassified (13 sources) Gestation period, 26 weeks; Translations: [26 weeks gestation of ] Onset: 4 05-09-2024 Episodic Residual codes; unclassified (13 sources) H/O: miscarriage; Translations: [Personal history of other complications of , childbirth and the puerperium] Onset: 4 05-09-2024 Episodic Residual codes; unclassified (2 sources) Gestation period, 31 weeks; Translations: [31 weeks gestation of ] 06-07-2024 Episodic Residual codes; unclassified (2 sources) Gestation period, 33 weeks; Translations: [33 weeks gestation of ] 06-21-2024 Episodic Residual codes; unclassified (2 sources) Gestation period, 29 weeks; Translations: [29 weeks gestation of ] 05-24-2024 Episodic Spondylosis; intervertebral disc disorders; other back [...] Range Facility Urinalysis macro (dipstick) panel (U)on 06-21-2024 Bilirubin, UA Negative Negative - 4(70) +++ mg/dL [facility] Blood, UA Negative Negative - 50 Angel Luis/mcL [facility] Clarity, UA Clear [facility] Color, UA Yellow [facility] Glucose, UA Negative Negative - 1999(110) ++++ mg/dL [facility] Interpretation and review of laboratory results Abnormal [facility] Ketones, UA Negative Negative - 160(16) ++++ mg/dL [facility] Leukocytes, UA Negative Negative - 500+++ Derw/mcL [facility] Nitrite, UA Negative Negative - Positive [facility] pH, UA 7 5 - 9 [facility] Protein, UA Positive Negative - 2000(20) ++++ mg/dL [facility] Comment on above: 30 Spec Grav, UA 1.02 1 - 1.03 [facility] Urobilinogen, UA 0.2 0.2 - 12 mg/dL [facility] Urinalysis macro (dipstick) panel (U)on 06-07-2024 Bilirubin, UA Negative Negative - 4(70) +++ mg/dL [facility] Blood, UA Negative Negative - 50 Angel Luis/mcL [facility] Clarity, UA Clear [facility] Color, UA Yellow [facility] Glucose, UA Negative Negative - 2000(110) ++++ mg/dL [facility] Interpretation and review of laboratory results Normal [facility] Ketones, UA Negative Negative - 160(16) ++++ mg/dL [facility] Leukocytes, UA Negative Negative - 500+++ Drew/mcL [facility] Nitrite, UA Negative Negative - Positive [facility] pH, UA 7 5 - 9 [facility] Protein, UA Negative Negative - 1999(20) ++++ mg/dL [facility] Spec Grav, UA 1.02 1 - 1.03 [facility] Urobilinogen, UA 0.2 0.2 - 12 mg/dL [facility] Urinalysis macro (dipstick) panel (U)on 05-09-2024 Bilirubin, UA Positive Negative - 4(70) +++ mg/dL [facility] Comment on above: small Blood, UA Negative Negative - 50 Angel Luis/mcL [facility] Clarity, UA Clear [facility] Color, UA Miryam [facility] Glucose, UA Negative Negative - 1999(110) ++++ mg/dL [facility] Interpretation and review of laboratory results Abnormal [facility] Ketones, UA Positive Negative - 160(16) ++++ mg/dL [facility] Comment on above: trace Leukocytes, UA Negative Negative - 500+++ Drew/mcL [facility] Nitrite, UA Negative Negative - Positive [facility] pH, UA 6 5 - 9 [facility] Protein, UA Positive Negative - 1999(20) ++++ mg/dL [facility] Comment on above: 30 mg Spec Grav, UA 1.03 1 - 1.03 [facility] Urobilinogen, UA 0.2 0.2 - 12 mg/dL [facility] Urinalysis macro (dipstick) panel (U)on 04-11-2024 Bilirubin, UA Negative Negative - 4(70) +++ mg/dL [facility] Blood, UA Negative Negative - 50 Angel Luis/mcL [facility] Clarity, UA Clear [facility] Color, UA Yellow [facility] Glucose, UA Negative Negative - 1999(110) ++++ mg/dL [facility] Interpretation and review of laboratory results Normal [facility] Ketones, UA Negative Negative - 160(16) ++++ mg/dL [facility] Leukocytes, UA Negative Negative - 500+++ Drew/mcL [facility] Nitrite, UA Negative Negative - Positive [facility] pH, UA 6.5 5 - 9 [facility] Protein, UA Negative Negative - 1999(20) ++++ mg/dL [facility] Spec Grav, UA 1.020 1 - 1.03 [facility] Urobilinogen, UA 0.2 0.2 - 12 mg/dL [facility] Urinalysis macro (dipstick) panel (U)on 03-14-2024 Bilirubin, UA Negative Negative - 4(70) +++ mg/dL [facility] Blood, UA Negative Negative - 50 Angel Luis/mcL [facility] Clarity, UA Clear [facility] Color, UA Yellow [facility] Glucose, UA Negative Negative - 1999(110) ++++ mg/dL [facility] Interpretation and review of laboratory results Normal [facility] Ketones, UA Negative Negative - 160(16) ++++ mg/dL [facility] Leukocytes, UA Negative Negative - 500+++ Drew/mcL [facility] Nitrite, UA Negative Negative - Positive [facility] pH, UA 7.0 5 - 9 [facility] Protein, UA Negative Negative - 1999(20) ++++ mg/dL [facility] Spec Grav, UA 1.020 1 - 1.03 [facility] Urobilinogen, UA 0.2 0.2 - 12 mg/dL [facility] Facesheeton 03-02-2023 Facesheet [id number] CD:[address] [facility] Ambulatory Visit Summaryon 0 02-27-2023 Ambulatory Visit [...] History of pre-eclampsia Insomnia Migraines Overweight Normal [facility] RAD - Ultrasound Reporton RAD - Ultrasound Report [id number] D:[address] [facility] Physician Referralon 023 Physician Referral [id number] D:[address] [facility] INSULINon 11-08-2022 Insulin 7.7 uIU/mL Normal 2.6-24.9 [facility] Comment on above: Performed By: #### V AMAURY, IRON #### [facility] [address] [place] [address] Dr. Chucho Jesus CBC AUTO DIFFon 11-07-2022 BASO # 0.0 103/ul Normal 0.0-0.1 [facility] Comment on above: Performed By: #### V AMAURY, IRON #### [facility] [address] [place] [address] Dr. Chucho Jesus Basophils/100 WBC (Bld) 0.6 % Normal 0.2-2.0 [facility] Comment on above: Performed By: #### V AMAURY, IRON #### [facility] [address] [place] [address] Dr. Chucho Jesus EO # 0.1 103/ul Normal 0.0-0.7 [facility] Comment on above: Performed By: #### V ITSONIYA, IRON #### [facility] [address] [place] [address] Dr. Chucho Jesus Eosinophils/100 WBC (Bld) 1.4 % Normal 0.9-7.0 [facility] Comment on above: Performed By: #### V ITSONIYA, IRON #### [facility] [address] [place] [address] Dr. Chucho Jesus Erythrocyte distribution width (RBC) [Ratio] 13.9 % Normal 11.0-15.0 [facility] Comment on above: Performed By: #### V ITAD, IRON #### [facility] [address] [place] [address] Dr. Chucho Jesus Hematocrit (Bld) [Volume fraction] 45.6 % Normal 36.0-48.0 [facility] Comment on above: Performed By: #### V ITAD, IRON #### [facility] [address] [place] [address] Dr. Chucho Jesus Hemoglobin (Bld) [Mass/Vol] 15.1 g/dL Normal 12.0-16.0 [facility] Comment on above: Performed By: #### V ITAD, IRON #### [facility] [address] [place] [address] Dr. Chucho Jesus IG # 0.01 10e3/ul Normal 0.00-0.03 [facility] Comment on above: Performed By: #### V ITAD, IRON #### [facility] [address] [place] [address] Dr. Chucho Jesus IG % 0.1 % Normal 0.0-0.5 [facility] Comment on above: Performed By: #### V ITAD, IRON #### [facility] [address] [place] [address] Dr. Chucho Jesus LYMPH # 1.9 103/ul Normal 1.2-3.[address] [facility] Comment on above: Performed By: #### V ITAD, IRON #### [facility] [address] [place] [address] Dr. Chucho Jesus Lymphocytes/100 WBC (Bld) 26.3 % Normal 20.5-60.[address] [facility] Comment on above: Performed By: #### V ITAD, IRON #### [facility] [address] [place] [address] Dr. Chucho Jesus MANUAL DIFF REQ NO Normal [facility] Comment on above: Performed By: #### V ITAD, IRON #### [facility] [address] [place] [address] Dr. Chucho Jesus MCH (RBC) [Entitic mass] 27.9 pg Normal 26.7-34.[address] [facility] Comment on above: Performed By: #### V ITAD, IRON #### [facility] [address] [place] [address] Dr. Chucho Jesus MCHC (RBC) [Mass/Vol] 33.1 g/dL Normal 29.9-35.[address] [facility] Comment on above: Performed By: #### V ITAD, IRON #### [facility] [address] [place] [address] Dr. Chucho Jesus MCV (RBC) [Entitic vol] 84.1 fL Normal 81.0-99.[address] [facility] Comment on above: Performed By: #### V ITAD, IRON #### [facility] [address] [place] [address] Dr. Chucho Jesus MONO # 0.5 103/ul Normal 0.3-0.[address] [facility] Comment on above: Performed By: #### V ITAD, IRON #### [facility] [address] [place] [address] Dr. Chucho Jesus Monocytes/100 WBC (Bld) 7.3 % Normal 1.7-12.[address] [facility] Comment on above: Performed By: #### V ITAD, IRON #### [facility] [address] [place] [address] Dr. Chucho Jesus NEUT # 4.6 103/ul Normal 1.4-6.[address] [facility] Comment on above: Performed By: #### V ITAD, IRON #### [facility] [address] [place] [address] Dr. Chucho Jesus Neutrophils/100 WBC (Bld) 64.3 % Normal 43.0-75.[address] [facility] Comment on above: Performed By: #### V ITAD, IRON #### [facility] [address] [place] [address] Dr. Chucho Jesus Platelet mean volume (Bld) [Entitic vol] 10.9 fL Normal 9.5-13.5 [facility] Comment on above: Performed By: #### V ITAD, IRON #### [facility] [address] [address] [address] Chucho Jesus PLT 226 103/ul Normal 150-450 [facility] Comment on above: Performed By: #### V ITAD, IRON #### [facility] [address] [address] [address] Chucho Jesus RBC 5.42 106/ul Critically high 4.20-5.40 [facility] Comment on above: Performed By: #### V ITAD, IRON #### [facility] [address] [address] [address] Chucho Jesus WBC 7.2 103/ul Normal 4.0-11.0 [facility] Comment on above: Performed By: #### V ITAD, IRON #### [facility] [address] [address] [address] Chucho Jesus FREE THYROXINE INDEX T7on FTI 3.29 Normal 1.30-4.50 [facility] Comment on above: Performed By: #### V ITAD, IRON #### [facility] [address] [address] [address] Chucho Jesus T3U 35.0 % Normal 30.0-39.0 [facility] Comment on above: Performed By: #### V ITAD, IRON #### [facility] [address] [address] [address] Chucho Jesus T4 [Mass/Vol] 9.40 ug/dL Normal 4.80-13.90 [facility] Comment on above: Performed By: #### V ITAD, IRON #### [facility] [address] [address] [address] Chucho Jesus GLYCOHEMOGLOBIN A1Con 2022 ADA RECOMMENDATION SEE BELOW Normal [facility] Comment on above: Result Comment: ADA RECOMMENDED LIMIT 4.0 - 6.0 ADA THERAPEUTIC TARGET < 7.0 ACTION SUGGESTED > 7.0 Performed By: #### A 1C #### [facility] [address] [place] [address] Dr. Chucho Jesus Glucose [Mass/Vol] 94 mg/dL Normal [facility] Comment on above: Performed By: #### A 1C #### [facility] [address] [place] [address] Dr. Chucho Jesus HbA1c (Bld) [Mass fraction] 4.9 % Normal 4.5-6.2 [facility] Comment on above: Performed By: #### A 1C #### [facility] [address] [address] [address] Chucho Jesus IRONon 11-07-2022 Iron [Mass/Vol] 81.0 ug/dL Normal 50.0-170.0 [facility] Comment on above: Performed By: #### V ITAD, IRON #### [facility] [address] [place] [address] Dr. Chucho Jesus LIPID PROFILEon 11-07-2022 CHOL-HDL RATIO NORM SEE BELOW Normal [facility] Comment on above: Result Comment: 3.3 - 4.4 LOW RISK 4.4 - 7.1 AVERAGE RISK 7.1 - 11.0 MODERATE RISK >11.0 HIGH RISK Performed By: #### V ITAD, IRON #### [facility] [address] [place] [address] Dr. Chucho Jesus Cholesterol [Mass/Vol] 126 mg/dL Normal <=200 [facility] Comment on above: Performed By: #### V ITAD, IRON #### [facility] [address] [place] [address] Dr. Chucho Jesus Cholesterol in HDL [Mass/Vol] 38 mg/dL Critically low 40-60 [facility] Comment on above: Performed By: #### V ITAD, IRON #### [facility] [address] [address] [address] Chucho Jesus Cholesterol in LDL [Mass/Vol] 79.4 mg/dL Normal [facility] Comment on above: Performed By: #### V ITAD, IRON #### [facility] [address] [place] [address] Dr. Chucho Jesus Cholesterol.total/C holesterol in HDL [Mass ratio] 3.3 {ratio} Normal [facility] Comment on above: Performed By: #### V ITAD, IRON #### [facility] [address] [address] [address] Chucho Jesus HDL NORMAL > or = 60 mg/dl - LO W CARDIOVASCULAR RISK <40 mg/dl - HIGH CARDIOVASCULAR RISK Normal [facility] Comment on above: Performed By: #### V ITAD, IRON #### [facility] [address] [address] [address] Chucho Jesus LDL CALC NORMAL SEE BELOW Normal [facility] Comment on above: Result Comment: <100 mg/dl OPTIMAL 100 - 129 mg/dl NEAR OR ABOVE OPTIMAL 130 - 159 mg/dl BORDERLINE HIGH 160 - 189 mg/dl HIGH >190 mg/dl VERY HIGH Performed By: #### V ITAD, IRON #### [facility] [address] [place] [address] Dr. Chucho Jesus Triglyceride [Mass/Vol] 43 mg/dL Normal <=150 [facility] Comment on above: Performed By: #### V ITAD, IRON #### [facility] [address] [place] [address] Dr. Chucho Jesus VLDL CALC 8.6 mg/dL Normal [facility] Comment on above: Performed By: #### V ITAD, IRON #### [facility] [address] [place] [address] Dr. Chucho Jesus PROF 14(COMP METB)on 023 Albumin [Mass/Vol] 4.2 g/dL Normal 3.4-5.0 [facility] Comment on above: Performed By: #### V ITAD, IRON #### [facility] [address] [place] [address] Dr. Chucho Jesus Albumin/Globulin [Mass ratio] 1.1 {ratio} Normal [facility] Comment on above: Performed By: #### V ITAD, IRON #### [facility] [address] [address] [address] Chucho Jesus ALP [Catalytic activity/Vol] 93 U/L Normal 46-116 [facility] Comment on above: Performed By: #### V ITAD, IRON #### [facility] [address] [address] [address] Chucho Jesus ALT [Catalytic activity/Vol] 16 U/L Normal 14-59 [facility] Comment on above: Performed By: #### V ITAD, IRON #### [facility] [address] [address] [address] Chucho Jesus Anion gap [Moles/Vol] 14.3 mmol/L Normal [facility] Comment on above: Performed By: #### V ITAD, IRON #### [facility] [address] [address] [address] Chucho Jesus AST [Catalytic activity/Vol] 16 U/L Normal 15-37 [facility] Comment on above: Performed By: #### V ITAD, IRON #### [facility] [address] [place] [address] Dr. Chucho Jesus Bilirubin [Mass/Vol] 1.0 mg/dL Normal 0.2-1.0 [facility] Comment on above: Performed By: #### V ITAD, IRON #### [facility] [address] [address] [address] Chucho Jesus Calcium [Mass/Vol] 9.4 mg/dL Normal 8.5-10.1 [facility] Comment on above: Performed By: #### V ITAD, IRON #### [facility] [address] [address] [address] Chucho Jesus Chloride [Moles/Vol] 103 mmol/L Normal 98-[address] [facility] Comment on above: Performed By: #### V ITAD, IRON #### [facility] [address] [address] [address] Chucho Jesus CO2 [Moles/Vol] 24.9 mmol/L Normal 21.0-32.0 [facility] Comment on above: Performed By: #### V ITAD, IRON #### [facility] [address] [address] [address] Chucho Jesus Creatinine [Mass/Vol] 0.68 mg/dL Normal 0.55-1.02 [facility] Comment on above: Performed By: #### V ITAD, IRON #### [facility] [address] [address] [address] Chucho Jesus EGFR-AF NEPALESE >60 Normal >=60 [facility] Comment on above: Performed By: #### V ITAD, IRON #### [facility] [address] [address] [address] Chucho Jesus EGFR-NON AF NEPALESE >60 Normal >=[address] [facility] Comment on above: Performed By: #### V ITAD, IRON #### [facility] [address] [address] Dr. Chucho Jesus Globulin (S) [Mass/Vol] 3.9 g/dL Normal [facility] Comment on above: Performed By: #### V ITAD, IRON #### [facility] [address] [address] [address] Chucho Jesus Glucose [Mass/Vol] 89 mg/dL Normal 74-106 [facility] Comment on above: Performed By: #### V ITAD, IRON #### [facility] [address] [address] [address] Chucho Jesus Potassium [Moles/Vol] 4.2 mmol/L Normal 3.5-5.[address] [facility] Comment on above: Performed By: #### V ITAD, IRON #### [facility] [address] [address] [address] Chucho Jesus Protein [Mass/Vol] 8.1 g/dL Normal 6.4-8.2 [facility] Comment on above: Performed By: #### V ITAD, IRON #### [facility] [address] [address] [address] Chucho Jesus Sodium [Moles/Vol] 138 mmol/L Normal 136-145 [facility] Comment on above: Performed By: #### V ITAD, IRON #### [facility] [address] [address] [address] Chucho Jesus Urea nitrogen [Mass/Vol] 9.0 mg/dL Normal 7.0-18.0 [facility] Comment on above: Performed By: #### V ITAD, IRON #### [facility] [address] [address] [address] Chucho Jesus Urea nitrogen/Creatinine [Mass ratio] 13.2 mg/mg Normal [facility] Comment on above: Performed By: #### V ITAD, IRON #### [facility] [address] [place], [place] [address] Dr. Chucho Jesus TSHon 11-07-2022 TSH 1.668 uIU/mL Normal 0.358-3.740 [facility] Comment on above: Performed By: #### V ITAD, IRON #### [facility] [address] [address] [address] Chucho Jesus Covid-19 PCR (CVDTBH)on SARS-CoV-2 (COVID-19) RNA DMITRY+probe Ql (Unsp spec) Not detected Normal NOT DETECTED [facility] Comment on above: Result Comment: When [...] for this test is supported by the [place] [employer] Service's declaration that [...] Performed By: #### V ITAD, IRON #### [facility] [address] [place] [address] [id number] [address] Chucho Jesus Covid-19 PCR (CVDTBH)on SARS-CoV-2 (COVID-19) RNA DMITRY+probe Ql (Unsp spec) Not detected Normal NOT DETECTED The [facility] Comment on above: Result Comment: When [...] for this test is supported by the [place] [employer]'s declaration that [...] used). Performed By: #### C VDTBH #### [facility] [address] [place] [address] Dr. Chucho Jesus INFLUENZA A AND B AGon 08-[facility] Normal [facility] Comment on above: Result Comment: Nega tive for Flu A protein angiten. Infection due to Flu A cannot be ruled out. Flu A angiten in the sample may be below the detection limit of the test. Performed By: #### I NFLUAB #### [facility] [address] [place] [address] Dr. Chucho Jesus [facility] BEL[facility] Normal [facility] Comment on above: Result Comment: Nega tive for Flu B protein antigen. Infection due to Flu B cannot be ruled out. Flu B antigen in the sample may be below the detection limit of the test. Performed By: #### I NFLUAB #### [facility] [address] [place] [address] Dr. Chucho Jesus INFLUENZA A AG Negative Normal NEGATIVE SEE COMMENT [facility] Comment on above: Performed By: #### I NFLUAB #### [facility] [address] [place] [address] Dr. Chucho Jesus INFLUENZA B AG Negative Normal NEGATIVE SEE COMMENT [facility] Comment on above: Performed By: #### I NFLUAB #### [facility] [address] [address] [address] Chucho Jesus Covid-19 PCR ([facility])on 05-07 SARS-CoV-2 (COVID-19) RNA DMITRY+probe Ql (Unsp spec) Not detected Normal NOT DETECTED The [facility] Comment on above: Result Comment: When [...] for this test is supported by the [place] [employer]'s declaration that [...] Performed By: #### V ITAD, IRON #### [facility] [address] [place] [address] Dr. Chucho Jesus INFLUENZA A AND B AGon 05-26 [facility] SEE BELOW Normal [facility] Comment on above: Result Comment: Nega tive for Flu A protein angiten. Infection due to Flu A cannot be ruled out. Flu A angiten in the sample may be below the detection limit of the test. Performed By: #### V ITAD, IRON #### [facility] [address] [address] [address] Chucho [facility] Normal [facility] Comment on above: Result Comment: Nega tive for Flu B protein antigen. Infection due to Flu B cannot be ruled out. Flu B antigen in the sample may be below the detection limit of the test. Performed By: #### V ITAD, IRON #### [facility] [address] [address] [address] Chucho Jesus INFLUENZA A AG Negative Normal NEGATIVE SEE COMMENT [facility] Comment on above: Performed By: #### V ITAD, IRON #### [facility] [address] [place] [address] Dr. Chucho Jesus INFLUENZA B AG Negative Normal NEGATIVE SEE COMMENT [facility] Comment on above: Performed By: #### V ITAD, IRON #### [facility] [address] [address] [address] Chucho Jesus INTERNAL CONTROLS Within Normal Limits Normal Wi thin Normal Limits [facility] Comment on above: Performed By: #### V ITAD, IRON #### [facility] [address] [place] [address] Dr. Chucho Jesus ER URINE PROFILEon 2 Bilirubin Ql (U) Negative Normal NEGATIVE [facility] Comment on above: Performed By: #### V ITAD, IRON #### [facility] [address] [place] [address] Dr. Chucho Jesus Clarity (U) CLEAR Normal CLEAR [facility] Comment on above: Performed By: #### V ITAD, IRON #### [facility] [address] [place] [address] Dr. Chucho Jesus Color (U) YELLOW Normal YELLOW [facility] Comment on above: Performed By: #### V ITAD, IRON #### [facility] [address] [place] [address] Dr. Chucho WEISSBriana A micrscopic examination will be performed if indicated. Normal The [facility] Comment on above: Performed By: #### V ITAD, IRON #### [facility] [address] [place] [address] Dr. Chucho Jesus Glucose Ql (U) Negative Normal NEGATIVE [facility] Comment on above: Performed By: #### V ITAD, IRON #### [facility] [address] [place] [address] Dr. Chucho Jesus Hemoglobin Ql (U) Negative Normal NEGATIVE [facility] Comment on above: Performed By: #### V ITAD, IRON #### [facility] [address] [place] [address] Dr. Chucho Jesus Ketones Ql (U) >=80 Abnormal NEGATIVE [facility] Comment on above: Performed By: #### V ITAD, IRON #### [facility] [address] [place] [address] Dr. Chucho Jesus LEUKOCYTES Negative Normal NEGATIVE [facility] Comment on above: Performed By: #### V ITAD, IRON #### [facility] [address] [address] [address] Chucho Jesus Nitrite Ql (U) Negative Normal NEGATIVE [facility] Comment on above: Performed By: #### V ITAD, IRON #### [facility] [address] [place] [address] Dr. Chucho Jesus pH (U) 6.0 [pH] Normal 5-9 [facility] Comment on above: Performed By: #### V ITAD, IRON #### [facility] [address] [place] [address] Dr. Chucho Jesus Protein (U) [Mass/Vol] 100 mg/dL Abnormal NEGATIVE/ TRACE [facility] Comment on above: Performed By: #### V ITAD, IRON #### [facility] [address] [place] [address] Dr. Chucho Jesus SPEC GRAVITY >=1.030 Abnormal 1.005-<=1.025 [facility] Comment on above: Performed By: #### V ITAD, IRON #### [facility] [address] [place] [address] Dr. Chucho Jesus UR MICRO IND INDICATED Normal [facility] Comment on above: Performed By: #### V ITAD, IRON #### [facility] [address] [place] [address] Dr. Chucho Jesus Urobilinogen Qn (U) 0.2 {Chelsea'U}/dL Normal 0.2 - 1. 0 [facility] Comment on above: Performed By: #### V ITAD, IRON #### [facility] [address] [place] [address] Dr. Chucho Jesus URon 05-22-2022 , QUAL Negative Normal NEGATIVE [facility] Comment on above: Performed By: #### V ITAD, IRON #### [facility] [address] [place] [address] Dr. Chucho Jesus URINE MICROSCOPIC ONLYon BACTERIA NONE SEEN Normal NONE SEEN [facility] Comment on above: Performed By: #### V ITAD, IRON #### [facility] [address] [place] [address] Dr. Chucho Jesus Bacteria identified Cx Nom (U) NOT INDICATED Normal [facility] Comment on above: Performed By: #### V ITAD, IRON #### [facility] [address] [place] [address] Dr. Chucho Jesus CAST NONE SEEN Normal NONE SEEN [facility] Comment on above: Performed By: #### V ITAD, IRON #### [facility] [address] [place] [address] Dr. Chucho Jesus Crystals LM Nom (Urine sed) NONE SEEN Normal NONE SEEN [facility] Comment on above: Performed By: #### V ITAD, IRON #### [facility] [address] [place] [address] Dr. Chucho Jesus Epithelial cells LM Ql (Urine sed) FEW Abnormal NONE SEEN /RARE [facility] Comment on above: Performed By: #### V ITAD, IRON #### [facility] [address] [place] [address] Dr. Chucho Jesus MUCOUS MODERATE Abnormal NONE SEEN The [facility] Comment on above: Performed By: #### V ITAD, IRON #### [facility] [address] [place] [address] Dr. Chucho Jesus RBC NONE SEEN Abnormal 0-[address] [facility] Comment on above: Performed By: #### V ITAD, IRON #### [facility] [address] [place] [address] Dr. Chucho Jesus WBC NONE SEEN Normal NONE SEEN [facility] Comment on above: Performed By: #### V ITAD, IRON #### [facility] [address] [place] [address] Dr. Chucho Jesus XR LSPINE 2_3 VIEWSon [...] SHAINA CAMPOS Date: 2022-05-22 12:28 Normal [address] [facility] INSULINon 04-25-2022 Insulin 10.4 uIU/mL Normal 2.6-24.[address] [facility] Comment on above: Performed By: #### V ITAD, IRON #### [facility] [address] [place] [address] Dr. Chucho Jesus CBC AUTO DIFFon 04-24-2022 BASO # 0.0 103/ul Normal 0.0-0.1 [facility] Comment on above: Performed By: #### C BC #### [facility] [address] [place] [address] Dr. Chucho Jesus Basophils/100 WBC (Bld) 0.6 % Normal 0.2-2.[address] [facility] Comment on above: Performed By: #### C BC #### [facility] [address] [place] [address] Dr. Chucho Jesus EO # 0.1 103/ul Normal 0.0-0.[address] [facility] Comment on above: Performed By: #### C BC #### [facility] [address] [place] [address] Dr. Chucho Jesus Eosinophils/100 WBC (Bld) 1.8 % Normal 0.9-7.[address] [facility] Comment on above: Performed By: #### C BC #### [facility] [address] [place] [address] Dr. Chucho Jesus Erythrocyte distribution width (RBC) [Ratio] 12.9 % Normal 11.0-15.0 [facility] Comment on above: Performed By: #### C BC #### [facility] [address] [place] [address] Dr. Chucho Jesus Hematocrit (Bld) [Volume fraction] 45.6 % Normal 36.0-48.0 [facility] Comment on above: Performed By: #### C BC #### [facility] [address] [place] [address] Dr. Chucho Jesus Hemoglobin (Bld) [Mass/Vol] 14.7 g/dL Normal 12.0-16.0 [facility] Comment on above: Performed By: #### C BC #### [facility] [address] [place] [address] Dr. Chucho Jesus IG # 0.02 10e3/ul Normal 0.00-0.03 [facility] Comment on above: Performed By: #### C BC #### [facility] [address] [place] [address] Dr. Chucho Jesus IG % 0.3 % Normal 0.0-0.5 [facility] Comment on above: Performed By: #### C BC #### [facility] [address] [place] [address] Dr. Chucho Jesus LYMPH # 1.6 103/ul Normal 1.2-3.8 [facility] Comment on above: Performed By: #### C BC #### [facility] [address] [place] [address] Dr. Chucho Jesus Lymphocytes/100 WBC (Bld) 24.5 % Normal 20.5-60.0 [facility] Comment on above: Performed By: #### C BC #### [facility] [address] [place] [address] Dr. Chucho Jesus MANUAL DIFF REQ NO Normal [facility] Comment on above: Performed By: #### C BC #### [facility] [address] [place] [address] Dr. Chucho Jesus MCH (RBC) [Entitic mass] 28.4 pg Normal 26.7-34.0 [facility] Comment on above: Performed By: #### C BC #### [facility] [address] [address] [address] Chucho Jesus MCHC (RBC) [Mass/Vol] 32.2 g/dL Normal 29.9-35.2 [facility] Comment on above: Performed By: #### C BC #### [facility] [address] [place] [address] Dr. Chucho Jesus MCV (RBC) [Entitic vol] 88.2 fL Normal 81.0-99.0 [facility] Comment on above: Performed By: #### C BC #### [facility] [address] [place] [address] Dr. Chucho Jesus MONO # 0.5 103/ul Normal 0.3-0.8 [facility] Comment on above: Performed By: #### C BC #### [facility] [address] [place] [address] Dr. Chucho Jesus Monocytes/100 WBC (Bld) 7.4 % Normal 1.7-12.0 [facility] Comment on above: Performed By: #### C BC #### [facility] [address] [place] [address] Dr. Chucho Jesus NEUT # 4.4 103/ul Normal 1.4-6.5 [facility] Comment on above: Performed By: #### C BC #### [facility] [address] [place] [address] Dr. Chucho Jesus Neutrophils/100 WBC (Bld) 65.4 % Normal 43.0-75.[address] [facility] Comment on above: Performed By: #### C BC #### [facility] [address] [place] [address] Dr. Chucho Jesus Platelet mean volume (Bld) [Entitic vol] 9.9 fL Normal 9.5-13.5 [facility] Comment on above: Performed By: #### C BC #### [facility] [address] [place] [address] Dr. Chucho Jesus PLT 225 103/ul Normal 150-[address] [facility] Comment on above: Performed By: #### C BC #### [facility] [address] [address] [address] Chucho Jesus RBC 5.17 106/ul Normal 4.20-5.40 [facility] Comment on above: Performed By: #### C BC #### [facility] [address] [place] [address] Dr. Chucho Jesus WBC 6.7 103/ul Normal 4.0-11.0 [facility] Comment on above: Performed By: #### C BC #### [facility] [address] [place] [address] Dr. Chucho Jesus FREE THYROXINE INDEX T7on FTI 3.29 Normal 1.30-4.50 [facility] Comment on above: Performed By: #### T 7, TSH, LIPID, CMP #### [facility] [address] [place] [address] Dr. Chucho Jesus T3U 27.0 % Critically low 30.0-39.0 [facility] Comment on above: Performed By: #### T 7, TSH, LIPID, CMP #### [facility] [address] [place] [address] Dr. Chucho Jesus T4 [Mass/Vol] 12.20 ug/dL Normal 4.80-13.90 [facility] Comment on above: Performed By: #### T 7, TSH, LIPID, CMP #### [facility] [address] [place] [address] Dr. Chucho Jesus GLYCOHEMOGLOBIN A1Con 2021 ADA RECOMMENDATION SEE BELOW Normal [facility] Comment on above: Result Comment: ADA RECOMMENDED LIMIT 4.0 - 6.0 ADA THERAPEUTIC TARGET < 7.0 ACTION SUGGESTED > 7.0 Performed By: #### A 1C #### [facility] [address] [place] [address] Dr. Chucho Jesus Glucose [Mass/Vol] 105 mg/dL Normal [facility] Comment on above: Performed By: #### A 1C #### [facility] [address] [place] [address] Dr. Chucho Jesus HbA1c (Bld) [Mass fraction] 5.3 % Normal 4.5-6.2 [facility] Comment on above: Performed By: #### A 1C #### [facility] [address] [address] [address] Chucho Jesus IRONon 04-24-2022 Iron [Mass/Vol] 48.0 ug/dL Critically low 50.0-170.0 [facility] Comment on above: Performed By: #### V ITAD, IRON #### [facility] [address] [address] [address] Chucho Jesus LIPID PROFILEon 04-24-2022 CHOL-HDL RATIO NORM SEE BELOW Normal [facility] Comment on above: Result Comment: 3.3 - 4.4 LOW RISK 4.4 - 7.1 AVERAGE RISK 7.1 - 11.0 MODERATE RISK >11.0 HIGH RISK Performed By: #### V ITAD, IRON #### [facility] [address] [place] [address] Dr. Chucho Jesus Cholesterol [Mass/Vol] 184 mg/dL Normal <=[address] [facility] Comment on above: Performed By: #### V ITAD, IRON #### [facility] [address] [address] [address] Chucho Jesus Cholesterol in HDL [Mass/Vol] 55 mg/dL Normal 40-[address] [facility] Comment on above: Performed By: #### V ITAD, IRON #### [facility] [address] [address] [address] Chucho Jesus Cholesterol in LDL [Mass/Vol] 116.6 mg/dL Normal [facility] Comment on above: Performed By: #### V ITAD, IRON #### [facility] [address] [address] [address] Chucho Jesus Cholesterol.total/C holesterol in HDL [Mass ratio] 3.3 {ratio} Normal [facility] Comment on above: Performed By: #### V ITAD, IRON #### [facility] [address] [address] [address] Chucho Jesus HDL NORMAL > or = 60 mg/dl - LO W CARDIOVASCULAR RISK <40 mg/dl - HIGH CARDIOVASCULAR RISK Normal [facility] Comment on above: Performed By: #### V ITAD, IRON #### [facility] [address] [address] [address] Chucho Jesus LDL CALC NORMAL SEE BELOW Normal [facility] Comment on above: Result Comment: <100 mg/dl OPTIMAL 100 - 129 mg/dl NEAR OR ABOVE OPTIMAL 130 - 159 mg/dl BORDERLINE HIGH 160 - 189 mg/dl HIGH >190 mg/dl VERY HIGH Performed By: #### V ITAD, IRON #### [facility] [address] [address] [address] Chucho Jesus Triglyceride [Mass/Vol] 62 mg/dL Normal <=150 [facility] Comment on above: Performed By: #### V ITAD, IRON #### [facility] [address] [address] [address] Chucho Jesus VLDL CALC 12.4 mg/dL Normal [facility] Comment on above: Performed By: #### V ITAD, IRON #### [facility] [address] [address] [address] Chucho Jesus PROF 14(COMP METB)on 04-24- 022 Albumin [Mass/Vol] 3.7 g/dL Normal 3.4-5.0 [facility] Comment on above: Performed By: #### T 7, TSH, LIPID, CMP #### [facility] [address] [address] [address] Chucho Jesus Albumin/Globulin [Mass ratio] 0.9 {ratio} Normal [facility] Comment on above: Performed By: #### T 7, TSH, LIPID, CMP #### [facility] [address] [address] [address] Chucho Jesus ALP [Catalytic activity/Vol] 74 U/L Normal 46-116 [facility] Comment on above: Performed By: #### T 7, TSH, LIPID, CMP #### [facility] [address] [address] [address] Chucho Jesus ALT [Catalytic activity/Vol] 16 U/L Normal 14-59 [facility] Comment on above: Performed By: #### T 7, TSH, LIPID, CMP #### [facility] [address] [address] [address] Chucho Jesus Anion gap [Moles/Vol] 12.3 mmol/L Normal [facility] Comment on above: Performed By: #### T 7, TSH, LIPID, CMP #### [facility] [address] [address] [address] Chucoh Jesus AST [Catalytic activity/Vol] 13 U/L Critically low 15-37 [facility] Comment on above: Performed By: #### T 7, TSH, LIPID, CMP #### [facility] [address] [place] [address] Dr. Chucho Jesus Bilirubin [Mass/Vol] 0.4 mg/dL Normal 0.2-1.0 [facility] Comment on above: Performed By: #### T 7, TSH, LIPID, CMP #### [facility] [address] [place] [address] Dr. Chucho Jesus Calcium [Mass/Vol] 8.9 mg/dL Normal 8.5-10.1 [facility] Comment on above: Performed By: #### T 7, TSH, LIPID, CMP #### [facility] [address] [place] [address] Dr. Chucho Jesus Chloride [Moles/Vol] 105 mmol/L Normal 98-[address] [facility] Comment on above: Performed By: #### T 7, TSH, LIPID, CMP #### [facility] [address] [place] [address] Dr. Chucho Jesus CO2 [Moles/Vol] 26.6 mmol/L Normal 21.0-32.0 [facility] Comment on above: Performed By: #### T 7, TSH, LIPID, CMP #### [facility] [address] [place] [address] Dr. Chucho Jesus Creatinine [Mass/Vol] 0.68 mg/dL Normal 0.55-1.02 [facility] [facility] Comment on above: Performed By: #### T 7, TSH, LIPID, CMP #### [facility] [address] [address] [address] Chucho Jesus EGFR-AF NEPALESE >60 Normal >=60 [facility] Comment on above: Performed By: #### T 7, TSH, LIPID, CMP #### [facility] [address] [address] [address] Chucho Jesus EGFR-NON AF NEPALESE >60 Normal >=[address] [facility] Comment on above: Performed By: #### T 7, TSH, LIPID, CMP #### [facility] [address] [address] [address] Chucho Jesus Globulin (S) [Mass/Vol] 4.3 g/dL Normal [facility] Comment on above: Performed By: #### T 7, TSH, LIPID, CMP #### [facility] [address] [place] [address] Dr. Chucho Jesus Glucose [Mass/Vol] 87 mg/dL Normal 74-106 [facility] Comment on above: Performed By: #### T 7, TSH, LIPID, CMP #### [facility] [address] [place] [address] Dr. Chucho Jesus Potassium [Moles/Vol] 3.9 mmol/L Normal 3.5-5.[address] [facility] Comment on above: Performed By: #### T 7, TSH, LIPID, CMP #### [facility] [address] [place] [address] Dr. Chucho Jesus Protein [Mass/Vol] 8.0 g/dL Normal 6.4-8.2 [facility] Comment on above: Performed By: #### T 7, TSH, LIPID, CMP #### [facility] [address] [place] [address] Dr. Chucho Jesus Sodium [Moles/Vol] 140 mmol/L Normal 136-145 [facility] Comment on above: Performed By: #### T 7, TSH, LIPID, CMP #### [facility] [address] [address] [address] Chucho Jesus Urea nitrogen [Mass/Vol] 9.0 mg/dL Normal 7.0-18.0 [facility] Comment on above: Performed By: #### T 7, TSH, LIPID, CMP #### [facility] [address] [address] [address] Chucho Jesus Urea nitrogen/Creatinine [Mass ratio] 13.2 mg/mg Normal [facility] Comment on above: Performed By: #### T 7, TSH, LIPID, CMP #### [facility] [address] [address] [address] Chucho Jesus TSHon 04-24-2022 TSH 1.127 uIU/mL Normal 0.358-3.740 [facility] Comment on above: Performed By: #### T 7, TSH, LIPID, CMP #### [facility] [address] [address] [address] Chucho Jesus VITAMIN D 25 OHon 04-24-2022 VIT D 25-OH 35.2 ng/mL Normal [facility] Comment on above: Performed By: #### V ITAD, IRON #### [facility] [address] [address] [address] Chucho Jesus VIT D RANGES SEE BELOW Normal [facility] Comment on above: Result Comment: <20 ng/mL Vit D deficient 20 - <30 ng/mL Vit D insufficient 30 - 100 ng/mL Vit D sufficient >100 ng/mL Potential Toxicity Performed By: #### V ITAD, IRON #### [facility] [address] [place] [address] Dr. Chucho Jesus HCG ( test) Ql (U)O rdered By: James Churchill on 12-05-2020 Internal Control Pass [facility] Interpretation and review of laboratory results Normal [facility] POC , UrineOrdered By: James Churchill on 12-05-2020 HCG ( test) Ql (U) Negative Negative [facility] CTA CHEST WITH CONTRASTon CTA CHEST [...] MD/Edited Result - FINAL Normal [facility] Basic Metabolic Profon 02-19 (cont.) Normal [facility] Comment on above: Result Comment: Aver age GFR for 20-29 years old: 116 mL/min/1.73sq mChronic Kidney Disease: <60 mL/min/1.73sq mKidney failure: <15 mL/min/1.73sq meGFR calculated using average adult body mass. Additional eGFR calculator available at:http://www.Graine [employer]adeaux.VibeSec/multiple_crcl_2012.htm Performed By: #### C DP, BMP, TROPI ####[address] [place] [address] Anion gap 14 mmol/L Normal 03-22 [facility] Comment on above: Performed By: #### C DP, BMP, TROPI ####[address] [place] [address] BUN/CRE Ratio 13 Normal - [facility] Comment on above: Performed By: #### C DP, BMP, TROPI ####[address] [place] [address] Calcium 9.2 mg/dL Normal 8.6-10.4 [facility] Comment on above: Performed By: #### C DP, BMP, TROPI ####[address] [place] [address] Chloride 105 mmol/L Normal 98-107 [facility] Comment on above: Performed By: #### C DP, BMP, TROPI ####[address] [place] [address] CO2 23 mmol/L Normal 20-31 [facility] Comment on above: Performed By: #### C DP, BMP, TROPI ####[address] [place] [address] Creatinine 0.55 mg/dL Normal 0.50-0.90 [facility] Comment on above: Performed By: #### C DP, BMP, TROPI ####[address] [place] [address] eGFR (non-black) mL/min/{1.73_m2} Normal >60 [facility] Comment on above: Performed By: #### C DP, BMP, TROPI ####[address] [place] [address] Glucose mass conc 96 mg/dL Normal 70-99 [facility] Comment on above: Performed By: #### C DP, BMP, TROPI ####[address] [place] [address] Potassium molar conc 3.6 mmol/L Low 3.7-5.3 [facility] Comment on above: Performed By: #### C DP, BMP, TROPI ####[address] [place] [address] Sodium 142 mmol/L Normal 135-144 [facility] Comment on above: Performed By: #### C DP, BMP, TROPI ####[address] [place] [address] Staging: Normal [facility] Comment on above: Result Comment: Stag e 1: Some kidney damage normal GFRStage 2: Mild kidney damage GFR 60-89Stage 3: Moderate kidney damage GFR 30-59Stage 4: Severe kidney damage GFR 15-29Stage 5: Severe kidney damage GFR <15ESRD - chronic treatment by dialysis or transplantPerformed at [address] [place] [address] Performed By: #### C DP, BMP, TROPI ####[address] [facility] Urea nitrogen 7 mg/dL Normal 6-20 [facility] Comment on above: Performed By: #### C DP, BMP, TROPI ####[address] [address] CBC with Diffon 02-19-2017 Abs. Basophil 0.00 k/uL Normal 0.0-0.2 [facility] Comment on above: Result Comment: Perf ormed at [address] [place] [address] Performed By: #### C DP, BMP, TROPI ####[address] [place] [address] Abs.Neutrophil (Seg) 7.10 k/uL Normal 1.8-8.0 [facility] Comment on above: Performed By: #### C DP, BMP, TROPI ####[address] [place] [address] Basophils/100 WBC Auto (Bld) 0 % Normal [facility] Comment on above: Performed By: #### C DP, BMP, TROPI ####[address] [place] [address] Eosinophils 0.30 10*3/uL Normal 0.0-0.4 [facility] Comment on above: Performed By: #### C DP, BMP, TROPI ####[address] [place] [address] Eosinophils/100 leukocytes 3 % Normal [facility] Comment on above: Performed By: #### C DP, BMP, TROPI ####[address] [place] [address] Erythrocyte distribution width Auto Ratio (RBC) 13.6 % Normal 12.1-15.2 [facility] Comment on above: Performed By: #### C DP, BMP, TROPI ####[address] [place] [address] Erythrocytes (RBC) 5.03 10*6/uL Normal 4.0-5.2 [facility] Comment on above: Performed By: #### C DP, BMP, TROPI ####[address] [place] [address] Hematocrit (HCT) 40.2 % Normal 36-46 [facility] Comment on above: Performed By: #### C DP, BMP, TROPI ####[address] [place] [address] Hemoglobin mass conc (Bld) 13.2 g/dL Normal 12.0-16.0 [facility] Comment on above: Performed By: #### C DP, BMP, TROPI ####[address] [place] [address] Lymphocytes 2.90 10*3/uL Normal 1.2-5.2 [facility] Comment on above: Performed By: #### C DP, BMP, TROPI ####[address] [place] [address] Lymphocytes/100 leukocytes 27 % Normal [facility] Comment on above: Performed By: #### C DP, BMP, TROPI ####[address] [place] [address] MCH 26.2 pg Normal 26-34 [facility] Comment on above: Performed By: #### C DP, BMP, TROPI ####[address] , [place] [address] MCHC mass conc (RBC) 32.8 g/dL Normal 31-37 [facility] Comment on above: Performed By: #### C DP, BMP, TROPI ####[address] , [facility] MCV 79.9 fL Low 80-100 [facility] Comment on above: Performed By: #### C DP, BMP, TROPI ####[address] [place] [address] Monocytes 0.60 10*3/uL Normal 0.0-1.0 [facility] Comment on above: Performed By: #### C DP, BMP, TROPI ####[address] , [place] [address] Monocytes/100 leukocytes 5 % Normal [facility] Comment on above: Performed By: #### C DP, BMP, TROPI ####[address] , [facility]83 Neutrophil (Seg) 65 % Normal [facility] Comment on above: Performed By: #### C DP, BMP, TROPI ####[address] [place] [address] Platelet mean volume (PMV) 9.6 fL Normal 6.0-12.0 [facility] Comment on above: Performed By: #### C DP, BMP, TROPI ####[address] [place] [address] Platelets 278 10*3/uL Normal 140-450 [facility] Comment on above: Performed By: #### C DP, BMP, TROPI ####[address] [place] [address] WBC (Leukocytes) 10.8 10*3/uL Normal 4.5-13.5 [facility] Comment on above: Performed By: #### C DP, BMP, TROPI ####[address] [place] [address] Auto Diff Performed NOT REPORTED Normal [facility] Comment on above: Performed By: #### C DP, BMP, TROPI ####[address] [place] [address] Erythrocyte morphology NOT REPORTED Normal [facility] Comment on above: Performed By: #### C DP, BMP, TROPI ####[address] [place] [address] Platelets NOT REPORTED Normal [facility] Comment on above: Performed By: #### C DP, BMP, TROPI ####[address] [place] [address] WBC Morphology NOT REPORTED Normal [facility] Comment on above: Performed By: #### C DP, BMP, TROPI ####[address] [place] [address] ED Noteon 02-19-2017 HIM IP Note OR [employer] Normal [facility] ED Provider Noteon 7 HIM IP Note OR [employer] Normal [facility] Troponinon 02-19-2017 Troponin T.cardiac mass conc ug/L Normal <0.03 [facility] Comment on above: Result Comment: Trop onin T results cannot be compared to Troponin-I results. Performed By: #### C DP, BMP, TROPI ####[address] [place] [address] Troponin I.cardiac mass conc Normal [facility] Comment on above: Result Comment: Refe rence Range: <0.03 Within reference range. 0.03-0.09 Possible myocardial damage.Repeat at appropriate intervals to rule out chronic elevation. >= 0.10 Indicative of myocardial damage.Performed at [address] [place] [address] [phone] Performed By: #### C DEION, KELLE, ALVARO ####[facility] [address] [place] [address] Vital Signs Date Time Vital Sign Value Performing Clinician Facility 06-21-2024 13:31-0500 Body mass index (BMI) [Ratio] 35.61 kg/m2 Little LOWRY Work Phone: [facility] 06-21-2024 13:31-0500 Body weight 97.07 kg Little Christie PA Work Phone: [facility] 06-21-2024 13:31-0500 Diastolic blood pressure 72 mm[Hg] Little Christie PA Work Phone: [facility] 06-21-2024 13:31-0500 Systolic blood pressure 116 mm[Hg] Little Christie PA Work Phone: [facility] 06-07-2024 13:49-0500 Body mass index (BMI) [Ratio] 34.61 kg/m2 Berto Luis DO Work Phone: [facility] 06-07-2024 13:49-0500 Body weight 94.35 kg Berto Luis DO Work Phone: [facility] 06-07-2024 13:49-0500 Diastolic blood pressure 70 mm[Hg] Berto Luis DO Work Phone: [facility] 06-07-2024 13:49-0500 Systolic blood pressure 120 mm[Hg] Berto Luis DO Work Phone: [facility] 05-24-2024 14:26-0500 Body mass index (BMI) [Ratio] 33.75 kg/m2 Little Christie PA Work Phone: [facility] 05-24-2024 14:26-0500 Body weight 91.99 kg Little Christie PA Work Phone: [facility] 05-24-2024 14:26-0500 Diastolic blood pressure 70 mm[Hg] Little Christie PA Work Phone: [facility] 05-24-2024 14:26-0500 Systolic blood pressure 108 mm[Hg] Little Christie PA Work Phone: [facility] 05-09-2024 11:44-0500 Body mass index (BMI) [Ratio] 33.28 kg/m2 Berto Luis DO Work Phone: [facility] 05-09-2024 11:44-0500 Body weight 90.72 kg Berto Luis DO Work Phone: [facility] 05-09-2024 11:44-0500 Diastolic blood pressure 64 mm[Hg] Berto Luis DO Work Phone: [facility] 05-09-2024 11:44-0500 Systolic blood pressure 118 mm[Hg] Berto Luis DO Work Phone: [facility] 04-11-2024 10:37-0400 Body mass index (BMI) [Ratio] 31.12 kg/m2 Little Christie PA Work Phone: [facility] 04-11-2024 10:37-0400 Body weight 84.82 kg Little Christie PA Work Phone: [facility] 04-11-2024 10:37-0400 Diastolic blood pressure 68 mm[Hg] Little Christie PA Work Phone: [facility] 04-11-2024 10:37-0400 Systolic blood pressure 116 mm[Hg] Little Christie PA Work Phone: [facility] 03-14-2024 11:44-0400 Body mass index (BMI) [Ratio] 28.62 kg/m2 Berto Luis DO Work Phone: [facility] 03-14-2024 11:44-0400 Body weight 78.02 kg Berto Luis DO Work Phone: [facility] 03-14-2024 11:44-0400 Diastolic blood pressure 74 mm[Hg] Berto Luis DO Work Phone: [facility] 03-14-2024 11:44-0400 Systolic blood pressure 118 mm[Hg] Berto Smith DO Work Phone: [facility] 02-27-2023 14:39-0400 Blood Pressure Location Gary DANGEL[facility] [place] 02-27-2023 14:39-0400 Diastolic blood pressure 66 mm[Hg] Gary DANGELOL [facility] [place] 02-27-2023 14:39-0400 Heart rate 70 /min Gary DANGELOL [facility] [place] 02-27-2023 14:39-0400 Respiratory rate 16 /min Gary DANGELOL [facility] [place] 02-27-2023 14:39-0400 Systolic blood pressure 106 mm[Hg] Gary DANGELOL [facility] [place] 01-08-2022 08:09-0400 Body temperature 98.01 [degF] Wiley Rice DO Work Phone: [facility] 01-08-2022 08:09-0400 Body weight 75.75 kg Wiley Rice DO Work Phone: [facility] 01-08-2022 08:09-0400 Diastolic blood pressure 71 mm[Hg] Wiley Rice DO Work Phone: [facility] 01-08-2022 08:09-0400 Heart rate 98 /min Wiley Rice DO Work Phone: [employer] 01-08-2022 08:09-0400 Systolic blood pressure 112 mm[Hg] Wiley Rice DO Work Phone: [employer] 12-10-2021 14:45-0400 Body height 166.37 cm Bret Long Other [employer] Other 12-10-2021 14:45-0400 Body mass index (BMI) [Ratio] 26.55 kg/m2 Bret Long Other [employer] Other 12-10-2021 14:45-0400 Body weight 73.48 kg Bret Long Other [employer] Other 12-10-2021 14:45-0400 Diastolic blood pressure 72 mm[Hg] Bret Long Other [employer] Other 12-10-2021 14:45-0400 Systolic blood pressure 103 mm[Hg] Bret Long Other [employer] Other 11-27-2021 14:01-0400 Body temperature 98.4 [degF] Wiley Rice DO Work Phone: [employer] 11-27-2021 14:01-0400 Body weight 74.84 kg Wiley Rice DO Work Phone: [employer] 11-27-2021 14:01-0400 Diastolic blood pressure 64 mm[Hg] Wiley Rice DO Work Phone: [employer] 11-27-2021 14:01-0400 Heart rate 98 /min Wiley Rice DO Work Phone: [employer] 11-27-2021 14:01-0400 Systolic blood pressure 121 mm[Hg] Wiley Rice DO Work Phone: [employer] 12-05-2020 19:26-0400 Heart rate 106 /min Ajmes Breece PA-C Work Phone: [facility] 12-05-2020 19:25-0400 Body temperature 98.29 [degF] James Breece PA-C Work Phone: [facility] 12-05-2020 19:25-0400 Body weight 97.98 kg James Breece PA-C Work Phone: [facility] 12-05-2020 19:25-0400 Diastolic blood pressure 86 mm[Hg] James Romeroece PA-C Work Phone: [facility] 12-05-2020 19:25-0400 Respiratory rate 16 /min James Romeroece PA-C Work Phone: [facility] 12-05-2020 19:25-0400 SaO2% (BldA) [Mass fraction] 97 % James Romeroece PA-C Work Phone: [facility] 12-05-2020 19:25-0400 Systolic blood pressure 126 mm[Hg] James Romeroece PA-C Work Phone: [facility] Encounters Encounter Date Encounter Type Care Provider Facility Start: 06-21-2024 End: 06-21-2024 Bamboo flowsheet Little LOWRY Work Phone: [facility] Start: 06-21-2024 End: 06-21-2024 Bamboo flowsheet Little LOWRY Work Phone: [facility] Start: 06-21-2024 End: 06-21-2024 Office outpatient visit 15 minutes Little LOWRY Work Phone: [facility] Comment on above: Third trimester preg lenin; 33 weeks gestation of Start: 06-07-2024 End: 06-07-2024 Bamboo flowsheet Berto Luis DO Work Phone: [facility] Start: 06-07-2024 End: 06-07-2024 Bamboo flowsheet Berto Luis DO Work Phone: [facility] Start: 06-07-2024 End: 06-07-2024 ambulatory BERTO LUIS Not Available Start: 06-07-2024 End: 06-07-2024 Office outpatient visit 15 minutes Berto Luis DO Work Phone: [facility] Comment on above: 31 weeks gestation o f ; Third trimester ; Gastroesophageal reflux in Start: 05-24-2024 End: 05-24-2024 Office outpatient visit 15 minutes Little LOWRY Work Phone: [facility] Comment on above: Third trimester preg lenin; 29 weeks gestation of ; Upper respiratory tract infection, unspecified type Start: 05-24-2024 End: 05-24-2024 ambulatory LITTLE CHRISTIE [...] 15 minutes Berto Luis DO Work Phone: [facility] [...] [facility] Start: 03-14-2024 End: 03-14-2024 Bamboo flowsheet Berto Luis DO Work Phone: [facility] Start: 03-14-2024 End: 03-14-2024 Bamboo flowsheet Berto Luis DO Work Phone: [facility] Start: 03-14-2024 End: 03-14-2024 Office outpatient visit 15 minutes Berto Luis DO Work Phone: [facility] Comment on above: Second trimester pre gnancy Start: 03-14-2024 End: 03-14-2024 ambulatory BERTO LUIS Not Available Start: 02-15-2024 End: 02-15-2024 ambulatory LITTLE SHAHNAZ Not Available Start: 01-20-2024 End: 01-20-2024 ambulatory BERTO LUIS Not Available Start: 01-01-2024 End: 01-01-2024 ambulatory LITTLE SHAHNAZ Not Available Start: 12-17-2023 End: 12-17-2023 ambulatory LITTLE SHAHNAZ Not Available Start: 02-27-2023 End: 02-28-2023 ambulatory Gary MORRIS Facility:[facility] Start: 02-27-2023 End: 02-27-2023 Patient encounter procedure Gary MORRIS [facility] Start: 02-23-2023 ambulatory Alexandr Bourgeois Facility:[facility] Start: 02-05-2023 ambulatory Gary MORRIS Facility:[facility] Start: 11-07-2022 End: 11-08-[address] HOMAR BELTRAN . Facility:[facility] Start: 08-14-2022 End: 08-14-[address] HOMAR BELTRAN . Facility:[facility] Start: 08-11-2022 End: 08-11-[address] HOMAR BELTRAN . Facility:[facility] Start: 07-16-[address] HOMAR BELTRAN . Facili ty:[facility] Start: 05-26-2022 End: 05-26-[address] HOAMR BELTRAN . Facility:[facility] Start: 05-22-2022 End: 05-22-2022 ambulatory ITA REYES Facility:[facility] Start: 04-24-2022 End: 04-25-[address] HOMAR BELTRAN . Facility:[facility] Start: 02-18-2022 ambulatory IWLEY HARPERE M~[id number] [facility] Start: 02-12-2022 ambulatory WILEYNigel HARPERE M~[id number] [facility] Start: 02-12-2022 End: 02-12-2022 Telemedicine consultation with patient Wiley Huffman Rice DO Work Phone: [facility] Comment on above: Anxiety (Primary Dx) Start: 01-19-2022 Refill Luis Dipalma D O Work Phone: [facility] Start: 01-19-2022 Refill Luis Dipalma D O Work Phone: [facility] Start: 01-08-2022 End: 01-08-2022 ambulatory WILEYNigel HARPREE M~[id number] [facility] Start: 01-08-2022 End: 01-08-2022 Office outpatient visit 25 minutes Wiley Huffman Rice DO Work Phone: [facility] Comment on above: Anxiety (Primary Dx) ; Hypotension, unspecified hypotension type Start: 01-08-2022 End: 01-08-2022 Patient encounter procedure Wiley M Rice DO Work Phone: [facility] Start: 12-11-2021 End: 12-11-2021 ambulatory WILEYNigel HARPERE M~[id number] [facility] Start: 12-10-2021 End: 12-10-2021 ambulatory Bret Long Other [employer] Other Start: 12-10-2021 Office outpatient ne w 45 minutes Bret Long [facility] Start: 11-27-2021 End: 11-27-2021 ambulatory WILEY WILEY M~[id number] YVONNE RICE [facility] Start: 11-27-2021 End: 11-27-2021 Office outpatient new 30 minutes Wiley Osorio DO Work Phone: [facility] Comment on above: Anxiety (Primary Dx) Start: 11-27-2021 End: 11-27-2021 Patient encounter procedure Wiley Osorio DO Work Phone: [facility] Start: 11-25-2021 Telephone encounter Dana Kinsey [facility] Start: 12-05-2020 End: 12-05-2020 ambulatory PHYSICIAN NO [facility] Start: 12-05-2020 End: 12-05-2020 Office outpatient new 20 minutes James Churchill PA-C Work Phone: [facility] Comment on above: Vaginal sore (Primar y Dx) Start: 02-19-2017 End: 02-19-2017 Emergency department patient visit [facility] Procedures Date Procedure Procedure Detail Performing Clinician Start: 06-21-2024 Urnls dip stick/tabl et rgnt non-auto w/o micrscp Little LOWRY Work Phone: Start: 06-07-2024 Urnls dip stick/tabl et rgnt non-auto w/o micrscp Berto Luis DO Work Phone: Start: 05-09-2024 Urnls dip stick/tabl et rgnt non-auto w/o micrscp Berto Luis DO Work Phone: Start: 04-11-2024 Urnls dip stick/tabl et rgnt non-auto w/o micrscp Little LOWRY Work Phone: Start: 03-14-2024 Urnls dip stick/tabl et rgnt non-auto w/o micrscp Berto Luis DO Work Phone: Start: 11-27-2021 Adult depression scr eening assessment Wiley Osorio DO Work Phone: Start: 12-05-2020 Urine test visual color cmprsn meths James Churchill PA-C Work Phone: Start: 02-19-2017 Ct angiography chest w/contrast/noncontrast KIM ENA Start: 02-19-2017 SALINE LOCK IV KIM SIMMONSDena SIBLEY Start: 02-19-2017 TELEMETRY MONITORING MA ZAK ENA Start: 02-19-2017 BASIC METABOLIC PANEL M DAT [place] Start: 02-19-2017 CBC WITH AUTO DIFFERENTIAL KIM ENA Start: 02-19-2017 TROPONIN KMI Howell Start: 02-19-2017 EKG 12-LEAD KIM Howell None (qualifier value) Henrik brothers LORETOJosafat Plan of Treatment Date Care Activity Detail Author Start: 07-04-2024 End: 07-04-2024 Patient encounter procedure 07/04/2024 11:50 AM EST Routine [facility] [address] [place] [id number] Little Christie, PA [address] [place] [address] [facility] Start: 06-21-2024 End: 06-21-2024 Patient encounter procedure 06/21/2024 1:20 PM EST Routine [facility] [address] [place] [id number] Little Christie PA [address] [place] [address] [facility] Start: 06-07-2024 End: 06-07-2024 Patient encounter procedure 06/07/2024 1:30 PM EST Routine [facility] [address] [place] [id number] Berto Smith DO [address] [place] [address] [facility] Start: 05-24-2024 End: 05-24-2024 Patient encounter procedure 05/24/2024 2:10 PM EST Routine [facility] [address] [facility] [place] [id number] Little Christie PA [address] [place] [address] Arrived [facility] Comment on above: Arrived Start: 05-23-2024 End: 05-23-2024 Patient encounter procedure 05/23/2024 1:50 PM EST Routine [facility] [address] [facility] [place] [phone] Little Christie PA [address] [place], [place] [id number] [facility] Start: 05-09-2024 End: 05-09-2025 US biophysical profile w non stress test US biophysical profile w non stress test Imaging Routine Second trimester 26 weeks gestation of History of miscarriage Expected: 05/09/2024 (Approximate), Expires: 05/09/2025 [facility] Work Phone: Comment on above: Expected: 05/09/2024 (Approximate), Expires: 05/09/2025 Start: 05-09-2024 End: 05-09-2025 US for [facility] Comment on above: Expected: 05/09/2024 (Approximate), Expires: 05/09/2025 Start: 05-09-2024 End: 05-09-2024 Patient encounter procedure [facility] Comment on above: Arrived Start: 04-11-2024 End: 04-11-2025 CBC panel - Blood by Automated count CBC Lab Routine Diabetes mellitus screening Expected: 04/11/2024 (Approximate), Expires: 04/11/2025 [facility] Work Phone: Comment on above: Expected: 04/11/2024 (Approximate), Expires: 04/11/2025 Start: 04-11-2024 End: 04-11-2025 Measurement of glucose 1 hour after glucose challenge for glucose tolerance test Glucose tolerance, 1 hour Lab Routine Diabetes mellitus screening Expected: 04/11/2024 (Approximate), Expires: 04/11/2025 [facility] Comment on above: Expected: 04/11/2024 (Approximate), Expires: 04/11/2025 Start: 04-11-2024 End: 04-11-2024 Patient encounter procedure [facility] Comment on above: Arrived Start: 03-14-2024 End: 03-14-2024 Patient encounter procedure 03/14/2024 11:20 AM EDT Routine [facility] [address] [place] [phone] Berto Smith, [address] [place] [address] Arrived [facility] Comment on above: Arrived Start: 03-06-2024 Influenza vaccination Influenza Vacc ine (#1) [facility] Start: 11-27-2022 Adolescent depressio n screening assessment Depression Screening [facility] Start: 03-06-2022 Influenza vaccination T [facility] Start: 02-07-2022 End: 02-07-2022 Patient encounter procedure 02/07/2022 Office Visit [facility] Wiley Osorio DO [address] [place] [phone] [facility] Start: 12-19-2021 End: 12-19-2021 Patient encounter procedure 12/19/2021 Office Visit [facility] Wiley Betnon DO [address] [phone] [facility] Start: 12-07-2021 COVID-19 Vaccine (3 - Booster for Moderna series) COVID-19 Vaccine (3 - Booster for Moderna series) [facility] Start: 11-27-2021 End: 11-27-2021 Patient encounter procedure 11/27/2021 Office Visit [facility] Wiley Benton DO [address] [phone] [facility] Start: 11-24-2021 Adolescent depressio n screening assessment Depression Screening [facility] Start: 11-24-2021 Hepatitis C screening Hepatitis C Sc reening [facility] Start: 11-24-2021 HIV screening HIV Screening [facility] Start: 11-24-2021 Social Influencers o f Health Screening Social Influencers of Health Screening [facility] Start: 03-06-2021 Influenza vaccination Sequenti al Influenza Vaccine (Season Ended) [facility] Start: 2017 Screening for malign ant neoplasm of cervix Cervical Cancer Screening: Pap Smear [facility] Start: 2015 DTaP,Tdap,and Td Vac cines (1 - Tdap) DTaP,Tdap,and Td Vaccines (1 - Tdap) [facility] Start: 2014 Hepatitis C screening Hepatitis C [facility] Start: 2011 HIV screening HIV Screening [facility] Start: 2008 COVID-19 Vaccine (1) COVID-19 Vaccin e (1) [facility] Start: 2008 Depression screening using PHQ-9 (Patient Health Questionnaire 9) score Depression Screening (PHQ9) [facility] Start: 2007 HPV Vaccines (1 - 2- dose series) HPV Vaccines (1 - 2-dose series) [facility] Start: 2007 Vaccination for april n papillomavirus HPV Vaccines (1 - 2-dose series) [facility] Start: 2001 COVID-19 Vaccine (1) COVID-19 Vaccin e (1) [facility] Start: 1999 History and physical examination, annual for health maintenance Wellness Visit [facility] Start: 1996 Screening for Chlamy marilee trachomatis Chlamydia Screening [facility] Start: 1996 Screening for malign ant neoplasm of cervix Pap Smear [facility] Start: 1996 Tetanus vaccination Tetanus: Every [address] [facility] Chlamydia trachomati s rRNA assay Chlamydia/GC/Trichomon as Amplified RNA Microbiology Routine Vaginal sore Ordered: 12/05/[address] [facility] Comment on above: Ordered: 12/05/2020 HSV by PCR Superfici al Site HSV by PCR Superficial Site Lab Routine Vaginal sore Ordered: 12/05/[address] [facility] Comment on above: Ordered: 12/05/2020 Neisseria gonorrhoea e nucleic acid detection Chlamydia/Gonorrhoeae Amplified RNA Microbiology Routine Vaginal sore Ordered: 12/05/[address] [facility] Comment on above: Ordered: 12/05/2020 Trichomonas vaginali s Amplified RNA Trichomonas vaginalis Amplified RNA Microbiology Routine Vaginal sore Ordered: 12/05/[address] [facility] Comment on above: Ordered: 12/05/2020 Immunizations Immunization Date Immunization Notes Care Provider Fa cility 07-09-2021 SARS-CoV-2 (COVID-19 ) mRNA-1273 vaccine Gary [facility] 06-08-2021 SARS-CoV-2 (COVID-19 ) mRNA-1273 vaccine Gary [facility] [place] 04-10-2011 influenza virus vaccine, unspecified formulation Bertokatrin Smith Work Phone: [facility] Payers Date Payer Category Payer Private Health Insurance [employer] [id number] 2021 Medicaid [id number] 2020 Medicaid [id number]. [id number] 2016 Unknown [id number] 2013 Unknown [id number] 1996 Unknown [id number] 2.16.840.1.698961.3.579.2. 903 1996 Unknown [id number] 2.16.840.1.097497.3.579.2. 1143 1996 Unknown [id number] 2.16.840.1.907364.3.579.2. 1143 1996 Unknown [id number] 2.16.840.1.062336.3.579.2. 1143 1996 Unknown [id number] 2.16.840.1.047163.3.579.2. 1143 1996 Unknown [id number] 2.16.840.1.428363.3.579.2. 1143 1996 Unknown [id number] 2.16.840.1.264784.3.579.2. 593 1996 Unknown [id number] 2.16.840.1.698749.3.579.2. 593 1996 Unknown [id number] 2.16.840.1.452521.3.579.2. 593 1996 Unknown [id number] 2.16.840.1.211678.3.579.2. 593 1996 Unknown [id number] 2.16.840.1.980876.3.579.2. 593 1996 Unknown [id number] 2.16.840.1.352320.3.579.2. 593 1996 Unknown [id number] 2.16.840.1.329392.3.579.2. 593 1996 Unknown [id number] 2.16.840.1.649250.3.579.2. 727 1996 Unknown [id number] 2.16.840.1.271496.3.579.2. 1286 1996 Unknown [id number] 2.16.840.1.049389.3.579.2. 1286 1996 Unknown [id number] 2.16.840.1.609283.3.579.2. 1259 1996 Unknown [id number] 2.16.840.1.582267.3.579.2. 9 1996 Unknown [id number] 2.16.840.1.873010.3.579.2. 9 1996 Unknown [id number] 2.16.840.1.650365.3.579.2. 9 1996 Unknown [id number] 2.16.840.1.987063.3.579.2. 9 1996 Unknown [id number] 2.16.840.1.793317.3.579.2. 1258 1996 Unknown [id number] 2.16.840.1.892947.3.579.2. 9 1996 Unknown [id number] 2.16.840.1.938815.3.579.2. 1258 1996 Unknown [id number] 2.16.840.1.411644.3.579.2. 1259 1960 Unknown [id number] 2.16.840.1.696288.3.579.2. 727 1959 Medicaid [id number] 1959 Self-pay 1959 Unknown [id number] 1959 Unknown [id number] 1959 Unknown [id number] Unknown [id number] 2.16.840.1.994336.3.579.2. 531 Social History Date Type Detail Facility Start: 12-05-2020 End: 02-27-2023 Tobacco smoking status NHIS Never smoker [facility] Start: 12-05-2020 End: 11-27-2021 Tobacco use and exposure Never used [facility] Start: 12-05-2020 Alcohol intake Current drinke r of alcohol (finding) [facility] Start: 12-05-2020 End: 11-27-2021 History SDOH Alcohol Frequency [address] [facility] Start: 12-05-2020 Alcohol Comment occ [facility] Start: 1996 Sex Assigned At Not on file [facility] Start: 11-17-2021 End: 02-12-2022 Exposure to SARS-CoV-2 (event) Not sure [facility] Tobacco smoking stat [facility] Tobacco smoking consumption unknown [facility] Start: 11-27-2021 End: 05-24-2024 Alcohol intake Lifetime non-drinker (finding) [facility] Start: 1995 Sex Assigned At Female T [facility] Start: 12-17-2023 Sex Assigned At F [facility] Tobacco smoking status Never [facility] [place] Start: 03-28-2023 Tobacco smoking stat [facility]-smoker [facility] History of tobacco use Current smoker [facility] History of tobacco use Cigarette Smoker [facility] Start: 12-17-2023 History of Social function [facility] Start: 11-17-2023 [facility] Start: 01-19-2023 Gender identity Identifies as female gender (finding) [facility] Functional Status Date Assessment Result Facility 02-27-2023 Functional Status N/A [facility] Clinical Notes 12-05-2020 to 06-21-2024 ESSENCE Haley - 06/21/2024 1:20 PM Zohreh Bradley LPN - 06/07/2024 1:20 PM ESSENCE Mahan - 05/24/2024 2:10 PM Maria Eugenia Hein MA - 05/09/2024 11:30 AM ESSENCE Mahan - 04/11/2024 10:30 AM EDT Note Date & Type Note Facility 06-21-2024 History of Present illness Narrative Reason for [...] nursing note reviewed. Exam conducted with a sealer aircraft present. Vitals: Estimated body mass index is 35.61 kg/m as calculated from the following: Height as of 02/02/23: 5' 5 . Weight as of this encounter: 214 lb. BP: 116/72 Patient's last menstrual period was 11/03/2023. ASSESSMENT & PLAN ICD-10-CM 1. Third trimester Z34.93 POCT urinalysis dipstick manually resulted 2. 33 weeks gestation of Z3A.33 Return OB: Patient presents today for a routine obstetrics appointment. Patient is currently 33w0d . Patient states she is doing well but has complaints of being tired due to current and continuous left hip pain. Patient has verbalizes frequent movement. labor precautions was discussed/given and patient was instructed to perform kick counts three times a day. Orders Placed This Encounter Procedures POCT urinalysis dipstick manually resulted Patient will have IOL on 08/03/24. Follow Up: Patient is to return to office in 2 week for routine OB appointment. Documented by Shalonda Tse LPN on behalf of: Little Christie PA-C documented in this encounter [facility] 06-07-2024 History of Present illness Narrative Reason [...] nursing note reviewed. Exam conducted with a sealer aircraft present. Vitals: Estimated body mass index is [...] by Mae Bradley LPN on behalf of: Berto Smith DO documented in this encounter [facility] 05-24-2024 History of Present illness Narrative Reason for Appointment: Patient ID: Leslie Ford is a 29 y.o. female who presents for Routine Visit Patient presents today for Return OB appointment. MEDICATIONS Current Outpatient Medications Medication Instructions aspirin 81 mg, Oral, Daily RT azithromycin (Zithromax Z-Milton) 250 MG tablet As directed omeprazole (PRILOSEC) 20 mg, Oral, Daily before [...] reviewed. Vitals: Estimated body mass index is 33.75 kg/m as calculated from the following: Height as of 02/02/23: 5' 5 . Weight as of this encounter: 202 lb 12.8 oz. BP: 108/70 Patient's last menstrual period was 11/03/2023. ASSESSMENT & PLAN ICD-10-CM 1. Third trimester Z34.93 2. 29 weeks gestation of Z3A.29 3. Upper respiratory tract infection, unspecified type J06.9 azithromycin (Zithromax Z-Milton) 250 MG tablet Return OB: Patient presents today for a routine obstetrics appointment. Patient is currently 29w0d . Patient states she is doing well but has complaints of being tired due to current . Patient has verbalizes frequent movement. labor precautions was discussed/given and patient was instructed to perform kick counts three times a day. No orders of the defined types were placed in this encounter. Follow Up: Patient is to return to office in 2 week for routine OB appointment. Documented by ESSENCE Haley on behalf of: ESSENCE Haley documented in this encounter [facility] 05-09-2024 History of Present illness Narrative Reason [...] nursing note reviewed. Exam conducted with a sealer aircraft present. Vitals: Estimated body mass index is [...] Berto Smith DO documented in this encounter [facility] 04-11-2024 History of Present illness Narrative [...] of: ESSENCE Haley documented in this encounter [facility] 03-14-2024 History of Present illness Narrative Reason for Appointment: Patient ID: Leslie Ford is a 28 y.o. female who presents for Routine Visit Patient presents today for Return OB appointment. MEDICATIONS Current Outpatient Medications Medication Instructions omeprazole (PRILOSEC) 20 mg, Oral, Daily before breakfast, Do not crush or chew. ondansetron ODT (ZOFRAN-ODT) 4 mg, Oral, Every 8 hours PRN Vit-Fe Fumarate-FA ( Plus/Iron) 27-1 MG tablet 1 tablet, Oral, Daily promethazine (PHENERGAN) 12.5 mg, Oral, Every 6 hours PRN, Take 1 tablet by mouth every 6 hours as needed for nausea. ALLERGIES No Known Allergies PROBLEMS Active Ambulatory [...] nursing note reviewed. Exam conducted with a sealer aircraft present. Vitals: Estimated body mass index is 28.62 kg/m as calculated from the following: Height as of 02/02/23: 5' 5 . Weight as of this encounter: 172 lb. BP: 118/74 Patient's last menstrual period was 11/03/2023. ASSESSMENT & PLAN ICD-10-CM 1. Second trimester Z34.92 POCT urinalysis dipstick manually resulted Patient presents today for a routine obstetrics appointment. Patient is currently 18w6d with a Estimated Date of Delivery: 08/09/24. Patient to return to clinic in 4 weeks for routine OB appointment. Documented by Shalonda Tse LPN on behalf of: Berto Smith DO documented in this encounter [facility] 02-27-2023 Note Chief Complaint consultation for [...] with excisional biopsy under local anesthesia at [facility]; call with problems/questions. Follow-up No qualifying [...] Recorded SARS-CoV-2 (COVID-19) mRNA-1273 vaccine 06/08/[address] [facility] Comment on above: Result Comment: Elec tronically Signed By: ALEXANDRA RANGEL, Gary Jackson\Date and Time Signed: 02/27/23 16:20 EDT 02-12-2022 History of Present illness Narrative Attempted to complete Mchart and patient was not online despite speaking to MA prior to appointment. Attempted to call on phone 3 separate times before noon with no answer. May reschedule at later date. documented in this encounter [facility] 01-08-2022 History of Present illness Narrative bp's [...] due to buspirone. documented in this encounter [facility] 12-10-2021 Evaluation note Encounter Date Diagnosis Assessment Notes Dec, Irritable bowel syndrome with diarrhea (ICD-10 - K58.0) Continue medications without change Dec, Epigastric pain (ICD-10 - R10.13) Dec, Chronic nausea (ICD-10 - R11.0) Dec, Family history of carcinoma in situ of anal canal (ICD-10 - Z84.89) Dec, Other Continue Zofran prn Pt to call if symptoms worsen [employer] Other 05-25-2022 History of Present illness Narrative* Wiley Osorio DO - 11/27/2021 2:00 PM EDT Subjective Patient ID: Leslie Ford is a 26 y.o. female. Chief Complaint Patient presents with [facility] 26 y.o. female presents to [facility]. History of anxiety and [...] it ( July 2017) documented [facility] [id number] History of Present illness Narrative* Dana Rosario [...] like me to do? documented in this encounterKindred [id number] History of Present illness Narrative* James Churchill PA-C - 12/05/2020 8:22 PM EDT Images from the original note were not included. Patient Name: [facility] Location: [place] [id number] Date Of : Date Of Visit: 1995 12/05/2020 MRN# Provider: [id number] James Churchill PA-C Chief Complaint Patient presents [...] urine from irritatingthe sores. ? Take an rcnl-lqp-psagpzd pain medicine, such as acetaminophen (Tylenol), ibuprofen [...] Log into your personal health record on [email or web address] and enter E579 in the Education box to learn more about Genital Herpes: Care Instructions. Current as of: August 31, 2019 Content Version: 12.8 [employer]. Care instructions adapted under license by your healthcare professional. If you have questions about a medical condition or this instruction, always ask your healthcare professional. [employer] disclaims any warranty or liability for your use of this information. documented in this [id number] Instructions* Patient Instructions* James Churchill PA-C - [...] urine from irritatingthe sores. ? Take an ezet-udr-iogeobq pain medicine, such as acetaminophen (Tylenol), ibuprofen [...] Log into your personal health record on [email or web address] and enter E579 in the Education box to learn more about Genital Herpes: Care Instructions. Current as of: August 31, 2019 Content Version: 12.8 [employer]. Care instructions adapted under license by your healthcare professional. If you have questions about a medical condition or this instruction, always ask your healthcare professional. [employer] disclaims any warranty or liability for your use of this information. [facility] No data available for this section [facility]* Diagnosis Vaginal sore- Primary documented in this encounter [facility]* Diagnosis Anxiety- Primary Anxiety state, unspecified [facility] Diagnosis Anxiety- Primary Anxiety state, unspecified Hypotension, unspecified hypotension type [facility] Diagnosis Anxiety- Primary Anxiety state, unspecified [facility]* Diagnosis Second trimester state, incidental 22 weeks gestation of Diabetes mellitus screening Screening for diabetes mellitus [facility] Diagnosis Second trimester state, incidental 26 weeks gestation of History of miscarriage Personal history of other genital system and obstetric disorders [facility]* Diagnosis 31 weeks gestation of Third trimester state, incidental Gastroesophageal reflux in [facility]* Diagnosis Third trimester state, incidental 33 weeks gestation of [facility]* Diagnosis Second trimester state, incidental [facility]* Diagnosis Third trimester state, incidental 29 weeks gestation of Upper respiratory tract infection, unspecified type [facility] Narrative - Reported* Type Description Date Medical History [facility] [employer] Other Hospital Discharge instructions No data available [...] Documents on File Type Date Recorded 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 Advance Directives and Living Will Documents on File Type Date Recorded 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 Power of Bursar Additional Source Comments INFORMATION SOURCE (unrecogn ized section and content) DATE CREATED AUTHOR [facility] DATE CREATED AUTHOR AUTHOR'S ORGANIZ ATION 12/06/2020 [facility] DATE CREATED AUTHOR AUTHOR'S ORGANIZ ATION 02/16/2022 [facility] DATE CREATED AUTHOR AUTHOR'S ORGANIZ ATION 02/27/2022 [facility] DATE CREATED AUTHOR AUTHOR'S ORGANIZ ATION 11/14/2022 [facility] DATE CREATED AUTHOR AUTHOR'S ORGANIZ ATION 03/02/2023 [facility] DATE CREATED AUTHOR AUTHOR'S ORGANIZ ATION 07/05/2023 [facility] DATE CREATED AUTHOR AUTHOR'S ORGANIZ ATION 03/25/2024 [facility] DATE CREATED AUTHOR AUTHOR'S ORGANIZ ATION 06/09/2024 [facility] dical Specialists EPIC Reason for [...] Care Teams (unrecognized sec tion and content) Color Making Supervisor Relationship Specialty Start Date End Date Wiley Osorio, DO [address] [place] [phone] PCP - General Family Medicine 11/27/21 Color Making Supervisor Relationship Specialty Start Date End Date Lalito Osoriolenigel Huffman, DO [address] [phone] PCP - General Family Medicine 11/27/21 Color Making Supervisor Relationship Specialty Start Date End Date Lalito Osoriolenigel Huffman, DO [address] [place] [phone] PCP - General Family Medicine 11/27/21 Color Making Supervisor Relationship Specialty Start Date End Date Homar Beltran MD [address] [place] [address] PCP - General Family Medicine 01/20/23 Color Making Supervisor Relationship Specialty Start Date End Date Homar Beltran MD [address] [place] [address] PCP - General Family Medicine 01/20/23 Color Making Supervisor Relationship Specialty Start Date End Date Homar Beltran MD [address] [place] [address] PCP - General Family Medicine 01/20/23 Color Making Supervisor Relationship Specialty Start Date End Date Homar Beltran MD [address] [facility] [place] [address] PCP - General Family Medicine 01/20/23 Color Making Supervisor Relationship Specialty Start Date End Date Homar Beltran MD [address] [facility] [place] [address] PCP - General Family Medicine 01/20/23 Color Making Supervisor Relationship Specialty Start Date End Date Homar Beltran MD [address] [facility] [place] [address] PCP - General Family Medicine 01/20/23 Color Making Supervisor Relationship Specialty Start Date End Date Homar Beltran MD [address] [facility] [place] [address] PCP - General Family Medicine 01/20/23 Color Making Supervisor Relationship Specialty Start Date End Date Homar Beltran MD [address] [facility] [place] [address] PCP - General Family Medicine 01/20/23 Color Making Supervisor Relationship Specialty Start Date End Date Homar Beltran MD [address] [facility] [place] [address] PCP - General Family Medicine 01/20/23 Color Making Supervisor Relationship Specialty Start Date End Date Homar Beltran MD [address] [facility] [place] [address] PCP - General Family Medicine 01/20/23 FOR [...] BE BASED ON THE PRIMARY CLINICAL RECORDS. [facility] [employer] [facility]. provides no warranty or guarantee of the accuracy or completeness of information in this document.
[2024-06-24 07:36] VITALS: BP 129/77; PULSE 81
== END 2024-06-24 08:04 | disposition home or self-care (01) ==
LOC: FBCO 05:01 → FBC 07:13
PROVIDERS: PCP Family Medicine; Visit Provider Obstetrics & Gynecology
DX: O26.893 Other specified pregnancy related conditions, third trimester (principal); Z87.59 Personal history of other complications of pregnancy, childbirth and the puerperium; Z3A.33 33 weeks gestation of pregnancy
CPT/HCPCS: 76815; 76818

== ENCOUNTER 2024-06-27 05:58 | Outpatient (OUT) | payer OTHER, SELFPAY ==
--- OUTSIDE RECORDS SUMMARY | 2024-06-27 06:03 | XMS_ITS | CCD ---
Author Organization [facility] Care Team Providers Care Gaming Surveillance Observer Name Role Phone KIM SUTHERLAND Unavailable Unavailable WILLY CONKLIN Unavailable Unavailable HOMAR BELTRAN Unavailable Unavailable HOMAR BELTRAN Unavailable Unavailable No, Physician Primary Care Provider Unavailsuman e FINN, PHYSICIAN Primary Care Unavailable JAMES ALCAZAR Attending Unavailable Unavailable Primary Care Provider Unavailsuman e Wiley Osorio DO Primary Care Provider Bret Long Unavailable RICE RICE, WILEY WILEY M~[phone] Attending Unavailable RICE RICE, WILEY WILEY M~[id number] Primary Ca re Unavailable RICE RICE, WILEY WILEY M~[id number] Attending Unavailable RICE RICE, WILEY WILEY M~[id number] Primary Ca re Unavailable RICE RICE, WILEY WILEY M~[id number] Attending Unavailable RICE RICE, WILEY WILEY M~[id number] Primary Ca re Unavailable RICE RICE, WILEY WILEY M~[id number] Attending Unavailable RICE RICE, WILEY WILEY M~[id number] Primary Ca re Unavailable RICE RICE, WILEY WILEY M~[id number] Referring Unavailable RICE RICE, WILEY WILEY M~[id number] Primary Ca re Unavailable ITA REYES Admitting [...] Admitting Unavailab Homar Mcgowan Primary Care Unavailable KELIN SMITHY Dante Referring Unavailable HOMAR BELTRAN Primary Care Unavailable SENAIT MARTIN Attending Unavailable LUIS, BERTO Dante Referring Unavailable HOMAR EBLTRAN Primary Care Unavailable Homar Beltran MD Primary Care Provider [phone] SHAHNAZ, LITTLE Attending Unavailable LUIS, BERTO Attending Unavailable SHAHNAZ, LITTLE Attending Unavailable LUIS, BERTO Attending Unavailable SHAHNAZ, LITTLE Attending Unavailable LUIS, BERTO Attending Unavailable SHAHNAZ, LITTLE Attending Unavailable LUIS, BERTO Attending Unavailable SHAHNAZ, LITTLE Attending Unavailable Allergies Allergy Classification Reported Allergen(s) Allergy Type Date of Onset Reaction(s) Facility (1 source) No Known Medication Allergies; Translations: [No Known Medication Allergies] Propensity to adverse reactions (disorder) [facility] Repository Medications Current Medications Medication Drug [...] UA Negative Negative - 4(70) +++ mg/dL [facility] Blood, UA Negative Negative - 50 Angel Luis/mcL [facility] Clarity, UA Clear [facility] Color, UA Yellow [facility] Glucose, UA Negative Negative - 1999(110) ++++ mg/dL [facility] Interpretation and review of laboratory results Abnormal [facility] Ketones, UA Negative Negative - 160(16) ++++ mg/dL [facility] Leukocytes, UA Negative Negative - 500+++ Drew/mcL [facility] Nitrite, UA Negative Negative - Positive [facility] pH, UA 7 5 - 9 [facility] Protein, UA Positive Negative - 2000(20) ++++ mg/dL [facility] Comment on above: 30 Spec Grav, UA 1.02 1 - 1.03 [facility] Urobilinogen, UA 0.2 0.2 - 12 mg/dL [facility] Urinalysis macro (dipstick) panel (U)on 06-07-2024 Bilirubin, UA Negative Negative - 4(70) +++ mg/dL [facility] Blood, UA Negative Negative - 50 Angel Luis/mcL [facility] Clarity, UA Clear [facility] Color, UA Yellow [facility] Glucose, UA Negative Negative - 2000(110) ++++ mg/dL [facility] Interpretation and review of laboratory results Normal [facility] Ketones, UA Negative Negative - 160(16) ++++ mg/dL [facility] Leukocytes, UA Negative Negative - 500+++ Drew/mcL [facility] Nitrite, UA Negative Negative - Positive [facility] pH, UA 7 5 - 9 [facility] Protein, UA Negative Negative - 1999(20) ++++ mg/dL [facility] Spec Grav, UA 1.02 1 - 1.03 [facility] Urobilinogen, UA 0.2 0.2 - 12 mg/dL [facility] Urinalysis macro (dipstick) panel (U)on 05-09-2024 Bilirubin, UA Positive Negative - 4(70) +++ mg/dL [facility] Comment on above: small Blood, UA Negative Negative - 50 Angel Luis/mcL [facility] Clarity, UA Clear [facility] Color, UA Miryam [facility] Glucose, UA Negative Negative - 1999(110) ++++ mg/dL [facility] Interpretation and review of laboratory results Abnormal [facility] Ketones, UA Positive Negative - 160(16) ++++ mg/dL [facility] Comment on above: trace Leukocytes, UA Negative Negative - 500+++ Drew/mcL [facility] Nitrite, UA Negative Negative - Positive [facility] pH, UA 6 5 - 9 [facility] Protein, UA Positive Negative - 1999(20) ++++ mg/dL [facility] Comment on above: 30 mg Spec Grav, UA 1.03 1 - 1.03 [facility] Urobilinogen, UA 0.2 0.2 - 12 mg/dL [facility] Urinalysis macro (dipstick) panel (U)on 04-11-2024 Bilirubin, UA Negative Negative - 4(70) +++ mg/dL [facility] Blood, UA Negative Negative - 50 Angel Luis/mcL [facility] Clarity, UA Clear [facility] Color, UA Yellow [facility] Glucose, UA Negative Negative - 1999(110) ++++ mg/dL [facility] Interpretation and review of laboratory results Normal [facility] Ketones, UA Negative Negative - 160(16) ++++ mg/dL [facility] Leukocytes, UA Negative Negative - 500+++ Drew/mcL [facility] Nitrite, UA Negative Negative - Positive [facility] pH, UA 6.5 5 - 9 [facility] Protein, UA Negative Negative - 1999(20) ++++ mg/dL [facility] Spec Grav, UA 1.020 1 - 1.03 [facility] Urobilinogen, UA 0.2 0.2 - 12 mg/dL [facility] Urinalysis macro (dipstick) panel (U)on 03-14-2024 Bilirubin, UA Negative Negative - 4(70) +++ mg/dL [facility] Blood, UA Negative Negative - 50 Angel Luis/mcL [facility] Clarity, UA Clear [facility] Color, UA Yellow [facility] Glucose, UA Negative Negative - 1999(110) ++++ mg/dL [facility] Interpretation and review of laboratory results Normal [facility] Ketones, UA Negative Negative - 160(16) ++++ mg/dL [facility] Leukocytes, UA Negative Negative - 500+++ Drew/mcL [facility] Nitrite, UA Negative Negative - Positive [facility] pH, UA 7.0 5 - 9 [facility] Protein, UA Negative Negative - 1999(20) ++++ mg/dL [facility] Spec Grav, UA 1.020 1 - 1.03 [facility] Urobilinogen, UA 0.2 0.2 - 12 mg/dL [facility] Facesheeton 03-02-2023 Facesheet [id number] CD:127 Normal [facility] Ambulatory Visit Summaryon 0 02-27-2023 Ambulatory [...] History of pre-eclampsia Insomnia Migraines Overweight Normal [facility] RAD - Ultrasound Reporton RAD - Ultrasound Report [id number] D:127 Normal [facility] Physician Referralon 023 Physician Referral [id number] D:127 Normal [facility] INSULINon 11-08-2022 Insulin 7.7 uIU/mL Normal 2.6-24.9 [facility] Comment on above: Performed By: #### V AMAURY, IRON #### [facility] [address] [place] [address] Dr. Chucho Jesus CBC AUTO DIFFon 11-07-2022 BASO # 0.0 103/ul Normal 0.0-0.1 [facility] Comment on above: Performed By: #### V AMAURY, IRON #### [facility] [address] [place] [address] Dr. Chucho Jesus Basophils/100 WBC (Bld) 0.6 % Normal 0.2-2.0 [facility] Comment on above: Performed By: #### V AMAURY, IRON #### [facility] [address] [place] [address] Dr. Chucho Jesus EO # 0.1 103/ul Normal 0.0-0.7 [facility] Comment on above: Performed By: #### V AMAURY, IRON #### [facility] [address] [place] [address] Dr. Chucho Jesus Eosinophils/100 WBC (Bld) 1.4 % Normal 0.9-7.0 [facility] Comment on above: Performed By: #### V AMAURY, IRON #### [facility] [address] [place] [address] Dr. Chucho Jesus Erythrocyte distribution width (RBC) [Ratio] 13.9 % Normal 11.0-15.0 [facility] Comment on above: Performed By: #### V ITAD, IRON #### [facility] [address] [place] [address] Dr. Chucho Jesus Hematocrit (Bld) [Volume fraction] 45.6 % Normal 36.0-48.0 [facility] Comment on above: Performed By: #### V ITAD, IRON #### [facility] [address] [place] [address] Dr. Chucho Jesus Hemoglobin (Bld) [Mass/Vol] 15.1 g/dL Normal 12.0-16.0 [facility] Comment on above: Performed By: #### V ITAD, IRON #### [facility] [address] [place] [address] Dr. Chucho Jesus IG # 0.01 10e3/ul Normal 0.00-0.03 [facility] Comment on above: Performed By: #### V ITAD, IRON #### [facility] [address] [place] [address] Dr. Chucho Jesus IG % 0.1 % Normal 0.0-0.5 [facility] Comment on above: Performed By: #### V ITAD, IRON #### [facility] [address] [place] [address] Dr. Chucho Jesus LYMPH # 1.9 103/ul Normal 1.2-3.8 [facility] Comment on above: Performed By: #### V ITAD, IRON #### [facility] [address] [place] [address] Dr. Chucho Jesus Lymphocytes/100 WBC (Bld) 26.3 % Normal 20.5-60.0 [facility] Comment on above: Performed By: #### V ITAD, IRON #### [facility] [address] [place] [address] Dr. Chucho Jesus MANUAL DIFF REQ NO Normal [facility] Comment on above: Performed By: #### V ITAD, IRON #### [facility] [address] [address] [address] Chucho Jesus MCH (RBC) [Entitic mass] 27.9 pg Normal 26.7-34.0 [facility] Comment on above: Performed By: #### V ITAD, IRON #### [facility] [address] [place] [address] Dr. Chucho Jesus MCHC (RBC) [Mass/Vol] 33.1 g/dL Normal 29.9-35.2 [facility] Comment on above: Performed By: #### V ITAD, IRON #### [facility] [address] [place] [address] Dr. Chucho Jesus MCV (RBC) [Entitic vol] 84.1 fL Normal 81.0-99.0 [facility] Comment on above: Performed By: #### V ITAD, IRON #### [facility] [address] [place] [address] Dr. Chucho Jesus MONO # 0.5 103/ul Normal 0.3-0.8 [facility] Comment on above: Performed By: #### V ITAD, IRON #### [facility] [address] [place] [address] Dr. Chucho Jesus Monocytes/100 WBC (Bld) 7.3 % Normal 1.7-12.0 [facility] Comment on above: Performed By: #### V ITAD, IRON #### [facility] [address] [place] [address] Dr. Chucho Jesus NEUT # 4.6 103/ul Normal 1.4-6.5 [facility] Comment on above: Performed By: #### V ITAD, IRON #### [facility] [address] [place] [address] Dr. Chucho Jesus Neutrophils/100 WBC (Bld) 64.3 % Normal 43.0-75.0 [facility] Comment on above: Performed By: #### V ITAD, IRON #### [facility] [address] [place] [address] Dr. Chucho Jesus Platelet mean volume (Bld) [Entitic vol] 10.9 fL Normal 9.5-13.5 [facility] Comment on above: Performed By: #### V ITAD, IRON #### [facility] [address] [address] [address] Chucho Jesus PLT 226 103/ul Normal 150-450 [facility] Comment on above: Performed By: #### V ITAD, IRON #### [facility] [address] [address] [address] Chucho Jesus RBC 5.42 106/ul Critically high 4.20-5.40 [facility] Comment on above: Performed By: #### V ITAD, IRON #### [facility] [address] [place] [address] Dr. Chucho Jesus WBC 7.2 103/ul Normal 4.0-11.0 [facility] Comment on above: Performed By: #### V ITAD, IRON #### [facility] [address] [place] [address] Dr. Chucho Jesus FREE THYROXINE INDEX T7on FTI 3.29 Normal 1.30-4.50 [facility] Comment on above: Performed By: #### V ITAD, IRON #### [facility] [address] [place] [address] Dr. Chucho Jesus T3U 35.0 % Normal 30.0-39.0 [facility] Comment on above: Performed By: #### V ITAD, IRON #### [facility] [address] [place] [address] Dr. Chucho Jesus T4 [Mass/Vol] 9.40 ug/dL Normal 4.80-13.90 [facility] Comment on above: Performed By: #### V ITAD, IRON #### [facility] [address] [place] [address] Dr. Chucho Jesus GLYCOHEMOGLOBIN A1Con 2022 ADA RECOMMENDATION SEE BELOW Normal [facility] Comment on above: Result Comment: ADA RECOMMENDED LIMIT 4.0 - 6.0 ADA THERAPEUTIC TARGET < 7.0 ACTION SUGGESTED > 7.0 Performed By: #### A 1C #### [facility] [address] [address] [address] Chucho Jesus Glucose [Mass/Vol] 94 mg/dL Normal [facility] Comment on above: Performed By: #### A 1C #### [facility] [address] [address] [address] Chucho Jesus HbA1c (Bld) [Mass fraction] 4.9 % Normal 4.5-6.2 [facility] Comment on above: Performed By: #### A 1C #### [facility] [address] [address] [address] Chucho Jesus IRONon 11-07-2022 Iron [Mass/Vol] 81.0 ug/dL Normal 50.0-170.0 [facility] Comment on above: Performed By: #### V ITAD, IRON #### [facility] [address] [place] [address] Dr. Chucho Jesus LIPID PROFILEon 11-07-2022 CHOL-HDL RATIO NORM SEE BELOW Normal [facility] Comment on above: Result Comment: 3.3 - 4.4 LOW RISK 4.4 - 7.1 AVERAGE RISK 7.1 - 11.0 MODERATE RISK >11.0 HIGH RISK Performed By: #### V ITAD, IRON #### [facility] [address] [address] [address] Chucho Jesus Cholesterol [Mass/Vol] 126 mg/dL Normal <=200 [facility] Comment on above: Performed By: #### V ITAD, IRON #### [facility] [address] [address] [address] Chucho Jesus Cholesterol in HDL [Mass/Vol] 38 mg/dL Critically low 40-60 [facility] Comment on above: Performed By: #### V ITAD, IRON #### [facility] [address] [address] [address] Chucho Jesus Cholesterol in LDL [Mass/Vol] 79.4 mg/dL Normal [facility] Comment on above: Performed By: #### V ITAD, IRON #### [facility] [address] [address] [address] Chucho Jesus Cholesterol.total/C holesterol in HDL [Mass ratio] 3.3 {ratio} Normal [facility] Comment on above: Performed By: #### V ITAD, IRON #### [facility] [address] [address] [address] Chucho Jesus HDL NORMAL > or = 60 mg/dl - LO W CARDIOVASCULAR RISK <40 mg/dl - HIGH CARDIOVASCULAR RISK Normal [facility] Comment on above: Performed By: #### V ITAD, IRON #### [facility] [address] [address] [address] Chcuho Jesus LDL CALC NORMAL SEE BELOW Normal [facility] Comment on above: Result Comment: <100 mg/dl OPTIMAL 100 - 129 mg/dl NEAR OR ABOVE OPTIMAL 130 - 159 mg/dl BORDERLINE HIGH 160 - 189 mg/dl HIGH >190 mg/dl VERY HIGH Performed By: #### V ITAD, IRON #### [facility] [address] [address] [address] Chucho Jesus Triglyceride [Mass/Vol] 43 mg/dL Normal <=150 [facility] Comment on above: Performed By: #### V ITAD, IRON #### [facility] [address] [address] [address] Chucho Jesus VLDL CALC 8.6 mg/dL Normal [facility] Comment on above: Performed By: #### V ITAD, IRON #### [facility] [address] [address] [address] Chucho Jesus PROF 14(COMP METB)on 023 Albumin [Mass/Vol] 4.2 g/dL Normal 3.4-5.0 [facility] Comment on above: Performed By: #### V ITAD, IRON #### [facility] [address] [address] [address] Chucho Jesus Albumin/Globulin [Mass ratio] 1.1 {ratio} Normal [facility] Comment on above: Performed By: #### V ITAD, IRON #### [facility] [address] [address] [address] Chucho Jesus ALP [Catalytic activity/Vol] 93 U/L Normal 46-116 [facility] Comment on above: Performed By: #### V ITAD, IRON #### [facility] [address] [address] [address] Chucho Jesus ALT [Catalytic activity/Vol] 16 U/L Normal 14-59 [facility] Comment on above: Performed By: #### V ITAD, IRON #### [facility] [address] [address] [address] Chucho Jesus Anion gap [Moles/Vol] 14.3 mmol/L Normal [facility] Comment on above: Performed By: #### V ITAD, IRON #### [facility] [address] [address] [address] Chucho Jesus AST [Catalytic activity/Vol] 16 U/L Normal 15-37 [facility] Comment on above: Performed By: #### V ITAD, IRON #### [facility] [address] [address] [address] Chucho Jesus Bilirubin [Mass/Vol] 1.0 mg/dL Normal 0.2-1.0 [facility] Comment on above: Performed By: #### V ITAD, IRON #### [facility] [address] [address] [address] Chucho Jesus Calcium [Mass/Vol] 9.4 mg/dL Normal 8.5-10.1 [facility] Comment on above: Performed By: #### V ITAD, IRON #### [facility] [address] [address] [address] Chucho Jesus Chloride [Moles/Vol] 103 mmol/L Normal 98-107 [facility] Comment on above: Performed By: #### V ITAD, IRON #### [facility] [address] [address] [address] Chucho Jesus CO2 [Moles/Vol] 24.9 mmol/L Normal 21.0-32.0 [facility] Comment on above: Performed By: #### V ITAD, IRON #### [facility] [address] [address] [address] Chucho Jesus Creatinine [Mass/Vol] 0.68 mg/dL Normal 0.55-1.02 [facility] Comment on above: Performed By: #### V ITAD, IRON #### [facility] [address] [address] [address] Chucho Jesus EGFR-AF CROATIAN >60 Normal >=60 [facility] Comment on above: Performed By: #### V ITAD, IRON #### [facility] [address] [address] [address] Chucho Jesus EGFR-NON AF CROATIAN >60 Normal >=60 [facility] Comment on above: Performed By: #### V ITAD, IRON #### [facility] [address] [address] [address] Chucho Jesus Globulin (S) [Mass/Vol] 3.9 g/dL Normal [facility] Comment on above: Performed By: #### V ITAD, IRON #### [facility] [address] [address] [address] Chucho Jesus Glucose [Mass/Vol] 89 mg/dL Normal 74-106 [facility] Comment on above: Performed By: #### V ITAD, IRON #### [facility] [address] [address] [address] Chucho Jesus Potassium [Moles/Vol] 4.2 mmol/L Normal 3.5-5.1 [facility] Comment on above: Performed By: #### V ITAD, IRON #### [facility] [address] [address] [address] Chucho Jesus Protein [Mass/Vol] 8.1 g/dL Normal 6.4-8.2 [facility] Comment on above: Performed By: #### V ITAD, IRON #### [facility] [address] [address] [address] Chucho Jesus Sodium [Moles/Vol] 138 mmol/L Normal 136-145 [facility] Comment on above: Performed By: #### V ITAD, IRON #### [facility] [address] [address] [address] Chucho Jesus Urea nitrogen [Mass/Vol] 9.0 mg/dL Normal 7.0-18.0 [facility] Comment on above: Performed By: #### V ITAD, IRON #### [facility] [address] [address] [address] Chucho Jesus Urea nitrogen/Creatinine [Mass ratio] 13.2 mg/mg Normal [facility] Comment on above: Performed By: #### V ITAD, IRON #### [facility] [address] [address] [address] Chucho Jesus TSHon 11-07-2022 TSH 1.668 uIU/mL Normal 0.358-3.740 [facility] Comment on above: Performed By: #### V ITAD, IRON #### [facility] [address] [address] [address] Chucho Jesus Covid-19 PCR (CVDTBH)on SARS-CoV-2 (COVID-19) RNA DMITRY+probe Ql (Unsp spec) Not detected Normal NOT DETECTED [facility] Comment on above: Result [...] for this test is supported by the [employer] and Human Service's declaration that [...] Performed By: #### V ITAD, IRON #### [facility] [address] [place], [place] [address] Dr. Chucho Jesus Covid-19 PCR (CVDTBH)on SARS-CoV-2 (COVID-19) RNA DMITRY+probe Ql (Unsp spec) Not detected Normal NOT DETECTED [facility] Comment on above: Result [...] for this test is supported by the [place] of Health and Human Service's declaration that [...] used). Performed By: #### C VDTB #### [facility] [address] [place] [address] Dr. Chucho Jesus INFLUENZA A AND B [facility] 08-11 [facility] SEE BELOW Normal [facility] Comment on above: Result Comment: Nega tive for Flu A protein angiten. Infection due to Flu A cannot be ruled out. Flu A angiten in the sample may be below the detection limit of the test. Performed By: #### I NFLUAB #### [facility] [address] [place] [address] Dr. Chucho Jesus [facility] SEE BELOW Normal [facility] Comment on above: Result Comment: Nega tive for Flu B protein antigen. Infection due to Flu B cannot be ruled out. Flu B antigen in the sample may be below the detection limit of the test. Performed By: #### I NFLUAB #### [facility] [address] [place] [address] Dr. Chucho Jesus INFLUENZA A AG Negative Normal NEGATIVE SEE COMMENT [facility] Comment on above: Performed By: #### I NFLUAB #### [facility] [address] [place] [address] Dr. Chucho Jesus INFLUENZA B AG Negative Normal NEGATIVE SEE COMMENT [facility] Comment on above: Performed By: #### I NFLUAB #### [facility] [address] [address] [address] Chucho Jesus Covid-19 PCR ([facility])on 05-07 SARS-CoV-2 (COVID-19) RNA DMITRY+probe Ql (Unsp spec) Not detected Normal NOT DETECTED [facility] Comment on above: Result [...] for this test is supported by the [place] of Health and Human Service's declaration that [...] Performed By: #### V ITAD, IRON #### [facility] [address] [place] [address] Dr. Chucho Jesus INFLUENZA A AND B AGon 05-26 [facility] SEE BELOW Normal [facility] Comment on above: Result Comment: Nega tive for Flu A protein angiten. Infection due to Flu A cannot be ruled out. Flu A angiten in the sample may be below the detection limit of the test. Performed By: #### V ITAD, IRON #### [facility] [address] [address] [address] [facility] Normal [facility] Comment on above: Result Comment: Nega tive for Flu B protein antigen. Infection due to Flu B cannot be ruled out. Flu B antigen in the sample may be below the detection limit of the test. Performed By: #### V ITAD, IRON #### [facility] [address] [address] [address] Chucho Jesus INFLUENZA A AG Negative Normal NEGATIVE SEE COMMENT [facility] Comment on above: Performed By: #### V ITAD, IRON #### [facility] [address] [place] [address] Dr. Chucho Jesus INFLUENZA B AG Negative Normal NEGATIVE SEE COMMENT [facility] Comment on above: Performed By: #### V ITAD, IRON #### [facility] [address] [address] [address] Chucho Jesus INTERNAL CONTROLS Within Normal Limits Normal Wi thin Normal Limits [facility] Comment on above: Performed By: #### V ITAD, IRON #### [facility] [address] [place] [address] Dr. Chucho Jesus ER URINE PROFILEon 2 Bilirubin Ql (U) Negative Normal NEGATIVE [facility] Comment on above: Performed By: #### V ITAD, IRON #### [facility] [address] [place] [address] Dr. Chucho Jesus Clarity (U) CLEAR Normal CLEAR [facility] Comment on above: Performed By: #### V ITAD, IRON #### [facility] [address] [place] [address] Dr. Chucho Jesus Color (U) YELLOW Normal YELLOW [facility] Comment on above: Performed By: #### V ITAD, IRON #### [facility] [address] [place] [address] Dr. Chucho BAHENA A micrscopic examination will be performed if indicated. Normal [facility] Comment on above: Performed By: #### V ITAD, IRON #### [facility] [address] [address] [address] Chucho Jesus Glucose Ql (U) Negative Normal NEGATIVE [facility] Comment on above: Performed By: #### V ITAD, IRON #### [facility] [address] [place] [address] Dr. Chucho Jesus Hemoglobin Ql (U) Negative Normal NEGATIVE [facility] Comment on above: Performed By: #### V ITAD, IRON #### [facility] [address] [place] [address] Dr. Chucho Jesus Ketones Ql (U) >=80 Abnormal NEGATIVE [facility] Comment on above: Performed By: #### V ITAD, IRON #### [facility] [address] [place] [address] Dr. Chucho Jesus LEUKOCYTES Negative Normal NEGATIVE [facility] Comment on above: Performed By: #### V ITAD, IRON #### [facility] [address] [place] [address] Dr. Chucho Jesus Nitrite Ql (U) Negative Normal NEGATIVE [facility] Comment on above: Performed By: #### V ITAD, IRON #### [facility] [address] [place] [address] Dr. Chucho Jesus pH (U) 6.0 [pH] Normal 5-9 [facility] Comment on above: Performed By: #### V ITAD, IRON #### [facility] [address] [place] [address] Dr. Chucho Jesus Protein (U) [Mass/Vol] 100 mg/dL Abnormal NEGATIVE/ TRACE [facility] Comment on above: Performed By: #### V ITAD, IRON #### [facility] [address] [place] [address] Dr. Chucho Jesus SPEC GRAVITY >=1.030 Abnormal 1.005-<=1.025 [facility] Comment on above: Performed By: #### V ITAD, IRON #### [facility] [address] [place] [address] Dr. Chucho Jesus UR MICRO IND INDICATED Normal [facility] Comment on above: Performed By: #### V ITAD, IRON #### [facility] [address] [place] [address] Dr. Chucho Jesus Urobilinogen Qn (U) 0.2 {[place]helsea'U}/dL Normal 0.2 - 1. 0 [facility] Comment on above: Performed By: #### V ITAD, IRON #### [facility] [address] [place] [address] Dr. Chucho Jesus URon 05-22-2022 , QUAL Negative Normal NEGATIVE [facility] Comment on above: Performed By: #### V ITAD, IRON #### [facility] [address] [place] [address] Dr. Chucho Jesus URINE MICROSCOPIC ONLYon BACTERIA NONE SEEN Normal NONE SEEN [facility] Comment on above: Performed By: #### V ITAD, IRON #### [facility] [address] [address] [address] Chucho Jesus Bacteria identified Cx Nom (U) NOT INDICATED Normal [facility] Comment on above: Performed By: #### V ITAD, IRON #### [facility] [address] [place] [address] Dr. Chucho Jesus CAST NONE SEEN Normal NONE SEEN [facility] Comment on above: Performed By: #### V ITAD, IRON #### [facility] [address] [place] [address] Dr. Chucho Jesus Crystals LM Nom (Urine sed) NONE SEEN Normal NONE SEEN [facility] Comment on above: Performed By: #### V ITAD, IRON #### [facility] [address] [place] [address] Dr. Chucho Jesus Epithelial cells LM Ql (Urine sed) FEW Abnormal NONE SEEN /RARE [facility] Comment on above: Performed By: #### V ITAD, IRON #### [facility] [address] [place] [address] Dr. Chucho Jesus MUCOUS MODERATE Abnormal NONE SEEN [facility] Comment on above: Performed By: #### V ITAD, IRON #### [facility] [address] [place] [address] Dr. Chucho Jesus RBC NONE SEEN Abnormal 0-2 [facility] Comment on above: Performed By: #### V ITAD, IRON #### [facility] [address] [place] [address] Dr. Chucho Jesus WBC NONE SEEN Normal NONE SEEN [facility] Comment on above: Performed By: #### V ITAD, IRON #### [facility] [address] [place] [address] Dr. Chucho Jesus XR LSPINE 2_3 VIEWSon [...] SHAINA CAMPOS Date: 2022-05-22 12:28 Normal [facility] INSULINon 04-25-2022 Insulin 10.4 uIU/mL Normal 2.6-24.9 [facility] Comment on above: Performed By: #### V ITAD, IRON #### [facility] [address] [place] [address] Dr. Chucho Jesus CBC AUTO DIFFon 04-24-2022 BASO # 0.0 103/ul Normal 0.0-0.1 [facility] Comment on above: Performed By: #### C BC #### [facility] [address] [place] [address] Dr. Chucho Jesus Basophils/100 WBC (Bld) 0.6 % Normal 0.2-2.0 [facility] Comment on above: Performed By: #### C BC #### [facility] [address] [place] [address] Dr. Chucho Jesus EO # 0.1 103/ul Normal 0.0-0.7 [facility] Comment on above: Performed By: #### C BC #### [facility] [address] [place] [address] Dr. Chucho Jesus Eosinophils/100 WBC (Bld) 1.8 % Normal 0.9-7.0 [facility] Comment on above: Performed By: #### C BC #### [facility] [address] [place] [address] Dr. Chucho Jesus Erythrocyte distribution width (RBC) [Ratio] 12.9 % Normal 11.0-15.0 [facility] Comment on above: Performed By: #### C BC #### [facility] [address] [place] [address] Dr. Chucho Jesus Hematocrit (Bld) [Volume fraction] 45.6 % Normal 36.0-48.0 [facility] Comment on above: Performed By: #### C BC #### [facility] [address] [place] [address] Dr. Chucho Jesus Hemoglobin (Bld) [Mass/Vol] 14.7 g/dL Normal 12.0-16.0 [facility] Comment on above: Performed By: #### C BC #### [facility] [address] [place] [address] Dr. Chucho Jesus IG # 0.02 10e3/ul Normal 0.00-0.03 [facility] Comment on above: Performed By: #### C BC #### [facility] [address] [place] [address] Dr. Chucho Jesus IG % 0.3 % Normal 0.0-0.5 [facility] Comment on above: Performed By: #### C BC #### [facility] [address] [place] [address] Dr. Chucho Jesus LYMPH # 1.6 103/ul Normal 1.2-3.8 [facility] Comment on above: Performed By: #### C BC #### [facility] [address] [place] [address] Dr. Chucho Jesus Lymphocytes/100 WBC (Bld) 24.5 % Normal 20.5-60.0 [facility] Comment on above: Performed By: #### C BC #### [facility] [address] [place] [address] Dr. Chucho Jesus MANUAL DIFF REQ NO Normal [facility] Comment on above: Performed By: #### C BC #### [facility] [address] [place] [address] Dr. Chucho Jesus MCH (RBC) [Entitic mass] 28.4 pg Normal 26.7-34.0 [facility] Comment on above: Performed By: #### C BC #### [facility] [address] [place] [address] Dr. Chucho Jesus MCHC (RBC) [Mass/Vol] 32.2 g/dL Normal 29.9-35.2 [facility] Comment on above: Performed By: #### C BC #### [facility] [address] [place] [address] Dr. Chucho Jesus MCV (RBC) [Entitic vol] 88.2 fL Normal 81.0-99.0 [facility] Comment on above: Performed By: #### C BC #### [facility] [address] [place] [address] Dr. Chucho Jesus MONO # 0.5 103/ul Normal 0.3-0.8 [facility] Comment on above: Performed By: #### C BC #### [facility] [address] [place] [address] Dr. Chucho Jesus Monocytes/100 WBC (Bld) 7.4 % Normal 1.7-12.0 [facility] Comment on above: Performed By: #### C BC #### [facility] [address] [place] [address] Dr. Chucho Jesus NEUT # 4.4 103/ul Normal 1.4-6.5 [facility] Comment on above: Performed By: #### C BC #### [facility] [address] [place] [address] Dr. Chucho Jesus Neutrophils/100 WBC (Bld) 65.4 % Normal 43.0-75.0 [facility] Comment on above: Performed By: #### C BC #### [facility] [address] [place] [address] Dr. Chucho Jesus Platelet mean volume (Bld) [Entitic vol] 9.9 fL Normal 9.5-13.5 [facility] Comment on above: Performed By: #### C BC #### [facility] [address] [place] [address] Dr. Chucho Jesus PLT 225 103/ul Normal 150-450 [facility] Comment on above: Performed By: #### C BC #### [facility] [address] [place] [address] Dr. Chucho Jesus RBC 5.17 106/ul Normal 4.20-5.40 [facility] Comment on above: Performed By: #### C BC #### [facility] [address] [place] [address] Dr. Chucho Jesus WBC 6.7 103/ul Normal 4.0-11.0 [facility] Comment on above: Performed By: #### C BC #### [facility] [address] [place] [address] Dr. Chucho Jesus FREE THYROXINE INDEX T7on FTI 3.29 Normal 1.30-4.50 [facility] Comment on above: Performed By: #### T 7, TSH, LIPID, CMP #### [facility] [address] [place] [address] Dr. Chucho Jesus T3U 27.0 % Critically low 30.0-39.0 [facility] Comment on above: Performed By: #### T 7, TSH, LIPID, CMP #### [facility] [address] [place] [address] Dr. Chucho Jesus T4 [Mass/Vol] 12.20 ug/dL Normal 4.80-13.90 [facility] Comment on above: Performed By: #### T 7, TSH, LIPID, CMP #### [facility] [address] [place] [address] Dr. Chucho Jesus GLYCOHEMOGLOBIN A1Con 2021 ADA RECOMMENDATION SEE BELOW Normal [facility] Comment on above: Result Comment: ADA RECOMMENDED LIMIT 4.0 - 6.0 ADA THERAPEUTIC TARGET < 7.0 ACTION SUGGESTED > 7.0 Performed By: #### A 1C #### [facility] [address] [place] [address] Dr. Chucho Jesus Glucose [Mass/Vol] 105 mg/dL Normal [facility] Comment on above: Performed By: #### A 1C #### [facility] [address] [place], [place] [id number] Dr. Chucho Jesus HbA1c (Bld) [Mass fraction] 5.3 % Normal 4.5-6.2 [facility] Comment on above: Performed By: #### A 1C #### [facility] [address] [place] [address] Dr. Chucho Jesus IRONon 04-24-2022 Iron [Mass/Vol] 48.0 ug/dL Critically low 50.0-170.0 [facility] Comment on above: Performed By: #### V ITAD, IRON #### [facility] [address] [place] [address] Dr. Chucho Jesus LIPID PROFILEon 04-24-2022 CHOL-HDL RATIO NORM SEE BELOW Normal [facility] Comment on above: Result Comment: 3.3 - 4.4 LOW RISK 4.4 - 7.1 AVERAGE RISK 7.1 - 11.0 MODERATE RISK >11.0 HIGH RISK Performed By: #### V ITAD, IRON #### [facility] [address] [place] [address] Dr. Chucho Jesus Cholesterol [Mass/Vol] 184 mg/dL Normal <=200 [facility] Comment on above: Performed By: #### V ITAD, IRON #### [facility] [address] [place] [address] Dr. Chucho Jesus Cholesterol in HDL [Mass/Vol] 55 mg/dL Normal 40-60 [facility] Comment on above: Performed By: #### V ITAD, IRON #### [facility] [address] [place] [address] Dr. Chucho Jesus Cholesterol in LDL [Mass/Vol] 116.6 mg/dL Normal [facility] Comment on above: Performed By: #### V ITAD, IRON #### [facility] [address] [place] [address] Dr. Chucho Jesus Cholesterol.total/C holesterol in HDL [Mass ratio] 3.3 {ratio} Normal [facility] Comment on above: Performed By: #### V ITAD, IRON #### [facility] [address] [place] [address] Dr. Chucho Jesus HDL NORMAL > or = 60 mg/dl - LO W CARDIOVASCULAR RISK <40 mg/dl - HIGH CARDIOVASCULAR RISK Normal [facility] Comment on above: Performed By: #### V ITAD, IRON #### [facility] [address] [address] [address] Chucho Jesus LDL CALC NORMAL SEE BELOW Normal [facility] Comment on above: Result Comment: <100 mg/dl OPTIMAL 100 - 129 mg/dl NEAR OR ABOVE OPTIMAL 130 - 159 mg/dl BORDERLINE HIGH 160 - 189 mg/dl HIGH >190 mg/dl VERY HIGH Performed By: #### V ITAD, IRON #### [facility] [address] [address] [address] Chucho Jesus Triglyceride [Mass/Vol] 62 mg/dL Normal <=150 [facility] Comment on above: Performed By: #### V ITAD, IRON #### [facility] [address] [address] [address] Chucho Jesus VLDL CALC 12.4 mg/dL Normal [facility] Comment on above: Performed By: #### V ITAD, IRON #### [facility] [address] [address] [address] Chucho Jesus PROF 14(COMP METB)on 04-24- 022 Albumin [Mass/Vol] 3.7 g/dL Normal 3.4-5.0 [facility] Comment on above: Performed By: #### T 7, TSH, LIPID, CMP #### [facility] [address] [address] [address] Chucho Jesus Albumin/Globulin [Mass ratio] 0.9 {ratio} Normal [facility] Comment on above: Performed By: #### T 7, TSH, LIPID, CMP #### [facility] [address] [address] [address] Chucho Jesus ALP [Catalytic activity/Vol] 74 U/L Normal 46-116 [facility] Comment on above: Performed By: #### T 7, TSH, LIPID, CMP #### [facility] [address] [address] [address] Chucho Jesus ALT [Catalytic activity/Vol] 16 U/L Normal 14-59 [facility] Comment on above: Performed By: #### T 7, TSH, LIPID, CMP #### [facility] [address] [place] [address] Dr. Chucho Jesus Anion gap [Moles/Vol] 12.3 mmol/L Normal [facility] Comment on above: Performed By: #### T 7, TSH, LIPID, CMP #### [facility] [address] [place] [address] Dr. Chucho Jesus AST [Catalytic activity/Vol] 13 U/L Critically low 15-37 [facility] Comment on above: Performed By: #### T 7, TSH, LIPID, CMP #### [facility] [address] [place] [address] Dr. Chucho Jesus Bilirubin [Mass/Vol] 0.4 mg/dL Normal 0.2-1.0 [facility] Comment on above: Performed By: #### T 7, TSH, LIPID, CMP #### [facility] [address] [place] [address] Dr. Chucho Jesus Calcium [Mass/Vol] 8.9 mg/dL Normal 8.5-10.1 [facility] Comment on above: Performed By: #### T 7, TSH, LIPID, CMP #### [facility] [address] [place] [address] Dr. Chucho Jesus Chloride [Moles/Vol] 105 mmol/L Normal 98-107 [facility] Comment on above: Performed By: #### T 7, TSH, LIPID, CMP #### [facility] [address] [place] [address] Dr. Chucho Jesus CO2 [Moles/Vol] 26.6 mmol/L Normal 21.0-32.0 The [facility] Comment on above: Performed By: #### T 7, TSH, LIPID, CMP #### [facility] [address] [place] [address] Dr. Chucho Jesus Creatinine [Mass/Vol] 0.68 mg/dL Normal 0.55-1.02 [facility] Comment on above: Performed By: #### T 7, TSH, LIPID, CMP #### [facility] [address] [address] [address] Chucho Jesus EGFR-AF CROATIAN >60 Normal >=60 [facility] Comment on above: Performed By: #### T 7, TSH, LIPID, CMP #### [facility] [address] [address] [address] Chucho Jesus EGFR-NON AF CROATIAN >60 Normal >=60 [facility] Comment on above: Performed By: #### T 7, TSH, LIPID, CMP #### [facility] [address] [address] [address] Chucho Jesus Globulin (S) [Mass/Vol] 4.3 g/dL Normal [facility] Comment on above: Performed By: #### T 7, TSH, LIPID, CMP #### [facility] [address] [address] [address] Chucho Jesus Glucose [Mass/Vol] 87 mg/dL Normal 74-106 [facility] Comment on above: Performed By: #### T 7, TSH, LIPID, CMP #### [facility] [address] [address] [address] Chucho Jesus Potassium [Moles/Vol] 3.9 mmol/L Normal 3.5-5.1 [facility] Comment on above: Performed By: #### T 7, TSH, LIPID, CMP #### [facility] [address] [address] [address] Chucho Jesus Protein [Mass/Vol] 8.0 g/dL Normal 6.4-8.2 [facility] Comment on above: Performed By: #### T 7, TSH, LIPID, CMP #### [facility] [address] [address] [address] Chucho Jesus Sodium [Moles/Vol] 140 mmol/L Normal 136-145 [facility] Comment on above: Performed By: #### T 7, TSH, LIPID, CMP #### [facility] [address] [address] [address] Chucho Jesus Urea nitrogen [Mass/Vol] 9.0 mg/dL Normal 7.0-18.0 [facility] Comment on above: Performed By: #### T 7, TSH, LIPID, CMP #### [facility] [address] [address] [address] Chucho Jesus Urea nitrogen/Creatinine [Mass ratio] 13.2 mg/mg Normal [facility] Comment on above: Performed By: #### T 7, TSH, LIPID, CMP #### [facility] [address] [address] [address] Chucho Jesus TSHon 04-24-2022 TSH 1.127 uIU/mL Normal 0.358-3.740 [facility] Comment on above: Performed By: #### T 7, TSH, LIPID, CMP #### [facility] [address] [place] [address] Dr. Chucho Jesus VITAMIN D 25 OHon 04-24-2022 VIT D 25-OH 35.2 ng/mL Normal [facility] Comment on above: Performed By: #### V ITAD, IRON #### [facility] [address] [place] [address] Dr. Chucho Jesus VIT D RANGES SEE BELOW Normal [facility] Comment on above: Result Comment: <20 ng/mL Vit D deficient 20 - <30 ng/mL Vit D insufficient 30 - 100 ng/mL Vit D sufficient >100 ng/mL Potential Toxicity Performed By: #### V ITAD, IRON #### [facility] [address] [place] [address] Dr. Chucho Jesus HCG ( test) Ql (U)O rdered By: James Churchill on 12-05-2020 Internal Control Pass [facility] Interpretation and review of laboratory results Normal [facility] POC , UrineOrdered By: James Churchill on 12-05-2020 HCG ( test) Ql (U) Negative Negative [facility] CTA CHEST WITH CONTRASTon CTA CHEST [...] by:Ady Tran MD03/25/17Edited Result - FINAL Normal [facility] Basic Metabolic Profon 02-19 (cont.) Normal [facility] Comment on above: Result Comment: Aver age GFR for 20-29 years old: 116 mL/min/1.73sq mChronic Kidney Disease: <60 mL/min/1.73sq mKidney failure: <15 mL/min/1.73sq meGFR calculated using average adult body mass. Additional eGFR calculator available at:[email or web address]_crcl_[email or web address].htm Performed By: #### C DP, BMP, TROPI ####[address] [place] [address] Anion gap 14 mmol/L Normal - [facility] Comment on above: Performed By: #### C DP, BMP, TROPI ####[address] [place] [address](212 BUN/CRE Ratio 13 Normal - [facility] Comment on above: Performed By: #### C DP, BMP, TROPI ####[address] [place] [address] Calcium 9.2 mg/dL Normal 8.6-10.4 [facility] Comment on above: Performed By: #### C DP, BMP, TROPI ####[address] [place] [address] Chloride 105 mmol/L Normal 98-107 [facility] Comment on above: Performed By: #### C DP, BMP, TROPI ####[address] [place] [address] CO2 23 mmol/L Normal 20-31 [facility] Comment on above: Performed By: #### C DP, BMP, TROPI ####[address] [place] [address] Creatinine 0.55 mg/dL Normal 0.50-0.90 [facility] Comment on above: Performed By: #### C DP, BMP, TROPI ####[address] [place] [address] eGFR (non-black) mL/min/{1.73_m2} Normal >60 [facility] Comment on above: Performed By: #### C DP, BMP, TROPI ####[address] [place] [address] Glucose mass conc 96 mg/dL Normal 70-99 [facility] Comment on above: Performed By: #### C DP, BMP, TROPI ####[address] [place] [address] Potassium molar conc 3.6 mmol/L Low 3.7-5.3 [facility] Comment on above: Performed By: #### C DP, BMP, TROPI ####[address] [place] [address] Sodium 142 mmol/L Normal 135-144 [facility] Comment on above: Performed By: #### C DP, BMP, TROPI ####[address] [place] [address] Staging: Normal [facility] Comment on above: Result Comment: Stag e 1: Some kidney damage normal GFRStage 2: Mild kidney damage GFR 60-89Stage 3: Moderate kidney damage GFR 30-59Stage 4: Severe kidney damage GFR 15-29Stage 5: Severe kidney damage GFR <15ESRD - chronic treatment by dialysis or transplantPerformed at [address] [place] [address] Performed By: #### C DP, BMP, TROPI ####[address] [place] [address] Urea nitrogen 7 mg/dL Normal 6-20 [facility] Comment on above: Performed By: #### C DP, BMP, TROPI ####[address] [facility] CBC with Diffon 02-19-2017 Abs. Basophil 0.00 k/uL Normal 0.0-0.2 [facility] Comment on above: Result Comment: Perf ormed at [address] [place] [address] Performed By: #### C DP, BMP, TROPI ####[address] [address] Abs.Neutrophil (Seg) 7.10 k/uL Normal 1.8-8.0 [facility] Comment on above: Performed By: #### C DP, BMP, TROPI ####[address] , [place] [address] Basophils/100 WBC Auto (Bld) 0 % Normal [facility] Comment on above: Performed By: #### C DP, BMP, TROPI ####[address] [place] [address] Eosinophils 0.30 10*3/uL Normal 0.0-0.4 [facility] Comment on above: Performed By: #### C DP, BMP, TROPI ####[address] [place] [address] Eosinophils/100 leukocytes 3 % Normal [facility] Comment on above: Performed By: #### C DP, BMP, TROPI ####[address] [place] [address] Erythrocyte distribution width Auto Ratio (RBC) 13.6 % Normal 12.1-15.2 [facility] Comment on above: Performed By: #### C DP, BMP, TROPI ####[address] [place] [address] Erythrocytes (RBC) 5.03 10*6/uL Normal 4.0-5.2 [facility] Comment on above: Performed By: #### C DP, BMP, TROPI ####[address] [place] [address] Hematocrit (HCT) 40.2 % Normal 36-46 [facility] Comment on above: Performed By: #### C DP, BMP, TROPI ####[address] [place] [address] Hemoglobin mass conc (Bld) 13.2 g/dL Normal 12.0-16.0 [facility] Comment on above: Performed By: #### C DP, BMP, TROPI ####[address] [place] [address] Lymphocytes 2.90 10*3/uL Normal 1.2-5.2 [facility] Comment on above: Performed By: #### C DP, BMP, TROPI ####[address] [place] [address] Lymphocytes/100 leukocytes 27 % Normal [facility] Comment on above: Performed By: #### C DP, BMP, TROPI ####[address] [place] [address] MCH 26.2 pg Normal 26-34 [facility] Comment on above: Performed By: #### C DP, BMP, TROPI ####[address] , [facility]83 MCHC mass conc (RBC) 32.8 g/dL Normal 31-37 [facility] Comment on above: Performed By: #### C DP, BMP, TROPI ####[address] , [facility]83 MCV 79.9 fL Low 80-100 [facility] Comment on above: Performed By: #### C DP, BMP, TROPI ####[address] [place] [address] Monocytes 0.60 10*3/uL Normal 0.0-1.0 [facility] Comment on above: Performed By: #### C DP, BMP, TROPI ####[address] , [place] [address] Monocytes/100 leukocytes 5 % Normal [facility] Comment on above: Performed By: #### C DEION, BMP, TROPI ####[address] [place] [address] Neutrophil (Seg) 65 % Normal [facility] Comment on above: Performed By: #### C DP, BMP, TROPI ####[address] [place] [address] Platelet mean volume (PMV) 9.6 fL Normal 6.0-12.0 [facility] Comment on above: Performed By: #### C DP, BMP, TROPI ####[address] [place] [address] Platelets 278 10*3/uL Normal 140-450 [facility] Comment on above: Performed By: #### C DP, BMP, TROPI ####[address] [place] [address] WBC (Leukocytes) 10.8 10*3/uL Normal 4.5-13.5 [facility] Comment on above: Performed By: #### C DP, BMP, TROPI ####[address] [place] [address] Auto Diff Performed NOT REPORTED Normal [facility] Comment on above: Performed By: #### C DP, BMP, TROPI ####[address] [place] [address] Erythrocyte morphology NOT REPORTED Normal [facility] Comment on above: Performed By: #### C DP, BMP, TROPI ####[address] [place] [address] Platelets NOT REPORTED Normal [facility] Comment on above: Performed By: #### C DP, BMP, TROPI ####[address] [place] [address] WBC Morphology NOT REPORTED Normal [facility] Comment on above: Performed By: #### C DP, BMP, TROPI ####[address] [place] [address] ED Noteon 02-19-2017 HIM IP Note OR Lighting Designer Normal [facility] ED Provider Noteon 7 HIM IP Note OR Lighting Designer Normal [facility] Troponinon 02-19-2017 Troponin T.cardiac mass conc ug/L Normal <0.03 [facility] Comment on above: Result Comment: Trop onin T results cannot be compared to Troponin-I results. Performed By: #### C DP, BMP, TROPI ####[address] [place] [address] Troponin I.cardiac mass conc Normal [facility] Comment on above: Result Comment: Refe rence Range: <0.03 Within reference range. 0.03-0.09 Possible myocardial damage.Repeat at appropriate intervals to rule out chronic elevation. >= 0.10 Indicative of myocardial damage.Performed at [address] [place] [address] [phone] Performed By: #### C DP, BMP, TROPI ####[address] [place] [address] Vital Signs Date Time Vital Sign Value Performing Clinician Facility 06-21-2024 13:31-0500 Body mass index (BMI) [Ratio] 35.61 kg/m2 Little LOWRY Work Phone: [facility] 06-21-2024 13:31-0500 Body weight 97.07 kg Little LOWRY Work Phone: [facility] 06-21-2024 13:31-0500 Diastolic blood pressure 72 mm[Hg] Little Christie PA Work Phone: [facility] 06-21-2024 13:31-0500 Systolic blood pressure 116 mm[Hg] Little Christie PA Work Phone: [facility] 06-07-2024 13:49-0500 Body mass index (BMI) [Ratio] 34.61 kg/m2 Berto Luis DO Work Phone: [facility] 06-07-2024 13:49-0500 Body weight 94.35 kg Berto Luis DO Work Phone: [facility] 06-07-2024 13:49-0500 Diastolic blood pressure 70 mm[Hg] Berto Luis DO Work Phone: [facility] 06-07-2024 13:49-0500 Systolic blood pressure 120 mm[Hg] Berto Luis DO Work Phone: [facility] 05-24-2024 14:26-0500 Body mass index (BMI) [Ratio] 33.75 kg/m2 Little Christie PA Work Phone: [facility] 05-24-2024 14:26-0500 Body weight 91.99 kg Little Christie PA Work Phone: [facility] 05-24-2024 14:26-0500 Diastolic blood pressure 70 mm[Hg] Little Gastonia PA Work Phone: [facility] 05-24-2024 14:26-0500 Systolic blood pressure 108 mm[Hg] Little Christie PA Work Phone: [facility] 05-09-2024 11:44-0500 Body mass index (BMI) [Ratio] 33.28 kg/m2 Berto Luis DO Work Phone: [facility] 05-09-2024 11:44-0500 Body weight 90.72 kg Berto Luis DO Work Phone: [facility] 05-09-2024 11:44-0500 Diastolic blood pressure 64 mm[Hg] Berto Luis DO Work Phone: [facility] 05-09-2024 11:44-0500 Systolic blood pressure 118 mm[Hg] Berto Luis DO Work Phone: [facility] 04-11-2024 10:37-0400 Body mass index (BMI) [Ratio] 31.12 kg/m2 Little Christie PA Work Phone: [facility] 04-11-2024 10:37-0400 Body weight 84.82 kg Little Christie PA Work Phone: [facility] 04-11-2024 10:37-0400 Diastolic blood pressure 68 mm[Hg] Little Christie PA Work Phone: [facility] 04-11-2024 10:37-0400 Systolic blood pressure 116 mm[Hg] Little Christie PA Work Phone: [facility] 03-14-2024 11:44-0400 Body mass index (BMI) [Ratio] 28.62 kg/m2 Berto Luis DO Work Phone: [facility] 03-14-2024 11:44-0400 Body weight 78.02 kg Berto Luis DO Work Phone: [facility] 03-14-2024 11:44-0400 Diastolic blood pressure 74 mm[Hg] Berto Luis DO Work Phone: [facility] 03-14-2024 11:44-0400 Systolic blood pressure 118 mm[Hg] Berto Smith DO Work Phone: [facility] 02-27-2023 14:39-0400 Blood Pressure Location Gary DANGELOL [facility] [place] 02-27-2023 14:39-0400 Diastolic blood pressure 66 mm[Hg] Gary DANGELOL [facility] [place] 02-27-2023 14:39-0400 Heart rate 70 /min Gary DANGELOL [facility] [place] 02-27-2023 14:39-0400 Respiratory rate 16 /min Gary DANGELOL [facility] [place] 02-27-2023 14:39-0400 Systolic blood pressure 106 mm[Hg] Gary DANGELOL [facility] [place] 01-08-2022 08:09-0400 Body temperature 98.01 [degF] Wiley Rice DO Work Phone: [facility] 01-08-2022 08:09-0400 Body weight 75.75 kg Wiley Rice DO Work Phone: [facility] 01-08-2022 08:09-0400 Diastolic blood pressure 71 mm[Hg] Wiley Rice DO Work Phone: [facility] 01-08-2022 08:09-0400 Heart rate 98 /min Wiley Rice DO Work Phone: [facility] 01-08-2022 08:09-0400 Systolic blood pressure 112 mm[Hg] Wiley Rice DO Work Phone: [employer] 12-10-2021 14:45-0400 Body height 166.37 cm Bret Long Other [employer] Other 12-10-2021 14:45-0400 Body mass index (BMI) [Ratio] 26.55 kg/m2 Bret Long Other [employer] Other 12-10-2021 14:45-0400 Body weight 73.48 kg Bret Long Other [employer] Other 12-10-2021 14:45-0400 Diastolic blood pressure 72 mm[Hg] Bret Long Other [employer] Other 12-10-2021 14:45-0400 Systolic blood pressure 103 mm[Hg] Bret Long Other [employer] Other 11-27-2021 14:01-0400 Body temperature 98.4 [degF] Wiley Rice DO Work Phone: [employer] 11-27-2021 14:01-0400 Body weight 74.84 kg Wiley Rice DO Work Phone: [employer] 11-27-2021 14:01-0400 Diastolic blood pressure 64 mm[Hg] Wiley Rice DO Work Phone: [employer] 11-27-2021 14:01-0400 Heart rate 98 /min Wiley Rice DO Work Phone: [employer] 11-27-2021 14:01-0400 Systolic blood pressure 121 mm[Hg] Wiley Rice DO Work Phone: [facility] 12-05-2020 19:26-0400 Heart rate 106 /min James Breece PA-C Work Phone: [facility] 12-05-2020 19:25-0400 Body temperature 98.29 [degF] James Breece PA-C Work Phone: [facility] 12-05-2020 19:25-0400 Body weight 97.98 kg James Breece PA-C Work Phone: [facility] 12-05-2020 19:25-0400 Diastolic blood pressure 86 mm[Hg] James Breece PA-C Work Phone: [facility] 12-05-2020 19:25-0400 Respiratory rate 16 /min James Breece PA-C Work Phone: [facility] 12-05-2020 19:25-0400 SaO2% (BldA) [Mass fraction] 97 % James Breece PA-C Work Phone: [facility] 12-05-2020 19:25-0400 Systolic blood pressure 126 mm[Hg] James Breece PA-C Work Phone: [facility] Encounters Encounter Date Encounter Type Care Provider Facility Start: 06-21-2024 End: 06-21-2024 Bamboo flowsheet Little LOWRY Work Phone: [facility] Start: 06-21-2024 End: 06-21-2024 Bamboo flowsheet Little LOWRY Work Phone: [facility] Start: 06-21-2024 End: 06-21-2024 ambulatory LITTLE CHRISTIE Not Available Start: 06-21-2024 End: 06-21-2024 Office outpatient visit [...] visit 15 minutes Little LOWRY Work Phone: [facility] Comment on above: Third trimester preg lenin; 29 weeks gestation of ; Upper respiratory tract infection, unspecified type Start: 05-24-2024 End: 05-24-2024 ambulatory LITTLE CHRISTIE Not Available Start: 05-24-2024 End: 05-24-2024 Bamboo flowsheet Little LOWRY Work Phone: [facility] Start: 05-24-2024 End: 05-24-2024 Bamboo flowsheet Little LOWRY Work Phone: [facility] Start: 05-09-2024 End: 05-09-2024 Bamboo flowsheet Berto Luis DO Work Phone: [facility] Start: 05-09-2024 End: 05-09-2024 Bamboo flowsheet Berto Luis DO Work Phone: [facility] Start: 05-09-2024 End: 05-09-2024 Office outpatient visit 15 minutes Berto Luis DO Work Phone: [facility] Comment on above: Second trimester pre gnancy; 26 weeks gestation of ; History of miscarriage Start: 05-09-2024 End: 05-09-2024 ambulatory BERTO LUIS Not Available Start: 04-11-2024 End: 04-11-2024 Bamboo flowsheet Little LOWRY Work Phone: [facility] Start: 04-11-2024 End: 04-11-2024 Bamboo flowsheet Little LOWRY Work Phone: [facility] Start: 04-11-2024 End: 04-11-2024 Office outpatient visit 15 minutes Little LOWRY Work Phone: [facility] Comment on above: Second [...] Patient encounter procedure Gary MORRIS [facility] [place] Start: 02-23-2023 ambulatory Alexandr Bourgeois Facility:[facility] Start: 02-05-2023 ambulatory Gary MORRIS Facility:[facility] [...] BELTRAN . Facility:[facility] Start: 02-18-2022 ambulatory WILEY HARPERE M~[id number] [facility] Start: 02-12-2022 ambulatory WILEYNigel HARPERE M~[id number] [facility] Start: 02-12-2022 End: 02-12-2022 Telemedicine consultation with patient Wiley Huffman Rice DO Work Phone: [facility] Comment on above: Anxiety (Primary Dx) Start: 01-19-2022 Refill Luis Dipalma D O Work Phone: [facility] Start: 01-19-2022 Refill Luis Dipalma D O Work Phone: [facility] Start: 01-08-2022 End: 01-08-2022 ambulatory WILEYNigel HARPERE M~[id number] [facility] Start: 01-08-2022 End: 01-08-2022 Office outpatient visit 25 minutes Wiley Nathanael Rice DO Work Phone: [facility] Comment on above: Anxiety (Primary Dx) ; Hypotension, unspecified hypotension type Start: 01-08-2022 End: 01-08-2022 Patient encounter procedure Wiley M Rice DO Work Phone: [facility] Start: 12-11-2021 End: 12-11-2021 ambulatory WILEYNigel HARPERE M~[id number] [facility] Start: 12-10-2021 End: 12-10-2021 ambulatory Bret Long Other [employer] Other Start: 12-10-2021 Office outpatient ne w 45 minutes Bret Long [facility] Start: 11-27-2021 End: 11-27-2021 ambulatory WILEY Huffman~[id number] RICE RICE [facility] Start: 11-27-2021 End: 11-27-2021 Office outpatient new 30 minutes Wiley Osorio DO Work Phone: [facility] Comment on above: Anxiety (Primary Dx) Start: 11-27-2021 End: 11-27-2021 Patient encounter procedure Wiley Osorio DO Work Phone: [facility] Start: 11-25-2021 Telephone encounter Dana Kinsey [facility] Start: 12-05-2020 End: 12-05-2020 ambulatory PHYSICIAN NO [facility] Start: 12-05-2020 End: 12-05-2020 Office outpatient new 20 minutes James DENNYC Work Phone: [facility] [place] Comment on above: Vaginal sore (Primar y Dx) Start: 02-19-2017 End: 02-19-2017 Emergency department patient visit KIM Alfonso [facility] Procedures Date Procedure Procedure Detail Performing [...] Start: 02-19-2017 BASIC METABOLIC PANEL M DAT ENA Start: 02-19-2017 CBC WITH AUTO DIFFERENTIAL [facility] Start: 02-19-2017 TROPONIN KIM Howell Start: 02-19-2017 EKG 12-LEAD KIM Howell None (qualifier value) Henrik MORRIS Plan of Treatment Date Care Activity Detail Author Start: 07-04-2024 End: 07-04-2024 Patient encounter procedure 07/04/2024 11:50 AM EST Routine [facility] [address] [place] [id number] Little Christie, PA [address] [place] [address] [facility] Start: 06-21-2024 End: 06-21-2024 Patient encounter procedure 06/21/2024 1:20 PM EST Routine [facility] [address] [place] [address] Little Christie PA [address] [place] [address] [facility] Start: 06-07-2024 End: 06-07-2024 Patient encounter procedure 06/07/2024 1:30 PM EST Routine [facility] [address] [place] [address] Berto Smith DO [address] [place] [address] [facility] Start: 05-24-2024 End: 05-24-2024 Patient encounter procedure 05/24/2024 2:10 PM EST Routine [facility] [address] [place] [phone] Little Christie, PA [address] [place], [place] [address] Arrived [facility] Comment on above: Arrived Start: 05-23-2024 End: 05-23-2024 Patient encounter procedure 05/23/2024 1:50 PM EST Routine [facility] [address] [place] [address] Little Christie, PA [address] [place], [place] [id number] [facility] Start: 05-09-2024 End: 05-09-2025 [...] mellitus screening Expected: 04/11/2024 (Approximate), Expires: 04/11/2025 [facility] Comment on above: Expected: 04/11/2024 (Approximate), Expires: 04/11/2025 Start: 04-11-2024 End: 04-11-2024 Patient encounter procedure [facility] Comment on above: Arrived Start: 03-14-2024 End: 03-14-2024 Patient encounter procedure 03/14/2024 11:20 AM EDT Routine [facility] [address] [place] [address] Berto Smith, DO [address] [place] [address] Arrived [facility] Comment on above: Arrived Start: 03-06-2024 Influenza vaccination Influenza Vacc ine (#1) [facility] Start: 11-27-2022 Adolescent depressio n screening assessment Depression Screening [facility] Start: 03-06-2022 Influenza vaccination T [facility] Start: 02-07-2022 End: 02-07-2022 Patient encounter procedure 02/07/2022 Office Visit [facility] Wiley Osorio DO [address] [place] [id number] [facility] Start: 12-19-2021 End: 12-19-2021 Patient encounter procedure 12/19/2021 Office Visit [facility] Wiley Osorio DO [address] [place] [id number] [facility] Start: 12-07-2021 COVID-19 Vaccine (3 - Booster for Moderna series) COVID-19 Vaccine (3 - Booster for Moderna series) [facility] Start: 11-27-2021 End: 05-25-2022 Patient encounter procedure 11/27/2021 Office Visit Family Medicine Wiley Osorio, DO [address] [place] [address] [facility] Start: 11-24-2021 Adolescent depressio n screening assessment Depression Screening [facility] Start: 11-24-2021 Hepatitis C screening Hepatitis C Sc reening [facility] Start: 11-24-2021 HIV screening HIV Screening [facility] Start: 11-24-2021 Social Influencers o f Health Screening Social Influencers of Health Screening [facility] Start: 03-06-2021 Influenza vaccination Sequenti al Influenza Vaccine (Season Ended) [facility] Start: 2017 Screening for malign ant neoplasm of cervix Cervical Cancer Screening: Pap Smear [facility] Start: 2015 DTaP,Tdap,and Td Vac cines (1 - Tdap) DTaP,Tdap,and Td Vaccines (1 - Tdap) [facility] Start: 2014 Hepatitis C screening Hepatitis C Sc reening [facility] Start: 2011 HIV screening HIV Screening [facility] Start: 2008 COVID-19 Vaccine (1) COVID-19 Vaccin e (1) [facility] Start: 2008 Depression screening using PHQ-9 (Patient Health Questionnaire 9) score Depression Screening (PHQ9) [facility] Start: 2007 HPV Vaccines (1 - 2- dose series) HPV Vaccines (1 - 2-dose series) [facility] Start: 2007 Vaccination for april n papillomavirus HPV Vaccines (1 - 2-dose series) [facility] Start: 2001 COVID-19 Vaccine (1) COVID-19 Vaccin e (1) [facility] Start: 1999 History and physical examination, annual for health maintenance Wellness Visit [facility] Start: 1996 Screening for Chlamy marilee trachomatis Chlamydia Screening [facility] Start: 1996 Screening for malign ant neoplasm of cervix Pap Smear [facility] Start: 1996 Tetanus vaccination Tetanus: Every 1 0yrs [facility] Chlamydia trachomati s rRNA assay Chlamydia/GC/Trichomon as Amplified RNA Microbiology Routine Vaginal sore Ordered: 12/05/2020 [facility] Comment on above: Ordered: 12/05/2020 HSV by PCR Superfici al Site HSV by PCR Superficial Site Lab Routine Vaginal sore Ordered: 12/05/2020 [facility] Comment on above: Ordered: 12/05/2020 Neisseria gonorrhoea e nucleic acid detection Chlamydia/Gonorrhoeae Amplified RNA Microbiology Routine Vaginal sore Ordered: 12/05/2020 [facility] Comment on above: Ordered: 12/05/2020 Trichomonas vaginali s Amplified RNA Trichomonas vaginalis Amplified RNA Microbiology Routine Vaginal sore Ordered: 12/05/2020 [facility] Comment on above: Ordered: 12/05/2020 Immunizations Immunization Date Immunization Notes [facility] SARS-CoV-2 (COVID-19 ) mRNA-1273 vaccine Gary ALEXANDRA [facility] [place] 06-08-2021 SARS-CoV-2 (COVID-19 ) mRNA-1273 vaccine Gary MORRIS [facility] 04-10-2011 influenza virus vaccine, unspecified formulation Berto Luispriscilla RUBY Work Phone: [facility] Healthcare Payers Date Payer Category Payer Private Health Insurance [facility] MEDICAID [id number] 2021 Medicaid [id number] 2020 Medicaid [id number] 2016 Unknown [id number] 2013 Unknown [id number] 1996 Unknown [id number] 2.16.840.1.725571.3.579.2. 903 1996 Unknown [id number] 2.16.840.1.434402.3.579.2. 1143 1996 Unknown [id number] 2.16.840.1.843174.3.579.2. 1143 1996 Unknown [id number] 2.16.840.1.507499.3.579.2. 1143 1996 Unknown [id number] 2.16.840.1.543250.3.579.2. 1143 1996 Unknown [id number] 2.16.840.1.413463.3.579.2. 1143 1996 Unknown [id number] 2.16.840.1.798067.3.579.2. 593 1996 Unknown [id number] 2.16.840.1.822470.3.579.2. 593 1996 Unknown [id number] 2.16.840.1.920639.3.579.2. 593 1996 Unknown [id number] 2.16.840.1.061726.3.579.2. 593 1996 Unknown [id number] 2.16.840.1.028941.3.579.2. 593 1996 Unknown [id number] 2.16.840.1.482498.3.579.2. 593 1996 Unknown [id number] 2.16.840.1.391116.3.579.2. 593 1996 Unknown [id number] 2.16.840.1.181030.3.579.2. 727 1996 Unknown [id number] 2.16.840.1.328250.3.579.2. 1286 1996 Unknown [id number] 2.16.840.1.324326.3.579.2. 1286 1996 Unknown [id number] 2.16.840.1.888277.3.579.2. 9 1996 Unknown [id number] 2.16.840.1.590347.3.579.2. 9 1996 Unknown [id number] 2.16.840.1.878689.3.579.2. 1258 1996 Unknown [id number] 2.16.840.1.742790.3.579.2. 9 1996 Unknown [id number] 2.16.840.1.707732.3.579.2. 1258 1996 Unknown [id number] 2.16.840.1.705826.3.579.2. 9 1996 Unknown [id number] 2.16.840.1.973787.3.579.2. 1258 1996 Unknown [id number] 2.16.840.1.212707.3.579.2. 9 1996 Unknown [id number] 2.16.840.1.930520.3.579.2. 1258 1996 Unknown [id number] 2.16.840.1.946800.3.579.2. 1259 1960 Unknown [id number] 2.16.840.1.149320.3.579.2. 727 1959 Medicaid [id number] 1959 Self-pay 1959 Unknown [id number] 1959 Unknown [id number] 1959 Unknown [id number] Unknown [id number] 2.16.840.1.397084.3.579.2. 531 Social History Date Type Detail Facility Start: 12-05-2020 End: 02-27-2023 Tobacco smoking status AKIS Never smoker [facility] Start: 12-05-2020 End: 11-27-2021 Tobacco use and exposure Never used [facility] Start: 12-05-2020 Alcohol intake Current drinke r of alcohol (finding) [facility] Start: 12-05-2020 End: 11-27-2021 History SDOH Alcohol Frequency 1 [facility] Start: 12-05-2020 Alcohol Comment occ [facility] Start: 1995 Sex Assigned At Not on file [facility] Start: 11-17-2021 End: 02-12-2022 Exposure to SARS-CoV-2 (event) Not sure [facility] Tobacco smoking stat [facility] Tobacco smoking consumption unknown [facility] Start: 11-27-2021 End: 05-24-2024 Alcohol intake Lifetime non-drinker (finding) [facility] Start: 1995 Sex Assigned At Female T [facility] Start: 12-17-2023 Sex Assigned At F [facility] Tobacco smoking status Never [facility] Start: 03-28-2023 Tobacco smoking stat [facility] Ex-smoker [facility] History of tobacco use Current smoker [facility] History of tobacco use Cigarette Smoker [facility] Start: 12-17-2023 History of Social function [facility] Start: 11-17-2023 [facility] Start: 01-19-2023 Gender identity Identifies as female gender (finding) [facility] Healthcare Functional Status Date Assessment Result Facility 02-27-2023 Functional Status N/A General [facility] Clinical Notes 12-05-2020 to 06-21-2024 ESSENCE [...] nursing note reviewed. Exam conducted with a piecer present. Vitals: Estimated body mass index is [...] Little Christie PA-C documented in this encounter [facility] 06-07-2024 History of Present illness Narrative Reason [...] nursing note reviewed. Exam conducted with a piecer present. Vitals: Estimated body mass index is [...] Berto Smith DO documented in this encounter [facility] 05-24-2024 History of Present illness Narrative Reason [...] ADD (attention deficit disorder) Anxiety and depression ([facility]) ASCUS of cervix with negative high risk HPV BMI 27.0-27.9,adult Cystic fibrosis carrier Dysmenorrhea Encounter for gynecological examination (general) (routine) without abnormal findings Herpes simplex type 1 infection Intrauterine device surveillance Irritable bowel syndrome LGSIL on Pap smear of cervix Menorrhagia HISTORY PAST MEDICAL HISTORY SOCIAL HISTORY Past Medical History: Diagnosis Date Acne ADD (attention deficit disorder) Anxiety and depression ([facility]) ASCUS of cervix with negative high risk [...] of: ESSENCE Haley documented in this encounter [facility] 05-09-2024 History of Present illness Narrative Reason [...] nursing note reviewed. Exam conducted with a piecer present. Vitals: Estimated body mass index is [...] Berto Smith DO documented in this encounter [facility] 04-11-2024 History of Present illness Narrative [...] of: ESSENCE Haley documented in this encounter [facility] 03-14-2024 History of Present illness Narrative Reason [...] nursing note reviewed. Exam conducted with a piecer present. Vitals: Estimated body mass index is [...] Shalonda Tse LPN on behalf of: Berto Smtih DO documented in this encounter [facility] 02-27-2023 Note Chief Complaint consultation for [...] with excisional biopsy under local anesthesia at [facility]; call with problems/questions. Follow-up No [...] Recorded SARS-CoV-2 (COVID-19) mRNA-1273 vaccine 06/08/2021 Recorded [facility] Comment on above: Result Comment: Elec [...] at later date. documented in this encounter [facility] 01-08-2022 History of Present illness Narrative bp's [...] due to buspirone. documented in this encounter [facility] 12-10-2021 Evaluation note Encounter Date Diagnosis Assessment Notes Dec, Irritable bowel syndrome with diarrhea (ICD-10 - K58.0) Continue medications without change Dec, Epigastric pain (ICD-10 - R10.13) Dec, Chronic nausea (ICD-10 - R11.0) Dec, Family history of carcinoma in situ of anal canal (ICD-10 - Z84.89) Dec, Other Continue Zofran prn Pt to call if symptoms worsen [facility] [employer] Other 05-25-2022 History of Present illness Narrative* Wiley Osorio DO - 11/27/2021 2:00 PM EDT Subjective Patient ID: Leslie Ford is a 26 y.o. female. Chief Complaint Patient presents with Establish Care 26 y.o. female presents to [facility]. History of anxiety and depression. Has been [...] it ( July 2017) [id number] History of Present illness Narrative* Dana Rosario [...] like me to do? [id number] History of Present illness Narrative* James Churchill PA-C - 12/05/2020 8:22 PM EDT Images from the original note were not included. Patient Name: [facility] Location: [place] [id number] Date Of : Date Of Visit: 1995 12/05/2020 MRN# Provider: [id number] James Churchill PA-C Chief Complaint Patient presents [...] urine from irritatingthe sores. ? Take an rnhi-duh-wslgtiz pain medicine, such as acetaminophen (Tylenol), ibuprofen [...] Log into your personal health record on [email or web address] and enter E579 in the Education box to learn more about Genital Herpes: Care Instructions. Current as of: August 31, 2019 Content Version: 12.8 [employer]. Care instructions adapted under license by your healthcare professional. If you have questions about a medical condition or this instruction, always ask your healthcare professional. [employer] disclaims any warranty or liability for your use of this information. documented in this [id number] Instructions* Patient Instructions* James Churchill PA-C - [...] urine from irritatingthe sores. ? Take an zkvy-wry-kjejxsk pain medicine, such as acetaminophen (Tylenol), ibuprofen [...] Log into your personal health record on [email or web address] and enter E579 in the Education box to learn more about Genital Herpes: Care Instructions. Current as of: August 31, 2019 Content Version: 12.8 [employer]. Care instructions adapted under license by your healthcare professional. If you have questions about a medical condition or this instruction, always ask your healthcare professional. [employer] disclaims any warranty or liability for your use of this information. [facility] No data available for this section [facility] Evaluation note* Diagnosis Vaginal sore- Primary documented in this encounter [facility] note* Diagnosis Anxiety- Primary Anxiety state, unspecified [facility] Diagnosis Anxiety- Primary Anxiety state, unspecified Hypotension, unspecified hypotension type documented in this encounter [facility] note* Diagnosis Anxiety- Primary Anxiety state, unspecified [facility] Diagnosis Second trimester state, incidental 22 weeks gestation of Diabetes mellitus screening Screening for diabetes mellitus [facility] Diagnosis Second trimester state, incidental 26 weeks gestation of History of miscarriage Personal history of other genital system and obstetric disorders documented in this encounter [facility] note* Diagnosis 31 weeks gestation of Third trimester state, incidental Gastroesophageal reflux in documented in this encounter [facility] Healthcare[facility] note* Diagnosis Third trimester state, incidental 33 weeks gestation of documented in this encounter [facility] note* Diagnosis Second trimester state, incidental [facility] Diagnosis Third trimester state, incidental 29 weeks gestation of Upper respiratory tract infection, unspecified type [facility] Narrative - Reported* Type Description Date Medical History IBS [employer] Other Hospital Discharge instructions No data available for this section [facility] Progress note No data available for this section [facility] Summary Purpose Family History No Family History Records FoundNo Family History Records FoundNo Family History Records FoundNo Family History Records FoundNo Family History Records FoundNo Family History Records FoundNo Family History Records FoundNo Family History Records FoundNo Family History Records Found Advance Directives No Advanced Directives Records FoundDocuments on File Type Date Recorded 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 Advance Directives and Living Will Documents on File Type Date Recorded 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 Power of Environmental Epidemiologist Additional Source Comments INFORMATION SOURCE (unrecogn ized section and content) DATE CREATED AUTHOR 12/30/2017 [facility] DATE CREATED AUTHOR AUTHOR'S ORGANIZ ATION 12/06/2020 [facility] DATE CREATED AUTHOR AUTHOR'S ORGANIZ ATION 02/16/2022 [facility] DATE CREATED AUTHOR AUTHOR'S ORGANIZ ATION 02/27/2022 [facility] DATE CREATED AUTHOR AUTHOR'S ORGANIZ ATION 11/14/2022 [facility] DATE CREATED AUTHOR AUTHOR'S ORGANIZ ATION 03/02/2023 [facility] DATE CREATED AUTHOR AUTHOR'S ORGANIZ ATION 07/05/2023 [facility] DATE CREATED AUTHOR AUTHOR'S ORGANIZ ATION 03/25/2024 [facility] DATE CREATED AUTHOR AUTHOR'S ORGANIZ ATION 06/24/2024 [facility] EPIC Reason for Visit (unrecogniz [...] Care Teams (unrecognized sec tion and content) Gaming Surveillance Observer Relationship Specialty Start Date End Date Wiley OsorioDO [address] [place] [phone] PCP - General Family Medicine 11/27/21 Gaming Surveillance Observer Relationship Specialty Start Date End Date Wiley Osorio DO [address] [place] [phone] PCP - General Family Medicine 11/27/21 Gaming Surveillance Observer Relationship Specialty Start Date End Date DevonLalitoWiley DO Nathanael [address] [place] [phone] PCP - General Family Medicine 11/27/21 Gaming Surveillance Observer Relationship Specialty Start Date End Date Homar Beltran MD [address] [place] [address] PCP - General Family Medicine 01/20/23 Gaming Surveillance Observer Relationship Specialty Start Date End Date Homar Beltran MD [address] [place] [phone] PCP - General Family Medicine 01/20/23 Gaming Surveillance Observer Relationship Specialty Start Date End Date Homar Beltran MD [address] [place] [facility] [place] [place] [address] PCP - General Family Medicine 01/20/23 Gaming Surveillance Observer Relationship Specialty Start Date End Date Homar Beltran MD [address] [place] [facility] [place] [address] PCP - General Family Medicine 01/20/23 Gaming Surveillance Observer Relationship Specialty Start Date End Date Homar Beltran MD [address] [place] [facility] [place] [address] PCP - General Family Medicine 01/20/23 Gaming Surveillance Observer Relationship Specialty Start Date End Date Homar Beltran MD [address] [place] [facility] [place] [address] PCP - General Family Medicine 01/20/23 Gaming Surveillance Observer Relationship Specialty Start Date End Date Homar Beltran MD [address] [place] [facility] [place] [address] PCP - General Family Medicine 01/20/23 Gaming Surveillance Observer Relationship Specialty Start Date End Date Homar Beltran MD [address] [place] [facility] [place] [address] PCP - General Family Medicine 01/20/23 Gaming Surveillance Observer Relationship Specialty Start Date End Date Homar Beltran MD [address] [place] [facility] [place] [address] PCP - General Family Medicine 01/20/23 Gaming Surveillance Observer Relationship Specialty Start Date End Date Homar Beltran MD [address] [place] [phone] PCP - General Family Medicine 01/20/23 FOR [...] BE BASED ON THE PRIMARY CLINICAL RECORDS. [facility]. provides no warranty or guarantee of the accuracy or completeness of information in this document.
[2024-06-27 09:03] VITALS: BP 131/73; PULSE 88
== END 2024-06-27 10:40 | disposition home or self-care (01) ==
LOC: FBCO 05:58 → FBC 09:00
PROVIDERS: PCP Family Medicine; Visit Provider Obstetrics & Gynecology
DX: O24.419 Gestational diabetes mellitus in pregnancy, unspecified control (principal); O26.893 Other specified pregnancy related conditions, third trimester; Z3A.33 33 weeks gestation of pregnancy
CPT/HCPCS: 59025

== ENCOUNTER 2024-06-30 02:56 | Outpatient (OUT) | payer OTHER, SELFPAY ==
--- OUTSIDE RECORDS SUMMARY | 2024-06-30 03:01 | XMS_ITS | CCD ---
Author Organization [facility] Care Team Providers Care Professor Of Environmental Engineering Name Role Phone KIM SUTHERLAND Unavailable Unavailable WILLY CONKLIN Unavailable Unavailable HOMAR BELTRAN Unavailable Unavailable HOMAR BELTRAN Unavailable Unavailable No, Physician Primary Care Provider Unavailsuman e FINN, PHYSICIAN Primary Care Unavailable JAMES ALCAZAR Attending Unavailable Unavailable Primary Care Provider Unavailsuman e Wiley Osorio DO Primary Care Provider Bret Long Unavailable RICE RICE, WILEY WILEY M~[phone] Attending Unavailable RICE RICE, WILEY WILEY M~[id number] Primary Ca re Unavailable RICE RICE, WILEY WILEY M~[id number] Attending Unavailable RICE RICE, WILEY WILEY M~[id number] Primary Ca re Unavailable RICE RICE, WILEY WILEY M~[id number] Attending Unavailable RICE RICE, WILEY WILEY M~[id number] Primary Ca re Unavailable RICE RICE, WILEY WILEY M~[id number] Attending Unavailable RICE RICE, WILEY WILEY M~[id number] Primary Ca re Unavailable RICE RICE, WILEY WILEY M~[id number] Referring Unavailable RICE RICE, WILEY WILEY M~[id number] Primary Ca re Unavailable ITA REYES Admitting [...] Unavailable Homar Beltran MD Primary Care Provider [phone] SHAHNAZ, LITTLE Attending Unavailable LUIS, BERTO [...] Propensity to adverse reactions (disorder) [facility] Repository Medications Current Medications Medication Drug [...] UA Negative Negative - 4(70) +++ mg/dL [facility] Blood, UA Negative Negative - 50 Angel Luis/mcL [facility] Clarity, UA Clear [facility] Color, UA Yellow [facility] Glucose, UA Negative Negative - 1999(110) ++++ mg/dL [facility] Interpretation and review of laboratory results Abnormal [facility] Ketones, UA Negative Negative - 160(16) ++++ mg/dL [facility] Leukocytes, UA Negative Negative - 500+++ Drew/mcL [facility] Nitrite, UA Negative Negative - Positive [facility] pH, UA 7 5 - 9 [facility] Protein, UA Positive Negative - 2000(20) ++++ mg/dL [facility] Comment on above: 30 Spec Grav, UA 1.02 1 - 1.03 [facility] Urobilinogen, UA 0.2 0.2 - 12 mg/dL [facility] Urinalysis macro (dipstick) panel (U)on 06-07-2024 Bilirubin, UA Negative Negative - 4(70) +++ mg/dL [facility] Blood, UA Negative Negative - 50 Angel Luis/mcL [facility] Clarity, UA Clear [facility] Color, UA Yellow [facility] Glucose, UA Negative Negative - 2000(110) ++++ mg/dL [facility] Interpretation and review of laboratory results Normal [facility] Ketones, UA Negative Negative - 160(16) ++++ mg/dL [facility] Leukocytes, UA Negative Negative - 500+++ Drew/mcL [facility] Nitrite, UA Negative Negative - Positive [facility] pH, UA 7 5 - 9 [facility] Protein, UA Negative Negative - 1999(20) ++++ mg/dL [facility] Spec Grav, UA 1.02 1 - 1.03 [facility] Urobilinogen, UA 0.2 0.2 - 12 mg/dL [facility] Urinalysis macro (dipstick) panel (U)on 05-09-2024 Bilirubin, UA Positive Negative - 4(70) +++ mg/dL [facility] Comment on above: small Blood, UA Negative Negative - 50 Angel Luis/mcL [facility] Clarity, UA Clear [facility] Color, UA Miryam [facility] Glucose, UA Negative Negative - 1999(110) ++++ mg/dL [facility] Interpretation and review of laboratory results Abnormal [facility] Ketones, UA Positive Negative - 160(16) ++++ mg/dL [facility] Comment on above: trace Leukocytes, UA Negative Negative - 500+++ Drew/mcL [facility] Nitrite, UA Negative Negative - Positive [facility] pH, UA 6 5 - 9 [facility] Protein, UA Positive Negative - 1999(20) ++++ mg/dL [facility] Comment on above: 30 mg Spec Grav, UA 1.03 1 - 1.03 [facility] Urobilinogen, UA 0.2 0.2 - 12 mg/dL [facility] Urinalysis macro (dipstick) panel (U)on 04-11-2024 Bilirubin, UA Negative Negative - 4(70) +++ mg/dL [facility] Blood, UA Negative Negative - 50 Angel Luis/mcL [facility] Clarity, UA Clear [facility] Color, UA Yellow [facility] Glucose, UA Negative Negative - 1999(110) ++++ mg/dL [facility] Interpretation and review of laboratory results Normal [facility] Ketones, UA Negative Negative - 160(16) ++++ mg/dL [facility] Leukocytes, UA Negative Negative - 500+++ Drew/mcL [facility] Nitrite, UA Negative Negative - Positive [facility] pH, UA 6.5 5 - 9 [facility] Protein, UA Negative Negative - 1999(20) ++++ mg/dL [facility] Spec Grav, UA 1.020 1 - 1.03 [facility] Urobilinogen, UA 0.2 0.2 - 12 mg/dL [facility] Urinalysis macro (dipstick) panel (U)on 03-14-2024 Bilirubin, UA Negative Negative - 4(70) +++ mg/dL [facility] Blood, UA Negative Negative - 50 Angel Luis/mcL [facility] Clarity, UA Clear [facility] Color, UA Yellow [facility] Glucose, UA Negative Negative - 1999(110) ++++ mg/dL [facility] Interpretation and review of laboratory results Normal [facility] Ketones, UA Negative Negative - 160(16) ++++ mg/dL [facility] Leukocytes, UA Negative Negative - 500+++ Drew/mcL [facility] Nitrite, UA Negative Negative - Positive [facility] pH, UA 7.0 5 - 9 [facility] Protein, UA Negative Negative - 1999(20) ++++ mg/dL [facility] Spec Grav, UA 1.020 1 - 1.03 [facility] Urobilinogen, UA 0.2 0.2 - 12 mg/dL [facility] Facesheeton 03-02-2023 Facesheet [id number]#[id number] CD:127 Normal [facility] Ambulatory Visit Summaryon 0 02-27-2023 Ambulatory [...] pre-eclampsia Insomnia Migraines Overweight Normal [facility] RAD - Ultrasound Reporton RAD - Ultrasound Report [id number]#1.00C D:127 Normal [facility] Physician Referralon 023 Physician Referral [id number] D:127 Normal [facility] INSULINon 11-08-2022 Insulin 7.7 uIU/mL Normal 2.6-24.9 [facility] Comment on above: Performed By: #### V AMAURY, IRON #### [facility] [address] [place] [address] Dr. Chucho Jesus CBC AUTO DIFFon 11-07-2022 BASO # 0.0 103/ul Normal 0.0-0.1 [facility] Comment on above: Performed By: #### V AMAURY, IRON #### [facility] [address] [place] [address] Dr. Chucho Jesus Basophils/100 WBC (Bld) 0.6 % Normal 0.2-2.0 [facility] Comment on above: Performed By: #### V AMAURY, IRON #### [facility] [address] [place] [address] Dr. Chucho Jesus EO # 0.1 103/ul Normal 0.0-0.7 [facility] Comment on above: Performed By: #### V AMAURY, IRON #### [facility] [address] [place] [address] Dr. Chucho Jesus Eosinophils/100 WBC (Bld) 1.4 % Normal 0.9-7.0 [facility] Comment on above: Performed By: #### V AMAURY, IRON #### [facility] [address] [place] [address] Dr. Chucho Jesus Erythrocyte distribution width (RBC) [Ratio] 13.9 % Normal 11.0-15.0 [facility] Comment on above: Performed By: #### V ITAD, IRON #### [facility] [address] [place] [address] Dr. Chucho Jesus Hematocrit (Bld) [Volume fraction] 45.6 % Normal 36.0-48.0 [facility] Comment on above: Performed By: #### V ITAD, IRON #### [facility] [address] [place] [address] Dr. Chucho Jesus Hemoglobin (Bld) [Mass/Vol] 15.1 g/dL Normal 12.0-16.0 [facility] Comment on above: Performed By: #### V ITAD, IRON #### [facility] [address] [place] [address] Dr. Chucho Jesus IG # 0.01 10e3/ul Normal 0.00-0.03 [facility] Comment on above: Performed By: #### V ITAD, IRON #### [facility] [address] [place] [address] Dr. Chucho Jesus IG % 0.1 % Normal 0.0-0.5 [facility] Comment on above: Performed By: #### V ITAD, IRON #### [facility] [address] [place] [address] Dr. Chucho Jesus LYMPH # 1.9 103/ul Normal 1.2-3.8 [facility] Comment on above: Performed By: #### V ITAD, IRON #### [facility] [address] [place] [address] Dr. Chucho Jesus Lymphocytes/100 WBC (Bld) 26.3 % Normal 20.5-60.0 [facility] Comment on above: Performed By: #### V ITAD, IRON #### [facility] [address] [place] [address] Dr. Chucho Jesus MANUAL DIFF REQ NO Normal [facility] Comment on above: Performed By: #### V ITAD, IRON #### [facility] [address] [address] [address] Chucho Jesus MCH (RBC) [Entitic mass] 27.9 pg Normal 26.7-34.0 [facility] Comment on above: Performed By: #### V ITAD, IRON #### [facility] [address] [place] [address] Dr. Chucho Jesus MCHC (RBC) [Mass/Vol] 33.1 g/dL Normal 29.9-35.2 [facility] Comment on above: Performed By: #### V ITAD, IRON #### [facility] [address] [place] [address] Dr. Chucho Jesus MCV (RBC) [Entitic vol] 84.1 fL Normal 81.0-99.0 [facility] Comment on above: Performed By: #### V ITAD, IRON #### [facility] [address] [place] [address] Dr. Chucho Jesus MONO # 0.5 103/ul Normal 0.3-0.8 [facility] Comment on above: Performed By: #### V ITAD, IRON #### [facility] [address] [place] [address] Dr. Chucho Jesus Monocytes/100 WBC (Bld) 7.3 % Normal 1.7-12.0 [facility] Comment on above: Performed By: #### V ITAD, IRON #### [facility] [address] [place] [address] Dr. Chucho Jesus NEUT # 4.6 103/ul Normal 1.4-6.5 [facility] Comment on above: Performed By: #### V ITAD, IRON #### [facility] [address] [place] [address] Dr. Chucho Jesus Neutrophils/100 WBC (Bld) 64.3 % Normal 43.0-75.0 [facility] Comment on above: Performed By: #### V ITAD, IRON #### [facility] [address] [place] [address] Dr. Chucho Jesus Platelet mean volume (Bld) [Entitic vol] 10.9 fL Normal 9.5-13.5 [facility] Comment on above: Performed By: #### V ITAD, IRON #### [facility] [address] [address] [address] Chucho Jesus PLT 226 103/ul Normal 150-450 [facility] Comment on above: Performed By: #### V ITAD, IRON #### [facility] [address] [address] [address] Chucho Jesus RBC 5.42 106/ul Critically high 4.20-5.40 [facility] Comment on above: Performed By: #### V ITAD, IRON #### [facility] [address] [place] [address] Dr. Chucho Jesus WBC 7.2 103/ul Normal 4.0-11.0 [facility] Comment on above: Performed By: #### V ITAD, IRON #### [facility] [address] [place] [address] Dr. Chucho Jesus FREE THYROXINE INDEX T7on FTI 3.29 Normal 1.30-4.50 [facility] Comment on above: Performed By: #### V ITAD, IRON #### [facility] [address] [place] [address] Dr. Chucho Jesus T3U 35.0 % Normal 30.0-39.0 [facility] Comment on above: Performed By: #### V ITAD, IRON #### [facility] [address] [place] [address] Dr. Chucho Jesus T4 [Mass/Vol] 9.40 ug/dL Normal 4.80-13.90 [facility] Comment on above: Performed By: #### V ITAD, IRON #### [facility] [address] [place] [address] Dr. Chucho Jesus GLYCOHEMOGLOBIN A1Con 2022 ADA RECOMMENDATION SEE BELOW Normal [facility] Comment on above: Result Comment: ADA RECOMMENDED LIMIT 4.0 - 6.0 ADA THERAPEUTIC TARGET < 7.0 ACTION SUGGESTED > 7.0 Performed By: #### A 1C #### [facility] [address] [address] [address] Chucho Jesus Glucose [Mass/Vol] 94 mg/dL Normal [facility] Comment on above: Performed By: #### A 1C #### [facility] [address] [address] [address] Chucho Jesus HbA1c (Bld) [Mass fraction] 4.9 % Normal 4.5-6.2 [facility] Comment on above: Performed By: #### A 1C #### [facility] [address] [address] [address] Chucho Jesus IRONon 11-07-2022 Iron [Mass/Vol] 81.0 ug/dL Normal 50.0-170.[address] [facility] Comment on above: Performed By: #### V ITAD, IRON #### [facility] [address] [place] [address] Dr. Chucho Jesus LIPID PROFILEon 11-07-2022 CHOL-HDL RATIO NORM SEE BELOW Normal [facility] Comment on above: Result Comment: 3.3 - 4.4 LOW RISK 4.4 - 7.1 AVERAGE RISK 7.1 - 11.0 MODERATE RISK >11.0 HIGH RISK Performed By: #### V ITAD, IRON #### [facility] [address] [address] [address] Chucho Jesus Cholesterol [Mass/Vol] 126 mg/dL Normal <=200 [facility] Comment on above: Performed By: #### V ITAD, IRON #### [facility] [address] [address] [address] Chucho Jesus Cholesterol in HDL [Mass/Vol] 38 mg/dL Critically low 40-60 [facility] Comment on above: Performed By: #### V ITAD, IRON #### [facility] [address] [address] [address] Chucho Jesus Cholesterol in LDL [Mass/Vol] 79.4 mg/dL Normal [facility] Comment on above: Performed By: #### V ITAD, IRON #### [facility] [address] [address] [address] Chucho Jesus Cholesterol.total/C holesterol in HDL [Mass ratio] 3.3 {ratio} Normal [facility] Comment on above: Performed By: #### V ITAD, IRON #### [facility] [address] [address] [address] Chucho Jesus HDL NORMAL > or = 60 mg/dl - LO W CARDIOVASCULAR RISK <40 mg/dl - HIGH CARDIOVASCULAR RISK Normal [facility] Comment on above: Performed By: #### V ITAD, IRON #### [facility] [address] [address] [address] Chucho Jesus LDL CALC NORMAL SEE BELOW Normal [facility] Comment on above: Result Comment: <100 mg/dl OPTIMAL 100 - 129 mg/dl NEAR OR ABOVE OPTIMAL 130 - 159 mg/dl BORDERLINE HIGH 160 - 189 mg/dl HIGH >190 mg/dl VERY HIGH Performed By: #### V ITAD, IRON #### [facility] [address] [address] [address] Chucho Jesus Triglyceride [Mass/Vol] 43 mg/dL Normal <=150 [facility] Comment on above: Performed By: #### V ITAD, IRON #### [facility] [address] [address] [address] Chucho Jesus VLDL CALC 8.6 mg/dL Normal [facility] Comment on above: Performed By: #### V ITAD, IRON #### [facility] [address] [address] [address] Chucho Jesus PROF 14(COMP METB)on 023 Albumin [Mass/Vol] 4.2 g/dL Normal 3.4-5.0 [facility] Comment on above: Performed By: #### V ITAD, IRON #### [facility] [address] [address] [address] Chucho Jesus Albumin/Globulin [Mass ratio] 1.1 {ratio} Normal [facility] Comment on above: Performed By: #### V ITAD, IRON #### [facility] [address] [address] [address] Chucho Jesus ALP [Catalytic activity/Vol] 93 U/L Normal 46-116 [facility] Comment on above: Performed By: #### V ITAD, IRON #### [facility] [address] [address] [address] Chucho Jesus ALT [Catalytic activity/Vol] 16 U/L Normal 14-59 [facility] Comment on above: Performed By: #### V ITAD, IRON #### [facility] [address] [address] [address] Chucho Jesus Anion gap [Moles/Vol] 14.3 mmol/L Normal [facility] Comment on above: Performed By: #### V ITAD, IRON #### [facility] [address] [address] [address] Chucho Jesus AST [Catalytic activity/Vol] 16 U/L Normal 15-37 [facility] Comment on above: Performed By: #### V ITAD, IRON #### [facility] [address] [address] [address] Chucho Jesus Bilirubin [Mass/Vol] 1.0 mg/dL Normal 0.2-1.0 [facility] Comment on above: Performed By: #### V ITAD, IRON #### [facility] [address] [address] [address] Chucho Jesus Calcium [Mass/Vol] 9.4 mg/dL Normal 8.5-10.1 [facility] Comment on above: Performed By: #### V ITAD, IRON #### [facility] [address] [address] [address] Chucho Jesus Chloride [Moles/Vol] 103 mmol/L Normal 98-107 [facility] Comment on above: Performed By: #### V ITAD, IRON #### [facility] [address] [address] [address] Chucho Jesus CO2 [Moles/Vol] 24.9 mmol/L Normal 21.0-32.0 [facility] Comment on above: Performed By: #### V ITAD, IRON #### [facility] [address] [address] [address] Chucho Jesus Creatinine [Mass/Vol] 0.68 mg/dL Normal 0.55-1.02 [facility] Comment on above: Performed By: #### V ITAD, IRON #### [facility] [address] [address] [address] Chucho Jesus EGFR-AF CANADIAN >60 Normal >=60 [facility] Comment on above: Performed By: #### V ITAD, IRON #### [facility] [address] [address] [address] Chucho Jesus EGFR-NON AF CANADIAN >60 Normal >=60 [facility] Comment on above: Performed By: #### V ITAD, IRON #### [facility] [address] [address] [address] Chucho Jesus Globulin (S) [Mass/Vol] 3.9 g/dL Normal [facility] Comment on above: Performed By: #### V ITAD, IRON #### [facility] [address] [address] [address] Chucho Jesus Glucose [Mass/Vol] 89 mg/dL Normal 74-106 [facility] Comment on above: Performed By: #### V ITAD, IRON #### [facility] [address] [address] [address] Chucho Jesus Potassium [Moles/Vol] 4.2 mmol/L Normal 3.5-5.1 [facility] Comment on above: Performed By: #### V ITAD, IRON #### [facility] [address] [address] [address] Chucho Jesus Protein [Mass/Vol] 8.1 g/dL Normal 6.4-8.2 [facility] Comment on above: Performed By: #### V ITAD, IRON #### [facility] [address] [address] [address] Chucho Jesus Sodium [Moles/Vol] 138 mmol/L Normal 136-145 [facility] Comment on above: Performed By: #### V ITAD, IRON #### [facility] [address] [address] [address] Chucho Jesus Urea nitrogen [Mass/Vol] 9.0 mg/dL Normal 7.0-18.0 [facility] Comment on above: Performed By: #### V ITAD, IRON #### [facility] [address] [address] [address] Chucho Jesus Urea nitrogen/Creatinine [Mass ratio] 13.2 mg/mg Normal [facility] Comment on above: Performed By: #### V ITAD, IRON #### [facility] [address] [address] [address] Chucho Jesus TSHon 11-07-2022 TSH 1.668 uIU/mL Normal 0.358-3.740 [facility] Comment on above: Performed By: #### V ITAD, IRON #### [facility] [address] [address] [address] Chucho Jesus Covid-19 PCR (CVDTBH)on SARS-CoV-2 (COVID-19) RNA DMITRY+probe Ql (Unsp spec) Not detected Normal NOT DETECTED [facility] Comment on above: Result Comment: When [...] for this test is supported by the [employer] Supervisor of Health and Human Service's declaration that [...] Performed By: #### V ITAD, IRON #### [facility] [address] [place], [place] [address] Dr. Chucho Jesus Covid-19 PCR (CVDTBH)on SARS-CoV-2 (COVID-19) RNA DMITRY+probe Ql (Unsp spec) Not detected Normal NOT DETECTED [facility] Comment on above: Result Comment: When [...] for this test is supported by the [place] of Health and Human Service's declaration that [...] used). Performed By: #### C VDTB #### [facility] [address] [place] [address] Dr. Chucho Jesus INFLUENZA A AND B [facility] 08-11 [facility] SEE BELOW Normal [facility] Comment on above: Result Comment: Nega tive for Flu A protein angiten. Infection due to Flu A cannot be ruled out. Flu A angiten in the sample may be below the detection limit of the test. Performed By: #### I NFLUAB #### [facility] [address] [place] [address] Dr. [facility]uch[facility] Normal [facility] Comment on above: Result Comment: Nega tive for Flu B protein antigen. Infection due to Flu B cannot be ruled out. Flu B antigen in the sample may be below the detection limit of the test. Performed By: #### I NFLUAB #### [facility] [address] [place] [address] Dr. Chucho Jesus INFLUENZA A AG Negative Normal NEGATIVE SEE COMMENT [facility] Comment on above: Performed By: #### I NFLUAB #### [facility] [address] [place] [address] Dr. Chucho Jesus INFLUENZA B AG Negative Normal NEGATIVE SEE COMMENT [facility] Comment on above: Performed By: #### I NFLUAB #### [facility] [address] [address] [address] Chucho Jesus Covid-19 PCR ([facility])on 05-07 SARS-CoV-2 (COVID-19) RNA DMITRY+probe Ql (Unsp spec) Not detected Normal NOT DETECTED [facility] Comment on above: Result Comment: When [...] for this test is supported by the [place] of Health and Human Service's declaration that [...] Performed By: #### V ITAD, IRON #### [facility] [address] [place] [address] Dr. Chucho Jesus INFLUENZA A AND B AGon 05-26 [facility] SEE BELOW Normal [facility] Comment on above: Result Comment: Nega tive for Flu A protein angiten. Infection due to Flu A cannot be ruled out. Flu A angiten in the sample may be below the detection limit of the test. Performed By: #### V ITAD, IRON #### [facility] [address] [address] [address] [facility] SEE BELOW Normal [facility] Comment on above: Result Comment: Nega tive for Flu B protein antigen. Infection due to Flu B cannot be ruled out. Flu B antigen in the sample may be below the detection limit of the test. Performed By: #### V ITAD, IRON #### [facility] [address] [address] [address] Chucho Jesus INFLUENZA A AG Negative Normal NEGATIVE SEE COMMENT [facility] Comment on above: Performed By: #### V ITAD, IRON #### [facility] [address] [place] [address] Dr. Chucho Jesus INFLUENZA B AG Negative Normal NEGATIVE SEE COMMENT [facility] Comment on above: Performed By: #### V ITAD, IRON #### [facility] [address] [address] [address] Chucho Jesus INTERNAL CONTROLS Within Normal Limits Normal Wi thin Normal Limits [facility] Comment on above: Performed By: #### V ITAD, IRON #### [facility] [address] [place] [address] Dr. Chucho Jesus ER URINE PROFILEon 2 Bilirubin Ql (U) Negative Normal NEGATIVE [facility] Comment on above: Performed By: #### V ITAD, IRON #### [facility] [address] [place] [address] Dr. Chucho Jesus Clarity (U) CLEAR Normal CLEAR [facility] Comment on above: Performed By: #### V ITAD, IRON #### [facility] [address] [place] [address] Dr. Chucho Jesus Color (U) YELLOW Normal YELLOW [facility] Comment on above: Performed By: #### V ITAD, IRON #### [facility] [address] [place] [address] Dr. Chucho BAHENA A micrscopic examination will be performed if indicated. Normal [facility] Comment on above: Performed By: #### V ITAD, IRON #### [facility] [address] [address] [address] Chucho Jesus Glucose Ql (U) Negative Normal NEGATIVE [facility] Comment on above: Performed By: #### V ITAD, IRON #### [facility] [address] [place] [address] Dr. Chucho Jesus Hemoglobin Ql (U) Negative Normal NEGATIVE [facility] Comment on above: Performed By: #### V ITAD, IRON #### [facility] [address] [place] [address] Dr. Chucho Jesus Ketones Ql (U) >=80 Abnormal NEGATIVE [facility] Comment on above: Performed By: #### V ITAD, IRON #### [facility] [address] [place] [address] Dr. Chucho Jesus LEUKOCYTES Negative Normal NEGATIVE [facility] Comment on above: Performed By: #### V ITAD, IRON #### [facility] [address] [place] [address] Dr. Chucho Jesus Nitrite Ql (U) Negative Normal NEGATIVE [facility] Comment on above: Performed By: #### V ITAD, IRON #### [facility] [address] [place] [address] Dr. Chucho Jesus pH (U) 6.0 [pH] Normal 5-9 [facility] Comment on above: Performed By: #### V ITAD, IRON #### [facility] [address] [place] [address] Dr. Chucho Jesus Protein (U) [Mass/Vol] 100 mg/dL Abnormal NEGATIVE/ TRACE [facility] Comment on above: Performed By: #### V ITAD, IRON #### [facility] [address] [place] [address] Dr. Chucho Jesus SPEC GRAVITY >=1.030 Abnormal 1.005-<=1.025 [facility] Comment on above: Performed By: #### V ITAD, IRON #### [facility] [address] [place] [address] Dr. Chucho Jesus UR MICRO IND INDICATED Normal [facility] Comment on above: Performed By: #### V ITAD, IRON #### [facility] [address] [place] [address] Dr. Chucho Jesus Urobilinogen Qn (U) 0.2 {Chelsea'U}/dL Normal 0.2 - 1. 0 [facility] Comment on above: Performed By: #### V ITAD, IRON #### [facility] [address] [place] [address] Dr. Chucho Jesus URon 05-22-2022 , QUAL Negative Normal NEGATIVE [facility] Comment on above: Performed By: #### V ITAD, IRON #### [facility] [address] [place] [address] Dr. Chucho Jesus URINE MICROSCOPIC ONLYon BACTERIA NONE SEEN Normal NONE SEEN [facility] Comment on above: Performed By: #### V ITAD, IRON #### [facility] [address] [address] [address] Chucho Jesus Bacteria identified Cx Nom (U) NOT INDICATED Normal [facility] Comment on above: Performed By: #### V ITAD, IRON #### [facility] [address] [place] [address] Dr. Chucho Jesus CAST NONE SEEN Normal NONE SEEN [facility] Comment on above: Performed By: #### V ITAD, IRON #### [facility] [address] [place] [address] Dr. Chucho Jesus Crystals LM Nom (Urine sed) NONE SEEN Normal NONE SEEN [facility] Comment on above: Performed By: #### V ITAD, IRON #### [facility] [address] [place] [address] Dr. Chucho Jesus Epithelial cells LM Ql (Urine sed) FEW Abnormal NONE SEEN /RARE [facility] Comment on above: Performed By: #### V ITAD, IRON #### [facility] [address] [place] [address] Dr. Chucho Jesus MUCOUS MODERATE Abnormal NONE SEEN [facility] Comment on above: Performed By: #### V ITAD, IRON #### [facility] [address] [place] [address] Dr. Chucho Jesus RBC NONE SEEN Abnormal 0-2 [facility] Comment on above: Performed By: #### V ITAD, IRON #### [facility] [address] [place] [address] Dr. Chucho Jesus WBC NONE SEEN Normal NONE SEEN [facility] Comment on above: Performed By: #### V ITAD, IRON #### [facility] [address] [place] [address] Dr. Chucho Jesus XR LSPINE 2_3 VIEWSon [...] SHAINA CAMPOS Date: 2022-05-22 12:28 Normal [facility] INSULINon 04-25-2022 Insulin 10.4 uIU/mL Normal 2.6-24.9 [facility] Comment on above: Performed By: #### V ITAD, IRON #### [facility] [address] [place] [address] Dr. Chucho Jesus CBC AUTO DIFFon 04-24-2022 BASO # 0.0 103/ul Normal 0.0-0.1 [facility] Comment on above: Performed By: #### C BC #### [facility] [address] [place] [address] Dr. Chucho Jesus Basophils/100 WBC (Bld) 0.6 % Normal 0.2-2.0 [facility] Comment on above: Performed By: #### C BC #### [facility] [address] [place] [address] Dr. Chucho Jesus EO # 0.1 103/ul Normal 0.0-0.7 [facility] Comment on above: Performed By: #### C BC #### [facility] [address] [place] [address] Dr. Chucho Jesus Eosinophils/100 WBC (Bld) 1.8 % Normal 0.9-7.0 [facility] Comment on above: Performed By: #### C BC #### [facility] [address] [place] [address] Dr. Chucho Jesus Erythrocyte distribution width (RBC) [Ratio] 12.9 % Normal 11.0-15.0 [facility] Comment on above: Performed By: #### C BC #### [facility] [address] [place] [address] Dr. Chucho Jesus Hematocrit (Bld) [Volume fraction] 45.6 % Normal 36.0-48.0 [facility] Comment on above: Performed By: #### C BC #### [facility] [address] [place] [address] Dr. Chucho Jesus Hemoglobin (Bld) [Mass/Vol] 14.7 g/dL Normal 12.0-16.0 [facility] Comment on above: Performed By: #### C BC #### [facility] [address] [place] [address] Dr. Chucho Jesus IG # 0.02 10e3/ul Normal 0.00-0.03 [facility] Comment on above: Performed By: #### C BC #### [facility] [address] [place] [address] Dr. Chucho Jesus IG % 0.3 % Normal 0.0-0.5 [facility] Comment on above: Performed By: #### C BC #### [facility] [address] [place] [address] Dr. Cuhcho Jesus LYMPH # 1.6 103/ul Normal 1.2-3.8 [facility] Comment on above: Performed By: #### C BC #### [facility] [address] [place] [address] Dr. Chucho Jesus Lymphocytes/100 WBC (Bld) 24.5 % Normal 20.5-60.0 [facility] Comment on above: Performed By: #### C BC #### [facility] [address] [place] [address] Dr. Chucho Jesus MANUAL DIFF REQ NO Normal [facility] Comment on above: Performed By: #### C BC #### [facility] [address] [place] [address] Dr. Chucho Jesus MCH (RBC) [Entitic mass] 28.4 pg Normal 26.7-34.0 [facility] Comment on above: Performed By: #### C BC #### [facility] [address] [place] [address] Dr. Chucho Jesus MCHC (RBC) [Mass/Vol] 32.2 g/dL Normal 29.9-35.2 [facility] Comment on above: Performed By: #### C BC #### [facility] [address] [place] [address] Dr. Chucho Jesus MCV (RBC) [Entitic vol] 88.2 fL Normal 81.0-99.0 [facility] Comment on above: Performed By: #### C BC #### [facility] [address] [place] [address] Dr. Chucho Jesus MONO # 0.5 103/ul Normal 0.3-0.8 [facility] Comment on above: Performed By: #### C BC #### [facility] [address] [place] [address] Dr. Chucho Jesus Monocytes/100 WBC (Bld) 7.4 % Normal 1.7-12.0 [facility] Comment on above: Performed By: #### C BC #### [facility] [address] [place] [address] Dr. Chucho Jesus NEUT # 4.4 103/ul Normal 1.4-6.5 [facility] Comment on above: Performed By: #### C BC #### [facility] [address] [place] [address] Dr. Chucho Jesus Neutrophils/100 WBC (Bld) 65.4 % Normal 43.0-75.0 [facility] Comment on above: Performed By: #### C BC #### [facility] [address] [place] [address] Dr. Chucho Jesus Platelet mean volume (Bld) [Entitic vol] 9.9 fL Normal 9.5-13.5 [facility] Comment on above: Performed By: #### C BC #### [facility] [address] [place] [address] Dr. Chucho Jesus PLT 225 103/ul Normal 150-450 [facility] Comment on above: Performed By: #### C BC #### [facility] [address] [place] [address] Dr. Chucho Jesus RBC 5.17 106/ul Normal 4.20-5.40 [facility] Comment on above: Performed By: #### C BC #### [facility] [address] [place] [address] Dr. Chucho Jesus WBC 6.7 103/ul Normal 4.0-11.0 [facility] Comment on above: Performed By: #### C BC #### [facility] [address] [place] [address] Dr. Chucho Jesus FREE THYROXINE INDEX T7on FTI 3.29 Normal 1.30-4.50 [facility] Comment on above: Performed By: #### T 7, TSH, LIPID, CMP #### [facility] [address] [place] [address] Dr. Chucho Jesus T3U 27.0 % Critically low 30.0-39.0 [facility] Comment on above: Performed By: #### T 7, TSH, LIPID, CMP #### [facility] [address] [place] [address] Dr. Chucho Jesus T4 [Mass/Vol] 12.20 ug/dL Normal 4.80-13.90 [facility] Comment on above: Performed By: #### T 7, TSH, LIPID, CMP #### [facility] [address] [place] [address] Dr. Chucho Jesus GLYCOHEMOGLOBIN A1Con 2021 ADA RECOMMENDATION SEE BELOW Normal [facility] Comment on above: Result Comment: ADA RECOMMENDED LIMIT 4.0 - 6.0 ADA THERAPEUTIC TARGET < 7.0 ACTION SUGGESTED > 7.0 Performed By: #### A 1C #### [facility] [address] [place] [address] Dr. hCucho Jesus Glucose [Mass/Vol] 105 mg/dL Normal [facility] Comment on above: Performed By: #### A 1C #### [facility] [address] [place], [place] [id number] Dr. Chucho Jesus HbA1c (Bld) [Mass fraction] 5.3 % Normal 4.5-6.2 [facility] Comment on above: Performed By: #### A 1C #### [facility] [address] [place] [address] Dr. Chucho Jesus IRONon 04-24-2022 Iron [Mass/Vol] 48.0 ug/dL Critically low 50.0-170.0 [facility] Comment on above: Performed By: #### V ITAD, IRON #### [facility] [address] [place] [address] Dr. Chucho Jesus LIPID PROFILEon 04-24-2022 CHOL-HDL RATIO NORM SEE BELOW Normal [facility] Comment on above: Result Comment: 3.3 - 4.4 LOW RISK 4.4 - 7.1 AVERAGE RISK 7.1 - 11.0 MODERATE RISK >11.0 HIGH RISK Performed By: #### V ITAD, IRON #### [facility] [address] [place] [address] Dr. Chucho Jesus Cholesterol [Mass/Vol] 184 mg/dL Normal <=200 [facility] Comment on above: Performed By: #### V ITAD, IRON #### [facility] [address] [place] [address] Dr. Chucho Jesus Cholesterol in HDL [Mass/Vol] 55 mg/dL Normal 40-60 [facility] Comment on above: Performed By: #### V ITAD, IRON #### [facility] [address] [place] [address] Dr. Chucho Jesus Cholesterol in LDL [Mass/Vol] 116.6 mg/dL Normal [facility] Comment on above: Performed By: #### V ITAD, IRON #### [facility] [address] [place] [address] Dr. Chucho Jesus Cholesterol.total/C holesterol in HDL [Mass ratio] 3.3 {ratio} Normal [facility] Comment on above: Performed By: #### V ITAD, IRON #### [facility] [address] [place] [address] Dr. Chucho Jesus HDL NORMAL > or = 60 mg/dl - LO W CARDIOVASCULAR RISK <40 mg/dl - HIGH CARDIOVASCULAR RISK Normal [facility] Comment on above: Performed By: #### V ITAD, IRON #### [facility] [address] [address] [address] Chucho Jesus LDL CALC NORMAL SEE BELOW Normal [facility] Comment on above: Result Comment: <100 mg/dl OPTIMAL 100 - 129 mg/dl NEAR OR ABOVE OPTIMAL 130 - 159 mg/dl BORDERLINE HIGH 160 - 189 mg/dl HIGH >190 mg/dl VERY HIGH Performed By: #### V ITAD, IRON #### [facility] [address] [address] [address] Chucho Jesus Triglyceride [Mass/Vol] 62 mg/dL Normal <=150 [facility] Comment on above: Performed By: #### V ITAD, IRON #### [facility] [address] [address] [address] Chucho Jesus VLDL CALC 12.4 mg/dL Normal [facility] Comment on above: Performed By: #### V ITAD, IRON #### [facility] [address] [address] [address] Chucho Jesus PROF 14(COMP METB)on 04-24- 022 Albumin [Mass/Vol] 3.7 g/dL Normal 3.4-5.0 [facility] Comment on above: Performed By: #### T 7, TSH, LIPID, CMP #### [facility] [address] [address] [address] Chucho Jesus Albumin/Globulin [Mass ratio] 0.9 {ratio} Normal [facility] Comment on above: Performed By: #### T 7, TSH, LIPID, CMP #### [facility] [address] [address] [address] Chucho Jesus ALP [Catalytic activity/Vol] 74 U/L Normal 46-116 [facility] Comment on above: Performed By: #### T 7, TSH, LIPID, CMP #### [facility] [address] [address] [address] Chucho Jesus ALT [Catalytic activity/Vol] 16 U/L Normal 14-59 [facility] Comment on above: Performed By: #### T 7, TSH, LIPID, CMP #### [facility] [address] [place] [address] Dr. Chucho Jesus Anion gap [Moles/Vol] 12.3 mmol/L Normal [facility] Comment on above: Performed By: #### T 7, TSH, LIPID, CMP #### [facility] [address] [place] [address] Dr. Chucho Jesus AST [Catalytic activity/Vol] 13 U/L Critically low 15-37 [facility] Comment on above: Performed By: #### T 7, TSH, LIPID, CMP #### [facility] [address] [place] [address] Dr. Chucho Jesus Bilirubin [Mass/Vol] 0.4 mg/dL Normal 0.2-1.0 [facility] Comment on above: Performed By: #### T 7, TSH, LIPID, CMP #### [facility] [address] [place] [address] Dr. Chucho Jesus Calcium [Mass/Vol] 8.9 mg/dL Normal 8.5-10.1 [facility] Comment on above: Performed By: #### T 7, TSH, LIPID, CMP #### [facility] [address] [place] [address] Dr. Chucho Jesus Chloride [Moles/Vol] 105 mmol/L Normal 98-107 [facility] Comment on above: Performed By: #### T 7, TSH, LIPID, CMP #### [facility] [address] [place] [address] Dr. Chucho Jesus CO2 [Moles/Vol] 26.6 mmol/L Normal 21.0-32.0 [facility] Comment on above: Performed By: #### T 7, TSH, LIPID, CMP #### [facility] [address] [place] [address] Dr. Chucho Jesus Creatinine [Mass/Vol] 0.68 mg/dL Normal 0.55-1.02 [facility] Comment on above: Performed By: #### T 7, TSH, LIPID, CMP #### [facility] [address] [address] [address] Chucho Jesus EGFR-AF CANADIAN >60 Normal >=60 [facility] Comment on above: Performed By: #### T 7, TSH, LIPID, CMP #### [facility] [address] [address] [address] Chucho Jesus EGFR-NON AF CANADIAN >60 Normal >=60 [facility] Comment on above: Performed By: #### T 7, TSH, LIPID, CMP #### [facility] [address] [address] [address] Chucho Jesus Globulin (S) [Mass/Vol] 4.3 g/dL Normal [facility] Comment on above: Performed By: #### T 7, TSH, LIPID, CMP #### [facility] [address] [address] [address] Chucho Jesus Glucose [Mass/Vol] 87 mg/dL Normal 74-106 [facility] Comment on above: Performed By: #### T 7, TSH, LIPID, CMP #### [facility] [address] [address] [address] Chucho Jesus Potassium [Moles/Vol] 3.9 mmol/L Normal 3.5-5.1 [facility] Comment on above: Performed By: #### T 7, TSH, LIPID, CMP #### [facility] [address] [address] [address] Chucho Jesus Protein [Mass/Vol] 8.0 g/dL Normal 6.4-8.2 [facility] Comment on above: Performed By: #### T 7, TSH, LIPID, CMP #### [facility] [address] [address] [address] Chucho Jesus Sodium [Moles/Vol] 140 mmol/L Normal 136-145 [facility] Comment on above: Performed By: #### T 7, TSH, LIPID, CMP #### [facility] [address] [address] [address] Chucho Jesus Urea nitrogen [Mass/Vol] 9.0 mg/dL Normal 7.0-18.0 [facility] Comment on above: Performed By: #### T 7, TSH, LIPID, CMP #### [facility] [address] [address] [address] Chucho Jesus Urea nitrogen/Creatinine [Mass ratio] 13.2 mg/mg Normal [facility] Comment on above: Performed By: #### T 7, TSH, LIPID, CMP #### [facility] [address] [address] [address] Chucho Jesus TSHon 04-24-2022 TSH 1.127 uIU/mL Normal 0.358-3.740 [facility] Comment on above: Performed By: #### T 7, TSH, LIPID, CMP #### [facility] [address] [place] [address] Dr. Chucho Jesus VITAMIN D 25 OHon 04-24-2022 VIT D 25-OH 35.2 ng/mL Normal [facility] Comment on above: Performed By: #### V ITAD, IRON #### [facility] [address] [place] [address] Dr. Chucho Jesus VIT D RANGES SEE BELOW Normal [facility] Comment on above: Result Comment: <20 ng/mL Vit D deficient 20 - <30 ng/mL Vit D insufficient 30 - 100 ng/mL Vit D sufficient >100 ng/mL Potential Toxicity Performed By: #### V ITAD, IRON #### [facility] [address] [place] [address] Dr. Chucho Jesus HCG ( test) Ql (U)O rdered By: James Churchill on 12-05-2020 Internal Control Pass [facility] Interpretation and review of laboratory results Normal [facility] POC , UrineOrdered By: James Churchill on 12-05-2020 HCG ( test) Ql (U) Negative Negative [facility] CTA CHEST WITH CONTRASTon CTA [...] by:dAy Tran MD03/25/17Edited Result - FINAL Normal [facility] Basic Metabolic Profon 02-19 (cont.) Normal [facility] Comment on above: Result Comment: Aver age GFR for 20-29 years old: 116 mL/min/1.73sq mChronic Kidney Disease: <60 mL/min/1.73sq mKidney failure: <15 mL/min/1.73sq meGFR calculated using average adult body mass. Additional eGFR calculator available at:http://[email or web address]/multiple_crcl_2012.htm Performed By: #### C DP, BMP, TROPI ####[address] [place] [address] Anion gap 14 mmol/L Normal - [facility] Comment on above: Performed By: #### C DP, BMP, TROPI ####[address] [place] [address](120 BUN/CRE Ratio 13 Normal - [facility] Comment on above: Performed By: #### C DP, BMP, TROPI ####[address] [place] [address] Calcium 9.2 mg/dL Normal 8.6-10.4 [facility] Comment on above: Performed By: #### C DP, BMP, TROPI ####[address] [place] [address] Chloride 105 mmol/L Normal 98-107 [facility] Comment on above: Performed By: #### C DP, BMP, TROPI ####[address] [place] [address] CO2 23 mmol/L Normal 20-31 [facility] Comment on above: Performed By: #### C DP, BMP, TROPI ####[address] [place] [address] Creatinine 0.55 mg/dL Normal 0.50-0.90 [facility] Comment on above: Performed By: #### C DP, BMP, TROPI ####[address] [place] [address] eGFR (non-black) mL/min/{1.73_m2} Normal >60 [facility] Comment on above: Performed By: #### C DP, BMP, TROPI ####[address] [place] [address] Glucose mass conc 96 mg/dL Normal 70-99 [facility] Comment on above: Performed By: #### C DP, BMP, TROPI ####[address] [place] [address] Potassium molar conc 3.6 mmol/L Low 3.7-5.3 [facility] Comment on above: Performed By: #### C DP, BMP, TROPI ####[address] [place] [address] Sodium 142 mmol/L Normal 135-144 [facility] Comment on above: Performed By: #### C DP, BMP, TROPI ####[address] [place] [address] Staging: Normal [facility] Comment on above: Result Comment: Stag e 1: Some kidney damage normal GFRStage 2: Mild kidney damage GFR 60-89Stage 3: Moderate kidney damage GFR 30-59Stage 4: Severe kidney damage GFR 15-29Stage 5: Severe kidney damage GFR <15ESRD - chronic treatment by dialysis or transplantPerformed at [address] [place] [address] Performed By: #### C DP, BMP, TROPI ####[address] [place] [address] Urea nitrogen 7 mg/dL Normal 6-20 [facility] Comment on above: Performed By: #### C DP, BMP, TROPI ####[address] [id number] CBC with Diffon 02-19-2017 Abs. Basophil 0.00 k/uL Normal 0.0-0.2 [facility] Comment on above: Result Comment: Perf ormed at [address] [place] [address] Performed By: #### C DP, BMP, TROPI ####[address] [address] Abs.Neutrophil (Seg) 7.10 k/uL Normal 1.8-8.0 [facility] Comment on above: Performed By: #### C DP, BMP, TROPI ####[address] , [place] [address] Basophils/100 WBC Auto (Bld) 0 % Normal [facility] Comment on above: Performed By: #### C DP, BMP, TROPI ####[address] [place] [address] Eosinophils 0.30 10*3/uL Normal 0.0-0.4 [facility] Comment on above: Performed By: #### C DP, BMP, TROPI ####[address] [place] [address] Eosinophils/100 leukocytes 3 % Normal [facility] Comment on above: Performed By: #### C DP, BMP, TROPI ####[address] [place] [address] Erythrocyte distribution width Auto Ratio (RBC) 13.6 % Normal 12.1-15.2 [facility] Comment on above: Performed By: #### C DP, BMP, TROPI ####[address] [place] [address] Erythrocytes (RBC) 5.03 10*6/uL Normal 4.0-5.2 [facility] Comment on above: Performed By: #### C DP, BMP, TROPI ####[address] [place] [address] Hematocrit (HCT) 40.2 % Normal 36-46 [facility] Comment on above: Performed By: #### C DP, BMP, TROPI ####[address] [place] [address] Hemoglobin mass conc (Bld) 13.2 g/dL Normal 12.0-16.0 [facility] Comment on above: Performed By: #### C DP, BMP, TROPI ####[address] [place] [address] Lymphocytes 2.90 10*3/uL Normal 1.2-5.2 [facility] Comment on above: Performed By: #### C DP, BMP, TROPI ####[address] [place] [address] Lymphocytes/100 leukocytes 27 % Normal [facility] Comment on above: Performed By: #### C DP, BMP, TROPI ####[address] [place] [address] MCH 26.2 pg Normal 26-34 [facility] Comment on above: Performed By: #### C DP, BMP, TROPI ####[address] , [facility] MCHC mass conc (RBC) 32.8 g/dL Normal 31-37 [facility] Comment on above: Performed By: #### C DP, BMP, TROPI ####[address] , [facility] MCV 79.9 fL Low 80-100 [facility] Comment on above: Performed By: #### C DP, BMP, TROPI ####[address] [place] [address] Monocytes 0.60 10*3/uL Normal 0.0-1.0 [facility] Comment on above: Performed By: #### C DP, BMP, TROPI ####[address] , [place] [address] Monocytes/100 leukocytes 5 % Normal [facility] Comment on above: Performed By: #### C DEION, BMP, TROPI ####[address] [place] [address] Neutrophil (Seg) 65 % Normal [facility] Comment on above: Performed By: #### C DP, BMP, TROPI ####[address] [place] [address] Platelet mean volume (PMV) 9.6 fL Normal 6.0-12.0 [facility] Comment on above: Performed By: #### C DP, BMP, TROPI ####[address] [place] [address] Platelets 278 10*3/uL Normal 140-450 [facility] Comment on above: Performed By: #### C DP, BMP, TROPI ####[address] [place] [address] WBC (Leukocytes) 10.8 10*3/uL Normal 4.5-13.5 [facility] Comment on above: Performed By: #### C DP, BMP, TROPI ####[address] [place] [address] Auto Diff Performed NOT REPORTED Normal [facility] Comment on above: Performed By: #### C DP, BMP, TROPI ####[address] [place] [address] Erythrocyte morphology NOT REPORTED Normal [facility] Comment on above: Performed By: #### C DP, BMP, TROPI ####[address] [place] [address] Platelets NOT REPORTED Normal [facility] Comment on above: Performed By: #### C DP, BMP, TROPI ####[address] [place] [address] WBC Morphology NOT REPORTED Normal [facility] Comment on above: Performed By: #### C DP, BMP, TROPI ####[address] [place] [address] ED Noteon 02-19-2017 HIM IP Note OR Behavioral Analyst Normal [facility] ED Provider Noteon 7 HIM IP Note OR Behavioral Analyst Normal [facility] Troponinon 02-19-2017 Troponin T.cardiac mass conc ug/L Normal <0.03 [facility] Comment on above: Result Comment: Trop onin T results cannot be compared to Troponin-I results. Performed By: #### C DP, BMP, TROPI ####[address] [place] [address] Troponin I.cardiac mass conc Normal [facility] Comment on above: Result Comment: Refe rence Range: <0.03 Within reference range. 0.03-0.09 Possible myocardial damage.Repeat at appropriate intervals to rule out chronic elevation. >= 0.10 Indicative of myocardial damage.Performed at [address] [place] [address] ([phone] Performed By: #### C DP, BMP, TROPI ####[address] [place] [address] Vital Signs Date Time Vital Sign Value Performing Clinician Facility 06-21-2024 13:31-0500 Body mass index (BMI) [Ratio] 35.61 kg/m2 Little LOWRY Work Phone: [facility] 06-21-2024 13:31-0500 Body weight 97.07 kg Little LOWRY Work Phone: [facility] 06-21-2024 13:31-0500 Diastolic blood pressure 72 mm[Hg] Little Christie PA Work Phone: [facility] 06-21-2024 13:31-0500 Systolic blood pressure 116 mm[Hg] Little Christie PA Work Phone: [facility] 06-07-2024 13:49-0500 Body mass index (BMI) [Ratio] 34.61 kg/m2 Berto Luis DO Work Phone: [facility] 06-07-2024 13:49-0500 Body weight 94.35 kg Berto Luis DO Work Phone: [facility] 06-07-2024 13:49-0500 Diastolic blood pressure 70 mm[Hg] Berto Luis DO Work Phone: [facility] 06-07-2024 13:49-0500 Systolic blood pressure 120 mm[Hg] Berto Luis DO Work Phone: [facility] 05-24-2024 14:26-0500 Body mass index (BMI) [Ratio] 33.75 kg/m2 Little Christie PA Work Phone: [facility] 05-24-2024 14:26-0500 Body weight 91.99 kg Little Christie PA Work Phone: [facility] 05-24-2024 14:26-0500 Diastolic blood pressure 70 mm[Hg] Little Ashton PA Work Phone: [facility] 05-24-2024 14:26-0500 Systolic blood pressure 108 mm[Hg] Little Christie PA Work Phone: [facility] 05-09-2024 11:44-0500 Body mass index (BMI) [Ratio] 33.28 kg/m2 Berto Luis DO Work Phone: [facility] 05-09-2024 11:44-0500 Body weight 90.72 kg Berto Luis DO Work Phone: [facility] 05-09-2024 11:44-0500 Diastolic blood pressure 64 mm[Hg] Berto Luis DO Work Phone: [facility] 05-09-2024 11:44-0500 Systolic blood pressure 118 mm[Hg] Berto Luis DO Work Phone: [facility] 04-11-2024 10:37-0400 Body mass index (BMI) [Ratio] 31.12 kg/m2 Little Christie PA Work Phone: [facility] 04-11-2024 10:37-0400 Body weight 84.82 kg Little Christie PA Work Phone: [facility] 04-11-2024 10:37-0400 Diastolic blood pressure 68 mm[Hg] Little Christie PA Work Phone: [facility] 04-11-2024 10:37-0400 Systolic blood pressure 116 mm[Hg] Little Christie PA Work Phone: [facility] 03-14-2024 11:44-0400 Body mass index (BMI) [Ratio] 28.62 kg/m2 Berto Luis DO Work Phone: [facility] 03-14-2024 11:44-0400 Body weight 78.02 kg Berto Luis DO Work Phone: [facility] 03-14-2024 11:44-0400 Diastolic blood pressure 74 mm[Hg] Berto Luis DO Work Phone: [facility] 03-14-2024 11:44-0400 Systolic blood pressure 118 mm[Hg] Berto Smith DO Work Phone: [facility] 02-27-2023 14:39-0400 Blood Pressure Location Gary DANGELOL [facility] [place] 02-27-2023 14:39-0400 Diastolic blood pressure 66 mm[Hg] Gary DANGELOL [facility] [place] 02-27-2023 14:39-0400 Heart rate 70 /min Gary DANGELOL [facility] [place] 02-27-2023 14:39-0400 Respiratory rate 16 /min Gary DANGELOL [facility] [place] 02-27-2023 14:39-0400 Systolic blood pressure 106 mm[Hg] Gary DANGELOL [facility] [place] 01-08-2022 08:09-0400 Body temperature 98.01 [degF] Wiley Rice DO Work Phone: [facility] 01-08-2022 08:09-0400 Body weight 75.75 kg Wiley Rice DO Work Phone: [facility] 01-08-2022 08:09-0400 Diastolic blood pressure 71 mm[Hg] Wiley Rice DO Work Phone: [facility] 01-08-2022 08:09-0400 Heart rate 98 /min Wiley Rice DO Work Phone: [facility] 01-08-2022 08:09-0400 Systolic blood pressure 112 mm[Hg] Wiley Rice DO Work Phone: [facility] 12-10-2021 14:45-0400 Body height 166.37 cm Bret Long Other [facility] 12-10-2021 14:45-0400 Body mass index (BMI) [Ratio] 26.55 kg/m2 Bret Long Other [facility] 12-10-2021 14:45-0400 Body weight 73.48 kg Bret Long Other [facility] 12-10-2021 14:45-0400 Diastolic blood pressure 72 mm[Hg] Bret Long Other [facility] 12-10-2021 14:45-0400 Systolic blood pressure 103 mm[Hg] Bret Long Other [facility] 11-27-2021 14:01-0400 Body temperature 98.4 [degF] Wiley Rice DO Work Phone: [employer] 11-27-2021 14:01-0400 Body weight 74.84 kg Wiley Rice DO Work Phone: [facility] 11-27-2021 14:01-0400 Diastolic blood pressure 64 mm[Hg] Wiley Rice DO Work Phone: [facility] 11-27-2021 14:01-0400 Heart rate 98 /min Wiley Rice DO Work Phone: [facility] 11-27-2021 14:01-0400 Systolic blood pressure 121 mm[Hg] Wiley Rice DO Work Phone: [facility] 12-05-2020 19:26-0400 Heart rate 106 /min James Breece PA-C Work Phone: [facility] 12-05-2020 19:25-0400 Body temperature 98.29 [degF] James Breece PA-C Work Phone: [facility] 12-05-2020 19:25-0400 Body weight 97.98 kg James Breece PA-C Work Phone: [facility] 12-05-2020 19:25-0400 Diastolic blood pressure 86 mm[Hg] James Breece PA-C Work Phone: [facility] 12-05-2020 19:25-0400 Respiratory rate 16 /min James Breece PA-C Work Phone: [facility] 12-05-2020 19:25-0400 SaO2% (BldA) [Mass fraction] 97 % James Breece PA-C Work Phone: [facility] 12-05-2020 19:25-0400 Systolic blood pressure 126 mm[Hg] James Breece PA-C Work Phone: [facility] Encounters Encounter Date Encounter Type [...] visit 15 minutes Little LOWRY Work Phone: [facility] Comment on above: Third trimester preg lenin; 29 weeks gestation of ; Upper respiratory tract infection, unspecified type Start: 05-24-2024 End: 05-24-2024 ambulatory LITTLE CHRISTIE Not Available Start: 05-24-2024 End: 05-24-2024 Bamboo flowsheet Little LOWRY Work Phone: [facility] Start: 05-24-2024 End: 05-24-2024 Bamboo flowsheet Little LOWRY Work Phone: [facility] Start: 05-09-2024 End: 05-09-2024 Bamboo flowsheet Berto Luis DO Work Phone: [facility] Start: 05-09-2024 End: 05-09-2024 Bamboo flowsheet Berto Luis DO Work Phone: [facility] Start: 05-09-2024 End: 05-09-2024 Office outpatient visit 15 minutes Berto Luis DO Work Phone: [facility] Comment on above: Second trimester pre gnancy; 26 weeks gestation of ; History of miscarriage Start: 05-09-2024 End: 05-09-2024 ambulatory BERTO LUIS Not Available Start: 04-11-2024 End: 04-11-2024 Bamboo flowsheet Little LOWRY Work Phone: [facility] Start: 04-11-2024 End: 04-11-2024 Bamboo flowsheet Little LOWRY Work Phone: [facility] Start: 04-11-2024 End: 04-11-2024 Office outpatient visit 15 minutes Little LOWRY Work Phone: [facility] Comment on above: Second [...] Alexandra/Chris Kang Start: 02-23-2023 ambulatory Alexandr Bourgeois Facility:[facility] Start: 02-05-2023 ambulatory Gary MORRIS Facility:[facility] [...] . Facility:[facility] Start: 02-18-2022 ambulatory WILEY HARPERE M~[id number] [facility] Start: 02-12-2022 ambulatory WILEYNigel HARPERE M~[id number] [facility] Start: 02-12-2022 End: 02-12-2022 Telemedicine consultation with patient Wiley Huffman Rice DO Work Phone: [facility] Comment on above: Anxiety (Primary Dx) Start: 01-19-2022 Refill Luis Dipalma D O Work Phone: [facility] Start: 01-19-2022 Refill Luis Dipalma D O Work Phone: [facility] Start: 01-08-2022 End: 01-08-2022 ambulatory WILEYNigel HARPERE M~[id number] [facility] Start: 01-08-2022 End: 01-08-2022 Office outpatient visit 25 minutes Wiley Nathanael Rice DO Work Phone: [facility] Comment on above: Anxiety (Primary Dx) ; Hypotension, unspecified hypotension type Start: 01-08-2022 End: 01-08-2022 Patient encounter procedure Wiley M Rice DO Work Phone: [facility] Start: 12-11-2021 End: 12-11-2021 ambulatory WILEYNigel HARPERE M~[id number] [facility] Start: 12-10-2021 End: 12-10-2021 ambulatory Bret Long Other [facility] Start: 12-10-2021 Office outpatient ne w 45 minutes Bret Long [facility] Start: 11-27-2021 End: 11-27-2021 ambulatory WILEY Huffman~[id number] RICE RICE [facility] Start: 11-27-2021 End: 11-27-2021 Office outpatient new 30 minutes Wiley Osorio DO Work Phone: [facility] Comment on above: Anxiety (Primary Dx) Start: 11-27-2021 End: 11-27-2021 Patient encounter procedure Wiley Osorio DO Work Phone: [facility] Start: 11-25-2021 Telephone encounter Dana Kinsey [facility] Start: 12-05-2020 End: 12-05-2020 ambulatory PHYSICIAN NO [facility] Start: 12-05-2020 End: 12-05-2020 Office outpatient new 20 minutes James DENNYC Work Phone: [facility] Comment on above: Vaginal sore (Primar y Dx) Start: 02-19-2017 End: 02-19-2017 Emergency department patient visit KIM Alfonso [facility] Procedures Date Procedure Procedure Detail [...] AM EST Routine [facility] [address] [place] [id number] Little Christie, PA [address] [place] [address] [facility] Start: 06-21-2024 End: 06-21-2024 Patient encounter procedure 06/21/2024 1:20 PM EST Routine [facility] [address] [place] [id number] Little Christie PA [address] [place] [address] [facility] Start: 06-07-2024 End: 06-07-2024 Patient encounter procedure 06/07/2024 1:30 PM EST Routine [facility] [address] [place] [address] Berto Smith DO [address] [place] [address] [facility] Start: 05-24-2024 End: 05-24-2024 Patient encounter procedure 05/24/2024 2:10 PM EST Routine [facility] [address] [place] [phone] Little Christie, PA [address] [place], [place] [id number] Arrived [facility] Comment on above: Arrived Start: 05-23-2024 End: 05-23-2024 Patient encounter procedure 05/23/2024 1:50 PM EST Routine [facility] [address] [place] [address] Little Christie, PA [address] [place], [place] [id number] [facility] Start: 05-09-2024 End: 05-09-2025 [...] mellitus screening Expected: 04/11/2024 (Approximate), Expires: 04/11/2025 [facility] Comment on above: Expected: 04/11/2024 (Approximate), Expires: 04/11/2025 Start: 04-11-2024 End: 04-11-2024 Patient encounter procedure [facility] Comment on above: Arrived Start: 03-14-2024 End: 03-14-2024 Patient encounter procedure 03/14/2024 11:20 AM EDT Routine [facility] [address] [place] [address] Berto Smith, DO [address] [place] [address] Arrived [facility] Comment on above: Arrived Start: 03-06-2024 Influenza vaccination Influenza Vacc ine (#1) [facility] Start: 11-27-2022 Adolescent depressio n screening assessment Depression Screening [facility] Start: 03-06-2022 Influenza vaccination T [facility] Start: 02-07-2022 End: 02-07-2022 Patient encounter procedure 02/07/2022 Office Visit [facility] Wiley Osorio DO [address] [place] [phone] [facility] Start: 12-19-2021 End: 12-19-2021 Patient encounter procedure 12/19/2021 Office Visit [facility] Wiley Osorio DO [address] [place] [phone] [facility] Start: 12-07-2021 COVID-19 Vaccine (3 - Booster for Moderna series) COVID-19 Vaccine (3 - Booster for Moderna series) [facility] Start: 11-27-2021 End: 05-25-2022 Patient encounter procedure 11/27/2021 Office Visit Family Medicine Wiley Osorio, DO [address] [place] [address] [facility] Start: 11-24-2021 Adolescent depressio n screening assessment Depression Screening [facility] Start: 11-24-2021 Hepatitis C screening Hepatitis C Sc reening [facility] Start: 11-24-2021 HIV screening HIV Screening [facility] Start: 11-24-2021 Social Influencers o f Health Screening Social Influencers of Health Screening [facility] Start: 03-06-2021 Influenza vaccination Sequenti al Influenza Vaccine (Season Ended) [facility] Start: 2017 Screening for malign ant neoplasm of cervix Cervical Cancer Screening: Pap Smear [facility] Start: 2015 DTaP,Tdap,and Td Vac cines (1 - Tdap) DTaP,Tdap,and Td Vaccines (1 - Tdap) [facility] Start: 2014 Hepatitis C screening Hepatitis C Sc reening [facility] Start: 2011 HIV screening HIV Screening [facility] Start: 2008 COVID-19 Vaccine (1) COVID-19 Vaccin e (1) [facility] Start: 2008 Depression screening using PHQ-9 (Patient Health Questionnaire 9) score Depression Screening (PHQ9) [facility] Start: 2007 HPV Vaccines (1 - 2- dose series) HPV Vaccines (1 - 2-dose series) [facility] Start: 2007 Vaccination for april n papillomavirus HPV Vaccines (1 - 2-dose series) [facility] Start: 2001 COVID-19 Vaccine (1) COVID-19 Vaccin e (1) [facility] Start: 1999 History and physical examination, annual for health maintenance Wellness Visit [facility] Start: 1996 Screening for Chlamy marilee trachomatis Chlamydia Screening [facility] Start: 1996 Screening for malign ant neoplasm of cervix Pap Smear [facility] Start: 1996 Tetanus vaccination Tetanus: Every 1 0yrs [facility] Chlamydia trachomati s rRNA assay Chlamydia/GC/Trichomon as Amplified RNA Microbiology Routine Vaginal sore Ordered: 12/05/2020 [facility] Comment on above: Ordered: 12/05/2020 HSV by PCR Superfici al Site HSV by PCR Superficial Site Lab Routine Vaginal sore Ordered: 12/05/2020 [facility] Comment on above: Ordered: 12/05/2020 Neisseria gonorrhoea e nucleic acid detection Chlamydia/Gonorrhoeae Amplified RNA Microbiology Routine Vaginal sore Ordered: 12/05/2020 [facility] Comment on above: Ordered: 12/05/2020 Trichomonas vaginali s Amplified RNA Trichomonas vaginalis Amplified RNA Microbiology Routine Vaginal sore Ordered: 12/05/2020 [facility] Comment on above: Ordered: 12/05/2020 Immunizations Immunization Date Immunization [facility] SARS-CoV-2 (COVID-19 ) mRNA-1273 vaccine Gary ALEXANDRA [facility] [place] 06-08-2021 SARS-CoV-2 (COVID-19 ) mRNA-1273 vaccine Gary MORRIS [facility] 04-10-2011 influenza virus vaccine, unspecified formulation Berto Luispriscilla RUBY Work Phone: [facility] Healthcare Payers Date Payer Category Payer Private Health Insurance [facility]ICA[facility] [id number] 2021 Medicaid [id number] 2020 Medicaid [id number]. [id number] 2016 Unknown [id number] 2013 Unknown [id number] 1996 Unknown [id number] 2.16.840.1.115350.3.579.2. 903 1996 Unknown [id number] 2.16.840.1.686849.3.579.2. 1143 1996 Unknown [id number] 2.16.840.1.979902.3.579.2. 1143 1996 Unknown [id number] 2.16.840.1.661297.3.579.2. 1143 1996 Unknown [id number] 2.16.840.1.528603.3.579.2. 1143 1996 Unknown [id number] 2.16.840.1.040939.3.579.2. 1143 1996 Unknown [id number] 2.16.840.1.914654.3.579.2. 593 1996 Unknown [id number] 2.16.840.1.875887.3.579.2. 593 1996 Unknown [id number] 2.16.840.1.461387.3.579.2. 593 1996 Unknown [id number] 2.16.840.1.113262.3.579.2. 593 1996 Unknown [id number] 2.16.840.1.891334.3.579.2. 593 1996 Unknown [id number] 2.16.840.1.188738.3.579.2. 593 1996 Unknown [id number] 2.16.840.1.313888.3.579.2. 593 1996 Unknown [id number] 2.16.840.1.566543.3.579.2. 727 1996 Unknown [id number] 2.16.840.1.986471.3.579.2. 1286 1996 Unknown [id number] 2.16.840.1.388004.3.579.2. 1286 1996 Unknown [id number] 2.16.840.1.593475.3.579.2. 9 1996 Unknown [id number] 2.16.840.1.482041.3.579.2. 9 1996 Unknown [id number] 2.16.840.1.395584.3.579.2. 1258 1996 Unknown [id number] 2.16.840.1.450690.3.579.2. 9 1996 Unknown [id number] 2.16.840.1.398806.3.579.2. 1258 1996 Unknown [id number] 2.16.840.1.322099.3.579.2. 9 1996 Unknown [id number] 2.16.840.1.217659.3.579.2. 1258 1996 Unknown [id number] 2.16.840.1.307379.3.579.2. 9 1996 Unknown [id number] 2.16.840.1.547363.3.579.2. 1258 1996 Unknown [id number] 2.16.840.1.607333.3.579.2. 1259 1960 Unknown [id number] 2.16.840.1.933100.3.579.2. 727 1959 Medicaid [id number] 1959 Self-pay 1959 Unknown [id number] 1959 Unknown [id number] 1959 Unknown [id number] Unknown [id number] 2.16.840.1.301660.3.579.2. 531 Social History Date Type Detail Facility Start: 12-05-2020 End: 02-27-2023 Tobacco smoking status NDIS Never smoker [facility] Start: 12-05-2020 End: 11-27-2021 Tobacco use and exposure Never used [facility] Start: 12-05-2020 Alcohol intake Current drinke r of alcohol (finding) [facility] Start: 12-05-2020 End: 11-27-2021 History SDOH Alcohol Frequency 1 [facility] Start: 12-05-2020 Alcohol Comment occ [facility] Start: 1996 Sex Assigned At Not on file [facility] Start: 11-17-2021 End: 02-12-2022 Exposure to SARS-CoV-2 (event) Not sure [facility] Tobacco smoking stat [facility] Tobacco smoking consumption unknown [facility] Start: 11-27-2021 End: 05-24-2024 Alcohol intake Lifetime non-drinker (finding) [facility] Start: 1996 Sex Assigned At Female T [facility] Start: 12-17-2023 Sex Assigned At F [facility] Tobacco smoking status Never [facility] [place] Start: 03-28-2023 Tobacco smoking stat [facility] Ex-smoker [facility] History of tobacco use Current smoker [facility] History of tobacco use Cigarette Smoker [facility] Start: 12-17-2023 History of Social function [facility] Start: 11-17-2023 [facility] Start: 01-19-2023 Gender identity Identifies as female gender (finding) [facility] Healthcare Functional Status Date Assessment Result Facility 02-27-2023 Functional Status N/A [facility] Clinical Notes 12-05-2020 to 06-21-2024 ESSENCE [...] nursing note reviewed. Exam conducted with a automotive refinisher present. Vitals: Estimated body mass index is [...] Little Christie PA-C documented in this encounter [facility] 06-07-2024 History of Present illness Narrative [...] nursing note reviewed. Exam conducted with a automotive refinisher present. Vitals: Estimated body mass index is [...] Berto Smith DO documented in this encounter [facility] 05-24-2024 History of Present illness Narrative [...] ADD (attention deficit disorder) Anxiety and depression ([facility]) ASCUS of cervix with negative high risk HPV BMI 27.0-27.9,adult Cystic fibrosis carrier Dysmenorrhea Encounter for gynecological examination (general) (routine) without abnormal findings Herpes simplex type 1 infection Intrauterine device surveillance Irritable bowel syndrome LGSIL on Pap smear of cervix Menorrhagia HISTORY PAST MEDICAL HISTORY SOCIAL HISTORY Past Medical History: Diagnosis Date Acne ADD (attention deficit disorder) Anxiety and depression ([facility]) ASCUS of cervix with negative high risk [...] of: ESSENCE Haley documented in this encounter [facility] 05-09-2024 History of Present illness Narrative [...] nursing note reviewed. Exam conducted with a automotive refinisher present. Vitals: Estimated body mass index is [...] Berto Smith DO documented in this encounter [facility] 04-11-2024 History of Present illness Narrative [...] of: ESSENCE Haley documented in this encounter [facility] 03-14-2024 History of Present illness Narrative [...] nursing note reviewed. Exam conducted with a automotive refinisher present. Vitals: Estimated body mass index is [...] Berto Smith DO documented in this encounter [facility] 02-27-2023 Note Chief Complaint consultation for [...] excisional biopsy under local anesthesia at [facility]; call with problems/questions. Follow-up No qualifying data [...] (COVID-19) mRNA-1273 vaccine 06/08/2021 Recorded [facility] Comment on above: Result Comment: Elec [...] at later date. documented in this encounter [facility] 01-08-2022 History of Present illness Narrative bp's [...] due to buspirone. documented in this encounter [facility] 12-10-2021 Evaluation note Encounter Date Diagnosis Assessment Notes Dec, Irritable bowel syndrome with diarrhea (ICD-10 - K58.0) Continue medications without change Dec, Epigastric pain (ICD-10 - R10.13) Dec, Chronic nausea (ICD-10 - R11.0) Dec, Family history of carcinoma in situ of anal canal (ICD-10 - Z84.89) Dec, Other Continue Zofran prn Pt to call if symptoms worsen [facility] 05-25-2022 History of Present illness Narrative* Wiley Osorio DO - 11/27/2021 2:00 PM EDT Subjective Patient ID: Leslie Ford is a 26 y.o. female. Chief Complaint Patient presents with Establish Care 26 y.o. female presents to [facility] care. History of anxiety and depression. Has [...] it ( July 2017) documented [id number] History of Present illness Narrative* Dana Rosario [...] like me to do? documented in this encounter[id number] History of Present illness Narrative* James Churchill PA-C - 12/05/2020 8:22 PM EDT Images from the original note were not included. Patient Name: [facility] Location: [place] [id number] Date Of : Date Of Visit: 1995 12/05/2020 MRN# Provider: [id number] James Churchill PA-C Chief Complaint Patient presents [...] urine from irritatingthe sores. ? Take an ngsy-mrw-woainop pain medicine, such as acetaminophen (Tylenol), ibuprofen [...] Log into your personal health record on [email or web address] and enter E579 in the Education box to learn more about Genital Herpes: Care Instructions. Current as of: August 31, 2019 Content Version: 12.8 [employer]. Care instructions adapted under license by your healthcare professional. If you have questions about a medical condition or this instruction, always ask your healthcare professional. [employer] disclaims any warranty or liability for your use of this information. documented in this [id number] Instructions* Patient Instructions* James Churchill PA-C - [...] urine from irritatingthe sores. ? Take an vkke-tgv-hrvazib pain medicine, such as acetaminophen (Tylenol), ibuprofen [...] Log into your personal health record on [email or web address] and enter E579 in the Education box to learn more about Genital Herpes: Care Instructions. Current as of: August 31, 2019 Content Version: 12.8 [employer]. Care instructions adapted under license by your healthcare professional. If you have questions about a medical condition or this instruction, always ask your healthcare professional. [employer] disclaims any warranty or liability for your use of this information. [facility] No data available for this section General Surgery [place] Evaluation note* Diagnosis Vaginal sore- Primary documented in this encounter [facility] note* Diagnosis Anxiety- Primary Anxiety state, unspecified [facility] Diagnosis Anxiety- Primary Anxiety state, unspecified Hypotension, unspecified hypotension type documented in this encounter [facility] note* Diagnosis Anxiety- Primary Anxiety state, unspecified [facility]* Diagnosis Second trimester state, incidental 22 weeks gestation of Diabetes mellitus screening Screening for diabetes mellitus [facility] Diagnosis Second trimester state, incidental 26 weeks gestation of History of miscarriage Personal history of other genital system and obstetric disorders documented in this encounter [facility]* Diagnosis 31 weeks gestation of Third trimester state, incidental Gastroesophageal reflux in documented in this encounter [facility] note* Diagnosis Third trimester state, incidental 33 weeks gestation of documented in this encounter [facility] note* Diagnosis Second trimester state, incidental [facility]* Diagnosis Third trimester state, incidental 29 weeks gestation of Upper respiratory tract infection, unspecified type [facility] Narrative - Reported* Type Description Date Medical History IBS [facility] Other Hospital Discharge instructions No data available for this section General Surgery [place] Progress note No data available for this section General Surgery [place] Summary Purpose Family History No Family History Records FoundNo Family History Records FoundNo Family History Records FoundNo Family History Records FoundNo Family History Records FoundNo Family History Records FoundNo Family History Records FoundNo Family History Records FoundNo Family History Records Found Advance Directives No Advanced Directives Records FoundDocuments on File Type Date Recorded 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 Advance Directives and Living Will Documents on File Type Date Recorded 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 Power of Remote Computer Terminal Operator Additional Source Comments INFORMATION SOURCE (unrecogn ized section and content) DATE CREATED AUTHOR 12/30/2017 [facility] DATE CREATED AUTHOR AUTHOR'S ORGANIZ ATION 12/06/2020 [facility] DATE CREATED AUTHOR AUTHOR'S ORGANIZ ATION 02/16/2022 [facility] DATE CREATED AUTHOR AUTHOR'S ORGANIZ ATION 02/27/2022 [facility] DATE CREATED AUTHOR AUTHOR'S ORGANIZ ATION 11/14/2022 [facility] DATE CREATED AUTHOR AUTHOR'S ORGANIZ ATION 03/02/2023 [facility] DATE CREATED AUTHOR AUTHOR'S ORGANIZ ATION 07/05/2023 [facility] DATE CREATED AUTHOR AUTHOR'S ORGANIZ ATION 03/25/2024 [facility] DATE CREATED AUTHOR AUTHOR'S ORGANIZ ATION 06/24/2024 [facility] dical Specialists EPIC Reason for Visit [...] Care Teams (unrecognized sec tion and content) Professor Of Environmental Engineering Relationship Specialty Start Date End Date Wiley OsorioDO [address] [place] [phone] PCP - General Family Medicine 11/27/21 Professor Of Environmental Engineering Relationship Specialty Start Date End Date Wiley Osorio DO [address] [place] [phone] PCP - General Family Medicine 11/27/21 Professor Of Environmental Engineering Relationship Specialty Start Date End Date DevonLalitoWiley DO Nathanael [address] [facility] [address] [address] [place] [phone] PCP - General Family Medicine 11/27/21 Professor Of Environmental Engineering Relationship Specialty Start Date End Date Homar Beltran MD [address] [place] [address] PCP - General Family Medicine 01/20/23 Professor Of Environmental Engineering Relationship Specialty Start Date End Date Homar Beltran MD [address] [place] [phone] PCP - General Family Medicine 01/20/23 Professor Of Environmental Engineering Relationship Specialty Start Date End Date Homar Beltran MD [address] [place] [facility] [place] [address] PCP - General Family Medicine 01/20/23 Professor Of Environmental Engineering Relationship Specialty Start Date End Date Homar Beltran MD [address] [facility] [place] [address] PCP - General Family Medicine 01/20/23 Professor Of Environmental Engineering Relationship Specialty Start Date End Date Homar Beltran MD [address] [place] [facility] [place] [address] PCP - General Family Medicine 01/20/23 Professor Of Environmental Engineering Relationship Specialty Start Date End Date Homar Beltran MD [address] [facility] [place] [address] PCP - General Family Medicine 01/20/23 Professor Of Environmental Engineering Relationship Specialty Start Date End Date Homar Beltran MD [address] [place] [facility] [place] [address] PCP - General Family Medicine 01/20/23 Professor Of Environmental Engineering Relationship Specialty Start Date End Date Homar Beltran MD [address] [facility] [place] [address] PCP - General Family Medicine 01/20/23 Professor Of Environmental Engineering Relationship Specialty Start Date End Date Homar Beltran MD [address] [facility] [place] [address] PCP - General Family Medicine 01/20/23 Professor Of Environmental Engineering Relationship Specialty Start Date End Date Homar Beltran MD [address] [place] [phone] PCP - General Family Medicine 01/20/23 FOR [...] BE BASED ON THE PRIMARY CLINICAL RECORDS. [facility] Risk I/O [facility]. provides no warranty or guarantee of the accuracy or completeness of information in this document.
--- NOTE | 2024-06-30 08:15 | US_ITS ---
[address] [address] Patient Name: KISHAN RAMSEY MRN: [id number] date: 1995 Sex: F Assigned Patient Location: [facility] Current Patient Location: Accession/Order Number: [id number] Exam Date: 06/30/2024 08:18 Report Date: 06/30/2024 23:18 At the request of: KATELYN DUVALL Procedure: US OB BPP w non-stress EXAMINATION: US OB BPP w non-stress HISTORY:History of miscarriage Z87.59 COMPARISON: Ultrasound OB biophysical 06/24/2024 TECHNIQUE: Ultrasound biophysical profile was performed in the radiology department. BREATHING MOVEMENTS: 2 GROSS BODY MOVEMENTS: 2 TONE: 2 QUALITATIVE AMNIOTIC FLUID VOLUME: 2 PRESENTATION: CEPHALIC HEART RATE: 133.66 bpm AMNIOTIC FLUID VOLUME: 15.29 cm GESTATIONAL AGE: 34 weeks 2 days US/US OB BPP w non-stress IMPRESSION: Total biophysical profile score: 8 Electronically authenticated by: SHAINA SHOEMAKER Date: 06/30/2024 23:18
[2024-06-30 08:35] VITALS: BP 119/74; PULSE 114
== END 2024-06-30 09:59 | disposition home or self-care (01) ==
LOC: FBCO 02:56 → FBC 08:08
PROVIDERS: PCP Family Medicine; Visit Provider Obstetrics & Gynecology
DX: O26.893 Other specified pregnancy related conditions, third trimester (principal); Z87.59 Personal history of other complications of pregnancy, childbirth and the puerperium; Z3A.34 34 weeks gestation of pregnancy
CPT/HCPCS: 76818

== ENCOUNTER 2024-07-04 00:06 | Outpatient (OUT) | payer OTHER, SELFPAY ==
--- OUTSIDE RECORDS SUMMARY | 2024-07-04 00:13 | XMS_ITS | CCD ---
Author Organization [facility] Care Team Providers Care [employer] Operator Name Role Phone KIM SUTHERLAND Unavailable Unavailable WILLY CONKLIN Unavailable Unavailable HOMAR BELTRAN Unavailable Unavailable HOMAR BELTRAN Unavailable Unavailable No, Physician Primary Care Provider Unavailsuman e FINN, PHYSICIAN Primary Care Unavailable JAMES ALCAZAR Attending Unavailable Unavailable Primary Care Provider Unavailsuman e Wiley Osorio DO Primary Care Provider [phone] Bret Long Unavailable RICE RICE, WILEY WILEY M~[id number] Attending Unavailable RICE RICE, WILEY WILEY M~[id number] Primary Ca re Unavailable RICE RICE, WILEY WILEY M~[id number] Attending Unavailable RICE RICE, WILEY WILEY M~[id number] Primary Ca re Unavailable RICE RICE, WILEY WILEY M~[id number] Attending Unavailable RICE RICE, WILEY WILEY M~[id number] Primary Ca re Unavailable RICE RICE, WILEY WILEY M~[id number] Attending Unavailable RICE RICE, WILEY WILEY M~[id number] Primary Ca re Unavailable RICE RICE, WILEY WILEY M~[id number] Referring Unavailable RICE RICE, WILEY WILEY M~[id number] Primary Ca re Unavailable ITA REYES Admitting [...] Care Unavailable CLAUDE KHAN Primary Care Physician [phone] Gary MORRIS Attending Unavailable Alexandr Bourgeois Attending Unavailab Alexandr Ventura Admitting Unavailab Homar Mcgowan Primary Care Unavailable KELIN SMITHY Dante Referring Unavailable HOMAR BELTRAN Primary Care Unavailable SENAIT MARTIN Attending Unavailable LUIS, BERTO Dante Referring Unavailable HOMAR BELTRAN Primary Care Unavailable Homar Beltran MD Primary Care Provider [phone] SHAHNAZ, LITTLE Attending Unavailable LUIS, BERTO [...] Medication Allergies] Propensity to adverse reactions (disorder) [facility] Repository Medications Current Medications Medication Drug [...] [facility] pH, UA 7 5 - 9 [facility] Protein, UA Positive Negative - 2000(20) ++++ mg/dL [facility] Comment on above: 30 Spec Grav, UA 1.02 1 - 1.03 [facility] Urobilinogen, UA 0.2 0.2 - 12 mg/dL [facility] Urinalysis macro (dipstick) panel (U)on 06-07-2024 Bilirubin, UA Negative Negative - 4(70) +++ mg/dL [facility] Blood, UA Negative Negative - 50 Angel Luis/mcL [facility] Clarity, UA Clear [facility] Color, UA Yellow [facility] Glucose, UA Negative Negative - 2000(110) ++++ mg/dL [facility] Interpretation and review of laboratory results Normal [facility] Ketones, UA Negative Negative - 160(16) ++++ mg/dL [facility] Leukocytes, UA Negative Negative - 500+++ Drew/mcL [facility] Nitrite, UA Negative Negative - Positive [facility] pH, UA 7 5 - 9 [facility] Protein, UA Negative Negative - 1999(20) ++++ mg/dL [facility] Spec Grav, UA 1.02 1 - 1.03 [facility] Urobilinogen, UA 0.2 0.2 - 12 mg/dL [facility] Urinalysis macro (dipstick) panel (U)on 05-09-2024 Bilirubin, [...] Urobilinogen, UA 0.2 0.2 - 12 mg/dL [facility] Urinalysis macro (dipstick) panel (U)on 04-11-2024 Bilirubin, [...] Urobilinogen, UA 0.2 0.2 - 12 mg/dL [facility] Urinalysis macro (dipstick) panel (U)on 03-14-2024 Bilirubin, [...] [facility] pH, UA 7.0 5 - 9 [facility] Protein, UA Negative Negative - 1999(20) ++++ mg/dL [facility] Spec Grav, UA 1.020 1 - 1.03 [facility] Urobilinogen, UA 0.2 0.2 - 12 mg/dL [facility] Facesheeton 03-02-2023 Facesheet [id number] CD:127 Normal [facility] Ambulatory Visit Summaryon 0 02-27-2023 Ambulatory [...] History of pre-eclampsia Insomnia Migraines Overweight Normal [facility] RAD - Ultrasound Reporton RAD - Ultrasound Report [id number] D:127 Normal [facility] Physician Referralon 023 Physician Referral [id number] D:127 Normal [facility] INSULINon 11-08-2022 Insulin 7.7 uIU/mL Normal 2.6-24.9 [facility] Comment on above: Performed By: #### V AMAURY, IRON #### [facility] [address] [place] [address] Dr. Chucho Jesus CBC AUTO DIFFon 11-07-2022 BASO # 0.0 103/ul Normal 0.0-0.1 [facility] Comment on above: Performed By: #### V AMAURY, IRON #### [facility] [address] [place] [address] Dr. Chucho Jesus Basophils/100 WBC (Bld) 0.6 % Normal 0.2-2.0 [facility] Comment on above: Performed By: #### V AMUARY, IRON #### [facility] [address] [place] [address] Dr. Chucho Jesus EO # 0.1 103/ul Normal 0.0-0.7 [facility] Comment on above: Performed By: #### V AMAURY, IRON #### [facility] [address] [place] [address] Dr. Chucho Jesus Eosinophils/100 WBC (Bld) 1.4 % Normal 0.9-7.0 [facility] Comment on above: Performed By: #### V AMAURY, IRON #### [facility] [address] [place] [address] Dr. Chucho Jesus Erythrocyte distribution width (RBC) [Ratio] 13.9 % Normal 11.0-15.0 [facility] Comment on above: Performed By: #### V ITAD, IRON #### [facility] [address] [place] [address] Dr. Chucho Jesus Hematocrit (Bld) [Volume fraction] 45.6 % Normal 36.0-48.0 [facility] Comment on above: Performed By: #### V ITAD, IRON #### [facility] [address] [place] [address] Dr. Chucho Jesus Hemoglobin (Bld) [Mass/Vol] 15.1 g/dL Normal 12.0-16.0 [facility] Comment on above: Performed By: #### V ITAD, IRON #### [facility] [address] [place] [address] Dr. Chucho Jesus IG # 0.01 10e3/ul Normal 0.00-0.03 [facility] Comment on above: Performed By: #### V ITAD, IRON #### [facility] [address] [place] [address] Dr. Chucho Jesus IG % 0.1 % Normal 0.0-0.5 [facility] Comment on above: Performed By: #### V ITAD, IRON #### [facility] [address] [place] [address] Dr. Chucho Jesus LYMPH # 1.9 103/ul Normal 1.2-3.8 [facility] Comment on above: Performed By: #### V ITAD, IRON #### [facility] [address] [place] [address] Dr. Chucho Jesus Lymphocytes/100 WBC (Bld) 26.3 % Normal 20.5-60.0 [facility] Comment on above: Performed By: #### V ITAD, IRON #### [facility] [address] [place] [address] Dr. Chucho Jesus MANUAL DIFF REQ NO Normal [facility] Comment on above: Performed By: #### V ITAD, IRON #### [facility] [address] [address] [address] Chucho Jesus MCH (RBC) [Entitic mass] 27.9 pg Normal 26.7-34.0 [facility] Comment on above: Performed By: #### V ITAD, IRON #### [facility] [address] [place] [address] Dr. Chucho Jesus MCHC (RBC) [Mass/Vol] 33.1 g/dL Normal 29.9-35.2 [facility] Comment on above: Performed By: #### V ITAD, IRON #### [facility] [address] [place] [address] Dr. Chucho Jesus MCV (RBC) [Entitic vol] 84.1 fL Normal 81.0-99.0 [facility] Comment on above: Performed By: #### V ITAD, IRON #### [facility] [address] [place] [address] Dr. Chucho Jesus MONO # 0.5 103/ul Normal 0.3-0.8 [facility] Comment on above: Performed By: #### V ITAD, IRON #### [facility] [address] [place] [address] Dr. Chucho Jesus Monocytes/100 WBC (Bld) 7.3 % Normal 1.7-12.0 [facility] Comment on above: Performed By: #### V ITAD, IRON #### [facility] [address] [place] [address] Dr. Chucho Jesus NEUT # 4.6 103/ul Normal 1.4-6.5 [facility] Comment on above: Performed By: #### V ITAD, IRON #### [facility] [address] [place] [address] Dr. Chucho Jesus Neutrophils/100 WBC (Bld) 64.3 % Normal 43.0-75.0 [facility] Comment on above: Performed By: #### V ITAD, IRON #### [facility] [address] [place] [address] Dr. Chucho Jesus Platelet mean volume (Bld) [Entitic vol] 10.9 fL Normal 9.5-13.5 [facility] Comment on above: Performed By: #### V ITAD, IRON #### [facility] [address] [address] [address] Chucho Jesus PLT 226 103/ul Normal 150-450 [facility] Comment on above: Performed By: #### V ITAD, IRON #### [facility] [address] [address] [address] Chucho Jesus RBC 5.42 106/ul Critically high 4.20-5.40 [facility] Comment on above: Performed By: #### V ITAD, IRON #### [facility] [address] [place] [address] Dr. Chucho Jesus WBC 7.2 103/ul Normal 4.0-11.0 [facility] Comment on above: Performed By: #### V ITAD, IRON #### [facility] [address] [place] [address] Dr. Chucho Jesus FREE THYROXINE INDEX T7on FTI 3.29 Normal 1.30-4.50 [facility] Comment on above: Performed By: #### V ITAD, IRON #### [facility] [address] [place] [address] Dr. Chucho Jesus T3U 35.0 % Normal 30.0-39.0 [facility] Comment on above: Performed By: #### V ITAD, IRON #### [facility] [address] [place] [address] Dr. Chucho Jesus T4 [Mass/Vol] 9.40 ug/dL Normal 4.80-13.90 [facility] Comment on above: Performed By: #### V ITAD, IRON #### [facility] [address] [place] [address] Dr. Chucho Jesus GLYCOHEMOGLOBIN A1Con 2022 ADA RECOMMENDATION SEE BELOW Normal [facility] Comment on above: Result Comment: ADA RECOMMENDED LIMIT 4.0 - 6.0 ADA THERAPEUTIC TARGET < 7.0 ACTION SUGGESTED > 7.0 Performed By: #### A 1C #### [facility] [address] [address] [address] Chucho Jesus Glucose [Mass/Vol] 94 mg/dL Normal [facility] Comment on above: Performed By: #### A 1C #### [facility] [address] [address] [address] Chucho Jesus HbA1c (Bld) [Mass fraction] 4.9 % Normal 4.5-6.2 [facility] Comment on above: Performed By: #### A 1C #### [facility] [address] [address] [address] Chucho Jesus IRONon 11-07-2022 Iron [Mass/Vol] 81.0 ug/dL Normal 50.0-170.0 [facility] Comment on above: Performed By: #### V ITAD, IRON #### [facility] [address] [place] [address] Dr. Chucho Jesus LIPID PROFILEon 11-07-2022 CHOL-HDL RATIO NORM SEE BELOW Normal [facility] Comment on above: Result Comment: 3.3 - 4.4 LOW RISK 4.4 - 7.1 AVERAGE RISK 7.1 - 11.0 MODERATE RISK >11.0 HIGH RISK Performed By: #### V ITAD, IRON #### [facility] [address] [address] [address] Chucho Jesus Cholesterol [Mass/Vol] 126 mg/dL Normal <=200 [facility] Comment on above: Performed By: #### V ITAD, IRON #### [facility] [address] [address] [address] Chucho Jesus Cholesterol in HDL [Mass/Vol] 38 mg/dL Critically low 40-60 [facility] Comment on above: Performed By: #### V ITAD, IRON #### [facility] [address] [address] [address] Chucho Jesus Cholesterol in LDL [Mass/Vol] 79.4 mg/dL Normal [facility] Comment on above: Performed By: #### V ITAD, IRON #### [facility] [address] [address] [address] Chucho Jesus Cholesterol.total/C holesterol in HDL [Mass ratio] 3.3 {ratio} Normal [facility] Comment on above: Performed By: #### V ITAD, IRON #### [facility] [address] [address] [address] Chucho Jesus HDL NORMAL > or = 60 mg/dl - LO W CARDIOVASCULAR RISK <40 mg/dl - HIGH CARDIOVASCULAR RISK Normal [facility] Comment on above: Performed By: #### V ITAD, IRON #### [facility] [address] [address] [address] Chucho Jesus LDL CALC NORMAL SEE BELOW Normal [facility] Comment on above: Result Comment: <100 mg/dl OPTIMAL 100 - 129 mg/dl NEAR OR ABOVE OPTIMAL 130 - 159 mg/dl BORDERLINE HIGH 160 - 189 mg/dl HIGH >190 mg/dl VERY HIGH Performed By: #### V ITAD, IRON #### [facility] [address] [address] [address] Chucho Jesus Triglyceride [Mass/Vol] 43 mg/dL Normal <=150 [facility] Comment on above: Performed By: #### V ITAD, IRON #### [facility] [address] [address] [address] Chucho Jesus VLDL CALC 8.6 mg/dL Normal [facility] Comment on above: Performed By: #### V ITAD, IRON #### [facility] [address] [address] [address] Chucho Jesus PROF 14(COMP METB)on 023 Albumin [Mass/Vol] 4.2 g/dL Normal 3.4-5.0 [facility] Comment on above: Performed By: #### V ITAD, IRON #### [facility] [address] [address] [address] Chucho Jesus Albumin/Globulin [Mass ratio] 1.1 {ratio} Normal [facility] Comment on above: Performed By: #### V ITAD, IRON #### [facility] [address] [address] [address] Chucho Jesus ALP [Catalytic activity/Vol] 93 U/L Normal 46-116 [facility] Comment on above: Performed By: #### V ITAD, IRON #### [facility] [address] [address] [address] Chucho Jesus ALT [Catalytic activity/Vol] 16 U/L Normal 14-59 [facility] Comment on above: Performed By: #### V ITAD, IRON #### [facility] [address] [address] [address] Chucho Jesus Anion gap [Moles/Vol] 14.3 mmol/L Normal [facility] Comment on above: Performed By: #### V ITAD, IRON #### [facility] [address] [address] [address] Chucho Jesus AST [Catalytic activity/Vol] 16 U/L Normal 15-37 [facility] Comment on above: Performed By: #### V ITAD, IRON #### [facility] [address] [address] [address] Chucho Jesus Bilirubin [Mass/Vol] 1.0 mg/dL Normal 0.2-1.0 [facility] Comment on above: Performed By: #### V ITAD, IRON #### [facility] [address] [address] [address] Chucho Jesus Calcium [Mass/Vol] 9.4 mg/dL Normal 8.5-10.1 [facility] Comment on above: Performed By: #### V ITAD, IRON #### [facility] [address] [address] [address] Chucho Jesus Chloride [Moles/Vol] 103 mmol/L Normal 98-107 [facility] Comment on above: Performed By: #### V ITAD, IRON #### [facility] [address] [address] [address] Chucho Jesus CO2 [Moles/Vol] 24.9 mmol/L Normal 21.0-32.0 [facility] Comment on above: Performed By: #### V ITAD, IRON #### [facility] [address] [address] [address] Chucho Jesus Creatinine [Mass/Vol] 0.68 mg/dL Normal 0.55-1.02 [facility] Comment on above: Performed By: #### V ITAD, IRON #### [facility] [address] [address] [address] Chucho Jesus EGFR-AF MARTINIQUAIS >60 Normal >=60 [facility] Comment on above: Performed By: #### V ITAD, IRON #### [facility] [address] [address] [address] Chucho Jesus EGFR-NON AF MARTINIQUAIS >60 Normal >=60 [facility] Comment on above: Performed By: #### V ITAD, IRON #### [facility] [address] [address] [address] Chucho Jesus Globulin (S) [Mass/Vol] 3.9 g/dL Normal [facility] Comment on above: Performed By: #### V ITAD, IRON #### [facility] [address] [address] [address] Chucho Jesus Glucose [Mass/Vol] 89 mg/dL Normal 74-106 [facility] Comment on above: Performed By: #### V ITAD, IRON #### [facility] [address] [address] [address] Chucho Jesus Potassium [Moles/Vol] 4.2 mmol/L Normal 3.5-5.1 [facility] Comment on above: Performed By: #### V ITAD, IRON #### [facility] [address] [address] [address] Chucho Jesus Protein [Mass/Vol] 8.1 g/dL Normal 6.4-8.2 [facility] Comment on above: Performed By: #### V ITAD, IRON #### [facility] [address] [address] [address] Chucho Jesus Sodium [Moles/Vol] 138 mmol/L Normal 136-145 [facility] Comment on above: Performed By: #### V ITAD, IRON #### [facility] [address] [address] [address] Chucho Jesus Urea nitrogen [Mass/Vol] 9.0 mg/dL Normal 7.0-18.0 [facility] Comment on above: Performed By: #### V ITAD, IRON #### [facility] [address] [address] [address] Chucho Jesus Urea nitrogen/Creatinine [Mass ratio] 13.2 mg/mg Normal [facility] Comment on above: Performed By: #### V ITAD, IRON #### [facility] [address] [address] [address] Chucho Jesus TSHon 11-07-2022 TSH 1.668 uIU/mL Normal 0.358-3.740 [facility] Comment on above: Performed By: #### V ITAD, IRON #### [facility] [address] [address] [address] Chucho Jesus Covid-19 PCR (CVDTBH)on SARS-CoV-2 (COVID-19) RNA DMITRY+probe Ql (Unsp spec) Not detected Normal NOT DETECTED [facility] Comment on above: Result Comment: When diagnostic [...] for this test is supported by the Screen[employer] of Health and Human Service's declaration that [...] Performed By: #### V ITAD, IRON #### [facility] [address], [place] [address] Dr. Chucho Jesus Covid-19 PCR (CVDTBH)on SARS-CoV-2 (COVID-19) RNA DMITRY+probe Ql (Unsp spec) Not detected Normal NOT DETECTED [facility] Comment on above: Result Comment: When diagnostic [...] for this test is supported by the Independence of Health and Human Service's declaration that [...] used). Performed By: #### C VDTB #### [facility] [address] [place] [address] Dr. Chucho Jesus INFLUENZA A AND B [facility] 08-11 [facility] SEE BELOW Normal [facility] Comment on above: Result Comment: Nega tive for Flu A protein angiten. Infection due to Flu A cannot be ruled out. Flu A angiten in the sample may be below the detection limit of the test. Performed By: #### I NFLUAB #### [facility] [address] [place] [address] Dr. Chucho Jesus [facility] Normal [facility] Comment on above: Result Comment: Nega tive for Flu B protein antigen. Infection due to Flu B cannot be ruled out. Flu B antigen in the sample may be below the detection limit of the test. Performed By: #### I NFLUAB #### [facility] [address] [place] [address] Dr. Chucho Jesus INFLUENZA A AG Negative Normal NEGATIVE SEE COMMENT [facility] Comment on above: Performed By: #### I NFLUAB #### [facility] [address] [place] [address] Dr. Chucho Jesus INFLUENZA B AG Negative Normal NEGATIVE SEE COMMENT [facility] Comment on above: Performed By: #### I NFLUAB #### [facility] [address] [address] [address] Chucho Jesus Covid-19 PCR ([facility]on 05-07 SARS-CoV-2 (COVID-19) RNA DMITRY+probe Ql (Unsp spec) Not detected Normal NOT DETECTED [facility] Comment on above: Result Comment: When diagnostic [...] for this test is supported by the Independence of Health and Human Service's declaration that [...] Performed By: #### V ITAD, IRON #### [facility] [address] [place] [address] Dr. Chucho Jesus INFLUENZA A AND B AGon 05-26 [facility] SEE BELOW Normal [facility] Comment on above: Result Comment: Nega tive for Flu A protein angiten. Infection due to Flu A cannot be ruled out. Flu A angiten in the sample may be below the detection limit of the test. Performed By: #### V ITAD, IRON #### [facility] [address] [address] [address] [facility]ucho [facility] Normal [facility] Comment on above: Result Comment: Nega tive for Flu B protein antigen. Infection due to Flu B cannot be ruled out. Flu B antigen in the sample may be below the detection limit of the test. Performed By: #### V ITAD, IRON #### [facility] [address] [address] [address] Chucho Jesus INFLUENZA A AG Negative Normal NEGATIVE SEE COMMENT [facility] Comment on above: Performed By: #### V ITAD, IRON #### [facility] [address] [place] [address] Dr. Chucho Jesus INFLUENZA B AG Negative Normal NEGATIVE SEE COMMENT [facility] Comment on above: Performed By: #### V ITAD, IRON #### [facility] [address] [address] [address] Chucho Jesus INTERNAL CONTROLS Within Normal Limits Normal Wi thin Normal Limits [facility] Comment on above: Performed By: #### V ITAD, IRON #### [facility] [address] [place] [address] Dr. Chucho Jesus ER URINE PROFILEon 2 Bilirubin Ql (U) Negative Normal NEGATIVE [facility] Comment on above: Performed By: #### V ITAD, IRON #### [facility] [address] [place] [address] Dr. Chucho Jesus Clarity (U) CLEAR Normal CLEAR [facility] Comment on above: Performed By: #### V ITAD, IRON #### [facility] [address] [place] [address] Dr. Chucho Jesus Color (U) YELLOW Normal YELLOW [facility] Comment on above: Performed By: #### V ITAD, IRON #### [facility] [address] [place] [address] Dr. Chucho BAHENA A micrscopic examination will be performed if indicated. Normal [facility] Comment on above: Performed By: #### V ITAD, IRON #### [facility] [address] [address] [address] Chucho Jesus Glucose Ql (U) Negative Normal NEGATIVE [facility] Comment on above: Performed By: #### V ITAD, IRON #### [facility] [facility] [address] [place] [address] Dr. Chucho Jesus Hemoglobin Ql (U) Negative Normal NEGATIVE [facility] Comment on above: Performed By: #### V ITAD, IRON #### [facility] [address] [place] [address] Dr. Chucho Jesus Ketones Ql (U) >=80 Abnormal NEGATIVE [facility] Comment on above: Performed By: #### V ITAD, IRON #### [facility] [address] [place] [address] Dr. Chucho Jesus LEUKOCYTES Negative Normal NEGATIVE [facility] Comment on above: Performed By: #### V ITAD, IRON #### [facility] [address] [place] [address] Dr. Chucho Jesus Nitrite Ql (U) Negative Normal NEGATIVE [facility] Comment on above: Performed By: #### V ITAD, IRON #### [facility] [address] [place] [address] Dr. Chucho Jesus pH (U) 6.0 [pH] Normal 5-9 [facility] Comment on above: Performed By: #### V ITAD, IRON #### [facility] [address] [place] [address] Dr. Chucho Jesus Protein (U) [Mass/Vol] 100 mg/dL Abnormal NEGATIVE/ TRACE [facility] Comment on above: Performed By: #### V ITAD, IRON #### [facility] [address] [place] [address] Dr. Chucho Jesus SPEC GRAVITY >=1.030 Abnormal 1.005-<=1.025 [facility] Comment on above: Performed By: #### V ITAD, IRON #### [facility] [address] [place] [address] Dr. Chucho Jesus UR MICRO IND INDICATED Normal [facility] Comment on above: Performed By: #### V ITAD, IRON #### [facility] [address] [place] [address] Dr. Chucho Jesus Urobilinogen Qn (U) 0.2 {Chelsea'U}/dL Normal 0.2 - 1. 0 [facility] Comment on above: Performed By: #### V ITAD, IRON #### [facility] [address] [place] [address] Dr. Chucho Jesus URon 05-22-2022 , QUAL Negative Normal NEGATIVE [facility] Comment on above: Performed By: #### V ITAD, IRON #### [facility] [address] [place] [address] Dr. Chucho Jesus URINE MICROSCOPIC ONLYon BACTERIA NONE SEEN Normal NONE SEEN [facility] Comment on above: Performed By: #### V ITAD, IRON #### [facility] [address] [address] [address] Chucho Jesus Bacteria identified Cx Nom (U) NOT INDICATED Normal [facility] Comment on above: Performed By: #### V ITAD, IRON #### [facility] [address] [place] [address] Dr. Chucho Jesus CAST NONE SEEN Normal NONE SEEN [facility] Comment on above: Performed By: #### V ITAD, IRON #### [facility] [address] [place] [address] Dr. Chucho Jesus Crystals LM Nom (Urine sed) NONE SEEN Normal NONE SEEN [facility] Comment on above: Performed By: #### V ITAD, IRON #### [facility] [address] [place] [address] Dr. Chucho Jesus Epithelial cells LM Ql (Urine sed) FEW Abnormal NONE SEEN /RARE [facility] Comment on above: Performed By: #### V ITAD, IRON #### [facility] [address] [place] [address] Dr. Chucho Jesus MUCOUS MODERATE Abnormal NONE SEEN [facility] Comment on above: Performed By: #### V ITAD, IRON #### [facility] [address] [place] [address] Dr. Chucho Jesus RBC NONE SEEN Abnormal 0-2 [facility] Comment on above: Performed By: #### V ITAD, IRON #### [facility] [address] [place] [address] Dr. Chucho Jesus WBC NONE SEEN Normal NONE SEEN [facility] Comment on above: Performed By: #### V ITAD, IRON #### [facility] [address] [place] [address] Dr. Chucho Jesus XR LSPINE 2_3 VIEWSon [...] SHAINA CAMPOS Date: 2022-05-22 12:28 Normal [facility] INSULINon 04-25-2022 Insulin 10.4 uIU/mL Normal 2.6-24.9 [facility] Comment on above: Performed By: #### V ITAD, IRON #### [facility] [address] [place] [address] Dr. Chucho Jesus CBC AUTO DIFFon 04-24-2022 BASO # 0.0 103/ul Normal 0.0-0.1 [facility] Comment on above: Performed By: #### C BC #### [facility] [address] [place] [address] Dr. Chucho Jesus Basophils/100 WBC (Bld) 0.6 % Normal 0.2-2.0 [facility] Comment on above: Performed By: #### C BC #### [facility] [address] [place] [address] Dr. Chucho Jesus EO # 0.1 103/ul Normal 0.0-0.7 [facility] Comment on above: Performed By: #### C BC #### [facility] [address] [place] [address] Dr. Chucho Jesus Eosinophils/100 WBC (Bld) 1.8 % Normal 0.9-7.0 [facility] Comment on above: Performed By: #### C BC #### [facility] [address] [place] [address] Dr. Chucho Jesus Erythrocyte distribution width (RBC) [Ratio] 12.9 % Normal 11.0-15.0 [facility] Comment on above: Performed By: #### C BC #### [facility] [address] [place] [address] Dr. Chucho Jesus Hematocrit (Bld) [Volume fraction] 45.6 % Normal 36.0-48.0 [facility] Comment on above: Performed By: #### C BC #### [facility] [address] [place] [address] Dr. Chucho Jesus Hemoglobin (Bld) [Mass/Vol] 14.7 g/dL Normal 12.0-16.0 [facility] Comment on above: Performed By: #### C BC #### [facility] [address] [place] [address] Dr. Chucho Jesus IG # 0.02 10e3/ul Normal 0.00-0.03 [facility] Comment on above: Performed By: #### C BC #### [facility] [address] [place] [address] Dr. Chucho Jesus IG % 0.3 % Normal 0.0-0.5 [facility] Comment on above: Performed By: #### C BC #### [facility] [address] [place] [address] Dr. Chucho Jesus LYMPH # 1.6 103/ul Normal 1.2-3.8 [facility] Comment on above: Performed By: #### C BC #### [facility] [address] [place] [address] Dr. Chucho Jesus Lymphocytes/100 WBC (Bld) 24.5 % Normal 20.5-60.0 [facility] Comment on above: Performed By: #### C BC #### [facility] [address] [place] [address] Dr. Chucho Jesus MANUAL DIFF REQ NO Normal [facility] Comment on above: Performed By: #### C BC #### [facility] [address] [place] [address] Dr. Chucho Jesus MCH (RBC) [Entitic mass] 28.4 pg Normal 26.7-34.0 [facility] Comment on above: Performed By: #### C BC #### [facility] [address] [place] [address] Dr. Chucho Jesus MCHC (RBC) [Mass/Vol] 32.2 g/dL Normal 29.9-35.2 [facility] Comment on above: Performed By: #### C BC #### [facility] [address] [place] [address] Dr. Chucho Jesus MCV (RBC) [Entitic vol] 88.2 fL Normal 81.0-99.0 [facility] Comment on above: Performed By: #### C BC #### [facility] [address] [place] [address] Dr. Chucho Jesus MONO # 0.5 103/ul Normal 0.3-0.8 [facility] Comment on above: Performed By: #### C BC #### [facility] [address] [place] [address] Dr. Chucho Jesus Monocytes/100 WBC (Bld) 7.4 % Normal 1.7-12.0 [facility] Comment on above: Performed By: #### C BC #### [facility] [address] [place] [address] Dr. Chucho Jesus NEUT # 4.4 103/ul Normal 1.4-6.5 [facility] Comment on above: Performed By: #### C BC #### [facility] [address] [place] [address] Dr. Chucho Jesus Neutrophils/100 WBC (Bld) 65.4 % Normal 43.0-75.0 [facility] Comment on above: Performed By: #### C BC #### [facility] [address] [place] [address] Dr. Chucho Jesus Platelet mean volume (Bld) [Entitic vol] 9.9 fL Normal 9.5-13.5 [facility] Comment on above: Performed By: #### C BC #### [facility] [address] [place] [address] Dr. Chucho Jesus PLT 225 103/ul Normal 150-450 [facility] Comment on above: Performed By: #### C BC #### [facility] [address] [place] [address] Dr. Chucho Jesus RBC 5.17 106/ul Normal 4.20-5.40 [facility] Comment on above: Performed By: #### C BC #### [facility] [address] [place] [address] Dr. Chucho Jesus WBC 6.7 103/ul Normal 4.0-11.0 [facility] Comment on above: Performed By: #### C BC #### [facility] [address] [place] [address] Dr. Chucho Jesus FREE THYROXINE INDEX T7on FTI 3.29 Normal 1.30-4.50 [facility] Comment on above: Performed By: #### T 7, TSH, LIPID, CMP #### [facility] [address] [place] [address] Dr. Chucho Jesus T3U 27.0 % Critically low 30.0-39.0 [facility] Comment on above: Performed By: #### T 7, TSH, LIPID, CMP #### [facility] [address] [place] [address] Dr. Chucho Jesus T4 [Mass/Vol] 12.20 ug/dL Normal 4.80-13.90 [facility] Comment on above: Performed By: #### T 7, TSH, LIPID, CMP #### [facility] [address] [place] [address] Dr. Chucho Jesus GLYCOHEMOGLOBIN A1Con 2021 ADA RECOMMENDATION SEE BELOW Normal [facility] Comment on above: Result Comment: ADA RECOMMENDED LIMIT 4.0 - 6.0 ADA THERAPEUTIC TARGET < 7.0 ACTION SUGGESTED > 7.0 Performed By: #### A 1C #### [facility] [address] [place] [address] Dr. Chucho Jesus Glucose [Mass/Vol] 105 mg/dL Normal [facility] Comment on above: Performed By: #### A 1C #### [facility] [address] [place], [place] [id number] Dr. Chucho Jesus HbA1c (Bld) [Mass fraction] 5.3 % Normal 4.5-6.2 [facility] Comment on above: Performed By: #### A 1C #### [facility] [address] [place] [address] Dr. Chucho Jesus IRONon 04-24-2022 Iron [Mass/Vol] 48.0 ug/dL Critically low 50.0-170.0 [facility] Comment on above: Performed By: #### V ITAD, IRON #### [facility] [address] [place] [address] Dr. Chucho Jesus LIPID PROFILEon 04-24-2022 CHOL-HDL RATIO NORM SEE BELOW Normal [facility] Comment on above: Result Comment: 3.3 - 4.4 LOW RISK 4.4 - 7.1 AVERAGE RISK 7.1 - 11.0 MODERATE RISK >11.0 HIGH RISK Performed By: #### V ITAD, IRON #### [facility] [address] [place] [address] Dr. Chucho Jesus Cholesterol [Mass/Vol] 184 mg/dL Normal <=200 [facility] Comment on above: Performed By: #### V ITAD, IRON #### [facility] [address] [place] [address] Dr. Chucho Jesus Cholesterol in HDL [Mass/Vol] 55 mg/dL Normal 40-60 [facility] Comment on above: Performed By: #### V ITAD, IRON #### [facility] [address] [place] [address] Dr. Chucho Jesus Cholesterol in LDL [Mass/Vol] 116.6 mg/dL Normal [facility] Comment on above: Performed By: #### V ITAD, IRON #### [facility] [address] [place] [address] Dr. Chucho Jesus Cholesterol.total/C holesterol in HDL [Mass ratio] 3.3 {ratio} Normal [facility] Comment on above: Performed By: #### V ITAD, IRON #### [facility] [address] [place] [address] Dr. Chucho Jesus HDL NORMAL > or = 60 mg/dl - LO W CARDIOVASCULAR RISK <40 mg/dl - HIGH CARDIOVASCULAR RISK Normal [facility] Comment on above: Performed By: #### V ITAD, IRON #### [facility] [address] [address] [address] Chucho Jesus LDL CALC NORMAL SEE BELOW Normal [facility] Comment on above: Result Comment: <100 mg/dl OPTIMAL 100 - 129 mg/dl NEAR OR ABOVE OPTIMAL 130 - 159 mg/dl BORDERLINE HIGH 160 - 189 mg/dl HIGH >190 mg/dl VERY HIGH Performed By: #### V ITAD, IRON #### [facility] [address] [address] [address] Chucho Jesus Triglyceride [Mass/Vol] 62 mg/dL Normal <=150 [facility] Comment on above: Performed By: #### V ITAD, IRON #### [facility] [address] [address] [address] Chucho Jesus VLDL CALC 12.4 mg/dL Normal [facility] Comment on above: Performed By: #### V ITAD, IRON #### [facility] [address] [address] [address] Chucho Jesus PROF 14(COMP METB)on 04-24- 022 Albumin [Mass/Vol] 3.7 g/dL Normal 3.4-5.0 [facility] Comment on above: Performed By: #### T 7, TSH, LIPID, CMP #### [facility] [address] [address] [address] Chucho Jesus Albumin/Globulin [Mass ratio] 0.9 {ratio} Normal [facility] Comment on above: Performed By: #### T 7, TSH, LIPID, CMP #### [facility] [address] [address] [address] Chucho Jesus ALP [Catalytic activity/Vol] 74 U/L Normal 46-116 [facility] Comment on above: Performed By: #### T 7, TSH, LIPID, CMP #### [facility] [address] [address] [address] Chucho Jesus ALT [Catalytic activity/Vol] 16 U/L Normal 14-59 [facility] Comment on above: Performed By: #### T 7, TSH, LIPID, CMP #### [facility] [address] [place] [address] Dr. Chucho Jesus Anion gap [Moles/Vol] 12.3 mmol/L Normal [facility] Comment on above: Performed By: #### T 7, TSH, LIPID, CMP #### [facility] [address] [place] [address] Dr. Chucho Jesus AST [Catalytic activity/Vol] 13 U/L Critically low 15-37 [facility] Comment on above: Performed By: #### T 7, TSH, LIPID, CMP #### [facility] [address] [place] [address] Dr. Chucho Jesus Bilirubin [Mass/Vol] 0.4 mg/dL Normal 0.2-1.0 [facility] Comment on above: Performed By: #### T 7, TSH, LIPID, CMP #### [facility] [address] [place] [address] Dr. Chucho Jesus Calcium [Mass/Vol] 8.9 mg/dL Normal 8.5-10.1 [facility] Comment on above: Performed By: #### T 7, TSH, LIPID, CMP #### [facility] [address] [place] [address] Dr. Chucho Jesus Chloride [Moles/Vol] 105 mmol/L Normal 98-107 [facility] Comment on above: Performed By: #### T 7, TSH, LIPID, CMP #### [facility] [address] [place] [address] Dr. Chucho Jesus CO2 [Moles/Vol] 26.6 mmol/L Normal 21.0-32.0 [facility] Comment on above: Performed By: #### T 7, TSH, LIPID, CMP #### [facility] [address] [place] [address] Dr. Chucho Jesus Creatinine [Mass/Vol] 0.68 mg/dL Normal 0.55-1.02 [facility] Comment on above: Performed By: #### T 7, TSH, LIPID, CMP #### [facility] [address] [address] [address] Chucho Jesus EGFR-AF MARTINIQUAIS >60 Normal >=60 [facility] Comment on above: Performed By: #### T 7, TSH, LIPID, CMP #### [facility] [address] [address] [address] Chucho Jesus EGFR-NON AF MARTINIQUAIS >60 Normal >=60 [facility] Comment on above: Performed By: #### T 7, TSH, LIPID, CMP #### [facility] [address] [address] [address] Chucho Jesus Globulin (S) [Mass/Vol] 4.3 g/dL Normal [facility] Comment on above: Performed By: #### T 7, TSH, LIPID, CMP #### [facility] [address] [address] [address] Chucho Jesus Glucose [Mass/Vol] 87 mg/dL Normal 74-106 [facility] Comment on above: Performed By: #### T 7, TSH, LIPID, CMP #### [facility] [address] [address] [address] Chucho Jesus Potassium [Moles/Vol] 3.9 mmol/L Normal 3.5-5.1 [facility] Comment on above: Performed By: #### T 7, TSH, LIPID, CMP #### [facility] [address] [address] [address] Chucho Jesus Protein [Mass/Vol] 8.0 g/dL Normal 6.4-8.2 [facility] Comment on above: Performed By: #### T 7, TSH, LIPID, CMP #### [facility] [address] [address] [address] Chucho Jesus Sodium [Moles/Vol] 140 mmol/L Normal 136-145 [facility] Comment on above: Performed By: #### T 7, TSH, LIPID, CMP #### [facility] [address] [address] [address] Chucho Jesus Urea nitrogen [Mass/Vol] 9.0 mg/dL Normal 7.0-18.0 [facility] Comment on above: Performed By: #### T 7, TSH, LIPID, CMP #### [facility] [address] [address] [address] Chucho Jesus Urea nitrogen/Creatinine [Mass ratio] 13.2 mg/mg Normal [facility] Comment on above: Performed By: #### T 7, TSH, LIPID, CMP #### [facility] [address] [address] [address] Chucho Jesus TSHon 04-24-2022 TSH 1.127 uIU/mL Normal 0.358-3.740 [facility] Comment on above: Performed By: #### T 7, TSH, LIPID, CMP #### [facility] [address] [place] [address] Dr. Chucho Jesus VITAMIN D 25 OHon 04-24-2022 VIT D 25-OH 35.2 ng/mL Normal [facility] Comment on above: Performed By: #### V ITAD, IRON #### [facility] [address] [place] [address] Dr. Chucho Jesus VIT D RANGES SEE BELOW Normal [facility] Comment on above: Result Comment: <20 ng/mL Vit D deficient 20 - <30 ng/mL Vit D insufficient 30 - 100 ng/mL Vit D sufficient >100 ng/mL Potential Toxicity Performed By: #### V ITAD, IRON #### [facility] [address] [place] [address] Dr. Chucho Jesus HCG ( test) Ql (U)O rdered By: James Churchill on 12-05-2020 Internal Control Pass [facility] Interpretation and review of laboratory results Normal [facility] POC , UrineOrdered By: James Churchill on 12-05-2020 HCG ( test) Ql (U) Negative Negative [facility] CTA CHEST WITH CONTRASTon CTA CHEST [...] by:Ady Tran MD03/25/17Edited Result - FINAL Normal [facility] Basic Metabolic Profon 02-19 (cont.) Normal [facility] Comment on above: Result Comment: Aver age GFR for 20-29 years old: 116 mL/min/1.73sq mChronic Kidney Disease: <60 mL/min/1.73sq mKidney failure: <15 mL/min/1.73sq meGFR calculated using average adult body mass. Additional eGFR calculator available at:http://www.Nuvosun.Nommunity/multiple_crcl_2012.htm Performed By: #### C DP, BMP, TROPI ####[address] [place] [address] Anion gap 14 mmol/L Normal - [facility] Comment on above: Performed By: #### C DP, BMP, TROPI ####[address] [place] [address] BUN/CRE Ratio 13 Normal - [facility] Comment on above: Performed By: #### C DP, BMP, TROPI ####[address] [place] [address] Calcium 9.2 mg/dL Normal 8.6-10.4 [facility] Comment on above: Performed By: #### C DP, BMP, TROPI ####[address] [place] [address] Chloride 105 mmol/L Normal 98-107 [facility] Comment on above: Performed By: #### C DP, BMP, TROPI ####[address] [place] [address] CO2 23 mmol/L Normal 20-31 [facility] Comment on above: Performed By: #### C DP, BMP, TROPI ####[address] [place] [address] Creatinine 0.55 mg/dL Normal 0.50-0.90 [facility] Comment on above: Performed By: #### C DP, BMP, TROPI ####[address] [place] [address] eGFR (non-black) mL/min/{1.73_m2} Normal >60 [facility] Comment on above: Performed By: #### C DP, BMP, TROPI ####[address] [place] [address] Glucose mass conc 96 mg/dL Normal 70-99 [facility] Comment on above: Performed By: #### C DP, BMP, TROPI ####[address] [place] [address] Potassium molar conc 3.6 mmol/L Low 3.7-5.3 [facility] Comment on above: Performed By: #### C DP, BMP, TROPI ####[address] [place] [address] Sodium 142 mmol/L Normal 135-144 [facility] Comment on above: Performed By: #### C DP, BMP, TROPI ####[address] [place] [address] Staging: Normal [facility] Comment on above: Result Comment: Stag e 1: Some kidney damage normal GFRStage 2: Mild kidney damage GFR 60-89Stage 3: Moderate kidney damage GFR 30-59Stage 4: Severe kidney damage GFR 15-29Stage 5: Severe kidney damage GFR <15ESRD - chronic treatment by dialysis or transplantPerformed at [address] [place] [address] Performed By: #### C DP, BMP, TROPI ####[address] [place] [address] Urea nitrogen 7 mg/dL Normal 6-20 [facility] Comment on above: Performed By: #### C DP, BMP, TROPI ####[address] [facility] CBC with Diffon 02-19-2017 Abs. Basophil 0.00 k/uL Normal 0.0-0.2 [facility] Comment on above: Result Comment: Perf ormed at [address] [place] [address] Performed By: #### C DP, BMP, TROPI ####[address] [address] Abs.Neutrophil (Seg) 7.10 k/uL Normal 1.8-8.0 [facility] Comment on above: Performed By: #### C DP, BMP, TROPI ####[address] , [place] [address] Basophils/100 WBC Auto (Bld) 0 % Normal [facility] Comment on above: Performed By: #### C DP, BMP, TROPI ####[address] [place] [address] Eosinophils 0.30 10*3/uL Normal 0.0-0.4 [facility] Comment on above: Performed By: #### C DP, BMP, TROPI ####[address] [place] [address] Eosinophils/100 leukocytes 3 % Normal [facility] Comment on above: Performed By: #### C DP, BMP, TROPI ####[address] [place] [address] Erythrocyte distribution width Auto Ratio (RBC) 13.6 % Normal 12.1-15.2 [facility] Comment on above: Performed By: #### C DP, BMP, TROPI ####[address] [place] [address] Erythrocytes (RBC) 5.03 10*6/uL Normal 4.0-5.2 [facility] Comment on above: Performed By: #### C DP, BMP, TROPI ####[address] [place] [address] Hematocrit (HCT) 40.2 % Normal 36-46 [facility] Comment on above: Performed By: #### C DP, BMP, TROPI ####[address] [place] [address] Hemoglobin mass conc (Bld) 13.2 g/dL Normal 12.0-16.0 [facility] Comment on above: Performed By: #### C DP, BMP, TROPI ####[address] [place] [address] Lymphocytes 2.90 10*3/uL Normal 1.2-5.2 [facility] Comment on above: Performed By: #### C DP, BMP, TROPI ####[address] [place] [address] Lymphocytes/100 leukocytes 27 % Normal [facility] Comment on above: Performed By: #### C DP, BMP, TROPI ####[address] [place] [address] MCH 26.2 pg Normal 26-34 [facility] Comment on above: Performed By: #### C DP, BMP, TROPI ####[address] , [facility] MCHC mass conc (RBC) 32.8 g/dL Normal 31-37 [facility] Comment on above: Performed By: #### C DP, BMP, TROPI ####[address] , [facility] MCV 79.9 fL Low 80-100 [facility] Comment on above: Performed By: #### C DP, BMP, TROPI ####[address] [place] [address] Monocytes 0.60 10*3/uL Normal 0.0-1.0 [facility] Comment on above: Performed By: #### C DP, BMP, TROPI ####[address] , [place] [address] Monocytes/100 leukocytes 5 % Normal [facility] Comment on above: Performed By: #### C DEION, BMP, TROPI ####[address] [place] [address] Neutrophil (Seg) 65 % Normal [facility] Comment on above: Performed By: #### C DP, BMP, TROPI ####[address] [place] [address] Platelet mean volume (PMV) 9.6 fL Normal 6.0-12.0 [facility] Comment on above: Performed By: #### C DP, BMP, TROPI ####[address] [place] [address] Platelets 278 10*3/uL Normal 140-450 [facility] Comment on above: Performed By: #### C DP, BMP, TROPI ####[address] [place] [address] WBC (Leukocytes) 10.8 10*3/uL Normal 4.5-13.5 [facility] Comment on above: Performed By: #### C DP, BMP, TROPI ####[address] [place] [address] Auto Diff Performed NOT REPORTED Normal [facility] Comment on above: Performed By: #### C DP, BMP, TROPI ####[address] [place] [address] Erythrocyte morphology NOT REPORTED Normal [facility] Comment on above: Performed By: #### C DP, BMP, TROPI ####[address] [place] [address] Platelets NOT REPORTED Normal [facility] Comment on above: Performed By: #### C DP, BMP, TROPI ####[address] [place] [address] WBC Morphology NOT REPORTED Normal [facility] Comment on above: Performed By: #### C DP, BMP, TROPI ####[address] [place] [address] ED Noteon 02-19-2017 HIM IP Note OR Glove Pairer Normal [facility] ED Provider Noteon 7 HIM IP Note OR Glove Pairer Normal [facility] Troponinon 02-19-2017 Troponin T.cardiac mass conc ug/L Normal <0.03 [facility] Comment on above: Result Comment: Trop onin T results cannot be compared to Troponin-I results. Performed By: #### C DP, BMP, TROPI ####[address] [place] [address] Troponin I.cardiac mass conc Normal [facility] Comment on above: Result Comment: Refe rence Range: <0.03 Within reference range. 0.03-0.09 Possible myocardial damage.Repeat at appropriate intervals to rule out chronic elevation. >= 0.10 Indicative of myocardial damage.Performed at [address] [place] [address] ([phone] Performed By: #### C DP, BMP, TROPI ####[address] [place] [address] Vital Signs Date Time Vital Sign Value Performing Clinician Facility 06-21-2024 13:31-0500 Body mass index (BMI) [Ratio] 35.61 kg/m2 Little LOWRY Work Phone: [facility] 06-21-2024 13:31-0500 Body weight 97.07 kg Little LOWRY Work Phone: [facility] 06-21-2024 13:31-0500 Diastolic blood pressure 72 mm[Hg] Little Christie PA Work Phone: [facility] 06-21-2024 13:31-0500 Systolic blood pressure 116 mm[Hg] Little Christie PA Work Phone: [facility] 06-07-2024 13:49-0500 Body mass index (BMI) [Ratio] 34.61 kg/m2 Berto Luis DO Work Phone: [facility] 06-07-2024 13:49-0500 Body weight 94.35 kg Berto Luis DO Work Phone: [facility] 06-07-2024 13:49-0500 Diastolic blood pressure 70 mm[Hg] Berto Luis DO Work Phone: [facility] 06-07-2024 13:49-0500 Systolic blood pressure 120 mm[Hg] Berto Luis DO Work Phone: [facility] 05-24-2024 14:26-0500 Body mass index (BMI) [Ratio] 33.75 kg/m2 Little Christie PA Work Phone: [facility] 05-24-2024 14:26-0500 Body weight 91.99 kg Little Christie PA Work Phone: [facility] 05-24-2024 14:26-0500 Diastolic blood pressure 70 mm[Hg] Little Santa Rosa PA Work Phone: [facility] 05-24-2024 14:26-0500 Systolic blood pressure 108 mm[Hg] Little Christie PA Work Phone: [facility] 05-09-2024 11:44-0500 Body mass index (BMI) [Ratio] 33.28 kg/m2 Berto Luis DO Work Phone: [facility] 05-09-2024 11:44-0500 Body weight 90.72 kg Berto Luis DO Work Phone: [facility] 05-09-2024 11:44-0500 Diastolic blood pressure 64 mm[Hg] Berto Luis DO Work Phone: [facility] 05-09-2024 11:44-0500 Systolic blood pressure 118 mm[Hg] Berto Luis DO Work Phone: [facility] 04-11-2024 10:37-0400 Body mass index (BMI) [Ratio] 31.12 kg/m2 Little Christie PA Work Phone: [facility] 04-11-2024 10:37-0400 Body weight 84.82 kg Little Christie PA Work Phone: [facility] 04-11-2024 10:37-0400 Diastolic blood pressure 68 mm[Hg] Little Chritsie PA Work Phone: [facility] 04-11-2024 10:37-0400 Systolic blood pressure 116 mm[Hg] Little Christie PA Work Phone: [facility] 03-14-2024 11:44-0400 Body mass index (BMI) [Ratio] 28.62 kg/m2 Berto Luis DO Work Phone: [facility] 03-14-2024 11:44-0400 Body weight 78.02 kg Berto Luis DO Work Phone: [facility] 03-14-2024 11:44-0400 Diastolic blood pressure 74 mm[Hg] Berto Luis DO Work Phone: [facility] 03-14-2024 11:44-0400 Systolic blood pressure 118 mm[Hg] Berto Smith DO Work Phone: [facility] 02-27-2023 14:39-0400 Blood Pressure Location Gary DANGELOL [facility] 02-27-2023 14:39-0400 Diastolic blood pressure 66 mm[Hg] Gary DANGELOL [facility] 02-27-2023 14:39-0400 Heart rate 70 /min Gary DANGELOL [facility] 02-27-2023 14:39-0400 Respiratory rate 16 /min Gary DANGELOL [facility] 02-27-2023 14:39-0400 Systolic blood pressure 106 mm[Hg] Gary DANGELOL [facility] 01-08-2022 08:09-0400 Body temperature 98.01 [degF] Wiley Rice DO Work Phone: [facility] 01-08-2022 08:09-0400 Body weight 75.75 kg Wiley Rice DO Work Phone: [facility] 01-08-2022 08:09-0400 Diastolic blood pressure 71 mm[Hg] Wiley Rice DO Work Phone: [facility] 01-08-2022 08:09-0400 Heart rate 98 /min Wiley Rice DO Work Phone: [facility] 01-08-2022 08:09-0400 Systolic blood pressure 112 mm[Hg] Wiley Rice DO Work Phone: [employer] 12-10-2021 14:45-0400 Body height 166.37 cm Bret Long Other [facility] Other 12-10-2021 14:45-0400 Body mass index (BMI) [Ratio] 26.55 kg/m2 Bret Long Other [facility] 12-10-2021 14:45-0400 Body weight 73.48 kg Bret Long Other [facility] 12-10-2021 14:45-0400 Diastolic blood pressure 72 mm[Hg] Bret Long Other [facility] 12-10-2021 14:45-0400 Systolic blood pressure 103 mm[Hg] Bret Long Other [facility] 11-27-2021 14:01-0400 Body temperature 98.4 [degF] Wiley Rice DO Work Phone: [facility] 11-27-2021 14:01-0400 Body weight 74.84 kg Wiley Rice DO Work Phone: [facility] [employer] 11-27-2021 14:01-0400 Diastolic blood pressure 64 mm[Hg] Wiley Rice DO Work Phone: [employer] [facility] 11-27-2021 14:01-0400 Heart rate 98 /min Wiley Rice DO Work Phone: [employer] [facility] 11-27-2021 14:01-0400 Systolic blood pressure 121 mm[Hg] Wiley Rice DO Work Phone: [facility] 12-05-2020 19:26-0400 Heart rate 106 /min James Breece PA-C Work Phone: [facility] 12-05-2020 19:25-0400 Body temperature 98.29 [degF] James Breece PA-C Work Phone: [facility] 12-05-2020 19:25-0400 Body weight 97.98 kg James Breece PA-C Work Phone: [facility] 12-05-2020 19:25-0400 Diastolic blood pressure 86 mm[Hg] James Breece PA-C Work Phone: [facility] 12-05-2020 19:25-0400 Respiratory rate 16 /min James Breece PA-C Work Phone: [facility] 12-05-2020 19:25-0400 SaO2% (BldA) [Mass fraction] 97 % James Breece PA-C Work Phone: [facility] 12-05-2020 19:25-0400 Systolic blood pressure 126 mm[Hg] James Breece PA-C Work Phone: [facility] Encounters Encounter Date Encounter Type Care [...] visit 15 minutes Little LOWRY Work Phone: [facility] Comment on above: Third trimester preg lenin; 29 weeks gestation of ; Upper respiratory tract infection, unspecified type Start: 05-24-2024 End: 05-24-2024 ambulatory LITTLE CHRISTIE Not Available Start: 05-24-2024 End: 05-24-2024 Bamboo flowsheet Little LOWRY Work Phone: [facility] Start: 05-24-2024 End: 05-24-2024 Bamboo flowsheet Little LOWRY Work Phone: [facility] Start: 05-09-2024 End: 05-09-2024 Bamboo flowsheet Berto Luis DO Work Phone: [facility] Start: 05-09-2024 End: 05-09-2024 Bamboo flowsheet Berto Luis DO Work Phone: [facility] Start: 05-09-2024 End: 05-09-2024 Office outpatient visit 15 minutes Berto Luis DO Work Phone: [facility] Comment on above: Second trimester pre gnancy; 26 weeks gestation of ; History of miscarriage Start: 05-09-2024 End: 05-09-2024 ambulatory BERTO LUIS Not Available Start: 04-11-2024 End: 04-11-2024 Bamboo flowsheet Little LOWRY Work Phone: [facility] Start: 04-11-2024 End: 04-11-2024 Bamboo flowsheet Little LOWRY Work Phone: [facility] Start: 04-11-2024 End: 04-11-2024 Office outpatient visit 15 minutes Little LOWRY Work Phone: [facility] Comment on above: Second trimester [...] Alexandra/Chris Kang Start: 02-23-2023 ambulatory Alexandr Bourgeois Facility:[facility] Start: 02-05-2023 ambulatory Gary MORRIS Facility:[facility] [...] . Facility:[facility] Start: 02-18-2022 ambulatory WILEY HARPERE M~[id number] [facility] Start: 02-12-2022 ambulatory WILEYNigel HARPERE M~[id number] [facility] Start: 02-12-2022 End: 02-12-2022 Telemedicine consultation with patient Wiley Huffman Rice DO Work Phone: [facility] Comment on above: Anxiety (Primary Dx) Start: 01-19-2022 Refill Luis Dipalma D O Work Phone: [facility] Start: 01-19-2022 Refill Luis Dipalma D O Work Phone: [facility] Start: 01-08-2022 End: 01-08-2022 ambulatory WILEYNigel HARPERE M~[id number] [facility] Start: 01-08-2022 End: 01-08-2022 Office outpatient visit 25 minutes Wiley Nathanael Rice DO Work Phone: [facility] Comment on above: Anxiety (Primary Dx) ; Hypotension, unspecified hypotension type Start: 01-08-2022 End: 01-08-2022 Patient encounter procedure Wiley M Rice DO Work Phone: [facility] Start: 12-11-2021 End: 12-11-2021 ambulatory WILEYNigel HARPERE M~[id number] [facility] Start: 12-10-2021 End: 12-10-2021 ambulatory Bret Long Other [facility] Other Start: 12-10-2021 Office outpatient ne w 45 minutes Bret Long [facility] Start: 11-27-2021 End: 11-27-2021 ambulatory WILEY Huffman~[id number] RICE RICE [facility] Start: 11-27-2021 End: 11-27-2021 Office outpatient new 30 minutes Wiley Osorio DO Work Phone: [facility] Comment on above: Anxiety (Primary Dx) Start: 11-27-2021 End: 11-27-2021 Patient encounter procedure Wiley Osorio DO Work Phone: [facility] Start: 11-25-2021 Telephone encounter Dana Kinsey [facility] Start: 12-05-2020 End: 12-05-2020 ambulatory PHYSICIAN NO [facility] Start: 12-05-2020 End: 12-05-2020 Office outpatient new 20 minutes James DENNYC Work Phone: [facility] [place] Comment on above: Vaginal sore (Primar y Dx) Start: 02-19-2017 End: 02-19-2017 Emergency department patient visit KIM Alfonso [facility] Procedures Date Procedure Procedure Detail Performing Clinician [...] AM EST Routine [facility] [address] [place] [id number] Little Christie, PA [address] [place] [address] [facility] Start: 06-21-2024 End: 06-21-2024 Patient encounter procedure 06/21/2024 1:20 PM EST Routine [facility] [address] [place] [address] Little Christie PA [address] [place] [address] [facility] Start: 06-07-2024 End: 06-07-2024 Patient encounter procedure 06/07/2024 1:30 PM EST Routine [facility] [address] [place] [id number] Berto Smith DO [address] [place] [address] [facility] Start: 05-24-2024 End: 05-24-2024 Patient encounter procedure 05/24/2024 2:10 PM EST Routine [facility] [address] [place] [id number] Little Christie, PA [address] [place], [place] [id number] Arrived [facility] Comment on above: Arrived Start: 05-23-2024 End: 05-23-2024 Patient encounter procedure 05/23/2024 1:50 PM EST Routine [facility] [address] [place] [address] Little Christie, PA [address] [place], [place] [id number] [facility] Start: 05-09-2024 End: 05-09-2025 [...] mellitus screening Expected: 04/11/2024 (Approximate), Expires: 04/11/2025 [facility] Comment on above: Expected: 04/11/2024 (Approximate), Expires: 04/11/2025 Start: 04-11-2024 End: 04-11-2024 Patient encounter procedure [facility] Comment on above: Arrived Start: 03-14-2024 End: 03-14-2024 Patient encounter procedure 03/14/2024 11:20 AM EDT Routine [facility] [address] [place] [address] Berto Smith, DO [address] [place] [address] Arrived [facility] Comment on above: Arrived Start: 03-06-2024 Influenza vaccination Influenza Vacc ine (#1) [facility] Start: 11-27-2022 Adolescent depressio n screening assessment Depression Screening [facility] Start: 03-06-2022 Influenza vaccination [facility] Start: 02-07-2022 End: 02-07-2022 Patient encounter procedure 02/07/2022 Office Visit [facility] Wiley Osorio DO [address] [place] [id number] [facility] Start: 12-19-2021 End: 12-19-2021 Patient encounter procedure 12/19/2021 Office Visit [facility] Wiley Osorio DO [address] [place] [id number] [facility] Start: 12-07-2021 COVID-19 Vaccine (3 - Booster for Moderna series) COVID-19 Vaccine (3 - Booster for Moderna series) [facility] Start: 11-27-2021 End: 05-25-2022 Patient encounter procedure 11/27/2021 Office Visit Family Medicine Wiley Osorio, DO [address] [place] [address] [facility] Start: 11-24-2021 Adolescent depressio n screening assessment Depression Screening [facility] Start: 11-24-2021 Hepatitis C screening Hepatitis C Sc reening [facility] Start: 11-24-2021 HIV screening HIV Screening [facility] Start: 11-24-2021 Social Influencers o f Health Screening Social Influencers of Health Screening [facility] Start: 03-06-2021 Influenza vaccination Sequenti al Influenza Vaccine (Season Ended) [facility] Start: 2017 Screening for malign ant neoplasm of cervix Cervical Cancer Screening: Pap Smear [facility] Start: 2015 DTaP,Tdap,and Td Vac cines (1 - Tdap) DTaP,Tdap,and Td Vaccines (1 - Tdap) [facility] Start: 2014 Hepatitis C screening Hepatitis C Sc reening [facility] Start: 2011 HIV screening HIV Screening [facility] Start: 2008 COVID-19 Vaccine (1) COVID-19 Vaccin e (1) [facility] Start: 2008 Depression screening using PHQ-9 (Patient Health Questionnaire 9) score Depression Screening (PHQ9) [facility] Start: 2007 HPV Vaccines (1 - 2- dose series) HPV Vaccines (1 - 2-dose series) [facility] Start: 2007 Vaccination for april n papillomavirus HPV Vaccines (1 - 2-dose series) [facility] Start: 2001 COVID-19 Vaccine (1) COVID-19 Vaccin e (1) [facility] Start: 1999 History and physical examination, annual for health maintenance Wellness Visit [facility] Start: 1996 Screening for Chlamy marilee trachomatis Chlamydia Screening [facility] Start: 1996 Screening for malign ant neoplasm of cervix Pap Smear [facility] Start: 1996 Tetanus vaccination Tetanus: Every 1 0yrs [facility] Chlamydia trachomati s rRNA assay Chlamydia/GC/Trichomon as Amplified RNA Microbiology Routine Vaginal sore Ordered: 12/05/2020 [facility] Comment on above: Ordered: 12/05/2020 HSV by PCR Superfici al Site HSV by PCR Superficial Site Lab Routine Vaginal sore Ordered: 12/05/2020 [facility] Comment on above: Ordered: 12/05/2020 Neisseria gonorrhoea e nucleic acid detection Chlamydia/Gonorrhoeae Amplified RNA Microbiology Routine Vaginal sore Ordered: 12/05/2020 [facility] Comment on above: Ordered: 12/05/2020 Trichomonas vaginali s Amplified RNA Trichomonas vaginalis Amplified RNA Microbiology Routine Vaginal sore Ordered: 12/05/2020 [facility] Comment on above: Ordered: 12/05/2020 Immunizations Immunization Date Immunization [facility] SARS-CoV-2 (COVID-19 ) mRNA-1273 vaccine Gary ALEXANDRA [facility] 06-08-2021 SARS-CoV-2 (COVID-19 ) mRNA-1273 vaccine Gary MORRIS [facility] 04-10-2011 influenza virus vaccine, unspecified formulation Berto Luispriscilla RUBY Work Phone: [facility] Healthcare Payers Date Payer Category Payer Private Health Insurance [facility] MEDICAID [id number] 2021 Medicaid [id number] 2020 Medicaid [id number]. [id number] 2016 Unknown [id number] 2013 Unknown [id number] 1996 Unknown [id number] 2.16.840.1.569262.3.579.2. 903 1996 Unknown [id number] 2.16.840.1.756939.3.579.2. 1143 1996 Unknown [id number] 2.16.840.1.651259.3.579.2. 1143 1996 Unknown [id number] 2.16.840.1.673098.3.579.2. 1143 1996 Unknown [id number] 2.16.840.1.752883.3.579.2. 1143 1996 Unknown [id number] 2.16.840.1.783893.3.579.2. 1143 1996 Unknown [id number] 2.16.840.1.496050.3.579.2. 593 1996 Unknown [id number] 2.16.840.1.144196.3.579.2. 593 1996 Unknown [id number] 2.16.840.1.422307.3.579.2. 593 1996 Unknown [id number] 2.16.840.1.575272.3.579.2. 593 1996 Unknown [id number] 2.16.840.1.588846.3.579.2. 593 1996 Unknown [id number] 2.16.840.1.861631.3.579.2. 593 1996 Unknown [id number] 2.16.840.1.802730.3.579.2. 593 1996 Unknown [id number] 2.16.840.1.951140.3.579.2. 727 1996 Unknown [id number] 2.16.840.1.728890.3.579.2. 1286 1996 Unknown [id number] 2.16.840.1.940771.3.579.2. 1286 1996 Unknown [id number] 2.16.840.1.558158.3.579.2. 9 1996 Unknown [id number] 2.16.840.1.011359.3.579.2. 9 1996 Unknown [id number] 2.16.840.1.690940.3.579.2. 1258 1996 Unknown [id number] 2.16.840.1.940421.3.579.2. 9 1996 Unknown [id number] 2.16.840.1.941041.3.579.2. 1258 1996 Unknown [id number] 2.16.840.1.285382.3.579.2. 9 1996 Unknown [id number] 2.16.840.1.921989.3.579.2. 1258 1996 Unknown [id number] 2.16.840.1.477561.3.579.2. 9 1996 Unknown [id number] 2.16.840.1.154208.3.579.2. 1258 1996 Unknown [id number] 2.16.840.1.496817.3.579.2. 1259 1960 Unknown [id number] 2.16.840.1.766729.3.579.2. 727 1959 Medicaid [id number] 1959 Self-pay 1959 Unknown [id number] 1959 Unknown [id number] 1959 Unknown [id number] Unknown [id number] 2.16.840.1.687964.3.579.2. 531 Social History Date Type Detail Facility Start: 12-05-2020 End: 02-27-2023 Tobacco smoking status NJIS Never smoker [facility] Start: 12-05-2020 End: 11-27-2021 Tobacco use and exposure Never used [facility] Start: 12-05-2020 Alcohol intake Current drinke r of alcohol (finding) [facility] Start: 12-05-2020 End: 11-27-2021 History SDOH Alcohol Frequency 1 [facility] Start: 12-05-2020 Alcohol Comment occ [facility] Start: 1996 Sex Assigned At Not on file [facility] Start: 11-17-2021 End: 02-12-2022 Exposure to SARS-CoV-2 (event) Not sure [facility] Tobacco smoking stat [facility] Tobacco smoking consumption unknown [facility] Start: 11-27-2021 End: 05-24-2024 Alcohol intake Lifetime non-drinker (finding) [facility] Start: 1996 Sex Assigned At Female [facility] Start: 12-17-2023 Sex Assigned At F [facility] Tobacco smoking status Never [facility] Start: 03-28-2023 Tobacco smoking stat [facility] Ex-smoker [facility] History of tobacco use Current smoker [facility] History of tobacco use Cigarette Smoker [facility] Start: 12-17-2023 History of Social function [facility] Start: 11-17-2023 [facility] Start: 01-19-2023 Gender identity Identifies as female gender (finding) [facility] Healthcare Functional Status Date Assessment Result Facility 02-27-2023 Functional Status N/A [facility] Clinical Notes 12-05-2020 to 06-21-2024 ESSENCE [...] note reviewed. Exam conducted with a senior scrum master present. Vitals: Estimated body mass index is [...] Little Christie PA-C documented in this encounter [facility] 06-07-2024 History of Present illness Narrative Reason [...] note reviewed. Exam conducted with a senior scrum master present. Vitals: Estimated body mass index is [...] Berto Smith DO documented in this encounter [facility] 05-24-2024 History of Present illness Narrative Reason [...] ADD (attention deficit disorder) Anxiety and depression ([facility]) ASCUS of cervix with negative high risk HPV BMI 27.0-27.9,adult Cystic fibrosis carrier Dysmenorrhea Encounter for gynecological examination (general) (routine) without abnormal findings Herpes simplex type 1 infection Intrauterine device surveillance Irritable bowel syndrome LGSIL on Pap smear of cervix Menorrhagia HISTORY PAST MEDICAL HISTORY SOCIAL HISTORY Past Medical History: Diagnosis Date Acne ADD (attention deficit disorder) Anxiety and depression ([facility]) ASCUS of cervix with negative high risk [...] encounter [facility] 05-09-2024 History of Present illness Narrative Reason [...] note reviewed. Exam conducted with a senior scrum master present. Vitals: Estimated body mass index is [...] Berto Smith DO documented [facility] encounter [facility] encounter [facility] 03-14-2024 History of Present illness Narrative Reason [...] note reviewed. Exam conducted with a senior scrum master present. Vitals: Estimated body mass index is [...] Berto Smith DO documented [facility] encounter [facility] [...] with excisional biopsy under local anesthesia at [facility]; call with problems/questions. Follow-up No qualifying [...] Recorded SARS-CoV-2 (COVID-19) mRNA-1273 vaccine 06/08/2021 Recorded [facility] Comment on above: Result Comment: Elec [...] at later date. documented in this encounter [facility] 01-08-2022 History of Present illness Narrative [...] due to buspirone. documented in this encounter [facility] 12-10-2021 Evaluation note Encounter Date Diagnosis Assessment Notes Dec, Irritable bowel syndrome with diarrhea (ICD-10 - K58.0) Continue medications without change Dec, Epigastric pain (ICD-10 - R10.13) Dec, Chronic nausea (ICD-10 - R11.0) Dec, Family history of carcinoma in situ of anal canal (ICD-10 - Z84.89) Dec, Other Continue Zofran prn Pt to call if symptoms worsen [facility] Other 05-25-2022 History of Present illness Narrative* Wiley Osorio DO - 11/27/2021 2:00 PM EDT Subjective Patient ID: Leslie Ford is a 26 y.o. female. Chief Complaint Patient presents with Establish Care 26 y.o. female presents to [facility]. History of anxiety and depression. Has [...] it ( July 2017) documented in this encounterExcela Frick [id number] History of Present illness Narrative* Dana Rosario [...] like me to do? documented in this encounterExcela Frick [id number] History of Present illness Narrative* James Churchill PA-C - 12/05/2020 8:22 PM EDT Images from the original note were not included. Patient Name: [facility] Location: [place] [id number] Date Of : Date Of Visit: 1995 12/05/2020 MRN# Provider: [id number] James Churchill PA-C Chief Complaint Patient presents [...] urine from irritatingthe sores. ? Take an ckvq-agq-kmcuaio pain medicine, such as acetaminophen (Tylenol), ibuprofen [...] Log into your personal health record on [email or web address] and enter E579 in the Education box to learn more about Genital Herpes: Care Instructions. Current as of: August 31, 2019 Content Version: 12.8 [employer]. Care instructions adapted under license by your healthcare professional. If you have questions about a medical condition or this instruction, always ask your healthcare professional. [employer] disclaims any warranty or liability for your use of this information. documented in this [id number] Instructions* Patient Instructions* James Churchill PA-C - [...] urine from irritatingthe sores. ? Take an nwpe-hww-llzhkto pain medicine, such as acetaminophen (Tylenol), ibuprofen [...] Log into your personal health record on [email or web address] and enter E579 in the Education box to learn more about Genital Herpes: Care Instructions. Current as of: August 31, 2019 Content Version: 12.8 [employer]. Care instructions adapted under license by your healthcare professional. If you have questions about a medical condition or this instruction, always ask your healthcare professional. [employer] disclaims any warranty or liability for your use of this information. documented in this encounterMarymount HospitalEvaluation + Plan note No data available for this section General Surgery [place] Evaluation note* Diagnosis Vaginal sore- Primary documented in this encounter [facility] note* Diagnosis Anxiety- Primary Anxiety state, unspecified documented [facility]* Diagnosis Anxiety- Primary Anxiety state, unspecified Hypotension, unspecified hypotension type documented in this encounter [facility] note* Diagnosis Anxiety- Primary Anxiety state, unspecified documented in this [facility]* Diagnosis Second trimester state, incidental 22 weeks gestation of Diabetes mellitus screening Screening for diabetes mellitus [facility] Diagnosis Second trimester state, incidental 26 weeks gestation of History of miscarriage Personal history of other genital system and obstetric disorders documented in this encounter [facility]* Diagnosis 31 weeks gestation of Third trimester state, incidental Gastroesophageal reflux in documented in this encounter [facility] note* Diagnosis Third trimester state, incidental 33 weeks gestation of documented in this encounter [facility] note* Diagnosis Second trimester state, incidental [facility]* Diagnosis Third trimester state, incidental 29 weeks gestation of Upper respiratory tract infection, unspecified type documented [facility] general Narrative - Reported* Type Description Date Medical History IBS [facility] Other Hospital Discharge instructions No data available for this section General Surgery [place] Progress note No data available for this section General Surgery [place] Summary Purpose Family History No Family History Records FoundNo Family History Records FoundNo Family History Records FoundNo Family History Records FoundNo Family History Records FoundNo Family History Records FoundNo Family History Records FoundNo Family History Records FoundNo Family History Records Found Advance Directives No Advanced Directives Records FoundDocuments on File Type Date Recorded 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 DATE CREATED AUTHOR AUTHOR'S ORGANIZ ATION 12/06/2020 [facility] DATE CREATED AUTHOR AUTHOR'S ORGANIZ ATION 02/16/2022 [facility] DATE CREATED AUTHOR AUTHOR'S ORGANIZ ATION 02/27/2022 [facility] DATE CREATED AUTHOR AUTHOR'S ORGANIZ ATION 11/14/2022 [facility] DATE CREATED AUTHOR AUTHOR'S ORGANIZ ATION 03/02/2023 [facility] DATE CREATED AUTHOR AUTHOR'S ORGANIZ ATION 07/05/2023 [facility] DATE CREATED AUTHOR AUTHOR'S ORGANIZ ATION 03/25/2024 [facility] DATE CREATED AUTHOR AUTHOR'S ORGANIZ ATION 06/24/2024 [facility] EPIC Reason for Visit (unrecogniz [...] Care Teams (unrecognized sec tion and content) [employer] Operator Relationship Specialty Start Date End Date Wiley OsorioDO [address] [place] [phone] PCP - General Family Medicine 11/27/21 [employer] Relationship Specialty Start Date End Date Wiley Osorio DO [address] [place] [phone] PCP - General Family Medicine 11/27/21 [employer] Operator Relationship Specialty Start Date End Date DevonLalitoWiley DO Nathanael [address] [facility] [facility] [address] [address] [place] [phone] PCP - General Family Medicine 11/27/21 [employer] Operator Relationship Specialty Start Date End Date Homar Beltran MD [address] [place] [phone] PCP - General Family Medicine 01/20/23 [employer] Operator Relationship Specialty Start Date End Date Homar Beltran MD [address] [place] [phone] PCP - General Family Medicine 01/20/23 [employer] Plant Operator Relationship Specialty Start Date End Date Homar Beltran MD [address] [facility] [place] [phone] PCP - General Family Medicine 01/20/23 [employer] Plant Operator Relationship Specialty Start Date End Date Homar Beltran MD [address] [facility] [place] [phone] PCP - General Family Medicine 01/20/23 [employer] Operator Relationship Specialty Start Date End Date Homar Beltran MD [address] [facility] [place] [address] PCP - General Family Medicine 01/20/23 [employer] Plant Operator Relationship Specialty Start Date End Date Homar Beltran MD [address] [facility] [place] [address] PCP - General Family Medicine 01/20/23 [employer] Operator Relationship Specialty Start Date End Date Homar Beltran MD [address] [facility] [place] [phone] PCP - General Family Medicine 01/20/23 [employer] Plant Operator Relationship Specialty Start Date End Date Homar Beltran MD [address] [facility] [place] [address] PCP - General Family Medicine 01/20/23 [employer] Plant Operator Relationship Specialty Start Date End Date Homar Beltran MD [address] [facility] [place] [phone] PCP - General Family Medicine 01/20/23 [employer] Plant Operator Relationship Specialty Start Date End Date Homar Beltran MD [address] [place] [phone] PCP - General Family Medicine 01/20/23 FOR [...] BE BASED ON THE PRIMARY CLINICAL RECORDS. [facility] [employer] [facility]. provides no warranty or guarantee of the accuracy or completeness of information in this document.
[2024-07-04 09:26] VITALS: BP 120/78; PULSE 94
== END 2024-07-04 09:55 | disposition home or self-care (01) ==
LOC: FBCO 00:06 → FBC 09:05
PROVIDERS: PCP Family Medicine; Visit Provider Obstetrics & Gynecology
DX: O26.893 Other specified pregnancy related conditions, third trimester (principal); R73.09 Other abnormal glucose; Z3A.34 34 weeks gestation of pregnancy
CPT/HCPCS: 36415; 59025; 83036; 85025

== ENCOUNTER 2024-07-04 12:53 | Outpatient (OUT) | payer OTHER, SELFPAY ==
[2024-07-04 13:19] LABS: Basophils Absolute Auto 0.1 10^3/uL (0.0-0.1); Basophils Percent Auto 0.5 % (0.2-2.0); Eosinophils Absolute Auto 0.2 10^3/uL (0.0-0.7); Eosinophils Percent Auto 1.2 % (0.9-7.0); Hematocrit 34.6 % (36.0-48.0); Hemoglobin 11.1 g/dL (12.0-16.0); Immature Granulocytes Abs Auto 0.22 10^3/uL (0.00-0.03); Immature Granulocytes Pct Auto 1.3 % (0.0-0.5); Lymphocytes Percent Auto 18.2 % (20.5-60.0); Mean Corpuscular HGB Conc 32.1 g/dL (29.9-35.2); Mean Corpuscular Hemoglobin 26.1 pg (26.7-34.0); Mean Corpuscular Volume 81.4 fL (81.0-99.0); Mean Platelet Volume 9.7 fL (9.5-13.5); Monocytes Absolute Auto 1.3 10^3/uL (0.3-0.8); Monocytes Percent Auto 7.7 % (1.7-12.0); Neutrophils Absolute Auto 11.6 10^3/uL (1.4-6.5); Neutrophils Percent Auto 71.1 % (43.0-75.0); Platelet Count 349 10^3/uL (150-450); Red Blood Count 4.25 10^6/uL (4.20-5.40); Red Cell Distribution Width 13.3 % (11.0-15.0); White Blood Count 16.3 10^3/uL (4.0-11.0)
[2024-07-04 13:28] LABS: Estimated Average Glucose 108 mg/dL; Glycohemoglobin A1C 5.4 % (4.5-6.2)
== END 2024-07-04 12:54 | disposition home or self-care (01) ==
LOC: LAB 12:53
PROVIDERS: PCP Family Medicine; Visit Provider Obstetrics & Gynecology
DX: R73.09 Other abnormal glucose (principal)
CPT/HCPCS: 36415; 83036; 85025

== ENCOUNTER 2024-07-07 03:47 | Outpatient (OUT) | payer OTHER, SELFPAY ==
--- OUTSIDE RECORDS SUMMARY | 2024-07-07 03:54 | XMS_ITS | CCD ---
Author Organization [facility] Care Team Providers Care Fashion Stylist Name Role Phone KIM SUTHERLAND Unavailable Unavailable WILLY CONKLIN Unavailable Unavailable HOMAR BELTRAN Unavailable Unavailable HOMAR BELTRAN Unavailable Unavailable No, Physician Primary Care Provider Unavailsuman e FINN, PHYSICIAN Primary Care Unavailable JAMES ALCAZAR Attending Unavailable Unavailable Primary Care Provider Unavailsuman e Wiley Osorio DO Primary Care Provider Bret Long Unavailable RICE RICE, WILEY WILEY M~[id number] Attending Unavailable RICE RICE, WILEY WILEY M~[id number] Primary Ca re Unavailable RICE RICE, WILEY WILEY M~[id number] Attending Unavailable RICE RICE, WILEY WILEY M~[id number] Primary Ca re Unavailable RICE RICE, WILEY WILEY M~[id number] Attending Unavailable RICE RICE, WILEY WLIEY M~[id number] Primary Ca re Unavailable RICE RICE, WILEY WILEY M~[id number] Attending Unavailable RICE RICE, WILEY WILEY M~[id number] Primary Ca re Unavailable RICE RICE, WILEY WILEY M~[id number] Referring Unavailable RICE RICE, WILEY WILEY M~[id number] Primary Ca re Unavailable ITA REYES Admitting [...] Primary Care Physician Gary MORRIS Attending Unavailable ChristelleAlexandr graham Attending Unavailab Alexandr Ventura Admitting Unavailab Homar Mcgowan Primary Care Unavailable LUIS, BERTO R Referring Unavailable HOMAR BELTRAN Primary Care Unavailable SENAIT MARTIN Attending Unavailable LUIS, BERTO R Referring Unavailable HOMAR BELTRAN Primary Care Unavailable Homar Beltran MD Primary Care Provider [phone] EZRA, LITTLE Attending Unavailable LUIS, BERTO Attending Unavailable EZRA, LITTLE Attending Unavailable LUIS, BERTO Attending Unavailable EZRA, LITTLE Attending Unavailable LUIS, BERTO Attending Unavailable EZRA, LITTLE Attending Unavailable LUIS, BERTO Attending Unavailable EZRA, LITTLE Attending Unavailable EZRA, LITTLE Attending Unavailable Allergies Allergy Classification Reported Allergen(s) Allergy Type Date of Onset Reaction(s) Facility (1 source) No Known Medication Allergies; Translations: [No Known Medication Allergies] Propensity to adverse reactions (disorder) [facility] Repository Medications Current Medications Medication Drug Class(es) Dates Sig (Normalized) Sig (Original) aspirin 81 mg delayed release oral tablet (18 sources) Platelet Aggregation Inhibitor, Nonsteroidal Anti-inflammatory Drug [...] Vit-Fe Fumarate-FA ( Plus/Iron) 27-1 MG tablet (20 sources) Start: 12-17-2023 End: 12-16-2024 take 1 [...] 02-27-2023 Episodic Other and delivery including normal (17 sources) Second trimester ; Translations: [Encounter for supervision of normal , unspecified, second trimester] Onset: 4 04-11-2024 Episodic Other screening for suspected conditions [...] of ] 04-11-2024 Episodic Residual codes; unclassified (17 sources) Gestation period, 26 weeks; Translations: [26 weeks gestation of ] Onset: 4 05-09-2024 Episodic Residual codes; unclassified (17 sources) H/O: miscarriage; Translations: [Personal history of [...] [29 weeks gestation of ] 05-24-2024 Episodic Residual codes; unclassified (5 sources) Gestation period, 34 weeks; Translations: [34 weeks gestation of ] Onset: 4 07-04-2024 Episodic Spondylosis; intervertebral disc disorders; other back [...] Test Name Value Interpretation Reference Range Facility ALL CBC WITH AUTO DIFFon BASOPHILS ABSOLUTE AUTO 0.1 [facility] Basophils/100 WBC (Bld) 0.5 % 0.2 - 2.0 % [facility] Eosinophils/100 WBC (Bld) 1.2 % 0.9 - 7.0 % [facility] Erythrocyte distribution width (RBC) [Ratio] 13.3 % 11.0 - 15.0 % [facility] Hematocrit (Bld) [Volume fraction] 34.6 % Low 36.0 - 48.0 % [facility] Hemoglobin (Bld) [Mass/Vol] 11.1 g/dL Low 12.0 - 16.0 g/dL [facility] IMMATURE GRANULOCYTES ABS AUTO 0.22 High [facility] Immature granulocytes/100 WBC (Bld) 1.3 % High 0.0 - 0.5 % [facility] Interpretation and review of laboratory results Abnormal [facility] LYMPHOCYTES ABSOLUTE AUTO 3 [facility] Lymphocytes/100 WBC (Bld) 18.2 % Low 20.5 - 60.0 % [facility] MCH (RBC) [Entitic mass] 26.1 pg Low 26.7 - 34.0 pg [facility] MCHC (RBC) [Mass/Vol] 32.1 g/dL 29.9 - 35.2 g/dL [facility] MCV (RBC) [Entitic vol] 81.4 fL 81.0 - 99.0 fL [facility] MONOCYTES ABSOLUTE AUTO 1.3 High [facility] Monocytes/100 WBC (Bld) 7.7 % 1.7 - 12.0 % [facility] NEUTROPHILS ABSOLUTE AUTO 11.6 High [facility] Neutrophils/100 WBC (Bld) 71.1 % 43.0 - 75.0 % [facility] Platelet mean volume (Bld) [Entitic vol] 9.7 fL 9.5 - 13.5 fL [facility] EO # 0.2 [facility] PLT 349 [facility] RBC 4.25 [facility] WBC 16.3 High [facility] Urinalysis macro (dipstick) panel (U)on 07-04-2024 Bilirubin, UA Negative Negative - 4(70) +++ mg/dL [facility] Blood, UA Negative Negative - 50 Angel Luis/mcL [facility] Clarity, UA Cloudy [facility] Color, UA Yellow [facility] Glucose, UA Negative Negative - 1999(110) ++++ mg/dL [facility] Interpretation and review of laboratory results Abnormal [facility] Ketones, UA Positive Negative - 160(16) ++++ mg/dL [facility] Comment on above: 40mg/dL Leukocytes, UA Few Negative - 500+++ Drew/mcL [facility] Comment on above: small Nitrite, UA Negative Negative - Positive [facility] pH, UA 7 5 - 9 [facility] Protein, UA Few Negative - 2000(20) ++++ mg/dL [facility] Comment on above: 30mg/dL Spec Grav, UA 1.025 1 - 1.03 [facility] Urobilinogen, UA 0.2 0.2 - 12 mg/dL [facility] Urinalysis macro (dipstick) panel (U)on 06-21-2024 Bilirubin, UA Negative Negative - 4(70) +++ mg/dL [facility] Blood, UA Negative Negative - 50 Angel Luis/mcL [facility] Clarity, UA Clear [facility] Color, UA Yellow [facility] Glucose, UA Negative Negative - 1999(110) ++++ mg/dL [facility] Interpretation and review of laboratory results Abnormal [facility] Ketones, UA Negative Negative - 160(16) ++++ mg/dL [facility] Leukocytes, UA Negative Negative - 500+++ Drew/mcL [facility] Nitrite, UA Negative Negative - Positive [facility] pH, UA 7 5 - 9 [facility] Protein, UA Positive Negative - 1999(20) ++++ mg/dL [facility] Comment on above: 30 Spec Grav, UA 1.02 1 - 1.03 [facility] Urobilinogen, UA 0.2 0.2 - 12 mg/dL [facility] Urinalysis macro (dipstick) panel (U)on 06-07-2024 Bilirubin, UA Negative Negative - 4(70) +++ mg/dL [facility] Blood, UA Negative Negative - 50 Angel Luis/mcL [facility] Clarity, UA Clear [facility] Color, UA Yellow [facility] Glucose, UA Negative Negative - 1999(110) ++++ mg/dL [facility] Interpretation and review of laboratory results Normal [facility] Ketones, UA Negative Negative - 160(16) ++++ mg/dL [facility] Leukocytes, UA Negative Negative - 500+++ Drew/mcL [facility] Nitrite, UA Negative Negative - Positive [facility] pH, UA 7 5 - 9 [facility] Protein, UA Negative Negative - 1999(20) ++++ mg/dL [facility] Spec Grav, UA 1.02 1 - 1.03 [facility] Urobilinogen, UA 0.2 0.2 - 12 mg/dL [facility] Urinalysis macro (dipstick) panel (U)on 05-09-2024 Bilirubin, UA Positive Negative - 4(70) +++ mg/dL [facility] Comment on above: small Blood, UA Negative Negative - 50 Angel Luis/mcL [facility] Clarity, UA Clear [facility] Color, UA Miryam [facility] Glucose, UA Negative Negative - 1999(110) ++++ mg/dL [facility] Interpretation and review of laboratory results Abnormal [facility] Ketones, UA Positive Negative - 160(16) ++++ mg/dL [facility] Comment on above: trace Leukocytes, UA Negative Negative - 500+++ Drew/mcL [facility] Nitrite, UA Negative Negative - Positive [facility] pH, UA 6 5 - 9 [facility] Protein, UA Positive Negative - 1999(20) ++++ mg/dL [facility] Comment on above: 30 mg Spec Grav, UA 1.03 1 - 1.03 [facility] Urobilinogen, UA 0.2 0.2 - 12 mg/dL [facility] Urinalysis macro (dipstick) panel (U)on 04-11-2024 Bilirubin, UA Negative Negative - 4(70) +++ mg/dL [facility] Blood, UA Negative Negative - 50 Angel Luis/mcL [facility] Clarity, UA Clear [facility] Color, UA Yellow [facility] Glucose, UA Negative Negative - 1999(110) ++++ mg/dL [facility] Interpretation and review of laboratory results Normal [facility] Ketones, UA Negative Negative - 160(16) ++++ mg/dL [facility] Leukocytes, UA Negative Negative - 500+++ Drew/mcL [facility] Nitrite, UA Negative Negative - Positive [facility] pH, UA 6.5 5 - 9 [facility] Protein, UA Negative Negative - 1999(20) ++++ mg/dL [facility] Spec Grav, UA 1.020 1 - 1.03 [facility] Urobilinogen, UA 0.2 0.2 - 12 mg/dL [facility] Urinalysis macro (dipstick) panel (U)on 03-14-2024 Bilirubin, UA Negative Negative - 4(70) +++ mg/dL [facility] Blood, UA Negative Negative - 50 Angel Luis/mcL [facility] Clarity, UA Clear [facility] Color, UA Yellow [facility] Glucose, UA Negative Negative - 1999(110) ++++ mg/dL [facility] Interpretation and review of laboratory results Normal [facility] Ketones, UA Negative Negative - 160(16) ++++ mg/dL [facility] Leukocytes, UA Negative Negative - 500+++ Drew/mcL [facility] Nitrite, UA Negative Negative - Positive [facility] pH, UA 7.0 5 - 9 [facility] Protein, UA Negative Negative - 1999(20) ++++ mg/dL [facility] Spec Grav, UA 1.020 1 - 1.03 [facility] Urobilinogen, UA 0.2 0.2 - 12 mg/dL [facility] Facesheeton 03-02-2023 Facesheet [id number] CD:127 Normal [facility] Ambulatory Visit Summaryon 0 02-27-2023 Ambulatory Visit Summary LESLIE FORD :1995 Visit Date:02/27/2023 Ambulatory Visit Instructions Your Care Team Attending Physician - ALEXANDRA RAGNEL, Gary Howell Primary Care Physician - CLAUDE [...] pre-eclampsia Insomnia Migraines Overweight Normal [facility] RAD - Ultrasound Reporton RAD - Ultrasound Report [id number] D:127 Normal [facility] Physician Referralon 023 Physician Referral [id number] D:127 Normal [facility] INSULINon 11-08-2022 Insulin 7.7 uIU/mL Normal 2.6-24.9 [facility] Comment on above: Performed By: #### V ITAD, IRON #### [facility] [address] [address] [address] Chucho Jesus CBC AUTO DIFFon 11-07-2022 BASO # 0.0 103/ul Normal 0.0-0.1 [facility] Comment on above: Performed By: #### V ITAD, IRON #### [facility] [address] [place] [address] Dr. Chucho Jesus Basophils/100 WBC (Bld) 0.6 % Normal 0.2-2.0 [facility] Comment on above: Performed By: #### V ITAD, IRON #### [facility] [address] [place] [address] Dr. Chucho Jesus EO # 0.1 103/ul Normal 0.0-0.7 [facility] Comment on above: Performed By: #### V ITAD, IRON #### [facility] [address] [place] [address] Dr. Chucho Jesus Eosinophils/100 WBC (Bld) 1.4 % Normal 0.9-7.0 [facility] Comment on above: Performed By: #### V ITAD, IRON #### [facility] [address] [place] [address] Dr. Chucho Jesus Erythrocyte distribution width (RBC) [Ratio] 13.9 % Normal 11.0-15.0 [facility] Comment on above: Performed By: #### V ITAD, IRON #### [facility] [address] [place] [address] Dr. Chucho Jesus Hematocrit (Bld) [Volume fraction] 45.6 % Normal 36.0-48.0 [facility] Comment on above: Performed By: #### V ITAD, IRON #### [facility] [address] [place] [address] Dr. Chucho Jesus Hemoglobin (Bld) [Mass/Vol] 15.1 g/dL Normal 12.0-16.0 [facility] Comment on above: Performed By: #### V ITAD, IRON #### [facility] [address] [place] [address] Dr. Chucho Jesus IG # 0.01 10e3/ul Normal 0.00-0.03 [facility] Comment on above: Performed By: #### V ITAD, IRON #### [facility] [address] [place] [address] Dr. Chucho Jesus IG % 0.1 % Normal 0.0-0.5 [facility] Comment on above: Performed By: #### V ITAD, IRON #### [facility] [address] [place] [address] Dr. Chucho Jesus LYMPH # 1.9 103/ul Normal 1.2-3.8 [facility] Comment on above: Performed By: #### V ITAD, IRON #### [facility] [address] [place] [address] Dr. Chucho Jesus Lymphocytes/100 WBC (Bld) 26.3 % Normal 20.5-60.0 [facility] Comment on above: Performed By: #### V ITAD, IRON #### [facility] [address] [place] [address] Dr. Chucho Jesus MANUAL DIFF REQ NO Normal [facility] Comment on above: Performed By: #### V ITAD, IRON #### [facility] [address] [place] [address] Dr. Chucho Jesus MCH (RBC) [Entitic mass] 27.9 pg Normal 26.7-34.0 [facility] Comment on above: Performed By: #### V ITAD, IRON #### [facility] [address] [place] [address] Dr. Chucho Jesus MCHC (RBC) [Mass/Vol] 33.1 g/dL Normal 29.9-35.2 [facility] Comment on above: Performed By: #### V ITAD, IRON #### [facility] [address] [place] [address] Dr. Chucho Jesus MCV (RBC) [Entitic vol] 84.1 fL Normal 81.0-99.0 [facility] Comment on above: Performed By: #### V ITAD, IRON #### [facility] [address] [place] [address] Dr. Chucho Jesus MONO # 0.5 103/ul Normal 0.3-0.8 [facility] Comment on above: Performed By: #### V ITAD, IRON #### [facility] [address] [address] [address] Chucho Jesus Monocytes/100 WBC (Bld) 7.3 % Normal 1.7-12.0 [facility] Comment on above: Performed By: #### V ITAD, IRON #### [facility] [address] [place] [address] Dr. Chucho Jesus NEUT # 4.6 103/ul Normal 1.4-6.5 [facility] Comment on above: Performed By: #### V ITAD, IRON #### [facility] [address] [place] [address] Dr. Chucho Jesus Neutrophils/100 WBC (Bld) 64.3 % Normal 43.0-75.0 [facility] Comment on above: Performed By: #### V ITAD, IRON #### [facility] [address] [place] [address] Dr. Chucho Jesus Platelet mean volume (Bld) [Entitic vol] 10.9 fL Normal 9.5-13.5 [facility] Comment on above: Performed By: #### V ITAD, IRON #### [facility] [address] [place] [address] Dr. Chucho Jesus PLT 226 103/ul Normal 150-450 [facility] Comment on above: Performed By: #### V ITAD, IRON #### [facility] [address] [place] [address] Dr. Chucho Jesus RBC 5.42 106/ul Critically high 4.20-5.40 [facility] Comment on above: Performed By: #### V ITAD, IRON #### [facility] [address] [place] [address] Dr. Chucho Jesus WBC 7.2 103/ul Normal 4.0-11.0 [facility] Comment on above: Performed By: #### V ITAD, IRON #### [facility] [address] [place] [address] Dr. Chucho Jesus FREE THYROXINE INDEX T7on FTI 3.29 Normal 1.30-4.50 [facility] Comment on above: Performed By: #### V ITAD, IRON #### [facility] [address] [address] [address] Chucho Jesus T3U 35.0 % Normal 30.0-39.0 [facility] Comment on above: Performed By: #### V ITAD, IRON #### [facility] [address] [address] [address] Chucho Jesus T4 [Mass/Vol] 9.40 ug/dL Normal 4.80-13.90 [facility] Comment on above: Performed By: #### V ITAD, IRON #### [facility] [address] [address] [address] Chucho Jesus GLYCOHEMOGLOBIN A1Con 2022 ADA RECOMMENDATION SEE BELOW Normal [facility] Comment on above: Result Comment: ADA RECOMMENDED LIMIT 4.0 - 6.0 ADA THERAPEUTIC TARGET < 7.0 ACTION SUGGESTED > 7.0 Performed By: #### A 1C #### [facility] [address] [place] [address] Dr. Chucho Jesus Glucose [Mass/Vol] 94 mg/dL Normal [facility] Comment on above: Performed By: #### A 1C #### [facility] [address] [address] [address] Chucho Jesus HbA1c (Bld) [Mass fraction] 4.9 % Normal 4.5-6.2 [facility] Comment on above: Performed By: #### A 1C #### [facility] [address] [place] [address] Dr. Chucho Jesus IRONon 11-07-2022 Iron [Mass/Vol] 81.0 ug/dL Normal 50.0-170.0 [facility] Comment on above: Performed By: #### V ITAD, IRON #### [facility] [address] [place] [address] Dr. Chucho Jesus LIPID PROFILEon 11-07-2022 CHOL-HDL RATIO NORM SEE BELOW Normal [facility] Comment on above: Result Comment: 3.3 - 4.4 LOW RISK 4.4 - 7.1 AVERAGE RISK 7.1 - 11.0 MODERATE RISK >11.0 HIGH RISK Performed By: #### V ITAD, IRON #### [facility] [address] [address] [address] Chucho Jesus Cholesterol [Mass/Vol] 126 mg/dL Normal <=200 [facility] Comment on above: Performed By: #### V ITAD, IRON #### [facility] [address] [address] [address] Chucho Jesus Cholesterol in HDL [Mass/Vol] 38 mg/dL Critically low 40-60 [facility] Comment on above: Performed By: #### V ITAD, IRON #### [facility] [address] [address] [address] Chucho Jesus Cholesterol in LDL [Mass/Vol] 79.4 mg/dL Normal [facility] Comment on above: Performed By: #### V ITAD, IRON #### [facility] [address] [place] [address] Dr. Chucho Jesus Cholesterol.total/C holesterol in HDL [Mass ratio] 3.3 {ratio} Normal [facility] Comment on above: Performed By: #### V ITAD, IRON #### [facility] [address] [address] [address] Chucho Jesus HDL NORMAL > or = 60 mg/dl - LO W CARDIOVASCULAR RISK <40 mg/dl - HIGH CARDIOVASCULAR RISK Normal [facility] Comment on above: Performed By: #### V ITAD, IRON #### [facility] [address] [address] [address] Chucho Jesus LDL CALC NORMAL SEE BELOW Normal [facility] Comment on above: Result Comment: <100 mg/dl OPTIMAL 100 - 129 mg/dl NEAR OR ABOVE OPTIMAL 130 - 159 mg/dl BORDERLINE HIGH 160 - 189 mg/dl HIGH >190 mg/dl VERY HIGH Performed By: #### V ITAD, IRON #### [facility] [address] [address] [address] Chucho Jesus Triglyceride [Mass/Vol] 43 mg/dL Normal <=150 [facility] Comment on above: Performed By: #### V ITAD, IRON #### [facility] [address] [address] [address] Chucho Jesus VLDL CALC 8.6 mg/dL Normal [facility] Comment on above: Performed By: #### V ITAD, IRON #### [facility] [address] [place] [address] Dr. Chucho Jesus PROF 14(COMP METB)on 023 Albumin [Mass/Vol] 4.2 g/dL Normal 3.4-5.0 [facility] Comment on above: Performed By: #### V ITAD, IRON #### [facility] [address] [place] [address] Dr. Chucho Jesus Albumin/Globulin [Mass ratio] 1.1 {ratio} Normal [facility] Comment on above: Performed By: #### V ITSONIYA, IRON #### [facility] [address] [place] [address] Dr. Chucho Jesus ALP [Catalytic activity/Vol] 93 U/L Normal 46-116 [facility] Comment on above: Performed By: #### V ITAD, IRON #### [facility] [address] [place] [address] Dr. Chucho Jesus ALT [Catalytic activity/Vol] 16 U/L Normal 14-59 [facility] Comment on above: Performed By: #### V ITAD, IRON #### [facility] [address] [place] [address] Dr. Chucho Jesus Anion gap [Moles/Vol] 14.3 mmol/L Normal [facility] Comment on above: Performed By: #### V ITAD, IRON #### [facility] [address] [place] [address] Dr. Chucho Jesus AST [Catalytic activity/Vol] 16 U/L Normal 15-37 [facility] Comment on above: Performed By: #### V ITAD, IRON #### [facility] [address] [place] [address] Dr. Chucho Jesus Bilirubin [Mass/Vol] 1.0 mg/dL Normal 0.2-1.0 [facility] Comment on above: Performed By: #### V ITAD, IRON #### [facility] [address] [address] [address] Chucho Jesus Calcium [Mass/Vol] 9.4 mg/dL Normal 8.5-10.1 [facility] Comment on above: Performed By: #### V ITAD, IRON #### [facility] [address] [place] [address] Dr. Chucho Jesus Chloride [Moles/Vol] 103 mmol/L Normal 98-107 [facility] Comment on above: Performed By: #### V ITAD, IRON #### [facility] [address] [place] [address] Dr. Chucho Jesus CO2 [Moles/Vol] 24.9 mmol/L Normal 21.0-32.0 [facility] Comment on above: Performed By: #### V ITAD, IRON #### [facility] [address] [place] [address] Dr. Chucho Jesus Creatinine [Mass/Vol] 0.68 mg/dL Normal 0.55-1.02 [facility] Comment on above: Performed By: #### V ITAD, IRON #### [facility] [address] [place] [address] Dr. Chucho Jesus EGFR-AF GIBRALTARIAN >60 Normal >=60 [facility] Comment on above: Performed By: #### V ITAD, IRON #### [facility] [address] [place] [address] Dr. Chucho Jesus EGFR-NON AF GIBRALTARIAN >60 Normal >=60 [facility] Comment on above: Performed By: #### V ITAD, IRON #### [facility] [address] [place] [address] Dr. Chucho Jesus Globulin (S) [Mass/Vol] 3.9 g/dL Normal [facility] Comment on above: Performed By: #### V ITAD, IRON #### [facility] [address] [place] [address] Dr. Chucho Jesus Glucose [Mass/Vol] 89 mg/dL Normal 74-106 [facility] Comment on above: Performed By: #### V ITAD, IRON #### [facility] [address] [place] [address] Dr. Chucho Jesus Potassium [Moles/Vol] 4.2 mmol/L Normal 3.5-5.1 [facility] Comment on above: Performed By: #### V ITAD, IRON #### [facility] [address] [place] [address] Dr. Chucho Jesus Protein [Mass/Vol] 8.1 g/dL Normal 6.4-8.2 [facility] Comment on above: Performed By: #### V ITAD, IRON #### [facility] [address] [place] [address] Dr. Chucho Jesus Sodium [Moles/Vol] 138 mmol/L Normal 136-145 [facility] Comment on above: Performed By: #### V ITAD, IRON #### [facility] [address] [place] [address] Dr. Chucho Jesus Urea nitrogen [Mass/Vol] 9.0 mg/dL Normal 7.0-18.0 [facility] Comment on above: Performed By: #### V ITAD, IRON #### [facility] [address] [place] [address] Dr. Chucho Jesus Urea nitrogen/Creatinine [Mass ratio] 13.2 mg/mg Normal [facility] Comment on above: Performed By: #### V ITAD, IRON #### [facility] [address] [place] [address] Dr. Chucho Jesus TSHon 11-07-2022 TSH 1.668 uIU/mL Normal 0.358-3.740 [facility] Comment on above: Performed By: #### V ITAD, IRON #### [facility] [address] [place] [address] Dr. Chucho Jesus Covid-19 PCR ([facility])on SARS-CoV-2 (COVID-19) RNA DMITRY+probe Ql (Unsp spec) [...] for this test is supported by the [place] of Health and Human Service's declaration that [...] Performed By: #### V ITAD, IVELISSE #### [facility] [address] [place] [address] Dr. Chucho Jesus Covid-19 PCR ([facility])on SARS-CoV-2 (COVID-19) RNA DMITRY+probe Ql (Unsp spec) Not detected Normal NOT DETECTED [facility] Comment on above: Result Comment: When [...] for this test is supported by the [employer] Operator of Health and Human Service's declaration [...] #### [facility] [address] [place] [address] Dr. Chucho Jesus INFLUENZA A AND B AGon 08-11 INFLUANEGH SEE BELOW Normal The [facility] Comment on above: Result Comment: Nega tive for Flu A protein angiten. Infection due to Flu A cannot be ruled out. Flu A angiten in the sample may be below the detection limit of the test. Performed By: #### I NFLUAB #### [facility] [address] [place] [address] Dr. Chucho Jesus INFLUBNEGH SEE BELOW Normal [facility] Comment on above: Result Comment: Nega tive for Flu B protein antigen. Infection due to Flu B cannot be ruled out. Flu B antigen in the sample may be below the detection limit of the test. Performed By: #### I NFLUAB #### [facility] [address] [place] [address] Dr. Chucho Jesus INFLUENZA A AG Negative Normal NEGATIVE SEE COMMENT [facility] Comment on above: Performed By: #### I NFLUAB #### [facility] [address] [place] [address] Dr. Chucho Jesus INFLUENZA B AG Negative Normal NEGATIVE SEE COMMENT [facility] Comment on above: Performed By: #### I NFLUAB #### [facility] [address] [place] [address] Dr. Chucho Jesus Covid-19 PCR ([facility])on 05-07 SARS-CoV-2 (COVID-19) RNA DMITRY+probe [...] for this test is supported by the [employer] Operator of Health and Human Service's declaration [...] #### [facility] [address] [place] [address] Dr. Chucho Jesus INFLUENZA A AND B AGon 05-[facility] Normal [facility] Comment on above: Result Comment: Nega tive for Flu A protein angiten. Infection due to Flu A cannot be ruled out. Flu A angiten in the sample may be below the detection limit of the test. Performed By: #### V ITAD, IRON #### [facility] [address] [place] [address] Dr. Chucho Jesus INFLUBNEG SEE BELOW Normal [facility] Comment on above: Result Comment: Nega tive for Flu B protein antigen. Infection due to Flu B cannot be ruled out. Flu B antigen in the sample may be below the detection limit of the test. Performed By: #### V ITAD, IRON #### [facility] [address] [place] [address] Dr. Chucho Jesus INFLUENZA A AG Negative Normal NEGATIVE SEE COMMENT [facility] Comment on above: Performed By: #### V ITAD, IRON #### [facility] [address] [place] [address] Dr. Chucho Jesus INFLUENZA B AG Negative Normal NEGATIVE SEE COMMENT [facility] Comment on above: Performed By: #### V ITAD, IRON #### [facility] [address] [place] [address] Dr. Chucho Jesus INTERNAL CONTROLS Within Normal Limits Normal Wi thin Normal Limits [facility] Comment on above: Performed By: #### V ITAD, IRON #### [facility] [address] [place] [address] Dr. Chucho Jesus ER URINE PROFILEon 2 Bilirubin Ql (U) Negative Normal NEGATIVE [facility] Comment on above: Performed By: #### V ITAD, IRON #### [facility] [address] [place] [address] Dr. Chucho Jesus Clarity (U) CLEAR Normal CLEAR [facility] Comment on above: Performed By: #### V ITAD, IRON #### [facility] [address] [address] [address] Chucho Jesus Color (U) YELLOW Normal YELLOW [facility] Comment on above: Performed By: #### V ITAD, IRON #### [facility] [address] [place] [address] Dr. Chucho BAHENA A micrscopic examination will be performed if indicated. Normal [facility] Comment on above: Performed By: #### V ITAD, IRON #### [facility] [address] [place] [address] Dr. Chucho Jesus Glucose Ql (U) Negative Normal NEGATIVE The [facility] Comment on above: Performed By: #### V ITAD, IRON #### [facility] [address] [place] [address] Dr. Chucho Jesus Hemoglobin Ql (U) Negative Normal NEGATIVE [facility] Comment on above: Performed By: #### V ITAD, IRON #### [facility] [address] [place] [address] Dr. Chucho Jesus Ketones Ql (U) >=80 Abnormal NEGATIVE [facility] Comment on above: Performed By: #### V ITAD, IRON #### [facility] [address] [place] [address] Dr. Chucho Jesus LEUKOCYTES Negative Normal NEGATIVE [facility] Comment on above: Performed By: #### V ITAD, IRON #### [facility] [address] [place] [address] Dr. Chucho Jseus Nitrite Ql (U) Negative Normal NEGATIVE [facility] Comment on above: Performed By: #### V ITAD, IRON #### [facility] [address] [address] [address] Chucho Jesus pH (U) 6.0 [pH] Normal 5-9 [facility] Comment on above: Performed By: #### V ITAD, IRON #### [facility] [address] [place] [address] Dr. Chucho Jesus Protein (U) [Mass/Vol] 100 mg/dL Abnormal NEGATIVE/ TRACE [facility] Comment on above: Performed By: #### V ITAD, IRON #### [facility] [address] [address] [address] Chucho Jesus SPEC GRAVITY >=1.030 Abnormal 1.005-<=1.025 [facility] Comment on above: Performed By: #### V ITAD, IRON #### [facility] [address] [place] [address] Dr. Chucho Jesus UR MICRO IND INDICATED Normal [facility] Comment on above: Performed By: #### V ITAD, IRON #### [facility] [address] [address] [address] Chucho Jesus Urobilinogen Qn (U) 0.2 {Chelsea'U}/dL Normal 0.2 - 1. 0 [facility] Comment on above: Performed By: #### V ITAD, IRON #### [facility] [address] [place] [address] Dr. Chucho Jesus URon 05-22-2022 , QUAL Negative Normal NEGATIVE [facility] Comment on above: Performed By: #### V ITAD, IRON #### [facility] [address] [place] [address] Dr. Chucho Jesus URINE MICROSCOPIC ONLYon BACTERIA NONE SEEN Normal NONE SEEN [facility] Comment on above: Performed By: #### V ITAD, IRON #### [facility] [address] [place] [address] Dr. Chucho Jesus Bacteria identified Cx Nom (U) NOT INDICATED Normal [facility] Comment on above: Performed By: #### V ITAD, IRON #### [facility] [address] [address] [address] Chucho Jesus CAST NONE SEEN Normal NONE SEEN [facility] Comment on above: Performed By: #### V ITAD, IRON #### [facility] [address] [place] [address] Dr. Chucho Jesus Crystals LM Nom (Urine sed) NONE SEEN Normal NONE SEEN [facility] Comment on above: Performed By: #### V ITAD, IRON #### [facility] [address] [address] [address] Chucho Jesus Epithelial cells LM Ql (Urine sed) FEW Abnormal NONE SEEN /RARE [facility] Comment on above: Performed By: #### V ITAD, IRON #### [facility] [address] [address] [address] Chucho Jesus MUCOUS MODERATE Abnormal NONE SEEN [facility] Comment on above: Performed By: #### V ITAD, IRON #### [facility] [address] [address] [address] Chucho Jesus RBC NONE SEEN Abnormal 0-2 [facility] Comment on above: Performed By: #### V ITAD, IRON #### [facility] [address] [address] [address] Chucho Jseus WBC NONE SEEN Normal NONE SEEN [facility] Comment on above: Performed By: #### V ITAD, IRON #### [facility] [address] [place] [address] Dr. Chucho Jesus XR LSPINE 2_3 VIEWSon [...] SHAINA CAMPOS Date: 2022-05-22 12:28 Normal [facility] INSULINon 04-25-2022 Insulin 10.4 uIU/mL Normal 2.6-24.9 [facility] Comment on above: Performed By: #### V ITAD, IRON #### [facility] [address] [address] [address] Chucho Jesus CBC AUTO DIFFon 04-24-2022 BASO # 0.0 103/ul Normal 0.0-0.1 [facility] Comment on above: Performed By: #### C BC #### [facility] [address] [address] [address] Chucho Jesus Basophils/100 WBC (Bld) 0.6 % Normal 0.2-2.0 [facility] Comment on above: Performed By: #### C BC #### [facility] [address] [address] [address] Chucho Jesus EO # 0.1 103/ul Normal 0.0-0.7 [facility] Comment on above: Performed By: #### C BC #### [facility] [address] [place] [address] Dr. Chucho Jesus Eosinophils/100 WBC (Bld) 1.8 % Normal 0.9-7.0 [facility] Comment on above: Performed By: #### C BC #### [facility] [address] [place] [address] Dr. Chucho Jesus Erythrocyte distribution width (RBC) [Ratio] 12.9 % Normal 11.0-15.0 [facility] Comment on above: Performed By: #### C BC #### [facility] [address] [place] [address] Dr. Chucho Jesus Hematocrit (Bld) [Volume fraction] 45.6 % Normal 36.0-48.0 [facility] Comment on above: Performed By: #### C BC #### [facility] [address] [place] [address] Dr. Chucho Jesus Hemoglobin (Bld) [Mass/Vol] 14.7 g/dL Normal 12.0-16.0 [facility] Comment on above: Performed By: #### C BC #### [facility] [address] [place] [address] Dr. Chucho Jesus IG # 0.02 10e3/ul Normal 0.00-0.03 [facility] Comment on above: Performed By: #### C BC #### [facility] [address] [place] [address] Dr. Chucho Jesus IG % 0.3 % Normal 0.0-0.5 [facility] Comment on above: Performed By: #### C BC #### [facility] [address] [place] [address] Dr. Chucho Jesus LYMPH # 1.6 103/ul Normal 1.2-3.8 [facility] Comment on above: Performed By: #### C BC #### [facility] [address] [place] [address] Dr. Chucho Jesus Lymphocytes/100 WBC (Bld) 24.5 % Normal 20.5-60.0 [facility] Comment on above: Performed By: #### C BC #### [facility] [address] [place] [address] Dr. Chucho Jesus MANUAL DIFF REQ NO Normal [facility] Comment on above: Performed By: #### C BC #### [facility] [address] [place] [address] Dr. Chucho Jesus MCH (RBC) [Entitic mass] 28.4 pg Normal 26.7-34.0 [facility] Comment on above: Performed By: #### C BC #### [facility] [address] [place] [address] Dr. Chucho Jesus MCHC (RBC) [Mass/Vol] 32.2 g/dL Normal 29.9-35.2 [facility] Comment on above: Performed By: #### C BC #### [facility] [address] [place] [address] Dr. Chucho Jesus MCV (RBC) [Entitic vol] 88.2 fL Normal 81.0-99.0 [facility] Comment on above: Performed By: #### C BC #### [facility] [address] [place] [address] Dr. Chucho Jesus MONO # 0.5 103/ul Normal 0.3-0.8 [facility] Comment on above: Performed By: #### C BC #### [facility] [address] [place] [address] Dr. Chucho Jesus Monocytes/100 WBC (Bld) 7.4 % Normal 1.7-12.0 [facility] Comment on above: Performed By: #### C BC #### [facility] [address] [place] [address] Dr. Chucho Jesus NEUT # 4.4 103/ul Normal 1.4-6.5 [facility] Comment on above: Performed By: #### C BC #### [facility] [address] [place] [address] Dr. Chucho Jesus Neutrophils/100 WBC (Bld) 65.4 % Normal 43.0-75.0 [facility] Comment on above: Performed By: #### C BC #### [facility] [address] [place] [address] Dr. Chucho Jesus Platelet mean volume (Bld) [Entitic vol] 9.9 fL Normal 9.5-13.5 [facility] Comment on above: Performed By: #### C BC #### [facility] [address] [place] [address] Dr. Chucho Jesus PLT 225 103/ul Normal 150-450 [facility] Comment on above: Performed By: #### C BC #### [facility] [address] [place] [address] Dr. Chucho Jesus RBC 5.17 106/ul Normal 4.20-5.40 [facility] Comment on above: Performed By: #### C BC #### [facility] [address] [place] [address] Dr. Chucho eJsus WBC 6.7 103/ul Normal 4.0-11.0 [facility] Comment on above: Performed By: #### C BC #### [facility] [address] [place] [address] Dr. Chucho Jesus FREE THYROXINE INDEX T7on FTI 3.29 Normal 1.30-4.50 [facility] Comment on above: Performed By: #### T 7, TSH, LIPID, CMP #### [facility] [address] [place] [address] Dr. Chucho Jesus T3U 27.0 % Critically low 30.0-39.0 [facility] Comment on above: Performed By: #### T 7, TSH, LIPID, CMP #### [facility] [address] [address] [address] Chucho Jesus T4 [Mass/Vol] 12.20 ug/dL Normal 4.80-13.90 [facility] Comment on above: Performed By: #### T 7, TSH, LIPID, CMP #### [facility] [address] [address] [address] Chucho Jesus GLYCOHEMOGLOBIN A1Con 2021 ADA RECOMMENDATION SEE BELOW Normal [facility] Comment on above: Result Comment: ADA RECOMMENDED LIMIT 4.0 - 6.0 ADA THERAPEUTIC TARGET < 7.0 ACTION SUGGESTED > 7.0 Performed By: #### A 1C #### [facility] [address] [place] [address] Dr. Chucho Jesus Glucose [Mass/Vol] 105 mg/dL Normal [facility] Comment on above: Performed By: #### A 1C #### [facility] [address] [place] [address] Dr. Chucho Jesus HbA1c (Bld) [Mass fraction] 5.3 % Normal 4.5-6.2 [facility] Comment on above: Performed By: #### A 1C #### [facility] [address] [place] [address] Dr. Chucho Jesus IRONon 04-24-2022 Iron [Mass/Vol] 48.0 ug/dL Critically low 50.0-170.0 [facility] Comment on above: Performed By: #### V ITAD, IRON #### [facility] [address] [place] [address] Dr. Chucho Jesus LIPID PROFILEon 04-24-2022 CHOL-HDL RATIO NORM SEE BELOW Normal [facility] Comment on above: Result Comment: 3.3 - 4.4 LOW RISK 4.4 - 7.1 AVERAGE RISK 7.1 - 11.0 MODERATE RISK >11.0 HIGH RISK Performed By: #### V ITAD, IRON #### [facility] [address] [place] [address] Dr. Chucho Jesus Cholesterol [Mass/Vol] 184 mg/dL Normal <=200 [facility] Comment on above: Performed By: #### V ITAD, IRON #### [facility] [address] [address] [address] Chucho Jesus Cholesterol in HDL [Mass/Vol] 55 mg/dL Normal 40-60 [facility] Comment on above: Performed By: #### V ITAD, IRON #### [facility] [address] [address] [address] Chucho Jesus Cholesterol in LDL [Mass/Vol] 116.6 mg/dL Normal [facility] Comment on above: Performed By: #### V ITAD, IRON #### [facility] [address] [address] [address] Chucho Jesus Cholesterol.total/C holesterol in HDL [Mass ratio] 3.3 {ratio} Normal [facility] Comment on above: Performed By: #### V ITAD, IRON #### [facility] [address] [place] [address] Dr. Chucho Jesus HDL NORMAL > or = 60 mg/dl - LO W CARDIOVASCULAR RISK <40 mg/dl - HIGH CARDIOVASCULAR RISK Normal [facility] Comment on above: Performed By: #### V ITAD, IRON #### [facility] [address] [address] [address] Chucho Jesus LDL CALC NORMAL SEE BELOW Normal [facility] Comment on above: Result Comment: <100 mg/dl OPTIMAL 100 - 129 mg/dl NEAR OR ABOVE OPTIMAL 130 - 159 mg/dl BORDERLINE HIGH 160 - 189 mg/dl HIGH >190 mg/dl VERY HIGH Performed By: #### V ITAD, IRON #### [facility] [address] [address] [address] Chucho Jesus Triglyceride [Mass/Vol] 62 mg/dL Normal <=150 [facility] Comment on above: Performed By: #### V ITAD, IRON #### [facility] [address] [address] [address] Chucho Jesus VLDL CALC 12.4 mg/dL Normal [facility] Comment on above: Performed By: #### V ITAD, IRON #### [facility] [address] [address] [address] Chucho Jesus PROF 14(COMP METB)on 022 Albumin [Mass/Vol] 3.7 g/dL Normal 3.4-5.0 [facility] Comment on above: Performed By: #### T 7, TSH, LIPID, CMP #### [facility] [address] [address] [address] Chucho Jesus Albumin/Globulin [Mass ratio] 0.9 {ratio} Normal [facility] Comment on above: Performed By: #### T 7, TSH, LIPID, CMP #### [facility] [address] [place] [address] Dr. Chucho Jesus ALP [Catalytic activity/Vol] 74 U/L Normal 46-116 [facility] Comment on above: Performed By: #### T 7, TSH, LIPID, CMP #### [facility] [address] [place] [address] Dr. Chucho Jesus ALT [Catalytic activity/Vol] 16 U/L Normal 14-59 [facility] Comment on above: Performed By: #### T 7, TSH, LIPID, CMP #### [facility] [address] [address] [address] Chucho Jesus Anion gap [Moles/Vol] 12.3 mmol/L Normal [facility] Comment on above: Performed By: #### T 7, TSH, LIPID, CMP #### [facility] [address] [place] [address] Dr. Chucho Jesus AST [Catalytic activity/Vol] 13 U/L Critically low 15-37 [facility] Comment on above: Performed By: #### T 7, TSH, LIPID, CMP #### [facility] [address] [address] [address] Chucho Jesus Bilirubin [Mass/Vol] 0.4 mg/dL Normal 0.2-1.0 [facility] Comment on above: Performed By: #### T 7, TSH, LIPID, CMP #### [facility] [address] [place] [address] Dr. Chucho Jesus Calcium [Mass/Vol] 8.9 mg/dL Normal 8.5-10.1 [facility] Comment on above: Performed By: #### T 7, TSH, LIPID, CMP #### [facility] [address] [address] [address] Chucho Jesus Chloride [Moles/Vol] 105 mmol/L Normal 98-107 [facility] Comment on above: Performed By: #### T 7, TSH, LIPID, CMP #### [facility] [address] [place] [address] Dr. Chucho Jesus CO2 [Moles/Vol] 26.6 mmol/L Normal 21.0-32.0 [facility] Comment on above: Performed By: #### T 7, TSH, LIPID, CMP #### [facility] [address] [place] [address] Dr. Chucho Jesus Creatinine [Mass/Vol] 0.68 mg/dL Normal 0.55-1.02 [facility] Comment on above: Performed By: #### T 7, TSH, LIPID, CMP #### [facility] [address] [place] [address] Dr. Chucho Jesus EGFR-AF GIBRALTARIAN >60 Normal >=60 [facility] Comment on above: Performed By: #### T 7, TSH, LIPID, CMP #### [facility] [address] [place] [address] Dr. Chucho Jesus EGFR-NON AF GIBRALTARIAN >60 Normal >=60 [facility] Comment on above: Performed By: #### T 7, TSH, LIPID, CMP #### [facility] [address] [place] [address] Dr. Chucho Jesus Globulin (S) [Mass/Vol] 4.3 g/dL Normal [facility] Comment on above: Performed By: #### T 7, TSH, LIPID, CMP #### [facility] [address] [place] [address] Dr. Chucho Jesus Glucose [Mass/Vol] 87 mg/dL Normal 74-106 [facility] Comment on above: Performed By: #### T 7, TSH, LIPID, CMP #### [facility] [address] [place] [address] Dr. Chucho Jesus Potassium [Moles/Vol] 3.9 mmol/L Normal 3.5-5.1 [facility] Comment on above: Performed By: #### T 7, TSH, LIPID, CMP #### [facility] [address] [address] [address] Chucho Jesus Protein [Mass/Vol] 8.0 g/dL Normal 6.4-8.2 [facility] Comment on above: Performed By: #### T 7, TSH, LIPID, CMP #### [facility] [address] [place] [address] Dr. Chucho Jesus Sodium [Moles/Vol] 140 mmol/L Normal 136-145 [facility] Comment on above: Performed By: #### T 7, TSH, LIPID, CMP #### [facility] [address] [place] [address] Dr. Chucho Jesus Urea nitrogen [Mass/Vol] 9.0 mg/dL Normal 7.0-18.0 [facility] Comment on above: Performed By: #### T 7, TSH, LIPID, CMP #### [facility] [address] [place] [address] Dr. Chucho Jesus Urea nitrogen/Creatinine [Mass ratio] 13.2 mg/mg Normal [facility] Comment on above: Performed By: #### T 7, TSH, LIPID, CMP #### [facility] [address] [place] [address] Dr. Chucho Jesus TSHon 04-24-2022 TSH 1.127 uIU/mL Normal 0.358-3.740 [facility] Comment on above: Performed By: #### T 7, TSH, LIPID, CMP #### [facility] [address] [place] [address] Dr. Chucho Jesus VITAMIN D 25 OHon 04-24-2022 VIT D 25-OH 35.2 ng/mL Normal [facility] Comment on above: Performed By: #### V ITAD, IRON #### [facility] [address] [place] [address] Dr. Chucho Jesus VIT D RANGES SEE BELOW Normal [facility] Comment on above: Result Comment: <20 ng/mL Vit D deficient 20 - <30 ng/mL Vit D insufficient 30 - 100 ng/mL Vit D sufficient >100 ng/mL Potential Toxicity Performed By: #### V ITAD, IRON #### [facility] [address] [address] [address] Chucho Jesus HCG ( test) Ql (U)O rdered By: James Churchill on 12-05-2020 Internal Control [facility] Interpretation and review of laboratory results Normal [facility] POC , UrineOrdered By: James Churchill on 12-05-2020 HCG ( test) Ql (U) Negative Negative [facility] CTA CHEST WITH CONTRASTon CTA [...] by:Ady Tran MD/Edited Result - FINAL Normal [facility] Basic Metabolic Profon 02-19 (cont.) Normal [facility] Comment on above: Result Comment: Aver age GFR for 20-29 years old: 116 mL/min/1.73sq mChronic Kidney Disease: <60 mL/min/1.73sq mKidney failure: <15 mL/min/1.73sq meGFR calculated using average adult body mass. Additional eGFR calculator available at:http://www.[employer]/multiple_crcl_2012.htm Performed By: #### C DP, BMP, TROPI ####[address] [place] [address] Anion gap 14 mmol/L Normal 9-17 [facility] Comment on above: Performed By: #### C DP, BMP, TROPI ####[address] [place] [address] BUN/CRE Ratio 13 Normal 9-20 [facility] Comment on above: Performed By: #### C DP, BMP, TROPI ####[address] [place] [address] Calcium 9.2 mg/dL Normal 8.6-10.4 [facility] Comment on above: Performed By: #### C DP, BMP, TROPI ####[address] [place] [address] Chloride 105 mmol/L Normal 98-107 [facility] Comment on above: Performed By: #### C DP, BMP, TROPI ####[address] [place] [address] CO2 23 mmol/L Normal 20-31 [facility] Comment on above: Performed By: #### C DP, BMP, TROPI ####[address] [place] [address] Creatinine 0.55 mg/dL Normal 0.50-0.90 [facility] Comment on above: Performed By: #### C DP, BMP, TROPI ####[address] [place] [address] eGFR (non-black) mL/min/{1.73_m2} Normal >60 [facility] Comment on above: Performed By: #### C DP, BMP, TROPI ####[address] [place] [address] Glucose mass conc 96 mg/dL Normal 70-99 [facility] Comment on above: Performed By: #### C DP, BMP, TROPI ####[address] [place] [address] Potassium molar conc 3.6 mmol/L Low 3.7-5.3 [facility] Comment on above: Performed By: #### C DP, BMP, TROPI ####[address] [place] [address] Sodium 142 mmol/L Normal 135-144 [facility] Comment on above: Performed By: #### C DP, BMP, TROPI ####[address] [place] [address] Staging: Normal [facility] Comment on above: Result Comment: Stag e 1: Some kidney damage normal GFRStage 2: Mild kidney damage GFR 60-89Stage 3: Moderate kidney damage GFR 30-59Stage 4: Severe kidney damage GFR 15-29Stage 5: Severe kidney damage GFR <15ESRD - chronic treatment by dialysis or transplantPerformed at [address] [place] [address] Performed By: #### C DP, BMP, TROPI ####[address] [place] [address] Urea nitrogen 7 mg/dL Normal 6-20 [facility] Comment on above: Performed By: #### C DP, BMP, TROPI ####[address] , [place] [id number](320 CBC with Diffon 02-19-2017 Abs. Basophil 0.00 k/uL Normal 0.0-0.2 [facility] Comment on above: Result Comment: Perf ormed at [address] [place], [place] [address] Performed By: #### C DP, BMP, TROPI ####[address] [place] [address] Abs.Neutrophil (Seg) 7.10 k/uL Normal 1.8-8.0 [facility] Comment on above: Performed By: #### C DP, BMP, TROPI ####[address] , [facility] Basophils/100 WBC Auto (Bld) 0 % Normal [facility] Comment on above: Performed By: #### C DP, BMP, TROPI ####[address] [place] [address] Eosinophils 0.30 10*3/uL Normal 0.0-0.4 [facility] Comment on above: Performed By: #### C DP, BMP, TROPI ####[address] , [place] [address] Eosinophils/100 leukocytes 3 % Normal [facility] Comment on above: Performed By: #### C DP, BMP, TROPI ####[address] , [facility] Erythrocyte distribution width Auto Ratio (RBC) 13.6 % Normal 12.1-15.2 [facility] Comment on above: Performed By: #### C DP, BMP, TROPI ####[address] , [facility] Erythrocytes (RBC) 5.03 10*6/uL Normal 4.0-5.2 [facility] Comment on above: Performed By: #### C DP, BMP, TROPI ####[address] [place] [address] Hematocrit (HCT) 40.2 % Normal 36-46 [facility] Comment on above: Performed By: #### C DP, BMP, TROPI ####[address] [place] [address] Hemoglobin mass conc (Bld) 13.2 g/dL Normal 12.0-16.0 [facility] Comment on above: Performed By: #### C DP, BMP, TROPI ####[address] [place] [address] Lymphocytes 2.90 10*3/uL Normal 1.2-5.2 [facility] Comment on above: Performed By: #### C DP, BMP, TROPI ####[address] [place] [address] Lymphocytes/100 leukocytes 27 % Normal [facility] Comment on above: Performed By: #### C DP, BMP, TROPI ####[address] [place] [address] MCH 26.2 pg Normal 26-34 [facility] Comment on above: Performed By: #### C DP, BMP, TROPI ####[address] [place] [address] MCHC mass conc (RBC) 32.8 g/dL Normal 31-37 [facility] Comment on above: Performed By: #### C DP, BMP, TROPI ####[address] [place] [address] MCV 79.9 fL Low 80-100 [facility] Comment on above: Performed By: #### C DP, BMP, TROPI ####[address] [place] [address] Monocytes 0.60 10*3/uL Normal 0.0-1.0 [facility] Comment on above: Performed By: #### C DP, BMP, TROPI ####[address] [place] [address] Monocytes/100 leukocytes 5 % Normal [facility] Comment on above: Performed By: #### C DP, BMP, TROPI ####[address] [place] [address] Neutrophil (Seg) 65 % Normal [facility] Comment on above: Performed By: #### C DP, BMP, TROPI ####[address] [place] [address] Platelet mean volume (PMV) 9.6 fL Normal 6.0-12.0 [facility] Comment on above: Performed By: #### C DP, BMP, TROPI ####[address] [place] [address] Platelets 278 10*3/uL Normal 140-450 [facility] Comment on above: Performed By: #### C DP, BMP, TROPI ####[address] [place] [address] WBC (Leukocytes) 10.8 10*3/uL Normal 4.5-13.5 [facility] Comment on above: Performed By: #### C DP, BMP, TROPI ####[address] [place] [address] Auto Diff Performed NOT REPORTED Normal [facility] Comment on above: Performed By: #### C DP, BMP, TROPI ####[address] [place] [address] Erythrocyte morphology NOT REPORTED Normal [facility] Comment on above: Performed By: #### C DP, BMP, TROPI ####[address] [place] [address] Platelets NOT REPORTED Normal [facility] Comment on above: Performed By: #### C DP, BMP, TROPI ####[address] [place] [address] WBC Morphology NOT REPORTED Normal [facility] Comment on above: Performed By: #### C DP, BMP, TROPI ####[address] [place] [address] ED Noteon 02-19-2017 HIM IP Note OR [employer] Normal [facility] ED Provider Noteon 7 HIM IP Note OR [employer] Normal [facility] Troponinon 02-19-2017 Troponin T.cardiac mass conc ug/L Normal <0.03 [facility] Comment on above: Result Comment: Trop onin T results cannot be compared to Troponin-I results. Performed By: #### C DP, BMP, TROPI ####[address] , [place] [id number] Troponin I.cardiac mass conc Normal [facility] Comment on above: Result Comment: Refe rence Range: <0.03 Within reference range. 0.03-0.09 Possible myocardial damage.Repeat at appropriate intervals to rule out chronic elevation. >= 0.10 Indicative of myocardial damage.Performed at [address] [place], [place] [id number] [phone] Performed By: #### C DP, BMP, TROPI ####[address] [place] [address] Vital Signs Date Time Vital Sign Value Performing Clinician Facility 07-04-2024 12:13-0500 Body mass index (BMI) [Ratio] 35.84 kg/m2 Little LOWRY Work Phone: [facility] 07-04-2024 12:13-0500 Body weight 97.7 kg Little LOWRY Work Phone: [facility] 07-04-2024 12:13-0500 Diastolic blood pressure 64 mm[Hg] Little LOWRY Work Phone: [facility] 07-04-2024 12:13-0500 Systolic blood pressure 104 mm[Hg] Little LOWRY Work Phone: [facility] 06-21-2024 13:31-0500 Body mass index (BMI) [Ratio] 35.61 kg/m2 Little LOWRY Work Phone: [facility] 06-21-2024 13:31-0500 Body weight 97.07 kg Little Ezra PA Work Phone: [facility] 06-21-2024 13:31-0500 Diastolic blood pressure 72 mm[Hg] Little Ezra PA Work Phone: [facility] 06-21-2024 13:31-0500 Systolic blood pressure 116 mm[Hg] Little Goodspring PA Work Phone: [facility] 06-07-2024 13:49-0500 Body mass index (BMI) [Ratio] 34.61 kg/m2 Berto Luis DO Work Phone: [facility] 06-07-2024 13:49-0500 Body weight 94.35 kg Berto Luis DO Work Phone: [facility] 06-07-2024 13:49-0500 Diastolic blood pressure 70 mm[Hg] Berto Luis DO Work Phone: [facility] 06-07-2024 13:49-0500 Systolic blood pressure 120 mm[Hg] Berto Luis DO Work Phone: [facility] 05-24-2024 14:26-0500 Body mass index (BMI) [Ratio] 33.75 kg/m2 Little Ezra PA Work Phone: [facility] 05-24-2024 14:26-0500 Body weight 91.99 kg Little Ezra PA Work Phone: [facility] 05-24-2024 14:26-0500 Diastolic blood pressure 70 mm[Hg] Little Ezra PA Work Phone: [facility] 05-24-2024 14:26-0500 Systolic blood pressure 108 mm[Hg] Little Goodspring PA Work Phone: [facility] 05-09-2024 11:44-0500 Body mass index (BMI) [Ratio] 33.28 kg/m2 Berto Luis DO Work Phone: [facility] 05-09-2024 11:44-0500 Body weight 90.72 kg Berto Luis DO Work Phone: [facility] 05-09-2024 11:44-0500 Diastolic blood pressure 64 mm[Hg] Berto Luis DO Work Phone: [facility] 05-09-2024 11:44-0500 Systolic blood pressure 118 mm[Hg] Berto Luis DO Work Phone: [facility] 04-11-2024 10:37-0400 Body mass index (BMI) [Ratio] 31.12 kg/m2 Little LOWRY Work Phone: [facility] 04-11-2024 10:37-0400 Body weight 84.82 kg Little LOWRY Work Phone: [facility] 04-11-2024 10:37-0400 Diastolic blood pressure 68 mm[Hg] Little Christie PA Work Phone: [facility] 04-11-2024 10:37-0400 Systolic blood pressure 116 mm[Hg] Little LOWRY Work Phone: [facility] 03-14-2024 11:44-0400 Body mass index (BMI) [Ratio] 28.62 kg/m2 Berto Luis DO Work Phone: [facility] 03-14-2024 11:44-0400 Body weight 78.02 kg Berto Luis DO Work Phone: [facility] 03-14-2024 11:44-0400 Diastolic blood pressure 74 mm[Hg] Berto Luis DO Work Phone: [facility] 03-14-2024 11:44-0400 Systolic blood pressure 118 mm[Hg] Berto Luis DO Work Phone: [facility] 02-27-2023 14:39-0400 Blood Pressure Location Gary MORRIS [facility] 02-27-2023 14:39-0400 Diastolic blood pressure 66 mm[Hg] Gary MORRIS [facility] [place] 02-27-2023 14:39-0400 Heart rate 70 /min Gary NILL [facility] [place] 02-27-2023 14:39-0400 Respiratory rate 16 /min Gary NILL [facility] [place] 02-27-2023 14:39-0400 Systolic blood pressure 106 mm[Hg] Gary NILL [facility] [place] 01-08-2022 08:09-0400 Body temperature 98.01 [degF] Wiley Rice DO Work Phone: [employer] 01-08-2022 08:09-0400 Body weight 75.75 kg Wiley Rice DO Work Phone: [employer] 01-08-2022 08:09-0400 Diastolic blood pressure 71 mm[Hg] Wiley Rice DO Work Phone: [employer] 01-08-2022 08:09-0400 Heart rate 98 /min Wiley Rice DO Work Phone: [employer] 01-08-2022 08:09-0400 Systolic blood pressure 112 mm[Hg] Wiley Rice DO Work Phone: [employer] 12-10-2021 14:45-0400 Body height 166.37 cm Bret Long [facility] [employer] Other 12-10-2021 14:45-0400 Body mass index (BMI) [Ratio] 26.55 kg/m2 Bret Long Other [employer] Other 12-10-2021 14:45-0400 Body weight 73.48 kg Bret Long Other [employer] Other 12-10-2021 14:45-0400 Diastolic blood pressure 72 mm[Hg] Bret Long Other [employer] Other 12-10-2021 14:45-0400 Systolic blood pressure 103 mm[Hg] Bret Long Other [facility] [employer] Other 11-27-2021 14:01-0400 Body temperature 98.4 [degF] Wiley Rice DO Work Phone: [employer] 11-27-2021 14:01-0400 Body weight 74.84 kg Wiley Rice DO Work Phone: [employer] 11-27-2021 14:01-0400 Diastolic blood pressure 64 mm[Hg] Wiley Rice DO Work Phone: [facility] 11-27-2021 14:01-0400 Heart rate 98 /min Wiley Rice DO Work Phone: [employer] 11-27-2021 14:01-0400 Systolic blood pressure 121 mm[Hg] Wiley Rice DO Work Phone: [facility] 12-05-2020 19:26-0400 Heart rate 106 /min James Breece PA-C Work Phone: [facility] 12-05-2020 19:25-0400 Body temperature 98.29 [degF] James Breece PA-C Work Phone: [facility] 12-05-2020 19:25-0400 Body weight 97.98 kg James Breece PA-C Work Phone: [facility] 12-05-2020 19:25-0400 Diastolic blood pressure 86 mm[Hg] James Breece PA-C Work Phone: [facility] 12-05-2020 19:25-0400 Respiratory rate 16 /min James Breece PA-C Work Phone: [facility] 12-05-2020 19:25-0400 SaO2% (BldA) [Mass fraction] 97 % James Breece PA-C Work Phone: [facility] 12-05-2020 19:25-0400 Systolic blood pressure 126 mm[Hg] James Romeroparker LOWRY-Rubina Work Phone: [facility] Encounters Encounter Date Encounter Type Care Provider Facility Start: 07-04-2024 End: 07-04-2024 Bamboo flowsheet Little LOWRY Work Phone: [facility] Start: 07-04-2024 End: 07-04-2024 Bamboo flowsheet Little LOWRY Work Phone: [facility] Start: 07-04-2024 End: 07-04-2024 Clinisync Result Encounter Berto Luis DO Work Phone: [facility] External Department Unsolicited Start: 07-04-2024 End: 07-04-2024 ambulatory LITTLE CHRISTIE Not Available Start: 07-04-2024 End: 07-04-2024 Office outpatient visit 15 minutes Little LOWRY Work Phone: [facility] Comment on above: Third trimester preg lenin; 34 weeks gestation of Start: 06-21-2024 End: 06-21-2024 Bamboo flowsheet Little LOWRY Work Phone: [facility] Start: 06-21-2024 End: 06-21-2024 Bamboo flowsheet Little LOWRY Work Phone: [facility] Start: 06-21-2024 End: 06-21-2024 ambulatory LITTLE CHRISTIE Not Available Start: 06-21-2024 End: 06-21-2024 Office outpatient visit 15 minutes Little LOWRY Work Phone: [facility] Comment on above: Third trimester preg lenin; 33 weeks gestation of Start: 06-07-2024 End: 06-07-2024 Bamboo flowsheet Berto Luis DO Work Phone: [facility] Start: 06-07-2024 End: 06-07-2024 Bamboo flowsheet Berto Luis DO Work Phone: [facility] Start: 06-07-2024 End: 06-07-2024 ambulatory BERTO LUIS Not Available Start: 06-07-2024 End: 06-07-2024 Office outpatient visit 15 minutes Berto Luis DO Work Phone: [facility] Comment on above: 31 weeks gestation o f ; Third trimester ; Gastroesophageal reflux in Start: 05-24-2024 End: 05-24-2024 Office outpatient visit 15 minutes Little LOWRY Work Phone: [facility] Comment on above: Third trimester preg lenin; 29 weeks gestation of ; Upper respiratory tract infection, unspecified type Start: 05-24-2024 End: 05-24-2024 ambulatory LITTLE CHRISTIE Not Available Start: 05-24-2024 End: 05-24-2024 Bamboo flowsheet Little LOWRY Work Phone: [facility] Start: 05-24-2024 End: 05-24-2024 Bamboo flowsheet Little LOWRY Work Phone: [facility] Start: 05-09-2024 End: 05-09-2024 Bamboo flowsheet Berto Luis DO Work Phone: [facility] Start: 05-09-2024 End: 05-09-2024 Bamboo flowsheet Berto Luis DO Work Phone: [facility] Start: 05-09-2024 End: 05-09-2024 Office outpatient visit 15 minutes Berto Luis DO Work Phone: [facility] Comment on above: Second trimester pre gnancy; 26 weeks gestation of ; History of miscarriage Start: 05-09-2024 End: 05-09-2024 ambulatory BERTO LUIS Not Available Start: 04-11-2024 End: 04-11-2024 Bamboo flowsheet Little LOWRY Work Phone: [facility] Start: 04-11-2024 End: 04-11-2024 Bamboo flowsheet Little LOWRY Work Phone: [facility] Start: 04-11-2024 End: 04-11-2024 Office outpatient visit 15 minutes Little Christie PA Work Phone: [facility] Comment on above: Second trimester pre gnancy; 22 weeks gestation of ; Diabetes mellitus screening Start: 04-11-2024 End: 04-11-2024 ambulatory LITTLE EZRA Not Available Start: 03-23-2024 End: 03-23-2024 ambulatory BERTO R LUIS [facility] Start: 03-14-2024 End: 03-14-2024 Bamboo flowsheet Berto Luis DO Work Phone: [facility] Start: 03-14-2024 End: 03-14-2024 Bamboo flowsheet Berto Luis DO Work Phone: [facility] Start: 03-14-2024 End: 03-14-2024 Office outpatient visit 15 minutes Berto Luis DO Work Phone: [facility] Comment on above: Second trimester pre gnancy Start: 03-14-2024 End: 03-14-2024 ambulatory BERTO LUIS Not Available Start: 02-15-2024 End: 02-15-2024 ambulatory LITTLE EZRA Not Available Start: 01-20-2024 End: 01-20-2024 ambulatory BERTO LUIS Not Available Start: 01-01-2024 End: 01-01-2024 ambulatory LITTLE EZRA Not Available Start: 12-17-2023 End: 12-17-2023 ambulatory LITTLE EZRA Not Available Start: 02-27-2023 End: 02-28-2023 ambulatory Gary MORRIS Facility:[facility] Start: 02-27-2023 End: 02-27-2023 Patient encounter procedure Gary MORRIS General Surgery Alexandra/Chris [facility] Start: 02-23-2023 ambulatory Alexandr Bourgeois Facility:[facility] Start: 02-05-2023 ambulatory Gary MORRIS [...] . Facility:[facility] Start: 02-18-2022 ambulatory WILEY HARPERE M~[id number] [facility] Start: 02-12-2022 ambulatory WILEY WILEY M~[id number] [facility] Start: 02-12-2022 End: 02-12-2022 Telemedicine consultation with patient Wiley Huffman Rice DO Work Phone: [facility] Comment on above: Anxiety (Primary Dx) Start: 01-19-2022 Refill Luis Dipalma D O Work Phone: [facility] Start: 01-19-2022 Refill Luis Dipalma D O Work Phone: [facility] Start: 01-08-2022 End: 01-08-2022 ambulatory WILEY WILEY M~[id number] [facility] Start: 01-08-2022 End: 01-08-2022 Office outpatient visit 25 minutes Wiley M Rice DO Work Phone: [facility] Comment on above: Anxiety (Primary Dx) ; Hypotension, unspecified hypotension type Start: 01-08-2022 End: 01-08-2022 Patient encounter procedure Wiley M Rice DO Work Phone: [facility] Start: 12-11-2021 End: 12-11-2021 ambulatory WILEY WILEY M~[id number] [facility] Start: 12-10-2021 End: 12-10-2021 ambulatory Bret Long Other [facility] [employer] Other Start: 12-10-2021 Office outpatient ne w 45 minutes Bret Long [facility] G[facility] Start: 11-27-2021 End: 11-27-2021 ambulatory WILEY Huffman~[id number] [facility] Start: 11-27-2021 End: 11-27-2021 Office outpatient new 30 minutes Wiley Huffman Rice DO Work Phone: [facility] Comment on above: Anxiety (Primary Dx) Start: 11-27-2021 End: 11-27-2021 Patient encounter procedure Wiley Huffman Rice DO Work Phone: [facility] Start: 11-25-2021 Telephone encounter Dana Kinsey [facility] Start: 12-05-2020 End: 12-05-2020 ambulatory PHYSICIAN NO [facility] Start: 12-05-2020 End: 12-05-2020 Office outpatient new 20 minutes James Churchill PA-C Work Phone: [facility] [place] Comment on above: Vaginal sore (Primar y Dx) Start: 02-19-2017 End: 02-19-2017 Emergency department patient visit [facility] Procedures Date Procedure Procedure Detail Performing Clinician Start: 07-04-2024 ALL CBC WITH AUTO DIFF Berto Luis DO Work Phone: Start: 07-04-2024 Urnls dip stick/tabl et rgnt non-auto w/o micrscp Little LOWRY Work Phone: Start: 06-21-2024 Urnls dip stick/tabl et rgnt non-auto w/o micrscp Little LOWRY Work Phone: Start: 06-07-2024 Urnls dip stick/tabl et rgnt non-auto w/o micrscp Berto Luis DO Work Phone: Start: 05-09-2024 Urnls dip stick/tabl et rgnt non-auto w/o micrscp Berto Luis DO Work Phone: Start: 04-11-2024 Urnls dip stick/tabl et rgnt non-auto w/o micrscp Little Christie PA Work Phone: Start: 03-14-2024 Urnls dip stick/tabl et rgnt non-auto w/o micrscp Berto Luis DO Work Phone: Start: 11-27-2021 Adult depression scr eening assessment Wiley Rice DO Work Phone: Start: 12-05-2020 Urine test visual color cmprsn meths James Meliza Churchill PA-C Work Phone: Start: 02-19-2017 Ct angiography chest w/contrast/noncontrast KIM SUTHERLAND Start: 02-19-2017 SALINE LOCK IV KIM SIBLEY Start: 02-19-2017 TELEMETRY MONITORING MA RK ENA Start: 02-19-2017 BASIC METABOLIC PANEL M ARK ENA Start: 02-19-2017 CBC WITH AUTO DIFFERENTIAL KIM SUTHERLAND Start: 02-19-2017 TROPONIN KIM Howell Start: 02-19-2017 EKG 12-LEAD KIM Howell None (qualifier value) Henrik brothers ALEXANDRA Plan of Treatment Date Care Activity Detail Author Start: 07-18-2024 End: 07-18-2024 Patient encounter procedure 07/18/2024 10:00 AM EST Routine [facility] [address] [place] [address] Berto Smith, DO [address] [place] [address] [facility] Start: 07-04-2024 End: 07-04-2024 Patient encounter procedure 07/04/2024 11:50 AM EST Routine [facility] [address] [place] [id number] Little Christie PA [address] [place] [address] [facility] Start: 06-21-2024 End: 06-21-2024 Patient encounter procedure 06/21/2024 1:20 PM EST Routine [facility] [address] [place] [id number] Little Christie, PA [address] [place] [address] [facility] Start: 06-07-2024 End: 06-07-2024 Patient encounter procedure 06/07/2024 1:30 PM EST Routine [facility] [address] [place] [id number] Berto Smith DO [address] [place] [place] [address] [facility] Start: 05-24-2024 End: 05-24-2024 Patient encounter procedure 05/24/2024 2:10 PM EST Routine [facility] [address] [place] [id number] Little Christie, PA [address] [place] [address] Arrived [facility] Comment on above: Arrived Start: 05-23-2024 End: 05-23-2024 Patient encounter procedure 05/23/2024 1:50 PM EST Routine [facility] [address] [place] [phone] Little Christie, PA [address] [place] [address] [facility] Start: 05-09-2024 End: 05-09-2025 US biophysical profile w non stress test US biophysical profile w non stress test Imaging Routine Second trimester 26 weeks gestation of History of miscarriage Expected: 05/09/2024 (Approximate), Expires: 05/09/2025 [facility] Work Phone: Comment on above: Expected: 05/09/2024 (Approximate), Expires: 05/09/2025 Start: 05-09-2024 End: 05-09-2025 US for [facility] Comment on above: Expected: 05/09/2024 (Approximate), Expires: 05/09/2025 Start: 05-09-2024 End: 05-09-2024 Patient encounter procedure [facility] Comment on above: Arrived Start: 04-11-2024 End: 04-11-2025 CBC panel - Blood by Automated count CBC Lab Routine Diabetes mellitus screening Expected: 04/11/2024 (Approximate), Expires: 04/11/2025 [facility] Work Phone: Comment on above: Expected: 04/11/2024 (Approximate), Expires: 04/11/2025 Start: 04-11-2024 End: 04-11-2025 Measurement of glucose 1 hour after glucose challenge for glucose tolerance test Glucose tolerance, 1 hour Lab Routine Diabetes mellitus screening Expected: 04/11/2024 (Approximate), Expires: 04/11/2025 [facility] Comment on above: Expected: 04/11/2024 (Approximate), Expires: 04/11/2025 Start: 04-11-2024 End: 04-11-2024 Patient encounter procedure [facility] Comment on above: Arrived Start: 03-14-2024 End: 03-14-2024 Patient encounter procedure 03/14/2024 11:20 AM EDT Routine [facility] [address] [place] [address] Berto Smith DO [address] [place] [address] Arrived [facility] Comment on above: Arrived Start: 03-06-2024 Influenza vaccination Influenza Vacc ine (#1) [facility] Start: 11-27-2022 Adolescent depressio n screening assessment Depression Screening [facility] Start: 03-06-2022 Influenza vaccination [facility] Start: 02-07-2022 End: 02-07-2022 Patient encounter procedure 02/07/2022 Office Visit Family Medicine Wiley Osorio, DO [address] [place] [phone] [facility] Start: 12-19-2021 End: 12-19-2021 Patient encounter procedure 12/19/2021 Office Visit [facility] Wiley Osorio DO [address] [place] [phone] [facility] Start: 12-07-2021 COVID-19 Vaccine (3 - Booster for Moderna series) COVID-19 Vaccine (3 - Booster for Moderna series) [facility] Start: 11-27-2021 End: 11-27-2021 Patient encounter procedure 11/27/2021 Office Visit [facility] Wiley Osorio, [address] [place] [phone] [facility] Start: 11-24-2021 Adolescent depressio n screening assessment Depression Screening [facility] Start: 11-24-2021 Hep[facility] Start: 11-24-2021 HIV screening HIV Screening [facility] Start: 11-24-2021 Social Influencers o f Health Screening Social Influencers of Health Screening [facility] Start: 03-06-2021 Influenza vaccination Sequenti al Influenza Vaccine (Season Ended) [facility] Start: 2017 Screening for malign ant neoplasm of cervix Cervical Cancer Screening: Pap Smear [facility] Start: 2015 DTaP,Tdap,and Td Vac cines (1 - Tdap) DTaP,Tdap,and Td Vaccines (1 - Tdap) [facility] Start: 2014 Hepatitis C screening Hepatitis C Sc reening [facility] Start: 2011 HIV screening HIV Screening [facility] Start: 2008 COVID-19 Vaccine (1) COVID-19 Vaccin e (1) [facility] Start: 2008 Depression screening using PHQ-9 (Patient Health Questionnaire 9) score Depression Screening (PHQ9) [facility] Start: 2007 HPV Vaccines (1 - 2- dose series) HPV Vaccines (1 - 2-dose series) [facility] Start: 2007 Vaccination for april n papillomavirus HPV Vaccines (1 - 2-dose series) [facility] Start: 2001 COVID-19 Vaccine (1) COVID-19 Vaccin e (1) [facility] Start: 1999 History and physical examination, annual for health maintenance Wellness Visit [facility] Start: 1996 Screening for Chlamy marilee trachomatis Chlamydia Screening [facility] Start: 1996 Screening for malign ant neoplasm of cervix Pap Smear [facility] Start: 1996 Tetanus vaccination Tetanus: Every 1 0yrs [facility] Chlamydia trachomati s rRNA assay Chlamydia/GC/Trichomon as Amplified RNA Microbiology Routine Vaginal sore Ordered: 12/05/2020 [facility] Comment on above: Ordered: 12/05/2020 HSV by PCR Superfici al Site HSV by PCR Superficial Site Lab Routine Vaginal sore Ordered: 12/05/2020 [facility] Comment on above: Ordered: 12/05/2020 Neisseria gonorrhoea e nucleic acid detection Chlamydia/Gonorrhoeae Amplified RNA Microbiology Routine Vaginal sore Ordered: 12/05/2020 [facility] Comment on above: Ordered: 12/05/2020 Trichomonas vaginali s Amplified RNA Trichomonas vaginalis Amplified RNA Microbiology Routine Vaginal sore Ordered: 12/05/2020 [facility] Comment on above: Ordered: 12/05/2020 Immunizations Immunization Date Immunization Notes Care Provider Fa cility 07-09-2021 SARS-CoV-2 (COVID-19 ) mRNA-1273 vaccine Gary MORRIS [facility] 06-08-2021 SARS-CoV-2 (COVID-19 ) mRNA-1273 vaccine Gary MORRIS [facility] 04-10-2011 influenza virus vaccine, unspecified formulation Berto Luis DO Work Phone: [facility] Payers Date Payer Category Payer Private Health Insurance [facility] MEDICAID [id number] 2021 Medicaid [id number] 2020 Medicaid [id number] [id number]. [id number] 2016 Unknown [id number] 2013 Unknown [id number] 1996 Unknown [id number] 2.16.840.1.116309.3.579.2. 903 1996 Unknown [id number] 2.16.840.1.906122.3.579.2. 114 1996 Unknown [id number] 2.16.840.1.284515.3.579.2. 114 1996 Unknown [id number] 2.16.840.1.700387.3.579.2. 114 1996 Unknown [id number] 2.16.840.1.527251.3.579.2. 114 1996 Unknown [id number] 2.16.840.1.830154.3.579.2. 114 1996 Unknown [id number] 2.16.840.1.014744.3.579.2. 593 1996 Unknown [id number] 2.16.840.1.860723.3.579.2. 593 1996 Unknown [id number] 2.16.840.1.310915.3.579.2. 593 1996 Unknown [id number] 2.16.840.1.694095.3.579.2. 593 1996 Unknown [id number] 2.16.840.1.167783.3.579.2. 593 1996 Unknown [id number] 2.16.840.1.231654.3.579.2. 593 1996 Unknown [id number] 2.16.840.1.077591.3.579.2. 593 1996 Unknown [id number] 2.16.840.1.216186.3.579.2. 727 1996 Unknown [id number] 2.16.840.1.462168.3.579.2. 1286 1996 Unknown [id number] 2.16.840.1.671099.3.579.2. 1286 1996 Unknown [id number] 2.16.840.1.358311.3.579.2. 1258 1996 Unknown [id number] 2.16.840.1.284388.3.579.2. 1259 1996 Unknown [id number] 2.16.840.1.976319.3.579.2. 125 1996 Unknown [id number] 2.16.840.1.058133.3.579.2. 125 1996 Unknown [id number] 2.16.840.1.899246.3.579.2. 125 1996 Unknown [id number] 2.16.840.1.430406.3.579.2. 1259 1996 Unknown [id number] 2.16.840.1.356504.3.579.2. 125 1996 Unknown [id number] 2.16.840.1.269704.3.579.2. 1259 1996 Unknown [id number] 2.16.840.1.414802.3.579.2. 1259 1996 Unknown [id number] 2.16.840.1.720150.3.579.2. 1259 1996 Unknown [id number] 2.16.840.1.689170.3.579.2. 1259 1960 Unknown [id number] 2.16.840.1.332276.3.579.2. 727 1959 Medicaid [id number] 1959 Self-pay 1959 Unknown [id number] 1959 Unknown [id number] 1959 Unknown [id number] Unknown [id number] 2.16.840.1.162185.3.579.2. 531 Social History Date Type Detail Facility Start: 12-05-2020 End: 02-27-2023 Tobacco smoking status NYIS Never smoker [facility] Start: 12-05-2020 End: 11-27-2021 Tobacco use and exposure Never used [facility] Start: 12-05-2020 Alcohol intake Current drinke r of alcohol (finding) [facility] Start: 12-05-2020 End: 11-27-2021 History SDOH Alcohol Frequency 1 [facility] Start: 12-05-2020 Alcohol Comment occ [facility] Start: 1996 Sex Assigned At Not on file [facility] Start: 11-17-2021 End: 02-12-2022 Exposure to SARS-CoV-2 (event) Not sure [facility] Tobacco smoking stat [facility] Tobacco smoking consumption unknown [facility] Start: 11-27-2021 End: 05-24-2024 Alcohol intake Lifetime non-drinker (finding) [facility] Start: 1995 Sex Assigned At Female [facility] Start: 12-17-2023 Sex Assigned At F [facility] Tobacco smoking status Never [facility] Start: 03-28-2023 Tobacco smoking stat [facility] Ex-smoker [facility] History of tobacco use Current smoker [facility] History of tobacco use Cigarette Smoker [facility] Start: 12-17-2023 History of Social function [facility] Start: 11-17-2023 [facility] Start: 01-19-2023 Gender identity Identifies as female gender (finding) [facility] Functional Status Date Assessment Result Facility 02-27-2023 Functional Status N/A [facility] Clinical Notes 12-05-2020 to 07-04-2024 ESSENCE Haley - 07/04/2024 11:50 AM ESSENCE Mahan - 06/21/2024 1:20 PM Zohreh Bradley LPN - 06/07/2024 1:20 PM ESSENCE Mahan - 05/24/2024 2:10 PM Maria Eugenia Hein MA - 05/09/2024 11:30 AM EST Note Date & Type Note Facility 07-04-2024 History of Present illness Narrative Reason for Appointment: Patient ID: Leslie Ford is a 29 y.o. female who presents for No chief complaint on file. Patient presents today for Return OB appointment. [...] nursing note reviewed. Exam conducted with a log chain feeder present. Vitals: Estimated body mass index is 35.61 kg/m as calculated from the following: Height as of 02/02/23: 5' 5 . Weight as of 06/21/24: 214 lb. BP: Patient's last menstrual period was 11/03/2023. ASSESSMENT & PLAN Patient presents today for a routine obstetrics appointment. Patient is currently 34w6d with a Estimated Date of Delivery: 08/09/24. Pt states experiencing near syncopal events, neuro consult to be sent Documented by Shalonda Tse LPN on behalf of: ESSENCE Haley documented in this encounter [facility] 06-21-2024 History of Present illness Narrative Reason [...] nursing note reviewed. Exam conducted with a log chain feeder present. Vitals: Estimated body mass index is [...] Little Christie PA-C documented in this encounter [facility] 06-07-2024 History of Present illness [...] nursing note reviewed. Exam conducted with a log chain feeder present. Vitals: Estimated body mass index is [...] Berto Smith DO documented in this encounter [facility] 05-24-2024 History of Present illness [...] of: ESSENCE Haley documented in this encounter [facility] 05-09-2024 History of Present illness [...] nursing note reviewed. Exam conducted with a log chain feeder present. Vitals: Estimated body mass index is [...] Berto Smith DO documented in this encounter [facility] 04-11-2024 History of Present illness [...] of: ESSENCE Haley documented in this encounter [facility] 03-14-2024 History of Present illness [...] nursing note reviewed. Exam conducted with a log chain feeder present. Vitals: Estimated body mass index is [...] Berto Smith DO documented in this encounter [facility] 02-27-2023 Note Chief Complaint consultation [...] with excisional biopsy under local anesthesia at [facility]; call with problems/questions. Follow-up No qualifying [...] (COVID-19) mRNA-1273 vaccine 06/08/2021 Recorded [facility] Comment on above: Result Comment: Elec tronically Signed By: ALEXANDRA RANGEL, Gary Jackson\Date and Time Signed: 02/27/23 16:20 EDT 02-12-2022 History of Present illness Narrative Attempted to complete Mchart and patient was not online despite speaking to SEBASTIAN prior to appointment. Attempted to call on phone 3 separate times before noon with no answer. May reschedule at later date. documented in this encounter [facility] 01-08-2022 History of Present illness Narrative [...] due to buspirone. documented in this encounter [facility] 12-10-2021 Evaluation note Encounter Date Diagnosis Assessment Notes Dec, Irritable bowel syndrome with diarrhea (ICD-10 - K58.0) Continue medications without change Dec, Epigastric pain (ICD-10 - R10.13) Dec, Chronic nausea (ICD-10 - R11.0) Dec, Family history of carcinoma in situ of anal canal (ICD-10 - Z84.89) Dec, Other Continue Zofran prn Pt to call if symptoms worsen [employer] Other 05-25-2022 History of Present illness Narrative* Wiley Osorio DO - 11/27/2021 2:00 PM EDT Subjective Patient ID: Leslie Ford is a 26 y.o. female. Chief Complaint Patient presents with [facility] 26 y.o. female [facility]. History of anxiety and depression. Has [...] it ( July 2017) documented in this [facility]05-23-2022 History of Present illness Narrative* Dana Rosario [...] like me to do? documented in this [facility]06-02-2021 History of Present illness Narrative* James Churchill PA-C - 12/05/2020 8:22 PM EDT Images from the original note were not included. Patient Name: [facility] Location: Leslie Briceño [facility] [id number] Date Of : Date Of Visit: 1995 12/05/2020 MRN# Provider: [id number] James Churchill PA-C Chief Complaint Patient presents [...] urine from irritatingthe sores. ? Take an isne-ssc-vcwyefk pain medicine, such as acetaminophen (Tylenol), ibuprofen [...] Log into your personal health record on [email or web address] and enter E579 in the Education box to learn more about Genital Herpes: Care Instructions. Current as of: August 31, 2019 Content Version: 12.8 [employer]. Care instructions adapted under license by your healthcare professional. If you have questions about a medical condition or this instruction, always ask your healthcare professional. [employer] disclaims any warranty or liability for your use of this information. documented in this [id number] Instructions* Patient Instructions* James Churchill PA-C - [...] urine from irritatingthe sores. ? Take an mvjo-mtv-uefqdwu pain medicine, such as acetaminophen (Tylenol), ibuprofen [...] Log into your personal health record on [email or web address] and enter E579 in the Education box to learn more about Genital Herpes: Care Instructions. Current as of: August 31, 2019 Content Version: 12.8 [employer]. Care instructions adapted under license by your healthcare professional. If you have questions about a medical condition or this instruction, always ask your healthcare professional. [employer] disclaims any warranty or liability for your use of this information. [facility] No data available for this section [facility] [place] [facility] note* Diagnosis Vaginal sore- Primary documented in this encounter [facility] note* Diagnosis Anxiety- Primary Anxiety state, unspecified [facility] Diagnosis Anxiety- Primary Anxiety state, unspecified Hypotension, unspecified hypotension type [facility] Diagnosis Anxiety- Primary Anxiety state, unspecified [facility]* Diagnosis Second trimester state, incidental 22 weeks gestation of Diabetes mellitus screening Screening for diabetes mellitus [facility] Diagnosis Second trimester state, incidental 26 weeks gestation of History of miscarriage Personal history of other genital system and obstetric disorders [facility]* Diagnosis 31 weeks gestation of Third trimester state, incidental Gastroesophageal reflux in [facility]* Diagnosis Third trimester state, incidental 33 weeks gestation of [facility]* Diagnosis Second trimester state, incidental [facility]* Diagnosis Third trimester state, incidental 29 weeks gestation of Upper respiratory tract infection, unspecified type [facility]* Diagnosis Third trimester state, incidental 34 weeks gestation of documented in this encounter [facility] Narrative - Reported* Type Description Date Medical History IBS [facility] Other Hospital Discharge instructions No data available [...] FoundDocuments on File Type Date Recorded Patient Human Resources Executive Assistant Expl anation Advance Directives and Living Will Documents on File Type Date Recorded Patient Human Resources Executive Assistant Expl anation Power of Carpentry Professional Additional Source Comments INFORMATION SOURCE (unrecogn ized section and content) DATE CREATED AUTHOR 12/30/2017 [facility] DATE CREATED AUTHOR AUTHOR'S ORGANIZ ATION 12/06/2020 [facility] DATE CREATED AUTHOR AUTHOR'S ORGANIZ ATION 02/16/2022 [facility] DATE CREATED AUTHOR AUTHOR'S ORGANIZ ATION 02/27/2022 [facility] DATE CREATED AUTHOR AUTHOR'S ORGANIZ ATION 11/14/2022 [facility] DATE CREATED AUTHOR AUTHOR'S ORGANIZ ATION 03/02/2023 [facility] DATE CREATED AUTHOR AUTHOR'S ORGANIZ ATION 07/05/2023 [facility] DATE CREATED AUTHOR AUTHOR'S ORGANIZ ATION 03/25/2024 [facility] DATE CREATED AUTHOR AUTHOR'S ORGANIZ ATION 07/05/2024 [facility] EPIC Reason for Visit [...] Care Teams (unrecognized sec tion and content) Fashion Stylist Relationship Specialty Start Date End Date Lalito Osoriolenigel Huffman, DO [address] [place] [phone] PCP - General Family Medicine 11/27/21 Fashion Stylist Relationship Specialty Start Date End Date Devon Wiley M, DO [address] [place] [phone] PCP - General Family Medicine 11/27/21 Fashion Stylist Relationship Specialty Start Date End Date Devon Wiley Nathanael DO [address] [place] [phone] PCP - General Family Medicine 11/27/21 Fashion Stylist Relationship Specialty Start Date End Date Homar Beltran MD [address] [place] [facility] [address] PCP - General Family Medicine 01/20/23 Fashion Stylist Relationship Specialty Start Date End Date Homar Beltran MD [address] [place] [facility] [address] PCP - General Family Medicine 01/20/23 Fashion Stylist Relationship Specialty Start Date End Date Homar Beltran MD [address] [place] [facility] [address] PCP - General Family Medicine 01/20/23 Fashion Stylist Relationship Specialty Start Date End Date Homar Beltran MD [address] [place] [facility] [address] PCP - General Family Medicine 01/20/23 Fashion Stylist Relationship Specialty Start Date End Date Homar Beltran MD [address] [place] [facility] [address] PCP - General Family Medicine 01/20/23 Fashion Stylist Relationship Specialty Start Date End Date Homar Beltran MD [address] [place] [facility] [address] PCP - General Family Medicine 01/20/23 Fashion Stylist Relationship Specialty Start Date End Date Homar Beltran MD [address] [place] [facility] [address] PCP - General Family Medicine 01/20/23 Fashion Stylist Relationship Specialty Start Date End Date Homar Beltran MD [address] [place] [facility] [address] PCP - General Family Medicine 01/20/23 Fashion Stylist Relationship Specialty Start Date End Date Homar Beltran MD [address] [place] [facility] [address] PCP - [facility] 01/20/23 Fashion Stylist Relationship Specialty Start Date End Date Homar Beltran MD [address] [place] [facility] [address] PCP - [facility] 01/20/23 Fashion Stylist Relationship Specialty Start Date End Date Homar Beltran MD [address] [place] [facility] [address] PCP - General Family [facility] 01/20/23 FOR RECORDS PERTAINING TO PATIENTS WHO [...] BE BASED ON THE PRIMARY CLINICAL RECORDS. [facility] [employer] [facility]. provides no warranty or guarantee of the accuracy or completeness of information in this document.
--- NOTE | 2024-07-07 09:18 | US_ITS ---
[address] [address] Patient Name: KISHAN RAMSEY MRN: [id number] date: 1995 Sex: F Assigned Patient Location: [facility] Current Patient Location: Accession/Order Number: [id number] Exam Date: 07/07/2024 09:20 Report Date: 07/07/2024 10:14 At the request of: KATELYN DUVALL Procedure: US OB BPP w non-stress EXAMINATION: US OB BPP w non-stress HISTORY: History of miscarriage COMPARISON: No relevant comparison available. TECHNIQUE: Ultrasound biophysical profile was performed in the radiology department. non-reactive stress testing was performed by nursing staff in the birthing center. FINDINGS: BREATHING MOVEMENTS: 2 GROSS BODY MOVEMENTS: 2 TONE: 2 QUALITATIVE AMNIOTIC FLUID VOLUME: 2 PRESENTATION: CEPHALIC HEART RATE: 152.54 bpm AMNIOTIC FLUID VOLUME: 17.3 cm GESTATIONAL AGE: 35 weeks 2 days US/US OB BPP w non-stress IMPRESSION: Total biophysical profile score: 8 Electronically authenticated by: AKUA MELENDEZ Date: 07/07/2024 10:14
[2024-07-07 09:40] VITALS: BP 97/54; PULSE 85
== END 2024-07-07 10:10 | disposition home or self-care (01) ==
LOC: FBCO 03:47 → FBC 09:10
PROVIDERS: PCP Family Medicine; Visit Provider Obstetrics & Gynecology
DX: O26.893 Other specified pregnancy related conditions, third trimester (principal); Z3A.35 35 weeks gestation of pregnancy
CPT/HCPCS: 76818

== ENCOUNTER 2024-07-11 00:36 | Outpatient (OUT) | payer OTHER, SELFPAY ==
[2024-07-11 09:42] VITALS: BP 122/76; PULSE 111
== END 2024-07-11 10:20 | disposition home or self-care (01) ==
LOC: FBCO 00:36 → FBC 09:38
PROVIDERS: PCP Family Medicine; Visit Provider Obstetrics & Gynecology
DX: O09.523 Supervision of elderly multigravida, third trimester (principal)
CPT/HCPCS: 59025

== ENCOUNTER 2024-07-14 01:13 | Outpatient (OUT) | payer OTHER, SELFPAY ==
--- NOTE | 2024-07-14 | US_ITS ---
[address] [address] Patient Name: KISHAN RAMSEY MRN: [id number] date: 1995 Sex: F Assigned Patient Location: [facility] Current Patient Location: Accession/Order Number: [id number] Exam Date: 07/14/2024 09:20 Report Date: 07/14/2024 10:15 At the request of: KATELYN DUVALL Procedure: US OB BPP w non-stress EXAMINATION: US OB BPP w non-stress HISTORY: HISTORY OF MISCARRIAGE Z87.59 COMPARISON: No relevant comparison available. TECHNIQUE: Ultrasound biophysical profile was performed in the radiology department. non-reactive stress testing was performed by nursing staff in the birthing center. FINDINGS: BREATHING MOVEMENTS: 2 GROSS BODY MOVEMENTS: 2 TONE: 2 QUALITATIVE AMNIOTIC FLUID VOLUME: 2 PRESENTATION: CEPHALIC HEART RATE: 150.84 bpm AMNIOTIC FLUID VOLUME: 18.7 cm GESTATIONAL AGE: 36 weeks 2 days US/US OB BPP w non-stress IMPRESSION: Total biophysical profile score: 8 Electronically authenticated by: AKUA MELENDEZ Date: 07/14/2024 10:15
--- NOTE | 2024-07-14 | US_ITS ---
[address] [address] Patient Name: KISHAN RAMSEY MRN: [id number] date: 1995 Sex: F Assigned Patient Location: [facility] Current Patient Location[place] [facility] Accession/Order Number: [id number] Exam Date: 07/14/2024 09:20 Report Date: 07/14/2024 10:25 At the request of: KATELYN DUVALL Procedure: US OB growth EXAMINATION: US OB growth HISTORY: HISTORY OF MISCARRIAGE Z87.59 COMPARISON: No relevant comparison available. FINDINGS: Heart Rate: 150.84 bpm Amniotic Fluid Volume: 18.7 cm, largest fluid pocket 6.4 cm Number: 1 Position: Cephalic presentation, longitudinal lie BIOMETRY: BPD: 9.15 cm; 37 weeks 1 day; 81.40 % HC: 34.29 cm; 39 weeks 4 days; 90.90 % AC: 33.73 cm; 37 weeks 4 days; 90.40 % FL: 7.15 cm; 36 weeks 4 days; 55.80 % EFW: 3241.62 g; 84.20 %, 7 lbs. 2 oz. FL/AC: 21.20 FL/BPD: 78.15 HC/AC: 1.02 GESTATIONAL AGE: Age by EDC: 36 weeks 2 days SAN[place] by EDC: 2024-08-09 Age by US: 37 weeks 5 days SANCHO by US: 2024-07-30 US/US OB growth IMPRESSION: Normal interval growth Electronically authenticated by: AKUA MELENDEZ Date: 07/14/2024 10:25
[2024-07-14 09:41] VITALS: BP 112/73; PULSE 93
== END 2024-07-14 10:11 | disposition home or self-care (01) ==
LOC: FBCO 01:13 → FBC 09:08
PROVIDERS: PCP Family Medicine; Visit Provider Obstetrics & Gynecology
DX: O26.893 Other specified pregnancy related conditions, third trimester (principal); Z87.59 Personal history of other complications of pregnancy, childbirth and the puerperium; Z3A.36 36 weeks gestation of pregnancy
CPT/HCPCS: 76816; 76818

== ENCOUNTER 2024-07-18 00:28 | Outpatient (OUT) | payer OTHER, SELFPAY ==
--- OUTSIDE RECORDS SUMMARY | 2024-07-18 00:34 | XMS_ITS | CCD ---
Author Organization [facility] Care Team Providers Care Shipping/Receiving Manager Name Role Phone KIM SUTHERLAND Unavailable Unavailable WILLY CONKLIN Unavailable Unavailable HOMAR BELTRAN Unavailable Unavailable HOMAR BELTRAN Unavailable Unavailable No, Physician Primary Care Provider Unavailsuman e FINN, PHYSICIAN Primary Care Unavailable JAMES ALCAZAR Attending Unavailable Unavailable Primary Care Provider Unavailsuman e Wiley Osorio DO Primary Care Provider Bret Long Unavailable RICE RICE, WILEY WILEY M~[id number] Attending Unavailable RICE RICE, WILEY WILEY M~[id number] Primary Ca re Unavailable RICE RICE, WILEY WILEY M~[id number] Attending Unavailable RICE RICE, WILEY WILEY M~[id number] Primary Ca re Unavailable RICE RICE, WILEY WILEY M~[id number] Attending Unavailable RICE RICE, WILEY WILEY M~[id number] Primary Ca re Unavailable RICE RICE, WILEY WILEY M~[id number] Attending Unavailable RICE RICE, WILEY WILEY M~[id number] Primary Ca re Unavailable RICE RICE, WILEY WILEY M~[id number] Referring Unavailable RICE RICE, WILEY WILEY M~[id number] Primary Ca re Unavailable ITA REYES Admitting [...] Unavailable Homar Beltran MD Primary Care Provider [phone] EZRA, LITTLE Attending Unavailable LUIS, BERTO [...] Propensity to adverse reactions (disorder) [facility] Repository Medications Current Medications Medication Drug [...] WITH AUTO DIFFon BASOPHILS ABSOLUTE AUTO 0.1 [facility] Basophils/100 WBC (Bld) 0.5 % 0.2 - 2.0 % [facility] Eosinophils/100 WBC (Bld) 1.2 % 0.9 - 7.0 % [facility] Erythrocyte distribution width (RBC) [Ratio] 13.3 % 11.0 - 15.0 % [facility] Hematocrit (Bld) [Volume fraction] 34.6 % Low 36.0 - 48.0 % [facility] Hemoglobin (Bld) [Mass/Vol] 11.1 g/dL Low 12.0 - 16.0 g/dL [facility] IMMATURE GRANULOCYTES ABS AUTO 0.22 [facility] Immature granulocytes/100 WBC (Bld) 1.3 % High 0.0 - 0.5 % [facility] Interpretation and review of laboratory results Abnormal [facility] LYMPHOCYTES ABSOLUTE AUTO 3 [facility] Lymphocytes/100 WBC (Bld) 18.2 % Low 20.5 - 60.0 % [facility] MCH (RBC) [Entitic mass] 26.1 pg Low 26.7 - 34.0 pg [facility] MCHC (RBC) [Mass/Vol] 32.1 g/dL 29.9 - 35.2 g/dL [facility] MCV (RBC) [Entitic vol] 81.4 fL 81.0 - 99.0 fL [facility] MONOCYTES ABSOLUTE AUTO 1.3 [facility] Monocytes/100 WBC (Bld) 7.7 % 1.7 - 12.0 % [facility] NEUTROPHILS ABSOLUTE AUTO 11.6 [facility] Neutrophils/100 WBC (Bld) 71.1 % 43.0 - 75.0 % [facility] Platelet mean volume (Bld) [Entitic vol] 9.7 fL 9.5 - 13.5 fL [facility] EO # 0.2 [facility] PLT 349 [facility] RBC 4.25 [facility] WBC 16.3 [facility] Urinalysis macro (dipstick) panel (U)on 07-04-2024 Bilirubin, UA Negative Negative - 4(70) +++ mg/dL [facility] Blood, UA Negative Negative - 50 Angel Luis/mcL [facility] Clarity, UA Cloudy [facility] Color, UA Yellow [facility] Glucose, UA Negative Negative - 1999(110) ++++ mg/dL [facility] Interpretation and review of laboratory results Abnormal [facility] Ketones, UA Positive Negative - 160(16) ++++ mg/dL [facility] Comment on above: 40mg/dL Leukocytes, UA Few Negative - 500+++ Drew/mcL [facility] Comment on above: small Nitrite, UA Negative Negative - Positive [facility] pH, UA 7 5 - 9 [facility] Protein, UA Few Negative - 2000(20) ++++ mg/dL [facility] Comment on above: 30mg/dL Spec Grav, UA 1.025 1 - 1.03 [facility] Urobilinogen, UA 0.2 0.2 - 12 mg/dL [facility] Urinalysis macro (dipstick) panel (U)on 06-21-2024 Bilirubin, UA Negative Negative - 4(70) +++ mg/dL [facility] Blood, UA Negative Negative - 50 Angel Luis/mcL [facility] Clarity, UA Clear [facility] Color, UA Yellow [facility] Glucose, UA Negative Negative - 1999(110) ++++ mg/dL [facility] Interpretation and review of laboratory results Abnormal [facility] Ketones, UA Negative Negative - 160(16) ++++ mg/dL [facility] Leukocytes, UA Negative Negative - 500+++ Drew/mcL [facility] Nitrite, UA Negative Negative - Positive [facility] pH, UA 7 5 - 9 [facility] Protein, UA Positive Negative - 1999(20) ++++ mg/dL [facility] Comment on above: 30 Spec Grav, UA 1.02 1 - 1.03 [facility] Urobilinogen, UA 0.2 0.2 - 12 mg/dL [facility] Urinalysis macro (dipstick) panel (U)on 06-07-2024 Bilirubin, UA Negative Negative - 4(70) +++ mg/dL [facility] Blood, UA Negative Negative - 50 Angel Luis/mcL [facility] Clarity, UA Clear [facility] Color, UA Yellow [facility] Glucose, UA Negative Negative - 1999(110) ++++ mg/dL [facility] Interpretation and review of laboratory results Normal [facility] Ketones, UA Negative Negative - 160(16) ++++ mg/dL [facility] Leukocytes, UA Negative Negative - 500+++ Drew/mcL [facility] Nitrite, UA Negative Negative - Positive [facility] pH, UA 7 5 - 9 [facility] Protein, UA Negative Negative - 1999(20) ++++ mg/dL [facility] Spec Grav, UA 1.02 1 - 1.03 [facility] Urobilinogen, UA 0.2 0.2 - 12 mg/dL [facility] Urinalysis macro (dipstick) panel (U)on 05-09-2024 Bilirubin, UA Positive Negative - 4(70) +++ mg/dL [facility] Comment on above: small Blood, UA Negative Negative - 50 Angel Luis/mcL [facility] Clarity, UA Clear [facility] Color, UA Miryam [facility] Glucose, UA Negative Negative - 1999(110) ++++ mg/dL [facility] Interpretation and review of laboratory results Abnormal [facility] Ketones, UA Positive Negative - 160(16) ++++ mg/dL [facility] Comment on above: trace Leukocytes, UA Negative Negative - 500+++ Drew/mcL [facility] Nitrite, UA Negative Negative - Positive [facility] pH, UA 6 5 - 9 [facility] Protein, UA Positive Negative - 1999(20) ++++ mg/dL [facility] Comment on above: 30 mg Spec Grav, UA 1.03 1 - 1.03 [facility] Urobilinogen, UA 0.2 0.2 - 12 mg/dL [facility] Urinalysis macro (dipstick) panel (U)on 04-11-2024 Bilirubin, UA Negative Negative - 4(70) +++ mg/dL [facility] Blood, UA Negative Negative - 50 Angel Luis/mcL [facility] Clarity, UA Clear [facility] Color, UA Yellow [facility] Glucose, UA Negative Negative - 1999(110) ++++ mg/dL [facility] Interpretation and review of laboratory results Normal [facility] Ketones, UA Negative Negative - 160(16) ++++ mg/dL [facility] Leukocytes, UA Negative Negative - 500+++ Drew/mcL [facility] Nitrite, UA Negative Negative - Positive [facility] pH, UA 6.5 5 - 9 [facility] Protein, UA Negative Negative - 1999(20) ++++ mg/dL [facility] Spec Grav, UA 1.020 1 - 1.03 [facility] Urobilinogen, UA 0.2 0.2 - 12 mg/dL [facility] Urinalysis macro (dipstick) panel (U)on 03-14-2024 Bilirubin, UA Negative Negative - 4(70) +++ mg/dL [facility] Blood, UA Negative Negative - 50 Angel Luis/mcL [facility] Clarity, UA Clear [facility] Color, UA Yellow [facility] Glucose, UA Negative Negative - 1999(110) ++++ mg/dL [facility] Interpretation and review of laboratory results Normal [facility] Ketones, UA Negative Negative - 160(16) ++++ mg/dL [facility] Leukocytes, UA Negative Negative - 500+++ Drew/mcL [facility] Nitrite, UA Negative Negative - Positive [facility] pH, UA 7.0 5 - 9 [facility] Protein, UA Negative Negative - 1999(20) ++++ mg/dL [facility] Spec Grav, UA 1.020 1 - 1.03 [facility] Urobilinogen, UA 0.2 0.2 - 12 mg/dL [facility] Facesheeton 03-02-2023 Facesheet [id number] CD:[address] [facility] Ambulatory Visit Summaryon 0 02-27-2023 Ambulatory [...] pre-eclampsia Insomnia Migraines Overweight Normal [facility] RAD - Ultrasound Reporton RAD - Ultrasound Report [id number] D:[address] [facility] Physician Referralon 023 Physician Referral [id number] D:[address] [facility] INSULINon 11-08-2022 Insulin 7.7 uIU/mL Normal 2.6-24.9 [facility] Comment on above: Performed By: #### V ITAD, IRON #### [facility] [address] [address] [address] Chucho Jesus CBC AUTO DIFFon 11-07-2022 BASO # 0.0 103/ul Normal 0.0-0.1 [facility] Comment on above: Performed By: #### V ITAD, IRON #### [facility] [address] [place] [address] Dr. Chucho Jesus Basophils/100 WBC (Bld) 0.6 % Normal 0.2-2.0 [facility] Comment on above: Performed By: #### V ITAD, IRON #### [facility] [address] [place] [address] Dr. Chucho Jesus EO # 0.1 103/ul Normal 0.0-0.7 [facility] Comment on above: Performed By: #### V ITAD, IRON #### [facility] [address] [place] [address] Dr. Chucho Jesus Eosinophils/100 WBC (Bld) 1.4 % Normal 0.9-7.0 [facility] Comment on above: Performed By: #### V ITAD, IRON #### [facility] [address] [place] [address] Dr. Chucho Jesus Erythrocyte distribution width (RBC) [Ratio] 13.9 % Normal 11.0-15.0 [facility] Comment on above: Performed By: #### V ITAD, IRON #### [facility] [address] [place] [address] Dr. Chucho Jesus Hematocrit (Bld) [Volume fraction] 45.6 % Normal 36.0-48.0 [facility] Comment on above: Performed By: #### V ITAD, IRON #### [facility] [address] [place] [address] Dr. Chucho Jesus Hemoglobin (Bld) [Mass/Vol] 15.1 g/dL Normal 12.0-16.0 [facility] Comment on above: Performed By: #### V ITAD, IRON #### [facility] [address] [place] [address] Dr. Chucho Jesus IG # 0.01 10e3/ul Normal 0.00-0.03 [facility] Comment on above: Performed By: #### V ITAD, IRON #### [facility] [address] [place] [address] Dr. Chucho Jesus IG % 0.1 % Normal 0.0-0.5 [facility] Comment on above: Performed By: #### V ITAD, IRON #### [facility] [address] [place] [address] Dr. Cuhcho Jesus LYMPH # 1.9 103/ul Normal 1.2-3.8 [facility] Comment on above: Performed By: #### V ITAD, IRON #### [facility] [address] [place] [address] Dr. Chucho Jesus Lymphocytes/100 WBC (Bld) 26.3 % Normal 20.5-60.0 [facility] Comment on above: Performed By: #### V ITAD, IRON #### [facility] [address] [place] [address] Dr. Chucho Jesus MANUAL DIFF REQ NO Normal [facility] Comment on above: Performed By: #### V ITAD, IRON #### [facility] [address] [place] [address] Dr. Chucho Jesus MCH (RBC) [Entitic mass] 27.9 pg Normal 26.7-34.0 [facility] Comment on above: Performed By: #### V ITAD, IRON #### [facility] [address] [place] [address] Dr. Chucho Jesus MCHC (RBC) [Mass/Vol] 33.1 g/dL Normal 29.9-35.2 [facility] Comment on above: Performed By: #### V ITAD, IRON #### [facility] [address] [place] [address] Dr. Chucho Jesus MCV (RBC) [Entitic vol] 84.1 fL Normal 81.0-99.0 [facility] Comment on above: Performed By: #### V ITAD, IRON #### [facility] [address] [place] [address] Dr. Chucho Jesus MONO # 0.5 103/ul Normal 0.3-0.8 [facility] Comment on above: Performed By: #### V ITAD, IRON #### [facility] [address] [address] [address] Chucho Jesus Monocytes/100 WBC (Bld) 7.3 % Normal 1.7-12.0 [facility] Comment on above: Performed By: #### V ITAD, IRON #### [facility] [address] [place] [address] Dr. Chucho Jesus NEUT # 4.6 103/ul Normal 1.4-6.5 [facility] Comment on above: Performed By: #### V ITAD, IRON #### [facility] [address] [place] [address] Dr. Chucho Jesus Neutrophils/100 WBC (Bld) 64.3 % Normal 43.0-75.0 [facility] Comment on above: Performed By: #### V ITAD, IRON #### [facility] [address] [place] [address] Dr. Chucho Jesus Platelet mean volume (Bld) [Entitic vol] 10.9 fL Normal 9.5-13.5 [facility] Comment on above: Performed By: #### V ITAD, IRON #### [facility] [address] [place] [address] Dr. Chucho Jesus PLT 226 103/ul Normal 150-450 [facility] Comment on above: Performed By: #### V ITAD, IRON #### [facility] [address] [place] [address] Dr. Chucho Jesus RBC 5.42 106/ul Critically high 4.20-5.40 [facility] Comment on above: Performed By: #### V ITAD, IRON #### [facility] [address] [place] [address] Dr. Chucho Jesus WBC 7.2 103/ul Normal 4.0-11.0 [facility] Comment on above: Performed By: #### V ITAD, IRON #### [facility] [address] [place] [address] Dr. Chucho Jesus FREE THYROXINE INDEX T7on FTI 3.29 Normal 1.30-4.50 [facility] Comment on above: Performed By: #### V ITAD, IRON #### [facility] [address] [address] [address] Chucho Jesus T3U 35.0 % Normal 30.0-39.0 [facility] Comment on above: Performed By: #### V ITAD, IRON #### [facility] [address] [address] [address] Chucho Jesus T4 [Mass/Vol] 9.40 ug/dL Normal 4.80-13.90 [facility] Comment on above: Performed By: #### V ITAD, IRON #### [facility] [address] [address] [address] Chucho Jesus GLYCOHEMOGLOBIN A1Con 2022 ADA RECOMMENDATION SEE BELOW Normal [facility] Comment on above: Result Comment: ADA RECOMMENDED LIMIT 4.0 - 6.0 ADA THERAPEUTIC TARGET < 7.0 ACTION SUGGESTED > 7.0 Performed By: #### A 1C #### [facility] [address] [place] [address] Dr. Chucho Jesus Glucose [Mass/Vol] 94 mg/dL Normal [facility] Comment on above: Performed By: #### A 1C #### [facility] [address] [address] [address] Chucho Jesus HbA1c (Bld) [Mass fraction] 4.9 % Normal 4.5-6.2 [facility] Comment on above: Performed By: #### A 1C #### [facility] [address] [place] [address] Dr. Chucho Jesus IRONon 11-07-2022 Iron [Mass/Vol] 81.0 ug/dL Normal 50.0-170.0 [facility] Comment on above: Performed By: #### V ITAD, IRON #### [facility] [address] [place] [address] Dr. Chucho Jesus LIPID PROFILEon 11-07-2022 CHOL-HDL RATIO NORM SEE BELOW Normal [facility] Comment on above: Result Comment: 3.3 - 4.4 LOW RISK 4.4 - 7.1 AVERAGE RISK 7.1 - 11.0 MODERATE RISK >11.0 HIGH RISK Performed By: #### V ITAD, IRON #### [facility] [address] [address] [address] Chucho Jesus Cholesterol [Mass/Vol] 126 mg/dL Normal <=200 [facility] Comment on above: Performed By: #### V ITAD, IRON #### [facility] [address] [address] [address] Chucho Jesus Cholesterol in HDL [Mass/Vol] 38 mg/dL Critically low 40-60 [facility] Comment on above: Performed By: #### V ITAD, IRON #### [facility] [address] [address] [address] Chucho Jesus Cholesterol in LDL [Mass/Vol] 79.4 mg/dL Normal [facility] Comment on above: Performed By: #### V ITAD, IRON #### [facility] [address] [place] [address] Dr. Chucho Jesus Cholesterol.total/C holesterol in HDL [Mass ratio] 3.3 {ratio} Normal [facility] Comment on above: Performed By: #### V ITAD, IRON #### [facility] [address] [address] [address] Chucho Jesus HDL NORMAL > or = 60 mg/dl - LO W CARDIOVASCULAR RISK <40 mg/dl - HIGH CARDIOVASCULAR RISK Normal [facility] Comment on above: Performed By: #### V ITAD, IRON #### [facility] [address] [address] [address] Chucho Jesus LDL CALC NORMAL SEE BELOW Normal [facility] Comment on above: Result Comment: <100 mg/dl OPTIMAL 100 - 129 mg/dl NEAR OR ABOVE OPTIMAL 130 - 159 mg/dl BORDERLINE HIGH 160 - 189 mg/dl HIGH >190 mg/dl VERY HIGH Performed By: #### V ITAD, IRON #### [facility] [address] [address] [address] Chucho Jesus Triglyceride [Mass/Vol] 43 mg/dL Normal <=150 [facility] Comment on above: Performed By: #### V ITAD, IRON #### [facility] [address] [address] [address] Chucho Jesus VLDL CALC 8.6 mg/dL Normal [facility] Comment on above: Performed By: #### V ITAD, IRON #### [facility] [address] [place] [address] Dr. Chucho Jesus PROF 14(COMP METB)on 023 Albumin [Mass/Vol] 4.2 g/dL Normal 3.4-5.0 [facility] Comment on above: Performed By: #### V ITAD, IRON #### [facility] [address] [place] [address] Dr. Chucho Jesus Albumin/Globulin [Mass ratio] 1.1 {ratio} Normal [facility] Comment on above: Performed By: #### V ITSONIYA, IRON #### [facility] [address] [place] [address] Dr. Chucho Jesus ALP [Catalytic activity/Vol] 93 U/L Normal 46-116 [facility] Comment on above: Performed By: #### V ITAD, IRON #### [facility] [address] [place] [address] Dr. Chucho Jesus ALT [Catalytic activity/Vol] 16 U/L Normal 14-59 [facility] Comment on above: Performed By: #### V ITAD, IRON #### [facility] [address] [place] [address] Dr. Chucho Jesus Anion gap [Moles/Vol] 14.3 mmol/L Normal [facility] Comment on above: Performed By: #### V ITAD, IRON #### [facility] [address] [place] [address] Dr. Chucho Jesus AST [Catalytic activity/Vol] 16 U/L Normal 15-37 [facility] Comment on above: Performed By: #### V ITAD, IRON #### [facility] [address] [place] [address] Dr. Chucho Jesus Bilirubin [Mass/Vol] 1.0 mg/dL Normal 0.2-1.0 [facility] Comment on above: Performed By: #### V ITAD, IRON #### [facility] [address] [address] [address] Chucho Jesus Calcium [Mass/Vol] 9.4 mg/dL Normal 8.5-10.1 [facility] Comment on above: Performed By: #### V ITAD, IRON #### [facility] [address] [place] [address] Dr. Chucho Jesus Chloride [Moles/Vol] 103 mmol/L Normal 98-107 [facility] Comment on above: Performed By: #### V ITAD, IRON #### [facility] [address] [place] [address] Dr. Chucho Jesus CO2 [Moles/Vol] 24.9 mmol/L Normal 21.0-32.0 [facility] Comment on above: Performed By: #### V ITAD, IRON #### [facility] [address] [place] [address] Dr. Chucho Jesus Creatinine [Mass/Vol] 0.68 mg/dL Normal 0.55-1.02 [facility] Comment on above: Performed By: #### V ITAD, IRON #### [facility] [address] [place] [address] Dr. Chucho eJsus EGFR-AF GUATEMALAN >60 Normal >=60 [facility] Comment on above: Performed By: #### V ITAD, IRON #### [facility] [address] [place] [address] Dr. Chucho Jesus EGFR-NON AF GUATEMALAN >60 Normal >=60 [facility] Comment on above: Performed By: #### V ITAD, IRON #### [facility] [address] [place] [address] Dr. Chucho Jesus Globulin (S) [Mass/Vol] 3.9 g/dL Normal [facility] Comment on above: Performed By: #### V ITAD, IRON #### [facility] [address] [place] [address] Dr. Chucho Jesus Glucose [Mass/Vol] 89 mg/dL Normal 74-106 [facility] Comment on above: Performed By: #### V ITAD, IRON #### [facility] [address] [place] [address] Dr. Chucho Jesus Potassium [Moles/Vol] 4.2 mmol/L Normal 3.5-5.1 [facility] Comment on above: Performed By: #### V ITAD, IRON #### [facility] [address] [place] [address] Dr. Chucho Jesus Protein [Mass/Vol] 8.1 g/dL Normal 6.4-8.2 [facility] Comment on above: Performed By: #### V ITAD, IRON #### [facility] [address] [place] [address] Dr. Chucho Jesus Sodium [Moles/Vol] 138 mmol/L Normal 136-145 [facility] Comment on above: Performed By: #### V ITAD, IRON #### [facility] [address] [place] [address] Dr. Chucho Jesus Urea nitrogen [Mass/Vol] 9.0 mg/dL Normal 7.0-18.0 [facility] Comment on above: Performed By: #### V ITAD, IRON #### [facility] [address] [place] [address] Dr. Chucho Jesus Urea nitrogen/Creatinine [Mass ratio] 13.2 mg/mg Normal [facility] Comment on above: Performed By: #### V ITAD, IRON #### [facility] [address] [place] [address] Dr. Chucho Jesus TSHon 11-07-2022 TSH 1.668 uIU/mL Normal 0.358-3.740 [facility] Comment on above: Performed By: #### V ITAD, IRON #### [facility] [address] [place] [address] Dr. Chucho Jesus Covid-19 PCR ([facility])on SARS-CoV-2 (COVID-19) RNA DMITRY+probe Ql (Unsp spec) Not detected Normal NOT DETECTED [facility] Comment on above: Result Comment: When [...] for this test is supported by the [place] [employer] and Human Service's declaration that [...] Performed By: #### V ITAD, IVELISSE #### [facility] [address] [place] [address] Dr. Chucho Jesus Covid-19 PCR ([facility])on SARS-CoV-2 (COVID-19) RNA DMITRY+probe Ql (Unsp spec) Not detected Normal NOT DETECTED [facility] [facility] Comment on above: Result Comment: [...] for this test is supported by the [place] [employer] and Human Service's declaration that [...] used). Performed By: #### C VDTBH #### [facility] [address] [place] [address] Dr. Chucho Jesus INFLUENZA A AND B AGon 08-11 INFLUANEGH SEE BELOW Normal [facility] Comment on above: Result Comment: Nega tive for Flu A protein angiten. Infection due to Flu A cannot be ruled out. Flu A angiten in the sample may be below the detection limit of the test. Performed By: #### I NFLUAB #### [facility] [address] [place] [address] Dr. Chucho Jesus INFLUBNEGH SEE BELOW Normal [facility] Comment on above: Result Comment: Nega tive for Flu B protein antigen. Infection due to Flu B cannot be ruled out. Flu B antigen in the sample may be below the detection limit of the test. Performed By: #### I NFLUAB #### [facility] [address] [place] [address] Dr. Chucho Jesus INFLUENZA A AG Negative Normal NEGATIVE SEE COMMENT [facility] Comment on above: Performed By: #### I NFLUAB #### [facility] [address] [place] [address] Dr. Chucho Jesus INFLUENZA B AG Negative Normal NEGATIVE SEE COMMENT [facility] Comment on above: Performed By: #### I NFLUAB #### [facility] [address] [place] [address] Dr. Chucho Jesus Covid-19 PCR ([facility])on 05-07 SARS-CoV-2 (COVID-19) RNA DMITRY+probe Ql (Unsp spec) Not detected Normal NOT DETECTED [facility] Comment on above: Result Comment: When [...] for this test is supported by the [place] [employer] and [employer]'s declaration that [...] Performed By: #### V ITAD, IRON #### [facility] [address] [place] [address] Dr. Chucho Jesus INFLUENZA A AND B AGon 05-[facility] Normal [facility] Comment on above: Result Comment: Nega tive for Flu A protein angiten. Infection due to Flu A cannot be ruled out. Flu A angiten in the sample may be below the detection limit of the test. Performed By: #### V ITAD, IRON #### [facility] [address] [place] [address] Dr. Chucho Jesus INFLUBNEG SEE BELOW Normal [facility] Comment on above: Result Comment: Nega tive for Flu B protein antigen. Infection due to Flu B cannot be ruled out. Flu B antigen in the sample may be below the detection limit of the test. Performed By: #### V ITAD, IRON #### [facility] [address] [place] [address] Dr. Chucho Jesus INFLUENZA A AG Negative Normal NEGATIVE SEE COMMENT [facility] Comment on above: Performed By: #### V ITAD, IRON #### [facility] [address] [place] [address] Dr. Chucho Jesus INFLUENZA B AG Negative Normal NEGATIVE SEE COMMENT [facility] Comment on above: Performed By: #### V ITAD, IRON #### [facility] [address] [place] [address] Dr. Chucho Jesus INTERNAL CONTROLS Within Normal Limits Normal Wi thin Normal Limits [facility] Comment on above: Performed By: #### V ITAD, IRON #### [facility] [address] [place] [address] Dr. Chucho Jesus ER URINE PROFILEon 2 Bilirubin Ql (U) Negative Normal NEGATIVE [facility] Comment on above: Performed By: #### V ITAD, IRON #### [facility] [address] [place] [address] Dr. Chucho Jesus Clarity (U) CLEAR Normal CLEAR [facility] Comment on above: Performed By: #### V ITAD, IRON #### [facility] [address] [address] [address] Chucho Jesus Color (U) YELLOW Normal YELLOW [facility] Comment on above: Performed By: #### V ITAD, IRON #### [facility] [address] [place] [address] Dr. Chucho BAHENA A micrscopic examination will be performed if indicated. Normal [facility] Comment on above: Performed By: #### V ITAD, IRON #### [facility] [address] [place] [address] Dr. Chucho Jesus Glucose Ql (U) Negative Normal NEGATIVE [facility] Comment on above: Performed By: #### V ITAD, IRON #### [facility] [address] [place] [address] Dr. Chucho Jesus Hemoglobin Ql (U) Negative Normal NEGATIVE [facility] Comment on above: Performed By: #### V ITAD, IRON #### [facility] [address] [place] [address] Dr. Chucho Jesus Ketones Ql (U) >=80 Abnormal NEGATIVE [facility] Comment on above: Performed By: #### V ITAD, IRON #### [facility] [address] [place] [address] Dr. Chucho Jesus LEUKOCYTES Negative Normal NEGATIVE [facility] Comment on above: Performed By: #### V ITAD, IRON #### [facility] [address] [place] [address] Dr. Chucho Jesus Nitrite Ql (U) Negative Normal NEGATIVE [facility] Comment on above: Performed By: #### V ITAD, IRON #### [facility] [address] [address] [address] Chucho Jesus pH (U) 6.0 [pH] Normal 5-9 [facility] Comment on above: Performed By: #### V ITAD, IRON #### [facility] [address] [place] [address] Dr. Chucho Jesus Protein (U) [Mass/Vol] 100 mg/dL Abnormal NEGATIVE/ TRACE [facility] Comment on above: Performed By: #### V ITAD, IRON #### [facility] [address] [address] [address] Chucho Jesus SPEC GRAVITY >=1.030 Abnormal 1.005-<=1.025 [facility] Comment on above: Performed By: #### V ITAD, IRON #### [facility] [address] [place] [address] Dr. Chucho Jesus UR MICRO IND INDICATED Normal [facility] Comment on above: Performed By: #### V ITAD, IRON #### [facility] [address] [address] [address] Chucho Jesus Urobilinogen Qn (U) 0.2 {[place]'U}/dL Normal 0.2 - 1. 0 [facility] Comment on above: Performed By: #### V ITAD, IRON #### [facility] [address] [place] [address] Dr. Chucho Jesus URon 05-22-2022 , QUAL Negative Normal NEGATIVE [facility] Comment on above: Performed By: #### V ITAD, IRON #### [facility] [address] [place] [address] Dr. Chucho Jesus URINE MICROSCOPIC ONLYon BACTERIA NONE SEEN Normal NONE SEEN [facility] Comment on above: Performed By: #### V ITAD, IRON #### [facility] [address] [place] [address] Dr. Chucho Jesus Bacteria identified Cx Nom (U) NOT INDICATED Normal [facility] Comment on above: Performed By: #### V ITAD, IRON #### [facility] [address] [address] [address] Chucho Jesus CAST NONE SEEN Normal NONE SEEN [facility] Comment on above: Performed By: #### V ITAD, IRON #### [facility] [address] [place] [address] Dr. Chucho Jesus Crystals LM Nom (Urine sed) NONE SEEN Normal NONE SEEN [facility] Comment on above: Performed By: #### V ITAD, IRON #### [facility] [address] [address] [address] Chucho Jesus Epithelial cells LM Ql (Urine sed) FEW Abnormal NONE SEEN /RARE [facility] Comment on above: Performed By: #### V ITAD, IRON #### [facility] [address] [address] [address] Chucho Jesus MUCOUS MODERATE Abnormal NONE SEEN [facility] Comment on above: Performed By: #### V ITAD, IRON #### [facility] [address] [address] [address] Chucho Jesus RBC NONE SEEN Abnormal 0-2 [facility] Comment on above: Performed By: #### V ITAD, IRON #### [facility] [address] [address] [address] Chucho Jesus WBC NONE SEEN Normal NONE SEEN [facility] Comment on above: Performed By: #### V ITAD, IRON #### [facility] [address] [place] [address] Dr. Chucho Jesus XR LSPINE 2_3 VIEWSon [...] SHAINA CAMPOS Date: 2022-05-22 12:28 Normal [facility] INSULINon 04-25-2022 Insulin 10.4 uIU/mL Normal 2.6-24.9 [facility] Comment on above: Performed By: #### V ITAD, IRON #### [facility] [address] [address] [address] Chucho Jesus CBC AUTO DIFFon 04-24-2022 BASO # 0.0 103/ul Normal 0.0-0.1 [facility] Comment on above: Performed By: #### C BC #### [facility] [address] [address] [address] Chucho Jesus Basophils/100 WBC (Bld) 0.6 % Normal 0.2-2.0 [facility] Comment on above: Performed By: #### C BC #### [facility] [address] [address] [address] Chucho Jesus EO # 0.1 103/ul Normal 0.0-0.7 [facility] Comment on above: Performed By: #### C BC #### [facility] [address] [place] [address] Dr. Chucho Jesus Eosinophils/100 WBC (Bld) 1.8 % Normal 0.9-7.0 [facility] Comment on above: Performed By: #### C BC #### [facility] [address] [place] [address] Dr. Chucho Jesus Erythrocyte distribution width (RBC) [Ratio] 12.9 % Normal 11.0-15.0 [facility] Comment on above: Performed By: #### C BC #### [facility] [address] [place] [address] Dr. Chucho Jesus Hematocrit (Bld) [Volume fraction] 45.6 % Normal 36.0-48.0 [facility] Comment on above: Performed By: #### C BC #### [facility] [address] [place] [address] Dr. Chucho Jesus Hemoglobin (Bld) [Mass/Vol] 14.7 g/dL Normal 12.0-16.0 [facility] Comment on above: Performed By: #### C BC #### [facility] [address] [place] [address] Dr. Chucho Jesus IG # 0.02 10e3/ul Normal 0.00-0.03 [facility] Comment on above: Performed By: #### C BC #### [facility] [address] [place] [address] Dr. Chucho Jesus IG % 0.3 % Normal 0.0-0.5 [facility] Comment on above: Performed By: #### C BC #### [facility] [address] [place] [address] Dr. Chucho Jesus LYMPH # 1.6 103/ul Normal 1.2-3.8 [facility] Comment on above: Performed By: #### C BC #### [facility] [address] [place] [address] Dr. Chucho Jesus Lymphocytes/100 WBC (Bld) 24.5 % Normal 20.5-60.0 [facility] Comment on above: Performed By: #### C BC #### [facility] [address] [place] [address] Dr. Chucho Jesus MANUAL DIFF REQ NO Normal [facility] Comment on above: Performed By: #### C BC #### [facility] [address] [place] [address] Dr. Chucho Jesus MCH (RBC) [Entitic mass] 28.4 pg Normal 26.7-34.0 [facility] Comment on above: Performed By: #### C BC #### [facility] [address] [place] [address] Dr. Chucho Jesus MCHC (RBC) [Mass/Vol] 32.2 g/dL Normal 29.9-35.2 [facility] Comment on above: Performed By: #### C BC #### [facility] [address] [place] [address] Dr. Chucho Jesus MCV (RBC) [Entitic vol] 88.2 fL Normal 81.0-99.0 [facility] Comment on above: Performed By: #### C BC #### [facility] [address] [place] [address] Dr. Chucho Jesus MONO # 0.5 103/ul Normal 0.3-0.8 [facility] Comment on above: Performed By: #### C BC #### [facility] [address] [place] [address] Dr. Chucho Jesus Monocytes/100 WBC (Bld) 7.4 % Normal 1.7-12.0 [facility] Comment on above: Performed By: #### C BC #### [facility] [address] [place] [address] Dr. Chucho Jesus NEUT # 4.4 103/ul Normal 1.4-6.5 [facility] Comment on above: Performed By: #### C BC #### [facility] [address] [place] [address] Dr. Chucho Jesus Neutrophils/100 WBC (Bld) 65.4 % Normal 43.0-75.0 [facility] Comment on above: Performed By: #### C BC #### [facility] [address] [place] [address] Dr. Chucho Jesus Platelet mean volume (Bld) [Entitic vol] 9.9 fL Normal 9.5-13.5 [facility] Comment on above: Performed By: #### C BC #### [facility] [address] [place] [address] Dr. Chucho Jesus PLT 225 103/ul Normal 150-450 [facility] Comment on above: Performed By: #### C BC #### [facility] [address] [place] [address] Dr. Chucho Jesus RBC 5.17 106/ul Normal 4.20-5.40 [facility] Comment on above: Performed By: #### C BC #### [facility] [address] [place] [address] Dr. Chucho Jesus WBC 6.7 103/ul Normal 4.0-11.0 [facility] Comment on above: Performed By: #### C BC #### [facility] [address] [place] [address] Dr. Chucho Jesus FREE THYROXINE INDEX T7on FTI 3.29 Normal 1.30-4.50 [facility] Comment on above: Performed By: #### T 7, TSH, LIPID, CMP #### [facility] [address] [place] [address] Dr. Chucho Jesus T3U 27.0 % Critically low 30.0-39.0 [facility] Comment on above: Performed By: #### T 7, TSH, LIPID, CMP #### [facility] [address] [address] [address] Chucho Jesus T4 [Mass/Vol] 12.20 ug/dL Normal 4.80-13.90 [facility] Comment on above: Performed By: #### T 7, TSH, LIPID, CMP #### [facility] [address] [address] [address] Chucho Jesus GLYCOHEMOGLOBIN A1Con 2021 ADA RECOMMENDATION SEE BELOW Normal [facility] Comment on above: Result Comment: ADA RECOMMENDED LIMIT 4.0 - 6.0 ADA THERAPEUTIC TARGET < 7.0 ACTION SUGGESTED > 7.0 Performed By: #### A 1C #### [facility] [address] [place] [address] Dr. Chucho Jesus Glucose [Mass/Vol] 105 mg/dL Normal [facility] Comment on above: Performed By: #### A 1C #### [facility] [address] [place] [address] Dr. Chucho Jesus HbA1c (Bld) [Mass fraction] 5.3 % Normal 4.5-6.2 [facility] Comment on above: Performed By: #### A 1C #### [facility] [address] [place] [address] Dr. Chucho Jesus IRONon 04-24-2022 Iron [Mass/Vol] 48.0 ug/dL Critically low 50.0-170.0 [facility] Comment on above: Performed By: #### V ITAD, IRON #### [facility] [address] [place] [address] Dr. Chucho Jesus LIPID PROFILEon 04-24-2022 CHOL-HDL RATIO NORM SEE BELOW Normal [facility] Comment on above: Result Comment: 3.3 - 4.4 LOW RISK 4.4 - 7.1 AVERAGE RISK 7.1 - 11.0 MODERATE RISK >11.0 HIGH RISK Performed By: #### V ITAD, IRON #### [facility] [address] [place] [address] Dr. Chucho Jesus Cholesterol [Mass/Vol] 184 mg/dL Normal <=200 [facility] Comment on above: Performed By: #### V ITAD, IRON #### [facility] [address] [address] [address] Chucho Jesus Cholesterol in HDL [Mass/Vol] 55 mg/dL Normal 40-60 [facility] Comment on above: Performed By: #### V ITAD, IRON #### [facility] [address] [address] [address] Chucho Jesus Cholesterol in LDL [Mass/Vol] 116.6 mg/dL Normal [facility] Comment on above: Performed By: #### V ITAD, IRON #### [facility] [address] [address] [address] Chucho Jesus Cholesterol.total/C holesterol in HDL [Mass ratio] 3.3 {ratio} Normal [facility] Comment on above: Performed By: #### V ITAD, IRON #### [facility] [address] [place] [address] Dr. Cuhcho Jesus HDL NORMAL > or = 60 mg/dl - LO W CARDIOVASCULAR RISK <40 mg/dl - HIGH CARDIOVASCULAR RISK Normal [facility] Comment on above: Performed By: #### V ITAD, IRON #### [facility] [address] [address] [address] Chucho Jesus LDL CALC NORMAL SEE BELOW Normal [facility] Comment on above: Result Comment: <100 mg/dl OPTIMAL 100 - 129 mg/dl NEAR OR ABOVE OPTIMAL 130 - 159 mg/dl BORDERLINE HIGH 160 - 189 mg/dl HIGH >190 mg/dl VERY HIGH Performed By: #### V ITAD, IRON #### [facility] [address] [address] [address] Chucho Jesus Triglyceride [Mass/Vol] 62 mg/dL Normal <=150 [facility] Comment on above: Performed By: #### V ITAD, IRON #### [facility] [address] [address] [address] Chucho Jesus VLDL CALC 12.4 mg/dL Normal [facility] Comment on above: Performed By: #### V ITAD, IRON #### [facility] [address] [address] [address] Chucho Jesus PROF 14(COMP METB)on 022 Albumin [Mass/Vol] 3.7 g/dL Normal 3.4-5.0 [facility] Comment on above: Performed By: #### T 7, TSH, LIPID, CMP #### [facility] [address] [address] [address] Chucho Jesus Albumin/Globulin [Mass ratio] 0.9 {ratio} Normal [facility] Comment on above: Performed By: #### T 7, TSH, LIPID, CMP #### [facility] [address] [place] [address] Dr. Chucho Jesus ALP [Catalytic activity/Vol] 74 U/L Normal 46-116 [facility] Comment on above: Performed By: #### T 7, TSH, LIPID, CMP #### [facility] [address] [place] [address] Dr. Chucho Jesus ALT [Catalytic activity/Vol] 16 U/L Normal 14-59 [facility] Comment on above: Performed By: #### T 7, TSH, LIPID, CMP #### [facility] [address] [address] [address] Chucho Jesus Anion gap [Moles/Vol] 12.3 mmol/L Normal [facility] Comment on above: Performed By: #### T 7, TSH, LIPID, CMP #### [facility] [address] [place] [address] Dr. Chucho Jesus AST [Catalytic activity/Vol] 13 U/L Critically low 15-37 [facility] Comment on above: Performed By: #### T 7, TSH, LIPID, CMP #### [facility] [address] [address] [address] Chucho Jesus Bilirubin [Mass/Vol] 0.4 mg/dL Normal 0.2-1.0 [facility] Comment on above: Performed By: #### T 7, TSH, LIPID, CMP #### [facility] [address] [place] [address] Dr. Chucho Jesus Calcium [Mass/Vol] 8.9 mg/dL Normal 8.5-10.1 [facility] Comment on above: Performed By: #### T 7, TSH, LIPID, CMP #### [facility] [address] [address] [address] Chucho Jesus Chloride [Moles/Vol] 105 mmol/L Normal 98-107 [facility] Comment on above: Performed By: #### T 7, TSH, LIPID, CMP #### [facility] [address] [place] [address] Dr. Chucho Jesus CO2 [Moles/Vol] 26.6 mmol/L Normal 21.0-32.0 [facility] Comment on above: Performed By: #### T 7, TSH, LIPID, CMP #### [facility] [address] [place] [address] Dr. Chucho Jesus Creatinine [Mass/Vol] 0.68 mg/dL Normal 0.55-1.02 [facility] Comment on above: Performed By: #### T 7, TSH, LIPID, CMP #### [facility] [address] [place] [address] Dr. Chucho Jesus EGFR-AF GUATEMALAN >60 Normal >=60 [facility] Comment on above: Performed By: #### T 7, TSH, LIPID, CMP #### [facility] [address] [place] [address] Dr. Chucho Jesus EGFR-NON AF GUATEMALAN >60 Normal >=60 [facility] Comment on above: Performed By: #### T 7, TSH, LIPID, CMP #### [facility] [address] [place] [address] Dr. Chucho Jesus Globulin (S) [Mass/Vol] 4.3 g/dL Normal [facility] Comment on above: Performed By: #### T 7, TSH, LIPID, CMP #### [facility] [address] [place] [address] Dr. Chucho Jesus Glucose [Mass/Vol] 87 mg/dL Normal 74-106 [facility] Comment on above: Performed By: #### T 7, TSH, LIPID, CMP #### [facility] [address] [place] [address] Dr. Chucho Jesus Potassium [Moles/Vol] 3.9 mmol/L Normal 3.5-5.1 [facility] Comment on above: Performed By: #### T 7, TSH, LIPID, CMP #### [facility] [address] [address] [address] Chucho Jesus Protein [Mass/Vol] 8.0 g/dL Normal 6.4-8.2 [facility] Comment on above: Performed By: #### T 7, TSH, LIPID, CMP #### [facility] [address] [place] [address] Dr. Chucho Jesus Sodium [Moles/Vol] 140 mmol/L Normal 136-145 [facility] Comment on above: Performed By: #### T 7, TSH, LIPID, CMP #### [facility] [address] [place] [address] Dr. Chucho Jesus Urea nitrogen [Mass/Vol] 9.0 mg/dL Normal 7.0-18.0 [facility] Comment on above: Performed By: #### T 7, TSH, LIPID, CMP #### [facility] [address] [place] [address] Dr. Chucho Jesus Urea nitrogen/Creatinine [Mass ratio] 13.2 mg/mg Normal [facility] Comment on above: Performed By: #### T 7, TSH, LIPID, CMP #### [facility] [address] [place] [address] Dr. Chucho Jesus TSHon 04-24-2022 TSH 1.127 uIU/mL Normal 0.358-3.740 [facility] Comment on above: Performed By: #### T 7, TSH, LIPID, CMP #### [facility] [address] [place] [address] Dr. Chucho Jesus VITAMIN D 25 OHon 04-24-2022 VIT D 25-OH 35.2 ng/mL Normal [facility] Comment on above: Performed By: #### V ITAD, IRON #### [facility] [address] [place] [address] Dr. Chucho Jesus VIT D RANGES SEE BELOW Normal [facility] Comment on above: Result Comment: <20 ng/mL Vit D deficient 20 - <30 ng/mL Vit D insufficient 30 - 100 ng/mL Vit D sufficient >100 ng/mL Potential Toxicity Performed By: #### V ITAD, IRON #### [facility] [address] [address] [address] Chucho Jesus HCG ( test) Ql (U)O rdered By: James Churchill on 12-05-2020 Internal Control Pass [facility] Interpretation and review of laboratory results Normal [facility] POC , UrineOrdered By: James Churchill on 12-05-2020 HCG ( test) Ql (U) Negative Negative [facility] CTA CHEST WITH CONTRASTon CTA CHEST [...] MD/Edited Result - FINAL Normal [facility] Basic Metabolic Profon 02-19 (cont.) Normal [facility] Comment on above: Result Comment: Aver age GFR for 20-29 years old: 116 mL/min/1.73sq mChronic Kidney Disease: <60 mL/min/1.73sq mKidney failure: <15 mL/min/1.73sq meGFR calculated using average adult body mass. Additional eGFR calculator available at:http://www.[employer]/multiple_crcl_2012.htm Performed By: #### C DP, BMP, TROPI ####[address] [place] [address] Anion gap 14 mmol/L Normal 9-17 [facility] Comment on above: Performed By: #### C DP, BMP, TROPI ####[address] [place] [address] BUN/CRE Ratio 13 Normal 9-20 [facility] Comment on above: Performed By: #### C DP, BMP, TROPI ####[address] [place] [address] Calcium 9.2 mg/dL Normal 8.6-10.4 [facility] Comment on above: Performed By: #### C DP, BMP, TROPI ####[address] [place] [address] Chloride 105 mmol/L Normal 98-107 [facility] Comment on above: Performed By: #### C DP, BMP, TROPI ####[address] [place] [address] CO2 23 mmol/L Normal 20-31 [facility] Comment on above: Performed By: #### C DP, BMP, TROPI ####[address] [place] [address] Creatinine 0.55 mg/dL Normal 0.50-0.90 [facility] Comment on above: Performed By: #### C DP, BMP, TROPI ####[address] [place] [address] eGFR (non-black) mL/min/{1.73_m2} Normal >60 [facility] Comment on above: Performed By: #### C DP, BMP, TROPI ####[address] [place] [address] Glucose mass conc 96 mg/dL Normal 70-99 [facility] Comment on above: Performed By: #### C DP, BMP, TROPI ####[address] [place] [address] Potassium molar conc 3.6 mmol/L Low 3.7-5.3 [facility] Comment on above: Performed By: #### C DP, BMP, TROPI ####[address] [place] [address] Sodium 142 mmol/L Normal 135-144 [facility] Comment on above: Performed By: #### C DP, BMP, TROPI ####[address] [place] [address] Staging: Normal [facility] Comment on above: Result Comment: Stag e 1: Some kidney damage normal GFRStage 2: Mild kidney damage GFR 60-89Stage 3: Moderate kidney damage GFR 30-59Stage 4: Severe kidney damage GFR 15-29Stage 5: Severe kidney damage GFR <15ESRD - chronic treatment by dialysis or transplantPerformed at [address] [place] [address] Performed By: #### C DP, BMP, TROPI ####[address] [place] [address] Urea nitrogen 7 mg/dL Normal 6-20 [facility] Comment on above: Performed By: #### C DP, BMP, TROPI ####[address] , [place] [id number](258 CBC with Diffon 02-19-2017 Abs. Basophil 0.00 k/uL Normal 0.0-0.2 [facility] Comment on above: Result Comment: Perf ormed at [address] [place], [place] [address] Performed By: #### C DP, BMP, TROPI ####[address] [place] [address] Abs.Neutrophil (Seg) 7.10 k/uL Normal 1.8-8.0 [facility] Comment on above: Performed By: #### C DP, BMP, TROPI ####[address] , [id number] Basophils/100 WBC Auto (Bld) 0 % Normal [facility] Comment on above: Performed By: #### C DP, BMP, TROPI ####[address] [place] [address] Eosinophils 0.30 10*3/uL Normal 0.0-0.4 [facility] Comment on above: Performed By: #### C DP, BMP, TROPI ####[address] , [place] [address] Eosinophils/100 leukocytes 3 % Normal [facility] Comment on above: Performed By: #### C DP, BMP, TROPI ####[address] , [id number] Erythrocyte distribution width Auto Ratio (RBC) 13.6 % Normal 12.1-15.2 [facility] Comment on above: Performed By: #### C DP, BMP, TROPI ####[address] , [id number] Erythrocytes (RBC) 5.03 10*6/uL Normal 4.0-5.2 [facility] Comment on above: Performed By: #### C DP, BMP, TROPI ####[address] [place] [address] Hematocrit (HCT) 40.2 % Normal 36-46 [facility] Comment on above: Performed By: #### C DP, BMP, TROPI ####[address] [place] [address] Hemoglobin mass conc (Bld) 13.2 g/dL Normal 12.0-16.0 [facility] Comment on above: Performed By: #### C DP, BMP, TROPI ####[address] [place] [address] Lymphocytes 2.90 10*3/uL Normal 1.2-5.2 [facility] Comment on above: Performed By: #### C DP, BMP, TROPI ####[address] [place] [address] Lymphocytes/100 leukocytes 27 % Normal [facility] Comment on above: Performed By: #### C DP, BMP, TROPI ####[address] [place] [address] MCH 26.2 pg Normal 26-34 [facility] Comment on above: Performed By: #### C DP, BMP, TROPI ####[address] [place] [address] MCHC mass conc (RBC) 32.8 g/dL Normal 31-37 [facility] Comment on above: Performed By: #### C DP, BMP, TROPI ####[address] [place] [address] MCV 79.9 fL Low 80-100 [facility] Comment on above: Performed By: #### C DP, BMP, TROPI ####[address] [place] [address] Monocytes 0.60 10*3/uL Normal 0.0-1.0 [facility] Comment on above: Performed By: #### C DP, BMP, TROPI ####[address] [place] [address] Monocytes/100 leukocytes 5 % Normal [facility] Comment on above: Performed By: #### C DP, BMP, TROPI ####[address] [place] [address] Neutrophil (Seg) 65 % Normal [facility] Comment on above: Performed By: #### C DP, BMP, TROPI ####[address] [place] [address] Platelet mean volume (PMV) 9.6 fL Normal 6.0-12.0 [facility] Comment on above: Performed By: #### C DP, BMP, TROPI ####[address] [place] [address] Platelets 278 10*3/uL Normal 140-450 [facility] Comment on above: Performed By: #### C DP, BMP, TROPI ####[address] [place] [address] WBC (Leukocytes) 10.8 10*3/uL Normal 4.5-13.5 [facility] Comment on above: Performed By: #### C DP, BMP, TROPI ####[address] [place] [address] Auto Diff Performed NOT REPORTED Normal [facility] Comment on above: Performed By: #### C DP, BMP, TROPI ####[address] [place] [address] Erythrocyte morphology NOT REPORTED Normal [facility] Comment on above: Performed By: #### C DP, BMP, TROPI ####[address] [place] [address] Platelets NOT REPORTED Normal [facility] Comment on above: Performed By: #### C DP, BMP, TROPI ####[address] [place] [address] WBC Morphology NOT REPORTED Normal [facility] Comment on above: Performed By: #### C DP, BMP, TROPI ####[address] [place] [address] ED Noteon 02-19-2017 HIM IP Note OR Data Manager Normal [facility] ED Provider Noteon 7 HIM IP Note OR Data Manager Normal [facility] Troponinon 02-19-2017 Troponin T.cardiac mass conc ug/L Normal <0.03 [facility] Comment on above: Result Comment: Trop onin T results cannot be compared to Troponin-I results. Performed By: #### C DP, BMP, TROPI ####[address] , [place] [id number] Troponin I.cardiac mass conc Normal [facility] Comment on above: Result Comment: Refe rence Range: <0.03 Within reference range. 0.03-0.09 Possible myocardial damage.Repeat at appropriate intervals to rule out chronic elevation. >= 0.10 Indicative of myocardial damage.Performed at [address] [place], [place] [id number] [phone] Performed By: #### C DP, BMP, TROPI ####[address] [place] [address] Vital Signs Date Time Vital Sign Value Performing Clinician Facility 07-04-2024 12:13-0500 Body mass index (BMI) [Ratio] 35.84 kg/m2 Little LOWRY Work Phone: [facility] 07-04-2024 12:13-0500 Body weight 97.7 kg Little LOWRY Work Phone: [facility] 07-04-2024 12:13-0500 Diastolic blood pressure 64 mm[Hg] Little LOWRY Work Phone: [facility] 07-04-2024 12:13-0500 Systolic blood pressure 104 mm[Hg] Little LOWRY Work Phone: [facility] 06-21-2024 13:31-0500 Body mass index (BMI) [Ratio] 35.61 kg/m2 Little LOWRY Work Phone: [facility] 06-21-2024 13:31-0500 Body weight 97.07 kg Little Ezra PA Work Phone: [facility] 06-21-2024 13:31-0500 Diastolic blood pressure 72 mm[Hg] Little Tampa PA Work Phone: [facility] 06-21-2024 13:31-0500 Systolic blood pressure 116 mm[Hg] Little Tampa PA Work Phone: [facility] 06-07-2024 13:49-0500 Body mass index (BMI) [Ratio] 34.61 kg/m2 Berto Luis DO Work Phone: [facility] 06-07-2024 13:49-0500 Body weight 94.35 kg Berto Luis DO Work Phone: [facility] 06-07-2024 13:49-0500 Diastolic blood pressure 70 mm[Hg] Berto Luis DO Work Phone: [facility] 06-07-2024 13:49-0500 Systolic blood pressure 120 mm[Hg] Berto Luis DO Work Phone: [facility] 05-24-2024 14:26-0500 Body mass index (BMI) [Ratio] 33.75 kg/m2 Little Tampa PA Work Phone: [facility] 05-24-2024 14:26-0500 Body weight 91.99 kg Little Ezra PA Work Phone: [facility] 05-24-2024 14:26-0500 Diastolic blood pressure 70 mm[Hg] Little Tampa PA Work Phone: [facility] 05-24-2024 14:26-0500 Systolic blood pressure 108 mm[Hg] Little Ezra PA Work Phone: [facility] 05-09-2024 11:44-0500 Body mass index (BMI) [Ratio] 33.28 kg/m2 Berto Luis DO Work Phone: [facility] 05-09-2024 11:44-0500 Body weight 90.72 kg Berto Luis DO Work Phone: [facility] 05-09-2024 11:44-0500 Diastolic blood pressure 64 mm[Hg] Berto Luis DO Work Phone: [facility] 05-09-2024 11:44-0500 Systolic blood pressure 118 mm[Hg] Berto Luis DO Work Phone: [facility] 04-11-2024 10:37-0400 Body mass index (BMI) [Ratio] 31.12 kg/m2 Little LOWRY Work Phone: [facility] 04-11-2024 10:37-0400 Body weight 84.82 kg Little LOWRY Work Phone: [facility] 04-11-2024 10:37-0400 Diastolic blood pressure 68 mm[Hg] Little Christie PA Work Phone: [facility] 04-11-2024 10:37-0400 Systolic blood pressure 116 mm[Hg] Little LOWRY Work Phone: [facility] 03-14-2024 11:44-0400 Body mass index (BMI) [Ratio] 28.62 kg/m2 Berto Luis DO Work Phone: [facility] 03-14-2024 11:44-0400 Body weight 78.02 kg Berto Luis DO Work Phone: [facility] 03-14-2024 11:44-0400 Diastolic blood pressure 74 mm[Hg] Berto Luis DO Work Phone: [facility] 03-14-2024 11:44-0400 Systolic blood pressure 118 mm[Hg] Berto Luis DO Work Phone: [facility] 02-27-2023 14:39-0400 Blood Pressure Location Gary MORRIS [facility] 02-27-2023 14:39-0400 Diastolic blood pressure 66 mm[Hg] Gary MORRIS [facility] 02-27-2023 14:39-0400 Heart rate 70 /min Gary NILL [facility] 02-27-2023 14:39-0400 Respiratory rate 16 /min Gary NILL [facility] 02-27-2023 14:39-0400 Systolic blood pressure 106 mm[Hg] Gary NILL [facility] 01-08-2022 08:09-0400 Body temperature 98.01 [degF] Wiley Rice DO Work Phone: [employer] 01-08-2022 08:09-0400 Body weight 75.75 kg Wiley Rice DO Work Phone: [employer] 01-08-2022 08:09-0400 Diastolic blood pressure 71 mm[Hg] Wiley Rice DO Work Phone: [employer] 01-08-2022 08:09-0400 Heart rate 98 /min Wiley Rice DO Work Phone: [employer] 01-08-2022 08:09-0400 Systolic blood pressure 112 mm[Hg] Wiley Rice DO Work Phone: [employer] 12-10-2021 14:45-0400 Body height 166.37 cm Bret Long Other [employer] Other 12-10-2021 14:45-0400 Body mass index (BMI) [Ratio] 26.55 kg/m2 Bret Long Other [employer] Other 12-10-2021 14:45-0400 Body weight 73.48 kg Bret Long Other [employer] [employer] Other 12-10-2021 14:45-0400 Diastolic blood pressure 72 mm[Hg] Bret Long Other [employer] Other 12-10-2021 14:45-0400 Systolic blood pressure 103 mm[Hg] Bret Long Other [facility] [employer] Other 11-27-2021 14:01-0400 Body temperature 98.4 [degF] Wiley Rice DO Work Phone: [employer] 11-27-2021 14:01-0400 Body weight 74.84 kg Wiley Rice DO Work Phone: [employer] 11-27-2021 14:01-0400 Diastolic blood pressure 64 mm[Hg] Wiley Rice DO Work Phone: [facility] 11-27-2021 14:01-0400 Heart rate 98 /min Wiley Rice DO Work Phone: [employer] 11-27-2021 14:01-0400 Systolic blood pressure 121 mm[Hg] Wiley Rice DO Work Phone: [facility] 12-05-2020 19:26-0400 Heart rate 106 /min James Breece PA-C Work Phone: [facility] 12-05-2020 19:25-0400 Body temperature 98.29 [degF] James Breece PA-C Work Phone: [facility] 12-05-2020 19:25-0400 Body weight 97.98 kg James Breece PA-C Work Phone: [facility] 12-05-2020 19:25-0400 Diastolic blood pressure 86 mm[Hg] James Breece PA-C Work Phone: [facility] 12-05-2020 19:25-0400 Respiratory rate 16 /min James Breece PA-C Work Phone: [facility] 12-05-2020 19:25-0400 SaO2% (BldA) [Mass fraction] 97 % James Breece PA-C Work Phone: [facility] 12-05-2020 19:25-0400 Systolic blood pressure 126 mm[Hg] James Romeroparker LOWYR-Rubina Work Phone: [facility] Encounters Encounter Date Encounter Type Care Provider Facility Start: 07-04-2024 End: 07-04-2024 Bamboo flowsheet Little LOWRY Work Phone: [facility] Start: 07-04-2024 End: 07-04-2024 Bamboo flowsheet Little LOWRY Work Phone: [facility] Start: 07-04-2024 End: 07-04-2024 Clinisync Result Encounter Berto Luis DO Work Phone: [facility] External Department Unsolicited Start: 07-04-2024 End: 07-04-2024 ambulatory LITTLE CHRISTIE Not Available Start: 07-04-2024 End: 07-04-2024 Office outpatient visit 15 minutes Little LOWRY Work Phone: [facility] Comment on above: Third trimester preg lenin; 34 weeks gestation of Start: 06-21-2024 End: 06-21-2024 Bamboo flowsheet Little LOWRY Work Phone: [facility] Start: 06-21-2024 End: 06-21-2024 Bamboo flowsheet Little LOWRY Work Phone: [facility] Start: 06-21-2024 End: 06-21-2024 ambulatory LITTLE CHRISTIE Not Available Start: 06-21-2024 End: 06-21-2024 Office outpatient visit 15 minutes Little LOWRY Work Phone: [facility] Comment on above: Third trimester preg lenin; 33 weeks gestation of Start: 06-07-2024 End: 06-07-2024 Bamboo flowsheet Berto Luis DO Work Phone: [facility] Start: 06-07-2024 End: 06-07-2024 Bamboo flowsheet Berto Luis DO Work Phone: [facility] Start: 06-07-2024 End: 06-07-2024 ambulatory BERTO LUIS Not Available Start: 06-07-2024 End: 06-07-2024 Office outpatient visit 15 minutes Berto Luis DO Work Phone: [facility] Comment on above: 31 weeks gestation o f ; Third trimester ; Gastroesophageal reflux in Start: 05-24-2024 End: 05-24-2024 Office outpatient visit 15 minutes Little LOWRY Work Phone: [facility] Comment on above: Third trimester preg lenin; 29 weeks gestation of ; Upper respiratory tract infection, unspecified type Start: 05-24-2024 End: 05-24-2024 ambulatory LITTLE CHRISTIE Not Available Start: 05-24-2024 End: 05-24-2024 Bamboo flowsheet Little LOWRY Work Phone: [facility] Start: 05-24-2024 End: 05-24-2024 Bamboo flowsheet Little LOWRY Work Phone: [facility] Start: 05-09-2024 End: 05-09-2024 Bamboo flowsheet Berto Luis DO Work Phone: [facility] Start: 05-09-2024 End: 05-09-2024 Bamboo flowsheet Berto Luis DO Work Phone: [facility] Start: 05-09-2024 End: 05-09-2024 Office outpatient visit 15 minutes Berto Luis DO Work Phone: [facility] Comment on above: Second trimester pre gnancy; 26 weeks gestation of ; History of miscarriage Start: 05-09-2024 End: 05-09-2024 ambulatory BERTO LUIS Not Available Start: 04-11-2024 End: 04-11-2024 Bamboo flowsheet Little LOWRY Work Phone: [facility] Start: 04-11-2024 End: 04-11-2024 Bamboo flowsheet Little LOWRY Work Phone: [facility] Start: 04-11-2024 End: 04-11-2024 Office outpatient visit 15 minutes Little Christie PA Work Phone: [facility] Comment on above: Second trimester pre gnancy; 22 weeks gestation of ; Diabetes mellitus screening Start: 04-11-2024 End: 04-11-2024 ambulatory LITTLE EZRA Not Available Start: 03-23-2024 End: 03-23-2024 ambulatory BERTO R LUIS [facility] Start: 03-14-2024 End: 03-14-2024 Bamboo flowsheet Berto Luis DO Work Phone: [facility] Start: 03-14-2024 End: 03-14-2024 Bamboo flowsheet Berto Luis DO Work Phone: [facility] Start: 03-14-2024 End: 03-14-2024 Office outpatient visit 15 minutes Berto Luis DO Work Phone: [facility] Comment on above: Second [...] Alexandra/[place] Start: 02-23-2023 ambulatory Alexandr Bourgeois Facility:[facility] Start: 02-05-2023 ambulatory Gary MORRIS Facility:[facility] [...] . Facility:[facility] Start: 02-18-2022 ambulatory WILEY HARPERE M~[id number] [facility] Start: 02-12-2022 ambulatory WILEY WILEY M~[id number] [facility] Start: 02-12-2022 End: 02-12-2022 Telemedicine consultation with patient Wiley Huffman Rice DO Work Phone: [facility] Comment on above: Anxiety (Primary Dx) Start: 01-19-2022 Refill Luis Dipalma D O Work Phone: [facility] Start: 01-19-2022 Refill Luis Dipalma D O Work Phone: [facility] Start: 01-08-2022 End: 01-08-2022 ambulatory WILEY WILEY M~[id number] [facility] Start: 01-08-2022 End: 01-08-2022 Office outpatient visit 25 minutes Wiley M Rice DO Work Phone: [facility] Comment on above: Anxiety (Primary Dx) ; Hypotension, unspecified hypotension type Start: 01-08-2022 End: 01-08-2022 Patient encounter procedure Wiley M Rice DO Work Phone: [facility] Start: 12-11-2021 End: 12-11-2021 ambulatory WILEY WILEY M~[id number] [facility] Start: 12-10-2021 End: 12-10-2021 ambulatory Bret Long Other [facility] [employer] Other Start: 12-10-2021 Office outpatient ne w 45 minutes Bret Long [facility] Start: 11-27-2021 End: 11-27-2021 ambulatory WILEY Huffman~[id number] [facility] Start: 11-27-2021 End: 11-27-2021 Office outpatient new 30 minutes Wiley Huffman Rice DO Work Phone: [facility] Comment on above: Anxiety (Primary Dx) Start: 11-27-2021 End: 11-27-2021 Patient encounter procedure Wiley Huffman Rice DO Work Phone: [facility] Start: 11-25-2021 Telephone encounter Dana Kinsey [facility] Start: 12-05-2020 End: 12-05-2020 ambulatory PHYSICIAN NO [facility] Start: 12-05-2020 End: 12-05-2020 Office outpatient new 20 minutes James Churchill PA-C Work Phone: [facility] [place] Comment on above: Vaginal sore (Primar y Dx) Start: 02-19-2017 End: 02-19-2017 Emergency department patient visit [facility] Procedures Date Procedure Procedure Detail [...] [id number] Berto Smith, DO [address] [place] [address] [facility] Start: 07-04-2024 End: 07-04-2024 Patient encounter procedure 07/04/2024 11:50 AM EST Routine [facility] [address] [place] [id number] Little Christie PA [address] [place] [address] [facility] Start: 06-21-2024 End: 06-21-2024 Patient encounter procedure 06/21/2024 1:20 PM EST Routine [facility] [address] [place] [phone] Little Christie, PA [address] [place] [address] [facility] Start: 06-07-2024 End: 06-07-2024 Patient encounter procedure 06/07/2024 1:30 PM EST Routine [facility] [address] [facility] [address] [place] [phone] Berto Smith DO [address] [address] [place] [address] [facility] Start: 05-24-2024 End: 05-24-2024 Patient encounter procedure 05/24/2024 2:10 PM EST Routine [facility] [address] [place] [id number] Little Christie, PA [address] [place] [address] Arrived [facility] Comment on above: Arrived Start: 05-23-2024 End: 05-23-2024 Patient encounter procedure 05/23/2024 1:50 PM EST Routine [facility] [address] [place] [id number] Little Christie, PA [address] [place] [address] [facility] Start: 05-09-2024 End: 05-09-2025 US biophysical profile w non stress test US biophysical profile w non stress test Imaging Routine Second trimester 26 weeks gestation of History of miscarriage Expected: 05/09/2024 (Approximate), Expires: 05/09/2025 [facility] Work Phone: Comment on above: Expected: 05/09/2024 (Approximate), Expires: 05/09/2025 Start: 05-09-2024 End: 05-09-2025 US for [facility] Comment on above: Expected: 05/09/2024 (Approximate), Expires: 05/09/2025 Start: 05-09-2024 End: 05-09-2024 Patient encounter procedure [facility] Comment on above: Arrived Start: 04-11-2024 End: 04-11-2025 CBC panel - Blood by Automated count CBC Lab Routine Diabetes mellitus screening Expected: 04/11/2024 (Approximate), Expires: 04/11/2025 [facility] Work Phone: Comment on above: Expected: 04/11/2024 (Approximate), Expires: 04/11/2025 Start: 04-11-2024 End: 04-11-2025 Measurement of glucose 1 hour after glucose challenge for glucose tolerance test Glucose tolerance, 1 hour Lab Routine Diabetes mellitus screening Expected: 04/11/2024 (Approximate), Expires: 04/11/2025 [facility] Comment on above: Expected: 04/11/2024 (Approximate), Expires: 04/11/2025 Start: 04-11-2024 End: 04-11-2024 Patient encounter procedure [facility] Comment on above: Arrived Start: 03-14-2024 End: 03-14-2024 Patient encounter procedure 03/14/2024 11:20 AM EDT Routine [facility] [address] [facility] [place] [address] Berto Smith DO [address] [place] [address] Arrived [facility] Comment on above: Arrived Start: 03-06-2024 Influenza vaccination Influenza Vacc ine (#1) [facility] Start: 11-27-2022 Adolescent depressio n screening assessment Depression Screening [facility] Start: 03-06-2022 Influenza vaccination T [facility] Start: 02-07-2022 End: 02-07-2022 Patient encounter procedure 02/07/2022 Office Visit Family Medicine Wiley Osorio, DO [address] [place] [phone] [facility] Start: 12-19-2021 End: 12-19-2021 Patient encounter procedure 12/19/2021 Office Visit [facility] Wiley Osorio DO [address] [place] [phone] [facility] Start: 12-07-2021 COVID-19 Vaccine (3 - Booster for Moderna series) COVID-19 Vaccine (3 - Booster for Moderna series) [facility] Start: 11-27-2021 End: 11-27-2021 Patient encounter procedure 11/27/2021 Office Visit [facility] Wiley Osorio, [address] [place] [phone] [facility] Start: 11-24-2021 Adolescent depressio n screening assessment Depression Screening [facility] Start: 11-24-2021 [facility] Start: 11-24-2021 HIV screening HIV Screening [facility] Start: 11-24-2021 Social Influencers o f Health Screening Social Influencers of Health Screening [facility] Start: 03-06-2021 Influenza vaccination Sequenti al Influenza Vaccine (Season Ended) [facility] Start: 2017 Screening for malign ant neoplasm of cervix Cervical Cancer Screening: Pap Smear [facility] Start: 2015 DTaP,Tdap,and Td Vac cines (1 - Tdap) DTaP,Tdap,and Td Vaccines (1 - Tdap) [facility] Start: 2014 Hepatitis C screening Hepatitis C Sc reening [facility] Start: 2011 HIV screening HIV Screening [facility] Start: 2008 COVID-19 Vaccine (1) COVID-19 Vaccin e (1) [facility] Start: 2008 Depression screening using PHQ-9 (Patient Health Questionnaire 9) score Depression Screening (PHQ9) [facility] Start: 2007 HPV Vaccines (1 - 2- dose series) HPV Vaccines (1 - 2-dose series) [facility] Start: 2007 Vaccination for april n papillomavirus HPV Vaccines (1 - 2-dose series) [facility] Start: 2001 COVID-19 Vaccine (1) COVID-19 Vaccin e (1) [facility] Start: 1999 History and physical examination, annual for health maintenance Wellness Visit [facility] Start: 1996 Screening for Chlamy marilee trachomatis Chlamydia Screening [facility] Start: 1996 Screening for malign ant neoplasm of cervix Pap Smear [facility] Start: 1996 Tetanus vaccination Tetanus: Every 1 0yrs [facility] Chlamydia trachomati s rRNA assay Chlamydia/GC/Trichomon as Amplified RNA Microbiology Routine Vaginal sore Ordered: 12/05/2020 [facility] Comment on above: Ordered: 12/05/2020 HSV by PCR Superfici al Site HSV by PCR Superficial Site Lab Routine Vaginal sore Ordered: 12/05/2020 [facility] Comment on above: Ordered: 12/05/2020 Neisseria gonorrhoea e nucleic acid detection Chlamydia/Gonorrhoeae Amplified RNA Microbiology Routine Vaginal sore Ordered: 12/05/2020 [facility] Comment on above: Ordered: 12/05/2020 Trichomonas vaginali s Amplified RNA Trichomonas vaginalis Amplified RNA Microbiology Routine Vaginal sore Ordered: 12/05/2020 [facility] Comment on above: Ordered: 12/05/2020 Immunizations Immunization Date Immunization Notes Care Provider Fa cility 07-09-2021 SARS-CoV-2 (COVID-19 ) mRNA-1273 vaccine Gary MORR[facility] 06-08-2021 SARS-CoV-2 (COVID-19 ) mRNA-1273 vaccine Gary [facility]ORR[facility] 04-10-2011 influenza virus vaccine, unspecified formulation Berto Luis DO Work Phone: [facility] Payers Date Payer Category Payer Private Health Insurance [facility] MEDICAID [id number] 2021 Medicaid [id number] 2020 Medicaid [id number]. [id number] 2016 Unknown [id number] 2013 Unknown [id number] 1996 Unknown [id number] 2.16.840.1.769212.3.579.2. 903 1996 Unknown [id number] 2.16.840.1.850500.3.579.2. 114 1996 Unknown [id number] 2.16.840.1.761712.3.579.2. 114 1996 Unknown [id number] 2.16.840.1.867767.3.579.2. 114 1996 Unknown [id number] 2.16.840.1.792234.3.579.2. 114 1996 Unknown [id number] 2.16.840.1.474033.3.579.2. 114 1996 Unknown [id number] 2.16.840.1.719195.3.579.2. 593 1996 Unknown [id number] 2.16.840.1.490054.3.579.2. 593 1996 Unknown [id number] 2.16.840.1.548742.3.579.2. 593 1996 Unknown [id number] 2.16.840.1.200230.3.579.2. 593 1996 Unknown [id number] 2.16.840.1.572357.3.579.2. 593 1996 Unknown [id number] 2.16.840.1.199746.3.579.2. 593 1996 Unknown [id number] 2.16.840.1.299639.3.579.2. 593 1996 Unknown [id number] 2.16.840.1.591445.3.579.2. 727 1996 Unknown [id number] 2.16.840.1.679811.3.579.2. 1286 1996 Unknown [id number] 2.16.840.1.879990.3.579.2. 1286 1996 Unknown [id number] 2.16.840.1.074622.3.579.2. 1258 1996 Unknown [id number] 2.16.840.1.675997.3.579.2. 1259 1996 Unknown [id number] 2.16.840.1.164511.3.579.2. 125 1996 Unknown [id number] 2.16.840.1.302109.3.579.2. 125 1996 Unknown [id number] 2.16.840.1.450294.3.579.2. 125 1996 Unknown [id number] 2.16.840.1.609250.3.579.2. 1259 1996 Unknown [id number] 2.16.840.1.138430.3.579.2. 125 1996 Unknown [id number] 2.16.840.1.384774.3.579.2. 1259 1996 Unknown [id number] 2.16.840.1.646422.3.579.2. 1259 1996 Unknown [id number] 2.16.840.1.212657.3.579.2. 1259 1996 Unknown [id number] 2.16.840.1.453113.3.579.2. 1259 1960 Unknown [id number] 2.16.840.1.916670.3.579.2. 727 1959 Medicaid [id number] 1959 Self-pay 1959 Unknown [id number] 1959 Unknown [id number] 1959 Unknown [id number] Unknown [id number] 2.16.840.1.638565.3.579.2. 531 Social History Date Type Detail Facility Start: 12-05-2020 End: 02-27-2023 Tobacco smoking status OHIS Never smoker [facility] Start: 12-05-2020 End: 11-27-2021 Tobacco use and exposure Never used [facility] Start: 12-05-2020 Alcohol intake Current drinke r of alcohol (finding) [facility] Start: 12-05-2020 End: 11-27-2021 History SDOH Alcohol Frequency 1 [facility] Start: 12-05-2020 Alcohol Comment occ [facility] Start: 1996 Sex Assigned At Not on file [facility] Start: 11-17-2021 End: 02-12-2022 Exposure to SARS-CoV-2 (event) Not sure [facility] Tobacco smoking stat [facility] Tobacco smoking consumption unknown [facility] Start: 11-27-2021 End: 05-24-2024 Alcohol intake Lifetime non-drinker (finding) [facility] Start: 1995 Sex Assigned At Female T [facility] Start: 12-17-2023 Sex Assigned At F [facility] Tobacco smoking status Never [facility] Start: 03-28-2023 Tobacco smoking stat [facility] Ex-smoker [facility] History of tobacco use Current smoker [facility] History of tobacco use Cigarette Smoker [facility] Start: 12-17-2023 History of Social function [facility] Start: 11-17-2023 [facility] Start: 01-19-2023 Gender identity Identifies as female gender (finding) [facility] Healthcare Functional Status Date Assessment Result [...] Narrative Reason for Appointment: Patient ID: Leslie Fodr is a 29 y.o. female who presents [...] nursing note reviewed. Exam conducted with a platen press operator present. Vitals: Estimated body mass index is [...] of: ESSENCE Haley documented in this encounter [facility] 06-21-2024 History of Present illness Narrative Reason [...] nursing note reviewed. Exam conducted with a platen press operator present. Vitals: Estimated body mass index is [...] Little Christie PA-C documented in this encounter [facility] 06-07-2024 History of Present illness Narrative [...] nursing note reviewed. Exam conducted with a platen press operator present. Vitals: Estimated body mass index is [...] Berto Smith DO documented in this encounter [facility] 05-24-2024 History of Present illness Narrative [...] of: ESSENCE Haley documented in this encounter [facility] 05-09-2024 History of Present illness Narrative [...] nursing note reviewed. Exam conducted with a platen press operator present. Vitals: Estimated body mass index is [...] Berto Smith DO documented in this encounter [facility] 04-11-2024 History of Present illness Narrative [...] of: ESSENCE Haley documented in this encounter [facility] 03-14-2024 History of Present illness Narrative [...] nursing note reviewed. Exam conducted with a platen press operator present. Vitals: Estimated body mass index is [...] Berto Smith DO documented in this encounter [facility] 02-27-2023 Note Chief Complaint consultation for [...] with excisional biopsy under local anesthesia at [facility]; call with problems/questions. Follow-up No [...] (COVID-19) mRNA-1273 vaccine 06/08/[address] [facility] Comment on above: Result Comment: Elec [...] at later date. documented in this encounter [facility] 01-08-2022 History of Present illness Narrative [...] due to buspirone. documented in this encounter [facility] 12-10-2021 Evaluation note Encounter Date Diagnosis Assessment Notes Dec, Irritable bowel syndrome with diarrhea (ICD-10 - K58.0) Continue medications without change Dec, Epigastric pain (ICD-10 - R10.13) Dec, Chronic nausea (ICD-10 - R11.0) Dec, Family history of carcinoma in situ of anal canal (ICD-10 - Z84.89) Dec, Other Continue Zofran prn Pt to call if symptoms worsen [facility] Other 05-25-2022 History of Present illness Narrative* Wiley Osorio DO - 11/27/2021 2:00 PM EDT Subjective Patient ID: Leslie Ford is a 26 y.o. female. Chief Complaint Patient presents with [facility] 26 y.o. female presents [facility]. History of anxiety and depression. Has [...] it ( July 2017) documented in this [facility]05-23-2022 History of Present illness Narrative* Dana Rosario [...] like me to do? documented in this [facility]06-02-2021 History of Present illness Narrative* James Churchill PA-C - 12/05/2020 8:22 PM EDT Images from the original note were not included. Patient Name: [facility] Location: [place] [address] [facility] [id number] Date Of : Date Of Visit: 1995 12/05/2020 MRN# Provider: [id number] James Churchill PA-C Chief Complaint Patient presents [...] urine from irritatingthe sores. ? Take an umiz-otq-alqgdee pain medicine, such as acetaminophen (Tylenol), ibuprofen [...] Log into your personal health record on [email or web address] and enter E579 in the Education box to learn more about Genital Herpes: Care Instructions. Current as of: August 31, 2019 Content Version: 12.8 [employer]. Care instructions adapted under license by your healthcare professional. If you have questions about a medical condition or this instruction, always ask your healthcare professional. [employer] disclaims any warranty or liability for your use of this information. documented in this [id number] Instructions* Patient Instructions* James Churchill PA-C - [...] urine from irritatingthe sores. ? Take an bgtf-vaz-bwlrxus pain medicine, such as acetaminophen (Tylenol), ibuprofen [...] Log into your personal health record on [email or web address] and enter E579 in the Education box to learn more about Genital Herpes: Care Instructions. Current as of: August 31, 2019 Content Version: 12.8 [employer]. Care instructions adapted under license by your healthcare professional. If you have questions about a medical condition or this instruction, always ask your healthcare professional. [employer] disclaims any warranty or liability for your use of this information. [facility] No data available for this section [facility] note* Diagnosis Vaginal sore- Primary documented in this encounter [facility] note* Diagnosis Anxiety- Primary Anxiety state, unspecified [facility] Diagnosis Anxiety- Primary Anxiety state, unspecified Hypotension, unspecified hypotension type [facility] Diagnosis Anxiety- Primary Anxiety state, unspecified [facility] Diagnosis Second trimester state, incidental 22 weeks gestation of Diabetes mellitus screening Screening for diabetes mellitus [facility] Second trimester state, incidental [...] Reported* Type Description Date Medical History IBS Aula 7 Other Hospital Discharge instructions No data available for this section [facility] Progress note No data available for this section [facility] Summary Purpose Family History No Family History Records FoundNo Family History Records FoundNo Family History Records FoundNo Family History Records FoundNo Family History Records FoundNo Family History Records FoundNo Family History Records FoundNo Family History Records FoundNo Family History Records Found Advance Directives No Advanced Directives Records FoundDocuments on File Type Date Recorded Patient Business Integration Manager Expl anation Advance Directives and Living Will Documents on File Type Date Recorded Patient Business Integration Manager Expl anation Power of Student Support Advisor Additional Source Comments INFORMATION SOURCE (unrecogn ized section and content) DATE CREATED AUTHOR 12/30/2017 [facility] DATE CREATED AUTHOR AUTHOR'S ORGANIZ ATION 12/06/2020 [facility] DATE CREATED AUTHOR AUTHOR'S ORGANIZ ATION 02/16/2022 [facility] DATE CREATED AUTHOR AUTHOR'S ORGANIZ ATION 02/27/2022 [facility] DATE CREATED AUTHOR AUTHOR'S ORGANIZ ATION 11/14/2022 [facility] DATE CREATED AUTHOR AUTHOR'S ORGANIZ ATION 03/02/2023 [facility] DATE CREATED AUTHOR AUTHOR'S ORGANIZ ATION 07/05/2023 [facility] DATE CREATED AUTHOR AUTHOR'S ORGANIZ ATION 03/25/2024 [facility] DATE CREATED AUTHOR AUTHOR'S ORGANIZ ATION 07/05/2024 [facility] dical Specialists EPIC Reason for [...] Care Teams (unrecognized sec tion and content) Shipping/Receiving Manager Relationship Specialty Start Date End Date Lalito Osoriolenigel Huffman, DO [address] [place] [phone] PCP - General Family Medicine 11/27/21 Shipping/Receiving Manager Relationship Specialty Start Date End Date Devon Wiley M, DO [address] [place] [phone] PCP - General Family Medicine 11/27/21 Shipping/Receiving Manager Relationship Specialty Start Date End Date Devon Wiley Nathanael DO [address] [place] [phone] PCP - General Family Medicine 11/27/21 Shipping/Receiving Manager Relationship Specialty Start Date End Date Homar Beltran MD [address] [facility], [place] [address] PCP - General Family Medicine 01/20/23 Shipping/Receiving Manager Relationship Specialty Start Date End Date Homar Beltran MD [address] [facility], [place] [address] PCP - General Family Medicine 01/20/23 Shipping/Receiving Manager Relationship Specialty Start Date End Date Homar Beltran MD [address] [facility], [place] [address] PCP - General Family Medicine 01/20/23 Shipping/Receiving Manager Relationship Specialty Start Date End Date Homar Beltran MD [address] [facility], [place] [address] PCP - General Family Medicine 01/20/23 Shipping/Receiving Manager Relationship Specialty Start Date End Date Homar Beltran MD [address] [facility], [place] [address] PCP - General Family Medicine 01/20/23 Shipping/Receiving Manager Relationship Specialty Start Date End Date Homar Beltran MD [address] [facility], [place] [address] PCP - General Family Medicine 01/20/23 Shipping/Receiving Manager Relationship Specialty Start Date End Date Homar Beltran MD [address] [facility], [place] [address] PCP - General Family Medicine 01/20/23 Shipping/Receiving Manager Relationship Specialty Start Date End Date Homar Beltran MD [address] [facility], [place] [address] PCP - General Family Medicine 01/20/23 Shipping/Receiving Manager Relationship Specialty Start Date End Date Homar Beltran MD [address] [facility], [place] [address] PCP - [facility] 01/20/23 Shipping/Receiving Manager Relationship Specialty Start Date End Date Homar Beltran MD [address] [facility], [place] [address] PCP - [facility] 01/20/23 Shipping/Receiving Manager Relationship Specialty Start Date End Date Homar Beltran MD [address] [facility], [place] [address] PCP - General Family [facility] 01/20/23 FOR RECORDS PERTAINING TO PATIENTS WHO [...] BE BASED ON THE PRIMARY CLINICAL RECORDS. [facility] [employer] [facility]. provides no warranty or guarantee of the accuracy or completeness of information in this document.
[2024-07-18 09:12] VITALS: BP 116/86; PULSE 120
== END 2024-07-18 09:35 | disposition home or self-care (01) ==
LOC: FBCO 00:29 → FBC 09:07
PROVIDERS: PCP Family Medicine; Visit Provider Obstetrics & Gynecology
DX: O26.893 Other specified pregnancy related conditions, third trimester (principal); Z3A.36 36 weeks gestation of pregnancy
CPT/HCPCS: 59025; 87081

== ENCOUNTER 2024-07-18 20:46 | Outpatient (REF) | payer OTHER, SELFPAY ==
--- OUTSIDE RECORDS SUMMARY | 2024-07-18 20:50 | XMS_ITS | CCD ---
Author Organization [facility] Care Team Providers Care 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 Name Role Phone KIM SUTHERLAND Unavailable Unavailable WILLY CONKLIN Unavailable Unavailable HOMAR BELTRAN Unavailable Unavailable HOMAR BELTRAN Unavailable Unavailable No, Physician Primary Care Provider Unavailsuman e FINN, PHYSICIAN Primary Care Unavailable JAMES ALCAZAR Attending Unavailable Unavailable Primary Care Provider Unavailsuman e Wiley Osorio DO Primary Care Provider Bret Long Unavailable RICE RICE, WILEY WILEY M~[id number] Attending Unavailable RICE RICE, WILEY WILEY M~[id number] Primary Ca re Unavailable RICE RICE, WILEY WILEY M~[id number] Attending Unavailable RICE RICE, WILEY WILEY M~[id number] Primary Ca re Unavailable RICE RICE, WILEY WILEY M~[id number] Attending Unavailable RICE RICE, WILEY WILEY M~[id number] Primary Ca re Unavailable RICE RICE, WILEY WILEY M~[id number] Attending Unavailable RICE RICE, WILEY WILEY M~[id number] Primary Ca re Unavailable RICE RICE, WILEY WILEY M~[id number] Referring Unavailable RICE RICE, WILEY WILEY M~[id number] Primary Ca re Unavailable ITA REYES Admitting [...] Unavailable Homar Beltran MD Primary Care Provider [phone] EZRA, LITTLE Attending Unavailable LUIS, BERTO [...] Medication Allergies] Propensity to adverse reactions (disorder) [facility] Repository Medications Current Medications Medication Drug Class(es) Dates Sig (Normalized) Sig (Original) aspirin 81 mg delayed release oral tablet (20 sources) Platelet Aggregation Inhibitor, Nonsteroidal Anti-inflammatory Drug [...] 30 each 1 01/08/2022 03/09/2022 Active valACYclovir 500 mg oral tablet (3 sources) Herpesvirus Nucleoside Analog DNA Polymerase Inhibitor, Herpes Simplex Virus Nucleoside Analog DNA Polymerase Inhibitor, Herpes Zoster Virus Nucleoside Analog DNA Polymerase Inhibitor Start: 07-18-2024 End: 08-17-2024 take 1 tablet by mouth once daily valACYclovir (Valtrex) 500 MG tablet Indications: H/O cold sores Take 1 tablet (500 mg) by mouth Daily 30 tablet 11 07/18/2024 08/17/2024 Active Start: 12-05-2020 End: 12-15-2020 take 1 tablet [...] diarrhea Onset: 2 Resolved: 2 Chronic Other infections; including parasitic (2 sources) H/O: viral illness; Translations: [Personal history of other infectious and parasitic diseases] 07-18-2024 Episodic Other nutritional; endocrine; and metabolic disorders (1 source) Overweight 02-23-2023 Episodic Other nutritional; endocrine; and metabolic disorders (1 source) Overweight in adulthood with body mass index of 25 or more but less than 30 02-27-2023 Episodic Other and delivery including normal (20 sources) Second trimester ; Translations: [Encounter for [...] of ] 04-11-2024 Episodic Residual codes; unclassified (20 sources) Gestation period, 26 weeks; Translations: [26 weeks gestation of ] Onset: 4 05-09-2024 Episodic Residual codes; unclassified (20 sources) H/O: miscarriage; Translations: [Personal history of [...] of ] 05-24-2024 Episodic Residual codes; unclassified (8 sources) Gestation period, 34 weeks; Translations: [34 weeks gestation of ] Onset: 4 07-04-2024 Episodic Residual codes; unclassified (2 sources) Gestation period, 36 weeks; Translations: [36 weeks gestation of ] 07-18-2024 Episodic Spondylosis; intervertebral disc disorders; other back [...] Range Facility Urinalysis macro (dipstick) panel (U)on 07-18-2024 Bilirubin, UA Negative Negative - 4(70) +++ mg/dL [facility] Blood, UA Negative Negative - 50 Angel Luis/mcL [facility] Clarity, UA Clear [facility] Color, UA Miryam [facility] Glucose, UA Negative Negative - 2000(110) ++++ mg/dL [facility] Interpretation and review of laboratory results Abnormal [facility] Ketones, UA Positive Negative - 160(16) ++++ mg/dL [facility] Comment on above: 15 Leukocytes, UA Negative Negative - 500+++ Drew/mcL [facility] Nitrite, UA Negative Negative - Positive [facility] pH, UA 7 5 - 9 [facility] Protein, UA Positive Negative - 1999(20) ++++ mg/dL [facility] Comment on above: 30 Spec Grav, UA 1.025 1 - 1.03 [facility] Urobilinogen, UA 0.2 0.2 - 12 mg/dL [facility] ALL CBC WITH AUTO DIFFon BASOPHILS ABSOLUTE AUTO 0.1 [facility] Basophils/100 WBC (Bld) 0.5 % 0.2 - 2.0 % [facility] Eosinophils/100 WBC (Bld) 1.2 % 0.9 - 7.0 % [facility] Erythrocyte distribution width (RBC) [Ratio] 13.3 % 11.0 - 15.0 % [facility] Hematocrit (Bld) [Volume fraction] 34.6 % Low 36.0 - 48.0 % [facility] Hemoglobin (Bld) [Mass/Vol] 11.1 g/dL Low 12.0 - 16.0 g/dL [facility] IMMATURE GRANULOCYTES ABS AUTO 0.22 High [facility] Immature granulocytes/100 WBC (Bld) 1.3 % High 0.0 - 0.5 % [facility] Interpretation and review of laboratory results Abnormal [facility] LYMPHOCYTES ABSOLUTE AUTO 3 [facility] Lymphocytes/100 WBC (Bld) 18.2 % Low 20.5 - 60.0 % [facility] MCH (RBC) [Entitic mass] 26.1 pg Low 26.7 - 34.0 pg [facility] MCHC (RBC) [Mass/Vol] 32.1 g/dL 29.9 - 35.2 g/dL [facility] MCV (RBC) [Entitic vol] 81.4 fL 81.0 - 99.0 fL [facility] MONOCYTES ABSOLUTE AUTO 1.3 High [facility] Monocytes/100 WBC (Bld) 7.7 % 1.7 - 12.0 % [facility] NEUTROPHILS ABSOLUTE AUTO 11.6 High [facility] Neutrophils/100 WBC (Bld) 71.1 % 43.0 - 75.0 % [facility] Platelet mean volume (Bld) [Entitic vol] 9.7 fL 9.5 - 13.5 fL [facility] TBH EO # 0.2 [facility] TB PLT [address] [facility] RBC 4.[address] [facility] WBC 16.3 High [facility] Urinalysis macro (dipstick) panel (U)on 07-04-2024 Bilirubin, UA Negative Negative - 4(70) +++ mg/dL [facility] Blood, UA Negative Negative - 50 Angel Luis/mcL [facility] Clarity, UA Cloudy [facility] Color, UA Yellow [facility] Glucose, UA Negative Negative - 1999(110) ++++ mg/dL [facility] Interpretation and review of laboratory results Abnormal [facility] Ketones, UA Positive Negative - 160(16) ++++ mg/dL [facility] Comment on above: 40mg/dL Leukocytes, UA Few Negative - 500+++ Drew/mcL [facility] Comment on above: small Nitrite, UA Negative Negative - Positive [facility] pH, UA 7 5 - 9 [facility] Protein, UA Few Negative - 1999(20) ++++ mg/dL [facility] Comment on above: 30mg/dL Spec Grav, UA 1.025 1 - 1.03 [facility] Urobilinogen, UA 0.2 0.2 - 12 mg/dL [facility] Urinalysis macro (dipstick) panel (U)on 06-21-2024 Bilirubin, UA Negative Negative - 4(70) +++ mg/dL [facility] Blood, UA Negative Negative - 50 Angel Luis/mcL [facility] Clarity, UA Clear [facility] Color, UA Yellow [facility] Glucose, UA Negative Negative - 1999(110) ++++ mg/dL [facility] Interpretation and review of laboratory results Abnormal [facility] Ketones, UA Negative Negative - 160(16) ++++ mg/dL [facility] Leukocytes, UA Negative Negative - 500+++ Drew/mcL [facility] Nitrite, UA Negative Negative - Positive [facility] pH, UA 7 5 - 9 [facility] Protein, UA Positive Negative - 1999(20) ++++ mg/dL [facility] Comment on above: 30 Spec Grav, UA 1.02 1 - 1.03 [facility] Urobilinogen, UA 0.2 0.2 - 12 mg/dL [facility] Urinalysis macro (dipstick) panel (U)on 06-07-2024 Bilirubin, UA Negative Negative - 4(70) +++ mg/dL [facility] Blood, UA Negative Negative - 50 Angel Luis/mcL [facility] Clarity, UA Clear [facility] Color, UA Yellow [facility] Glucose, UA Negative Negative - 1999(110) ++++ mg/dL [facility] Interpretation and review of laboratory results Normal [facility] Ketones, UA Negative Negative - 160(16) ++++ mg/dL [facility] Leukocytes, UA Negative Negative - 500+++ Drew/mcL [facility] Nitrite, UA Negative Negative - Positive [facility] pH, UA 7 5 - 9 [facility] Protein, UA Negative Negative - 1999(20) ++++ mg/dL [facility] Spec Grav, UA 1.02 1 - 1.03 [facility] Urobilinogen, UA 0.2 0.2 - 12 mg/dL [facility] Urinalysis macro (dipstick) panel (U)on 05-09-2024 Bilirubin, UA Positive Negative - 4(70) +++ mg/dL [facility] Comment on above: small Blood, UA Negative Negative - 50 Angel Luis/mcL [facility] Clarity, UA Clear [facility] Color, UA Miryam [facility] Glucose, UA Negative Negative - 1999(110) ++++ mg/dL [facility] Interpretation and review of laboratory results Abnormal [facility] Ketones, UA Positive Negative - 160(16) ++++ mg/dL [facility] Comment on above: trace Leukocytes, UA Negative Negative - 500+++ Drew/mcL [facility] Nitrite, UA Negative Negative - Positive [facility] pH, UA 6 5 - 9 [facility] Protein, UA Positive Negative - 1999(20) ++++ mg/dL [facility] Comment on above: 30 mg Spec Grav, UA 1.03 1 - 1.03 [facility] Urobilinogen, UA 0.2 0.2 - 12 mg/dL [facility] Urinalysis macro (dipstick) panel (U)on 04-11-2024 Bilirubin, UA Negative Negative - 4(70) +++ mg/dL [facility] Blood, UA Negative Negative - 50 Angel Luis/mcL [facility] Clarity, UA Clear [facility] Color, UA Yellow [facility] Glucose, UA Negative Negative - 1999(110) ++++ mg/dL [facility] Interpretation and review of laboratory results Normal [facility] Ketones, UA Negative Negative - 160(16) ++++ mg/dL [facility] Leukocytes, UA Negative Negative - 500+++ Drew/mcL [facility] Nitrite, UA Negative Negative - Positive [facility] pH, UA 6.5 5 - 9 [facility] Protein, UA Negative Negative - 1999(20) ++++ mg/dL [facility] Spec Grav, UA 1.020 1 - 1.03 [facility] Urobilinogen, UA 0.2 0.2 - 12 mg/dL [facility] Urinalysis macro (dipstick) panel (U)on 03-14-2024 Bilirubin, UA Negative Negative - 4(70) +++ mg/dL [facility] Blood, UA Negative Negative - 50 Angel Luis/mcL [facility] Clarity, UA Clear [facility] Color, UA Yellow [facility] Glucose, UA Negative Negative - 1999(110) ++++ mg/dL [facility] Interpretation and review of laboratory results Normal [facility] Ketones, UA Negative Negative - 160(16) ++++ mg/dL [facility] Leukocytes, UA Negative Negative - 500+++ Drew/mcL [facility] Nitrite, UA Negative Negative - Positive [facility] pH, UA 7.0 5 - 9 [facility] Protein, UA Negative Negative - 1999(20) ++++ mg/dL [facility] Spec Grav, UA 1.020 1 - 1.03 [facility] Urobilinogen, UA 0.2 0.2 - 12 mg/dL [facility] Facesheeton 03-02-2023 Facesheet [id number] CD:127 Normal [facility] Ambulatory Visit Summaryon 0 02-27-2023 [...] History of pre-eclampsia Insomnia Migraines Overweight Normal [facility] RAD - Ultrasound Reporton RAD - Ultrasound Report [id number] D:127 Normal [facility] Physician Referralon 023 Physician Referral [id number] D:127 Normal [facility] INSULINon 11-08-2022 Insulin 7.7 uIU/mL Normal 2.6-24.9 [facility] Comment on above: Performed By: #### V AMAURY, IRON #### [facility] [address] [place] [address] Dr. Chucho Jesus CBC AUTO DIFFon 11-07-2022 BASO # 0.0 103/ul Normal 0.0-0.1 [facility] Comment on above: Performed By: #### V ITSONIYA, IRON #### [facility] [address] [place] [address] Dr. Chucho Jesus Basophils/100 WBC (Bld) 0.6 % Normal 0.2-2.0 [facility] Comment on above: Performed By: #### V ITSONIYA, IRON #### [facility] [address] [place] [address] Dr. Chucho Jesus EO # 0.1 103/ul Normal 0.0-0.7 [facility] Comment on above: Performed By: #### V AMAURY, IRON #### [facility] [address] [place] [address] Dr. Chucho Jesus Eosinophils/100 WBC (Bld) 1.4 % Normal 0.9-7.0 [facility] Comment on above: Performed By: #### V ITAD, IRON #### [facility] [address] [place] [address] Dr. Chucho Jesus Erythrocyte distribution width (RBC) [Ratio] 13.9 % Normal 11.0-15.0 [facility] Comment on above: Performed By: #### V ITAD, IRON #### [facility] [address] [place] [address] Dr. Chucho Jesus Hematocrit (Bld) [Volume fraction] 45.6 % Normal 36.0-48.0 [facility] Comment on above: Performed By: #### V ITAD, IRON #### [facility] [address] [place] [address] Dr. Chucho Jesus Hemoglobin (Bld) [Mass/Vol] 15.1 g/dL Normal 12.0-16.0 [facility] Comment on above: Performed By: #### V ITAD, IRON #### [facility] [address] [place] [address] Dr. Chucho Jesus IG # 0.01 10e3/ul Normal 0.00-0.03 [facility] Comment on above: Performed By: #### V ITAD, IRON #### [facility] [address] [place] [address] Dr. Chucho Jesus IG % 0.1 % Normal 0.0-0.5 [facility] Comment on above: Performed By: #### V ITAD, IRON #### [facility] [address] [place] [address] Dr. Chucho Jesus LYMPH # 1.9 103/ul Normal 1.2-3.8 [facility] Comment on above: Performed By: #### V ITAD, IRON #### [facility] [address] [place] [address] Dr. Chucho Jesus Lymphocytes/100 WBC (Bld) 26.3 % Normal 20.5-60.0 [facility] Comment on above: Performed By: #### V ITAD, IRON #### [facility] [address] [place] [address] Dr. Chucho Jesus MANUAL DIFF REQ NO Normal [facility] Comment on above: Performed By: #### V ITAD, IRON #### [facility] [address] [place] [address] Dr. Chucho Jesus MCH (RBC) [Entitic mass] 27.9 pg Normal 26.7-34.0 [facility] Comment on above: Performed By: #### V ITAD, IRON #### [facility] [address] [place] [address] Dr. Chucho Jesus MCHC (RBC) [Mass/Vol] 33.1 g/dL Normal 29.9-35.2 [facility] Comment on above: Performed By: #### V ITAD, IRON #### [facility] [address] [place] [address] Dr. Chucho Jesus MCV (RBC) [Entitic vol] 84.1 fL Normal 81.0-99.0 [facility] Comment on above: Performed By: #### V ITAD, IRON #### [facility] [address] [place] [address] Dr. Chucho Jesus MONO # 0.5 103/ul Normal 0.3-0.8 [facility] Comment on above: Performed By: #### V ITAD, IRON #### [facility] [address] [place] [address] Dr. Chucho Jesus Monocytes/100 WBC (Bld) 7.3 % Normal 1.7-12.0 [facility] Comment on above: Performed By: #### V ITAD, IRON #### [facility] [address] [place] [address] Dr. Chucho Jesus NEUT # 4.6 103/ul Normal 1.4-6.5 [facility] Comment on above: Performed By: #### V ITAD, IRON #### [facility] [address] [place] [address] Dr. Chucho Jesus Neutrophils/100 WBC (Bld) 64.3 % Normal 43.0-75.0 [facility] Comment on above: Performed By: #### V ITAD, IRON #### [facility] [address] [address] [address] Chucho Jesus Platelet mean volume (Bld) [Entitic vol] 10.9 fL Normal 9.5-13.5 [facility] Comment on above: Performed By: #### V ITAD, IRON #### [facility] [address] [address] [address] Chucho Jesus PLT 226 103/ul Normal 150-450 [facility] Comment on above: Performed By: #### V ITAD, IRON #### [facility] [address] [address] [address] Chucho Jesus RBC 5.42 106/ul Critically high 4.20-5.40 [facility] Comment on above: Performed By: #### V ITAD, IRON #### [facility] [address] [address] [address] Chucho Jesus WBC 7.2 103/ul Normal 4.0-11.0 [facility] Comment on above: Performed By: #### V ITAD, IRON #### [facility] [address] [place] [address] Dr. Chucho Jesus FREE THYROXINE INDEX T7on FTI 3.29 Normal 1.30-4.50 [facility] Comment on above: Performed By: #### V ITAD, IRON #### [facility] [address] [place] [address] Dr. Chucho Jesus T3U 35.0 % Normal 30.0-39.0 [facility] Comment on above: Performed By: #### V ITAD, IRON #### [facility] [address] [place] [address] Dr. Chucho Jesus T4 [Mass/Vol] 9.40 ug/dL Normal 4.80-13.90 [facility] Comment on above: Performed By: #### V ITAD, IRON #### [facility] [address] [place] [address] Dr. Chucho Jesus GLYCOHEMOGLOBIN A1Con 2022 ADA RECOMMENDATION SEE BELOW Normal [facility] Comment on above: Result Comment: ADA RECOMMENDED LIMIT 4.0 - 6.0 ADA THERAPEUTIC TARGET < 7.0 ACTION SUGGESTED > 7.0 Performed By: #### A 1C #### [facility] [address] [address] [address] Chucho Jesus Glucose [Mass/Vol] 94 mg/dL Normal [facility] Comment on above: Performed By: #### A 1C #### [facility] [address] [address] [address] Chucho Jesus HbA1c (Bld) [Mass fraction] 4.9 % Normal 4.5-6.2 [facility] Comment on above: Performed By: #### A 1C #### [facility] [address] [place] [address] Dr. Chucho Jesus IRONon 11-07-2022 Iron [Mass/Vol] 81.0 ug/dL Normal 50.0-170.0 [facility] Comment on above: Performed By: #### V ITAD, IRON #### [facility] [address] [address] [address] Chucho Jesus LIPID PROFILEon 11-07-2022 CHOL-HDL RATIO NORM SEE BELOW Normal [facility] Comment on above: Result Comment: 3.3 - 4.4 LOW RISK 4.4 - 7.1 AVERAGE RISK 7.1 - 11.0 MODERATE RISK >11.0 HIGH RISK Performed By: #### V ITAD, IRON #### [facility] [address] [place] [address] Dr. Chucho Jesus Cholesterol [Mass/Vol] 126 mg/dL Normal <=200 [facility] Comment on above: Performed By: #### V ITAD, IRON #### [facility] [address] [address] [address] Chucho Jesus Cholesterol in HDL [Mass/Vol] 38 mg/dL Critically low 40-60 [facility] Comment on above: Performed By: #### V ITAD, IRON #### [facility] [address] [address] [address] Chucho Jesus Cholesterol in LDL [Mass/Vol] 79.4 mg/dL Normal [facility] Comment on above: Performed By: #### V ITAD, IRON #### [facility] [address] [place] [address] Dr. Chucho Jesus Cholesterol.total/C holesterol in HDL [Mass ratio] 3.3 {ratio} Normal [facility] Comment on above: Performed By: #### V ITAD, IRON #### [facility] [address] [place] [address] Dr. Chucho Jesus HDL NORMAL > or = 60 mg/dl - LO W CARDIOVASCULAR RISK <40 mg/dl - HIGH CARDIOVASCULAR RISK Normal [facility] Comment on above: Performed By: #### V ITAD, IRON #### [facility] [address] [place] [address] Dr. Chucho Jesus LDL CALC NORMAL SEE BELOW Normal [facility] Comment on above: Result Comment: <100 mg/dl OPTIMAL 100 - 129 mg/dl NEAR OR ABOVE OPTIMAL 130 - 159 mg/dl BORDERLINE HIGH 160 - 189 mg/dl HIGH >190 mg/dl VERY HIGH Performed By: #### V ITAD, IRON #### [facility] [address] [place] [address] Dr. Chucho Jesus Triglyceride [Mass/Vol] 43 mg/dL Normal <=150 [facility] Comment on above: Performed By: #### V ITAD, IRON #### [facility] [address] [place] [address] Dr. Chucho Jesus VLDL CALC 8.6 mg/dL Normal [facility] Comment on above: Performed By: #### V ITAD, IRON #### [facility] [address] [address] [address] Chucho Jesus PROF 14(COMP METB)on 023 Albumin [Mass/Vol] 4.2 g/dL Normal 3.4-5.0 [facility] Comment on above: Performed By: #### V ITAD, IRON #### [facility] [address] [place] [address] Dr. Chucho Jesus Albumin/Globulin [Mass ratio] 1.1 {ratio} Normal [facility] Comment on above: Performed By: #### V ITAD, IRON #### [facility] [address] [place] [address] Dr. Chucho Jesus ALP [Catalytic activity/Vol] 93 U/L Normal 46-116 [facility] Comment on above: Performed By: #### V ITAD, IRON #### [facility] [address] [address] [address] Chucho Jesus ALT [Catalytic activity/Vol] 16 U/L Normal 14-59 [facility] Comment on above: Performed By: #### V ITAD, IRON #### [facility] [address] [place] [address] Dr. Chucho Jesus Anion gap [Moles/Vol] 14.3 mmol/L Normal [facility] Comment on above: Performed By: #### V ITAD, IRON #### [facility] [address] [place] [address] Dr. Chucho Jesus AST [Catalytic activity/Vol] 16 U/L Normal 15-37 [facility] Comment on above: Performed By: #### V ITAD, IRON #### [facility] [address] [place] [address] Dr. Chucho Jesus Bilirubin [Mass/Vol] 1.0 mg/dL Normal 0.2-1.0 [facility] Comment on above: Performed By: #### V ITAD, IRON #### [facility] [address] [address] [address] Chucho Jesus Calcium [Mass/Vol] 9.4 mg/dL Normal 8.5-10.1 [facility] Comment on above: Performed By: #### V ITAD, IRON #### [facility] [address] [place] [address] Dr. Chucho Jesus Chloride [Moles/Vol] 103 mmol/L Normal 98-107 [facility] [facility] Comment on above: Performed By: #### V ITAD, IRON #### [facility] [address] [place] [address] Dr. Chucho Jesus CO2 [Moles/Vol] 24.9 mmol/L Normal 21.0-32.0 [facility] Comment on above: Performed By: #### V ITAD, IRON #### [facility] [address] [address] [address] Chucho Jesus Creatinine [Mass/Vol] 0.68 mg/dL Normal 0.55-1.02 [facility] Comment on above: Performed By: #### V ITAD, IRON #### [facility] [address] [address] [address] Chucho Jesus EGFR-AF TONGAN >60 Normal >=60 [facility] Comment on above: Performed By: #### V ITAD, IRON #### [facility] [address] [place] [address] Dr. Chucho Jesus EGFR-NON AF TONGAN >60 Normal >=60 [facility] Comment on above: Performed By: #### V ITAD, IRON #### [facility] [address] [address] [address] Chucho Jesus Globulin (S) [Mass/Vol] 3.9 g/dL Normal [facility] Comment on above: Performed By: #### V ITAD, IRON #### [facility] [address] [place] [address] Dr. Chucho Jesus Glucose [Mass/Vol] 89 mg/dL Normal 74-106 [facility] Comment on above: Performed By: #### V ITAD, IRON #### [facility] [address] [address] [address] Chucho Jesus Potassium [Moles/Vol] 4.2 mmol/L Normal 3.5-5.1 [facility] Comment on above: Performed By: #### V ITAD, IRON #### [facility] [address] [place] [address] Dr. Chucho Jesus Protein [Mass/Vol] 8.1 g/dL Normal 6.4-8.2 [facility] Comment on above: Performed By: #### V ITAD, IRON #### [facility] [address] [place] [address] Dr. Chucho Jesus Sodium [Moles/Vol] 138 mmol/L Normal 136-145 [facility] Comment on above: Performed By: #### V ITAD, IRON #### [facility] [address] [place] [address] Dr. Chucho Jesus Urea nitrogen [Mass/Vol] 9.0 mg/dL Normal 7.0-18.0 [facility] Comment on above: Performed By: #### V ITAD, IRON #### [facility] [address] [address] [address] Chucho Jesus Urea nitrogen/Creatinine [Mass ratio] 13.2 mg/mg Normal [facility] Comment on above: Performed By: #### V ITAD, IRON #### [facility] [address] [place] [address] Dr. Chucho Jesus TSHon 11-07-2022 TSH 1.668 uIU/mL Normal 0.358-3.740 [facility] Comment on above: Performed By: #### V ITAD, IRON #### [facility] [address] [place] [address] Dr. Chucho Jesus Covid-19 PCR ([facility]on SARS-CoV-2 (COVID-19) RNA DMITRY+probe Ql (Unsp spec) Not detected Normal NOT DETECTED [facility] Comment on above: Result Comment: When diagnostic [...] for this test is supported by the [place] of Health and Human Service's declaration that [...] Performed By: #### V ITAD, IRON #### [facility] [address] [address] [address] Chucho Jesus Covid-19 PCR ([facility]on SARS-CoV-2 (COVID-19) RNA DMITRY+probe Ql (Unsp spec) Not detected Normal NOT DETECTED [facility] Comment on above: Result Comment: When diagnostic [...] for this test is supported by the [place] of Health and Human Service's declaration that [...] used). Performed By: #### C VDTBH #### [facility] [address] [place] [address] Dr. Chucho Jesus INFLUENZA A AND B AGon 08-11 [facility] SEE BELOW Normal The [facility] Comment on above: Result Comment: Nega tive for Flu A protein angiten. Infection due to Flu A cannot be ruled out. Flu A angiten in the sample may be below the detection limit of the test. Performed By: #### I NFLUAB #### [facility] [address] [place] [address] Dr. Chucho Jesus INFLUBNEG SEE BELOW Normal [facility] Comment on above: Result Comment: Nega tive for Flu B protein antigen. Infection due to Flu B cannot be ruled out. Flu B antigen in the sample may be below the detection limit of the test. Performed By: #### I NFLUAB #### [facility] [address] [place] [address] Dr. Chucho Jesus INFLUENZA A AG Negative Normal NEGATIVE SEE COMMENT [facility] Comment on above: Performed By: #### I NFLUAB #### [facility] [address] [address] [address] Chucho Jesus INFLUENZA B AG Negative Normal NEGATIVE SEE COMMENT [facility] Comment on above: Performed By: #### I NFLUAB #### [facility] [address] [address] [address] Chucho Jesus Covid-19 PCR ([facility])on 05-07 SARS-CoV-2 (COVID-19) RNA DMITRY+probe Ql (Unsp spec) Not detected Normal NOT DETECTED The [facility] Comment on above: Result Comment: When diagnostic [...] for this test is supported by the [place] of Health and Human Service's declaration that [...] Performed By: #### V ITAD, IRON #### [facility] [address] [place] [address] Dr. Chucho Jesus INFLUENZA A AND B AGon 05-26 [facility] SEE BELOW Normal [facility] Comment on above: Result Comment: Nega tive for Flu A protein angiten. Infection due to Flu A cannot be ruled out. Flu A angiten in the sample may be below the detection limit of the test. Performed By: #### V ITAD, IRON #### [facility] [address] [place] [address] Dr. Chucho Jesus [facility] SEE BELOW Normal [facility] Comment on above: Result Comment: Nega tive for Flu B protein antigen. Infection due to Flu B cannot be ruled out. Flu B antigen in the sample may be below the detection limit of the test. Performed By: #### V ITAD, IRON #### [facility] [address] [place] [address] Dr. Chucho Jesus INFLUENZA A AG Negative Normal NEGATIVE SEE COMMENT [facility] Comment on above: Performed By: #### V ITAD, IRON #### [facility] [address] [place] [address] Dr. Chucho Jesus INFLUENZA B AG Negative Normal NEGATIVE SEE COMMENT [facility] Comment on above: Performed By: #### V ITAD, IRON #### [facility] [address] [place] [address] Dr. Chucho Jesus INTERNAL CONTROLS Within Normal Limits Normal Wi thin Normal Limits [facility] Comment on above: Performed By: #### V ITAD, IRON #### [facility] [address] [place] [address] Dr. Chucho Jesus ER URINE PROFILEon 2 Bilirubin Ql (U) Negative Normal NEGATIVE [facility] Comment on above: Performed By: #### V ITAD, IRON #### [facility] [address] [place] [address] Dr. Chucho Jesus Clarity (U) CLEAR Normal CLEAR [facility] Comment on above: Performed By: #### V ITAD, IRON #### [facility] [address] [place] [address] Dr. Chucho Jesus Color (U) YELLOW Normal YELLOW [facility] Comment on above: Performed By: #### V ITAD, IRON #### [facility] [address] [place] [address] Dr. Chucho BAHENA A micrscopic examination will be performed if indicated. Normal [facility] Comment on above: Performed By: #### V ITAD, IRON #### [facility] [address] [place] [address] Dr. Chucho Jesus Glucose Ql (U) Negative Normal NEGATIVE [facility] Comment on above: Performed By: #### V ITAD, IRON #### [facility] [address] [address] [address] Chucho Jesus Hemoglobin Ql (U) Negative Normal NEGATIVE [facility] Comment on above: Performed By: #### V ITAD, IRON #### [facility] [address] [address] [address] Chucho Jesus Ketones Ql (U) >=80 Abnormal NEGATIVE [facility] Comment on above: Performed By: #### V ITAD, IRON #### [facility] [address] [address] [address] Chucho Jesus LEUKOCYTES Negative Normal NEGATIVE [facility] Comment on above: Performed By: #### V ITAD, IRON #### [facility] [address] [place] [address] Dr. Chucho Jesus Nitrite Ql (U) Negative Normal NEGATIVE [facility] Comment on above: Performed By: #### V ITAD, IRON #### [facility] [address] [place] [address] Dr. Chucho Jesus pH (U) 6.0 [pH] Normal 5-9 [facility] Comment on above: Performed By: #### V ITAD, IRON #### [facility] [address] [place] [address] Dr. Chucho Jesus Protein (U) [Mass/Vol] 100 mg/dL Abnormal NEGATIVE/ TRACE [facility] Comment on above: Performed By: #### V ITAD, IRON #### [facility] [address] [place] [address] Dr. Chucho Jesus SPEC GRAVITY >=1.030 Abnormal 1.005-<=1.025 [facility] Comment on above: Performed By: #### V ITAD, IRON #### [facility] [address] [place] [address] Dr. Chucho Jesus UR MICRO IND INDICATED Normal [facility] Comment on above: Performed By: #### V ITAD, IRON #### [facility] [address] [place] [address] Dr. Chucho Jesus Urobilinogen Qn (U) 0.2 {Chelsea'U}/dL Normal 0.2 - 1. 0 [facility] Comment on above: Performed By: #### V ITAD, IRON #### [facility] [address] [address] [address] Chucho Jesus URon 05-22-2022 , QUAL Negative Normal NEGATIVE [facility] Comment on above: Performed By: #### V ITAD, IRON #### [facility] [address] [address] [address] Chucho Jesus URINE MICROSCOPIC ONLYon BACTERIA NONE SEEN Normal NONE SEEN [facility] Comment on above: Performed By: #### V ITAD, IRON #### [facility] [address] [place] [address] Dr. Chucho Jesus Bacteria identified Cx Nom (U) NOT INDICATED Normal [facility] Comment on above: Performed By: #### V ITAD, IRON #### [facility] [address] [address] [address] Chucho Jesus CAST NONE SEEN Normal NONE SEEN [facility] Comment on above: Performed By: #### V ITAD, IRON #### [facility] [address] [address] [address] Chucho Jesus Crystals LM Nom (Urine sed) NONE SEEN Normal NONE SEEN [facility] Comment on above: Performed By: #### V ITAD, IRON #### [facility] [address] [address] [address] Chucho Jesus Epithelial cells LM Ql (Urine sed) FEW Abnormal NONE SEEN /RARE The [facility] Comment on above: Performed By: #### V ITAD, IRON #### [facility] [address] [address] [address] Chucho Jesus MUCOUS MODERATE Abnormal NONE SEEN The [facility] Comment on above: Performed By: #### V ITAD, IRON #### [facility] [address] [address] [address] Chucho Jesus RBC NONE SEEN Abnormal 0-2 [facility] Comment on above: Performed By: #### V AMAURY IRON #### [facility] [address] [address] [address] Chucho Jesus WBC NONE SEEN Normal NONE SEEN [facility] Comment on above: Performed By: #### V AMAURY, IRON #### [facility] [address] [place] [address] Dr. Chucho Jesus XR LSPINE 2_3 VIEWSon [...] SHAINA CAMPOS Date: 2022-05-22 12:28 Normal [facility] INSULINon 04-25-2022 Insulin 10.4 uIU/mL Normal 2.6-24.9 [facility] Comment on above: Performed By: #### V AMAURY IRON #### [facility] [address] [place] [address] Dr. Chucho Jeuss CBC AUTO DIFFon 04-24-2022 BASO # 0.0 103/ul Normal 0.0-0.1 [facility] Comment on above: Performed By: #### C BC #### [facility] [address] [place] [address] Dr. Chucho Jesus Basophils/100 WBC (Bld) 0.6 % Normal 0.2-2.0 [facility] Comment on above: Performed By: #### C BC #### [facility] [address] [place] [address] Dr. Chucho Jesus EO # 0.1 103/ul Normal 0.0-0.7 [facility] Comment on above: Performed By: #### C BC #### [facility] [address] [place] [address] Dr. Chucho Jesus Eosinophils/100 WBC (Bld) 1.8 % Normal 0.9-7.0 [facility] Comment on above: Performed By: #### C BC #### [facility] [address] [place] [address] Dr. Chucho Jesus Erythrocyte distribution width (RBC) [Ratio] 12.9 % Normal 11.0-15.0 [facility] Comment on above: Performed By: #### C BC #### [facility] [address] [place] [address] Dr. Chucho Jesus Hematocrit (Bld) [Volume fraction] 45.6 % Normal 36.0-48.0 [facility] Comment on above: Performed By: #### C BC #### [facility] [address] [place] [address] Dr. Chucho Jesus Hemoglobin (Bld) [Mass/Vol] 14.7 g/dL Normal 12.0-16.0 [facility] Comment on above: Performed By: #### C BC #### [facility] [address] [place] [address] Dr. Chucho Jesus IG # 0.02 10e3/ul Normal 0.00-0.03 [facility] Comment on above: Performed By: #### C BC #### [facility] [address] [place] [address] Dr. Chucho Jesus IG % 0.3 % Normal 0.0-0.5 [facility] Comment on above: Performed By: #### C BC #### [facility] [address] [place] [address] Dr. Chucho Jesus LYMPH # 1.6 103/ul Normal 1.2-3.8 [facility] Comment on above: Performed By: #### C BC #### [facility] [address] [place] [address] Dr. Chucho Jesus Lymphocytes/100 WBC (Bld) 24.5 % Normal 20.5-60.0 [facility] Comment on above: Performed By: #### C BC #### [facility] [address] [place] [address] Dr. Chucho Jesus MANUAL DIFF REQ NO Normal [facility] Comment on above: Performed By: #### C BC #### [facility] [address] [place] [address] Dr. Chucho Jesus MCH (RBC) [Entitic mass] 28.4 pg Normal 26.7-34.0 [facility] Comment on above: Performed By: #### C BC #### [facility] [address] [place] [address] Dr. Chucho Jesus MCHC (RBC) [Mass/Vol] 32.2 g/dL Normal 29.9-35.2 [facility] Comment on above: Performed By: #### C BC #### [facility] [address] [place] [address] Dr. Chucho Jesus MCV (RBC) [Entitic vol] 88.2 fL Normal 81.0-99.0 [facility] Comment on above: Performed By: #### C BC #### [facility] [address] [place] [address] Dr. Chucho Jesus MONO # 0.5 103/ul Normal 0.3-0.8 [facility] Comment on above: Performed By: #### C BC #### [facility] [address] [place] [address] Dr. Chucho Jesus Monocytes/100 WBC (Bld) 7.4 % Normal 1.7-12.0 [facility] Comment on above: Performed By: #### C BC #### [facility] [address] [place] [address] Dr. Chucho Jesus NEUT # 4.4 103/ul Normal 1.4-6.5 [facility] Comment on above: Performed By: #### C BC #### [facility] [address] [place] [address] Dr. Chucho Jesus Neutrophils/100 WBC (Bld) 65.4 % Normal 43.0-75.0 [facility] Comment on above: Performed By: #### C BC #### [facility] [address] [place] [address] Dr. Chucho Jesus Platelet mean volume (Bld) [Entitic vol] 9.9 fL Normal 9.5-13.5 [facility] Comment on above: Performed By: #### C BC #### [facility] [address] [place] [address] Dr. Chucho Jesus PLT 225 103/ul Normal 150-450 [facility] Comment on above: Performed By: #### C BC #### [facility] [address] [address] [address] Chucho Jesus RBC 5.17 106/ul Normal 4.20-5.40 [facility] Comment on above: Performed By: #### C BC #### [facility] [address] [place] [address] Dr. Chucho Jesus WBC 6.7 103/ul Normal 4.0-11.0 [facility] Comment on above: Performed By: #### C BC #### [facility] [address] [place] [address] Dr. Chucho Jesus FREE THYROXINE INDEX T7on FTI 3.29 Normal 1.30-4.50 [facility] Comment on above: Performed By: #### T 7, TSH, LIPID, CMP #### [facility] [address] [place] [address] Dr. Chucho Jesus T3U 27.0 % Critically low 30.0-39.0 [facility] Comment on above: Performed By: #### T 7, TSH, LIPID, CMP #### [facility] [address] [place] [address] Dr. Chucho Jesus T4 [Mass/Vol] 12.20 ug/dL Normal 4.80-13.90 [facility] Comment on above: Performed By: #### T 7, TSH, LIPID, CMP #### [facility] [address] [place] [address] Dr. Chucho Jesus GLYCOHEMOGLOBIN A1Con 2021 ADA RECOMMENDATION SEE BELOW Normal [facility] Comment on above: Result Comment: ADA RECOMMENDED LIMIT 4.0 - 6.0 ADA THERAPEUTIC TARGET < 7.0 ACTION SUGGESTED > 7.0 Performed By: #### A 1C #### [facility] [address] [address] [address] Chucho Jesus Glucose [Mass/Vol] 105 mg/dL Normal [facility] Comment on above: Performed By: #### A 1C #### [facility] [address] [address] [address] Chucho Jesus HbA1c (Bld) [Mass fraction] 5.3 % Normal 4.5-6.2 [facility] Comment on above: Performed By: #### A 1C #### [facility] [address] [place] [address] Dr. Chucho Jesus IRONon 04-24-2022 Iron [Mass/Vol] 48.0 ug/dL Critically low 50.0-170.0 [facility] Comment on above: Performed By: #### V ITAD, IRON #### [facility] [address] [place] [address] Dr. Chucho Jesus LIPID PROFILEon 04-24-2022 CHOL-HDL RATIO NORM SEE BELOW Normal [facility] Comment on above: Result Comment: 3.3 - 4.4 LOW RISK 4.4 - 7.1 AVERAGE RISK 7.1 - 11.0 MODERATE RISK >11.0 HIGH RISK Performed By: #### V ITAD, IRON #### [facility] [address] [place] [address] Dr. Chucho Jesus Cholesterol [Mass/Vol] 184 mg/dL Normal <=200 [facility] Comment on above: Performed By: #### V ITAD, IRON #### [facility] [address] [place] [address] Dr. Chucho Jesus Cholesterol in HDL [Mass/Vol] 55 mg/dL Normal 40-60 [facility] Comment on above: Performed By: #### V ITAD, IRON #### [facility] [address] [place] [address] Dr. Chucho Jesus Cholesterol in LDL [Mass/Vol] 116.6 mg/dL Normal [facility] Comment on above: Performed By: #### V ITAD, IRON #### [facility] [address] [address] [address] Chucho Jesus Cholesterol.total/C holesterol in HDL [Mass ratio] 3.3 {ratio} Normal [facility] Comment on above: Performed By: #### V ITAD, IRON #### [facility] [address] [address] [address] Chucho Jesus HDL NORMAL > or = 60 mg/dl - LO W CARDIOVASCULAR RISK <40 mg/dl - HIGH CARDIOVASCULAR RISK Normal [facility] Comment on above: Performed By: #### V ITAD, IRON #### [facility] [address] [address] [address] Chucho Jesus LDL CALC NORMAL SEE BELOW Normal [facility] Comment on above: Result Comment: <100 mg/dl OPTIMAL 100 - 129 mg/dl NEAR OR ABOVE OPTIMAL 130 - 159 mg/dl BORDERLINE HIGH 160 - 189 mg/dl HIGH >190 mg/dl VERY HIGH Performed By: #### V ITAD, IRON #### [facility] [address] [address] [address] Chucho Jesus Triglyceride [Mass/Vol] 62 mg/dL Normal <=150 [facility] Comment on above: Performed By: #### V ITAD, IRON #### [facility] [address] [place] [address] Dr. Chucho Jesus VLDL CALC 12.4 mg/dL Normal [facility] Comment on above: Performed By: #### V ITAD, IRON #### [facility] [address] [place] [address] Dr. Chucho Jesus PROF 14(COMP METB)on 022 Albumin [Mass/Vol] 3.7 g/dL Normal 3.4-5.0 [facility] Comment on above: Performed By: #### T 7, TSH, LIPID, CMP #### [facility] [address] [place] [address] Dr. Chucho Jesus Albumin/Globulin [Mass ratio] 0.9 {ratio} Normal [facility] Comment on above: Performed By: #### T 7, TSH, LIPID, CMP #### [facility] [address] [place] [address] Dr. Chucho Jesus ALP [Catalytic activity/Vol] 74 U/L Normal 46-116 [facility] Comment on above: Performed By: #### T 7, TSH, LIPID, CMP #### [facility] [address] [address] [address] Chucho Jesus ALT [Catalytic activity/Vol] 16 U/L Normal 14-59 [facility] Comment on above: Performed By: #### T 7, TSH, LIPID, CMP #### [facility] [address] [address] [address] Chucho Jesus Anion gap [Moles/Vol] 12.3 mmol/L Normal [facility] Comment on above: Performed By: #### T 7, TSH, LIPID, CMP #### [facility] [address] [place] [address] Dr. Chucho Jesus AST [Catalytic activity/Vol] 13 U/L Critically low 15-37 [facility] Comment on above: Performed By: #### T 7, TSH, LIPID, CMP #### [facility] [address] [place] [address] Dr. Chucho Jesus Bilirubin [Mass/Vol] 0.4 mg/dL Normal 0.2-1.0 [facility] Comment on above: Performed By: #### T 7, TSH, LIPID, CMP #### [facility] [address] [place] [address] Dr. Chucho Jesus Calcium [Mass/Vol] 8.9 mg/dL Normal 8.5-10.1 [facility] Comment on above: Performed By: #### T 7, TSH, LIPID, CMP #### [facility] [address] [place] [address] Dr. Chucho Jesus Chloride [Moles/Vol] 105 mmol/L Normal 98-107 [facility] Comment on above: Performed By: #### T 7, TSH, LIPID, CMP #### [facility] [address] [address] [address] Chucho Jesus CO2 [Moles/Vol] 26.6 mmol/L Normal 21.0-32.0 [facility] Comment on above: Performed By: #### T 7, TSH, LIPID, CMP #### [facility] [address] [address] [address] Chucho Jesus Creatinine [Mass/Vol] 0.68 mg/dL Normal 0.55-1.02 [facility] Comment on above: Performed By: #### T 7, TSH, LIPID, CMP #### [facility] [address] [address] [address] Chucho Jesus EGFR-AF TONGAN >60 Normal >=60 [facility] Comment on above: Performed By: #### T 7, TSH, LIPID, CMP #### [facility] [address] [address] [address] Chucho Jesus EGFR-NON AF TONGAN >60 Normal >=60 [facility] Comment on above: Performed By: #### T 7, TSH, LIPID, CMP #### [facility] [address] [address] [address] Chucho Jesus Globulin (S) [Mass/Vol] 4.3 g/dL Normal [facility] Comment on above: Performed By: #### T 7, TSH, LIPID, CMP #### [facility] [address] [address] [address] Chucho Jesus Glucose [Mass/Vol] 87 mg/dL Normal 74-106 [facility] Comment on above: Performed By: #### T 7, TSH, LIPID, CMP #### [facility] [address] [address] [address] Chucho Jesus Potassium [Moles/Vol] 3.9 mmol/L Normal 3.5-5.1 [facility] Comment on above: Performed By: #### T 7, TSH, LIPID, CMP #### [facility] [address] [address] [address] Chucho Jesus Protein [Mass/Vol] 8.0 g/dL Normal 6.4-8.2 [facility] Comment on above: Performed By: #### T 7, TSH, LIPID, CMP #### [facility] [address] [address] [address] Chucho Jesus Sodium [Moles/Vol] 140 mmol/L Normal 136-145 [facility] Comment on above: Performed By: #### T 7, TSH, LIPID, CMP #### [facility] [address] [place] [address] Dr. Chucho Jesus Urea nitrogen [Mass/Vol] 9.0 mg/dL Normal 7.0-18.0 [facility] Comment on above: Performed By: #### T 7, TSH, LIPID, CMP #### [facility] [address] [address] [address] Chucho Jesus Urea nitrogen/Creatinine [Mass ratio] 13.2 mg/mg Normal [facility] Comment on above: Performed By: #### T 7, TSH, LIPID, CMP #### [facility] [address] [place] [address] Dr. Chucho Jesus TSHon 04-24-2022 TSH 1.127 uIU/mL Normal 0.358-3.740 [facility] Comment on above: Performed By: #### T 7, TSH, LIPID, CMP #### [facility] [address] [place] [address] Dr. Chucho Jesus VITAMIN D 25 OHon 04-24-2022 VIT D 25-OH 35.2 ng/mL Normal [facility] Comment on above: Performed By: #### V ITAD, IRON #### [facility] [address] [place] [address] Dr. Chucho Jesus VIT D RANGES SEE BELOW Normal [facility] Comment on above: Result Comment: <20 ng/mL Vit D deficient 20 - <30 ng/mL Vit D insufficient 30 - 100 ng/mL Vit D sufficient >100 ng/mL Potential Toxicity Performed By: #### V ITAD, IRON #### [facility] [address] [place] [address] Dr. Chucho Jesus HCG ( test) Ql (U)O rdered By: James Churchill on 12-05-2020 Internal Control Pass [facility] Interpretation and review of laboratory results Normal [facility] POC , UrineOrdered By: James Churchill on 12-05-2020 HCG ( test) Ql (U) Negative Negative [facility] CTA CHEST WITH CONTRASTon CTA CHEST [...] by:Ady Tran MD03/25/17Edited Result - FINAL Normal [facility] Basic Metabolic Profon 02-19 (cont.) Normal [facility] Comment on above: Result Comment: Aver age GFR for 20-29 years old: 116 mL/min/1.73sq mChronic Kidney Disease: <60 mL/min/1.73sq mKidney failure: <15 mL/min/1.73sq meGFR calculated using average adult body mass. Additional eGFR calculator available at:http://www.[employer]/multiple_crcl_2012.htm Performed By: #### C KELLE ALBARRAN TROPI ####[address] [place] [address] Anion gap 14 mmol/L Normal 03-22 [facility] Comment on above: Performed By: #### C DP, BMP, TROPI ####[address] [place] [address] BUN/CRE Ratio 13 Normal 9-20 [facility] Comment on above: Performed By: #### C DP, BMP, TROPI ####[address] [place] [address] Calcium 9.2 mg/dL Normal 8.6-10.4 [facility] Comment on above: Performed By: #### C DP, BMP, TROPI ####[address] [place] [address] Chloride 105 mmol/L Normal 98-107 [facility] Comment on above: Performed By: #### C DP, BMP, TROPI ####[address] [place] [address] CO2 23 mmol/L Normal 20-31 [facility] Comment on above: Performed By: #### C DP, BMP, TROPI ####[address] [place] [address] Creatinine 0.55 mg/dL Normal 0.50-0.90 [facility] Comment on above: Performed By: #### C DP, BMP, TROPI ####[address] [place] [address] eGFR (non-black) mL/min/{1.73_m2} Normal >60 [facility] Comment on above: Performed By: #### C DP, BMP, TROPI ####[address] [place] [address] Glucose mass conc 96 mg/dL Normal 70-99 [facility] Comment on above: Performed By: #### C DP, BMP, TROPI ####[address] [place] [address] Potassium molar conc 3.6 mmol/L Low 3.7-5.3 [facility] Comment on above: Performed By: #### C DP, BMP, TROPI ####[address] [place] [address] Sodium 142 mmol/L Normal 135-144 [facility] Comment on above: Performed By: #### C DP, BMP, TROPI ####[address] [place] [address] Staging: Normal [facility] Comment on above: Result Comment: Stag e 1: Some kidney damage normal GFRStage 2: Mild kidney damage GFR 60-89Stage 3: Moderate kidney damage GFR 30-59Stage 4: Severe kidney damage GFR 15-29Stage 5: Severe kidney damage GFR <15ESRD - chronic treatment by dialysis or transplantPerformed at [address] [place] [address] Performed By: #### C DP, BMP, TROPI ####[address] [place] [address] Urea nitrogen 7 mg/dL Normal 6-20 [facility] Comment on above: Performed By: #### C DP, BMP, TROPI ####[address] [place] [address] CBC with Diffon 02-19-2017 Abs. Basophil 0.00 k/uL Normal 0.0-0.2 [facility] Comment on above: Result Comment: Perf ormed at [address] [place] [address] Performed By: #### C DP, BMP, TROPI ####[address] [place] [address] Abs.Neutrophil (Seg) 7.10 k/uL Normal 1.8-8.0 [facility] Comment on above: Performed By: #### C DP, BMP, TROPI ####[address] [place] [address] Basophils/100 WBC Auto (Bld) 0 % Normal [facility] Comment on above: Performed By: #### C DP, BMP, TROPI ####[address] [place] [address] Eosinophils 0.30 10*3/uL Normal 0.0-0.4 [facility] Comment on above: Performed By: #### C DP, BMP, TROPI ####[address] [place] [address] Eosinophils/100 leukocytes 3 % Normal [facility] Comment on above: Performed By: #### C DP, BMP, TROPI ####[address] [place] [address] Erythrocyte distribution width Auto Ratio (RBC) 13.6 % Normal 12.1-15.2 [facility] Comment on above: Performed By: #### C DP, BMP, TROPI ####[address] , [place] [address] Erythrocytes (RBC) 5.03 10*6/uL Normal 4.0-5.2 [facility] Comment on above: Performed By: #### C DP, BMP, TROPI ####[address] [place] [address] Hematocrit (HCT) 40.2 % Normal 36-46 [facility] Comment on above: Performed By: #### C DP, BMP, TROPI ####[address] [place] [address] Hemoglobin mass conc (Bld) 13.2 g/dL Normal 12.0-16.0 [facility] Comment on above: Performed By: #### C DP, BMP, TROPI ####[address] [place] [address] Lymphocytes 2.90 10*3/uL Normal 1.2-5.2 [facility] Comment on above: Performed By: #### C DP, BMP, TROPI ####[address] , [facility]83 Lymphocytes/100 leukocytes 27 % Normal [facility] Comment on above: Performed By: #### C DP, BMP, TROPI ####[address] , [facility]83 MCH 26.2 pg Normal 26-34 [facility] Comment on above: Performed By: #### C DP, BMP, TROPI ####[address] , [facility]83 MCHC mass conc (RBC) 32.8 g/dL Normal 31-37 [facility] Comment on above: Performed By: #### C DP, BMP, TROPI ####[address] , [facility]83 MCV 79.9 fL Low 80-100 [facility] Comment on above: Performed By: #### C DP, BMP, TROPI ####[address] [place] [address] Monocytes 0.60 10*3/uL Normal 0.0-1.0 [facility] Comment on above: Performed By: #### C DP, BMP, TROPI ####[address] [place] [address] Monocytes/100 leukocytes 5 % Normal [facility] Comment on above: Performed By: #### C DP, BMP, TROPI ####[address] [place] [address] Neutrophil (Seg) 65 % Normal [facility] Comment on above: Performed By: #### C DP, BMP, TROPI ####[address] [place] [address] Platelet mean volume (PMV) 9.6 fL Normal 6.0-12.0 [facility] Comment on above: Performed By: #### C DP, BMP, TROPI ####[address] [place] [address] Platelets 278 10*3/uL Normal 140-450 [facility] Comment on above: Performed By: #### C DP, BMP, TROPI ####[address] [place] [address] WBC (Leukocytes) 10.8 10*3/uL Normal 4.5-13.5 [facility] Comment on above: Performed By: #### C DP, BMP, TROPI ####[address] [place] [address] Auto Diff Performed NOT REPORTED Normal [facility] Comment on above: Performed By: #### C DP, BMP, TROPI ####[address] [place] [address] Erythrocyte morphology NOT REPORTED Normal [facility] Comment on above: Performed By: #### C DP, BMP, TROPI ####[address] [place] [address] Platelets NOT REPORTED Normal [facility] Comment on above: Performed By: #### C DP, BMP, TROPI ####[address] [place] [address] WBC Morphology NOT REPORTED Normal [facility] Comment on above: Performed By: #### C DP, BMP, TROPI ####[address] [place] [address] ED Noteon 02-19-2017 HIM IP Note OR Grain Cleaner Normal [facility] ED Provider Noteon 7 HIM IP Note OR Grain Cleaner Normal [facility] Troponinon 02-19-2017 Troponin T.cardiac mass conc ug/L Normal <0.03 [facility] Comment on above: Result Comment: Trop onin T results cannot be compared to Troponin-I results. Performed By: #### C DP, BMP, TROPI ####[address] [place] [address] Troponin I.cardiac mass conc Normal [facility] Comment on above: Result Comment: Refe rence Range: <0.03 Within reference range. 0.03-0.09 Possible myocardial damage.Repeat at appropriate intervals to rule out chronic elevation. >= 0.10 Indicative of myocardial damage.Performed at [address] [place], [place] [address] ([phone] Performed By: #### C DP, BMP, TROPI ####[address] [place] [address] Vital Signs Date Time Vital Sign Value Performing Clinician Facility 07-18-2024 10:02-0500 Body mass index (BMI) [Ratio] 36.91 kg/m2 [employer] Work Phone: [facility] 07-18-2024 10:02-0500 Body weight 100.61 kg [employer] Work Phone: [facility] 07-18-2024 10:02-0500 Diastolic blood pressure 70 mm[Hg] [employer] Work Phone: [facility] 07-18-2024 10:02-0500 Systolic blood pressure 130 mm[Hg] [employer] Work Phone: [facility] 07-04-2024 12:13-0500 Body mass index (BMI) [Ratio] 35.84 kg/m2 Little LOW[facility] Work Phone: [facility] 07-04-2024 12:13-0500 Body weight 97.7 kg Little LOWRY Work Phone: [facility] 07-04-2024 12:13-0500 Diastolic blood pressure 64 mm[Hg] Little LOWRY Work Phone: [facility] 07-04-2024 12:13-0500 Systolic blood pressure 104 mm[Hg] Little LOWRY Work Phone: [facility] 06-21-2024 13:31-0500 Body mass index (BMI) [Ratio] 35.61 kg/m2 Little Ezra PA Work Phone: [facility] 06-21-2024 13:31-0500 Body weight 97.07 kg Little Nassau PA Work Phone: [facility] 06-21-2024 13:31-0500 Diastolic blood pressure 72 mm[Hg] Little Ezra PA Work Phone: [facility] 06-21-2024 13:31-0500 Systolic blood pressure 116 mm[Hg] Little Ezra PA Work Phone: [facility] 06-07-2024 13:49-0500 Body mass index (BMI) [Ratio] 34.61 kg/m2 Berto Luis DO Work Phone: [facility] 06-07-2024 13:49-0500 Body weight 94.35 kg Berto Luis DO Work Phone: [facility] 06-07-2024 13:49-0500 Diastolic blood pressure 70 mm[Hg] Berto Luis DO Work Phone: [facility] 06-07-2024 13:49-0500 Systolic blood pressure 120 mm[Hg] Berto Luis DO Work Phone: [facility] 05-24-2024 14:26-0500 Body mass index (BMI) [Ratio] 33.75 kg/m2 Little Nassau PA Work Phone: [facility] 05-24-2024 14:26-0500 Body weight 91.99 kg Little Ezra PA Work Phone: [facility] 05-24-2024 14:26-0500 Diastolic blood pressure 70 mm[Hg] Little Ezra PA Work Phone: [facility] 05-24-2024 14:26-0500 Systolic blood pressure 108 mm[Hg] Little Ezra PA Work Phone: [facility] 05-09-2024 11:44-0500 Body mass index (BMI) [Ratio] 33.28 kg/m2 Berto Luis DO Work Phone: [facility] 05-09-2024 11:44-0500 Body weight 90.72 kg Berto Luis DO Work Phone: [facility] 05-09-2024 11:44-0500 Diastolic blood pressure 64 mm[Hg] Berto Luis DO Work Phone: [facility] 05-09-2024 11:44-0500 Systolic blood pressure 118 mm[Hg] Berto Luis DO Work Phone: [facility] 04-11-2024 10:37-0400 Body mass index (BMI) [Ratio] 31.12 kg/m2 Little Christie PA Work Phone: [facility] 04-11-2024 10:37-0400 Body weight 84.82 kg Little Ezra PA Work Phone: [facility] 04-11-2024 10:37-0400 Diastolic blood pressure 68 mm[Hg] Little Christie PA Work Phone: [facility] 04-11-2024 10:37-0400 Systolic blood pressure 116 mm[Hg] Little Ezra PA Work Phone: [facility] 03-14-2024 11:44-0400 Body mass index (BMI) [Ratio] 28.62 kg/m2 Berto Luis DO Work Phone: [facility] 03-14-2024 11:44-0400 Body weight 78.02 kg Berto Luis DO Work Phone: [facility] 03-14-2024 11:44-0400 Diastolic blood pressure 74 mm[Hg] Berto Luis DO Work Phone: [facility] 03-14-2024 11:44-0400 Systolic blood pressure 118 mm[Hg] Berto Luis DO Work Phone: [facility] 02-27-2023 14:39-0400 Blood Pressure Location Gary [facility]ORR[facility] 02-27-2023 14:39-0400 Diastolic blood pressure 66 mm[Hg] Gary [facility] 02-27-2023 14:39-0400 Heart rate 70 /min Gary MORRIS [facility] 02-27-2023 14:39-0400 Respiratory rate 16 /min Gary MORRIS [facility] 02-27-2023 14:39-0400 Systolic blood pressure 106 mm[Hg] Gary MORRIS [facility] 01-08-2022 08:09-0400 Body temperature 98.01 [degF] Wiley Rice DO Work Phone: [employer] 01-08-2022 08:09-0400 Body weight 75.75 kg Wiley Rice DO Work Phone: [employer] 01-08-2022 08:09-0400 Diastolic blood pressure 71 mm[Hg] Wiley Rice DO Work Phone: [employer] 01-08-2022 08:09-0400 Heart rate 98 /min Wiley Rice DO Work Phone: [employer] 01-08-2022 08:09-0400 Systolic blood pressure 112 mm[Hg] Wiley Rice DO Work Phone: [employer] 12-10-2021 14:45-0400 Body height 166.37 cm Bret Long Other [employer] Other 12-10-2021 14:45-0400 Body mass index (BMI) [Ratio] 26.55 kg/m2 Bret Long Other [employer] Other 12-10-2021 14:45-0400 Body weight 73.48 kg Bret Long Other [employer] Other 12-10-2021 14:45-0400 Diastolic blood pressure 72 mm[Hg] Bret Long Other [employer] Other 12-10-2021 14:45-0400 Systolic blood pressure 103 mm[Hg] Bret Long Other [employer] Other 11-27-2021 14:01-0400 Body temperature 98.4 [degF] Wiley Rice DO Work Phone: [employer] 11-27-2021 14:01-0400 Body weight 74.84 kg Wiley Rice DO Work Phone: [employer] 11-27-2021 14:01-0400 Diastolic blood pressure 64 mm[Hg] Wiley Rice DO Work Phone: [facility] 11-27-2021 14:01-0400 Heart rate 98 /min Wiley Rice DO Work Phone: [employer] 11-27-2021 14:01-0400 Systolic blood pressure 121 mm[Hg] Wiley Rice DO Work Phone: [facility] 12-05-2020 19:26-0400 Heart rate 106 /min James Breece PA-C Work Phone: [facility] 12-05-2020 19:25-0400 Body temperature 98.29 [degF] James Breece PA-C Work Phone: [facility] 12-05-2020 19:25-0400 Body weight 97.98 kg James Breece PA-C Work Phone: [facility] 12-05-2020 19:25-0400 Diastolic blood pressure 86 mm[Hg] James Breece PA-C Work Phone: [facility] 12-05-2020 19:25-0400 Respiratory rate 16 /min James Breece PA-C Work Phone: [facility] 12-05-2020 19:25-0400 SaO2% (BldA) [Mass fraction] 97 % James Churchill PA-C Work Phone: [facility] 12-05-2020 19:25-0400 Systolic blood pressure 126 mm[Hg] James LOWRY-C Work Phone: [facility] Encounters Encounter Date Encounter Type Care Provider Facility Start: 07-18-2024 End: 07-18-2024 Bamboo flowsheet Berto Luis DO Work Phone: [facility] Start: 07-18-2024 End: 07-18-2024 Bamboo flowsheet Ebrto Luis DO Work Phone: [facility] Start: 07-18-2024 End: 07-18-2024 Office outpatient visit 15 minutes Berto Luis DO Work Phone: [facility] Comment on above: 36 weeks gestation o f ; Third trimester ; H/O cold sores Start: 07-04-2024 End: 07-04-2024 Bamboo flowsheet Little LOWRY Work Phone: [facility] Start: 07-04-2024 End: 07-04-2024 Bamboo flowsheet Little LOWRY Work Phone: [facility] Start: 07-04-2024 End: 07-04-2024 Clinisync Result Encounter Berto Luis DO Work Phone: [facility] External Department Unsolicited Start: 07-04-2024 End: 07-04-2024 [...] Bamboo flowsheet Berto Luis DO Work Phone: [facility] Start: 05-09-2024 End: 05-09-2024 Office outpatient visit 15 minutes Berto Luis DO Work Phone: [facility] Comment on above: Second trimester pre gnancy; 26 weeks gestation of ; History of miscarriage Start: 05-09-2024 End: 05-09-2024 ambulatory BERTO LUIS Not Available Start: 04-11-2024 End: 04-11-2024 Bamboo flowsheet Little LOWRY Work Phone: [facility] Start: 04-11-2024 End: 04-11-2024 Bamboo flowsheet Little LOWRY Work Phone: [facility] Start: 04-11-2024 End: 04-11-2024 Office outpatient visit 15 minutes Little LOWRY Work Phone: [facility] Comment on above: Second trimester pre gnancy; 22 weeks gestation of ; Diabetes mellitus screening Start: 04-11-2024 End: 04-11-2024 ambulatory LITTLE CHRISTIE Not Available Start: 03-23-2024 End: 03-23-2024 ambulatory BERTO R LUIS [facility] Start: 03-14-2024 End: 03-14-2024 Bamboo flowsheet Berto Luis DO Work Phone: [facility] Start: 03-14-2024 End: 03-14-2024 Bamboo flowsheet Berto Luis DO Work Phone: [facility] Start: 03-14-2024 End: 03-14-2024 Office outpatient visit 15 minutes Berto Luis DO Work Phone: [facility] Comment on above: Second trimester pre gnancy Start: 03-14-2024 End: 03-14-2024 ambulatory BERTO LUIS Not Available Start: 02-15-2024 End: 02-15-2024 ambulatory LITTLE EZAR Not Available Start: 01-20-2024 End: 01-20-2024 ambulatory BERTO LUIS Not Available Start: 01-01-2024 End: 01-01-2024 ambulatory LITTLE CHRISTIE Not Available Start: 12-17-2023 End: 12-17-2023 ambulatory LITTLE CHRISTIE Not Available Start: 02-27-2023 End: 02-28-2023 ambulatory Gary MORRIS Facility:[facility] Start: 02-27-2023 End: 02-27-2023 Patient encounter procedure Gary Howell [facility] Start: 02-23-2023 ambulatory Alexandr Bourgeois Facility:[facility] Start: 02-05-2023 ambulatory Gary MORRIS Facility:[facility] Start: 11-07-2022 End: 11-08-[address] HOMAR [...] BELTRAN . Facility:[facility] Start: 02-18-2022 ambulatory WILEY Huffman~[id number] YVONNE OSORIO [facility] Start: 02-12-2022 ambulatory WILEY Huffman~[id number] YVONNE OSORIO [facility] Start: 02-12-2022 End: 02-12-2022 Telemedicine consultation with patient Wiley Osorio DO Work Phone: [facility] Comment on above: Anxiety (Primary Dx) Start: 01-19-2022 Refill Luis Dipalma D O Work Phone: [facility] Start: 01-19-2022 Refill Luis Dipalma D O Work Phone: [facility] Start: 01-08-2022 End: 01-08-2022 ambulatory WILEY Huffman~[id number] YVONNE OSORIO [facility] Start: 01-08-2022 End: 01-08-2022 Office outpatient visit 25 minutes Wiley Huffman Rice DO Work Phone: [facility] Comment on above: Anxiety (Primary Dx) ; Hypotension, unspecified hypotension type Start: 01-08-2022 End: 01-08-2022 Patient encounter procedure Wiley Huffman Rice DO Work Phone: [facility] Start: 12-11-2021 End: 12-11-2021 ambulatory WILEY Huffman~[id number] LEONIA YVONNE [facility] Start: 12-10-2021 End: 12-10-2021 ambulatory Bret Long Other [employer] Other Start: 12-10-2021 Office outpatient ne w 45 minutes Bret Long [facility] Start: 11-27-2021 End: 11-27-2021 ambulatory WILEY Huffman~[id number] [facility] Start: 11-27-2021 End: 11-27-2021 Office outpatient new 30 minutes Wiley Huffman Rice DO Work Phone: [facility] Comment on above: Anxiety (Primary Dx) Start: 11-27-2021 End: 11-27-2021 Patient encounter procedure Wiley Huffman Rice DO Work Phone: [facility] Start: 11-25-2021 Telephone encounter Dana Kinsey [facility] Start: 12-05-2020 End: 12-05-2020 ambulatory PHYSICIAN NO [facility] Start: 12-05-2020 End: 12-05-2020 Office outpatient new 20 minutes James DENNYC Work Phone: [facility] [place] Comment on above: Vaginal sore (Primar y Dx) Start: 02-19-2017 End: 02-19-2017 Emergency department patient visit KIM SUTHER[facility] Procedures Date Procedure Procedure Detail Performing Clinician Start: 07-18-2024 Urnls dip stick/tabl et rgnt non-auto w/o micrscp Berto Luis DO Work Phone: Start: 07-04-2024 ALL CBC WITH AUTO DIFF [...] Treatment Date Care Activity Detail Author Start: 07-27-2024 End: 07-27-2024 Patient encounter procedure 07/27/2024 8:50 AM EST Routine [facility] [address] [facility] [place] [phone] Little Christie, PA [address] [place] [address] [place], [place] [id number] [facility] Start: 07-18-2024 End: 07-18-2025 CULTURE, GROUP B STREP WITH SUSCEPTIBLITY CULTURE, GROUP B STREP WITH SUSCEPTIBLITY Lab Routine Third trimester Expected: 07/18/2024, Expires: 07/18/2025 [facility] Work Phone: Comment on above: Expected: 07/18/2024 , Expires: 07/18/2025 Start: 07-18-2024 End: 07-18-2024 Patient encounter procedure [facility] Comment on above: Arrived Start: 07-04-2024 End: 07-04-2024 Patient encounter procedure 07/04/2024 11:50 AM EST Routine [facility] [address] [facility] [place] [place] [phone] Little Christie, PA [address] [place] [address] [facility] Start: 06-21-2024 End: 06-21-2024 Patient encounter procedure 06/21/2024 1:20 PM EST Routine [facility] [address] [place] [phone] Little Christie, PA [address] [place] [address] [facility] Start: 06-07-2024 End: 06-07-2024 Patient encounter procedure 06/07/2024 1:30 PM EST Routine [facility] [address] [facility] [place] [phone] Berto Smith DO [address] [place], [place] [id number] [facility] Start: 05-24-2024 End: 05-24-2024 Patient encounter procedure 05/24/2024 2:10 PM EST Routine [facility] [address] [facility] [place] [address] Little Christie, PA [address] [place], [place] [id number] Arrived [facility] Comment on above: Arrived Start: 05-23-2024 End: 05-23-2024 Patient encounter procedure 05/23/2024 1:50 PM EST Routine [facility] [address] [facility] [place] [address] Little Christie, PA [address] [place], [place] [id number] [facility] Start: 05-09-2024 End: 05-09-2025 [...] mellitus screening Expected: 04/11/2024 (Approximate), Expires: 04/11/2025 [facility] Work Phone: Comment on above: Expected: 04/11/2024 (Approximate), Expires: 04/11/2025 Start: 04-11-2024 End: 04-11-2025 Measurement of glucose 1 hour after glucose challenge for glucose tolerance test Glucose tolerance, 1 hour Lab Routine Diabetes mellitus screening Expected: 04/11/2024 (Approximate), Expires: 04/11/2025 [facility] Comment on above: Expected: 04/11/2024 (Approximate), Expires: 04/11/2025 Start: 04-11-2024 End: 04-11-2024 Patient encounter procedure [facility] Comment on above: Arrived Start: 03-14-2024 End: 03-14-2024 Patient encounter procedure 03/14/2024 11:20 AM EDT Routine [facility] [address] [facility] [place] [phone] Berto Smith, DO [address] [place], [place] [address] Arrived [facility] Comment on above: Arrived Start: 03-06-2024 Influenza vaccination Influenza Vacc ine (#1) [facility] Start: 11-27-2022 Adolescent depressio n screening assessment Depression Screening [facility] Start: 03-06-2022 Influenza vaccination [facility] Start: 02-07-2022 End: 02-07-2022 Patient encounter procedure 02/07/2022 Office Visit Family Medicine Wiley Osorio DO [address] [place] [phone] [facility] Start: 12-19-2021 End: 12-19-2021 Patient encounter procedure 12/19/2021 Office Visit Family Medicine Wiley Osorio DO [address] [place] [phone] [facility] Start: 12-07-2021 COVID-19 Vaccine (3 - Booster for Moderna series) COVID-19 Vaccine (3 - Booster for Moderna series) [facility] Start: 11-27-2021 End: 11-27-2021 Patient encounter procedure 11/27/2021 Office Visit Family Medicine Wiley Osorio, [address] [place] [address] [facility] Start: 11-24-2021 Adolescent depressio n screening assessment Depression Screening [facility] Start: 11-24-2021 Hepatitis C screening [facility] C [facility] Start: 11-24-2021 HIV screening HIV Screening [facility] Start: 11-24-2021 Social Influencers o f Health Screening Social Influencers of Health Screening [facility] Start: 03-06-2021 Influenza vaccination Sequenti al Influenza Vaccine (Season Ended) [facility] Start: 2017 Screening for malign ant neoplasm of cervix Cervical Cancer Screening: Pap Smear [facility] Start: 2015 DTaP,Tdap,and Td Vaccines (1 - Tdap) DTaP,Tdap,and Td Vaccines (1 - Tdap) [facility] Start: 2014 Hepatitis C screening Hepatitis C [facility] Start: 2011 HIV screening HIV Screening [facility] Start: 2008 COVID-19 Vaccine (1) COVID-19 Vaccin e (1) [facility] Start: 2008 Depression screening using PHQ-9 (Patient Health Questionnaire 9) score Depression Screening (PHQ9) [facility] Start: 2007 HPV Vaccines (1 - 2- dose series) HPV Vaccines (1 - 2-dose series) [facility] Start: 2007 Vaccination for april n papillomavirus HPV Vaccines (1 - 2-dose series) [facility] Start: 2001 COVID-19 Vaccine (1) COVID-19 Vaccin e (1) [facility] Start: 1999 History and physical examination, annual for health maintenance Wellness Visit [facility] Start: 1996 Screening for Chlamy marilee trachomatis Chlamydia Screening [facility] Start: 1996 Screening for malign ant neoplasm of cervix Pap Smear [facility] Start: 1996 Tetanus vaccination Tetanus: Every 1 0yrs [facility] Chlamydia trachomati s rRNA assay Chlamydia/GC/Trichomona s Amplified RNA Microbiology Routine Vaginal sore Ordered: 12/05/2020 [facility] Comment on above: Ordered: 12/05/2020 HSV by PCR Superfici al Site HSV by PCR Superficial Site Lab Routine Vaginal sore Ordered: 12/05/2020 [facility] Comment on above: Ordered: 12/05/2020 Neisseria gonorrhoea e nucleic acid detection Chlamydia/Gonorrhoeae Amplified RNA Microbiology Routine Vaginal sore Ordered: 12/05/2020 [facility] Comment on above: Ordered: 12/05/2020 Trichomonas vaginali s Amplified RNA Trichomonas vaginalis Amplified RNA Microbiology Routine Vaginal sore Ordered: 12/05/2020 [facility] Comment on above: Ordered: 12/05/2020 Immunizations Immunization Date Immunization Notes [facility] SARS-CoV-2 (COVID-19 ) mRNA-1273 vaccine Gary ALEXANDRA [facility] 06-08-2021 SARS-CoV-2 (COVID-19 ) mRNA-1273 vaccine Gary ALEXANDRA [facility] 04-10-2011 influenza virus vaccine, unspecified formulation Berto Smith DO Work Phone: [facility] Payers Date Payer Category Payer Private Health Insurance [facility] MEDICAID [id number] 2021 Medicaid [id number] 2020 Medicaid [id number] [id number]. [id number] 2016 Unknown [id number] 2013 Unknown [id number] 1996 Unknown [id number] 2.16.840.1.059143.3.579.2. 903 1996 Unknown [id number] 2.16.840.1.004223.3.579.2. 1143 1996 Unknown [id number] 2.16.840.1.224686.3.579.2. 1143 1996 Unknown [id number] 2.16.840.1.363985.3.579.2. 1143 1996 Unknown [id number] 2.16.840.1.948439.3.579.2. 1143 1996 Unknown [id number] 2.16.840.1.676525.3.579.2. 1143 1996 Unknown [id number] 2.16.840.1.008345.3.579.2. 593 1996 Unknown [id number] 2.16.840.1.116103.3.579.2. 593 1996 Unknown [id number] 2.16.840.1.536241.3.579.2. 593 1996 Unknown [id number] 2.16.840.1.172800.3.579.2. 593 1996 Unknown [id number] 2.16.840.1.698146.3.579.2. 593 1996 Unknown [id number] 2.16.840.1.130938.3.579.2. 593 1996 Unknown [id number] 2.16.840.1.068373.3.579.2. 593 1996 Unknown [id number] 2.16.840.1.578289.3.579.2. 727 1996 Unknown [id number] 2.16.840.1.221998.3.579.2. 1286 1996 Unknown [id number] 2.16.840.1.769004.3.579.2. 1286 1996 Unknown [id number] 2.16.840.1.497242.3.579.2. 1259 1996 Unknown [id number] 2.16.840.1.680966.3.579.2. 9 1996 Unknown [id number] 2.16.840.1.329348.3.579.2. 9 1996 Unknown [id number] 2.16.840.1.500401.3.579.2. 1258 1996 Unknown [id number] 2.16.840.1.804701.3.579.2. 9 1996 Unknown [id number] 2.16.840.1.401334.3.579.2. 9 1996 Unknown [id number] 2.16.840.1.408633.3.579.2. 1259 1996 Unknown [id number] 2.16.840.1.440807.3.579.2. 1258 1996 Unknown [id number] 2.16.840.1.939006.3.579.2. 1259 1996 Unknown [id number] 2.16.840.1.651649.3.579.2. 1258 1996 Unknown [id number] 2.16.840.1.700926.3.579.2. 1259 1960 Unknown [id number] 2.16.840.1.841867.3.579.2. 727 1959 Medicaid [id number] 1959 Self-pay 1959 Unknown [id number] 1959 Unknown [id number] 1959 Unknown [id number] Unknown [id number] 2.16.840.1.919949.3.579.2. 531 Social History Date Type Detail Facility Start: 12-05-2020 End: 02-27-2023 Tobacco smoking status NHIS Never smoker [facility] Start: 12-05-2020 End: 11-27-2021 Tobacco use and exposure Never used [facility] Start: 12-05-2020 Alcohol intake Current drinke r of alcohol (finding) [facility] Start: 12-05-2020 End: 11-27-2021 History SDOH Alcohol Frequency 1 [facility] Start: 12-05-2020 Alcohol Comment occ [facility] Start: 1996 [facility] Start: 11-17-2021 End: 02-12-2022 Exposure to SARS-CoV-2 (event) Not sure [facility] Tobacco smoking stat [facility] Tobacco smoking consumption unknown [facility] Start: 11-27-2021 End: 07-18-2024 Alcohol intake Lifetime non-drinker (finding) [facility] Start: 1995 Sex Assigned At Female [facility] Start: 12-17-2023 Sex Assigned At F [facility] Tobacco smoking status Never [facility] Start: 03-28-2023 Tobacco smoking stat [facility] Ex-smoker [facility] History of tobacco use Current smoker [facility] History of tobacco use Cigarette Smoker [facility] Start: 12-17-2023 History of Social function [facility] Start: 11-17-2023 [facility] Start: 01-19-2023 Gender identity Identifies as female gender (finding) [facility] Functional Status Date Assessment Result Facility 02-27-2023 Functional Status N/A [facility] fannie [place] Clinical Notes 12-05-2020 to 07-18-2024 Shalonda Tse LPN - 07/18/2024 10:00 AM ESSENCE Mahan - 07/04/2024 11:50 AM ESSENCE Mahan - 06/21/2024 1:20 PM Zohreh Bradley LPN - 06/07/2024 1:20 PM ESSENCE Mahan - 05/24/2024 2:10 PM EST Note Date & Type Note Facility 07-18-2024 History of Present illness Narrative Reason for [...] 27-1 MG tablet 1 tablet, Oral, Daily valACYclovir (VALTREX) 500 mg, Oral, Daily ALLERGIES No Known Allergies PROBLEMS Active Ambulatory Problems Diagnosis Date Noted History of miscarriage 05/09/2024 26 weeks gestation of 05/09/2024 Third trimester 07/04/2024 34 weeks gestation of 07/04/2024 Resolved Ambulatory Problems Diagnosis Date Noted No [...] Constitutional: Appearance: Normal appearance. She is well-developed. Genitourinary: Vulva normal. Cardiovascular: Rate and Rhythm: Normal rate [...] nursing note reviewed. Exam conducted with a knuckle bender present. Vitals: Estimated body mass index is 36.91 kg/m as calculated from the following: Height as of 23: 5' 5 . Weight as of this encounter: 221 lb 12.8 oz. BP: 130/70 Patient's last menstrual period was 11/03/2023. ASSESSMENT & PLAN ICD-10-CM 1. 36 weeks gestation of Z3A.36 POCT urinalysis dipstick manually resulted 2. Third trimester Z34.93 POCT urinalysis dipstick manually resulted CULTURE, GROUP B STREP WITH SUSCEPTIBLITY CULTURE, GROUP B STREP WITH SUSCEPTIBLITY 3. H/O cold sores Z86.19 valACYclovir (Valtrex) 500 MG tablet Patient is doing well but has complaints of being tired and having maternal discomfort due to . Patient verbalized frequent movement and was instructed to perform kick counts three times per day. labor precautions were given, LARC consent was signed/declined, and GBS was obtained. Cervical check was performed and patient is 1cm dilated. Orders Placed This Encounter Procedures CULTURE, GROUP B STREP WITH SUSCEPTIBLITY POCT urinalysis dipstick manually resulted Follow Up: Patient is to return to office in 1 week for routine OB appointment Documented by Shalonda Tse LPN on behalf of: Berto Smith DO documented in this encounter [facility] 07-04-2024 History of Present illness Narrative Reason [...] nursing note reviewed. Exam conducted with a knuckle bender present. Vitals: Estimated body mass index is [...] ESSENCE Haley documented in this encounter [facility] 06-21-2024 History of Present illness [...] nursing note reviewed. Exam conducted with a knuckle bender present. Vitals: Estimated body mass index is [...] Little Christie PA-C documented in this encounter [facility] 06-07-2024 History of Present illness [...] nursing note reviewed. Exam conducted with a knuckle bender present. Vitals: Estimated body mass index is [...] Smith DO documented in this encounter [facility] 05-24-2024 History of Present illness [...] calculated from the following: Height as of 23: 5' 5 . Weight as of this [...] ESSENCE Haley documented in this encounter [facility] 05-09-2024 History of Present illness [...] nursing note reviewed. Exam conducted with a knuckle bender present. Vitals: Estimated body mass index is [...] Smith DO documented in this encounter [facility] 04-11-2024 History of Present illness [...] ESSENCE Haley documented in this encounter [facility] 03-14-2024 History of Present illness [...] nursing note reviewed. Exam conducted with a knuckle bender present. Vitals: Estimated body mass index is [...] Smith DO documented in this encounter [facility] 02-27-2023 Note Chief Complaint consultation [...] with excisional biopsy under local anesthesia at [facility]; call with problems/questions. Follow-up No qualifying [...] Recorded SARS-CoV-2 (COVID-19) mRNA-1273 vaccine 06/08/2021 Recorded [facility] Comment on above: Result Comment: Elec tronically Signed By: ALEXANDRA RANGEL, Gary Jackson\Date and Time Signed: 02/27/23 16:20 EDT 02-12-2022 History of Present illness Narrative Attempted to complete Mchart and patient was not online despite speaking to [place] prior to appointment. Attempted to call on phone 3 separate times before noon with no answer. May reschedule at later date. documented in this encounter [facility] 01-08-2022 History of Present illness Narrative [...] due to buspirone. documented in this encounter [facility] 12-10-2021 Evaluation note Encounter Date Diagnosis Assessment Notes Dec, Irritable bowel syndrome with diarrhea (ICD-10 - K58.0) Continue medications without change Dec, Epigastric pain (ICD-10 - R10.13) Dec, Chronic nausea (ICD-10 - R11.0) Dec, Family history of carcinoma in situ of anal canal (ICD-10 - Z84.89) Dec, Other Continue Zofran prn Pt to call if symptoms worsen [employer] Other 05-25-2022 History of Present illness Narrative* Wiley Osorio DO - 11/27/2021 2:00 PM EDT Subjective Patient ID: Leslie Ford is a 26 y.o. female. Chief Complaint Patient presents with [facility] 26 y.o. female [facility]. History of anxiety and depression. Has [...] it ( July 2017) documented in this encounterN[facility] [id number] History of Present illness Narrative* Dana Rosario [...] like me to do? documented in this encounterNazareth [id number] History of Present illness Narrative* James Churchill PA-C - 12/05/2020 8:22 PM EDT Images from the original note were not included. Patient Name: [facility] Location: [place] [id number] Date Of : Date Of Visit: 1995 12/05/2020 MRN# Provider: [id number] James Churchill PA-C Chief Complaint Patient presents [...] urine from irritatingthe sores. ? Take an amok-bix-weelzsm pain medicine, such as acetaminophen (Tylenol), ibuprofen [...] Log into your personal health record on [email or web address] and enter E579 in the Education box to learn more about Genital Herpes: Care Instructions. Current as of: August 31, 2019 Content Version: 12.8 [employer]. Care instructions adapted under license by your healthcare professional. If you have questions about a medical condition or this instruction, always ask your healthcare professional. [employer] disclaims any warranty or liability for your use of this information. documented in this [id number] Instructions* Patient Instructions* James Churchill PA-C - [...] urine from irritatingthe sores. ? Take an waic-cfd-obgmxwq pain medicine, such as acetaminophen (Tylenol), ibuprofen [...] Log into your personal health record on [email or web address] and enter E579 in the Education box to learn more about Genital Herpes: Care Instructions. Current as of: August 31, 2019 Content Version: 12.8 [employer]. Care instructions adapted under license by your healthcare professional. If you have questions about a medical condition or this instruction, always ask your healthcare professional. [employer] disclaims any warranty or liability for your use of this information. documented in this encounterOhio[facility] HospitalEvaluation + Plan note No data available for this section [facility]* Diagnosis Vaginal sore- Primary documented in this encounter [facility] note* Diagnosis Anxiety- Primary Anxiety state, unspecified [facility] Diagnosis Anxiety- Primary Anxiety state, unspecified Hypotension, unspecified hypotension type [facility]* Diagnosis Anxiety- Primary Anxiety state, unspecified [facility]* Diagnosis Second trimester state, incidental 22 weeks gestation of Diabetes mellitus screening Screening for diabetes mellitus documented in this encounter [facility]* Diagnosis Second trimester state, incidental 26 weeks gestation of History of miscarriage Personal history of other genital system and obstetric disorders documented in this encounter [facility]* Diagnosis 31 weeks gestation of Third trimester state, incidental Gastroesophageal reflux in documented in this encounter [facility]* Diagnosis Third trimester state, incidental 33 weeks gestation of documented in this encounter [facility]* Diagnosis Second trimester state, incidental documented in this encounter [facility]* Diagnosis Third trimester state, incidental 29 weeks gestation of Upper respiratory tract infection, unspecified type documented in this encounter [facility]* Diagnosis Third trimester state, incidental 34 weeks gestation of documented in this encounter [facility]* Diagnosis 36 weeks gestation of Third trimester state, incidental H/O cold sores documented in this encounter [facility] Narrative - Reported* Type Description Date Medical History [facility] [employer] Other Hospital Discharge instructions No data [...] Documents on File Type Date Recorded 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 Advance Directives and Living Will Documents on File Type Date Recorded 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 Power of Veterinarian Additional Source Comments INFORMATION SOURCE (unrecogn ized section and content) DATE CREATED AUTHOR 12/30/2017 [facility] DATE CREATED AUTHOR AUTHOR'S ORGANIZ ATION 12/06/2020 [facility] DATE CREATED AUTHOR AUTHOR'S ORGANIZ ATION 02/16/2022 [facility] DATE CREATED AUTHOR AUTHOR'S ORGANIZ ATION 02/27/2022 [facility] DATE CREATED AUTHOR AUTHOR'S ORGANIZ ATION 11/14/2022 [facility] DATE CREATED AUTHOR AUTHOR'S ORGANIZ ATION 03/02/2023 [facility] DATE CREATED AUTHOR AUTHOR'S ORGANIZ ATION 07/05/2023 [facility] DATE CREATED AUTHOR AUTHOR'S ORGANIZ ATION 03/25/2024 [facility] DATE CREATED AUTHOR AUTHOR'S ORGANIZ ATION 07/05/2024 [facility] dical Specialists EPIC Reason for [...] Care Teams (unrecognized sec tion and content) 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 Relationship Specialty Start Date End Date Wiley Osorio, DO [address] [place] [phone] PCP - General Family Medicine 11/27/21 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 Relationship Specialty Start Date End Date Lalito Osoriolenigel Huffman, DO [address] [place] [phone] PCP - General Family Medicine 11/27/21 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 Relationship Specialty Start Date End Date Lalito Osoriolenigel Huffman, DO [address] [place] [phone] PCP - General Family Medicine 11/27/21 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 Relationship Specialty Start Date End Date Homar Beltran MD [address] [place] [address] PCP - General Family Medicine 01/20/23 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 Relationship Specialty Start Date End Date Homar Beltran MD [address] [place] [address] PCP - General Family Medicine 01/20/23 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 Relationship Specialty Start Date End Date Homar Beltran MD [address] [place] [address] PCP - General Family Medicine 01/20/23 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 Relationship Specialty Start Date End Date Homar Beltran MD [address] [place] [facility] [address] PCP - General Family Medicine 01/20/23 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 Relationship Specialty Start Date End Date Homar Beltran MD [address] [place] [facility] [address] PCP - General Family Medicine 01/20/23 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 Relationship Specialty Start Date End Date Homar Beltran MD [address] [place] [address] PCP - General Family Medicine 01/20/23 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 Relationship Specialty Start Date End Date Homar Beltran MD [address] [place] [address] PCP - General Family Medicine 01/20/23 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 Relationship Specialty Start Date End Date Homar Beltran MD [address] [place] [address] PCP - General Family Medicine 01/20/23 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 Relationship Specialty Start Date End Date Homar Beltran MD [address] [place] [address] PCP - General Family Medicine 01/20/23 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 Relationship Specialty Start Date End Date Homar Beltran MD [address] [facility] [address] PCP - General Family Medicine 01/20/23 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 Relationship Specialty Start Date End Date Homar Beltran MD [address] [place] [phone] PCP - General Family Medicine 01/20/23 FOR [...] BE BASED ON THE PRIMARY CLINICAL RECORDS. [facility] [facility]. provides no warranty or guarantee of the accuracy or completeness of information in this [id number]
== END 2024-07-18 20:47 | disposition home or self-care (01) ==
LOC: LAB 20:46
PROVIDERS: PCP Family Medicine; Visit Provider Obstetrics & Gynecology
DX: Z34.93 Encounter for supervision of normal pregnancy, unspecified, third trimester (principal)
CPT/HCPCS: 36415; 87081

== ENCOUNTER 2024-07-22 00:31 | Outpatient (OUT) | payer OTHER, SELFPAY ==
--- OUTSIDE RECORDS SUMMARY | 2024-07-21 01:04 | XMS_ITS | CCD ---
Author Organization [facility] Care Team Providers Care Wig Stylist Name Role Phone KIM SUTHERLAND Unavailable Unavailable WILLY CONKLIN Unavailable Unavailable HOMAR BELTRAN Unavailable Unavailable HOMAR BELTRAN Unavailable Unavailable No, Physician Primary Care Provider Unavailsuman e FINN, PHYSICIAN Primary Care Unavailable JAMES ALCAZAR Attending Unavailable Unavailable Primary Care Provider Unavailsuman e Wiley Osorio DO Primary Care Provider Bret Long Unavailable RICE RICE, WILEY WILEY M~[id number] Attending Unavailable RICE RICE, WILEY WILEY M~[id number] Primary Ca re Unavailable RICE RICE, WILEY WILEY M~[id number] Attending Unavailable RICE RICE, WILEY WILEY M~[id number] Primary Ca re Unavailable RICE RICE, WILEY WILEY M~[id number] Attending Unavailable RICE RICE, WILEY WILEY M~[id number] Primary Ca re Unavailable RICE RICE, WILEY WILEY M~[id number] Attending Unavailable RICE RICE, WILEY WILEY M~[id number] Primary Ca re Unavailable RICE RICE, WILEY WILEY M~[id number] Referring Unavailable RICE RICE, WILEY WILEY M~[id number] Primary Ca re Unavailable ITA REYES Admitting [...] Care Unavailable CLAUDE KHAN Primary Care Physician [phone] Gary MORRIS Attending Unavailable ChristelleAlexandr graham Attending Unavailab Alexandr Ventura Admitting Unavailab Homar Mcgowan Primary Care Unavailable LUIS, BERTO R Referring Unavailable HOMAR BELTRAN Primary Care Unavailable SENAIT MARTIN Attending Unavailable LUIS, BERTO R Referring Unavailable HOMAR BELTRAN Primary Care Unavailable Homar Beltran MD Primary Care Provider [phone] EZRA, LITTLE Attending Unavailable LUIS, BERTO [...] Medication Allergies] Propensity to adverse reactions (disorder) [facility] Medications Current Medications Medication Drug Class(es) [...] UA Negative Negative - 4(70) +++ mg/dL [facility] Blood, UA Negative Negative - 50 Angel Luis/mcL [facility] Clarity, UA Clear [facility] Color, UA Miryam [facility] Glucose, UA Negative Negative - 2000(110) ++++ mg/dL [facility] Interpretation and review of laboratory results Abnormal [facility] Ketones, UA Positive Negative - 160(16) ++++ mg/dL [facility] Comment on above: 15 Leukocytes, UA Negative Negative - 500+++ Drew/mcL [facility] Nitrite, UA Negative Negative - Positive [facility] pH, UA 7 5 - 9 [facility] Protein, UA Positive Negative - 1999(20) ++++ mg/dL [facility] Comment on above: 30 Spec Grav, UA 1.025 1 - 1.03 [facility] Urobilinogen, UA 0.2 0.2 - 12 mg/dL [facility] ALL CBC WITH AUTO DIFFon BASOPHILS ABSOLUTE AUTO 0.1 [facility] Basophils/100 WBC (Bld) 0.5 % 0.2 - 2.0 % [facility] Eosinophils/100 WBC (Bld) 1.2 % 0.9 - 7.0 % [facility] Erythrocyte distribution width (RBC) [Ratio] 13.3 % 11.0 - 15.0 % [facility] Hematocrit (Bld) [Volume fraction] 34.6 % Low 36.0 - 48.0 % [facility] Hemoglobin (Bld) [Mass/Vol] 11.1 g/dL Low 12.0 - 16.0 g/dL [facility] IMMATURE GRANULOCYTES ABS AUTO 0.22 High [facility] Immature granulocytes/100 WBC (Bld) 1.3 % High 0.0 - 0.5 % [facility] Interpretation and review of laboratory results Abnormal [facility] LYMPHOCYTES ABSOLUTE AUTO 3 [facility] Lymphocytes/100 WBC (Bld) 18.2 % Low 20.5 - 60.0 % [facility] MCH (RBC) [Entitic mass] 26.1 pg Low 26.7 - 34.0 pg [facility] MCHC (RBC) [Mass/Vol] 32.1 g/dL 29.9 - 35.2 g/dL [facility] MCV (RBC) [Entitic vol] 81.4 fL 81.0 - 99.0 fL [facility] MONOCYTES ABSOLUTE AUTO 1.3 High [facility] Monocytes/100 WBC (Bld) 7.7 % 1.7 - 12.0 % [facility] NEUTROPHILS ABSOLUTE AUTO 11.6 High [facility] Neutrophils/100 WBC (Bld) 71.1 % 43.0 - 75.0 % [facility] Platelet mean volume (Bld) [Entitic vol] 9.7 fL 9.5 - 13.5 fL [facility] TBH EO # 0.2 [facility] TB PLT 349 [facility] RBC 4.25 [facility] WBC 16.3 High [facility] Urinalysis macro (dipstick) panel (U)on 07-04-2024 Bilirubin, UA Negative Negative - 4(70) +++ mg/dL [facility] Blood, UA Negative Negative - 50 Angel Luis/mcL [facility] Clarity, UA Cloudy [facility] Color, UA Yellow [facility] Glucose, UA Negative Negative - 1999(110) ++++ mg/dL [facility] Interpretation and review of laboratory results Abnormal [facility] Ketones, UA Positive Negative - 160(16) ++++ mg/dL [facility] Comment on above: 40mg/dL Leukocytes, UA Few Negative - 500+++ Drew/mcL [facility] Comment on above: small Nitrite, UA Negative Negative - Positive [facility] pH, UA 7 5 - 9 [facility] Protein, UA Few Negative - 1999(20) ++++ mg/dL [facility] Comment on above: 30mg/dL Spec Grav, UA 1.025 1 - 1.03 [facility] Urobilinogen, UA 0.2 0.2 - 12 mg/dL [facility] Urinalysis macro (dipstick) panel (U)on 06-21-2024 Bilirubin, UA Negative Negative - 4(70) +++ mg/dL [facility] Blood, UA Negative Negative - 50 Angel Luis/mcL [facility] Clarity, UA Clear [facility] Color, UA Yellow [facility] Glucose, UA Negative Negative - 1999(110) ++++ mg/dL [facility] Interpretation and review of laboratory results Abnormal [facility] Ketones, UA Negative Negative - 160(16) ++++ mg/dL [facility] Leukocytes, UA Negative Negative - 500+++ Drew/mcL [facility] Nitrite, UA Negative Negative - Positive [facility] pH, UA 7 5 - 9 [facility] Protein, UA Positive Negative - 1999(20) ++++ mg/dL [facility] Comment on above: 30 Spec Grav, UA 1.02 1 - 1.03 [facility] Urobilinogen, UA 0.2 0.2 - 12 mg/dL [facility] Urinalysis macro (dipstick) panel (U)on 06-07-2024 Bilirubin, UA Negative Negative - 4(70) +++ mg/dL [facility] Blood, UA Negative Negative - 50 Angel Luis/mcL [facility] Clarity, UA Clear [facility] Color, UA Yellow [facility] Glucose, UA Negative Negative - 1999(110) ++++ mg/dL [facility] Interpretation and review of laboratory results Normal [facility] Ketones, UA Negative Negative - 160(16) ++++ mg/dL [facility] Leukocytes, UA Negative Negative - 500+++ Drew/mcL [facility] Nitrite, UA Negative Negative - Positive [facility] pH, UA 7 5 - 9 [facility] Protein, UA Negative Negative - 1999(20) ++++ mg/dL [facility] Spec Grav, UA 1.02 1 - 1.03 [facility] Urobilinogen, UA 0.2 0.2 - 12 mg/dL [facility] Urinalysis macro (dipstick) panel (U)on 05-09-2024 Bilirubin, UA Positive Negative - 4(70) +++ mg/dL [facility] Comment on above: small Blood, UA Negative Negative - 50 Angel Luis/mcL [facility] Clarity, UA Clear [facility] Color, UA Miryam [facility] Glucose, UA Negative Negative - 1999(110) ++++ mg/dL [facility] Interpretation and review of laboratory results Abnormal [facility] Ketones, UA Positive Negative - 160(16) ++++ mg/dL [facility] Comment on above: trace Leukocytes, UA Negative Negative - 500+++ Drew/mcL [facility] Nitrite, UA Negative Negative - Positive [facility] pH, UA 6 5 - 9 [facility] Protein, UA Positive Negative - 1999(20) ++++ mg/dL [facility] Comment on above: 30 mg Spec Grav, UA 1.03 1 - 1.03 [facility] Urobilinogen, UA 0.2 0.2 - 12 mg/dL [facility] Urinalysis macro (dipstick) panel (U)on 04-11-2024 Bilirubin, UA Negative Negative - 4(70) +++ mg/dL [facility] Blood, UA Negative Negative - 50 Angel Luis/mcL [facility] Clarity, UA Clear [facility] Color, UA Yellow [facility] Glucose, UA Negative Negative - 1999(110) ++++ mg/dL [facility] Interpretation and review of laboratory results Normal [facility] Ketones, UA Negative Negative - 160(16) ++++ mg/dL [facility] Leukocytes, UA Negative Negative - 500+++ Drew/mcL [facility] Nitrite, UA Negative Negative - Positive [facility] pH, UA 6.5 5 - 9 [facility] Protein, UA Negative Negative - 1999(20) ++++ mg/dL [facility] Spec Grav, UA 1.020 1 - 1.03 [facility] Urobilinogen, UA 0.2 0.2 - 12 mg/dL [facility] Urinalysis macro (dipstick) panel (U)on 03-14-2024 Bilirubin, UA Negative Negative - 4(70) +++ mg/dL [facility] Blood, UA Negative Negative - 50 Angel Luis/mcL [facility] Clarity, UA Clear [facility] Color, UA Yellow [facility] Glucose, UA Negative Negative - 1999(110) ++++ mg/dL [facility] Interpretation and review of laboratory results Normal [facility] Ketones, UA Negative Negative - 160(16) ++++ mg/dL [facility] Leukocytes, UA Negative Negative - 500+++ Drew/mcL [facility] Nitrite, UA Negative Negative - Positive [facility] pH, UA 7.0 5 - 9 [facility] Protein, UA Negative Negative - 1999(20) ++++ mg/dL [facility] Spec Grav, UA 1.020 1 - 1.03 [facility] Urobilinogen, UA 0.2 0.2 - 12 mg/dL [facility] Facesheeton 03-02-2023 Facesheet [id number] CD:127 Normal [facility] Ambulatory Visit Summaryon 0 02-27-2023 Ambulatory Visit [...] History of pre-eclampsia Insomnia Migraines Overweight Normal [facility] RAD - Ultrasound Reporton RAD - Ultrasound Report [id number] D:127 Normal [facility] Physician Referralon 023 Physician Referral [id number] D:127 Normal [facility] INSULINon 11-08-2022 Insulin 7.7 uIU/mL Normal 2.6-24.9 [facility] Comment on above: Performed By: #### V AMAURY, IRON #### [facility] [address] [place] [address] Dr. Chucho Jesus CBC AUTO DIFFon 11-07-2022 BASO # 0.0 103/ul Normal 0.0-0.1 [facility] Comment on above: Performed By: #### V ITSONIYA, IRON #### [facility] [address] [place] [address] Dr. Chcuho Jesus Basophils/100 WBC (Bld) 0.6 % Normal 0.2-2.0 [facility] Comment on above: Performed By: #### V ITSONIYA, IRON #### [facility] [address] [place] [address] Dr. Chucho Jesus EO # 0.1 103/ul Normal 0.0-0.7 [facility] Comment on above: Performed By: #### V AMAURY, IRON #### [facility] [address] [place] [address] Dr. Chucho Jesus Eosinophils/100 WBC (Bld) 1.4 % Normal 0.9-7.0 [facility] Comment on above: Performed By: #### V ITAD, IRON #### [facility] [address] [place] [address] Dr. Chucho Jesus Erythrocyte distribution width (RBC) [Ratio] 13.9 % Normal 11.0-15.0 [facility] Comment on above: Performed By: #### V ITAD, IRON #### [facility] [address] [place] [address] Dr. Chucho Jesus Hematocrit (Bld) [Volume fraction] 45.6 % Normal 36.0-48.0 [facility] Comment on above: Performed By: #### V ITAD, IRON #### [facility] [address] [place] [address] Dr. Chucho Jesus Hemoglobin (Bld) [Mass/Vol] 15.1 g/dL Normal 12.0-16.0 [facility] Comment on above: Performed By: #### V ITAD, IRON #### [facility] [address] [place] [address] Dr. Chucho Jesus IG # 0.01 10e3/ul Normal 0.00-0.03 [facility] Comment on above: Performed By: #### V ITAD, IRON #### [facility] [address] [place] [address] Dr. Chucho Jesus IG % 0.1 % Normal 0.0-0.5 [facility] Comment on above: Performed By: #### V ITAD, IRON #### [facility] [address] [place] [address] Dr. Chucho Jesus LYMPH # 1.9 103/ul Normal 1.2-3.8 [facility] Comment on above: Performed By: #### V ITAD, IRON #### [facility] [address] [place] [address] Dr. Chucho Jesus Lymphocytes/100 WBC (Bld) 26.3 % Normal 20.5-60.0 [facility] Comment on above: Performed By: #### V ITAD, IRON #### [facility] [address] [place] [address] Dr. Chucho Jesus MANUAL DIFF REQ NO Normal [facility] Comment on above: Performed By: #### V ITAD, IRON #### [facility] [address] [place] [address] Dr. Chucho Jesus MCH (RBC) [Entitic mass] 27.9 pg Normal 26.7-34.0 [facility] Comment on above: Performed By: #### V ITAD, IRON #### [facility] [address] [place] [address] Dr. Chucho Jesus MCHC (RBC) [Mass/Vol] 33.1 g/dL Normal 29.9-35.2 [facility] Comment on above: Performed By: #### V ITAD, IRON #### [facility] [address] [place] [address] Dr. Chucho Jesus MCV (RBC) [Entitic vol] 84.1 fL Normal 81.0-99.0 [facility] Comment on above: Performed By: #### V ITAD, IRON #### [facility] [address] [place] [address] Dr. Chucho Jesus MONO # 0.5 103/ul Normal 0.3-0.8 [facility] Comment on above: Performed By: #### V ITAD, IRON #### [facility] [address] [place] [address] Dr. Chucho Jesus Monocytes/100 WBC (Bld) 7.3 % Normal 1.7-12.0 [facility] Comment on above: Performed By: #### V ITAD, IRON #### [facility] [address] [place] [address] Dr. Chucho Jesus NEUT # 4.6 103/ul Normal 1.4-6.5 [facility] Comment on above: Performed By: #### V ITAD, IRON #### [facility] [address] [place] [address] Dr. Chucho Jesus Neutrophils/100 WBC (Bld) 64.3 % Normal 43.0-75.0 [facility] Comment on above: Performed By: #### V ITAD, IRON #### [facility] [address] [address] [address] Chucho Jesus Platelet mean volume (Bld) [Entitic vol] 10.9 fL Normal 9.5-13.5 [facility] Comment on above: Performed By: #### V ITAD, IRON #### [facility] [address] [address] [address] Chucho Jesus PLT 226 103/ul Normal 150-450 [facility] Comment on above: Performed By: #### V ITAD, IRON #### [facility] [address] [address] [address] Chucho Jesus RBC 5.42 106/ul Critically high 4.20-5.40 [facility] Comment on above: Performed By: #### V ITAD, IRON #### [facility] [address] [address] [address] Chucho Jesus WBC 7.2 103/ul Normal 4.0-11.0 [facility] Comment on above: Performed By: #### V ITAD, IRON #### [facility] [address] [place] [address] Dr. Chucho Jesus FREE THYROXINE INDEX T7on FTI 3.29 Normal 1.30-4.50 [facility] Comment on above: Performed By: #### V ITAD, IRON #### [facility] [address] [place] [address] Dr. Chucho Jesus T3U 35.0 % Normal 30.0-39.0 [facility] Comment on above: Performed By: #### V ITAD, IRON #### [facility] [address] [place] [address] Dr. Chucho Jesus T4 [Mass/Vol] 9.40 ug/dL Normal 4.80-13.90 [facility] Comment on above: Performed By: #### V ITAD, IRON #### [facility] [address] [place] [address] Dr. Chucho Jesus GLYCOHEMOGLOBIN A1Con 2022 ADA RECOMMENDATION SEE BELOW Normal [facility] Comment on above: Result Comment: ADA RECOMMENDED LIMIT 4.0 - 6.0 ADA THERAPEUTIC TARGET < 7.0 ACTION SUGGESTED > 7.0 Performed By: #### A 1C #### [facility] [address] [address] [address] Chucho Jesus Glucose [Mass/Vol] 94 mg/dL Normal [facility] Comment on above: Performed By: #### A 1C #### [facility] [address] [address] [address] Chucho Jesus HbA1c (Bld) [Mass fraction] 4.9 % Normal 4.5-6.2 [facility] Comment on above: Performed By: #### A 1C #### [facility] [address] [place] [address] Dr. Chucho Jesus IRONon 11-07-2022 Iron [Mass/Vol] 81.0 ug/dL Normal 50.0-170.0 [facility] Comment on above: Performed By: #### V ITAD, IRON #### [facility] [address] [address] [address] Chucho Jesus LIPID PROFILEon 11-07-2022 CHOL-HDL RATIO NORM SEE BELOW Normal [facility] Comment on above: Result Comment: 3.3 - 4.4 LOW RISK 4.4 - 7.1 AVERAGE RISK 7.1 - 11.0 MODERATE RISK >11.0 HIGH RISK Performed By: #### V ITAD, IRON #### [facility] [address] [place] [address] Dr. Chucho Jesus Cholesterol [Mass/Vol] 126 mg/dL Normal <=200 [facility] Comment on above: Performed By: #### V ITAD, IRON #### [facility] [address] [address] [address] Chucho Jesus Cholesterol in HDL [Mass/Vol] 38 mg/dL Critically low 40-60 [facility] Comment on above: Performed By: #### V ITAD, IRON #### [facility] [address] [address] [address] Chucho Jesus Cholesterol in LDL [Mass/Vol] 79.4 mg/dL Normal [facility] Comment on above: Performed By: #### V ITAD, IRON #### [facility] [address] [place] [address] Dr. Chucho Jesus Cholesterol.total/C holesterol in HDL [Mass ratio] 3.3 {ratio} Normal [facility] Comment on above: Performed By: #### V ITAD, IRON #### [facility] [address] [place] [address] Dr. Chucho Jesus HDL NORMAL > or = 60 mg/dl - LO W CARDIOVASCULAR RISK <40 mg/dl - HIGH CARDIOVASCULAR RISK Normal [facility] Comment on above: Performed By: #### V ITAD, IRON #### [facility] [address] [place] [address] Dr. Chucho Jesus LDL CALC NORMAL SEE BELOW Normal [facility] Comment on above: Result Comment: <100 mg/dl OPTIMAL 100 - 129 mg/dl NEAR OR ABOVE OPTIMAL 130 - 159 mg/dl BORDERLINE HIGH 160 - 189 mg/dl HIGH >190 mg/dl VERY HIGH Performed By: #### V ITAD, IRON #### [facility] [address] [place] [address] Dr. Chucho Jesus Triglyceride [Mass/Vol] 43 mg/dL Normal <=150 [facility] Comment on above: Performed By: #### V ITAD, IRON #### [facility] [address] [place] [address] Dr. Chucho Jesus VLDL CALC 8.6 mg/dL Normal [facility] Comment on above: Performed By: #### V ITAD, IRON #### [facility] [address] [address] [address] Chucho Jesus PROF 14(COMP METB)on 023 Albumin [Mass/Vol] 4.2 g/dL Normal 3.4-5.0 [facility] Comment on above: Performed By: #### V ITAD, IRON #### [facility] [address] [place] [address] Dr. Chucho Jesus Albumin/Globulin [Mass ratio] 1.1 {ratio} Normal [facility] Comment on above: Performed By: #### V ITAD, IRON #### [facility] [address] [place] [address] Dr. Chucho Jesus ALP [Catalytic activity/Vol] 93 U/L Normal 46-116 [facility] Comment on above: Performed By: #### V ITAD, IRON #### [facility] [address] [address] [address] Chucho Jesus ALT [Catalytic activity/Vol] 16 U/L Normal 14-59 [facility] Comment on above: Performed By: #### V ITAD, IRON #### [facility] [address] [place] [address] Dr. Chucho Jesus Anion gap [Moles/Vol] 14.3 mmol/L Normal [facility] Comment on above: Performed By: #### V ITAD, IRON #### [facility] [address] [place] [address] Dr. Chucho Jesus AST [Catalytic activity/Vol] 16 U/L Normal 15-37 [facility] Comment on above: Performed By: #### V ITAD, IRON #### [facility] [address] [place] [address] Dr. Chucho Jesus Bilirubin [Mass/Vol] 1.0 mg/dL Normal 0.2-1.0 [facility] Comment on above: Performed By: #### V ITAD, IRON #### [facility] [address] [address] [address] Chucho Jesus Calcium [Mass/Vol] 9.4 mg/dL Normal 8.5-10.1 [facility] Comment on above: Performed By: #### V ITAD, IRON #### [facility] [address] [place] [address] Dr. Chucho Jesus Chloride [Moles/Vol] 103 mmol/L Normal 98-107 [facility] Comment on above: Performed By: #### V ITAD, IRON #### [facility] [address] [place] [address] Dr. Chucho Jesus CO2 [Moles/Vol] 24.9 mmol/L Normal 21.0-32.0 [facility] Comment on above: Performed By: #### V ITAD, IRON #### [facility] [address] [address] [address] Chucho Jesus Creatinine [Mass/Vol] 0.68 mg/dL Normal 0.55-1.02 [facility] Comment on above: Performed By: #### V ITAD, IRON #### [facility] [address] [address] [address] Chucho Jesus EGFR-AF BARBADIAN >60 Normal >=60 [facility] Comment on above: Performed By: #### V ITAD, IRON #### [facility] [address] [place] [address] Dr. Chucho Jesus EGFR-NON AF BARBADIAN >60 Normal >=60 [facility] Comment on above: Performed By: #### V ITAD, IRON #### [facility] [address] [address] [address] Chucho Jesus Globulin (S) [Mass/Vol] 3.9 g/dL Normal [facility] Comment on above: Performed By: #### V ITAD, IRON #### [facility] [address] [place] [address] Dr. Chucho Jesus Glucose [Mass/Vol] 89 mg/dL Normal 74-106 [facility] Comment on above: Performed By: #### V ITAD, IRON #### [facility] [address] [address] [address] Chucho Jesus Potassium [Moles/Vol] 4.2 mmol/L Normal 3.5-5.1 [facility] Comment on above: Performed By: #### V ITAD, IRON #### [facility] [address] [place] [address] Dr. Chucho Jesus Protein [Mass/Vol] 8.1 g/dL Normal 6.4-8.2 [facility] Comment on above: Performed By: #### V ITAD, IRON #### [facility] [address] [place] [address] Dr. Chucho Jesus Sodium [Moles/Vol] 138 mmol/L Normal 136-145 [facility] Comment on above: Performed By: #### V ITAD, IRON #### [facility] [address] [place] [address] Dr. Chucho Jesus Urea nitrogen [Mass/Vol] 9.0 mg/dL Normal 7.0-18.0 [facility] Comment on above: Performed By: #### V ITAD, IRON #### [facility] [address] [address] [address] Chucho Jesus Urea nitrogen/Creatinine [Mass ratio] 13.2 mg/mg Normal [facility] Comment on above: Performed By: #### V ITAD, IRON #### [facility] [address] [place] [address] Dr. Chucho Jesus TSHon 11-07-2022 TSH 1.668 uIU/mL Normal 0.358-3.740 [facility] Comment on above: Performed By: #### V ITAD, IRON #### [facility] [address] [place] [address] Dr. Chucho Jesus Covid-19 PCR ([facility])on SARS-CoV-2 (COVID-19) RNA DIMTRY+probe Ql (Unsp spec) Not detected Normal NOT DETECTED [facility] Comment on above: Result Comment: When diagnostic [...] for this test is supported by the [place] of Health and Human Service's declaration that [...] Performed By: #### V ITAD, IRON #### [facility] [address] [address] [address] Chucoh Jesus Covid-19 PCR ([facility])on SARS-CoV-2 (COVID-19) RNA DMITRY+probe Ql (Unsp spec) Not detected Normal NOT DETECTED [facility] Comment on above: Result Comment: When [...] for this test is supported by the [place] of Health and Human Service's declaration that [...] used). Performed By: #### C VDTBH #### [facility] [address] [place] [address] Dr. Chucho Jesus INFLUENZA A AND B AGon 08-11 [facility] SEE BELOW Normal [facility] Comment on above: Result Comment: Nega tive for Flu A protein angiten. Infection due to Flu A cannot be ruled out. Flu A angiten in the sample may be below the detection limit of the test. Performed By: #### I NFLUAB #### [facility] [address] [place] [address] Dr. Chucho Jesus INFLUBNEG SEE BELOW Normal [facility] Comment on above: Result Comment: Nega tive for Flu B protein antigen. Infection due to Flu B cannot be ruled out. Flu B antigen in the sample may be below the detection limit of the test. Performed By: #### I NFLUAB #### [facility] [address] [place] [address] Dr. Chucho Jesus INFLUENZA A AG Negative Normal NEGATIVE SEE COMMENT [facility] Comment on above: Performed By: #### I NFLUAB #### [facility] [address] [address] [address] Chucho Jesus INFLUENZA B AG Negative Normal NEGATIVE SEE COMMENT [facility] Comment on above: Performed By: #### I NFLUAB #### [facility] [address] [address] [address] Chucho Jesus Covid-19 PCR ([facility])on 05-07 SARS-CoV-2 (COVID-19) RNA DMITRY+probe Ql (Unsp spec) Not detected Normal NOT DETECTED [facility] Comment on above: Result Comment: When [...] for this test is supported by the [place] of Health and Human Service's declaration that [...] Performed By: #### V ITAD, IRON #### [facility] [address] [place] [address] Dr. Chucho Jesus INFLUENZA A AND B AGon 05-26 [facility] SEE BELOW Normal [facility] Comment on above: Result Comment: Nega tive for Flu A protein angiten. Infection due to Flu A cannot be ruled out. Flu A angiten in the sample may be below the detection limit of the test. Performed By: #### V ITAD, IRON #### [facility] [address] [place] [address] Dr. Chucho Jesus [facility] SEE BELOW Normal [facility] Comment on above: Result Comment: Nega tive for Flu B protein antigen. Infection due to Flu B cannot be ruled out. Flu B antigen in the sample may be below the detection limit of the test. Performed By: #### V ITAD, IRON #### [facility] [address] [place] [address] Dr. Chucho Jesus INFLUENZA A AG Negative Normal NEGATIVE SEE COMMENT [facility] Comment on above: Performed By: #### V ITAD, IRON #### [facility] [address] [place] [address] Dr. Chucho Jesus INFLUENZA B AG Negative Normal NEGATIVE SEE COMMENT [facility] Comment on above: Performed By: #### V ITAD, IRON #### [facility] [address] [place] [address] Dr. Chucho Jesus INTERNAL CONTROLS Within Normal Limits Normal Wi thin Normal Limits [facility] Comment on above: Performed By: #### V ITAD, IRON #### [facility] [address] [place] [address] Dr. Chucho Jesus ER URINE PROFILEon 2 Bilirubin Ql (U) Negative Normal NEGATIVE [facility] Comment on above: Performed By: #### V ITAD, IRON #### [facility] [address] [place] [address] Dr. Chucho Jesus Clarity (U) CLEAR Normal CLEAR [facility] Comment on above: Performed By: #### V ITAD, IRON #### [facility] [address] [place] [address] Dr. Chucho Jesus Color (U) YELLOW Normal YELLOW [facility] Comment on above: Performed By: #### V ITAD, IRON #### [facility] [address] [place] [address] Dr. Chucho BAHENA A micrscopic examination will be performed if indicated. Normal [facility] Comment on above: Performed By: #### V ITAD, IRON #### [facility] [address] [place] [address] Dr. Chucho Jesus Glucose Ql (U) Negative Normal NEGATIVE [facility] Comment on above: Performed By: #### V ITAD, IRON #### [facility] [address] [address] [address] Chucho Jesus Hemoglobin Ql (U) Negative Normal NEGATIVE [facility] Comment on above: Performed By: #### V ITAD, IRON #### [facility] [address] [address] [address] Chucho Jesus Ketones Ql (U) >=[address] [facility] Comment on above: Performed By: #### V ITAD, IRON #### [facility] [address] [address] [address] Chucho Jesus LEUKOCYTES Negative Normal NEGATIVE [facility] Comment on above: Performed By: #### V ITAD, IRON #### [facility] [address] [place] [address] Dr. Chucho Jesus Nitrite Ql (U) Negative Normal NEGATIVE [facility] Comment on above: Performed By: #### V ITAD, IRON #### [facility] [address] [place] [address] Dr. Chucho Jesus pH (U) 6.0 [pH] Normal 5-9 [facility] Comment on above: Performed By: #### V ITAD, IRON #### [facility] [address] [place] [address] Dr. Chucho Jesus Protein (U) [Mass/Vol] 100 mg/dL Abnormal NEGATIVE/ TRACE [facility] Comment on above: Performed By: #### V ITAD, IRON #### [facility] [address] [place] [address] Dr. Chucho Jesus SPEC GRAVITY >=1.030 Abnormal 1.005-<=1.025 [facility] Comment on above: Performed By: #### V ITAD, IRON #### [facility] [address] [place] [address] Dr. Chucho Jesus UR MICRO IND INDICATED Normal [facility] Comment on above: Performed By: #### V ITAD, IRON #### [facility] [address] [place] [address] Dr. Chucho Jesus Urobilinogen Qn (U) 0.2 {Chelsea'U}/dL Normal 0.2 - 1. 0 [facility] Comment on above: Performed By: #### V ITAD, IRON #### [facility] [address] [address] [address] Chucho Jesus URon 05-22-2022 , QUAL Negative Normal NEGATIVE [facility] Comment on above: Performed By: #### V ITAD, IRON #### [facility] [address] [address] [address] Chucho Jesus URINE MICROSCOPIC ONLYon BACTERIA NONE SEEN Normal NONE SEEN [facility] Comment on above: Performed By: #### V ITAD, IRON #### [facility] [address] [place] [address] Dr. Chucho Jesus Bacteria identified Cx Nom (U) NOT INDICATED Normal [facility] Comment on above: Performed By: #### V ITAD, IRON #### [facility] [address] [address] [address] Chucho Jesus CAST NONE SEEN Normal NONE SEEN [facility] Comment on above: Performed By: #### V ITAD, IRON #### [facility] [address] [address] [address] Chucho Jesus Crystals LM Nom (Urine sed) NONE SEEN Normal NONE SEEN [facility] Comment on above: Performed By: #### V ITAD, IRON #### [facility] [address] [address] [address] Chucho Jesus Epithelial cells LM Ql (Urine sed) FEW Abnormal NONE SEEN /RARE [facility] Comment on above: Performed By: #### V ITAD, IRON #### [facility] [address] [address] [address] Chucho Jesus MUCOUS MODERATE Abnormal NONE SEEN [facility] Comment on above: Performed By: #### V ITAD, IRON #### [facility] [address] [address] [address] Chucho Jesus RBC NONE SEEN Abnormal 0-2 [facility] Comment on above: Performed By: #### V AMAURY IRON #### [facility] [address] [address] [address] Chucho Jesus WBC NONE SEEN Normal NONE SEEN [facility] Comment on above: Performed By: #### V AMAURY, IRON #### [facility] [address] [place] [address] Dr. Chucho Jesus XR LSPINE 2_3 VIEWSon [...] SHAINA CAMPOS Date: 2022-05-22 12:28 Normal [facility] INSULINon 04-25-2022 Insulin 10.4 uIU/mL Normal 2.6-24.9 [facility] Comment on above: Performed By: #### V AMAURY IRON #### [facility] [address] [place] [address] Dr. Chucho Jesus CBC AUTO DIFFon 04-24-2022 BASO # 0.0 103/ul Normal 0.0-0.1 [facility] Comment on above: Performed By: #### C BC #### [facility] [address] [place] [address] Dr. Chucho Jseus Basophils/100 WBC (Bld) 0.6 % Normal 0.2-2.0 [facility] Comment on above: Performed By: #### C BC #### [facility] [address] [place] [address] Dr. Chucho Jesus EO # 0.1 103/ul Normal 0.0-0.7 [facility] Comment on above: Performed By: #### C BC #### [facility] [address] [place] [address] Dr. Chucho Jesus Eosinophils/100 WBC (Bld) 1.8 % Normal 0.9-7.0 [facility] Comment on above: Performed By: #### C BC #### [facility] [address] [place] [address] Dr. Chucho Jesus Erythrocyte distribution width (RBC) [Ratio] 12.9 % Normal 11.0-15.0 [facility] Comment on above: Performed By: #### C BC #### [facility] [address] [place] [address] Dr. Chucho Jesus Hematocrit (Bld) [Volume fraction] 45.6 % Normal 36.0-48.0 [facility] Comment on above: Performed By: #### C BC #### [facility] [address] [place] [address] Dr. Chucho Jesus Hemoglobin (Bld) [Mass/Vol] 14.7 g/dL Normal 12.0-16.0 [facility] Comment on above: Performed By: #### C BC #### [facility] [address] [place] [address] Dr. Chucho Jesus IG # 0.02 10e3/ul Normal 0.00-0.03 [facility] Comment on above: Performed By: #### C BC #### [facility] [address] [place] [address] Dr. Chucho Jesus IG % 0.3 % Normal 0.0-0.5 [facility] Comment on above: Performed By: #### C BC #### [facility] [address] [place] [address] Dr. Chucho Jesus LYMPH # 1.6 103/ul Normal 1.2-3.8 [facility] Comment on above: Performed By: #### C BC #### [facility] [address] [place] [address] Dr. Chucho Jesus Lymphocytes/100 WBC (Bld) 24.5 % Normal 20.5-60.0 [facility] Comment on above: Performed By: #### C BC #### [facility] [address] [place] [address] Dr. Chucho Jesus MANUAL DIFF REQ NO Normal [facility] Comment on above: Performed By: #### C BC #### [facility] [address] [place] [address] Dr. Chucho Jesus MCH (RBC) [Entitic mass] 28.4 pg Normal 26.7-34.0 [facility] Comment on above: Performed By: #### C BC #### [facility] [address] [place] [address] Dr. Chucho Jesus MCHC (RBC) [Mass/Vol] 32.2 g/dL Normal 29.9-35.2 [facility] Comment on above: Performed By: #### C BC #### [facility] [address] [place] [address] Dr. Chucho Jesus MCV (RBC) [Entitic vol] 88.2 fL Normal 81.0-99.0 [facility] Comment on above: Performed By: #### C BC #### [facility] [address] [place] [address] Dr. Chucho Jesus MONO # 0.5 103/ul Normal 0.3-0.8 [facility] Comment on above: Performed By: #### C BC #### [facility] [address] [place] [address] Dr. Chucho Jesus Monocytes/100 WBC (Bld) 7.4 % Normal 1.7-12.0 [facility] Comment on above: Performed By: #### C BC #### [facility] [address] [place] [address] Dr. Chucho Jesus NEUT # 4.4 103/ul Normal 1.4-6.5 [facility] Comment on above: Performed By: #### C BC #### [facility] [address] [place] [address] Dr. Chucho Jesus Neutrophils/100 WBC (Bld) 65.4 % Normal 43.0-75.0 [facility] Comment on above: Performed By: #### C BC #### [facility] [address] [place] [address] Dr. Chucho Jesus Platelet mean volume (Bld) [Entitic vol] 9.9 fL Normal 9.5-13.5 [facility] Comment on above: Performed By: #### C BC #### [facility] [address] [place] [address] Dr. Chucho Jesus PLT 225 103/ul Normal 150-450 [facility] Comment on above: Performed By: #### C BC #### [facility] [address] [address] [address] Chucho Jesus RBC 5.17 106/ul Normal 4.20-5.40 [facility] Comment on above: Performed By: #### C BC #### [facility] [address] [place] [address] Dr. Chucho Jesus WBC 6.7 103/ul Normal 4.0-11.0 [facility] Comment on above: Performed By: #### C BC #### [facility] [address] [place] [address] Dr. Chucho Jesus FREE THYROXINE INDEX T7on FTI 3.29 Normal 1.30-4.50 [facility] Comment on above: Performed By: #### T 7, TSH, LIPID, CMP #### [facility] [address] [place] [address] Dr. Chucho Jesus T3U 27.0 % Critically low 30.0-39.0 [facility] Comment on above: Performed By: #### T 7, TSH, LIPID, CMP #### [facility] [address] [place] [address] Dr. Chucho Jesus T4 [Mass/Vol] 12.20 ug/dL Normal 4.80-13.90 [facility] Comment on above: Performed By: #### T 7, TSH, LIPID, CMP #### [facility] [address] [place] [address] Dr. Chucho Jesus GLYCOHEMOGLOBIN A1Con 2021 ADA RECOMMENDATION SEE BELOW Normal [facility] Comment on above: Result Comment: ADA RECOMMENDED LIMIT 4.0 - 6.0 ADA THERAPEUTIC TARGET < 7.0 ACTION SUGGESTED > 7.0 Performed By: #### A 1C #### [facility] [address] [address] [address] Chucho Jesus Glucose [Mass/Vol] 105 mg/dL Normal [facility] Comment on above: Performed By: #### A 1C #### [facility] [address] [address] [address] Chucho Jesus HbA1c (Bld) [Mass fraction] 5.3 % Normal 4.5-6.2 [facility] Comment on above: Performed By: #### A 1C #### [facility] [address] [place] [address] Dr. Chucho Jesus IRONon 04-24-2022 Iron [Mass/Vol] 48.0 ug/dL Critically low 50.0-170.0 [facility] Comment on above: Performed By: #### V ITAD, IRON #### [facility] [address] [place] [address] Dr. Chucho Jesus LIPID PROFILEon 04-24-2022 CHOL-HDL RATIO NORM SEE BELOW Normal [facility] Comment on above: Result Comment: 3.3 - 4.4 LOW RISK 4.4 - 7.1 AVERAGE RISK 7.1 - 11.0 MODERATE RISK >11.0 HIGH RISK Performed By: #### V ITAD, IRON #### [facility] [address] [place] [address] Dr. Chucho Jesus Cholesterol [Mass/Vol] 184 mg/dL Normal <=200 [facility] Comment on above: Performed By: #### V ITAD, IRON #### [facility] [address] [place] [address] Dr. Chucho Jesus Cholesterol in HDL [Mass/Vol] 55 mg/dL Normal 40-60 [facility] Comment on above: Performed By: #### V ITAD, IRON #### [facility] [address] [place] [address] Dr. Chucho Jesus Cholesterol in LDL [Mass/Vol] 116.6 mg/dL Normal [facility] Comment on above: Performed By: #### V ITAD, IRON #### [facility] [address] [address] [address] Chucho Jesus Cholesterol.total/C holesterol in HDL [Mass ratio] 3.3 {ratio} Normal [facility] Comment on above: Performed By: #### V ITAD, IRON #### [facility] [address] [address] [address] Chucho Jesus HDL NORMAL > or = 60 mg/dl - LO W CARDIOVASCULAR RISK <40 mg/dl - HIGH CARDIOVASCULAR RISK Normal [facility] Comment on above: Performed By: #### V ITAD, IRON #### [facility] [address] [address] [address] Chucho Jesus LDL CALC NORMAL SEE BELOW Normal [facility] Comment on above: Result Comment: <100 mg/dl OPTIMAL 100 - 129 mg/dl NEAR OR ABOVE OPTIMAL 130 - 159 mg/dl BORDERLINE HIGH 160 - 189 mg/dl HIGH >190 mg/dl VERY HIGH Performed By: #### V ITAD, IRON #### [facility] [address] [address] [address] Chucho Jseus Triglyceride [Mass/Vol] 62 mg/dL Normal <=150 [facility] Comment on above: Performed By: #### V ITAD, IRON #### [facility] [address] [place] [address] Dr. Chucho Jesus VLDL CALC 12.4 mg/dL Normal [facility] Comment on above: Performed By: #### V ITAD, IRON #### [facility] [address] [place] [address] Dr. Chucho Jesus PROF 14(COMP METB)on 022 Albumin [Mass/Vol] 3.7 g/dL Normal 3.4-5.0 [facility] Comment on above: Performed By: #### T 7, TSH, LIPID, CMP #### [facility] [address] [place] [address] Dr. Chucho Jesus Albumin/Globulin [Mass ratio] 0.9 {ratio} Normal [facility] Comment on above: Performed By: #### T 7, TSH, LIPID, CMP #### [facility] [address] [place] [address] Dr. Chucho Jesus ALP [Catalytic activity/Vol] 74 U/L Normal 46-116 [facility] Comment on above: Performed By: #### T 7, TSH, LIPID, CMP #### [facility] [address] [address] [address] Chucho Jesus ALT [Catalytic activity/Vol] 16 U/L Normal 14-59 [facility] Comment on above: Performed By: #### T 7, TSH, LIPID, CMP #### [facility] [address] [address] [address] Chucho Jesus Anion gap [Moles/Vol] 12.3 mmol/L Normal [facility] Comment on above: Performed By: #### T 7, TSH, LIPID, CMP #### [facility] [address] [place] [address] Dr. Chucho Jesus AST [Catalytic activity/Vol] 13 U/L Critically low 15-37 [facility] Comment on above: Performed By: #### T 7, TSH, LIPID, CMP #### [facility] [address] [place] [address] Dr. Chucho Jesus Bilirubin [Mass/Vol] 0.4 mg/dL Normal 0.2-1.0 [facility] Comment on above: Performed By: #### T 7, TSH, LIPID, CMP #### [facility] [address] [place] [address] Dr. Chucho Jesus Calcium [Mass/Vol] 8.9 mg/dL Normal 8.5-10.1 [facility] Comment on above: Performed By: #### T 7, TSH, LIPID, CMP #### [facility] [address] [place] [address] Dr. Chucho Jesus Chloride [Moles/Vol] 105 mmol/L Normal 98-107 [facility] Comment on above: Performed By: #### T 7, TSH, LIPID, CMP #### [facility] [address] [address] [address] Chucho Jesus CO2 [Moles/Vol] 26.6 mmol/L Normal 21.0-32.0 [facility] Comment on above: Performed By: #### T 7, TSH, LIPID, CMP #### [facility] [address] [address] [address] Chucho Jesus Creatinine [Mass/Vol] 0.68 mg/dL Normal 0.55-1.02 [facility] Comment on above: Performed By: #### T 7, TSH, LIPID, CMP #### [facility] [address] [address] [address] Chucho Jesus EGFR-AF BARBADIAN >60 Normal >=60 [facility] Comment on above: Performed By: #### T 7, TSH, LIPID, CMP #### [facility] [address] [address] [address] Chucho Jesus EGFR-NON AF BARBADIAN >60 Normal >=60 [facility] Comment on above: Performed By: #### T 7, TSH, LIPID, CMP #### [facility] [address] [address] [address] Chucho Jesus Globulin (S) [Mass/Vol] 4.3 g/dL Normal [facility] Comment on above: Performed By: #### T 7, TSH, LIPID, CMP #### [facility] [address] [address] [address] Chucho Jesus Glucose [Mass/Vol] 87 mg/dL Normal 74-106 [facility] Comment on above: Performed By: #### T 7, TSH, LIPID, CMP #### [facility] [address] [address] [address] Chucho Jesus Potassium [Moles/Vol] 3.9 mmol/L Normal 3.5-5.1 [facility] Comment on above: Performed By: #### T 7, TSH, LIPID, CMP #### [facility] [address] [address] [address] Chucho Jesus Protein [Mass/Vol] 8.0 g/dL Normal 6.4-8.2 [facility] Comment on above: Performed By: #### T 7, TSH, LIPID, CMP #### [facility] [address] [address] [address] Chucho Jesus Sodium [Moles/Vol] 140 mmol/L Normal 136-145 [facility] Comment on above: Performed By: #### T 7, TSH, LIPID, CMP #### [facility] [address] [place] [address] Dr. Chucho Jesus Urea nitrogen [Mass/Vol] 9.0 mg/dL Normal 7.0-18.0 [facility] Comment on above: Performed By: #### T 7, TSH, LIPID, CMP #### [facility] [address] [address] [address] Chucho Jesus Urea nitrogen/Creatinine [Mass ratio] 13.2 mg/mg Normal [facility] Comment on above: Performed By: #### T 7, TSH, LIPID, CMP #### [facility] [address] [place] [address] Dr. Chucho Jesus TSHon 04-24-2022 TSH 1.127 uIU/mL Normal 0.358-3.740 [facility] Comment on above: Performed By: #### T 7, TSH, LIPID, CMP #### [facility] [address] [place] [address] Dr. Chucho Jesus VITAMIN D 25 OHon 04-24-2022 VIT D 25-OH 35.2 ng/mL Normal [facility] Comment on above: Performed By: #### V ITAD, IRON #### [facility] [address] [place] [address] Dr. Chucho Jesus VIT D RANGES SEE BELOW Normal [facility] Comment on above: Result Comment: <20 ng/mL Vit D deficient 20 - <30 ng/mL Vit D insufficient 30 - 100 ng/mL Vit D sufficient >100 ng/mL Potential Toxicity Performed By: #### V ITAD, IRON #### [facility] [address] [place] [address] Dr. Chucho Jesus HCG ( test) Ql (U)O rdered By: James Churchill on 12-05-2020 Internal Control Pass [facility] Interpretation and review of laboratory results Normal [facility] POC , UrineOrdered By: James Churchill on 12-05-2020 HCG ( test) Ql (U) Negative Negative [facility] CTA CHEST WITH CONTRASTon CTA [...] by:Ady Tran MD03/25/17Edited Result - FINAL Normal [facility] Basic Metabolic Profon 02-19 (cont.) Normal [facility] Comment on above: Result Comment: Aver age GFR for 20-29 years old: 116 mL/min/1.73sq mChronic Kidney Disease: <60 mL/min/1.73sq mKidney failure: <15 mL/min/1.73sq meGFR calculated using average adult body mass. Additional eGFR calculator available at:http://www.[employer].Data [employer]/multiple_crcl_2012.htm Performed By: #### C KELLE ALBARRAN TROPI ####[address] [place] [address] Anion gap 14 mmol/L Normal 03-22 [facility] Comment on above: Performed By: #### C DP, BMP, TROPI ####[address] [place] [address] BUN/CRE Ratio 13 Normal 9-20 [facility] Comment on above: Performed By: #### C DP, BMP, TROPI ####[address] [place] [address] Calcium 9.2 mg/dL Normal 8.6-10.4 [facility] Comment on above: Performed By: #### C DP, BMP, TROPI ####[address] [place] [address] Chloride 105 mmol/L Normal 98-107 [facility] Comment on above: Performed By: #### C DP, BMP, TROPI ####[address] [place] [address] CO2 23 mmol/L Normal 20-31 [facility] Comment on above: Performed By: #### C DP, BMP, TROPI ####[address] [place] [address] Creatinine 0.55 mg/dL Normal 0.50-0.90 [facility] Comment on above: Performed By: #### C DP, BMP, TROPI ####[address] [place] [address] eGFR (non-black) mL/min/{1.73_m2} Normal >60 [facility] Comment on above: Performed By: #### C DP, BMP, TROPI ####[address] [place] [address] Glucose mass conc 96 mg/dL Normal 70-99 [facility] Comment on above: Performed By: #### C DP, BMP, TROPI ####[address] [place] [address] Potassium molar conc 3.6 mmol/L Low 3.7-5.3 [facility] Comment on above: Performed By: #### C DP, BMP, TROPI ####[address] [place] [address] Sodium 142 mmol/L Normal 135-144 [facility] Comment on above: Performed By: #### C DP, BMP, TROPI ####[address] [place] [address] Staging: Normal [facility] Comment on above: Result Comment: Stag e 1: Some kidney damage normal GFRStage 2: Mild kidney damage GFR 60-89Stage 3: Moderate kidney damage GFR 30-59Stage 4: Severe kidney damage GFR 15-29Stage 5: Severe kidney damage GFR <15ESRD - chronic treatment by dialysis or transplantPerformed at [address] [place] [address] Performed By: #### C DP, BMP, TROPI ####[address] [place] [address] Urea nitrogen 7 mg/dL Normal 6-20 [facility] Comment on above: Performed By: #### C DP, BMP, TROPI ####[address] [place] [address] CBC with Diffon 02-19-2017 Abs. Basophil 0.00 k/uL Normal 0.0-0.2 [facility] Comment on above: Result Comment: Perf ormed at [address] [place] [address] Performed By: #### C DP, BMP, TROPI ####[address] [place] [address] Abs.Neutrophil (Seg) 7.10 k/uL Normal 1.8-8.0 [facility] Comment on above: Performed By: #### C DP, BMP, TROPI ####[address] [place] [address] Basophils/100 WBC Auto (Bld) 0 % Normal [facility] Comment on above: Performed By: #### C DP, BMP, TROPI ####[address] [place] [address] Eosinophils 0.30 10*3/uL Normal 0.0-0.4 [facility] Comment on above: Performed By: #### C DP, BMP, TROPI ####[address] [place] [address] Eosinophils/100 leukocytes 3 % Normal [facility] Comment on above: Performed By: #### C DP, BMP, TROPI ####[address] [place] [address] Erythrocyte distribution width Auto Ratio (RBC) 13.6 % Normal 12.1-15.2 [facility] Comment on above: Performed By: #### C DP, BMP, TROPI ####[address] , [place] [address] Erythrocytes (RBC) 5.03 10*6/uL Normal 4.0-5.2 [facility] Comment on above: Performed By: #### C DP, BMP, TROPI ####[address] [place] [address] Hematocrit (HCT) 40.2 % Normal 36-46 [facility] Comment on above: Performed By: #### C DP, BMP, TROPI ####[address] [place] [address] Hemoglobin mass conc (Bld) 13.2 g/dL Normal 12.0-16.0 [facility] Comment on above: Performed By: #### C DP, BMP, TROPI ####[address] [place] [address] Lymphocytes 2.90 10*3/uL Normal 1.2-5.2 [facility] Comment on above: Performed By: #### C DP, BMP, TROPI ####[address] , [facility]83 Lymphocytes/100 leukocytes 27 % Normal [facility] Comment on above: Performed By: #### C DP, BMP, TROPI ####[address] , [facility]83 MCH 26.2 pg Normal 26-34 [facility] Comment on above: Performed By: #### C DP, BMP, TROPI ####[address] , [facility]83 MCHC mass conc (RBC) 32.8 g/dL Normal 31-37 [facility] Comment on above: Performed By: #### C DP, BMP, TROPI ####[address] , [facility]83 MCV 79.9 fL Low 80-100 [facility] Comment on above: Performed By: #### C DP, BMP, TROPI ####[address] [place] [address] Monocytes 0.60 10*3/uL Normal 0.0-1.0 [facility] Comment on above: Performed By: #### C DP, BMP, TROPI ####[address] [place] [address] Monocytes/100 leukocytes 5 % Normal [facility] Comment on above: Performed By: #### C DP, BMP, TROPI ####[address] [place] [address] Neutrophil (Seg) 65 % Normal [facility] Comment on above: Performed By: #### C DP, BMP, TROPI ####[address] [place] [address] Platelet mean volume (PMV) 9.6 fL Normal 6.0-12.0 [facility] Comment on above: Performed By: #### C DP, BMP, TROPI ####[address] [place] [address] Platelets 278 10*3/uL Normal 140-450 [facility] Comment on above: Performed By: #### C DP, BMP, TROPI ####[address] [place] [address] WBC (Leukocytes) 10.8 10*3/uL Normal 4.5-13.5 [facility] Comment on above: Performed By: #### C DP, BMP, TROPI ####[address] [place] [address] Auto Diff Performed NOT REPORTED Normal [facility] Comment on above: Performed By: #### C DP, BMP, TROPI ####[address] [place] [address] Erythrocyte morphology NOT REPORTED Normal [facility] Comment on above: Performed By: #### C DP, BMP, TROPI ####[address] [place] [address] Platelets NOT REPORTED Normal [facility] Comment on above: Performed By: #### C DP, BMP, TROPI ####[address] [place] [address] WBC Morphology NOT REPORTED Normal [facility] Comment on above: Performed By: #### C DP, BMP, TROPI ####[address] [place] [address] ED Noteon 02-19-2017 HIM IP Note OR Rod Buster Helper Normal [facility] ED Provider Noteon 7 HIM IP Note OR Rod Buster Helper Normal [facility] Troponinon 02-19-2017 Troponin T.cardiac mass conc ug/L Normal <0.03 [facility] Comment on above: Result Comment: Trop onin T results cannot be compared to Troponin-I results. Performed By: #### C DP, BMP, TROPI ####[address] [place] [address] Troponin I.cardiac mass conc Normal [facility] Comment on above: Result Comment: Refe rence Range: <0.03 Within reference range. 0.03-0.09 Possible myocardial damage.Repeat at appropriate intervals to rule out chronic elevation. >= 0.10 Indicative of myocardial damage.Performed at [address] [place], [place] [id number] [phone] Performed By: #### C DP, BMP, TROPI ####[address] [place] [address] Vital Signs Date Time Vital Sign Value Performing Clinician Facility 07-18-2024 10:02-0500 Body mass index (BMI) [Ratio] 36.91 kg/m2 [employer] Work Phone: [facility] 07-18-2024 10:02-0500 Body weight 100.61 kg [employer] Work Phone: [facility] 07-18-2024 10:02-0500 Diastolic blood pressure 70 mm[Hg] [employer] Work Phone: [facility] 07-18-2024 10:02-0500 Systolic blood pressure 130 mm[Hg] [employer] Work Phone: [facility] 07-04-2024 12:13-0500 Body mass index (BMI) [Ratio] 35.84 kg/m2 Little LOWRY Work Phone: [facility] 07-04-2024 12:13-0500 Body weight 97.7 kg Little LOWRY Work Phone: [facility] 07-04-2024 12:13-0500 Diastolic blood pressure 64 mm[Hg] Little LOWRY Work Phone: [facility] 07-04-2024 12:13-0500 Systolic blood pressure 104 mm[Hg] Little LOWRY Work Phone: [facility] 06-21-2024 13:31-0500 Body mass index (BMI) [Ratio] 35.61 kg/m2 Little Ezra PA Work Phone: [facility] 06-21-2024 13:31-0500 Body weight 97.07 kg Little [place] PA Work Phone: [facility] 06-21-2024 13:31-0500 Diastolic blood pressure 72 mm[Hg] Little Ezra PA Work Phone: [facility] 06-21-2024 13:31-0500 Systolic blood pressure 116 mm[Hg] Little Ezra PA Work Phone: [facility] 06-07-2024 13:49-0500 Body mass index (BMI) [Ratio] 34.61 kg/m2 Berto Luis DO Work Phone: [facility] 06-07-2024 13:49-0500 Body weight 94.35 kg Berto Luis DO Work Phone: [facility] 06-07-2024 13:49-0500 Diastolic blood pressure 70 mm[Hg] Berto Luis DO Work Phone: [facility] 06-07-2024 13:49-0500 Systolic blood pressure 120 mm[Hg] Berto Luis DO Work Phone: [facility] 05-24-2024 14:26-0500 Body mass index (BMI) [Ratio] 33.75 kg/m2 Little [place] PA Work Phone: [facility] 05-24-2024 14:26-0500 Body weight 91.99 kg Little Ezra PA Work Phone: [facility] 05-24-2024 14:26-0500 Diastolic blood pressure 70 mm[Hg] Little Ezra PA Work Phone: [facility] 05-24-2024 14:26-0500 Systolic blood pressure 108 mm[Hg] Little Ezra PA Work Phone: [facility] 05-09-2024 11:44-0500 Body mass index (BMI) [Ratio] 33.28 kg/m2 Berto Luis DO Work Phone: [facility] 05-09-2024 11:44-0500 Body weight 90.72 kg Berto Luis DO Work Phone: [facility] 05-09-2024 11:44-0500 Diastolic blood pressure 64 mm[Hg] Berto Luis DO Work Phone: [facility] 05-09-2024 11:44-0500 Systolic blood pressure 118 mm[Hg] Berto Luis DO Work Phone: [facility] 04-11-2024 10:37-0400 Body mass index (BMI) [Ratio] 31.12 kg/m2 Little Christie PA Work Phone: [facility] 04-11-2024 10:37-0400 Body weight 84.82 kg Little Ezra PA Work Phone: [facility] 04-11-2024 10:37-0400 Diastolic blood pressure 68 mm[Hg] Little Christie PA Work Phone: [facility] 04-11-2024 10:37-0400 Systolic blood pressure 116 mm[Hg] Little Ezra PA Work Phone: [facility] 03-14-2024 11:44-0400 Body mass index (BMI) [Ratio] 28.62 kg/m2 Berto Luis DO Work Phone: [facility] 03-14-2024 11:44-0400 Body weight 78.02 kg Berto Luis DO Work Phone: [facility] 03-14-2024 11:44-0400 Diastolic blood pressure 74 mm[Hg] Berto Luis DO Work Phone: [facility] 03-14-2024 11:44-0400 Systolic blood pressure 118 mm[Hg] Berto Luis DO Work Phone: [facility] 02-27-2023 14:39-0400 Blood Pressure Location Gary [facility]ORR[facility] 02-27-2023 14:39-0400 Diastolic blood pressure 66 mm[Hg] Gary [facility] 02-27-2023 14:39-0400 Heart rate 70 /min Gary MORRIS [facility] 02-27-2023 14:39-0400 Respiratory rate 16 /min Gary MORRIS [facility] 02-27-2023 14:39-0400 Systolic blood pressure 106 mm[Hg] Gary [facility] 01-08-2022 08:09-0400 Body temperature 98.01 [degF] Wiley Rice DO Work Phone: [facility] [employer] 01-08-2022 08:09-0400 Body weight 75.75 kg Wiley Rice DO Work Phone: [facility] [employer] 01-08-2022 08:09-0400 Diastolic blood pressure 71 mm[Hg] Wiley Rice DO Work Phone: [facility] 01-08-2022 08:09-0400 Heart rate 98 /min Wiley Rice DO Work Phone: [facility] 01-08-2022 08:09-0400 Systolic blood pressure 112 mm[Hg] Wiley Rice DO Work Phone: [facility] [employer] [facility] [employer] 12-10-2021 14:45-0400 Body height 166.37 cm Bret Long Other [employer] Other 12-10-2021 14:45-0400 Body mass index (BMI) [Ratio] 26.55 kg/m2 Bret Long Other [employer] Other 12-10-2021 14:45-0400 Body weight 73.48 kg Bret Long Other [employer] Other 12-10-2021 14:45-0400 Diastolic blood pressure 72 mm[Hg] Bret Long Other [employer] Other 12-10-2021 14:45-0400 Systolic blood pressure 103 mm[Hg] Bret Long Other [employer] Other 11-27-2021 14:01-0400 Body temperature 98.4 [degF] Wiley Rice DO Work Phone: [facility] [employer] [facility] [employer] 11-27-2021 14:01-0400 Body weight 74.84 kg Wiley Rice DO Work Phone: [facility] [employer] [facility] [employer] 11-27-2021 14:01-0400 Diastolic blood pressure 64 mm[Hg] Wiley Rice DO Work Phone: [facility] 11-27-2021 14:01-0400 Heart rate 98 /min Wiley Rice DO Work Phone: [facility] [employer] 11-27-2021 14:01-0400 Systolic blood pressure 121 mm[Hg] Wiley Rice DO Work Phone: [facility] 12-05-2020 19:26-0400 Heart rate 106 /min James Breece PA-C Work Phone: [facility] 12-05-2020 19:25-0400 Body temperature 98.29 [degF] James Breece PA-C Work Phone: [facility] 12-05-2020 19:25-0400 Body weight 97.98 kg James Breece PA-C Work Phone: [facility] 12-05-2020 19:25-0400 Diastolic blood pressure 86 mm[Hg] James Breece PA-C Work Phone: [facility] 12-05-2020 19:25-0400 Respiratory rate 16 /min James Breece PA-C Work Phone: [facility] 12-05-2020 19:25-0400 SaO2% (BldA) [Mass fraction] 97 % James Churchill PA-C Work Phone: [facility] 12-05-2020 19:25-0400 Systolic blood pressure 126 mm[Hg] James LOWRY-C Work Phone: [facility] Encounters Encounter Date Encounter Type Care Provider Facility Start: 07-18-2024 End: 07-18-2024 Bamboo flowsheet Berto Luis DO Work Phone: [facility] Start: 07-18-2024 End: 07-18-2024 Bamboo flowsheet Berto [...] Result Encounter Berto Luis DO Work Phone: [facility] External Department Unsolicited Start: 07-04-2024 End: 07-04-2024 [...] Bamboo flowsheet Berto Luis DO Work Phone: [facility] Start: 05-09-2024 End: 05-09-2024 Office outpatient visit 15 minutes Berto Luis DO Work Phone: [facility] Comment on above: Second trimester pre gnancy; 26 weeks gestation of ; History of miscarriage Start: 05-09-2024 End: 05-09-2024 ambulatory BERTO LUIS Not Available Start: 04-11-2024 End: 04-11-2024 Bamboo flowsheet Little LOWRY Work Phone: [facility] Start: 04-11-2024 End: 04-11-2024 Bamboo flowsheet Little LOWRY Work Phone: [facility] Start: 04-11-2024 End: 04-11-2024 Office outpatient visit 15 minutes Little LOWRY Work Phone: [facility] Comment on above: Second trimester pre gnancy; 22 weeks gestation of ; Diabetes mellitus screening Start: 04-11-2024 End: 04-11-2024 ambulatory LITTLE CHRISTIE Not Available Start: 03-23-2024 End: 03-23-2024 ambulatory BERTO R LUIS [facility] Start: 03-14-2024 End: 03-14-2024 Bamboo flowsheet Berto Luis DO Work Phone: [facility] Start: 03-14-2024 End: 03-14-2024 Bamboo flowsheet Berto Luis DO Work Phone: [facility] Start: 03-14-2024 End: 03-14-2024 Office outpatient visit 15 minutes Berto Luis DO Work Phone: [facility] Comment on above: Second [...] Nill/Chris Kang Start: 02-23-2023 ambulatory Alexandr Bourgeois Facility:[facility] Start: 02-05-2023 ambulatory Gary MORRIS Facility:[facility] [...] BELTRAN . Facility:[facility] Start: 02-18-2022 ambulatory WILEY Huffman~[id number] YVONNE OSORIO [facility] Start: 02-12-2022 ambulatory WILEY Huffman~[id number] YVONNE OSORIO [facility] Start: 02-12-2022 End: 02-12-2022 Telemedicine consultation with patient Wiley Osorio DO Work Phone: [facility] Comment on above: Anxiety (Primary Dx) Start: 01-19-2022 Refill Luis Dipalma D O Work Phone: [facility] Start: 01-19-2022 Refill Luis Dipalma D O Work Phone: [facility] Start: 01-08-2022 End: 01-08-2022 ambulatory WILEY Huffman~[id number] YVONNE OSORIO [facility] Start: 01-08-2022 End: 01-08-2022 Office outpatient visit 25 minutes Wiley Huffman Rice DO Work Phone: [facility] Comment on above: Anxiety (Primary Dx) ; Hypotension, unspecified hypotension type Start: 01-08-2022 End: 01-08-2022 Patient encounter procedure Wiley Huffman Rice DO Work Phone: [facility] Start: 12-11-2021 End: 12-11-2021 ambulatory WILEY Huffman~[id number] CONNELLY YVONNE [facility] Start: 12-10-2021 End: 12-10-2021 ambulatory Bret Long Other [employer] Other Start: 12-10-2021 Office outpatient ne w 45 minutes Bret Long [facility] Start: 11-27-2021 End: 11-27-2021 ambulatory WILEY Huffman~[id number] [facility] Start: 11-27-2021 End: 11-27-2021 Office outpatient new 30 minutes Wiley Huffman Rice DO Work Phone: [facility] Comment on above: Anxiety (Primary Dx) Start: 11-27-2021 End: 11-27-2021 Patient encounter procedure Wiley Huffman Rice DO Work Phone: [facility] Start: 11-25-2021 Telephone encounter Dana Kinsey [facility] Start: 12-05-2020 End: 12-05-2020 ambulatory PHYSICIAN [facility] Start: 12-05-2020 End: 12-05-2020 Office outpatient new 20 minutes James DENNYC Work Phone: [facility] Comment on above: Vaginal sore (Primar y Dx) Start: 02-19-2017 End: 02-19-2017 Emergency department patient visit KIM SUTHERLAND [facility] Procedures Date Procedure Procedure Detail Performing Clinician [...] AM EST Routine [facility] [address] [place] [phone] Little Christie, PA [address] [place] [address] [place], [place] [id number] [facility] Start: 07-18-2024 End: 07-18-2025 [...] AM EST Routine [facility] [address] [facility] [place] [phone] Little Christie, PA [address] [place] [address] [facility] Start: 06-21-2024 End: 06-21-2024 Patient encounter procedure 06/21/2024 1:20 PM EST Routine [facility] [address] [place] [phone] Little Christie, PA [address] [place] [address] [facility] Start: 06-07-2024 End: 06-07-2024 Patient encounter procedure 06/07/2024 1:30 PM EST Routine [facility] [address] [place] [phone] Berto Smith DO [address] [place], [place] [id number] [facility] Start: 05-24-2024 End: 05-24-2024 Patient encounter procedure 05/24/2024 2:10 PM EST Routine [facility] [address] [place] [address] Little Christie, PA [address] [place], [place] [id number] Arrived [facility] Comment on above: Arrived Start: 05-23-2024 End: 05-23-2024 Patient encounter procedure 05/23/2024 1:50 PM EST Routine [facility] [address] [place] [address] Little Christie, PA [address] [place], [place] [id number] [facility] Start: 05-09-2024 End: 05-09-2025 [...] mellitus screening Expected: 04/11/2024 (Approximate), Expires: 04/11/2025 [facility] Work Phone: Comment on above: Expected: [...] AM EDT Routine [facility] [address] [place] [phone] Berto Smith, DO [address] [place], [place] [address] Arrived [facility] Comment on above: Arrived Start: 03-06-2024 Influenza vaccination Influenza Vacc ine (#1) [facility] Start: 11-27-2022 Adolescent depressio n screening assessment Depression Screening [facility] Start: 03-06-2022 Influenza vaccination T [facility] Start: 02-07-2022 End: 02-07-2022 Patient encounter procedure 02/07/2022 Office Visit Family Medicine Wiley Osorio DO [address] [place] [phone] [facility] Start: 12-19-2021 End: 12-19-2021 Patient encounter procedure 12/19/2021 Office Visit Family Medicine Wiley Osorio DO [address] [place] [phone] [facility] Start: 12-07-2021 COVID-19 Vaccine (3 - Booster for Moderna series) COVID-19 Vaccine (3 - Booster for Moderna series) [facility] Start: 11-27-2021 End: 11-27-2021 Patient encounter procedure 11/27/2021 Office Visit Family Medicine Wiley Osorio, [address] [place] [address] [facility] Start: 11-24-2021 Adolescent depressio n screening assessment Depression Screening [facility] Start: 11-24-2021 Hepatitis C screening [facility] Start: 11-24-2021 HIV screening HIV Screening [facility] Start: 11-24-2021 Social Influencers o f Health Screening Social Influencers of Health Screening [facility] Start: 03-06-2021 Influenza vaccination Sequenti al Influenza Vaccine (Season Ended) [facility] Start: 2017 Screening for malign ant neoplasm of cervix Cervical Cancer Screening: Pap Smear [facility] Start: 2015 DTaP,Tdap,and Td Vaccines (1 - Tdap) DTaP,Tdap,and Td Vaccines (1 - Tdap) [facility] Start: 2014 Hepatitis C screening Hepatitis C [facility] Start: 2011 HIV screening HIV Screening [facility] Start: 2008 COVID-19 Vaccine (1) COVID-19 Vaccin e (1) [facility] Start: 2008 Depression screening using PHQ-9 (Patient Health Questionnaire 9) score Depression Screening (PHQ9) [facility] Start: 2007 HPV Vaccines (1 - 2- dose series) HPV Vaccines (1 - 2-dose series) [facility] Start: 2007 Vaccination for april n papillomavirus HPV Vaccines (1 - 2-dose series) [facility] Start: 2001 COVID-19 Vaccine (1) COVID-19 Vaccin e (1) [facility] Start: 1999 History and physical examination, annual for health maintenance Wellness Visit [facility] Start: 1996 Screening for Chlamy marilee trachomatis Chlamydia Screening [facility] Start: 1996 Screening for malign ant neoplasm of cervix Pap Smear [facility] Start: 1996 Tetanus vaccination Tetanus: Every 1 0yrs [facility] Chlamydia trachomati s rRNA assay Chlamydia/GC/Trichomona s Amplified RNA Microbiology Routine Vaginal sore Ordered: 12/05/2020 [facility] Comment on above: Ordered: 12/05/2020 HSV by PCR Superfici al Site HSV by PCR Superficial Site Lab Routine Vaginal sore Ordered: 12/05/2020 [facility] Comment on above: Ordered: 12/05/2020 Neisseria gonorrhoea e nucleic acid detection Chlamydia/Gonorrhoeae Amplified RNA Microbiology Routine Vaginal sore Ordered: 12/05/2020 [facility] Comment on above: Ordered: 12/05/2020 Trichomonas vaginali s Amplified RNA Trichomonas vaginalis Amplified RNA Microbiology Routine Vaginal sore Ordered: 12/05/2020 [facility] Comment on above: Ordered: 12/05/2020 Immunizations Immunization Date Immunization Notes [facility] SARS-CoV-2 (COVID-19 ) mRNA-1273 vaccine Gary [facility]LEXANDR[facility] 06-08-2021 SARS-CoV-2 (COVID-19 ) mRNA-1273 vaccine Gary ALEXANDRA [facility] 04-10-2011 influenza virus vaccine, unspecified formulation Berto Smith DO Work Phone: [facility] Healthcare Payers Date Payer Category Payer Private Health Insurance [facility] [id number] 2021 Medicaid [id number] 2020 Medicaid [id number] 2016 Unknown [id number] 2013 Unknown [id number] 1996 Unknown [id number] 2.16.840.1.763958.3.579.2. 903 1996 Unknown [id number] 2.16.840.1.176077.3.579.2. 1143 1996 Unknown [id number] 2.16.840.1.144295.3.579.2. 1143 1996 Unknown [id number] 2.16.840.1.938453.3.579.2. 1143 1996 Unknown [id number] 2.16.840.1.167099.3.579.2. 1143 1996 Unknown [id number] 2.16.840.1.542312.3.579.2. 1143 1996 Unknown [id number] 2.16.840.1.659919.3.579.2. 593 1996 Unknown [id number] 2.16.840.1.807620.3.579.2. 593 1996 Unknown [id number] 2.16.840.1.985915.3.579.2. 593 1996 Unknown [id number] 2.16.840.1.709474.3.579.2. 593 1996 Unknown [id number] 2.16.840.1.793959.3.579.2. 593 1996 Unknown [id number] 2.16.840.1.860853.3.579.2. 593 1996 Unknown [id number] 2.16.840.1.985156.3.579.2. 593 1996 Unknown [id number] 2.16.840.1.782028.3.579.2. 727 1996 Unknown [id number] 2.16.840.1.477005.3.579.2. 1286 1996 Unknown [id number] 2.16.840.1.919508.3.579.2. 1286 1996 Unknown [id number] 2.16.840.1.787077.3.579.2. 1259 1996 Unknown [id number] 2.16.840.1.016817.3.579.2. 9 1996 Unknown [id number] 2.16.840.1.079706.3.579.2. 9 1996 Unknown [id number] 2.16.840.1.778479.3.579.2. 1258 1996 Unknown [id number] 2.16.840.1.382417.3.579.2. 9 1996 Unknown [id number] 2.16.840.1.351912.3.579.2. 9 1996 Unknown [id number] 1259 1996 Unknown [id number] 1258 1996 Unknown [id number]. 1259 1996 Unknown [id number]. 1258 1996 Unknown [id number]. 1259 1960 Unknown [id number] 727 1958 Medicaid [id number] 1959 Self-pay 1959 Unknown [id number] 1959 Unknown [id number] 1959 Unknown [id number] Unknown [id number] 531 Social History Date Type Detail Facility Start: 12-05-2020 End: 02-27-2023 Tobacco smoking status NHIS Never smoker [facility] Start: 12-05-2020 End: 11-27-2021 Tobacco use and exposure Never used [facility] Start: 12-05-2020 Alcohol intake Current drinke r of alcohol (finding) [facility] Start: 12-05-2020 End: 11-27-2021 History SDOH Alcohol Frequency 1 [facility] Start: 12-05-2020 Alcohol Comment occ [facility] Start: 1995 [facility]: 11-17-2021 End: 02-12-2022 Exposure to SARS-CoV-2 (event) Not sure [facility] Tobacco smoking stat [facility] Tobacco smoking consumption unknown [facility] Start: 11-27-2021 End: 07-18-2024 Alcohol intake Lifetime non-drinker (finding) [facility] Start: 1995 Sex Assigned At Female T [facility] Start: 12-17-2023 Sex Assigned At F [facility] Tobacco smoking status Never [facility] Start: 03-28-2023 Tobacco smoking stat [facility] Ex-smoker [facility] History of tobacco use [facility] smoker [facility] History of tobacco use Cigarette [facility] Start: 12-17-2023 History of Social function [facility] Start: 11-17-2023 [facility] Start: 01-19-2023 Gender identity Identifies as female gender (finding) [facility] Healthcare Functional Status Date [...] nursing note reviewed. Exam conducted with a lining baster present. Vitals: Estimated body mass index is [...] Berto Smith DO documented in this encounter [facility] 07-04-2024 History of Present illness Narrative Reason [...] nursing note reviewed. Exam conducted with a lining baster present. Vitals: Estimated body mass index is [...] of: ESSENCE Haley documented in this encounter [facility] 06-21-2024 History of Present illness Narrative [...] nursing note reviewed. Exam conducted with a lining baster present. Vitals: Estimated body mass index is [...] Little Christie PA-C documented in this encounter [facility] 06-07-2024 History of Present [...] nursing note reviewed. Exam conducted with a lining baster present. Vitals: Estimated body mass index is [...] Berto Smith DO documented in this encounter [facility] 05-24-2024 History of Present [...] of: ESSENCE Haley documented in this encounter [facility] 05-09-2024 History of Present [...] nursing note reviewed. Exam conducted with a lining baster present. Vitals: Estimated body mass index is [...] Berto Smith DO documented in this encounter [facility] 04-11-2024 History of Present [...] of: ESSENCE Haley documented in this encounter [facility] 03-14-2024 History of Present [...] nursing note reviewed. Exam conducted with a lining baster present. Vitals: Estimated body mass index is [...] Berto Smith DO documented in this encounter [facility] 02-27-2023 Note Chief Complaint [...] excisional biopsy under local anesthesia at [facility]; call with problems/questions. Follow-up No qualifying data [...] Recorded SARS-CoV-2 (COVID-19) mRNA-1273 vaccine 06/08/2021 Recorded [facility] Comment on above: Result Comment: Elec tronically Signed By: ALEXANDRA RANGEL, Gary Jackson\Date and Time Signed: 02/27/23 16:20 EDT 02-12-2022 History of Present illness Narrative Attempted to complete Mchart and patient was not online despite speaking to ME prior to appointment. Attempted to call on phone 3 separate times before noon with no answer. May reschedule at later date. documented in this encounter [facility] 01-08-2022 History of Present illness Narrative bp's [...] to buspirone. documented in this encounter [facility] 12-10-2021 Evaluation note Encounter Date Diagnosis Assessment Notes Dec, Irritable bowel syndrome with diarrhea (ICD-10 - K58.0) Continue medications without change Dec, Epigastric pain (ICD-10 - R10.13) Dec, Chronic nausea (ICD-10 - R11.0) Dec, Family history of carcinoma in situ of anal canal (ICD-10 - Z84.89) Dec, Other Continue Zofran prn Pt to call if symptoms worsen [facility] Other 05-25-2022 History of Present illness Narrative* Wiley Osorio DO - 11/27/2021 2:00 PM EDT Subjective Patient ID: Leslie Ford is a 26 y.o. female. Chief Complaint Patient presents with [facility] Care 26 y.o. female [facility]. History of anxiety and depression. Has [...] ( July 2017) [id number] History of Present illness Narrative* Dana Rosario [...] me to do? documented [id number] History of Present illness Narrative* James Churchill PA-C - 12/05/2020 8:22 PM EDT Images from the original note were not included. Patient Name: [facility] Location: [place] [id number] Date Of : Date Of Visit: 1995 12/05/2020 MRN# Provider: [id number] James Churchill PA-C Chief Complaint Patient presents [...] urine from irritatingthe sores. ? Take an dvpr-rbn-efzswgv pain medicine, such as acetaminophen (Tylenol), ibuprofen [...] Log into your personal health record on [email or web address] [email or web address] and enter E579 in the Education box to learn more about Genital Herpes: Care Instructions. Current as of: August 31, 2019 Content Version: 12.8 [employer]. Care instructions adapted under license by your healthcare professional. If you have questions about a medical condition or this instruction, always ask your healthcare professional. [employer] disclaims any warranty or liability for your use of this information. documented in this [id number] Instructions* Patient Instructions* James Churchill PA-C - [...] urine from irritatingthe sores. ? Take an doot-gzg-xzhqscf pain medicine, such as acetaminophen (Tylenol), ibuprofen [...] Log into your personal health record on [email or web address] [email or web address] and enter E579 in the Education box to learn more about Genital Herpes: Care Instructions. Current as of: August 31, 2019 Content Version: 12.8 [employer]. Care instructions adapted under license by your healthcare professional. If you have questions about a medical condition or this instruction, always ask your healthcare professional. [employer] disclaims any warranty or liability for your use of this information. [facility] No data available for this section [facility]* Diagnosis Vaginal sore- Primary documented in this encounter [facility] note* Diagnosis Anxiety- Primary Anxiety state, unspecified [facility] Diagnosis Anxiety- Primary Anxiety state, unspecified Hypotension, unspecified hypotension type [facility] Diagnosis Anxiety- Primary Anxiety state, unspecified [facility]* Diagnosis Second trimester state, incidental 22 weeks gestation of Diabetes mellitus screening Screening for diabetes mellitus documented in this encounter [facility]* Diagnosis Second trimester state, incidental 26 weeks gestation of History of miscarriage Personal history of other genital system and obstetric disorders documented in this encounter [facility] note* Diagnosis 31 weeks gestation of Third trimester state, incidental Gastroesophageal reflux in documented in this encounter [facility] Healthcare[facility]* Diagnosis Third trimester state, incidental 33 weeks gestation of documented in this encounter [facility] HealthcareEvaluation note* Diagnosis Second trimester state, incidental documented in this encounter [facility] note* Diagnosis Third trimester state, incidental 29 weeks gestation of Upper respiratory tract infection, unspecified type documented in this encounter [facility] note* Diagnosis Third trimester state, incidental 34 weeks gestation of documented in this encounter [facility] note* Diagnosis 36 weeks gestation of Third trimester state, incidental H/O cold sores [facility] Narrative - Reported* Type Description Date Medical History [facility] Other Hospital Discharge instructions No data available [...] Documents on File Type Date Recorded Patient Inspector [employer] Expl anation Advance Directives and Living Will Documents on File Type Date Recorded Patient Inspector [employer] Expl anation Power of Multimedia Developer Additional Source Comments INFORMATION SOURCE (unrecogn ized section and content) DATE CREATED AUTHOR 12/30/2017 [facility] DATE CREATED AUTHOR AUTHOR'S ORGANIZ ATION 12/06/2020 [facility] DATE CREATED AUTHOR AUTHOR'S ORGANIZ ATION 02/16/2022 [facility] DATE CREATED AUTHOR AUTHOR'S ORGANIZ ATION 02/27/2022 [facility] DATE CREATED AUTHOR AUTHOR'S ORGANIZ ATION 11/14/2022 [facility] DATE CREATED AUTHOR AUTHOR'S ORGANIZ ATION 03/02/2023 [facility] DATE CREATED AUTHOR AUTHOR'S ORGANIZ ATION 07/05/2023 [facility] DATE CREATED AUTHOR AUTHOR'S ORGANIZ ATION 03/25/2024 [facility] DATE CREATED AUTHOR AUTHOR'S ORGANIZ ATION 07/05/2024 [facility] d[facility] Specialists EPIC Reason for Visit [...] Care Teams (unrecognized sec tion and content) Wig Stylist Relationship Specialty Start Date End Date Wiley Osorio, DO [address] [place] [phone] PCP - General Family Medicine 11/27/21 Wig Stylist Relationship Specialty Start Date End Date Lalito Osoriolenigel Huffman, DO [address] [place] [phone] PCP - General Family Medicine 11/27/21 Wig Stylist Relationship Specialty Start Date End Date Lalito Osoriolenigel Huffman, DO [address] [place] [phone] PCP - General Family Medicine 11/27/21 Wig Stylist Relationship Specialty Start Date End Date Homar Beltran MD [address] [place] [address] PCP - General Family Medicine 01/20/23 Wig Stylist Relationship Specialty Start Date End Date Homar Beltran MD [address] [place] [address] PCP - General Family Medicine 01/20/23 Wig Stylist Relationship Specialty Start Date End Date Homar Beltran MD [address] [place] [address] PCP - General Family Medicine 01/20/23 Wig Stylist Relationship Specialty Start Date End Date Homar Beltran MD [address] [facility] [place] [address] PCP - General Family Medicine 01/20/23 Wig Stylist Relationship Specialty Start Date End Date Homar Beltran MD [address] [facility] [place] [address] PCP - General Family Medicine 01/20/23 Wig Stylist Relationship Specialty Start Date End Date Homar Beltran MD [address] [facility] [place] [address] PCP - General Family Medicine 01/20/23 Wig Stylist Relationship Specialty Start Date End Date Homar Beltran MD [address] [facility] [place] [address] PCP - General Family Medicine 01/20/23 Wig Stylist Relationship Specialty Start Date End Date Homar Beltran MD [address] [facility] [place] [address] PCP - General Family Medicine 01/20/23 Wig Stylist Relationship Specialty Start Date End Date Homar Beltran MD [address] [facility] [place] [address] PCP - General Family Medicine 01/20/23 Wig Stylist Relationship Specialty Start Date End Date Homar Beltran MD [address] [facility] [place] [address] PCP - General Family Medicine 01/20/23 Wig Stylist Relationship Specialty Start Date End Date Homar Beltran MD [address] [place] [phone] PCP - General Family Medicine 01/20/23 FOR [...] PRIMARY CLINICAL RECORDS. [facility] [facility]. provides no warranty or guarantee of the accuracy or completeness of information in this document.
--- NOTE | 2024-07-22 | US_ITS ---
[place] [id number] Patient Name: KISHAN RAMSEY MRN: [id number] date: 1995 Sex: F [place] [facility] [place] [facility] Location[facility] Accession/Order Number: [id number] Exam Date: 07/22/2024 14:15 Report Date: 07/22/2024 14:54 At the request of: KATELYN DUVALL Procedure: US OB BPP w non-stress EXAMINATION: US OB BPP w non-stress HISTORY:History of miscarriage COMPARISON: Ultrasound OB biophysical 07/14/2024 TECHNIQUE: Ultrasound biophysical profile was performed in the radiology department. BREATHING MOVEMENTS: 2 GROSS BODY MOVEMENTS: 2 TONE: 2 QUALITATIVE AMNIOTIC FLUID VOLUME: 2 PRESENTATION: CEPHALIC HEART RATE: 169.81 bpm AMNIOTIC FLUID VOLUME: 17.44 cm GESTATIONAL AGE: 37 weeks 3 days US/US OB BPP w non-stress IMPRESSION: Total biophysical profile score: 8 Electronically authenticated by: SHAINA SHOEMAKER Date: 07/22/2024 14:54
--- NOTE | 2024-07-22 | US_ITS ---
[address] [address] Patient Name: KISHAN RAMSEY MRN: [id number] date: 1995 Sex: F [place] [facility] Current Patient Location: Accession/Order Number: [id number] Exam Date: 07/22/2024 14:15 Report Date: 07/22/2024 16:24 At the request of: KATELYN DUVALL Procedure: US OB amniotic fluid vol EXAMINATION: US OB amniotic fluid vol HISTORY: History of miscarriage Z87.59 COMPARISON: Ultrasound OB growth 07/14/2024 TECHNIQUE: Limited sonographic examination for amniotic fluid volume FINDINGS: Presentation: Cephalic Amniotic fluid: 17.4 cm; normal range Heart rate: 170 bpm GA: 37 weeks 3 days SANCHO: 08/09/2024 US/US OB amniotic fluid vol IMPRESSION: 1. Single live intrauterine . 2. Normal amniotic fluid volume, not significantly changed. Electronically authenticated by: SHAINA SHOEMAKER Date: 07/22/2024 16:24
--- OUTSIDE RECORDS SUMMARY | 2024-07-22 00:34 | XMS_ITS | CCD ---
Author Organization [facility] Care Team Providers Care Call Worker Person Name Role Phone KIM SUTHERLAND Unavailable Unavailable WILLY CONKLIN Unavailable Unavailable HOMAR BELTRAN Unavailable Unavailable HOMAR BELTRAN Unavailable Unavailable No, Physician Primary Care Provider Unavailsuman e FINN, PHYSICIAN Primary Care Unavailable JAMES ALCAZAR Attending Unavailable Unavailable Primary Care Provider Unavailsuman e Wiley Osorio DO Primary Care Provider Bret Long Unavailable RICE RICE, WILEY WILEY M~[id number] Attending Unavailable RICE RICE, WILEY WILEY M~[id number] Primary Ca re Unavailable RICE RICE, WILEY WILEY M~[id number] Attending Unavailable RICE RICE, WILEY WILEY M~[id number] Primary Ca re Unavailable RICE RICE, WILEY WILEY M~[id number] Attending Unavailable RICE RICE, WILEY WILEY M~[id number] Primary Ca re Unavailable RICE RICE, WILEY WILEY M~[id number] Attending Unavailable RICE RICE, WILEY WILEY M~[id number] Primary Ca re Unavailable RICE RICE, WILEY WILEY M~[id number] Referring Unavailable RICE RICE, WILEY WILEY M~[id number] Primary Ca re Unavailable ITA REYES Admitting [...] Care Unavailable CLAUDE KHAN Primary Care Physician [phone] Gary MORRIS Attending Unavailable ChristelleAlexandr graham Attending Unavailab Alexandr Ventura Admitting Unavailab Homar Mcgowan Primary Care Unavailable LUIS, BERTO Dante Referring Unavailable HOMAR BELTRNA Primary Care Unavailable SENAIT MARTIN Attending Unavailable LUIS, BERTO R Referring Unavailable HOMAR BELTRAN Primary Care Unavailable Homar Beltran MD Primary Care Provider [phone] EZRA, LITTLE Attending Unavailable LUIS, BERTO Attending Unavailable EZRA, LITTLE Attending Unavailable LUIS, BERTO Attending Unavailable EZRA, LITTLE Attending Unavailable LUIS, BERTO Attending Unavailable EZRA, LITTLE Attending Unavailable LUIS, BERTO Attending Unavailable EZRA, LITTLE Attending Unavailable EZRA, LITTLE Attending Unavailable LUIS, BERTO Attending Unavailable Allergies Allergy Classification Reported Allergen(s) Allergy Type Date of Onset Reaction(s) Facility (1 source) No Known Medication Allergies; Translations: [No Known Medication Allergies] Propensity to adverse reactions (disorder) [facility] Medications Current Medications Medication Drug [...] UA Negative Negative - 4(70) +++ mg/dL [facility] Blood, UA Negative Negative - 50 Angel Luis/mcL [facility] Clarity, UA Clear [facility] Color, UA Miryam [facility] Glucose, UA Negative Negative - 2000(110) ++++ mg/dL [facility] Interpretation and review of laboratory results Abnormal [facility] Ketones, UA Positive Negative - 160(16) ++++ mg/dL [facility] Comment on above: 15 Leukocytes, UA Negative Negative - 500+++ Drew/mcL [facility] Nitrite, UA Negative Negative - Positive [facility] pH, UA 7 5 - 9 [facility] Protein, UA Positive Negative - 2000(20) ++++ mg/dL [facility] Comment on above: 30 Spec Grav, UA 1.025 1 - 1.03 [facility] Urobilinogen, UA 0.2 0.2 - 12 mg/dL [facility] ALL CBC WITH AUTO DIFFon BASOPHILS ABSOLUTE AUTO 0.1 [facility] Basophils/100 WBC (Bld) 0.5 % 0.2 - 2.0 % [facility] Eosinophils/100 WBC (Bld) 1.2 % 0.9 - 7.0 % [facility] Erythrocyte distribution width (RBC) [Ratio] 13.3 % 11.0 - 15.0 % [facility] Hematocrit (Bld) [Volume fraction] 34.6 % Low 36.0 - 48.0 % [facility] Hemoglobin (Bld) [Mass/Vol] 11.1 g/dL Low 12.0 - 16.0 g/dL [facility] IMMATURE GRANULOCYTES ABS AUTO 0.22 High [facility] Immature granulocytes/100 WBC (Bld) 1.3 % High 0.0 - 0.5 % [facility] Interpretation and review of laboratory results Abnormal [facility] LYMPHOCYTES ABSOLUTE AUTO 3 [facility] Lymphocytes/100 WBC (Bld) 18.2 % Low 20.5 - 60.0 % [facility] MCH (RBC) [Entitic mass] 26.1 pg Low 26.7 - 34.0 pg [facility] MCHC (RBC) [Mass/Vol] 32.1 g/dL 29.9 - 35.2 g/dL [facility] MCV (RBC) [Entitic vol] 81.4 fL 81.0 - 99.0 fL [facility] MONOCYTES ABSOLUTE AUTO 1.3 High [facility] Monocytes/100 WBC (Bld) 7.7 % 1.7 - 12.0 % [facility] NEUTROPHILS ABSOLUTE AUTO 11.6 High [facility] Neutrophils/100 WBC (Bld) 71.1 % 43.0 - 75.0 % [facility] Platelet mean volume (Bld) [Entitic vol] 9.7 fL 9.5 - 13.5 fL [facility] TBH EO # 0.2 [facility] TB PLT 349 [facility] RBC 4.25 [facility] WBC 16.3 High [facility] Urinalysis macro (dipstick) panel (U)on 07-04-2024 Bilirubin, UA Negative Negative - 4(70) +++ mg/dL [facility] Blood, UA Negative Negative - 50 Angel Luis/mcL [facility] Clarity, UA Cloudy [facility] Color, UA Yellow [facility] Glucose, UA Negative Negative - 1999(110) ++++ mg/dL [facility] Interpretation and review of laboratory results Abnormal [facility] Ketones, UA Positive Negative - 160(16) ++++ mg/dL [facility] Comment on above: 40mg/dL Leukocytes, UA Few Negative - 500+++ Drew/mcL [facility] Comment on above: small Nitrite, UA Negative Negative - Positive [facility] pH, UA 7 5 - 9 [facility] Protein, UA Few Negative - 1999(20) ++++ mg/dL [facility] Comment on above: 30mg/dL Spec Grav, UA 1.025 1 - 1.03 [facility] Urobilinogen, UA 0.2 0.2 - 12 mg/dL [facility] Urinalysis macro (dipstick) panel (U)on 06-21-2024 Bilirubin, UA Negative Negative - 4(70) +++ mg/dL [facility] Blood, UA Negative Negative - 50 Angel Luis/mcL [facility] Clarity, UA Clear [facility] Color, UA Yellow [facility] Glucose, UA Negative Negative - 1999(110) ++++ mg/dL [facility] Interpretation and review of laboratory results Abnormal [facility] Ketones, UA Negative Negative - 160(16) ++++ mg/dL [facility] Leukocytes, UA Negative Negative - 500+++ Drew/mcL [facility] Nitrite, UA Negative Negative - Positive [facility] pH, UA 7 5 - 9 [facility] Protein, UA Positive Negative - 1999(20) ++++ mg/dL [facility] Comment on above: 30 Spec Grav, UA 1.02 1 - 1.03 [facility] Urobilinogen, UA 0.2 0.2 - 12 mg/dL [facility] Urinalysis macro (dipstick) panel (U)on 06-07-2024 Bilirubin, UA Negative Negative - 4(70) +++ mg/dL [facility] Blood, UA Negative Negative - 50 Angel Luis/mcL [facility] Clarity, UA Clear [facility] Color, UA Yellow [facility] Glucose, UA Negative Negative - 1999(110) ++++ mg/dL [facility] Interpretation and review of laboratory results Normal [facility] Ketones, UA Negative Negative - 160(16) ++++ mg/dL [facility] Leukocytes, UA Negative Negative - 500+++ Drew/mcL [facility] Nitrite, UA Negative Negative - Positive [facility] pH, UA 7 5 - 9 [facility] Protein, UA Negative Negative - 1999(20) ++++ mg/dL [facility] Spec Grav, UA 1.02 1 - 1.03 [facility] Urobilinogen, UA 0.2 0.2 - 12 mg/dL [facility] Urinalysis macro (dipstick) panel (U)on 05-09-2024 Bilirubin, UA Positive Negative - 4(70) +++ mg/dL [facility] Comment on above: small Blood, UA Negative Negative - 50 Angel Luis/mcL [facility] Clarity, UA Clear [facility] Color, UA Miryam [facility] Glucose, UA Negative Negative - 1999(110) ++++ mg/dL [facility] Interpretation and review of laboratory results Abnormal [facility] Ketones, UA Positive Negative - 160(16) ++++ mg/dL [facility] Comment on above: trace Leukocytes, UA Negative Negative - 500+++ Drew/mcL [facility] Nitrite, UA Negative Negative - Positive [facility] pH, UA 6 5 - 9 [facility] Protein, UA Positive Negative - 1999(20) ++++ mg/dL [facility] Comment on above: 30 mg Spec Grav, UA 1.03 1 - 1.03 [facility] Urobilinogen, UA 0.2 0.2 - 12 mg/dL [facility] Urinalysis macro (dipstick) panel (U)on 04-11-2024 Bilirubin, UA Negative Negative - 4(70) +++ mg/dL [facility] Blood, UA Negative Negative - 50 Angel Luis/mcL [facility] Clarity, UA Clear [facility] Color, UA Yellow [facility] Glucose, UA Negative Negative - 1999(110) ++++ mg/dL [facility] Interpretation and review of laboratory results Normal [facility] Ketones, UA Negative Negative - 160(16) ++++ mg/dL [facility] Leukocytes, UA Negative Negative - 500+++ Drew/mcL [facility] Nitrite, UA Negative Negative - Positive [facility] pH, UA 6.5 5 - 9 [facility] Protein, UA Negative Negative - 1999(20) ++++ mg/dL [facility] Spec Grav, UA 1.020 1 - 1.03 [facility] Urobilinogen, UA 0.2 0.2 - 12 mg/dL [facility] Urinalysis macro (dipstick) panel (U)on 03-14-2024 Bilirubin, UA Negative Negative - 4(70) +++ mg/dL [facility] Blood, UA Negative Negative - 50 Angel Luis/mcL [facility] Clarity, UA Clear [facility] Color, UA Yellow [facility] Glucose, UA Negative Negative - 1999(110) ++++ mg/dL [facility] Interpretation and review of laboratory results Normal [facility] Ketones, UA Negative Negative - 160(16) ++++ mg/dL [facility] Leukocytes, UA Negative Negative - 500+++ Drew/mcL [facility] Nitrite, UA Negative Negative - Positive [facility] pH, UA 7.0 5 - 9 [facility] Protein, UA Negative Negative - 1999(20) ++++ mg/dL [facility] Spec Grav, UA 1.020 1 - 1.03 [facility] Urobilinogen, UA 0.2 0.2 - 12 mg/dL [facility] Facesheeton 03-02-2023 Facesheet [id number] CD:127 Normal [facility] Ambulatory Visit Summaryon 0 02-27-2023 Ambulatory Visit Summary LESLIE FORD :1995 Visit Date:02/27/2023 Ambulatory Visit Instructions Your Care Team Attending Physician - ALEXADNRA RANGEL, Gary Howell Primary Care Physician - [...] History of pre-eclampsia Insomnia Migraines Overweight Normal [facility] RAD - Ultrasound Reporton RAD - Ultrasound Report [id number] D:127 Normal [facility] Physician Referralon 023 Physician Referral [id number] D:127 Normal [facility] INSULINon 11-08-2022 Insulin 7.7 uIU/mL Normal 2.6-24.9 [facility] Comment on above: Performed By: #### V ITAD, IRON #### [facility] [address] [place] [address] Dr. Chucho Jesus CBC AUTO DIFFon 11-07-2022 BASO # 0.0 103/ul Normal 0.0-0.1 [facility] Comment on above: Performed By: #### V ITAD, IRON #### [facility] [address] [address] [address] Chucho Jesus Basophils/100 WBC (Bld) 0.6 % Normal 0.2-2.0 [facility] Comment on above: Performed By: #### V ITAD, IRON #### [facility] [address] [place] [address] Dr. Chucho Jesus EO # 0.1 103/ul Normal 0.0-0.7 [facility] Comment on above: Performed By: #### V ITAD, IRON #### [facility] [address] [place] [address] Dr. Chucho Jesus Eosinophils/100 WBC (Bld) 1.4 % Normal 0.9-7.0 [facility] Comment on above: Performed By: #### V ITAD, IRON #### [facility] [address] [place] [address] Dr. Chucho Jesus Erythrocyte distribution width (RBC) [Ratio] 13.9 % Normal 11.0-15.0 [facility] Comment on above: Performed By: #### V ITAD, IRON #### [facility] [address] [place] [address] Dr. Chucho Jesus Hematocrit (Bld) [Volume fraction] 45.6 % Normal 36.0-48.0 [facility] Comment on above: Performed By: #### V ITAD, IRON #### [facility] [address] [place] [address] Dr. Chucho Jesus Hemoglobin (Bld) [Mass/Vol] 15.1 g/dL Normal 12.0-16.0 [facility] Comment on above: Performed By: #### V ITAD, IRON #### [facility] [address] [place] [address] Dr. Chucho Jesus IG # 0.01 10e3/ul Normal 0.00-0.03 [facility] Comment on above: Performed By: #### V ITAD, IRON #### [facility] [address] [place] [address] Dr. Chucho Jesus IG % 0.1 % Normal 0.0-0.5 [facility] Comment on above: Performed By: #### V ITAD, IRON #### [facility] [address] [place] [address] Dr. Chucho Jesus LYMPH # 1.9 103/ul Normal 1.2-3.8 [facility] Comment on above: Performed By: #### V ITAD, IRON #### [facility] [address] [place] [address] Dr. Chucho Jesus Lymphocytes/100 WBC (Bld) 26.3 % Normal 20.5-60.0 [facility] Comment on above: Performed By: #### V ITAD, IRON #### [facility] [address] [place] [address] Dr. Chucho Jesus MANUAL DIFF REQ NO Normal [facility] Comment on above: Performed By: #### V ITAD, IRON #### [facility] [address] [place] [address] Dr. Chucho Jesus MCH (RBC) [Entitic mass] 27.9 pg Normal 26.7-34.0 [facility] Comment on above: Performed By: #### V ITAD, IRON #### [facility] [address] [place] [address] Dr. Chucho Jesus MCHC (RBC) [Mass/Vol] 33.1 g/dL Normal 29.9-35.2 [facility] Comment on above: Performed By: #### V ITAD, IRON #### [facility] [address] [place] [address] Dr. Chucho Jesus MCV (RBC) [Entitic vol] 84.1 fL Normal 81.0-99.0 [facility] Comment on above: Performed By: #### V ITAD, IRON #### [facility] [address] [place] [address] Dr. Chucho Jesus MONO # 0.5 103/ul Normal 0.3-0.8 [facility] Comment on above: Performed By: #### V ITAD, IRON #### [facility] [address] [place] [address] Dr. Chucho Jesus Monocytes/100 WBC (Bld) 7.3 % Normal 1.7-12.0 [facility] Comment on above: Performed By: #### V ITAD, IRON #### [facility] [address] [place] [address] Dr. Chucho Jesus NEUT # 4.6 103/ul Normal 1.4-6.5 [facility] Comment on above: Performed By: #### V ITAD, IRON #### [facility] [address] [place] [address] Dr. Chucho Jesus Neutrophils/100 WBC (Bld) 64.3 % Normal 43.0-75.0 [facility] Comment on above: Performed By: #### V ITAD, IRON #### [facility] [address] [address] [address] Chucho Jesus Platelet mean volume (Bld) [Entitic vol] 10.9 fL Normal 9.5-13.5 [facility] Comment on above: Performed By: #### V ITAD, IRON #### [facility] [address] [address] [address] Chucho Jesus PLT 226 103/ul Normal 150-450 [facility] Comment on above: Performed By: #### V ITAD, IRON #### [facility] [address] [place] [address] Dr. Chucho Jesus RBC 5.42 106/ul Critically high 4.20-5.40 [facility] Comment on above: Performed By: #### V ITAD, IRON #### [facility] [address] [place] [address] Dr. Chucho Jesus WBC 7.2 103/ul Normal 4.0-11.0 [facility] Comment on above: Performed By: #### V ITAD, IRON #### [facility] [address] [place] [address] Dr. Chucho Jesus FREE THYROXINE INDEX T7on FTI 3.29 Normal 1.30-4.50 [facility] Comment on above: Performed By: #### V ITAD, IRON #### [facility] [address] [place] [address] Dr. Chucho Jesus T3U 35.0 % Normal 30.0-39.0 [facility] Comment on above: Performed By: #### V ITAD, IRON #### [facility] [address] [address] [address] Chucho Jesus T4 [Mass/Vol] 9.40 ug/dL Normal 4.80-13.90 [facility] Comment on above: Performed By: #### V ITAD, IRON #### [facility] [address] [address] [address] Chucho Jesus GLYCOHEMOGLOBIN A1Con 2022 ADA RECOMMENDATION SEE BELOW Normal [facility] Comment on above: Result Comment: ADA RECOMMENDED LIMIT 4.0 - 6.0 ADA THERAPEUTIC TARGET < 7.0 ACTION SUGGESTED > 7.0 Performed By: #### A 1C #### [facility] [address] [address] [address] Chucho Jesus Glucose [Mass/Vol] 94 mg/dL Normal [facility] Comment on above: Performed By: #### A 1C #### [facility] [address] [place] [address] Dr. Chucho Jesus HbA1c (Bld) [Mass fraction] 4.9 % Normal 4.5-6.2 [facility] Comment on above: Performed By: #### A 1C #### [facility] [address] [place] [address] Dr. Chucho Jesus IRONon 11-07-2022 Iron [Mass/Vol] 81.0 ug/dL Normal 50.0-170.0 [facility] Comment on above: Performed By: #### V ITAD, IRON #### [facility] [address] [place] [address] Dr. Chucho Jesus LIPID PROFILEon 11-07-2022 CHOL-HDL RATIO NORM SEE BELOW Normal [facility] Comment on above: Result Comment: 3.3 - 4.4 LOW RISK 4.4 - 7.1 AVERAGE RISK 7.1 - 11.0 MODERATE RISK >11.0 HIGH RISK Performed By: #### V ITAD, IRON #### [facility] [address] [place] [address] Dr. Chucho Jesus Cholesterol [Mass/Vol] 126 mg/dL Normal <=200 [facility] Comment on above: Performed By: #### V ITAD, IRON #### [facility] [address] [place] [address] Dr. Chucho Jesus Cholesterol in HDL [Mass/Vol] 38 mg/dL Critically low 40-60 [facility] Comment on above: Performed By: #### V ITAD, IRON #### [facility] [address] [address] [address] Chucho Jesus Cholesterol in LDL [Mass/Vol] 79.4 mg/dL Normal [facility] Comment on above: Performed By: #### V ITAD, IRON #### [facility] [address] [address] [address] Chucho Jesus Cholesterol.total/C holesterol in HDL [Mass ratio] 3.3 {ratio} Normal [facility] Comment on above: Performed By: #### V ITAD, IRON #### [facility] [address] [address] [address] Chucho Jesus HDL NORMAL > or = 60 mg/dl - LO W CARDIOVASCULAR RISK <40 mg/dl - HIGH CARDIOVASCULAR RISK Normal [facility] Comment on above: Performed By: #### V ITAD, IRON #### [facility] [address] [place] [address] Dr. Chucho Jesus LDL CALC NORMAL SEE BELOW Normal [facility] Comment on above: Result Comment: <100 mg/dl OPTIMAL 100 - 129 mg/dl NEAR OR ABOVE OPTIMAL 130 - 159 mg/dl BORDERLINE HIGH 160 - 189 mg/dl HIGH >190 mg/dl VERY HIGH Performed By: #### V ITAD, IRON #### [facility] [address] [address] [address] Chucho Jesus Triglyceride [Mass/Vol] 43 mg/dL Normal <=150 [facility] Comment on above: Performed By: #### V ITAD, IRON #### [facility] [address] [address] [address] Chucho Jesus VLDL CALC 8.6 mg/dL Normal [facility] Comment on above: Performed By: #### V ITAD, IRON #### [facility] [address] [address] [address] Chucho Jesus PROF 14(COMP METB)on 023 Albumin [Mass/Vol] 4.2 g/dL Normal 3.4-5.0 [facility] Comment on above: Performed By: #### V ITAD, IRON #### [facility] [address] [address] [address] Chucho Jesus Albumin/Globulin [Mass ratio] 1.1 {ratio} Normal [facility] Comment on above: Performed By: #### V ITAD, IRON #### [facility] [address] [address] [address] Chucho Jesus ALP [Catalytic activity/Vol] 93 U/L Normal 46-116 [facility] Comment on above: Performed By: #### V ITAD, IRON #### [facility] [address] [address] [address] Chucho Jesus ALT [Catalytic activity/Vol] 16 U/L Normal 14-59 [facility] Comment on above: Performed By: #### V ITAD, IRON #### [facility] [address] [place] [address] Dr. Chucho Jesus Anion gap [Moles/Vol] 14.3 mmol/L Normal [facility] Comment on above: Performed By: #### V ITAD, IRON #### [facility] [address] [place] [address] Dr. Chucho Jesus AST [Catalytic activity/Vol] 16 U/L Normal 15-37 [facility] Comment on above: Performed By: #### V ITAD, IRON #### [facility] [address] [place] [address] Dr. Chucho Jesus Bilirubin [Mass/Vol] 1.0 mg/dL Normal 0.2-1.0 [facility] Comment on above: Performed By: #### V ITAD, IRON #### [facility] [address] [place] [address] Dr. Chucho Jesus Calcium [Mass/Vol] 9.4 mg/dL Normal 8.5-10.1 [facility] Comment on above: Performed By: #### V ITAD, IRON #### [facility] [address] [place] [address] Dr. Chucho Jesus Chloride [Moles/Vol] 103 mmol/L Normal 98-107 [facility] Comment on above: Performed By: #### V ITAD, IRON #### [facility] [address] [place] [address] Dr. Chucho Jesus CO2 [Moles/Vol] 24.9 mmol/L Normal 21.0-32.0 [facility] Comment on above: Performed By: #### V ITAD, IRON #### [facility] [address] [address] [address] Chucho Jesus Creatinine [Mass/Vol] 0.68 mg/dL Normal 0.55-1.02 [facility] Comment on above: Performed By: #### V ITAD, IRON #### [facility] [address] [place] [address] Dr. Chucho Jesus EGFR-AF BRAZILIAN >60 Normal >=60 [facility] Comment on above: Performed By: #### V ITAD, IRON #### [facility] [address] [place] [address] Dr. Chucho Jesus EGFR-NON AF BRAZILIAN >60 Normal >=60 [facility] Comment on above: Performed By: #### V ITAD, IRON #### [facility] [address] [address] [address] Chucho Jesus Globulin (S) [Mass/Vol] 3.9 g/dL Normal [facility] Comment on above: Performed By: #### V ITAD, IRON #### [facility] [address] [address] [address] Chucho Jesus Glucose [Mass/Vol] 89 mg/dL Normal 74-106 [facility] Comment on above: Performed By: #### V ITAD, IRON #### [facility] [address] [address] [address] Chucho Jesus Potassium [Moles/Vol] 4.2 mmol/L Normal 3.5-5.1 [facility] Comment on above: Performed By: #### V ITAD, IRON #### [facility] [address] [address] [address] Chucho Jesus Protein [Mass/Vol] 8.1 g/dL Normal 6.4-8.2 [facility] Comment on above: Performed By: #### V ITAD, IRON #### [facility] [address] [address] [address] Chucho Jesus Sodium [Moles/Vol] 138 mmol/L Normal 136-145 [facility] Comment on above: Performed By: #### V ITAD, IRON #### [facility] [address] [address] [address] Chucho Jesus Urea nitrogen [Mass/Vol] 9.0 mg/dL Normal 7.0-18.0 [facility] [facility] Comment on above: Performed By: #### V ITAD, IRON #### [facility] [address] [address] [address] Chucho Jesus Urea nitrogen/Creatinine [Mass ratio] 13.2 mg/mg Normal [facility] Comment on above: Performed By: #### V ITAD, IRON #### [facility] [address] [place] [address] Dr. Chucho Jesus TSHon 11-07-2022 TSH 1.668 uIU/mL Normal 0.358-3.740 [facility] Comment on above: Performed By: #### V ITAD, IRON #### [facility] [address] [place] [address] Dr. Chucho Jesus [facility] SARS-CoV-2 (COVID-19) RNA DMITRY+probe Ql (Unsp spec) Not detected Normal NOT DETECTED [facility] Comment on above: Result Comment: When [...] for this test is supported by the [employer] of Health and Human Service's declaration [...] #### V ITAD, IRON #### [facility] [address] [place] [address] Dr. Chucho Jesus [facility]on SARS-CoV-2 (COVID-19) RNA DMITRY+probe Ql (Unsp spec) Not detected Normal NOT DETECTED [facility] Comment on above: Result Comment: When [...] for this test is supported by the [place] of Health and Human Service's declaration that [...] By: #### C VDTBH #### [facility] [address] [place] [address] Dr. Chucho Jesus INFLUENZA A AND B AGon 08[facility] SEE BELOW Normal [facility] Comment on above: Result Comment: Nega tive for Flu A protein angiten. Infection due to Flu A cannot be ruled out. Flu A angiten in the sample may be below the detection limit of the test. Performed By: #### I NFLUAB #### [facility] [address] [place] [address] Dr. Chucho Jesus INFLUBNEG SEE BELOW Normal [facility] Comment on above: Result Comment: Nega tive for Flu B protein antigen. Infection due to Flu B cannot be ruled out. Flu B antigen in the sample may be below the detection limit of the test. Performed By: #### I NFLUAB #### [facility] [address] [address] [address] Chucho Jesus INFLUENZA A AG Negative Normal NEGATIVE SEE COMMENT [facility] Comment on above: Performed By: #### I NFLUAB #### [facility] [address] [address] [address] Chucho Jesus INFLUENZA B AG Negative Normal NEGATIVE SEE COMMENT [facility] Comment on above: Performed By: #### I NFLUAB #### [facility] [address] [address] [address] Chucho Jesus Covid-19 PCR ([facility]on 05-07 SARS-CoV-2 (COVID-19) RNA DMITRY+probe Ql (Unsp spec) Not detected Normal NOT DETECTED [facility] Comment on above: Result Comment: When [...] for this test is supported by the [place] of Health and Human Service's declaration that [...] #### V ITAD, IRON #### [facility] [address] [place] [address] Dr. Chucho Jesus INFLUENZA A AND B AGon 05-26 INFLUANEGH SEE BELOW Normal [facility] Comment on above: Result Comment: Nega tive for Flu A protein angiten. Infection due to Flu A cannot be ruled out. Flu A angiten in the sample may be below the detection limit of the test. Performed By: #### V ITAD, IRON #### [facility] [address] [place] [address] Dr. Chucho Jesus [facility] SEE BELOW Normal [facility] Comment on above: Result Comment: Nega tive for Flu B protein antigen. Infection due to Flu B cannot be ruled out. Flu B antigen in the sample may be below the detection limit of the test. Performed By: #### V ITAD, IRON #### [facility] [address] [place] [address] Dr. Chucho Jesus INFLUENZA A AG Negative Normal NEGATIVE SEE COMMENT [facility] Comment on above: Performed By: #### V ITAD, IRON #### [facility] [address] [place] [address] Dr. Chucho Jesus INFLUENZA B AG Negative Normal NEGATIVE SEE COMMENT [facility] Comment on above: Performed By: #### V ITAD, IRON #### [facility] [address] [place] [address] Dr. Chucho Jesus INTERNAL CONTROLS Within Normal Limits Normal Wi thin Normal Limits [facility] Comment on above: Performed By: #### V ITAD, IRON #### [facility] [address] [place] [address] Dr. Chucho Jesus ER URINE PROFILEon 2 Bilirubin Ql (U) Negative Normal NEGATIVE [facility] Comment on above: Performed By: #### V ITAD, IRON #### [facility] [address] [place] [address] Dr. Chucho Jesus Clarity (U) CLEAR Normal CLEAR [facility] Comment on above: Performed By: #### V ITAD, IRON #### [facility] [address] [place] [address] Dr. Chucho Jesus Color (U) YELLOW Normal YELLOW [facility] Comment on above: Performed By: #### V ITAD, IRON #### [facility] [address] [place] [address] Dr. Chucho BAHENA A micrscopic examination will be performed if indicated. Normal [facility] Comment on above: Performed By: #### V ITAD, IRON #### [facility] [address] [place] [address] Dr. Chucho Jesus Glucose Ql (U) Negative Normal NEGATIVE [facility] Comment on above: Performed By: #### V ITAD, IRON #### [facility] [address] [address] [address] Chucho Jesus Hemoglobin Ql (U) Negative Normal NEGATIVE [facility] Comment on above: Performed By: #### V ITAD, IRON #### [facility] [address] [place] [address] Dr. Chucho Jesus Ketones Ql (U) >=80 Abnormal NEGATIVE [facility] Comment on above: Performed By: #### V ITAD, IRON #### [facility] [address] [place] [address] Dr. Chucho Jesus LEUKOCYTES Negative Normal NEGATIVE [facility] Comment on above: Performed By: #### V ITAD, IRON #### [facility] [address] [place] [address] Dr. Chucho Jesus Nitrite Ql (U) Negative Normal NEGATIVE [facility] Comment on above: Performed By: #### V ITAD, IRON #### [facility] [address] [place] [address] Dr. Chucho Jesus pH (U) 6.0 [pH] Normal 5-9 [facility] Comment on above: Performed By: #### V ITAD, IRON #### [facility] [address] [place] [address] Dr. Chucho Jesus Protein (U) [Mass/Vol] 100 mg/dL Abnormal NEGATIVE/ TRACE [facility] Comment on above: Performed By: #### V ITAD, IRON #### [facility] [address] [place] [address] Dr. Chucho Jesus SPEC GRAVITY >=1.030 Abnormal 1.005-<=1.025 [facility] Comment on above: Performed By: #### V ITAD, IRON #### [facility] [address] [place] [address] Dr. Chucho Jesus UR MICRO IND INDICATED Normal [facility] Comment on above: Performed By: #### V ITAD, IRON #### [facility] [address] [address] [address] Chucho Jesus Urobilinogen Qn (U) 0.2 {Chelsea'U}/dL Normal 0.2 - 1. 0 [facility] Comment on above: Performed By: #### V ITAD, IRON #### [facility] [address] [address] [address] Chucho Jesus URon 05-22-2022 , QUAL Negative Normal NEGATIVE [facility] Comment on above: Performed By: #### V ITAD, IRON #### [facility] [address] [address] [address] Chucho Jesus URINE MICROSCOPIC ONLYon BACTERIA NONE SEEN Normal NONE SEEN [facility] Comment on above: Performed By: #### V ITAD, IRON #### [facility] [address] [place] [address] Dr. Chucho Jesus Bacteria identified Cx Nom (U) NOT INDICATED Normal [facility] Comment on above: Performed By: #### V ITAD, IRON #### [facility] [address] [place] [address] Dr. Chucho Jesus CAST NONE SEEN Normal NONE SEEN [facility] Comment on above: Performed By: #### V ITAD, IRON #### [facility] [address] [place] [address] Dr. Chucho Jesus Crystals LM Nom (Urine sed) NONE SEEN Normal NONE SEEN [facility] Comment on above: Performed By: #### V ITAD, IRON #### [facility] [address] [place] [address] Dr. Chucho Jesus Epithelial cells LM Ql (Urine sed) FEW Abnormal NONE SEEN /RARE [facility] Comment on above: Performed By: #### V ITAD, IRON #### [facility] [address] [address] [address] Chucho Jesus MUCOUS MODERATE Abnormal NONE SEEN [facility] Comment on above: Performed By: #### V ITAD, IRON #### [facility] [address] [place] [address] Dr. Chucho Jesus RBC NONE SEEN Abnormal 0-2 [facility] Comment on above: Performed By: #### V AMAURY, IRON #### [facility] [address] [place] [address] Dr. Chucho Jesus WBC NONE SEEN Normal NONE SEEN [facility] Comment on above: Performed By: #### V AMAURY, IRON #### [facility] [address] [place] [address] Dr. Chucho Jesus XR LSPINE 2_3 VIEWSon [...] Date: 2022-05-22 12:28 Normal [facility] INSULINon 04-25-2022 Insulin 10.4 uIU/mL Normal 2.6-24.9 [facility] Comment on above: Performed By: #### V AMAURY, IRON #### [facility] [address] [place] [address] Dr. Chucho Jesus CBC AUTO DIFFon 04-24-2022 BASO # 0.0 103/ul Normal 0.0-0.1 [facility] Comment on above: Performed By: #### C BC #### [facility] [address] [place] [address] Dr. Chucho Jesus Basophils/100 WBC (Bld) 0.6 % Normal 0.2-2.0 [facility] Comment on above: Performed By: #### C BC #### [facility] [address] [place] [address] Dr. Chucho Jesus EO # 0.1 103/ul Normal 0.0-0.7 [facility] Comment on above: Performed By: #### C BC #### [facility] [address] [place] [address] Dr. Chucho Jesus Eosinophils/100 WBC (Bld) 1.8 % Normal 0.9-7.0 [facility] Comment on above: Performed By: #### C BC #### [facility] [address] [place] [address] Dr. Chucho Jesus Erythrocyte distribution width (RBC) [Ratio] 12.9 % Normal 11.0-15.0 [facility] Comment on above: Performed By: #### C BC #### [facility] [address] [place] [address] Dr. Chucho Jesus Hematocrit (Bld) [Volume fraction] 45.6 % Normal 36.0-48.0 [facility] Comment on above: Performed By: #### C BC #### [facility] [address] [place] [address] Dr. Chucho Jesus Hemoglobin (Bld) [Mass/Vol] 14.7 g/dL Normal 12.0-16.0 [facility] Comment on above: Performed By: #### C BC #### [facility] [address] [place] [address] Dr. Chucho Jesus IG # 0.02 10e3/ul Normal 0.00-0.03 [facility] Comment on above: Performed By: #### C BC #### [facility] [address] [place] [address] Dr. Chucho Jesus IG % 0.3 % Normal 0.0-0.5 [facility] Comment on above: Performed By: #### C BC #### [facility] [address] [place] [address] Dr. Chucho Jesus LYMPH # 1.6 103/ul Normal 1.2-3.8 [facility] Comment on above: Performed By: #### C BC #### [facility] [address] [place] [address] Dr. Chucho Jesus Lymphocytes/100 WBC (Bld) 24.5 % Normal 20.5-60.0 [facility] Comment on above: Performed By: #### C BC #### [facility] [address] [place] [address] Dr. Chucho Jesus MANUAL DIFF REQ NO Normal [facility] Comment on above: Performed By: #### C BC #### [facility] [address] [place] [address] Dr. Chucho Jesus MCH (RBC) [Entitic mass] 28.4 pg Normal 26.7-34.0 [facility] Comment on above: Performed By: #### C BC #### [facility] [address] [place] [address] Dr. Chucho Jesus MCHC (RBC) [Mass/Vol] 32.2 g/dL Normal 29.9-35.2 [facility] Comment on above: Performed By: #### C BC #### [facility] [address] [place] [address] Dr. Chucho Jesus MCV (RBC) [Entitic vol] 88.2 fL Normal 81.0-99.0 [facility] Comment on above: Performed By: #### C BC #### [facility] [address] [place] [address] Dr. Chucho Jesus MONO # 0.5 103/ul Normal 0.3-0.8 [facility] Comment on above: Performed By: #### C BC #### [facility] [address] [place] [address] Dr. Chucho Jesus Monocytes/100 WBC (Bld) 7.4 % Normal 1.7-12.0 [facility] Comment on above: Performed By: #### C BC #### [facility] [address] [place] [address] Dr. Chucho Jesus NEUT # 4.4 103/ul Normal 1.4-6.5 [facility] Comment on above: Performed By: #### C BC #### [facility] [address] [place] [address] Dr. Chucho Jesus Neutrophils/100 WBC (Bld) 65.4 % Normal 43.0-75.0 [facility] Comment on above: Performed By: #### C BC #### [facility] [address] [address] [address] Chucho Jesus Platelet mean volume (Bld) [Entitic vol] 9.9 fL Normal 9.5-13.5 [facility] Comment on above: Performed By: #### C BC #### [facility] [address] [address] [address] Chucho Jesus PLT 225 103/ul Normal 150-450 [facility] Comment on above: Performed By: #### C BC #### [facility] [address] [address] [address] Chucho Jesus RBC 5.17 106/ul Normal 4.20-5.40 [facility] Comment on above: Performed By: #### C BC #### [facility] [address] [address] [address] Chucho Jesus WBC 6.7 103/ul Normal 4.0-11.0 [facility] Comment on above: Performed By: #### C BC #### [facility] [address] [address] [address] Chucho Jesus FREE THYROXINE INDEX T7on FTI 3.29 Normal 1.30-4.50 [facility] Comment on above: Performed By: #### T 7, TSH, LIPID, CMP #### [facility] [address] [place] [address] Dr. Chucho Jesus T3U 27.0 % Critically low 30.0-39.0 [facility] Comment on above: Performed By: #### T 7, TSH, LIPID, CMP #### [facility] [address] [place] [address] Dr. Chucho Jesus T4 [Mass/Vol] 12.20 ug/dL Normal 4.80-13.90 [facility] Comment on above: Performed By: #### T 7, TSH, LIPID, CMP #### [facility] [address] [place] [address] Dr. Chucho Jesus GLYCOHEMOGLOBIN A1Con 2021 ADA RECOMMENDATION SEE BELOW Normal [facility] Comment on above: Result Comment: ADA RECOMMENDED LIMIT 4.0 - 6.0 ADA THERAPEUTIC TARGET < 7.0 ACTION SUGGESTED > 7.0 Performed By: #### A 1C #### [facility] [address] [address] [address] Chucho Jesus Glucose [Mass/Vol] 105 mg/dL Normal [facility] Comment on above: Performed By: #### A 1C #### [facility] [address] [place] [address] Dr. Chucho Jesus HbA1c (Bld) [Mass fraction] 5.3 % Normal 4.5-6.2 [facility] Comment on above: Performed By: #### A 1C #### [facility] [address] [place] [address] Dr. Chucho Jesus IRONon 04-24-2022 Iron [Mass/Vol] 48.0 ug/dL Critically low 50.0-170.0 [facility] Comment on above: Performed By: #### V ITAD, IRON #### [facility] [address] [place] [address] Dr. Chucho Jesus LIPID PROFILEon 04-24-2022 CHOL-HDL RATIO NORM SEE BELOW Normal [facility] Comment on above: Result Comment: 3.3 - 4.4 LOW RISK 4.4 - 7.1 AVERAGE RISK 7.1 - 11.0 MODERATE RISK >11.0 HIGH RISK Performed By: #### V ITAD, IRON #### [facility] [address] [place] [address] Dr. Chucho Jesus Cholesterol [Mass/Vol] 184 mg/dL Normal <=200 [facility] Comment on above: Performed By: #### V ITAD, IRON #### [facility] [address] [place] [address] Dr. Chucho Jesus Cholesterol in HDL [Mass/Vol] 55 mg/dL Normal 40-60 [facility] Comment on above: Performed By: #### V ITAD, IRON #### [facility] [address] [place] [address] Dr. Chucho Jesus Cholesterol in LDL [Mass/Vol] 116.6 mg/dL Normal [facility] Comment on above: Performed By: #### V ITAD, IRON #### [facility] [address] [address] [address] Chucho Jesus Cholesterol.total/C holesterol in HDL [Mass ratio] 3.3 {ratio} Normal [facility] Comment on above: Performed By: #### V ITAD, IRON #### [facility] [address] [address] [address] Chucho Jesus HDL NORMAL > or = 60 mg/dl - LO W CARDIOVASCULAR RISK <40 mg/dl - HIGH CARDIOVASCULAR RISK Normal [facility] Comment on above: Performed By: #### V ITAD, IRON #### [facility] [address] [address] [address] Chucho Jesus LDL CALC NORMAL SEE BELOW Normal [facility] Comment on above: Result Comment: <100 mg/dl OPTIMAL 100 - 129 mg/dl NEAR OR ABOVE OPTIMAL 130 - 159 mg/dl BORDERLINE HIGH 160 - 189 mg/dl HIGH >190 mg/dl VERY HIGH Performed By: #### V AMAURY, IRON #### [facility] [address] [address] [address] Chucho Jesus Triglyceride [Mass/Vol] 62 mg/dL Normal <=150 [facility] Comment on above: Performed By: #### V AMAURY, IRON #### [facility] [address] [address] [address] Chucho Jesus VLDL CALC 12.4 mg/dL Normal [facility] Comment on above: Performed By: #### V AMAURY, IRON #### [facility] [address] [place] [address] Dr. Chucho Jesus PROF 14(COMP METB)on 022 Albumin [Mass/Vol] 3.7 g/dL Normal 3.4-5.0 [facility] Comment on above: Performed By: #### T 7, TSH, LIPID, CMP #### [facility] [address] [place] [address] Dr. Chucho Jesus Albumin/Globulin [Mass ratio] 0.9 {ratio} Normal [facility] Comment on above: Performed By: #### T 7, TSH, LIPID, CMP #### [facility] [address] [address] [address] Chucho Jesus ALP [Catalytic activity/Vol] 74 U/L Normal 46-116 [facility] Comment on above: Performed By: #### T 7, TSH, LIPID, CMP #### [facility] [address] [address] [address] Chucho Jesus ALT [Catalytic activity/Vol] 16 U/L Normal 14-59 [facility] Comment on above: Performed By: #### T 7, TSH, LIPID, CMP #### [facility] [address] [address] [address] Chucho Jesus Anion gap [Moles/Vol] 12.3 mmol/L Normal [facility] Comment on above: Performed By: #### T 7, TSH, LIPID, CMP #### [facility] [address] [address] [address] Chucho Jesus AST [Catalytic activity/Vol] 13 U/L Critically low 15-37 [facility] Comment on above: Performed By: #### T 7, TSH, LIPID, CMP #### [facility] [address] [address] [address] Chucho Jesus Bilirubin [Mass/Vol] 0.4 mg/dL Normal 0.2-1.0 [facility] Comment on above: Performed By: #### T 7, TSH, LIPID, CMP #### [facility] [address] [place] [address] Dr. Chucho Jesus Calcium [Mass/Vol] 8.9 mg/dL Normal 8.5-10.1 [facility] Comment on above: Performed By: #### T 7, TSH, LIPID, CMP #### [facility] [address] [place] [address] Dr. Chucho Jesus Chloride [Moles/Vol] 105 mmol/L Normal 98-107 [facility] Comment on above: Performed By: #### T 7, TSH, LIPID, CMP #### [facility] [address] [place] [address] Dr. Chucho Jesus CO2 [Moles/Vol] 26.6 mmol/L Normal 21.0-32.0 [facility] Comment on above: Performed By: #### T 7, TSH, LIPID, CMP #### [facility] [address] [address] [address] Chucho Jesus Creatinine [Mass/Vol] 0.68 mg/dL Normal 0.55-1.02 [facility] Comment on above: Performed By: #### T 7, TSH, LIPID, CMP #### [facility] [address] [place] [address] Dr. Chucho Jesus EGFR-AF BRAZILIAN >60 Normal >=60 [facility] Comment on above: Performed By: #### T 7, TSH, LIPID, CMP #### [facility] [address] [place] [address] Dr. Chucho Jesus EGFR-NON AF BRAZILIAN >60 Normal >=60 [facility] Comment on above: Performed By: #### T 7, TSH, LIPID, CMP #### [facility] [address] [place] [address] Dr. Chucho Jesus Globulin (S) [Mass/Vol] 4.3 g/dL Normal [facility] Comment on above: Performed By: #### T 7, TSH, LIPID, CMP #### [facility] [address] [place] [address] Dr. Chucho Jesus Glucose [Mass/Vol] 87 mg/dL Normal 74-106 [facility] Comment on above: Performed By: #### T 7, TSH, LIPID, CMP #### [facility] [address] [place] [address] Dr. Chucho Jesus Potassium [Moles/Vol] 3.9 mmol/L Normal 3.5-5.1 [facility] Comment on above: Performed By: #### T 7, TSH, LIPID, CMP #### [facility] [address] [place] [address] Dr. Chucho Jesus Protein [Mass/Vol] 8.0 g/dL Normal 6.4-8.2 [facility] Comment on above: Performed By: #### T 7, TSH, LIPID, CMP #### [facility] [address] [place] [address] Dr. Chucho Jesus Sodium [Moles/Vol] 140 mmol/L Normal 136-145 [facility] Comment on above: Performed By: #### T 7, TSH, LIPID, CMP #### [facility] [address] [place] [address] Dr. Chucho Jesus Urea nitrogen [Mass/Vol] 9.0 mg/dL Normal 7.0-18.0 [facility] Comment on above: Performed By: #### T 7, TSH, LIPID, CMP #### [facility] [address] [place] [address] Dr. Chucho Jesus Urea nitrogen/Creatinine [Mass ratio] 13.2 mg/mg Normal [facility] Comment on above: Performed By: #### T 7, TSH, LIPID, CMP #### [facility] [address] [place] [address] Dr. Chucho Jesus TSHon 04-24-2022 TSH 1.127 uIU/mL Normal 0.358-3.740 [facility] Comment on above: Performed By: #### T 7, TSH, LIPID, CMP #### [facility] [address] [place] [address] Dr. Chucho Jesus VITAMIN D 25 OHon 04-24-2022 VIT D 25-OH 35.2 ng/mL Normal [facility] Comment on above: Performed By: #### V ITAD, IRON #### [facility] [address] [place] [address] Dr. Chucho Jesus VIT D RANGES SEE BELOW Normal [facility] Comment on above: Result Comment: <20 ng/mL Vit D deficient 20 - <30 ng/mL Vit D insufficient 30 - 100 ng/mL Vit D sufficient >100 ng/mL Potential Toxicity Performed By: #### V ITAD, IRON #### [facility] [address] [place] [address] Dr. Chucho Jesus HCG ( test) Ql (U)O rdered By: James Churchill on 12-05-2020 Internal Control Pass [facility] Interpretation and review of laboratory results Normal [facility] POC , UrineOrdered By: James Churchill on 12-05-2020 HCG ( test) Ql (U) Negative Negative [facility] CTA CHEST WITH CONTRASTon CTA [...] by:Ady Tran MD03/25/17Edited Result - FINAL Normal [facility] Basic Metabolic Profon 02-19 (cont.) Normal [facility] Comment on above: Result Comment: Aver age GFR for 20-29 years old: 116 mL/min/1.73sq mChronic Kidney Disease: <60 mL/min/1.73sq mKidney failure: <15 mL/min/1.73sq meGFR calculated using average adult body mass. Additional eGFR calculator available at:http://www.WhoGotStuff.[employer]/multiple_crcl_2012.htm Performed By: #### C KELLE ALBARRAN, TROPI ####[address] [place] [address] Anion gap 14 mmol/L Normal 03-22 [facility] Comment on above: Performed By: #### C KELLE ALBARRAN, TROPI ####[address] [place] [address] BUN/CRE Ratio 13 Normal 9-20 [facility] Comment on above: Performed By: #### C DP, BMP, TROPI ####[address] [place] [address] Calcium 9.2 mg/dL Normal 8.6-10.4 [facility] Comment on above: Performed By: #### C DP, BMP, TROPI ####[address] [place] [address] Chloride 105 mmol/L Normal 98-107 [facility] Comment on above: Performed By: #### C DP, BMP, TROPI ####[address] [place] [address] CO2 23 mmol/L Normal 20-31 [facility] Comment on above: Performed By: #### C DP, BMP, TROPI ####[address] [place] [address] Creatinine 0.55 mg/dL Normal 0.50-0.90 [facility] Comment on above: Performed By: #### C DP, BMP, TROPI ####[address] [place] [address] eGFR (non-black) mL/min/{1.73_m2} Normal >60 [facility] Comment on above: Performed By: #### C DP, BMP, TROPI ####[address] [place] [address] Glucose mass conc 96 mg/dL Normal 70-99 [facility] Comment on above: Performed By: #### C DP, BMP, TROPI ####[address] [place] [address] Potassium molar conc 3.6 mmol/L Low 3.7-5.3 [facility] Comment on above: Performed By: #### C DP, BMP, TROPI ####[address] [place] [address] Sodium 142 mmol/L Normal 135-144 [facility] Comment on above: Performed By: #### C DP, BMP, TROPI ####[address] [place] [address] Staging: Normal [facility] Comment on above: Result Comment: Stag e 1: Some kidney damage normal GFRStage 2: Mild kidney damage GFR 60-89Stage 3: Moderate kidney damage GFR 30-59Stage 4: Severe kidney damage GFR 15-29Stage 5: Severe kidney damage GFR <15ESRD - chronic treatment by dialysis or transplantPerformed at [address] [place] [address] Performed By: #### C DP, BMP, TROPI ####[address] [place] [address] Urea nitrogen 7 mg/dL Normal 6-20 [facility] Comment on above: Performed By: #### C DP, BMP, TROPI ####[address] [place] [address] CBC with Diffon 02-19-2017 Abs. Basophil 0.00 k/uL Normal 0.0-0.2 [facility] Comment on above: Result Comment: Perf ormed at [address] [place] [address] Performed By: #### C DP, BMP, TROPI ####[address] [place] [address] Abs.Neutrophil (Seg) 7.10 k/uL Normal 1.8-8.0 [facility] Comment on above: Performed By: #### C DP, BMP, TROPI ####[address] [facility]83 Basophils/100 WBC Auto (Bld) 0 % Normal [facility] Comment on above: Performed By: #### C DP, BMP, TROPI ####[address] [place] [address] Eosinophils 0.30 10*3/uL Normal 0.0-0.4 [facility] Comment on above: Performed By: #### C DP, BMP, TROPI ####[address] , [facility]83 Eosinophils/100 leukocytes 3 % Normal [facility] Comment on above: Performed By: #### C DP, BMP, TROPI ####[address] [place] [address] Erythrocyte distribution width Auto Ratio (RBC) 13.6 % Normal 12.1-15.2 [facility] Comment on above: Performed By: #### C DP, BMP, TROPI ####[address] , [facility]83 Erythrocytes (RBC) 5.03 10*6/uL Normal 4.0-5.2 [facility] Comment on above: Performed By: #### C DP, BMP, TROPI ####[address] [place] [address] Hematocrit (HCT) 40.2 % Normal 36-46 [facility] Comment on above: Performed By: #### C DP, BMP, TROPI ####[address] [place] [address] Hemoglobin mass conc (Bld) 13.2 g/dL Normal 12.0-16.0 [facility] Comment on above: Performed By: #### C DP, BMP, TROPI ####[address] [place] [address] Lymphocytes 2.90 10*3/uL Normal 1.2-5.2 [facility] Comment on above: Performed By: #### C DP, BMP, TROPI ####[address] , [place] [address] Lymphocytes/100 leukocytes 27 % Normal [facility] Comment on above: Performed By: #### C DP, BMP, TROPI ####[address] , [facility]83 MCH 26.2 pg Normal 26-34 [facility] Comment on above: Performed By: #### C DP, BMP, TROPI ####[address] , [facility]83 MCHC mass conc (RBC) 32.8 g/dL Normal 31-37 [facility] Comment on above: Performed By: #### C DP, BMP, TROPI ####[address] [place] [address] MCV 79.9 fL Low 80-100 [facility] Comment on above: Performed By: #### C DP, BMP, TROPI ####[address] [place] [address] Monocytes 0.60 10*3/uL Normal 0.0-1.0 [facility] Comment on above: Performed By: #### C DP, BMP, TROPI ####[address] , [facility]83 Monocytes/100 leukocytes 5 % Normal [facility] Comment on above: Performed By: #### C DP, BMP, TROPI ####[address] [place] [address] Neutrophil (Seg) 65 % Normal [facility] Comment on above: Performed By: #### C DP, BMP, TROPI ####[address] [place] [address] Platelet mean volume (PMV) 9.6 fL Normal 6.0-12.0 [facility] Comment on above: Performed By: #### C DP, BMP, TROPI ####[address] [place] [address] Platelets 278 10*3/uL Normal 140-450 [facility] Comment on above: Performed By: #### C DP, BMP, TROPI ####[address] [place] [address] WBC (Leukocytes) 10.8 10*3/uL Normal 4.5-13.5 [facility] Comment on above: Performed By: #### C DP, BMP, TROPI ####[address] [place] [address] Auto Diff Performed NOT REPORTED Normal [facility] Comment on above: Performed By: #### C DP, BMP, TROPI ####[address] [place] [address] Erythrocyte morphology NOT REPORTED Normal [facility] Comment on above: Performed By: #### C DP, BMP, TROPI ####[address] [place] [address] Platelets NOT REPORTED Normal [facility] Comment on above: Performed By: #### C DP, BMP, TROPI ####[address] [place] [address] WBC Morphology NOT REPORTED Normal [facility] Comment on above: Performed By: #### C DP, BMP, TROPI ####[address] [place] [address] ED Noteon 02-19-2017 HIM IP Note OR Product Operations Associate Normal [facility] ED Provider Noteon 7 HIM IP Note OR Product Operations Associate Normal [facility] Troponinon 02-19-2017 Troponin T.cardiac mass conc ug/L Normal <0.03 [facility] Comment on above: Result Comment: Trop onin T results cannot be compared to Troponin-I results. Performed By: #### C DP, BMP, TROPI ####[address] [place] [address] Troponin I.cardiac mass conc Normal [facility] Comment on above: Result Comment: Refe rence Range: <0.03 Within reference range. 0.03-0.09 Possible myocardial damage.Repeat at appropriate intervals to rule out chronic elevation. >= 0.10 Indicative of myocardial damage.Performed at [address] [place] [address] ([phone] Performed By: #### C DP, BMP, TROPI ####[address] [place] [address] Vital Signs Date Time Vital Sign Value Performing Clinician Facility 07-18-2024 10:02-0500 Body mass index (BMI) [Ratio] 36.91 kg/m2 Berto Luis DO Work Phone: [facility] 07-18-2024 10:02-0500 Body weight 100.61 kg Berto Luis DO Work Phone: [facility] 07-18-2024 10:02-0500 Diastolic blood pressure 70 mm[Hg] Berto Luis DO Work Phone: [facility] 07-18-2024 10:02-0500 Systolic blood pressure 130 mm[Hg] Berto Luis DO Work Phone: [facility] 07-04-2024 12:13-0500 Body mass index (BMI) [Ratio] 35.84 kg/m2 Little LOWRY Work Phone: [facility] 07-04-2024 12:13-0500 Body weight 97.7 kg Little LOWRY Work Phone: [facility] 07-04-2024 12:13-0500 Diastolic blood pressure 64 mm[Hg] Little LOWRY Work Phone: [facility] 07-04-2024 12:13-0500 Systolic blood pressure 104 mm[Hg] Little LOWRY Work Phone: [facility] 06-21-2024 13:31-0500 Body mass index (BMI) [Ratio] 35.61 kg/m2 Little Nelson PA Work Phone: [facility] 06-21-2024 13:31-0500 Body weight 97.07 kg Little Ezra PA Work Phone: [facility] 06-21-2024 13:31-0500 Diastolic blood pressure 72 mm[Hg] Little Ezra PA Work Phone: [facility] 06-21-2024 13:31-0500 Systolic blood pressure 116 mm[Hg] Little Nelson PA Work Phone: [facility] 06-07-2024 13:49-0500 Body mass index (BMI) [Ratio] 34.61 kg/m2 Berto Luis DO Work Phone: [facility] 06-07-2024 13:49-0500 Body weight 94.35 kg Berto Luis DO Work Phone: [facility] 06-07-2024 13:49-0500 Diastolic blood pressure 70 mm[Hg] Berto Luis DO Work Phone: [facility] 06-07-2024 13:49-0500 Systolic blood pressure 120 mm[Hg] Berto Luis DO Work Phone: [facility] 05-24-2024 14:26-0500 Body mass index (BMI) [Ratio] 33.75 kg/m2 Little Nelson PA Work Phone: [facility] 05-24-2024 14:26-0500 Body weight 91.99 kg Little Ezra PA Work Phone: [facility] 05-24-2024 14:26-0500 Diastolic blood pressure 70 mm[Hg] Little Ezra PA Work Phone: [facility] 05-24-2024 14:26-0500 Systolic blood pressure 108 mm[Hg] Little Nelson PA Work Phone: [facility] 05-09-2024 11:44-0500 Body mass index (BMI) [Ratio] 33.28 kg/m2 Berto Luis DO Work Phone: [facility] 05-09-2024 11:44-0500 Body weight 90.72 kg Berto Luis DO Work Phone: [facility] 05-09-2024 11:44-0500 Diastolic blood pressure 64 mm[Hg] Berto Luis DO Work Phone: [facility] 05-09-2024 11:44-0500 Systolic blood pressure 118 mm[Hg] Berto Luis DO Work Phone: [facility] 04-11-2024 10:37-0400 Body mass index (BMI) [Ratio] 31.12 kg/m2 Little Christie PA Work Phone: [facility] 04-11-2024 10:37-0400 Body weight 84.82 kg Little Ezra PA Work Phone: [facility] 04-11-2024 10:37-0400 Diastolic blood pressure 68 mm[Hg] Little Ezra PA Work Phone: [facility] 04-11-2024 10:37-0400 Systolic blood pressure 116 mm[Hg] Little Nelson PA Work Phone: [facility] 03-14-2024 11:44-0400 Body mass index (BMI) [Ratio] 28.62 kg/m2 Berto Luis DO Work Phone: [facility] 03-14-2024 11:44-0400 Body weight 78.02 kg Berto Luis DO Work Phone: [facility] 03-14-2024 11:44-0400 Diastolic blood pressure 74 mm[Hg] Berto Luis DO Work Phone: [facility] 03-14-2024 11:44-0400 Systolic blood pressure 118 mm[Hg] Berto Luis DO Work Phone: [facility] 02-27-2023 14:39-0400 Blood Pressure Location Gary MORRIS [facility] [place] 02-27-2023 14:39-0400 Diastolic blood pressure 66 mm[Hg] Gary MORRIS [facility] [place] 02-27-2023 14:39-0400 Heart rate 70 /min Gary MORRIS [facility] [place] 02-27-2023 14:39-0400 Respiratory rate 16 /min Gary MORRIS [facility] [place] 02-27-2023 14:39-0400 Systolic blood pressure 106 mm[Hg] Gary DANGELOL [facility] [place] 01-08-2022 08:09-0400 Body temperature 98.01 [degF] Wiley Rice DO Work Phone: [facility] 01-08-2022 08:09-0400 Body weight 75.75 kg Wiley Rice DO Work Phone: [facility] 01-08-2022 08:09-0400 Diastolic blood pressure 71 mm[Hg] Wiley Rice DO Work Phone: [facility] 01-08-2022 08:09-0400 Heart rate 98 /min Wiley Rice DO Work Phone: [facility] 01-08-2022 08:09-0400 Systolic blood pressure 112 mm[Hg] Wiley Rice DO Work Phone: [facility] 12-10-2021 14:45-0400 Body height 166.37 cm Bret Long Other [facility] Other 12-10-2021 14:45-0400 Body mass index (BMI) [Ratio] 26.55 kg/m2 Bret Long Other [facility] Other 12-10-2021 14:45-0400 Body weight 73.48 kg Bret Long Other [facility] Other 12-10-2021 14:45-0400 Diastolic blood pressure 72 mm[Hg] Bret Long Other [facility] Other 12-10-2021 14:45-0400 Systolic blood pressure 103 mm[Hg] Bret Long Other [facility] Other 11-27-2021 14:01-0400 Body temperature 98.4 [degF] Wiley Rice DO Work Phone: [facility] 11-27-2021 14:01-0400 Body weight 74.84 kg Wiley Rice DO Work Phone: [facility] 11-27-2021 14:01-0400 Diastolic blood pressure 64 mm[Hg] Wiley Rice DO Work Phone: [facility] 11-27-2021 14:01-0400 Heart rate 98 /min Wiley Rice DO Work Phone: [place] [facility] 11-27-2021 14:01-0400 Systolic blood pressure 121 mm[Hg] Wiley Rice DO Work Phone: [facility] 12-05-2020 19:26-0400 Heart rate 106 /min James Breece PA-C Work Phone: [facility] 12-05-2020 19:25-0400 Body temperature 98.29 [degF] James Breece PA-C Work Phone: [facility] 12-05-2020 19:25-0400 Body weight 97.98 kg James Breece PA-C Work Phone: [facility] 12-05-2020 19:25-0400 Diastolic blood pressure 86 mm[Hg] James Breece PA-C Work Phone: [facility] 12-05-2020 19:25-0400 Respiratory rate 16 /min James Breece PA-C Work Phone: [facility] 12-05-2020 19:25-0400 SaO2% (BldA) [Mass fraction] 97 % James Churchill PA-C Work Phone: [facility] 12-05-2020 19:25-0400 Systolic blood pressure 126 mm[Hg] James Churchill PA-C Work Phone: [facility] Encounters Encounter Date Encounter Type [...] Third trimester ; H/O cold sores Start: 07-18-2024 End: 07-18-2024 ambulatory BERTO LUIS Not Available Start: 07-04-2024 End: 07-04-2024 Bamboo flowsheet Little LOWRY Work Phone: [facility] Start: 07-04-2024 End: 07-04-2024 Bamboo flowsheet Little LOWRY Work Phone: [facility] Start: 07-04-2024 End: 07-04-2024 Clinisync Result Encounter Berto Luis DO Work Phone: [facility] External Department Unsolicited Start: 07-04-2024 End: [...] Available Start: 04-11-2024 End: 04-11-2024 Bamboo flowsheet iLttle LOWRY Work Phone: [facility] Start: [...] encounter procedure Gary Howell ALEXANDRA [facility] [place] Start: 02-23-2023 ambulatory Alexandr Bourgeois Facility:[facility] Start: 02-05-2023 ambulatory Gary MORRIS Facility:[facility] [...] BELTRAN . Facility:[facility] Start: 02-18-2022 ambulatory WILEY Huffman~[id number] RICE RICE [facility] Start: 02-12-2022 ambulatory WILEY Huffman[facility][id number] [facility] Start: 02-12-2022 End: 02-12-2022 Telemedicine consultation with patient Wiley Osorio DO Work Phone: [facility] Comment on above: Anxiety (Primary Dx) Start: 01-19-2022 Refill Luis Warren O Work Phone: [facility] Start: 01-19-2022 Refill Luis Warren O Work Phone: [facility] Start: 01-08-2022 End: 01-08-2022 ambulatory WILEY Huffman~[id number] YVONNE OSORIO [facility] Start: 01-08-2022 End: 01-08-2022 Office outpatient visit 25 minutes Wiley Huffman Rice DO Work Phone: [facility] Comment on above: Anxiety (Primary Dx) ; Hypotension, unspecified hypotension type Start: 01-08-2022 End: 01-08-2022 Patient encounter procedure Wiley Huffman Rice DO Work Phone: [facility] Start: 12-11-2021 End: 12-11-2021 ambulatory WILEY Huffman~[id number] [facility] Start: 12-10-2021 End: 12-10-2021 ambulatory Bret Long Other [facility] Other Start: 12-10-2021 Office outpatient ne w 45 minutes Bret Long [facility] Gastro[facility]ology Start: 11-27-2021 End: 11-27-2021 ambulatory WILEY Huffman~[id number] YVONNE OSORIO [facility] Start: 11-27-2021 End: 11-27-2021 Office outpatient new 30 minutes Wiley Huffman Rice DO Work Phone: [facility] Comment on above: Anxiety (Primary Dx) Start: 11-27-2021 End: 11-27-2021 Patient encounter procedure Wiley Huffman Rice DO Work Phone: [facility] Start: 11-25-2021 Telephone encounter Dana Kinsey [facility] Start: 12-05-2020 End: 12-05-2020 ambulatory PHYSICIAN NO [facility] Start: 12-05-2020 End: 12-05-2020 Office outpatient new 20 minutes James Churchill PA-C Work Phone: [facility] Comment on above: Vaginal sore (Primar y Dx) Start: 02-19-2017 End: 02-19-2017 Emergency department patient visit KIM Alfonso ENA [facility] Procedures Date Procedure Procedure Detail [...] S[place] Start: 02-19-2017 BASIC METABOLIC PANEL Nathanael DAUGHERTY ENA Start: 02-19-2017 CBC WITH AUTO DIFFERENTIAL KIM ENA Start: 02-19-2017 TROPONIN KIM BENITO Dante Start: 02-19-2017 EKG 12-LEAD KIM THONG Howell None (qualifier value) Henrik MORRIS Plan of Treatment Date Care Activity Detail Author Start: 07-27-2024 End: 07-27-2024 Patient encounter procedure 07/27/2024 8:50 AM EST Routine [facility] [address] [place] [phone] Little Christie, PA [address] [place], [place] [id number] [facility] Start: 07-18-2024 End: 07-18-2025 [...] Routine [facility] [address] [place] [address] Little Christie PA [address] [place], [place] [id number] [facility] Start: 06-21-2024 End: 06-21-2024 Patient encounter procedure 06/21/2024 1:20 PM EST Routine [facility] [address] [place] [phone] Little Christie, PA [address] [place] [address] [facility] Start: 06-07-2024 End: 06-07-2024 Patient encounter procedure 06/07/2024 1:30 PM EST Routine [facility] [address] [place] [phone] Berto Smith DO [address] [facility] [address] [place], [place] [id number] [facility] Start: 05-24-2024 End: 05-24-2024 Patient encounter procedure 05/24/2024 2:10 PM EST Routine [facility] [address] [place] [phone] Little Christie, PA [address] [place], [place] [id number] Arrived [facility] Comment on above: Arrived Start: 05-23-2024 End: 05-23-2024 Patient encounter procedure 05/23/2024 1:50 PM EST Routine [facility] [address] [place] [phone] Little Christie, PA [address] [place] [address] [facility] Start: 05-09-2024 End: 05-09-2025 [...] mellitus screening Expected: 04/11/2024 (Approximate), Expires: 04/11/2025 [facility] Comment on above: Expected: 04/11/2024 (Approximate), Expires: 04/11/2025 Start: 04-11-2024 End: 04-11-2024 Patient encounter procedure [facility] Comment on above: Arrived Start: 03-14-2024 End: 03-14-2024 Patient encounter procedure 03/14/2024 11:20 AM EDT Routine [facility] [address] [place] [address] Berto Smith, DO [address] [facility] [place] [address] Arrived [facility] Comment on above: Arrived Start: 03-06-2024 Influenza vaccination Influenza Vacc ine (#1) [facility] Start: 11-27-2022 Adolescent depressio n screening assessment Depression Screening [facility] Start: 03-06-2022 Influenza vaccination T [facility] Start: 02-07-2022 End: 02-07-2022 Patient encounter procedure 02/07/2022 Office Visit Family Medicine Wiley Osorio, DO [address] [facility] [place] [address] [facility] Start: 12-19-2021 End: 12-19-2021 Patient encounter procedure 12/19/2021 Office Visit Family Medicine Wiley OsorioDO [address] [place] [phone] [facility] Start: 12-07-2021 COVID-19 Vaccine (3 - Booster for Moderna series) COVID-19 Vaccine (3 - Booster for Moderna series) [facility] Start: 11-27-2021 End: 11-27-2021 Patient encounter procedure 11/27/2021 Office Visit Family Medicine Yvonne Wiley DO Nathanael [address] [place] [phone] [facility] Start: 11-24-2021 Adolescent depressio n screening assessment Depression Screening [facility] Start: 11-24-2021 Hepatitis C screening Hepatitis C Sc [facility] Start: 11-24-2021 HIV screening HIV Screening [facility] Start: 11-24-2021 Social Influencers o f Health Screening Social Influencers of Health Screening [facility] Start: 03-06-2021 Influenza vaccination Sequenti al Influenza Vaccine (Season Ended) [facility] Start: 2017 Screening for malign ant neoplasm of cervix Cervical Cancer Screening: Pap Smear [facility] Start: 2015 DTaP,Tdap,and Td Vaccines (1 - Tdap) DTaP,Tdap,and Td Vaccines (1 - Tdap) [facility] Start: 2014 Hepatitis C [facility] Start: 2011 HIV screening HIV Screening [facility] Start: 2008 COVID-19 Vaccine (1) COVID-19 Vaccin e (1) [facility] Start: 2008 Depression screening using PHQ-9 (Patient Health Questionnaire 9) score Depression Screening (PHQ9) [facility] Start: 2007 HPV Vaccines (1 - 2- dose series) HPV Vaccines (1 - 2-dose series) [facility] Start: 2007 Vaccination for april n papillomavirus HPV Vaccines (1 - 2-dose series) [facility] Start: 2001 COVID-19 Vaccine (1) COVID-19 Vaccin e (1) [facility] Start: 1999 History and physical examination, annual for health maintenance Wellness Visit [facility] Start: 1996 Screening for Chlamy marilee trachomatis Chlamydia Screening [facility] Start: 1996 Screening for malign ant neoplasm of cervix Pap Smear [facility] Start: 1996 Tetanus vaccination Tetanus: Every 1 0yrs [facility] Chlamydia trachomati s rRNA assay Chlamydia/GC/Trichomona s Amplified RNA Microbiology Routine Vaginal sore Ordered: 12/05/2020 [facility] Comment on above: Ordered: 12/05/2020 HSV by PCR Superfici al Site HSV by PCR Superficial Site Lab Routine Vaginal sore Ordered: 12/05/2020 [facility] Comment on above: Ordered: 12/05/2020 Neisseria gonorrhoea e nucleic acid detection Chlamydia/Gonorrhoeae Amplified RNA Microbiology Routine Vaginal sore Ordered: 12/05/2020 [facility] Comment on above: Ordered: 12/05/2020 Trichomonas vaginali s Amplified RNA Trichomonas vaginalis Amplified RNA Microbiology Routine Vaginal sore Ordered: 12/05/2020 [facility] Comment on above: Ordered: 12/05/2020 Immunizations Immunization Date Immunization [facility] SARS-CoV-2 (COVID-19 ) mRNA-1273 vaccine Gary MORRIS [facility] 06-08-2021 SARS-CoV-2 (COVID-19 ) mRNA-1273 vaccine Gary MORRIS [facility] 04-10-2011 influenza virus vaccine, unspecified formulation Berto Smith DO Work Phone: [facility] Healthcare Payers Date Payer Category Payer Private Health Insurance [facility] MEDICAID [id number] 2021 Medicaid [id number] 2020 Medicaid [id number] 2016 Unknown [id number] 2013 Unknown [id number] 1996 Unknown [id number] 1996 Unknown [id number] 2.16.840.1.635342.3.579.2. 1143 1996 Unknown [id number] 2.16.840.1.817098.3.579.2. 1143 1996 Unknown [id number] 2.16.840.1.339672.3.579.2. 1143 1996 Unknown [id number] 2.16.840.1.424896.3.579.2. 1143 1996 Unknown [id number] 2.16.840.1.680089.3.579.2. 1143 1996 Unknown [id number] 2.16.840.1.302579.3.579.2. 593 1996 Unknown [id number] 2.16.840.1.910796.3.579.2. 593 1996 Unknown [id number] 2.16.840.1.424691.3.579.2. 593 1996 Unknown [id number] 2.16.840.1.314327.3.579.2. 593 1996 Unknown [id number] 2.16.840.1.489300.3.579.2. 593 1996 Unknown [id number] 2.16.840.1.499388.3.579.2. 593 1996 Unknown [id number] 2.16.840.1.984489.3.579.2. 593 1996 Unknown [id number] 2.16.840.1.195130.3.579.2. 727 1996 Unknown [id number] 2.16.840.1.786832.3.579.2. 1286 1996 Unknown [id number] 2.16.840.1.119442.3.579.2. 1286 1996 Unknown [id number] 2.16.840.1.751349.3.579.2. 1258 1996 Unknown [id number] 2.16.840.1.069647.3.579.2. 1258 1996 Unknown [id number] 2.16.840.1.089692.3.579.2. 1258 1996 Unknown [id number] 2.16.840.1.474781.3.579.2. 1258 1996 Unknown [id number] 2.16.840.1.515841.3.579.2. 1258 1996 Unknown [id number] 2.16.840.1.189070.3.579.2. 1258 1996 Unknown [id number] 2.16.840.1.778520.3.579.2. 125 1996 Unknown [id number] 2.16.840.1.091470.3.579.2. 1258 1996 Unknown [id number] 2.16.840.1.143455.3.579.2. 1258 1996 Unknown [id number] 2.16.840.1.972853.3.579.2. 1258 1996 Unknown [id number] 2.16.840.1.752509.3.579.2. 1258 1996 Unknown [id number] 2.16.840.1.962214.3.579.2. 1259 1960 Unknown [id number] 2.16.840.1.799888.3.579.2. 727 1959 Medicaid [id number] 1959 Self-pay 1959 Unknown [id number] 1959 Unknown [id number] 1959 Unknown [id number] Unknown [id number] 2.16.840.1.758434.3.579.2. 531 Social History Date Type Detail Facility Start: 12-05-2020 End: 02-27-2023 Tobacco smoking status NDIS Never smoker [facility] Start: 12-05-2020 End: 11-27-2021 Tobacco use and exposure Never used [facility] Start: 12-05-2020 Alcohol intake Current drinke r of alcohol (finding) [facility] Start: 12-05-2020 End: 11-27-2021 History SDOH Alcohol Frequency 1 [facility] Start: 12-05-2020 Alcohol Comment occ [facility] Start: 1995 [facility] Start: 11-17-2021 End: 02-12-2022 Exposure to SARS-CoV-2 (event) Not sure [facility] Tobacco smoking stat [facility] Tobacco smoking consumption unknown [facility] Start: 11-27-2021 End: 07-18-2024 Alcohol intake Lifetime non-drinker (finding) [facility] Start: 1995 Sex Assigned At Female T [facility] Start: 12-17-2023 Sex Assigned At F [facility] Tobacco smoking status Never [facility] Start: 03-28-2023 [facility] History of tobacco use [...] Kang Clinical Notes 12-05-2020 to 07-18-2024 Shalonda Infantejay, GAUTAM - 07/18/2024 10:00 AM ESSENCE Mahan - 07/04/2024 11:50 AM ESSENCE Mahan - 06/21/2024 1:20 PM Zohreh Bradley, GAUTAM - 06/07/2024 1:20 PM ESSENCE Mahan - [...] nursing note reviewed. Exam conducted with a insurance verification clerk present. Vitals: Estimated body mass index is [...] Berto Smith DO documented in this encounter [facility] 07-04-2024 History of Present illness Narrative [...] nursing note reviewed. Exam conducted with a insurance verification clerk present. Vitals: Estimated body mass index is [...] of: ESSENCE Haley documented in this encounter [facility] 06-21-2024 History of Present illness Narrative [...] nursing note reviewed. Exam conducted with a insurance verification clerk present. Vitals: Estimated body mass index is [...] Little Christie PA-C documented in this encounter [facility] 06-07-2024 History of Present illness Narrative [...] nursing note reviewed. Exam conducted with a insurance verification clerk present. Vitals: Estimated body mass index is [...] Berto Smith DO documented in this encounter [facility] 05-24-2024 History of Present illness Narrative [...] of: ESSENCE Haley documented in this encounter [facility] 05-09-2024 History of Present illness Narrative [...] nursing note reviewed. Exam conducted with a insurance verification clerk present. Vitals: Estimated body mass index is [...] time. Order was given on 04/11/2024. Per M recommendations patient is to start growth scans every 4 weeks, NST/BILL weekly until 32 weeks, then NST bi-weekly. Orders Placed This Encounter Procedures POCT urinalysis dipstick manually resulted Follow Up: Patient is to return to office in 2 week for routine OB appointment. Documented by Lucrecia Hein MA on behalf of: Berto Smith DO documented in this encounter [facility] 04-11-2024 History of Present illness Narrative [...] of: ESSENCE Haley documented in this encounter [facility] 03-14-2024 History of Present illness Narrative [...] nursing note reviewed. Exam conducted with a insurance verification clerk present. Vitals: Estimated body mass index is [...] Berto Smith DO documented in this encounter [facility] 02-27-2023 Note Chief Complaint consultation for [...] with excisional biopsy under local anesthesia at [facility]; call with problems/questions. Follow-up No qualifying [...] Recorded SARS-CoV-2 (COVID-19) mRNA-1273 vaccine 06/08/2021 Recorded [facility] Comment on above: Result Comment: Elec tronically Signed By: ALEXANDRA RANGEL, Gary Jackson\Date and Time Signed: 02/27/23 16:20 EDT 02-12-2022 History of Present illness Narrative Attempted to complete Mchart and patient was not online despite speaking to NM prior to appointment. Attempted to call on phone 3 separate times before noon with no answer. May reschedule at later date. documented in this encounter [facility] 01-08-2022 History of Present illness Narrative [...] due to buspirone. documented in this encounter [facility] 12-10-2021 Evaluation note Encounter Date Diagnosis Assessment Notes Dec, Irritable bowel syndrome with diarrhea (ICD-10 - K58.0) Continue medications without change Dec, Epigastric pain (ICD-10 - R10.13) Dec, Chronic nausea (ICD-10 - R11.0) Dec, Family history of carcinoma in situ of anal canal (ICD-10 - Z84.89) Dec, Other Continue Zofran prn Pt to call if symptoms worsen [facility] Other 05-25-2022 History of Present illness Narrative* Wiley Osorio DO - 11/27/2021 2:00 PM EDT Subjective Patient ID: Leslie Ford is a 26 y.o. female. Chief Complaint Patient presents with [facility] 26 y.o. female [facility]. History of anxiety and depression. Has [...] it ( July 2017) [id number] History of Present illness Narrative* Dana Rosario [...] like me to do? documented [id number] History of Present illness Narrative* James Churchill PA-C - 12/05/2020 8:22 PM EDT Images from the original note were not included. Patient Name: [facility] Location: Leslie Ford [address] [place], [place] [id number] Date Of : Date Of Visit: 1995 12/05/2020 MRN# Provider: [id number] James Churchill PA-C Chief Complaint Patient presents [...] urine from irritatingthe sores. ? Take an icha-yug-wdblaom pain medicine, such as acetaminophen (Tylenol), ibuprofen [...] Log into your personal health record on [email or web address] and enter E579 in the Education box to learn more about Genital Herpes: Care Instructions. Current as of: August 31, 2019 Content Version: 12.8 [employer]. Care instructions adapted under license by your healthcare professional. If you have questions about a medical condition or this instruction, always ask your healthcare professional. [employer] disclaims any warranty or liability for your use of this information. documented in this [id number] Instructions* Patient Instructions* James Churchill PA-C - [...] urine from irritatingthe sores. ? Take an gdkj-uej-fmpbbky pain medicine, such as acetaminophen (Tylenol), ibuprofen [...] Log into your personal health record on [email or web address] and enter E579 in the Education box to learn more about Genital Herpes: Care Instructions. Current as of: August 31, 2019 Content Version: 12.8 Yammer. Care instructions adapted under license by your healthcare professional. If you have questions about a medical condition or this instruction, always ask your healthcare professional. [employer] disclaims any warranty or liability for your use of this information. [facility] No data available for this section General Surgery [facility] Evaluation note* Diagnosis Vaginal sore- Primary [facility] Diagnosis Anxiety- Primary Anxiety state, unspecified [facility] Diagnosis Anxiety- Primary Anxiety state, unspecified Hypotension, unspecified hypotension type [facility] Diagnosis Anxiety- Primary Anxiety state, unspecified [facility]* Diagnosis Second trimester state, incidental 22 weeks gestation of Diabetes mellitus screening Screening for diabetes mellitus documented in this encounter [facility]* Diagnosis Second trimester state, incidental 26 weeks gestation of History of miscarriage Personal history of other genital system and obstetric disorders documented in this encounter [facility] note* Diagnosis 31 weeks gestation of Third trimester state, incidental Gastroesophageal reflux in documented in this encounter [facility] note* Diagnosis Third trimester state, incidental 33 weeks gestation of documented in this encounter [facility] note* Diagnosis Second trimester state, incidental documented in this encounter [facility] note* Diagnosis Third trimester state, incidental 29 weeks gestation of Upper respiratory tract infection, unspecified type documented in this encounter [facility] Healthcare[facility] note* Diagnosis Third trimester state, incidental 34 weeks gestation of [facility] Diagnosis 36 weeks gestation of Third trimester state, incidental H/O cold sores [facility] Narrative - Reported* Type Description Date Medical History IBS [facility] Other Hospital Discharge instructions No data available [...] FoundDocuments on File Type Date Recorded 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 Expl 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 Advance Directives and Living Will Documents on File Type Date Recorded 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 Puller Expl 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 Power of Can Intake Worker Additional Source Comments INFORMATION SOURCE (unrecogn ized section and content) DATE CREATED AUTHOR 12/30/2017 [facility] DATE CREATED AUTHOR AUTHOR'S ORGANIZ ATION 12/06/2020 [facility] DATE CREATED AUTHOR AUTHOR'S ORGANIZ ATION 02/16/2022 [facility] DATE CREATED AUTHOR AUTHOR'S ORGANIZ ATION 02/27/2022 [facility] DATE CREATED AUTHOR AUTHOR'S ORGANIZ ATION 11/14/2022 [facility] DATE CREATED AUTHOR AUTHOR'S ORGANIZ ATION 03/02/2023 [facility] DATE CREATED AUTHOR AUTHOR'S ORGANIZ ATION 07/05/2023 [facility] DATE CREATED AUTHOR AUTHOR'S ORGANIZ ATION 03/25/[address] [facility] DATE CREATED AUTHOR AUTHOR'S ORGANIZ ATION 07/21/2024 [facility] EPIC Reason for Visit [...] Care Teams (unrecognized sec tion and content) Call Worker Person Relationship Specialty Start Date End Date YvonneLalitoWileyjuana Huffman DO [address] [place] [phone] PCP - General Family Medicine 11/27/21 Call Worker Person Relationship Specialty Start Date End Date Wiley Osorio DO [address] [place] [phone] PCP - General Family Medicine 11/27/21 Call Worker Person Relationship Specialty Start Date End Date Yvonne Wileyjuana Huffman DO [address] [facility] [address] [place] [phone] PCP - General Family Medicine 11/27/21 Call Worker Person Relationship Specialty Start Date End Date Homar Beltran MD [address] [place] [phone] PCP - General Family Medicine 01/20/23 Call Worker Person Relationship Specialty Start Date End Date Homar Beltran MD [address] [place] [address] PCP - General Family Medicine 01/20/23 Call Worker Person Relationship Specialty Start Date End Date Homar Beltran MD [address] [place] [facility] [address] PCP - General Family Medicine 01/20/23 Call Worker Person Relationship Specialty Start Date End Date Homar Beltran MD [address] [place] [facility] [address] PCP - General Family Medicine 01/20/23 Call Worker Person Relationship Specialty Start Date End Date Homar Beltran MD [address] [place] [facility] [address] PCP - General Family Medicine 01/20/23 Call Worker Person Relationship Specialty Start Date End Date Homar Beltran MD [address] [place] [facility] [address] PCP - General Family Medicine 01/20/23 Call Worker Person Relationship Specialty Start Date End Date Homar Beltran MD [address] [place] [facility] [address] PCP - General Family Medicine 01/20/23 Call Worker Person Relationship Specialty Start Date End Date Homar Beltran MD [address] [place] [facility] [address] PCP - General Family Medicine 01/20/23 Call Worker Person Relationship Specialty Start Date End Date Homar Beltran MD [address] [place] [facility] [address] PCP - General Family Medicine 01/20/23 Call Worker Person Relationship Specialty Start Date End Date Homar Beltran MD [address] [place] [address] PCP - General Family [facility] 01/20/23 Call Worker Person Relationship Specialty Start Date End Date Homar Beltran MD [address] [place] [address] PCP - General Family Medicine 01/20/23 FOR [...] BE BASED ON THE PRIMARY CLINICAL RECORDS. [facility] [employer] [facility]. provides no warranty or guarantee of the accuracy or completeness of information in this document.
[2024-07-22 14:29] VITALS: BP 109/66; PULSE 99
== END 2024-07-22 14:59 | disposition home or self-care (01) ==
LOC: FBCO 00:31 → FBC 14:16
PROVIDERS: PCP Family Medicine; Visit Provider Obstetrics & Gynecology
DX: O26.893 Other specified pregnancy related conditions, third trimester (principal); Z87.59 Personal history of other complications of pregnancy, childbirth and the puerperium; Z3A.37 37 weeks gestation of pregnancy
CPT/HCPCS: 76815; 76818

== ENCOUNTER 2024-07-28 01:26 | Outpatient (OUT) | payer OTHER, SELFPAY ==
--- NOTE | 2024-07-28 | US_ITS ---
[address] [address] Patient Name: KISHAN RAMSEY MRN: [id number] date: 1995 Sex: F Assigned Patient Location: [facility] Current Patient Location: [facility] Accession/Order Number: [id number] Exam Date: 07/28/2024 09:03 Report Date: 07/28/2024 09:34 At the request of: KATELYN DUVALL Procedure: US OB BPP w non-stress EXAMINATION: US OB BPP w non-stress, US OB amniotic fluid vol HISTORY: History of miscarriage COMPARISON: No relevant comparison available. FINDINGS: EXAMINATION: US OB BPP w non-stress, US OB amniotic fluid vol HISTORY: History of miscarriage COMPARISON: No relevant comparison available. FINDINGS: BREATHING MOVEMENTS: 2/2 GROSS BODY MOVEMENTS: 2/2 TONE: 2/2 QUALITATIVE AMNIOTIC FLUID VOL.: 2/2 HEART RATE: Not obtained AMNIOTIC FLUID VOLUME: 18.4 cm. (Between 5th and 95th percentile.) position: Cephalic US/US OB BPP w non-stress IMPRESSION: Total biophysical profile score 8/8. Amniotic fluid volume 18.4 cm, normal Electronically authenticated by: AKUA MELENDEZ Date: 07/28/2024 09:34
--- NOTE | 2024-07-28 | US_ITS ---
[address] [address] Patient Name: KISHAN RAMSEY MRN: [id number] date: 1995 Sex: F Assigned Patient Location: [facility] [place] Current Patient Location: [facility] [place] Accession/Order Number: [id number] Exam Date: 07/28/2024 09:03 Report Date: 07/28/2024 09:34 At the request of: KATELYN UDVALL Procedure: US OB amniotic fluid vol EXAMINATION: US OB BPP w non-stress, US OB amniotic fluid vol HISTORY: History of miscarriage COMPARISON: No relevant comparison available. FINDINGS: EXAMINATION: US OB BPP w non-stress, US OB amniotic fluid vol HISTORY: History of miscarriage COMPARISON: No relevant comparison available. FINDINGS: BREATHING MOVEMENTS: 2/2 GROSS BODY MOVEMENTS: 2/2 TONE: 2/2 QUALITATIVE AMNIOTIC FLUID VOL.: 2/2 HEART RATE: Not obtained AMNIOTIC FLUID VOLUME: 18.4 cm. (Between 5th and 95th percentile.) position: Cephalic US/US OB amniotic fluid vol IMPRESSION: Total biophysical profile score 8/8. Amniotic fluid volume 18.4 cm, normal Electronically authenticated by: AKUA MELENDEZ Date: 07/28/2024 09:34
--- OUTSIDE RECORDS SUMMARY | 2024-07-28 01:30 | XMS_ITS | CCD ---
Author Organization [facility] Care Team Providers Care Operations Mgr Name Role Phone KIM SUTHERLAND Unavailable Unavailable WILLY CONKLIN Unavailable Unavailable HOMAR BELTRAN Unavailable Unavailable HOMAR BELTRAN Unavailable Unavailable No, Physician Primary Care Provider Unavailsuman e FINN, PHYSICIAN Primary Care Unavailable JAMES ALCAZAR Attending Unavailable Unavailable Primary Care Provider Unavailsuman e Wiley Osorio DO Primary Care Provider [phone] Bret Long Unavailable RICE RICE, WILEY WILEY M~[id number] Attending Unavailable RICE RICE, WILEY WILEY M~[id number] Primary Ca re Unavailable RICE RICE, WLIEY WILEY M~[id number] Attending Unavailable RICE RICE, WILEY WILEY M~[id number] Primary Ca re Unavailable RICE RICE, WILEY WILEY M~[id number] Attending Unavailable RICE RICE, WILEY WILEY M~[id number] Primary Ca re Unavailable RICE RICE, WILEY WILEY M~[id number] Attending Unavailable RICE RICE, WILEY WILEY M~[id number] Primary Ca re Unavailable RICE RICE, WILEY WILEY M~[id number] Referring Unavailable RICE RICE, WILEY WILEY M~[id number] Primary Ca re Unavailable ITA REYES Admitting Unavailable Shaina Campos Consulting Unavailable ITA REYES Attending Unavailable HOY ., DR GRAF Primary Care Unavailable ITA REYES Consulting Unavailable HOY ., DR GRFA Primary Care Unavailable HOY ., DR GRAF [...] Primary Care Unavailable HOY ., DR GARF Consulting Unavailable HOY ., DR GRAF Admitting [...] Unavailable Homar Beltran MD Primary Care Provider [phone] EZRA, LITTLE Attending Unavailable LUIS, BERTO [...] Medication Allergies] Propensity to adverse reactions (disorder) [facility] Repository Medications Current Medications [...] 3 06/07/2024 10/05/2024 Active ondansetron 4 mg disintegrating oral tablet (20 sources) Serotonin-3 Receptor Antagonist Start: 07-21-2024 take 1 tablet by mouth every six hours as needed for nausea and vomiting and nausea and nausea ondansetron ODT (Zofran-ODT) 4 MG disintegrating tablet Indications: Nausea Take 1 tablet (4 mg) by mouth every 6 (six) hours if needed for nausea or vomiting for up to 30 doses 30 tablet 2 07/21/2024 Active Start: 02-27-2023 Zofran 4 mg Ta b Refills(s) 0 Start Date: 02/27/23 Status: Ordered [...] 03/09/2022 Active valACYclovir 500 mg oral tablet (7 sources) Herpesvirus Nucleoside Analog DNA Polymerase Inhibitor, [...] sources) Anxiety; Translations: [Anxiety disorder, unspecified] Onset: Chronic Deficiency and other anemia (1 source) [...] Translations: [20 weeks gestation of ] Onset: Episodic Residual codes; unclassified (2 sources) Gestation [...] of ] 05-24-2024 Episodic Residual codes; unclassified (12 sources) Gestation period, 34 weeks; Translations: [34 weeks gestation of ] Onset: 4 07-04-2024 Episodic Residual codes; unclassified (2 sources) Gestation period, 36 weeks; Translations: [36 weeks gestation of ] 07-18-2024 Episodic Residual codes; unclassified (2 sources) Gestation period, 38 weeks; Translations: [38 weeks gestation of ] 07-27-2024 Episodic Spondylosis; intervertebral disc disorders; other back [...] Name Value Interpretation Reference Range Facility ALL MISCELLANEOUS TESTon MISCELLANEOUS TEST COMMENT . [facility] Comment on above: Test Ordered: [id number] Strep Gp B Culture+Rflx Strep Gp B Culture+Rflx Negative CB Reference Range: Negative Centers for Disease Control and Prevention (CDC) and [place] [employer]nec[employer] (ACOG) guidelines for prevention of group B streptococcal (GBS) disease specify co-collection of a vaginal and rectal swab specimen to maximize sensitivity of GBS detection. Per the CDC and ACOG, swabbing both the lower vagina and rectum substantially increases the yield of detection compared with sampling the vagina alone. Penicillin G, ampicillin, or cefazolin are indicated for intrapartum prophylaxis of GBS colonization. Reflex susceptibility testing should be performed prior to use of clindamycin only on GBS isolates from penicillin- allergic women who are considered a high risk for anaphylaxis. Treatment with vancomycin without additional testing is warranted if resistance to clindamycin is noted. Performed at: [facility] [id number] Front Office Medical Assistant: Agustín Hernandez PhD, Phone: [phone] GROUP B STREP [id number] Group B Streptococcus Colonization Detection Culture With Re [facility] Urinalysis macro (dipstick) panel (U)on 07-18-2024 Bilirubin, UA Negative Negative - 4(70) +++ mg/dL [facility] Blood, UA Negative Negative - 50 Angel Luis/mcL [facility] Clarity, UA Clear [facility] Color, UA Miryam [facility] Glucose, UA Negative Negative - 2000(110) ++++ mg/dL [facility] Interpretation and review of laboratory results Abnormal [facility] Ketones, UA Positive Negative - 160(16) ++++ mg/dL [facility] Comment on above: 15 Leukocytes, UA Negative Negative - 500+++ Drew/mcL [facility] Nitrite, UA Negative Negative - Positive [facility] pH, UA 7 5 - 9 [facility] Protein, UA Positive Negative - 2000(20) ++++ mg/dL [facility] Comment on above: 30 Spec Grav, UA 1.025 1 - 1.03 [facility] Urobilinogen, UA 0.2 0.2 - 12 mg/dL [facility] ALL CBC WITH AUTO DIFFon BASOPHILS ABSOLUTE AUTO 0.1 [facility] Basophils/100 WBC (Bld) 0.5 % 0.2 - 2.0 % [facility] Eosinophils/100 WBC (Bld) 1.2 % 0.9 - 7.0 % [facility] Erythrocyte distribution width (RBC) [Ratio] 13.3 % 11.0 - 15.0 % [facility] Hematocrit (Bld) [Volume fraction] 34.6 % Low 36.0 - 48.0 % [facility] Hemoglobin (Bld) [Mass/Vol] 11.1 g/dL Low 12.0 - 16.0 g/dL [facility] IMMATURE GRANULOCYTES ABS AUTO 0.22 High [facility] Immature granulocytes/100 WBC (Bld) 1.3 % High 0.0 - 0.5 % [facility] Interpretation and review of laboratory results Abnormal [facility] LYMPHOCYTES ABSOLUTE AUTO 3 [facility] Lymphocytes/100 WBC (Bld) 18.2 % Low 20.5 - 60.0 % [facility] MCH (RBC) [Entitic mass] 26.1 pg Low 26.7 - 34.0 pg [facility] MCHC (RBC) [Mass/Vol] 32.1 g/dL 29.9 - 35.2 g/dL [facility] MCV (RBC) [Entitic vol] 81.4 fL 81.0 - 99.0 fL [facility] MONOCYTES ABSOLUTE AUTO 1.3 High [facility] Monocytes/100 WBC (Bld) 7.7 % 1.7 - 12.0 % [facility] NEUTROPHILS ABSOLUTE AUTO 11.6 High [facility] Neutrophils/100 WBC (Bld) 71.1 % 43.0 - 75.0 % [facility] Platelet mean volume (Bld) [Entitic vol] 9.7 fL 9.5 - 13.5 fL [facility] EO # 0.2 [facility] PLT 349 [facility] RBC 4.25 [facility] WBC 16.3 High [facility] Urinalysis macro (dipstick) panel (U)on 07-04-2024 Bilirubin, UA Negative Negative - 4(70) +++ mg/dL [facility] Blood, UA Negative Negative - 50 Angel Luis/mcL [facility] Clarity, UA Cloudy [facility] Color, UA Yellow [facility] Glucose, UA Negative Negative - 2000(110) ++++ mg/dL [facility] Interpretation and review of laboratory results Abnormal [facility] Ketones, UA Positive Negative - 160(16) ++++ mg/dL [facility] Comment on above: 40mg/dL Leukocytes, UA Few Negative - 500+++ Drew/mcL [facility] Comment on above: small Nitrite, UA Negative Negative - Positive [facility] pH, UA 7 5 - 9 [facility] Protein, UA Few Negative - 2000(20) ++++ mg/dL [facility] Comment on above: 30mg/dL Spec Grav, UA 1.025 1 - 1.03 [facility] Urobilinogen, UA 0.2 0.2 - 12 mg/dL [facility] Urinalysis macro (dipstick) panel (U)on 06-21-2024 Bilirubin, UA Negative Negative - 4(70) +++ mg/dL [facility] Blood, UA Negative Negative - 50 Angel Luis/mcL [facility] Clarity, UA Clear [facility] Color, UA Yellow [facility] Glucose, UA Negative Negative - 1999(110) ++++ mg/dL [facility] Interpretation and review of laboratory results Abnormal [facility] Ketones, UA Negative Negative - 160(16) ++++ mg/dL [facility] Leukocytes, UA Negative Negative - 500+++ Drew/mcL [facility] Nitrite, UA Negative Negative - Positive [facility] pH, UA 7 5 - 9 [facility] Protein, UA Positive Negative - 2000(20) ++++ mg/dL [facility] Comment on above: 30 Spec Grav, UA 1.02 1 - 1.03 [facility] Urobilinogen, UA 0.2 0.2 - 12 mg/dL [facility] Urinalysis macro (dipstick) panel (U)on 06-07-2024 Bilirubin, UA Negative Negative - 4(70) +++ mg/dL [facility] Blood, UA Negative Negative - 50 Angel Luis/mcL [facility] Clarity, UA Clear [facility] Color, UA Yellow [facility] Glucose, UA Negative Negative - 1999(110) ++++ mg/dL [facility] Interpretation and review of laboratory results Normal [facility] Ketones, UA Negative Negative - 160(16) ++++ mg/dL [facility] Leukocytes, UA Negative Negative - 500+++ Drew/mcL [facility] Nitrite, UA Negative Negative - Positive [facility] pH, UA 7 5 - 9 [facility] Protein, UA Negative Negative - 1999(20) ++++ mg/dL [facility] Spec Grav, UA 1.02 1 - 1.03 [facility] Urobilinogen, UA 0.2 0.2 - 12 mg/dL [facility] Urinalysis macro (dipstick) panel (U)on 05-09-2024 Bilirubin, UA Positive Negative - 4(70) +++ mg/dL [facility] Comment on above: small Blood, UA Negative Negative - 50 Angel Luis/mcL [facility] Clarity, UA Clear [facility] Color, UA Miryam [facility] Glucose, UA Negative Negative - 1999(110) ++++ mg/dL [facility] Interpretation and review of laboratory results Abnormal [facility] Ketones, UA Positive Negative - 160(16) ++++ mg/dL [facility] Comment on above: trace Leukocytes, UA Negative Negative - 500+++ Drew/mcL [facility] Nitrite, UA Negative Negative - Positive [facility] pH, UA 6 5 - 9 [facility] Protein, UA Positive Negative - 1999(20) ++++ mg/dL [facility] Comment on above: 30 mg Spec Grav, UA 1.03 1 - 1.03 [facility] Urobilinogen, UA 0.2 0.2 - 12 mg/dL [facility] Urinalysis macro (dipstick) panel (U)on 04-11-2024 Bilirubin, UA Negative Negative - 4(70) +++ mg/dL [facility] Blood, UA Negative Negative - 50 Angel Luis/mcL [facility] Clarity, UA Clear [facility] Color, UA Yellow [facility] Glucose, UA Negative Negative - 1999(110) ++++ mg/dL [facility] Interpretation and review of laboratory results Normal [facility] Ketones, UA Negative Negative - 160(16) ++++ mg/dL [facility] Leukocytes, UA Negative Negative - 500+++ Drew/mcL [facility] Nitrite, UA Negative Negative - Positive [facility] pH, UA 6.5 5 - 9 [facility] Protein, UA Negative Negative - 1999(20) ++++ mg/dL [facility] Spec Grav, UA 1.020 1 - 1.03 [facility] Urobilinogen, UA 0.2 0.2 - 12 mg/dL [facility] Urinalysis macro (dipstick) panel (U)on 03-14-2024 Bilirubin, UA Negative Negative - 4(70) +++ mg/dL [facility] Blood, UA Negative Negative - 50 Angel Luis/mcL [facility] Clarity, UA Clear [facility] Color, UA Yellow [facility] Glucose, UA Negative Negative - 1999(110) ++++ mg/dL [facility] Interpretation and review of laboratory results Normal [facility] Ketones, UA Negative Negative - 160(16) ++++ mg/dL [facility] Leukocytes, UA Negative Negative - 500+++ Drew/mcL [facility] Nitrite, UA Negative Negative - Positive [facility] pH, UA 7.0 5 - 9 [facility] Protein, UA Negative Negative - 1999(20) ++++ mg/dL [facility] Spec Grav, UA 1.020 1 - 1.03 [facility] Urobilinogen, UA 0.2 0.2 - 12 mg/dL [facility] Facesheeton 03-02-2023 Facesheet [id number] CD:127 Normal [facility] Ambulatory Visit Summaryon 0 [...] History of pre-eclampsia Insomnia Migraines Overweight Normal [facility] RAD - Ultrasound Reporton RAD - Ultrasound Report [id number] D:127 Normal [facility] Physician Referralon 023 Physician Referral [id number] D:127 Normal [facility] INSULINon 11-08-2022 Insulin 7.7 uIU/mL Normal 2.6-24.9 [facility] Comment on above: Performed By: #### V ITAD, IRON #### [facility] [address] [place] [address] Dr. Chucho Jesus CBC AUTO DIFFon 11-07-2022 BASO # 0.0 103/ul Normal 0.0-0.1 [facility] Comment on above: Performed By: #### V ITAD, IRON #### [facility] [address] [address] [address] Chucho Jesus Basophils/100 WBC (Bld) 0.6 % Normal 0.2-2.0 [facility] Comment on above: Performed By: #### V ITAD, IRON #### [facility] [address] [address] [address] Chucho Jesus EO # 0.1 103/ul Normal 0.0-0.7 [facility] Comment on above: Performed By: #### V ITAD, IRON #### [facility] [address] [address] [address] Chucho Jesus Eosinophils/100 WBC (Bld) 1.4 % Normal 0.9-7.0 [facility] Comment on above: Performed By: #### V ITAD, IRON #### [facility] [address] [place] [address] Dr. Chucho Jesus Erythrocyte distribution width (RBC) [Ratio] 13.9 % Normal 11.0-15.0 [facility] Comment on above: Performed By: #### V ITAD, IRON #### [facility] [address] [place] [address] Dr. Chucho Jesus Hematocrit (Bld) [Volume fraction] 45.6 % Normal 36.0-48.0 [facility] Comment on above: Performed By: #### V ITAD, IRON #### [facility] [address] [place] [address] Dr. Chucho Jesus Hemoglobin (Bld) [Mass/Vol] 15.1 g/dL Normal 12.0-16.0 [facility] Comment on above: Performed By: #### V ITAD, IRON #### [facility] [address] [place] [address] Dr. Chucho Jesus IG # 0.01 10e3/ul Normal 0.00-0.03 [facility] Comment on above: Performed By: #### V ITAD, IRON #### [facility] [address] [place] [address] Dr. Chucho Jesus IG % 0.1 % Normal 0.0-0.5 [facility] Comment on above: Performed By: #### V ITAD, IRON #### [facility] [address] [place] [address] Dr. Chucho Jesus LYMPH # 1.9 103/ul Normal 1.2-3.8 [facility] Comment on above: Performed By: #### V ITAD, IRON #### [facility] [address] [place] [address] Dr. Chucho Jesus Lymphocytes/100 WBC (Bld) 26.3 % Normal 20.5-60.0 [facility] Comment on above: Performed By: #### V ITAD, IRON #### [facility] [address] [place] [address] Dr. Chucho Jesus MANUAL DIFF REQ NO Normal [facility] Comment on above: Performed By: #### V ITAD, IRON #### [facility] [address] [place] [address] Dr. Chucho Jesus MCH (RBC) [Entitic mass] 27.9 pg Normal 26.7-34.0 [facility] Comment on above: Performed By: #### V ITAD, IRON #### [facility] [address] [place] [address] Dr. Chucho Jesus MCHC (RBC) [Mass/Vol] 33.1 g/dL Normal 29.9-35.2 [facility] Comment on above: Performed By: #### V ITAD, IRON #### [facility] [address] [place] [address] Dr. Chucho Jesus MCV (RBC) [Entitic vol] 84.1 fL Normal 81.0-99.0 [facility] Comment on above: Performed By: #### V ITAD, IRON #### [facility] [address] [place] [address] Dr. Chucho Jesus MONO # 0.5 103/ul Normal 0.3-0.8 [facility] Comment on above: Performed By: #### V ITAD, IRON #### [facility] [address] [place] [address] Dr. Chucho Jesus Monocytes/100 WBC (Bld) 7.3 % Normal 1.7-12.0 [facility] Comment on above: Performed By: #### V ITAD, IRON #### [facility] [address] [place] [address] Dr. Chucho Jesus NEUT # 4.6 103/ul Normal 1.4-6.5 [facility] Comment on above: Performed By: #### V ITAD, IRON #### [facility] [address] [place] [address] Dr. Chucho Jesus Neutrophils/100 WBC (Bld) 64.3 % Normal 43.0-75.0 [facility] Comment on above: Performed By: #### V ITAD, IRON #### [facility] [address] [place] [address] Dr. Chucho Jesus Platelet mean volume (Bld) [Entitic vol] 10.9 fL Normal 9.5-13.5 [facility] Comment on above: Performed By: #### V ITAD, IRON #### [facility] [address] [address] [address] Chucho Jesus PLT 226 103/ul Normal 150-450 [facility] Comment on above: Performed By: #### V ITAD, IRON #### [facility] [address] [address] [address] Chucho Jesus RBC 5.42 106/ul Critically high 4.20-5.40 [facility] Comment on above: Performed By: #### V ITAD, IRON #### [facility] [address] [address] [address] Chucho Jesus WBC 7.2 103/ul Normal 4.0-11.0 [facility] Comment on above: Performed By: #### V ITSONIYA, IRON #### [facility] [address] [place] [address] Dr. Chucho Jesus FREE THYROXINE INDEX T7on FTI 3.29 Normal 1.30-4.50 [facility] Comment on above: Performed By: #### V AMAURY, IRON #### [facility] [address] [place] [address] Dr. Chucho Jesus T3U 35.0 % Normal 30.0-39.0 [facility] Comment on above: Performed By: #### V AMAURY, IRON #### [facility] [address] [place] [address] Dr. Chucho Jesus T4 [Mass/Vol] 9.40 ug/dL Normal 4.80-13.90 [facility] Comment on above: Performed By: #### V ITAD, IRON #### [facility] [address] [place] [address] Dr. Chucho Jesus GLYCOHEMOGLOBIN A1Con 2022 ADA RECOMMENDATION SEE BELOW Normal [facility] Comment on above: Result Comment: ADA RECOMMENDED LIMIT 4.0 - 6.0 ADA THERAPEUTIC TARGET < 7.0 ACTION SUGGESTED > 7.0 Performed By: #### A 1C #### [facility] [address] [place] [address] Dr. Chucho Jesus Glucose [Mass/Vol] 94 mg/dL Normal [facility] Comment on above: Performed By: #### A 1C #### [facility] [address] [address] [address] Chucho Jesus HbA1c (Bld) [Mass fraction] 4.9 % Normal 4.5-6.2 [facility] Comment on above: Performed By: #### A 1C #### [facility] [address] [place] [address] Dr. Chucho Jesus IRONon 11-07-2022 Iron [Mass/Vol] 81.0 ug/dL Normal 50.0-170.0 [facility] Comment on above: Performed By: #### V ITAD, IRON #### [facility] [address] [place] [address] Dr. Chucho Jesus LIPID PROFILEon 11-07-2022 CHOL-HDL RATIO NORM SEE BELOW Normal [facility] Comment on above: Result Comment: 3.3 - 4.4 LOW RISK 4.4 - 7.1 AVERAGE RISK 7.1 - 11.0 MODERATE RISK >11.0 HIGH RISK Performed By: #### V ITAD, IRON #### [facility] [address] [place] [address] Dr. Chucho Jesus Cholesterol [Mass/Vol] 126 mg/dL Normal <=200 [facility] Comment on above: Performed By: #### V ITAD, IRON #### [facility] [address] [place] [address] Dr. Chucho Jesus Cholesterol in HDL [Mass/Vol] 38 mg/dL Critically low 40-60 [facility] Comment on above: Performed By: #### V ITAD, IRON #### [facility] [address] [place] [address] Dr. Chucho Jesus Cholesterol in LDL [Mass/Vol] 79.4 mg/dL Normal [facility] Comment on above: Performed By: #### V ITAD, IRON #### [facility] [address] [place] [address] Dr. Chucho Jesus Cholesterol.total/C holesterol in HDL [Mass ratio] 3.3 {ratio} Normal [facility] Comment on above: Performed By: #### V ITAD, IRON #### [facility] [address] [address] [address] Chucho Jesus HDL NORMAL > or = 60 mg/dl - LO W CARDIOVASCULAR RISK <40 mg/dl - HIGH CARDIOVASCULAR RISK Normal [facility] Comment on above: Performed By: #### V ITAD, IRON #### [facility] [address] [place] [address] Dr. Chucho Jesus LDL CALC NORMAL SEE BELOW Normal [facility] Comment on above: Result Comment: <100 mg/dl OPTIMAL 100 - 129 mg/dl NEAR OR ABOVE OPTIMAL 130 - 159 mg/dl BORDERLINE HIGH 160 - 189 mg/dl HIGH >190 mg/dl VERY HIGH Performed By: #### V ITAD, IRON #### [facility] Laboratory [address] [place] [address] Dr. Chucho Jesus Triglyceride [Mass/Vol] 43 mg/dL Normal <=150 [facility] Comment on above: Performed By: #### V ITAD, IRON #### [facility] [address] [address] [address] Chucho Jesus VLDL CALC 8.6 mg/dL Normal [facility] Comment on above: Performed By: #### V ITAD, IRON #### [facility] Laboratory [address] [place] [address] Dr. Chucho Jesus PROF 14(COMP METB)on 023 Albumin [Mass/Vol] 4.2 g/dL Normal 3.4-5.0 [facility] Comment on above: Performed By: #### V ITAD, IRON #### [facility] Laboratory [address] [place] [address] Dr. Chucho Jesus Albumin/Globulin [Mass ratio] 1.1 {ratio} Normal [facility] Comment on above: Performed By: #### V ITAD, IRON #### [facility] [address] [place] [address] Dr. Chucho Jesus ALP [Catalytic activity/Vol] 93 U/L Normal 46-116 [facility] Comment on above: Performed By: #### V ITAD, IRON #### [facility] [address] [place] [address] Dr. Chucho Jesus ALT [Catalytic activity/Vol] 16 U/L Normal 14-59 [facility] Comment on above: Performed By: #### V ITAD, IRON #### [facility] [address] [place] [address] Dr. Chucho Jesus Anion gap [Moles/Vol] 14.3 mmol/L Normal [facility] Comment on above: Performed By: #### V ITAD, IRON #### [facility] [address] [place] [address] Dr. Chucho Jesus AST [Catalytic activity/Vol] 16 U/L Normal 15-37 [facility] Comment on above: Performed By: #### V ITAD, IRON #### [facility] [address] [place] [address] Dr. Chucho Jesus Bilirubin [Mass/Vol] 1.0 mg/dL Normal 0.2-1.0 [facility] Comment on above: Performed By: #### V ITAD, IRON #### [facility] [address] [place] [address] Dr. Chucho Jesus Calcium [Mass/Vol] 9.4 mg/dL Normal 8.5-10.1 [facility] Comment on above: Performed By: #### V ITAD, IRON #### [facility] [address] [place] [address] Dr. Chucho Jesus Chloride [Moles/Vol] 103 mmol/L Normal 98-107 [facility] Comment on above: Performed By: #### V ITAD, IRON #### [facility] [address] [place] [address] Dr. Chucho Jesus CO2 [Moles/Vol] 24.9 mmol/L Normal 21.0-32.0 [facility] Comment on above: Performed By: #### V ITAD, IRON #### [facility] [address] [place] [address] Dr. Chucho Jesus Creatinine [Mass/Vol] 0.68 mg/dL Normal 0.55-1.02 [facility] Comment on above: Performed By: #### V ITAD, IRON #### [facility] [address] [address] [address] Chucho Jesus EGFR-AF SINGAPOREAN >60 Normal >=60 [facility] Comment on above: Performed By: #### V ITAD, IRON #### [facility] [address] [address] [address] Chucho Jesus EGFR-NON AF SINGAPOREAN >60 Normal >=60 [facility] Comment on above: Performed By: #### V ITAD, IRON #### [facility] [address] [address] [address] Chucho Jesus Globulin (S) [Mass/Vol] 3.9 g/dL Normal [facility] Comment on above: Performed By: #### V ITAD, IRON #### [facility] [address] [place] [address] Dr. Chucho Jesus Glucose [Mass/Vol] 89 mg/dL Normal 74-106 [facility] Comment on above: Performed By: #### V ITAD, IRON #### [facility] [address] [address] [address] Chucho Jesus Potassium [Moles/Vol] 4.2 mmol/L Normal 3.5-5.1 [facility] Comment on above: Performed By: #### V ITAD, IRON #### [facility] [address] [place] [address] Dr. Chucho Jesus Protein [Mass/Vol] 8.1 g/dL Normal 6.4-8.2 [facility] Comment on above: Performed By: #### V ITAD, IRON #### [facility] [address] [place] [address] Dr. Chucho Jesus Sodium [Moles/Vol] 138 mmol/L Normal 136-145 [facility] Comment on above: Performed By: #### V ITAD, IRON #### [facility] [address] [address] [address] Chucho Jesus Urea nitrogen [Mass/Vol] 9.0 mg/dL Normal 7.0-18.0 [facility] Comment on above: Performed By: #### V ITAD, IRON #### [facility] [address] [address] [address] Chucho Jesus Urea nitrogen/Creatinine [Mass ratio] 13.2 mg/mg Normal [facility] Comment on above: Performed By: #### V ITAD, IRON #### [facility] [address] [place] [address] Dr. Chucho Jesus TSHon 11-07-2022 TSH 1.668 uIU/mL Normal 0.358-3.740 [facility] Comment on above: Performed By: #### V ITAD, IRON #### [facility] [address] [address] [address] Chucho Jesus Covid-19 PCR (CVDTBH)on SARS-CoV-2 [...] for this test is supported by the [place] of Health and Human Service's declaration that [...] [facility] [address] [place] [address] Dr. Chucho Jesus Covid-19 PCR (CVDTBH)on SARS-CoV-2 [...] for this test is supported by the [place] of Health and Human Service's declaration that [...] used). Performed By: #### C VDTB #### [facility] [address] [place] [address] Dr. Chucho Jesus INFLUENZA A AND B AGon 08-11 [facility] SEE BELOW Normal [facility] Comment on above: Result Comment: Nega tive for Flu A protein angiten. Infection due to Flu A cannot be ruled out. Flu A angiten in the sample may be below the detection limit of the test. Performed By: #### I NFLUAB #### [facility] [address] [place] [address] Dr. Chucho [facility] Normal [facility] Comment on above: Result Comment: Nega tive for Flu B protein antigen. Infection due to Flu B cannot be ruled out. Flu B antigen in the sample may be below the detection limit of the test. Performed By: #### I NFLUAB #### [facility] [address] [place] [address] Dr. Chucho Jesus INFLUENZA A AG Negative Normal NEGATIVE SEE COMMENT The [facility] Comment on above: Performed By: #### I NFLUAB #### [facility] [address] [place] [address] Dr. Chucho Jesus INFLUENZA B AG Negative Normal NEGATIVE SEE COMMENT [facility] Comment on above: Performed By: #### I NFLUAB #### [facility] [address] [address] [address] Chucho Jesus [facility]on [facility]-07 SARS-CoV-2 (COVID-19) RNA DMITRY+probe [...] for this test is supported by the [place] of Health and Human Service's declaration that [facility] [address] [address] [address] Chucho Jesus INFLUENZA A AND B AGon 05-26 [facility] Normal [facility] Comment on above: Result Comment: Nega tive for Flu A protein angiten. Infection due to Flu A cannot be ruled out. Flu A angiten in the sample may be below the detection limit of the test. Performed By: #### V ITAD, IRON #### [facility] [address] [address] [address] Chucho Jesus INFLUBNEG SEE BELOW Normal [facility] Comment on above: Result Comment: Nega tive for Flu B protein antigen. Infection due to Flu B cannot be ruled out. Flu B antigen in the sample may be below the detection limit of the test. Performed By: #### V ITAD, IRON #### [facility] [address] [address] [address] Chucho Jesus INFLUENZA A AG Negative Normal NEGATIVE SEE COMMENT The [facility] Comment on above: Performed By: #### V ITAD, IRON #### [facility] [address] [address] [address] Chucho Jesus INFLUENZA B AG Negative Normal NEGATIVE SEE COMMENT [facility] Comment on above: Performed By: #### V ITAD, IRON #### [facility] [address] [place] [address] Dr. Chucho Jesus INTERNAL CONTROLS Within Normal Limits Normal Wi thin Normal Limits [facility] Comment on above: Performed By: #### V ITAD, IRON #### [facility] [address] [place] [address] Dr. Chucho Jesus ER URINE PROFILEon 2 Bilirubin Ql (U) Negative Normal NEGATIVE [facility] Comment on above: Performed By: #### V ITAD, IRON #### [facility] [address] [place] [address] Dr. Chucho Jesus Clarity (U) CLEAR Normal CLEAR [facility] Comment on above: Performed By: #### V ITAD, IRON #### [facility] [address] [place] [address] Dr. Chucho Jesus Color (U) YELLOW Normal YELLOW [facility] Comment on above: Performed By: #### V ITAD, IRON #### [facility] [address] [place] [address] Dr. Chucho BAHENA A micrscopic examination will be performed if indicated. Normal [facility] Comment on above: Performed By: #### V ITAD, IRON #### [facility] [address] [place] [address] Dr. Chucho Jesus Glucose Ql (U) Negative Normal NEGATIVE [facility] Comment on above: Performed By: #### V ITAD, IRON #### [facility] [address] [place] [address] Dr. Chucho Jesus Hemoglobin Ql (U) Negative Normal NEGATIVE [facility] Comment on above: Performed By: #### V ITAD, IRON #### [facility] [address] [place] [address] Dr. Chucho Jesus Ketones Ql (U) >=80 Abnormal NEGATIVE [facility] Comment on above: Performed By: #### V ITAD, IRON #### [facility] [address] [place] [address] Dr. Chucho Jesus LEUKOCYTES Negative Normal NEGATIVE [facility] Comment on above: Performed By: #### V ITAD, IRON #### [facility] [address] [place] [address] Dr. Chucho Jesus Nitrite Ql (U) Negative Normal NEGATIVE [facility] Comment on above: Performed By: #### V ITAD, IRON #### [facility] [address] [place] [address] Dr. Chucho Jesus pH (U) 6.0 [pH] Normal 5-9 [facility] Comment on above: Performed By: #### V ITAD, IRON #### [facility] [address] [place] [address] Dr. Chucho Jesus Protein (U) [Mass/Vol] 100 mg/dL Abnormal NEGATIVE/ TRACE The [facility] Comment on above: Performed By: #### V ITAD, IRON #### [facility] [address] [place] [address] Dr. Chucho Jesus SPEC GRAVITY >=1.030 Abnormal 1.005-<=1.025 [facility] Comment on above: Performed By: #### V ITAD, IRON #### [facility] [address] [place] [address] Dr. Chucho Jesus UR MICRO IND INDICATED Normal [facility] Comment on above: Performed By: #### V ITAD, IRON #### [facility] [address] [place] [address] Dr. Chucho Jesus Urobilinogen Qn (U) 0.2 {[place]helsea'U}/dL Normal 0.2 - 1. 0 [facility] Comment on above: Performed By: #### V ITAD, IRON #### [facility] [address] [place] [address] Dr. Chucho Jesus URon 05-22-2022 , QUAL Negative Normal NEGATIVE [facility] Comment on above: Performed By: #### V ITAD, IRON #### [facility] [address] [place] [address] Dr. Chucho Jesus URINE MICROSCOPIC ONLYon BACTERIA NONE SEEN Normal NONE SEEN The [facility] Comment on above: Performed By: #### V ITAD, IRON #### [facility] [address] [place] [address] Dr. Chucho Jesus Bacteria identified Cx Nom (U) NOT INDICATED Normal [facility] Comment on above: Performed By: #### V ITAD, IRON #### [facility] [address] [place] [address] Dr. Chucho Jesus CAST NONE SEEN Normal NONE SEEN The [facility] Comment on above: Performed By: #### V ITAD, IRON #### [facility] [address] [place] [address] Dr. Chucho Jesus Crystals LM Nom (Urine sed) NONE SEEN Normal NONE SEEN The [facility] Comment on above: Performed By: #### V ITAD, IRON #### [facility] [address] [place] [address] Dr. Chucho Jesus Epithelial cells LM Ql (Urine sed) FEW Abnormal NONE SEEN /RARE The [facility] Comment on above: Performed By: #### V ITAD, IRON #### [facility] [address] [place] [address] Dr. Chucho Jesus MUCOUS MODERATE Abnormal NONE SEEN The [facility] Comment on above: Performed By: #### V ITAD, IRON #### [facility] [address] [place] [address] Dr. Chucho Jesus RBC NONE SEEN Abnormal 0-2 [facility] Comment on above: Performed By: #### V ITAD, IRON #### [facility] [address] [place] [address] Dr. Chucho Jesus WBC NONE SEEN Normal NONE SEEN The [facility] Comment on above: Performed By: #### V ITAD, IRON #### [facility] [address] [place] [address] Dr. Chucho Jesus XR LSPINE 2_3 VIEWSon [...] [facility] [address] [place] [address] Dr. Chucho Jesus CBC AUTO DIFFon 04-24-2022 BASO # 0.0 103/ul Normal 0.0-0.1 [facility] Comment on above: Performed By: #### C BC #### [facility] [address] [address] [address] Chucho Jesus Basophils/100 WBC (Bld) 0.6 % Normal 0.2-2.0 [facility] Comment on above: Performed By: #### C BC #### [facility] [address] [place] [address] Dr. Chucho Jesus EO # 0.1 103/ul Normal 0.0-0.7 [facility] Comment on above: Performed By: #### C BC #### [facility] [address] [address] [address] Chucho Jesus Eosinophils/100 WBC (Bld) 1.8 % Normal 0.9-7.0 [facility] Comment on above: Performed By: #### C BC #### [facility] [address] [place] [address] Dr. Chucho Jesus Erythrocyte distribution width (RBC) [Ratio] 12.9 % Normal 11.0-15.0 [facility] Comment on above: Performed By: #### C BC #### [facility] [address] [address] [address] Chucho Jesus Hematocrit (Bld) [Volume fraction] 45.6 % Normal 36.0-48.0 [facility] Comment on above: Performed By: #### C BC #### [facility] [address] [place] [address] Dr. Chucho Jesus Hemoglobin (Bld) [Mass/Vol] 14.7 g/dL Normal 12.0-16.0 [facility] Comment on above: Performed By: #### C BC #### [facility] [address] [place] [address] Dr. Chucho Jesus IG # 0.02 10e3/ul Normal 0.00-0.03 [facility] Comment on above: Performed By: #### C BC #### [facility] [address] [place] [address] Dr. Chucho Jesus IG % 0.3 % Normal 0.0-0.5 [facility] Comment on above: Performed By: #### C BC #### [facility] [address] [place] [address] Dr. Chucho Jesus LYMPH # 1.6 103/ul Normal 1.2-3.8 [facility] Comment on above: Performed By: #### C BC #### [facility] [address] [place] [address] Dr. Chucho Jesus Lymphocytes/100 WBC (Bld) 24.5 % Normal 20.5-60.0 [facility] Comment on above: Performed By: #### C BC #### [facility] [address] [place] [address] Dr. Chucho Jesus MANUAL DIFF REQ NO Normal [facility] Comment on above: Performed By: #### C BC #### [facility] [address] [place] [address] Dr. Chucho Jesus MCH (RBC) [Entitic mass] 28.4 pg Normal 26.7-34.0 [facility] Comment on above: Performed By: #### C BC #### [facility] [address] [address] [address] Chucho Jesus MCHC (RBC) [Mass/Vol] 32.2 g/dL Normal 29.9-35.2 [facility] Comment on above: Performed By: #### C BC #### [facility] [address] [address] [address] Chucho Jesus MCV (RBC) [Entitic vol] 88.2 fL Normal 81.0-99.0 [facility] Comment on above: Performed By: #### C BC #### [facility] [address] [place] [address] Dr. Chuhco Jesus MONO # 0.5 103/ul Normal 0.3-0.8 [facility] Comment on above: Performed By: #### C BC #### [facility] [address] [place] [address] Dr. Chucho Jesus Monocytes/100 WBC (Bld) 7.4 % Normal 1.7-12.0 [facility] Comment on above: Performed By: #### C BC #### [facility] [address] [place] [address] Dr. Chucho Jesus NEUT # 4.4 103/ul Normal 1.4-6.5 [facility] Comment on above: Performed By: #### C BC #### [facility] [address] [place] [address] Dr. Chucho Jesus Neutrophils/100 WBC (Bld) 65.4 % Normal 43.0-75.0 [facility] Comment on above: Performed By: #### C BC #### [facility] [address] [place] [address] Dr. Chucho Jesus Platelet mean volume (Bld) [Entitic vol] 9.9 fL Normal 9.5-13.5 [facility] Comment on above: Performed By: #### C BC #### [facility] [address] [place] [address] Dr. Chucho Jesus PLT 225 103/ul Normal 150-450 [facility] Comment on above: Performed By: #### C BC #### [facility] [address] [address] [address] Chucho Jesus RBC 5.17 106/ul Normal 4.20-5.40 [facility] Comment on above: Performed By: #### C BC #### [facility] [address] [address] [address] Chucho Jesus WBC 6.7 103/ul Normal 4.0-11.0 [facility] Comment on above: Performed By: #### C BC #### [facility] [address] [address] [address] Chucho Jesus FREE THYROXINE INDEX T7on FTI 3.29 Normal 1.30-4.50 [facility] Comment on above: Performed By: #### T 7, TSH, LIPID, CMP #### [facility] [address] [place] [address] Dr. Chucho Jesus T3U 27.0 % Critically low 30.0-39.0 [facility] Comment on above: Performed By: #### T 7, TSH, LIPID, CMP #### [facility] [address] [place] [address] Dr. Chucho Jesus T4 [Mass/Vol] 12.20 ug/dL Normal 4.80-13.90 [facility] Comment on above: Performed By: #### T 7, TSH, LIPID, CMP #### [facility] [address] [place] [address] Dr. Chucho Jesus GLYCOHEMOGLOBIN A1Con 2021 ADA RECOMMENDATION SEE BELOW Normal [facility] Comment on above: Result Comment: ADA RECOMMENDED LIMIT 4.0 - 6.0 ADA THERAPEUTIC TARGET < 7.0 ACTION SUGGESTED > 7.0 Performed By: #### A 1C #### [facility] [address] [place] [address] Dr. Chucho Jesus Glucose [Mass/Vol] 105 mg/dL Normal [facility] Comment on above: Performed By: #### A 1C #### [facility] [address] [place] [address] Dr. Chucho Jesus HbA1c (Bld) [Mass fraction] 5.3 % Normal 4.5-6.2 [facility] Comment on above: Performed By: #### A 1C #### [facility] [address] [address] [address] Chucho Jesus IRONon 04-24-2022 Iron [Mass/Vol] 48.0 ug/dL Critically low 50.0-170.0 [facility] Comment on above: Performed By: #### V ITAD, IRON #### [facility] [address] [address] [address] Chucho Jesus LIPID PROFILEon 04-24-2022 CHOL-HDL RATIO NORM SEE BELOW Normal [facility] Comment on above: Result Comment: 3.3 - 4.4 LOW RISK 4.4 - 7.1 AVERAGE RISK 7.1 - 11.0 MODERATE RISK >11.0 HIGH RISK Performed By: #### V ITAD, IRON #### [facility] [address] [address] [address] Chucho Jesus Cholesterol [Mass/Vol] 184 mg/dL Normal <=200 [facility] Comment on above: Performed By: #### V ITAD, IRON #### [facility] [address] [address] [address] Chucho Jesus Cholesterol in HDL [Mass/Vol] 55 mg/dL Normal 40-60 [facility] Comment on above: Performed By: #### V ITAD, IRON #### [facility] [address] [address] [address] Chucho Jesus Cholesterol in LDL [Mass/Vol] 116.6 mg/dL Normal [facility] Comment on above: Performed By: #### V ITAD, IRON #### [facility] [address] [address] [address] Chucho Jesus Cholesterol.total/C holesterol in HDL [Mass ratio] 3.3 {ratio} Normal [facility] Comment on above: Performed By: #### V ITAD, IRON #### [facility] [address] [address] [address] Chucho eJsus HDL NORMAL > or = 60 mg/dl - LO W CARDIOVASCULAR RISK <40 mg/dl - HIGH CARDIOVASCULAR RISK Normal [facility] Comment on above: Performed By: #### V ITAD, IRON #### [facility] [address] [address] [address] Chucho Jesus LDL CALC NORMAL SEE BELOW Normal [facility] Comment on above: Result Comment: <100 mg/dl OPTIMAL 100 - 129 mg/dl NEAR OR ABOVE OPTIMAL 130 - 159 mg/dl BORDERLINE HIGH 160 - 189 mg/dl HIGH >190 mg/dl VERY HIGH Performed By: #### V ITAD, IRON #### [facility] [address] [address] [address] Chucho Jesus Triglyceride [Mass/Vol] 62 mg/dL Normal <=150 [facility] Comment on above: Performed By: #### V AMAURY, IRON #### [facility] [address] [address] [address] Chucho Jesus VLDL CALC 12.4 mg/dL Normal [facility] Comment on above: Performed By: #### V AMAURY, IRON #### [facility] [address] [address] [address] Chucho Jesus PROF 14(COMP METB)on 04-24- 022 Albumin [Mass/Vol] 3.7 g/dL Normal 3.4-5.0 [facility] Comment on above: Performed By: #### T 7, TSH, LIPID, CMP #### [facility] [address] [address] [address] Chucho Jesus Albumin/Globulin [Mass ratio] 0.9 {ratio} Normal [facility] Comment on above: Performed By: #### T 7, TSH, LIPID, CMP #### [facility] [address] [address] [address] Chucho Jesus ALP [Catalytic activity/Vol] 74 U/L Normal 46-116 [facility] Comment on above: Performed By: #### T 7, TSH, LIPID, CMP #### [facility] [address] [address] [address] Chucho Jesus ALT [Catalytic activity/Vol] 16 U/L Normal 14-59 [facility] Comment on above: Performed By: #### T 7, TSH, LIPID, CMP #### [facility] [address] [address] [address] Chucho Jesus Anion gap [Moles/Vol] 12.3 mmol/L Normal [facility] Comment on above: Performed By: #### T 7, TSH, LIPID, CMP #### [facility] [address] [address] [address] Chucho Jesus AST [Catalytic activity/Vol] 13 U/L Critically low 15-37 [facility] Comment on above: Performed By: #### T 7, TSH, LIPID, CMP #### [facility] [address] [address] [address] Chucho Jesus Bilirubin [Mass/Vol] 0.4 mg/dL Normal 0.2-1.0 [facility] Comment on above: Performed By: #### T 7, TSH, LIPID, CMP #### [facility] [address] [address] [address] Chucho Jesus Calcium [Mass/Vol] 8.9 mg/dL Normal 8.5-10.1 [facility] Comment on above: Performed By: #### T 7, TSH, LIPID, CMP #### [facility] [address] [address] [address] Chucho Jesus Chloride [Moles/Vol] 105 mmol/L Normal 98-107 [facility] Comment on above: Performed By: #### T 7, TSH, LIPID, CMP #### [facility] [address] [address] [address] Chucho Jesus CO2 [Moles/Vol] 26.6 mmol/L Normal 21.0-32.0 [facility] Comment on above: Performed By: #### T 7, TSH, LIPID, CMP #### [facility] [address] [address] [address] Chucho Jesus Creatinine [Mass/Vol] 0.68 mg/dL Normal 0.55-1.02 [facility] Comment on above: Performed By: #### T 7, TSH, LIPID, CMP #### [facility] [address] [address] [address] Chucho Jesus EGFR-AF SINGAPOREAN >60 Normal >=60 [facility] Comment on above: Performed By: #### T 7, TSH, LIPID, CMP #### [facility] [address] [place] [address] Dr. Chucho Jesus EGFR-NON AF SINGAPOREAN >60 Normal >=60 [facility] Comment on above: Performed By: #### T 7, TSH, LIPID, CMP #### [facility] [address] [address] [address] Chucho Jesus Globulin (S) [Mass/Vol] 4.3 g/dL Normal [facility] Comment on above: Performed By: #### T 7, TSH, LIPID, CMP #### [facility] [address] [place] [address] Dr. Chucho Jesus Glucose [Mass/Vol] 87 mg/dL Normal 74-106 [facility] Comment on above: Performed By: #### T 7, TSH, LIPID, CMP #### [facility] [address] [place] [address] Dr. Chucho Jesus Potassium [Moles/Vol] 3.9 mmol/L Normal 3.5-5.1 [facility] Comment on above: Performed By: #### T 7, TSH, LIPID, CMP #### [facility] [address] [place] [address] Dr. Chucho Jesus Protein [Mass/Vol] 8.0 g/dL Normal 6.4-8.2 [facility] Comment on above: Performed By: #### T 7, TSH, LIPID, CMP #### [facility] [address] [place] [address] Dr. Chucho Jesus Sodium [Moles/Vol] 140 mmol/L Normal 136-145 [facility] Comment on above: Performed By: #### T 7, TSH, LIPID, CMP #### [facility] [address] [place] [address] Dr. Chucho Jesus Urea nitrogen [Mass/Vol] 9.0 mg/dL Normal 7.0-18.0 [facility] Comment on above: Performed By: #### T 7, TSH, LIPID, CMP #### [facility] [address] [address] [address] Chucho Jesus Urea nitrogen/Creatinine [Mass ratio] 13.2 mg/mg Normal [facility] Comment on above: Performed By: #### T 7, TSH, LIPID, CMP #### [facility] [address] [place] [address] Dr. Chucho Jesus TSHon 04-24-2022 TSH 1.127 uIU/mL Normal 0.358-3.740 [facility] Comment on above: Performed By: #### T 7, TSH, LIPID, CMP #### [facility] [address] [address] [address] Chucho Jesus VITAMIN D 25 OHon 04-24-2022 VIT D 25-OH 35.2 ng/mL Normal [facility] Comment on above: Performed By: #### V ITAD, IRON #### [facility] [address] [place] [address] Dr. Chucho Jesus VIT D RANGES SEE BELOW Normal [facility] Comment on above: Result Comment: <20 ng/mL Vit D deficient 20 - <30 ng/mL Vit D insufficient 30 - 100 ng/mL Vit D sufficient >100 ng/mL Potential Toxicity Performed By: #### V ITAD, IRON #### [facility] [address] [place] [address] Dr. Chucho Jesus HCG ( test) Ql (U)O rdered By: James Churchill on 12-05-2020 Internal Control [facility] Interpretation and review of laboratory results Normal [facility] POC , UrineOrdered By: James Churchill on 12-05-2020 HCG ( test) Ql (U) Negative Negative [facility] CTA CHEST WITH CONTRASTon CTA CHEST [...] by:Ady Tran MD03/25/17Edited Result - FINAL Normal [facility] Basic Metabolic Profon 02-19 (cont.) Normal [facility] Comment on above: Result Comment: Aver age GFR for 20-29 years old: 116 mL/min/1.73sq mChronic Kidney Disease: <60 mL/min/1.73sq mKidney failure: <15 mL/min/1.73sq meGFR calculated using average adult body mass. Additional eGFR calculator available at:http://www.[employer]/multiple_crcl_2011.htm Performed By: #### C DP, BMP, TROPI ####[address] [place] [address] Anion gap 14 mmol/L Normal 03-22 [facility] Comment on above: Performed By: #### C DP, BMP, TROPI ####[address] [place] [address] BUN/CRE Ratio 13 Normal - [facility] Comment on above: Performed By: #### C DP, BMP, TROPI ####[address] [place] [address] Calcium 9.2 mg/dL Normal 8.6-10.4 [facility] Comment on above: Performed By: #### C DP, BMP, TROPI ####[address] [place] [address] Chloride 105 mmol/L Normal 98-107 [facility] Comment on above: Performed By: #### C DP, BMP, TROPI ####[address] [place] [address] CO2 23 mmol/L Normal 20-31 [facility] Comment on above: Performed By: #### C DP, BMP, TROPI ####[address] [place] [address] Creatinine 0.55 mg/dL Normal 0.50-0.90 [facility] Comment on above: Performed By: #### C DP, BMP, TROPI ####[address] [place] [address] eGFR (non-black) mL/min/{1.73_m2} Normal >60 [facility] Comment on above: Performed By: #### C DP, BMP, TROPI ####[address] [place] [address] Glucose mass conc 96 mg/dL Normal 70-99 [facility] Comment on above: Performed By: #### C DP, BMP, TROPI ####[address] [place] [address] Potassium molar conc 3.6 mmol/L Low 3.7-5.3 [facility] Comment on above: Performed By: #### C DP, BMP, TROPI ####[address] [place] [address] Sodium 142 mmol/L Normal 135-144 [facility] Comment on above: Performed By: #### C DP, BMP, TROPI ####[address] [place] [address] Staging: Normal [facility] Comment on above: Result Comment: Stag e 1: Some kidney damage normal GFRStage 2: Mild kidney damage GFR 60-89Stage 3: Moderate kidney damage GFR 30-59Stage 4: Severe kidney damage GFR 15-29Stage 5: Severe kidney damage GFR <15ESRD - chronic treatment by dialysis or transplantPerformed at [address] [place] [address] Performed By: #### C DP, BMP, TROPI ####[address] [place] [address] Urea nitrogen 7 mg/dL Normal 6-20 [facility] Comment on above: Performed By: #### C DP, BMP, TROPI ####[address] [place] [address] CBC with Diffon 02-19-2017 Abs. Basophil 0.00 k/uL Normal 0.0-0.2 [facility] Comment on above: Result Comment: Perf ormed at [address] [place] [address] Performed By: #### C DP, BMP, TROPI ####[address] [place] [address] Abs.Neutrophil (Seg) 7.10 k/uL Normal 1.8-8.0 [facility] Comment on above: Performed By: #### C DP, BMP, TROPI ####[address] , [place] [address] Basophils/100 WBC Auto (Bld) 0 % Normal [facility] Comment on above: Performed By: #### C DP, BMP, TROPI ####[address] [place] [address] Eosinophils 0.30 10*3/uL Normal 0.0-0.4 [facility] Comment on above: Performed By: #### C DP, BMP, TROPI ####[address] [place] [address] Eosinophils/100 leukocytes 3 % Normal [facility] Comment on above: Performed By: #### C DP, BMP, TROPI ####[address] [place] [address] Erythrocyte distribution width Auto Ratio (RBC) 13.6 % Normal 12.1-15.2 [facility] Comment on above: Performed By: #### C DP, BMP, TROPI ####[address] [place] [address] Erythrocytes (RBC) 5.03 10*6/uL Normal 4.0-5.2 [facility] Comment on above: Performed By: #### C DP, BMP, TROPI ####[address] [place] [address] Hematocrit (HCT) 40.2 % Normal 36-46 [facility] Comment on above: Performed By: #### C DP, BMP, TROPI ####[address] [place] [address] Hemoglobin mass conc (Bld) 13.2 g/dL Normal 12.0-16.0 [facility] Comment on above: Performed By: #### C DP, BMP, TROPI ####[address] [place] [address] Lymphocytes 2.90 10*3/uL Normal 1.2-5.2 [facility] Comment on above: Performed By: #### C DP, BMP, TROPI ####[address] [place] [address] Lymphocytes/100 leukocytes 27 % Normal [facility] Comment on above: Performed By: #### C DP, BMP, TROPI ####[address] [place] [address] MCH 26.2 pg Normal 26-34 [facility] Comment on above: Performed By: #### C DP, BMP, TROPI ####[address] [place] [address] MCHC mass conc (RBC) 32.8 g/dL Normal 31-37 [facility] Comment on above: Performed By: #### C DP, BMP, TROPI ####[address] [place] [address] MCV 79.9 fL Low 80-100 [facility] Comment on above: Performed By: #### C DP, BMP, TROPI ####[address] [place] [address] Monocytes 0.60 10*3/uL Normal 0.0-1.0 [facility] Comment on above: Performed By: #### C DP, BMP, TROPI ####[address] [place] [address] Monocytes/100 leukocytes 5 % Normal [facility] Comment on above: Performed By: #### C DP, BMP, TROPI ####[address] [place] [address] Neutrophil (Seg) 65 % Normal [facility] Comment on above: Performed By: #### C DP, BMP, TROPI ####[address] [place] [address] Platelet mean volume (PMV) 9.6 fL Normal 6.0-12.0 [facility] Comment on above: Performed By: #### C DP, BMP, TROPI ####[address] [place] [address] Platelets 278 10*3/uL Normal 140-450 [facility] Comment on above: Performed By: #### C DP, BMP, TROPI ####[address] [place] [address] WBC (Leukocytes) 10.8 10*3/uL Normal 4.5-13.5 [facility] Comment on above: Performed By: #### C DP, BMP, TROPI ####[address] [place] [address] Auto Diff Performed NOT REPORTED Normal [facility] Comment on above: Performed By: #### C DP, BMP, TROPI ####[address] [place] [address] Erythrocyte morphology NOT REPORTED Normal [facility] Comment on above: Performed By: #### C DP, BMP, TROPI ####[address] [place] [address] Platelets NOT REPORTED Normal [facility] Comment on above: Performed By: #### C DP, BMP, TROPI ####[address] [place] [address] WBC Morphology NOT REPORTED Normal [facility] Comment on above: Performed By: #### C DP, BMP, TROPI ####[address] [place] [address] ED Noteon 02-19-2017 HIM IP Note OR Web Operations Specialist Normal [facility] ED Provider Noteon 7 HIM IP Note OR Web Operations Specialist Normal [facility] Troponinon 02-19-2017 Troponin T.cardiac mass conc ug/L Normal <0.03 [facility] Comment on above: Result Comment: Trop onin T results cannot be compared to Troponin-I results. Performed By: #### C DP, BMP, TROPI ####[address] [place] [address] Troponin I.cardiac mass conc Normal [facility] Comment on above: Result Comment: Refe rence Range: <0.03 Within reference range. 0.03-0.09 Possible myocardial damage.Repeat at appropriate intervals to rule out chronic elevation. >= 0.10 Indicative of myocardial damage.Performed at [address] [place] [address] Performed By: #### C DP, BMP, TROPI ####[address] [place] [address] Vital Signs Date Time Vital Sign Value Performing Clinician Facility 07-27-2024 08:59-0500 Body mass index (BMI) [Ratio] 37.67 kg/m2 Little LOWRY Work Phone: [facility] 07-27-2024 08:59-0500 Body weight 102.69 kg Little LOWRY Work Phone: [facility] 07-27-2024 08:59-0500 Diastolic blood pressure 70 mm[Hg] Little LOWRY Work Phone: [facility] 07-27-2024 08:59-0500 Systolic blood pressure 118 mm[Hg] Little LOWRY Work Phone: [facility] 07-18-2024 10:02-0500 Body mass index (BMI) [Ratio] 36.91 kg/m2 Berto Luis DO Work Phone: [facility] 07-18-2024 10:02-0500 Body weight 100.61 kg Berto Luis DO Work Phone: [facility] 07-18-2024 10:02-0500 Diastolic blood pressure 70 mm[Hg] Berto Luis DO Work Phone: [facility] 07-18-2024 10:02-0500 Systolic blood pressure 130 mm[Hg] Berto Luis DO Work Phone: [facility] 07-04-2024 12:13-0500 Body mass index (BMI) [Ratio] 35.84 kg/m2 Little LOWRY Work Phone: [facility] 07-04-2024 12:13-0500 Body weight 97.7 kg Little LOWRY Work Phone: [facility] 07-04-2024 12:13-0500 Diastolic blood pressure 64 mm[Hg] Little LOWRY Work Phone: [facility] 07-04-2024 12:13-0500 Systolic blood pressure 104 mm[Hg] Little Schaumburg PA Work Phone: [facility] 06-21-2024 13:31-0500 Body mass index (BMI) [Ratio] 35.61 kg/m2 Little Ezra PA Work Phone: [facility] 06-21-2024 13:31-0500 Body weight 97.07 kg Little Ezra PA Work Phone: [facility] 06-21-2024 13:31-0500 Diastolic blood pressure 72 mm[Hg] Little Schaumburg PA Work Phone: [facility] 06-21-2024 13:31-0500 Systolic blood pressure 116 mm[Hg] Little Ezra PA Work Phone: [facility] 06-07-2024 13:49-0500 Body mass index (BMI) [Ratio] 34.61 kg/m2 Berto Luis DO Work Phone: [facility] 06-07-2024 13:49-0500 Body weight 94.35 kg Berto Luis DO Work Phone: [facility] 06-07-2024 13:49-0500 Diastolic blood pressure 70 mm[Hg] Berto Luis DO Work Phone: [facility] 06-07-2024 13:49-0500 Systolic blood pressure 120 mm[Hg] Berto Luis DO Work Phone: [facility] 05-24-2024 14:26-0500 Body mass index (BMI) [Ratio] 33.75 kg/m2 Little Ezra PA Work Phone: [facility] 05-24-2024 14:26-0500 Body weight 91.99 kg Little Schaumburg PA Work Phone: [facility] 05-24-2024 14:26-0500 Diastolic blood pressure 70 mm[Hg] Little Ezra PA Work Phone: [facility] 05-24-2024 14:26-0500 Systolic blood pressure 108 mm[Hg] Little Ezra PA Work Phone: [facility] 05-09-2024 11:44-0500 Body mass index (BMI) [Ratio] 33.28 kg/m2 Berto Luis DO Work Phone: [facility] 05-09-2024 11:44-0500 Body weight 90.72 kg Berto Luis DO Work Phone: [facility] 05-09-2024 11:44-0500 Diastolic blood pressure 64 mm[Hg] Berto Luis DO Work Phone: [facility] 05-09-2024 11:44-0500 Systolic blood pressure 118 mm[Hg] Berto Luis DO Work Phone: [facility] 04-11-2024 10:37-0400 Body mass index (BMI) [Ratio] 31.12 kg/m2 Little hCristie PA Work Phone: [facility] 04-11-2024 10:37-0400 Body weight 84.82 kg Little Christie PA Work Phone: [facility] 04-11-2024 10:37-0400 Diastolic blood pressure 68 mm[Hg] Little Schaumburg PA Work Phone: [facility] 04-11-2024 10:37-0400 Systolic blood pressure 116 mm[Hg] Little Ezra PA Work Phone: [facility] 03-14-2024 11:44-0400 Body mass index (BMI) [Ratio] 28.62 kg/m2 Berto Luis DO Work Phone: [facility] 03-14-2024 11:44-0400 Body weight 78.02 kg Berto Luis DO Work Phone: [facility] 03-14-2024 11:44-0400 Diastolic blood pressure 74 mm[Hg] Berto Luis DO Work Phone: [facility] 03-14-2024 11:44-0400 Systolic blood pressure 118 mm[Hg] Berto Luis DO Work Phone: [facility] 02-27-2023 14:39-0400 Blood Pressure Location Gary MORRIS [facility] [place] 02-27-2023 14:39-0400 Diastolic blood pressure 66 mm[Hg] Gary MORRIS [facility] [place] 02-27-2023 14:39-0400 Heart rate 70 /min Gary MORRIS [facility] [place] 02-27-2023 14:39-0400 Respiratory rate 16 /min Gary MORRIS [facility] [place] 02-27-2023 14:39-0400 Systolic blood pressure 106 mm[Hg] Gary DANGELOL [facility] [place] 01-08-2022 08:09-0400 Body temperature 98.01 [degF] Wiley Rice DO Work Phone: [employer] 01-08-2022 08:09-0400 Body weight 75.75 kg Wiley Rice DO Work Phone: [employer] 01-08-2022 08:09-0400 Diastolic blood pressure 71 mm[Hg] Wiley Rice DO Work Phone: [employer] 01-08-2022 08:09-0400 Heart rate 98 /min Wiley Rice DO Work Phone: [employer] 01-08-2022 08:09-0400 Systolic blood pressure 112 mm[Hg] Wiley Rice DO Work Phone: [employer] 12-10-2021 14:45-0400 Body height 166.37 cm Bret Long Other [employer] Other 12-10-2021 14:45-0400 Body mass index (BMI) [Ratio] 26.55 kg/m2 Bret Long Other [employer] Other 12-10-2021 14:45-0400 Body weight 73.48 kg Bret Long Other [employer] Other 12-10-2021 14:45-0400 Diastolic blood pressure 72 mm[Hg] Bret Long Other [employer] Other 12-10-2021 14:45-0400 Systolic blood pressure 103 mm[Hg] Bret Long Other [employer] Other 11-27-2021 14:01-0400 Body temperature 98.4 [degF] Wiley Rice DO Work Phone: [employer] 11-27-2021 14:01-0400 Body weight 74.84 kg Wiley Rice DO Work Phone: [facility] 11-27-2021 14:01-0400 Diastolic blood pressure 64 mm[Hg] Wiley Rice DO Work Phone: [facility] 11-27-2021 14:01-0400 Heart rate 98 /min Wiley Rice DO Work Phone: [employer] 11-27-2021 14:01-0400 Systolic blood pressure 121 mm[Hg] Wiley Rice DO Work Phone: [facility] 12-05-2020 19:26-0400 Heart rate 106 /min James Breece PA-C Work Phone: [facility] 12-05-2020 19:25-0400 Body temperature 98.29 [degF] James Breece PA-C Work Phone: [facility] 12-05-2020 19:25-0400 Body weight 97.98 kg James Breece PA-C Work Phone: [facility] 12-05-2020 19:25-0400 Diastolic blood pressure 86 mm[Hg] James Breece PA-C Work Phone: [facility] 12-05-2020 19:25-0400 Respiratory rate 16 /min James Churchill PA-C Work Phone: [facility] 12-05-2020 19:25-0400 SaO2% (BldA) [Mass fraction] 97 % James Churchill PA-C Work Phone: [facility] 12-05-2020 19:25-0400 Systolic blood pressure 126 mm[Hg] James Churchill PA-C Work Phone: [facility] Encounters Encounter Date Encounter Type Care Provider Facility Start: 07-27-2024 End: 07-27-2024 Bamboo flowsheet Little LOWRY Work Phone: [facility] Start: 07-27-2024 End: 07-27-2024 Bamboo flowsheet Little LOWRY Work Phone: [facility] Start: 07-27-2024 End: 07-27-2024 Office outpatient visit 15 minutes Little LOWRY Work Phone: [facility] Comment on above: Third trimester preg lenin; 38 weeks gestation of Start: 07-18-2024 End: 07-18-2024 Bamboo flowsheet Berto Luis DO Work Phone: [facility] Start: 07-18-2024 End: 07-23-2024 Bamboo flowsheet Berto Luis DO Work Phone: [facility] Start: 07-18-2024 End: 07-23-2024 Clinisync Result Encounter Berto Luis DO Work Phone: [facility] External Department Unsolicited Start: 07-18-2024 End: 07-18-2024 Office outpatient visit [...] Result Encounter Berto Luis DO Work Phone: [facility] External Department Unsolicited Start: 07-04-2024 End: [...] visit 15 minutes Little LOWRY Work Phone: [facility] Comment on above: Third trimester preg lenin; 29 weeks gestation of ; Upper respiratory tract infection, unspecified type Start: 05-24-2024 End: 05-24-2024 ambulatory LITTLE CHRISTIE Not Available Start: 05-24-2024 End: 05-24-2024 Bamboo flowsheet Little LOWRY Work Phone: [facility] Start: 05-24-2024 End: 05-24-2024 Bamboo flowsheet Little LOWRY Work Phone: [facility] Start: 05-09-2024 End: 05-09-2024 Bamboo flowsheet Berto Luis DO Work Phone: [facility] Start: 05-09-2024 End: 05-09-2024 Bamboo flowsheet Berto Luis DO Work Phone: [facility] Start: 05-09-2024 End: 05-09-2024 Office outpatient visit 15 minutes Berto Luis DO Work Phone: [facility] Comment on above: Second trimester pre gnancy; 26 weeks gestation of ; History of miscarriage Start: 05-09-2024 End: 05-09-2024 ambulatory BERTO LUIS Not Available Start: 04-11-2024 End: 04-11-2024 Bamboo flowsheet Little LOWRY Work Phone: [facility] Start: 04-11-2024 End: 04-11-2024 Bamboo flowsheet Little LOWRY Work Phone: [facility] Start: 04-11-2024 End: 04-11-2024 Office outpatient visit 15 minutes Little LOWRY Work Phone: [facility] Comment on above: [...] Alexandra/Chris Kang Start: 02-23-2023 ambulatory Alexandr Bourgeois Facility:[facility] Start: 02-05-2023 ambulatory Gary MORRIS Facility:[facility] [...] . Facility:[facility] Start: 02-18-2022 ambulatory WILEY HARPERE M~[id number] [facility] Start: 02-12-2022 ambulatory WILEYNigel HARPERE M~[id number] [facility] Start: 02-12-2022 End: 02-12-2022 Telemedicine consultation with patient Wiley Huffman Rice DO Work Phone: [facility] Comment on above: Anxiety (Primary Dx) Start: 01-19-2022 Refill Luis Dipalma D O Work Phone: [facility] Start: 01-19-2022 Refill Luis Dipalma D O Work Phone: [facility] Start: 01-08-2022 End: 01-08-2022 ambulatory WILEYNigel HARPERE M~[id number] [facility] Start: 01-08-2022 End: 01-08-2022 Office outpatient visit 25 minutes Wiley Nathanael Rice DO Work Phone: [facility] Comment on above: Anxiety (Primary Dx) ; Hypotension, unspecified hypotension type Start: 01-08-2022 End: 01-08-2022 Patient encounter procedure Wiley M Rice DO Work Phone: [facility] Start: 12-11-2021 End: 12-11-2021 ambulatory WILEYNigel HARPERE M~[id number] [facility] Start: 12-10-2021 End: 12-10-2021 ambulatory Bret Long Other [employer] Other Start: 12-10-2021 Office outpatient ne w 45 minutes Bret Long [facility] G[facility] Start: 11-27-2021 End: 11-27-2021 ambulatory WILEY Huffman~[phone] [facility] Start: 11-27-2021 End: 11-27-2021 Office outpatient new 30 minutes Wiley Osorio DO Work Phone: [facility] Comment on above: Anxiety (Primary Dx) Start: 11-27-2021 End: 11-27-2021 Patient encounter procedure Wiley Osorio DO Work Phone: [facility] Start: 11-25-2021 Telephone encounter Dana Kinsey [facility] Start: 12-05-2020 End: 12-05-2020 ambulatory PHYSICIAN NO [facility] Start: 12-05-2020 End: 12-05-2020 Office outpatient new 20 minutes James DENNYC Work Phone: [facility] Comment on above: Vaginal sore (Primar y Dx) Start: 02-19-2017 End: 02-19-2017 Emergency department patient visit KIM Alfonso [facility] Procedures Date Procedure Procedure Detail Performing Clinician Start: 07-18-2024 Urnls dip stick/tabl et rgnt non-auto w/o micrscp Berto Luis DO Work Phone: Start: 07-18-2024 ALL MISCELLANEOUS TEST Berto Luis DO Work Phone: Start: 07-04-2024 [...] Treatment Date Care Activity Detail Author Start: 08-01-2024 End: 08-01-2024 Patient encounter procedure 08/01/2024 1:20 PM EST Routine [facility] [address] [place] [address] Berto Smith, DO [address] [place] [address] [facility] Start: 07-27-2024 End: 07-27-2024 Patient encounter procedure 07/27/2024 8:50 AM EST Routine [facility] [address] [place] [address] Little Christie PA [address] [place] [address] [facility] Start: 07-18-2024 End: 07-18-2025 [...] AM EST Routine [facility] [address] [facility] [address] Little Christie, PA [address] [place] [address] [facility] Start: 06-21-2024 End: 06-21-2024 Patient encounter procedure 06/21/2024 1:20 PM EST Routine [facility] [address] [place] [phone] Little Christie, PA [address] [place] [address] [facility] Start: 06-07-2024 End: 06-07-2024 Patient encounter procedure 06/07/2024 1:30 PM EST Routine [facility] [address] [place] [phone] Berto Smith DO [address] [place] [address] [facility] Start: 05-24-2024 End: 05-24-2024 Patient encounter procedure 05/24/2024 2:10 PM EST Routine [facility] [address] [place] [address] Little Christie PA [address] [place], [place] [id number] Arrived [facility] Comment on above: Arrived Start: 05-23-2024 End: 05-23-2024 Patient encounter procedure 05/23/2024 1:50 PM EST Routine [facility] [address] [place] [address] Little Christie PA [address] [place], [place] [id number] [facility] Start: 05-09-2024 End: 05-09-2025 US biophysical profile w non stress test US biophysical profile w non stress test Imaging Routine Second trimester 26 weeks gestation of History of miscarriage Expected: 05/09/2024 (Approximate), Expires: 05/09/2025 [facility] Work Phone: Comment on above: [...] mellitus screening Expected: 04/11/2024 (Approximate), Expires: 04/11/2025 [facility] Work Phone: Comment on above: Expected: 04/11/2024 (Approximate), Expires: 04/11/2025 Start: 04-11-2024 End: 04-11-2025 Measurement of glucose 1 hour after glucose challenge for glucose tolerance test Glucose tolerance, 1 hour Lab Routine Diabetes mellitus screening Expected: 04/11/2024 (Approximate), Expires: 04/11/2025 [facility] Healthcare Comment on above: Expected: 04/11/2024 (Approximate), Expires: 04/11/2025 Start: 04-11-2024 End: 04-11-2024 Patient encounter procedure [facility] Comment on above: Arrived Start: 03-14-2024 End: 03-14-2024 Patient encounter procedure 03/14/2024 11:20 AM EDT Routine [facility] [address] [place] [phone] Berto Smith, DO [address] [place] [address] Arrived [facility] Comment on above: Arrived Start: 03-06-2024 Influenza vaccination Influenza Vacc ine (#1) [facility] Start: 11-27-2022 Adolescent depressio n screening assessment Depression Screening [facility] Start: 03-06-2022 Influenza vaccination T [facility] Start: 02-07-2022 End: 02-07-2022 Patient encounter procedure 02/07/2022 Office Visit [facility] Medicine Wiley Osorio, DO [address] [place] [phone] [facility] Start: 12-19-2021 End: 12-19-2021 Patient encounter procedure 12/19/2021 Office Visit Family Wiley Benton DO [address] [place] [phone] [facility] Start: 12-07-2021 COVID-19 Vaccine (3 - Booster for Moderna series) COVID-19 Vaccine (3 - Booster for Moderna series) [facility] Start: 11-27-2021 End: 11-27-2021 Patient encounter procedure 11/27/2021 Office Visit [facility] Wiley Osorio DO [address] [place] [address], [place] [address] [facility] Start: 11-24-2021 Adolescent depressio n screening assessment Depression Screening [facility] Start: 11-24-2021 Hepatitis C screening Hepatitis C Sc reening [facility] Start: 11-24-2021 HIV screening HIV Screening [facility] Start: 11-24-2021 Social Influencers o f Health Screening Social Influencers of Health Screening [facility] Start: 03-06-2021 Influenza vaccination Sequenti al Influenza Vaccine (Season Ended) [facility] Start: 2017 Screening for malign ant neoplasm of cervix Cervical Cancer Screening: Pap Smear [facility] Start: 2015 DTaP,Tdap,and Td Vaccines (1 - Tdap) DTaP,Tdap,and Td Vaccines (1 - Tdap) [facility] Start: 2014 Hepatitis C screening Hepatitis C Sc reening [facility] Start: 2011 HIV screening HIV Screening [facility] Start: 2008 COVID-19 Vaccine (1) COVID-19 Vaccin e (1) [facility] Start: 2008 Depression screening using PHQ-9 (Patient Health Questionnaire 9) score Depression Screening (PHQ9) [facility] Start: 2007 HPV Vaccines (1 - 2- dose series) HPV Vaccines (1 - 2-dose series) [facility] Start: 2007 Vaccination for april n papillomavirus HPV Vaccines (1 - 2-dose series) [facility] Start: 2001 COVID-19 Vaccine (1) COVID-19 Vaccin e (1) [facility] Start: 1999 History and physical examination, annual for health maintenance Wellness Visit [facility] Start: 1996 Screening for Chlamy marilee trachomatis Chlamydia Screening [facility] Start: 1996 Screening for malign ant neoplasm of cervix Pap Smear [facility] Start: 1996 Tetanus vaccination Tetanus: Every 1 0yrs [facility] Chlamydia trachomati s rRNA assay Chlamydia/GC/Trichomona s Amplified RNA Microbiology Routine Vaginal sore Ordered: 12/05/2020 [facility] Comment on above: Ordered: 12/05/2020 HSV by PCR Superfici al Site HSV by PCR Superficial Site Lab Routine Vaginal sore Ordered: 12/05/2020 [facility] Comment on above: Ordered: 12/05/2020 Neisseria gonorrhoea e nucleic acid detection Chlamydia/Gonorrhoeae Amplified RNA Microbiology Routine Vaginal sore Ordered: 12/05/2020 [facility] Comment on above: Ordered: 12/05/2020 Trichomonas vaginali s Amplified RNA Trichomonas vaginalis Amplified RNA Microbiology Routine Vaginal sore Ordered: 12/05/2020 [facility] Comment on above: Ordered: 12/05/2020 Immunizations Immunization Date Immunization Notes Care Provider Fa day[facility] 07-09-2021 SARS-CoV-2 (COVID-19 ) mRNA-1273 vaccine Gary MORRIS [facility] 06-08-2021 SARS-CoV-2 (COVID-19 ) mRNA-1273 vaccine Gary MORRIS [facility] [place] 04-10-2011 influenza virus vaccine, unspecified formulation Berto Luispriscilla RUBY Work Phone: [facility] Healthcare Payers Date Payer Category Payer Private Health Insurance [facility] MEDICAID [id number] 2021 Medicaid [id number] 2020 Medicaid [id number]. [id number] 2016 Unknown [id number] 2013 Unknown [id number] 1996 Unknown [id number] 2.16.840.1.014077.3.579.2. 903 1996 Unknown [id number] 2.16.840.1.230452.3.579.2. 1143 1996 Unknown [id number] 2.16.840.1.957114.3.579.2. 1143 1996 Unknown [id number] 2.16.840.1.882873.3.579.2. 1143 1996 Unknown [id number] 2.16.840.1.578045.3.579.2. 1143 1996 Unknown [id number] 2.16.840.1.576356.3.579.2. 1143 1996 Unknown [id number] 2.16.840.1.609124.3.579.2. 593 1996 Unknown [id number] 2.16.840.1.184337.3.579.2. 593 1996 Unknown [id number] 2.16.840.1.843653.3.579.2. 593 1996 Unknown [id number] 2.16.840.1.005917.3.579.2. 593 1996 Unknown [id number] 2.16.840.1.529607.3.579.2. 593 1996 Unknown [id number] 2.16.840.1.482141.3.579.2. 593 1996 Unknown [id number] 2.16.840.1.150457.3.579.2. 593 1996 Unknown [id number] 2.16.840.1.809023.3.579.2. 727 1996 Unknown [id number] 2.16.840.1.246068.3.579.2. 1286 1996 Unknown [id number] 2.16.840.1.289069.3.579.2. 1286 1996 Unknown [id number] 2.16.840.1.382675.3.579.2. 9 1996 Unknown [id number] 2.16.840.1.450432.3.579.2. 1258 1996 Unknown [id number] 2.16.840.1.104959.3.579.2. 1258 1996 Unknown [id number] 2.16.840.1.273015.3.579.2. 1258 1996 Unknown [id number] 2.16.840.1.857415.3.579.2. 1258 1996 Unknown [id number] 2.16.840.1.396153.3.579.2. 1258 1996 Unknown [id number] 2.16.840.1.678203.3.579.2. 1258 1996 Unknown [id number] 2.16.840.1.825201.3.579.2. 1258 1996 Unknown [id number] 2.16.840.1.137671.3.579.2. 1258 1996 Unknown [id number] 2.16.840.1.272050.3.579.2. 1258 1996 Unknown [id number] 2.16.840.1.705453.3.579.2. 1258 1996 Unknown [id number] 2.16.840.1.301061.3.579.2. 125 1960 Unknown [id number] 2.16.840.1.392559.3.579.2. 727 1959 Medicaid [id number] 1959 Self-pay 1959 Unknown [id number] 1959 Unknown [id number] 1959 Unknown [id number] Unknown [id number] 2.16.840.1.897022.3.579.2. 531 Social History Date Type Detail Facility Start: 12-05-2020 End: 02-27-2023 Tobacco smoking status NHIS Never smoker [facility]: 12-05-2020 End: 11-27-2021 Tobacco use and exposure Never used [facility] Start: 12-05-2020 Alcohol intake Current drinke r of alcohol (finding) [facility] Start: 12-05-2020 End: 11-27-2021 History SDOH Alcohol Frequency 1 [facility] Start: 12-05-2020 Alcohol Comment occ [facility] Start: 1996 Sex Assigned At Not on file [facility] Start: 11-17-2021 End: 02-12-2022 Exposure to SARS-CoV-2 (event) Not sure [facility] Tobacco smoking stat [facility] Tobacco smoking consumption unknown [facility] Start: 11-27-2021 End: 07-27-2024 Alcohol intake Lifetime non-drinker (finding) [facility] Start: 1996 Sex Assigned At Female T [facility] Start: 12-17-2023 Sex Assigned At F [facility] Tobacco smoking status Never [facility] Start: 03-28-2023 Tobacco smoking stat [facility] Ex-smoker [facility] History of tobacco use Current smoker [facility] History of tobacco use Cigarette Smoker [facility] Start: 12-17-2023 History of Social function [facility] Start: 11-17-2023 [facility] Start: 01-19-2023 Gender identity Identifies as female gender (finding) [facility] Functional Status Date Assessment Result Facility 02-27-2023 Functional Status N/A General [facility] Clinical Notes 12-05-2020 to 07-27-2024 ESSENCE Haley - 07/27/2024 8:50 AM Nahid Tse LPN - 07/18/2024 10:00 AM ESSENCE Mahan - 07/04/2024 11:50 AM ESSENCE Mahan - 06/21/2024 1:20 PM Zohreh Bradley LPN - 06/07/2024 1:20 PM EST Note Date & Type Note Facility 07-27-2024 History of Present illness Narrative Reason for Appointment: Patient ID: Leslie Ford is a 29 y.o. female who presents for Routine Visit Patient presents today for Return OB appointment. MEDICATIONS Current Outpatient Medications Medication Instructions aspirin 81 mg, Daily RT omeprazole (PRILOSEC) 20 mg, Oral, Daily before breakfast, Do not crush or chew. ondansetron ODT (ZOFRAN-ODT) 4 mg, Every 8 hours PRN ondansetron ODT (ZOFRAN-ODT) 4 mg, Oral, Every 6 hours PRN Vit-Fe Fumarate-FA ( Plus/Iron) 27-1 [...] reviewed. Vitals: Estimated body mass index is 37.67 kg/m as calculated from the following: Height as of 02/02/23: 5' 5 . Weight as of this encounter: 226 lb 6.4 oz. BP: 118/70 Patient's last menstrual period was 11/03/2023. ASSESSMENT & PLAN ICD-10-CM 1. Third trimester Z34.93 2. 38 weeks gestation of Z3A.38 Return OB: Patient presents today for a routine obstetrics appointment. Patient is currently 38w1d . Patient states she is doing well but has complaints of being tired due to current . Patient has verbalizes frequent movement. labor precautions was discussed/given and patient was instructed to perform kick counts three times a day. No orders of the defined types were placed in this encounter. Follow Up: Patient is to return to office in 1 week for routine OB appointment. Documented by ESSENCE Haley on behalf of: ESSENCE Haley documented in this encounter [facility] 07-18-2024 History of Present illness Narrative Reason [...] nursing note reviewed. Exam conducted with a tectonophysicist present. Vitals: Estimated body mass index is [...] Berto Smith DO documented in this encounter [facility] 07-04-2024 History of Present illness [...] nursing note reviewed. Exam conducted with a tectonophysicist present. Vitals: Estimated body mass index is [...] ESSENCE Haley documented in this encounter [facility] 06-21-2024 History of Present illness [...] nursing note reviewed. Exam conducted with a tectonophysicist present. Vitals: Estimated body mass index is [...] Little Christie PA-C documented in this encounter [facility] 06-07-2024 History of Present illness [...] nursing note reviewed. Exam conducted with a tectonophysicist present. Vitals: Estimated body mass index is [...] Berto Smith DO documented in this encounter [facility] 05-24-2024 History of Present illness [...] ESSENCE Haley documented in this encounter [facility] 05-09-2024 History of Present illness [...] nursing note reviewed. Exam conducted with a tectonophysicist present. Vitals: Estimated body mass index is [...] Berto Smith DO documented in this encounter [facility] 04-11-2024 History of Present illness [...] ESSENCE Haley documented in this encounter [facility] 03-14-2024 History of Present illness [...] nursing note reviewed. Exam conducted with a tectonophysicist present. Vitals: Estimated body mass index is [...] Berto Smith DO documented in this encounter [facility] 02-27-2023 Note Chief Complaint consultation [...] with excisional biopsy under local anesthesia at [facility]; call with problems/questions. Follow-up No [...] Recorded SARS-CoV-2 (COVID-19) mRNA-1273 vaccine 06/08/2021 Recorded [facility] Comment on above: Result [...] at later date. documented in this encounter [facility] 01-08-2022 History of Present illness Narrative bp's [...] due to buspirone. documented in this encounter [facility] 12-10-2021 Evaluation note Encounter Date Diagnosis Assessment Notes Dec, Irritable bowel syndrome with diarrhea (ICD-10 - K58.0) Continue medications without change Dec, Epigastric pain (ICD-10 - R10.13) Dec, Chronic nausea (ICD-10 - R11.0) Dec, Family history of carcinoma in situ of anal canal (ICD-10 - Z84.89) Dec, Other Continue Cari moralesn Pt to call if symptoms worsen [employer] Other 05-25-2022 History of Present illness Narrative* Wiley M Devon, DO - 11/27/2021 2:00 PM EDT Subjective Patient ID: Leslie Ford is a 26 y.o. female. Chief Complaint Patient presents with [facility] 26 [facility].o. female [facility]. History of anxiety and depression. Has [...] it ( July 2017) [facility] [id number] History of Present illness Narrative* Dana Rosario [...] like me to do? documented in this [facility]06[facility] History of Present illness Narrative* James Churchill PA-C - 12/05/2020 8:22 PM EDT Images from the original note were not included. Patient Name: [facility] [address] Date Of : Date Of Visit: 1995 12/05/2020 MRN# Provider: [id number] James Churchill PA-C Chief Complaint Patient presents [...] urine from irritatingthe sores. ? Take an ibjr-cqc-muymfkp pain medicine, such as acetaminophen (Tylenol), ibuprofen [...] Log into your personal health record on [email or web address] and enter E579 in the Education box to learn more about Genital Herpes: Care Instructions. Current as of: August 31, 2019 Content Version: 12.8 [employer]. Care instructions adapted under license by your healthcare professional. If you have questions about a medical condition or this instruction, always ask your healthcare professional. [employer] disclaims any warranty or liability for your use of this information. documented in this [id number] Instructions* Patient Instructions* James Churchill PA-C - [...] urine from irritatingthe sores. ? Take an gcgc-aow-bpomdde pain medicine, such as acetaminophen (Tylenol), ibuprofen [...] Log into your personal health record on [email or web address] and enter [email or web address] in the Education box to learn more about Genital Herpes: Care Instructions. Current as of: August 31, 2019 Content Version: 12.8 [employer]. Care instructions adapted under license by your healthcare professional. If you have questions about a medical condition or this instruction, always ask your healthcare professional. [employer] disclaims any warranty or liability for your use of this information. documented in this encounter[facility]HealthEvaluation + Plan note No data available for this section [facility] Evaluation note* Diagnosis Vaginal sore- Primary [facility] Diagnosis Anxiety- Primary Anxiety state, unspecified [facility] Diagnosis Anxiety- Primary Anxiety state, unspecified Hypotension, unspecified hypotension type [facility]* Diagnosis Anxiety- Primary Anxiety state, unspecified [facility]* Diagnosis Second trimester state, incidental 22 weeks gestation of Diabetes mellitus screening Screening for diabetes mellitus documented in this encounter [facility] HealthcareEvaluation note* Diagnosis Second trimester state, incidental 26 weeks gestation of History of miscarriage Personal history of other genital system and obstetric disorders documented in this encounter [facility] HealthcareEvaluation note* Diagnosis 31 weeks gestation of Third trimester state, incidental Gastroesophageal reflux in documented in this encounter [facility] HealthcareEvaluation note* Diagnosis Third trimester state, incidental 33 weeks gestation of documented in this encounter [facility] Healthcare[facility] note* Diagnosis Second trimester state, incidental documented in this encounter [facility]Evaluation note* Diagnosis Third trimester state, incidental 29 weeks gestation of Upper respiratory tract infection, unspecified type documented in this encounter [facility] Healthcare[facility] note* Diagnosis Third trimester state, incidental 34 weeks gestation of documented in this encounter [facility] note* Diagnosis 36 weeks gestation of Third trimester state, incidental H/O cold sores documented in this encounter [facility] Healthcare[facility] note* Diagnosis Third trimester state, incidental 38 weeks gestation of documented in this encounter [facility] Narrative - Reported* Type Description Date Medical History [facility] [employer] Other Hospital Discharge instructions No data available for this section [facility] Progress note No data available for this section [facility] [place] Summary Purpose Family History No Family History Records FoundNo Family History Records FoundNo Family History Records FoundNo Family History Records FoundNo Family History Records FoundNo Family History Records FoundNo Family History Records FoundNo Family History Records FoundNo Family History Records Found Advance Directives Documents on File Type Date Recorded 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 Advance Directives and Living Will Documents on File Type Date Recorded 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 Power of Roof Assembler Additional Source Comments INFORMATION SOURCE (unrecogn ized section and content) DATE CREATED AUTHOR 12/30/2017 [facility] DATE CREATED AUTHOR AUTHOR'S ORGANIZ ATION 12/06/2020 [facility] DATE CREATED AUTHOR AUTHOR'S ORGANIZ ATION 02/16/2022 [facility] DATE CREATED AUTHOR AUTHOR'S ORGANIZ ATION 02/27/2022 [facility] DATE CREATED AUTHOR AUTHOR'S ORGANIZ ATION 11/14/2022 [facility] DATE CREATED AUTHOR AUTHOR'S ORGANIZ ATION 03/02/2023 [facility] DATE CREATED AUTHOR AUTHOR'S ORGANIZ ATION 07/05/2023 [facility] DATE CREATED AUTHOR AUTHOR'S ORGANIZ ATION 03/25/2024 [facility] DATE CREATED AUTHOR AUTHOR'S ORGANIZ ATION 07/21/2024 [facility] dical Specialists EPIC Reason for Visit [...] Care Teams (unrecognized sec tion and content) Operations Mgr Relationship Specialty Start Date End Date Wiley Osorio DO [address] [place] [address] PCP - General Family Medicine 11/27/21 Operations Mgr Relationship Specialty Start Date End Date Wiley Osorio, DO [address] [place] [address] PCP - General Family Medicine 11/27/21 Operations Mgr Relationship Specialty Start Date End Date Devon Wiley Huffman, DO [address] [place] [address] PCP - General Family Medicine 11/27/21 Operations Mgr Relationship Specialty Start Date End Date Homar Beltran MD [address] [place] [facility] [place] [address] PCP - General Family Medicine 01/20/23 Operations Mgr Relationship Specialty Start Date End Date Homar Beltran MD [address] [place] [facility] [place] [address] PCP - General Family Medicine 01/20/23 Operations Mgr Relationship Specialty Start Date End Date Homar Beltran MD [address] [place] [facility] [place] [address] PCP - General Family Medicine 01/20/23 Operations Mgr Relationship Specialty Start Date End Date Homar Beltran MD [address] [facility] [place] [address] PCP - General Family Medicine 01/20/23 Operations Mgr Relationship Specialty Start Date End Date Homar Beltran MD [address] [place] [facility] [place] [address] PCP - General Family Medicine 01/20/23 Operations Mgr Relationship Specialty Start Date End Date Homar Beltran MD [address] [place] [facility] [place] [address] PCP - General Family Medicine 01/20/23 Operations Mgr Relationship Specialty Start Date End Date Homar Beltran MD [address] [place] [facility] [place] [address] PCP - General Family Medicine 01/20/23 Operations Mgr Relationship Specialty Start Date End Date Homar Beltran MD [address] [place] [facility] [place] [address] PCP - General Family Medicine 01/20/23 Operations Mgr Relationship Specialty Start Date End Date Homar Beltran MD [address] [place] [facility] [place] [address] PCP - General Family Medicine 01/20/23 Operations Mgr Relationship Specialty Start Date End Date Homar Beltran MD [address] [place] [facility] [place] [address] PCP - General Family Medicine 01/20/23 Operations Mgr Relationship Specialty Start Date End Date Homar Beltran MD [address] [place] [facility] [place] [address] PCP - General Family Medicine 01/20/23 FOR [...] PRIMARY CLINICAL RECORDS. [facility] [facility]. provides no warranty or guarantee of the accuracy or completeness of information in this document.
[2024-07-28 09:56] VITALS: BP 124/82; PULSE 86
== END 2024-07-28 10:29 | disposition home or self-care (01) ==
LOC: FBCO 01:27 → FBC 09:54
PROVIDERS: PCP Family Medicine; Visit Provider Obstetrics & Gynecology
DX: Z87.59 Personal history of other complications of pregnancy, childbirth and the puerperium (principal); Z3A.38 38 weeks gestation of pregnancy
CPT/HCPCS: 76815; 76818

== ENCOUNTER 2024-08-03 05:26 | Inpatient (IN) | payer OTHER, SELFPAY ==
[2024-08-03] VITALS (28 sets, daily range): BP systolic 107–137; BP diastolic 57–82; PULSE 64–96; TEMP 36–36.9
--- OUTSIDE RECORDS SUMMARY | 2024-08-03 05:30 | XMS_ITS | CCD ---
Author Organization [facility] Care Team Providers Care Laboratory Analyst Name Role Phone KIM SUTHERLAND Unavailable Unavailable WILLY CONKLIN Unavailable Unavailable HOMAR BELTRAN Unavailable Unavailable HOMAR BELTRAN Unavailable Unavailable No, Physician Primary Care Provider Unavailsuman e FINN, PHYSICIAN Primary Care Unavailable JAMES ALCAZAR Attending Unavailable Unavailable Primary Care Provider Unavailsuman e Queta Osorio DO Primary Care Provider [phone] Bret Long Unavailable RICE RICE, QUETA QUETA M~[id number] Attending Unavailable RICE RICE, QUETA QUETA M~[id number] Primary Ca re Unavailable RICE RICE, QUETA QUETA M~[id number] Attending Unavailable RICE RICE, QUETA QUETA M~[id number] Primary Ca re Unavailable RICE RICE, QUETA QUETA M~[id number] Attending Unavailable RICE RICE, QUETA QUETA M~[id number] Primary Ca re Unavailable RICE RICE, QUETA QUETA M~[id number] Attending Unavailable RICE RICE, QUETA QUETA M~[id number] Primary Ca re Unavailable RICE RICE, QUETA QUETA M~[id number] Referring Unavailable RICE RICE, QUETA QUETA M~[id number] Primary Ca re Unavailable ITA REYES Admitting [...] Care Unavailable CLAUDE KHAN Primary Care Physician [phone] Gary MORRIS Attending Unavailable ChristelleAlexandr graham Attending Unavailab Alexandr Ventura Admitting Unavailab Homar Mcgowan Primary Care Unavailable LUIS, KATELYN Dante Referring Unavailable HOMAR BELTRAN Primary Care Unavailable SENAIT MARTIN Attending Unavailable LUIS, KATELYN R Referring Unavailable HOMAR BELTRAN Primary Care Unavailable Hoamr Beltran MD Primary Care Provider [phone] SHAHNAZ, LITTLE Attending Unavailable LUIS, KATELYN Attending Unavailable SHAHNAZ, LITTLE Attending Unavailable LUIS, KATELYN Attending Unavailable SHAHNAZ, LITTLE Attending Unavailable LUIS, KATELYN Attending Unavailable SHAHNAZ, LITTLE Attending Unavailable LUIS, KATELYN Attending Unavailable SHAHNAZ, LITTLE Attending Unavailable LUIS, KATELYN Attending Unavailable SHAHNAZ, LITTLE Attending Unavailable SHAHNAZ, LITTLE Attending Unavailable LUIS, KATELYN Attending Unavailable Allergies Allergy Classification Reported Allergen(s) Allergy Type Date of Onset Reaction(s) Facility (1 source) No Known Medication Allergies; Translations: [No Known Medication Allergies] Propensity to adverse reactions (disorder) [facility] Repository Medications Current Medications Medication Drug [...] 03/09/2022 Active valACYclovir 500 mg oral tablet (10 sources) Herpesvirus Nucleoside Analog DNA Polymerase Inhibitor, [...] sources) Anxiety; Translations: [Anxiety disorder, unspecified] Onset: 05-11-202 3 Chronic Deficiency and other anemia (1 [...] frontal sinusitis; Translations: [Upper respiratory infection] Onset: Episodic Residual codes; unclassified (1 source) Chronic [...] of ] 05-24-2024 Episodic Residual codes; unclassified (15 sources) Gestation period, 34 weeks; Translations: [34 weeks gestation of ] Onset: 4 07-04-2024 Episodic Residual codes; unclassified (2 sources) Gestation period, 36 weeks; Translations: [36 weeks gestation of ] 07-18-2024 Episodic Residual codes; unclassified (4 sources) Gestation period, 38 weeks; Translations: [38 [...] Range Facility Urinalysis macro (dipstick) panel (U)on 08-01-2024 Bilirubin, UA Negative Negative - 4(70) +++ mg/dL [facility] Blood, UA Negative Negative - 50 Angel Luis/mcL [facility] Clarity, UA Clear [facility] Color, UA Yellow [facility] Glucose, UA Negative Negative - 1999(110) ++++ mg/dL [facility] Interpretation and review of laboratory results Abnormal [facility] Ketones, UA Negative Negative - 160(16) ++++ mg/dL [facility] Leukocytes, UA Negative Negative - 500+++ Drew/mcL [facility] Nitrite, UA Negative Negative - Positive [facility] pH, UA 6 5 - 9 [facility] Protein, UA Trace Negative - 1999(20) ++++ mg/dL [facility] Spec Grav, UA 1.03 1 - 1.03 [facility] Urobilinogen, UA 0.2 0.2 - 12 mg/dL [facility] ALL MISCELLANEOUS TESTon MISCELLANEOUS TEST COMMENT . [facility] Comment on above: Test Ordered: [id number] Strep Gp B Culture+Rflx Strep Gp B Culture+Rflx Negative CB Reference Range: Negative Centers for Disease Control and Prevention (CDC) and [place] [employer] of Obstetricians and Gynecologists (ACOG) guidelines [...] resistance to clindamycin is noted. Performed at: [facility] [id number] Flower Machine Operator: Agustín Hernandez PhD, Phone: [phone] GROUP B STREP [id number] Group B Streptococcus Colonization Detection Culture With Re [facility] Urinalysis macro (dipstick) panel (U)on 07-18-2024 Bilirubin, UA Negative Negative - 4(70) +++ mg/dL [facility] Blood, UA Negative Negative - 50 Angel Luis/mcL [facility] Clarity, UA Clear [facility] Color, UA Miryam [facility] Glucose, UA Negative Negative - 2000(110) ++++ mg/dL [facility] Interpretation and review of laboratory results Abnormal [facility] Ketones, UA Positive Negative - 160(16) ++++ mg/dL [facility] Comment on above: 15 Leukocytes, UA Negative Negative - 500+++ Drew/mcL [facility] Nitrite, UA Negative Negative - Positive [facility] pH, UA 7 5 - 9 [facility] Protein, UA Positive Negative - 1999(20) ++++ mg/dL [facility] Comment on above: 30 Spec Grav, UA 1.025 1 - 1.03 [facility] Urobilinogen, UA 0.2 0.2 - 12 mg/dL [facility] ALL CBC WITH AUTO DIFFon BASOPHILS ABSOLUTE AUTO 0.1 [facility] Basophils/100 WBC (Bld) 0.5 % 0.2 - 2.0 % [facility] Eosinophils/100 WBC (Bld) 1.2 % 0.9 - 7.0 % [facility] Erythrocyte distribution width (RBC) [Ratio] 13.3 % 11.0 - 15.0 % [facility] Hematocrit (Bld) [Volume fraction] 34.6 % Low 36.0 - 48.0 % [facility] Hemoglobin (Bld) [Mass/Vol] 11.1 g/dL Low 12.0 - 16.0 g/dL [facility] IMMATURE GRANULOCYTES ABS AUTO 0.22 High [facility] Immature granulocytes/100 WBC (Bld) 1.3 % High 0.0 - 0.5 % [facility] Interpretation and review of laboratory results Abnormal [facility] LYMPHOCYTES ABSOLUTE AUTO 3 [facility] Lymphocytes/100 WBC (Bld) 18.2 % Low 20.5 - 60.0 % [facility] MCH (RBC) [Entitic mass] 26.1 pg Low 26.7 - 34.0 pg [facility] MCHC (RBC) [Mass/Vol] 32.1 g/dL 29.9 - 35.2 g/dL [facility] MCV (RBC) [Entitic vol] 81.4 fL 81.0 - 99.0 fL [facility] MONOCYTES ABSOLUTE AUTO 1.3 High [facility] Monocytes/100 WBC (Bld) 7.7 % 1.7 - 12.0 % [facility] NEUTROPHILS ABSOLUTE AUTO 11.6 High [facility] Neutrophils/100 WBC (Bld) 71.1 % 43.0 - 75.0 % [facility] Platelet mean volume (Bld) [Entitic vol] 9.7 fL 9.5 - 13.5 fL [facility] EO # 0.2 [facility] PLT 349 [facility] RBC 4.25 [facility] WBC 16.3 High [facility] Urinalysis macro (dipstick) panel (U)on 07-04-2024 Bilirubin, UA Negative Negative - 4(70) +++ mg/dL [facility] Blood, UA Negative Negative - 50 Angel Luis/mcL [facility] Clarity, UA Cloudy [facility] Color, UA Yellow [facility] Glucose, UA Negative Negative - 1999(110) ++++ mg/dL [facility] Interpretation and review of laboratory results Abnormal [facility] Ketones, UA Positive Negative - 160(16) ++++ mg/dL [facility] Comment on above: 40mg/dL Leukocytes, UA Few Negative - 500+++ Drew/mcL [facility] Comment on above: small Nitrite, UA Negative Negative - Positive [facility] pH, UA 7 5 - 9 [facility] Protein, UA Few Negative - 1999(20) ++++ mg/dL [facility] Comment on above: 30mg/dL Spec Grav, UA 1.025 1 - 1.03 [facility] Urobilinogen, UA 0.2 0.2 - 12 mg/dL [facility] Urinalysis macro (dipstick) panel (U)on 06-21-2024 Bilirubin, UA Negative Negative - 4(70) +++ mg/dL [facility] Blood, UA Negative Negative - 50 Angel Luis/mcL [facility] Clarity, UA Clear [facility] Color, UA Yellow [facility] Glucose, UA Negative Negative - 1999(110) ++++ mg/dL [facility] Interpretation and review of laboratory results Abnormal [facility] Ketones, UA Negative Negative - 160(16) ++++ mg/dL [facility] Leukocytes, UA Negative Negative - 500+++ Drew/mcL [facility] Nitrite, UA Negative Negative - Positive [facility] pH, UA 7 5 - 9 [facility] Protein, UA Positive Negative - 1999(20) ++++ mg/dL [facility] Comment on above: 30 Spec Grav, UA 1.02 1 - 1.03 [facility] Urobilinogen, UA 0.2 0.2 - 12 mg/dL [facility] Urinalysis macro (dipstick) panel (U)on 06-07-2024 Bilirubin, UA Negative Negative - 4(70) +++ mg/dL [facility] Blood, UA Negative Negative - 50 Angel Luis/mcL [facility] Clarity, UA Clear [facility] Color, UA Yellow [facility] Glucose, UA Negative Negative - 1999(110) ++++ mg/dL [facility] Interpretation and review of laboratory results Normal [facility] Ketones, UA Negative Negative - 160(16) ++++ mg/dL [facility] Leukocytes, UA Negative Negative - 500+++ Drew/mcL [facility] Nitrite, UA Negative Negative - Positive [facility] pH, UA 7 5 - 9 [facility] Protein, UA Negative Negative - 1999(20) ++++ mg/dL [facility] Spec Grav, UA 1.02 1 - 1.03 [facility] Urobilinogen, UA 0.2 0.2 - 12 mg/dL [facility] Urinalysis macro (dipstick) panel (U)on 05-09-2024 Bilirubin, UA Positive Negative - 4(70) +++ mg/dL [facility] Comment on above: small Blood, UA Negative Negative - 50 Angel Luis/mcL [facility] Clarity, UA Clear [facility] Color, UA Miryam [facility] Glucose, UA Negative Negative - 1999(110) ++++ mg/dL [facility] Interpretation and review of laboratory results Abnormal [facility] Ketones, UA Positive Negative - 160(16) ++++ mg/dL [facility] Comment on above: trace Leukocytes, UA Negative Negative - 500+++ Drew/mcL [facility] Nitrite, UA Negative Negative - Positive [facility] pH, UA 6 5 - 9 [facility] Protein, UA Positive Negative - 1999(20) ++++ mg/dL [facility] Comment on above: 30 mg Spec Grav, UA 1.03 1 - 1.03 [facility] Urobilinogen, UA 0.2 0.2 - 12 mg/dL [facility] Urinalysis macro (dipstick) panel (U)on 04-11-2024 Bilirubin, UA Negative Negative - 4(70) +++ mg/dL [facility] Blood, UA Negative Negative - 50 Angel Luis/mcL [facility] Clarity, UA Clear [facility] Color, UA Yellow [facility] Glucose, UA Negative Negative - 1999(110) ++++ mg/dL [facility] Interpretation and review of laboratory results Normal [facility] Ketones, UA Negative Negative - 160(16) ++++ mg/dL [facility] Leukocytes, UA Negative Negative - 500+++ Drew/mcL [facility] Nitrite, UA Negative Negative - Positive [facility] pH, UA 6.5 5 - 9 [facility] Protein, UA Negative Negative - 1999(20) ++++ mg/dL [facility] Spec Grav, UA 1.020 1 - 1.03 [facility] Urobilinogen, UA 0.2 0.2 - 12 mg/dL [facility] Urinalysis macro (dipstick) panel (U)on 03-14-2024 Bilirubin, UA Negative Negative - 4(70) +++ mg/dL [facility] Blood, UA Negative Negative - 50 Angel Luis/mcL [facility] Clarity, UA Clear [facility] Color, UA Yellow [facility] Glucose, UA Negative Negative - 1999(110) ++++ mg/dL [facility] Interpretation and review of laboratory results Normal [facility] Ketones, UA Negative Negative - 160(16) ++++ mg/dL [facility] Leukocytes, UA Negative Negative - 500+++ Drew/mcL [facility] Nitrite, UA Negative Negative - Positive [facility] pH, UA 7.0 5 - 9 [facility] Protein, UA Negative Negative - 1999(20) ++++ mg/dL [facility] Spec Grav, UA 1.020 1 - 1.03 [facility] Urobilinogen, UA 0.2 0.2 - 12 mg/dL [facility] Facesheeton 03-02-2023 Facesheet [id number] CD:127 Normal [facility] Ambulatory Visit Summaryon 0 02-27-2023 Ambulatory [...] pre-eclampsia Insomnia Migraines Overweight Normal [facility] RAD - Ultrasound Reporton RAD - Ultrasound Report [id number] D:127 Normal [facility] Physician Referralon 023 Physician Referral [id number] D:127 Normal [facility] INSULINon 11-08-2022 Insulin 7.7 uIU/mL Normal 2.6-24.9 [facility] Comment on above: Performed By: #### V IVELISSE REBOLLEDO #### [facility] [address] [place], [place] [address] Dr. Chucho Jesus CBC AUTO DIFFon 11-07-2022 BASO # 0.0 103/ul Normal 0.0-0.1 [facility] Comment on above: Performed By: #### V AMAURY IRON #### [facility] [address] [place] [address] Dr. Chucho Jesus Basophils/100 WBC (Bld) 0.6 % Normal 0.2-2.0 [facility] Comment on above: Performed By: #### V ITAD, IRON #### [facility] [address] [place] [address] Dr. Chucho Jesus EO # 0.1 103/ul Normal 0.0-0.7 [facility] Comment on above: Performed By: #### V ITAD, IRON #### [facility] [address] [place] [address] Dr. Chucho Jesus Eosinophils/100 WBC (Bld) 1.4 % Normal 0.9-7.0 [facility] Comment on above: Performed By: #### V ITAD, IRON #### [facility] [address] [place] [address] Dr. Chucho Jesus Erythrocyte distribution width (RBC) [Ratio] 13.9 % Normal 11.0-15.0 [facility] Comment on above: Performed By: #### V ITAD, IRON #### [facility] [address] [place] [address] Dr. Chucho Jesus Hematocrit (Bld) [Volume fraction] 45.6 % Normal 36.0-48.0 [facility] Comment on above: Performed By: #### V ITAD, IRON #### [facility] [address] [place] [address] Dr. Chucho Jesus Hemoglobin (Bld) [Mass/Vol] 15.1 g/dL Normal 12.0-16.0 [facility] Comment on above: Performed By: #### V ITAD, IRON #### [facility] [address] [place] [address] Dr. Chucho Jesus IG # 0.01 10e3/ul Normal 0.00-0.03 [facility] Comment on above: Performed By: #### V ITAD, IRON #### [facility] [address] [place] [address] Dr. Chucho Jesus IG % 0.1 % Normal 0.0-0.5 [facility] Comment on above: Performed By: #### V ITAD, IRON #### [facility] [address] [place] [address] [address] Chucho Jesus LYMPH # 1.9 103/ul Normal 1.2-3.8 [facility] Comment on above: Performed By: #### V ITAD, IRON #### [facility] [address] [address] [address] Chucho Jesus Lymphocytes/100 WBC (Bld) 26.3 % Normal 20.5-60.0 [facility] Comment on above: Performed By: #### V ITAD, IRON #### [facility] [address] [place] [address] Dr. Chucho Jesus MANUAL DIFF REQ NO Normal [facility] Comment on above: Performed By: #### V ITAD, IRON #### [facility] [address] [place] [address] Dr. Chucho Jesus MCH (RBC) [Entitic mass] 27.9 pg Normal 26.7-34.0 [facility] Comment on above: Performed By: #### V ITAD, IRON #### [facility] [address] [place] [address] Dr. Chucho Jesus MCHC (RBC) [Mass/Vol] 33.1 g/dL Normal 29.9-35.2 [facility] Comment on above: Performed By: #### V ITAD, IRON #### [facility] [address] [place] [address] Dr. Chucho Jesus MCV (RBC) [Entitic vol] 84.1 fL Normal 81.0-99.0 [facility] Comment on above: Performed By: #### V ITAD, IRON #### [facility] [address] [place] [address] Dr. Chucho Jesus MONO # 0.5 103/ul Normal 0.3-0.8 [facility] Comment on above: Performed By: #### V ITAD, IRON #### [facility] [address] [place] [address] Dr. Chucho Jesus Monocytes/100 WBC (Bld) 7.3 % Normal 1.7-12.0 [facility] Comment on above: Performed By: #### V ITAD, IRON #### [facility] [address] [address] [address] Chucho Jesus NEUT # 4.6 103/ul Normal 1.4-6.5 [facility] Comment on above: Performed By: #### V ITAD, IRON #### [facility] [address] [address] [address] Chucho Jesus Neutrophils/100 WBC (Bld) 64.3 % Normal 43.0-75.0 [facility] Comment on above: Performed By: #### V ITAD, IRON #### [facility] [address] [place] [address] Dr. Chucho Jesus Platelet mean volume (Bld) [Entitic vol] 10.9 fL Normal 9.5-13.5 [facility] Comment on above: Performed By: #### V ITAD, IRON #### [facility] [address] [place] [address] Dr. Chucho Jesus PLT 226 103/ul Normal 150-450 [facility] Comment on above: Performed By: #### V ITAD, IRON #### [facility] [address] [place] [address] Dr. Chucho Jesus RBC 5.42 106/ul Critically high 4.20-5.40 [facility] Comment on above: Performed By: #### V ITAD, IRON #### [facility] [address] [place] [address] Dr. Chucho Jesus WBC 7.2 103/ul Normal 4.0-11.0 [facility] Comment on above: Performed By: #### V ITAD, IRON #### [facility] [address] [place] [address] Dr. Chucho Jesus FREE THYROXINE INDEX T7on FTI 3.29 Normal 1.30-4.50 [facility] Comment on above: Performed By: #### V ITAD, IRON #### [facility] [address] [place] [address] Dr. Chucho Jesus T3U 35.0 % Normal 30.0-39.0 [facility] Comment on above: Performed By: #### V ITAD, IRON #### [facility] [address] [place] [address] Dr. Chucho Jesus T4 [Mass/Vol] 9.40 ug/dL Normal 4.80-13.90 [facility] Comment on above: Performed By: #### V ITAD, IRON #### [facility] [address] [address] [address] Chucho Jesus GLYCOHEMOGLOBIN A1Con 2022 ADA RECOMMENDATION SEE BELOW Normal [facility] Comment on above: Result Comment: ADA RECOMMENDED LIMIT 4.0 - 6.0 ADA THERAPEUTIC TARGET < 7.0 ACTION SUGGESTED > 7.0 Performed By: #### A 1C #### [facility] [address] [place] [address] Dr. Chucho Jesus Glucose [Mass/Vol] 94 mg/dL Normal [facility] Comment on above: Performed By: #### A 1C #### [facility] [address] [place] [address] Dr. Chucho Jesus HbA1c (Bld) [Mass fraction] 4.9 % Normal 4.5-6.2 [facility] Comment on above: Performed By: #### A 1C #### [facility] [address] [place] [address] Dr. Chucho Jesus IRONon 11-07-2022 Iron [Mass/Vol] 81.0 ug/dL Normal 50.0-170.0 [facility] Comment on above: Performed By: #### V ITAD, IRON #### [facility] [address] [place] [address] Dr. Chucho Jesus LIPID PROFILEon 11-07-2022 CHOL-HDL RATIO NORM SEE BELOW Normal [facility] Comment on above: Result Comment: 3.3 - 4.4 LOW RISK 4.4 - 7.1 AVERAGE RISK 7.1 - 11.0 MODERATE RISK >11.0 HIGH RISK Performed By: #### V ITAD, IRON #### [facility] [address] [place] [address] Dr. Chucho Jesus Cholesterol [Mass/Vol] 126 mg/dL Normal <=200 [facility] Comment on above: Performed By: #### V ITAD, IRON #### [facility] [address] [address] [address] Chucho Jesus Cholesterol in HDL [Mass/Vol] 38 mg/dL Critically low 40-60 [facility] Comment on above: Performed By: #### V ITAD, IRON #### [facility] [address] [address] [address] Chucho Jesus Cholesterol in LDL [Mass/Vol] 79.4 mg/dL Normal [facility] Comment on above: Performed By: #### V ITAD, IRON #### [facility] [address] [place] [address] Dr. Chucho Jesus Cholesterol.total/C holesterol in HDL [Mass ratio] 3.3 {ratio} Normal [facility] Comment on above: Performed By: #### V ITAD, IRON #### [facility] [address] [address] [address] Chucho Jesus HDL NORMAL > or = 60 mg/dl - LO W CARDIOVASCULAR RISK <40 mg/dl - HIGH CARDIOVASCULAR RISK Normal [facility] Comment on above: Performed By: #### V ITAD, IRON #### [facility] [address] [place] [address] Dr. Chucho Jesus LDL CALC NORMAL SEE BELOW Normal [facility] Comment on above: Result Comment: <100 mg/dl OPTIMAL 100 - 129 mg/dl NEAR OR ABOVE OPTIMAL 130 - 159 mg/dl BORDERLINE HIGH 160 - 189 mg/dl HIGH >190 mg/dl VERY HIGH Performed By: #### V ITAD, IRON #### [facility] [address] [address] [address] Chucho Jesus Triglyceride [Mass/Vol] 43 mg/dL Normal <=150 [facility] Comment on above: Performed By: #### V ITAD, IRON #### [facility] [address] [address] [address] Chucho Jesus VLDL CALC 8.6 mg/dL Normal [facility] Comment on above: Performed By: #### V ITAD, IRON #### [facility] [address] [address] [address] Chucho Jesus PROF 14(COMP METB)on 023 Albumin [Mass/Vol] 4.2 g/dL Normal 3.4-5.0 [facility] Comment on above: Performed By: #### V ITAD, IRON #### [facility] [address] [address] [address] Chucho Jesus Albumin/Globulin [Mass ratio] 1.1 {ratio} Normal [facility] Comment on above: Performed By: #### V ITAD, IRON #### [facility] [address] [address] [address] Chucho Jesus ALP [Catalytic activity/Vol] 93 U/L Normal 46-116 [facility] Comment on above: Performed By: #### V ITAD, IRON #### [facility] [address] [address] [address] Chucho Jesus ALT [Catalytic activity/Vol] 16 U/L Normal 14-59 [facility] Comment on above: Performed By: #### V ITAD, IRON #### [facility] [address] [address] [address] Chucho Jesus Anion gap [Moles/Vol] 14.3 mmol/L Normal [facility] Comment on above: Performed By: #### V ITAD, IRON #### [facility] [address] [address] [address] Chucho Jesus AST [Catalytic activity/Vol] 16 U/L Normal 15-37 [facility] Comment on above: Performed By: #### V ITAD, IRON #### [facility] [address] [address] [address] Chucho Jesus Bilirubin [Mass/Vol] 1.0 mg/dL Normal 0.2-1.0 [facility] Comment on above: Performed By: #### V ITAD, IRON #### [facility] [address] [address] [address] Chucho Jesus Calcium [Mass/Vol] 9.4 mg/dL Normal 8.5-10.1 [facility] Comment on above: Performed By: #### V ITAD, IRON #### [facility] [address] [address] [address] Chucho Jesus Chloride [Moles/Vol] 103 mmol/L Normal 98-107 [facility] Comment on above: Performed By: #### V ITAD, IRON #### [facility] [address] [address] [address] Chucho Jesus CO2 [Moles/Vol] 24.9 mmol/L Normal 21.0-32.0 [facility] Comment on above: Performed By: #### V ITAD, IRON #### [facility] [address] [place] [address] Dr. Chucho Jesus Creatinine [Mass/Vol] 0.68 mg/dL Normal 0.55-1.02 [facility] Comment on above: Performed By: #### V ITAD, IRON #### [facility] [address] [place] [address] Dr. Chucho Jesus EGFR-AF SAUDI ARABIAN >60 Normal >=60 [facility] Comment on above: Performed By: #### V ITAD, IRON #### [facility] [address] [place] [address] Dr. Chucho Jesus EGFR-NON AF SAUDI ARABIAN >60 Normal >=60 [facility] Comment on above: Performed By: #### V ITAD, IRON #### [facility] [address] [place] [address] Dr. Chucho Jesus Globulin (S) [Mass/Vol] 3.9 g/dL Normal [facility] Comment on above: Performed By: #### V ITAD, IRON #### [facility] [address] [address] [address] Chucho Jesus Glucose [Mass/Vol] 89 mg/dL Normal 74-106 [facility] Comment on above: Performed By: #### V ITAD, IRON #### [facility] [address] [place] [address] Dr. Chucho Jesus Potassium [Moles/Vol] 4.2 mmol/L Normal 3.5-5.1 [facility] Comment on above: Performed By: #### V ITAD, IRON #### [facility] [address] [place] [address] Dr. Chucho Jesus Protein [Mass/Vol] 8.1 g/dL Normal 6.4-8.2 [facility] Comment on above: Performed By: #### V ITAD, IRON #### [facility] [address] [place] [address] Dr. Chucho Jesus Sodium [Moles/Vol] 138 mmol/L Normal 136-145 [facility] Comment on above: Performed By: #### V ITAD, IRON #### [facility] [address] [place] [address] Dr. Chucho Jesus Urea nitrogen [Mass/Vol] 9.0 mg/dL Normal 7.0-18.0 [facility] Comment on above: Performed By: #### V ITAD, IRON #### [facility] [address] [place] [address] Dr. Chucho Jesus Urea nitrogen/Creatinine [Mass ratio] 13.2 mg/mg Normal [facility] Comment on above: Performed By: #### V ITAD, IRON #### [facility] [address] [place] [address] Dr. Chucho Jesus TSHon 11-07-2022 TSH 1.668 uIU/mL Normal 0.358-3.740 [facility] Comment on above: Performed By: #### V ITAD, IRON #### [facility] [address] [place] [address] Dr. Chucho Jesus [facility] SARS-CoV-2 (COVID-19) RNA DMITRY+probe Ql (Unsp spec) Not detected Normal NOT DETECTED [facility] Comment on above: Result Comment: When [...] for this test is supported by the [employer] of Health and Human Service's declaration [...] Performed By: #### V ITAD, IRON #### [facility] [address] [place] [id number] [address] Chucho Jesus Covid-19 PCR ([facility])on SARS-CoV-2 (COVID-19) RNA DMITRY+probe Ql (Unsp spec) Not detected Normal NOT DETECTED [facility] Comment on above: Result Comment: When [...] for this test is supported by the [place] of Health and Human Service's declaration that [...] used). Performed By: #### C VDTBH #### [facility] [address] [place] [address] Dr. Chucho Jesus INFLUENZA A AND B AGon 08-11 INFLUANEGH SEE BELOW Normal [facility] Comment on above: Result Comment: Nega tive for Flu A protein angiten. Infection due to Flu A cannot be ruled out. Flu A angiten in the sample may be below the detection limit of the test. Performed By: #### I NFLUAB #### [facility] [address] [place] [address] Dr. Chucho Jesus [facility] SEE BELOW Normal [facility] Comment on above: Result Comment: Nega tive for Flu B protein antigen. Infection due to Flu B cannot be ruled out. Flu B antigen in the sample may be below the detection limit of the test. Performed By: #### I NFLUAB #### [facility] [address] [place] [address] Dr. Chucho Jesus INFLUENZA A AG Negative Normal NEGATIVE SEE COMMENT [facility] Comment on above: Performed By: #### I NFLUAB #### [facility] [address] [place] [address] Dr. Chucho Jesus INFLUENZA B AG Negative Normal NEGATIVE SEE COMMENT [facility] Comment on above: Performed By: #### I NFLUAB #### [facility] [address] [place] [address] Dr. Chucho Jesus Covid-19 PCR ([facility])on 05-07 SARS-CoV-2 (COVID-19) RNA DMITRY+probe Ql (Unsp spec) Not detected Normal NOT DETECTED [facility] Comment on above: Result Comment: When [...] for this test is supported by the [place] of Health and Human Service's declaration that [...] Performed By: #### V ITAD, IRON #### [facility] [address] [place] [address] Dr. Chucho Jesus INFLUENZA A AND B AGon 05-26 INFLUANEGH SEE BELOW Normal [facility] Comment on above: Result Comment: Nega tive for Flu A protein angiten. Infection due to Flu A cannot be ruled out. Flu A angiten in the sample may be below the detection limit of the test. Performed By: #### V ITAD, IRON #### [facility] [address] [place] [address] Dr. Chucho Jesus INFLUBNEGH SEE BELOW Normal [facility] Comment on above: Result Comment: Nega tive for Flu B protein antigen. Infection due to Flu B cannot be ruled out. Flu B antigen in the sample may be below the detection limit of the test. Performed By: #### V ITAD, IRON #### [facility] [address] [place] [address] Dr. Chucho Jesus INFLUENZA A AG Negative Normal NEGATIVE SEE COMMENT [facility] Comment on above: Performed By: #### V ITAD, IRON #### [facility] [address] [place] [address] Dr. Chucho Jesus INFLUENZA B AG Negative Normal NEGATIVE SEE COMMENT [facility] Comment on above: Performed By: #### V ITAD, IRON #### [facility] [address] [place] [address] Dr. Chucho Jesus INTERNAL CONTROLS Within Normal Limits Normal Wi thin Normal Limits [facility] Comment on above: Performed By: #### V ITAD, IRON #### [facility] [address] [place] [address] Dr. Chucho Jesus ER URINE PROFILEon 2 Bilirubin Ql (U) Negative Normal NEGATIVE [facility] Comment on above: Performed By: #### V ITAD, IRON #### [facility] [address] [place] [address] Dr. Chucho Jesus Clarity (U) CLEAR Normal CLEAR [facility] Comment on above: Performed By: #### V ITAD, IRON #### [facility] [address] [place] [address] Dr. Chucho Jesus Color (U) YELLOW Normal YELLOW [facility] Comment on above: Performed By: #### V ITAD, IRON #### [facility] [address] [address] [address] Chucho BAHENA A micrscopic examination will be performed if indicated. Normal [facility] Comment on above: Performed By: #### V ITAD, IRON #### [facility] [address] [place] [address] Dr. Chucho Jesus Glucose Ql (U) Negative Normal NEGATIVE [facility] Comment on above: Performed By: #### V ITAD, IRON #### [facility] [address] [address] [address] Chucho Jesus Hemoglobin Ql (U) Negative Normal NEGATIVE [facility] Comment on above: Performed By: #### V ITAD, IRON #### [facility] [address] [place] [address] Dr. Chucho Jesus Ketones Ql (U) >=80 Abnormal NEGATIVE [facility] Comment on above: Performed By: #### V ITAD, IRON #### [facility] [address] [place] [address] Dr. Chucho Jesus LEUKOCYTES Negative Normal NEGATIVE [facility] Comment on above: Performed By: #### V ITAD, IRON #### [facility] [address] [place] [address] Dr. Chucho Jesus Nitrite Ql (U) Negative Normal NEGATIVE [facility] Comment on above: Performed By: #### V ITAD, IRON #### [facility] [address] [place] [address] Dr. Chucho Jesus pH (U) 6.0 [pH] Normal 5-9 [facility] Comment on above: Performed By: #### V ITAD, IRON #### [facility] [address] [place] [address] Dr. Chucho Jesus Protein (U) [Mass/Vol] 100 mg/dL Abnormal NEGATIVE/ TRACE [facility] Comment on above: Performed By: #### V ITAD, IRON #### [facility] [address] [place] [address] Dr. Chucho Jesus SPEC GRAVITY >=1.030 Abnormal 1.005-<=1.025 The [facility] Comment on above: Performed By: #### V ITAD, IRON #### [facility] [address] [place] [address] Dr. Chucho Jesus UR MICRO IND INDICATED Normal [facility] Comment on above: Performed By: #### V ITAD, IRON #### [facility] [address] [place] [address] Dr. Chucho Jesus Urobilinogen Qn (U) 0.2 {Chelsea'U}/dL Normal 0.2 - 1. 0 [facility] Comment on above: Performed By: #### V ITAD, IRON #### [facility] [address] [place] [address] Dr. Chucho Jesus URon 05-22-2022 , QUAL Negative Normal NEGATIVE [facility] Comment on above: Performed By: #### V ITAD, IRON #### [facility] [address] [place] [address] Dr. Chucho Jesus URINE MICROSCOPIC ONLYon BACTERIA NONE SEEN Normal NONE SEEN [facility] Comment on above: Performed By: #### V ITAD, IRON #### [facility] [address] [place] [address] Dr. Chucho Jesus Bacteria identified Cx Nom (U) NOT INDICATED Normal [facility] Comment on above: Performed By: #### V ITAD, IRON #### [facility] [address] [place] [address] Dr. Chucho Jesus CAST NONE SEEN Normal NONE SEEN [facility] Comment on above: Performed By: #### V ITAD, IRON #### [facility] [address] [place] [address] Dr. Chucho Jesus Crystals LM Nom (Urine sed) NONE SEEN Normal NONE SEEN [facility] Comment on above: Performed By: #### V ITAD, IRON #### [facility] [address] [place] [address] Dr. Chucho Jesus Epithelial cells LM Ql (Urine sed) FEW Abnormal NONE SEEN /RARE [facility] Comment on above: Performed By: #### V ITAD, IRON #### [facility] [address] [address] [address] Chucho Jesus MUCOUS MODERATE Abnormal NONE SEEN [facility] Comment on above: Performed By: #### V ITAD, IRON #### [facility] [address] [address] [address] Chucho Jesus RBC NONE SEEN Abnormal 0-2 [facility] Comment on above: Performed By: #### V ITAD, IRON #### [facility] [address] [address] [address] Chucho Jesus WBC NONE SEEN Normal NONE SEEN [facility] Comment on above: Performed By: #### V ITAD, IRON #### [facility] [address] [place] [address] Dr. Chucho Jesus XR LSPINE 2_3 VIEWSon [...] MARCO CAMPOS Date: 2022-05-22 12:28 Normal [facility] INSULINon 04-25-2022 Insulin 10.4 uIU/mL Normal 2.6-24.9 [facility] Comment on above: Performed By: #### V ITAD, IRON #### [facility] [address] [place] [address] Dr. Chucho Jesus CBC AUTO DIFFon 04-24-2022 BASO # 0.0 103/ul Normal 0.0-0.1 [facility] Comment on above: Performed By: #### C BC #### [facility] [address] [place] [address] Dr. Chucho Jesus Basophils/100 WBC (Bld) 0.6 % Normal 0.2-2.0 [facility] Comment on above: Performed By: #### C BC #### [facility] [address] [place] [address] Dr. Chucho Jesus EO # 0.1 103/ul Normal 0.0-0.7 [facility] Comment on above: Performed By: #### C BC #### [facility] [address] [place] [address] Dr. Chucho Jesus Eosinophils/100 WBC (Bld) 1.8 % Normal 0.9-7.0 [facility] Comment on above: Performed By: #### C BC #### [facility] [address] [place] [address] Dr. Chucho Jesus Erythrocyte distribution width (RBC) [Ratio] 12.9 % Normal 11.0-15.0 [facility] Comment on above: Performed By: #### C BC #### [facility] [address] [place] [address] Dr. Chucho Jesus Hematocrit (Bld) [Volume fraction] 45.6 % Normal 36.0-48.0 [facility] Comment on above: Performed By: #### C BC #### [facility] [address] [place] [address] Dr. Chucho Jesus Hemoglobin (Bld) [Mass/Vol] 14.7 g/dL Normal 12.0-16.0 [facility] Comment on above: Performed By: #### C BC #### [facility] [address] [place] [address] Dr. Chucho Jesus IG # 0.02 10e3/ul Normal 0.00-0.03 [facility] Comment on above: Performed By: #### C BC #### [facility] [address] [place] [address] Dr. Chucho Jesus IG % 0.3 % Normal 0.0-0.5 [facility] Comment on above: Performed By: #### C BC #### [facility] [address] [place] [address] Dr. Chucho Jesus LYMPH # 1.6 103/ul Normal 1.2-3.8 [facility] Comment on above: Performed By: #### C BC #### [facility] [address] [place] [address] Dr. Chucho Jesus Lymphocytes/100 WBC (Bld) 24.5 % Normal 20.5-60.0 [facility] Comment on above: Performed By: #### C BC #### [facility] [address] [place] [address] Dr. Chucho Jesus MANUAL DIFF REQ NO Normal [facility] Comment on above: Performed By: #### C BC #### [facility] [address] [place] [address] Dr. Chucho Jesus MCH (RBC) [Entitic mass] 28.4 pg Normal 26.7-34.0 [facility] Comment on above: Performed By: #### C BC #### [facility] [address] [place] [address] Dr. Chucho Jesus MCHC (RBC) [Mass/Vol] 32.2 g/dL Normal 29.9-35.2 [facility] Comment on above: Performed By: #### C BC #### [facility] [address] [place] [address] Dr. Chucho Jesus MCV (RBC) [Entitic vol] 88.2 fL Normal 81.0-99.0 [facility] Comment on above: Performed By: #### C BC #### [facility] [address] [place] [address] Dr. Chucho Jesus MONO # 0.5 103/ul Normal 0.3-0.8 [facility] Comment on above: Performed By: #### C BC #### [facility] [address] [place] [address] Dr. Chucho Jesus Monocytes/100 WBC (Bld) 7.4 % Normal 1.7-12.0 [facility] Comment on above: Performed By: #### C BC #### [facility] [address] [place] [address] Dr. Chucho Jesus NEUT # 4.4 103/ul Normal 1.4-6.5 [facility] Comment on above: Performed By: #### C BC #### [facility] [address] [place] [address] Dr. Chucho Jesus Neutrophils/100 WBC (Bld) 65.4 % Normal 43.0-75.0 [facility] Comment on above: Performed By: #### C BC #### [facility] [address] [place] [address] Dr. Chucho Jesus Platelet mean volume (Bld) [Entitic vol] 9.9 fL Normal 9.5-13.5 [facility] Comment on above: Performed By: #### C BC #### [facility] [address] [place] [address] Dr. Chucho Jesus PLT 225 103/ul Normal 150-450 [facility] Comment on above: Performed By: #### C BC #### [facility] [address] [place] [address] Dr. Chucho Jesus RBC 5.17 106/ul Normal 4.20-5.40 [facility] Comment on above: Performed By: #### C BC #### [facility] [address] [place] [address] Dr. Chucho Jesus WBC 6.7 103/ul Normal 4.0-11.0 [facility] Comment on above: Performed By: #### C BC #### [facility] [address] [place] [address] Dr. Chucho Jesus FREE THYROXINE INDEX T7on FTI 3.29 Normal 1.30-4.50 [facility] Comment on above: Performed By: #### T 7, TSH, LIPID, CMP #### [facility] [address] [place] [address] Dr. Chucho Jesus T3U 27.0 % Critically low 30.0-39.0 [facility] Comment on above: Performed By: #### T 7, TSH, LIPID, CMP #### [facility] [address] [place] [address] Dr. Chucho Jesus T4 [Mass/Vol] 12.20 ug/dL Normal 4.80-13.90 [facility] Comment on above: Performed By: #### T 7, TSH, LIPID, CMP #### [facility] [address] [address] [address] Chucho Jesus GLYCOHEMOGLOBIN A1Con 2021 ADA RECOMMENDATION SEE BELOW Normal [facility] Comment on above: Result Comment: ADA RECOMMENDED LIMIT 4.0 - 6.0 ADA THERAPEUTIC TARGET < 7.0 ACTION SUGGESTED > 7.0 Performed By: #### A 1C #### [facility] [address] [address] [address] Chucho Jesus Glucose [Mass/Vol] 105 mg/dL Normal [facility] Comment on above: Performed By: #### A 1C #### [facility] [address] [place] [address] Dr. Chucho Jesus HbA1c (Bld) [Mass fraction] 5.3 % Normal 4.5-6.2 [facility] Comment on above: Performed By: #### A 1C #### [facility] [address] [place] [address] Dr. Chucho Jesus IRONon 04-24-2022 Iron [Mass/Vol] 48.0 ug/dL Critically low 50.0-170.0 [facility] Comment on above: Performed By: #### V ITAD, IRON #### [facility] [address] [place] [address] Dr. Chucho Jesus LIPID PROFILEon 04-24-2022 CHOL-HDL RATIO NORM SEE BELOW Normal [facility] Comment on above: Result Comment: 3.3 - 4.4 LOW RISK 4.4 - 7.1 AVERAGE RISK 7.1 - 11.0 MODERATE RISK >11.0 HIGH RISK Performed By: #### V ITAD, IRON #### [facility] [address] [place] [address] Dr. Chucho Jesus Cholesterol [Mass/Vol] 184 mg/dL Normal <=200 [facility] Comment on above: Performed By: #### V ITAD, IRON #### [facility] [address] [place] [address] Dr. Chucho Jesus Cholesterol in HDL [Mass/Vol] 55 mg/dL Normal 40-60 [facility] Comment on above: Performed By: #### V ITAD, IRON #### [facility] [address] [address] [address] Chucho Jesus Cholesterol in LDL [Mass/Vol] 116.6 mg/dL Normal [facility] Comment on above: Performed By: #### V ITAD, IRON #### [facility] [address] [address] [address] Chucho Jesus Cholesterol.total/C holesterol in HDL [Mass ratio] 3.3 {ratio} Normal [facility] Comment on above: Performed By: #### V ITAD, IRON #### [facility] [address] [place] [address] Dr. Chucho Jesus HDL NORMAL > or = 60 mg/dl - LO W CARDIOVASCULAR RISK <40 mg/dl - HIGH CARDIOVASCULAR RISK Normal [facility] Comment on above: Performed By: #### V ITAD, IRON #### [facility] [address] [place] [address] Dr. Chucho Jesus LDL CALC NORMAL SEE BELOW Normal [facility] Comment on above: Result Comment: <100 mg/dl OPTIMAL 100 - 129 mg/dl NEAR OR ABOVE OPTIMAL 130 - 159 mg/dl BORDERLINE HIGH 160 - 189 mg/dl HIGH >190 mg/dl VERY HIGH Performed By: #### V ITAD, IRON #### [facility] [address] [address] [address] Chucho Jesus Triglyceride [Mass/Vol] 62 mg/dL Normal <=150 [facility] Comment on above: Performed By: #### V ITAD, IRON #### [facility] [address] [address] [address] Chucho Jesus VLDL CALC 12.4 mg/dL Normal [facility] Comment on above: Performed By: #### V ITAD, IRON #### [facility] [address] [address] [address] Chucho Jesus PROF 14(COMP METB)on 022 Albumin [Mass/Vol] 3.7 g/dL Normal 3.4-5.0 [facility] Comment on above: Performed By: #### T 7, TSH, LIPID, CMP #### [facility] [address] [place] [address] Dr. Chucho Jesus Albumin/Globulin [Mass ratio] 0.9 {ratio} Normal [facility] Comment on above: Performed By: #### T 7, TSH, LIPID, CMP #### [facility] [address] [place] [address] Dr. Chucho Jesus ALP [Catalytic activity/Vol] 74 U/L Normal 46-116 [facility] Comment on above: Performed By: #### T 7, TSH, LIPID, CMP #### [facility] [address] [place] [address] Dr. Chucho Jesus ALT [Catalytic activity/Vol] 16 U/L Normal 14-59 [facility] Comment on above: Performed By: #### T 7, TSH, LIPID, CMP #### [facility] [address] [place] [address] Dr. Chucho Jesus Anion gap [Moles/Vol] 12.3 mmol/L Normal [facility] Comment on above: Performed By: #### T 7, TSH, LIPID, CMP #### [facility] [address] [place] [address] Dr. Chucho Jesus AST [Catalytic activity/Vol] 13 U/L Critically low 15-37 [facility] Comment on above: Performed By: #### T 7, TSH, LIPID, CMP #### [facility] [address] [place] [address] Dr. Chucho Jesus Bilirubin [Mass/Vol] 0.4 mg/dL Normal 0.2-1.0 [facility] Comment on above: Performed By: #### T 7, TSH, LIPID, CMP #### [facility] [address] [place] [address] Dr. Chucho Jesus Calcium [Mass/Vol] 8.9 mg/dL Normal 8.5-10.1 [facility] Comment on above: Performed By: #### T 7, TSH, LIPID, CMP #### [facility] [address] [address] [address] Chucho Jesus Chloride [Moles/Vol] 105 mmol/L Normal 98-107 [facility] Comment on above: Performed By: #### T 7, TSH, LIPID, CMP #### [facility] [address] [address] [address] Chucho Jesus CO2 [Moles/Vol] 26.6 mmol/L Normal 21.0-32.0 [facility] [facility] Comment on above: Performed By: #### T 7, TSH, LIPID, CMP #### [facility] [address] [address] [address] Chucho Jesus Creatinine [Mass/Vol] 0.68 mg/dL Normal 0.55-1.02 [facility] Comment on above: Performed By: #### T 7, TSH, LIPID, CMP #### [facility] [address] [place] [address] Dr. Chucho Jesus EGFR-AF SAUDI ARABIAN >60 Normal >=60 [facility] Comment on above: Performed By: #### T 7, TSH, LIPID, CMP #### [facility] [address] [place] [address] Dr. Chucho Jesus EGFR-NON AF SAUDI ARABIAN >60 Normal >=60 [facility] Comment on above: Performed By: #### T 7, TSH, LIPID, CMP #### [facility] [address] [place] [address] Dr. Chucho Jesus Globulin (S) [Mass/Vol] 4.3 g/dL Normal [facility] Comment on above: Performed By: #### T 7, TSH, LIPID, CMP #### [facility] [address] [place] [address] Dr. Chucho Jesus Glucose [Mass/Vol] 87 mg/dL Normal 74-106 [facility] Comment on above: Performed By: #### T 7, TSH, LIPID, CMP #### [facility] [address] [place] [address] Dr. Chucho Jesus Potassium [Moles/Vol] 3.9 mmol/L Normal 3.5-5.1 [facility] Comment on above: Performed By: #### T 7, TSH, LIPID, CMP #### [facility] [address] [place] [address] Dr. Chucho Jesus Protein [Mass/Vol] 8.0 g/dL Normal 6.4-8.2 [facility] Comment on above: Performed By: #### T 7, TSH, LIPID, CMP #### [facility] [address] [place] [address] Dr. Chucho Jesus Sodium [Moles/Vol] 140 mmol/L Normal 136-145 [facility] Comment on above: Performed By: #### T 7, TSH, LIPID, CMP #### [facility] [address] [place] [address] Dr. Chucho Jesus Urea nitrogen [Mass/Vol] 9.0 mg/dL Normal 7.0-18.0 [facility] Comment on above: Performed By: #### T 7, TSH, LIPID, CMP #### [facility] [address] [place] [address] Dr. Chucho Jesus Urea nitrogen/Creatinine [Mass ratio] 13.2 mg/mg Normal [facility] Comment on above: Performed By: #### T 7, TSH, LIPID, CMP #### [facility] [address] [place] [address] Dr. Chucho Jesus TSHon 04-24-2022 TSH 1.127 uIU/mL Normal 0.358-3.740 [facility] Comment on above: Performed By: #### T 7, TSH, LIPID, CMP #### [facility] [address] [place] [address] Dr. Chucho Jesus VITAMIN D 25 OHon 04-24-2022 VIT D 25-OH 35.2 ng/mL Normal [facility] Comment on above: Performed By: #### V ITAD, IRON #### [facility] [address] [place] [address] Dr. Chucho Jesus VIT D RANGES SEE BELOW Normal [facility] Comment on above: Result Comment: <20 ng/mL Vit D deficient 20 - <30 ng/mL Vit D insufficient 30 - 100 ng/mL Vit D sufficient >100 ng/mL Potential Toxicity Performed By: #### V ITAD, IRON #### [facility] [address] [address] [address] Chucho Jesus HCG ( test) Ql (U)O rdered By: James Churchill on 12-05-2020 Internal Control Pass [facility] Interpretation and review of laboratory results Normal [facility] POC , UrineOrdered By: James Churchill on 12-05-2020 HCG ( test) Ql (U) Negative Negative [facility] CTA CHEST WITH CONTRASTon CTA [...] by:Ady Tran MD/Edited Result - FINAL Normal [facility] Basic Metabolic Profon 02-19 (cont.) Normal [facility] Comment on above: Result Comment: Aver age GFR for 20-29 years old: 116 mL/min/1.73sq mChronic Kidney Disease: <60 mL/min/1.73sq mKidney failure: <15 mL/min/1.73sq meGFR calculated using average adult body mass. Additional eGFR calculator available at:http://www.Peel.Cellmax/multiple_crcl_2012.htm Performed By: #### C DP, BMP, TROPI ####[address] [place] [address] Anion gap 14 mmol/L Normal 9-17 [facility] Comment on above: Performed By: #### C DP, BMP, TROPI ####[address] [place] [address] BUN/CRE Ratio 13 Normal 9-20 [facility] Comment on above: Performed By: #### C DP, BMP, TROPI ####[address] [place] [address] Calcium 9.2 mg/dL Normal 8.6-10.4 [facility] Comment on above: Performed By: #### C DP, BMP, TROPI ####[address] [place] [address] Chloride 105 mmol/L Normal 98-107 [facility] Comment on above: Performed By: #### C DP, BMP, TROPI ####[address] [place] [address] CO2 23 mmol/L Normal 20-31 [facility] Comment on above: Performed By: #### C DP, BMP, TROPI ####[address] [place] [address] Creatinine 0.55 mg/dL Normal 0.50-0.90 [facility] Comment on above: Performed By: #### C DP, BMP, TROPI ####[address] [place] [address] eGFR (non-black) mL/min/{1.73_m2} Normal >60 [facility] Comment on above: Performed By: #### C DP, BMP, TROPI ####[address] [place] [address] Glucose mass conc 96 mg/dL Normal 70-99 [facility] Comment on above: Performed By: #### C DP, BMP, TROPI ####[address] , [place] [id number] Potassium molar conc 3.6 mmol/L Low 3.7-5.3 [facility] Comment on above: Performed By: #### C DP, BMP, TROPI ####[address] [place] [address] Sodium 142 mmol/L Normal 135-144 [facility] Comment on above: Performed By: #### C DP, BMP, TROPI ####[address] [place] [address] Staging: Normal [facility] Comment on above: Result Comment: Stag e 1: Some kidney damage normal GFRStage 2: Mild kidney damage GFR 60-89Stage 3: Moderate kidney damage GFR 30-59Stage 4: Severe kidney damage GFR 15-29Stage 5: Severe kidney damage GFR <15ESRD - chronic treatment by dialysis or transplantPerformed at [address] [place] [address] Performed By: #### C DP, BMP, TROPI ####[address] [place] [address] Urea nitrogen 7 mg/dL Normal 6-20 [facility] Comment on above: Performed By: #### C DP, BMP, TROPI ####[address] , [place] [id number] CBC with Diffon 02-19-2017 Abs. Basophil 0.00 k/uL Normal 0.0-0.2 [facility] Comment on above: Result Comment: Perf ormed at [address] [place], [place] [id number] ([phone] Performed By: #### C DP, BMP, TROPI ####[address] , [place] [address] Abs.Neutrophil (Seg) 7.10 k/uL Normal 1.8-8.0 [facility] Comment on above: Performed By: #### C DP, BMP, TROPI ####[address] , [facility]83 Basophils/100 WBC Auto (Bld) 0 % Normal [facility] Comment on above: Performed By: #### C DP, BMP, TROPI ####[address] [place] [address] Eosinophils 0.30 10*3/uL Normal 0.0-0.4 [facility] Comment on above: Performed By: #### C DP, BMP, TROPI ####[address] [place] [address] Eosinophils/100 leukocytes 3 % Normal [facility] Comment on above: Performed By: #### C DP, BMP, TROPI ####[address] , [facility] Erythrocyte distribution width Auto Ratio (RBC) 13.6 % Normal 12.1-15.2 [facility] Comment on above: Performed By: #### C DP, BMP, TROPI ####[address] , [place] [address] Erythrocytes (RBC) 5.03 10*6/uL Normal 4.0-5.2 [facility] Comment on above: Performed By: #### C DP, BMP, TROPI ####[address] [place] [address] Hematocrit (HCT) 40.2 % Normal 36-46 [facility] Comment on above: Performed By: #### C DP, BMP, TROPI ####[address] , [place] [address] Hemoglobin mass conc (Bld) 13.2 g/dL Normal 12.0-16.0 [facility] Comment on above: Performed By: #### C DP, BMP, TROPI ####[address] [place] [address] Lymphocytes 2.90 10*3/uL Normal 1.2-5.2 [facility] Comment on above: Performed By: #### C DP, BMP, TROPI ####[address] [place] [address] Lymphocytes/100 leukocytes 27 % Normal [facility] Comment on above: Performed By: #### C DP, BMP, TROPI ####[address] [place] [address] MCH 26.2 pg Normal 26-34 [facility] Comment on above: Performed By: #### C DP, BMP, TROPI ####[address] [place] [address] MCHC mass conc (RBC) 32.8 g/dL Normal 31-37 [facility] Comment on above: Performed By: #### C DP, BMP, TROPI ####[address] [place] [address] MCV 79.9 fL Low 80-100 [facility] Comment on above: Performed By: #### C DP, BMP, TROPI ####[address] [place] [address] Monocytes 0.60 10*3/uL Normal 0.0-1.0 [facility] Comment on above: Performed By: #### C DP, BMP, TROPI ####[address] [place] [address] Monocytes/100 leukocytes 5 % Normal [facility] Comment on above: Performed By: #### C DP, BMP, TROPI ####[address] [place] [address] Neutrophil (Seg) 65 % Normal [facility] Comment on above: Performed By: #### C DP, BMP, TROPI ####[address] [place] [address] Platelet mean volume (PMV) 9.6 fL Normal 6.0-12.0 [facility] Comment on above: Performed By: #### C DP, BMP, TROPI ####[address] [place] [address] Platelets 278 10*3/uL Normal 140-450 [facility] Comment on above: Performed By: #### C DP, BMP, TROPI ####[address] [place] [address] WBC (Leukocytes) 10.8 10*3/uL Normal 4.5-13.5 [facility] Comment on above: Performed By: #### C DP, BMP, TROPI ####[address] [place] [address] Auto Diff Performed NOT REPORTED Normal [facility] Comment on above: Performed By: #### C DP, BMP, TROPI ####[address] [place] [address] Erythrocyte morphology NOT REPORTED Normal [facility] Comment on above: Performed By: #### C DP, BMP, TROPI ####[address] [place] [address] Platelets NOT REPORTED Normal [facility] Comment on above: Performed By: #### C DP, BMP, TROPI ####[address] [place] [address] WBC Morphology NOT REPORTED Normal [facility] Comment on above: Performed By: #### C DP, BMP, TROPI ####[address] [place] [address] ED Noteon 02-19-2017 HIM IP Note OR Cuff Maker Normal [facility] ED Provider Noteon 7 HIM IP Note OR Cuff Maker Normal [facility] Troponinon 02-19-2017 Troponin T.cardiac mass conc ug/L Normal <0.03 [facility] Comment on above: Result Comment: Trop onin T results cannot be compared to Troponin-I results. Performed By: #### C DP, BMP, TROPI ####[address] , [place] [id number] Troponin I.cardiac mass conc Normal [facility] Comment on above: Result Comment: Refe rence Range: <0.03 Within reference range. 0.03-0.09 Possible myocardial damage.Repeat at appropriate intervals to rule out chronic elevation. >= 0.10 Indicative of myocardial damage.Performed at [address] [place], [place] [id number] ([phone] Performed By: #### C DP, BMP, TROPI ####[address] [place] [address] Vital Signs Date Time Vital Sign Value Performing Clinician Facility 08-01-2024 13:24-0500 Body mass index (BMI) [Ratio] 37.77 kg/m2 Katelyn Luis DO Work Phone: [facility] 08-01-2024 13:24-0500 Body weight 102.97 kg Katelyn Luis DO Work Phone: [facility] 08-01-2024 13:24-0500 Diastolic blood pressure 72 mm[Hg] Katelyn Luis DO Work Phone: [facility] 08-01-2024 13:24-0500 Systolic blood pressure 120 mm[Hg] Katelyn Luis DO Work Phone: [facility] 07-27-2024 08:59-0500 Body mass index (BMI) [Ratio] 37.67 kg/m2 Little LOWRY Work Phone: [facility] 07-27-2024 08:59-0500 Body weight 102.69 kg Little Shahnaz PA Work Phone: [facility] 07-27-2024 08:59-0500 Diastolic blood pressure 70 mm[Hg] Little Shahnaz PA Work Phone: [facility] 07-27-2024 08:59-0500 Systolic blood pressure 118 mm[Hg] Little Cofield PA Work Phone: [facility] 07-18-2024 10:02-0500 Body mass index (BMI) [Ratio] 36.91 kg/m2 Katelyn Luis DO Work Phone: [facility] 07-18-2024 10:02-0500 Body weight 100.61 kg Katelyn Luis DO Work Phone: [facility] 07-18-2024 10:02-0500 Diastolic blood pressure 70 mm[Hg] Katelyn Luis DO Work Phone: [facility] 07-18-2024 10:02-0500 Systolic blood pressure 130 mm[Hg] Katelyn Luis DO Work Phone: [facility] 07-04-2024 12:13-0500 Body mass index (BMI) [Ratio] 35.84 kg/m2 Little Cofield PA Work Phone: [facility] 07-04-2024 12:13-0500 Body weight 97.7 kg Little Cofield PA Work Phone: [facility] 07-04-2024 12:13-0500 Diastolic blood pressure 64 mm[Hg] Little Shahnaz PA Work Phone: [facility] 07-04-2024 12:13-0500 Systolic blood pressure 104 mm[Hg] Little Cofield PA Work Phone: [facility] 06-21-2024 13:31-0500 Body mass index (BMI) [Ratio] 35.61 kg/m2 Little Cofield PA Work Phone: [facility] 06-21-2024 13:31-0500 Body weight 97.07 kg Little Cofield PA Work Phone: [facility] 06-21-2024 13:31-0500 Diastolic blood pressure 72 mm[Hg] Little Christie PA Work Phone: [facility] 06-21-2024 13:31-0500 Systolic blood pressure 116 mm[Hg] Little Shahnaz PA Work Phone: [facility] 06-07-2024 13:49-0500 Body mass index (BMI) [Ratio] 34.61 kg/m2 Katelyn Luis DO Work Phone: [facility] 06-07-2024 13:49-0500 Body weight 94.35 kg Katelyn Luis DO Work Phone: [facility] 06-07-2024 13:49-0500 Diastolic blood pressure 70 mm[Hg] Katelyn Luis DO Work Phone: [facility] 06-07-2024 13:49-0500 Systolic blood pressure 120 mm[Hg] Katelyn Luis DO Work Phone: [facility] 05-24-2024 14:26-0500 Body mass index (BMI) [Ratio] 33.75 kg/m2 Little Shahnaz PA Work Phone: [facility] 05-24-2024 14:26-0500 Body weight 91.99 kg Little Shahnaz PA Work Phone: [facility] 05-24-2024 14:26-0500 Diastolic blood pressure 70 mm[Hg] Little Shahnaz PA Work Phone: [facility] 05-24-2024 14:26-0500 Systolic blood pressure 108 mm[Hg] Little Shahnaz PA Work Phone: [facility] 05-09-2024 11:44-0500 Body mass index (BMI) [Ratio] 33.28 kg/m2 Katelyn Luis DO Work Phone: [facility] 05-09-2024 11:44-0500 Body weight 90.72 kg Katelyn Luis DO Work Phone: [facility] 05-09-2024 11:44-0500 Diastolic blood pressure 64 mm[Hg] Katelyn Luis DO Work Phone: [facility] 05-09-2024 11:44-0500 Systolic blood pressure 118 mm[Hg] Katelyn Luis DO Work Phone: [facility] 04-11-2024 10:37-0400 Body mass index (BMI) [Ratio] 31.12 kg/m2 Little Shahnaz PA Work Phone: [facility] 04-11-2024 10:37-0400 Body weight 84.82 kg Little Shahnaz PA Work Phone: [facility] 04-11-2024 10:37-0400 Diastolic blood pressure 68 mm[Hg] Little Shahnaz PA Work Phone: [facility] 04-11-2024 10:37-0400 Systolic blood pressure 116 mm[Hg] Little Shahnaz PA Work Phone: [facility] 03-14-2024 11:44-0400 Body mass index (BMI) [Ratio] 28.62 kg/m2 Katelyn Luis DO Work Phone: [facility] 03-14-2024 11:44-0400 Body weight 78.02 kg Katelyn Luis DO Work Phone: [facility] 03-14-2024 11:44-0400 Diastolic blood pressure 74 mm[Hg] Katelyn Luis DO Work Phone: [facility] 03-14-2024 11:44-0400 Systolic blood pressure 118 mm[Hg] Katelyn Luis DO Work Phone: [facility] 02-27-2023 14:39-0400 Blood Pressure Location Gary MORRIS [facility] 02-27-2023 14:39-0400 Diastolic blood pressure 66 mm[Hg] Gary MORRIS [facility] [place] 02-27-2023 14:39-0400 Heart rate 70 /min Gary MORRIS [facility] 02-27-2023 14:39-0400 Respiratory rate 16 /min Gary MORRIS [facility] [place] 02-27-2023 14:39-0400 Systolic blood pressure 106 mm[Hg] Gary MORRIS [facility] [place] 01-08-2022 08:09-0400 Body temperature 98.01 [degF] Queta Rice DO Work Phone: [employer] 01-08-2022 08:09-0400 Body weight 75.75 kg Queta Rice DO Work Phone: [employer] 01-08-2022 08:09-0400 Diastolic blood pressure 71 mm[Hg] Queta Rice DO Work Phone: [facility] 01-08-2022 08:09-0400 Heart rate 98 /min Queta Rice DO Work Phone: [employer] 01-08-2022 08:09-0400 Systolic blood pressure 112 mm[Hg] Queta Rice DO Work Phone: [employer] 12-10-2021 14:45-0400 Body height 166.37 cm Bret Long Other [facility] Other 12-10-2021 14:45-0400 Body mass index (BMI) [Ratio] 26.55 kg/m2 Bret Long Other [facility] Other 12-10-2021 14:45-0400 Body weight 73.48 kg Bret Long Other [facility] Other 12-10-2021 14:45-0400 Diastolic blood pressure 72 mm[Hg] Bret Long Other [facility] Other 12-10-2021 14:45-0400 Systolic blood pressure 103 mm[Hg] Bret Long Other [facility] Other 11-27-2021 14:01-0400 Body temperature 98.4 [degF] Queta Rice DO Work Phone: [facility] 11-27-2021 14:01-0400 Body weight 74.84 kg Queta Rice DO Work Phone: [facility] 11-27-2021 14:01-0400 Diastolic blood pressure 64 mm[Hg] Queta Rice DO Work Phone: [facility] 11-27-2021 14:01-0400 Heart rate 98 /min Queta Rice DO Work Phone: [facility] 11-27-2021 14:01-0400 Systolic blood pressure 121 mm[Hg] Queta Rice DO Work Phone: [facility] 12-05-2020 19:26-0400 Heart rate 106 /min James Breece PA-C Work Phone: [facility] 12-05-2020 19:25-0400 Body temperature 98.29 [degF] James Breece PA-C Work Phone: [facility] 12-05-2020 19:25-0400 Body weight 97.98 kg James Breece PA-C Work Phone: [facility] 12-05-2020 19:25-0400 Diastolic blood pressure 86 mm[Hg] James Breece PA-C Work Phone: [facility] 12-05-2020 19:25-0400 Respiratory rate 16 /min James Breece PA-C Work Phone: [facility] 12-05-2020 19:25-0400 SaO2% (BldA) [Mass fraction] 97 % James Breece PA-C Work Phone: [facility] 12-05-2020 19:25-0400 Systolic blood pressure 126 mm[Hg] James Breece PA-C Work Phone: [facility] Encounters Encounter Date Encounter Type Care Provider Facility Start: 08-01-2024 End: 08-01-2024 Bamboo flowsheet Katelyn Luis DO Work Phone: [facility] Start: 08-01-2024 End: 08-01-2024 Bamboo flowsheet Katelyn Luis DO Work Phone: [facility] Start: 08-01-2024 End: 08-01-2024 Office outpatient visit 15 minutes Katelyn Luis DO Work Phone: [facility] Comment on above: Third trimester preg lenin; 38 weeks gestation of Start: 08-01-2024 End: 08-01-2024 ambulatory KATELYN LUIS Not Available Start: 07-27-2024 End: 07-27-2024 Bamboo flowsheet Little LOWRY Work Phone: [facility] Start: 07-27-2024 End: 07-27-2024 Bamboo flowsheet Little LOWRY Work Phone: [facility] Start: 07-27-2024 End: 07-27-2024 ambulatory LITTLE CHRISTIE Not Available Start: 07-27-2024 End: 07-27-2024 Office outpatient visit 15 minutes Little LOWRY Work Phone: [facility] Comment on above: Third trimester preg lenin; 38 weeks gestation of Start: 07-18-2024 End: 07-18-2024 Bamboo flowsheet Katelyn Luis DO Work Phone: [facility] Start: 07-18-2024 End: 07-23-2024 Bamboo flowsheet Katelyn Luis DO Work Phone: [facility] Start: 07-18-2024 End: 07-23-2024 Clinisync Result Encounter Katelyn Luis DO Work Phone: [facility] External Department Unsolicited Start: 07-18-2024 End: 07-18-2024 Office outpatient visit 15 minutes Katelyn Luis DO Work Phone: [facility] Comment on above: 36 weeks gestation o f ; Third trimester ; H/O cold sores Start: 07-18-2024 End: 07-18-2024 ambulatory KATELYN LUIS Not Available Start: 07-04-2024 End: 07-04-2024 Bamboo flowsheet Little LOWRY Work Phone: [facility] Start: 07-04-2024 End: 07-04-2024 Bamboo flowsheet Little Christie PA Work Phone: [facility] Start: 07-04-2024 End: 07-04-2024 Clinisync Result Encounter Katelyn Luis DO Work Phone: [facility] External Department Unsolicited Start: 07-04-2024 End: 07-04-2024 ambulatory LITTLE CHRISTIE Not Available Start: 07-04-2024 End: 07-04-2024 Office outpatient visit 15 minutes Little LOWRY Work Phone: [facility] Comment on above: Third trimester preg lenin; 34 weeks gestation of Start: 06-21-2024 End: 06-21-2024 Bamboo flowsheet Little LOWRY Work Phone: [facility] Start: 06-21-2024 End: 06-21-2024 Bamboo flowsheet Little LOWRY Work Phone: [facility] Start: 06-21-2024 End: 06-21-2024 ambulatory LITTLE CHRISTIE Not Available Start: 06-21-2024 End: 06-21-2024 Office outpatient visit 15 minutes Little LOWRY Work Phone: [facility] Comment on above: Third trimester preg lenin; 33 weeks gestation of Start: 06-07-2024 End: 06-07-2024 Bamboo flowsheet Katelyn [...] 05-24-2024 Bamboo flowsheet Little LOWRY Work Phone: [facility] Start: 05-24-2024 End: 05-24-2024 [...] 15 minutes Little Christie PA Work Phone: [facility] Comment on above: Second trimester pre gnancy; 22 weeks gestation of ; Diabetes mellitus screening Start: 04-11-2024 End: 04-11-2024 ambulatory LITTLE SHAHNAZ Not Available Start: 03-23-2024 End: 03-23-2024 ambulatory KATELYN R LUIS [facility] Start: 03-14-2024 End: 03-14-2024 Bamboo flowsheet Katelyn Luis DO Work Phone: [facility] Start: 03-14-2024 End: 03-14-2024 Bamboo flowsheet Katelyn Luis DO Work Phone: [facility] Start: 03-14-2024 End: 03-14-2024 Office outpatient visit 15 minutes Katelyn Luis DO Work Phone: [facility] Comment on above: Second trimester pre gnancy Start: 03-14-2024 End: 03-14-2024 ambulatory KATELYN LUIS [...] Domingo/Chris Kang Start: 02-23-2023 ambulatory Alexandr Bourgeois Facility:[facility] Start: 02-05-2023 ambulatory Gary MORRIS [...] . Facility:[facility] Start: 02-18-2022 ambulatory QUETA QUETA M~[id number] [facility] Start: 02-12-2022 ambulatory QUETA QUETA M~[id number] [facility] Start: 02-12-2022 End: 02-12-2022 Telemedicine consultation with patient Queta M Rice DO Work Phone: [facility] Comment on above: Anxiety (Primary Dx) Start: 01-19-2022 Refill Luis Dipalma D O Work Phone: [facility] Start: 01-19-2022 Refill Luis Dipalma D O Work Phone: [facility] Start: 01-08-2022 End: 01-08-2022 ambulatory QUETA QUETA M~[id number] [facility] Start: 01-08-2022 End: 01-08-2022 Office outpatient visit 25 minutes Queta M Rice DO Work Phone: [facility] Comment on above: Anxiety (Primary Dx) ; Hypotension, unspecified hypotension type Start: 01-08-2022 End: 01-08-2022 Patient encounter procedure Queta M Rice DO Work Phone: [facility] Start: 12-11-2021 End: 06-08-2022 ambulatory QUETA QUETA M~[id number] [facility] Start: 12-10-2021 End: 12-10-2021 ambulatory Bret Long Other [facility] Other Start: 12-10-2021 Office outpatient ne w 45 minutes Bret Long [facility] Start: 11-27-2021 End: 11-27-2021 ambulatory QUETA Huffman~[id number] [facility] Start: 11-27-2021 End: 11-27-2021 Office outpatient new 30 minutes Queta Huffman Rice DO Work Phone: [facility] Comment on above: Anxiety (Primary Dx) Start: 11-27-2021 End: 11-27-2021 Patient encounter procedure Queta Huffman Rice DO Work Phone: [facility] Start: 11-25-2021 Telephone encounter Dana Kinsey [facility] Start: 12-05-2020 End: 12-05-2020 ambulatory PHYSICIAN NO [facility] Start: 12-05-2020 End: 12-05-2020 Office outpatient new 20 minutes James Churchill PA-C Work Phone: [facility] Comment on above: Vaginal sore (Primar y Dx) Start: 02-19-2017 End: 02-19-2017 Emergency department patient visit [facility] Procedures Date Procedure Procedure Detail Performing Clinician Start: 08-01-2024 Urnls dip stick/tabl et rgnt non-auto w/o micrscp Katelyn Luis DO Work Phone: Start: 07-18-2024 Urnls dip stick/tabl et rgnt non-auto w/o micrscp Katelyn Luis DO Work Phone: Start: 07-18-2024 ALL MISCELLANEOUS TEST Katelyn Luis DO Work Phone: Start: 07-04-2024 ALL CBC WITH AUTO DIFF Katelyn Luis DO Work Phone: Start: 07-04-2024 Urnls [...] micrscp Katelyn Luis DO Work Phone: Start: 11-27-2021 Adult depression scr eening assessment Queta Rice DO Work Phone: Start: 12-05-2020 Urine test visual color cmprsn meths James Meliza DENNYC Work Phone: Start: 02-19-2017 Ct angiography chest w/contrast/noncontrast KIM SUTHERLAND Start: 02-19-2017 SALINE LOCK IV KIM ARREDONDO NER Start: 02-19-2017 TELEMETRY MONITORING MA RK ENA Start: 02-19-2017 BASIC METABOLIC PANEL M ARK ENA Start: 02-19-2017 CBC WITH AUTO DIFFERENTIAL KIM SUTHERLAND Start: 02-19-2017 TROPONIN KIM Howell Start: 02-19-2017 EKG 12-LEAD KIM Howell None (qualifier value) Henrik brothers DOMINGO Plan of Treatment Date Care Activity Detail Author Start: 08-01-2024 End: 08-01-2024 Patient encounter procedure [facility] Comment on above: Arrived Start: 07-27-2024 End: 07-27-2024 Patient encounter procedure 07/27/2024 8:50 AM EST Routine [facility] [address] [place] [address] Little Christie, PA [address] [place] [address] [place] [address] [facility] Start: 07-18-2024 End: 07-18-2025 [...] AM EST Routine [facility] [address] [place] [place] [phone] Little Christie, PA [address] [place] [address] [facility] Start: 06-21-2024 End: 06-21-2024 Patient encounter procedure 06/21/2024 1:20 PM EST Routine [facility] [address] [place] [phone] Little Christie, PA [address] [place] [address] [facility] Start: 06-07-2024 End: 06-07-2024 Patient encounter procedure 06/07/2024 1:30 PM EST Routine [facility] [address] [facility] [place] [phone] Katelyn Smith DO [address] [address] [facility] Start: 05-24-2024 End: 05-24-2024 Patient encounter procedure 05/24/2024 2:10 PM EST Routine [facility] [address] [place] [phone] Little Christie, PA [address] [place], [place] [phone] Arrived [facility] Comment on above: Arrived Start: 05-23-2024 End: 05-23-2024 Patient encounter procedure 05/23/2024 1:50 PM EST Routine [facility] [address] [place] [phone] Little Christie, PA [address] [place], [place] [id number] [facility] Start: 05-09-2024 End: 05-09-2025 [...] screening Expected: 04/11/2024 (Approximate), Expires: 04/11/2025 [facility] Comment on above: Expected: 04/11/2024 (Approximate), Expires: 04/11/2025 Start: 04-11-2024 End: 04-11-2024 Patient encounter procedure [facility] Comment on above: Arrived Start: 03-14-2024 End: 03-14-2024 Patient encounter procedure 03/14/2024 11:20 AM EDT Routine [facility] [address] [place] [place] [phone] Katelyn Smith, DO [address] [place] [address] Arrived [facility] Comment on above: Arrived Start: 03-06-2024 Influenza vaccination Influenza Vacc ine (#1) [facility] Start: 11-27-2022 Adolescent depressio n screening assessment Depression Screening [facility] Start: 03-06-2022 Influenza vaccination T [facility] Start: 02-07-2022 End: 02-07-2022 Patient encounter procedure 02/07/2022 Office Visit [facility] Queta Osorio DO [address] [place] [phone] [facility] Start: 12-19-2021 End: 12-19-2021 Patient encounter procedure 12/19/2021 Office Visit [facility] Queta Osorio DO [address] [place] [phone] [facility] Start: 12-07-2021 COVID-19 Vaccine (3 - Booster for Moderna series) COVID-19 Vaccine (3 - Booster for Moderna series) [facility] Start: 11-27-2021 End: 11-27-2021 Patient encounter procedure 11/27/2021 Office Visit Family Medicine Queta Osorio, DO [address] [place] [address] [facility] Start: 11-24-2021 Adolescent depressio n screening assessment Depression Screening [facility] Start: 11-24-2021 Hepatitis C screening Hepatitis C Sc reening [facility] Start: 11-24-2021 HIV screening HIV Screening [facility] Start: 11-24-2021 Social Influencers o f Health Screening Social Influencers of Health Screening [facility] Start: 03-06-2021 Influenza vaccination Sequenti al Influenza Vaccine (Season Ended) [facility] Start: 2017 Screening for malign ant neoplasm of cervix Cervical Cancer Screening: Pap Smear [facility] Start: 2015 DTaP,Tdap,and Td Vaccines (1 - Tdap) DTaP,Tdap,and Td Vaccines (1 - Tdap) [facility] Start: 2014 Hepatitis C screening Hepatitis C Sc reening [facility] Start: 2011 HIV screening HIV Screening [facility] Start: 2008 COVID-19 Vaccine (1) COVID-19 Vaccin e (1) [facility] Start: 2008 Depression screening using PHQ-9 (Patient Health Questionnaire 9) score Depression Screening (PHQ9) [facility] Start: 2007 HPV Vaccines (1 - 2- dose series) HPV Vaccines (1 - 2-dose series) [facility] Start: 2007 Vaccination for april n papillomavirus HPV Vaccines (1 - 2-dose series) [facility] Start: 2001 COVID-19 Vaccine (1) COVID-19 Vaccin e (1) [facility] Start: 1999 History and physical examination, annual for health maintenance Wellness Visit [facility] Start: 1996 Screening for Chlamy marilee trachomatis Chlamydia Screening [facility] Start: 1996 Screening for malign ant neoplasm of cervix Pap Smear [facility] Start: 1996 Tetanus vaccination Tetanus: Every 1 0yrs [facility] Chlamydia trachomati s rRNA assay Chlamydia/GC/Trichomona s Amplified RNA Microbiology Routine Vaginal sore Ordered: 12/05/2020 [facility] Comment on above: Ordered: 12/05/2020 HSV by PCR Superfici al Site HSV by PCR Superficial Site Lab Routine Vaginal sore Ordered: 12/05/2020 [facility] Comment on above: Ordered: 12/05/2020 Neisseria gonorrhoea e nucleic acid detection Chlamydia/Gonorrhoeae Amplified RNA Microbiology Routine Vaginal sore Ordered: 12/05/2020 [facility] Comment on above: Ordered: 12/05/2020 Trichomonas vaginali s Amplified RNA Trichomonas vaginalis Amplified RNA Microbiology Routine Vaginal sore Ordered: 12/05/2020 [facility] Comment on above: Ordered: 12/05/2020 Immunizations Immunization Date Immunization Notes Care Provider Bj mcintosh 07-09-2021 SARS-CoV-2 (COVID-19 ) mRNA-1273 vaccine Gary DOMINGO [facility] 06-08-2021 SARS-CoV-2 (COVID-19 ) mRNA-1273 vaccine Gary MORRIS [facility] [place] 04-10-2011 influenza virus vaccine, unspecified formulation Katelynkatrin Smith Work Phone: [facility] Payers Date Payer Category Payer Private Health Insurance [facility] MEDICAID [id number] 2021 Medicaid [id number] 2020 Medicaid [id number]. [id number] 2016 Unknown [id number] 2013 Unknown [id number] 1996 Unknown [id number] 2.16.840.1.520065.3.579.2. 903 1996 Unknown [id number] 2.16.840.1.248979.3.579.2. 1143 1996 Unknown [id number] 2.16.840.1.656295.3.579.2. 1143 1996 Unknown [id number] 2.16.840.1.434941.3.579.2. 1143 1996 Unknown [id number] 2.16.840.1.783801.3.579.2. 1143 1996 Unknown [id number] 2.16.840.1.674259.3.579.2. 1143 1996 Unknown [id number] 2.16.840.1.970902.3.579.2. 593 1996 Unknown [id number] 2.16.840.1.472906.3.579.2. 593 1996 Unknown [id number] 2.16.840.1.314470.3.579.2. 593 1996 Unknown [id number] 2.16.840.1.306273.3.579.2. 593 1996 Unknown [id number] 2.16.840.1.025797.3.579.2. 593 1996 Unknown [id number] 2.16.840.1.237544.3.579.2. 593 1996 Unknown [id number] 2.16.840.1.887626.3.579.2. 593 1996 Unknown [id number] 2.16.840.1.032209.3.579.2. 727 1996 Unknown [id number] 2.16.840.1.664173.3.579.2. 1286 1996 Unknown [id number] 2.16.840.1.921785.3.579.2. 1285 1996 Unknown [id number] 2.16.840.1.917541.3.579.2. 1258 1996 Unknown [id number] 2.16.840.1.019055.3.579.2. 1258 1996 Unknown [id number] 2.16.840.1.827122.3.579.2. 1258 1996 Unknown [id number] 2.16.840.1.012355.3.579.2. 1258 1996 Unknown [id number] 2.16.840.1.516241.3.579.2. 1258 1996 Unknown [id number] 2.16.840.1.543193.3.579.2. 1258 1996 Unknown [id number] 2.16.840.1.732235.3.579.2. 1258 1996 Unknown [id number] 2.16.840.1.161147.3.579.2. 1258 1996 Unknown [id number] 2.16.840.1.937496.3.579.2. 1258 1996 Unknown [id number] 2.16.840.1.516384.3.579.2. 1258 1996 Unknown [id number] 2.16.840.1.543389.3.579.2. 1258 1996 Unknown [id number] 2.16.840.1.973253.3.579.2. 1258 1996 Unknown [id number] 2.16.840.1.197612.3.579.2. 1258 1996 Unknown [id number] 2.16.840.1.816878.3.579.2. 125 1960 Unknown [id number] 2.16.840.1.341523.3.579.2. 727 1959 Medicaid [id number] 1959 Self-pay 1959 Unknown [id number] 1959 Unknown [id number] 1959 Unknown [id number] Unknown [id number] 2.16.840.1.098345.3.579.2. 531 Social History Date Type Detail Facility Start: 12-05-2020 End: 02-27-2023 Tobacco smoking status NHIS Never smoker [facility] Start: 12-05-2020 End: 11-27-2021 Tobacco use and exposure Never used [facility] Start: 12-05-2020 Alcohol intake Current drinke r of alcohol (finding) [facility] Start: 12-05-2020 End: 11-27-2021 History SDOH Alcohol Frequency 1 [facility] Start: 12-05-2020 Alcohol Comment occ [facility] Start: 1996 Sex Assigned At Not on file O [facility] Start: 11-17-2021 End: 02-12-2022 Exposure to SARS-CoV-2 (event) Not sure [facility] Tobacco smoking stat [facility] Tobacco smoking consumption unknown [facility] Start: 11-27-2021 End: 08-01-2024 Alcohol intake Lifetime non-drinker (finding) [facility] Start: 1996 Sex Assigned At Female T [facility] Start: 12-17-2023 Sex Assigned At F [facility] Tobacco smoking status Never [facility] Start: 03-28-2023 Tobacco smoking stat [facility] Ex-smoker [facility] History of tobacco use Current smoker [facility] History of tobacco use Cigarette Smoker [facility] Start: 12-17-2023 History of Social function [facility] Start: 11-17-2023 [facility] Start: 01-19-2023 Gender identity Identifies as female gender (finding) [facility] Healthcare Functional Status Date Assessment Result Facility 02-27-2023 Functional Status N/A [facility] Clinical Notes 12-05-2020 to 08-01-2024 Shalonda Tse LPN - 08/01/2024 1:20 PM ESSENCE Mahan - 07/27/2024 8:50 AM Nahid Tse LPN - 07/18/2024 10:00 AM ESSENCE Mahan - 07/04/2024 11:50 AM EST Note Date & Type Note Facility 08-01-2024 History of Present illness Narrative Reason for [...] SYSTEMS Review of Systems: Review of Systems OBJECTIVE Objective: OBGyn Exam Vitals: Estimated body mass index is 37.77 kg/m as calculated from the following: Height as of 02/02/23: 5' 5 . Weight as of this encounter: 227 lb. BP: 120/72 Patient's last menstrual period was 11/03/2023. ASSESSMENT & PLAN ICD-10-CM 1. Third trimester Z34.93 POCT urinalysis dipstick manually resulted 2. 38 weeks gestation of Z3A.38 Documented by Shalonda Tse LPN on behalf of: Katelyn Smith DO documented in this encounter [facility] 07-27-2024 History of Present illness Narrative Reason [...] of: ESSENCE Haley documented in this encounter [facility] 07-18-2024 History of Present illness Narrative Reason [...] nursing note reviewed. Exam conducted with a clinical trial specialist present. Vitals: Estimated body mass index is [...] by Shalonda Tse LPN on behalf of: Katelyn Smith DO documented in this encounter [facility] 07-04-2024 History of Present illness Narrative Reason [...] nursing note reviewed. Exam conducted with a clinical trial specialist present. Vitals: Estimated body mass index is [...] of: ESSENCE Haley documented in this encounter [facility] 06-21-2024 History of Present illness Narrative Reason [...] nursing note reviewed. Exam conducted with a clinical trial specialist present. Vitals: Estimated body mass index is [...] Little Christie PA-C documented in this encounter [facility] 06-07-2024 History of Present illness Narrative Reason [...] nursing note reviewed. Exam conducted with a clinical trial specialist present. Vitals: Estimated body mass index is [...] Katelyn Smith DO documented in this encounter [facility] 05-24-2024 History of Present illness Narrative Reason [...] of: ESSENCE Haley documented in this encounter [facility] 05-09-2024 History of Present illness Narrative Reason [...] nursing note reviewed. Exam conducted with a clinical trial specialist present. Vitals: Estimated body mass index is [...] Katelyn Smith DO documented in this encounter [facility] 04-11-2024 History of Present illness Narrative Reason [...] of: ESSENCE Haley documented in this encounter [facility] 03-14-2024 History of Present illness Narrative Reason [...] nursing note reviewed. Exam conducted with a clinical trial specialist present. Vitals: Estimated body mass index is [...] by Shalonda Tse LPN on behalf of: Katelyn Smith DO documented in this encounter [facility] 02-27-2023 Note Chief Complaint consultation for back [...] with excisional biopsy under local anesthesia at [facility]; call with problems/questions. Follow-up No [...] (COVID-19) mRNA-1273 vaccine 06/08/2021 Recorded [facility] Comment on above: Result Comment: Elec tronically Signed By: DOMINGO RANGEL, Gary Jackson\Date and Time Signed: 02/27/23 16:20 EDT 02-12-2022 History of Present illness Narrative Attempted to complete Mchart and patient was not online despite speaking to SD prior to appointment. Attempted to call on phone 3 separate times before noon with no answer. May reschedule at later date. documented in this encounter [facility] 01-08-2022 History of Present illness Narrative [...] due to buspirone. documented in this encounter [facility] 12-10-2021 Evaluation note Encounter Date Diagnosis Assessment Notes Dec, Irritable bowel syndrome with diarrhea (ICD-10 - K58.0) Continue medications without change Dec, Epigastric pain (ICD-10 - R10.13) Dec, Chronic nausea (ICD-10 - R11.0) Dec, Family history of carcinoma in situ of anal canal (ICD-10 - Z84.89) Dec, Other Continue Zofran prn Pt to call if symptoms worsen [facility] Other 05-25-2022 History of Present illness Narrative* Queta Osorio DO - 11/27/2021 2:00 PM EDT Subjective Patient ID: Leslie Ford is a 26 y.o. female. Chief Complaint Patient presents with [facility] 26 y.o. female presents to [facility]. History of anxiety and depression. Has [...] it ( July 2017) documented [facility] encounter[facility] [id number] History of Present illness Narrative* Dana Rosaroi MA - 11/25/2021 12:19 PM EDT Lvm [...] like me to do? documented in this encounterJefferson [id number] History of Present illness Narrative* James Churchill PA-C - 12/05/2020 8:22 PM EDT Images from the original note were not included. Patient Name: [facility] [place] [id number] Date Of : Date Of Visit: 1995 12/05/2020 MRN# Provider: [id number] James Churchill PA-C Chief Complaint Patient presents [...] urine from irritatingthe sores. ? Take an izna-ajs-ukwfpbx pain medicine, such as acetaminophen (Tylenol), ibuprofen [...] Log into your personal health record on [email or web address] and enter [email or web address] in the Education box to learn more about Genital Herpes: Care Instructions. Current as of: August 31, 2019 Content Version: 12.8 [employer]. Care instructions adapted under license by your healthcare professional. If you have questions about a medical condition or this instruction, always ask your healthcare professional. [employer] disclaims any warranty or liability for your use of this information. documented in this [id number] Instructions* Patient Instructions* James Churchill PA-C - [...] urine from irritatingthe sores. ? Take an vntw-xhm-rsuerkc pain medicine, such as acetaminophen (Tylenol), ibuprofen [...] Log into your personal health record on [email or web address] and enter [email or web address] in the Education box to learn more about Genital Herpes: Care Instructions. Current as of: August 31, 2019 Content Version: 12.8 [employer]. Care instructions adapted under license by your healthcare professional. If you have questions about a medical condition or this instruction, always ask your healthcare professional. [employer] disclaims any warranty or liability for your use of this information. [facility] + [facility] note No data available for this section [facility] Evqbbation note* Diagnosis Vaginal sore- Primary [facility] Diagnosis Anxiety- Primary Anxiety state, unspecified [facility] Diagnosis Anxiety- Primary Anxiety state, unspecified Hypotension, unspecified hypotension type [facility] Diagnosis Anxiety- Primary Anxiety state, unspecified [facility]* Diagnosis Second trimester state, incidental 22 weeks gestation of Diabetes mellitus screening Screening for diabetes mellitus documented in this encounter [facility] HealthcareEvaluation note* Diagnosis Second trimester state, incidental 26 weeks gestation of History of miscarriage Personal history of other genital system and obstetric disorders documented in this encounter [facility] HealthcareEvaluation note* Diagnosis 31 weeks gestation of Third trimester state, incidental Gastroesophageal reflux in documented in this encounter [facility] HealthcareEvaluation note* Diagnosis Third trimester state, incidental 33 weeks gestation of documented in this encounter [facility] HealthcareEvaluation note* Diagnosis Second trimester state, incidental documented in this encounter [facility] HealthcareEvaluation note* Diagnosis Third trimester state, incidental 29 weeks gestation of Upper respiratory tract infection, unspecified type documented in this encounter [facility] HealthcareEvaluation note* Diagnosis Third trimester state, incidental 34 weeks gestation of [facility]* Diagnosis 36 weeks gestation of Third trimester state, incidental H/O cold sores documented in [facility]* Diagnosis Third trimester state, incidental 38 weeks gestation of documented in [facility]* Diagnosis Third trimester state, incidental 38 weeks gestation of documented in this encounter [facility] HealthcareHistory general Narrative - Reported* Type Description Date Medical History [facility] Other Hospital Discharge instructions No data available [...] FoundDocuments on File Type Date 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 Directives and Living Will Documents on File Type Date 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 Power of Creative Designer Additional Source Comments INFORMATION SOURCE (unrecogn ized section and content) DATE CREATED AUTHOR 12/30/2017 [facility] DATE CREATED AUTHOR AUTHOR'S ORGANIZ ATION 12/06/2020 [facility] DATE CREATED AUTHOR AUTHOR'S ORGANIZ ATION 02/16/2022 [facility] DATE CREATED AUTHOR AUTHOR'S ORGANIZ ATION 02/27/2022 [facility] DATE CREATED AUTHOR AUTHOR'S ORGANIZ ATION 11/14/2022 [facility] DATE CREATED AUTHOR AUTHOR'S ORGANIZ ATION 03/02/2023 [facility] DATE CREATED AUTHOR AUTHOR'S ORGANIZ ATION 07/05/2023 [facility] DATE CREATED AUTHOR AUTHOR'S ORGANIZ ATION 03/25/2024 [facility] DATE CREATED AUTHOR AUTHOR'S ORGANIZ ATION 08/02/2024 [facility] dical Specialists EPIC Reason for Visit [...] Care Teams (unrecognized sec tion and content) Laboratory Analyst Relationship Specialty Start Date End Date Queta Osorio, DO [address] [place] [phone] PCP - General Family Medicine 11/27/21 Laboratory Analyst Relationship Specialty Start Date End Date Queta Osorio, DO [address] [place] [phone] PCP - General Family Medicine 11/27/21 Laboratory Analyst Relationship Specialty Start Date End Date Lalito Osoriojuana Huffman, DO [address] [place] [phone] PCP - General Family Medicine 11/27/21 Laboratory Analyst Relationship Specialty Start Date End Date Homar Beltran MD [address] [place] [phone] PCP - General Family Medicine 01/20/23 Laboratory Analyst Relationship Specialty Start Date End Date Homar Beltran MD [address] [facility], [facility] PCP - General Family Medicine 01/20/23 Laboratory Analyst Relationship Specialty Start Date End Date Homar Beltran MD [address] [facility], [facility] PCP - General Family Medicine 01/20/23 Laboratory Analyst Relationship Specialty Start Date End Date Homar Beltran MD [address] [facility], [facility] PCP - General Family Medicine 01/20/23 Laboratory Analyst Relationship Specialty Start Date End Date Homar Beltran MD [address] [facility], [facility] PCP - General Family Medicine 01/20/23 Laboratory Analyst Relationship Specialty Start Date End Date Homar Beltran MD [address] [facility] [place] [address] PCP - General Family Medicine 01/20/23 Laboratory Analyst Relationship Specialty Start Date End Date Homar Beltran MD [address] [facility], [facility] PCP - General Family Medicine 01/20/23 Laboratory Analyst Relationship Specialty Start Date End Date Homar Beltran MD [address] [facility] [place] [address] PCP - General Family Medicine 01/20/23 Laboratory Analyst Relationship Specialty Start Date End Date Homar Beltran MD [address] [facility] [place] [address] PCP - General Family Medicine 01/20/23 Laboratory Analyst Relationship Specialty Start Date End Date Homar Beltran MD [address] [facility] [place] [address] PCP - General Family Medicine 01/20/23 Laboratory Analyst Relationship Specialty Start Date End Date Homar Beltran MD [address] [facility] [place] [address] PCP - General [facility] Medicine 01/20/23 Laboratory Analyst Relationship Specialty Start Date End Date Homar Beltran MD [address] [facility] [place] [address] PCP - General Family Medicine 01/20/23 Laboratory Analyst Relationship Specialty Start Date End Date Homar Beltran MD [address] [facility] [place] [address] PCP - General Family Medicine 01/20/23 FOR [...] BE BASED ON THE PRIMARY CLINICAL RECORDS. [facility] [employer] [facility]. provides no warranty or guarantee of the accuracy or completeness of information in this document.
[2024-08-03 06:18] LABS: Hematocrit 33.8 % (36.0-48.0); Mean Corpuscular HGB Conc 32.5 g/dL (29.9-35.2); Mean Corpuscular Hemoglobin 25.6 pg (26.7-34.0); Mean Corpuscular Volume 78.8 fL (81.0-99.0); Mean Platelet Volume 10.6 fL (9.5-13.5); Platelet Count 418 10^3/uL (150-450); Red Blood Count 4.29 10^6/uL (4.20-5.40); Red Cell Distribution Width 14.9 % (11.0-15.0); White Blood Count 17.9 10^3/uL (4.0-11.0)
[2024-08-03] MEDS: 0.9 % SODIUM CHLORIDE 1,000 ML 125 ML IV (06:25)
[2024-08-03] MEDS: ONDANSETRON PF 4 MG/2 ML VIAL IV ×2 (06:25→11:23)
[2024-08-03] MEDS: OXYTOCIN/0.9 % SODIUM CHLORIDE 10 UNITS/500 ML PLAST..BAG 6 UNIT IV (06:27)
[2024-08-03 06:33] LABS: Amphetamine Screen Urine NEGATIVE (NEGATIVE); Barbiturates Screen Urine NEGATIVE (NEGATIVE); Benzodiazepines Screen Urine NEGATIVE (NEGATIVE); Buprenorphine Screen Urine NEGATIVE (NEGATIVE); Cannabinoid Screen Urine POSITIVE (NEGATIVE); Cocaine Screen Urine NEGATIVE (NEGATIVE); Methadone Screen Urine NEGATIVE (NEGATIVE); Methamphetamines Screen Urine NEGATIVE (NEGATIVE); Opiate Screen Urine NEGATIVE (NEGATIVE); Oxycodone Screen Urine NEGATIVE (NEGATIVE); Phencyclidine Screen Urine NEGATIVE (NEGATIVE); Tricyclic Antidepressant Urine NEGATIVE (NEGATIVE)
[2024-08-03] MEDS: CALCIUM CARBONATE 500 MG (200MG ELEMENTAL) TAB CHEW PO ×2 (11:23→13:14)
[2024-08-03] MEDS: 0.9 % SODIUM CHLORIDE 1,000 ML 1000 ML IV (14:18)
[2024-08-03] MEDS: NALBUPHINE HCL 10 MG/ML AMPULE IV ×2 (15:06→18:14)
[2024-08-03] MEDS: OXYTOCIN/0.9 % SODIUM CHLORIDE 20 UNITS/1,000 ML PLAST..BAG 125 UNIT IV (19:24)
--- NOTE | 2024-08-03 19:27 | PM.OBPRCVD ---
Procedure Intrapartal events: None Induction method: per pitocin protocol Delivery augmentation: rupture of membranes and pitocin Delivery monitor: external FHT and external uterine Route of delivery: Episiotomy Description: none L&D Laceration Description: none Estimated blood loss (mL): 250 Anesthesia type: Epidural Disposition: floor Delivery date: 08/03/24 Gender: female presentation: vertex Placental delivery description: Spontaneous cord description: 3 Vessels
[2024-08-03] MEDS: IBUPROFEN 600 MG TABLET PO (19:53)
[2024-08-04] MEDS: IBUPROFEN 600 MG TABLET PO ×2 (06:19→18:12)
[2024-08-04 07:24] LABS: Basophils Absolute Auto 0.1 10^3/uL (0.0-0.1); Basophils Percent Auto 0.4 % (0.2-2.0); Eosinophils Absolute Auto 0.2 10^3/uL (0.0-0.7); Eosinophils Percent Auto 1.2 % (0.9-7.0); Hematocrit 30.1 % (36.0-48.0); Hemoglobin 9.5 g/dL (12.0-16.0); Immature Granulocytes Abs Auto 0.22 10^3/uL (0.00-0.03); Immature Granulocytes Pct Auto 1.2 % (0.0-0.5); Lymphocytes Absolute Auto 2.2 10^3/uL (1.2-3.8); Lymphocytes Percent Auto 12.3 % (20.5-60.0); Mean Corpuscular HGB Conc 31.6 g/dL (29.9-35.2); Mean Corpuscular Hemoglobin 25.1 pg (26.7-34.0); Mean Corpuscular Volume 79.4 fL (81.0-99.0); Monocytes Absolute Auto 1.2 10^3/uL (0.3-0.8); Monocytes Percent Auto 6.5 % (1.7-12.0); Neutrophils Absolute Auto 14.2 10^3/uL (1.4-6.5); Neutrophils Percent Auto 78.4 % (43.0-75.0); Platelet Count 371 10^3/uL (150-450); Red Blood Count 3.79 10^6/uL (4.20-5.40); White Blood Count 18.1 10^3/uL (4.0-11.0)
--- NOTE | 2024-08-04 08:53 | PM.OBPN ---
OB - PN: Subj Subjective Patient comments: no complaints [place] status: doing well feeding status: exclusively Exam Constitutional Vital Signs, click to edit/add: Last Vital Signs Temp 98.1 F 08/03/24 23:36 Pulse 70 08/03/24 23:36 Resp 16 08/03/24 23:36 BP 116/67 08/03/24 23:36 O2 Del Method Room Air 08/03/24 23:36 Common normals: no apparent distress General appearance: cooperative and comfortable Orientation/consciousness: Yes awake, Yes oriented to person, Yes oriented to place and Yes oriented to time HENMT Common normals: normocephalic Eye Common normals: EOMs intact bilaterally General eye: normal appearance of both eyes Neck & C-Spine Common normals: full ROM and no lymphadenopathy Lymph Lymphatic: no lymphadenopathy noted Chest Common normals: inspection of chest normal Respiratory Common normals: normal respiratory effort Effort & inspection: able to speak in complete sentences Auscultation: clear to auscultation bilaterally Cardio Common normals: regular rate and regular rhythm Rate: regular rate Rhythm: regular rhythm GI Common normals: Normal to inspection, nondistended, normoactive bowel sounds present and non-tender Inspection: normal to inspection Palpation: soft Common normals: no CVA tenderness Back & Pelvis Common normals: no CVA tenderness Thoracic spine/upper back: normal to inspection Lumbar spine/lower back: normal to inspection Extremity Common normals: normal to inspection and full ROM Neuro Common normals: oriented x3 Sensorium/orientation: awake Psych Common normals: mental status grossly normal, thought process normal, cooperative, affect normal, speech normal, activity/motor behavior normal, denies hallucinations, denies homicidal ideation and denies suicidal ideation Attitude: calm Activity/motor behavior: appropriate eye contact Thought process: normal thought process Results Labs Labs: Short CBC 08/04/24 Range/Units 07:14 WBC 18.1 H (4.0-11.0) 10^3/uL Hgb 9.5 L (12.0-16.0) g/dL Hct 30.1 L (36.0-48.0) % Plt Count 371 (150-450) 10^3/uL OB - PN: A/P Plan - Vaginal Delivery day: 1 Plan: routine care Time Spent with Patient Time: Total time spent is greater than 50% in coordination of care (as documented) at patient's floor/unit and/or counseling patient: Total time spent with greater than 50% in coordination of care (as documented) at patient's floor/unit and/or counseling patient: less than 15 minutes
[2024-08-04 10:32] VITALS: BP 116/70; PULSE 77; TEMP 36.7
[2024-08-04 14:45] VITALS: TEMP 37.4
[2024-08-04 14:46] VITALS: BP 126/78; PULSE 83
[2024-08-04] MEDS: DOCUSATE SODIUM 100 MG CAPSULE PO ×2 (18:13→20:59)
[2024-08-05 00:05] VITALS: BP 121/69; PULSE 57; TEMP 36.6
[2024-08-05] MEDS: IBUPROFEN 600 MG TABLET PO ×2 (00:08→08:56)
--- NOTE | 2024-08-05 07:46 | PM.OBPN ---
OB - PN: Subj Subjective Patient comments: no complaints [place] status: doing well feeding status: exclusively Exam Constitutional Vital Signs, click to edit/add: Last Vital Signs Temp 97.9 F 08/05/24 00:05 Pulse 57 L 08/05/24 00:05 Resp 16 08/04/24 10:32 BP 121/69 08/05/24 00:05 O2 Del Method Room Air 08/05/24 00:05 Documenting provider has reviewed patient's vital signs: yes Common normals: no apparent distress General appearance: cooperative and comfortable Orientation/consciousness: Yes awake, Yes oriented to person, Yes oriented to place and Yes oriented to time HENMT Common normals: normocephalic Head and scalp: normal to inspection Eye Common normals: EOMs intact bilaterally Neck & C-Spine Common normals: full ROM and no lymphadenopathy Lymph Lymphatic: no lymphadenopathy noted Chest Common normals: inspection of chest normal Respiratory Common normals: normal respiratory effort Effort & inspection: able to speak in complete sentences Cardio Common normals: regular rate and regular rhythm Rate: regular rate Rhythm: regular rhythm GI Common normals: Normal to inspection, nondistended, normoactive bowel sounds present Inspection: normal to inspection Auscultation: normoactive bowel sounds Palpation: soft Common normals: no CVA tenderness Back & Pelvis Common normals: no CVA tenderness Extremity Common normals: normal to inspection Neuro Common normals: oriented x3 Sensorium/orientation: awake, alert, oriented to person, oriented to place and oriented to time Psych Common normals: mental status grossly normal Appearance: grossly normal Attitude: calm Activity/motor behavior: appropriate eye contact OB - PN: A/P Plan - Vaginal Delivery day: 2 Plan: discharge home Time Spent with Patient Time: Total time spent is greater than 50% in coordination of care (as documented) at patient's floor/unit and/or counseling patient: Total time spent with greater than 50% in coordination of care (as documented) at patient's floor/unit and/or counseling patient: less than 15 minutes
[2024-08-05 08:44] VITALS: BP 114/79; PULSE 86
[2024-08-05] MEDS: DOCUSATE SODIUM 100 MG CAPSULE PO (08:56)
[2024-08-05 09:00] VITALS: TEMP 37.3
[2024-08-05 11:10] LABS: Bilirubin Urine NEGATIVE (NEGATIVE); Blood Urine MODERATE (NEGATIVE); Clarity Urine CLEAR (CLEAR); Color Urine LT. YELLOW (YELLOW); Glucose Urine UA NEGATIVE (NEGATIVE); Ketones Urine NEGATIVE (NEGATIVE); Leukocyte Esterase Urine TRACE (NEGATIVE); Nitrite Urine NEGATIVE (NEGATIVE); Protein Urine NEGATIVE (NEG/TRACE); Specific Gravity Urine 1.015 (1.005-1.025); Urobilinogen Urine 0.2 EU/dL (0.2-1.0)
[2024-08-05 11:13] LABS: Urine Microscopic Indicated YES
[2024-08-05 11:24] LABS: Bacteria Urine TRACE #/HPF (NONE SEEN); Crystals Seen? Seen #/HPF (None Seen); Mucus Urine SMALL (NONE SEEN); Squamous Epithelial Cell Urine MODERATE #/LPF (NONE/RARE)
[2024-08-05 11:25] LABS: Amorphous Sediment Urine MODERATE; Cast Seen? SEEN #/LPF (NONE SEEN); Fine Granular Casts Urine RARE; Urine Culture Indicated NO
[2024-08-05] MEDS: ADACEL DIPH,PERTUSS(ACELL),TET VAC/PF 0.5 ML ADULT SYRINGE IM (12:22)
[2024-08-05] MEDS: MEASLES,MUMPS,RUBELLA VACC/PF 0.5 ML VIAL SQ (12:27)
[2024-08-06 18:12] LABS: Cannabinoid Positive (.); Carboxy THC Conf, MS, UR 386 ng/mL (Cutoff=10)
== END 2024-08-05 12:40 | disposition home or self-care (01) | DRG 560 ==
PROVIDERS: Admitting Provider Obstetrics & Gynecology; PCP Family Medicine; Visit Provider Obstetrics & Gynecology
DX: O98.52 Other viral diseases complicating childbirth (principal); B00.9 Herpesviral infection, unspecified; Z3A.39 39 weeks gestation of pregnancy; Z37.0 Single live birth; Z87.891 Personal history of nicotine dependence; O99.324 Drug use complicating childbirth; F12.90 Cannabis use, unspecified, uncomplicated
CPT/HCPCS: 36415; 59050; 59410; 80307; 80349; 81001; 85025; 85027; 86850; 86900; 86901; 90707; 90715; J2300; J2405

== ENCOUNTER 2025-02-20 15:29 | Outpatient (REF) | payer OTHER, SELFPAY ==
--- OUTSIDE RECORDS SUMMARY | 2025-02-20 17:14 | XMS_ITS | CCD ---
Author Organization [facility] Care Team Providers Care Household Cook Name Role Phone KIM SUTHERLAND Unavailable Unavailable WILLY CONKLIN Unavailable Unavailable HOMAR BELTRAN Unavailable Unavailable HOMAR BELTRAN Unavailable Unavailable No, Physician Primary Care Provider Unavailsuman e FINN, PHYSICIAN Primary Care Unavailable JAMES ALCAZAR Attending Unavailable Unavailable Primary Care Provider Unavailsuman e Wiley Osorio DO Primary Care Provider Bret Logn Unavailable RICE RICE, WILEY WILEY M~[phone] Attending Unavailable RICE RICE, WILEY WILEY M~[id number] Primary Ca re Unavailable RICE RICE, WILEY WILEY M~[id number] Attending Unavailable RICE RICE, WILEY WILEY M~[id number] Primary Ca re Unavailable RICE RICE, WILEY WILEY M~[id number] Attending Unavailable RICE RICE, WILEY WILEY M~[id number] Primary Ca re Unavailable RICE RICE, WILEY WILEY M~[id number] Attending Unavailable RICE RICE, WILEY WILEY M~[id number] Primary Ca re Unavailable RICE RICE, WILEY WILEY M~[id number] Referring Unavailable RICE RICE, WILEY WILEY M~[id number] Primary Ca re Unavailable ITA REYES Admitting [...] Care Physician Gary MORRIS Attending Unavailable ChristelleAlexandr Attending Unavailab luis felipe Bourgeois, Alexandr Admitting Unavailab Homar Mcgowan Primary Care Unavailable KELIN SMITHY R Referring Unavailable HOMAR BELTRAN Primary Care Unavailable SENAIT MARTIN Attending Unavailable LUIS, BERTO R Referring Unavailable HOMAR BELTRAN Primary Care Unavailable Homar Beltran MD Primary Care Provider [phone] EZRA, LITTLE Attending Unavailable LUIS, BERTO Attending Unavailable EZRA, LITTLE Attending Unavailable EZRA, LITTLE Attending Unavailable LUIS, BERTO Attending Unavailable EZRA, LITTLE Attending Unavailable LUIS, BERTO Attending Unavailable EZRA, LITTLE Attending Unavailable LUIS, BERTO Attending Unavailable EZAR, LITTLE Attending Unavailable LUIS, BERTO Attending Unavailable EZRA, LITTLE Attending Unavailable EZRA, LITTLE Attending Unavailable LUIS, BERTO Attending Unavailable Homar Beltran MD Primary Care Provider [phone] Allergies Allergy Classification Reported Allergen(s) Allergy Type Date of Onset Reaction(s) Facility (1 source) No Known Medication Allergies; Translations: [No Known Medication Allergies] Propensity to adverse reactions (disorder) [facility] Repository Medications Current Medications Medication Drug Class(es) Dates Sig (Normalized) Sig (Original) aspirin 81 mg delayed release oral tablet (20 sources) Platelet Aggregation Inhibitor, Nonsteroidal Anti-inflammatory Drug Start: 03-23-2024 End: 03-12-2025 take 1 tablet by mouth in the morning aspirin 81 MG EC tablet Take 81 mg by mouth in the morning. 03/23/2024 09/14/2024 Discontinued busPIRone hydrochloride 10 mg oral tablet (5 [...] 0 08/10/2021 Active hyoscyamine sulfate 0.125 mg sublingual tablet (10 sources) Start: 09-01-2024 take 1 tablet by mouth every four hours as needed hyoscyamine (Levsin) 0.125 MG SL tablet Take 0.125 mg by mouth every 4 (four) hours if needed for cramping 09/01/2024 Active Start: 02-27-2023 Levsin 0.125 m g SL [...] crush or chew.. 30 capsule 3 06/07/2024 09/14/2024 Discontinued ondansetron 4 mg disintegrating oral tablet (20 [...] Start Date: 02/27/23 Status: Ordered Start: 01-02-2023 End: 09-14-2024 take 1 tablet by mouth every eight hours as needed ondansetron ODT (Zofran-ODT) 4 MG disintegrating tablet Take 4 mg by mouth every 8 (eight) hours if needed. 01/02/2023 09/14/2024 Discontinued Start: 12-05-2021 End: 01-19-2022 take 2 tablets [...] allow to dissolve Orally q8h prn Active phentermine hydrochloride 37.5 mg oral tablet (5 sources) Sympathomimetic Amine Anorectic Start: 09-01-2024 End: 02-20-2025 take 1 tablet by mouth before mealtime phentermine (Adipex-P) 37.5 MG tablet Take 37.5 mg by mouth in the morning. Take before meals. 09/01/2024 02/20/2025 Discontinued Vit-Fe Fumarate-FA ( Plus/Iron) 27-1 MG tablet (20 sources) Start: 12-17-2023 End: 09-14-2024 take 1 tablet by mouth once daily Vit-Fe Fumarate-FA ( Plus/Iron) 27-1 MG tablet Indications: care, antepartum Take 1 tablet by mouth Daily 30 tablet 12/17/2023 09/14/2024 Discontinued Start: 12-17-2023 End: 12-16-2024 take 1 tablet by mouth once daily Vit-Fe Fumarate-FA ( Plus/Iron) 27-1 MG tablet Indications: care, antepartum Take 1 tablet by mouth Daily 30 tablet 12/17/2023 12/16/2024 Active promethazine hydrochloride 12.5 mg [...] 03/09/2022 Active valACYclovir 500 mg oral tablet (13 sources) Herpesvirus Nucleoside Analog DNA Polymerase Inhibitor, [...] but less than 30 02-27-2023 Episodic Other screening for suspected conditions (not [...] of ] 04-11-2024 Episodic Residual codes; unclassified (2 sources) Gestation period, 31 weeks; Translations: [31 weeks gestation of ] 06-07-2024 Episodic Residual codes; unclassified (2 sources) Gestation period, 33 weeks; Translations: [33 weeks gestation of ] 06-21-2024 Episodic Residual codes; unclassified (2 sources) Gestation period, 29 weeks; Translations: [29 weeks gestation of ] 05-24-2024 Episodic Residual codes; unclassified (2 sources) Gestation [...] Other Problems Problem Classification Problem Date Documented Date Episodic/Chronic Abdominal pain (1 source) Epigastric pain Onset: 12-10-2021 Resolved: 12-10-2021 Episodic Nausea and vomiting (1 source) Nausea Onset: 12-10-2021 Resolved: 12-10-2021 Episodic Nonspecific chest pain (1 source) Other chest pain; Translations: [Other chest pain] Onset: 02-19-2017 Episodic Other non-traumatic joint disorders (4 sources) Pain in left knee; Translations: [PAIN IN LEFT KNEE] Onset: 04-24-2022 Episodic Other and delivery including normal (20 sources) Second trimester ; Translations: [Encounter for supervision of normal , unspecified, second trimester] Onset: 07-04-2024 Resolved: 08-03-2024 04-11-2024 Episodic Residual codes; unclassified (1 source) Family history of other specified conditions Onset: 12-10-2021 Resolved: 12-10-2021 Episodic Residual codes; unclassified (1 source) Insomnia, unspecified; Translations: [INSOMNIA UNSPECIFIED] Onset: 04-27-2022 Episodic Residual codes; unclassified (1 source) Carrier of cystic fibrosis gene mutation Onset: 12-31-2016 02-23-2023 Episodic Residual codes; unclassified (1 source) History of pre-eclampsia Onset: 08-31-2019 02-23-2023 Episodic Residual codes; unclassified (20 sources) Gestation period, 26 weeks; Translations: [26 weeks gestation of ] Onset: 05-09-2024 Resolved: 08-03-2024 05-09-2024 Episodic Residual codes; unclassified (20 sources) H/O: miscarriage; Translations: [Personal history of other complications of , childbirth and the puerperium] Onset: 05-09-2024 05-09-2024 Episodic Residual codes; unclassified (20 sources) Gestation period, 34 weeks; Translations: [34 weeks gestation of ] Onset: 07-04-2024 Resolved: 08-03-2024 07-04-2024 Episodic Unclassified (1 source) CONTACT W/AND (SUSP) EXPOS COVID-19; Translations: [CONTACT W/AND (SUSP) EXPOS COVID-19] Onset: 08-14-2022 Unclassified (1 source) LOW BACK PAIN, UNSPECIFIED; Translations: [LOW BACK PAIN, UNSPECIFIED] Onset: 05-22-2022 Results Test Name Value Interpretation Reference Range Facility [facility] UA (CLEAN/CATCH) SLACKMAN/LOWELL RO IF IND.on 08-05-2024 BILIRUBIN URINE Negative NEGATIVE [facility] BLOOD URINE MODERATE Abnormal NEGATIVE [facility] Clarity (U) CLEAR CLEAR [facility] Color (U) LT. YELLOW YELLOW [facility] GLUCOSE URINE UA Negative NEGATIVE mg/dL [facility] Interpretation and review of laboratory results Abnormal [facility] Ketones Ql (U) Negative NEGATIVE mg/dL [facility] Leukocyte esterase Test strip Ql (U) TRACE Abnormal NEGATIVE [facility] NITRITE URINE Negative NEGATIVE [facility] pH (U) 7.0 [pH] 5.0 - 9.0 [facility] PROTEIN URINE Negative NEG/TRACE mg/dL [facility] SPECIFIC GRAVITY URINE 1.015 1.005 - 1.025 [facility] URINE MICROSCOPIC INDICATED YES [facility] UROBILINOGEN URINE 0.2 EU/dL 0.2 - 1.0 EU/dL [facility] ALL CBC WITH AUTO DIFFon BASOPHILS ABSOLUTE AUTO 0.1 [facility] Basophils/100 WBC (Bld) 0.4 % 0.2 - 2.0 % [facility] Eosinophils/100 WBC (Bld) 1.2 % 0.9 - 7.0 % [facility] Erythrocyte distribution width (RBC) [Ratio] 15 % 11.0 - 15.0 % [facility] Hematocrit (Bld) [Volume fraction] 30.1 % Low 36.0 - 48.0 % [facility] Hemoglobin (Bld) [Mass/Vol] 9.5 g/dL Low 12.0 - 16.0 g/dL [facility] IMMATURE GRANULOCYTES ABS AUTO 0.22 High [facility] Immature granulocytes/100 WBC (Bld) 1.2 % High 0.0 - 0.5 % [facility] Interpretation and review of laboratory results Abnormal [facility] LYMPHOCYTES ABSOLUTE AUTO 2.2 [facility] Lymphocytes/100 WBC (Bld) 12.3 % Low 20.5 - 60.0 % [facility] MCH (RBC) [Entitic mass] 25.1 pg Low 26.7 - 34.0 pg [facility] MCHC (RBC) [Mass/Vol] 31.6 g/dL 29.9 - 35.2 g/dL [facility] MCV (RBC) [Entitic vol] 79.4 fL Low 81.0 - 99.0 fL [facility] MONOCYTES ABSOLUTE AUTO 1.2 High [facility] Monocytes/100 WBC (Bld) 6.5 % 1.7 - 12.0 % [facility] NEUTROPHILS ABSOLUTE AUTO 14.2 High [facility] Neutrophils/100 WBC (Bld) 78.4 % High 43.0 - 75.0 % [facility] Platelet mean volume (Bld) [Entitic vol] 10 fL 9.5 - 13.5 fL [facility] EO # 0.2 [facility] TB PLT [address] [facility] RBC 3.79 Low [facility] TB WBC 18.1 High [facility] WITH [facility]ATE[facility] NO DI FFERENTIALon 08-03-2024 Erythrocyte distribution width (RBC) [Ratio] 14.9 % 11.0 - 15.0 % [facility] Hematocrit (Bld) [Volume fraction] 33.8 % Low 36.0 - 48.0 % [facility] Hemoglobin (Bld) [Mass/Vol] 11 g/dL Low 12.0 - 16.0 g/dL [facility] Interpretation and review of laboratory results Abnormal [facility] MCH (RBC) [Entitic mass] 25.6 pg Low 26.7 - 34.0 pg [facility] MCHC (RBC) [Mass/Vol] 32.5 g/dL 29.9 - 35.2 g/dL [facility] MCV (RBC) [Entitic vol] 78.8 fL Low 81.0 - 99.0 fL [facility] Platelet mean volume (Bld) [Entitic vol] 10.6 fL 9.5 - 13.5 fL [facility] TBH PLT [address] [facility] RBC 4.29 [facility] WBC 17.9 High [facility] Urinalysis macro (dipstick) panel (U)on 08-01-2024 Bilirubin, UA Negative Negative - 4(70) +++ mg/dL [facility] Blood, UA Negative Negative - 50 Angel Luis/mcL [facility] Clarity, UA Clear [facility] Color, UA Yellow [facility] Glucose, UA Negative Negative - 1999(110) ++++ mg/dL [facility] Interpretation and review of laboratory results Abnormal [facility] Ketones, UA Negative Negative - 160(16) ++++ mg/dL [facility] Leukocytes, UA Negative Negative - 500+++ Drew/mcL [facility] Nitrite, UA Negative Negative - Positive [facility] pH, UA 6 5 - 9 [facility] Protein, UA Trace Negative - 2000(20) ++++ mg/dL [facility] Spec Grav, UA 1.03 1 - 1.03 [facility] Urobilinogen, UA 0.2 0.2 - 12 mg/dL [facility] ALL MISCELLANEOUS TESTon MISCELLANEOUS TEST COMMENT . [facility] Comment on above: Test Ordered: [id number] Strep Gp B Culture+Rflx Strep Gp B Culture+Rflx Negative CB Reference Range: Negative Centers for Disease Control and Prevention (CDC) and [place] [employer] (ACOG) guidelines [...] resistance to clindamycin is noted. Performed at: [facility] [address] [id number] Manager Specialty: Agustín Hernandez PhD, Phone: [phone] GROUP B STREP [id number] Group B Streptococcus Colonization Detection Culture With Re [facility] Urinalysis macro (dipstick) panel (U)on 07-18-2024 Bilirubin, UA Negative Negative - 4(70) +++ mg/dL [facility] Blood, UA Negative Negative - 50 Angel Luis/mcL [facility] Clarity, UA Clear [facility] Color, UA Miryam [facility] Glucose, UA Negative Negative - 2000(110) ++++ mg/dL [facility] Interpretation and review of laboratory results Abnormal [facility] Ketones, UA Positive Negative - 160(16) ++++ mg/dL [facility] Comment on above: 15 Leukocytes, UA Negative Negative - 500+++ Drew/mcL [facility] Nitrite, UA Negative Negative - Positive [facility] pH, UA 7 5 - 9 [facility] Protein, UA Positive Negative - 2000(20) ++++ mg/dL [facility] Comment on above: 30 Spec Grav, UA 1.025 1 - 1.03 [facility] Urobilinogen, UA 0.2 0.2 - 12 mg/dL [facility] ALL CBC WITH AUTO DIFFon BASOPHILS ABSOLUTE AUTO 0.1 [facility] Basophils/100 WBC (Bld) 0.5 % 0.2 - 2.0 % [facility] Eosinophils/100 WBC (Bld) 1.2 % 0.9 - 7.0 % [facility] Erythrocyte distribution width (RBC) [Ratio] 13.3 % 11.0 - 15.0 % [facility] Hematocrit (Bld) [Volume fraction] 34.6 % Low 36.0 - 48.0 % [facility] Hemoglobin (Bld) [Mass/Vol] 11.1 g/dL Low 12.0 - 16.0 g/dL [facility] IMMATURE GRANULOCYTES ABS AUTO 0.22 High [facility] Immature granulocytes/100 WBC (Bld) 1.3 % High 0.0 - 0.5 % [facility] Interpretation and review of laboratory results Abnormal [facility] LYMPHOCYTES ABSOLUTE AUTO 3 [facility] Lymphocytes/100 WBC (Bld) 18.2 % Low 20.5 - 60.0 % [facility] MCH (RBC) [Entitic mass] 26.1 pg Low 26.7 - 34.0 pg [facility] MCHC (RBC) [Mass/Vol] 32.1 g/dL 29.9 - 35.2 g/dL [facility] MCV (RBC) [Entitic vol] 81.4 fL 81.0 - 99.0 fL [facility] MONOCYTES ABSOLUTE AUTO 1.3 High [facility] Monocytes/100 WBC (Bld) 7.7 % 1.7 - 12.0 % [facility] NEUTROPHILS ABSOLUTE AUTO 11.6 High [facility] Neutrophils/100 WBC (Bld) 71.1 % 43.0 - 75.0 % [facility] Platelet mean volume (Bld) [Entitic vol] 9.7 fL 9.5 - 13.5 fL [facility] EO # 0.2 [facility] PLT 349 [facility] RBC 4.25 [facility] WBC 16.3 High [facility] Urinalysis macro (dipstick) panel (U)on 07-04-2024 Bilirubin, UA Negative Negative - 4(70) +++ mg/dL [facility] Blood, UA Negative Negative - 50 Angel Luis/mcL [facility] Clarity, UA Cloudy [facility] Color, UA Yellow [facility] Glucose, UA Negative Negative - 1999(110) ++++ mg/dL [facility] Interpretation and review of laboratory results Abnormal [facility] Ketones, UA Positive Negative - 160(16) ++++ mg/dL [facility] Comment on above: 40mg/dL Leukocytes, UA Few Negative - 500+++ Drew/mcL [facility] Comment on above: small Nitrite, UA Negative Negative - Positive [facility] pH, UA 7 5 - 9 [facility] Protein, UA Few Negative - 1999(20) ++++ mg/dL [facility] Comment on above: 30mg/dL Spec Grav, UA 1.025 1 - 1.03 [facility] Urobilinogen, UA 0.2 0.2 - 12 mg/dL [facility] Urinalysis macro (dipstick) panel (U)on 06-21-2024 Bilirubin, UA Negative Negative - 4(70) +++ mg/dL [facility] Blood, UA Negative Negative - 50 Angel Luis/mcL [facility] Clarity, UA Clear [facility] Color, UA Yellow [facility] Glucose, UA Negative Negative - 1999(110) ++++ mg/dL [facility] Interpretation and review of laboratory results Abnormal [facility] Ketones, UA Negative Negative - 160(16) ++++ mg/dL [facility] Leukocytes, UA Negative Negative - 500+++ Drew/mcL [facility] Nitrite, UA Negative Negative - Positive [facility] pH, UA 7 5 - 9 [facility] Protein, UA Positive Negative - 1999(20) ++++ mg/dL [facility] Comment on above: 30 Spec Grav, UA 1.02 1 - 1.03 [facility] Urobilinogen, UA 0.2 0.2 - 12 mg/dL [facility] Urinalysis macro (dipstick) panel (U)on 06-07-2024 Bilirubin, UA Negative Negative - 4(70) +++ mg/dL [facility] Blood, UA Negative Negative - 50 Angel Luis/mcL [facility] Clarity, UA Clear [facility] Color, UA Yellow [facility] Glucose, UA Negative Negative - 1999(110) ++++ mg/dL [facility] Interpretation and review of laboratory results Normal [facility] Ketones, UA Negative Negative - 160(16) ++++ mg/dL [facility] Leukocytes, UA Negative Negative - 500+++ Drew/mcL [facility] Nitrite, UA Negative Negative - Positive [facility] pH, UA 7 5 - 9 [facility] Protein, UA Negative Negative - 1999(20) ++++ mg/dL [facility] Spec Grav, UA 1.02 1 - 1.03 [facility] Urobilinogen, UA 0.2 0.2 - 12 mg/dL [facility] Urinalysis macro (dipstick) panel (U)on 05-09-2024 Bilirubin, UA Positive Negative - 4(70) +++ mg/dL [facility] Comment on above: small Blood, UA Negative Negative - 50 Angel Luis/mcL [facility] Clarity, UA Clear [facility] Color, UA Miryam [facility] Glucose, UA Negative Negative - 1999(110) ++++ mg/dL [facility] Interpretation and review of laboratory results Abnormal [facility] Ketones, UA Positive Negative - 160(16) ++++ mg/dL [facility] Comment on above: trace Leukocytes, UA Negative Negative - 500+++ Drew/mcL [facility] Nitrite, UA Negative Negative - Positive [facility] pH, UA 6 5 - 9 [facility] Protein, UA Positive Negative - 1999(20) ++++ mg/dL [facility] Comment on above: 30 mg Spec Grav, UA 1.03 1 - 1.03 [facility] Urobilinogen, UA 0.2 0.2 - 12 mg/dL [facility] Urinalysis macro (dipstick) panel (U)on 04-11-2024 Bilirubin, UA Negative Negative - 4(70) +++ mg/dL [facility] Blood, UA Negative Negative - 50 Angel Luis/mcL [facility] Clarity, UA Clear [facility] Color, UA Yellow [facility] Glucose, UA Negative Negative - 1999(110) ++++ mg/dL [facility] Interpretation and review of laboratory results Normal [facility] Ketones, UA Negative Negative - 160(16) ++++ mg/dL [facility] Leukocytes, UA Negative Negative - 500+++ Drew/mcL [facility] Nitrite, UA Negative Negative - Positive [facility] pH, UA 6.5 5 - 9 [facility] Protein, UA Negative Negative - 1999(20) ++++ mg/dL [facility] Spec Grav, UA 1.020 1 - 1.03 [facility] Urobilinogen, UA 0.2 0.2 - 12 mg/dL [facility] Urinalysis macro (dipstick) panel (U)on 03-14-2024 Bilirubin, UA Negative Negative - 4(70) +++ mg/dL [facility] Blood, UA Negative Negative - 50 Angel Luis/mcL [facility] Clarity, UA Clear [facility] Color, UA Yellow [facility] Glucose, UA Negative Negative - 1999(110) ++++ mg/dL [facility] Interpretation and review of laboratory results Normal [facility] Ketones, UA Negative Negative - 160(16) ++++ mg/dL [facility] Leukocytes, UA Negative Negative - 500+++ Drew/mcL [facility] Nitrite, UA Negative Negative - Positive [facility] pH, UA 7.0 5 - 9 [facility] Protein, UA Negative Negative - 2000(20) ++++ mg/dL [facility] Spec Grav, UA 1.020 1 - 1.03 [facility] Urobilinogen, UA 0.2 0.2 - 12 mg/dL [facility] Facesheeton 03-02-2023 Facesheet [id number] CD:127 Normal [facility] Ambulatory Visit Summaryon 0 02-27-2023 Ambulatory [...] pain History of pre-eclampsia Insomnia Migraines Overweight [facility] RAD - Ultrasound Reporton RAD - Ultrasound Report [id number] D:127 Normal [facility] Physician Referralon 023 Physician Referral [id number] D:127 Normal [facility] INSULINon 11-08-2022 Insulin 7.7 uIU/mL Normal 2.6-24.9 [facility] Comment on above: Performed By: #### V ITAD, IRON #### [facility] [address] [place] [address] Dr. Chucho Jesus CBC AUTO DIFFon 11-07-2022 BASO # 0.0 103/ul Normal 0.0-0.1 [facility] Comment on above: Performed By: #### V ITAD, IRON #### [facility] [address] [place] [address] Dr. Chucho Jesus Basophils/100 WBC (Bld) 0.6 % Normal 0.2-2.0 [facility] Comment on above: Performed By: #### V ITAD, IRON #### [facility] [address] [place] [address] Dr. Chucho Jesus EO # 0.1 103/ul Normal 0.0-0.7 [facility] Comment on above: Performed By: #### V ITAD, IRON #### [facility] [address] [place] [address] Dr. Chucho Jesus Eosinophils/100 WBC (Bld) 1.4 % Normal 0.9-7.0 [facility] Comment on above: Performed By: #### V ITAD, IRON #### [facility] [address] [place] [address] Dr. Chucho Jesus Erythrocyte distribution width (RBC) [Ratio] 13.9 % Normal 11.0-15.0 [facility] Comment on above: Performed By: #### V ITAD, IRON #### [facility] [address] [place] [address] Dr. Chucho Jesus Hematocrit (Bld) [Volume fraction] 45.6 % Normal 36.0-48.0 [facility] Comment on above: Performed By: #### V ITAD, IRON #### [facility] [address] [place] [address] Dr. Chucho Jesus Hemoglobin (Bld) [Mass/Vol] 15.1 g/dL Normal 12.0-16.0 [facility] Comment on above: Performed By: #### V ITAD, IRON #### [facility] [address] [address] [address] Chucho Jesus IG # 0.01 10e3/ul Normal 0.00-0.03 [facility] Comment on above: Performed By: #### V ITAD, IRON #### [facility] [address] [address] [address] Chucho Jesus IG % 0.1 % Normal 0.0-0.5 [facility] Comment on above: Performed By: #### V ITAD, IRON #### [facility] [address] [place] [address] Dr. Chucho Jesus LYMPH # 1.9 103/ul Normal 1.2-3.8 [facility] Comment on above: Performed By: #### V ITAD, IRON #### [facility] [address] [place] [address] Dr. Chucho Jesus Lymphocytes/100 WBC (Bld) 26.3 % Normal 20.5-60.0 [facility] Comment on above: Performed By: #### V ITAD, IRON #### [facility] [address] [place] [address] Dr. Chucho Jesus MANUAL DIFF REQ NO Normal [facility] Comment on above: Performed By: #### V ITAD, IRON #### [facility] [address] [address] [address] Chucho Jesus MCH (RBC) [Entitic mass] 27.9 pg Normal 26.7-34.0 [facility] Comment on above: Performed By: #### V ITAD, IRON #### [facility] [address] [address] [address] Chucho Jesus MCHC (RBC) [Mass/Vol] 33.1 g/dL Normal 29.9-35.2 [facility] Comment on above: Performed By: #### V ITAD, IRON #### [facility] [address] [place] [address] Dr. Chucho Jesus MCV (RBC) [Entitic vol] 84.1 fL Normal 81.0-99.0 [facility] Comment on above: Performed By: #### V ITAD, IRON #### [facility] [address] [place] [address] Dr. Chucho Jesus MONO # 0.5 103/ul Normal 0.3-0.8 [facility] Comment on above: Performed By: #### V ITAD, IRON #### [facility] [address] [place] [address] Dr. Chucho Jeuss Monocytes/100 WBC (Bld) 7.3 % Normal 1.7-12.0 [facility] Comment on above: Performed By: #### V ITAD, IRON #### [facility] [address] [place] [address] Dr. Chucho Jesus NEUT # 4.6 103/ul Normal 1.4-6.5 [facility] Comment on above: Performed By: #### V ITAD, IRON #### [facility] [address] [place] [address] Dr. Chucho Jesus Neutrophils/100 WBC (Bld) 64.3 % Normal 43.0-75.0 [facility] Comment on above: Performed By: #### V ITAD, IRON #### [facility] [address] [place] [address] Dr. Chucho Jesus Platelet mean volume (Bld) [Entitic vol] 10.9 fL Normal 9.5-13.5 [facility] Comment on above: Performed By: #### V ITAD, IRON #### [facility] [address] [place] [address] Dr. Chucho Jesus PLT 226 103/ul Normal 150-450 [facility] Comment on above: Performed By: #### V ITAD, IRON #### [facility] [address] [place] [address] Dr. Chucho Jesus RBC 5.42 106/ul Critically high 4.20-5.40 [facility] Comment on above: Performed By: #### V ITAD, IRON #### [facility] [address] [address] [address] Chucho Jesus WBC 7.2 103/ul Normal 4.0-11.0 [facility] Comment on above: Performed By: #### V ITAD, IRON #### [facility] [address] [address] [address] Chucho Jesus FREE THYROXINE INDEX T7on FTI 3.29 Normal 1.30-4.50 [facility] Comment on above: Performed By: #### V ITAD, IRON #### [facility] [address] [place] [address] Dr. Chucho Jesus T3U 35.0 % Normal 30.0-39.0 [facility] Comment on above: Performed By: #### V ITAD, IRON #### [facility] [address] [place] [address] Dr. Chucho Jesus T4 [Mass/Vol] 9.40 ug/dL Normal 4.80-13.90 [facility] Comment on above: Performed By: #### V ITAD, IRON #### [facility] [address] [place] [address] Dr. Chucho Jesus GLYCOHEMOGLOBIN A1Con 2022 ADA RECOMMENDATION SEE BELOW Normal [facility] Comment on above: Result Comment: ADA RECOMMENDED LIMIT 4.0 - 6.0 ADA THERAPEUTIC TARGET < 7.0 ACTION SUGGESTED > 7.0 Performed By: #### A 1C #### [facility] [address] [place] [address] Dr. Chucho Jesus Glucose [Mass/Vol] 94 mg/dL Normal [facility] Comment on above: Performed By: #### A 1C #### [facility] [address] [place] [address] Dr. Chucho Jesus HbA1c (Bld) [Mass fraction] 4.9 % Normal 4.5-6.2 [facility] Comment on above: Performed By: #### A 1C #### [facility] [address] [place] [address] Dr. Chucho Jesus IRONon 11-07-2022 Iron [Mass/Vol] 81.0 ug/dL Normal 50.0-170.0 [facility] Comment on above: Performed By: #### V ITAD, IRON #### [facility] [address] [address] [address] Chucho Jesus LIPID PROFILEon 11-07-2022 CHOL-HDL RATIO NORM SEE BELOW Normal [facility] Comment on above: Result Comment: 3.3 - 4.4 LOW RISK 4.4 - 7.1 AVERAGE RISK 7.1 - 11.0 MODERATE RISK >11.0 HIGH RISK Performed By: #### V ITAD, IRON #### [facility] [address] [address] [address] Chucho Jesus Cholesterol [Mass/Vol] 126 mg/dL Normal <=200 [facility] Comment on above: Performed By: #### V ITAD, IRON #### [facility] [address] [address] [address] Chucho Jesus Cholesterol in HDL [Mass/Vol] 38 mg/dL Critically low 40-60 [facility] Comment on above: Performed By: #### V ITAD, IRON #### [facility] [address] [address] [address] Chucho Jesus Cholesterol in LDL [Mass/Vol] 79.4 mg/dL Normal [facility] Comment on above: Performed By: #### V ITAD, IRON #### [facility] [address] [address] [address] Chucho Jesus Cholesterol.total/C holesterol in HDL [Mass ratio] 3.3 {ratio} Normal [facility] Comment on above: Performed By: #### V ITAD, IRON #### [facility] [address] [address] [address] Chucho Jesus HDL NORMAL > or = 60 mg/dl - LO W CARDIOVASCULAR RISK <40 mg/dl - HIGH CARDIOVASCULAR RISK Normal [facility] Comment on above: Performed By: #### V ITAD, IRON #### [facility] [address] [address] [address] Chucho Jesus LDL CALC NORMAL SEE BELOW Normal [facility] Comment on above: Result Comment: <100 mg/dl OPTIMAL 100 - 129 mg/dl NEAR OR ABOVE OPTIMAL 130 - 159 mg/dl BORDERLINE HIGH 160 - 189 mg/dl HIGH >190 mg/dl VERY HIGH Performed By: #### V ITAD, IRON #### [facility] [address] [place] [address] Dr. Chucho Jesus Triglyceride [Mass/Vol] 43 mg/dL Normal <=150 [facility] Comment on above: Performed By: #### V ITAD, IRON #### [facility] [address] [place] [address] Dr. Chucho Jesus VLDL CALC 8.6 mg/dL Normal [facility] Comment on above: Performed By: #### V ITAD, IRON #### [facility] [address] [place] [address] Dr. Chucho Jesus PROF 14(COMP METB)on 023 Albumin [Mass/Vol] 4.2 g/dL Normal 3.4-5.0 [facility] Comment on above: Performed By: #### V ITAD, IRON #### [facility] [address] [place] [address] Dr. Chucho Jesus Albumin/Globulin [Mass ratio] 1.1 {ratio} Normal [facility] Comment on above: Performed By: #### V ITAD, IRON #### [facility] [address] [place] [address] Dr. Chucho Jesus ALP [Catalytic activity/Vol] 93 U/L Normal 46-116 [facility] Comment on above: Performed By: #### V ITAD, IRON #### [facility] [address] [place] [address] Dr. Chucho Jesus ALT [Catalytic activity/Vol] 16 U/L Normal 14-59 [facility] Comment on above: Performed By: #### V ITAD, IRON #### [facility] [address] [place] [address] Dr. Chucho Jesus Anion gap [Moles/Vol] 14.3 mmol/L Normal [facility] Comment on above: Performed By: #### V ITAD, IRON #### [facility] [address] [address] [address] Chucho Jesus AST [Catalytic activity/Vol] 16 U/L Normal 15-37 [facility] Comment on above: Performed By: #### V ITAD, IRON #### [facility] [address] [address] [address] Chucho Jesus Bilirubin [Mass/Vol] 1.0 mg/dL Normal 0.2-1.0 [facility] Comment on above: Performed By: #### V ITAD, IRON #### [facility] [address] [address] [address] Chucho Jesus Calcium [Mass/Vol] 9.4 mg/dL Normal 8.5-10.1 [facility] Comment on above: Performed By: #### V ITAD, IRON #### [facility] [address] [place] [address] Dr. Chucho Jesus Chloride [Moles/Vol] 103 mmol/L Normal 98-107 [facility] Comment on above: Performed By: #### V ITAD, IRON #### [facility] [address] [place] [address] Dr. Chucho Jesus CO2 [Moles/Vol] 24.9 mmol/L Normal 21.0-32.0 [facility] Comment on above: Performed By: #### V ITAD, IRON #### [facility] [address] [place] [address] Dr. Chucho Jesus Creatinine [Mass/Vol] 0.68 mg/dL Normal 0.55-1.02 [facility] Comment on above: Performed By: #### V ITAD, IRON #### [facility] [address] [place] [address] Dr. Chucho Jesus EGFR-AF TURKS AND CAICOS ISLANDER >60 Normal >=60 [facility] Comment on above: Performed By: #### V ITAD, IRON #### [facility] [address] [place] [address] Dr. Chucho Jesus EGFR-NON AF TURKS AND CAICOS ISLANDER >60 Normal >=60 [facility] Comment on above: Performed By: #### V ITAD, IRON #### [facility] [address] [address] [address] Chucho Jesus Globulin (S) [Mass/Vol] 3.9 g/dL Normal [facility] Comment on above: Performed By: #### V ITAD, IRON #### [facility] [address] [address] [address] Chucho Jesus Glucose [Mass/Vol] 89 mg/dL Normal 74-106 [facility] Comment on above: Performed By: #### V ITAD, IRON #### [facility] [address] [address] [address] Chucho Jesus Potassium [Moles/Vol] 4.2 mmol/L Normal 3.5-5.1 [facility] Comment on above: Performed By: #### V ITAD, IRON #### [facility] [address] [place] [address] Dr. Chucho Jesus Protein [Mass/Vol] 8.1 g/dL Normal 6.4-8.2 [facility] Comment on above: Performed By: #### V ITAD, IRON #### [facility] [address] [place] [address] Dr. Chucho Jesus Sodium [Moles/Vol] 138 mmol/L Normal 136-145 [facility] Comment on above: Performed By: #### V ITAD, IRON #### [facility] [address] [place] [address] Dr. Chucho Jesus Urea nitrogen [Mass/Vol] 9.0 mg/dL Normal 7.0-18.0 [facility] Comment on above: Performed By: #### V ITAD, IRON #### [facility] [address] [place] [address] Dr. Chucho Jesus Urea nitrogen/Creatinine [Mass ratio] 13.2 mg/mg Normal [facility] Comment on above: Performed By: #### V ITAD, IRON #### [facility] [address] [place] [address] Dr. Chucho Jesus TSHon 11-07-2022 TSH 1.668 uIU/mL Normal 0.358-3.740 [facility] Comment on above: Performed By: #### V AMAURY, IVELISSE #### [facility] [address] [place], [place] [address] Dr. Chucho Jesus Covid-19 PCR (CVDTB)on SARS-CoV-2 (COVID-19) RNA DMITRY+probe Ql (Unsp spec) Not detected Normal NOT DETECTED [facility] Comment on above: Result Comment: When [...] for this test is supported by the Tax Evaluator of Health and Human Service's declaration that [...] Performed By: #### V AMAURY, IVELISSE #### [facility] [address] [place], [place] [address] Dr. Chucho Jesus Covid-19 PCR (CVDTB)on SARS-CoV-2 (COVID-19) RNA DMITRY+probe Ql (Unsp spec) Not detected Normal NOT DETECTED [facility] Comment on above: Result Comment: When [...] for this test is supported by the Tax Evaluator of Health and Human Service's declaration that [...] used). Performed By: #### C VDTB #### [facility] [address] [place] [address] Dr. Chucho Jesus INFLUENZA A AND B AGon 08-11 [facility] SEE BELOW Normal [facility] Comment on above: Result Comment: Nega tive for Flu A protein angiten. Infection due to Flu A cannot be ruled out. Flu A angiten in the sample may be below the detection limit of the test. Performed By: #### I NFLUAB #### [facility] [address] [place] [address] Dr. Chucho [facility] SEE BEL[facility] Normal [facility] Comment on above: Result Comment: Nega tive for Flu B protein antigen. Infection due to Flu B cannot be ruled out. Flu B antigen in the sample may be below the detection limit of the test. Performed By: #### I NFLUAB #### [facility] [address] [place] [address] Dr. Chucho Jesus INFLUENZA A AG Negative Normal NEGATIVE SEE COMMENT [facility] Comment on above: Performed By: #### I NFLUAB #### [facility] [address] [place] [address] Dr. Chucho Jesus INFLUENZA B AG Negative Normal NEGATIVE SEE COMMENT [facility] Comment on above: Performed By: #### I NFLUAB #### [facility] [address] [place] [address] Dr. Chucho Jesus Covid-19 PCR ([facility])on 05-07 SARS-CoV-2 (COVID-19) RNA DMITRY+probe Ql (Unsp spec) Not detected Normal NOT DETECTED [facility] Comment on above: Result Comment: When [...] for this test is supported by the Tax Evaluator of Health and Human Service's declaration that [...] By: #### V ITAD, IRON #### [facility] [address] [place] [address] Dr. Chucho Jesus INFLUENZA A AND B [facility] 05-26 [facility] SEE BELOW Normal [facility] Comment on above: Result Comment: Nega tive for Flu A protein angiten. Infection due to Flu A cannot be ruled out. Flu A angiten in the sample may be below the detection limit of the test. Performed By: #### V ITAD, IRON #### [facility] [address] [place] [address] Dr. Chucho [facility] Normal [facility] Comment on above: Result Comment: Nega tive for Flu B protein antigen. Infection due to Flu B cannot be ruled out. Flu B antigen in the sample may be below the detection limit of the test. Performed By: #### V ITAD, IRON #### [facility] [address] [place] [address] Dr. Chucho Jesus INFLUENZA A AG Negative Normal NEGATIVE SEE COMMENT [facility] Comment on above: Performed By: #### V ITAD, IRON #### [facility] [address] [place] [address] Dr. Chucho Jesus INFLUENZA B AG Negative Normal NEGATIVE SEE COMMENT [facility] Comment on above: Performed By: #### V ITAD, IRON #### [facility] [address] [place] [address] Dr. Chucho Jesus INTERNAL CONTROLS Within Normal Limits Normal Wi thin Normal Limits [facility] Comment on above: Performed By: #### V ITAD, IRON #### [facility] [address] [address] [address] Chucho CARMEN URINE PROFILEon 2 Bilirubin Ql (U) Negative Normal NEGATIVE [facility] Comment on above: Performed By: #### V ITAD, IRON #### [facility] [address] [address] [address] Chucho Jesus Clarity (U) CLEAR Normal CLEAR [facility] Comment on above: Performed By: #### V ITAD, IRON #### [facility] [address] [place] [address] Dr. Chucho Jesus Color (U) YELLOW Normal YELLOW [facility] Comment on above: Performed By: #### V ITAD, IRON #### [facility] [address] [place] [address] Dr. Chucho BAHENA A micrscopic examination will be performed if indicated. Normal [facility] Comment on above: Performed By: #### V ITAD, IRON #### [facility] [address] [place] [address] Dr. Chucho Jesus Glucose Ql (U) Negative Normal NEGATIVE [facility] Comment on above: Performed By: #### V ITAD, IRON #### [facility] [address] [place] [address] Dr. Chucho Jesus Hemoglobin Ql (U) Negative Normal NEGATIVE [facility] Comment on above: Performed By: #### V ITAD, IRON #### [facility] [address] [place] [address] Dr. Chucho Jesus Ketones Ql (U) >=80 Abnormal NEGATIVE [facility] Comment on above: Performed By: #### V ITAD, IRON #### [facility] [address] [place] [address] Dr. Chucho Jesus LEUKOCYTES Negative Normal NEGATIVE [facility] Comment on above: Performed By: #### V ITAD, IRON #### [facility] [address] [place] [address] Dr. Chucho Jesus Nitrite Ql (U) Negative Normal NEGATIVE [facility] Comment on above: Performed By: #### V ITAD, IRON #### [facility] [address] [place] [address] Dr. Chucho Jesus pH (U) 6.0 [pH] Normal 5-9 [facility] Comment on above: Performed By: #### V ITAD, IRON #### [facility] [address] [address] [address] Chucho Jesus Protein (U) [Mass/Vol] 100 mg/dL Abnormal NEGATIVE/ TRACE [facility] Comment on above: Performed By: #### V ITAD, IRON #### [facility] [address] [place] [address] Dr. Chucho Jesus SPEC GRAVITY >=1.030 Abnormal 1.005-<=1.025 [facility] Comment on above: Performed By: #### V ITAD, IRON #### [facility] [address] [place] [address] Dr. Chucho Jesus UR MICRO IND INDICATED Normal [facility] Comment on above: Performed By: #### V ITAD, IRON #### [facility] [address] [place] [address] Dr. Chucho Jesus Urobilinogen Qn (U) 0.2 {Chelsea'U}/dL Normal 0.2 - 1. 0 [facility] Comment on above: Performed By: #### V ITAD, IRON #### [facility] [address] [place] [address] Dr. Chucho Jesus URon 05-22-2022 , QUAL Negative Normal NEGATIVE [facility] Comment on above: Performed By: #### V ITAD, IRON #### [facility] [address] [place] [address] Dr. Chucho Jesus URINE MICROSCOPIC ONLYon BACTERIA NONE SEEN Normal NONE SEEN [facility] Comment on above: Performed By: #### V ITAD, IRON #### [facility] [address] [place] [address] Dr. Chucho Jesus Bacteria identified Cx Nom (U) NOT INDICATED Normal [facility] Comment on above: Performed By: #### V ITAD, IRON #### [facility] [address] [address] [address] Chucho Jesus CAST NONE SEEN Normal NONE SEEN [facility] Comment on above: Performed By: #### V ITAD, IRON #### [facility] [address] [address] [address] Chucho Jesus Crystals LM Nom (Urine sed) NONE SEEN Normal NONE SEEN [facility] Comment on above: Performed By: #### V ITAD, IRON #### [facility] [address] [address] [address] Chucho Jesus Epithelial cells LM Ql (Urine sed) FEW Abnormal NONE SEEN /RARE [facility] Comment on above: Performed By: #### V ITAD, IRON #### [facility] [address] [place] [address] Dr. Chucho Jesus MUCOUS MODERATE Abnormal NONE SEEN [facility] Comment on above: Performed By: #### V ITAD, IRON #### [facility] [address] [place] [address] Dr. Chucho Jesus RBC NONE SEEN Abnormal 0-2 [facility] Comment on above: Performed By: #### V ITAD, IRON #### [facility] [address] [place] [address] Dr. Chucho Jesus WBC NONE SEEN Normal NONE SEEN [facility] Comment on above: Performed By: #### V ITAD, IRON #### [facility] [address] [place] [address] Dr. Chucho Jesus XR LSPINE 2_3 VIEWSon [...] CAMPOS Date: 2022-05-22 12:28 Normal [facility] INSULINon 04-25-2022 Insulin 10.4 uIU/mL Normal 2.6-24.9 [facility] Comment on above: Performed By: #### V ITAD, IRON #### [facility] [address] [place] [address] Dr. Chucho Jesus CBC AUTO DIFFon 04-24-2022 BASO # 0.0 103/ul Normal 0.0-0.1 [facility] Comment on above: Performed By: #### C BC #### [facility] [address] [place] [address] Dr. Chucho Jesus Basophils/100 WBC (Bld) 0.6 % Normal 0.2-2.0 [facility] Comment on above: Performed By: #### C BC #### [facility] [address] [place] [address] Dr. Chucho Jesus EO # 0.1 103/ul Normal 0.0-0.7 [facility] Comment on above: Performed By: #### C BC #### [facility] [address] [place] [address] Dr. Chucho Jesus Eosinophils/100 WBC (Bld) 1.8 % Normal 0.9-7.0 [facility] Comment on above: Performed By: #### C BC #### [facility] [address] [place] [address] Dr. Chucho Jesus Erythrocyte distribution width (RBC) [Ratio] 12.9 % Normal 11.0-15.0 [facility] Comment on above: Performed By: #### C BC #### [facility] [address] [place] [address] Dr. Chucho Jesus Hematocrit (Bld) [Volume fraction] 45.6 % Normal 36.0-48.0 [facility] Comment on above: Performed By: #### C BC #### [facility] [address] [place] [address] Dr. Chucho Jesus Hemoglobin (Bld) [Mass/Vol] 14.7 g/dL Normal 12.0-16.0 [facility] Comment on above: Performed By: #### C BC #### [facility] [address] [place] [address] Dr. Chucho Jesus IG # 0.02 10e3/ul Normal 0.00-0.03 [facility] Comment on above: Performed By: #### C BC #### [facility] [address] [place] [address] Dr. Chucho Jesus IG % 0.3 % Normal 0.0-0.5 [facility] Comment on above: Performed By: #### C BC #### [facility] [address] [place] [address] Dr. Chucho Jesus LYMPH # 1.6 103/ul Normal 1.2-3.8 [facility] Comment on above: Performed By: #### C BC #### [facility] [address] [place] [address] Dr. Chucho Jesus Lymphocytes/100 WBC (Bld) 24.5 % Normal 20.5-60.0 [facility] Comment on above: Performed By: #### C BC #### [facility] [address] [place] [address] Dr. Chucho Jesus MANUAL DIFF REQ NO Normal [facility] Comment on above: Performed By: #### C BC #### [facility] [address] [place] [address] Dr. Chucho Jesus MCH (RBC) [Entitic mass] 28.4 pg Normal 26.7-34.0 [facility] Comment on above: Performed By: #### C BC #### [facility] [address] [place] [address] Dr. Chucho Jesus MCHC (RBC) [Mass/Vol] 32.2 g/dL Normal 29.9-35.2 [facility] Comment on above: Performed By: #### C BC #### [facility] [address] [place] [address] Dr. Chucho Jesus MCV (RBC) [Entitic vol] 88.2 fL Normal 81.0-99.0 [facility] Comment on above: Performed By: #### C BC #### [facility] [address] [address] [address] Chucho Jesus MONO # 0.5 103/ul Normal 0.3-0.8 [facility] Comment on above: Performed By: #### C BC #### [facility] [address] [address] [address] Chucho Jesus Monocytes/100 WBC (Bld) 7.4 % Normal 1.7-12.0 [facility] Comment on above: Performed By: #### C BC #### [facility] [address] [address] [address] Chucho Jesus NEUT # 4.4 103/ul Normal 1.4-6.5 [facility] Comment on above: Performed By: #### C BC #### [facility] [address] [place] [address] Dr. Chucho Jesus Neutrophils/100 WBC (Bld) 65.4 % Normal 43.0-75.0 [facility] Comment on above: Performed By: #### C BC #### [facility] [address] [place] [address] Dr. Chucho Jesus Platelet mean volume (Bld) [Entitic vol] 9.9 fL Normal 9.5-13.5 [facility] Comment on above: Performed By: #### C BC #### [facility] [address] [place] [address] Dr. Chucho Jesus PLT 225 103/ul Normal 150-450 [facility] Comment on above: Performed By: #### C BC #### [facility] [address] [place] [address] Dr. Chucho Jesus RBC 5.17 106/ul Normal 4.20-5.40 [facility] Comment on above: Performed By: #### C BC #### [facility] [address] [place] [address] Dr. Chucho Jesus WBC 6.7 103/ul Normal 4.0-11.0 [facility] Comment on above: Performed By: #### C BC #### [facility] [address] [address] [address] Chucho Jesus FREE THYROXINE INDEX T7on FTI 3.29 Normal 1.30-4.50 [facility] Comment on above: Performed By: #### T 7, TSH, LIPID, CMP #### [facility] [address] [address] [address] Chucho Jesus T3U 27.0 % Critically low 30.0-39.0 [facility] Comment on above: Performed By: #### T 7, TSH, LIPID, CMP #### [facility] [address] [address] [address] Chucho Jesus T4 [Mass/Vol] 12.20 ug/dL Normal 4.80-13.90 [facility] Comment on above: Performed By: #### T 7, TSH, LIPID, CMP #### [facility] [address] [place] [address] Dr. Chucho Jesus GLYCOHEMOGLOBIN A1Con 2021 ADA RECOMMENDATION SEE BELOW Normal [facility] Comment on above: Result Comment: ADA RECOMMENDED LIMIT 4.0 - 6.0 ADA THERAPEUTIC TARGET < 7.0 ACTION SUGGESTED > 7.0 Performed By: #### A 1C #### [facility] [address] [place] [address] Dr. Chucho Jesus Glucose [Mass/Vol] 105 mg/dL Normal [facility] Comment on above: Performed By: #### A 1C #### [facility] [address] [place] [address] Dr. Chucho Jesus HbA1c (Bld) [Mass fraction] 5.3 % Normal 4.5-6.2 [facility] Comment on above: Performed By: #### A 1C #### [facility] [address] [place] [address] Dr. Chucho Jesus IRONon 04-24-2022 Iron [Mass/Vol] 48.0 ug/dL Critically low 50.0-170.0 [facility] Comment on above: Performed By: #### V ITAD, IRON #### [facility] [address] [address] [address] Chucho Jesus LIPID PROFILEon 04-24-2022 CHOL-HDL RATIO NORM SEE BELOW Normal [facility] Comment on above: Result Comment: 3.3 - 4.4 LOW RISK 4.4 - 7.1 AVERAGE RISK 7.1 - 11.0 MODERATE RISK >11.0 HIGH RISK Performed By: #### V ITAD, IRON #### [facility] [address] [address] [address] Chucho Jesus Cholesterol [Mass/Vol] 184 mg/dL Normal <=200 [facility] Comment on above: Performed By: #### V ITAD, IRON #### [facility] [address] [address] [address] Chucho Jesus Cholesterol in HDL [Mass/Vol] 55 mg/dL Normal 40-60 [facility] Comment on above: Performed By: #### V ITAD, IRON #### [facility] [address] [address] [address] Chucho Jesus Cholesterol in LDL [Mass/Vol] 116.6 mg/dL Normal [facility] Comment on above: Performed By: #### V ITAD, IRON #### [facility] [address] [address] [address] Chucho Jesus Cholesterol.total/C holesterol in HDL [Mass ratio] 3.3 {ratio} Normal [facility] Comment on above: Performed By: #### V ITAD, IRON #### [facility] [address] [address] [address] Chucho Jesus HDL NORMAL > or = 60 mg/dl - LO W CARDIOVASCULAR RISK <40 mg/dl - HIGH CARDIOVASCULAR RISK Normal [facility] Comment on above: Performed By: #### V ITAD, IRON #### [facility] [address] [address] [address] Chucho Jesus LDL CALC NORMAL SEE BELOW Normal [facility] Comment on above: Result Comment: <100 mg/dl OPTIMAL 100 - 129 mg/dl NEAR OR ABOVE OPTIMAL 130 - 159 mg/dl BORDERLINE HIGH 160 - 189 mg/dl HIGH >190 mg/dl VERY HIGH Performed By: #### V ITAD, IRON #### [facility] [address] [address] [address] Chucho Jesus Triglyceride [Mass/Vol] 62 mg/dL Normal <=150 [facility] Comment on above: Performed By: #### V ITAD, IRON #### [facility] [address] [address] [address] Chucho Jesus VLDL CALC 12.4 mg/dL Normal [facility] Comment on above: Performed By: #### V ITAD, IRON #### [facility] [address] [address] [address] Chucho Jesus PROF 14(COMP METB)on 022 Albumin [Mass/Vol] 3.7 g/dL Normal 3.4-5.0 [facility] Comment on above: Performed By: #### T 7, TSH, LIPID, CMP #### [facility] [address] [address] [address] Chucho Jesus Albumin/Globulin [Mass ratio] 0.9 {ratio} Normal [facility] Comment on above: Performed By: #### T 7, TSH, LIPID, CMP #### [facility] [address] [address] [address] Chucho Jesus ALP [Catalytic activity/Vol] 74 U/L Normal 46-116 [facility] Comment on above: Performed By: #### T 7, TSH, LIPID, CMP #### [facility] [address] [address] [address] Chucho Jesus ALT [Catalytic activity/Vol] 16 U/L Normal 14-59 [facility] Comment on above: Performed By: #### T 7, TSH, LIPID, CMP #### [facility] [address] [address] [address] Chucho Jesus Anion gap [Moles/Vol] 12.3 mmol/L Normal [facility] Comment on above: Performed By: #### T 7, TSH, LIPID, CMP #### [facility] [address] [address] [address] Chucho Jesus AST [Catalytic activity/Vol] 13 U/L Critically low 15-37 [facility] Comment on above: Performed By: #### T 7, TSH, LIPID, CMP #### [facility] [address] [address] [address] Chucho Jesus Bilirubin [Mass/Vol] 0.4 mg/dL Normal 0.2-1.0 [facility] Comment on above: Performed By: #### T 7, TSH, LIPID, CMP #### [facility] [address] [place] [address] Dr. Chucho Jesus Calcium [Mass/Vol] 8.9 mg/dL Normal 8.5-10.1 [facility] Comment on above: Performed By: #### T 7, TSH, LIPID, CMP #### [facility] [address] [place] [address] Dr. Chucho Jesus Chloride [Moles/Vol] 105 mmol/L Normal 98-107 [facility] Comment on above: Performed By: #### T 7, TSH, LIPID, CMP #### [facility] [address] [place] [address] Dr. Chucho Jesus CO2 [Moles/Vol] 26.6 mmol/L Normal 21.0-32.0 [facility] Comment on above: Performed By: #### T 7, TSH, LIPID, CMP #### [facility] [address] [place] [address] Dr. Chucho Jesus Creatinine [Mass/Vol] 0.68 mg/dL Normal 0.55-1.02 [facility] Comment on above: Performed By: #### T 7, TSH, LIPID, CMP #### [facility] [address] [place] [address] Dr. Chucho Jesus EGFR-AF TURKS AND CAICOS ISLANDER >60 Normal >=60 [facility] Comment on above: Performed By: #### T 7, TSH, LIPID, CMP #### [facility] [address] [place] [address] Dr. Chucho Jesus EGFR-NON AF TURKS AND CAICOS ISLANDER >60 Normal >=60 [facility] Comment on above: Performed By: #### T 7, TSH, LIPID, CMP #### [facility] [address] [place] [address] Dr. Chucho Jesus Globulin (S) [Mass/Vol] 4.3 g/dL Normal [facility] Comment on above: Performed By: #### T 7, TSH, LIPID, CMP #### [facility] [address] [address] [address] Chucho Jesus Glucose [Mass/Vol] 87 mg/dL Normal 74-106 [facility] Comment on above: Performed By: #### T 7, TSH, LIPID, CMP #### [facility] [address] [address] [address] Chucho Jesus Potassium [Moles/Vol] 3.9 mmol/L Normal 3.5-5.1 [facility] Comment on above: Performed By: #### T 7, TSH, LIPID, CMP #### [facility] [address] [place] [address] Dr. Chucho Jesus Protein [Mass/Vol] 8.0 g/dL Normal 6.4-8.2 [facility] Comment on above: Performed By: #### T 7, TSH, LIPID, CMP #### [facility] [address] [address] [address] Chucho Jesus Sodium [Moles/Vol] 140 mmol/L Normal 136-145 [facility] Comment on above: Performed By: #### T 7, TSH, LIPID, CMP #### [facility] [address] [place] [address] Dr. Chucho Jesus Urea nitrogen [Mass/Vol] 9.0 mg/dL Normal 7.0-18.0 [facility] Comment on above: Performed By: #### T 7, TSH, LIPID, CMP #### [facility] [address] [place] [address] Dr. Chucho Jesus Urea nitrogen/Creatinine [Mass ratio] 13.2 mg/mg Normal [facility] Comment on above: Performed By: #### T 7, TSH, LIPID, CMP #### [facility] [address] [place] [address] Dr. Chucho Jesus TSHon 04-24-2022 TSH 1.127 uIU/mL Normal 0.358-3.740 [facility] Comment on above: Performed By: #### T 7, TSH, LIPID, CMP #### [facility] [address] [address] [address] Chucho Jesus VITAMIN D 25 OHon 04-24-2022 VIT D 25-OH 35.2 ng/mL Normal [facility] Comment on above: Performed By: #### V ITAD, IRON #### [facility] [address] [address] [address] Chucho Jesus VIT D RANGES SEE BELOW Normal [facility] Comment on above: Result Comment: <20 ng/mL Vit D deficient 20 - <30 ng/mL Vit D insufficient 30 - 100 ng/mL Vit D sufficient >100 ng/mL Potential Toxicity Performed By: #### V ITAD, IRON #### [facility] [address] [address] [address] Chucho Jesus HCG ( test) Ql (U)O rdered By: James Churchill on 12-05-2020 Internal Control [facility] Interpretation and review of laboratory results Normal [facility] POC , UrineOrdered By: James Churchill on 12-05-2020 HCG ( test) Ql (U) Negative Negative [facility] CTA CHEST WITH CONTRASTon CTA [...] by:Ady Tran MD/Edited Result - FINAL Normal [facility] Basic Metabolic Profon 02-19 (cont.) Normal [facility] Comment on above: Result Comment: Aver age GFR for 20-29 years old: 116 mL/min/1.73sq mChronic Kidney Disease: <60 mL/min/1.73sq mKidney failure: <15 mL/min/1.73sq meGFR calculated using average adult body mass. Additional eGFR calculator available at:http://[email or web address]/multiple_crcl_2012.htm Performed By: #### C DP, BMP, TROPI ####[address] [place] [address] Anion gap 14 mmol/L Normal - [facility] Comment on above: Performed By: #### C DP, BMP, TROPI ####[address] [place] [address] BUN/CRE Ratio 13 Normal 9-20 [facility] Comment on above: Performed By: #### C DP, BMP, TROPI ####[address] [place] [address] Calcium 9.2 mg/dL Normal 8.6-10.4 [facility] Comment on above: Performed By: #### C DP, BMP, TROPI ####[address] [place] [address] Chloride 105 mmol/L Normal 98-107 [facility] Comment on above: Performed By: #### C DP, BMP, TROPI ####[address] [place] [address] CO2 23 mmol/L Normal 20-31 [facility] Comment on above: Performed By: #### C DP, BMP, TROPI ####[address] [place] [address] Creatinine 0.55 mg/dL Normal 0.50-0.90 [facility] Comment on above: Performed By: #### C DP, BMP, TROPI ####[address] [place] [address] eGFR (non-black) mL/min/{1.73_m2} Normal >60 [facility] Comment on above: Performed By: #### C DP, BMP, TROPI ####[address] [place] [address] Glucose mass conc 96 mg/dL Normal 70-99 [facility] Comment on above: Performed By: #### C DP, BMP, TROPI ####[address] [place] [address] Potassium molar conc 3.6 mmol/L Low 3.7-5.3 [facility] Comment on above: Performed By: #### C DP, BMP, TROPI ####[address] [place] [address] Sodium 142 mmol/L Normal 135-144 [facility] Comment on above: Performed By: #### C DP, BMP, TROPI ####[address] [place] [address] Staging: Normal [facility] Comment on above: Result Comment: Stag e 1: Some kidney damage normal GFRStage 2: Mild kidney damage GFR 60-89Stage 3: Moderate kidney damage GFR 30-59Stage 4: Severe kidney damage GFR 15-29Stage 5: Severe kidney damage GFR <15ESRD - chronic treatment by dialysis or transplantPerformed at [address] [place] [address] Performed By: #### C DP, BMP, TROPI ####[address] [place] [address] Urea nitrogen 7 mg/dL Normal 6-20 [facility] Comment on above: Performed By: #### C DP BMP, TROPI ####[address] [place] [address] CBC with Diffon 02-19-2017 Abs. Basophil 0.00 k/uL Normal 0.0-0.2 [facility] Comment on above: Result Comment: Perf ormed at [address] [place] [address] Performed By: #### C DEION BMP, TROPI ####[address] , [facility]83 Abs.Neutrophil (Seg) 7.10 k/uL Normal 1.8-8.0 [facility] Comment on above: Performed By: #### C DP, BMP, TROPI ####[address] [place] [address] Basophils/100 WBC Auto (Bld) 0 % Normal [facility] Comment on above: Performed By: #### C DP, BMP, TROPI ####[address] [place] [address] Eosinophils 0.30 10*3/uL Normal 0.0-0.4 [facility] Comment on above: Performed By: #### C DP, BMP, TROPI ####[address] , [place] [address] Eosinophils/100 leukocytes 3 % Normal [facility] Comment on above: Performed By: #### C DP, BMP, TROPI ####[address] [place] [address] Erythrocyte distribution width Auto Ratio (RBC) 13.6 % Normal 12.1-15.2 [facility] Comment on above: Performed By: #### C DP, BMP, TROPI ####[address] [place] [address] Erythrocytes (RBC) 5.03 10*6/uL Normal 4.0-5.2 [facility] Comment on above: Performed By: #### C DP, BMP, TROPI ####[address] [place] [address] Hematocrit (HCT) 40.2 % Normal 36-46 [facility] Comment on above: Performed By: #### C DP, BMP, TROPI ####[address] [place] [address] Hemoglobin mass conc (Bld) 13.2 g/dL Normal 12.0-16.0 [facility] Comment on above: Performed By: #### C DP, BMP, TROPI ####[address] [place] [address] Lymphocytes 2.90 10*3/uL Normal 1.2-5.2 [facility] Comment on above: Performed By: #### C DP, BMP, TROPI ####[address] [place] [address] Lymphocytes/100 leukocytes 27 % Normal [facility] Comment on above: Performed By: #### C DP, BMP, TROPI ####[address] [place] [address] MCH 26.2 pg Normal 26-34 [facility] Comment on above: Performed By: #### C DP, BMP, TROPI ####[address] [place] [address] MCHC mass conc (RBC) 32.8 g/dL Normal 31-37 [facility] Comment on above: Performed By: #### C DP, BMP, TROPI ####[address] [place] [address] MCV 79.9 fL Low 80-100 [facility] Comment on above: Performed By: #### C DP, BMP, TROPI ####[address] [place] [address] Monocytes 0.60 10*3/uL Normal 0.0-1.0 [facility] Comment on above: Performed By: #### C DP, BMP, TROPI ####[address] [place] [address] Monocytes/100 leukocytes 5 % Normal [facility] Comment on above: Performed By: #### C DP, BMP, TROPI ####[address] [place] [address] Neutrophil (Seg) 65 % Normal [facility] Comment on above: Performed By: #### C DP, BMP, TROPI ####[address] [place] [address] Platelet mean volume (PMV) 9.6 fL Normal 6.0-12.0 [facility] Comment on above: Performed By: #### C DP, BMP, TROPI ####[address] [place] [address] Platelets 278 10*3/uL Normal 140-450 [facility] Comment on above: Performed By: #### C DP, BMP, TROPI ####[address] [place] [address] WBC (Leukocytes) 10.8 10*3/uL Normal 4.5-13.5 [facility] Comment on above: Performed By: #### C DP, BMP, TROPI ####[address] [place] [address] Auto Diff Performed NOT REPORTED Normal [facility] Comment on above: Performed By: #### C DP, BMP, TROPI ####[address] [place] [address] Erythrocyte morphology NOT REPORTED Normal [facility] Comment on above: Performed By: #### C DP, BMP, TROPI ####[address] [place] [address] Platelets NOT REPORTED Normal [facility] Comment on above: Performed By: #### C DP, BMP, TROPI ####[address] [place] [address] WBC Morphology NOT REPORTED Normal [facility] Comment on above: Performed By: #### C DP, BMP, TROPI ####[address] [place] [address] ED Noteon 02-19-2017 HIM IP Note OR On Line Csr Normal [facility] ED Provider Noteon 7 HIM IP Note OR On Line Csr Normal [facility] Troponinon 02-19-2017 Troponin T.cardiac mass conc ug/L Normal <0.03 [facility] Comment on above: Result Comment: Trop onin T results cannot be compared to Troponin-I results. Performed By: #### C DP, BMP, TROPI ####[address] [place] [address] Troponin I.cardiac mass conc Normal [facility] Comment on above: Result Comment: Refe rence Range: <0.03 Within reference range. 0.03-0.09 Possible myocardial damage.Repeat at appropriate intervals to rule out chronic elevation. >= 0.10 Indicative of myocardial damage.Performed at [address] [place] [address] Performed By: #### C DP, BMP, TROPI ####[address] , [place] [id number] Vital Signs Date Time Vital Sign Value Performing Clinician Facility 02-20-2025 11:10-0400 Body height 165.1 cm Little LOWRY Work Phone: [facility] 02-20-2025 11:10-0400 Body mass index (BMI) [Ratio] 28.58 kg/m2 Little LOWRY Work Phone: [facility] 02-20-2025 11:10-0400 Body weight 77.91 kg Little Ezra PA Work Phone: [facility] 02-20-2025 11:10-0400 Diastolic blood pressure 82 mm[Hg] Little Bartlett PA Work Phone: [facility] 02-20-2025 11:10-0400 Systolic blood pressure 122 mm[Hg] Little Ezra PA Work Phone: [facility] 09-14-2024 11:26-0400 Body mass index (BMI) [Ratio] 34.11 kg/m2 Little Bartlett PA Work Phone: [facility] 09-14-2024 11:26-0400 Body weight 92.99 kg Little Ezra PA Work Phone: [facility] 09-14-2024 11:26-0400 Diastolic blood pressure 80 mm[Hg] Little Ezra PA Work Phone: [facility] 09-14-2024 11:26-0400 Systolic blood pressure 120 mm[Hg] Little Ezra PA Work Phone: [facility] 08-01-2024 13:24-0500 Body mass index (BMI) [Ratio] 37.77 kg/m2 Berto Luis DO Work Phone: [facility] 08-01-2024 13:24-0500 Body weight 102.97 kg Berto Luis DO Work Phone: [facility] 08-01-2024 13:24-0500 Diastolic blood pressure 72 mm[Hg] Berto Luis DO Work Phone: [facility] 08-01-2024 13:24-0500 Systolic blood pressure 120 mm[Hg] Berto Luis DO Work Phone: [facility] 07-27-2024 08:59-0500 Body mass index (BMI) [Ratio] 37.67 kg/m2 Little Bartlett PA Work Phone: [facility] 07-27-2024 08:59-0500 Body weight 102.69 kg Little Ezra PA Work Phone: [facility] 07-27-2024 08:59-0500 Diastolic blood pressure 70 mm[Hg] Little Ezra PA Work Phone: [facility] 07-27-2024 08:59-0500 Systolic blood pressure 118 mm[Hg] Little Ezra PA Work Phone: [facility] 07-18-2024 10:02-0500 Body mass index (BMI) [Ratio] 36.91 kg/m2 Berto Luis DO Work Phone: [facility] 07-18-2024 10:02-0500 Body weight 100.61 kg Berto Luis DO Work Phone: [facility] 07-18-2024 10:02-0500 Diastolic blood pressure 70 mm[Hg] Berto Luis DO Work Phone: [facility] 07-18-2024 10:02-0500 Systolic blood pressure 130 mm[Hg] Berto Luis DO Work Phone: [facility] 07-04-2024 12:13-0500 Body mass index (BMI) [Ratio] 35.84 kg/m2 Little Bartlett PA Work Phone: [facility] 07-04-2024 12:13-0500 Body weight 97.7 kg Little Bartlett PA Work Phone: [facility] 07-04-2024 12:13-0500 Diastolic blood pressure 64 mm[Hg] Little Ezra PA Work Phone: [facility] 07-04-2024 12:13-0500 Systolic blood pressure 104 mm[Hg] Little Bartlett PA Work Phone: [facility] 06-21-2024 13:31-0500 Body mass index (BMI) [Ratio] 35.61 kg/m2 Little Ezra PA Work Phone: [facility] 06-21-2024 13:31-0500 Body weight 97.07 kg Little Bartlett PA Work Phone: [facility] 06-21-2024 13:31-0500 Diastolic blood pressure 72 mm[Hg] Little Ezra PA Work Phone: [facility] 06-21-2024 13:31-0500 Systolic blood pressure 116 mm[Hg] Little Ezra PA Work Phone: [facility] 06-07-2024 13:49-0500 Body mass index (BMI) [Ratio] 34.61 kg/m2 Berto Luis DO Work Phone: [facility] 06-07-2024 13:49-0500 Body weight 94.35 kg Berto Luis DO Work Phone: [facility] 06-07-2024 13:49-0500 Diastolic blood pressure 70 mm[Hg] Berto Luis DO Work Phone: [facility] 06-07-2024 13:49-0500 Systolic blood pressure 120 mm[Hg] Berto Luis DO Work Phone: [facility] 05-24-2024 14:26-0500 Body mass index (BMI) [Ratio] 33.75 kg/m2 Little Christie PA Work Phone: [facility] 05-24-2024 14:26-0500 Body weight 91.99 kg Little Ezra PA Work Phone: [facility] 05-24-2024 14:26-0500 Diastolic blood pressure 70 mm[Hg] Little Christie PA Work Phone: [facility] 05-24-2024 14:26-0500 Systolic blood pressure 108 mm[Hg] Little Ezra PA Work Phone: [facility] 05-09-2024 11:44-0500 Body mass index (BMI) [Ratio] 33.28 kg/m2 Berto Luis DO Work Phone: [facility] 05-09-2024 11:44-0500 Body weight 90.72 kg Berto Luis DO Work Phone: [facility] 05-09-2024 11:44-0500 Diastolic blood pressure 64 mm[Hg] Berto Luis DO Work Phone: [facility] 05-09-2024 11:44-0500 Systolic blood pressure 118 mm[Hg] Berto Luis DO Work Phone: [facility] 04-11-2024 10:37-0400 Body mass index (BMI) [Ratio] 31.12 kg/m2 Little Ezra PA Work Phone: [facility] 04-11-2024 10:37-0400 Body weight 84.82 kg Little Ezra PA Work Phone: [facility] 04-11-2024 10:37-0400 Diastolic blood pressure 68 mm[Hg] Little Ezra PA Work Phone: [facility] 04-11-2024 10:37-0400 Systolic blood pressure 116 mm[Hg] Little Christie PA Work Phone: [facility] 03-14-2024 11:44-0400 Body mass index (BMI) [Ratio] 28.62 kg/m2 Berto Luis DO Work Phone: [facility] 03-14-2024 11:44-0400 Body weight 78.02 kg Berto Luis DO Work Phone: [facility] 03-14-2024 11:44-0400 Diastolic blood pressure 74 mm[Hg] Berto Luis DO Work Phone: [facility] 03-14-2024 11:44-0400 Systolic blood pressure 118 mm[Hg] Berto Luis DO Work Phone: [facility] 02-27-2023 14:39-0400 Blood Pressure Location Gary MORRIS [facility] 02-27-2023 14:39-0400 Diastolic blood pressure 66 mm[Hg] Gary MORRIS [facility] 02-27-2023 14:39-0400 Heart rate 70 /min [facility] 14:39-0400 Respiratory rate 16 /min Gary MORRIS [facility] [place] 02-27-2023 14:39-0400 Systolic blood pressure 106 mm[Hg] Gary MORRIS [facility] [place] 01-08-2022 08:09-0400 Body temperature 98.01 [degF] Wiley Rice DO Work Phone: [facility] 01-08-2022 08:09-0400 Body weight 75.75 kg Wiley Rice DO Work Phone: [employer] 01-08-2022 08:09-0400 Diastolic blood pressure 71 mm[Hg] Wiley Rice DO Work Phone: [facility] 01-08-2022 08:09-0400 Heart rate 98 /min Wiley Rice DO Work Phone: [facility] 01-08-2022 08:09-0400 Systolic blood pressure 112 mm[Hg] Wiley Rice DO Work Phone: [employer] 12-10-2021 14:45-0400 Body height 166.37 cm Bret Long Other [facility] Other 12-10-2021 14:45-0400 Body mass index (BMI) [Ratio] 26.55 kg/m2 Bret Long Other [facility] Other 12-10-2021 14:45-0400 Body weight 73.48 kg Bret Long Other [facility] Other 12-10-2021 14:45-0400 Diastolic blood pressure 72 mm[Hg] Bret Long Other [facility] Other 12-10-2021 14:45-0400 Systolic blood pressure 103 mm[Hg] Bret Long Other [facility] Other 11-27-2021 14:01-0400 Body temperature 98.4 [degF] Wiley Rice DO Work Phone: [facility] 11-27-2021 14:01-0400 Body weight 74.84 kg Wiley Rice DO Work Phone: [facility] 11-27-2021 14:01-0400 Diastolic blood pressure 64 mm[Hg] Wiley Rice DO Work Phone: [facility] 11-27-2021 14:01-0400 Heart rate 98 /min Wiley Rice DO Work Phone: [facility] 11-27-2021 14:01-0400 Systolic blood pressure 121 mm[Hg] Wiley Rice DO Work Phone: [facility] 12-05-2020 19:26-0400 Heart rate 106 /min James Breece PA-C Work Phone: [facility] 12-05-2020 19:25-0400 Body temperature 98.29 [degF] James Breece PA-C Work Phone: [facility] 12-05-2020 19:25-0400 Body weight 97.98 kg James Breece PA-C Work Phone: [facility] 12-05-2020 19:25-0400 Diastolic blood pressure 86 mm[Hg] James Breece PA-C Work Phone: [facility] 12-05-2020 19:25-0400 Respiratory rate 16 /min James Breece PA-C Work Phone: [facility] 12-05-2020 19:25-0400 SaO2% (BldA) [Mass fraction] 97 % James Breece PA-C Work Phone: [facility] 12-05-2020 19:25-0400 Systolic blood pressure 126 mm[Hg] James Churchill PA-C Work Phone: [facility] Encounters Encounter Date Encounter Type Care Provider Facility Start: 02-20-2025 End: 02-20-2025 Bamboo flowsheet Little LOWRY Work Phone: [facility] Start: 02-20-2025 End: 02-20-2025 Bamboo flowsheet Little LOWRY Work Phone: [facility] Start: 02-20-2025 End: 02-20-2025 Patient encounter procedure Little LOWRY Work Phone: [facility] Start: 02-20-2025 End: 02-20-2025 Periodic preventive med est patient 18-39 yrs Little LOWRY Work Phone: [facility] Comment on above: Well woman exam with routine gynecological exam Start: 09-14-2024 End: 09-14-2024 care visit Little LOWRY Work Phone: [facility] Comment on above: 6 weeks f ollow-up Start: 09-14-2024 End: 09-14-2024 ambulatory LITTLE CHRISTIE Not Available Start: 08-05-2024 End: 08-05-2024 Clinisync Result Encounter Berto Luis DO Work Phone: [facility]solic[facility] Start: 08-05-2024 End: 08-05-2024 Clinisync Result Encounter Berto Luis DO Work Phone: [facility] Start: 08-04-2024 End: 08-04-2024 Clinisync Result Encounter Berto Luis DO Work Phone: [facility]solicited Start: 08-04-2024 End: 08-04-2024 Clinisync Result Encounter Berto Luis DO Work Phone: [facility] Start: 08-03-2024 End: 08-03-2024 Clinisync Result Encounter Berto Luis DO Work Phone: [facility] Start: 08-03-2024 End: 08-03-2024 Clinisync Result Encounter Berto Luis DO Work Phone: [facility] Start: 08-01-2024 End: 08-01-2024 Bamboo flowsheet Berto Luis DO Work Phone: [facility] Start: 08-01-2024 End: 08-01-2024 Bamboo flowsheet Berto Luis DO Work Phone: [facility] Start: 08-01-2024 End: 08-01-2024 Office outpatient visit 15 minutes Berto Luis DO Work Phone: [facility] Comment on above: Third trimester preg lenin; 38 weeks gestation of Start: 08-01-2024 End: 08-01-2024 ambulatory BERTO LUIS Not Available Start: 07-27-2024 End: 07-27-2024 [...] Result Encounter Berto Luis DO Work Phone: [facility] External Department Unsolicited Start: 07-18-2024 End: [...] Result Encounter Berto Luis DO Work Phone: [facility] External Department Unsolicited Start: 07-04-2024 [...] OB Start: 06-21-2024 End: 06-21-2024 ambulatory LITTLE ADLEREY Not Available Start: 06-21-2024 End: 06-21-2024 Office [...] visit 15 minutes Little LOWRY Work Phone: [facility] Comment on above: Third trimester preg lenin; 29 weeks gestation of ; Upper respiratory tract infection, unspecified type Start: 05-24-2024 End: 05-24-2024 ambulatory LITTLE CHRISTIE Not Available Start: 05-24-2024 End: 05-24-2024 Bamboo flowsheet Little LOWRY Work Phone: [facility] Start: 05-24-2024 End: 05-24-2024 Bamboo flowsheet Little LOWRY Work Phone: [facility] Start: 05-09-2024 End: 05-09-2024 Bamboo flowsheet Berto Luis DO Work Phone: [facility] Start: 05-09-2024 End: 05-09-2024 Bamboo flowsheet Berto Luis DO Work Phone: [facility] Start: 05-09-2024 End: 05-09-2024 Office outpatient visit 15 minutes Berto Luis DO Work Phone: [facility] Comment on above: Second trimester pre gnancy; 26 weeks gestation of ; History of miscarriage Start: 05-09-2024 End: 05-09-2024 ambulatory BERTO LUIS Not Available Start: 04-11-2024 End: 04-11-2024 Bamboo flowsheet Little LOWRY Work Phone: [facility] Start: 04-11-2024 End: 04-11-2024 Bamboo flowsheet Little LOWRY Work Phone: [facility] Start: 04-11-2024 End: 04-11-2024 Office outpatient visit 15 minutes Little LOWRY Work Phone: [facility] Comment on above: Second trimester pre gnancy; 22 weeks gestation of ; Diabetes mellitus screening Start: 04-11-2024 End: 04-11-2024 ambulatory LITTLE EZRA Not Available Start: 03-23-2024 End: 03-23-2024 ambulatory BERTO R LUIS [facility] Start: 03-14-2024 End: 03-14-2024 Bamboo flowsheet Berto Luis DO Work Phone: [facility] Start: 03-14-2024 End: 03-14-2024 Bamboo flowsheet Berto Luis DO Work Phone: [facility] Start: 03-14-2024 End: 03-14-2024 Office outpatient visit 15 minutes Berto Luis DO Work Phone: [facility] Comment on above: Second trimester [...] Gary MORRIS [facility] Start: 08-21-2023 ambulatory Alexandr Bourgeois Facility:[facility] Start: 02-05-2023 ambulatory Gary DANGELOJosafat Facility:[facility] Start: 11-07-2022 End: 11-08-2022 ambulatory [...] BELTRAN . Facility:[facility] Start: 02-18-2022 ambulatory WILEY Huffman~[id number] [facility] Start: 02-12-2022 ambulatory WILEY Huffman~[id number] [facility] Start: 02-12-2022 End: 02-12-2022 Telemedicine consultation with patient Wiley Osorio DO Work Phone: [facility] Comment on above: Anxiety (Primary Dx) Start: 01-19-2022 Refill Luis Dipalma D O Work Phone: [facility] Start: 01-19-2022 Refill Luis Dipalma D O Work Phone: [facility] Start: 01-08-2022 End: 01-08-2022 ambulatory WILEY Huffman~[id number] [facility] Start: 01-08-2022 End: 01-08-2022 Office outpatient visit 25 minutes Wiley Osorio DO Work Phone: [facility] Comment on above: Anxiety (Primary Dx) ; Hypotension, unspecified hypotension type Start: 01-08-2022 End: 01-08-2022 Patient encounter procedure Wiley M Rice DO Work Phone: [facility] Start: 12-11-2021 End: 12-11-2021 ambulatory WILEY Huffman~[id number] YVONNE OSORIO [facility] Start: 12-10-2021 End: 12-10-2021 ambulatory Bret Long Other [facility] Other Start: 12-10-2021 Office outpatient ne w 45 minutes Bret Long [facility] Start: 11-27-2021 End: 11-27-2021 ambulatory WILEY Huffman~[id number] YVONNE OSORIO [facility] Start: 11-27-2021 End: 11-27-2021 Office outpatient new 30 minutes Wiley Huffman Rice DO Work Phone: [facility] Comment on above: Anxiety (Primary Dx) Start: 11-27-2021 End: 11-27-2021 Patient encounter procedure Wiley Osorio DO Work Phone: [facility] Start: 11-25-2021 Telephone encounter Dana Kinsey [facility] Start: 12-05-2020 End: 12-05-2020 ambulatory PHYSICIAN NO [facility] Start: 12-05-2020 End: 12-05-2020 Office outpatient new 20 minutes James DENNYC Work Phone: [facility] [place] Comment on above: Vaginal sore (Primar y Dx) Start: 02-19-2017 End: 02-19-2017 Emergency department patient visit KIM [facility] Procedures Date Procedure Procedure Detail Performing Clinician Start: 08-05-2024 [facility] UA (CLEAN/CATCH) SLACKMAN/MICRO IF IND. Berto Luis DO Work Phone: Start: 08-04-2024 ALL CBC WITH AUTO DIFF Berto Luis DO Work Phone: Start: 08-03-2024 [facility] CBC WITH PLATEL ET NO DIFFERENTIAL Berto Luis DO Work Phone: Start: 08-01-2024 Urnls dip stick/tabl et rgnt non-auto w/o micrscp Berto Luis DO Work Phone: Start: 07-18-2024 Urnls [...] Start: 12-05-2020 Urine test visual color cmprsn rudys James Churchill PA-C Work Phone: Start: 02-19-2017 Ct angiography chest w/contrast/noncontrast KIM ENA Start: 02-19-2017 SALINE LOCK IV KIM ARREDONDO MARYJO Start: 02-19-2017 TELEMETRY MONITORING SEBASTIAN CRESPO SUTHERLAND Start: 02-19-2017 BASIC METABOLIC PANEL Nathanael SUTHERLAND Start: 02-19-2017 CBC WITH AUTO DIFFERENTIAL KIM SUTHERLAND Start: 02-19-2017 TROPONIN KIM Howell Start: 02-19-2017 EKG 12-LEAD KIM IRISZIYAD Dante None (qualifier value) Henrik MORRIS Plan of Treatment Date Care Activity Detail Author Start: 02-22-2026 End: 02-22-2026 Patient encounter procedure 02/22/2026 10:00 AM EDT Procedure Visit [facility] [address] [phone] Berto Smith DO [address], [facility] Start: 03-06-2025 Influenza vaccination Influenza Vacc ine (#1) [facility] Start: 02-20-2025 End: 02-20-2025 Patient encounter procedure 02/20/2025 11:00 AM EDT Office Visit [facility] [address] [phone] Little Christie PA [address] [place], [place] [id number] Arrived [facility] Comment on above: Arrived Start: 09-14-2024 End: 09-14-2024 ambulatory 09/14/2024 11:20 AM EDT Visit [facility] [address] [place] [phone] Little Christie, PA [address] [place], [place] [id number] [facility] Start: 08-01-2024 End: 08-01-2024 Patient encounter procedure [facility] Comment on above: Arrived Start: 07-27-2024 End: 07-27-2024 Patient encounter procedure 07/27/2024 8:50 AM EST Routine [facility] [address] [phone] Little Christie, PA [address] [place] [address] [place] [address] [facility] Start: 07-18-2024 End: 07-18-2025 [...] AM EST Routine [facility] [address] [phone] Little Christie, PA [address] [place] [address] [facility] Start: 06-21-2024 End: 06-21-2024 Patient encounter procedure 06/21/2024 1:20 PM EST Routine [facility] [address] [phone] Little Christie, PA [address] [place] [address] [facility] Start: 06-07-2024 End: 06-07-2024 Patient encounter procedure 06/07/2024 1:30 PM EST Routine [facility] [address] [address] Berto Smith DO [address] [place] [address] [facility] Start: 05-24-2024 End: 05-24-2024 Patient encounter procedure 05/24/2024 2:10 PM EST Routine [facility] [address] [phone] Little Christie, PA [address] [place], [place] [phone] Arrived [facility] Comment on above: Arrived Start: 05-23-2024 End: 05-23-2024 Patient encounter procedure 05/23/2024 1:50 PM EST Routine [facility] [address] [phone] Little Christie, PA [address] [place], [place] [id number] [facility] Start: 05-09-2024 End: 05-09-2025 [...] mellitus screening Expected: 04/11/2024 (Approximate), Expires: 04/11/2025 [facility] Comment on above: Expected: 04/11/2024 (Approximate), Expires: 04/11/2025 Start: 04-11-2024 End: 04-11-2024 Patient encounter procedure [facility] Comment on above: Arrived Start: 03-14-2024 End: 03-14-2024 Patient encounter procedure 03/14/2024 11:20 AM EDT Routine [facility] [address] [address] Berto Smith, DO [address] [place] [address] Arrived [facility] Comment on above: Arrived Start: 03-06-2024 Influenza vaccination Influenza Vacc ine (#1) [facility] Start: 11-27-2022 Adolescent depressio n screening assessment Depression Screening [facility] Start: 03-06-2022 Influenza vaccination [facility] Start: 02-07-2022 End: 02-07-2022 Patient encounter procedure 02/07/2022 Office Visit [facility] Wiley Osorio DO [address] [place] [phone] [facility] Start: 12-19-2021 End: 12-19-2021 Patient encounter procedure 12/19/2021 Office Visit [facility] Wiley Osorio DO [address] [place] [phone] [facility] Start: 12-07-2021 COVID-19 Vaccine (3 - Booster for Moderna series) COVID-19 Vaccine (3 - Booster for Moderna series) [facility] Start: 11-27-2021 End: 11-27-2021 Patient encounter procedure 11/27/2021 Office Visit Family Medicine Wiley Osorio, DO [address] [place] [address] [facility] Start: 11-24-2021 Adolescent depressio n screening assessment Depression Screening [facility] Start: 11-24-2021 Hepatitis C screening Hepatitis C Sc reening [facility] Start: 11-24-2021 HIV screening HIV Screening [facility] Start: 11-24-2021 Social Influencers o f Health Screening Social Influencers of Health Screening [facility] Start: 03-06-2021 Influenza vaccination Sequenti al Influenza Vaccine (Season Ended) [facility] Start: 2017 Screening for malign ant neoplasm of cervix Cervical Cancer Screening: Pap Smear [facility] Start: 2015 DTaP,Tdap,and Td Vaccines (1 - Tdap) DTaP,Tdap,and Td Vaccines (1 - Tdap) [facility] Start: 2014 Hepatitis C screening Hepatitis C Sc reening [facility] Start: 2011 HIV screening HIV Screening [facility] Start: 2008 COVID-19 Vaccine (1) COVID-19 Vaccin e (1) [facility] Start: 2008 Depression screening using PHQ-9 (Patient Health Questionnaire 9) score Depression Screening (PHQ9) [facility] Start: 2007 HPV Vaccines (1 - 2- dose series) HPV Vaccines (1 - 2-dose series) [facility] Start: 2007 Vaccination for april n papillomavirus HPV Vaccines (1 - 2-dose series) [facility] Start: 2001 COVID-19 Vaccine (1) COVID-19 Vaccin e (1) [facility] Start: 1999 History and physical examination, annual for health maintenance Wellness Visit [facility] Start: 1996 Screening for Chlamy marilee trachomatis Chlamydia Screening [facility] Start: 1996 Screening for malign ant neoplasm of cervix Pap Smear [facility] Start: 1996 Tetanus vaccination Tetanus: Every 1 0yrs [facility] Chlamydia trachomati s rRNA assay Chlamydia/GC/Trichomona s Amplified RNA Microbiology Routine Vaginal sore Ordered: 12/05/2020 [facility] Comment on above: Ordered: 12/05/2020 Cytology Cervical or vaginal smear or scraping study Pap Smear Pathology and Cytology Routine Well woman exam with routine gynecological exam Ordered: 02/20/2025 [facility] Work Phone: Comment on above: Ordered: 02/20/2025 HSV by PCR Superfici al Site HSV by PCR Superficial Site Lab Routine Vaginal sore Ordered: 12/05/2020 [facility] Comment on above: Ordered: 12/05/2020 Neisseria gonorrhoea e nucleic acid detection Chlamydia/Gonorrhoeae Amplified RNA Microbiology Routine Vaginal sore Ordered: 12/05/2020 [facility] Comment on above: Ordered: 12/05/2020 Trichomonas vaginali s Amplified RNA Trichomonas vaginalis Amplified RNA Microbiology Routine Vaginal sore Ordered: 12/05/2020 [facility] Comment on above: Ordered: 12/05/2020 Immunizations Immunization Date Immunization Notes Care Provider [facility] 07-09-2021 SARS-CoV-2 (COVID-19 ) mRNA-1273 vaccine Gary DANGELOJosafat [facility] [place] 06-08-2021 SARS-CoV-2 (COVID-19 ) mRNA-1273 vaccine Gary DANGELOJosafat [facility] [place] 04-10-2011 influenza virus vaccine, unspecified formulation Berto Luispriscilla RUBY Work Phone: [facility] Healthcare Payers Date Payer Category Payer Private Health Insurance [facility] [id number] 2021 Medicaid [id number] 2020 Medicaid [id number]. [id number] 2016 Unknown [id number] 2013 Unknown [id number] 1996 Unknown [id number] 2.16.840.1.058865.3.579.2. 903 1996 Unknown [id number] 2.16.840.1.110897.3.579.2. 1143 1996 Unknown [id number] 2.16.840.1.385936.3.579.2. 1143 1996 Unknown [id number] 2.16.840.1.338474.3.579.2. 1143 1996 Unknown [id number] 2.16.840.1.932435.3.579.2. 1143 1996 Unknown [id number] 2.16.840.1.522643.3.579.2. 1143 1996 Unknown [id number] 2.16.840.1.082325.3.579.2. 593 1996 Unknown [id number] 2.16.840.1.500118.3.579.2. 593 1996 Unknown [id number] 2.16.840.1.359008.3.579.2. 593 1996 Unknown [id number] 2.16.840.1.139556.3.579.2. 593 1996 Unknown [id number] 2.16.840.1.844486.3.579.2. 593 1996 Unknown [id number] 2.16.840.1.060566.3.579.2. 593 1996 Unknown [id number] 2.16.840.1.732154.3.579.2. 593 1996 Unknown [id number] 2.16.840.1.933522.3.579.2. 727 1996 Unknown [id number] 2.16.840.1.958272.3.579.2. 1285 1996 Unknown [id number] 2.16.840.1.433802.3.579.2. 1285 1996 Unknown [id number] 2.16.840.1.594450.3.579.2. 1258 1996 Unknown [id number] 2.16.840.1.000366.3.579.2. 1258 1996 Unknown [id number] 2.16.840.1.561193.3.579.2. 1258 1996 Unknown [id number] 2.16.840.1.860241.3.579.2. 1258 1996 Unknown [id number] 2.16.840.1.709678.3.579.2. 1258 1996 Unknown [id number] 2.16.840.1.898141.3.579.2. 1258 1996 Unknown [id number] 2.16.840.1.082426.3.579.2. 1258 1996 Unknown [id number] 2.16.840.1.359440.3.579.2. 1258 1996 Unknown [id number] 2.16.840.1.062546.3.579.2. 1258 1996 Unknown [id number] 2.16.840.1.528699.3.579.2. 1258 1996 Unknown [id number] 2.16.840.1.773878.3.579.2. 1258 1996 Unknown [id number] 2.16.840.1.275296.3.579.2. 1258 1996 Unknown [id number] 2.16.840.1.772102.3.579.2. 1258 1996 Unknown [id number] 2.16.840.1.517374.3.579.2. 1259 1996 Unknown [id number] 2.16.840.1.416857.3.579.2. 1259 1960 Unknown [id number] 2.16.840.1.267136.3.579.2. 727 1959 Medicaid [id number] 1959 Self-pay 1959 Unknown [id number] 1959 Unknown [id number] 1959 Unknown [id number] Unknown [id number] 2.16.840.1.859746.3.579.2. 531 Social History Date Type Detail Facility Start: 12-05-2020 End: 02-27-2023 Tobacco smoking status MEIS Never smoker [facility] Start: 12-05-2020 End: 11-27-2021 Tobacco use and exposure Never used [facility] Start: 12-05-2020 Alcohol intake Current drinke r of alcohol (finding) [facility] Start: 12-05-2020 End: 11-27-2021 History SDOH Alcohol Frequency 1 [facility] Start: 12-05-2020 Alcohol Comment occ [facility] Start: 1996 Sex Assigned At Not on file [facility] Start: 11-17-2021 End: 02-12-2022 Exposure to SARS-CoV-2 (event) Not sure [facility] Tobacco smoking stat [facility] Tobacco smoking consumption unknown [facility] Start: 11-27-2021 End: 02-20-2025 Alcohol intake Lifetime non-drinker (finding) [facility] Start: 1996 Sex Assigned At Female [facility] Start: 12-17-2023 End: 04-11-2024 [facility] Tobacco smoking status Never [facility] [place] Start: 03-28-2023 Tobacco smoking stat [facility] Ex-smoker [facility] History of tobacco use Current smoker [facility] History of tobacco use Cigarette Smoker [facility] Start: 12-17-2023 End: 04-11-2024 History of Social function [facility] Start: 11-17-2023 [facility] Start: 01-19-2023 Gender identity Identifies as female gender (finding) [facility] Functional Status Date Assessment Result Facility 02-27-2023 Functional Status N/A [facility] Clinical Notes 12-05-2020 to 02-20-2025 ESSENCE Haley - 02/20/2025 11:00 AM ESSENCE Fisher - 09/14/2024 11:20 AM Brandin Tse LPN - 08/01/2024 1:20 PM ESSENCE Mahan - 07/27/2024 8:50 AM ESSENCE Mahan - 07/04/2024 11:50 AM EST Note Date & Type Note Facility 02-20-2025 History of Present illness Narrative Reason for Appointment: Patient ID: Leslie Ford is a 29 y.o. female who presents for Well Women Visit Patient presents today for Annual Exam. MEDICATIONS Current Outpatient Medications Medication Instructions hyoscyamine (LEVSIN) 0.125 mg, Every 4 hours PRN ondansetron ODT (ZOFRAN-ODT) 4 mg, Oral, Every 6 hours PRN ALLERGIES No Known Allergies PROBLEMS Active Ambulatory Problems Diagnosis Date Noted History of miscarriage 05/09/2024 Resolved Ambulatory Problems Diagnosis Date Noted 26 weeks gestation of ([facility]) 05/09/2024 Third trimester ([facility]) 07/04/2024 34 weeks gestation of ([facility]) 07/04/2024 Past Medical History: Diagnosis Date Acne ADD (attention deficit disorder) Anxiety and depression ASCUS of cervix with negative high risk HPV BMI 27.0-27.9,adult Cystic fibrosis carrier Dysmenorrhea Encounter for gynecological examination (general) (routine) without abnormal findings Herpes simplex type 1 infection Intrauterine device surveillance Irritable bowel syndrome LGSIL on Pap smear of cervix Menorrhagia HISTORY PAST MEDICAL HISTORY SOCIAL HISTORY Past Medical History: Diagnosis Date Acne ADD (attention deficit disorder) Anxiety and depression ASCUS of cervix with negative high risk [...] Objective: Physical Exam Constitutional: Appearance: Normal appearance. Genitourinary: Right Adnexa: not tender and no mass present. Left Adnexa: not tender and no mass present. No cervical discharge. Breasts: Breasts are soft. Right: Normal. Left: Normal. HENT: Head: Normocephalic. Nose: Nose normal. Mouth/Throat: Mouth: Mucous membranes are moist. Cardiovascular: Rate and Rhythm: Normal rate. Pulmonary: Effort: Pulmonary effort is normal. Abdominal: General: Bowel sounds are normal. Palpations: Abdomen is soft. Musculoskeletal: General: Normal range of motion. Cervical back: Normal range of motion. Neurological: General: No focal deficit present. Mental Status: She is alert. Skin: General: Skin is warm and dry. Psychiatric: Mood and Affect: Mood normal. Vitals and nursing note reviewed. Exam conducted with a folding machine feeder present. Vitals: Estimated body mass index is 28.58 kg/m as calculated from the following: Height as of this encounter: 5' 5 . Weight as of this encounter: 171 lb 12 oz. BP: 122/82 Patient's last menstrual period was 01/22/2025. ASSESSMENT & PLAN ICD-10-CM 1. Well woman exam with routine gynecological exam Z01.419 Pap Smear Annual Exam: Patient presents today for an annual exam. Patient states she is doing well and has no complaints. Pap was obtained without difficulty. No orders of the defined types were placed in this encounter. Follow Up: Patient is to return in one year for annual unless needed otherwise. Documented by ESSENCE Haley on behalf of: ESSENCE Haley documented in this encounter [facility] 09-14-2024 History of Present illness Narrative Reason for Appointment: Patient ID: Leslie Ford is a 29 y.o. female who presents for Follow-up Patient presents today for Post Follow Up appointment. MEDICATIONS Current Outpatient Medications Medication Instructions hyoscyamine (LEVSIN) 0.125 mg, Every 4 hours PRN ondansetron ODT (ZOFRAN-ODT) 4 mg, Oral, Every 6 hours PRN phentermine (ADIPEX-P) 37.5 mg, Daily before breakfast ALLERGIES No Known Allergies PROBLEMS Active Ambulatory Problems Diagnosis Date Noted History of miscarriage 05/09/2024 Resolved Ambulatory Problems Diagnosis Date Noted 26 weeks gestation of 05/09/2024 Third trimester 07/04/2024 34 weeks gestation of 07/04/2024 Past Medical History: Diagnosis Date Acne ADD [...] reviewed. Vitals: Estimated body mass index is 34.11 kg/m as calculated from the following: Height as of 23: 5' 5 . Weight as of this encounter: 205 lb. BP: 120/80 No LMP recorded. ASSESSMENT & PLAN ICD-10-CM 1. 6 weeks follow-up Z39.2 Post Follow Up: Patient is doing well Patient presents today for 6 week visit. Patient is s/p Vaginal delivery. Patient states depression but denies suicidal and homicidal ideations. All options were discussed with the patient regarding control and patient desires none at this time. Follow Up: Patient is to return for annual unless needed otherwise. Documented by ESSENCE Haley on behalf of: ESSNECE Haley documented in this encounter [facility] 08-01-2024 History of Present illness Narrative Reason [...] DO documented in this encounter [facility] 07-27-2024 History of Present illness Narrative Reason [...] Haley documented in this encounter [facility] 07-18-2024 History of Present illness [...] nursing note reviewed. Exam conducted with a folding machine feeder present. Vitals: Estimated body mass index [...] DO documented in this encounter [facility] 07-04-2024 History of Present illness [...] nursing note reviewed. Exam conducted with a folding machine feeder present. Vitals: Estimated body mass index [...] Haley documented in this encounter [facility] 06-21-2024 History of Present illness [...] nursing note reviewed. Exam conducted with a folding machine feeder present. Vitals: Estimated body mass index [...] PA-C documented in this encounter [facility] 06-07-2024 History of Present illness [...] nursing note reviewed. Exam conducted with a folding machine feeder present. Vitals: Estimated body mass index [...] DO documented in this encounter [facility] 05-24-2024 History of Present illness [...] Haley documented in this encounter [facility] 05-09-2024 History of Present illness [...] nursing note reviewed. Exam conducted with a folding machine feeder present. Vitals: Estimated body mass index [...] DO documented in this encounter [facility] 04-11-2024 History of Present illness [...] Haley documented in this encounter [facility] 03-14-2024 History of Present illness [...] nursing note reviewed. Exam conducted with a folding machine feeder present. Vitals: Estimated body mass index [...] DO documented in this encounter [facility] 02-27-2023 Note Chief Complaint consultation [...] Recorded SARS-CoV-2 (COVID-19) mRNA-1273 vaccine 06/08/2021 Recorded [facility] Comment on above: Result Comment: Elec [...] at later date. documented in this encounter [facility] 01-08-2022 History of Present illness Narrative [...] due to buspirone. documented in this encounter [facility] 12-10-2021 Evaluation note Encounter Date Diagnosis Assessment Notes Dec, Irritable bowel syndrome with diarrhea (ICD-10 - K58.0) Continue medications without change Dec, Epigastric pain (ICD-10 - R10.13) Dec, Chronic nausea (ICD-10 - R11.0) Dec, Family history of carcinoma in situ of anal canal (ICD-10 - Z84.89) Dec, Other Continue Cari kauffman Pt to call if symptoms worsen [facility] 05-25-2022 History of Present illness Narrative* Wiley Osorio, - 11/27/2021 2:00 PM EDT Subjective Patient ID: Leslie Ford is a 26 y.o. female. Chief Complaint [facility] with [facility] 26 y.o. female [facility] History of anxiety and depression. Has been [...] it ( July 2017) [facility] [id number] History of Present illness Narrative* Dana Rosario [...] like me to do? documented in this [facility]06-02-2021 History of Present illness Narrative* James Churchill PA-C - 12/05/2020 8:22 PM EDT Images from the original note were not included. Patient Name: [facility] [place] [facility] [address] Date Of : Date Of Visit: 1995 12/05/2020 MRN# Provider: [id number] James Churchill PA-C Chief Complaint Patient presents [...] urine from irritatingthe sores. ? Take an qtrz-ihn-aimxege pain medicine, such as acetaminophen (Tylenol), ibuprofen [...] Log into your personal health record on [email or web address] That Odd and enter E579 in the Education box to learn more about Genital Herpes: Care Instructions. Current as of: August 31, 2019 Content Version: 12.8 [employer]. Care instructions adapted under license by your healthcare professional. If you have questions about a medical condition or this instruction, always ask your healthcare professional. [employer] disclaims any warranty or liability for your use of this information. documented in this [id number] Instructions* Patient Instructions* James Churchill PA-C - [...] urine from irritatingthe sores. ? Take an gtwr-osl-qfdrjdm pain medicine, such as acetaminophen (Tylenol), ibuprofen [...] Log into your personal health record on [email or web address]://[employer] [email or web address] That Odd and enter E579 in the Education box to learn more about Genital Herpes: Care Instructions. Current as of: August 31, 2019 Content Version: 12.8 [employer]. Care instructions adapted under license by your healthcare professional. If you have questions about a medical condition or this instruction, always ask your healthcare professional. [employer] disclaims any warranty or liability for your use of this information. documented in this [facility] note No data available for this section General Surgery [place] Evaluation note* Diagnosis Vaginal sore- Primary [facility] Diagnosis Anxiety- Primary Anxiety state, unspecified [facility] Diagnosis Anxiety- Primary Anxiety state, unspecified Hypotension, unspecified hypotension type [facility] Diagnosis Anxiety- Primary Anxiety state, unspecified [facility] Diagnosis Second trimester state, incidental 22 weeks gestation of Diabetes mellitus screening Screening for diabetes mellitus documented in this encounter [facility]* Diagnosis Second trimester state, incidental 26 weeks gestation of History of miscarriage Personal history of other genital system and obstetric disorders documented in this encounter [facility]* Diagnosis 31 weeks gestation of Third trimester state, incidental Gastroesophageal reflux in documented in this encounter [facility]* Diagnosis Third trimester state, incidental 33 weeks gestation of documented in this encounter [facility]* Diagnosis Second trimester state, incidental documented in this encounter [facility]* Diagnosis Third trimester state, incidental 29 weeks gestation of Upper respiratory tract infection, unspecified type documented in this encounter [facility]* Diagnosis Third trimester state, incidental 34 weeks gestation of documented in this encounter [facility]* Diagnosis 36 weeks gestation of Third trimester state, incidental H/O cold sores documented in this encounter [facility]* Diagnosis Third trimester state, incidental 38 weeks gestation of documented in this encounter [facility]* Diagnosis Third trimester state, incidental 38 weeks gestation of documented in this encounter [facility]* Diagnosis 6 weeks follow-up documented in this encounter [facility]* Diagnosis Well woman exam with routine gynecological exam Routine gynecological examination [facility] N[facility]ative - Reported* Type Description Date Medical History IBS [facility] Hospital Discharge instructions No data available for this section General Surgery [place] Progress note No data available for this section General Surgery [place] Summary Purpose Family History No Family History Records FoundNo Family History Records FoundNo Family History Records FoundNo Family History Records FoundNo Family History Records FoundNo Family History Records FoundNo Family History Records FoundNo Family History Records FoundNo Family History Records Found Advance Directives Documents on File Type Date Recorded Patient Pattern Maker Expl anation Advance Directives and Living Will Documents on File Type Date Recorded Patient Pattern Maker Expl anation Power of Filenet Developer Additional Source Comments INFORMATION SOURCE (unrecogn ized section and content) DATE CREATED AUTHOR 12/30/2017 [facility] DATE CREATED AUTHOR AUTHOR'S ORGANIZ ATION 12/06/2020 [facility] DATE CREATED AUTHOR AUTHOR'S ORGANIZ ATION 02/16/2022 [facility] [place] DATE CREATED AUTHOR AUTHOR'S ORGANIZ ATION 02/27/2022 [facility] DATE CREATED AUTHOR AUTHOR'S ORGANIZ ATION 11/14/2022 [facility] DATE CREATED AUTHOR AUTHOR'S ORGANIZ ATION 03/02/2023 [facility] DATE CREATED AUTHOR AUTHOR'S ORGANIZ ATION 07/05/2023 [facility] DATE CREATED AUTHOR AUTHOR'S ORGANIZ ATION 03/25/2024 [facility] DATE CREATED AUTHOR AUTHOR'S ORGANIZ ATION 09/17/2024 [facility] EPIC Reason for Visit (unrecogniz ed section and content) Reason Comments Vaginal Pain around vagina, open sores, sometimes painful. x3 days. pt is breastsfeeding Reason Comments Establish Care Reason Comments Follow-up Bp is low now, Reason Onset Date Comments Med Refill 01/19/2022 Reason Comments Follow-up Reason Comments Routine Visit Reason Comments Follow-up Reason Comments Well Women Visit Ordered Prescriptions (unrec ognized section and [...] Care Teams (unrecognized sec tion and content) Household Cook Relationship Specialty Start Date End Date Wiley Osorio, DO [address] [place] [phone] PCP - General Family Medicine 11/27/21 Household Cook Relationship Specialty Start Date End Date Wiley Osorio, DO [address] [place] [address] PCP - General Family Medicine 11/27/21 Household Cook Relationship Specialty Start Date End Date Wiley Osorio, DO [address] [place] [address] PCP - General Family Medicine 11/27/21 Household Cook Relationship Specialty Start Date End Date Homar Beltran MD [address] [place] [address] PCP - General Family Medicine 01/20/23 Household Cook Relationship Specialty Start Date End Date Homar Beltran MD [address] [place] [address] PCP - General Family Medicine 01/20/23 Household Cook Relationship Specialty Start Date End Date Homar Beltran MD [address] [place] [address] PCP - General Family Medicine 01/20/23 Household Cook Relationship Specialty Start Date End Date Homar Beltran MD [address] [place] [address] PCP - General Family Medicine 01/20/23 Household Cook Relationship Specialty Start Date End Date Homar Beltran MD [address] [place] [facility] [address] PCP - General Family Medicine 01/20/23 Household Cook Relationship Specialty Start Date End Date Homar Beltran MD [address] [place] [facility] [address] PCP - General Family Medicine 01/20/23 Household Cook Relationship Specialty Start Date End Date Homar Beltran MD [address] [place] [facility] [address] PCP - General Family Medicine 01/20/23 Household Cook Relationship Specialty Start Date End Date Homar Beltran MD [address] [place] [facility] [address] PCP - General Family Medicine 01/20/23 Household Cook Relationship Specialty Start Date End Date Homar Beltran MD [address] [place] [facility] [address] PCP - General Family Medicine 01/20/23 Household Cook Relationship Specialty Start Date End Date Homar Beltran MD [address] [place] [facility] [address] PCP - General Family Medicine 01/20/23 Household Cook Relationship Specialty Start Date End Date Homar Beltran MD [address] [place] [facility] [address] PCP - General Family Medicine 01/20/23 Household Cook Relationship Specialty Start Date End Date Homar Beltran MD [address] [place] [address] PCP - General [facility] 01/20/23 Household Cook Relationship Specialty Start Date End Date Homar Beltran MD [address] [place] [address] PCP - General Family [facility] 01/20/23 FOR RECORDS PERTAINING TO PATIENTS WHO [...] BE BASED ON THE PRIMARY CLINICAL RECORDS. [facility] Care Team [facility]. provides no warranty or guarantee of the accuracy or completeness of information in this document.
[2025-02-22 12:09] LABS: Age Gdln ACOG Testing Note (.); IGP, rfx Aptima HPV ASCU Note (.)
== END 2025-02-20 15:30 | disposition home or self-care (01) ==
LOC: LAB 15:29
PROVIDERS: PCP Family Medicine; Visit Provider Physician Assistant
DX: Z01.419 Encounter for gynecological examination (general) (routine) without abnormal findings (principal)
CPT/HCPCS: 88175

== ENCOUNTER 2025-06-24 10:55 | Emergency (ER) | payer OTHER, SELFPAY ==
--- OUTSIDE RECORDS SUMMARY | 2024-01-04 10:15 | XMS_ITS ---
Author Organization [facility] in [place] Address [address] [place] [address] Care Team Providers Care Charge Operator Name Role Phone Margarito Lewis Primary Care Provider HOMAR LEWIS Unavailable [phone] REASON FOR VISIT [facility] er fu-seizure Encounters Encounter Location Date Provider Diagnosis [facility] [address] [place] [address] 01/04/2024 HOMAR LEWIS Plan Of Treatment No Information Progress Notes * Leslie OFRD SDOB:1995 (30 yo F)Acc No.[id number]:01/04/2024 UNLOCKED PROGRESS NOTE Progress Note Patient: Leslie CLARKE :?Homar Lewis M.D.:1995???Age:28 Y ???Sex:FemaleDate:01/04/2024hone:[phone]:[address] [place] [phone]:Margarito Lewis Subjective: * Chief Complaints: * 1 . [facility] er fu-seizure. * Medical History: Objective: * Vitals: Assessment: Plan: * Treatment: * * Electronic signature of HOMAR LEWIS MD on 06/24/2025 at 11:13 AM ESTSign off status: PendingVisit Status:?CANC (Cancelled) * Provider: Briana Lewis M.D. Date: 0 01/04/2024 Generated for Printing/Faxing/eTransmitting on:?06/24/2025 11:13 AM EST
[2025-06-24 10:59] VITALS: BP 102/71; PULSE 76; TEMP 36.7; O2SAT 100; BMI 26.6
--- OUTSIDE RECORDS SUMMARY | 2025-06-24 11:14 | XMS_ITS | Clinical Summary ---
Author Organization [facility] Address [address] [place] [address] Care Team Providers Care Maintenance Specialist Name Role Phone Unavailable Primary Care Provider Unavailabl e Allergies No known active allergies Medications No known medications Immunizations ImmunizationAdministration DatesNext DuePPD Test11/13/2021 Social History Tobacco UseTypesPacks/DayYears UsedDateSmoking Tobacco: NeverSmokeless Tobacco: Never Tobacco Cessation:Counseling Given: No CommentsNoSex and Gender InformationValueDate RecordedSex Assigned at BirthNot on fileLegal BijNwtnjo29/21/2021 4:17 PM ESTGender IdentityNot on file Sexual OrientationNot on file Last Filed Vital Signs Vital SignReadingTime TakenCommentsBlood Ugqscscl825/8005 3:15 PM EDT Vmadd11144/22/2022 3:15 PM JLFKxnxfbyxndp61.3 ??C (97.3 ??F)11/24/2021 3:15 PM EDTRespiratory Qppb375911/24/2021 3:15 PM EDTOxygen Tjhtqkzzcr005%11/24/2021 3:15 PM EDTInhaled Oxygen Concentration--Smrcem82.1 kg (159 lb)11/24/2021 3:15 PM EDT Vpvmtv624.1 cm (5' 5 )11/24/2021 3:15 PM EDTBody Mass Index26.46011/24/2021 3:15 PM EDT Plan of Treatment Not on file Medical Devices Not on file Insurance
--- OUTSIDE RECORDS SUMMARY | 2025-06-24 11:14 | XMS_ITS | Clinical Summary ---
Author Organization [facility] Address [address], [address] [place] [address] Care Team Providers Care Lab Technologist Name Role Phone Tong Beltran MD Primary Care Provider [phone] Allergies No known active allergies Medications MedicationSigDispense QuantityRefillsLast FilledStart DateEnd DateStatus ibuprofen (ADVIL;MOTRIN) 800 MG tablet Take 1 tablet by mouth every 8 hours as needed for Pain 30 tablet 02/19/2017Active Social History Tobacco UseTypesPacks/DayYears UsedDateSmoking Tobacco: NeverCommentsNo Sex and Gender InformationValueDate RecordedSex Assigned at BirthNot on file Legal HykUqcdzr06/17/2017 5:57 PM EDTGender IdentityNot on fileSexual OrientationNot on file Last Filed Vital Signs Vital SignReadingTime TakenCommentsBlood Gmalritt310/6208 7:49 PM EDT Soetn484902/19/2017 7:49 PM CRTZlcqtqbzwdf66.1 ??C (98.8 ??F)02/19/2017 6:02 PM EDTRespiratory Lxml7149 7:49 PM EDTOxygen Qpozjdronl35%02/19/2017 7:49 PM EDTInhaled Oxygen Concentration--Caprnr45.5 kg (215 lb)02/19/2017 6:02 PM EDT Oxaobq325.1 cm (5' 5 )02/19/2017 6:02 PM EDTBody Mass Index35.78002/19/2017 6:02 PM EDT Plan of Treatment Not on file Insurance Care Teams Team MemberRelationshipSpecialtyStart DateEnd Date Tong Beltran MD [address] [place] [address] PCP - GeneralFamily Medicine02/19/17
--- OUTSIDE RECORDS SUMMARY | 2025-06-24 11:14 | XMS_ITS | Patient Health Record ---
Author Organization [facility] Address [address] [place] [address] Care Team Providers Care Mechanical Project Manager Name Role Phone TerrieDaisymamie Primary Care Provider [phone] Dr. Pérez Hooper Unavailable [phone] Reason For Referral No Information Medications Medication SIG (Take, Route, Frequency, Duration) Notes Start Date End Date Status Zofran Active Encounters Encounter Location Date Provider Diagnosis [facility] [address] [place] [address] 03/21/2025 Pérez Walters Dental caries on pit and fissure surface penetrating into dentin K02.52 ; Disturbances in tooth eruption K00.6 and Encounter for dental examination and cleaning with abnormal findings Z01.21 Assessments Encounter Date Diagnosis (ICD Code) Assessment Notes Treatment Notes Treatment Clinical Notes Section Notes 03/21/2025 Dental caries on pit and fissure surface penetrating into dentin (ICD-10 - K02.52) 03/21/2025Disturbances in tooth eruption (ICD-10 - K00.6)03/21/2025Encounter for dental examination and cleaning with abnormal findings (ICD-10 - Z01.21) Plan Of Treatment Next Appt Details Provider Name:Pérez Walters, 0 08/16/2025 10:00:00 AM, [address] [place], [address], Provider Name:Pérez Walters, 0 08/23/2025 01:00:00 PM, [address] [place], [address], Insurance Providers Payer Name Payer Address Payer Phone Subscriber Number Group Number Insured Name Patient Relationship to Insured Coverage Start Date Coverage End Date [employer] [place] [employer] [address] [place] [address] [id number] BRAULIO KISHAN Self - patient is the insured 3 3 W[employer] [facility] [address] [place] [address] [id number] BRAULIO KISHAN Self - patient is the insured 3 3 zDental [employer] [place] Medicaid [address] [place] [address] [id number] BRAULIOSAYDA THOMPSONA Self - patient is the insured 3 5 Dental W[employer] [facility] [address] [place] [address] [id number] BRAULIO KISHAN Self - patient is the insured 3 5 Dental [employer] [place] Medicaid [address] [place] [address] [id number] Elder RAMSEYf - patient is the [id number] [facility]rap [facility] [address] [place] [id number], KARASelf - patient is the [id number] 2022
--- OUTSIDE RECORDS SUMMARY | 2025-06-24 11:14 | XMS_ITS | Clinical Summary ---
Author Organization [employer] Address [id number] [address] [place] [address] Care Team Providers Care Chemistry Physics Teacher Name Role Phone Tong Beltran MD Primary Care Provider [phone] Allergies No known active allergies Medications MedicationSigDispense QuantityRefillsLast FilledStart DateEnd DateStatus CEPHalexin (KEFLEX) 500 mg capsule Take 2 capsules (1,000 mg total) by mouth in the morning and 2 capsules (1,000 mg total) before bedtime.08/24/2019Active vit calc,iron,folic ( VITAMIN ORAL) Take by mouth.Active ondansetron (ZOFRAN) 4 mg tablet Take 1 tablet (4 mg total) by mouth every 8 (eight) hours as needed for nausea or vomiting.Active omeprazole (PriLOSEC) 20 mg capsule Take 1 capsule (20 mg total) by mouth in the morning.Active no115/iron/folic acid ( 19 ORAL) Take by mouth.Active aspirin 81 mg Take 1 tablet (81 mg total) by mouth in the morning. 30 tablet 604Active Active Problems ProblemNoted DateDiagnosed DateHistory of pre-eclampsia in prior , currently /26/2020 Assessment & Plan (10/17/2019 2:40 PM EDT): BP = 126/71 Has not started ASA yet...will begin now. Prior with demise and current umgbrtxcl70/26/2020 Assessment & Plan (10/17/2019 2:38 PM EDT): We would recommend this patient receive surveillance in the 3rd trimester. If fetalgrowth is normal, initiation of testing can begin at 28-30 weeks gestation rather than 32 week gestation. Anxiety during wpemivnfb52/26/2020History of uqtkuunhee18/26/2020Cystic fibrosis lygwvln2612/31/2016 Family History Medical HistoryRelationNameCommentsCancerBrotherSeizuresMaternal AuntHeart diseaseMaternal GrandfatherHypothyroidismMaternal GrandmotherSeizuresMaternal UncleBack ProblemsMotherHypothyroidismMotherHypertensionPaternal Aunt HypertensionPaternal UncleCancerSisterthyroid cancerDiabetesSistertype 2 HypothyroidismSisterThyroid cancerSisterRelationNameStatusCommentsBrother Maternal AuntMaternal GrandfatherMaternal GrandmotherMaternal UncleMother Paternal AuntPaternal UncleSister Social History Tobacco UseTypesPacks/DayYears UsedDateSmoking Tobacco: FormerCigarettes Smokeless Tobacco: Never Tobacco Cessation:Counseling Given: Not Answered Alcohol UseStandard Drinks/WeekCommentsNo0 (1 standard drink = 0.6 oz pure alcohol)ChildcareAnswerDate RcwafrabPcbfdnmmzYvsuqce65/12/2019EmploymentAnswer Date DaskxdyiRqekswywosMbrwzzv62/12/2019Hunger ScreeningAnswerDate Recorded Within the past 12 months we worried whether our food would run out before we got money to buy more.Never True03/23/2024Within the past 12 months the food we bought just didn't last and we didn't have money to get more.Never True 4Purpose - LifeAnswerDate RecordedPurpose and direction in lifeUnknown 1CommentsNoSex and Gender InformationValueDate RecordedSex Assigned at BirthNot on fileLegal UjaYwonxk65/06/2015 12:05 PM EDTGender IdentityNot on fileSexual OrientationNot on file Last Filed Vital Signs Vital SignReadingTime TakenCommentsBlood Vuahqiht484/5609 9:32 AM EDT Nsqql450603/23/2024 9:32 AM SDIRsehslvgdsa94.7 ??C (98.1 ??F)08/10/2021 8:33 AM ESTRespiratory Zxlg3328/11/2021 8:33 AM ESTOxygen Rckggdnhwn37%08/10/2021 8:33 AM ESTInhaled Oxygen Concentration--Nsgddz48.8 kg (175 lb 14.8 oz)03/23/2024 9:32 AM NOUAyspaz988.1 cm (5' 5 )03/23/2024 9:32 AM EDTBody Mass Index29.28 03/23/2024 9:32 AM EDT Plan of Treatment Health MaintenanceDue DateLast DoneCommentsDepression Cfisgmlpx29/13/2008 DTaP,Tdap and Td Vaccines (1 - Tdap)2015COVID-19 Vaccine (3 - season), 06/08/2021Influenza Fzvwxxd62/01/2025Adult BMI Vvhexbbci38Tobacco Rpbrlzmym954Pap Smear Medical Devices Not on file Insurance Care Teams Team MemberRelationshipSpecialtyStart Date Tong Beltran MD PCP - GeneralFamily Medicine08/31/19
--- OUTSIDE RECORDS SUMMARY | 2025-06-24 11:14 | XMS_ITS | Patient Health Record ---
Author Organization [facility] [place] in [place] Address [address] [place] [address] Care Team Providers Care Can Tester Name Role Phone Margarito Beltran Primary Care Provider Allergies No Known Allergies Results Component Value Reference Range Notes US OB BPP w non-stress Reviewed date:08/28/2024 10:05:25 AM Interpretation: Performing Lab: Notes/Report: Source Facility: [place] [address] Ultrasound Report Signed Patient: LESLIE FORD MR#: [id number] : 1995 Acct:[id number] Age/Sex: 29 / F ADM Date: 06/24/24 Loc: FBCO Attending Dr: Katelyn Smith D.O. Ordering Physician: Katelyn Smith D.O. Date of Service: 06/24/24 Procedure(s): US OB BPP w non-stress Accession Number(s): [id number] cc: Katelyn Smith D.O.; Tong Beltran M.D. [place] [address] Patient Name: LESLIE FORD MRN: [id number] date: 1995 Sex: F Assigned Patient Location: [facility] Current Patient Location: [facility] Accession/Order Number: [id number] Exam Date: 06/24/2024 07:20 Report Date: 06/24/2024 08:17 At the request of: KATELYN SMITH Procedure: US OB BPP w non-stress EXAMINATION: US OB BPP w non-stress HISTORY: History of miscarriage Z87.59 COMPARISON: No relevant comparison available. TECHNIQUE: Ultrasound biophysical profile was performed in the radiology department. non-reactive stress testing was performed by nursing staff in the birthing center. FINDINGS: BREATHING MOVEMENTS: 2 GROSS BODY MOVEMENTS: 2 TONE: 2 QUALITATIVE AMNIOTIC FLUID VOLUME: 2 PRESENTATION: CEPHALIC HEART RATE: 131.07 bpm AMNIOTIC FLUID VOLUME: 15.0 cm GESTATIONAL AGE: 33 weeks 3 days US/US OB BPP w non-stress IMPRESSION: Total biophysical profile score: 8 Electronically authenticated by: AKUA MELENDEZ Date: 06/24/2024 08:17 Dictated By: Akua Melendez M.D. Signed By: 08/25/24 1226 DD/ 0817 TD/TT: Refrigeration Manager: US OB amniotic fluid vol Reviewed date:08/28/2024 10:05:25 AM Interpretation: Performing Lab: Notes/Report: Source Facility: [place] [address] Ultrasound Report Signed Patient: LESLIE FORD MR#: [id number] : 1995 Acct:[id number] Age/Sex: 29 / F ADM Date: 06/24/24 Loc: FBCO Attending Dr: Katelyn Smith D.O. Ordering Physician: Katelyn Smith D.O. Date of Service: 06/24/24 Procedure(s): US OB amniotic fluid vol Accession Number(s): [id number] cc: Katelyn Smith D.O.; Tong Beltran M.D. [place] [address] Patient Name: LESLIE FORD MRN: [id number]:[id number] date: 1995 Sex: F Assigned Patient Location: [facility] Current Patient Location: [facility] Accession/Order Number: [id number] Exam Date: 06/24/2024 07:20 Report Date: 06/24/2024 08:18 At the request of: KATELYN SMITH Procedure: US OB amniotic fluid vol EXAMINATION: US OB amniotic fluid vol HISTORY: History of miscarriage Z87.59 COMPARISON: No relevant comparison available. FINDINGS: Amniotic fluid index: 15.0 cm Heart rate: 131 beats minute Cephalic presentation Clinical age: 33 weeks 3 days Clinical SANCHO: 08/09/2024 US/US OB amniotic fluid vol IMPRESSION: Normal amniotic fluid index Electronically authenticated by: AKUA MELENDEZ Date: 06/24/2024 08:18 Dictated By: Akua Melendez M.D. Signed By: 08/25/24 1226 DD/ 7 TD/TT: Refrigeration Manager: US OB BPP w non-stress Reviewed date:07/02/2024 08:50:22 PM Interpretation: Performing Lab: Notes/Report: Source Facility: [place] [address] Ultrasound Report Signed Patient: LESLIE FORD MR#: [id number] : 1995 Acct:[id number] Age/Sex: 29 / F ADM Date: 06/30/24 Loc: [facility] Attending Dr: Katelyn Smith D.O. Ordering Physician: Katelyn Smith D.O. Date of Service: 06/30/24 Procedure(s): US OB BPP w non-stress Accession Number(s): [id number] cc: Katelyn Smith D.O.; Tong Beltran M.D. [place] [address] Patient Name: LESLIE FORD MRN: [id number] date: 1995 Sex: F Assigned Patient Location: [facility] Current Patient Location: Accession/Order Number: [id number] Exam Date: 06/30/2024 08:18 Report Date: 06/30/2024 23:18 At the request of: KATELYN SMITH Procedure: US OB BPP w non-stress EXAMINATION: US OB BPP w non-stress HISTORY:History of miscarriage Z87.59 COMPARISON: Ultrasound OB biophysical 06/24/2024 TECHNIQUE: Ultrasound biophysical profile was performed in the radiology department. BREATHING MOVEMENTS: 2 GROSS BODY MOVEMENTS: 2 TONE: 2 QUALITATIVE AMNIOTIC FLUID VOLUME: 2 PRESENTATION: CEPHALIC HEART RATE: 133.66 bpm AMNIOTIC FLUID VOLUME: 15.29 cm GESTATIONAL AGE: 34 weeks 2 days US/US OB BPP w non-stress IMPRESSION: Total biophysical profile score: 8 Electronically authenticated by: MARCO CAMPOS Date: 06/30/2024 23:18 Dictated By: Marco Campos M.D. Signed By: 06/30/242320 DD/ 17 TD/TT: Refrigeration Manager: LAB TESTING Reviewed date:07/24/2024 02:34:56 PM Interpretation: Performing Lab: Notes/Report: GROUP B STREP [id number] Group B Streptococcus Colonization Detection Culture With Re [facility] , Miscellaneous Test COMMENT . Test Ordered: [id number] Strep Gp B Culture+Rflx Strep Gp B Culture+Rflx Negative CB Reference Range: Negative Centers for Disease Control and Prevention (CDC) and [employer] Congress of Obstetricians and Gynecologists (ACOG) guidelines [...] resistance to clindamycin is noted. Performed at: - [facility] [address] [id number] Health Care Facility Administrator: Agustín Hernandez PhD, Phone: [phone] Performing Lab: see note - [facility] LBUS OB BPP w non-stress Reviewed date:08/24/2024 07:11:06 PM Interpretation: Performing Lab: Notes/Report: Source Facility: [place] [address] [place] [address] Ultrasound Report Signed Patient: LESLIE FORD MR#: [id number] : 1995 Acct:[id number] Age/Sex: 29 / F ADM Date: 07/22/24 Loc: [facility] 250-[address]: Katelyn Smith D.O. Ordering Physician: Katelyn Smith D.O. Date of Service: 07/22/24 Procedure(s): US OB BPP w non-stress Accession Number(s): [id number] cc: Katelyn Smith D.O.; Tong Beltran M.D. [place] [address] Patient Name: LESLIE FORD MRN: [id number] date: 1995 Sex: F Assigned Patient Location: [facility] Current Patient Location: [facility] Accession/Order Number: [id number] Exam Date: 07/22/2024 14:15 Report Date: 07/22/2024 14:54 At the request of: KATELYN SMITH Procedure: US OB BPP w non-stress EXAMINATION: US OB BPP w non-stress HISTORY:History of miscarriage COMPARISON: Ultrasound OB biophysical 07/14/2024 TECHNIQUE: Ultrasound biophysical profile was performed in the radiology department. BREATHING MOVEMENTS: 2 GROSS BODY MOVEMENTS: 2 TONE: 2 QUALITATIVE AMNIOTIC FLUID VOLUME: 2 PRESENTATION: CEPHALIC HEART RATE: 169.81 bpm AMNIOTIC FLUID VOLUME: 17.44 cm GESTATIONAL AGE: 37 weeks 3 days US/US OB BPP w non-stress IMPRESSION: Total biophysical profile score: 8 Electronically authenticated by: MARCO CAMPOS Date: 07/22/2024 14:54 Dictated By: Marco Campos M.D. Signed By: 07/22/24 1456 DD/ 1454 TD/TT: Refrigeration Manager:US OB amniotic fluid vol Reviewed date:08/24/2024 07:11:06 PM Interpretation: Performing Lab: Notes/Report: Source Facility: [address] [place] [address] Ultrasound Report Signed Patient: LESLIE FORD MR#: [id number] : 1995 Acct:[id number] Age/Sex: 29 / F ADM Date: 07/22/24 Loc: [facility] Attending Dr: Katelyn Smith D.O. Ordering Physician: Katelyn Smith D.O. Date of Service: 07/22/24 Procedure(s): US OB amniotic fluid vol Accession Number(s): [id number] cc: Katelyn Smith D.O.; Tong Beltran M.D. [place] [address] Patient Name: LESLIE FORD MRN: [id number] date: 1995 Sex: F Assigned Patient Location: [facility] Current Patient Location: Accession/Order Number: [id number] Exam Date: 07/22/2024 14:15 Report Date: 07/22/2024 16:24 At the request of: KATELYN SMITH Procedure: US OB amniotic fluid vol EXAMINATION: US OB amniotic fluid vol HISTORY: History of miscarriage Z87.59 COMPARISON: Ultrasound OB growth 07/14/2024 TECHNIQUE: Limited sonographic examination for amniotic fluid volume FINDINGS: Presentation: Cephalic Amniotic fluid: 17.4 cm; normal range Heart rate: 170 bpm GA: 37 weeks 3 days SANCHO: 08/09/2024 US/US OB amniotic fluid vol IMPRESSION: 1. Single live intrauterine . 2. Normal amniotic fluid volume, not significantly changed. Electronically authenticated by: MARCO CAMPOS Date: 07/22/2024 16:24 Dictated By: Marco Campos M.D. Signed By: 07/22/24 1626 DD/ 23 TD/TT: Refrigeration Manager:US OB BPP w non-stress Reviewed date:08/24/2024 07:11:06 PM Interpretation: Performing Lab: Notes/Report: Source Facility: [place] [address] [place] [address] Ultrasound Report Signed Patient: LESLIE FORD MR#: [id number] : 1995 Acct:[id number] Age/Sex: 29 / F ADM Date: 07/28/24 Loc: FBCO Attending Dr: Katelyn Smith D.O. Ordering Physician: Katelyn Smith D.O. Date of Service: 07/28/24 Procedure(s): US OB BPP w non-stress Accession Number(s): [id number] cc: Katelyn Smith D.O.; Tong Beltran M.D. [address] [id number] Patient Name: LSELIE FORD MRN: [facility]:[id number] date: 1995 Sex: F Assigned Patient Location: [facility] Current Patient Location: [facility] Accession/Order Number: [id number] Exam Date: 07/28/2024 09:03 Report Date: 07/28/2024 09:34 At the request of: KATELYN SMITH Procedure: US OB BPP w non-stress EXAMINATION: US OB BPP w non-stress, US OB amniotic fluid vol HISTORY: History of miscarriage COMPARISON: No relevant comparison available. FINDINGS: EXAMINATION: US OB BPP w non-stress, US OB amniotic fluid vol HISTORY: History of miscarriage COMPARISON: No relevant comparison available. FINDINGS: BREATHING MOVEMENTS: 2/2 GROSS BODY MOVEMENTS: 2/2 TONE: 2/2 QUALITATIVE AMNIOTIC FLUID VOL.: 2/2 HEART RATE: Not obtained AMNIOTIC FLUID VOLUME: 18.4 cm. (Between 5th and 95th percentile.) position: Cephalic US/US OB BPP w non-stress IMPRESSION: Total biophysical profile score 8/8. Amniotic fluid volume 18.4 cm, normal Electronically authenticated by: AKUA MELENDEZ Date: 07/28/2024 09:34 Dictated By: Akua Melendez M.D. Signed By: 07/28/24 0937 DD/ TD/TT: Refrigeration Manager:US OB amniotic fluid vol Reviewed date:08/24/2024 07:11:06 PM Interpretation: Performing Lab: Notes/Report: Source Facility: [place] [address] Ultrasound Report Signed Patient: LESLIE FORD MR#: [id number] : 1995 Acct:[id number] Age/Sex: 29 / F ADM Date: 07/28/24 Loc: FBCO Attending Dr: Katelyn Smith D.O. Ordering Physician: Katelyn mSith D.O. Date of Service: 07/28/24 Procedure(s): US OB amniotic fluid vol Accession Number(s): [id number] cc: Katelyn Smith D.O.; Tong Beltran M.D. [place] [address] Patient Name: LESLIE FORD MRN: [id number] date: 1995 Sex: F Assigned Patient Location: [facility] Current Patient Location: [facility] Accession/Order Number: [id number] Exam Date: 07/28/2024 09:03 Report Date: 07/28/2024 09:34 At the request of: KATELYN SMITH Procedure: US OB amniotic fluid vol EXAMINATION: US OB BPP w non-stress, US OB amniotic fluid vol HISTORY: History of miscarriage COMPARISON: No relevant comparison available. FINDINGS: EXAMINATION: US OB BPP w non-stress, US OB amniotic fluid vol HISTORY: History of miscarriage COMPARISON: No relevant comparison available. FINDINGS: BREATHING MOVEMENTS: 2/2 GROSS BODY MOVEMENTS: 2/2 TONE: 2/2 QUALITATIVE AMNIOTIC FLUID VOL.: 2/2 HEART RATE: Not obtained AMNIOTIC FLUID VOLUME: 18.4 cm. (Between 5th and 95th percentile.) position: Cephalic US/US OB amniotic fluid vol IMPRESSION: Total biophysical profile score 8/8. Amniotic fluid volume 18.4 cm, normal Electronically authenticated by: AKUA MELENDEZ Date: 07/28/2024 09:34 Dictated By: Akua Melendez M.D. Signed By: 07/28/2437 DD/ TD/TT: Refrigeration Manager:Type and Screen Reviewed date:08/03/2024 08:56:07 PM Interpretation: Performing Lab: Notes/Report: [facility] ,Blood TypeA PositiveAntibody ScreenNEGATIVEURINE MICROSCOPIC ONLY Reviewed date:08/06/2024 04:34:25 PM Interpretation: Performing Lab: Notes/Report: [facility] ,WBC Urine2-5NONE SEEN #/HPFRBC Hdigv50-141-6 #/HPFBacteria UrineTRACENONE SEEN #/HPFMucus UrineSMALLNONE SEENSquamous Epithelial Cell UrineMODERATENONE/RARE #/LPFCrystals Seen?SeenNone Seen #/HPFAmorphous Sediment UrineMODERATECast Seen? SEENNONE SEEN #/LPFFine Granular Casts UrineRAREUrine Culture IndicatedNO Performing Lab:see noteML - [facility] LBIGP,Aptima HPV,Age Gdln Reviewed date:02/22/2025 01:01:00 PM Interpretation: Performing Lab: Notes/Report: BRUSH-SPATULA CERVIX ENDOCERVIX [facility] ,Age Gdln ACOG TestingNote. TESTS RESULT FLAG UNITS REF RANGE LAB Clinician Provided Cytology Information Source.............Cervix;Endocervix No. of containers..01 ThinPrep Vial Age Algo ACOG Angela... -03 08 FLAG LEGEND: L-Low Normal,H-High Normal,LL-Alert Low,HH-Alert High <-Panic Low,>-Panic High,A-Abnormal,AA-Critical Abnormal Performed at: 01 =G [facility] [address] [place] [address] Carri Orantes MD, IGP, rfx Aptima HPV ASCUNote. TESTS RESULT FLAG UNITS REF RANGE LAB DIAGNOSIS: 02 NEGATIVE FOR INTRAEPITHELIAL LESION OR MALIGNANCY. Specimen adequacy: 02 Satisfactory for evaluation. Endocervical and/or squamous metaplastic cells (endocervical component) are present. Performed by: 02 Kimberly Orlando, Manager Relationship ([facility]) . 02 Note: Note 02 The Pap smear is a screening test designed to aid in the detection of premalignant and malignant conditions of the uterine cervix. It is not a diagnostic procedure and should not be used as the sole means of detecting cervical cancer. Both false-positive and false-negative reports do occur. Test Methodology: Note 02 This liquid based ThinPrep(R) pap test was screened with the use of an image guided system. . 02 The HPV DNA reflex criteria were not met with this specimen result therefore, no HPV testing was performed. FLAG LEGEND: L-Low Normal,H-High Normal,LL-Alert Low,HH-Alert High <-Panic Low,>-Panic High,A-Abnormal,AA-Critical Abnormal Performed at: 02 WB [facility] [address] [place] [address] Carri Orantes MD, Performed at: =G - [address] [id number] Health Care Facility Administrator: Carri Orantes MD, Phone: [phone] Performed at: [address] [id number] Health Care Facility Administrator: Carri Orantes MD, Phone: [phone] Performing Lab:see note - [facility] LBCannabinoid Conf, MS, UR Reviewed date:08/07/2024 04:31:25 PM Interpretation: Performing Lab: Notes/Report: [facility] ,CannabinoidPositive.Carboxy THC Conf, MS, OA976Ukwlxb=88 ng/mL Performed at: [facility] [place], [place] [id number] Health Care Facility Administrator: Tevin Atkins PhD, Phone: [phone] Performing Lab:see note - [facility] LBCBC no Diff (Hemogram) Reviewed date:08/03/2024 08:56:07 PM Interpretation: Performing Lab: Notes/Report: [facility] ,White Blood Count17.94.0-11.0 10 3/uLRed Blood Count4.294.20-5.40 10 6/uL Czjvvhsvia50.012.0-16.0 g/lFPgyjkyqgoj13.836.0-48.0 %Mean Corpuscular Ljjwzr65.8 81.0-99.0 fLMean Corpuscular Prvmoacfkq97.626.7-34.0 pgMean Corpuscular HGB Conc 32.529.9-35.2 g/dLRed Cell Distribution Width14.911.0-15.0 %Platelet Txnjx260 150-450 10 3/uLMean Platelet Cnwxpt95.69.5-13.5 fLPerforming Lab:see note - [facility] LBDRUG SCREEN RAPID (URINE) Reviewed date:08/03/2024 08:56:07 PM Interpretation: Performing Lab: Notes/Report: [facility] ,Cannabinoid Screen UrinePOSITIVENEGATIVEPhencyclidine Screen UrineNEGATIVE NEGATIVECocaine Screen UrineNEGATIVENEGATIVEMethamphetamines Screen Urine NEGATIVENEGATIVEOpiate Screen UrineNEGATIVENEGATIVEAmphetamine Screen Urine NEGATIVENEGATIVEBenzodiazepines Screen UrineNEGATIVENEGATIVETricyclic Antidepressant UrineNEGATIVENEGATIVEMethadone Screen UrineNEGATIVENEGATIVE Barbiturates Screen UrineNEGATIVENEGATIVEOxycodone Screen UrineNEGATIVENEGATIVE Buprenorphine Screen UrineNEGATIVENEGATIVE DRUG CLASS TEST SYSTEM CUT-OFF CONCENTRATIONS ARE FOLLOWS: AMP (Amphetamine): 500 ng/mL BAR (Barbiturates): 200 ng/mL BZO (Benzodiazepines): 150 ng/mL BUP (Buprenorphine): 10 ng/mL EFREN (Cocaine): 150 ng/mL mAMP (Methamphetamine): 500 ng/mL MTD (Methadone): 200 ng/mL OPI (Opiates): 100 ng/mL OXY (Oxycodone): 100 ng/mL PCP (Phencyclidine): 25 ng/mL THC (Cannabinoids): 50 ng/mL TCA (Trycyclic Antidepressants): 300 ng/mL Performing Lab:see noteML - [facility] LBUS OB growth Reviewed date:08/24/2024 07:11:06 PM Interpretation: Performing Lab: Notes/Report: Source Facility: [place] [address] Ultrasound Report Signed Patient: LESLIE FORD MR#: [id number] : 1995 Acct:[id number] Age/Sex: 29 / F ADM Date: 07/14/24 Loc: FBCO Attending Dr: Katelyn Smith D.O. Ordering Physician: Katelyn Smith D.O. Date of Service: 07/14/24 Procedure(s): US OB growth Accession Number(s): [id number] cc: Katelyn Smith D.O.; Tong Beltran M.D. [place] [address] Patient Name: LESLIE FORD MRN: [id number] date: 1995 Sex: F Assigned Patient Location: [facility] Current Patient Location: [facility] Accession/Order Number: [id number] Exam Date: 07/14/2024 09:20 Report Date: 07/14/2024 10:25 At the request of: KATELYN SMITH Procedure: US OB growth EXAMINATION: US OB growth HISTORY: HISTORY OF MISCARRIAGE Z87.59 COMPARISON: No relevant comparison available. FINDINGS: Heart Rate: 150.84 bpm Amniotic Fluid Volume: 18.7 cm, largest fluid pocket 6.4 cm Number: 1 Position: Cephalic presentation, longitudinal lie BIOMETRY: BPD: 9.15 cm; 37 weeks 1 day; 81.40 % HC: 34.29 cm; 39 weeks 4 days; 90.90 % AC: 33.73 cm; 37 weeks 4 days; 90.40 % FL: 7.15 cm; 36 weeks 4 days; 55.80 % EFW: 3241.62 g; 84.20 %, 7 lbs. 2 oz. FL/AC: 21.20 FL/BPD: 78.15 HC/AC: 1.02 GESTATIONAL AGE: Age by EDC: 36 weeks 2 days SANCHO by EDC: 2024-08-09 Age by US: 37 weeks 5 days SANCHO by US: 2024-07-30 US/US OB growth IMPRESSION: Normal interval growth Electronically authenticated by: AKUA MELENDEZ Date: 07/14/2024 10:25 Dictated By: Akua Melendez M.D. Signed By: 07/14/24 1028 DD/ 1025 TD/TT: Refrigeration Manager:US OB BPP w non-stress Reviewed date:08/24/2024 07:11:06 PM Interpretation: Performing Lab: Notes/Report: Source Facility: [place] [address] [place] [address] Ultrasound Report Signed Patient: LESLIE FORD MR#: [id number] : 1995 Acct:[id number] Age/Sex: 29 / F ADM Date: 07/14/24 Loc: FBCO Attending Dr: Katelyn Smith D.O. Ordering Physician: Katelyn Smith D.O. Date of Service: 07/14/24 Procedure(s): US OB BPP w non-stress Accession Number(s): [id number] cc: Katelyn Smith D.O.; Tong Beltran M.D. [place] [address] Patient Name: LESLIE FORD MRN: [id number] date: 1995 Sex: F Assigned Patient Location: [facility] Current Patient Location: Accession/Order Number: [id number] Exam Date: 07/14/2024 09:20 Report Date: 07/14/2024 10:15 At the request of: KATELYN SMITH Procedure: US OB BPP w non-stress EXAMINATION: US OB BPP w non-stress HISTORY: HISTORY OF MISCARRIAGE Z87.59 COMPARISON: No relevant comparison available. TECHNIQUE: Ultrasound biophysical profile was performed in the radiology department. non-reactive stress testing was performed by nursing staff in the birthing center. FINDINGS: BREATHING MOVEMENTS: 2 GROSS BODY MOVEMENTS: 2 TONE: 2 QUALITATIVE AMNIOTIC FLUID VOLUME: 2 PRESENTATION: CEPHALIC HEART RATE: 150.84 bpm AMNIOTIC FLUID VOLUME: 18.7 cm GESTATIONAL AGE: 36 weeks 2 days US/US OB BPP w non-stress IMPRESSION: Total biophysical profile score: 8 Electronically authenticated by: AKUA MELENDEZ Date: 07/14/2024 10:15 Dictated By: Akua Melendez M.D. Signed By: 07/14/24 1018 DD/ 1015 TD/TT: Refrigeration Manager:US OB BPP w non-stress Reviewed date:07/10/2024 08:15:12 PM Interpretation: Performing Lab: Notes/Report: Source Facility: [place] [address] [place] [address] Ultrasound Report Signed Patient: LESLIE FORD MR#: [id number] : 1995 Acct:[id number] Age/Sex: 29 / F ADM Date: 07/07/24 Loc: FBCO Attending Dr: Katelyn Smith D.O. Ordering Physician: Katelyn Smith D.O. Date of Service: 07/07/24 Procedure(s): US OB BPP w non-stress Accession Number(s): [id number] cc: Katelyn Smith D.O.; Tong Beltran M.D. [place] [id number] Patient Name: LESLIE FORD MRN: [id number] date: 1995 Sex: F Assigned Patient Location: [facility] Current Patient Location: Accession/Order Number: [id number] Exam Date: 07/07/2024 09:20 Report Date: 07/07/2024 10:14 At the request of: KATELYN SMITH Procedure: US OB BPP w non-stress EXAMINATION: US OB BPP w non-stress HISTORY: History of miscarriage COMPARISON: No relevant comparison available. TECHNIQUE: Ultrasound biophysical profile was performed in the radiology department. non-reactive stress testing was performed by nursing staff in the birthing center. FINDINGS: BREATHING MOVEMENTS: 2 GROSS BODY MOVEMENTS: 2 TONE: 2 QUALITATIVE AMNIOTIC FLUID VOLUME: 2 PRESENTATION: CEPHALIC HEART RATE: 152.54 bpm AMNIOTIC FLUID VOLUME: 17.3 cm GESTATIONAL AGE: 35 weeks 2 days US/US OB BPP w non-stress IMPRESSION: Total biophysical profile score: 8 Electronically authenticated by: AKUA MELENDEZ Date: 07/07/2024 10:14 Dictated By: Akua Melendez M.D. Signed By: 07/07/24 1017 DD/ 1014 TD/TT: Refrigeration Manager:GLYCOHEMOGLOBIN A1C Reviewed date:07/04/2024 08:32:39 PM Interpretation: Performing Lab: Notes/Report: [facility] ,Glycohemoglobin A1C5.44.5-6.2 % ADA RECOMMENDED LIMIT 4.0 - 6.0 ADA THERAPEUTIC TARGET < 7.0 ACTION SUGGESTED > 7.0 Estimated Average Yuzlmfz451Grqriumhlu Lab:see noteML - [facility] LB CBC AUTO DIFF Reviewed date:07/04/2024 08:32:39 PM Interpretation: Performing Lab: Notes/Report: [facility] ,White Blood Count16.34.0-11.0 10 3/uLRed Blood Count4.254.20-5.40 10 6/uL Wqfarciuyg02.112.0-16.0 g/pUAojriswycu62.636.0-48.0 %Mean Corpuscular Bverpo11.4 81.0-99.0 fLMean Corpuscular Ukwnhpiqvj84.126.7-34.0 pgMean Corpuscular HGB Conc 32.129.9-35.2 g/dLRed Cell Distribution Width13.311.0-15.0 %Platelet Nkjwo795 150-450 10 3/uLMean Platelet Volume9.79.5-13.5 fLNeutrophils Percent Auto71.1 43.0-75.0 %Lymphocytes Percent Auto18.220.5-60.0 %Monocytes Percent Auto7.71.7- 12.0 %Eosinophils Percent Auto1.20.9-7.0 %Basophils Percent Auto0.50.2-2.0 % Immature Granulocytes Pct Auto1.30.0-0.5 %Neutrophils Absolute Auto11.61.4-6.5 10 3/uLLymphocytes Absolute Auto3.01.2-3.8 10 3/uLMonocytes Absolute Auto1.30.3- 0.8 10 3/uLEosinophils Absolute Auto0.20.0-0.7 10 3/uLBasophils Absolute Auto0.1 0.0-0.1 10 3/uLImmature Granulocytes Abs Auto0.220.00-0.03 10 3/uLPerforming Lab:see noteML - [facility] LBUA (CLEAN or CATCH) TELECOMMUNICATOR or MICRO IF IND. Reviewed date:08/06/2024 04:34:25 PM Interpretation: Performing Lab: Notes/Report: [facility] ,Color UrineLT. YELLOWYELLOWClarity UrineCLEARCLEARSpecific [place] Urine1.015 1.005-1.025pH Urine7.05.0-9.0Protein UrineNEGATIVENEG/TRACE mg/dLGlucose Urine UANEGATIVENEGATIVE mg/dLBilirubin UrineNEGATIVENEGATIVEKetones UrineNEGATIVE NEGATIVE mg/dLBlood UrineMODERATENEGATIVENitrite UrineNEGATIVENEGATIVE Urobilinogen Urine0.20.2-1.0 EU/dLLeukocyte Esterase UrineTRACENEGATIVEUrine Microscopic IndicatedYESPerforming Lab:see noteML - [facility] LBCBC AUTO DIFF Reviewed date:08/04/2024 10:03:56 PM Interpretation: Performing Lab: Notes/Report: [facility] ,White Blood Count18.14.0-11.0 10 3/uLRed Blood Count3.794.20-5.40 10 6/uL Hemoglobin9.512.0-16.0 g/aUVtusdpsgys73.136.0-48.0 %Mean Corpuscular Ssxqbm27.4 81.0-99.0 fLMean Corpuscular Apvomqyyyx28.126.7-34.0 pgMean Corpuscular HGB Conc 31.629.9-35.2 g/dLRed Cell Distribution Width15.011.0-15.0 %Platelet Eggib291 150-450 10 3/uLMean Platelet Bbwrtr76.09.5-13.5 fLNeutrophils Percent Auto78.4 43.0-75.0 %Lymphocytes Percent Auto12.320.5-60.0 %Monocytes Percent Auto6.51.7- 12.0 %Eosinophils Percent Auto1.20.9-7.0 %Basophils Percent Auto0.40.2-2.0 % Immature Granulocytes Pct Auto1.20.0-0.5 %Neutrophils Absolute Auto14.21.4-6.5 10 3/uLLymphocytes Absolute Auto2.21.2-3.8 10 3/uLMonocytes Absolute Auto1.20.3- 0.8 10 3/uLEosinophils Absolute Auto0.20.0-0.7 10 3/uLBasophils Absolute Auto0.1 0.0-0.1 10 3/uLImmature Granulocytes Abs Auto0.220.00-0.03 10 3/uLPerforming Lab:see noteML - [facility] Reason For Referral No Information Medications Medication SIG (Take, Route, Frequency, Duration) Notes Start Date End Date Status Amoxicillin-Pot Clavulanate 875-125 MG 1 tablet Orally every 12 hrs; Duration: 10 days 5ActiveHyoscyamine Sulfate 0.125 MG1-2 tabs SL SL every 4 hrs PRN abd slovJZB95/27/2025ActiveOndansetron 4 MG1 tablet on the tongue and allow to dissolve Orally qid; Duration: 5 dqlkNCK64/11/2025Active Social History Tobacco Use: Social History Observation Description Date Details (start date - stop date) Never Smoker NA - NA Tobacco Use/Smoking Question Answer Notes Patient is a nonsmoker Alcohol Screen (Audit-C) Question Answer Notes Did you have a drink containing alcohol in the p ast year? Yes How often did you have 6 or more drinks on one occasion in the past year?Monthly or less (1 point)How many drinks did you have on a typical day when you were drinking in the past year?1 or 2 drinks (0 point)How often did you have a drink containing alcohol in the past year?Less than monthly (1 point)Points2 InterpretationNegativeAUDIT-C (Standard) Question Answer Notes Did you have a drink containing alcohol in the p ast year? No Xhsslr8BjzghmkptnbrquBnxwhggd Problems Problem Type SNOMED Code ICD Code Onset Dates Problem Status W/U Status Risk Notes Problem Syncope and collapse (376605482) Syncope and collapse (R55) ActiveconfirmedProblemObesity (064321808)Obesity, unspecified (E66.9)Active confirmedProblemChronic pain (21108093)Other chronic pain (G89.29)Active confirmedProblemAcute frontal sinusitis (68397797)Acute recurrent frontal sinusitis (J01.11)ActiveconfirmedProblemNasal congestion (37537645)Nasal congestion (R09.81)ActiveconfirmedProblemDysphagia (12861473)Other dysphagia (R13.19)ActiveconfirmedProblemJaw pain (287580119)Jaw pain (R68.84)Active confirmedProblemFatigue (10662606)Fatigue (R53.83)ActiveconfirmedProblemAcne (50588542)Acne (L70.9)ActiveconfirmedProblemMigraine variant with headache (disorder) (419129556)Migraine headache (G43.909)ActiveconfirmedProblemObesity (343244522)Obesity (E66.9)ActiveconfirmedProblemAnxiety (86023330)Anxiety (F41.9)ActiveconfirmedProblemNeck pain (79652254)Neck pain (M54.2)Active confirmedProblemInsomnia (834540913)Insomnia (G47.00)ActiveconfirmedProblem Syncope (361028698)Syncope (R55)ActiveconfirmedProblemIrritable bowel syndrome (05661752)IBS (irritable bowel syndrome) (K58.9)ActiveconfirmedProblemChronic fatigue syndrome (28614890)Chronic fatigue (R53.82)ActiveconfirmedProblem Hypersomnia (41762991)Hypersomnia (G47.10)ActiveconfirmedProblemDiarrhea (53057284)Diarrhea (R19.7)ActiveconfirmedProblemAllergic conjunctivitis (009765218)Allergic conjunctivitis (H10.10)ActiveconfirmedProblemPain of left knee region (finding) (360812219101517)Knee pain, left (M25.562)Activeconfirmed ProblemTinea pedis (2012584)Tinea pedis (B35.3)ActiveconfirmedProblemOverweight (274821772)Over weight (E66.3)ActiveconfirmedProblemLeft lower quadrant pain (839470244)Abdominal pain, LLQ (R10.32)ActiveconfirmedProblemPrimary focal hyperhidrosis (283439631)Hyperhydrosis disorder (L74.519)ActiveconfirmedProblem Dysfunctional uterine bleeding (20591580604151)Dysfunctional uterine bleeding (N93.8)ActiveconfirmedProblemLeft upper quadrant pain (445676206)Abdominal pain, LUQ (R10.12)ActiveconfirmedProblemAcute sinusitis (47926220)Acute non-recurrent sinusitis, unspecified location (J01.90)ActiveconfirmedProblemDysmenorrhea (936703395)Dysmenorrhea (N94.6)ActiveconfirmedProblemBody mass index 35.00 to 39.99 (546033438846412)Body mass index [BMI] 39.0-39.9, adult (Z68.39)Active confirmedProblemLow back pain (352346308)Low back pain, unspecified (M54.50) Activeconfirmed Vital Signs Temperature 98.4 degrees Fahrenheit 03/08/2025 Blood pressure alysoyxhk14 mm Hg03/08/20254889Drjghk78 in03/08/2025lood pressure xamafvdb707 mm Hg03/08/20258068Luwgul919 lbs03/08/2025BMI28.95 kg/m203/08/2025 Encounters Encounter Location Date Provider Diagnosis [facility] [address] [place] [address] 11/07/2024 Margarito Hoy Acute non-recurrent sinusitis, unspecified location J01.90 and Nasal congestion R09.81 [facility] [address] [place] [address] 09/01/2024 Margarito Hoy IBS (irritable bowel syndrome) K58.9 [facility] [address] [place] [address] 09/29/2024 Margarito Hoy Neck pain M54.2 [facility] [address] [facility] [place] [address] 10/28/2024 Margarito Hoy Allergic conjunctivi tis H10.10 [place] [address] [place] [address] 11/29/2024 Margarito Hoy Over weight E66.3 an d Knee pain, left M25.562 [facility] [address] [place] [address] 03/08/2025 Margarito Hoy Acute non-recurrent sinusitis, unspecified location J01.90 and Nasal congestion R09.81 [facility] [address] [place] [address] 08/09/[address] [facility] [facility] [place] [address] 08/[facility] [facility] [place] [address]/20/2025Doug Hoy Assessments Encounter Date Diagnosis (ICD Code) Assessment Notes Treatment Notes Treatment Clinical Notes Section Notes 09/01/2024 IBS (irritable bowel syndrome) ( ICD-10 - K58.9) 09/29/2024Neck pain (ICD-10 - M54.2)10/28/2024llergic conjunctivitis (ICD-10 - H10.10)11/29/2024Over weight (ICD-10 - E66.3)5Knee pain, left (ICD-10 - M25.562)5Acute non-recurrent sinusitis, unspecified location (ICD-10 - J01.90)Rest and drink more liquids, especially water. You may use a humidifier or vaporizer to help keep the drainage moist. Egya-voa-hbjcmol Nasal Saline may help the stuffy and runny nose. Use Ibuprofen and or Tylenol as needed for fever, chills, body aches or pain. Children 5 years old should not be given vyoj-xlr-kspkrzl cough and cold medications such as guaifenesin and dextromethorphan. If you're over age 5, you may try jmzs-npi-lewyfjm cold medications such as guaifenesin and dextromethorphan, or multi-symptom cold reliever such as Dayquil to help reduce the symptoms. Antibiotics have been pre scribed. You should take these until completed and follow the directions. Antibiotics can sometimescause upset stomach, and in rare cases, serious allergic reactions or serious gastrointestinal problems. If you start having severe abdominal pain, severe vomiting, or bloody diarrhea, you should be r eevaluated by your physician or urgent care immediately. Follow up with your Primary Care Provider or return to clinic if symptoms do not improve within 3-5 days5Acute non-recurrent sinusitis, unspecified location (ICD-10 - J01.90)Rest and drink more liquids, especially water. You may use a humidifier or vaporizer to help keep the drainage moist. Nutt-sgh-fgwcapc Nasal Saline may help the stuffy and runny nose. Use Ibuprofen and or Tylenol as needed for fever, chills, body aches or pain. Children 5 years old should not be given yuls-aqp-wlcbwca cough and cold medications such as guaifenesin and dextromethorphan. If you're over age 5, you may try urnr-cjw-inrcrnm cold medications such as guaifenesin and dextromethorphan, or multi-symptom cold reliever such as Dayquil to help reduce the symptoms. Antibiotics have been pre scribed. You should take these until completed and follow the directions. Antibiotics can sometimescause upset stomach, and in rare cases, serious allergic reactions or serious gastrointestinal problems. If you start having severe abdominal pain, severe vomiting, or bloody diarrhea, you should be r eevaluated by your physician or urgent care immediately. Follow up with your Primary Care Provider or return to clinic if symptoms do not improve within 3-5 days03/08/2025Nasal congestion (ICD-10 - R09.81)11/07/2024Nasal congestion (ICD- 10 - R09.81) Plan Of Treatment Pending Test Test Name Order Date CMP (COMPLETE METABOLIC PANEL) 3 CMP (COMPLETE METABOLIC PANEL) 4 HEMOGLOBIN A1C (GLYCO) 09/09/2023 HEMOGLOBIN A1C (GLYCO) 10/08/2022 IRON, TOTAL 10/08/2022 IRON, TOTAL 09/09/2023 LIPID PANEL (CHOL/TRIG/HDL/LDL) 09/09/19 24 LIPID PANEL (CHOL/TRIG/HDL/LDL) 10/09/19 23 CBC WITH DIFF (EXP 05/2025) 10/08/2022 CBC WITH DIFF (EXP 05/2025) 09/09/2023 XR Cervical Spine (2-3 views) * 01/29/20 23 T3 FREE, T4 FREE and TSH 10/08/2022 B12/FOLATE 07/09/2023 FTI 10/08/2022 Insulin Level 10/08/2022 Insulin Level 09/09/2023 US Lumbar Sacral 01/28/2023 CBC W/AUTO DIFF 07/09/2023 FERRITIN 07/09/2023 IRON 07/09/2023 THYROID PANEL (T4/TSH/FREE T3) 4 Insurance Providers Payer Name Payer Address Payer Phone Subscriber Number Group Number Insured Name Patient Relationship to Insured Coverage Start Date Coverage End Date [employer] [place] [employer] [address] [place] [phone] [id number] Alfredo Ford - patient is the insured Medical (General) History Medical History History ICD Code Other dysphagia R13.19 Low back pain, unspecified M54.50 Anxiety F41.9 Over weight E66.3 Knee pain, left M25.562 Abdominal pain, LLQ R10.32 Abdominal pain, LUQ R10.12 Tinea pedis B35.3 Jaw pain R68.84 Acute recurrent frontal sinusitis J01.11 Diarrhea R19.7 Neck pain M54.2 Insomnia G47.00 Dysmenorrhea N94.6 Migraine headache G43.909 Fatigue R53.83 Hypersomnia G47.10 Hospitalization History Reason Date(Month/Year) childbirth
--- OUTSIDE RECORDS SUMMARY | 2025-06-24 11:14 | XMS_ITS | Clinical Summary ---
Author Organization [facility] Healthcare Address [address] [facility] [place] [address] Care Team Providers Care Product Applications Scientist Name Role Phone Tong Beltran MD Primary Care Provider [phone] Allergies No known active allergies Medications MedicationSigDispense QuantityRefillsLast FilledStart DateEnd DateStatus ondansetron ODT (Zofran-ODT) 4 MG disintegrating tablet Indications:NauseaTake 1 tablet (4 mg) by mouth every 6 (six) hours if needed for nausea or vomiting for up to 30 doses 30 tablet 5Active hyoscyamine (Levsin) 0.125 MG SL tablet Take 0.125 mg by mouth every 4 (four) hours if needed for thnnzsda45/27/2025 Active Active Problems ProblemNoted DateDiagnosed DateHistory of bniwgobrtqm72/04/2024 Resolved Problems ProblemNoted DateDiagnosed DateResolved DateThird trimester ([facility]) weeks gestation of ([facility])07/04/2024 weeks gestation of ([facility]) Family History Medical HistoryRelationNameCommentsCancerBrotherHypothyroidismMotherCancerSister BvvrgcoAilnlkkuHrciciGiheyvjkEwzmZwuhbfGlfaydzdTzqmpjwBubammry5HuwenhVtokon1 Social History Tobacco UseTypesPacks/DayYears UsedDateSmoking Tobacco: FormerCigarettes Tobacco Cessation:Counseling Given: Not Answered Alcohol UseStandard Drinks/WeekCommentsNever0 (1 standard drink = 0.6 oz pure alcohol)CommentsNoSex and Gender InformationValueDate RecordedSex Assigned at AgkrnVfqdnh21/17/2023 11:11 PM EDTLegal UlbBkyqqh65/15/2023 6:47 PM EDTGender TqhuhyhqZwtovu14/17/2023 11:11 PM EDTSexual OrientationNot on file Last Filed Vital Signs Vital SignReadingTime TakenCommentsBlood Zppiwxjf202/8208 11:10 AM EDT Pulse--Temperature--Respiratory Rate--Oxygen Saturation--Inhaled Oxygen Concentration--Nrnrgj83.9 kg (171 lb 12 oz)02/20/2025 11:10 AM FJYKgkrfm060.1 cm (5' 5 )02/20/2025 11:10 AM EDTBody Mass Index28.58002/20/2025 11:10 AM EDT Plan of Treatment DateTypeDepartmentCare Team (Latest Contact Info)Ukrolcwssbz94/20/2026 10:00 AM EDTProcedure Visit [facility] [address] [place] [id number] Berto Smith DO [address] [place], [place] [id number] Health MaintenanceDue DateLast DoneCommentsCOVID-19 Vaccine (2024- season) 5007/09/2021, 06/08/2021Influenza Vaccine (#1)/12/2010 Pneumococcal Vaccine: Pediatrics (0 to 5 Years) and At-Risk Patients (6 to 64 Years)Aged OutNo longer eligible based on patient's age to complete this topic Insurance Care Teams Team MemberRelationshipSpecialtyStart DateEnd Date Tong Beltran MD [address] [place] [address] PCP - GeneralFamily Medicine01/20/23
--- OUTSIDE RECORDS SUMMARY | 2025-06-24 11:14 | XMS_ITS | Clinical Summary ---
Author Organization [facility] Address [address] [place] [address] Care Team Providers Care Trestle Mainternance Laborer Name Role Phone No, Physician Primary Care Provider Unavailabl e Allergies No known active allergies Medications MedicationSigDispense QuantityRefillsLast FilledStart DateEnd DateStatus norethindrone (MICRONOR) 0.35 mg tablet 11/16/2020ctive Active Problems No known active problems Family History Medical HistoryRelationCommentsNo Known ProblemsFatherDiabetesMotherRelation StatusCommentsFatherMother Social History Tobacco UseTypesPacks/DayYears UsedDateSmoking Tobacco: NeverSmokeless Tobacco: NeverAlcohol UseStandard Drinks/WeekCommentsYes0 (1 standard drink = 0.6 oz pure alcohol)occCommentsNoSex and Gender InformationValueDate RecordedSex Assigned at BirthNot on fileLegal PnrHmddky33/02/2021 7:16 PM EDTGender Identity Not on fileSexual OrientationNot on file Last Filed Vital Signs Vital SignReadingTime TakenCommentsBlood Lngsgone067/8606 7:25 PM EDT Pnppy86323/02/2021 7:26 PM URJSdryrftmobz06.8 ??C (98.3 ??F)12/05/2020 7:25 PM EDTRespiratory Vhey1166 7:25 PM EDTOxygen Pisvmankor01%12/05/2020 7:25 PM EDTInhaled Oxygen Concentration--Vznkno58 kg (216 lb)12/05/2020 7:25 PM EDT Height--Body Mass Index-- Plan of Treatment Health MaintenanceDue DateLast DoneCommentsWellness Visit1999Depression Screening/Follow-Up (PHQ-2/9)2008Varicella Vaccines (1 of 2 - 13+ 2-dose series)2009HIV Bhcpoyqvo72/13/2011Hepatitis C Wovobqlon02/13/2014Hepatitis B Vaccines (1 of 3 - 19+ 3-dose series)2015Tetanus/Diphtheria/Pertussis (1 - Tdap)2015Pap Smear2017HPV Vaccines (1 - 3-dose SCDM series) 3COVID-19 Vaccine (1 - 2024- season)2025Influenza Vaccine (#1) 2025Zoster Vaccines (1 of 2)2046RSV Vaccines (1 - 1-dose 75+ series) 2071HIB VaccinesAged OutNo longer eligible based on patient's age to complete this topicHepatitis A VaccinesAged OutNo longer eligible based on patient's age to complete this topicIPV VaccinesAged OutNo longer eligible based on patient's age to complete this topicMeningococcal ACWY VaccineAged OutNo longer eligible based on patient's age to complete this topicMeningococcal B VaccineAged OutNo longer eligible based on patient's age to complete this topic Pneumococcal VaccineAged OutNo longer eligible based on patient's age to complete this topicRotavirus VaccinesAged OutNo longer eligible based on patient's age to complete this topic Insurance * Guarantor: Kaiden Ford TypeRelation to PatientDate of BirthPhone Billing AddressPersonal/LjzcknEpdw1995 [id number] (Home) [address] [place] [address] Care Teams Team MemberRelationshipSpecialtyStart DateEnd Date No, Physician [facility] PCP - General12/05/20
--- NOTE | 2025-06-24 11:16 | ED.GENADUL1 ---
HPI HPI - General Adult General Chief complaint: Urogenital-Female Stated complaint: LOWER BACK PAIN & VAGINAL DISCHARGE Time Seen by Provider: 06/24/25 11:00 History of Present Illness HPI narrative: 30-year-old female presented for lower back pain and vaginal discharge. Her lower back is been hurting for a day or 2 and there was no injury. Today she noticed a green discharge. She has had the same sexual partner for 2 years. She is not concerned about an STD. LMP was 27 days ago. No complaints of abdominal pain. Related Data Previous Rx's ?Medication ?Instructions ?Recorded ibuprofen 800 mg tablet 800 mg PO Q8H PRN Moderate Pain 08/05/24 #60 tabs Allergies Allergy/AdvReac Type Severity Reaction Status Date / Time No Known Drug Allergies Allergy Verified 06/24/25 10:59 Opioid HPI Opioid Management Most Recent Opioid Data: Last Pain Scale 4 Today, 10:59 Urine Cannabinoids, (.) Positive A 08/03/24, 05:40 Ur Phencyclidine Scrn, (NEGATIVE) Negative 08/03/24, 05:40 Review of Systems ROS Narrative A ten point review of systems is negative except as noted above. [facility] Medical History (Updated 06/24/25 @ 12:28 by Chevy Davison MD) Depression ?F32.A - Depression, unspecified (ICD-10) Anxiety ?F41.9 - Anxiety disorder, unspecified (ICD-10) IBS (irritable bowel syndrome) ?K58.9 - Irritable bowel syndrome, unspecified (ICD-10) Cystic fibrosis carrier ?Z14.1 - Cystic fibrosis carrier (ICD-10) Pre-eclampsia ?O14.90 - Unspecified pre-eclampsia, unspecified trimester (ICD-10) Social History Little interest or pleasure in doing things: not at all Feeling down, depressed, or hopeless: not at all Exam Narrative Exam Narrative: Nurses note and vital signs reviewed General:The patient appears well and in no apparent distress.Patient is resting comfortably on cart. Skin:Warm, dry, no pallor noted.There is no rash noted. Head:Normocephalic, atraumatic Eye: Normal conjunctiva, no drainage Ears, Nose, Mouth, and Throat: oral mucosa is moist. Nares patent. Cardiovascular:Regular Rate and Rhythm Respiratory:Patient is in no distress, no accessory muscle use, lungs are clear to auscultation, no wheezing, rales or rhonchi Back:non-tender GI: Soft and nontender Musculoskeletal: The patient has no evidence of calf tenderness, no pitting edema, symmetrical pulses noted bilaterally Neurological:A&O, normal speech Psychiatric:Cooperative Constitutional Vital Signs, click to edit/add: Last Vital Signs Temp 98.1 F 06/24/25 10:59 Pulse 74 06/24/25 12:26 Resp 16 06/24/25 12:26 BP 102/63 06/24/25 12:26 Pulse Ox 99 06/24/25 12:26 O2 Del Method Room Air 06/24/25 10:59 Course Vital Signs Vital signs: Vital Signs Temperature 98.1 F 06/24/25 10:59 Pulse Rate 76 06/24/25 10:59 Respiratory Rate 18 06/24/25 10:59 Blood Pressure 102/71 06/24/25 10:59 Pulse Oximetry 100 06/24/25 10:59 Oxygen Delivery Method Room Air 06/24/25 10:59 Temperature 98.1 F 06/24/25 10:59 Pulse Rate 74 06/24/25 12:26 Respiratory Rate 16 06/24/25 12:26 Blood Pressure 102/63 06/24/25 12:26 Pulse Oximetry 99 06/24/25 12:26 Oxygen Delivery Method Room Air 06/24/25 10:59 Medical Decision Making MDM Narrative Medical decision making narrative: The wet prep today is negative. test is negative and urinalysis is negative. Gonorrhea and Chlamydia test are pending. She does not have high concern for those issues but those tests are pending and she would need to be contacted if they were to be positive. She will follow-up with her reference assistant. Treatment diagnosis and follow-up were discussed with the patient. Differential Diagnosis Differential Diagnosis: BV, trichomonas, yeast infection, chlamydia, GC Lab Data Lab results reviewed: Yes I reviewed the patient's lab results Labs: Lab Results 06/24/25 Range/Units 11:05 Urine Color Yellow (YELLOW) Urine Clarity Clear (CLEAR) Urine pH 5.5 (5.0-9.0) Ur Specific [place] >=1.030 A (1.005-1.025) Urine Protein Negative (NEG/TRACE) mg/dL Urine Glucose (UA) Negative (NEGATIVE) mg/dL Urine Ketones Trace A (NEGATIVE) mg/dL Urine Occult Blood Negative (NEGATIVE) Urine Nitrite Negative (NEGATIVE) Urine Bilirubin Negative (NEGATIVE) Urine Urobilinogen 0.2 (0.2-1.0) EU/dL Ur Leukocyte Esterase Negative (NEGATIVE) Urine RBC None seen (0-2) #/HPF Urine WBC 0-2 A (NONE SEEN) #/HPF Ur Squamous Epith Cells Few A (NONE/RARE) #/LPF Urine Crystals None seen (None Seen) #/HPF Urine Bacteria Trace A (NONE SEEN) #/HPF Urine Casts None seen (NONE SEEN) #/LPF Urine Mucus Large A (NONE SEEN) Urine HCG, Qual Negative (NEGATIVE) Discharge Plan Discharge Chief Complaint: Urogenital-Female Clinical Impression: Vaginal discharge Patient Disposition: Home, Self-Care Time of Disposition Decision: 12:28 Condition: Good Mode of Transportation: Private Vehicle Prescriptions / Home Meds: No Action ibuprofen 800 mg tablet 800 mg PO Q8H PRN (Reason: Moderate Pain) Qty: 60 0RF Print Language: Turkmen Instructions: Vaginal Discharge (ED) Additional Instructions: Follow-up with Dr. Smith if no improvement. Referrals: Tong Beltran MD [Primary Care Provider, Family Practice] - 1 week
[2025-06-24 11:44] LABS: Glucose Urine UA NEGATIVE (NEGATIVE)
[2025-06-24 11:45] LABS: HCG Qualitative Urine* NEGATIVE (NEGATIVE)
[2025-06-24 12:16] LABS: Cast Seen? NONE SEEN #/LPF (NONE SEEN); Crystals Seen? None Seen #/HPF (None Seen)
[2025-06-24 12:26] VITALS: BP 102/63; PULSE 74; O2SAT 99
[2025-06-26 17:10] LABS: Neisseria gonorrhoeae, NAA Negative (Negative)
== END 2025-06-24 12:36 | disposition home or self-care (01) ==
PROVIDERS: Emergency Provider Emergency Medicine; PCP Family Medicine
DX: N89.8 Other specified noninflammatory disorders of vagina (principal)
CPT/HCPCS: 81001; 84703; 87210; 87491; 87591; 99283